=== PATIENT | female | born 1960 | race Caucasian/White ===

== ENCOUNTER 2023-08-13 06:57 | Inpatient (IN) | payer MEDICARE, MEDICAID, SELFPAY ==
[2023-08-13] VITALS (23 sets, daily range): BP systolic 108–165; BP diastolic 50–80; PULSE 79–137; RESP 19–30; TEMP 36.2–37.3; O2SAT 72–100; BMI 19.5; BMI 21.0
--- NOTE | ~2023-08-13 | CT_ITS ---
EXAMINATION: CT CHEST WITHOUT CONTRAST CLINICAL INFORMATION: Fever, increased white count. COMPARISON: None available. TECHNIQUE: Multidetector volumetric CT imaging of the chest was done. Axial MIP volume rendering provided. Sagittal and coronal reformatted images were obtained. This CT examination was performed using dose optimization techniques as appropriate, variously including the following: *Automated exposure control *Adjustment of mA and/or kV according to patient size (this includes techniques or standardized protocols for targeted exams where dose is matched to indication/reason for exam; i.e. extremities or head) *Use of iterative reconstruction technique DLP: 116 mGy-cm FINDINGS: FULL TIME STAFF INTERPRETER: Expanded lungs with bilateral pleural effusion and bilateral breast prosthesis. LUNGS: There is centrilobular emphysema most prominent in the upper lobes. There is scattered punctate calcifications in right lung. There is compressive atelectasis in both lung bases from underlying pleural effusion. MEDIASTINUM: Thyroid lobes are symmetric and normal. The central trachea and the bronchi widely patent. The heart size and the great vessels are normal caliber. No pericardial effusion seen. There is mitral valve and ascending aortic calcifications. CORONARY ARTERY CALCIFICATION: Mild coronary artery calcification present. PLEURA: There are bilateral moderate pleural effusions right greater than left with underlying atelectasis. AXILLA: No lymphadenopathy. There are bilateral breast prostheses with thick calcified capsule. UPPER ABDOMEN: Visualized liver, spleen, pancreas and bilateral adrenal glands unremarkable. OSSEOUS STRUCTURES: There are several osteoporotic deformities of thoracic vertebra with mild superior endplate edema of T2 vertebra likely acute compression. CT/CT chest wo IV con IMPRESSION: 1. Bilateral moderate pleural effusions right greater than left with underlying compressive atelectasis. 2. Centrilobular emphysema with scattered punctate calcifications in right lung. 3. No abnormal mediastinal or axillary lymphadenopathy. 4. Bilateral breast prostheses with thick calcified capsule. Fleischner guidelines were followed.
--- NOTE | ~2023-08-13 | XR_ITS ---
EXAMINATION: XR CHEST CLINICAL INFORMATION: Dyspnea COMPARISON: None available. TECHNIQUE: Frontal view of the chest was obtained. FINDINGS: Bilateral intramammary implants are present limiting the evaluation in the lower lung zones. There are no pertinent prior studies are available for comparison. Cardiomediastinal silhouette is not well assessed. Probable mild cardiomegaly. The lungs are hypoexpanded. Diffuse reticular interstitial markings are noted, indeterminate chronicity. No dense focal consolidation is seen. No pneumothorax. Multiple cardiac leads and wires overlie the chest. XR/XR chest 1V IMPRESSION: Somewhat limited evaluation. Diffuse reticular and interstitial prominence could be acute or chronic. In the acute setting findings may represent interstitial edema or interstitial pneumonitis. In the chronic settings, findings may reflect changes related to interstitial lung disease.
--- NOTE | 2023-08-13 07:00 | CA_ITS ---
Transthoracic Echocardiogram Patient (Last, First, Middle): Frances Wells, Gender: Female Date of : 1960 Age: 62 Procedure Date: 08/13/2023 Procedure Type: Transthoracic Echocardiogram Location: ICU Height: 152.4 cm Weight: 45.36 kg BSA: 1.39 m2 Heart Rate: bpm BP: 143 / 59 mmHg Cottage Attendant: Referring MD: Vimal Armendariz MD Symptoms: Congestive heart failure Study Quality: Fair but Adequate ECG Rhythm: Atrial Fibrillation Conclusions: - Normal left ventricular size, thickness, and systolic function. The visually estimated ejection fraction is between 60-65%. - Normal right ventricular cavity size. There is mildly decreased right ventricular systolic function. - The left atrium is severely dilated. - There is moderate aortic valve regurgitation. - There is moderate mitral valve regurgitation. - The right ventricular systolic pressure is 62 mmHg. Normal right atrial pressure. Severe pulmonary hypertension is present. Findings Left Ventricle Normal left ventricular size, thickness, and systolic function. The visually estimated ejection fraction is between 60-65%. There is no evidence of regional wall motion abnormalities. Diastolic function is indeterminate on the basis of available data. Right Ventricle Normal right ventricular cavity size. There is mildly decreased right ventricular systolic function. Atria The left atrium is severely dilated. Aortic Valve There is a normal trileaflet aortic valve. There is no aortic valve stenosis. There is moderate aortic valve regurgitation. Mitral Valve The mitral valve appears normal. There is moderate mitral valve regurgitation. There is no mitral valve stenosis. Pulmonic Valve The pulmonic valve is likely normal. Tricuspid Valve Normal tricuspid valve structure. There is mild tricuspid valve regurgitation. The right ventricular systolic pressure is 62 mmHg. Normal right atrial pressure. Severe pulmonary hypertension is present. Great Vessels All visible segments of the aorta are normal in size. The visualized portions of the pulmonary artery and branches are normal. Venous The inferior vena cava is normal in size and collapses greater than 50% with inspiration. Pericardium/Pleural There is no evidence of pericardial effusion. Prior Study Comparison No prior study available for comparison. Measurements 2D Linear Measurements IVSd: 0.84 0.6-0.9/0.6-1.0 cm LVIDd: 4.69 3.9-5.3/4.2-5.9 cm LVIDd Index: 3.37 2.4-3.2/2.2-3.1 cm/m2 LVIDs: 3.39 2.0-3.6 cm LVPWd: 0.84 0.7-1.1 cm Ao Root: 2.60 2.1-3.5 cm LA Diam: 4.80 2.7-3.8/3.0-4.0 cm LAIDs Index: 3.45 1.5-2.3 cm/m2 LV Mass: 161.78 67-162/88-224 g LV Mass Index: 116.39 43-95/49-115 g/m2 LVOT Diam: 1.90 3.0+(-)1.3 cm 2D Systolic Function EF 4C: 63.10 >55% EF 2C: 69.30 >55% EF BiP: 65.90 >55% Mitral Valve MV Pk E: 1.27 MV Decel Time: 211.00 E'Lateral: 8.92 E'Medial: 6.53 E/E' Med: 19.40 E/E' Lat: 14.20 PHT: 62.00 MVA PHT: 3.55 Decel Nolan: 6.02 Aortic Valve AoV Pk Luis: 1.67 AoV Mn Luis: 1.08 AoV VTI: 0.30 AoV Pk Grad: 11.00 Aov Mn Grad: 6.00 ELIZA Cont.VTI: 1.66 AI Pk Luis: 4.00 AI Nolan: 3.37 LVOT LVOT Pk Luis: 0.87 LVOT Mn Luis: 0.52 LVOT VTI: 0.18 LVOT Pk Grad: 3.00 LVOT Mn Grad: 1.00 LVOT Diam: 1.90 LVOT Area: 2.84 Diastolic Function MV Pk E: 1.27 E'Medial: 6.53 E/E' Med: 19.40 E' Laterial: 8.92 E/E' Lat: 14.20 Right Ventricle TAPSE (mm): 19.00 TVS' Luis: 9.00 Tricuspid Valve TR Pk Luis: 3.66 TR Pk Grad: 54.00 RA Press: 8.00 RVSP: 62.00 Great Vessels Aorta Ao Root-2D: 2.60 2.0-3.7 cm Ao Asc: 3.10 2.1-3.4 cm Pulmonary Valve PV Pk Luis: 0.99 Peak PV Grad: 4.00 Updated in Other Vendor System with Status of Final Estevan Aiken MD electronically signed on 08/14/2023 12:57:43 PM with status of Final
--- NOTE | 2023-08-13 07:08 | ECG_ITS ---
Test Reason : dyspnea Blood Pressure : / mmHG Vent. Rate : 095 BPM Atrial Rate : 000 BPM P-R Int : 000 ms QRS Dur : 094 ms QT Int : 352 ms P-R-T Axes : 000 047 213 degrees QTc Int : 442 ms Atrial fibrillation RSR' or QR pattern in V1 suggests right ventricular conduction delay ST & T wave abnormality, consider inferolateral ischemia Abnormal ECG No previous ECGs available Referred By: Aleksander Mckeon Electronically Signed By:MUNIR PRATHER MD
--- NOTE | 2023-08-13 07:11 | ED.SOB ---
HPI - SOB/Dyspnea General Chief Complaint: Upper Respiratory Symptoms Stated Complaint: RESPIRATORY DISTRESS Time Seen by Provider: 08/13/23 07:05 Source: EMS and RN notes reviewed Mode of arrival: ambulatory Limitations: altered mental status History of Present Illness HPI Narrative: 62-year-old female never been to this hospital in the past presents to the emergency department via EMS in respiratory distress. Patient is on CPAP. Per EMS patient is a full code he is at the her nursing facility due to respiratory failure. Per the EMS patient has history of COPD was given some breathing treatments and CPAP EN route. Breathing rate did slow down but continues to difficulty breathing on arrival here there are no previous records reviewed the only report we have from the residential is that she is a full code. Patient is unable to give us any history she is grabbing the mask is otherwise out of it. MD elicited complaint: shortness of breath Related Data Allergies Allergy/AdvReac Type Severity Reaction Status Date / Time codeine Allergy Intermediate Anaphylaxis Unverified 08/13/23 07:06 Review of Systems Review of Systems: Unable to obtain Yes Unobtainable due to mental condition [facility] Social History Social History Advance Directives: No Physical Exam Vital Signs: Vital Signs: Last Vital Signs Temp 99.1 F 08/13/23 07:02 Pulse 120 H 08/13/23 10:31 Resp 22 H 08/13/23 10:31 BP 129/50 L 08/13/23 10:31 Pulse Ox 90 L 08/13/23 10:31 O2 Del Method Nasal Cannula 08/13/23 10:31 O2 Flow Rate 2 08/13/23 10:31 FiO2 30 08/13/23 09:18 BMI result Body Mass Index 19.5 General: Thin ill-appearing moderate to severe signs of distress HEENT: Normocephalic atraumatic Neck: No signs of JVD, no masses no tenderness or lymphadenopathy Cardiovascular: Regular rate and rhythm Respiratory: Clear to auscultation bilaterally Abdomen: Soft nontender no masses Extremities: Normal pedal pulses no signs of edema Skin: Dry warm no rashes Back: No tenderness full ROM Skin: Other: Course Course Course Narrative: Patient are not dramatically after approximately 30 minutes patient continues to look better multiple re-evaluations of 1 hour initial ABG showed pCO2 of 100 again her repeat ABG on consult the ICU. Patient does have a history of CHF which was not disclose when patient arrived here I will give dose of Lasix patient's labs are still pending at this time. Patinet continued to improve repeat ABG is improved. Accepted by the hospitalist service. Medications Administered Discontinued Medications Generic Name Dose Route Start Last Admin Trade Name Juana PRN Reason Stop Dose Admin Albuterol Sulfate 10 mg 08/13/23 07:08 08/13/23 07:49 Albuterol Sulfate 2.5 Mg/0.5 Ml Vial.Neb INHALE 08/13/23 07:09 Not Given ONCE ONE Albuterol Sulfate 7.5 mg/ 10 mg 08/13/23 07:41 08/13/23 07:48 Albuterol Sulfate 2.5 mg INHALE 08/13/23 07:42 10 mg ONCE ONE Administration Furosemide 40 mg 08/13/23 08:15 08/13/23 09:07 Furosemide 40 Mg/4 Ml Vial IVPUSH 08/13/23 08:16 40 mg ONCE ONE Administration Protocol Vancomycin HCl 1,000 mg/ 270 mls @ 270 mls/hr 08/13/23 07:37 08/13/23 09:18 Sodium Chloride IV 08/13/23 08:36 270 mls/hr ONCE ONE Administration Cefepime HCl 1 gm/ Sodium 50 mls @ 100 mls/hr 08/13/23 07:37 08/13/23 08:23 Chloride IV 08/13/23 08:06 100 mls/hr ONCE ONE Administration Methylprednisolone Sodium Succinate 125 mg 08/13/23 07:08 08/13/23 07:38 Methylprednisolone Sod Succ 125 Mg/2 Ml Vial IVPUSH 08/13/23 07:09 125 mg ONCE ONE Administration Medical Decision Making Medical Decision Making [facility] Narrative: I will continue patient on BiPAP immediately on arrival again the region repeat ABG after 40 minutes patient is awake enough to grab at the mask Differential Diagnosis Differential Diagnoses: The differential diagnosis associated with the presentation includes COPD CHF respiratory failure concerns for dyspnea hypoxia altered mental status Admission/Observation Consideration of admission/observation: Escalation of care including admission/observation considered patient required ICU level care at a minimum Will need to be admitted. Consult Healthcare Provider Management of the patient was discussed with: Hospitalist and Fan Balancer I spoke Lab Data [facility] Lab Attestation statement: I reviewed the patient's lab results. 08/13/23 08:42 08/13/23 08:05 Labs: Lab Results 08/13/23 08/13/23 08/13/23 Range/Units 07:23 07:45 08:05 WBC (4.8-10.8) X10*3/uL RBC (4.20-5.50) X10*6/uL Hgb (12.0-16.0) g/dl Hct (37.0-47.0) % MCV (80.0-98.0) fL MCH (27.0-33.0) pg MCHC (31.0-35.0) g/dl RDW (11.0-16.0) % Plt Count (160-400) X10*3/uL MPV (9.4-12.3) fL Immature Gran % (Auto) Neut % (Auto) Lymph % (Auto) [place] % (Auto) Eos % (Auto) Baso % (Auto) Lymph # (Auto) [place] # (Auto) Eos # (Auto) Baso # (Auto) Abs Immat Gran (auto) Absolute Neuts (auto) Absolute Nucleated RBC (0.0-0.012) X10*3/uL Nucleated RBC % (auto) (0.0-0.2) /100WBC Neutrophils % (Manual) (45-73) % Band Neutrophils % (3-5) % Lymphocytes % (Manual) (20-40) % Atypical Lymphs % (Man) (0-6) % Monocytes % (Manual) (2-11) % Metamyelocytes % % Myelocytes % % Abs Neuts (Manual) (2.0-8.3) X10*3/uL Lymphocytes # (Manual) (1.2-4.9) X10*3/uL Atyp Lymphs # (Manual) x10*3/uL Monocytes # (Manual) (0.1-1.2) X10*3/uL Metamyelocytes # X10*3/uL Myelocytes # X10*/uL Platelet Estimate (NORMAL) Plt Morphology Comment RBC Morphology Polychromasia /OIF Macrocytosis /OIF Ovalocytes /OIF [place] Cells /OIF Acanthocytes (Spur) /OIF APTT (26.0-36.4) SEC O2 Saturation 100.0 % ABG pH at Pt Temp 7.27 L (7.35-7.45) ABG pCO2 at Pt Temp 107 H* (32-45) mmHg ABG pO2 at Pt Temp 274 H (83-108) mmHg ABG HCO3 49 H (22-26) mmol/L ABG Base Excess (Actual) 17.8 mmol/L Sodium 135 (135-145) mmol/L Potassium 3.7 (3.3-5.1) mmol/L Chloride 87 L (96-108) mmol/L Carbon Dioxide 39 H (22-29) mmol/L Anion Gap 13 (12-20) BUN 9 (9-16) mg/dL Creatinine 0.52 (0.5-1.4) mg/dL Estim Creat Clear Calc 78.2 Estimated GFR > 60 Random Glucose 166 H (60-115) mg/dL Lactic Acid 0.9 (0.5-2.0) mmol/L Calcium 9.1 (8.4-10.2) mg/dL Total Bilirubin 0.6 (0.0-1.0) mg/dL Direct Bilirubin 0.3 (0.0-0.5) mg/dL AST 17 (5-31) U/L ALT 15 (0-31) U/L Alkaline Phosphatase 111 (39-117) U/L Troponin I High Sens 13.5 (<3.5-17.0) ng/L B-Natriuretic Peptide (<100) pg/mL Total Protein 5.7 L (6.5-8.0) g/dL Albumin 3.3 L (3.5-5.0) g/dL Lipase 7 L (8-78) U/L Influenza Type A (PCR) NEGATIVE (Negative) Influenza Type B (PCR) NEGATIVE (Negative) RSV RNA Qual (PCR) NEGATIVE (Negative) SARS-CoV-2 RNA (RT-PCR) NEGATIVE (Negative) 08/13/23 08/13/23 Range/Units 08:42 10:56 WBC 16.8 H (4.8-10.8) X10*3/uL RBC 3.37 L (4.20-5.50) X10*6/uL Hgb 10.1 L (12.0-16.0) g/dl Hct 32.6 L (37.0-47.0) % MCV 96.7 (80.0-98.0) fL MCH 30.0 (27.0-33.0) pg MCHC 31.0 (31.0-35.0) g/dl RDW 13.6 (11.0-16.0) % Plt Count 365 (160-400) X10*3/uL MPV 9.3 L (9.4-12.3) fL Immature Gran % (Auto) Cancelled Neut % (Auto) Cancelled Lymph % (Auto) Cancelled [place] % (Auto) Cancelled Eos % (Auto) Cancelled Baso % (Auto) Cancelled Lymph # (Auto) Cancelled [place] # (Auto) Cancelled Eos # (Auto) Cancelled Baso # (Auto) Cancelled Abs Immat Gran (auto) Cancelled Absolute Neuts (auto) Cancelled Absolute Nucleated RBC 0.000 (0.0-0.012) X10*3/uL Nucleated RBC % (auto) 0.0 (0.0-0.2) /100WBC Neutrophils % (Manual) 77 H (45-73) % Band Neutrophils % 14 H (3-5) % Lymphocytes % (Manual) 4 L (20-40) % Atypical Lymphs % (Man) 1 (0-6) % Monocytes % (Manual) 2 (2-11) % Metamyelocytes % 1 % Myelocytes % 1 % Abs Neuts (Manual) 15.3 H (2.0-8.3) X10*3/uL Lymphocytes # (Manual) 0.7 L (1.2-4.9) X10*3/uL Atyp Lymphs # (Manual) 0.2 x10*3/uL Monocytes # (Manual) 0.3 (0.1-1.2) X10*3/uL Metamyelocytes # 0.2 X10*3/uL Myelocytes # 0.2 X10*/uL Platelet Estimate NORMAL (NORMAL) Plt Morphology Comment NORMAL RBC Morphology NOTED Polychromasia 3+ (>5) /OIF Macrocytosis 1+ (5-14) /OIF Ovalocytes 1+ (5-14) /OIF Taylor Cells 1+ (0-2) /OIF Acanthocytes (Spur) 1+ (0-2) /OIF APTT 26.9 (26.0-36.4) SEC O2 Saturation 87.0 % ABG pH at Pt Temp 7.50 H (7.35-7.45) ABG pCO2 at Pt Temp 67 H* (32-45) mmHg ABG pO2 at Pt Temp 57 L (83-108) mmHg ABG HCO3 52 H (22-26) mmol/L ABG Base Excess (Actual) 25.0 mmol/L Sodium (135-145) mmol/L Potassium (3.3-5.1) mmol/L Chloride (96-108) mmol/L Carbon Dioxide (22-29) mmol/L Anion Gap (12-20) BUN (9-16) mg/dL Creatinine (0.5-1.4) mg/dL Estim Creat Clear Calc Estimated GFR Random Glucose (60-115) mg/dL Lactic Acid (0.5-2.0) mmol/L Calcium (8.4-10.2) mg/dL Total Bilirubin (0.0-1.0) mg/dL Direct Bilirubin (0.0-0.5) mg/dL AST (5-31) U/L ALT (0-31) U/L Alkaline Phosphatase (39-117) U/L Troponin I High Sens (<3.5-17.0) ng/L B-Natriuretic Peptide 723 H (<100) pg/mL Total Protein (6.5-8.0) g/dL Albumin (3.5-5.0) g/dL Lipase (8-78) U/L Influenza Type A (PCR) (Negative) Influenza Type B (PCR) (Negative) RSV RNA Qual (PCR) (Negative) SARS-CoV-2 RNA (RT-PCR) (Negative) ABG Data ABG Results: Patient will 14 with pCO2 of 107 though this is fairly compensated she likely has some chronic elevation in her pCO2 I do not think it will ever be normal as her pH is 7.2 Attestation ABG: I personally reviewed and interpreted this ABG as follows: Independent Interpretation I performed an independent interpretation of an: EKG, Rhythm Strip and Plain X-Ray Interpretation: XR concerning for pneumonia vs bronchectesis I will give some cefepime and vancomycin. Radiology Impression Discussion of test interpretation with radiology: I have reviewed the radiologist's reading. External Record Review there are no previous records to review Critical Care Time Critical Care Time Critical Care Time: Yes Total Critical Care Time: 50 Attestation: concern for respiratory distress with acute on chronic hypercarbic respiratory failure patient did improve on BiPAP. Multiple conversations with ICU Dr. Armendariz and repeat ABG Discharge Plan Discharge Clinical Impression: Acute respiratory failure with hypoxia and hypercarbia, Acute exacerbation of chronic obstructive pulmonary disease, Acute exacerbation of CHF (congestive heart failure), Decubitus ulcer of back, stage 3 Patient Disposition: Admitted As Inpatient
[2023-08-13 07:27] LABS: ABG Base Excess 17.8 mmol/L; ABG HCO3 49 mmol/L (22-26); ABG pCO2 107 mmHg (32-45); ABG pH 7.27 (7.35-7.45); ABG pO2 274 mmHg (83-108)
[2023-08-13] MEDS: methylPREDNISolone Sod Succ 125 MG/2 ML VIAL IVPUSH (07:38)
[2023-08-13] MEDS: Albuterol Sulfate 7.5 MG, Albuterol Sulfate (0.083%) 2.5 MG 10 MG INHALE (07:48)
[2023-08-13] MEDS: cefEPime HCl 1 GM in 0.9 % Sodium Chloride 50 ML IV (08:23)
[2023-08-13 08:28] LABS: Lactic Acid 0.9 mmol/L (0.5-2.0)
[2023-08-13 08:29] LABS: Alanine Aminotransferase 15 U/L (0-31); Albumin Level 3.3 g/dL (3.5-5.0); Alkaline Phosphatase 111 U/L (39-117); Anion Gap 13 (12-20); Aspartate Amino Transferase 17 U/L (5-31); Bilirubin Direct 0.3 mg/dL (0.0-0.5); Bilirubin Total 0.6 mg/dL (0.0-1.0); Blood Urea Nitrogen 9 mg/dL (9-16); Calcium 9.1 mg/dL (8.4-10.2); Carbon Dioxide 39 mmol/L (22-29); Chloride 87 mmol/L (96-108); Creatinine Clr Calc Pharmacy 78.2; Estimated Glomerular Filt Rate > 60; Glucose Random 166 mg/dL (60-115); Lipase 7 U/L (8-78); Potassium 3.7 mmol/L (3.3-5.1); Sodium 135 mmol/L (135-145); Total Protein 5.7 g/dL (6.5-8.0)
[2023-08-13 08:36] LABS: Troponin-I High Sensitivity 13.5 ng/L (<3.5-17.0)
[2023-08-13 08:50] LABS: Hematocrit 32.6 % (37.0-47.0); Hemoglobin 10.1 g/dl (12.0-16.0); Mean Corpuscular Volume 96.7 fL (80.0-98.0); Mean Platelet Volume 9.3 fL (9.4-12.3); Platelet Count 365 X10*3/uL (160-400); Red Blood Count 3.37 X10*6/uL (4.20-5.50); Red Cell Distribution Width 13.6 % (11.0-16.0); White Blood Count 16.8 X10*3/uL (4.8-10.8)
[2023-08-13 08:52] LABS: Influenza A PCR NEGATIVE (Negative); Influenza B PCR NEGATIVE (Negative); Resp Syncy Virus RNA Qual PCR NEGATIVE (Negative); SARS COV2 PCR INHOUSE NEGATIVE (Negative)
[2023-08-13 08:57] LABS: Partial Thromboplastin Time 26.9 SEC (26.0-36.4)
[2023-08-13] MEDS: Furosemide 40 MG/4 ML VIAL IVPUSH (09:07)
[2023-08-13] MEDS: vancomycin HCL 1,000 MG in 0.9 % Sodium Chloride 250 ML 270 MG IV (09:18)
[2023-08-13 09:20] LABS: B Type Natriuretic Peptide 723 pg/mL (<100)
[2023-08-13 09:43] LABS: Atypical Lymph Absolute Manual 0.2 x10*3/uL; Atypical Lymphs Percent Manual 1 % (0-6); Lymphocytes Absolute Manual 0.7 X10*3/uL (1.2-4.9); Lymphocytes Percent Manual 4 % (20-40); Metamyelocytes Absolute 0.2 X10*3/uL; Metamyelocytes Percent 1 %; Monocytes Absolute Manual 0.3 X10*3/uL (0.1-1.2); Monocytes Percent Manual 2 % (2-11); Myelocytes Absolute 0.2 X10*/uL; Myelocytes Percent 1 %; Neutrophils Absolute Manual 15.3 X10*3/uL (2.0-8.3); Neutrophils Percent Manual 77 % (45-73)
[2023-08-13 09:46] LABS: Acanthocytes 1+ (0-2) /OIF; Burr Cells 1+ (0-2) /OIF; Macrocytosis 1+ (5-14) /OIF; Ovalocytes 1+ (5-14) /OIF; Platelet Estimate NORMAL (NORMAL); Platelet Morphology Comment NORMAL; Polychromasia 3+ (>5) /OIF; RBC Morphology NOTED
[2023-08-13 09:50] LABS: Band Neutrophils Percent 14 % (3-5)
--- NOTE | 2023-08-13 09:53 | PC.NURSE ---
alert, denies sob, eating a sandwich, pudding and her ensure, afib on monitor, spo2 88 on 6lpm nc
--- NOTE | 2023-08-13 10:29 | PC.NURSE ---
afib on monitor. alert spo2 went up to 99% on the 6lpm and reduced to 2 lpm w spo2 now at 90%, vp scientific affairs to bedside and will repeat abg and make decision on admitting unit
[2023-08-13 10:44] LABS: ABG Refer to POC result
--- NOTE | 2023-08-13 10:49 | PC.NURSE ---
pt spo2 goes down with minimal movement or when eating currently with nad, repeat abg being done now
[2023-08-13 11:03] LABS: ABG HCO3 52 mmol/L (22-26); ABG pCO2 67 mmHg (32-45); ABG pO2 57 mmHg (83-108)
--- NOTE | 2023-08-13 12:05 | PM.CCN ---
Critical Care Event Note Summary Date of Service: 08/13/23 Code activated: No Narrative: 62 y/o been evaluated in ER with dyspnea and hypoxia. Initially with iatrogenic hyperoxia induced hypercapnia, resolved with brief bipap support (now titrated off) and maintaining O2 saturation at 88-92%. Also, with significant exacerbation of underlying congestive heart failure with elevated BNP, requiring further diuresis with acetazolamide, as patient is a chronic CO2 retainer. At this time patient does not require intensive care level of service. Please notify for re-evaluation if patient's condition changes. Please maintain O2 saturation at 88-92% range, no higher than 92%. Critical Care Time (minutes): 0
--- NOTE | 2023-08-13 12:32 | P.HPHOSP_ITS ---
History of Present Illness Date of Service: 08/13/23 Attending physician on admission: Abraham Gupta Chief Complaint: sob 62-year-old female with history of COPD and osteoporosis who is a former smoker who recently quit smoking cigarettes about 2 months ago presented to the ED earlier today for evaluation of dyspnea ongoing for about 3-4 days. She states for about 1 week she has had subjective fevers and chills with sore throat. Has productive cough with yellow sputum production but states this is her baseline. About 3-4 days ago developed worsening shortness of breath, dyspnea with exertion and orthopnea. [facility] Medical History (Updated 08/13/23 @ 12:52 by CHEPE Cruz) COPD (chronic obstructive pulmonary disease) Osteoporosis Social History Advance Directives: No Meds Allergies Allergy/AdvReac Type Severity Reaction Status Date / Time codeine Allergy Intermediate Anaphylaxis Unverified 08/13/23 07:06 Active Medications: Current Medications Albuterol/Ipratropium (Albuterol/Iprat 2.5/0.5mg 3 Ml Ampul.Neb) 3 ml INHALE RQ6H WHILE AWAKE PENDING SALE TO [facility] Heparin Sodium (Porcine) (Heparin Sodium,Porcine 5,000 Unit/Ml Vial) 5,000 unit SUBCUT Q8H PENDING SALE TO [facility] Home Medications Medication Instructions Recorded Confirmed Last Taken Type acetaminophen 325 mg tablet 650 mg PO Q6H PRN temp > 08/13/23 08/13/23 Unknown History 100/general discomfort apixaban 5 mg tablet 5 mg PO BID 08/13/23 08/13/23 Unknown History aspirin 81 mg tablet,delayed 81 mg PO DAILY 08/13/23 08/13/23 Unknown History release atorvastatin 20 mg tablet 20 mg PO BEDTIME 08/13/23 08/13/23 Unknown History bisacodyl 10 mg rectal suppository 10 mg DC Q3D PRN Constipation 08/13/23 08/13/23 Unknown History (Dulcolax (bisacodyl)) cholecalciferol (vitamin D3) 25 25 mcg PO DAILY 08/13/23 08/13/23 Unknown History mcg (1,000 unit) tablet digoxin 250 mcg (0.25 mg) tablet 250 mcg PO DAILY 08/13/23 08/13/23 Unknown History diltiazem HCl 180 mg 180 mg PO DAILY 08/13/23 08/13/23 Unknown History tablet,extended release 24 hr (Cardizem LA) fluticasone 250 mcg-salmeterol 50 1 inh inhalation BID 08/13/23 08/13/23 Unknown History mcg/dose blistr powdr for inhalation (Advair Diskus) folic acid 1 mg tablet 1 mg PO DAILY 08/13/23 08/13/23 Unknown History furosemide 40 mg tablet 40 mg PO DAILY 08/13/23 08/13/23 Unknown History gabapentin 300 mg capsule 600 mg PO TID 08/13/23 08/13/23 Unknown History guaifenesin 100 mg/5 mL oral liquid 200 mg PO Q8H PRN Cough 08/13/23 08/13/23 Unknown History hydroxyzine HCl 10 mg tablet 30 mg PO TID PRN Anxiety 08/13/23 08/13/23 Unknown History ipratropium 0.5 mg-albuterol 3 mg 3 ml inhalation Q6H PRN SHORTNESS 08/13/23 08/13/23 Unknown History (2.5 mg base)/3 mL nebulization OF BREATH/WHEEZE soln lactulose 10 gram/15 mL oral 20 g PO Q12H PRN Constipation 08/13/23 08/13/23 Unknown History solution lorazepam 0.5 mg tablet 0.5 mg PO BID PRN Anxiety 08/13/23 08/13/23 Unknown History magnesium hydroxide 400 mg/5 mL 30 ml PO BEDTIME PRN Constipation 08/13/23 08/13/23 Unknown History oral suspension (Milk of Magnesia) melatonin 3 mg tablet 3 mg PO BEDTIME 08/13/23 08/13/23 Unknown History metoprolol succinate 50 mg 50 mg PO BID 08/13/23 08/13/23 Unknown History tablet,extended release 24 hr sodium phosphates 19 gram-7 118 ml DC DAILY PRN Constipation 08/13/23 08/13/23 Unknown History gram/118 mL enema (Fleet Enema) umeclidinium 62.5 mcg/actuation 1 inh inhalation DAILY 08/13/23 08/13/23 Unknown History blister powder for inhalation (Incruse Ellipta) Physical Exam 2 Vital Signs and Narrative: Vital Signs: Last Vital Signs Temp 97.6 F 08/13/23 11:57 Pulse 107 H 08/13/23 11:57 Resp 22 H 08/13/23 12:17 BP 143/59 H 08/13/23 11:57 Pulse Ox 93 08/13/23 11:57 O2 Del Method Nasal Cannula 08/13/23 11:57 O2 Flow Rate 5 08/13/23 11:57 FiO2 30 08/13/23 09:18 BMI result Body Mass Index 19.5 Results Labs 08/13/23 08:42 08/13/23 08:05 Labs: Laboratory Results - last 24 hr 08/13/23 08/13/23 08/13/23 07:23 07:45 08:05 MCV MCH MCHC RDW Plt Count MPV Immature Gran % (Auto) Neut % (Auto) Lymph % (Auto) [place] % (Auto) Eos % (Auto) Baso % (Auto) Lymph # (Auto) [place] # (Auto) Eos # (Auto) Baso # (Auto) Abs Immat Gran (auto) Absolute Neuts (auto) Absolute Nucleated RBC Nucleated RBC % (auto) Neutrophils % (Manual) Band Neutrophils % Lymphocytes % (Manual) Atypical Lymphs % (Man) Monocytes % (Manual) Metamyelocytes % Myelocytes % Abs Neuts (Manual) Lymphocytes # (Manual) Atyp Lymphs # (Manual) Monocytes # (Manual) Metamyelocytes # Myelocytes # Platelet Estimate Plt Morphology Comment RBC Morphology Polychromasia Macrocytosis Ovalocytes Taylor Cells Acanthocytes (Spur) APTT O2 Saturation 100.0 ABG pH at Pt Temp 7.27 L ABG pCO2 at Pt Temp 107 H* ABG pO2 at Pt Temp 274 H ABG HCO3 49 H ABG Base Excess (Actual) 17.8 Anion Gap 13 Estim Creat Clear Calc 78.2 Estimated GFR > 60 Random Glucose 166 H Lactic Acid 0.9 Calcium 9.1 Total Bilirubin 0.6 Direct Bilirubin 0.3 AST 17 ALT 15 Alkaline Phosphatase 111 B-Natriuretic Peptide Total Protein 5.7 L Albumin 3.3 L Lipase 7 L Influenza Type A (PCR) NEGATIVE Influenza Type B (PCR) NEGATIVE RSV RNA Qual (PCR) NEGATIVE SARS-CoV-2 RNA (RT-PCR) NEGATIVE 08/13/23 08/13/23 08:42 10:56 MCV 96.7 MCH 30.0 MCHC 31.0 RDW 13.6 Plt Count 365 MPV 9.3 L Immature Gran % (Auto) Cancelled Neut % (Auto) Cancelled Lymph % (Auto) Cancelled [place] % (Auto) Cancelled Eos % (Auto) Cancelled Baso % (Auto) Cancelled Lymph # (Auto) Cancelled [place] # (Auto) Cancelled Eos # (Auto) Cancelled Baso # (Auto) Cancelled Abs Immat Gran (auto) Cancelled Absolute Neuts (auto) Cancelled Absolute Nucleated RBC 0.000 Nucleated RBC % (auto) 0.0 Neutrophils % (Manual) 77 H Band Neutrophils % 14 H Lymphocytes % (Manual) 4 L Atypical Lymphs % (Man) 1 Monocytes % (Manual) 2 Metamyelocytes % 1 Myelocytes % 1 Abs Neuts (Manual) 15.3 H Lymphocytes # (Manual) 0.7 L Atyp Lymphs # (Manual) 0.2 Monocytes # (Manual) 0.3 Metamyelocytes # 0.2 Myelocytes # 0.2 Platelet Estimate NORMAL Plt Morphology Comment NORMAL RBC Morphology NOTED Polychromasia 3+ (>5) Macrocytosis 1+ (5-14) Ovalocytes 1+ (5-14) [place] Cells 1+ (0-2) Acanthocytes (Spur) 1+ (0-2) APTT 26.9 O2 Saturation 87.0 ABG pH at Pt Temp 7.50 H ABG pCO2 at Pt Temp 67 H* ABG pO2 at Pt Temp 57 L ABG HCO3 52 H ABG Base Excess (Actual) 25.0 Anion Gap Estim Creat Clear Calc Estimated GFR Random Glucose Lactic Acid Calcium Total Bilirubin Direct Bilirubin AST ALT Alkaline Phosphatase B-Natriuretic Peptide 723 H Total Protein Albumin Lipase Influenza Type A (PCR) Influenza Type B (PCR) RSV RNA Qual (PCR) SARS-CoV-2 RNA (RT-PCR) Imaging Radiologist's Impressions: Impressions Chest X-Ray 08/13/23 07:33 IMPRESSION: Somewhat limited evaluation. Diffuse reticular and interstitial prominence could be acute or chronic. In the acute setting findings may represent interstitial edema or interstitial pneumonitis. In the chronic settings, findings may reflect changes related to interstitial lung disease. Assessment and Plan Time Spent With Patient Time: Total time managing care of this patient today ____ minutes. Quality VTE VTE Risk Level:: Medical - moderate - high VTE Device Contraindication: Treatment Not Indicated VTE Drug Contraindication: N/A - Med Ordered
[2023-08-13] MEDS: acetaZOLAMIDE sodium 500 MG VIAL IVPUSH (12:47)
--- NOTE | 2023-08-13 13:04 | PHA.MEDREC ---
Pharmacy Consult ? Medication Reconciliation Pharmacy has completed the medication reconciliation. Used list from [facility]
--- NOTE | 2023-08-13 14:21 | P.HPCC_ITS ---
History of Present Illness Date of Service: 08/13/23 Chief Complaint: Dyspnea 62-year-old lady with underlying COPD with CO2 retention on supplemental oxygen at 2 L, AFib/Aflutter on Eliquis diastolic heart failure compression fracture of thoracic vertebra admitted on 08/13/2023 with dyspnea and acute on chronic respiratory failure initially requiring BiPAP support. Patient has been admitted to intensive care unit and started on diuresis with acetazolamide. Patient now titrated off BiPAP support. Review of Systems 2 Constitutional: Constitutional: Denies daytime sleepiness, Denies excessive sweating, Denies fatigue, Denies fever(s), Denies lethargy, Denies malaise, Denies night sweats, Denies snoring and Denies weight loss Eyes: Eyes: Denies blurry vision and Denies itchy eyes ENT: Denies nasal congestion, Denies post nasal drip, Denies sinus pain, Denies sinus pressure and Denies other ( Thrush) Cardiovascular: Cardiovascular: Denies chest pain, Denies pedal edema, Reports dyspnea, Reports dyspnea on exertion, Denies orthopnea and Denies paroxysmal nocturnal dyspnea Respiratory: Respiratory: Denies cough, Denies hemoptysis, Denies excessive phlegm production, Reports dyspnea, Reports dyspnea on exertion, Denies snoring and Denies wheezing Gastrointestinal: Gastrointestinal: Denies abdominal pain and Denies heartburn Musculoskeletal: Musculoskeletal: Denies myalgias, Denies arthralgias and Denies joint swelling Integumentary/Breasts: Skin/Breast: Denies rash Neurologic: Denies memory loss and Denies seizure-like activity Psychiatric: Psychiatric: Denies abnormal sleep pattern, Denies anxiety and Denies memory loss Endocrine: Endocrine: Denies excessive sweating, Denies fatigue and Denies heat intolerance Hematologic/Lymphatic: Hematologic/Lymphatic: Denies easy bruising Allergic/Immunologic: Allergic/Immunologic: Denies itchy eyes, Denies seasonal rhinorrhea and Denies wheezing PMFSH Past Medical History Medical History (Updated 08/13/23 @ 14:43 by Vimal Armendariz MD) Oxygen dependent History of chronic carbon dioxide retention Compression fracture of thoracic vertebra Breast implant status CHF (congestive heart failure) Pressure ulcer COPD (chronic obstructive pulmonary disease) Osteoporosis Social History Social History Household Members: Other Housing: Jail Patient Tobacco Use Status: Former Tobacco user Tobacco use type: Cigarette Use of substances other than those prescribed or required for medical reasons: No Have you been hit, kicked, punched, or otherwise hurt by someone within the past year? If so, by whom?: No Do you feel safe in your current relationship?: Yes Is there a partner from a previous relationship who is making you feel unsafe now?: No Are you made to feel afraid or neglected: No Spiritual Healthcare Practices: n/a [facility] Practices: n/a Cultural Healthcare Practices: n/a Advance Directives: No Advance Directives Information Provided: Yes (MOLST ON FILE) Do you have thoughts of harming others: None Do you have a plan to hurt others: No Plan Recently lost weight without trying: Yes How much weight loss: Unsure Eating poorly because of decreased appetite: Yes Nutrition screen score: 5 Nutrition Risks: On aspiration precautions Patient : No : No Meds Allergies Allergy/AdvReac Type Severity Reaction Status Date / Time codeine Allergy Intermediate Anaphylaxis Verified 08/13/23 14:29 morphine Allergy Anaphylaxis Verified 08/13/23 14:21 Active Medications: Current Medications Albuterol/Ipratropium (Albuterol/Iprat 2.5/0.5mg 3 Ml Ampul.Neb) 3 ml INHALE RQ6H WHILE AWAKE [facility] Digoxin (Digoxin 0.25 Mg Tablet) 0.25 mg PO DAILY [facility] Diltiazem HCl (Diltiazem Hcl Cd 180 Mg Cap.Er.24h) 180 mg PO DAILY [facility]; Protocol Heparin Sodium (Porcine) (Heparin Sodium,Porcine 5,000 Unit/Ml Vial) 5,000 unit SUBCUT Q8H [facility] Home Medications Medication Instructions Recorded Confirmed Last Taken Type acetaminophen 325 mg tablet 650 mg PO Q6H PRN temp > 08/13/23 08/13/23 Unknown History 100/general discomfort albuterol sulfate 90 mcg/actuation 1 inh inhalation QID PRN Wheezing 08/13/23 08/13/23 Unknown History aerosol inhaler (Ventolin HFA) apixaban 5 mg tablet 5 mg PO BID 08/13/23 08/13/23 Unknown History aspirin 81 mg tablet,delayed 81 mg PO DAILY 08/13/23 08/13/23 Unknown History release atorvastatin 20 mg tablet 20 mg PO BEDTIME 08/13/23 08/13/23 Unknown History bisacodyl 10 mg rectal suppository 10 mg IN Q3D PRN Constipation 08/13/23 08/13/23 Unknown History (Dulcolax (bisacodyl)) cholecalciferol (vitamin D3) 25 25 mcg PO DAILY 08/13/23 08/13/23 Unknown History mcg (1,000 unit) tablet collagenase clostridium histo. 250 1 appl topical DAILY 08/13/23 08/13/23 Unknown History unit/gram topical ointment (Santyl) digoxin 250 mcg (0.25 mg) tablet 250 mcg PO DAILY 08/13/23 08/13/23 Unknown History diltiazem HCl 180 mg 180 mg PO DAILY 08/13/23 08/13/23 Unknown History tablet,extended release 24 hr (Cardizem LA) fluticasone 250 mcg-salmeterol 50 1 inh inhalation BID 08/13/23 08/13/23 Unknown History mcg/dose blistr powdr for inhalation (Advair Diskus) folic acid 1 mg tablet 1 mg PO DAILY 08/13/23 08/13/23 Unknown History furosemide 40 mg tablet 40 mg PO DAILY 08/13/23 08/13/23 Unknown History gabapentin 300 mg capsule 600 mg PO TID 08/13/23 08/13/23 Unknown History guaifenesin 100 mg/5 mL oral liquid 200 mg PO Q8H PRN Cough 08/13/23 08/13/23 Unknown History hydroxyzine HCl 10 mg tablet 30 mg PO TID PRN Anxiety 08/13/23 08/13/23 Unknown History ipratropium 0.5 mg-albuterol 3 mg 3 ml inhalation Q6H PRN SHORTNESS 08/13/23 08/13/23 Unknown History (2.5 mg base)/3 mL nebulization OF BREATH/WHEEZE soln lactulose 10 gram/15 mL oral 20 g PO Q12H PRN Constipation 08/13/23 08/13/23 Unknown History solution lorazepam 0.5 mg tablet 0.5 mg PO BID PRN Anxiety 08/13/23 08/13/23 Unknown History magnesium hydroxide 400 mg/5 mL 30 ml PO BEDTIME PRN Constipation 08/13/23 08/13/23 Unknown History oral suspension (Milk of Magnesia) melatonin 3 mg tablet 3 mg PO BEDTIME 08/13/23 08/13/23 Unknown History metoprolol succinate 50 mg 50 mg PO BID 08/13/23 08/13/23 Unknown History tablet,extended release 24 hr multivitamin 1 tab PO DAILY 08/13/23 08/13/23 Unknown History nicotine 21 mg/24 hr daily 1 patch transdermal DAILY 08/13/23 08/13/23 Unknown History transdermal patch oxycodone 5 mg tablet 2.5 mg PO Q6H PRN Pain 08/13/23 08/13/23 Unknown History pantoprazole 40 mg tablet,delayed 40 mg PO DAILY 08/13/23 08/13/23 Unknown History release (Protonix) sennosides 8.6 mg-docusate sodium 2 tab-cap PO BEDTIME 08/13/23 08/13/23 Unknown History 50 mg tablet (Senna Plus) sertraline 25 mg tablet 25 mg PO DAILY 08/13/23 08/13/23 Unknown History sodium phosphates 19 gram-7 118 ml IN DAILY PRN Constipation 08/13/23 08/13/23 Unknown History gram/118 mL enema (Fleet Enema) thiamine HCl (vitamin B1) 100 mg 100 mg PO DAILY 08/13/23 08/13/23 Unknown History tablet umeclidinium 62.5 mcg/actuation 1 inh inhalation DAILY 08/13/23 08/13/23 Unknown History blister powder for inhalation (Incruse Ellipta) Physical Exam 2 Vital Signs: Vital Signs: Last Vital Signs Temp 98.8 F 08/13/23 14:00 Pulse 118 H 08/13/23 14:00 Resp 21 H 08/13/23 14:00 BP 140/65 H 08/13/23 14:00 Pulse Ox 90 L 08/13/23 14:00 O2 Del Method Nasal Cannula 08/13/23 14:00 O2 Flow Rate 2 08/13/23 14:00 FiO2 30 08/13/23 12:51 BMI result Body Mass Index 21.0 Const: General: no acute distress and alert Nutritional Appearance: not obese Orientation/consciousness: Other orientation findings ( oriented) HEENT: Head: Yes atraumatic Eyes: General: appearance normal, both eyes and all related structures S clerae: sclerae normal EOM: EOMs intact bilaterally Neck: Neck: Yes supple Lymphatic: no lymphadenopathy noted Resp: Effort & Inspection: normal respiratory effort and no use of accessory muscles Auscultation: wheezes (Mild expiratory) Cardio: Rate: regular rate Rhythm: regular rhythm Heart sounds: no gallops, no murmurs and no rubs Skin: General skin exam: other ( warm) Extrem: General: No clubbing, No cyanosis and No edema Results Labs 08/13/23 08:42 08/13/23 08:05 Labs: Laboratory Results - last 24 hr 08/13/23 08/13/23 08/13/23 07:23 07:45 08:05 MCV MCH MCHC RDW Plt Count MPV Immature Gran % (Auto) Neut % (Auto) Lymph % (Auto) [place] % (Auto) Eos % (Auto) Baso % (Auto) Lymph # (Auto) [place] # (Auto) Eos # (Auto) Baso # (Auto) Abs Immat Gran (auto) Absolute Neuts (auto) Absolute Nucleated RBC Nucleated RBC % (auto) Neutrophils % (Manual) Band Neutrophils % Lymphocytes % (Manual) Atypical Lymphs % (Man) Monocytes % (Manual) Metamyelocytes % Myelocytes % Abs Neuts (Manual) Lymphocytes # (Manual) Atyp Lymphs # (Manual) Monocytes # (Manual) Metamyelocytes # Myelocytes # Platelet Estimate Plt Morphology Comment RBC Morphology Polychromasia Macrocytosis Ovalocytes Lindsay Cells Acanthocytes (Spur) APTT O2 Saturation 100.0 ABG pH at Pt Temp 7.27 L ABG pCO2 at Pt Temp 107 H* ABG pO2 at Pt Temp 274 H ABG HCO3 49 H ABG Base Excess (Actual) 17.8 Anion Gap 13 Estim Creat Clear Calc 78.2 Estimated GFR > 60 Random Glucose 166 H Lactic Acid 0.9 Calcium 9.1 Total Bilirubin 0.6 Direct Bilirubin 0.3 AST 17 ALT 15 Alkaline Phosphatase 111 B-Natriuretic Peptide Total Protein 5.7 L Albumin 3.3 L Lipase 7 L Influenza Type A (PCR) NEGATIVE Influenza Type B (PCR) NEGATIVE RSV RNA Qual (PCR) NEGATIVE SARS-CoV-2 RNA (RT-PCR) NEGATIVE 08/13/23 08/13/23 08:42 10:56 MCV 96.7 MCH 30.0 MCHC 31.0 RDW 13.6 Plt Count 365 MPV 9.3 L Immature Gran % (Auto) Cancelled Neut % (Auto) Cancelled Lymph % (Auto) Cancelled [place] % (Auto) Cancelled Eos % (Auto) Cancelled Baso % (Auto) Cancelled Lymph # (Auto) Cancelled [place] # (Auto) Cancelled Eos # (Auto) Cancelled Baso # (Auto) Cancelled Abs Immat Gran (auto) Cancelled Absolute Neuts (auto) Cancelled Absolute Nucleated RBC 0.000 Nucleated RBC % (auto) 0.0 Neutrophils % (Manual) 77 H Band Neutrophils % 14 H Lymphocytes % (Manual) 4 L Atypical Lymphs % (Man) 1 Monocytes % (Manual) 2 Metamyelocytes % 1 Myelocytes % 1 Abs Neuts (Manual) 15.3 H Lymphocytes # (Manual) 0.7 L Atyp Lymphs # (Manual) 0.2 Monocytes # (Manual) 0.3 Metamyelocytes # 0.2 Myelocytes # 0.2 Platelet Estimate NORMAL Plt Morphology Comment NORMAL RBC Morphology NOTED Polychromasia 3+ (>5) Macrocytosis 1+ (5-14) Ovalocytes 1+ (5-14) Lindsay Cells 1+ (0-2) Acanthocytes (Spur) 1+ (0-2) APTT 26.9 O2 Saturation 87.0 ABG pH at Pt Temp 7.50 H ABG pCO2 at Pt Temp 67 H* ABG pO2 at Pt Temp 57 L ABG HCO3 52 H ABG Base Excess (Actual) 25.0 Anion Gap Estim Creat Clear Calc Estimated GFR Random Glucose Lactic Acid Calcium Total Bilirubin Direct Bilirubin AST ALT Alkaline Phosphatase B-Natriuretic Peptide 723 H Total Protein Albumin Lipase Influenza Type A (PCR) Influenza Type B (PCR) RSV RNA Qual (PCR) SARS-CoV-2 RNA (RT-PCR) Imaging Radiologist's Impressions: Impressions Chest X-Ray 08/13/23 07:33 IMPRESSION: Somewhat limited evaluation. Diffuse reticular and interstitial prominence could be acute or chronic. In the acute setting findings may represent interstitial edema or interstitial pneumonitis. In the chronic settings, findings may reflect changes related to interstitial lung disease. Assessment and Plan (1) Acute respiratory failure with hypoxia and hypercarbia: Status: Acute (2) Acute exacerbation of chronic obstructive pulmonary disease: Status: Acute (3) Acute exacerbation of CHF (congestive heart failure): Status: Acute (4) Decubitus ulcer of back, stage 3: Status: Acute (5) Chronic a-fib: Status: Acute Plan Assessment: 62-year-old lady with underlying COPD, AFib, heart failure admitted with acute on chronic hypoxic and hypercapnic respiratory briefly requiring BiPAP support Plan: Neuro: No acute issues. Cardiac: Acute on chronic diastolic congestive heart failure. 2D echo is pending. Improving with diuresis. Underlying AFib, continue rate control with digoxin and Cardizem. Hold metoprolol. Continue anticoagulation. Pulmonary: Acute on chronic hypoxic hypercapnic respiratory failure empirically requiring BiPAP support, now titrated off. Underlying advanced COPD. Continue nebulized bronchodilators. Renal: No acute issues. Endo: No acute issues. GI: No acute issues. ID: No acute issues Heme/Onc: No acute issues. Psych: No acute issues. Miscellaneous: No acute issues. Prophylaxis: Eliquis, ppi Diet: Regular Time Spent With Patient Time: Total time managing care of this patient today ____ minutes.
[2023-08-13] MEDS: Heparin Sodium,Porcine 5,000 UNIT/ML VIAL 5000 UNIT SUBCUT (14:35)
[2023-08-13] MEDS: dilTIAZem HCL CD 180 MG CAP.ER.24H PO (15:02)
[2023-08-13 15:03] LABS: ABG Refer to POC result
[2023-08-13] MEDS: Albuterol/Iprat 2.5/0.5MG 3 ML AMPUL.NEB INHALE ×2 (15:03→19:43)
[2023-08-13] MEDS: Digoxin 0.25 MG TABLET PO (15:03)
[2023-08-13 15:28] LABS: VBG Base Excess 18.7 mmol/L; VBG HCO3 45 mmol/L (22-26); VBG pCO2 58 mmHg; VBG pH 7.49 (7.32-7.43); VBG pO2 69 mmHg
[2023-08-13 15:55] LABS: Venous Blood Gas Refer to POC result
--- NOTE | 2023-08-13 16:01 | PC.NURSE ---
Patient admitted to ICU, room 253. This RN went assisted with transport from ER bed 22 to ICU. Patient received in ICU at 1320. Patient came to unit with bipap - RT at bedside. See RT documentation for settings. Patient tolerating Bipap. Lungs - left upper lobe, fine crackles heard. Upper resp congestion heard. Moist cough - not producing sputum at this time. Patient changed over to nasal cannula, 2 liters @ [address] Armendariz at bedside - goal O2sat 88-92%. RR 22-24. Patient mouth breathing, changed over to oxymask 1-2 liters. Patient alert, unsure of place & date. Able to give minimal medical history. Stage 4 coccyx wound noted - foam dressing taken down to assess wound. Dr Armendariz made aware of wound - viewed picture. Refer to picture taken in ER - ER MD report documentation. Patient repositioned. 16fr ramos inserted. Incont of large amt urine prior to insertion. Patient resting - denies pain at this time. Afebrile.
[2023-08-13] MEDS: oxyCODONE HCl Immed Release 5 MG TABLET 2.5 MG PO (19:41)
[2023-08-13] MEDS: acetaZOLAMIDE sodium 500 MG VIAL 250 MG IVPUSH (21:27)
[2023-08-14] VITALS (7 sets, daily range): BP systolic 122–146; BP diastolic 56–68; PULSE 71–97; RESP 16–20; TEMP 36.4–37.1; O2SAT 94–100; BMI 20.8
[2023-08-14] MEDS: Omeprazole 40 MG CAPSULE.DR PO (05:50)
[2023-08-14 07:16] LABS: VBG Base Excess 10.7 mmol/L; VBG HCO3 35 mmol/L (22-26); VBG pCO2 46 mmHg; VBG pH 7.48 (7.32-7.43); VBG pO2 93 mmHg
[2023-08-14 07:16] LABS: Venous Blood Gas Refer to POC result
[2023-08-14 07:33] LABS: Basophils Absolute Auto 0.1 X10*3/uL (0.0-0.2); Basophils Percent Auto 0.3 % (0-2); Hematocrit 36.6 % (37.0-47.0); Hemoglobin 11.6 g/dl (12.0-16.0); Imm Gran Abs Auto 0.76 X10*3/uL (0.00-0.03); Imm Gran Pct Auto 3.5 % (0.0-0.4); Lymphocytes Absolute Auto 0.4 X10*3/uL (1.2-4.9); Lymphocytes Percent Auto 1.7 % (20-40); MANUAL DIFF FLAG SCAN; Mean Corpuscular HGB Conc 31.7 g/dl (31.0-35.0); Mean Corpuscular Hemoglobin 30.2 pg (27.0-33.0); Mean Corpuscular Volume 95.3 fL (80.0-98.0); Monocytes Absolute Auto 0.9 X10*3/uL (0.1-1.2); Neutrophils Absolute Auto 19.7 x10*3/uL (2.0-8.3); Neutrophils Percent Auto 90.5 % (45-73); Platelet Count 376 X10*3/uL (160-400); Red Blood Count 3.84 X10*6/uL (4.20-5.50); Red Cell Distribution Width 13.4 % (11.0-16.0); SCAN SMEAR FLAG 1; White Blood Count 21.8 X10*3/uL (4.8-10.8)
[2023-08-14 07:57] LABS: Albumin Level 3.6 g/dL (3.5-5.0); Anion Gap 15 (12-20); Blood Urea Nitrogen 14 mg/dL (9-16); Calcium 10.2 mg/dL (8.4-10.2); Carbon Dioxide 26 mmol/L (22-29); Chloride 94 mmol/L (96-108); Estimated Glomerular Filt Rate > 60; Glucose Random 156 mg/dL (60-115); Magnesium 2.2 mg/dL (1.6-2.6); Phosphorus 3.4 mg/dL (2.7-4.5); Potassium 3.3 mmol/L (3.3-5.1); SLIDE REVIEW VERIFIED; Sodium 132 mmol/L (135-145)
[2023-08-14 08:18] LABS: Adenovirus PCR Not Detected (Not Detect.); Bordetella parapertussis PCR Not Detected (Not Detect.); Bordetella pertussis PCR Not Detected (Not Detect.); Chlamydia pneumoniae PCR Not Detected (Not Detect.); Coronavirus 229E PCR Not Detected (Not Detect.); Coronavirus HKU1 PCR Not Detected (Not Detect.); Coronavirus NL63 PCR Not Detected (Not Detect.); Coronavirus OC43 PCR Not Detected (Not Detect.); Human metapneumovirus PCR Not Detected (Not Detect.); Influenza A PCR Not Detected (Not Detect.); Influenza B PCR Not Detected (Not Detect.); Mycoplasma pneumoniae PCR Not Detected (Not Detect.); Parainfluenza 1 PCR Not Detected (Not Detect.); Parainfluenza 2 PCR Not Detected (Not Detect.); Parainfluenza 3 PCR Not Detected (Not Detect.); Parainfluenza 4 PCR Not Detected (Not Detect.); RSV PCR Not Detected (Not Detect.); Rhino/Enterovirus PCR Not Detected (Not Detect.); SARS-CoV-2 PCR Not Detected (Not Detect.)
[2023-08-14] MEDS: oxyCODONE HCl Immed Release 5 MG TABLET 2.5 MG PO ×3 (09:22→21:43)
[2023-08-14] MEDS: dilTIAZem HCL CD 180 MG CAP.ER.24H PO (09:25)
[2023-08-14] MEDS: Digoxin 0.25 MG TABLET PO (09:25)
[2023-08-14] MEDS: Apixaban 5 MG TABLET PO ×2 (09:25→21:42)
[2023-08-14] MEDS: acetaZOLAMIDE sodium 500 MG VIAL 250 MG IVPUSH ×2 (09:26→21:43)
--- NOTE | 2023-08-14 10:41 | MHC.CM.PN ---
Addendum entered by Penny Flanagan 08/14/23 10:53: This CM received a return call from pts daughter Javy, she confirmed that she is the HCP and [facility] has it on file. Javy states that Dr. Graciela Nunez is the PCP. Original Note: [facility] 08/14. is from [facility] for [facility] and is a confirmed bed hold with them. Prior to [facility], pt states she was a [facility], and prior to that she was at another SNF but couldn't remember which one. Pt states prior to that she was living at home with her sister who helps her. Pt reports using a cane. D/C plan is to return to [facility] when medically cleared, transport via BLS. Pt states her daughter Javy ([phone]) is her HCP, copy requested and offered to complete a new one if unable to obtain copy. Pt requested that this CM call her daughter Javy to inform her that she is here. This CM called pts daughter Javy at number given and left a voicemail.
--- NOTE | 2023-08-14 10:53 | HO.PM.IMPN ---
Subjective Subjective Date of Service: 08/14/23 Interval History: f/u on acute hypoxic resp failure d/t copd exacerbation with co2 retention was on bipap and briefly observed in the ICU. She seem better today, no confusion, breathing is non-labored Physical Exam Vital Signs: Vital Signs: Last Vital Signs Temp 98.4 F 08/14/23 07:54 Pulse 86 08/14/23 07:54 Resp 18 08/14/23 07:54 BP 143/63 H 08/14/23 07:54 Pulse Ox 96 08/14/23 07:54 O2 Del Method Oxymask 08/14/23 07:54 O2 Flow Rate 2 08/14/23 07:54 FiO2 30 08/13/23 12:51 BMI result Body Mass Index 20.8 Const: Other: General: AO X 3, no acute distress Resp: rhonchi, no accessory muscle use CVS: S1,S2,RRR GI: +BS, NT, no distention Skin: No rash Neuro: motor grossly intact Psych: appropriate affect Objective Data Active Medications Acetazolamide (Acetazolamide Sodium 500 Mg Vial) 250 mg IVPUSH BID [facility] Last Admin: 08/14/23 09:26 Dose: 250 mg Documented By: BIENVENIDO Albuterol/Ipratropium (Albuterol/Iprat 2.5/0.5mg 3 Ml Ampul.Neb) 3 ml INHALE RQ6H WHILE AWAKE [facility] Last Admin: 08/14/23 08:43 Dose: Not Given Documented By: GEOVANNA Non-Admin Reason: Patient Refused Apixaban (Apixaban 5 Mg Tablet) 5 mg PO BID [facility] Last Admin: 08/14/23 09:25 Dose: 5 mg Documented By: BIENVENIDO Digoxin (Digoxin 0.25 Mg Tablet) 0.25 mg PO DAILY [facility] Last Admin: 08/14/23 09:25 Dose: 0.25 mg Documented By: BIENVENIDO Diltiazem HCl (Diltiazem Hcl Cd 180 Mg Cap.Er.24h) 180 mg PO DAILY [facility]; Protocol Last Admin: 08/14/23 09:25 Dose: 180 mg Documented By: BIENVENIDO Omeprazole (Omeprazole 40 Mg Capsule.Dr) 40 mg PO DAILY@0630 [facility] Last Admin: 08/14/23 05:50 Dose: 40 mg Documented By: AMANDA Oxycodone HCl (Oxycodone Hcl Immed Release 5 Mg Tablet) 2.5 mg PO Q6H PRN PRN Reason: Pain, Moderate(Pain Scale 4-6) Last Admin: 08/14/23 09:22 Dose: 2.5 mg Documented By: BIENVENIDO Labs 08/14/23 07:07 08/14/23 07:07 Labs: Laboratory Results - last 24 hr 08/13/23 08/13/23 08/13/23 10:56 15:23 16:18 MCV MCH MCHC RDW Plt Count MPV Immature Gran % (Auto) Neut % (Auto) Lymph % (Auto) [place] % (Auto) Eos % (Auto) Baso % (Auto) Lymph # (Auto) [place] # (Auto) Eos # (Auto) Baso # (Auto) Abs Immat Gran (auto) Absolute Neuts (auto) Absolute Nucleated RBC Nucleated RBC % (auto) Smear Tech's Comments O2 Saturation 87.0 ABG pH at Pt Temp 7.50 H ABG pCO2 at Pt Temp 67 H* ABG pO2 at Pt Temp 57 L ABG HCO3 52 H ABG Base Excess (Actual) 25.0 VBG pH 7.49 H VBG pCO2 58 VBG pO2 69 VBG HCO3 45 H VBG O2 Saturation 94.0 VBG Base Excess 18.7 Anion Gap Estim Creat Clear Calc Estimated GFR Random Glucose Calcium Phosphorus Magnesium Albumin Respiratory Panel [place] See Note Adenovirus (Rapid PCR) Not Detected B.pert (TEM-PCR) Not Detected B.parapertussis DNA PCR Not Detected C. pneumoniae DNA (PCR) Not Detected Coronavirus OC43 (PCR) Not Detected Coronavirus HKU1 (PCR) Not Detected Coronavirus 229E (PCR) Not Detected Coronavirus NL63 (PCR) Not Detected Human Metapneumovir PCR Not Detected Influenza A (RT-PCR) Not Detected Influenza B (RT-PCR) Not Detected M. pneumoniae (PCR) Not Detected Parainfluenza 1 (PCR) Not Detected Parainfluenza 2 (PCR) Not Detected Parainfluenza 3 (PCR) Not Detected Parainfluenza 4 (PCR) Not Detected RSV (PCR) Not Detected Entero/Rhino (PCR) Not Detected SARS-CoV-2 RNA (RT-PCR) Not Detected 08/14/23 08/14/23 07:07 07:11 MCV 95.3 MCH 30.2 MCHC 31.7 RDW 13.4 Plt Count 376 MPV 10.0 Immature Gran % (Auto) 3.5 H Neut % (Auto) 90.5 H Lymph % (Auto) 1.[address] [place] % (Auto) 4.0 Eos % (Auto) 0.0 Baso % (Auto) 0.3 Lymph # (Auto) 0.[address] [place] # (Auto) 0.9 Eos # (Auto) 0.0 Baso # (Auto) 0.1 Abs Immat Gran (auto) 0.76 H Absolute Neuts (auto) 19.7 H Absolute Nucleated RBC 0.000 Nucleated RBC % (auto) 0.0 Smear Tech's Comments VERIFIED O2 Saturation ABG pH at Pt Temp ABG pCO2 at Pt Temp ABG pO2 at Pt Temp ABG HCO3 ABG Base Excess (Actual) VBG pH 7.48 H VBG pCO2 46 VBG pO2 93 VBG HCO3 35 H VBG O2 Saturation 99.0 VBG Base Excess 10.7 Anion Gap 15 Estim Creat Clear Calc 77.0 Estimated GFR > 60 Random Glucose 156 H Calcium 10.2 D Phosphorus 3.4 Magnesium 2.2 Albumin 3.6 Respiratory Panel [place] Adenovirus (Rapid PCR) B.pert (TEM-PCR) B.parapertussis DNA PCR C. pneumoniae DNA (PCR) Coronavirus OC43 (PCR) Coronavirus HKU1 (PCR) Coronavirus 229E (PCR) Coronavirus NL63 (PCR) Human Metapneumovir PCR Influenza A (RT-PCR) Influenza B (RT-PCR) M. pneumoniae (PCR) Parainfluenza 1 (PCR) Parainfluenza 2 (PCR) Parainfluenza 3 (PCR) Parainfluenza 4 (PCR) RSV (PCR) Entero/Rhino (PCR) SARS-CoV-2 RNA (RT-PCR) Microbiology Microbiology Results: Microbiology 08/13/23 08:05 Blood Culture - Preliminary Blood - Venous No growth after 24 hours. 08/13/23 07:45 Blood Culture - Preliminary Blood - Venous No growth after 24 hours. Assessment and Plan (1) Acute respiratory failure with hypoxia and hypercarbia: Status: Acute Assessment and Plan: 62-year-old lady with underlying COPD with CO2 retention on supplemental oxygen at 2 L, AFib/Aflutter on Eliquis diastolic heart failure compression fracture of thoracic vertebra admitted on 08/13/2023 with dyspnea and acute on chronic respiratory failure initially requiring BiPAP support. Patient has been admitted to intensive care unit and started on diuresis with acetazolamide. Now off BiPAP support and seemingly better copd exacerbation with co2 retention, off bipapa, continue bronchodilators, Prednissone 20 daily, Keep o sat no more than 92 Chronic afib--continue dig, diltiazam, hold metoprolol chronic diastolic heart failure, resume lasix full code dvt prophylaxis eliquis need for inaptL acute on chronic resp failure with hypox with acute exacerbation, needing bipap and being closely monitored of bipapa now, Time Spent With Patient Time: Total time managing care of this patient today ____ minutes. Quality Stroke Does the patient have a stroke diagnosis?: No VTE Prior VTE?: No VTE Risk Level:: Medical - moderate - high VTE Device Contraindication: Treatment Not Indicated VTE Drug Contraindication: N/A - Med Ordered
[2023-08-14] MEDS: Albuterol Sulfate 90 MCG 8 GM INHALER 1 PUFF INHALE (13:32)
[2023-08-14] MEDS: Acetaminophen 325 MG TABLET 650 MG PO (14:25)
[2023-08-14] MEDS: guaiFENesin 100 MG/5 ML LIQUID PO ×2 (14:25→21:58)
[2023-08-14] MEDS: Gabapentin 300 MG CAPSULE 600 MG PO ×2 (14:59→21:42)
[2023-08-14] MEDS: Albuterol/Iprat 2.5/0.5MG 3 ML AMPUL.NEB INHALE (15:01)
[2023-08-14] MEDS: Atorvastatin Calcium 20 MG TABLET PO (21:42)
[2023-08-14] MEDS: Melatonin 3 MG TABLET PO (21:43)
[2023-08-14] MEDS: Sennosides/Docusate Sodium TABLET 2 TAB PO (21:43)
[2023-08-15] VITALS (9 sets, daily range): BP systolic 102–135; BP diastolic 52–64; PULSE 65–91; RESP 16–20; TEMP 36.1–37; O2SAT 96–100; BMI 22.9
[2023-08-15] MEDS: Omeprazole 40 MG CAPSULE.DR PO (06:20)
[2023-08-15] MEDS: Fluticasone/Vilanterol 100/25 BLST.W.DEV 1 PUFF INHALE (07:31)
[2023-08-15] MEDS: Albuterol/Iprat 2.5/0.5MG 3 ML AMPUL.NEB INHALE ×2 (07:31→14:21)
[2023-08-15] MEDS: dilTIAZem HCL CD 180 MG CAP.ER.24H PO (09:54)
[2023-08-15] MEDS: Gabapentin 300 MG CAPSULE 600 MG PO ×3 (09:54→20:15)
[2023-08-15] MEDS: Aspirin Enteric Coated 81 MG TABLET.DR PO (09:54)
[2023-08-15] MEDS: Apixaban 5 MG TABLET PO ×2 (09:54→20:17)
[2023-08-15] MEDS: guaiFENesin 100 MG/5 ML LIQUID PO ×2 (09:54→20:14)
[2023-08-15] MEDS: Digoxin 0.25 MG TABLET PO (09:54)
[2023-08-15] MEDS: Sertraline HCL 25 MG TABLET PO (09:54)
[2023-08-15] MEDS: Furosemide 40 MG TABLET PO (09:54)
[2023-08-15] MEDS: acetaZOLAMIDE sodium 500 MG VIAL 250 MG IVPUSH ×2 (09:55→20:14)
[2023-08-15] MEDS: Acetaminophen 325 MG TABLET 650 MG PO ×2 (09:55→16:29)
--- NOTE | 2023-08-15 10:42 | P.PNIM_ITS ---
Subjective Subjective Date of Service: 08/15/23 Physical Exam 2 Vital Signs: Vital Signs: Last Vital Signs Temp 97.6 F 08/15/23 07:42 Pulse 72 08/15/23 07:42 Resp 20 08/15/23 07:42 BP 130/64 08/15/23 07:42 Pulse Ox 98 08/15/23 07:42 O2 Del Method Nasal Cannula 08/15/23 07:42 O2 Flow Rate 3 08/15/23 07:42 FiO2 30 08/13/23 12:51 BMI result Body Mass Index 22.9 Objective Data Active Medications Acetaminophen (Acetaminophen 325 Mg Tablet) 650 mg PO Q6H PRN PRN Reason: temp > 100/general discomfort Last Admin: 08/15/23 09:55 Dose: 650 mg Documented By: ERIC Acetazolamide (Acetazolamide Sodium 500 Mg Vial) 250 mg IVPUSH BID [facility] Last Admin: 08/15/23 09:55 Dose: 250 mg Documented By: ERIC Albuterol Sulfate (Albuterol Sulfate 90 Mcg 8 Gm Inhaler) 1 puff INHALE QID PRN PRN Reason: Wheezing Last Admin: 08/14/23 13:32 Dose: 1 puff Documented By: BIENVENIDO Albuterol/Ipratropium (Albuterol/Iprat 2.5/0.5mg 3 Ml Ampul.Neb) 3 ml INHALE RQ6H WHILE AWAKE [facility] Last Admin: 08/15/23 07:31 Dose: 3 ml Documented By: PATO Albuterol/Ipratropium (Albuterol/Iprat 2.5/0.5mg 3 Ml Ampul.Neb) 3 ml INHALE Q6H PRN PRN Reason: SHORTNESS OF BREATH/WHEEZE Apixaban (Apixaban 5 Mg Tablet) 5 mg PO BID [facility] Last Admin: 08/15/23 09:54 Dose: 5 mg Documented By: ERIC Aspirin (Aspirin Enteric Coated 81 Mg Tablet.) 81 mg PO DAILY [facility] Last Admin: 08/15/23 09:54 Dose: 81 mg Documented By: ERIC Atorvastatin Calcium (Atorvastatin Calcium 20 Mg Tablet) 20 mg PO BEDTIME [facility] Last Admin: 08/14/23 21:42 Dose: 20 mg Documented By: AMANDA Bisacodyl (Bisacodyl 10 Mg Supp.Rect) 10 mg [place] Q3D PRN PRN Reason: Constipation Digoxin (Digoxin 0.25 Mg Tablet) 0.25 mg PO DAILY [facility] Last Admin: 08/15/23 09:54 Dose: 0.25 mg Documented By: ERIC Diltiazem HCl (Diltiazem Hcl Cd 180 Mg Cap.Er.24h) 180 mg PO DAILY [facility]; Protocol Last Admin: 08/15/23 09:54 Dose: 180 mg Documented By: ERIC Fluticasone/Vilanterol (Fluticasone/Vilanterol 100/25 Blst.W.Dev) 1 puff INHALE RDAILY [facility] Last Admin: 08/15/23 07:31 Dose: 1 puff Documented By: PATO Furosemide (Furosemide 40 Mg Tablet) 40 mg PO DAILY [facility]; Protocol Last Admin: 08/15/23 09:54 Dose: 40 mg Documented By: ERIC Gabapentin (Gabapentin 300 Mg Capsule) 600 mg PO TID [facility] Last Admin: 08/15/23 09:54 Dose: 600 mg Documented By: ERIC Guaifenesin (Guaifenesin 100 Mg/5 Ml Liquid) 5 ml PO Q6H PRN PRN Reason: Cough Last Admin: 08/15/23 09:54 Dose: 5 ml Documented By: ERIC Hydroxyzine HCl (Hydroxyzine Hcl 10 Mg Tablet) 30 mg PO TID PRN PRN Reason: Anxiety Lactulose (Lactulose 20 Gm/30 Ml Solution) 20 gm PO Q12H PRN PRN Reason: Constipation Lorazepam (Lorazepam 0.5 Mg Tablet) 0.5 mg PO BID PRN PRN Reason: Anxiety Magnesium Hydroxide (Milk Of Magnesia 30 Ml Oral.Susp) 30 ml PO BEDTIME PRN PRN Reason: Constipation Melatonin (Melatonin 3 Mg Tablet) 3 mg PO BEDTIME [facility] Last Admin: 08/14/23 21:43 Dose: 3 mg Documented By: AMANDA Nicotine (Nicotine 21 Mg Patch.Td24) 21 mg TRANSDERMA DAILY [facility] Last Admin: 08/15/23 09:55 Dose: Not Given Documented By: ERIC Non-Admin Reason: Patient Refused Omeprazole (Omeprazole 40 Mg Capsule.Dr) 40 mg PO DAILY@0630 [facility] Last Admin: 08/15/23 06:20 Dose: 40 mg Documented By: AMANDA Oxycodone HCl (Oxycodone Hcl Immed Release 5 Mg Tablet) 2.5 mg PO Q6H PRN PRN Reason: Pain, Moderate(Pain Scale 4-6) Last Admin: 08/14/23 21:43 Dose: 2.5 mg Documented By: AMANDA Senna/Docusate Sodium (Sennosides/Docusate Sodium Tablet) 2 tab PO BEDTIME [facility] Last Admin: 08/14/23 21:43 Dose: 2 tab Documented By: AMANDA Sertraline HCl (Sertraline Hcl 25 Mg Tablet) 25 mg PO DAILY [facility] Last Admin: 08/15/23 09:54 Dose: 25 mg Documented By: JOLEEN-RIVLA Sodium Biphosphate/Sodium Phosphate (Sodium Phosphate,[place]-Dibasic 133 Ml Enema) 118 ml [place] DAILY PRN PRN Reason: Constipation Tiotropium [place] (Tiotropium [place] 2.5 Mcg Inhaler) 2 puff INHALE DAILY [facility] Last Admin: 08/15/23 07:31 Dose: 2 puff Documented By: TIMMYNE Labs 08/14/23 07:07 08/14/23 07:07 Microbiology Microbiology Results: Microbiology 08/13/23 08:05 Blood Culture - Preliminary Blood - Venous No growth after 48 hours. 08/13/23 07:45 Blood Culture - Preliminary Blood - Venous No growth after 48 hours. Assessment and Plan (1) Acute respiratory failure with hypoxia and hypercarbia: Status: Acute Assessment and Plan: 62-year-old lady with underlying COPD with CO2 retention on supplemental oxygen at 2 L, AFib/Aflutter on Eliquis diastolic heart failure compression fracture of thoracic vertebra admitted on 08/13/2023 with dyspnea and acute on chronic respiratory failure initially requiring BiPAP support. Patient has been admitted to intensive care unit and started on diuresis with acetazolamide. Now off BiPAP support and seemingly better copd exacerbation with co2 retention, off bipapa, doing much better, continue bronchodilators, Prednissone 20 daily, Keep o sat no more than 92 Chronic afib--continue dig, diltiazam, hold metoprolol chronic diastolic heart failure, resume lasix full code dvt prophylaxis eliquis need for inaptL acute on chronic resp failure with hypox with acute exacerbation, needing bipap and being closely monitored of bipapa now, Time Spent With Patient Time: Total time managing care of this patient today ____ minutes. Quality Stroke Does the patient have a stroke diagnosis?: No VTE Prior VTE?: No VTE Risk Level:: Medical - moderate - high VTE Device Contraindication: Treatment Not Indicated VTE Drug Contraindication: N/A - Med Ordered
[2023-08-15] MEDS: hydrOXYzine HCL 10 MG TABLET 30 MG PO (11:44)
[2023-08-15] MEDS: predniSONE 20 MG TABLET PO (11:44)
[2023-08-15] MEDS: oxyCODONE HCl Immed Release 5 MG TABLET 2.5 MG PO ×2 (11:44→16:28)
[2023-08-15] MEDS: polyethylene glycoL 3350 17 GM POWD.PACK PO (15:28)
[2023-08-15] MEDS: Albuterol Sulfate 90 MCG 8 GM INHALER 1 PUFF INHALE (16:19)
--- NOTE | 2023-08-15 17:39 | PC.NURSE ---
Per oxygen script from current company, patient wears 3L via [place] at all times at baseline.
[2023-08-15] MEDS: Atorvastatin Calcium 20 MG TABLET PO (20:15)
[2023-08-15] MEDS: Melatonin 3 MG TABLET PO (20:17)
[2023-08-15] MEDS: Sennosides/Docusate Sodium TABLET 2 TAB PO (20:17)
[2023-08-16] VITALS (7 sets, daily range): BP systolic 129–157; BP diastolic 56–76; PULSE 84–98; RESP 16–20; TEMP 36.5–37; O2SAT 96–100; BMI 22.9
[2023-08-16] MEDS: Omeprazole 40 MG CAPSULE.DR PO (05:10)
[2023-08-16] MEDS: Fluticasone/Vilanterol 100/25 BLST.W.DEV 1 PUFF INHALE (07:40)
[2023-08-16] MEDS: Albuterol/Iprat 2.5/0.5MG 3 ML AMPUL.NEB INHALE ×2 (07:40→15:28)
[2023-08-16] MEDS: Albuterol Sulfate 90 MCG 8 GM INHALER 1 PUFF INHALE (08:32)
[2023-08-16] MEDS: acetaZOLAMIDE sodium 500 MG VIAL 250 MG IVPUSH ×2 (08:33→22:09)
[2023-08-16] MEDS: Furosemide 40 MG TABLET PO (08:34)
[2023-08-16] MEDS: Sertraline HCL 25 MG TABLET PO (08:34)
[2023-08-16] MEDS: dilTIAZem HCL CD 180 MG CAP.ER.24H PO (08:34)
[2023-08-16] MEDS: Aspirin Enteric Coated 81 MG TABLET.DR PO (08:34)
[2023-08-16] MEDS: Gabapentin 300 MG CAPSULE 600 MG PO ×3 (08:34→22:00)
[2023-08-16] MEDS: predniSONE 20 MG TABLET PO (08:34)
[2023-08-16] MEDS: Digoxin 0.25 MG TABLET PO (08:34)
[2023-08-16] MEDS: Apixaban 5 MG TABLET PO ×2 (08:34→22:07)
[2023-08-16] MEDS: Lactulose 20 GM/30 ML SOLUTION PO (08:46)
--- NOTE | 2023-08-16 11:53 | HO.PM.IMPN ---
Subjective Subjective Date of Service: 08/16/23 Interval History: overall continues to make progress,loos frail Physical Exam Vital Signs: Vital Signs: Last Vital Signs Temp 98.1 F 08/16/23 11:23 Pulse 98 08/16/23 11:23 Resp 20 08/16/23 11:23 BP 129/71 08/16/23 11:23 Pulse Ox 99 08/16/23 11:23 O2 Del Method Nasal Cannula 08/16/23 11:23 O2 Flow Rate 3 08/16/23 11:23 FiO2 30 08/13/23 12:51 BMI result Body Mass Index 22.9 Const: Other: General: AO X 3, no acute distress Resp: CTA bilateral, no distress CVS: S1,S2,RRR GI: +BS, NT, no distention Skin: No rash Neuro: motor grossly intact Psych: appropriate affect Objective Data Active Medications Acetaminophen (Acetaminophen 325 Mg Tablet) 650 mg PO Q6H PRN PRN Reason: temp > 100/general discomfort Last Admin: 08/15/23 16:29 Dose: 650 mg Documented By: ERIC Acetazolamide (Acetazolamide Sodium 500 Mg Vial) 250 mg IVPUSH BID [facility] Last Admin: 08/16/23 08:33 Dose: 250 mg Documented By: MERVIN Albuterol Sulfate (Albuterol Sulfate 90 Mcg 8 Gm Inhaler) 1 puff INHALE QID PRN PRN Reason: Wheezing Last Admin: 08/16/23 08:32 Dose: 1 puff Documented By: MERVIN Albuterol/Ipratropium (Albuterol/Iprat 2.5/0.5mg 3 Ml Ampul.Neb) 3 ml INHALE RQ6H WHILE AWAKE [facility] Last Admin: 08/16/23 07:40 Dose: 3 ml Documented By: AGUILAR Albuterol/Ipratropium (Albuterol/Iprat 2.5/0.5mg 3 Ml Ampul.Neb) 3 ml INHALE Q6H PRN PRN Reason: SHORTNESS OF BREATH/WHEEZE Apixaban (Apixaban 5 Mg Tablet) 5 mg PO BID [facility] Last Admin: 08/16/23 08:34 Dose: 5 mg Documented By: MERVIN Aspirin (Aspirin Enteric Coated 81 Mg Tablet.) 81 mg PO DAILY [facility] Last Admin: 08/16/23 08:34 Dose: 81 mg Documented By: MERVIN Atorvastatin Calcium (Atorvastatin Calcium 20 Mg Tablet) 20 mg PO BEDTIME [facility] Last Admin: 08/15/23 20:15 Dose: 20 mg Documented By: JINA Bisacodyl (Bisacodyl 10 Mg Supp.Rect) 10 mg [place] Q3D PRN PRN Reason: Constipation Digoxin (Digoxin 0.25 Mg Tablet) 0.25 mg PO DAILY [facility] Last Admin: 08/16/23 08:34 Dose: 0.25 mg Documented By: MERVIN Diltiazem HCl (Diltiazem Hcl Cd 180 Mg Cap.Er.24h) 180 mg PO DAILY [facility]; Protocol Last Admin: 08/16/23 08:34 Dose: 180 mg Documented By: MERVIN Fluticasone/Vilanterol (Fluticasone/Vilanterol 100/25 Blst.W.Dev) 1 puff INHALE RDAILY [facility] Last Admin: 08/16/23 07:40 Dose: 1 puff Documented By: AGUILAR Furosemide (Furosemide 40 Mg Tablet) 40 mg PO DAILY [facility]; Protocol Last Admin: 08/16/23 08:34 Dose: 40 mg Documented By: MERVIN Gabapentin (Gabapentin 300 Mg Capsule) 600 mg PO TID [facility] Last Admin: 08/16/23 08:34 Dose: 600 mg Documented By: MERVIN Guaifenesin (Guaifenesin 100 Mg/5 Ml Liquid) 5 ml PO Q6H PRN PRN Reason: Cough Last Admin: 08/15/23 20:14 Dose: 5 ml Documented By: JINA Hydroxyzine HCl (Hydroxyzine Hcl 10 Mg Tablet) 30 mg PO TID PRN PRN Reason: Anxiety Last Admin: 08/15/23 11:44 Dose: 30 mg Documented By: JOLEEN-RIVLA Lactulose (Lactulose 20 Gm/30 Ml Solution) 20 gm PO Q12H PRN PRN Reason: Constipation Last Admin: 08/16/23 08:46 Dose: 20 gm Documented By: MERVIN Lorazepam (Lorazepam 0.5 Mg Tablet) 0.5 mg PO BID PRN PRN Reason: Anxiety Magnesium Hydroxide (Milk Of Magnesia 30 Ml Oral.Susp) 30 ml PO BEDTIME PRN PRN Reason: Constipation Melatonin (Melatonin 3 Mg Tablet) 3 mg PO BEDTIME [facility] Last Admin: 08/15/23 20:17 Dose: 3 mg Documented By: JINA Nicotine (Nicotine 21 Mg Patch.Td24) 21 mg TRANSDERMA DAILY [facility] Last Admin: 08/16/23 08:34 Dose: Not Given Documented By: MERVIN Non-Admin Reason: Patient Refused Omeprazole (Omeprazole 40 Mg Capsule.Dr) 40 mg PO DAILY@0630 [facility] Last Admin: 08/16/23 05:10 Dose: 40 mg Documented By: JINA Oxycodone HCl (Oxycodone Hcl Immed Release 5 Mg Tablet) 2.5 mg PO Q6H PRN PRN Reason: Pain, Moderate(Pain Scale 4-6) Last Admin: 08/15/23 16:28 Dose: 2.5 mg Documented By: ERIC Comments: Polyethylene Glycol (Polyethylene Glycol 3350 17 Gm Powd.Pack) 17 gm PO DAILY PRN PRN Reason: Constipation Last Admin: 08/15/23 15:28 Dose: 17 gm Documented By: ERIC Prednisone (Prednisone 20 Mg Tablet) 20 mg PO DAILY [facility] Last Admin: 08/16/23 08:34 Dose: 20 mg Documented By: MERVIN Senna/Docusate Sodium (Sennosides/Docusate Sodium Tablet) 2 tab PO BEDTIME [facility] Last Admin: 08/15/23 20:17 Dose: 2 tab Documented By: JINA Sertraline HCl (Sertraline Hcl 25 Mg Tablet) 25 mg PO DAILY [facility] Last Admin: 08/16/23 08:34 Dose: 25 mg Documented By: MERVIN Sodium Biphosphate/Sodium Phosphate (Sodium Phosphate,[place]-Dibasic 133 Ml Enema) 118 ml [place] DAILY PRN PRN Reason: Constipation Tiotropium [place] (Tiotropium [place] 2.5 Mcg Inhaler) 2 puff INHALE DAILY [facility] Last Admin: 08/16/23 07:40 Dose: 2 puff Documented By: AGUILAR Labs 08/14/23 07:07 08/14/23 07:07 Microbiology Microbiology Results: Microbiology 08/13/23 08:05 Blood Culture - Preliminary Blood - Venous No growth after 48 hours. 08/13/23 07:45 Blood Culture - Preliminary Blood - Venous No growth after 48 hours. Assessment and Plan (1) Acute respiratory failure with hypoxia and hypercarbia: Status: Acute Assessment and Plan: 62-year-old lady with underlying COPD with CO2 retention on supplemental oxygen at 2 L, AFib/Aflutter on Eliquis diastolic heart failure compression fracture of thoracic vertebra admitted on 08/13/2023 with dyspnea and acute on chronic respiratory failure initially requiring BiPAP support. Patient has been admitted to intensive care unit and started on diuresis with acetazolamide. Now off BiPAP support and seemingly better copd exacerbation with CO2 retention, off bipapa, doing much better, continue bronchodilators, Prednissone 20 daily, Keep o sat no more than 92 Chronic afib--continue dig, diltiazam, hold metoprolol chronic diastolic heart failure, resume lasix deconditioned, get pt eval full code dvt prophylaxis eliquis need for inaptL acute on chronic resp failure with hypox with acute exacerbation, needing bipap and being closely monitored of bipapa now, Time Spent With Patient Time: Total time managing care of this patient today ____ minutes. Quality Stroke Does the patient have a stroke diagnosis?: No VTE Prior VTE?: No VTE Risk Level:: Medical - moderate - high VTE Device Contraindication: Treatment Not Indicated VTE Drug Contraindication: N/A - Med Ordered
--- NOTE | 2023-08-16 12:22 | HO.WOUNDCONS ---
History of Present Illness Data of Consult Service Date: 08/16/23 [facility] Care Provider: Graciela Nunez MD [facility] Reason for consult: stage 3-4 pressure ulcer didiygeum [id number]: 62-year-old female with respiratory distress and hypoxia who came into the emergency department with fluid overload. She was diuresed and is now on steroids. Her breathing is more comfortable. She has been in a fpc for several months. She walks with a walker. Her appetite is good. We are asked to provide recommendations for the coccygeal ulcer that is full-thickness. The photograph taken on her emergency department evaluation shows that this advanced ulcer was present on admission. Review of Systems Review of Systems: Good appetite. No jitteriness from steroids. Breathing is more comfortable. Cough is nonproductive. COUNT INCLUDES THE [facility] Medical History (Updated 08/13/23 @ 14:43 by Vimal Armendariz MD) Oxygen dependent History of chronic carbon dioxide retention Compression fracture of thoracic vertebra Breast implant status CHF (congestive heart failure) Pressure ulcer COPD (chronic obstructive pulmonary disease) Osteoporosis Social History Household Members: Other Housing: Group Home Patient Tobacco Use Status: Former Tobacco user Tobacco use type: Cigarette Use of substances other than those prescribed or required for medical reasons: No Currently Displaying Signs/Symptoms of Drug Intoxication Withdrawal: No Have you been hit, kicked, punched, or otherwise hurt by someone within the past year? If so, by whom?: No Do you feel safe in your current relationship?: Yes Is there a partner from a previous relationship who is making you feel unsafe now?: No Are you made to feel afraid or neglected: No Spiritual Healthcare Practices: n/a Worship Healthcare Practices: n/a Cultural Healthcare Practices: n/a Advance Directives: No Advance Directives Information Provided: Yes (MOLST ON FILE) Do you have thoughts of harming others: None Do you have a plan to hurt others: No Plan Recently lost weight without trying: Yes How much weight loss: Unsure Eating poorly because of decreased appetite: Yes Nutrition screen score: 5 Nutrition Risks: On aspiration precautions Patient : No : No service: No Meds Allergies Allergy/AdvReac Type Severity Reaction Status Date / Time codeine Allergy Intermediate Anaphylaxis Verified 08/13/23 14:29 morphine Allergy Anaphylaxis Verified 08/13/23 14:21 Active Medications: Current Medications Acetaminophen (Acetaminophen 325 Mg Tablet) 650 mg PO Q6H PRN PRN Reason: temp > 100/general discomfort Last Admin: 08/15/23 16:29 Dose: 650 mg Acetazolamide (Acetazolamide Sodium 500 Mg Vial) 250 mg IVPUSH BID [facility] Last Admin: 08/16/23 08:33 Dose: 250 mg Albuterol Sulfate (Albuterol Sulfate 90 Mcg 8 Gm Inhaler) 1 puff INHALE QID PRN PRN Reason: Wheezing Last Admin: 08/16/23 08:32 Dose: 1 puff Albuterol/Ipratropium (Albuterol/Iprat 2.5/0.5mg 3 Ml Ampul.Neb) 3 ml INHALE RQ6H WHILE AWAKE [facility] Last Admin: 08/16/23 07:40 Dose: 3 ml Albuterol/Ipratropium (Albuterol/Iprat 2.5/0.5mg 3 Ml Ampul.Neb) 3 ml INHALE Q6H PRN PRN Reason: SHORTNESS OF BREATH/WHEEZE Apixaban (Apixaban 5 Mg Tablet) 5 mg PO BID [facility] Last Admin: 08/16/23 08:34 Dose: 5 mg Aspirin (Aspirin Enteric Coated 81 Mg Tablet.Dr) 81 mg PO DAILY [facility] Last Admin: 08/16/23 08:34 Dose: 81 mg Atorvastatin Calcium (Atorvastatin Calcium 20 Mg Tablet) 20 mg PO BEDTIME [facility] Last Admin: 08/15/23 20:15 Dose: 20 mg Bisacodyl (Bisacodyl 10 Mg Supp.Rect) 10 mg WA Q3D PRN PRN Reason: Constipation Digoxin (Digoxin 0.25 Mg Tablet) 0.25 mg PO DAILY [facility] Last Admin: 08/16/23 08:34 Dose: 0.25 mg Diltiazem HCl (Diltiazem Hcl Cd 180 Mg Cap.Er.24h) 180 mg PO DAILY [facility]; Protocol Last Admin: 08/16/23 08:34 Dose: 180 mg Fluticasone/Vilanterol (Fluticasone/Vilanterol 100/25 Blst.W.Dev) 1 puff INHALE RDAILY [facility] Last Admin: 08/16/23 07:40 Dose: 1 puff Furosemide (Furosemide 40 Mg Tablet) 40 mg PO DAILY [facility]; Protocol Last Admin: 08/16/23 08:34 Dose: 40 mg Gabapentin (Gabapentin 300 Mg Capsule) 600 mg PO TID [facility] Last Admin: 08/16/23 08:34 Dose: 600 mg Guaifenesin (Guaifenesin 100 Mg/5 Ml Liquid) 5 ml PO Q6H PRN PRN Reason: Cough Last Admin: 08/15/23 20:14 Dose: 5 ml Hydroxyzine HCl (Hydroxyzine Hcl 10 Mg Tablet) 30 mg PO TID PRN PRN Reason: Anxiety Last Admin: 08/15/23 11:44 Dose: 30 mg Lactulose (Lactulose 20 Gm/30 Ml Solution) 20 gm PO Q12H PRN PRN Reason: Constipation Last Admin: 08/16/23 08:46 Dose: 20 gm Lorazepam (Lorazepam 0.5 Mg Tablet) 0.5 mg PO BID PRN PRN Reason: Anxiety Magnesium Hydroxide (Milk Of Magnesia 30 Ml Oral.Susp) 30 ml PO BEDTIME PRN PRN Reason: Constipation Melatonin (Melatonin 3 Mg Tablet) 3 mg PO BEDTIME [facility] Last Admin: 08/15/23 20:17 Dose: 3 mg Nicotine (Nicotine 21 Mg Patch.Td24) 21 mg TRANSDERMA DAILY [facility] Last Admin: 08/16/23 08:34 Dose: Not Given Omeprazole (Omeprazole 40 Mg Capsule.Dr) 40 mg PO DAILY@0630 [facility] Last Admin: 08/16/23 05:10 Dose: 40 mg Oxycodone HCl (Oxycodone Hcl Immed Release 5 Mg Tablet) 2.5 mg PO Q6H PRN PRN Reason: Pain, Moderate(Pain Scale 4-6) Last Admin: 08/15/23 16:28 Dose: 2.5 mg Polyethylene Glycol (Polyethylene Glycol 3350 17 Gm Powd.Pack) 17 gm PO DAILY PRN PRN Reason: Constipation Last Admin: 08/15/23 15:28 Dose: 17 gm Prednisone (Prednisone 20 Mg Tablet) 20 mg PO DAILY [facility] Last Admin: 08/16/23 08:34 Dose: 20 mg Senna/Docusate Sodium (Sennosides/Docusate Sodium Tablet) 2 tab PO BEDTIME [facility] Last Admin: 08/15/23 20:17 Dose: 2 tab Sertraline HCl (Sertraline Hcl 25 Mg Tablet) 25 mg PO DAILY [facility] Last Admin: 08/16/23 08:34 Dose: 25 mg Sodium Biphosphate/Sodium Phosphate (Sodium Phosphate,[place]-Dibasic 133 Ml Enema) 118 ml WA DAILY PRN PRN Reason: Constipation Tiotropium [place] (Tiotropium [place] 2.5 Mcg Inhaler) 2 puff INHALE DAILY [facility] Last Admin: 08/16/23 07:40 Dose: 2 puff Home Medications Medication Instructions Recorded Confirmed Last Taken Type acetaminophen 325 mg tablet 650 mg PO Q6H PRN temp > 08/13/23 08/13/23 Unknown History 100/general discomfort albuterol sulfate 90 mcg/actuation 1 inh inhalation QID PRN Wheezing 08/13/23 08/13/23 Unknown History aerosol inhaler (Ventolin HFA) apixaban 5 mg tablet 5 mg PO BID 08/13/23 08/13/23 Unknown History aspirin 81 mg tablet,delayed 81 mg PO DAILY 08/13/23 08/13/23 Unknown History release atorvastatin 20 mg tablet 20 mg PO BEDTIME 08/13/23 08/13/23 Unknown History bisacodyl 10 mg rectal suppository 10 mg WA Q3D PRN Constipation 08/13/23 08/13/23 Unknown History (Dulcolax (bisacodyl)) cholecalciferol (vitamin D3) 25 25 mcg PO DAILY 08/13/23 08/13/23 Unknown History mcg (1,000 unit) tablet collagenase clostridium histo. 250 1 appl topical DAILY 08/13/23 08/13/23 Unknown History unit/gram topical ointment (Santyl) digoxin 250 mcg (0.25 mg) tablet 250 mcg PO DAILY 08/13/23 08/13/23 Unknown History diltiazem HCl 180 mg 180 mg PO DAILY 08/13/23 08/13/23 Unknown History tablet,extended release 24 hr (Cardizem LA) fluticasone 250 mcg-salmeterol 50 1 inh inhalation BID 08/13/23 08/13/23 Unknown History mcg/dose blistr powdr for inhalation (Advair Diskus) folic acid 1 mg tablet 1 mg PO DAILY 08/13/23 08/13/23 Unknown History furosemide 40 mg tablet 40 mg PO DAILY 08/13/23 08/13/23 Unknown History gabapentin 300 mg capsule 600 mg PO TID 08/13/23 08/13/23 Unknown History guaifenesin 100 mg/5 mL oral liquid 200 mg PO Q8H PRN Cough 08/13/23 08/13/23 Unknown History hydroxyzine HCl 10 mg tablet 30 mg PO TID PRN Anxiety 08/13/23 08/13/23 Unknown History ipratropium 0.5 mg-albuterol 3 mg 3 ml inhalation Q6H PRN SHORTNESS 08/13/23 08/13/23 Unknown History (2.5 mg base)/3 mL nebulization OF BREATH/WHEEZE soln lactulose 10 gram/15 mL oral 20 g PO Q12H PRN Constipation 08/13/23 08/13/23 Unknown History solution lorazepam 0.5 mg tablet 0.5 mg PO BID PRN Anxiety 08/13/23 08/13/23 Unknown History magnesium hydroxide 400 mg/5 mL 30 ml PO BEDTIME PRN Constipation 08/13/23 08/13/23 Unknown History oral suspension (Milk of Magnesia) melatonin 3 mg tablet 3 mg PO BEDTIME 08/13/23 08/13/23 Unknown History metoprolol succinate 50 mg 50 mg PO BID 08/13/23 08/13/23 Unknown History tablet,extended release 24 hr multivitamin 1 tab PO DAILY 08/13/23 08/13/23 Unknown History nicotine 21 mg/24 hr daily 1 patch transdermal DAILY 08/13/23 08/13/23 Unknown History transdermal patch oxycodone 5 mg tablet 2.5 mg PO Q6H PRN Pain 08/13/23 08/13/23 Unknown History pantoprazole 40 mg tablet,delayed 40 mg PO DAILY 08/13/23 08/13/23 Unknown History release (Protonix) sennosides 8.6 mg-docusate sodium 2 tab-cap PO BEDTIME 08/13/23 08/13/23 Unknown History 50 mg tablet (Senna Plus) sertraline 25 mg tablet 25 mg PO DAILY 08/13/23 08/13/23 Unknown History sodium phosphates 19 gram-7 118 ml WA DAILY PRN Constipation 08/13/23 08/13/23 Unknown History gram/118 mL enema (Fleet Enema) thiamine HCl (vitamin B1) 100 mg 100 mg PO DAILY 08/13/23 08/13/23 Unknown History tablet umeclidinium 62.5 mcg/actuation 1 inh inhalation DAILY 10/13/23 10/13/23 Unknown History blister powder for inhalation (Incruse Ellipta) Physical Exam Vital Signs and Narrative: Vital Signs: Last Vital Signs Temp 98.1 F 08/16/23 11:23 Pulse 98 08/16/23 11:23 Resp 20 08/16/23 11:23 BP 129/71 08/16/23 11:23 Pulse Ox 99 08/16/23 11:23 O2 Del Method Nasal Cannula 08/16/23 11:23 O2 Flow Rate 3 08/16/23 11:23 FiO2 30 08/13/23 12:51 BMI result Body Mass Index 22.9 Bed mobility is excellent. She can roll onto her left side with complete independence. Her head was not placed completely supine in the setting of shortness of breath but she can lower to 30 degrees with relative comfort. Examination of the coccyx shows improvement of the violaceous hue of the periwound compared to the previous photograph. The depth has not changed. It is exquisitely tender, non blanching suggesting that pressure is the primary component. It is feasible that with improvement of scheduled offloading that the violaceous periwound hue was improving during this hospitalization. Results Labs 08/14/23 07:07 08/14/23 07:07 Assessment and Plan (1) Decubitus ulcer of back, stage 3: Status: Acute Plan 62-year-old female with debility, good mobility and unclear ambulatory skills coming in from a nursing facility with acute shortness of breath, improving. Chronicity of stage 3-4 coccygeal ulcer is unclear but it is certainly not hospital-acquired given documentation upon ER arrival. There is no periosteal exposure. Atrophic muscular exposure of the parasacral region is exposed without visible tendon exposure. Arguably, it is improving by way of violaceous hue while at [facility], likely from frequent and appropriate offloading. Recommendations moving forward are to ensure adequate protein calorie nutrition and brisk prednisone taper to respiratory tolerance, is possible. There are no signs of infection. Collagen product would be ideal if it is available but there are numerous topical products that would also be appropriate. Not opposed to Allevyn foam border product as secondary dressing if patient is incontinent. Time Spent With Patient Time: Total time managing care of this patient today ____ minutes.
--- NOTE | 2023-08-16 12:22 | MHC.CLN ---
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
[2023-08-16] MEDS: oxyCODONE HCl Immed Release 5 MG TABLET 2.5 MG PO ×2 (13:09→22:25)
[2023-08-16] MEDS: hydrOXYzine HCL 10 MG TABLET 30 MG PO (13:11)
[2023-08-16] MEDS: guaiFENesin 100 MG/5 ML LIQUID PO (13:12)
--- NOTE | 2023-08-16 14:31 | MHC.CM.PN ---
EMR reviewed. Per MD rounds pt not medically cleared for dc at this time. Awaiting PT eval. Updates sent to Alfonso Hdez via i[employer]. CM will continue to follow.
[2023-08-16] MEDS: Acetaminophen 325 MG TABLET 650 MG PO (15:41)
--- NOTE | 2023-08-16 15:53 | HO.WOUND ---
Wound Consult: Initial 62yr old female admitted to [facility] on 08/13/23 12:24 - See progress notes and H&P for detailed history. Sacrum Etiology: Unstageable Pressure Injury POA Measurements: 3cm x 2.5cm x 0.6cm Wound Bed: Dry red stable scab over bony prominence Drainage / Odor: None Edges: ?Attached Denis wound: ?Intact light purple hyperpigmented tissue remains blanchable throughout Pain: Denies Pain Goals of Treatment: ?Off Load Pressure and protect from friction with foam to allow for moist wound healing. Recommendations: 1. Right Lateral Malleolus ?- Cleanse with NS, pat dry.? Apply skin barrier wipe allow to dry.? Cover with foam dressing, peel back and assess every shirt and change every 3 days, PRN is needed. 2. Turn and Reposition every 2 hours and as needed for patient comfort. 3. Off Load all bony prominences with use of pillows. 4. Monitor for incontinence and moisture control. 5. Provide adequate and supplemental nutrition. 6. Continue low air loss mattress. Reconsult wound care team for wound deterioration or wound changes. Aquacel??-?Cleanse with normal saline and pat dry. ?Apply Z-Gaurd to denis-wound, lightly pack coccyx with Aquacel Advantage cover with Mepilex sacral foam dressing. ?Cover stage 3 spine wound with Aquacel and cover with Foam dressing to protect from friction. ?Change Daily or as needed for soiling.
--- NOTE | 2023-08-16 15:56 | HO.WOUND ---
Wound Consult: Initial 62yr old female admitted to [facility] on 08/13/23 12:24 - See progress notes and H&P for detailed history. Sacrum Etiology: Unstageable Pressure Injury - Present On Admission Measurements: 3cm x 2.6cm x 0.6cm with undermining circumstantially max depth at 12 o'clock 1.2cm Wound Bed: Moist pink tissue with adherent thick yellow necrotic tissue unable to appreciate wound bed depth at this time Drainage / Odor: No odor noted- - small amount of yellow drainage Edges: ?Rolled Denis wound: ?Red hyperpigmented tissue remains blanchable throughout with evidence of MASD (Moisture Associated Skin Damage with Mirrored edges and Funagl dermatitis evidence of Satellite lesions advancing in periwound No induration no fluctuance and no s/s of infection at this time Pain: reports mild pain Goals of Treatment: ?Off Load Pressure and packing with Durafiber AG for moisture management, autoytic debridement with antimicrobial properties. Follow up in 3-5 days. Recommendations: 1. Sacrum - Cleanse with normal saline and pat dry. ?Apply Antifungal powder to denis-wound, lightly pack sacrum with Durafiber AG cover with sacral foam dressing. ?Change Daily. Follow provider orders for topical antifungal treatment. 2. Turn and Reposition every 2 hours and as needed for patient comfort. 3. Off Load all bony prominences with use of pillows. 4. Monitor for incontinence and moisture control. 5. Provide adequate and supplemental nutrition. 6. Continue low air loss mattress. Reconsult wound care team for wound deterioration or wound changes.
[2023-08-16] MEDS: Sennosides/Docusate Sodium TABLET 2 TAB PO (22:00)
[2023-08-16] MEDS: Melatonin 3 MG TABLET PO (22:08)
[2023-08-16] MEDS: Atorvastatin Calcium 20 MG TABLET PO (22:09)
[2023-08-16] MEDS: LORazepam 0.5 MG TABLET PO (22:26)
[2023-08-17] VITALS: BP 131/63; PULSE 78; RESP 18; TEMP 36.5; O2SAT 97
[2023-08-17 04:00] VITALS: BP 125/60; PULSE 82; RESP 18; TEMP 36.3; O2SAT 98
[2023-08-17 05:54] VITALS: BMI 22.3
[2023-08-17] MEDS: Omeprazole 40 MG CAPSULE.DR PO (06:54)
[2023-08-17 07:50] VITALS: BP 121/61; PULSE 80; RESP 18; TEMP 36.8; O2SAT 97
[2023-08-17] MEDS: Albuterol/Iprat 2.5/0.5MG 3 ML AMPUL.NEB INHALE (08:14)
[2023-08-17] MEDS: Fluticasone/Vilanterol 100/25 BLST.W.DEV 1 PUFF INHALE (08:14)
[2023-08-17 08:16] VITALS: PULSE 93; RESP 18; O2SAT 92
[2023-08-17] MEDS: Furosemide 40 MG TABLET PO (08:31)
[2023-08-17] MEDS: Digoxin 0.25 MG TABLET PO (08:31)
[2023-08-17] MEDS: hydrOXYzine HCL 10 MG TABLET 30 MG PO (08:31)
[2023-08-17] MEDS: oxyCODONE HCl Immed Release 5 MG TABLET 2.5 MG PO (08:31)
[2023-08-17] MEDS: predniSONE 20 MG TABLET PO (08:32)
[2023-08-17] MEDS: dilTIAZem HCL CD 180 MG CAP.ER.24H PO (08:32)
[2023-08-17] MEDS: Sertraline HCL 25 MG TABLET PO (08:32)
[2023-08-17] MEDS: guaiFENesin 100 MG/5 ML LIQUID PO (08:32)
[2023-08-17] MEDS: Apixaban 5 MG TABLET PO (08:32)
[2023-08-17] MEDS: Aspirin Enteric Coated 81 MG TABLET.DR PO (08:32)
[2023-08-17] MEDS: Gabapentin 300 MG CAPSULE 600 MG PO (08:32)
[2023-08-17] MEDS: acetaZOLAMIDE sodium 500 MG VIAL 250 MG IVPUSH (08:33)
--- NOTE | 2023-08-17 10:54 | P.DS_ITS ---
DS: Providers Provider Date of Service: 08/17/23 Date of admission: 08/13/23 12:24 Primary care physician: Graciela Nunez MD Consults: 08/16/23 11:46 Consult to Wound Care Routine Consulting Provider: Abraham Gupta Reason for consultation: Stage III to coccyx DS: Diagnosis Discharge Diagnosis (1) Decubitus ulcer of back, stage 3: Status: Acute DS: Summary Hospital Course Hospital Course: Chief Complaint: Dyspnea 62-year-old lady with underlying COPD with CO2 retention on supplemental oxygen at 2 L, AFib/Aflutter on Eliquis diastolic heart failure compression fracture of thoracic vertebra admitted on 08/13/2023 with dyspnea and acute on chronic respiratory failure initially requiring BiPAP support. Patient has been admitted to intensive care unit and started on diuresis with acetazolamide. Patient now titrated off BiPAP support. Hospital course:The patient initially presented with acute hypoxic respiratory failure due to a COPD exacerbation, necessitating the use of rescue BiPAP in the emergency department. As a result, she was admitted to the ICU for approximately four hours before being transferred to the medical floor. Her treatment plan included Acetazolamide, IV corticosteroids, and bronchodilators via nebulization, which led to a rapid improvement in her condition. Currently, the patient has returned to her typical home oxygen regimen of 3 liters via nasal cannula, with her oxygen saturation at a healthy 97%. She is breathing comfortably, her lung sounds are clear, and she is not experiencing any respiratory distress. Consequently, she is scheduled for discharge to a short-term rehabilitation facility. It's worth noting that a decubitus ulcer was observed upon her initial admission. Wound nurse saw her with the following recommendation: 1. Sacrum - Cleanse with normal saline and pat dry. ?Apply Antifungal powder to denis-wound, lightly pack sacrum with Durafiber AG cover with sacral foam dressing. ?Change Daily. Follow provider orders for topical antifungal treatment. 2. Turn and Reposition every 2 hours and as needed for patient comfort. 3. Off Load all bony prominences with use of pillows. 4. Monitor for incontinence and moisture control. 5. Provide adequate and supplemental nutrition. 6. Continue low air loss mattress. Protein supplement to promote wound healing Time Spent with Patient Time attestation: Total time managing care of this patient today ____ minutes. Discharge coordination time: Greater than 30 minutes Quality: Safe Use of Opioids Does Pt have an Active Cancer Diagnosis on the Problem List?: No Quality: Stroke Does the patient have a stroke diagnosis?: No Physical Exam 2 Vital Signs: Vital Signs: Last Vital Signs Temp 98.3 F 08/17/23 07:50 Pulse 93 08/17/23 08:16 Resp 18 08/17/23 08:16 BP 121/61 08/17/23 07:50 Pulse Ox 97 08/17/23 07:50 O2 Del Method Nasal Cannula 08/17/23 07:50 O2 Flow Rate 3 08/17/23 07:50 FiO2 30 08/13/23 12:51 BMI result Body Mass Index 22.3 Const: Other: General: AO X 3, no acute distress Resp: CTA bilateral, no distress CVS: S1,S2,RRR GI: +BS, NT, no distention Skin: No rash Neuro: motor grossly intact Psych: appropriate affect Skin: Other: DS: Data Data Completed and Pending Labs on day of discharge: Preliminary micro results at discharge 08/13/23 08:05 Blood Culture - Preliminary Blood - Venous No growth after 48 hours. 08/13/23 07:45 Blood Culture - Preliminary Blood - Venous No growth after 48 hours. Discharge Plan Discharge Anticipated Discharge Date/Time: 08/17/23 10:57 Patient Disposition: Xfer SNF Discharge Diagnosis: Acute hypoxic respiratory failure due to copd exaceration [facility] [Outside] - 1 Day (Short term rehab) Graciela Nunez MD [Primary Care Provider] - 1 Week Discharge Medications: New prednisone 20 mg Tablet 20 mg PO DAILY Qty: 3 0RF Continued acetaminophen 325 mg Tablet 650 mg PO Q6H PRN (Reason: temp > 100/general discomfort) fluticasone propion-salmeterol [Advair Diskus] 250-50 mcg/dose Blister With Device 1 inh INHALATION BID apixaban 5 mg Tablet 5 mg PO BID aspirin 81 mg Tablet,Delayed Release (Dr/Ec) 81 mg PO DAILY atorvastatin 20 mg Tablet 20 mg PO BEDTIME diltiazem HCl [Cardizem LA] 180 mg Tablet Extended Release 24 Hr 180 mg PO DAILY cholecalciferol (vitamin D3) 25 mcg (1,000 unit) Tablet 25 mcg PO DAILY guaifenesin 100 mg/5 mL Liquid 200 mg PO Q8H PRN (Reason: Cough) digoxin 250 mcg (0.25 mg) Tablet 250 mcg PO DAILY bisacodyl [Dulcolax (bisacodyl)] 10 mg Suppository 10 mg AL Q3D PRN (Reason: Constipation) Patient Comments: IF NO BOWEL MOVEMENT AND MOM INEFFECTIVE lactulose 10 gram/15 mL Solution 20 g PO Q12H PRN (Reason: Constipation) Fleet Enema 19-7 gram/118 mL Enema 118 ml AL DAILY PRN (Reason: Constipation) folic acid 1 mg Tablet 1 mg PO DAILY furosemide 40 mg Tablet 40 mg PO DAILY gabapentin 300 mg Capsule 600 mg PO TID hydroxyzine HCl 10 mg Tablet 30 mg PO TID PRN (Reason: Anxiety) Rx Instructions: ORDERED FOR 14 DAYS, END DATE 08/24/23 Incruse Ellipta 62.5 mcg/actuation Blister With Device 1 inh INHALATION DAILY ipratropium-albuterol [DuoNeb] 0.5 mg-3 mg(2.5 mg base)/3 mL Solution For Nebulization 3 ml INHALATION Q6H PRN (Reason: SHORTNESS OF BREATH/WHEEZE) lorazepam 0.5 mg Tablet 0.5 mg PO BID PRN (Reason: Anxiety) melatonin 3 mg Tablet 3 mg PO BEDTIME metoprolol succinate 50 mg Tablet Extended Release 24 Hr 50 mg PO BID magnesium hydroxide [Milk of Magnesia] 400 mg/5 mL Suspension 30 ml PO BEDTIME PRN (Reason: Constipation) multivitamin [Multivites] Tablet 1 tab PO DAILY sennosides-docusate sodium [Senna Plus] 8.6-50 mg Tablet 2 tab-cap PO BEDTIME thiamine HCl (vitamin B1) 100 mg Tablet 100 mg PO DAILY pantoprazole [Protonix] 40 mg Tablet,Delayed Release (Dr/Ec) 40 mg PO DAILY nicotine 21 mg/24 hr Patch 24 Hour 1 patch TRANSDERMAL DAILY sertraline 25 mg Tablet 25 mg PO DAILY Santyl 250 unit/gram Ointment 1 appl TOPICAL DAILY Rx Instructions: APPLY TO COCCYX albuterol sulfate [Ventolin HFA] 90 mcg/actuation Hfa Aerosol Inhaler 1 inh INHALATION QID PRN (Reason: Wheezing) oxycodone 5 mg Tablet 2.5 mg PO Q6H PRN (Reason: Pain) Discharge Orders: Discharge Order (Routine); Ordered 08/17/23 Ordered By: Abraham Gupta Diet: Advance to usual diet Activity on Discharge: As tolerated Stand Alone Forms: Patient Portal Discharge page Care Plan Goals: recovery from copd exacerbation Health Concerns: copd decub ulcers Plan of Treatment: take prednisone as recommended continue usual inhalers 1. Sacrum - Cleanse with normal saline and pat dry. ?Apply Antifungal powder to denis-wound, lightly pack sacrum with Durafiber AG cover with sacral foam dressing. ?Change Daily. Follow provider orders for topical antifungal treatment. 2. Turn and Reposition every 2 hours and as needed for patient comfort. 3. Off Load all bony prominences with use of pillows. 4. Monitor for incontinence and moisture control. 5. Provide adequate and supplemental nutrition. 6. Continue low air loss mattress. Add Ensure bid to meals to promote wound healing Assessment: as above
--- NOTE | 2023-08-17 10:54 | MHC.CM.PN ---
Per MD rounds patient is medically cleared for DC. Plan to return to [facility] via BLS at 2pm today. Patient, RN and MD aware. Left message for daughter/HCP per patient request. IMM delivered.
[2023-08-17 11:30] VITALS: BP 125/62; PULSE 87; RESP 18; TEMP 36.4; O2SAT 96
== END 2023-08-17 14:37 | disposition skilled nursing facility (03) | DRG 190 ==
LOC: HO.ED 10:46 → HO.EDOVER 12:36 → HO.ICU 12:45 → HO.IMC 21:39
PROVIDERS: Physician Assistant; Admitting Provider Internal Medicine Pulmonary Disease; Emergency Provider Student in an Organized Health Care Education/Training Program; PCP Internal Medicine; Visit Provider Internal Medicine
DX: J44.1 Chronic obstructive pulmonary disease with (acute) exacerbation (principal); J96.21 Acute and chronic respiratory failure with hypoxia; L89.153 Pressure ulcer of sacral region, stage 3; J96.22 Acute and chronic respiratory failure with hypercapnia; I50.32 Chronic diastolic (congestive) heart failure; I48.20 Chronic atrial fibrillation, unspecified; Z23 Encounter for immunization; Z20.822 Contact with and (suspected) exposure to COVID-19; Z99.81 Dependence on supplemental oxygen; Z87.891 Personal history of nicotine dependence; Z79.01 Long term (current) use of anticoagulants; Z79.51 Long term (current) use of inhaled steroids; Z79.82 Long term (current) use of aspirin; Z79.899 Other long term (current) drug therapy
CPT/HCPCS: 0241U; 36415; 71045; 71250; 80048; 80076; 82040; 82803; 83605; 83690; 83735; 83880; 84100; 84484; 85007; 85025; 85027; 85730; 87040; 87633; 90686; 93005; 93306; 94640; 97162; 99285; C1758; J0692; J1643; J1940; J2930; J3370

== ENCOUNTER → 2023-08-13 07:00 | Outpatient (BNV) | payer MEDICARE, MEDICAID, SELFPAY | PROVIDERS: Admitting Provider Internal Medicine Pulmonary Disease; Emergency Provider Student in an Organized Health Care Education/Training Program; Visit Provider Internal Medicine Cardiovascular Disease | DX: I34.0 Nonrheumatic mitral (valve) insufficiency (principal); I35.1 Nonrheumatic aortic (valve) insufficiency; I36.1 Nonrheumatic tricuspid (valve) insufficiency | CPT/HCPCS: 93306 ==

== ENCOUNTER → 2023-08-13 12:24 | Outpatient (BNV) | payer MEDICARE, MEDICAID, SELFPAY | PROVIDERS: Admitting Provider Internal Medicine Pulmonary Disease; Emergency Provider Student in an Organized Health Care Education/Training Program; Visit Provider Internal Medicine | DX: L89.103 Pressure ulcer of unspecified part of back, stage 3 (principal) | CPT/HCPCS: 99232; 99239 ==

== ENCOUNTER 2023-08-21 08:16 | Inpatient (IN) | payer MEDICARE, MEDICAID, SELFPAY ==
[2023-08-21] VITALS (19 sets, daily range): BP systolic 107–152; BP diastolic 52–72; PULSE 77–105; RESP 16–84; TEMP 36.1–37; O2SAT 92–110; BMI 18.6
--- NOTE | ~2023-08-21 | XR_ITS ---
EXAMINATION: XR CHEST CLINICAL INFORMATION: Covid COMPARISON: Chest radiograph from 08/21/2023 TECHNIQUE: Frontal view of the chest was obtained. FINDINGS: Bilateral low lung volumes. Stable elevation the right hemidiaphragm. Chronic emphysematous changes. Increased radiopacity in the right lung base which may reflect evolving infectious/inflammatory etiology possibly within the setting of aspiration. No pneumothorax. Trachea is midline. Cardiac mediastinal silhouette is stable. Aorta demonstrates atherosclerotic calcifications. Degenerative changes of the thoracolumbar spine. Bilateral breast implants. Soft tissues are unremarkable. XR/XR chest 1V IMPRESSION: 1. Bilateral low lung volumes. 2. Stable elevation the right hemidiaphragm. 3. Chronic emphysematous changes. 4. Increased radiopacity in the right lung base which may reflect evolving infectious/inflammatory etiology possibly within the setting of aspiration.
--- NOTE | ~2023-08-21 | XR_ITS ---
EXAMINATION: XR CHEST CLINICAL INFORMATION: Reassess Covid. COMPARISON: Chest 08/22/2023 TECHNIQUE: Frontal view of the chest was obtained. FINDINGS: The lungs are hypovolemic with patchy opacity seen in both lung bases. The upper lungs are clear. The heart size and pulmonary vascularity is normal. Mild blunting of bilateral CP angles are noted. No gross bony abnormality seen. There are bilateral calcified breast prosthesis. No gross bony abnormality seen.. XR/XR chest 1V IMPRESSION: Hypovolemic lungs with patchy opacity in both lung bases likely atelectasis or infiltrate. It is stable. Bilateral blunting of CP angle pleural thickening or effusion. Overall no major change from 08/22/2023.
--- NOTE | ~2023-08-21 | XR_ITS ---
EXAMINATION: XR CHEST CLINICAL INFORMATION: Shortness of breath COMPARISON: CT chest from 08/13/2023 and chest radiograph from 08/13/2023 TECHNIQUE: Frontal view of the chest was obtained. FINDINGS: Small bilateral pleural effusions with subjacent atelectasis. Chronic emphysematous changes. Interstitial prominence. No pneumothorax. Trachea is midline. Cardiac mediastinal silhouette is stable. Aorta demonstrates atherosclerotic calcifications. Osseous structures are intact. Bilateral breast prosthesis. Soft tissues are unremarkable. XR/XR chest 1V IMPRESSION: 1. Small bilateral pleural effusions with subjacent atelectasis. 2. Chronic emphysematous changes. 3. Interstitial prominence.
--- NOTE | ~2023-08-21 | US_ITS ---
EXAMINATION: US ABDOMEN LIMITED CLINICAL INFORMATION: Right upper quadrant pain question cholecystitis. COMPARISON: None available. TECHNIQUE: Real-time imaging of the right upper quadrant abdominal viscera. Technical limitation secondary to patient positioning. FINDINGS: GALLBLADDER: The gallbladder is physiologically distended without evidence of stones, sludge, polyps, wall thickening or pericholecystic fluid. Sonographic Vang sign is positive. COMMON BILE DUCT: Normal in caliber measuring 0.6 cm in diameter. US/US abdomen limited IMPRESSION: Despite positive Vang sign no sonographic evidence to suggest cholecystitis
--- NOTE | 2023-08-21 08:25 | ED.SOB ---
HPI - SOB/Dyspnea General Chief Complaint: General Medical Stated Complaint: DIFF BREATHING@SNF,INTUBATED BY EMS Time Seen by Provider: 08/21/23 08:24 Source: EMS and RN notes reviewed Mode of arrival: EMS Limitations: altered mental status History of Present Illness HPI Narrative: Patient is 62 years old from care home with history of COPD with CO2 retention on supplemental oxygen 2 L AFib/atrial flutter on Eliquis diastolic heart failure compression fracture of thoracic vertebra , sacral decubiti admitted on 08/13 for acute on chronic respiratory failure requiring BiPAP support and discharged back to care home on 08/17 comes here for increased shortness of breath started prior to arrival on EMS arrival patient was having gurgling sound was unresponsive had shallow breathing intubated by the EMS patient was trying to bite the tube moving all 4 extremities on arrival fully awake Related Data Home Medications Medication Instructions Recorded Confirmed acetaminophen 325 mg tablet 650 mg PO Q6H PRN temp > 08/13/23 08/21/23 100/general discomfort albuterol sulfate 90 mcg/actuation 1 inh inhalation QID PRN Wheezing 08/13/23 08/21/23 aerosol inhaler (Ventolin HFA) apixaban 5 mg tablet 5 mg PO BID 08/13/23 08/21/23 aspirin 81 mg tablet,delayed 81 mg PO DAILY 08/13/23 08/21/23 release atorvastatin 20 mg tablet 20 mg PO BEDTIME 08/13/23 08/21/23 bisacodyl 10 mg rectal suppository 10 mg NJ Q3D PRN Constipation 08/13/23 08/21/23 (Dulcolax (bisacodyl)) cholecalciferol (vitamin D3) 25 25 mcg PO DAILY 08/13/23 08/21/23 mcg (1,000 unit) tablet collagenase clostridium histo. 250 1 appl topical DAILY 08/13/23 08/21/23 unit/gram topical ointment (Santyl) digoxin 250 mcg (0.25 mg) tablet 250 mcg PO DAILY 08/13/23 08/21/23 diltiazem HCl 180 mg 180 mg PO DAILY 08/13/23 08/21/23 tablet,extended release 24 hr (Cardizem LA) fluticasone 250 mcg-salmeterol 50 1 inh inhalation BID 08/13/23 08/21/23 mcg/dose blistr powdr for inhalation (Advair Diskus) folic acid 1 mg tablet 1 mg PO DAILY 08/13/23 08/21/23 furosemide 40 mg tablet 40 mg PO DAILY 08/13/23 08/21/23 gabapentin 300 mg capsule 600 mg PO TID 08/13/23 08/21/23 guaifenesin 100 mg/5 mL oral liquid 200 mg PO Q8H PRN Cough 08/13/23 08/21/23 hydroxyzine HCl 10 mg tablet 30 mg PO TID PRN Anxiety 08/13/23 08/21/23 ipratropium 0.5 mg-albuterol 3 mg 3 ml inhalation Q6H PRN SHORTNESS 08/13/23 08/21/23 (2.5 mg base)/3 mL nebulization OF BREATH/WHEEZE soln lactulose 10 gram/15 mL oral 20 g PO Q12H PRN Constipation 08/13/23 08/21/23 solution lorazepam 0.5 mg tablet 0.5 mg PO BID PRN Anxiety 08/13/23 08/21/23 magnesium hydroxide 400 mg/5 mL 30 ml PO BEDTIME PRN Constipation 08/13/23 08/21/23 oral suspension (Milk of Magnesia) melatonin 3 mg tablet 3 mg PO BEDTIME 08/13/23 08/21/23 metoprolol succinate 50 mg 50 mg PO BID 08/13/23 08/21/23 tablet,extended release 24 hr multivitamin 1 tab PO DAILY 08/13/23 08/21/23 nicotine 21 mg/24 hr daily 1 patch transdermal DAILY 08/13/23 08/21/23 transdermal patch oxycodone 5 mg tablet 2.5 mg PO Q6H PRN Pain 08/13/23 08/21/23 pantoprazole 40 mg tablet,delayed 40 mg PO DAILY 08/13/23 08/21/23 release (Protonix) sennosides 8.6 mg-docusate sodium 2 tab-cap PO BEDTIME 08/13/23 08/21/23 50 mg tablet (Senna Plus) sertraline 25 mg tablet 25 mg PO DAILY 08/13/23 08/21/23 sodium phosphates 19 gram-7 118 ml NJ DAILY PRN Constipation 08/13/23 08/21/23 gram/118 mL enema (Fleet Enema) thiamine HCl (vitamin B1) 100 mg 100 mg PO DAILY 08/13/23 08/21/23 tablet umeclidinium 62.5 mcg/actuation 1 inh inhalation DAILY 08/13/23 08/21/23 blister powder for inhalation (Incruse Ellipta) Previous Rx's Medication Instructions Recorded prednisone 20 mg tablet 20 mg PO DAILY #3 tabs 08/17/23 Allergies Allergy/AdvReac Type Severity Reaction Status Date / Time codeine Allergy Intermediate Anaphylaxis Verified 08/13/23 14:29 morphine Allergy Anaphylaxis Verified 08/13/23 14:21 Review of Systems Review of Systems: Yes Unobtainable due to mental status [facility] Past Medical History Medical History (Updated 08/21/23 @ 15:10 by Mario Coon MD) Chronic a-fib Decubitus ulcer of back, stage 3 Oxygen dependent History of chronic carbon dioxide retention Compression fracture of thoracic vertebra Breast implant status CHF (congestive heart failure) Pressure ulcer COPD (chronic obstructive pulmonary disease) Osteoporosis Social History Social History Household Members: Other Housing: Correction Patient Tobacco Use Status: Former Tobacco user Tobacco use type: Cigarette Advance Directives: Yes Advance Directives on File: Yes Advance Directives Date on File: 08/18/23 service: No Physical Exam Vital Signs: Vital Signs: Last Vital Signs Temp 98.6 F 08/21/23 10:00 Pulse 94 08/21/23 11:51 Resp 20 08/21/23 12:14 BP 116/55 L 08/21/23 11:51 Pulse Ox 97 08/21/23 11:51 O2 Del Method BiPAP 08/21/23 11:51 O2 Flow Rate 50 08/21/23 11:51 BMI result Body Mass Index 18.6 Appearance: Alert. Intubated moving all 4 extremities. Eyes: PERRLA, ENT: Pharynx normal. Oral Mucosa moist Neck: Normal inspection. Neck supple. CVS: Normal heart rate and rhythm. Pulses normal. Respiratory:mod respiratory distress. Equal air entry bilateral, bilateral wheezing and crackles Abdomen: Soft and nontender. Bowel sounds are present, no mass palpable, no CVA tenderness Skin: Skin warm and dry. Normal skin color. Normal skin turgor. Extremities: No lower extremity edema. No calf tenderness Neuro: Awake moving all 4 extremities Medications Administered Discontinued Medications Generic Name Dose Route Start Last Admin Trade Name Freq PRN Reason Stop Dose Admin Albuterol/Ipratropium 3 ml 08/21/23 08:36 08/21/23 08:44 Albuterol/Iprat 2.5/0.5mg 3 Ml Ampul.Neb INHALE 08/21/23 08:37 3 ml ONCE ONE Administration Furosemide 40 mg 08/21/23 09:54 08/21/23 10:11 Furosemide 40 Mg/4 Ml Vial IVPUSH 08/21/23 09:55 40 mg ONCE ONE Administration Protocol Piperacillin Sod/Tazobactam 50 mls @ 100 mls/hr 08/21/23 09:44 08/21/23 10:56 Sod 3.375 gm/ Sodium Chloride IV 08/21/23 10:13 Infused ONCE ONE Infusion Medical Decision Making Medical Decision Making [facility] Narrative: 8:35 am patient status post intubation for acute respiratory failure on arrival patient is awake alert try to weak expression to remove the tube tearful vitals are stable patient extubated without any difficulty BiPAP at bedside saturating 100% at room air 08:45 patient placed on BiPAP for tachypnea distress initially placed on 30% increased to 50% FiO2 saturating 95% lab workup showed CHF possible infiltrate with COVID-19 will admit to ICU 11:[address] Polanco lye treater will take the patient to ICU for acute on chronic respiratory failure COVID CHF Patient with elevated lactic acid level with COVID-19 likely from hypoxemia with COVID-19 fluid restriction for CHF Differential Diagnosis Differential Diagnoses: The differential diagnosis associated with the presentation includes CHF/pneumonia/COVID/COPD/sepsis Admission/Observation Consideration of admission/observation: Escalation of care including admission/observation considered Consult Healthcare Provider Management of the patient was discussed with: Research Technician Instructor Painting Lab Data [facility] Lab Attestation statement: I reviewed the patient's lab results. 08/21/23 09:43 08/21/23 10:53 Labs: Lab Results 08/21/23 08/21/23 08/21/23 Range/Units 08:25 09:42 09:43 WBC 22.7 H (4.8-10.8) X10*3/uL RBC 3.64 L (4.20-5.50) X10*6/uL Hgb 10.9 L (12.0-16.0) g/dl Hct 35.4 L (37.0-47.0) % MCV 97.3 (80.0-98.0) fL MCH 29.9 (27.0-33.0) pg MCHC 30.8 L (31.0-35.0) g/dl RDW 13.9 (11.0-16.0) % Plt Count 365 (160-400) X10*3/uL MPV 9.4 (9.4-12.3) fL Immature Gran % (Auto) 4.8 H (0.0-0.4) % Neut % (Auto) 90.6 H (45-73) % Lymph % (Auto) 3.1 L (20-40) % Dane % (Auto) 1.1 L (2-11) % Eos % (Auto) 0.0 (0-4) % Baso % (Auto) 0.4 (0-2) % Lymph # (Auto) 0.7 L (1.2-4.9) X10*3/uL Dane # (Auto) 0.2 (0.1-1.2) X10*3/uL Eos # (Auto) 0.0 (0.0-0.4) X10*3/uL Baso # (Auto) 0.1 (0.0-0.2) X10*3/uL Abs Immat Gran (auto) 1.09 H (0.00-0.03) X10*3/uL Absolute Neuts (auto) 20.5 H (2.0-8.3) x10*3/uL Absolute Nucleated RBC 0.020 H (0.0-0.012) X10*3/uL Nucleated RBC % (auto) 0.1 (0.0-0.2) /100WBC Smear Tech's Comments VERIFIED PT (11.1-13.3) SEC INR (0.9-1.1) VBG pH (7.32-7.43) VBG pCO2 mmHg VBG pO2 mmHg VBG HCO3 (22-26) mmol/L VBG O2 Saturation % VBG Base Excess mmol/L Sodium (135-145) mmol/L Potassium (3.3-5.1) mmol/L Chloride (96-108) mmol/L Carbon Dioxide (22-29) mmol/L Anion Gap (12-20) BUN (9-16) mg/dL Creatinine (0.5-1.4) mg/dL Estim Creat Clear Calc Estimated GFR POC Glucose 197 H (60-115) mg/dL Random Glucose (60-115) mg/dL Lactic Acid 3.8 H* (0.5-2.0) mmol/L Lactic Acid F/U @ 2Hr (0.5-2.0) mmol/L Calcium (8.4-10.2) mg/dL Total Bilirubin (0.0-1.0) mg/dL AST (5-31) U/L ALT (0-31) U/L Alkaline Phosphatase (39-117) U/L Troponin I High Sens 11.9 (<3.5-17.0) ng/L B-Natriuretic Peptide (<100) pg/mL Total Protein (6.5-8.0) g/dL Albumin (3.5-5.0) g/dL COVID-19 ([facility]) Positive A (Negative) COVID-19 Clin Com See Note 08/21/23 08/21/23 08/21/23 Range/Units 10:53 11:54 11:57 WBC (4.8-10.8) X10*3/uL RBC (4.20-5.50) X10*6/uL Hgb (12.0-16.0) g/dl Hct (37.0-47.0) % MCV (80.0-98.0) fL MCH (27.0-33.0) pg MCHC (31.0-35.0) g/dl RDW (11.0-16.0) % Plt Count (160-400) X10*3/uL MPV (9.4-12.3) fL Immature Gran % (Auto) (0.0-0.4) % Neut % (Auto) (45-73) % Lymph % (Auto) (20-40) % Dane % (Auto) (2-11) % Eos % (Auto) (0-4) % Baso % (Auto) (0-2) % Lymph # (Auto) (1.2-4.9) X10*3/uL Dane # (Auto) (0.1-1.2) X10*3/uL Eos # (Auto) (0.0-0.4) X10*3/uL Baso # (Auto) (0.0-0.2) X10*3/uL Abs Immat Gran (auto) (0.00-0.03) X10*3/uL Absolute Neuts (auto) (2.0-8.3) x10*3/uL Absolute Nucleated RBC (0.0-0.012) X10*3/uL Nucleated RBC % (auto) (0.0-0.2) /100WBC Smear Tech's Comments PT 17.8 H (11.1-13.3) SEC INR 1.5 H (0.9-1.1) VBG pH 7.36 (7.32-7.43) VBG pCO2 73 mmHg VBG pO2 58 mmHg VBG HCO3 42 H (22-26) mmol/L VBG O2 Saturation 83.0 % VBG Base Excess 13.6 mmol/L Sodium 138 (135-145) mmol/L Potassium 4.1 D (3.3-5.1) mmol/L Chloride 97 (96-108) mmol/L Carbon Dioxide 29 (22-29) mmol/L Anion Gap 16 (12-20) BUN 12 (9-16) mg/dL Creatinine 0.51 (0.5-1.4) mg/dL Estim Creat Clear Calc 92.0 Estimated GFR > 60 POC Glucose (60-115) mg/dL Random Glucose 136 H (60-115) mg/dL Lactic Acid (0.5-2.0) mmol/L Lactic Acid F/U @ 2Hr 1.7 (0.5-2.0) mmol/L Calcium 8.6 D (8.4-10.2) mg/dL Total Bilirubin 0.4 (0.0-1.0) mg/dL AST 54 H (5-31) U/L ALT 32 H (0-31) U/L Alkaline Phosphatase 158 H (39-117) U/L Troponin I High Sens (<3.5-17.0) ng/L B-Natriuretic Peptide 422 H (<100) pg/mL Total Protein 5.9 L (6.5-8.0) g/dL Albumin 3.3 L (3.5-5.0) g/dL COVID-19 ([facility]) (Negative) COVID-19 Clin Com Independent Interpretation I performed an independent interpretation of an: EKG Interpretation: Atrial flutter with heart rate 93 beats per minute with variable block nonspecific ST T wave changes no acute ischemia Radiology Impression Discussion of test interpretation with radiology: I have reviewed the radiologist's reading. Critical Care Time Critical Care Time Critical Care Time: Yes Total Critical Care Time: 55 Attestation: The patient was critically ill with a high probability of imminent or life threatening deterioration. I spent greater than 60 minutes of discontinuous time evaluating the patient,delivering critical care at the bedside, discussing and evaluating pertinent data with consultants. Critical care time does not include time spent performing separately billable procedures or teaching. Total time spent performing critical care was 55 minutes. Discharge Plan Discharge Clinical Impression: COVID-19, Acute respiratory failure with hypoxia, Congestive heart failure (CHF) Patient Disposition: Admitted As Inpatient
--- NOTE | 2023-08-21 08:27 | ECG_ITS ---
Test Reason : RESPIRATORY DISTRESS Blood Pressure : / mmHG Vent. Rate : 093 BPM Atrial Rate : 337 BPM P-R Int : 000 ms QRS Dur : 092 ms QT Int : 300 ms P-R-T Axes : 000 061 218 degrees QTc Int : 373 ms Atrial flutter with variable A-V block ST & T wave abnormality, consider lateral ischemia inferior ischemia Abnormal ECG When compared with ECG of 13-AUG-2023 08:31, Atrial flutter has replaced Atrial fibrillation Referred By: Mario Coon Electronically Signed By:MUNIR PRATHER MD
--- OUTSIDE RECORDS SUMMARY | 2023-08-21 08:35 | XMS_ITS | Continuity of Care Document ---
Author Name Unknown Organization 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 [address] [place], [place] [address] Allergies, Adverse Reactions, Alerts Substance Reaction Severity Status codeine Rash Nausea Moderate Active sulfADIAZINE Rash Moderate Active Lyrica increased depression Active morphine respiratory depression Activ e Immunizations Given and Recorded Vaccine Date Status Refusal Reason influenza virus vaccine, inactivated 1 10/09/21 Gi ike influenza virus vaccine, inactivated 2 10/20/17 Re corded influenza virus vaccine, inactivated 08/03/16 Doug rded influenza virus vaccine, inactivated 3 09/19/15 Gi ike influenza virus vaccine, inactivated 09/15/13 Doug rded influenza virus vaccine, inactivated 09/08/12 Doug rded influenza virus vaccine, inactivated 4 10/29/11 Re corded SARS-CoV-2 (COVID-19) mRNA BNT-162b2 vac 08/26/21 Recorded SARS-CoV-2 (COVID-19) mRNA BNT-162b2 vac 01/28/21 Recorded SARS-CoV-2 (COVID-19) mRNA BNT-162b2 vac 01/07/21 Recorded tetanus/diphtheria/pertussis, acel(Tdap) 5 04/19/12 Recorded pneumococcal 23-valent vaccine 6 07/31/10 Recorded 1Result Comment: [id number] given w/out incident 2Location History: [place], [place] 3Admin Note: done @ dr jones office 4Location History: [facility] 5Location History: [facility] 6Location History: [facility] Medications aspirin 81 mg oral delayed release tablet 81 mg, 1, tablet, By Mouth, Daily, # 30 tablet, Refills 0, Tot. Refills 0, Maintenance, 11/06/21 10:22:00 EST, Do Not Route, Partial fill upon patient request if the prescription is for a schedule IIopioid drug. Start Date: 11/06/21 Status: Ordered atorvastatin 20 mg oral tablet 1 tablet = 20 mg, By Mouth, Daily, 0 Refills, Maintenance, 12/17/21 10:33:00 EST, Tablet, Partial fill upon patient request if the prescription is for a schedule II opioid drug. Start Date: 12/17/21 Status: Ordered azithromycin 500 mg oral tablet 1 tablet = 500 mg, By Mouth, Every Wednesday, Wednesday and Wednesday Start Date: 10/29/21 Status: Ordered B 100 Complex oral tablet 1 tablet, By Mouth, Daily, Maintenance, 12/20/21 17:59:00 EST, Tablet, Partial fill upon patient request if the prescription is for a schedule II opioid drug. Start Date: 12/20/21 Status: Ordered busPIRone 5 mg oral tablet 5 mg, 1, tablet, By Mouth, Daily in AM, # 30 tablet, Refills 2, Tot. Refills 2, Maintenance, 01/15/22 12:48:00 EDT, Route to Pharmacy Electronically, [facility] #[id number], Partial fill upon patient request if the prescription is for a schedule... Start Date: 01/15/22 Status: Ordered Colace sodium 100 mg oral capsule 100 mg, 1, capsule, By Mouth, 2 times a day, PRN, # 60 capsule, Refills 5, Tot. Refills 5, Maintenance, for constipation, 01/14/22 11:17:00 EDT, Route to Pharmacy Electronically, [facility]#[id number], Partial fill upon patient request if the pr... Start Date: 01/14/22 Status: Ordered diltiazem 180 mg/24 hours oral capsule, extended release 180 mg, 1, capsule, By Mouth, Daily, # 30 capsule, Refills 0, Tot. Refills 0, Maintenance, 11/06/2209:09:00 EST, Route to Pharmacy Electronically, [facility] #[id number], Partial fill upon patient request if the prescription is for a schedule II... Start Date: 11/06/21 Status: Ordered Flonase 50 mcg/inh nasal spray 1 sprays, Nares, Both, Daily in AM, # 16 Gm, 4 Refills, Maintenance, 12/03/21 12:34:00 EST, [place], [facility] #[id number], Partial fill upon patient request if the prescription is for a scheduleII opioid drug., 1 sprays Nares, Both Daily in AM,... Start Date: 12/03/21 Status: Ordered folic acid 1 mg oral tablet 1 mg, 1, tablet, By Mouth, Daily, # 30 tablet, Refills 5, Tot. Refills 5, Maintenance, 01/31/21 16:35:00 EDT, Route to Pharmacy Electronically, [facility] #[id number], 170, cm, 10/02/20 10:06:00EST, Height, 56.3, kg, 11/24/19 22:58:00 EST, Dry W... Start Date: 01/31/21 Status: Ordered furosemide 40 mg oral tablet 40 mg, 1, tablet, By Mouth, Daily, Refills 0, Maintenance, 12/17/21 10:36:00 EST, Partial fill uponpatient request if the prescription is for a schedule II opioid drug. Start Date: 12/17/21 Status: Ordered gabapentin 300 mg oral capsule 2, capsule, By Mouth, 3 times a day, # 180 capsule, Refills 1, Tot. Refills 1, Maintenance, 08/26/21 10:50:00 EDT, Route to Pharmacy Electronically, [facility] #[id number], 162.56, cm, 08/22/21 2:36:00 EDT, Height, 52.65, kg, 08/22/21 2:36:00 EDT... Start Date: 08/26/21 Status: Ordered lactulose 10 gm/15 ml oral syrup 15 mL = 10 Gm, By Mouth, Every 72 hours, PRN as needed for constipation, # 300 mL, 5 Refills, Maintenance, 01/05/22 10:50:00 EST, Syrup, [facility] #[id number], Partial fill upon patient requestif the prescription is for a schedule II opioid ivonne... Start Date: 01/05/22 Status: Ordered LORazepam 0.5 mg oral tablet 1 tablet = 0.5 mg, By Mouth, 2 times a day, PRN as needed for anxiety, Maintenance, 12/20/21 17:53:00 EST, Tablet, Partial fill upon patient request if the prescription is for a schedule II opioid drug. Start Date: 12/20/21 Status: Ordered Metoprolol Succinate ER 25 mg oral tablet, extended release 1 tablet = 25 mg, By Mouth, Daily Start Date: 12/17/21 Status: Ordered nicotine 21 mg/24 hr transdermal film, extended release 1 patch, Topically, Daily, for 6 week(s), # 42 patch, 0 Refills, Acute 02/06/22 16:15:00 EDT, 12/26/21 16:15:00 EST, Patch, [facility] #[id number], Partial fill upon patient request if the prescription is for a schedule II opioid drug., 1 patch T... Start Date: 12/26/21 Stop Date: 02/06/22 Status: Ordered nitroglycerin 0.3 mg sublingual tablet 1 tablet = 0.3 mg, Sublingual, Every 5 minutes, PRN as needed for chest pain, not to exceed 3 doses/15 min--if pain persists, seek medical attention, Maintenance, 12/20/21 17:55:00 EST, Tablet, Partial fill upon patient request if the prescription is... Start Date: 12/20/21 Status: Ordered omeprazole 20 mg oral enteric coated capsule 1 capsule = 20 mg, By Mouth, Daily, Maintenance, 12/20/21 18:00:00 EST, EC Capsule, Partial fill upon patient request if the prescription is for a schedule II opioid drug. Start Date: 12/20/21 Status: Ordered pantoprazole 40 mg oral delayed release tablet 1 tablet = 40 mg, By Mouth, Daily, # 14 tablet, 0 Refills, Maintenance, 12/22/21 14:06:00 EST, EC Tablet, 170, cm, 12/22/21 8:10:00 EST, Height, 44.1, kg, 12/20/21 16:05:00 EST, Dry Weight Start Date: 12/22/21 Stop Date: 01/05/22 Status: Ordered predniSONE 10 mg oral tablet 4 tablet = 40 mg, By Mouth, Daily, please take 4 tablets daily for 3 days and later go back to daily dose of 5 mg daily, # 12 tablet, 0 Refills, Maintenance, 12/22/21 14:25:00 EST, Tablet, [facility] #[id number], Partial fill upon patient requ... Start Date: 12/22/21 Stop Date: 12/25/21 Status: Ordered predniSONE 10 mg oral tablet See Instructions, 4 tabs x 3 days, 3 tabs x 3 days, 2 tabs x 3 days, 1 tab x 3 days, # 30 tablet, 0Refills, Acute 02/07/22 11:15:00 EDT, 01/05/22 11:08:00 EST, Tablet, [facility] #[id number], Partial fill upon patient request if the prescription... Start Date: 01/05/22 Stop Date: 02/07/22 Status: Ordered predniSONE 5 mg oral tablet 1 tablet = 5 mg, By Mouth, Daily, 0 Refills, Maintenance, 11/06/21 10:25:00 EST, Tablet, Partial fill upon patient request if the prescription is for a schedule II opioid drug. Start Date: 11/06/21 Status: Ordered Senna 8.6 mg oral tablet 17.2 mg, 2, tablet, By Mouth, Daily at bedtime, PRN, # 100 tablet, Refills 0, Tot. Refills 0, Maintenance, for constipation, 10/22/21 15:09:00 EST, Route to Pharmacy Electronically, [facility] #[id number] Tablet, Partial fill upon patient request... Start Date: 10/22/21 Status: Ordered Spiriva HandiHaler 18 mcg Inhalation Capsule = 18 mcg, Inhalation, Daily, 0 Refills, Maintenance, 03/11/15 17:50:09 EDT Start Date: 03/11/15 Status: Ordered Symbicort 160mcg/4.5mcg Inhaler 2, puffs, Inhalation, 2 times a day, Refills 0, Maintenance, 04/16/16 9:09:16 EDT, Aerosol Start Date: 04/16/16 Status: Ordered Tums 500 mg oral tablet, chewable 1,500 mg, 3, tablet, Chew, 3 times a day, PRN, Maintenance, heartburn, 12/20/21 17:55:00 EST, Partial fill upon patient request if the prescription is for a schedule II opioid drug. Start Date: 12/20/21 Status: Ordered Tylenol 8 HR Arthritis Pain 650 mg oral tablet, extended release 1 tablet = 650 mg, By Mouth, Every 8 hours, PRN Pain , Moderate, # 100 tablet, 1 Refills, Maintenance, 02/26/21 15:47:00 EDT, ER Tablet, [facility] #[id number], Partial fill upon patient requestif the prescription is for a schedule II opioid ivonne... Start Date: 02/26/21 Status: Ordered Ventolin HFA 108 mcg/inh inhalation aerosol with adapter 2 puffs, Inhalation, 4 times a day, PRN for wheezing, # 1 each, 0 Refills, Maintenance, 10/02/20 10:55:00 EST, Aerosol, [facility] #[id number], 170, cm, 10/02/20 10:06:00 EST, Height, 56.3, kg, 11/24/19 22:58:00 EST, Dry Weight Start Date: 10/02/20 Status: Ordered Vitamin D3 1000 intl units oral capsule 1 capsule = 25 mcg, By Mouth, Daily, # 30 capsule, 11 Refills, Maintenance, 12/02/21 10:55:00 EST, Capsule, [facility] #[id number], Partial fill upon patient request if the prescription is for aschedule II opioid drug., 173, cm, 11/06/21 7:58:00... Start Date: 12/02/21 Status: Ordered Problem List Condition Effective Dates Status Health Status Inform ant Anxiety(Confirmed) Active At risk for falls(Confirmed) Active AF (atrial fibrillation)(Confirmed) Active Bradycardia(Confirmed) Active Cervical radiculopathy(Confirmed) Active Chronic respiratory failure with hypoxia(Confirmed) Active Thoracic compression fracture(Confirmed) Active Compression fracture of spine(Confirmed) Active Peripheral neuropathy(Confirmed) Active End stage COPD(Confirmed) Active Hyperlipidemia(Confirmed) Active Pulmonary nodule(Confirmed) Active Osteoporosis(Confirmed) Active Breast pain(Confirmed) Active Raynaud's phenomenon(Confirmed) Active Rectal bleed(Confirmed) Active Leg swelling(Confirmed) Active Abnormal TSH(Confirmed) Active Underweight(Confirmed) Active Social History Social History Type Response Tobacco Other: now smoking 1 /2 pack per day. Sex
--- OUTSIDE RECORDS SUMMARY | 2023-08-21 08:35 | XMS_ITS | Continuity of Care Document ---
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 Role Phone Graciela Nunez MD Primary Care Physician [place] [facility] [place]22 [facility] [address] [place], [place] [address] Allergies, Adverse Reactions, Alerts Substance Reaction Severity Status codeine Rash Nausea Moderate Active sulfADIAZINE Rash Moderate Active morphine respiratory depression Activ e Lyrica increased depression Active Immunizations Given and Recorded Vaccine Date Status [...] 23-valent vaccine 6 07/31/10 Recorded 1Result Comment: [id number] given w/out incident 2Location History: [place], [place] 3Admin Note: done @ dr jones office 4Location History: [facility] 5Location History: [facility] 6Location History: [facility] Medications aspirin 81 mg [...] opioid drug. Start Date: 12/20/21 Status: Ordered Colace sodium 100 mg oral capsule 100 mg, 1, capsule, By Mouth, 2 times a day, PRN, # 60 capsule, Refills 1, Tot. Refills 1, Maintenance, for constipation, 10/22/21 15:09:00 EST, Route to Pharmacy Electronically, [facility][id number], Partial fill upon patient request if the pr... Start Date: 10/22/21 Status: Ordered diltiazem 180 mg/24 hours oral capsule, extended release 180 mg, 1, capsule, By Mouth, Daily, # 30 capsule, Refills 0, Tot. Refills 0, Maintenance, 11/06/2209:09:00 EST, Route to Pharmacy Electronically, [facility] #[id number], Partial fill upon patient request if the prescription is for a schedule II... Start Date: 11/06/21 Status: Ordered Flonase 50 mcg/inh nasal spray 1 sprays, Nares, Both, Daily in AM, # 16 Gm, 4 Refills, Maintenance, 12/03/21 12:34:00 EST, [place], [facility] #[id number], Partial fill upon patient request if the prescription is for a scheduleII opioid drug., 1 sprays Nares, Both Daily in AM,... Start Date: 12/03/21 Status: Ordered folic acid 1 mg oral tablet 1 mg, 1, tablet, By Mouth, Daily, # 30 tablet, Refills 5, Tot. Refills 5, Maintenance, 01/31/21 16:35:00 EDT, Route to Pharmacy Electronically, [facility] #[id number], 170, cm, 10/02/20 10:06:00EST, Height, 56.3, kg, [...] 08/26/21 10:50:00 EDT, Route to Pharmacy Electronically, [facility] #[id number], 162.56, cm, 08/22/21 2:36:00 EDT, Height, 52.65, kg, 08/22/21 2:36:00 EDT... Start Date: 08/26/21 Status: Ordered lactulose 10 gm/15 ml oral syrup 15 mL = 10 Gm, By Mouth, Daily, PRN as needed for constipation, for 10 days, # 150 mL, 0 Refills, Acute 01/04/22 10:44:00 EST, 12/25/21 10:44:00 EST, Syrup, [facility] #[id number], Partial fill upon patient request if the prescription is for a sc... Start Date: 12/25/21 Stop Date: 01/04/22 Status: Ordered LORazepam 0.5 mg oral tablet [...] Mouth, Daily Start Date: 12/17/21 Status: Ordered Milk of Magnesia 8% oral suspension 60 mL = 4.8 Gm, By Mouth, Daily, PRN for constipation, # 600 mL, 0 Refills, Acute 01/10/22 10:26:00EST, 12/17/21 10:18:00 EST, [place], [facility] #[id number], Partial fill upon patient request if the prescription is for a schedule II opioid... Start Date: 12/17/21 Stop Date: 01/10/22 Status: Ordered nicotine 21 mg/24 hr transdermal film, extended release 1 patch, Topically, Daily, for 6 week(s), # 42 patch, 0 Refills, Acute 02/06/22 16:15:00 EDT, 12/26/21 16:15:00 EST, Patch, [facility] #[id number], Partial fill upon patient request if the prescription is for a schedule II opioid drug., 1 patch T... Start Date: 12/26/21 Stop Date: 02/06/22 Status: Ordered nicotine 7 mg/24 hr transdermal film, extended release 1 patch, Topically, Daily, for 14 days, # 14 patch, 0 Refills, Acute 01/05/22 14:10:00 EST, 12/22/21 14:10:00 EST, Patch, [facility] #[id number], Partial fill upon patient request if the prescription is for a schedule II opioid drug., 1 patch Top... Start Date: 12/22/21 Stop Date: 01/05/22 Status: Ordered nitroglycerin 0.3 mg sublingual tablet [...] 0 Refills, Maintenance, 12/22/21 14:25:00 EST, Tablet, [facility] #[id number], Partial fill upon patient requ... Start Date: 12/22/21 Stop Date: 12/25/21 Status: Ordered predniSONE 5 mg oral tablet [...] 10/22/21 15:09:00 EST, Route to Pharmacy Electronically, [facility] #[id number] Tablet, Partial fill upon patient request... Start [...] Refills, Maintenance, 02/26/21 15:47:00 EDT, ER Tablet, [facility] #[id number], Partial fill upon patient requestif the prescription is for a schedule II opioid ivonne... Start Date: 02/26/21 Status: Ordered Ventolin HFA 108 mcg/inh inhalation aerosol with adapter 2 puffs, Inhalation, 4 times a day, PRN for wheezing, # 1 each, 0 Refills, Maintenance, 10/02/20 10:55:00 EST, Aerosol, [facility] #[id number], 170, cm, 10/02/20 10:06:00 EST, Height, 56.3, kg, 11/24/19 22:58:00 EST, Dry Weight Start Date: 10/02/20 Status: Ordered Vitamin D3 1000 intl units oral capsule 1 capsule = 25 mcg, By Mouth, Daily, # 30 capsule, 11 Refills, Maintenance, 12/02/21 10:55:00 EST, Capsule, [facility] #[id number], Partial fill upon patient request if the prescription is for aschedule II opioid drug., 173, cm, 11/06/21 7:58:00... Start Date: 12/02/21 Status: Ordered Xarelto 20 mg oral tablet TAKE 1 TABLET BY MOUTH EVERY DAY WITH FOOD Start Date: 12/17/21 Status: Ordered Problem List Condition Effective Dates [...]
--- OUTSIDE RECORDS SUMMARY | 2023-08-21 08:35 | XMS_ITS | Continuity of Care Document ---
Author Name Unknown Organization [facility] Address [address] [place] [address]- Care Team Providers Care Shagger Name Role Phone Mayra ORTIZ, Graciela Lares Primary Care Physician [phone] Encounter [facility] Date(s): 02/25/21 - 03/27/21 [facility] [address] [place], [place] [address] Allergies, Adverse Reactions, Alerts Substance Reaction Severity Status codeine Rash Nausea Moderate Active sulfADIAZINE Rash Moderate Active morphine respiratory depression Activ e Immunizations Given and Recorded Vaccine Date Status Refusal Reason influenza virus vaccine, inactivated 1 10/20/17 Re corded influenza virus vaccine, inactivated 2 09/19/15 Gi ike influenza virus vaccine, inactivated 3 10/29/11 Re corded tetanus/diphtheria/pertussis, acel(Tdap) 4 04/19/12 Recorded pneumococcal 23-valent vaccine 5 07/31/10 Recorded 1Location History: [place], [place] 2Admin Note: done @ dr jones office 3Location History: [facility] 4Location History: [facility] 5Location History: [facility] Medications alendronate 70 mg oral tablet 0 Refills, Maintenance, 07/13/19 10:24:47 EDT Start Date: 07/13/19 Status: Ordered aspirin 81 mg oral tablet 1 tablet = 81 mg, By Mouth, Daily, # 30 tablet, 0 Refills, Maintenance, 04/16/16 9:15:50, Tablet Start Date: 04/16/16 Status: Ordered azithromycin 250 mg oral tablet See Instructions, 1 tab every other day, 0 Refills, Maintenance, 07/29/20 10:50:00 EDT, Tablet Start Date: 07/29/20 Status: Ordered Bed Wedge Bed Wedge, See Instructions, # 1 each, Refills 0, Tot. Refills 0, Maintenance, IDC 10: J44.1, J43.9Length of need: life time Hgt: 5' 7 Wgt 125 Lbs, 12/25/19 14:30:00 EST, Compound Start Date: 12/25/19 Status: Ordered busPIRone 5 mg oral tablet See Instructions, take 1/2 to 1 tablet by mouth daily as needed for anxiety, # 30 tablet, Refills 2, Tot. Refills 2, Maintenance, 01/31/20 16:40:00 EDT, Instructions Replace Required Details, Route to Pharmacy Electronically, [facility] #[id number]... Start Date: 01/31/20 Status: Ordered folic acid 1 mg oral tablet 1 mg, 1, tablet, By Mouth, Daily, # 30 tablet, Refills 5, Tot. Refills 5, Maintenance, 01/31/21 16:35:00 EDT, Route to Pharmacy Electronically, [facility] #[id number], 170, cm, 10/02/20 10:06:00EST, Height, 56.3, kg, 11/24/19 22:58:00 EST, Dry W... Start Date: 01/31/21 Status: Ordered furosemide 20 mg oral tablet 1, tablet, By Mouth, Daily, PRN, # 90 tablet, Refills 0, Tot. Refills 0, Maintenance, NEEDED FORLEG SWELLING, 04/19/20 15:50:00 EDT, Route to Pharmacy Electronically, [facility] #[id number],170, cm, 12/13/19 13:51:00 EST, Height, 56.3, kg, 0... Start Date: 04/19/20 Status: Ordered gabapentin 300 mg oral capsule 600 mg, 2, capsule, By Mouth, 3 times a day, # 180 capsule, Refills 3, Tot. Refills 3, Maintenance,02/03/21 12:09:00 EDT, Route to Pharmacy Electronically, [facility] #[id number], 170, cm, 10/02/20 10:06:00 EST, Height, 56.3, kg, 11/24/19 22:58:... Start Date: 02/03/21 Status: Ordered gabapentin 300 mg oral capsule 2, capsule, By Mouth, 3 times a day, # 180 capsule, Refills 0, Tot. Refills 0, Maintenance, 03/25/21 9:48:00 EDT, Route to Pharmacy Electronically, [facility] #[id number], 170, cm, 10/02/20 10:06:00 EST, Height, 56.3, kg, 11/24/19 22:58:00 EST, D... Start Date: 03/25/21 Status: Ordered Home Blood Pressure Monitor See Instructions, # 1 Unknown, Maintenance, DX: Bradycardia, R00.1 low heart rate USE DAILY LIFETIME USE HEIGHT 170CM WEIGHT 56KG, 12/13/19 13:56:00 EST, Compound Start Date: 12/13/19 Status: Ordered Metoprolol Succinate ER 25 mg oral tablet, extended release 1 tablet = 25 mg, By Mouth, Daily, # 90 tablet, 1 Refills, Maintenance, 01/29/20 10:50:00 EDT, XL Tablet, [facility] #[id number], 170, cm, 12/13/19 13:51:00 EST, Height, 56.3, kg, 11/24/19 22:58:00 EST, Dry Weight Start Date: 01/29/20 Status: Ordered PULSE OXIMETER PULSE OXIMETER, See Instructions, # 1 Unknown, Refills 0, Tot. Refills 0, Maintenance, DX: HYPOXIA R09.2 USE DAILY LIFETIME USE, 12/13/19 13:58:00 EST, Compound Start Date: 12/13/19 Status: Ordered Robaxin-750 750 mg oral tablet 2 tablet = 1,500 mg, By Mouth, 3 times a day, PRN Pain , Moderate, # 90 tablet, 3 Refills, Maintenance, 03/13/21 13:26:00 EDT, Tablet, [facility] #[id number], 170, cm, 10/02/20 10:06:00 EST, Height, 56.3, kg, 11/24/19 22:58:00 EST, Dry Weight Start Date: 03/13/21 Status: Ordered Shower Chair See Instructions, # 1 Unknown, Maintenance, dx: PERIPHERAL NEUROPATHY G62.9 cervical radiculopathy M54.12 height 170cm weight 56kg use daily, 12/13/19 13:59:00 EST, Compound Start Date: 12/13/19 Status: Ordered Spiriva HandiHaler 18 mcg Inhalation Capsule 0 Refills, Maintenance, 03/11/15 17:50:09 Start Date: 03/11/15 Status: Ordered Symbicort 160mcg/4.5mcg Inhaler 2, puffs, Inhalation, 2 times a day, # 10.2 Gm, Refills 0, Maintenance, 04/16/16 9:09:16, Aerosol Start Date: 04/16/16 Status: Ordered tiZANidine 2 mg oral tablet 2 mg, 1, tablet, By Mouth, 3 times a day, PRN, # 42 tablet, Refills 0, Tot. Refills 0, Maintenance,as needed for muscle spasm, 02/18/21 16:23:00 EDT, Route to Pharmacy Electronically, [facility] #[id number], Partial fill upon patient request if... Start Date: 02/18/21 Stop Date: 03/04/21 Status: Ordered Tylenol 8 HR Arthritis Pain 650 mg oral tablet, extended release 1 tablet = 650 mg, By Mouth, Every 8 hours, PRN Pain , Moderate, # 100 tablet, 1 Refills, Maintenance, 02/26/21 15:47:00 EDT, ER Tablet, [facility] #[id number], Partial fill upon patient requestif the prescription is for a schedule II opioid ivonne... Start Date: 02/26/21 Status: Ordered Ventolin HFA 108 mcg/inh inhalation aerosol with adapter 2 puffs, Inhalation, 4 times a day, PRN for wheezing, # 18 Gm, 6 Refills, Maintenance, 06/17/20 16:11:00 EDT, Aerosol, [facility] #[id number], 170, cm, 12/13/19 13:51:00 EST, Height, 56.3, kg, 11/24/19 22:58:00 EST, Dry Weight Start Date: 06/17/20 Stop Date: 01/13/21 Status: Ordered Ventolin HFA 108 mcg/inh inhalation aerosol with adapter 2 puffs, Inhalation, 4 times a day, PRN for wheezing, # 1 each, 0 Refills, Maintenance, 10/02/20 10:55:00 EST, Aerosol, [id number], 170, cm, 10/02/20 10:06:00 EST, Height, 56.3, kg, 11/24/19 22:58:00 EST, Dry Weight Start Date: 10/02/20 Status: Ordered Vitamin B1 100 mg oral tablet 1, tablet, By Mouth, Daily, # 30 tablet, Refills 7, Tot. Refills 0, Acute, 01/06/21 14:35:00 EST, Route to Pharmacy Electronically, [facility] #[id number], 170, cm, 10/02/20 10:06:00 EST, Height, 56.3, kg, 11/24/19 22:58:00 EST, Dry Weight Start Date: 01/06/21 Status: Ordered Zofran 4 mg oral tablet 1 tablet = 4 mg, By Mouth, 3 times a day, PRN nausea, # 30 tablet, 0 Refills, Maintenance, :17:00 EDT, Tablet, [facility] #[id number], 170, cm, 12/13/19 13:51:00 EST, Height, 56.3, kg, 11/24/19 22:58:00 EST, Dry Weight Start Date: 06/12/20 Stop Date: 06/22/20 Status: Ordered Problem List Condition Effective Dates Status Health Status Inform ant Anxiety(Confirmed) Active At risk for falls(Confirmed) Active Bradycardia(Confirmed) Active Cervical radiculopathy(Confirmed) Active Thoracic compression fracture(Confirmed) Active Cardiac arrhythmia(Confirmed) Active Peripheral neuropathy(Confirmed) Active Hyperlipidemia(Confirmed) Active Hypoxia(Confirmed) Active Pulmonary nodule(Confirmed) Active Osteoporosis(Confirmed) Active Breast pain(Confirmed) Active Emphysema/COPD(Confirmed) Active Raynaud's phenomenon(Confirmed) Active Leg swelling(Confirmed) Active Abnormal TSH(Confirmed) Active Social History Social History Type Response Smoking Status Current every day maria elena penn; Tobacco use times per day: smokes about 1.5 packs per day; entered on: 04/16/16 Sex
--- OUTSIDE RECORDS SUMMARY | 2023-08-21 08:35 | XMS_ITS | Continuity of Care Document ---
Author Name Unknown Organization [facility] Address [address] [place] [address]- Care Team Providers Care Supervisor Fertilizer Name Role Phone Graciela Nunez MD Primary Care Physician [phone] [place] [facility] [place]/23 [facility] [address] [place], [place] [address] Allergies, Adverse Reactions, Alerts Substance Reaction Severity [...] 23-valent vaccine 6 07/31/10 Recorded 1Result Comment: [id number] given w/out incident 2Location History: [place], [place] 3Admin Note: done @ dr jones office 4Location History: [facility] 5Location History: [facility] 6Location History: [facility] Medications aspirin 81 mg oral delayed release tablet 81 mg, 1, tablet, By Mouth, Daily, # 30 tablet, Refills 0, Tot. Refills 0, Maintenance, 11/06/21 10:22:00 EST, Do Not Route, Partial fill upon patient request if the prescription is for a schedule IIopioid drug. Start Date: 11/06/21 Status: Ordered atorvastatin 20 mg oral tablet TAKE 1 TABLET BY MOUTH ONCE DAILY Start Date: 12/03/22 Status: Ordered azithromycin 500 mg oral tablet 1 tablet = 500 mg, By Mouth, Every Wednesday, Wednesday and Wednesday Start Date: 10/29/21 Status: Ordered baclofen 10 mg oral tablet See Instructions, TAKE 1 TABLET BY MOUTH TWICE A DAY NEEDED FOR PAIN FOR 14 DAYS, # 28 tablet, Refills 2, Maintenance, 03/26/23 16:45:00 EDT, Instructions Replace Required Details, Route to Pharmacy Electronically, [facility] [id number], 170, cm, ... Start Date: 03/26/23 Status: Ordered baclofen 10 mg oral tablet 10 mg, 1, tablet, By Mouth, 2 times a day, PRN, # 28 tablet, Refills 2, Tot. Refills 2, Maintenance, Pain , Moderate, 02/11/23 12:27:00 EDT, Route to Pharmacy Electronically, [facility] #[id number], Partial fill upon patient request if the prescription is... Start Date: 02/11/23 Stop Date: 03/25/23 Status: Ordered docusate sodium 100 mg oral capsule TAKE 1 CAPSULE BY MOUTH 2 TIMES A DAY NEEDED FOR CONSTIPATION. FILLED AT [facility] Start Date: 03/18/23 Status: Ordered folic acid 1 mg oral tablet 1 mg, 1, tablet, By Mouth, Daily, # 30 tablet, Refills 11, Tot. Refills 11, Maintenance, 12/03/22 9:01:00 EST, Route to Pharmacy Electronically, [facility]/pharmacy #[id number], 170, cm, 02/04/22 11:19:00 EDT, Height, 44.1, kg, 12/20/21 16:05:00 EST, Dry Weight Start Date: 12/03/22 Status: Ordered gabapentin 300 mg oral capsule 2, capsule, By Mouth, 3 times a day, # 180 capsule, Refills 5, Tot. Refills 5, Maintenance, 08/13/22 13:03:00 EDT, Route to Pharmacy Electronically, [facility]/pharmacy #[id number], 170, cm, 02/04/22 11:19:00 EDT, Height, 44.1, kg, 12/20/21 16:05:00 EST, Dry Weight Start Date: 08/13/22 Status: Ordered hydrOXYzine hydrochloride 10 mg oral tablet 3 tablet = 30 mg, By Mouth, 3 times a day, PRN NEEDED FOR ANXIETY, # 270 tablet, 3 Refills, Maintenance, 03/01/23 12:03:00 EDT, [facility]/pharmacy #[id number], 170, cm, 02/04/22 11:19:00 EDT, Height, 44.1, kg, 12/20/21 16:05:00 EST, Dry Weight Start Date: 03/01/23 Status: Ordered LORazepam 0.5 mg oral tablet 1 tablet = 0.5 mg, By Mouth, 2 times a day, PRN as needed for anxiety, for 14 days, fill when due, # 28 tablet, 1 Refills, Acute 05/07/23 12:41:00 EDT, 04/09/23 12:41:00 EDT, Tablet, [facility]/pharmacy #[id number], Partial fill upon patient request if the prescri... Start Date: 04/09/23 Stop Date: 05/07/23 Status: Ordered Metoprolol Succinate ER 25 mg oral tablet, extended release 1 tablet = 25 mg, By Mouth, Daily, TAKE 1 TABLET BY MOUTH ONCE DAILY Start Date: 12/03/22 Status: Ordered multivitamin Multiple Vitamins oral capsule 1 capsule, By Mouth, Daily, # 90 capsule, 3 Refills, Maintenance, 12/16/22 9:12:00 EST, Capsule, [facility]/pharmacy #[id number], Partial fill upon patient request if the prescription is for a schedule II opioid drug., 1 capsule By Mouth Daily, 170, cm, 02/04/22 1... Start Date: 12/16/22 Status: Ordered pantoprazole 40 mg oral delayed release tablet 1 tablet = 40 mg, By Mouth, Daily, # 30 tablet, 5 Refills, Maintenance, 12/03/22 8:54:00 EST, EC Tablet, 170, cm, 02/04/22 11:19:00 EDT, Height, 44.1, kg, 12/20/21 16:05:00 EST, Dry Weight Start Date: 12/03/22 Status: Ordered predniSONE 10 mg oral tablet See Instructions, 2 tabs by mouth daily for 3 days, 1 tab by mouth daily for 3 days, # 9 tablet, 0 Refills, Maintenance, 04/20/23 11:30:00 EDT, Tablet, [facility]/pharmacy #[id number], Partial fill upon patient request if the prescription is for a schedule II opio... Start Date: 04/20/23 Status: Ordered predniSONE 10 mg oral tablet See Instructions, 30 mg daily for 3 days and then 20 mg daily for 3 days and then continue 10 mg daily., # 39 each, 0 Refills, Maintenance, 03/22/23 13:16:00 EDT, Tablet, [facility], Partial fill upon patient request if the prescription... Start Date: 03/22/23 Status: Ordered sertraline 25 mg oral tablet TAKE 1 TABLET BY MOUTH EVERY DAY Start Date: 04/14/23 Status: Ordered Spiriva HandiHaler 18 mcg Inhalation Capsule = 18 mcg, Inhalation, Daily, 0 Refills, Maintenance, 03/11/15 17:50:09 EDT Start Date: 03/11/15 Status: Ordered Symbicort 160mcg/4.5mcg Inhaler 2, puffs, Inhalation, 2 times a day, Refills 0, Maintenance, 04/16/16 9:09:16 EDT, Aerosol Start Date: 04/16/16 Status: Ordered traMADol 50 mg oral tablet 1 tablet = 50 mg, By Mouth, 3 times a day with meals, TAKE 1 TABLET BY MOUTH 3 TIMES A DAY FOR 7 DAYS NEEDED FOR PAIN, # 21 tablet, 3 Refills, Maintenance, 02/02/23 13:02:00 EDT, [id number], 170, cm, 02/04/22 11:19:00 EDT, Height, 44.1, kg,... Start Date: 02/02/23 Status: Ordered urea 15 g oral powder for reconstitution = 15 Gm, By Mouth, 2 times a day, follow up with renal for additional directives, # 28 each, 0 Refills, Maintenance, 04/20/23 11:32:00 EDT, [facility]/pharmacy #[id number], Partial fill upon patient request if the prescription is for a schedule II opioid drug., 17... Start Date: 04/20/23 Status: Ordered Ventolin HFA 108 mcg/inh inhalation [...] Daily, # 30 capsule, 11 Refills, Maintenance, 12/03/22 9:00:00 EST, Capsule, [facility]/pharmacy #[id number], Partial fill upon patient request if the prescription is for a schedule II opioid drug., 170, cm, 02/04/22 11:19:00 EDT, Hei... Start Date: 12/03/22 Status: Ordered Wheelchair See Instructions, # 1 each, Maintenance, small size wt: 100 lbs ht: 5'7 lifetime need copd J44.9, 08/04/22 11:40:00 EDT, Supply Start Date: 08/04/22 Status: Ordered Problem List Condition Confirmation Course Effective Dates Status H ealth Status Informant Anxiety Confirmed Active At risk for falls Confirmed Active Bradycardia Confirmed Active Cervical radiculopathy Confirmed Active Chronic respiratory failure with hypoxia Confirmed Active Compression fracture of lumbar vertebra Confirmed Active Thoracic compression fracture Confirmed Active Compression fracture of spine Confirmed Active Constipation Confirmed Active Peripheral neuropathy Confirmed Active End stage COPD Confirmed Active T12 compression fracture Confirmed Active Hyperlipidemia Confirmed Active Pulmonary nodule Confirmed Active Osteoporosis Confirmed Active Breast pain Confirmed Active Paroxysmal atrial flutter Confirmed Active Raynaud's phenomenon Confirmed Active Rectal bleed Confirmed Active Leg swelling Confirmed Active Abnormal TSH Confirmed Active Underweight Confirmed Active Social History Social History Type Response Tobacco Other: now smoking 1 /2 pack per day. Sex Patient Care team information Care Team Personnel Name: Milena ORTIZ, Morgan Hancock Position: [facility] Renal MD Member Role: Lifetime Consulting Physician Address: Address: [address] [place] [address], [address] [place] [address] Name: Graciela Nunez MD Position: [facility] Physician - Primary Care Member Role: PCP Address: Address: [address] [place] [id number]- [place] Name: Maryam Camara RN Position: S RN Member Role: Primary Care Nurse Name: Rylie Francois RN Position: S RN Member Role: Primary Care Nurse Name: Luisa Storey RN Position: S RN Member Role: Primary Care Nurse Name: Paty Ventura RN Position: S RN Member Role: Primary Care Nurse Name: Ninfa Soto RN Position: S RN Member Role: Primary Care Nurse Name: Romeo Reid MD Position: [facility] Renal MD Member Role: Lifetime Consulting Physician Address: Address: [address] [place] [address] [facility], [place] [address]- Name: Olga Valladares RN Position: [facility] RN Member Role: Primary Care Nurse Name: Ruby Alexandre RN Position: [facility] RN Member Role: Primary Care Nurse Address: Address: [address] [place] [id number]- Name: Celso Lawson MD Position: [facility] Renal MD Member Role: Lifetime Consulting Physician Address: Address: [address] [place] [address] [facility] [place] [address]- Name: Chloe Fisher LPN Position: S RN Member Role: Primary Care Nurse Care Team Related Persons Name: INDIALAZARUS Address: [place] [address] Name: KAVON NICOLE Address: [address] [place] [address] Name: PT, STATES NONE
--- OUTSIDE RECORDS SUMMARY | 2023-08-21 08:35 | XMS_ITS | Continuity of Care Document ---
Author Name Unknown Organization [facility] Address [address] [place] [address]- Care Team Providers Care Legislative Aide Name Role Phone Graciela Nunez MD Primary Care Physician [phone] Encounter [facility] Date(s): 06/15/23 - 07/15/23 [facility] [address] [place], [place] [address] Allergies, Adverse Reactions, Alerts Substance [...] 23-valent vaccine 6 07/31/10 Recorded 1Result Comment: [id number] given w/out incident 2Location History: [place], [place] 3Admin Note: done @ dr jones office 4Location History: [facility] 5Location History: [facility] 6Location History: [facility] Medications albuterol-ipratropium 3 mg-0.5 mg/3 ml inhalation solution BAND Nebulizer, 4 times a day, PRN Wheezing/Shortness of Breath, 0 Refills, Maintenance, 05/19/23 14:12:00 EDT, Inhalation Solution, Partial fill upon patient request if the prescription is for a schedule II opioid drug. Start Date: 05/19/23 Status: Ordered aspirin 81 mg oral delayed release tablet [...] ONCE DAILY Start Date: 12/03/22 Status: Ordered baclofen 10 mg oral tablet 10 mg, 1, tablet, By Mouth, 2 times a day, PRN, # 28 tablet, Refills 2, Tot. Refills 2, Maintenance, Pain , Moderate, 05/25/23 15:31:00 EDT, Route to Pharmacy Electronically, [facility]pharmacy #[id number], Partial fill upon patient request if the prescription is... Start Date: 05/25/23 Stop Date: 07/06/23 Status: Ordered Compression Stockings See Instructions, # 2 Unknown, Refills 12, Tot. Refills 12, Maintenance, surgical, knee length 20-30 mm Hg 2 pairs every 3 months Dx: edema ICD 10 code R 60.0, 04/29/23 8:15:00 EDT, Supply Start Date: 04/29/23 Status: Ordered docusate sodium 100 mg oral capsule TAKE 1 CAPSULE BY MOUTH 2 TIMES A DAY NEEDED FOR CONSTIPATION. FILLED AT [facility] Start Date: 03/18/23 Status: Ordered folic acid 1 mg oral tablet 1 mg, 1, tablet, By Mouth, Daily, # 30 tablet, Refills 11, Tot. Refills 11, Maintenance, 12/03/22 9:01:00 EST, Route to Pharmacy Electronically, [facility]/pharmacy #[id number], 170, cm, 02/04/22 11:19:00 EDT, Height, 44.1, kg, 12/20/21 16:05:00 EST, Dry Weight Start Date: 12/03/22 Status: Ordered gabapentin 300 mg oral capsule 2, capsule, By Mouth, 3 times a day, # 180 capsule, Refills 5, Tot. Refills 5, Maintenance, 08/13/22 13:03:00 EDT, Route to Pharmacy Electronically, [facility]/pharmacy #[id number], 170, cm, 02/04/22 11:19:00 EDT, Height, 44.1, kg, 12/20/21 16:05:00 EST, Dry Weight Start Date: 08/13/22 Status: Ordered hydrOXYzine hydrochloride 10 mg oral tablet 3 tablet = 30 mg, By Mouth, 3 times a day, PRN NEEDED FOR ANXIETY, # 270 tablet, 3 Refills, Maintenance, 03/01/23 12:03:00 EDT, [facility]/pharmacy #[id number], 170, cm, 02/04/22 11:19:00 EDT, Height, 44.1, kg, 12/20/21 16:05:00 EST, Dry Weight Start Date: 03/01/23 Status: Ordered Metoprolol Succinate ER 25 mg oral tablet, extended release 1 tablet = 25 mg, By Mouth, Daily, # 30 tablet, 0 Refills, Maintenance, 05/27/23 12:28:00 EDT, ER Tablet, Partial fill upon patient request if the prescription is for a schedule II opioid drug. Start Date: 05/27/23 Status: Ordered multivitamin Multiple Vitamins oral capsule 1 capsule, By Mouth, Daily, # 90 capsule, 3 Refills, Maintenance, 12/16/22 9:12:00 EST, Capsule, [facility]/pharmacy #[id number], Partial fill upon patient request if the prescription is for a schedule II opioid drug., 1 capsule By Mouth Daily, 170, cm, 02/04/22 1... Start Date: 12/16/22 Status: Ordered Nicotine = 21 mg, Topically, Daily, 0 Refills, Maintenance, 05/19/23 14:12:00 EDT, Patch, Partial fill upon patient request if the prescription is for a schedule II opioid drug. Start Date: 05/19/23 Status: Ordered pantoprazole 40 mg oral delayed release tablet 1 tablet = 40 mg, By Mouth, Daily, # 30 tablet, 5 Refills, Maintenance, 05/27/23 11:19:00 EDT, EC Tablet, 170, cm, 04/19/23 7:05:00 EDT, Height, 45.2, kg, 05/11/23 2:35:00 EDT, Dry Weight Start Date: 05/27/23 Status: Ordered sertraline 25 mg oral tablet TAKE 1 TABLET BY MOUTH EVERY DAY Start Date: 04/14/23 Status: Ordered Shower Stool Shower Stool, See Instructions, # 1 each, Refills 0, Tot. 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 Start Date: 06/24/23 Stop Date: 07/24/23 Status: Ordered Symbicort 160mcg/4.5mcg Inhaler 2, puffs, Inhalation, 2 times a day, Refills 0, Maintenance, 04/16/16 9:09:16 EDT, Aerosol Start Date: 04/16/16 Status: Ordered TOILET SEAT TOILET SEAT, See Instructions, # 1 Unknown, Refills 0, Tot. Refills 0, Maintenance, DX: M19.90 OSTEOARTHRITIS USE ONCE DAILY WEIGHT 45.2KG HEIGHT 170CM, 05/27/23 12:14:00 EDT, Supply Start Date: 05/27/23 Status: Ordered traMADol 50 mg oral tablet 1 tablet = 50 mg, By Mouth, 3 times a day with meals, TAKE 1 TABLET BY MOUTH 3 TIMES A DAY FOR 7 DAYS NEEDED FOR PAIN, # 21 tablet, 0 Refills, Maintenance, 06/23/23 17:30:00 EDT, [facility] #[id number], 170, cm, 04/19/23 7:05:00 EDT, Height, 45.2, kg,... Start Date: 06/23/23 Status: Ordered Ventolin HFA 108 mcg/inh inhalation aerosol with adapter 2 puffs, Inhalation, 4 times a day, PRN for wheezing, # 1 each, 0 Refills, Maintenance, 06/24/23 19:49:00 EDT, Aerosol, [facility] #[id number], 170, cm, 04/19/23 7:05:00 EDT, Height, 45.2, kg, 05/11/23 2:35:00 EDT, Dry Weight Start Date: 06/24/23 Status: Ordered Vitamin D3 1000 intl units oral capsule 1 capsule = 25 mcg, By Mouth, Daily, # 30 capsule, 11 Refills, Maintenance, 12/03/22 9:00:00 EST, Capsule, [facility] #[id number], Partial fill upon patient request if the prescription is for a schedule II opioid drug., 170, cm, 02/04/22 11:19:00 EDT, Hei... Start Date: 12/03/22 Status: Ordered Wheel chair cushion Wheel chair cushion, See Instructions, # 1 each, Refills 0, Tot. Refills 0, Maintenance, DX: M19.90unspecific osteoarthritis Ht: 170 cm Wt: 48.5 kg Life time, 06/14/23 10:17:00 EDT, Supply Start Date: 06/14/23 Status: Ordered Wheelchair See Instructions, # 1 [...] compression fracture Confirmed Active Hyperlipidemia Confirmed Active Hyponatremia Confirmed Active Pulmonary nodule Confirmed Active Lung nodule Confirmed Active Osteoporosis Confirmed Active Breast pain Confirmed Active Paroxysmal atrial flutter Confirmed Active Raynaud's phenomenon Confirmed Active Rectal bleed Confirmed Active Severe obesity (BMI 35.0-39.9) with comorbidity Confirmed Active Leg swelling Confirmed Active Abnormal TSH Confirmed Active Social History Social History Type Response Tobacco Other: now smoking 1 .5 pack per day. Sex Patient Care team information Care Team Personnel Name: Herminia Parker RN Position: S RN Member Role: Primary Care Nurse Name: Morgan Abbott MD Position: [facility] Renal MD Member Role: Lifetime Consulting Physician Address: Address: [address] [place] [address], [address] [place] [address]- Name: Graciela Nunez MD Position: [facility] Physician - Primary Care Member Role: PCP Address: Address: [address] [place] [address]- Name: Maryam Camara RN Position: S RN Member Role: Primary Care Nurse Name: Josemanuel Hawkins RN Position: [facility] RN Member Role: Primary Care Nurse Name: Mckay Esquivel MD Position: [facility] Renal MD Member Role: Lifetime Consulting Physician Address: Address: [address] [place] [address], [address] [place] [address]- Name: Rylie Francois RN Position: [facility] RN Member Role: Primary Care Nurse Name: Luisa Storey RN Position: [facility] RN Member Role: Primary Care Nurse Name: Elizabeth Ferris RN Position: [facility] RN Member Role: Primary Care Nurse Name: Anabela Beavers Position: [facility] RN Member Role: Primary Care Nurse Name: Tracey Chavez Position: [facility] RN Member Role: Primary Care Nurse Name: Sandy Alba RN Position: [facility] RN Member Role: Primary Care Nurse Name: Jose Sebastian RN Position: [facility] RN Member Role: Primary Care Nurse Name: Angelica Montemayor RN Position: [facility] RN Member Role: Primary Care Nurse Name: Paty Ventura RN Position: [facility] RN Member Role: Primary Care Nurse Name: Ninfa Soto RN Position: [facility] RN Member Role: Primary Care Nurse Name: Romeo Reid MD Position: [facility] Renal MD Member Role: Lifetime Consulting Physician Address: Address: [address] [place] [address] [address] [facility] [place] [address]- Name: Olga Valladares RN Position: [facility] RN Member Role: Primary Care Nurse Name: Karyn Quezada RN Position: [facility] RN Member Role: Primary Care Nurse Name: Ruby Alexandre RN Position: S RN Member Role: Primary Care Nurse Address: Address: [address] [place] [address]- Name: Celso Lawson MD Position: [facility] Renal MD Member Role: Lifetime Consulting Physician Address: Address: [address] [place] [address] [facility] [address] Name: Alyssa Camacho RN Position: S RN Member Role: Primary Care Nurse Name: Keely Pascal RN Position: S RN Member Role: Primary Care Nurse Name: Chloe Fisher LPN Position: S RN Member Role: Primary Care Nurse Care Team Related Persons Name: LAZARUS OSBORNE Address: [place] [address] Name: KAVON NICOLE Address: [address] [place] [address] Name: , [facility] NONE
--- OUTSIDE RECORDS SUMMARY | 2023-08-21 08:35 | XMS_ITS | Continuity of Care Document ---
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 Name Role Phone Mayra ORTIZ, Graciela Lares Primary Care Physician Encounter [facility] Date(s): 10/17/20 - 11/16/20 [facility] [address] [place], [place] [address] Allergies, Adverse Reactions, Alerts Substance Reaction [...] 23-valent vaccine 5 07/31/10 Recorded 1Location History: [place], [place] 2Admin Note: done @ dr jones office 3Location History: [facility] 4Location History: [facility] 5Location History: [facility] Medications alendronate 70 mg oral tablet [...] Replace Required Details, Route to Pharmacy Electronically, [facility] #[id number]... Start Date: 01/31/20 Status: Ordered folic acid 1 mg oral tablet 1 mg, 1, tablet, By Mouth, Daily, # 30 tablet, Refills 3, Tot. Refills 3, Maintenance, 01/18/20 10:43:00 EDT, Route to Pharmacy Electronically, [facility] #[id number], 170, cm, 12/13/19 13:51:00EST, Height, 56.3, kg, 11/24/19 22:58:00 EST, Dry W... Start Date: 01/18/20 Status: Ordered furosemide 20 mg oral tablet 1, tablet, By Mouth, Daily, PRN, # 90 tablet, Refills 0, Tot. Refills 0, Maintenance, NEEDED FORLEG SWELLING, 04/19/20 15:50:00 EDT, Route to Pharmacy Electronically, [facility] #[id number],170, cm, 12/13/19 13:51:00 EST, Height, 56.3, kg, 0... Start Date: 04/19/20 Status: Ordered gabapentin 300 mg oral capsule 600 mg, 2, capsule, By Mouth, 3 times a day, # 180 capsule, Refills 3, Tot. Refills 3, Maintenance,10/01/20 15:48:00 EST, Route to Pharmacy Electronically, [facility] #[id number], 170, cm, 12/13/19 13:51:00 EST, Height, 56.3, kg, 11/24/19 22:58:... Start Date: 10/01/20 Status: Ordered gabapentin 300 mg oral capsule See Instructions, TAKE 2 CAPSULES BY MOUTH three times per day, # 180 capsule, Refills 1, Instructions Replace Required Details, Route to Pharmacy Electronically, [facility] #[id number], 170, cm, 12/13/19 13:51:00 EST, Height, 56.3, kg, 11/24/19... Start Date: 01/19/20 Status: Ordered Home Blood Pressure Monitor See Instructions, # 1 Unknown, Maintenance, DX: Bradycardia, R00.1 low heart rate USE DAILY LIFETIME USE HEIGHT 170CM WEIGHT 56KG, 12/13/19 13:56:00 EST, Compound Start Date: 12/13/19 Status: Ordered Metoprolol Succinate ER 25 mg oral tablet, extended release 1 tablet = 25 mg, By Mouth, Daily, # 90 tablet, 1 Refills, Maintenance, 01/29/20 10:50:00 EDT, XL Tablet, [facility] #[id number], 170, cm, 12/13/19 13:51:00 EST, Height, 56.3, [...] Moderate, # 90 tablet, 3 Refills, Maintenance, 08/23/20 12:07:00 EDT, Tablet, [facility] #[id number], 170, cm, 12/13/19 13:51:00 EST, Height, 56.3, kg, 11/24/19 22:58:00 EST, Dry Weight Start Date: 08/23/20 Status: Ordered Shower Chair See Instructions, # [...] 9:09:16, Aerosol Start Date: 04/16/16 Status: Ordered Ventolin HFA 108 mcg/inh inhalation aerosol with adapter 2 puffs, Inhalation, 4 times a day, PRN for wheezing, # 18 Gm, 6 Refills, Maintenance, 06/17/20 16:11:00 EDT, Aerosol, [facility] #[id number], 170, cm, 12/13/19 13:51:00 EST, Height, 56.3, kg, 11/24/19 22:58:00 EST, Dry Weight Start Date: 06/17/20 Stop Date: 01/13/21 Status: Ordered Ventolin HFA 108 mcg/inh inhalation aerosol with adapter 2 puffs, Inhalation, 4 times a day, PRN for wheezing, # 1 each, 0 Refills, Maintenance, 10/02/20 10:55:00 EST, Aerosol, [facility]/pharmacy #[id number], 170, cm, 10/02/20 10:06:00 EST, Height, 56.3, kg, 11/24/19 22:58:00 EST, Dry Weight Start Date: 10/02/20 Status: Ordered Vitamin B1 100 mg oral tablet 1, tablet, By Mouth, Daily, # 30 tablet, Refills 11, Tot. Refills 0, Acute, 12/18/19 14:10:00 EST, Route to Pharmacy Electronically, [facility] #[id number], 170, cm, 12/13/19 13:51:00 EST, Height, 56.3, kg, 11/24/19 22:58:00 EST, Dry Weight Start Date: 12/18/19 Status: Ordered Zofran 4 mg oral tablet 1 tablet = 4 mg, By Mouth, 3 times a day, PRN nausea, # 30 tablet, 0 Refills, Maintenance, :17:00 EDT, Tablet, [facility] #[id number], 170, cm, 12/13/19 13:51:00 EST, Height, 56.3, [...] Active Raynaud's phenomenon(Confirmed) Active Leg swelling(Confirmed) Active Social History Social History Type Response Smoking Status Current every day maria elena penn; Tobacco use times per day: smokes about 1.5 packs per day; entered on: 04/16/16 Sex
--- OUTSIDE RECORDS SUMMARY | 2023-08-21 08:35 | XMS_ITS | Continuity of Care Document ---
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 Name Role Phone Graciela Nunez MD Primary Care Physician [phone] Encounter [facility] Date(s): 04/19/20 - 04/26/20 [facility] [address] [place] [address]- [facility] Encounter Diagnosis Emphysema/COPD(Discharge Diagnosis) - 04/19/20 Superficial thrombophlebitis(Discharge Diagnosis) - 04/19/20 Leg swelling(Discharge Diagnosis) - 04/19/20 Cardiac arrhythmia(Discharge Diagnosis) - 04/19/20 Attending Physician: Graciela Nunez MD Allergies, Adverse Reactions, Alerts Substance Reaction Severity [...] 23-valent vaccine 5 07/31/10 Recorded 1Location History: [place], [place] 2Admin Note: done @ dr jones office 3Location History: [facility] 4Location History: [facility] 5Location History: [facility] Medications alendronate 70 mg oral tablet 0 Refills, Maintenance, 07/13/19 10:24:47 EDT Start Date: 07/13/19 Status: Ordered aspirin 81 mg oral tablet 1 tablet = 81 mg, By Mouth, Daily, # 30 tablet, 0 Refills, Maintenance, 04/16/16 9:15:50, Tablet Start Date: 04/16/16 Status: Ordered Bed Wedge Bed Wedge, See [...] Replace Required Details, Route to Pharmacy Electronically, [id number]... Start Date: 01/31/20 Status: Ordered erythromycin 250 mg oral tablet 1 tablet = 250 mg, By Mouth, Every 48 hours, # 30 tablet, 0 Refills, Maintenance, 01/29/20 10:51:00EDT, Tablet Start Date: 01/29/20 Status: Ordered folic acid 1 mg oral tablet 1 mg, 1, tablet, By Mouth, Daily, # 30 tablet, Refills 3, Tot. Refills 3, Maintenance, 01/18/20 10:43:00 EDT, Route to Pharmacy Electronically, [facility] #[id number], 170, cm, 12/13/19 13:51:00EST, Height, 56.3, kg, 11/24/19 22:58:00 EST, Dry W... Start Date: 01/18/20 Status: Ordered furosemide 20 mg oral tablet 1, tablet, By Mouth, Daily, PRN, # 90 tablet, Refills 0, Tot. Refills 0, Maintenance, NEEDED FORLEG SWELLING, 04/19/20 15:50:00 EDT, Route to Pharmacy Electronically, [facility] #[id number],170, cm, 12/13/19 13:51:00 EST, Height, 56.3, kg, 0... Start Date: 04/19/20 Status: Ordered gabapentin 300 mg oral capsule See Instructions, TAKE 2 CAPSULES BY MOUTH EVERY MORNING, 1 CAPSULE MID DAY AND 2 CAPSULES EVERY NIGHT AT BEDTIME, # 150 capsule, Refills 1, Maintenance, Instructions Replace Required Details, Route to Pharmacy Electronically, [facility] #03... Start Date: 01/19/20 Status: Ordered Home Blood [...] Refills, Maintenance, 01/29/20 10:50:00 EDT, XL Tablet, [facility] #[id number], 170, cm, 12/13/19 13:51:00 EST, Height, 56.3, kg, 11/24/19 22:58:00 EST, Dry Weight Start Date: 01/29/20 Status: Ordered PULSE OXIMETER PULSE OXIMETER, See Instructions, # 1 Unknown, Refills 0, Tot. Refills 0, Maintenance, DX: HYPOXIA R09.2 USE DAILY LIFETIME USE, 12/13/19 13:58:00 EST, Compound Start Date: 12/13/19 Status: Ordered Shower Chair See Instructions, # [...] wheezing, # 18 Gm, 6 Refills, Maintenance, 12/25/15 12:57:18, Aerosol, 2 puffs Inhalation 4 times a day,x30 days,PRN:for wheezing Start Date: 12/25/15 Stop Date: 07/22/16 Status: Ordered Vitamin B1 100 mg oral tablet 1, tablet, By Mouth, Daily, # 30 tablet, Refills 11, Tot. Refills 0, Acute, 12/18/19 14:10:00 EST, Route to Pharmacy Electronically, [facility] #[id number], 170, cm, 12/13/19 13:51:00 EST, Height, 56.3, kg, 11/24/19 22:58:00 EST, Dry Weight Start Date: 12/18/19 Status: Ordered Problem List Condition Effective Dates Status Health Status Inform ant At risk for falls(Confirmed) Active Bradycardia(Confirmed) Active Cervical radiculopathy(Confirmed) Active Cardiac arrhythmia(Confirmed) Active Peripheral neuropathy(Confirmed) Active Hyperlipidemia(Confirmed) Active Hypoxia(Confirmed) Active Pulmonary nodule(Confirmed) Active Osteoporosis(Confirmed) Active Emphysema/COPD(Confirmed) Active Raynaud's phenomenon(Confirmed) Active Diagnosis Diagnosis Type Effective Dates Health Status Clinical Service Informant Emphysema/COPD Discharge Diagnosis 04/19/20 Leg swelling Discharge Diagnosis 04/19/20 Superficial thrombophlebitis Discharge Diagnosis 04/19/20 Cardiac arrhythmia Discharge Diagnosis 04/19/20 Social History Social History Type Response Smoking Status Current every day maria elena penn; Tobacco use times per day: smokes about 1.5 packs per day; entered on: 04/16/16 Sex
--- OUTSIDE RECORDS SUMMARY | 2023-08-21 08:35 | XMS_ITS | Continuity of Care Document ---
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 Name Role Phone Graciela Nunez MD Primary Care Physician [place] [facility] [place]): [place] 08/[place]/23 [facility] [address] [place] [address] [id number] Discharge Disposition: A-Transfer SNF Attending Physician: Aleksander Smith DO Admitting Physician: Abilio Casillas MD Referring Physician: Not on Staff, Referring MD Allergies, Adverse Reactions, Alerts Substance Reaction [...] 23-valent vaccine 6 07/31/10 Recorded 1Result Comment: [id number] given w/out incident 2Location History: [place], [place] 3Admin Note: done @ dr jones office 4Location History: [facility] 5Location History: [facility] 6Location History: [facility] Medications acetaminophen 325 mg oral tablet 650 mg, 2, tablet, By Mouth, Every 4 hours, PRN, Maintenance, as needed for fever/pain, 07/21/23 13:59:00 EDT, Partial fill upon patient request if the prescription is for a schedule II opioid drug. Start Date: 07/21/23 Status: Ordered albuterol-ipratropium 3 mg-0.5 mg/3 ml inhalation solution 3 mL, Neb, 4 times a day, PRN Wheezing/Shortness of Breath, 0 Refills, Maintenance, 05/19/23 14:12:00 EDT, Inhalation Solution, Partial fill upon patient request if the prescription is for a scheduleII opioid drug. Start Date: 05/19/23 Status: Ordered apixaban 5 mg oral tablet = 5 mg, By Mouth, 2 times a day, 0 Refills, Maintenance, 07/20/23 13:54:00 EDT, Tablet, Partial fill upon patient request if the prescription is for a schedule II opioid drug. Start Date: 07/20/23 Status: Ordered aspirin 81 mg oral delayed release tablet 81 mg, 1, tablet, By Mouth, Daily, # 30 tablet, Refills 0, Tot. Refills 0, Maintenance, 11/06/21 10:22:00 EST, Do Not Route, Partial fill upon patient request if the prescription is for a schedule IIopioid drug. Start Date: 11/06/21 Status: Ordered atorvastatin 20 mg oral tablet 1 tablet = 20 mg, By Mouth, Daily Start Date: 12/03/22 Status: Ordered Compression Stockings See Instructions, # 2 Unknown, Refills 12, Tot. Refills 12, Maintenance, surgical, knee length 20-30 mm Hg 2 pairs every 3 months Dx: edema ICD 10 code R 60.0, 04/29/23 8:15:00 EDT, Supply Start Date: 04/29/23 Status: Ordered digoxin 0.25 mg oral tablet 250 mcg, 1, tablet, By Mouth, Daily, Refills 0, Maintenance, 07/20/23 13:55:00 EDT, Partial fill upon patient request if the prescription is for a schedule II opioid drug. Start Date: 07/20/23 Status: Ordered diltiazem 180 mg/24 hours oral capsule, extended release 180 mg, CD Capsule, By Mouth, 08/10/23 9:00:00 EDT Start Date: 08/10/23 Stop Date: 08/10/23 Status: Completed diltiazem 180 mg/24 hours oral capsule, extended release 180 mg, By Mouth, Daily, Refills 0, Maintenance, 07/20/23 13:55:00 EDT, Partial fill upon patient request if the prescription is for a schedule II opioid drug. Start Date: 07/20/23 Status: Ordered docusate sodium 100 mg oral capsule 1 capsule = 100 mg, By Mouth, 2 times a day, PRN as needed for constipation Start Date: 03/18/23 Status: Ordered docusate-senna 50 mg-187 mg oral tablet 2 tablet, By Mouth, Daily at bedtime, # 30 tablet, 0 Refills, Acute 08/22/23 23:00:00 EDT, :30:00 EDT, Tablet, Partial fill upon patient request if the prescription is for a schedule II opioid drug. Start Date: 07/23/23 Stop Date: 08/22/23 Status: Ordered Dulcolax 10 mg rectal suppository 1 supp = 10 mg, Rectally, Daily, PRN as needed for constipation, Maintenance, 07/21/23 14:00:00 EDT, Suppository, Partial fill upon patient request if the prescription is for a schedule II opioid drug. Start Date: 07/21/23 Status: Ordered folic acid 1 mg oral tablet 1 mg, 1, tablet, By Mouth, Daily, # 30 tablet, Refills 11, Tot. Refills 11, Maintenance, 12/03/22 9:01:00 EST, Route to Pharmacy Electronically, [facility]/pharmacy #[id number], 170, cm, 02/04/22 11:19:00 EDT, Height, 44.1, kg, 12/20/21 16:05:00 EST, Dry Weight Start Date: 12/03/22 Status: Ordered gabapentin 300 mg oral capsule 2, capsule, By Mouth, 3 times a day, # 180 capsule, Refills 5, Tot. Refills 5, Maintenance, 08/13/22 13:03:00 EDT, Route to Pharmacy Electronically, [facility]/pharmacy #[id number], 170, cm, 02/04/22 11:19:00 EDT, Height, 44.1, kg, 12/20/21 16:05:00 EST, Dry Weight Start Date: 08/13/22 Status: Ordered gabapentin 300 mg oral capsule 600 mg, Capsule, By Mouth, 08/10/23 9:00:00 EDT Start Date: 08/10/23 Stop Date: 08/10/23 Status: Completed hydrOXYzine hydrochloride 10 mg oral tablet 3 tablet = 30 mg, By Mouth, 3 times a day, PRN NEEDED FOR ANXIETY, # 270 tablet, 3 Refills, Maintenance, 03/01/23 12:03:00 EDT, [facility]/pharmacy #[id number], 170, cm, 02/04/22 11:19:00 EDT, Height, 44.1, kg, 12/20/21 16:05:00 EST, Dry Weight Start Date: 03/01/23 Status: Ordered lactulose 10 gm/15 ml oral syrup 15 mL = 10 Gm, By Mouth, 2 times a day, PRN as needed for constipation, # 480 mL, 0 Refills, Acute 08/22/23 23:00:00 EDT, 07/23/23 8:30:00 EDT, Syrup, Partial fill upon patient request if the prescription is for a schedule II opioid drug. Start Date: 07/23/23 Stop Date: 08/22/23 Status: Ordered Lasix 40 mg oral tablet 40 mg, 1, tablet, By Mouth, Daily, Refills 0, Maintenance, 07/20/23 13:55:00 EDT, Partial fill uponpatient request if the prescription is for a schedule II opioid drug. Start Date: 07/20/23 Status: Ordered LORazepam 0.5 mg oral tablet 0.5 tablet = 0.25 mg, By Mouth, 2 times a day, PRN as needed for anxiety, 0 Refills, Maintenance, 08/05/23 2:23:00 EDT, Tablet, Partial fill upon patient request if the prescription is for a scheduleII opioid drug. Start Date: 08/05/23 Status: Ordered melatonin 3 mg oral tablet 1 tablet = 3 mg, By Mouth, Daily at bedtime, # 30 tablet, 0 Refills, Maintenance, 08/05/23 2:22:00 EDT, Partial fill upon patient request if the prescription is for a schedule II opioid drug. Start Date: 08/05/23 Status: Ordered metoprolol 50 mg oral tablet, extended release 50 mg, XL Tablet, By Mouth, 08/10/23 9:00:00 EDT Start Date: 08/10/23 Stop Date: 08/10/23 Status: Completed Metoprolol Succinate ER 25 mg oral tablet, extended release 2 tablet = 50 mg, By Mouth, 2 times a day, 0 Refills, Maintenance, 05/27/23 12:28:00 EDT, ER Tablet, Partial fill upon patient request if the prescription is for a schedule II opioid drug. Start Date: 05/27/23 Status: Ordered Milk of Magnesia 8% oral suspension 30 mL = 2.4 Gm, By Mouth, Daily at bedtime, PRN for constipation, Maintenance, 07/21/23 14:00:00 EDT, Suspension, Partial fill upon patient request if the prescription is for a schedule II opioid drug. Start Date: 07/21/23 Status: Ordered multivitamin Multiple Vitamins oral capsule 1 capsule, By Mouth, Daily, # 90 capsule, 3 Refills, Maintenance, 12/16/22 9:12:00 EST, Capsule, [facility]/pharmacy #[id number], Partial fill upon patient request if the prescription is for a schedule II opioid drug., 1 capsule By Mouth Daily, 170, cm, 02/04/22 1... Start Date: 12/16/22 Status: Ordered Nicotine = 21 mg, Topically, Daily, 0 Refills, Maintenance, 05/19/23 14:12:00 EDT, Patch, Partial fill upon patient request if the prescription is for a schedule II opioid drug. Start Date: 05/19/23 Status: Ordered oxyCODONE 5 mg oral tablet 2.5 mg, 0.5, tablet, By Mouth, Every 6 hours, PRN, for 7 days, # 14 tablet, Refills 0, Tot. Refills0, Acute 08/17/23 11:24:00 EDT, as needed for pain, 08/10/23 11:24:00 EDT, Print Requisition, Partial fill upon patient request if the prescription is... Start Date: 08/10/23 Stop Date: 08/17/23 Status: Ordered pantoprazole 40 mg oral delayed release tablet 1 tablet = 40 mg, By Mouth, Daily, # 30 tablet, 5 Refills, Maintenance, 05/27/23 11:19:00 EDT, EC Tablet, 170, cm, 04/19/23 7:05:00 EDT, Height, 45.2, kg, 05/11/23 2:35:00 EDT, Dry Weight Start Date: 05/27/23 Status: Ordered Santyl Topical Oint 1 applicator, Topically, Daily, 0 Refills, Maintenance, Ointment Start Date: 08/10/23 Status: Ordered sertraline 25 mg oral tablet 1 tablet = 25 mg, By Mouth, Daily Start Date: 04/14/23 Status: Ordered Shower Stool Shower Stool, See Instructions, # 1 each, Refills 0, Tot. Refills 0, Maintenance, DX: M19.90 unspecific osteoarthritis Ht: 170 cm Wt: 48.5 kg Lifetime, 06/14/23 10:11:00 EDT, Supply Start Date: 06/14/23 Status: Ordered Spiriva HandiHaler 18 mcg inhalation capsule 1 capsule = 18 mcg, Inhalation, Daily, # 30 capsule, 0 Refills, Maintenance, 06/24/23 19:50:00 EDT,[facility]/pharmacy #[id number], Partial fill upon patient request if the prescription is for a schedule II opioid drug., 170, cm, 04/19/23 7:05:00 EDT, Height, 45.... Start Date: 06/24/23 Stop Date: 07/24/23 Status: Ordered Symbicort 160mcg/4.5mcg Inhaler 2, puffs, Inhalation, 2 times a day, Refills 0, Maintenance, 04/16/16 9:09:16 EDT, Aerosol Start Date: 04/16/16 Status: Ordered thiamine 100 mg oral tablet 100 mg, By Mouth, Daily, Refills 0, Maintenance, 08/10/23 11:23:00 EDT, Partial fill upon patient request if the prescription is for a schedule II opioid drug. Start Date: 08/10/23 Status: Ordered TOILET SEAT TOILET SEAT, See Instructions, # 1 Unknown, Refills 0, Tot. Refills 0, Maintenance, DX: M19.90 OSTEOARTHRITIS USE ONCE DAILY WEIGHT 45.2KG HEIGHT 170CM, 05/27/23 12:14:00 EDT, Supply Start Date: 05/27/23 Status: Ordered Ventolin HFA 108 mcg/inh inhalation [...] Active At risk for falls Confirmed Active Atrial fibrillation Confirmed Active Bradycardia Confirmed Active Cervical radiculopathy Confirmed Active Chronic respiratory failure with hypoxia Confirmed Active Compression fracture of lumbar vertebra Confirmed Active Thoracic compression fracture Confirmed Active Compression fracture of spine Confirmed Active Constipation Confirmed Active Peripheral neuropathy Confirmed Active End stage COPD Confirmed Active T12 compression fracture Confirmed Active Heart failure with mid-range ejection fraction Confirmed Active Hyperlipidemia Confirmed Active Hyponatremia Confirmed Active Pulmonary nodule Confirmed Active Lung nodule Confirmed Active Osteoporosis Confirmed Active Breast pain Confirmed Active Paroxysmal atrial flutter Confirmed Active Raynaud's phenomenon Confirmed Active Rectal bleed Confirmed Active Leg swelling Confirmed Active Abnormal TSH Confirmed Active Underweight Confirmed Active Results Orders for Microbiology Reports Name Date Blood Culture 08/04/23 Blood Culture #2 08/04/23 Microbiology Reports TEST:Blood Culture, Second Order STATUS:Auth (Verified) BODY SITE: SOURCE:Blood COLLECTED DATE/TIME:08/04/23 10:40 AM Blood Culture, Second Order SPECIMEN DESCRIPTION : BLOOD LFA SPECIAL REQUESTS : NONE CULTURE : NO GROWTH 5 DAYS. REPORT STATUS : FINAL 08/09/2023 TEST:Blood Culture STATUS:Auth (Verified) BODY SITE: SOURCE:Blood COLLECTED DATE/TIME:08/04/23 10:25 AM Blood Culture SPECIMEN DESCRIPTION : BLOOD RFA SPECIAL REQUESTS : NONE CULTURE : NO GROWTH 5 DAYS. REPORT STATUS : FINAL 08/09/2023 Radiology Reports * Exam Date Time Procedure Performing Provider Status 08/04/23 10:52 AM Chest Portable Kemal , Brenda; Auth ( Verified) Notes: (Chest Portable) Reason For Exam: Shortness of Breath RESULT: Chest Portable Chest Portable performed upright at 10:33 AM Reason: Shortness of Breath; Clinical Question(s): CHF COMPARISON: Multiple prior chest x-rays, the most recent of which is dated 07/11/2023. FINDINGS: LINES AND TUBES: None. LUNGS AND PLEURA: Slight improvement in pulmonary vascular congestion. Unchanged retrocardiac left basilar density. Slight blunting of both costophrenic angles, suggesting trace effusions. No pneumothorax. HEART, MEDIASTINUM AND DEEPALI: Heart is normal in size. Aorta is calcified. BONES AND SOFT TISSUES: No acute abnormality. Rim calcified bilateral breast implants. IMPRESSION: Slight improvement in pulmonary vascular congestion with trace bilateral effusions. WSN: [id number] Ordering Physician: Ro Curry Dictated By: Manjula Jolly MD Dictated Date/Time: 08/04/23 12:15 p Reviewed By: Manjula Jolly MD Signed By: Manjula Jolly MD Signed Date/Time: 08/04/23 12:15 pm Transcribed By: VALENTIN Transcribed Date/Time: 08/04/23 12:10 pm Vital Signs Most recent to oldest [Reference Range]: 1 2 3 Height 170 cm (08/10/23 8:07 AM) 170 cm (08/10/23 1:41 AM) 170 cm (08/09/23 7:54 PM) Weight 46.1 kg (08/10/23 4:41 AM) 44.9 kg (08/09/23 5:53 AM) 45.2 kg (08/08/23 5:43 AM) Oxygen Saturation [94-100 %] 97 % (08/10/23 8:07 AM) 100 % (08/10/23 1:41 AM) 96 % (08/09/23 7:54 PM) Pulse Rate [55-90 bpm] 70 bpm (08/10/23 8:43 AM) 65 bpm (08/10/23 8:42 AM) 70 bpm (08/10/23 8:07 AM) Body Mass Index [18.5-24.99 kg/m2] 15.16 kg/m2 *L* (08/05/23 2:15 PM) 16.02 kg/m2 *L* (08/04/23 4:22 PM) Blood Pressure [90-138/55-84 mm Hg] 116/68mm Hg (08/10/23 8:43 AM) 113/68mm Hg (08/10/23 8:42 AM) 116/68mm Hg (08/10/23 8:07 AM) Respiratory Rate [16-30 br/min] 18 br/min (08/10/23 9:52 AM) 18 br/min (08/10/23 8:43 AM) 19 br/min (08/10/23 8:07 AM) Temperature [96.8-100.4 DegF] 97.6 DegF (08/10/23 8:07 AM) 97.4 DegF (08/10/23 1:41 AM) 97.6 DegF (08/09/23 7:54 PM) Liters per Minute 5 L/min (08/10/23 8:07 AM) 5 L/min (08/10/23 1:41 AM) 6 L/min (08/09/23 3:35 PM) Mode of Delivery (Oxygen) Nasal cannula (08/10/23 8:07 AM) Nasal cannula (08/10/23 1:41 AM) Room air (08/09/23 7:54 PM) Blood pressure sites Arm, left (08/10/23 8:07 AM) Arm, left (08/10/23 1:41 AM) Arm, left (08/09/23 7:54 PM) Temperature Route Temporal (08/10/23 8:07 AM) Temporal (08/10/23 1:41 AM) Temporal (08/09/23 7:54 PM) Dry Weight 46.3 kg (08/04/23 4:22 PM) Weight Obtained Via Bed scale (08/10/23 4:41 AM) Bed scale (08/09/23 5:53 AM) Bed scale (08/08/23 5:43 AM) Social History Social History Type Response Tobacco Other: now smoking 1 .5 pack per day. Sex History and physical note * Ivelisse Hilton DO S: PERFORM, MODIFY, MODIFY, MODIFY, MODIFY, MODIFY, MODIFY Event Display: History and Physical Hospital Authored Date: Patient: ??KATERINE NICOLE ? Age:??62 Years?Sex:??Female?:??1960?? Chief Complaint/Reason for Consultation SOB History of Present Illness This is a 62-year-old female with past medical history including end-stage COPD on 6 L via nasal cannula at baseline with chronic hypoxemic respiratory failure, hyperlipidemia, paroxysmal atrial flutter, peripheral neuropathy, multiple compression fractures, and hyponatremia, who currently present[facility] the hospital [place] [facility] after she was noted to have acute shortness of breath/respiratory distress.?? In route to the hospital, the patient was noted to be 90% on nonrebreather at 15 L.?? She was given Solu-Medrol 125 mg IV and a breathing treatment by EMS.?? The patient was placed on BiPAP after arrival to the ED here, and then transition to CPAP.?? She did have a cardiac bedside ultrasound that showed bilateral focal B-lines and evidence of bilateral pleural effusions as well.?? Her x-ray today did show evidence of pulmonary vascular congestion with bilateral tracepleural effusions, though improved from prior study from July 11, 2023.?? The patient was given 40 mg of Lasix IV in the ED.?? Her initial heart rate was elevated up to the 130s.?? The ED did speak to [facility] cardiology and she was resumed on her usual home medications of diltiazem 180 mg once daily as well as metoprolol 50 mg daily, and digoxin 0.25 mg.?? The patient is now admitted for further management.?? Of note, the patient was recently hospitalized here from July 21 to July 23, 2023 at which time she had presented with a bloody bowel movement and rapid atrial fibri llation.?? She did not have any recurrent bleeding, so GI deferred doing a colonoscopy during that hospitalization. Review of Systems A complete review of systems was obtained and noted to be negative except as stated above in the HPI. Objective Measurements?? Height: 170 cm (08/04/23) Weight: 46.3 kg (08/04/23) Dry Weight: 46.3 kg (08/04/23) Body Mass Index:??16.02 kg/m2??Low (08/04/23) ? Vital Signs?? Temperature: 98 DegF (08/04/23 16:22:00) Temperature Route: Axillary (08/04/23 16:22:00) Pulse Rate:??101 bpm??High (08/04/23 16:22:00) Heart Rate Monitored:??118 bpm??High (08/04/23 14:57:00) Respiratory Rate: 23 br/min (08/04/23 16:22:00) Systolic Blood Pressure: 121 mm Hg (08/04/23 16:22:00) Diastolic Blood Pressure: 61 mm Hg (08/04/23 16:22:00) Blood pressure sites: Arm, left (08/04/23 16:22:00) Mean Arterial Pressure: 81 mm Hg (08/04/23 16:22:00) Pulse Pressure: 60 mm Hg (08/04/23 16:22:00) Oxygen Saturation: 97 % (08/04/23 16:22:00) Mode of Delivery (Oxygen): CPAP (08/04/23 16:22:00) FiO2: 35 % (08/04/23 14:57:00) Early Warning Score: 6 (08/04/23 16:26:57) ? Physical Exam General: Alert, in no acute cardiopulmonary distress. Mental Status: Oriented to person, place and time. Normal affect. Head: Normocephalic. Eyes: Pupils are equal, round and reactive to light. Extraocular muscles intact. Ear, Nose and Throat: Oropharynx clear, mucous membranes moist. Ears and nose without masses, lesions or deformities. Trachea midline. Neck: Supple, Full range of motion. Respiratory: Bibasilar crackles noted. No wheezing, rales or rhonchi. Cardiovascular: Heart sounds normal. Regular rate and rhythm, no murmurs, rubs or gallops. Gastrointestinal: Abdomen soft, non-tender, non-distended. Normal bowel sounds. No pulsatile mass. No hepatosplenomegaly. Neurologic: Cranial nerves II-XII grossly intact. No focal neurological deficits. Moves all extremities spontaneously. Sensation intact bilaterally. Skin: No rashes or lesions. No petechiae or purpura. No edema. Musculoskeletal: No cyanosis or clubbing. No gross deformities. Normal range of motion. Assessment/Plan This is??a 62-year-old female with past medical history as noted above,??who currently presents to the hospital after she developed??shortness of breath.?? She is felt??to??to have both??COPD exacerbation and??acute on chronic??systolic heart failure contributing to her symptoms.?? She is now admitted for further management. ?? Shortness of breath Acute on chronic respiratory failure with hypoxemia ??(J96.21) Acute on chronic systolic heart failure ??(I50.23) This patient will be admitted to an inpatient intermediate care bed.?? She presents with??acute shortness of breath,??most likely due to??acute on chronic systolic heart failure exacerbation.?? She does have an underlying history of COPD, and was treated with IV Solu-Medrol??as well for possible COPD exacerbation.?? Presently, she does not have significant wheezing noted on exam.?? She was given a dose of 40 mg IV Lasix in the ED and has been noted to have good urine output with this.?? For now, we will resume this patient back on her usual home dose Lasix 40 mg, but can consider additional IV dosing if needed depending on her clinical status.?? We will follow daily weights and strict I's and O's on this patient.?? We will continue her on??DuoNeb treatments as needed, but we will hold offon??additional steroids presently. ?? Leukocytosis ??(D72.829) Patient noted to have a leukocytosis??without any??clear underlying source of??infection.?? Her chest x-ray did not show??any evidence of pneumonia. ??She denies any specific??localizing signs or symptoms??of infection.?? We will??obtain a UA as well. ??Blood cultures were obtained in the ED and will be followed for any growth. ?? Atrial fibrillation Patient initially noted to have a rapid heart rate,??which she was resumed on her home medications including diltiazem, metoprolol,??and digoxin.?? Heart rate has improved to the 90s and we will continue to monitor.?? She is also on apixaban which we will resume at her home dose. ?? Hyperlipidemia. Continue patient on statin treatment as she normally takes. ?? History of compression fractures. Patient maintained on gabapentin which we will continue at her home dose. ?? CODE STATUS.?? Confirmed with the patient that she is a full code. ?? DVT prophylaxis.?? Patient was already on apixaban from the standpoint of her A- fib, and we will continue this presently. ?? Patient seen on August 04, 2023. Total time spent with patient and in coordination of care: including reviewing the chart/medical records, speaking with the patient, formulating and discussing the treatment plan, and documenting thefindings and encounter: ??70 + min ?? Histories Allergies Allergies ?(Active and Proposed Allergies Only) Lyrica? (Severity: Unknown severity, Onset: Unknown) ?Reactions: increased depression morphine? (Severity: Unknown severity, Onset: Unknown) ?Reactions: respiratory depression codeine? (Severity: Moderate, Onset: Unknown) ?Reactions: Nausea, Rash sulfADIAZINE? (Severity: Moderate, Onset: Unknown) ?Reactions: Rash ? Past Medical History/Problem List Active Problems??(26) Abnormal TSH Anxiety At risk for falls Bradycardia Breast pain Cervical radiculopathy Chronic respiratory failure with hypoxia Compression fracture of lumbar vertebra Compression fracture of spine Constipation End stage COPD Hyperlipidemia Hyponatremia Leg swelling Lung nodule Osteoporosis Paroxysmal atrial flutter Peripheral neuropathy Pulmonary nodule Raynaud's phenomenon Rectal bleed T12 compression fracture Thoracic compression fracture Underweight ? Past Surgical History Hysterectomy Osteopetrosis Breast implant ? Social History Patient reports living??with her sister., but??since recent hospitalization she has been at a [place] [facility] facility. Alcohol Details:??Use: Never. Substance Abuse Details:??Use: Never. Tobacco Details:??Other: now smoking 1/2 pack per day??currently, but has smoked as much is 1-1 1/2 packs aday in the past. ??She started as a teenager. ? Family Medical History Mother in her 70s with lung cancer.?? Father in his 80s with a brain tumor. Medications Home Medications??(based on med list from patient's facility Albuterol (Ventolin HFA 108 mcg/inh inhalation aerosol with adapter)?2?puff(s)?Inhalation?4 times a day?as needed?for wheezing Albuterol/Ipratropium (albuterol-ipratropium 3 mg-0.5 mg/3 ml inhalation solution)?3?Milliliter?Neb?4 times a day?as needed?Wheezing/Shortness of Breath apixaban (apixaban 5 mg oral tablet)?5?Milligram?By Mouth?2 times a day Aspirin (aspirin 81 mg oral delayed release tablet)?81?Milligram?1?tablet?By Mouth?Daily Atorvastatin (atorvastatin 20 mg oral tablet)?1?tab(s)?20?Milligram?By Mouth?Daily Budesonide-Formoterol (Symbicort 160mcg/4.5mcg Inhaler)?2?puff(s)?Inhalation?2 times a day Cholecalciferol (Vitamin D3 1000 intl units oral capsule)?1?capsule?25?Microgram?By Mouth?Daily Digoxin (digoxin 0.25 mg oral tablet)?250?Microgram?1?tablet?By Mouth?Daily Diltiazem (diltiazem 180 mg/24 hours oral capsule, extended release)?180?Milligram?By Mouth?Daily Docusate (docusate sodium 100 mg oral capsule)?1?capsule?100?Milligram?By Mouth?2times a day?as needed?as needed for constipation Docusate-Senna (docusate-senna 50 mg-187 mg oral tablet)?2?tab(s)?By Mouth?Daily at bedtime Folic Acid (folic acid 1 mg oral tablet)?1?Milligram?1?tablet?By Mouth?Daily Furosemide (Lasix 40 mg oral tablet)?40?Milligram?1?tablet?By Mouth?Daily Gabapentin (gabapentin 300 mg oral capsule)?2?capsule?By Mouth?3 times a day HydrOXYzine (hydrOXYzine hydrochloride 10 mg oral tablet)?3?tab(s)?30?Milligram?By Mouth?3 times a day?as needed? NEEDED FOR ANXIETY Lactulose (lactulose 10 gm/15 ml oral syrup)?15?Milliliter?10?gram?By Mouth?2 times a day?as needed?as needed for constipation Lorazepam (LORazepam 0.5 mg oral tablet)?0.5?tab(s)?0.25?Milligram?By Mouth?2 times a day?as needed?as needed for anxiety Melatonin (melatonin 3 mg oral tablet)?1?tab(s)?3?Milligram?By Mouth?Daily at bedtime Metoprolol (Metoprolol Succinate ER 25 mg oral tablet, extended release)?2?tab(s)?50?Milligram?By Mouth?2 times a day Multivitamin (multivitamin Multiple Vitamins oral capsule)?1?capsule?By Mouth?Daily Nicotine?21?Milligram?Topically?Daily Pantoprazole (pantoprazole 40 mg oral delayed release tablet)?1?tab(s)?40?Milligram?By Mouth?Daily Sertraline (sertraline 25 mg oral tablet)?1?tab(s)?25?Milligram?By Mouth?Daily Tiotropium (Spiriva HandiHaler 18 mcg inhalation capsule)?1?capsule?18?Microgram?Inhalation?Daily?for 30?Days ? Results Recent Labs BLOOD COUNT & DIFF WBC 17.7 k/mm3 (High)?? 08/04/2023 10:25 RBC 4.08 m/mm3 (Low)?? 08/04/2023 10:25 Hgb 12.3 Gm/dL ()?? 08/04/2023 10:25 Hct 39.6 % ()?? 08/04/2023 10:25 MCV 97.1 femtoliters ()?? 08/04/2023 10:25 MCH 30.1 pg ()?? 08/04/2023 10:25 MCHC 31.1 g/dL (Low)?? 08/04/2023 10:25 Platelet Count 263 k/mm3 ()?? 08/04/2023 10:25 RDW-SD 47.8 femtoliters (High)?? 08/04/2023 10:25 MPV 10.4 femtoliters ()?? 08/04/2023 10:25 Nucleated RBC (Automated) 0.0 #/100 WBC'S ()?? 08/04/2023 10:25 Abs. NRBC 0.0 k/mm3 ()?? 08/04/2023 10:25 Abs. Neut 13.3 k/mm3 (High)?? 08/04/2023 10:25 Abs. Lymph 2.1 k/mm3 ()?? 08/04/2023 10:25 Abs. [place] 1.1 k/mm3 (High)?? 08/04/2023 10:25 Abs. Eo 0.1 k/mm3 ()?? 08/04/2023 10:25 Abs. Baso 0.2 k/mm3 (High)?? 08/04/2023 10:25 Neut % 75.3 % ()?? 08/04/2023 10:25 Lymph % 12.1 % (Low)?? 08/04/2023 10:25 [place] % 6.3 % ()?? 08/04/2023 10:25 Eos % 0.4 % ()?? 08/04/2023 10:25 Baso % 1.0 % ()?? 08/04/2023 10:25 Hemoglobin (POC) POC Cartridge 12.6 Gm/dL ()?? 08/04/2023 10:35 Hematocrit (POC) POC Cartridge 37 % ()?? 08/04/2023 10:35 Imm Gran 4.9 % ()?? 08/04/2023 10:25 Abs. Imm Gran 0.9 k/mm3 ()?? 08/04/2023 10:25 ?? BLOOD GAS pH Venous (POC) POC Cartridge 7.42 ()?? 08/04/2023 10:35 pCO2 Venous (POC) POC Cartridge 65.9 mm Hg (High)?? 08/04/2023 10:35 pO2 Venous (POC) POC Cartridge 45 mm Hg (High)?? 08/04/2023 10:35 Est Bicarbonate (POC) POC Cartridge 42.8 mmol/L (High)?? 08/04/2023 10:35 % O2 Sat Venous (POC) POC Cartridge 80 ()?? 08/04/2023 10:35 Base Excess (POC) POC Cartridge 18 ()?? 08/04/2023 10:35 Specimen Type - Blood Gas VENOUS ()?? 08/04/2023 11:08 pH, Venous 7.33 ()?? 08/04/2023 11:08 pCO2, Venous 73 mm Hg (High)?? 08/04/2023 11:08 pO2, Venous 160 mm Hg (High)?? 08/04/2023 11:08 Bicarbonate, Estimated(Venous) 38 mmol/L (High)?? 08/04/2023 11:08 ?? CARDIAC Nt-Probnp 5487 pg/mL (High)?? 08/04/2023 10:25 High Sensitivity Troponin (HSTnT) 31 ng/L (High)?? 08/04/2023 10:25 ?? CHEM GENERAL Sodium 136 mmol/L ()?? 08/04/2023 10:25 Potassium 4.2 mmol/L ()?? 08/04/2023 10:25 Chloride 88 mmol/L (Low)?? 08/04/2023 10:25 Bicarbonate Level 39 mmol/L (High)?? 08/04/2023 10:25 Anion Gap 9 ()?? 08/04/2023 10:25 Sodium (POC) POC Cartridge 131 mmol/L (Low)?? 08/04/2023 10:35 Potassium (POC) POC Cartridge 3.8 mmol/L ()?? 08/04/2023 10:35 Glucose Level 187 mg/dL (High)?? 08/04/2023 10:25 Glucose (POC) POC Cartridge 189 (High)?? 08/04/2023 10:35 BUN 17 mg/dL ()?? 08/04/2023 10:25 Creatinine-Blood 0.3 mg/dL (Low)?? 08/04/2023 10:25 Estimated GFR Creatinine 115 ML/MIN/1.73 M2 ()?? 08/04/2023 10:25 Calcium 8.8 mg/dL ()?? 08/04/2023 10:25 Ionized Calcium (POC) POC Cartridge 1.10 mmol/L (Low)?? 08/04/2023 10:35 Protein, Total 5.7 Gm/dL (Low)?? 08/04/2023 10:25 Albumin 3.8 Gm/dL ()?? 08/04/2023 10:25 AG Ratio 2.0 ()?? 08/04/2023 10:25 Alkaline Phosphatase 152 units/L (High)?? 08/04/2023 10:25 AST (SGOT) 18 units/L ()?? 08/04/2023 10:25 ALT (SGPT) 19 units/L ()?? 08/04/2023 10:25 Bilirubin, Total 0.4 mg/dL ()?? 08/04/2023 10:25 Lactate 2.1 mmol/L ()?? 08/04/2023 10:25 ?? HEME OTHER Hold Blue Top SPECIMEN DISCARDED AFTER 4 HOURS. ()?? 08/04/2023 10:25 ?? TOXICOLOGY/TDM Digoxin Level 1.8 ng/mL ()?? 08/04/2023 10:25 ?? URINE OTHER Est Creatinine Clearance 138.47 mL/min ()?? 08/04/2023 16:26 ?? VIROLOGY COVID-19 by RT-PCR NEGATIVE ()?? 08/04/2023 10:49 ? Imaging(s) ?Other Image ?EKG showing atrial fibrillation with RVR and heart rate of 111. Minimal voltage criteria for LVH noted. ST depression noted in V4 to V6 and T wave inversion in aVF and lead II. ?(08/04/2023 10:52 EDT Chest Portable) IMPRESSION: ?? Slight improvement in pulmonary vascular congestion with trace bilateral effusions. [1] [1]??Chest Portable; Manjula Jolly MD 08/04/2023 10:52 EDT EKG study * Event Display: ECG 12-Lead Authored Date: Please click on pdf link to open report * Event Display: ECG 12-Lead Authored Date: Ventricular Rate: 111 BPM QRS Duration: 102 ms Q-T Interval: 316 ms QTC Calculation(Bazett): 429 ms R [place]: 38 degrees T [place]: 218 degrees Atrial fibrillation with rapid ventricular response Minimal voltage criteria for LVH, may be normal variant ( Franklyn product ) Marked ST abnormality, possible inferior subendocardial injury Abnormal ECG When compared with ECG of 21-JUL-2023 11:34, No significant change was found Confirmed by LIMA MOLINA MD ([id number]) on 08/04/2023 3:42:20 PM [place]: LIMA MOLINA MD Cardiology * Event Display: Cardiac Rhythm Strips Authored Date: * Event Display: Cardiac Rhythm Strips Authored Date: * Event Display: Cardiac Rhythm Strips Authored Date: Hospital Progress note * Donna Fleming RN: VERIFY, PERFORM, SIGN Event Display: Progress Note Hospital Authored Date: Patient: KATERINE NICOLE Age: 62 years Sex: Female : 1960 Associated Diagnoses: None Author: Donna Fleming RN Discharge Information Functional Assessment Personal hygiene: assist. Feeding ability: self. Standing ability: with assist. Mobility assistance: ambulate, assist of 1. Chair transfer: with assist. Wheelchair: self. Elimination: last bowel movement 08/10/2023 12:52:00, urinary elimination purewik. * Zuleyka Cagle RN: PERFORM, SIGN, VERIFY Event Display: Progress Note Hospital Authored Date: Patient: KATERINE NICOLE Age: 62 years Sex: Female : 1960 Associated Diagnoses: None Author: Zuleyka Cagle RN Findings Evaluation pt a&o,vss, afebrile, pt anxious and rings frequently often forgetting what she rang for, PRN medication given per anxiety and sleep to mild effect, pt is unable to verbalize source of her anxiety but states she has struggled with it for years pt reassured that being in the hospital and dealing with health problems can increase anxiety, call [facility] in reach needs met at this time . Discharge Information Case Management Discharge Plan : Case Management Discharge Plan Data 08/05/2023 10:19 EDT Discharge Nursing Homes/Rehab Facilities [facility] * Aleksander Smith DO: PERFORM Event Display: Progress Note Hospital Authored Date: Patient: ??KATERINE NICOLE ? Age:??62 Years?Sex:??Female?:??1960?? Subjective Seen in [facility] with complaint of dyspnea Hemodynamically stable without acute??overnight events Continues on steroids for COPD exacerbation p.o. Lasix Pending placement ?? Review of Systems Constitutional,??eyes, skin, head/neck,??ENMT, respiratory, cardiac, gastrointestinal, genitourinary, endocrine, musculoskeletal,??neurologic, psychiatric, immunologic??systems reviewed and negative??except as described above. Objective Measurements?? Height: 170 cm (08/09/23) Weight: 44.9 kg (08/09/23) Dry Weight: 46.3 kg (08/04/23) Body Mass Index:??15.16 kg/m2??Low (08/05/23) ? Vital Signs?? Temperature: 98 DegF (08/09/23 15:35:00) Temperature Route: Temporal (08/09/23 15:35:00) Pulse Rate:??100 bpm??High (08/09/23 16:05:00) Respiratory Rate: 18 br/min (08/09/23 18:12:00) Systolic Blood Pressure: 126 mm Hg (08/09/23 15:35:00) Diastolic Blood Pressure: 80 mm Hg (08/09/23 15:35:00) Blood pressure sites: Arm, left (08/09/23 15:35:00) Mean Arterial Pressure: 95 mm Hg (08/09/23 15:35:00) Pulse Pressure: 46 mm Hg (08/09/23 15:35:00) Oxygen Saturation: 98 % (08/09/23 15:35:00) Liters per Minute: 6 L/min (08/09/23 15:35:00) Mode of Delivery (Oxygen): Nasal cannula (08/09/23 15:35:00) Early Warning Score: 1 (08/09/23 18:14:29) ? Intake/Output? 08/04 14:53 08/09 07:00 08/08 07:00 08/07 07:00 08/06 07:00 ?? 08/09 18:15 08/09 18:15 08/09 06:59 08/08 06:59 08/07 06:59 Intake ? 4480 ?420 ?600 ? 1170 ? 1040 Output ? 6650 ? 1700 ? 2100 ?700 ? 1000 Net Total ?-2170 ?-1280 ?-1500 ?470 ? 40 ? Urine Count ? 10 ?0 ?1 ?4 ?5 ? Mobility & Ambulation Level Mobility & Ambulation Level Activity Assistance: Moderate assistance, Two person assistance (08/08/23) Activity Status ADL: Complete bedrest, Repositioned in bed every two hours (08/08/23) Ambulatory devices needed: Cane, Walker (08/09/23) Repositioning: Assist (08/07/23) ? Physical Exam Gen:??Frail, A&O x3 Resp:Decreased bibasilar breath sounds CV:??Regular rhythm,??regular rate;??S1/S2 present;??No murmurs, rubs, or gallops??appreciated.?No JVD.??No extremity edema GI: Soft, nontender, no??organomegaly palpated,??nondistended, + bowel sounds Skin: No lesions seen Psych: appropriate affect _ Inpatient Medications Medications (33) Active SCHEDULED: (19) Albuterol 0.083% Inhalation Solution (Albuterol 0.083% inhalation francheska) ??2.5 mg 3 mL, BAND Nebulizer, 4 times a day Apixaban 5 mg Tablet (Apixaban Tablet) ??5 mg, By Mouth, 2 times a day Aspirin 81 mg EC Tablet (aspirin 81 mg oral delayed release tablet) ??81 mg, By Mouth, Daily Atorvastatin 20 mg Tablet (Lipitor 20 mg oral tablet) ??20 mg, By Mouth, Daily at bedtime Breo Ellipta 200 mcg / 25 mcg Inhaler (Breo Ellipta 200 mcg-25 mcg Inhaler) ??1 puffs, Inhalation, Daily Collagenase Topical Oint (30 Gm) (Santyl Topical Oint) ??1 application, Topically, Daily Digoxin 0.25 mg Tablet (digoxin 0.25 mg oral tablet) ??0.25 mg, By Mouth, Daily Diltiazem 180 mg/24 hour CD Capsule (diltiazem 180 mg/24 hours oral capsule, extended release) ??180 mg, By Mouth, Daily Folic Acid 1 mg Tablet (folic acid 1 mg oral tablet) ??1 mg, By Mouth, Daily Furosemide 40 mg Tablet (Lasix 40 mg oral tablet) ??40 mg, By Mouth, Daily Gabapentin 300 mg Capsule (gabapentin 300 mg oral capsule) ??600 mg, By Mouth, 3 times a day Metoprolol 50 mg XL Tablet (metoprolol 50 mg oral tablet, extended release) ??50 mg, By Mouth, Daily NaCl 0.9% Flush 3ml (NaCL 0.9% Flush) ??3 mL, IV Push, Every 8 hours Pantoprazole 40 mg EC Tablet (pantoprazole 40 mg oral delayed release tablet) ??40 mg, By Mouth, Daily PredniSONE 20 mg Tablet (predniSONE 20 mg oral tablet) ??40 mg, By Mouth, Daily Sertraline 25 mg Tablet (sertraline 25 mg oral tablet) ??25 mg, By Mouth, Daily Spiriva Respimat 2.5 mcg Inhaler (Spiriva Respimat Inhaler) ??2 puffs, Inhalation, Daily Thiamine 100 mg Tablet (thiamine 100 mg oral tablet) ??100 mg, By Mouth, Daily Vitamin D 1000 IU Tablet (Cholecalciferol Tablet) ??1,000 International_Units, By Mouth, Daily CONTINUOUS: (0) PRN: (14) Acetaminophen 325 mg Tablet (Acetaminophen Tablet) ??650 mg, By Mouth, Every 4 hours Albuterol 0.083% Inhalation Solution (Albuterol 0.083% inhalation francheska) ??2.5 mg 3 mL, BAND Nebulizer, Every 4 hours Albuterol 90mcg/Inhalation Inhaler HFA (albuterol CFC free 90 mcg/inh inhalation aerosol) ??180 mcg2 puffs, Inhalation, Every 4 hours Dextromethorphan-Guaifenesin 20 mg-200 mg/10 mL Liqu UD (Robitussin DM Liquid) ??10 mL, By Mouth, Every 4 hours Docusate Sodium 100 mg Capsule (Docusate Sodium Capsule) ??100 mg 1 capsule, By Mouth, 2 times a day HYDROmorphone 0.5 mg/0.5 mL Inj Syringe (Dilaudid Inj) ??0.5 mg 0.5 mL, IV Push Slowly, Every 4 hours HydrOXYzine HCL 10mg Tablet (hydrOXYzine hydrochloride 10 mg oral tablet) ??10 mg, By Mouth, 3 times a day Lactulose 20 Gm/30mL Syrup (lactulose 10 gm/15 ml oral syrup) ??10 Gm 15 mL, By Mouth, 2 times a day Lorazepam 2 mg Inj Syringe (LORazepam Inj) ??0.25 mg, IV Push Slowly, Every 12 hours Melatonin 3 mg Tablet (Melatonin Tablet) ??3 mg, By Mouth, Daily at bedtime NaCl 0.9% Flush 3ml (NaCL 0.9% Flush) ??3 mL, IV Push, Every 8 hours Polyethylene Glycol 17 Gm Powder (MiraLax Powder) ??17 Gm 1 pack/packet, By Mouth, Daily Senna Tablet ??8.6 mg 1 tablet, By Mouth, 2 times a day Simethicone 80 mg Chewable Tablet (Simethicone Tablet) ??80 mg, Chew, 3 times a day ? 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 contributing to her symptoms. ?? Acute on chronic respiratory failure with hypoxemia ??(J96.21) COPD Exacerbation Chronic HFrEF (I50.23) Continue steroids and??DuoNeb treatments as needed HFCCA following Daily weights and strict I's and O's Home dose Lasix 40 mg PO ?? Leukocytosis ??(D72.829) Patient noted to have a leukocytosis??without any??clear underlying source of??infection.?? We will??obtain a UA as well. ?? Blood cultures were obtained in the ED and will be followed for any growth. ?? Atrial fibrillation Continue metoprolol, digoxin, and apixaban ?? Hyperlipidemia. Continue statin ?? History of compression fractures. Gabapentin ?? FULL CODE ELIQUIS ?? MEDICAL DECISION MAKING:?? High:??Acute on Chronic??illness w/??Severe??exacerbation, progression, complexity of treatment, illness or injury that poses a threat to life or bodily function; 3??of (note / test / order / independent historian), interpretation / discussion. ?Total patient care time:??60?? minutes. Consult note * Zoey Grace RN: PERFORM, SIGN, VERIFY Event Display: Consultation Note Authored Date: [id number] Patient: KATERINE NICOLE Age: 62 years Sex: Female : 1960 Associated Diagnoses: None Author: Zoey Grace RN History of Presenting Problem Date of Service 08/05/2023 Reason for referral Pressure ulcer: Description Location: sacrum Etiology: unstageable pressure injury (present on admission) Description: 80% firmly stringy yellow slough; 1% pink, viable tissue; 10% maroon, nonblanchable discoloration from 2-6 o'clock Measurements: 3cm x 2cm x 0.5cm with undermining from 11-3 o'clock with max depth of 0.5cm Drainage: moderate serosanguineous Odor: none Edges: regular; defined; attached; epibole from 11-3 o'clock Periwound: nonblanchable erythema; no induration or fluctuance Pain: c/o pain with pressure/palpation Goal of treatment: enzymatic debridement; protect from moisture/friction; offload pressure . sacrum 07/19/23 sacrum 08/05/23 Received wound RN consult to assess coccyx wound and provide appropriate topical wound care recommendations. Patient recently [facility] [place] [facility] [place] with respiratory distress. She has a PMH significant for chronic hypoxia, COPD, CHF, hyponatremia and HLD Upon entry into patient's room, she is found lying in bed, alert and oriented x 3. Role of wound RNis explained and she is amenable to continuing with consult and photodocumentation. With assistanceof student nurses, patient is able to roll onto her right side so that her sacral wound could be visualized and is described as above. Patient has Primafit in place but incontinent of stool as well. Spoke with patient and direct care RN regarding recommendations. [place] text message sent to Dr Smith. Of note, during last admission, patient had stage 3 pressure injury which has deteriorated to an unstageable pressure injury since then Recommendations: 1. sacrum- Cleanse with NS. Pat dry. Apply nickel thick layer of Santyl ointment to wound bed. Apply thin layer of zinc oxide to the periwound. Cover with Mepilex foam dressing. Change daily and as needed for soilage/saturation. If requiring to be changed more than daily, please reconsult wound RN for alternative topical wound care options 2. Continue use of low air loss mattress 3. Continue to turn and reposition every 2 hours and as needed 4. Continue to provide incontinence care and moisture management as needed 5. Continue to offload all bony prominences 6. Continue to float heels off of all surfaces 7. Continue to provide optimal nutritional support 8. Gaymar cushion to seat when/if OOB to chair Please reconsult wound RN for deterioration in wound/skin status. Plan Recommendations Nutrition Plan Consult Ward Service Supervisor Maximize nutritional support Mobility Raul Score : Raul Score 08/05/2023 11:25 EDT Raul Score 13 07/23/2023 8:39 EDT Raul Score 14 Eliminate heel pressure Turn & reposition every 2-4 hours Gaymar soft chair cushion Moisture Management Incontinence care Friction/Sheer Interventions Minimize sheer forces by lifting Utilize draw sheet or transfer board Patient Teaching Discussed plan of care with patient Discussed plan of care with RN Time spent 46-60 minutes * Event Display: Consultation Note Authored Date: [id number] CONSULTATION DATE: 08/04/2023 I was asked to see this lady today in the emergency room as she comes back in with CHF. HISTORY OF PRESENT ILLNESS: A 62-year-old lady with history of end-stage COPD on oxygen 6 L, chronic hypoxic respiratory failure, dyslipidemia, PAF, peripheral neuropathy, history of compression fractures, hyponatremia, comes in with acute respiratory failure, was being admitted by the ER for this.She looks like she was in heart failure. EKG showed atrial fibrillation with rapid ventricular response. Her x-ray showed some slight improvement in pulmonary vasculature. She had bilateral effusions. So we were consulted for CHF. This all began over the last few days, she has had. PAST MEDICAL HISTORY: As described above. SOCIAL HISTORY: No smoking, alcohol use, or drugs at the moment. She was significant smoker in the past. FAMILY HISTORY: CAD. HOME MEDICATIONS: Include albuterol, vitamin, Symbicort, atorvastatin 10 mg a day, pantoprazole, Spiriva, tramadol. ALLERGIES: Include LYRICA, MORPHINE, CODEINE, SULFA. REVIEW OF SYSTEMS: Unable to obtain all 12 systems ____ because patient is quite short of breath, who was on a mask. PHYSICAL EXAMINATION: VITAL SIGNS: Blood pressure 132/72, heart rate of 123, AFib, 95% ____ placed on BiPAP. GENERAL: Moderate respiratory distress. HEENT: Normocephalic, atraumatic. PERRLA, EOMI. Positive for JVD. Moist membranes of mouth. No scleral icterus. HEART: AFib with irregularly irregular, tachycardic. LUNGS: Bilateral crackles and wheezes. ABDOMEN: Benign. Positive bowel sounds, no rebound, nontender, nondistended, no hepatosplenomegaly. EXTREMITIES: Pulses intact in all extremities. SKIN: Warm, dry and intact. LABORATORY DATA: White count of 17,000. Chemistry profile is otherwise all normal. BNP level is 5487. Positive troponin of 31. EKG has been reviewed. Telemetry has been reviewed. ASSESSMENT AND PLAN: 1. ____ for CHF. Continue diuresing her. I's and O's, daily weights, low-salt diet. 2. Continue BiPAP for respiratory distress. 3. Steroids, oxygen and inhalers for her COPD. 4. Atrial fibrillation with RVR. First I am going to get her breathing under control, then we can consider where to go from there and then use diltiazem to bring her rates down. Echocardiogram from March shows EF of 40% to 45%. Respiratory failure is the driving force for her AFib and potentially with heart failure. We will follow along. Dictated by: Parminder Case M.D. Signing Clinician: Parminder Case M.D. Dictated: 08/04/2023 02:32:49 Transcribed: 10:17:24 AM Transcribed by: STAS/RISA/KUSH DocID: [id number] PRELIMINARY REPORT UNLESS MANUALLY/ELECTRONICALLY SIGNED cc: Graciela Nunez M.D. [facility] [address] [place], [address] Note * Aleksander Smith DO: PERFORM Event Display: Discharge/Transfer Note Hospital Authored Date: Patient: ??BONNIE, KATERINE ? Age:??62 Years?Sex:??Female?:??1960?? Patient Information Discharge Location: Primary Care Physician: Graciela Nunez MD Admit Date/Time: 08/04/23 14:53 Discharge Disposition Discharge Disposition: [facility] Facility[facility]Rehab Discharge Diagnosis Acute on chronic respiratory failure with hypoxemia (J96.21) Acute on chronic systolic heart failure (I50.23) Leukocytosis (D72.829) COPD exacerbation (J44.1) Anxiety At risk for falls Atrial fibrillation Bradycardia Cervical radiculopathy Chronic respiratory failure with hypoxia End stage COPD Hyperlipidemia Underweight ?? _ Discharge Medications Acetaminophen (acetaminophen 325 mg oral tablet)?650?Milligram?2?tablet?By Mouth?Every 4 hours?as needed?as needed for fever/pain Albuterol (Ventolin HFA 108 mcg/inh inhalation aerosol with adapter)?2?puff(s)?Inhalation?4 times a day?as needed?for wheezing Albuterol/Ipratropium (albuterol-ipratropium 3 mg-0.5 mg/3 ml inhalation solution)?3?Milliliter?Neb?4 times a day?as needed?Wheezing/Shortness of Breath apixaban (apixaban 5 mg oral tablet)?5?Milligram?By Mouth?2 times a day Aspirin (aspirin 81 mg oral delayed release tablet)?81?Milligram?1?tablet?By Mouth?Daily Atorvastatin (atorvastatin 20 mg oral tablet)?1?tab(s)?20?Milligram?By Mouth?Daily Bisacodyl (Dulcolax 10 mg rectal suppository)?1?suppository(ies)?10?Milligram?Rectall y?Daily?as needed?as needed for constipation Budesonide-Formoterol (Symbicort 160mcg/4.5mcg Inhaler)?2?puff(s)?Inhalation?2 times a day Cholecalciferol (Vitamin D3 1000 intl units oral capsule)?1?capsule?25?Microgram?By Mouth?Daily Collagenase Topical (Santyl Topical Oint)?1?applicator?Topically?Daily Digoxin (digoxin 0.25 mg oral tablet)?250?Microgram?1?tablet?By Mouth?Daily Diltiazem (diltiazem 180 mg/24 hours oral capsule, extended release)?180?Milligram?By Mouth?Daily Docusate (docusate sodium 100 mg oral capsule)?1?capsule?100?Milligram?By Mouth?2times a day?as needed?as needed for constipation Docusate-Senna (docusate-senna 50 mg-187 mg oral tablet)?2?tab(s)?By Mouth?Daily at bedtime Durable Medical Equipment (Wheelchair)?See Instructions?small sizewt: 100 lbs ??ht: 5'7 ??lifetime needcopd J44.9 Durable Medical Equipment (Compression Stockings)?See Instructions?surgical, knee length 20-30 mm Hg2 pairs every 3 monthsDx: edema ICD 10 code R 60.0 Durable Medical Equipment (TOILET SEAT)?See Instructions?DX: M19.90 OSTEOARTHRITISUSE ONCE DAILYWEIGHT 45.2KGHEIGHT 170CM Durable Medical Equipment (Shower Stool)?See Instructions?DX: M19.90 unspecific osteoarthritisHt: 170 cmWt: 48.5 kgLifetime Durable Medical Equipment (Wheel chair cushion)?See Instructions?DX: M19.90 unspecific osteoarthritis Ht: 170 cmWt: 48.5 kgLife time Folic Acid (folic acid 1 mg oral tablet)?1?Milligram?1?tablet?By Mouth?Daily Furosemide (Lasix 40 mg oral tablet)?40?Milligram?1?tablet?By Mouth?Daily Gabapentin (gabapentin 300 mg oral capsule)?2?capsule?By Mouth?3 times a day HydrOXYzine (hydrOXYzine hydrochloride 10 mg oral tablet)?3?tab(s)?30?Milligram?By Mouth?3 times a day?as needed? NEEDED FOR ANXIETY Lactulose (lactulose 10 gm/15 ml oral syrup)?15?Milliliter?10?gram?By Mouth?2 times a day?as needed?as needed for constipation Lorazepam (LORazepam 0.5 mg oral tablet)?0.5?tab(s)?0.25?Milligram?By Mouth?2 times a day?as needed?as needed for anxiety Melatonin (melatonin 3 mg oral tablet)?1?tab(s)?3?Milligram?By Mouth?Daily at bedtime Metoprolol (Metoprolol Succinate ER 25 mg oral tablet, extended release)?2?tab(s)?50?Milligram?By Mouth?2 times a day Milk of Magnesia (Milk of Magnesia 8% oral suspension)?30?Milliliter?2.4?gram?By Mouth?Daily at bedtime?as needed?for constipation Multivitamin (multivitamin Multiple Vitamins oral capsule)?1?capsule?By Mouth?Daily Nicotine?21?Milligram?Topically?Daily Oxycodone (oxyCODONE 5 mg oral tablet)?2.5?Milligram?0.5?tablet?By Mouth?Every 6 hours?as needed?for 7?Days?as needed for pain Pantoprazole (pantoprazole 40 mg oral delayed release tablet)?1?tab(s)?40?Milligram?By Mouth?Daily Sertraline (sertraline 25 mg oral tablet)?1?tab(s)?25?Milligram?By Mouth?Daily Thiamine (thiamine 100 mg oral tablet)?100?Milligram?By Mouth?Daily Tiotropium (Spiriva HandiHaler 18 mcg inhalation capsule)?1?capsule?18?Microgram?Inhalation?Daily?for 30?Days ? Vaccinations and Immunoprophylaxis influenza virus vaccine, inactivated: 0.7 mL (10/09/21 15:03:00) influenza virus vaccine, inactivated: 0 Unknown (10/20/17 12:00:00) influenza virus vaccine, inactivated: 0.5 Unknown (08/03/16 08:00:00) influenza virus vaccine, inactivated: 0.5 mL (09/19/15 08:46:00) influenza virus vaccine, inactivated: 0.5 Unknown (09/15/13 07:00:00) influenza virus vaccine, inactivated: 0.5 Unknown (09/08/12 07:00:00) influenza virus vaccine, inactivated: 0 Unknown (10/29/11 00:00:00) pneumococcal 23-valent vaccine: 0 Unknown (07/31/10 00:00:00) SARS-CoV-2 (COVID-19) mRNA BNT-162b2 vac: 0.3 Unknown (08/26/21 08:00:00) SARS-CoV-2 (COVID-19) mRNA BNT-162b2 vac: 0.3 Unknown (01/28/21 08:00:00) SARS-CoV-2 (COVID-19) mRNA BNT-162b2 vac: 0.3 Unknown (01/07/21 07:00:00) tetanus/diphtheria/pertussis, acel(Tdap): 0 Unknown (04/19/12 00:00:00) ?? Future Appointments Wednesday 9:40 AM EST ?? 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 She is felt to to have a COPD exacerbation without a heart failure exacerbation contributing to her symptoms. ?? Acute on chronic respiratory failure with hypoxemia (J96.21) ??COPD Exacerbation ??Chronic HFrEF (I50.23) ??Completed steroids DuoNeb treatments as needed ??[facility] following ??Daily weights and strict I's and O's ??Home dose Lasix 40 mg PO ?? Leukocytosis (D72.829) ??Patient noted to have a leukocytosis without any clear underlying source of infection. ??We will obtain a UA as well. ??Blood cultures were obtained in the ED and will be followed for any growth. ?? Atrial fibrillation ??Continue metoprolol, digoxin, and apixaban ?? Hyperlipidemia. ??Continue statin ?? History of compression fractures. ??Gabapentin ?? FULL CODE ??ELIQUIS ?? MEDICAL DECISION MAKING: High: Acute on Chronic illness w/ Severe exacerbation, progression, complexity of treatment, illness or injury that poses a threat to life or bodily function; 3 of (note / test / order / independent historian), interpretation / discussion. ?? Total patient care time: 60 minutes. ?? Objective Measurements?? Height: 170 cm (08/10/23) Weight: 46.1 kg (08/10/23) Dry Weight: 46.3 kg (08/04/23) Body Mass Index:??15.16 kg/m2??Low (08/05/23) ? Vital Signs?? Temperature: 97.6 DegF (08/10/23 08:07:00) Temperature Route: Temporal (08/10/23 08:07:00) Pulse Rate: 70 bpm (08/10/23 08:43:00) Respiratory Rate: 18 br/min (08/10/23 09:52:00) Systolic Blood Pressure: 116 mm Hg (08/10/23 08:43:00) Diastolic Blood Pressure: 68 mm Hg (08/10/23 08:43:00) Blood pressure sites: Arm, left (08/10/23 08:07:00) Mean Arterial Pressure: 84 mm Hg (08/10/23 08:07:00) Pulse Pressure: 48 mm Hg (08/10/23 08:07:00) Oxygen Saturation: 97 % (08/10/23 08:07:00) Liters per Minute: 5 L/min (08/10/23 08:07:00) Mode of Delivery (Oxygen): Nasal cannula (08/10/23 08:07:00) Early Warning Score: 3 (08/10/23 09:52:35) ? . Physical Exam ?Gen:??Frail, A&O x3 ?Resp:Decreased bibasilar breath sounds ?CV:??Regular rhythm,??regular rate;??S1/S2 present;??No murmurs, rubs, or gallops??appreciated.?No JVD.??No extremity edema ?GI: Soft, nontender, no??organomegaly palpated,??nondistended, + bowel sounds ?Skin: No lesions seen ?Psych: appropriate affect _ Consultants [facility] Patient Education Titles Preventing Common Respiratory Infections?? Follow-Up Appointments Added Follow Up ?Time Frame ?Comments [facility] Mayra ORTIZ, Graciela Fuentes NP, Gio Luque?4 to 5 weeks?The office will call youwith time/date of your appt. Results Discharge Labs BLOOD COUNT & DIFF WBC 12.9 k/mm3 (High)?? 08/09/2023 05:36 RBC 3.13 m/mm3 (Low)?? 08/09/2023 05:36 Hgb 9.7 Gm/dL (Low)?? 08/09/2023 05:36 Hct 29.7 % (Low)?? 08/09/2023 05:36 MCV 94.9 femtoliters ()?? 08/09/2023 05:36 MCH 31.0 pg ()?? 08/09/2023 05:36 MCHC 32.7 g/dL (Low)?? 08/09/2023 05:36 Platelet Count 274 k/mm3 ()?? 08/09/2023 05:36 RDW-SD 45.1 femtoliters ()?? 08/09/2023 05:36 MPV 9.8 femtoliters ()?? 08/09/2023 05:36 Nucleated RBC (Automated) 0.0 #/100 WBC'S ()?? 08/09/2023 05:36 Abs. NRBC 0.0 k/mm3 ()?? 08/09/2023 05:36 Abs. Neut 15.1 k/mm3 (High)?? 08/05/2023 06:14 Abs. Lymph 0.4 k/mm3 (Low)?? 08/05/2023 06:14 Abs. [place] 0.7 k/mm3 ()?? 08/05/2023 06:14 Abs. Eo 0.0 k/mm3 ()?? 08/05/2023 06:14 Abs. Baso 0.1 k/mm3 ()?? 08/05/2023 06:14 Neut % 91.7 % (High)?? 08/05/2023 06:14 Lymph % 2.4 % (Low)?? 08/05/2023 06:14 [place] % 4.0 % (Low)?? 08/05/2023 06:14 Eos % 0.0 % ()?? 08/05/2023 06:14 Baso % 0.3 % ()?? 08/05/2023 06:14 Hemoglobin (POC) POC Cartridge 12.6 Gm/dL ()?? 08/04/2023 10:35 Hematocrit (POC) POC Cartridge 37 % ()?? 08/04/2023 10:35 Imm Gran 1.6 % ()?? 08/05/2023 06:14 Abs. Imm Gran 0.3 k/mm3 ()?? 08/05/2023 06:14 ?? BLOOD GAS pH Venous (POC) POC Cartridge 7.42 ()?? 08/04/2023 10:35 pCO2 Venous (POC) POC Cartridge 65.9 mm Hg (High)?? 08/04/2023 10:35 pO2 Venous (POC) POC Cartridge 45 mm Hg (High)?? 08/04/2023 10:35 Est Bicarbonate (POC) POC Cartridge 42.8 mmol/L (High)?? 08/04/2023 10:35 % O2 Sat Venous (POC) POC Cartridge 80 ()?? 08/04/2023 10:35 Base Excess (POC) POC Cartridge 18 ()?? 08/04/2023 10:35 Specimen Type - Blood Gas VENOUS ()?? 08/04/2023 11:08 pH, Venous 7.33 ()?? 08/04/2023 11:08 pCO2, Venous 73 mm Hg (High)?? 08/04/2023 11:08 pO2, Venous 160 mm Hg (High)?? 08/04/2023 11:08 Bicarbonate, Estimated(Venous) 38 mmol/L (High)?? 08/04/2023 11:08 ? CARDIAC Nt-Probnp 5487 pg/mL (High)?? 08/04/2023 10:25 High Sensitivity Troponin (HSTnT) 30 ng/L (High)?? 08/04/2023 16:30 ?? CHEM GENERAL Sodium 134 mmol/L ()?? 08/09/2023 05:38 Potassium 3.6 mmol/L ()?? 08/09/2023 05:38 Chloride 85 mmol/L (Low)?? 08/09/2023 05:38 Bicarbonate Level 41 mmol/L (Critical)?? 08/09/2023 05:38 Anion Gap 8 ()?? 08/09/2023 05:38 Sodium (POC) POC Cartridge 131 mmol/L (Low)?? 08/04/2023 10:35 Potassium (POC) POC Cartridge 3.8 mmol/L ()?? 08/04/2023 10:35 Glucose Level 129 mg/dL (High)?? 08/09/2023 05:38 Glucose (POC) POC Cartridge 189 (High)?? 08/04/2023 10:35 Glucose, POC 258 mg/dL (High)?? 08/08/2023 21:03 BUN 17 mg/dL ()?? 08/09/2023 05:38 Creatinine-Blood 0.3 mg/dL (Low)?? 08/09/2023 05:38 Estimated GFR Creatinine 115 ML/MIN/1.73 M2 ()?? 08/09/2023 05:38 Calcium 8.8 mg/dL ()?? 08/09/2023 05:38 Ionized Calcium (POC) POC Cartridge 1.10 mmol/L (Low)?? 08/04/2023 10:35 Magnesium 1.6 mg/dL ()?? 08/09/2023 05:38 Protein, Total 5.7 Gm/dL (Low)?? 08/04/2023 10:25 Albumin 3.8 Gm/dL ()?? 08/04/2023 10:25 AG Ratio 2.0 ()?? 08/04/2023 10:25 Alkaline Phosphatase 152 units/L (High)?? 08/04/2023 10:25 AST (SGOT) 18 units/L ()?? 08/04/2023 10:25 ALT (SGPT) 19 units/L ()?? 08/04/2023 10:25 Bilirubin, Total 0.4 mg/dL ()?? 08/04/2023 10:25 Lactate 2.5 mmol/L (High)?? 08/04/2023 16:30 ?? HEME OTHER Hold Blue Top SPECIMEN DISCARDED AFTER 4 HOURS. ()?? 08/04/2023 10:25 ? TOXICOLOGY/TDM Digoxin Level 1.8 ng/mL ()?? 08/04/2023 10:25 ? UA/URINALYSIS Appear/Color, Urine LIGHT YELLOW ()?? 08/06/2023 14:40 Specific [place], Urine 1.011 ()?? 08/06/2023 14:40 pH, Urine 7.0 ()?? 08/06/2023 14:40 Albumin, Urine NEGATIVE ()?? 08/06/2023 14:40 Glucose, Urine TRACE (Abnormal)?? 08/06/2023 14:40 Ketones, Urine NEGATIVE ()?? 08/06/2023 14:40 Bilirubin, Urine NEGATIVE ()?? 08/06/2023 14:40 Hemoglobin, Urine NEGATIVE ()?? 08/06/2023 14:40 Nitrite, Urine NEGATIVE ()?? 08/06/2023 14:40 Leukocyte, Urine 1+ (Abnormal)?? 08/06/2023 14:40 Urobilinogen NORMAL mg/dL ()?? 08/06/2023 14:40 WBC's, Urine 2 /HPF ()?? 08/06/2023 14:40 RBC's, Urine NONE SEEN /HPF ()?? 08/06/2023 14:40 Squamous Epith <1 /HPF ()?? 08/06/2023 14:40 Hyaline Cast 1 LPF ()?? 08/06/2023 14:40 Mucus SLIGHT /LPF ()?? 08/06/2023 14:40 Hold Urine Culture Testing available 48 hours from time of collection. ()?? 08/06/2023 14:40 ? URINE OTHER Est Creatinine Clearance 138.47 mL/min ()?? 08/09/2023 06:41 ? VIROLOGY COVID-19 by RT-PCR NEGATIVE ()?? 08/04/2023 10:49 ? 39??minutes spent on discharge * Ramonita Blake RN: VERIFY, PERFORM, SIGN Event Display: Case Management Discharge Plan Authored Date: Patient: KATERINE NICOLE Age: 62 years Sex: Female : 1960 Associated Diagnoses: None Author: Ramonita Blake RN Discharge Plan Case Management Discharge Plan : Case Management Discharge Plan Data 08/10/2023 10:48 EDT Discharge Level of Care at Discharge group home facility Discharge Nursing Homes/Rehab Facilities [facility] Discharge Transportation Arranged [facility] [address] [facility] [address] [phone] Discharge Arranged Transport Date/Time 08/10/2023 12:30 Mode of Transportation Arranged Ambulance Agency [facility] #1 Intake Service Categories #1 Nebulizer, Occupational Therapy, Oxygen Therapy, Physical Therapy, Usp Service Comments #1 You are being discharged to rehab. Name of Person Notified of Transfer Katerine Nicole * Alesia LUIS, Angelica Briceno: PERFORM Event Display: Patient Education/Instruction Authored Date: Inpatient Adult Discharge Instructions [address] [address] Name: KATERINE NICOLE : 1960 Visit: 08/04/2023 14:53:00 Current Date: 08/10/2023 12:04 Account: [id number] Inpatient Adult Discharge Instructions We would like to thank you for allowing us to assist you with your healthcare needs. The following includes patient education materials and information regarding your injury/illness. Our entire staffstrives to provide an excellent experience for our patients and their families. PLEASE ENSURE YOU FOLLOW-UP PER THE INSTRUCTIONS BELOW! ?? YOUR OPINION IS IMPORTANT TO US! Please complete the survey you may receive by mail or email. Your feedback will be used to make improvements to the healthcare experiences of our patients and their families. Surveys are administered by [employer] ?? If further treatment with your primary care physician or another doctor is recommended, it is important for you to keep the appointment. Call your primary care physician or return to the Emergency Department immediately if your condition worsens, fails to improve, or new symptoms develop. If you need to find a doctor, you can call [facility] Link for a referral at [phone] or toll free at [phone] ([phone]) or log in to [email or web address].. ?? [facility], in keeping with [facility] guidance, no longer requires face masks for staff, patientsor visitors in most situations. Similiar to time spent indoors at other locations, there is the chance that you were exposed to repiratory viruses during your time with us (such as flu or COVID-19). If you develop symptoms concerning for a viral respiratory infection, please seek testing (and treatment if indicated) from your medical provider or home test kit. ?? You can view and manage your care through the patient portal or by using a health care noemi of your choosing. [employer] is a website that allows you to securely view your medical information including your hospital discharge summary, office visit summaries, medications and follow-up visits. You can also request appointments, renew medications, and request access to your medical information using a health care noemi of your choosing, or just ask a question. You can enroll at [email or web address] or register during your next office visit. You have been discharged from [facility], Patient Care Unit: M7. If you have any questions regarding these instructions after you leave, please call us and we will be happy to assist you. [facility] Your Care Team Attending Physician Aleksander Smith DO Consulting Providers Parminder Case DO; Fátima ORTIZ, Lynda Moreno Discharging Providers Aleksander Smith DO Reason for Admission SOB Your Diagnosis Acute on chronic respiratory failure with hypoxemia Acute on chronic systolic heart failure Leukocytosis COPD exacerbation Tests Performed Below is a partial list of the tests performed during your hospitalization. You may have had other tests and procedures not included in this list. Please discuss all test results with your provider. BASE EXCESS POC CARTRIDGE Basic Metabolic Panel Blood Gas Venous BNP BUN CALCIUM IONIZED POC CART Calcium Level CBC CBC w/ Differential Comprehensive Metabolic Panel COVID-19 (Novel Coronavirus), Rapid PCR Creatinine Digoxin Level Electrolytes Glucose Level GLUCOSE POC GLUCOSE POC CARTRIDGE HEMATOCRIT POC CARTRIDGE HEMOGLOBIN POC CARTRIDGE Hold Blue Top Tube Lactate Level Magnesium Level POTASSIUM POC CARTRIDGE SODIUM POC CARTRIDGE Troponin T, High Sensitivity Urinalysis w/hold for Urine Culture VBG POC CARTRIDGE XR Chest Portable Primary Care Provider Graciela Nunez MD Advance Directive Health Care Proxy on File Yes - Health Care Proxy Discharge Vitals Temperature: 97.6 DegF Height: 170 cm Pulse Rate: 70 bpm Weight: 46.1 kg Respiratory Rate: 18 br/min Body Mass Index:??15.16 kg/m2??Low Systolic Blood Pressure: 116 mm Hg Body surface area: 1.44 Diastolic Blood Pressure: 68 mm Hg ?? Oxygen Saturation: 97 % ?? Studies Pending All tests and labs ordered during this hospital stay have been completed unless listed below. Please discuss all pending results with your provider listed above in these instructions. ?? COVID-19 (Novel Coronavirus), Rapid PCR UA W/Reflex Culture & Renal What to do next Instructions From Your Doctor Discharge Orders Scheduled Follow-Up Appointments Wednesday 9:40 AM EST ?? With: Graciela Nunez MD Where: [facility] [address] [place] [address]- Status: Pending You Need to Schedule the Following Appointments Follow Up with??[facility] Where: [address] [place] [address]- Follow Up with??Graciela Nunez MD Where: ?? Follow Up with??Alfredo FLOWERS, Gio Luque When:??Within 4 to 5 weeks Why: The office will call you with time/date of your appt. Where: [address] [facility] [place] [address]- Discharge Medications KATERINE NICOLE :1960 Visit Date:08/04/2023 Medications: Please continue your medications until treatment is completed or stopped by your provider. Medications not listed below should be discontinued. Discuss any questions related to medications with your provider. What How Much When Why Instructions Next Dose New Collagenase Topical (Santyl Topical Oint) 1 applicator Topically Daily New Oxycodone (oxyCODONE 5 mg oral tablet) 0.5 tab(s) Oral Every 6 hours as needed for as needed for pain Duration: 7 Days Printed Prescription New Thiamine (thiamine 100 mg oral tablet) 100 Milligram Oral Daily Unchanged Acetaminophen (acetaminophen 325 mg oral tablet) 2 tab(s) Oral Every 4 hours as needed for as needed for fever/pain Unchanged Albuterol (Ventolin HFA 108 mcg/ inh inhalation aerosol with adapter) 2 puff(s) Inhalation 4 times a day as needed for for wheezing Emphysema/COPD Unchanged Albuterol/ Ipratropium (albuterol-ipratropium 3 mg-0.5 mg/ 3 ml inhalation solution) 3 Milliliter Nebulized inhalation 4 times a day as needed for Wheezing/Shortness of Breath Unchanged apixaban (apixaban 5 mg oral tablet) 5 Milligram Oral Twice a day Unchanged Aspirin (aspirin 81 mg oral delayed release tablet) 1 tab(s) Oral Daily Unchanged Atorvastatin (atorvastatin 20 mg oral tablet) 1 tab(s) Oral Daily Unchanged Bisacodyl (Dulcolax 10 mg rectal suppository) 1 suppository(ies) Per rectum Daily as needed for as needed for constipation Unchanged Budesonide-Formoterol (Symbicort 160mcg/ 4.5mcg Inhaler) 2 puff(s) Inhalation Twice a day Unchanged Cholecalciferol (Vitamin D3 1000 intl units oral capsule) 1 capsule Oral Daily Unchanged Digoxin (digoxin 0.25 mg oral tablet) 1 tab(s) Oral Daily Unchanged Diltiazem (diltiazem 180 mg/ 24 hours oral capsule, extended release) 180 Milligram Oral Daily Unchanged Docusate (docusate sodium 100 mg oral capsule) 1 capsule Oral Twice a day as needed for as needed for constipation Unchanged Docusate-Senna (docusate-senna 50 mg-187 mg oral tablet) 2 tab(s) Oral Daily at Bedtime Unchanged Folic Acid (folic acid 1 mg oral tablet) 1 tab(s) Oral Daily Unchanged Furosemide (Lasix 40 mg oral tablet) 1 tab(s) Oral Daily Unchanged Gabapentin (gabapentin 300 mg oral capsule) 2 capsule Oral 3 times a day Unchanged HydrOXYzine (hydrOXYzine hydrochloride 10 mg oral tablet) 3 tab(s) Oral 3 times a day as needed for NEEDED FOR ANXIETY Unchanged Lactulose (lactulose 10 gm/ 15 ml oral syrup) 15 Milliliter Oral Twice a day as needed for as needed for constipation Unchanged Lorazepam (LORazepam 0.5 mg oral tablet) 0.5 tab(s) Oral Twice a day as needed for as needed for anxiety Unchanged Melatonin (melatonin 3 mg oral tablet) 1 tab(s) Oral Daily at Bedtime Unchanged Metoprolol (Metoprolol Succinate ER 25 mg oral tablet, extended release) 2 tab(s) Oral Twice a day Unchanged Milk of Magnesia (Milk of Magnesia 8% oral suspension) 30 Milliliter Oral Daily at Bedtime as needed for for constipation Unchanged Multivitamin (multivitamin Multiple Vitamins oral capsule) 1 capsule Oral Daily Unchanged Nicotine 21 Milligram Topically Daily Unchanged Pantoprazole (pantoprazole 40 mg oral delayed release tablet) 1 tab(s) Oral Daily Unchanged Sertraline (sertraline 25 mg oral tablet) 1 tab(s) Oral Daily Unchanged Tiotropium (Spiriva HandiHaler 18 mcg inhalation capsule) 1 capsule Inhalation Daily Duration: 30 Days ?? What How Much When Comments Stop Taking Baclofen (baclofen 10 mg oral tablet) 1 tab(s) Oral Twice a day as needed for Pain , Moderate Duration: 14 Days Stop Taking Tramadol (traMADol 50 mg oral tablet) 1 tab(s) Oral 3 times a day with meals TAKE 1 TABLET BY MOUTH 3 TIMES A DAY FOR 7 DAYS NEEDED FOR PAIN ?? Test Results Below is a partial list of the most recent Laboratory test results done prior to this discharge. You may have had other tests and procedures not included in this list. Please discuss all test resultswith your provider. Est Creatinine Clearance - 138.47 mL/min (08/09/2023) BASE EXCESS POC CARTRIDGE (08/04/2023) ???Base Excess (POC) POC Cartridge - 18 Basic Metabolic Panel (08/05/2023) ???Sodium - 137 mmol/L???Potassium - 5.0 mmol/L???Chloride - 87 mmol/L???Bicarbonate Level - 43 mmol/L???Anion Gap - 7???Glucose Level - 109 mg/dL???BUN - 15 mg/dL???Creatinine-Blood - 0.3 mg/dL???Estimated GFR Creatinine - 119 ML/MIN/1.73 M2???Calcium - 9.0 mg/dL Blood Gas Venous (08/04/2023) ???Specimen Type - Blood Gas - VENOUS???pH, Venous - 7.33???pCO2, Venous - 73 mm Hg???pO2, Venous -160 mm Hg???Bicarbonate, Estimated(Venous) - 38 mmol/L BNP (08/04/2023) ???Nt-Probnp - 5487 pg/mL BUN (08/09/2023) ???BUN - 17 mg/dL CALCIUM IONIZED POC CART (08/04/2023) ???Ionized Calcium (POC) POC Cartridge - 1.10 mmol/L Calcium Level (08/09/2023) ???Calcium - 8.8 mg/dL CBC (08/09/2023) ???WBC - 12.9 k/mm3???RBC - 3.13 m/mm3???Hgb - 9.7 Gm/dL???Hct - 29.7 %???MCV - 94.9 femtoliters???MCH - 31.0 pg???MCHC - 32.7 g/dL???Platelet Count - 274 k/mm3???RDW-SD - 45.1 femtoliters???MPV - 9.8 femtoliters???Nucleated RBC (Automated) - 0.0 #/100 WBC'S???Abs. NRBC - 0.0 k/mm3 CBC w/ Differential (08/05/2023) ???WBC - 16.4 k/mm3???RBC - 3.54 m/mm3???Hgb - 10.9 Gm/dL???Hct - 34.3 %???MCV - 96.9 femtoliters???MCH - 30.8 pg???MCHC - 31.8 g/dL???Platelet Count - 266 k/mm3???RDW-SD - 47.5 femtoliters???MPV - 10.1 femtoliters???Nucleated RBC (Automated) - 0.0 #/100 WBC'S???Abs. NRBC - 0.0 k/mm3???Abs. Neut - 15.1 k/mm3???Abs. Lymph - 0.4 k/mm3???Abs. [place] - 0.7 k/mm3???Abs. Eo - 0.0 k/mm3???Abs. Baso - 0.1 k/mm3???Neut % - 91.7 %???Lymph % - 2.4 %???[place] % - 4.0 %???Eos % - 0.0 %???Baso % - 0.3 %???Imm Gran - 1.6 %???Abs. Imm Gran - 0.3 k/mm3 Comprehensive Metabolic Panel (08/04/2023) ???Sodium - 136 mmol/L???Potassium - 4.2 mmol/L???Chloride - 88 mmol/L???Bicarbonate Level - 39 mmol/L???Anion Gap - 9???Glucose Level - 187 mg/dL???BUN - 17 mg/dL???Creatinine-Blood - 0.3 mg/dL???Estimated GFR Creatinine - 115 ML/MIN/1.73 M2???Calcium - 8.8 mg/dL???Protein, Total - 5.7 Gm/dL???[place] min - 3.8 Gm/dL???AG Ratio - 2.0???Alkaline Phosphatase - 152 units/L???AST (SGOT) - 18 units/L???ALT (SGPT) - 19 units/L???Bilirubin, Total - 0.4 mg/dL COVID-19 (Novel Coronavirus), Rapid PCR (08/04/2023) ???COVID-19 by RT-PCR - NEGATIVE Creatinine (08/09/2023) ???Creatinine-Blood - 0.3 mg/dL???Estimated GFR Creatinine - 115 ML/MIN/1.73 M2 Digoxin Level (08/04/2023) ???Digoxin Level - 1.8 ng/mL Electrolytes (08/09/2023) ???Sodium - 134 mmol/L???Potassium - 3.6 mmol/L???Chloride - 85 mmol/L???Bicarbonate Level - 41 mmol/L???Anion Gap - 8 Glucose Level (08/09/2023) ???Glucose Level - 129 mg/dL GLUCOSE POC (08/08/2023) ???Glucose, POC - 258 mg/dL GLUCOSE POC CARTRIDGE (08/04/2023) ???Glucose (POC) POC Cartridge - 189 HEMATOCRIT POC CARTRIDGE (08/04/2023) ???Hematocrit (POC) POC Cartridge - 37 % HEMOGLOBIN POC CARTRIDGE (08/04/2023) ???Hemoglobin (POC) POC Cartridge - 12.6 Gm/dL Hold Blue Top Tube (08/04/2023) ???Hold Blue Top - SPECIMEN DISCARDED AFTER 4 HOURS. Lactate Level (08/04/2023) ???Lactate - 2.5 mmol/L Magnesium Level (08/09/2023) ???Magnesium - 1.6 mg/dL POTASSIUM POC CARTRIDGE (08/04/2023) ???Potassium (POC) POC Cartridge - 3.8 mmol/L SODIUM POC CARTRIDGE (08/04/2023) ???Sodium (POC) POC Cartridge - 131 mmol/L Troponin T, High Sensitivity (08/04/2023) ???High Sensitivity Troponin (HSTnT) - 30 ng/L Urinalysis w/hold for Urine Culture (08/06/2023) ???Appear/Color, Urine - LIGHT YELLOW???Specific [place], Urine - 1.011???pH, Urine - 7.0???Albumin, Urine - NEGATIVE???Glucose, Urine - TRACE???Ketones, Urine - NEGATIVE???Bilirubin, Urine - NEGATIVE???Hemoglobin, Urine - NEGATIVE???Nitrite, Urine - NEGATIVE???Leukocyte, Urine - 1+???Urobilinogen - NORMAL? ?WBC's, Urine - 2 /HPF? ?RBC's, Urine - NONE SEEN? ?Squamous Epith - <1 /HPF? ?Hyaline Cast - 1 LPF???Mucus - SLIGHT???Hold Urine Culture - Testing available 48 hours from time of collection. VBG POC CARTRIDGE (08/04/2023) ???pH Venous (POC) POC Cartridge - 7.42???pCO2 Venous (POC) POC Cartridge - 65.9 mm Hg???pO2 Venous(POC) POC Cartridge - 45 mm Hg???Est Bicarbonate (POC) POC Cartridge - 42.8 mmol/L???% O2 Sat Venous (POC) POC Cartridge - 80???Specimen Type - Blood Gas - VENOUS Allergies (NKA means No Known Allergies) codeine??(Rash, Nausea) sulfADIAZINE??(Rash) Lyrica??(increased depression) morphine??(respiratory depression) Problems Active Problems??(26) Abnormal TSH?? Anxiety?? At risk for falls?? Atrial fibrillation?? Bradycardia?? Breast pain?? Cervical radiculopathy?? Chronic respiratory failure with hypoxia?? Compression fracture of lumbar vertebra?? Compression fracture of spine?? Constipation?? End stage COPD?? Heart failure with mid-range ejection fraction?? Hyperlipidemia?? Hyponatremia?? Leg swelling?? Lung nodule?? Osteoporosis?? Paroxysmal atrial flutter?? Peripheral neuropathy?? Pulmonary nodule?? Raynaud's phenomenon?? Rectal bleed?? T12 compression fracture?? Thoracic compression fracture?? Underweight?? Education Materials Below is the list of Educational Leaflet Providered with your Discharge Instructions. Discharge Instructions for Atrial Fibrillation?? Pulmonary Hypertension?? Discharge Instructions:??COPD?? Heart Failure Discharge Instructions for Heart Failure?? Preventing Common Respiratory Infections?? Valuables and Belongings I fully understand and agree that [facility] accepts no responsibility for all my personal property including clothing, toilet articles, radios, jewelry, dentures, hearing aids, rings, money, or any other property that is in my possession or is brought to me after admission. I understand certain valuables may be placed in a hospital safe for a short period of time. I understand that the hospital is not liable for loss or damage due to accident, fire, or other natural occurrence while said property is in the safe. I accept full responsibility for any personal property that I keep with me, and will not hold the hospital responsible in case of loss or disappearance. I acknowledge that i have been encouraged to send valuables and belongings home. ?? Review of Valuable and Belonging List: With patient, With family Date for Pt to Sign Valuables/Belongings: 08/04/23 16:48:00 ?? Other Discharge Information ? Case Management Discharge Plan?? Discharge Plan?? Discharge Agency Information?? Discharge Level of Care at Discharge: group home facility Agency [facility] Custom #1: Intake Discharge Transportation Arranged: [facility] [address] [facility] [address] [phone] Service Categories #1: Nebulizer, Occupational Therapy, Oxygen Therapy, Physical Therapy, Usp Mode of Transportation Arranged: Ambulance Service Comments #1: You are being discharged to rehab. Discharge Arranged Transport Date/Time: 08/10/23 12:30:00 Name of Person Notified of Transfer: Katerine Nicole Discharge Nursing Homes/Rehab Facilities: [facility] ? Pulmonary Rehab Status?? Pulmonary Rehab Discharge Status?? CPAP/BiPAP Mask Type: Full CPAP/BiPAP Mask Size: Small Respiratory Rate: 18 br/min ? Common Emergency Awareness Tips IS IT A STROKE? Act FAST and Check for these signs: FACE Does the face look uneven? ARM Does one arm drift down? SPEECH Does their speech sound strange? TIME Call at any sign of stroke ?? Heart Attack Signs Chest discomfort: Most heart attacks involve discomfort in the center of the chest and lasts more than a few minutes, or goes away and comes back. It can feel like uncomfortable pressure, squeezing, fullness or pain. Discomfort in upper body: Symptoms can include pain or discomfort in one or both arms, back, neck, jaw or stomach. Shortness of breath: With or without discomfort. Other signs: Breaking out in a cold sweat, nausea, or lightheaded. Remember, MINUTES DO MATTER. If you experience any of these heart attack warning signs, call to get immediate medical attention! ?? Smoking can increase your chances of developing chronic health problems and can cause harmful effects to other family members in your house. If you smoke, you are strongly encouraged to quit. Please call [facility] at [phone] or [phone] ([phone]) or log in to [email or web address] for referrals to smoking cessation programs. ?? 906 Suicide & Crisis Lifeline is available 24/05 if you or someone you know needs to find a reason to keep living. By calling 500 you'll be connected to a skilled, trained counselor at a crisis center in your area. INPATIENT DISCHARGE INSTRUCTIONS SIGNATURE PAGE KATERINE NICOLE Location:[facility] Registration Date and Time:08/04/2023 14:53 EDT Primary Care Physician: Graciela Nunez MD, Attending Physician: Aleksander Smith DO, I KATERINE NICOLE, have received the above patient education materials/instructions and have verbalized understanding. If ambulance or transport services are being used I further acknowledge being given a choice of service. ?? If you need to contact me, please call me at this number: . Patient/Sample Sawyer Name: Patient/Sample Sawyer Signature: Relationship to Patient: Witness Name/Signature: Date: * Angelica Dumas RN: PERFORM Event Display: Patient Education Leaflets Authored Date: Discharge Instructions for Atrial Fibrillation ?? 12314 Discharge Instructions for Atrial Fibrillation You have been diagnosed with an abnormal heart rhythm called atrial fibrillation (AFib).??This means your heart???s 2 upper chambers quiver rather than squeeze the blood out in a normal pattern. Thisleads to an irregular and sometimes rapid heartbeat. Some people will have symptoms such as a flip-flopping heartbeat, chest pain, lightheadedness, or shortness of breath. Other people may have no symptoms at all. AFib is serious because it affects the heart???s ability to fill with blood as it should. Blood clots may form. This increases the risk for stroke. Untreated, it can also lead to heart failure. AFib can be controlled. With??treatment, most??people lead normal lives. Treatment options Treatment for AFib depends on your age, symptoms, how long you have had it, and other factors. You will have??a complete evaluation to find out if you have any abnormalities that caused your heart togo into AFib. This might be blocked heart arteries, heart valve problems, or a thyroid problem. Your doctor will assess your case and discuss choices with you. Treatment choices may include: ??? Treating an underlying??disorder that puts you at risk for atrial fibrillation. For example, correcting an abnormal thyroid or electrolyte problem, or treating a blocked heart artery. ??? Restoring a normal heart rhythm with an electrical shock (cardioversion) or with an antiarrhythmic medicine (chemical cardioversion). ??? Using medicine to control your heart rate and rhythm. ??? Taking blood-thinning medicines (anticoagulants). These lower the??risk for blood clot and stroke. Blood-thinners range from aspirin and clopidogrel to others such as rivaroxaban and warfarin. ??? Having a procedure such as left atrial appendage closure. In this procedure, a small pouch in the top of your atrium is blocked off. This pouch is where blood clots often form. The procedure can prevent blood clotsand reduce stroke risk without the need for a blood thinner. ??? Doing catheter ablation or a surgical maze procedure. These??procedures use different methods to create scar tissue in certain areas of heart. This stops the abnormal electrical signals that cause AFib.??This may be an option when??medicines don't work. It may be used instead of taking a medicine shelter. Your provider may advise other treatment choices. Managing risk factors for stroke and preventing heart failure are important parts of any??treatmentplan for AFib. ?? Home care ??? Take your medicines exactly as directed. Don???t skip doses. ??? Work with your healthcare provider to find the right medicines and doses for you. ??? Learn to take your own pulse. Keepa record of your results. Ask your provider which pulse rates mean that you need medical attention.Slowing your pulse is often the goal of treatment. Ask your provider if it???s OK for you to use anautomatic machine to check your pulse at home. Sometimes these machines don???t count the pulse correctly with AFib. ??? Limit how much coffee, tea, cola, and other drinks with caffeine you have. Askyour provider if you should cut out all caffeine. ??? Don't take qpbm-gge-vsavjfm medicines that have caffeine in them. Also don't take medicines with pseudoephedrine. ??? Let your provider know whatmedicines you take. These include prescription and prdo-gct-lhlmqhe medicines, as well as any supplements. They interfere with some medicines given for AFib. ??? Ask your provider if ??you can drink alcohol. Some people need to cut out??alcohol??to better treat AFib. If you are taking blood-thinnermedicines, alcohol may interfere with them by increasing their effect. ??? Never take stimulants such as amphetamines or cocaine. These drugs can speed up??your heart rate and trigger AFib. ??? Manage your weight. If you are above your ideal body weight, losing excess pounds can reduce your incidence of AFib. ?? Follow-up care Follow up with your healthcare provider as advised. ?? When to call your healthcare provider Call your healthcare provider right away if you have any of the following: ??? Weakness ??? Dizziness ??? Fainting ??? Tiredness (fatigue) ??? Shortness of breath ??? Chest pain with increased activity ??? A change in the usual regularity of your heartbeat, or an unusually fast heartbeat ?? Last Reviewed Date: 2021 ?? [employer]. All rights reserved. This information is not intended as a substitute for professional medical care. Always follow your healthcare professional's instructions. ?? * Alesia LUIS, Angelica Briceno: PERFORM Event Display: Patient Education Leaflets Authored Date: Pulmonary Hypertension ?? [id number] Pulmonary Hypertension Pulmonary hypertension is high pressure in the blood vessels that carry blood into the lungs. This strains the lungs and heart. It can lead to serious problems. High blood pressure Systemic hypertension means the pressure is too high in blood vessels all throughout the body. A person with pulmonary hypertension may also have high blood pressure throughout the body. ?? What causes pulmonary hypertension? The cause is sometimes not known. But it's most often caused by another health problem. In many cases, controlling this problem can help prevent or control pulmonary hypertension. Some of the most common causes of pulmonary hypertension are below. In children: ??? Severe lung problems in a ??? Lung conditions, such as cystic fibrosis or interstitial lung disease ??? Congenital heart defects ??? Other conditions, such as scleroderma, lupus, or sickle cell disease ??? Genetic disease In adults: ??? Lung conditions, such as chronic obstructive pulmonary disease??(COPD), advanced bronchitis, cystic fibrosis, or pulmonary fibrosis ??? Liver disease ??? Blood clots in the lungs ??? Left-sided heart failure ??? Sleep apnea ??? Other conditions, such as scleroderma, lupus, or sickle cell disease ??? Some medicines ??? Genetic disease ?? What are the symptoms of pulmonary hypertension? Symptoms may come on suddenly. Or, they may come on slowly over time. Symptoms can include: ??? Shortness of breath ??? Blue lips or fingernails (signs of low oxygen) ??? Tiring quickly, especially when active ??? Fast heartbeat ??? Pain in the upper right side of the abdomen ??? Swelling in the legs or ankles ??? Chest pain or pressure ??? Fainting or dizzy spells ?? How is pulmonary hypertension diagnosed? Your healthcare provider will give you an exam. They will listen to your heart and lungs. They willmeasure your blood pressure. You may have tests such as: ??? Blood tests. These measure certain body functions. They also check for problems such as infection. ??? Chest X-ray. This takes a picture of the inside of the chest. It can show some heart and lung problems. ??? Electrocardiogram (ECG). This test records the heart???s electrical activity. ??? Echocardiogram (echo). This test uses sound waves to create a moving picture of the heart. ??? Pulmonary function tests. These tests measure breathing and lung capacity. ??? Perfusion lung scan. This scan may be used to find changes in the arteries that lead to the lungs. It can show blood flow inside the lungs. And it can show blood clots. ??? CT scan of the chest. This test takes detailed pictures of the lungs. ??? 6-minute walk test. Thistest measures your exercise tolerance. It checks if your oxygen levels drop when you exert yourself. ??? Right heart catheterization (cath). This procedure measures pressures in the heart and lungs. It???s the only test that measures the pressure inside the pulmonary arteries. A thin tube (catheter) is put into a blood vessel in the groin or neck. It's guided into the right side of the heart and to the pulmonary artery. This is the main artery that sends blood to your lungs. Blood pressure tests are then done. ?? How is pulmonary hypertension treated??? Treatment depends on your age, health, and how bad your symptoms are. Any underlying health problems you have will be treated. Treatment may also include: ??? Oxygen ??? Medicine to lower the pressure in the lung blood vessels ??? Medicine to help the body lose excess water ??? Medicine to prevent blood clots ??? Medicine that helps the heart beat stronger, pump more blood, and control abnormal heart rhythms ?? What are the long-term concerns? Pulmonary hypertension has no cure. But some treatments may relieve symptoms and slow the progression of the disease. In rare and severe cases, a lung transplant may be needed. Your healthcare provider can tell you more about this if needed. ?? When to call your healthcare provider Call??your healthcare provider??right away if you have any of these: ??? Blueness of lips, fingernails, or earlobes ??? Shortness of breath ??? Dizziness or lightheadedness ??? Headache ??? Fever of 100.4?? F ( 38.0??C ) or higher or as advised by your healthcare provider ??? New or unusual swelling of the legs or feet ??? Symptoms that get worse ??? New symptoms ?? Call 911 Call 911 if you have any of these: ??? Chest pain ??? Trouble breathing or worsening shortness of breath ??? Fainting ??? Coughing up blood ??? Fast or irregular heart rate ?? Last Reviewed Date: 2021 ?? [id number] [employer]. All rights reserved. This information is not intended as a substitute for professional medical care. Always follow your healthcare professional's instructions. ?? * Alesia LUIS, Angelica Briceno: PERFORM Event Display: Patient Education Leaflets Authored Date: [id number] Discharge Instructions:??COPD ?? 61578 Discharge Instructions:??COPD You have been diagnosed with chronic obstructive pulmonary disease (COPD). This group of diseases that limit the flow of air in and out of your lungs. This makes it harder to breathe. With COPD, you are also more likely to get lung infections. COPD includes chronic bronchitis and emphysema. COPD is??most often caused by heavy, long-term cigarette smoking. Home care Quit??smoking ??? If you smoke, get help to quit. It's the best thing you can do for your COPD and your overall health. ??? Join a program to stop smoking. There are even telephone, text message, and online programs to help you quit. ??? Ask your??healthcare provider??about medicines or other methods to help youquit. ??? Ask family members to quit smoking as well. ??? Don't allow people to smoke in your home,in your car,??or when they are around you. ??? Don't use e-cigarettes and vaping products because their long-term risks aren't known. Protect yourself from infection ??? Wash your hands often. Do your best to??keep your hands away from your face. Most germs are spread from your hands to your mouth. ??? Get a flu shot every year. Also ask your??healthcare providerabout pneumonia vaccines and the most recent COVID vaccine. ??? Stay away from crowds. It's especially important to do this in the winter when more people have colds and flu. ??? Get enough sleep, exercise regularly, and eat a balanced diet to stay healthy. : o Get about 8 hours of sleep every night. o Try to exercise for at least 30 minutes on most days. Ask your healthcare provider what type ofexercise is safe for you. o Have healthy foods, including fruits and vegetables, 100% whole grains,lean meats and fish, and low-fat dairy products. Try to stay away from foods high in fats and sugar. Eating a healthy, balanced diet is important to staying as healthy as possible. So is trying to stay at your ideal weight. Being overweight or underweight can affect your health. Take your medicines and use oxygen therapy Take your medicines exactly as directed. Don't skip doses. Talk with your healthcare provider during each appointment about how well you can: ??? Correctly use your inhaler. This is to make sure you are getting the correct medicine dose. ???[place] with other conditions you have and their treatments and if they affect your COPD Use oxygen correctly if you use it. That means the amount you use and the length of time you use it. ??? Discuss long-term oxygen therapy with your provider. ??? Don???t allow smoking in your home, inyour car, or around you. This is very important if you use oxygen. Try to stay away from things that may affect your breathing. Stay away from indoor and outdoor pollution. Indoor pollution includes burning wood, smoke from home cooking, and heating fuels. Outdoor pollution includes smoke, dusts, vapors, fumes, gases, and other chemicals. It also includes cold weather, high humidity, and allergens. Drink at least 8 glasses of fluid every day to keep mucus thin unless your provider has told you otherwise. Ask about other things that can help. Ask your provider to show you how to breathe through pursed lips to help decrease shortness of breath. Manage your stress Stress can make COPD worse. Use this stress management method: ??? Find a quiet place and sit or lie in a comfortable position. ??? Close your eyes and do breathing exercises for several minutes. Ask your provider about the best way to breathe. Talk to your healthcare provider about your ability to cope in your normal environment. ?? Pulmonary rehabilitation ??? Pulmonary rehab can help you feel better. Programs that are based in the community or at home work as well as those based in a hospital as long as they are held as often and are at the same intensity. Standard pulmonary rehab programs based at home help with breathing problems in people with COPD. Traditional supervised pulmonary rehab is still the best choice for people with COPD. These programs include exercise, breathing methods, information about COPD, counseling, and help for smokers. ??? Ask??your provider or your local hospital about programs in your area. Also talk with your healthcare provider about a self-management program to help control your symptoms. ?? When to call your healthcare provider Call your??provider right away if you have: ??? More mucus ??? Yellow, green, bloody, or smelly mucus ??? Fever of 100.4??F (38??C) or higher, or as directed by your healthcare provider ??? Chills ??? Swollen ankles ??? Increased cough ?? Call 911 Call 911 if you have: ??? Shortness of breath, wheezing, or trouble breathing that gets worse or doesn't get better with treatment ??? Tightness in your chest that does not go away with your normal medicines, or as directed by your healthcare provider ??? A new irregular heartbeat or feeling that your heart is racing ??? Trouble talking ??? Feeling lightheaded or dizzy ??? Feeling of doom ??? Skin turning blue, moreira, or purple ?? Last Reviewed Date: 2022 ?? [id number] [employer]. All rights reserved. This information is not intended as a substitute for professional medical care. Always follow your healthcare professional's instructions. ?? Patient Care team information Care Team Personnel Name: Herminia Parker RN Position: S RN Member Role: Primary Care Nurse Name: Belgica Mckeon RN Position: [facility] RN Member Role: Primary Care Nurse Name: Morgan Abbott MD Position: [facility] Renal MD Member Role: Lifetime Consulting Physician Address: Address: [address] [place] [address], [address] [place] [address]- Name: Bernice Molina RN Position: [facility] RN Member Role: Primary Care Nurse Name: Graciela Nunez MD Position: [facility] Physician - Primary Care Member Role: PCP Address: Address: [address] [place] [id number]- Name: Maryam Camara RN Position: [facility] RN Member Role: Primary Care Nurse Name: Josemanuel Hawkins RN Position: [facility] RN Member Role: Primary Care Nurse Name: Milana Garland RN Position: [facility] RN Member Role: Primary Care Nurse Name: Mckay Esquivel MD Position: [facility] Renal MD Member Role: Lifetime Consulting Physician Address: Address: [address] [place] [address], [address] [place] [address]- Name: Rylie Francois RN Position: [facility] RN Member Role: Primary Care Nurse Name: Doris Wells RN Position: [facility] RN Member Role: Primary Care Nurse Name: Elizabeth Ferris RN Position: [facility] RN Member Role: Primary Care Nurse Name: Alyssa Johnson RN Position: [facility] RN Member Role: Primary Care Nurse Name: Anabela Beavers Position: [facility] RN Member Role: Primary Care Nurse Name: Tracey Chavez Position: S RN Member Role: Primary Care Nurse Name: Sandy Alba RN Position: [facility] RN Member Role: Primary Care Nurse Name: Jose Sebastian RN Position: [facility] RN Member Role: Primary Care Nurse Name: Angelica Montemayor RN Position: [facility] RN Member Role: Primary Care Nurse Name: Paty Ventura RN Position: [facility] RN Member Role: Primary Care Nurse Name: Ninfa Soto RN Position: [facility] RN Member Role: Primary Care Nurse Name: Romeo Reid MD Position: [facility] Renal MD Member Role: Lifetime Consulting Physician Address: Address: [address] [facility] [address] [facility] [place] [address]- [place] Name: Olga Valladares RN Position: [facility] RN Member Role: Primary Care Nurse Name: Karyn Quezada RN Position: S RN Member Role: Primary Care Nurse Name: Ruby Alexandre RN Position: [facility] RN Member Role: Primary Care Nurse Address: Address: [address] [place] [address]- [place] Name: Celso Lawson MD Position: [facility] Renal MD Member Role: Lifetime Consulting Physician Address: Address: [address] [facility] [place] [address]- [place] Name: Alyssa Camacho RN Position: [facility] RN Member Role: Primary Care Nurse Name: Keely Pascal RN Position: [facility] RN Member Role: Primary Care Nurse Name: Chloe Fisher LPN Position: [facility] RN Member Role: Primary Care Nurse Name: Donna Fleming RN Position: [facility] RN Member Role: Primary Care Nurse Name: Naomi RAINEY Attending Position: [facility] ED Medicine MD Name: Veronica Chi Position: [facility] ED TA [facility] Member Role: Extrusion Supervisor Name: Barby Donahue Position: [facility] ED OA Charge Member Role: ED Mobile Application Tester Name: Renee Sosa RN Position: [facility] ED RN W/OE and Tasks Member Role: Patient Care Provider Name: Gris Molina Position: [facility] Associate Professional Member Role: ED Physician Mobile Application Tester Address: Address: [address] [place] [address] [place] [address]- Care Team Related Persons Name: LAZARUS OSBORNE Address: [place] [address] Name: KAVON NICOLE Address: [address] [place] [address] Name: CINDY NICOLE Name: PT, STATES NONE
--- OUTSIDE RECORDS SUMMARY | 2023-08-21 08:35 | XMS_ITS | Continuity of Care Document ---
Author Name Unknown Organization [facility] Address [address] [place] [address]- Care Team Providers Care Machine Bander And Cellophaner Helper Name Role Phone Gracilea Nunez MD Primary Care Physician Encounter [facility] Date(s): 05/06/23 - 06/05/23 [facility] [address] [place], [place] [address] Allergies, Adverse Reactions, Alerts Substance Reaction [...] 23-valent vaccine 6 07/31/10 Recorded 1Result Comment: [id number] given w/out incident 2Location History: [place], [place] 3Admin Note: done @ dr jones office 4Location History: [facility] 5Location History: [facility] 6Location History: [facility] Medications albuterol-ipratropium 3 mg-0.5 mg/3 ml [...] 05/25/23 15:31:00 EDT, Route to Pharmacy Electronically, [facility]/pharmacy #[id number], Partial fill upon patient request if the [...] A DAY NEEDED FOR CONSTIPATION. FILLED AT [facility] Start Date: 03/18/23 Status: Ordered folic acid 1 mg oral tablet 1 mg, 1, tablet, By Mouth, Daily, # 30 tablet, Refills 11, Tot. Refills 11, Maintenance, 12/03/22 9:01:00 EST, Route to Pharmacy Electronically, [facility]/pharmacy #[id number], 170, cm, 02/04/22 11:19:00 EDT, Height, 44.1, kg, 12/20/21 16:05:00 EST, Dry Weight Start Date: 12/03/22 Status: Ordered gabapentin 300 mg oral capsule 2, capsule, By Mouth, 3 times a day, # 180 capsule, Refills 5, Tot. Refills 5, Maintenance, 08/13/22 13:03:00 EDT, Route to Pharmacy Electronically, [facility]/pharmacy #[id number], 170, cm, 02/04/22 11:19:00 EDT, Height, 44.1, kg, 12/20/21 16:05:00 EST, Dry Weight Start Date: 08/13/22 Status: Ordered hydrOXYzine hydrochloride 10 mg oral tablet 3 tablet = 30 mg, By Mouth, 3 times a day, PRN NEEDED FOR ANXIETY, # 270 tablet, 3 Refills, Maintenance, 03/01/23 12:03:00 EDT, [facility]/pharmacy #[id number], 170, cm, 02/04/22 11:19:00 EDT, Height, [...] 3 Refills, Maintenance, 12/16/22 9:12:00 EST, Capsule, [facility]/pharmacy #[id number], Partial fill upon patient request if [...] Care team information Care Team Personnel Name: Morgan Abbott MD [facility] Renal MD Member Role: Lifetime Consulting Physician Address: Address: [address] [place] [address], [address] Name: Graciela Nunez MD [facility] Physician - Primary Care Member Role: PCP Address: Address: [address] [place] [address] Name: Maryam Camara RN Position[facility] RN Member Role: Primary Care Nurse Name: Josemanuel Hawkins RN Position: S RN Member Role: Primary Care Nurse Name: Rylie Francois RN Position: S RN Member Role: Primary Care Nurse Name: Luisa Storey RN Position: S RN Member Role: Primary Care Nurse Name: Anabela Beavers Position: S RN Member Role: Primary Care Nurse Name: Tracey Chavez Position: S RN Member Role: Primary Care Nurse Name: Angelica Montemayor RN Position: S RN Member Role: Primary Care Nurse Name: Paty Ventura RN Position: S RN Member Role: Primary Care Nurse Name: Ninfa Soto RN Position: S RN Member Role: Primary Care Nurse Name: Romeo Reid MD [facility] Renal MD Member Role: Lifetime Consulting Physician Address: Address: [address] [place] [address] [address] [facility] [address] Name: Olga Valladares RN Position: S RN Member Role: Primary Care Nurse Name: Ruby Alexandre RN Position: S RN Member Role: Primary Care Nurse Address: Address: [address] [place] [address]- Name: Celso Lawson MD [facility] Renal MD Member Role: Lifetime Consulting Physician Address: Address: [address] [place] [address] [facility] [place] [address]- Name: Alyssa Camacho RN Position: S RN Member Role: Primary Care Nurse Name: Keely Pascal RN Position: S RN Member Role: Primary Care Nurse Name: Chloe Fisher LPN Position: S RN Member Role: Primary Care Nurse Care Team Related Persons Name: LAZARUS OSBORNE Address: [place] [address] Name: KAVON NICOLE Address: [address] [place] [address] Name: PT, [facility] NONE
--- OUTSIDE RECORDS SUMMARY | 2023-08-21 08:35 | XMS_ITS | Continuity of Care Document ---
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 Name Role Phone Graciela Nunez MD Primary Care Physician [phone] [place] [facility] [place] 12/05/21 - 01/05/[address] [address] Attending Physician: Graciela Nunez MD Admitting Physician: Graciela Nunez MD Referring Physician: Graciela Nunez MD Allergies, Adverse Reactions, [...] 23-valent vaccine 6 07/31/10 Recorded 1Result Comment: [id number] given w/out incident 2Location History: [place], [place] 3Admin Note: done @ dr jones office 4Location History: [facility] 5Location History: [facility] 6Location History: [facility] Medications aspirin 81 mg oral delayed [...] 10/22/21 15:09:00 EST, Route to Pharmacy Electronically, [facility]#[id number], Partial fill upon patient request if the pr... Start Date: 10/22/21 Status: Ordered diltiazem 180 mg/24 hours oral capsule, extended release 180 mg, 1, capsule, By Mouth, Daily, # 30 capsule, Refills 0, Tot. Refills 0, Maintenance, 11/06/2209:09:00 EST, Route to Pharmacy Electronically, [facility] #[id number], Partial fill upon patient request if the prescription is for a schedule II... Start Date: 11/06/21 Status: Ordered Flonase 50 mcg/inh nasal spray 1 sprays, Nares, Both, Daily in AM, # 16 Gm, 4 Refills, Maintenance, 12/03/21 12:34:00 EST, [place], [facility] #[id number], Partial fill upon patient request if the prescription is for a scheduleII opioid drug., 1 sprays Nares, Both Daily in AM,... Start Date: 12/03/21 Status: Ordered folic acid 1 mg oral tablet 1 mg, 1, tablet, By Mouth, Daily, # 30 tablet, Refills 5, Tot. Refills 5, Maintenance, 01/31/21 16:35:00 EDT, Route to Pharmacy Electronically, [facility] #[id number], 170, cm, 10/02/20 10:06:00EST, Height, 56.3, kg, [...] 08/26/21 10:50:00 EDT, Route to Pharmacy Electronically, [facility] #[id number], 162.56, cm, 08/22/21 2:36:00 EDT, Height, 52.65, kg, 08/22/21 2:36:00 EDT... Start Date: 08/26/21 Status: Ordered lactulose 10 gm/15 ml oral syrup 15 mL = 10 Gm, By Mouth, Every 72 hours, PRN as needed for constipation, # 300 mL, 5 Refills, Maintenance, 01/05/22 10:50:00 EST, Syrup, [facility] #[id number], Partial fill upon patient requestif the prescription [...] Acute 01/10/22 10:26:00EST, 12/17/21 10:18:00 EST, Suspension, [facility] #[id number], Partial fill upon patient request if the prescription is for a schedule II opioid... Start Date: 12/17/21 Stop Date: 01/10/22 Status: Ordered nicotine 21 mg/24 hr transdermal film, extended release 1 patch, Topically, Daily, for 6 week(s), # 42 patch, 0 Refills, Acute 02/06/22 16:15:00 EDT, 12/26/21 16:15:00 EST, Patch, [facility] #[id number], Partial fill upon patient request if the [...] prescription is... Start Date: 12/20/21 Status: Ordered nystatin 296878 u/ml oral suspension 5 mL = 500,000 units, By Mouth, 4 times a day, for 7 days, swish and swallow, # 140 mL, 0 Refills, Acute 01/12/22 11:10:00 EDT, 01/05/22 11:10:00 EST, Suspension, [facility] #[id number], Partialfill upon patient request if the prescription is fo... Start Date: 01/05/22 Stop Date: 01/12/22 Status: Ordered omeprazole 20 mg oral enteric [...] 0 Refills, Maintenance, 12/22/21 14:25:00 EST, Tablet, [facility] #[id number], Partial fill upon patient requ... Start Date: 12/22/21 Stop Date: 12/25/21 Status: Ordered predniSONE 10 mg oral tablet See Instructions, 4 tabs x 3 days, 3 tabs x 3 days, 2 tabs x 3 days, 1 tab x 3 days, # 30 tablet, 0Refills, Acute 02/07/22 11:15:00 EDT, 01/05/22 11:08:00 EST, Tablet, [facility] #[id number], Partial fill upon patient request if the [...] 10/22/21 15:09:00 EST, Route to Pharmacy Electronically, [facility] #[id number] Tablet, Partial fill upon patient request... Start Date: 10/22/21 Status: Ordered sertraline 25 mg oral tablet 1 tablet = 25 mg, By Mouth, Daily, # 30 tablet, 5 Refills, Maintenance, 01/05/22 11:02:00 EST, Tablet, [facility] #[id number], Partial fill upon patient request if the prescription is for a schedule II opioid drug., 170, cm, 01/05/22 10:40:00 EST... Start Date: 01/05/22 Status: Ordered Spiriva HandiHaler 18 mcg Inhalation [...] Refills, Maintenance, 02/26/21 15:47:00 EDT, ER Tablet, [facility] #[id number], Partial fill upon patient requestif the prescription is for a schedule II opioid ivonne... Start Date: 02/26/21 Status: Ordered Ventolin HFA 108 mcg/inh inhalation aerosol with adapter 2 puffs, Inhalation, 4 times a day, PRN for wheezing, # 1 each, 0 Refills, Maintenance, 10/02/20 10:55:00 EST, Aerosol, [facility]/pharmacy #[id number], 170, cm, 10/02/20 10:06:00 EST, Height, 56.3, kg, 11/24/19 22:58:00 EST, Dry Weight Start Date: 10/02/20 Status: Ordered Vitamin D3 1000 intl units oral capsule 1 capsule = 25 mcg, By Mouth, Daily, # 30 capsule, 11 Refills, Maintenance, 12/02/21 10:55:00 EST, Capsule, [facility] #[id number], Partial fill upon patient request if the [...]
[2023-08-21 08:36] LABS: Glucose, Whole Blood 197 mg/dL (60-115)
--- OUTSIDE RECORDS SUMMARY | 2023-08-21 08:36 | XMS_ITS | Continuity of Care Document ---
Author Name Unknown Organization [facility] Address [address] [place] [address]- Care Team Providers Care Brand Manager Name Role Phone Graciela Nunez MD Primary Care Physician Encounter [facility] Date(s): 07/01/23 - 07/31/23 [facility] [address] [place], [place] [address] Allergies, Adverse Reactions, Alerts Substance Reaction [...] 23-valent vaccine 6 07/31/10 Recorded 1Result Comment: [id number] given w/out incident 2Location History: [place], [place] 3Admin Note: done @ dr jones office 4Location History: [facility] 5Location History: [facility] 6Location History: [facility] Medications acetaminophen 325 mg oral tablet [...] Mouth, Daily Start Date: 12/03/22 Status: Ordered baclofen 10 mg oral tablet 10 mg, 1, tablet, By Mouth, 2 times a day, PRN, # 28 tablet, Refills 2, Tot. Refills 2, Maintenance, Pain , Moderate, 05/25/23 15:31:00 EDT, Route to Pharmacy Electronically, [facility]/pharmacy #[id number], Partial fill upon patient request if the [...] 12/03/22 9:01:00 EST, Route to Pharmacy Electronically, [facility]/pharmacy #[id number], 170, cm, 02/04/22 11:19:00 EDT, Height, 44.1, kg, 12/20/21 16:05:00 EST, Dry Weight Start Date: 12/03/22 Status: Ordered gabapentin 300 mg oral capsule 2, capsule, By Mouth, 3 times a day, # 180 capsule, Refills 5, Tot. Refills 5, Maintenance, 08/13/22 13:03:00 EDT, Route to Pharmacy Electronically, [facility]/pharmacy #[id number], 170, cm, 02/04/22 11:19:00 EDT, Height, 44.1, kg, 12/20/21 16:05:00 EST, Dry Weight Start Date: 08/13/22 Status: Ordered hydrOXYzine hydrochloride 10 mg oral tablet 3 tablet = 30 mg, By Mouth, 3 times a day, PRN NEEDED FOR ANXIETY, # 270 tablet, 3 Refills, Maintenance, 03/01/23 12:03:00 EDT, [facility]/pharmacy #[id number], 170, cm, 02/04/22 11:19:00 EDT, Height, [...] opioid drug. Start Date: 07/20/23 Status: Ordered Metoprolol Succinate ER 25 mg [...] 3 Refills, Maintenance, 12/16/22 9:12:00 EST, Capsule, [facility]/pharmacy #[id number], Partial fill upon patient request if [...] 30 capsule, 0 Refills, Maintenance, 06/24/23 19:50:00 EDT,[facility]/pharmacy #[id number], Partial fill upon patient request if [...] tablet, 0 Refills, Maintenance, 06/23/23 17:30:00 EDT, [facility]/pharmacy #[id number], 170, cm, 04/19/23 7:05:00 EDT, Height, 45.2, kg,... Start Date: 06/23/23 Status: Ordered Ventolin HFA 108 mcg/inh inhalation aerosol with adapter 2 puffs, Inhalation, 4 times a day, PRN for wheezing, # 1 each, 0 Refills, Maintenance, 06/24/23 19:49:00 EDT, Aerosol, [facility]/pharmacy #[id number], 170, cm, 04/19/23 7:05:00 EDT, Height, 45.2, kg, 05/11/23 2:35:00 EDT, Dry Weight Start Date: 06/24/23 Status: Ordered Vitamin D3 1000 intl units oral capsule 1 capsule = 25 mcg, By Mouth, Daily, # 30 capsule, 11 Refills, Maintenance, 12/03/22 9:00:00 EST, Capsule, [facility]/pharmacy #[id number], Partial fill upon patient request if [...] Team Personnel Name: Herminia Parker RN Position: [facility] RN Member Role: Primary Care Nurse Name: Belgica Mckeon RN Position: [facility] RN Member Role: Primary Care Nurse Name: Morgan Abbott MD Position: [facility] Renal MD Member Role: Lifetime Consulting Physician Address: Address: [address] [place] [address] Name: Bernice Molina RN Position: [facility] RN Member Role: Primary Care Nurse Name: Graciela Nunez MD Position: [facility] Physician - Primary Care Member Role: PCP Address: Address: [address] [place] [address]- Name: Maryam Camara RN Position: [facility] RN Member Role: Primary Care Nurse Name: Josemanuel Hawkins RN Position: [facility] RN Member Role: Primary Care Nurse Name: Milana Garland RN Position: [facility] RN Member Role: Primary Care Nurse Name: Mckay Esquivel MD Position: [facility] Renal MD Member Role: Lifetime Consulting Physician Address: Address: [address] [place] [address], [address] Name: Rylie Francois RN Position: [facility] RN Member Role: Primary Care Nurse Name: Luisa Storey RN Position: [facility] RN Member Role: Primary Care Nurse Name: Elizabeth Ferris RN Position: [facility] RN Member Role: Primary Care Nurse Name: Alyssa Johnson RN Position: S RN Member Role: Primary Care Nurse Name: Anabela Beavers Position: S RN Member Role: Primary Care Nurse Name: Tracey Chavez Position: S RN Member Role: Primary Care Nurse Name: Sandy Alba RN Position: S RN Member Role: Primary Care Nurse Name: Jose Sebastian RN Position: S RN Member Role: Primary Care Nurse Name: Angelica Montemayor RN Position: S RN Member Role: Primary Care Nurse Name: Paty Ventura RN Position: [facility] RN Member Role: Primary Care Nurse Name: Ninfa Soto RN Position: [facility] RN Member Role: Primary Care Nurse Name: Romeo Reid MD Position: [facility] Renal MD Member Role: Lifetime Consulting Physician Address: Address: [address] [place] [address] [facility], [address] Name: Olga Valladares RN Position: [facility] RN Member Role: Primary Care Nurse Name: Karyn Quezada RN Position: [facility] RN Member Role: Primary Care Nurse Name: Ruby Alexandre RN Position: [facility] RN Member Role: Primary Care Nurse Address: Address: [address] [place] [address]- Name: Celso Lawson MD Position: [facility] Renal MD Member Role: Lifetime Consulting Physician Address: Address: [address] [place] [address] [facility] [address] Name: Alyssa Camacho RN Position: S RN Member Role: Primary Care Nurse Name: Keely Pascal RN Position: S RN Member Role: Primary Care Nurse Name: Chloe Fisher LPN Position: S RN Member Role: Primary Care Nurse Care Team Related Persons Name: LAZARUS OSBORNE Address: [place] [address] Name: KAVON NICOLE Address: [address] [place] [address] Name: PT, STATES NONE
--- OUTSIDE RECORDS SUMMARY | 2023-08-21 08:36 | XMS_ITS | Continuity of Care Document ---
Author Name Unknown Organization [facility] Address [address] [place] [address]- Care Team Providers Care Surgical Coordinator Name Role Phone Graciela Nunez MD Primary Care Physician [phone] Encounter [facility] Date(s): 03/19/22 - 04/18/22 [facility] [address] [place], [place] [address] Allergies, Adverse Reactions, Alerts Substance Reaction [...] 23-valent vaccine 6 07/31/10 Recorded 1Result Comment: [id number] given w/out incident 2Location History: [place], [place] 3Admin Note: done @ dr jones office 4Location History: [facility] 5Location History: [facility] 6Location History: [facility] Medications aspirin 81 mg [...] oral tablet 1 tablet, By Mouth, Daily, # 90 tablet, 3 Refills, Maintenance, 04/09/22 9:54:00 EDT, Tablet, [facility] #[id number], Partial fill upon patient request if the prescription is for a schedule II opioid drug., 1 tablet By Mouth Daily, 170, cm, 02/04... Start Date: 04/09/22 Status: Ordered busPIRone 5 mg oral tablet 5 mg, 1, tablet, By Mouth, 3 times a day, # 90 tablet, Refills 4, Tot. Refills 4, Maintenance, 04/09/22 9:54:00 EDT, Route to Pharmacy Electronically, [facility] #[id number], change in dosage, 170, cm, 02/04/22 11:19:00 EDT, Height, 44.1, kg, ... Start Date: 04/09/22 Status: Ordered calcium (as carbonate)-vitamin D 500 mg-400 intl units oral tablet 1 tablet, By Mouth, 2 times a day, calcium 500/vitamin d 400 iu twice daily, # 60 tablet, 6 Refills, Maintenance, 02/11/22 10:15:00 EDT, Tablet, [facility] #[id number], Partial fill upon patientrequest if the prescription is for a schedule II op... Start Date: 02/11/22 Status: Ordered Colace sodium 100 mg oral capsule 100 mg, 1, capsule, By Mouth, 2 times a day, PRN, # 60 capsule, Refills 5, Tot. Refills 5, Maintenance, for constipation, 02/04/22 11:08:00 EDT, Route to Pharmacy Electronically, [facility]#[id number], prefers gel formulation, 170, cm, 02/04/22... Start Date: 02/04/22 Status: Ordered diltiazem 180 mg/24 hours oral capsule, extended release 180 mg, 1, capsule, By Mouth, Daily, # 30 capsule, Refills 0, Tot. Refills 0, Maintenance, 11/06/2209:09:00 EST, Route to Pharmacy Electronically, [facility] #[id number], Partial fill upon patient request if the prescription is for a schedule II... Start Date: 11/06/21 Status: Ordered Flonase 50 mcg/inh nasal spray 1 sprays, Nares, Both, Daily in AM, # 16 Gm, 4 Refills, Maintenance, 12/03/21 12:34:00 EST, [place], [facility] #[id number], Partial fill upon patient request if the prescription is for a scheduleII opioid drug., 1 sprays Nares, Both Daily in AM,... Start Date: 12/03/21 Status: Ordered folic acid 1 mg oral tablet 1 mg, 1, tablet, By Mouth, Daily, # 30 tablet, Refills 11, Tot. Refills 11, Maintenance, 02/25/22 16:15:00 EDT, Route to Pharmacy Electronically, [facility] #[id number], 170, cm, 02/04/22 11:19:00 EDT, Height, 44.1, kg, 12/20/21 16:05:00 EST, Dry... Start Date: 02/25/22 Status: Ordered furosemide 40 mg oral tablet 40 mg, 1, tablet, By Mouth, Daily, Refills 0, Maintenance, 12/17/21 10:36:00 EST, Partial fill uponpatient request if the prescription is for a schedule II opioid drug. Start Date: 12/17/21 Status: Ordered gabapentin 300 mg oral capsule 2, capsule, By Mouth, 3 times a day, # 180 capsule, Refills 3, Tot. Refills 3, Maintenance, 02/09/22 15:13:00 EDT, Route to Pharmacy Electronically, [facility] #[id number], 170, cm, 02/04/22 11:19:00 EDT, Height, 44.1, kg, 12/20/21 16:05:00 EST,... Start Date: 02/09/22 Status: Ordered Hair, Skin & Nails 5 mg oral capsule 1 capsule = 5 mg, By Mouth, Daily, # 90 capsule, 3 Refills, Maintenance, 02/19/22 12:29:00 EDT, [facility] #[id number], Partial fill upon patient request if the prescription is for a schedule IIopioid drug., 1 capsule By Mouth Daily, 170, cm, 04... Start Date: 02/19/22 Status: Ordered lactulose 10 gm/15 ml oral syrup 15 mL = 10 Gm, By Mouth, Every 72 hours, PRN as needed for constipation, # 300 mL, 5 Refills, Maintenance, 03/19/22 14:45:00 EDT, Syrup, [facility] #[id number], Partial fill upon patient requestif the prescription is for a schedule II opioid ivonne... Start Date: 03/19/22 Status: Ordered LORazepam 0.5 mg oral tablet 1 tablet = 0.5 mg, By Mouth, 3 times a day, # 60 tablet, 3 Refills, Maintenance, 02/04/22 11:05:00 EDT, Tablet, [facility] #[id number], Partial fill upon patient request if the prescription is for a schedule II opioid drug., 170, cm, 02/04/22 10:... Start Date: 02/04/22 Status: Ordered Metoprolol Succinate ER 25 mg oral tablet, extended release 1 tablet = 25 mg, By Mouth, Daily Start Date: 12/17/21 Status: Ordered nitroglycerin 0.3 mg sublingual tablet [...] Daily, # 30 tablet, 5 Refills, Maintenance, 03/20/22 15:37:00 EDT, EC Tablet, 170, cm, 02/04/22 11:19:00 EDT, Height, 44.1, kg, 12/20/21 16:05:00 EST, Dry Weight Start Date: 03/20/22 Status: Ordered predniSONE 5 mg oral tablet [...] 10/22/21 15:09:00 EST, Route to Pharmacy Electronically, [facility] #[id number] Tablet, Partial fill upon patient request... Start Date: 10/22/21 Status: Ordered Spiriva HandiHaler 18 mcg Inhalation Capsule = 18 mcg, Inhalation, Daily, 0 Refills, Maintenance, 03/11/15 17:50:09 EDT Start Date: 03/11/15 Status: Ordered Symbicort 160mcg/4.5mcg Inhaler 2, puffs, Inhalation, 2 times a day, Refills 0, Maintenance, 04/16/16 9:09:16 EDT, Aerosol Start Date: 04/16/16 Status: Ordered Trelegy Ellipta 200 mcg-62.5 mcg-25 mcg/inh inhalation powder 1 puffs, Inhalation, Daily, at the same time every day, 0 Refills, Maintenance, 04/08/22 10:51:00 EDT, Powder, Partial fill upon patient request if the prescription is for a schedule II opioid drug. Start Date: 04/08/22 Status: Ordered Tylenol 8 HR Arthritis Pain 650 mg oral tablet, extended release 1 tablet = 650 mg, By Mouth, Every 8 hours, PRN Pain , Moderate, # 100 tablet, 1 Refills, Maintenance, 02/26/21 15:47:00 EDT, ER Tablet, [facility] #[id number], Partial fill upon patient requestif the prescription is for a schedule II opioid ivonne... Start Date: 02/26/21 Status: Ordered Ventolin HFA 108 mcg/inh inhalation aerosol with adapter 2 puffs, Inhalation, 4 times a day, PRN for wheezing, # 1 each, 0 Refills, Maintenance, 10/02/20 10:55:00 EST, Aerosol, [facility]/pharmacy #[id number], 170, cm, 10/02/20 10:06:00 EST, Height, 56.3, kg, 11/24/19 22:58:00 EST, Dry Weight Start Date: 10/02/20 Status: Ordered Vitamin D3 1000 intl units oral capsule 1 capsule = 25 mcg, By Mouth, Daily, # 30 capsule, 11 Refills, Maintenance, 12/02/21 10:55:00 EST, Capsule, [facility] #[id number], Partial fill upon patient request if the [...]
--- OUTSIDE RECORDS SUMMARY | 2023-08-21 08:36 | XMS_ITS | Continuity of Care Document ---
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 Name Role Phone Graciela Nunez MD Primary Care Physician Encounter [facility] Date(s): 06/29/23 - 07/29/23 [facility] [address] [place], [place] [address] Allergies, Adverse Reactions, Alerts Substance [...] 23-valent vaccine 6 07/31/10 Recorded 1Result Comment: [id number] given w/out incident 2Location History: [place], [place] 3Admin Note: done @ dr jones office 4Location History: [facility] 5Location History: [facility] 6Location History: [facility] Medications acetaminophen 325 mg oral tablet [...] 05/25/23 15:31:00 EDT, Route to Pharmacy Electronically, [facility]/pharmacy #[id number], Partial fill upon patient request if the [...] 12/03/22 9:01:00 EST, Route to Pharmacy Electronically, [facility]/pharmacy #[id number], 170, cm, 02/04/22 11:19:00 EDT, Height, 44.1, kg, 12/20/21 16:05:00 EST, Dry Weight Start Date: 12/03/22 Status: Ordered gabapentin 300 mg oral capsule 2, capsule, By Mouth, 3 times a day, # 180 capsule, Refills 5, Tot. Refills 5, Maintenance, 08/13/22 13:03:00 EDT, Route to Pharmacy Electronically, [facility]/pharmacy #[id number], 170, cm, 02/04/22 11:19:00 EDT, Height, 44.1, kg, 12/20/21 16:05:00 EST, Dry Weight Start Date: 08/13/22 Status: Ordered hydrOXYzine hydrochloride 10 mg oral tablet 3 tablet = 30 mg, By Mouth, 3 times a day, PRN NEEDED FOR ANXIETY, # 270 tablet, 3 Refills, Maintenance, 03/01/23 12:03:00 EDT, [facility]/pharmacy #[id number], 170, cm, 02/04/22 11:19:00 EDT, Height, [...] 3 Refills, Maintenance, 12/16/22 9:12:00 EST, Capsule, [facility]/pharmacy #[id number], Partial fill upon patient request if [...] 30 capsule, 0 Refills, Maintenance, 06/24/23 19:50:00 EDT,[facility]/pharmacy #[id number], Partial fill upon patient request if [...] Care Nurse Name: Belgica Mckeon RN Position: [facility] RN Member Role: Primary Care Nurse Name: Morgan Abbott MD Position: [facility] Renal MD Member Role: Lifetime Consulting Physician Address: Address: [address] [place] [address] Name: Bernice Molina RN Position: [facility] RN Member Role: Primary Care Nurse Name: Graciela Nunez MD Position: [facility] Physician - Primary Care Member Role: PCP Address: Address: [address] [place] [address]- Name: Maryam Camara RN Position: [facility] RN Member Role: Primary Care Nurse Name: Josemanuel Hawkins RN Position: [facility] RN Member Role: Primary Care Nurse Name: Milana Garland RN Position: [facility] RN Member Role: Primary Care Nurse Name: Mckay Esquivel MD Position: [facility] Renal MD Member Role: Lifetime Consulting Physician Address: Address: [address] [place] [address], [place] [address]- Name: Rylie Francois RN Position: S RN Member Role: Primary Care Nurse Name: Luisa Storey RN Position: S RN Member Role: Primary Care Nurse Name: Elizabeth Ferris RN Position: [facility] RN Member Role: Primary Care Nurse Name: Alyssa Johnson RN Position: S RN Member Role: Primary Care Nurse Name: Anabela Beavers Position: S RN Member Role: Primary Care Nurse Name: Tracey Chavez Position: S RN Member Role: Primary Care Nurse Name: Sandy Alba RN Position: S RN Member Role: Primary Care Nurse Name: Jose Sebastian RN Position: [facility] RN Member Role: Primary Care Nurse Name: Angelica Montemayor RN Position: S RN Member Role: Primary Care Nurse Name: Paty Ventura RN Position: [facility] RN Member Role: Primary Care Nurse Name: Ninfa Soto RN Position: [facility] RN Member Role: Primary Care Nurse Name: Romeo Reid MD Position: [facility] Renal MD Member Role: Lifetime Consulting Physician Address: Address: [address] [place] [address] [facility] [place], [address] Name: Olga Valladares RN Position: [facility] RN Member Role: Primary Care Nurse Name: Karyn Quezada RN Position: [facility] RN Member Role: Primary Care Nurse Name: Ruby Alexandre RN Position: [facility] RN Member Role: Primary Care Nurse Address: Address: [address] [place] [address]- Name: Celso Lawson MD Position: [facility] Renal MD Member Role: Lifetime Consulting Physician Address: Address: [address] [place] [address] [facility] [address] Name: Alyssa Camacho RN Position: S RN Member Role: Primary Care Nurse Name: Keely Pascal RN Position: S RN Member Role: Primary Care Nurse Name: Chloe Fisher LPN Position: S RN Member Role: Primary Care Nurse Care Team Related Persons Name: LAZARUS OSBORNE Address: [place] [address] Name: KAVON NICOLE Address: home [address] [place] [address] Name: PT, STATES NONE
--- OUTSIDE RECORDS SUMMARY | 2023-08-21 08:36 | XMS_ITS | Continuity of Care Document ---
Author Name Unknown Organization [facility] Address [address] [place] [address]- Care Team Providers Care Cherry Grower Name Role Phone Graciela Nunez MD Primary Care Physician Encounter [facility] Date(s): 01/09/22 - 02/08/22 [facility] [address] [place], [place] [address] Allergies, Adverse Reactions, Alerts Substance Reaction [...] 23-valent vaccine 6 07/31/10 Recorded 1Result Comment: [id number] given w/out incident 2Location History: [place], [place] 3Admin Note: done @ dr jones office 4Location History: [facility] 5Location History: [facility] 6Location History: [facility] Medications aspirin 81 mg [...] tablet 5 mg, 1, tablet, By Mouth, 2 times a day, # 60 tablet, Refills 4, Tot. Refills 4, Maintenance, 02/04/22 11:02:00 EDT, Route to Pharmacy Electronically, [facility] #[id number], change in dosage, 170, cm, 02/04/22 10:40:00 EDT, Height, 44.1, kg, 02... Start Date: 02/04/22 Status: Ordered Colace sodium 100 mg oral capsule 100 mg, 1, capsule, By Mouth, 2 times a day, PRN, # 60 capsule, Refills 5, Tot. Refills 5, Maintenance, for constipation, 02/04/22 11:08:00 EDT, Route to Pharmacy Electronically, [facility]#[id number], prefers gel formulation, 170, cm, 02/04/22... Start Date: 02/04/22 Status: Ordered diltiazem 180 mg/24 hours oral capsule, extended release 180 mg, 1, capsule, By Mouth, Daily, # 30 capsule, Refills 0, Tot. Refills 0, Maintenance, 11/06/2209:09:00 EST, Route to Pharmacy Electronically, [facility] #[id number], Partial fill upon patient request if the prescription is for a schedule II... Start Date: 11/06/21 Status: Ordered doxycycline monohydrate 100 mg oral tablet 1 tablet = 100 mg, By Mouth, 2 times a day, for 7 days, # 14 tablet, 0 Refills, Acute 02/11/22 11:15:00 EDT, 02/04/22 11:15:00 EDT, Tablet, [facility] #[id number], Partial fill upon patient request if the prescription is for a schedule II opioid... Start Date: 02/04/22 Stop Date: 02/11/22 Status: Ordered Flonase 50 mcg/inh nasal spray 1 sprays, Nares, Both, Daily in AM, # 16 Gm, 4 Refills, Maintenance, 12/03/21 12:34:00 EST, [place], [facility] #[id number], Partial fill upon patient request if the prescription is for a scheduleII opioid drug., 1 sprays Nares, Both Daily in AM,... Start Date: 12/03/21 Status: Ordered folic acid 1 mg oral tablet 1 mg, 1, tablet, By Mouth, Daily, # 30 tablet, Refills 5, Tot. Refills 5, Maintenance, 01/31/21 16:35:00 EDT, Route to Pharmacy Electronically, [facility] #[id number], 170, cm, 10/02/20 10:06:00EST, Height, 56.3, kg, [...] 08/26/21 10:50:00 EDT, Route to Pharmacy Electronically, [facility] #[id number], 162.56, cm, 08/22/21 2:36:00 EDT, Height, 52.65, kg, 08/22/21 2:36:00 EDT... Start Date: 08/26/21 Status: Ordered lactulose 10 gm/15 ml oral syrup 15 mL = 10 Gm, By Mouth, Every 72 hours, PRN as needed for constipation, # 300 mL, 5 Refills, Maintenance, 01/05/22 10:50:00 EST, Syrup, [facility] #[id number], Partial fill upon patient requestif the prescription is for a schedule II opioid ivonne... Start Date: 01/05/22 Status: Ordered LORazepam 0.5 mg oral tablet 1 tablet = 0.5 mg, By Mouth, 3 times a day, # 60 tablet, 3 Refills, Maintenance, 02/04/22 11:05:00 EDT, Tablet, [facility] #[id number], Partial fill upon patient request if the [...] Daily, # 30 tablet, 0 Refills, Maintenance, 02/06/22 15:17:00 EDT, EC Tablet, 170, cm, 02/04/22 11:19:00 EDT, Height, 44.1, kg, 12/20/21 16:05:00 EST, Dry Weight Start Date: 02/06/22 Stop Date: 02/20/22 Status: Ordered predniSONE 10 mg oral tablet See Instructions, 4 tabs x 3 days, 3 tabs x 3 days, 2 tabs x 3 days, 1 tab x 3 days, # 30 tablet, 0Refills, Acute 03/07/22 11:16:00 EDT, 02/04/22 11:16:00 EDT, Tablet, [facility] #[id number], Partial fill upon patient request if the prescription... Start Date: 02/04/22 Stop Date: 03/07/22 Status: Ordered predniSONE 5 mg oral tablet [...] 10/22/21 15:09:00 EST, Route to Pharmacy Electronically, [facility] #[id number] Tablet, Partial fill upon patient request... Start [...] Refills, Maintenance, 02/26/21 15:47:00 EDT, ER Tablet, [facility] #[id number], Partial fill upon patient requestif the prescription is for a schedule II opioid ivonne... Start Date: 02/26/21 Status: Ordered Ventolin HFA 108 mcg/inh inhalation aerosol with adapter 2 puffs, Inhalation, 4 times a day, PRN for wheezing, # 1 each, 0 Refills, Maintenance, 10/02/20 10:55:00 EST, Aerosol, [facility]/pharmacy #[id number], 170, cm, 10/02/20 10:06:00 EST, Height, 56.3, kg, 11/24/19 22:58:00 EST, Dry Weight Start Date: 10/02/20 Status: Ordered Vitamin D3 1000 intl units oral capsule 1 capsule = 25 mcg, By Mouth, Daily, # 30 capsule, 11 Refills, Maintenance, 12/02/21 10:55:00 EST, Capsule, [facility] #[id number], Partial fill upon patient request if the [...]
--- OUTSIDE RECORDS SUMMARY | 2023-08-21 08:36 | XMS_ITS | Continuity of Care Document ---
Author Name Unknown Organization [facility] Address [address] [place] [address]- Care Team Providers Care Multimedia Authoring Specialist Name Role Phone Graciela Nunez MD Primary Care Physician Encounter [facility] Date(s): 08/27/21 - 09/26/[address] [facility] [place] [facility] [address] [place], [place] [address] Allergies, Adverse Reactions, Alerts Substance Reaction Severity Status codeine Rash Nausea Moderate Active sulfADIAZINE Rash Moderate Active morphine respiratory depression Activ e Immunizations Given and Recorded Vaccine Date Status Refusal Reason SARS-CoV-2 (COVID-19) mRNA BNT-162b2 vac 01/28/21 Recorded SARS-CoV-2 (COVID-19) mRNA BNT-162b2 vac 01/07/21 Recorded influenza virus vaccine, inactivated 1 10/20/17 Re corded influenza virus vaccine, inactivated 2 09/19/15 Gi ike influenza virus vaccine, inactivated 3 10/29/11 Re corded tetanus/diphtheria/pertussis, acel(Tdap) 4 04/19/12 Recorded pneumococcal 23-valent vaccine 5 07/31/10 Recorded 1Location History: [place], [place] 2Admin Note: done @ dr jones office 3Location History: [facility] 4Location History: [facility] 5Location History: [facility] Medications alendronate 70 mg oral tablet 0 Refills, Maintenance, 07/13/19 10:24:47 EDT Start Date: 07/13/19 Status: Ordered Bed Wedge Bed Wedge, See Instructions, # 1 each, Refills 0, Tot. Refills 0, Maintenance, IDC 10: J44.1, J43.9Length of need: life time Hgt: 5' 7 Wgt 125 Lbs, 02/24/20 14:30:00 EST, Compound Start Date: 12/25/19 Status: Ordered CeleBREX 100 mg oral capsule 2 capsule = 200 mg, By Mouth, 2 times a day, PRN pain, do not take at the same time as naproxen, # 56 capsule, 0 Refills, Maintenance, 09/01/21 15:19:00 EDT, Capsule, [facility] #[id number], Partial fill upon patient request if the prescription i... Start Date: 09/01/21 Stop Date: 09/15/21 Status: Ordered duloxetine 30 mg oral enteric coated capsule 1 capsule = 30 mg, By Mouth, Daily, do not crush or chew, # 30 capsule, 3 Refills, Maintenance, 09/11/21 12:04:00 EST, CR Capsule, [facility] #[id number], Partial fill upon patient request if the prescription is for a schedule II opioid drug., 17... Start Date: 09/11/21 Status: Ordered Elbow Protector Pads Elbow Protector Pads, See Instructions, # 2 each, Refills 0, Tot. Refills 0, Maintenance, please dispense 2 elbow protector pads (1 left and 1 right) use daily for osteoporosis ICD-10: M81.0 HT: 170 CM WT: 51.5 KG lifetime use, 09/22/21 14:13:... Start Date: 09/22/21 Status: Ordered folic acid 1 mg oral tablet 1 mg, 1, tablet, By Mouth, Daily, # 30 tablet, Refills 5, Tot. Refills 5, Maintenance, 01/31/21 16:35:00 EDT, Route to Pharmacy Electronically, [facility] #[id number], 170, cm, 10/02/20 10:06:00EST, Height, 56.3, kg, 11/24/19 22:58:00 EST, Dry W... Start Date: 01/31/21 Status: Ordered furosemide 20 mg oral tablet 1, tablet, By Mouth, Daily, PRN, # 90 tablet, Refills 0, Tot. Refills 0, Maintenance, NEEDED FORLEG SWELLING, 04/19/20 15:50:00 EDT, Route to Pharmacy Electronically, [facility] #[id number],170, cm, 12/13/19 13:51:00 EST, Height, 56.3, kg, 0... Start Date: 04/19/20 Status: Ordered gabapentin 300 mg oral capsule 2, capsule, By Mouth, 3 times a day, # 180 capsule, Refills 1, Tot. Refills 1, Maintenance, 08/26/21 10:50:00 EDT, Route to Pharmacy Electronically, [facility] #[id number], 162.56, cm, 08/22/21 2:36:00 EDT, Height, 52.65, kg, 08/22/21 2:36:00 EDT... Start Date: 08/26/21 Status: Ordered Home Blood Pressure Monitor See Instructions, # 1 Unknown, Maintenance, DX: Bradycardia, R00.1 low heart rate USE DAILY LIFETIME USE HEIGHT 170CM WEIGHT 56KG, 12/13/19 13:56:00 EST, Compound Start Date: 12/13/19 Status: Ordered Lift Chair See Instructions, # 1 each, Maintenance, FOR LIFE Dx: compression fracture height: 162.56 cm weight: 52.65 kg, 08/29/21 9:37:00 EDT, Supply Start Date: 08/29/21 Status: Ordered LORazepam 0.5 mg oral tablet 1 tablet = 0.5 mg, By Mouth, 2 times a day, PRN as needed for anxiety, # 28 tablet, 0 Refills, Maintenance, 09/10/21 16:04:00 EST, [facility] #[id number], 170, cm, 08/30/21 17:40:00 EDT, Height,51.5, kg, 08/30/21 17:40:00 EDT, Dry Weight Start Date: 09/10/21 Status: Ordered Metoprolol Succinate ER 25 mg oral tablet, extended release 1 tablet = 25 mg, By Mouth, Daily, # 90 tablet, 1 Refills, Maintenance, 01/29/20 10:50:00 EDT, XL Tablet, [facility] #[id number], 170, cm, 12/13/19 13:51:00 EST, Height, 56.3, kg, 11/24/19 22:58:00 EST, Dry Weight Start Date: 01/29/20 Status: Ordered predniSONE 10 mg oral tablet See Instructions, 4 tabs x 3 days, 3 tabs x 3 days, 2 tabs x 3 days, 1 tab x 3 days, # 30 tablet, 0Refills, Acute 10/11/21 12:03:00 EST, 09/11/21 12:03:00 EST, Tablet, [facility] #[id number], Partial fill upon patient request if the prescription... Start Date: 09/11/21 Stop Date: 10/11/21 Status: Ordered PULSE OXIMETER PULSE OXIMETER, See Instructions, # 1 Unknown, Refills 0, Tot. Refills 0, Maintenance, DX: HYPOXIA R09.2 USE DAILY LIFETIME USE, 12/13/19 13:58:00 EST, Compound Start Date: 12/13/19 Status: Ordered Robaxin-750 750 mg oral tablet 2 tablet = 1,500 mg, By Mouth, 3 times a day, PRN Pain , Moderate, # 90 tablet, 3 Refills, Maintenance, 03/13/21 13:26:00 EDT, Tablet, [facility] #75672, 170, cm, 10/02/20 10:06:00 EST, Height, 56.3, [...] 9:09:16, Aerosol Start Date: 04/16/16 Status: Ordered Tylenol 8 HR Arthritis Pain 650 mg oral tablet, extended release 1 tablet = 650 mg, By Mouth, Every 8 hours, PRN Pain , Moderate, # 100 tablet, 1 Refills, Maintenance, 02/26/21 15:47:00 EDT, ER Tablet, [facility] #[id number], Partial fill upon patient requestif the prescription [...] 01/06/21 14:35:00 EST, Route to Pharmacy Electronically, [facility] #[id number], 170, cm, 10/02/20 10:06:00 EST, Height, 56.3, kg, 11/24/19 22:58:00 EST, Dry Weight Start Date: 01/06/21 Status: Ordered Zofran 4 mg oral tablet 1 tablet = 4 mg, By Mouth, 3 times a day, PRN nausea, # 30 tablet, 0 Refills, Maintenance, :17:00 EDT, Tablet, [facility] #[id number], 170, cm, 12/13/19 13:51:00 EST, Height, 56.3, kg, 11/24/19 22:58:00 EST, Dry Weight Start Date: 06/12/20 Stop Date: 06/22/20 Status: Ordered Problem List Condition Effective Dates Status Health Status Inform ant COPD exacerbation(Confirmed) Active Anxiety(Confirmed) Active At risk for falls(Confirmed) Active Bradycardia(Confirmed) Active Cervical radiculopathy(Confirmed) Active Thoracic compression fracture(Confirmed) Active Compression fracture of spine(Confirmed) Active Cardiac arrhythmia(Confirmed) Active Peripheral neuropathy(Confirmed) Active [...]
--- OUTSIDE RECORDS SUMMARY | 2023-08-21 08:36 | XMS_ITS | Continuity of Care Document ---
Author Name Unknown Organization [facility] Address [address] [place] [address]- Care Team Providers Care Telesales Manager Name Role Phone Graciela Nunez MD Primary Care Physician [phone] Encounter [facility] Date(s): 02/04/22 - 02/11/22 [facility] [address] [place], [place] [address] Encounter Diagnosis AF (atrial fibrillation)(Discharge Diagnosis) - 02/04/22 End stage COPD(Discharge Diagnosis) - 02/04/22 Anxiety(Discharge Diagnosis) - 02/04/22 Attending Physician: Graciela Nunez MD Allergies, Adverse [...] 23-valent vaccine 6 07/31/10 Recorded 1Result Comment: [id number] given w/out incident 2Location History: [place], [place] 3Admin Note: done @ dr jones office 4Location History: [facility] 5Location History: [facility] 6Location History: [facility] Medications aspirin 81 mg [...] 02/04/22 11:02:00 EDT, Route to Pharmacy Electronically, [facility] #[id number], change in dosage, 170, cm, 02/04/22 10:40:00 EDT, Height, 44.1, kg, 02... Start Date: 02/04/22 Status: Ordered calcium (as carbonate)-vitamin D 500 mg-400 intl units oral tablet 1 tablet, By Mouth, 2 times a day, calcium 500/vitamin d 400 iu twice daily, # 60 tablet, 6 Refills, Maintenance, 02/11/22 10:15:00 EDT, Tablet, [facility] #[id number], Partial fill upon patientrequest if the prescription is for a schedule II op... Start Date: 02/11/22 Status: Ordered Colace sodium 100 mg oral capsule 100 mg, 1, capsule, By Mouth, 2 times a day, PRN, # 60 capsule, Refills 5, Tot. Refills 5, Maintenance, for constipation, 02/04/22 11:08:00 EDT, Route to Pharmacy Electronically, [facility]#[id number], prefers gel formulation, 170, cm, 02/04/22... Start Date: 02/04/22 Status: Ordered diltiazem 180 mg/24 hours oral capsule, extended release 180 mg, 1, capsule, By Mouth, Daily, # 30 capsule, Refills 0, Tot. Refills 0, Maintenance, 11/06/2209:09:00 EST, Route to Pharmacy Electronically, [facility] #[id number], Partial fill upon patient request if the prescription is for a schedule II... Start Date: 11/06/21 Status: Ordered Flonase 50 mcg/inh nasal spray 1 sprays, Nares, Both, Daily in AM, # 16 Gm, 4 Refills, Maintenance, 12/03/21 12:34:00 EST, [place], [facility] #48394, Partial fill upon patient request if the prescription is for a scheduleII opioid drug., 1 sprays Nares, Both Daily in AM,... Start Date: 12/03/21 Status: Ordered folic acid 1 mg oral tablet 1 mg, 1, tablet, By Mouth, Daily, # 30 tablet, Refills 5, Tot. Refills 5, Maintenance, 01/31/21 16:35:00 EDT, Route to Pharmacy Electronically, [facility] #[id number], 170, cm, 10/02/20 10:06:00EST, Height, 56.3, kg, [...] 02/09/22 15:13:00 EDT, Route to Pharmacy Electronically, [facility] #[id number], 170, cm, 02/04/22 11:19:00 EDT, Height, 44.1, kg, 12/20/21 16:05:00 EST,... Start Date: 02/09/22 Status: Ordered lactulose 10 gm/15 ml oral syrup 15 mL = 10 Gm, By Mouth, Every 72 hours, PRN as needed for constipation, # 300 mL, 5 Refills, Maintenance, 01/05/22 10:50:00 EST, Syrup, [facility] #[id number], Partial fill upon patient requestif the prescription is for a schedule II opioid ivonne... Start Date: 01/05/22 Status: Ordered LORazepam 0.5 mg oral tablet 1 tablet = 0.5 mg, By Mouth, 3 times a day, # 60 tablet, 3 Refills, Maintenance, 02/04/22 11:05:00 EDT, Tablet, [facility] #[id number], Partial fill upon patient request if the [...] 03/07/22 11:16:00 EDT, 02/04/22 11:16:00 EDT, Tablet, [facility] #[id number], Partial fill upon patient request if the [...] 10/22/21 15:09:00 EST, Route to Pharmacy Electronically, [facility] #[id number] Tablet, Partial fill upon patient request... Start Date: 10/22/21 Status: Ordered Spiriva HandiHaler 18 mcg Inhalation Capsule = 18 mcg, Inhalation, Daily, 0 Refills, Maintenance, 03/11/15 17:50:09 EDT Start Date: 03/11/15 Status: Ordered Symbicort 160mcg/4.5mcg Inhaler 2, puffs, Inhalation, 2 times a day, Refills 0, Maintenance, 04/16/16 9:09:16 EDT, Aerosol Start Date: 04/16/16 Status: Ordered Tylenol 8 HR Arthritis Pain 650 mg oral tablet, extended release 1 tablet = 650 mg, By Mouth, Every 8 hours, PRN Pain , Moderate, # 100 tablet, 1 Refills, Maintenance, 02/26/21 15:47:00 EDT, ER Tablet, [facility] #[id number], Partial fill upon patient requestif the prescription is for a schedule II opioid ivonne... Start Date: 02/26/21 Status: Ordered Ventolin HFA 108 mcg/inh inhalation aerosol with adapter 2 puffs, Inhalation, 4 times a day, PRN for wheezing, # 1 each, 0 Refills, Maintenance, 10/02/20 10:55:00 EST, Aerosol, [facility]/pharmacy #[id number], 170, cm, 10/02/20 10:06:00 EST, Height, 56.3, kg, 11/24/19 22:58:00 EST, Dry Weight Start Date: 10/02/20 Status: Ordered Vitamin D3 1000 intl units oral capsule 1 capsule = 25 mcg, By Mouth, Daily, # 30 capsule, 11 Refills, Maintenance, 12/02/21 10:55:00 EST, Capsule, [facility] #[id number], Partial fill upon patient request if the [...] swelling(Confirmed) Active Abnormal TSH(Confirmed) Active Underweight(Confirmed) Active Diagnosis Diagnosis Type Effective Dates Health Status Cl inical Service Informant AF (atrial fibrillation) Discharge Diagnosis 02/04/22 End stage COPD Discharge Diagnosis 02/04/22 Anxiety Discharge Diagnosis 02/04/22 Vital Signs Most recent to oldest [Reference Range]: 1 2 Height 170 cm (02/04/22 11:19 AM) 170 cm (02/04/22 10:40 AM) Weight 45.5 kg (02/04/22 10:40 AM) Oxygen Saturation [94-100 %] 100 % (02/04/22 10:40 AM) Pulse Rate [55-90 bpm] 100 bpm *H* (02/04/22 10:40 AM) Body Mass Index [18.5-24.99] 15.74 *L* (02/04/22 10:40 AM) Blood Pressure [90-138/55-84 mm Hg] 134/ 64mm Hg (02/04/22 11:19 AM) 160/88mm Hg *H* (02/04/22 10:40 AM) Respiratory Rate [16-30 br/min] 18 br/mi n (02/04/22 10:40 AM) Temperature [96.8-100.4 DegF] 99.6 DegF (02/04/22 10:40 AM) Liters per Minute 5 L/min (02/04/22 10:40 AM) Mode of Delivery (Oxygen) Nasal cannula (02/04/22 10:40 AM) Blood pressure sites Arm, right (02/04/22 10:40 AM) Temperature Route Temporal (02/04/22 10:40 AM) Weight Obtained Via Standing scale (02/04/22 10:40 AM) Social History Social History Type Response Tobacco Other: now smoking 1 /2 pack per day. Sex
--- OUTSIDE RECORDS SUMMARY | 2023-08-21 08:36 | XMS_ITS | Continuity of Care Document ---
Author Name Unknown Organization [facility] Address [address] [place] [address]- Care Team Providers Care Warehouse Specialist Name Role Phone Graciela Nunez MD Primary Care Physician [phone] [facility] Date(s): 10/29/21 - 11/06/[address] [address]- Discharge Disposition: A-D/C Home Attending Physician: Bobby Deluna DO Admitting Physician: Cassie Bojorquez MD Referring Physician: Celso Delong MD Allergies, Adverse Reactions, Alerts Substance Reaction [...] 23-valent vaccine 6 07/31/10 Recorded 1Result Comment: [id number] given w/out incident 2Location History: [place], [place] 3Admin Note: done @ dr jones office 4Location History: [facility] 5Location History: [facility] 6Location History: [facility] Medications aspirin 81 mg oral delayed release tablet 81 mg, 1, tablet, By Mouth, Daily, # 30 tablet, Refills 0, Tot. Refills 0, Maintenance, 11/06/21 10:22:00 EST, Do Not Route, Partial fill upon patient request if the prescription is for a schedule IIopioid drug. Start Date: 11/06/21 Status: Ordered azithromycin 500 mg oral tablet TAKE 1 TABLET BY MOUTH EVERY WEDNESDAY, WEDNESDAY, WEDNESDAY OF EACH WEEK Start Date: 10/29/21 Status: Ordered cholecalciferol 1000 intl units oral capsule 1 capsule = 25 mcg, By Mouth, Daily, Maintenance, 11/03/21 11:21:00 EST, Capsule, P Start Date: 11/03/21 Status: Ordered Colace sodium 100 mg oral capsule 100 mg, 1, capsule, By Mouth, 2 times a day, PRN, # 60 capsule, Refills 1, Tot. Refills 1, Maintenance, for constipation, 10/22/21 15:09:00 EST, Route to Pharmacy Electronically, [facility][id number], Partial fill upon patient request if the pr... Start Date: 10/22/21 Status: Ordered diltiazem 180 mg/24 hours oral capsule, extended release 180 mg, CD Capsule, By Mouth, 11/06/21 9:00:00 EST Start Date: 11/06/21 Stop Date: 11/06/21 Status: Completed diltiazem 180 mg/24 hours oral capsule, extended release 180 mg, 1, capsule, By Mouth, Daily, # 30 capsule, Refills 0, Tot. Refills 0, Maintenance, 11/06/2209:09:00 EST, Route to Pharmacy Electronically, [facility] #[id number], Partial fill upon patient request if the prescription is for a schedule II... Start Date: 11/06/21 Status: Ordered duloxetine 30 mg oral enteric coated capsule 1 capsule = 30 mg, By Mouth, Daily, do not crush or chew, # 30 capsule, 3 Refills, Maintenance, 09/11/21 12:04:00 EST, CR Capsule, [facility] #[id number], Partial fill upon patient request if the prescription is for a schedule II opioid drug., 17... Start Date: 09/11/21 Status: Ordered folic acid 1 mg oral tablet 1 mg, 1, tablet, By Mouth, Daily, # 30 tablet, Refills 5, Tot. Refills 5, Maintenance, 01/31/21 16:35:00 EDT, Route to Pharmacy Electronically, [facility] #[id number], 170, cm, 10/02/20 10:06:00EST, Height, 56.3, kg, 11/24/19 22:58:00 EST, Dry W... Start Date: 01/31/21 Status: Ordered gabapentin 300 mg oral capsule 2, capsule, By Mouth, 3 times a day, # 180 capsule, Refills 1, Tot. Refills 1, Maintenance, 08/26/21 10:50:00 EDT, Route to Pharmacy Electronically, [facility] #[id number], 162.56, cm, 08/22/21 2:36:00 EDT, Height, 52.65, kg, 08/22/21 2:36:00 EDT... Start Date: 08/26/21 Status: Ordered gabapentin 300 mg oral capsule 300 mg, Capsule, By Mouth, 11/06/21 9:00:00 EST Start Date: 11/06/21 Stop Date: 11/06/21 Status: Completed LORazepam 0.5 mg oral tablet 1 tablet = 0.5 mg, By Mouth, 2 times a day, PRN as needed for anxiety, # 28 tablet, 0 Refills, Maintenance, 09/10/21 16:04:00 EST, [facility] #[id number], 170, cm, 08/30/21 17:40:00 EDT, Height,51.5, kg, 08/30/21 17:40:00 EDT, Dry Weight Start Date: 09/10/21 Status: Ordered MiraLax oral powder for reconstitution = 17 Gm, By Mouth, Daily, PRN Constipation, dissolve in water before taking, # 527 Gm, 0 Refills, Maintenance, 10/22/21 15:11:00 EST, REC Powder, [facility] #[id number], Partial fill upon patient request if the prescription is for a schedule II o... Start Date: 10/22/21 Status: Ordered predniSONE 5 mg oral tablet 1 tablet = 5 mg, By Mouth, Daily, 0 Refills, Maintenance, 11/06/21 10:25:00 EST, Tablet, Partial fill upon patient request if the prescription is for a schedule II opioid drug. Start Date: 11/06/21 Status: Ordered pregabalin 25 mg oral capsule 1 capsule = 25 mg, By Mouth, Daily, Maintenance, 11/03/21 11:20:00 EST, Capsule Start Date: 11/03/21 Status: Ordered Robaxin-750 750 mg oral tablet 2 tablet = 1,500 mg, By Mouth, 3 times a day, PRN Pain , Moderate, # 90 tablet, 3 Refills, Maintenance, 03/13/21 13:26:00 EDT, Tablet, [facility] #[id number], 170, cm, 10/02/20 10:06:00 EST, Height, 56.3, kg, 11/24/19 22:58:00 EST, Dry Weight Start Date: 03/13/21 Status: Ordered Senna 8.6 mg oral tablet 17.2 mg, 2, tablet, By Mouth, Daily at bedtime, PRN, # 100 tablet, Refills 0, Tot. Refills 0, Maintenance, for constipation, 10/22/21 15:09:00 EST, Route to Pharmacy Electronically, [email or web address] #[id number] Tablet, Partial fill upon patient request... Start [...] Refills, Maintenance, 02/26/21 15:47:00 EDT, ER Tablet, [facility] #[id number], Partial fill upon patient requestif the prescription [...] Dry Weight Start Date: 10/02/20 Status: Ordered Problem List Condition Effective Dates Status Health Status Inform ant Anxiety(Confirmed) Active At risk for falls(Confirmed) Active Bradycardia(Confirmed) Active Cervical radiculopathy(Confirmed) Active Chronic respiratory failure with hypoxia(Confirmed) Active Thoracic compression fracture(Confirmed) Active Compression fracture of spine(Confirmed) Active Peripheral neuropathy(Confirmed) Active End stage COPD(Confirmed) Active Hyperlipidemia(Confirmed) Active Pulmonary nodule(Confirmed) Active Osteoporosis(Confirmed) Active Breast pain(Confirmed) Active Raynaud's phenomenon(Confirmed) Active Leg swelling(Confirmed) Active Abnormal TSH(Confirmed) Active Underweight(Confirmed) Active Results Orders for Microbiology Reports Name Date Blood Culture 11/02/21 Blood Culture #2 11/02/21 Microbiology Reports TEST:Blood Culture, Second Order STATUS:Unauthenticated BODY SITE: SOURCE:Blood COLLECTED DATE/TIME:11/02/21 11:45 AM Blood Culture, Second Order SPECIMEN DESCRIPTION : BLOOD R HAND SPECIAL REQUESTS : NONE CULTURE : NO GROWTH 4 DAYS REPORT STATUS : PRELIMINARY REPORT TEST:Blood Culture STATUS:Unauthenticated BODY SITE: SOURCE:Blood COLLECTED DATE/TIME:11/02/21 11:40 AM Blood Culture SPECIMEN DESCRIPTION : BLOOD LEFT HAND SPECIAL REQUESTS : NONE CULTURE : NO GROWTH 4 DAYS REPORT STATUS : PRELIMINARY REPORT Radiology Reports * Exam Date Time Procedure Performing Provider Status 11/02/21 11:32 AM Abdomen AP Cailin [facility] (Verified) Notes: (Abdomen AP) Reason For Exam: abd pain and severe constipation;Distention RESULT: XR Abdomen AP XR Abdomen AP 1 view INDICATION/CLINICAL QUESTION: Reason: Distention; abd pain and severe constipation; Clinical Question(s): Perforation COMPARISON: 10/30/2021 FINDINGS: The stool burden has substantially decreased since the prior study. Distention of the colon has slightly decreased since the prior examination, however, remains distended. Air-filled, nondilated small bowel loops are now seen. There is no definite obstruction. No free air is present. Pulmonary edema and pleural effusions at the lung bases are noted. IMPRESSION: Decreasing stool burden. Persistently distended air-filled colonic loops. WSN: [id number] Ordering Physician: Marci Vences Dictated By: Maryam Ashley MD Dictated Date/Time: 11/02/21 2:05 pm Reviewed By: Maryam Ashley MD Signed By: Maryam Ashley MD Signed Date/Time: 11/02/21 2:05 pm Transcribed By: VALENTIN Transcribed Date/Time: 11/02/21 2:04 pm * Exam Date Time Procedure Performing Provider Status 11/02/21 1:51 PM Chest Portable Jose R Khan; Fred (Ve rified) Notes: (Chest Portable) Reason For Exam: Shortness of Breath RESULT: Chest Portable Examination: Portable chest performed on 11/02/2021. History: Shortness of breath. Findings: A frontal view of the chest is compared to a prior study dated 08/30/2021. Bilateral breast implants are noted. The cardiac silhouette is within normal limits for size. There has been interval development of pulmonary edema and trace pleural effusions. The osseous structures are grossly unremarkable. IMPRESSION: Pulmonary edema and pleural effusions. WSN: [id number] Ordering Physician: Marci Vences Dictated By: Maryam Ashley MD Dictated Date/Time: 11/02/21 2:03 pm Reviewed By: Maryam Ashley MD Signed By: Maryam Ashley MD Signed Date/Time: 11/02/21 2:03 pm Transcribed By: VALENTIN Transcribed Date/Time: 11/02/21 2:02 pm * Exam Date Time Procedure Performing Provider Status 10/30/21 11:07 AM Abdomen Comp Inc Dec ub and/or Erect Moe Whitney; Fred (Verified) Notes: (Abdomen Comp Inc Decub and/or Erect) Reason For Exam: Constipation RESULT: Abdomen Comp Inc Decub and/or Erect Abdomen Comp Inc Decub and/or Erect 1 view INDICATION/CLINICAL QUESTION: Constipation COMPARISON: 10/28/2021, 10/27/2021 FINDINGS: Large colonic stool retention with increased distention of the cecum, ascending, and proximal redundant transverse colon, with cecum measuring up to 12 cm in diameter and colon up to 8 cm. No evidence of small bowel dilatation. No evidence of pneumoperitoneum . Contrast-opacified urinary bladder from recent contrast-enhanced CT, with apparent sagging inferiorly of the lateral aspects of the bladder through the pelvic floor bilaterally, as seen on prior CT; however, no obturator hernias were visualized on the recent CT. Lumbar spine degenerative changes. Partially visualized bilateral breast implants. Bilateral lower lungs are suboptimally evaluated, better visualized on recent CT. 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 I have personally reviewed the images and I agree with this report. WSN: [id number] Ordering Physician: Perico Mccauley Dictated By: Hair Calvillo DO Dictated Date/Time: 10/30/21 5:14 pm Reviewed By: Jose Kat MD Signed By: Jose Kat MD Signed Date/Time: 10/30/21 5:19 pm Transcribed By: VALENTIN Transcribed Date/Time: 10/30/21 3:04 pm Vital Signs Most recent to oldest [Reference Range]: 1 2 3 Height 173 cm (11/06/21 7:58 AM) 173 cm (11/06/21 4:19 AM) 173 cm (11/05/21 11:53 PM) Weight 46.2 kg (10/29/21 3:33 PM) 49.5 kg (10/29/21 1:38 PM) 49.5 kg (10/29/21 10:53 AM) Oxygen Saturation [94-100 %] 96 % (11/06/21 7:58 AM) 96 % (11/06/21 4:19 AM) 96 % (11/05/21 11:53 PM) Pulse Rate [55-90 bpm] 112 bpm *H* (11/06/21 9:06 AM) 101 bpm *H* (11/06/21 7:58 AM) 104 bpm *H* (11/06/21 4:19 AM) Body Mass Index [18.5-24.99] 15.44 *L* (10/29/21 3:33 PM) 16.54 *L* (10/29/21 1:38 PM) 16.54 *L* (10/29/21 10:53 AM) Blood Pressure [90-138/55-84 mm Hg] 132/82mm Hg (11/06/21 9:06 AM) 132/68mm Hg (11/06/21 7:58 AM) 117/78mm Hg (11/06/21 4:19 AM) Respiratory Rate [16-30 br/min] 20 br/min (11/06/21 10:09 AM) 22 br/min (11/06/21 9:09 AM) 16 br/min (11/06/21 7:58 AM) Temperature [96.8-100.4 DegF] 98.3 DegF (11/06/21 7:58 AM) 98.1 DegF (11/06/21 4:19 AM) 98.1 DegF (11/05/21 11:53 PM) Liters per Minute 5 L/min (11/06/21 7:58 AM) 5 L/min (11/06/21 4:19 AM) 5 L/min (11/05/21 11:53 PM) Mode of Delivery (Oxygen) Nasal cannula (11/06/21 7:58 AM) Nasal cannula (11/06/21 4:19 AM) Nasal cannula (11/05/21 11:53 PM) Blood pressure sites Arm, right (11/06/21 7:58 AM) Arm, right (11/06/21 4:19 AM) Arm, right (11/05/21 11:53 PM) Temperature Route Oral (11/06/21 7:58 AM) Oral (11/06/21 4:19 AM) Oral (11/05/21 11:53 PM) Dry Weight 46.20 kg (10/29/21 3:33 PM) 49.5 kg (10/29/21 1:38 PM) 49.5 kg (10/29/21 10:53 AM) Weight Obtained Via Patient/family stated (10/28/21 6:41 PM) Dry Weight Obtained Via Patient/family stated (10/28/21 6:41 PM) Social History Social History Type Response Smoking Status Current every day maria elena penn; Tobacco use times per day: smokes about 1.5 packs per day; entered on: 04/16/16 Sex
--- OUTSIDE RECORDS SUMMARY | 2023-08-21 08:36 | XMS_ITS | Continuity of Care Document ---
Author Name Unknown Organization [facility] Address [address] [place] [address]- Care Team Providers Care Line Haul Driver Name Role Phone Graciela Nunez MD Primary Care Physician [place] [facility] [place]21 [facility] [address] [place], [place] [address] Allergies, Adverse Reactions, Alerts [...] 23-valent vaccine 6 07/31/10 Recorded 1Result Comment: [id number] given w/out incident 2Location History: [place], [place] 3Admin Note: done @ dr jones office 4Location History: [facility] 5Location History: [facility] 6Location History: [facility] Medications aspirin 81 mg oral [...] EACH WEEK Start Date: 10/29/21 Status: Ordered BEDSIDE COMMODE BEDSIDE COMMODE, See Instructions, # 1 each, Refills 0, Tot. Refills 0, Maintenance, use daily as needed for dx: osteoporosis ICD-10: M81.0 HT: 173 cm WT: 46.2 kg lifetime use, 11/10/21 14:48:00 EST,Supply Start Date: 11/10/21 Status: Ordered cholecalciferol 1000 intl units oral capsule 1 capsule = 25 mcg, By Mouth, Daily, Maintenance, 11/03/21 11:21:00 EST, Capsule, P Start Date: 11/03/21 Status: Ordered Colace sodium 100 mg oral capsule 100 mg, 1, capsule, By Mouth, 2 times a day, PRN, # 60 capsule, Refills 1, Tot. Refills 1, Maintenance, for constipation, 10/22/21 15:09:00 EST, Route to Pharmacy Electronically, [facility][id number], Partial fill upon patient request if the pr... Start Date: 10/22/21 Status: Ordered diltiazem 180 mg/24 hours oral capsule, extended release 180 mg, 1, capsule, By Mouth, Daily, # 30 capsule, Refills 0, Tot. Refills 0, Maintenance, 11/06/2209:09:00 EST, Route to Pharmacy Electronically, [facility] #[id number], Partial fill upon patient request if the prescription is for a schedule II... Start Date: 11/06/21 Status: Ordered ENSURE SUPPLEMENTS ENSURE SUPPLEMENTS, See Instructions, # 120 Unknown, Refills 11, Tot. Refills 11, Maintenance, USE FOUR TIMES DAILY LIFETIME USE DX:MALNUTRITION E46 WEIGHT 46KG HEIGHT 173CM, 11/18/21 16:36:00 EST, Supply Start Date: 11/18/21 Status: Ordered folic acid 1 mg oral tablet 1 mg, 1, tablet, By Mouth, Daily, # 30 tablet, Refills 5, Tot. Refills 5, Maintenance, 01/31/21 16:35:00 EDT, Route to Pharmacy Electronically, [facility] #[id number], 170, cm, 10/02/20 10:06:00EST, Height, 56.3, kg, 11/24/19 22:58:00 EST, Dry W... Start Date: 01/31/21 Status: Ordered FOUR-PRONG CANE FOUR-PRONG CANE, See Instructions, # 1 each, Refills 0, Tot. Refills 0, Maintenance, use daily as needed for dx: osteoporosis ICD-10: M81.0 HT: 173 cm WT: 46.2 kg lifetime use, 11/10/21 14:48:00 EST,Supply Start Date: 11/10/21 Status: Ordered gabapentin 300 mg oral capsule 2, capsule, By Mouth, 3 times a day, # 180 capsule, Refills 1, Tot. Refills 1, Maintenance, 08/26/21 10:50:00 EDT, Route to Pharmacy Electronically, [facility] #[id number], 162.56, cm, 08/22/21 2:36:00 EDT, Height, 52.65, kg, 08/22/21 2:36:00 EDT... Start Date: 08/26/21 Status: Ordered LORazepam 0.5 mg oral tablet 1 tablet = 0.5 mg, By Mouth, 2 times a day, PRN as needed for anxiety, # 28 tablet, 0 Refills, Maintenance, 11/19/21 13:26:00 EST, [facility] #[id number], 173, cm, 11/06/21 7:58:00 EST, Height, 46.2, kg, 10/29/21 15:33:00 EST, Dry Weight Start Date: 11/19/21 Status: Ordered MiraLax oral powder for reconstitution = 17 Gm, By Mouth, Daily, PRN Constipation, dissolve in water before taking, # 527 Gm, 0 Refills, Maintenance, 10/22/21 15:11:00 EST, REC Powder, [facility] #[id number], Partial fill upon patient request if the [...] EST, Capsule Start Date: 11/03/21 Status: Ordered Raised toilet seat Raised toilet seat, See Instructions, # 1 each, Refills 0, Tot. Refills 0, Maintenance, use daily dx: osteoporosis M81.0 HT; 173 cm wt: 46.2 kg lifetime need, 11/10/21 14:51:00 EST, Supply Start Date: 11/10/21 Status: Ordered Robaxin-750 750 mg oral tablet 2 tablet = 1,500 mg, By Mouth, 3 times a day, PRN Pain , Moderate, # 90 tablet, 3 Refills, Maintenance, 03/13/21 13:26:00 EDT, Tablet, [facility] #[id number], 170, cm, 10/02/20 10:06:00 EST, Height, 56.3, kg, 11/24/19 22:58:00 EST, Dry Weight Start Date: 03/13/21 Status: Ordered Senna 8.6 mg oral tablet 17.2 mg, 2, tablet, By Mouth, Daily at bedtime, PRN, # 100 tablet, Refills 0, Tot. Refills 0, Maintenance, for constipation, 10/22/21 15:09:00 EST, Route to Pharmacy Electronically, [facility] #[id number] Tablet, Partial fill upon patient request... Start Date: 10/22/21 Status: Ordered SHOWER CHAIR WITHOUT BACK SUPPORT SHOWER CHAIR WITHOUT BACK SUPPORT, See Instructions, # 1 each, Refills 0, Tot. Refills 0, Maintenance, use daily as needed for dx: osteoporosis ICD-10: M81.0 HT: 173 cm WT: 46.2 kg lifetime use, 11/10/21 14:48:00 EST, Supply Start Date: 11/10/21 Status: Ordered Spiriva HandiHaler 18 mcg Inhalation [...] Refills, Maintenance, 02/26/21 15:47:00 EDT, ER Tablet, [facility] #[id number], Partial fill upon patient requestif the prescription is for a schedule II opioid ivonne... Start Date: 02/26/21 Status: Ordered Ventolin HFA 108 mcg/inh inhalation aerosol with adapter 2 puffs, Inhalation, 4 times a day, PRN for wheezing, # 1 each, 0 Refills, Maintenance, 10/02/20 10:55:00 EST, Aerosol, [facility] #[id number], 170, cm, 10/02/20 10:06:00 EST, Height, 56.3, kg, 11/24/19 22:58:00 EST, Dry Weight Start Date: 10/02/20 Status: Ordered WEEKLY MEDICATION PILL BOX WEEKLY MEDICATION PILL BOX, See Instructions, # 1 each, Refills 0, Tot. Refills 0, Maintenance, usedaily as needed for dx: osteoporosis ICD-10: M81.0 HT: 173 cm WT: 46.2 kg lifetime use, 11/07/21 9:18:00 EST, Supply Start Date: 11/07/21 Status: Ordered Problem List Condition Effective Dates [...]
--- OUTSIDE RECORDS SUMMARY | 2023-08-21 08:36 | XMS_ITS | Continuity of Care Document ---
Author Name Unknown Organization 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 [address] [place], [place] [address] Allergies, Adverse Reactions, Alerts Substance Reaction Severity [...] 23-valent vaccine 6 07/31/10 Recorded 1Result Comment: [id number] given w/out incident 2Location History: [place], [place] 3Admin Note: done @ dr jones office 4Location History: [facility] 5Location History: [facility] 6Location History: [facility] Medications aspirin 81 mg oral delayed [...] Replace Required Details, Route to Pharmacy Electronically, [id number], 170, cm, ... Start Date: 03/26/23 Status: Ordered baclofen 10 mg oral tablet 10 mg, 1, tablet, By Mouth, 2 times a day, PRN, # 28 tablet, Refills 2, Tot. Refills 2, Maintenance, Pain , Moderate, 02/11/23 12:27:00 EDT, Route to Pharmacy Electronically, [facility]/pharmacy #[id number], Partial fill upon patient request if the prescription is... Start Date: 02/11/23 Stop Date: 03/25/23 Status: Ordered docusate sodium 100 mg oral capsule TAKE 1 CAPSULE BY MOUTH 2 TIMES A DAY NEEDED FOR CONSTIPATION. FILLED AT [facility] Start Date: 03/18/23 Status: Ordered folic acid 1 mg oral tablet 1 mg, 1, tablet, By Mouth, Daily, # 30 tablet, Refills 11, Tot. Refills 11, Maintenance, 12/03/22 9:01:00 EST, Route to Pharmacy Electronically, [facility]/pharmacy #[id number], 170, cm, 02/04/22 11:19:00 EDT, Height, 44.1, kg, 12/20/21 16:05:00 EST, Dry Weight Start Date: 12/03/22 Status: Ordered gabapentin 300 mg oral capsule 2, capsule, By Mouth, 3 times a day, # 180 capsule, Refills 5, Tot. Refills 5, Maintenance, 08/13/22 13:03:00 EDT, Route to Pharmacy Electronically, [facility]/pharmacy #[id number], 170, cm, 02/04/22 11:19:00 EDT, Height, 44.1, kg, 12/20/21 16:05:00 EST, Dry Weight Start Date: 08/13/22 Status: Ordered hydrOXYzine hydrochloride 10 mg oral tablet 3 tablet = 30 mg, By Mouth, 3 times a day, PRN NEEDED FOR ANXIETY, # 270 tablet, 3 Refills, Maintenance, 03/01/23 12:03:00 EDT, [facility]/pharmacy #[id number], 170, cm, 02/04/22 11:19:00 EDT, Height, 44.1, kg, 12/20/21 16:05:00 EST, Dry Weight Start Date: 03/01/23 Status: Ordered LORazepam 0.5 mg oral tablet 1 tablet = 0.5 mg, By Mouth, 2 times a day, PRN as needed for anxiety, for 14 days, fill when due, # 28 tablet, 1 Refills, Acute 05/07/23 12:41:00 EDT, 04/09/23 12:41:00 EDT, Tablet, [facility]/pharmacy #[id number], Partial fill upon patient request [...] 3 Refills, Maintenance, 12/16/22 9:12:00 EST, Capsule, [facility]/pharmacy #[id number], Partial fill upon patient request [...] 0 Refills, Maintenance, 04/20/23 11:30:00 EDT, Tablet, [facility]/pharmacy #[id number], Partial fill upon patient request if the prescription is for a schedule II opio... Start Date: 04/20/23 Status: Ordered predniSONE 10 mg oral tablet See Instructions, 30 mg daily for 3 days and then 20 mg daily for 3 days and then continue 10 mg daily., # 39 each, 0 Refills, Maintenance, 03/22/23 13:16:00 EDT, Tablet, [facility], Partial fill upon patient [...] each, 0 Refills, Maintenance, 04/20/23 11:32:00 EDT, [id number], Partial fill upon patient request [...] Milena ORTIZ, Morgan Hancock Position: [facility] Renal MD Member Role: Lifetime Consulting Physician Address: Address: [address] [place] [address], [address] [place] [address]- Name: Graciela Nunez MD Position: [facility] Physician - Primary Care Member Role: PCP Address: Address: [address] [place] [id number]- [place] Name: Maryam Camara RN Position: S [...] Name: Romeo Reid MD Position: [facility] Renal MD Member Role: Lifetime Consulting Physician Address: Address: [address] [place] [address] [facility], [place] [address]- Name: Olga Valladares RN Position: [facility] RN Member Role: Primary Care Nurse Name: Ruby Alexandre RN Position: [facility] RN Member Role: Primary Care Nurse Address: Address: [address] [place] [id number]- Name: Celso Lawson MD Position: [facility] Renal MD Member Role: Lifetime Consulting Physician Address: Address: [address] [place] [address] [facility] [place] [address]- Name: Chloe Fisher LPN Position: [facility] RN Member Role: Primary Care Nurse Care Team Related Persons Name: INDIALAZARUS Address: [place] [address] Name: KAVON NICOLE Address: [address] [place] [address] Name: PT, STATES NONE
--- OUTSIDE RECORDS SUMMARY | 2023-08-21 08:36 | XMS_ITS | Continuity of Care Document ---
Author Name Unknown Organization [facility] Address [address] [place] [address]- Care Team Providers Care Route Inspector Name Role Phone Graciela Nunez MD Primary Care Physician [place] [facility] Date(s): 08/27/21 - 09/26/21 [facility] [address] [place], [place] [address] Allergies, Adverse Reactions, Alerts Substance Reaction [...] 23-valent vaccine 5 07/31/10 Recorded 1Location History: [place], [place] 2Admin Note: done @ dr jones office 3Location History: [facility] 4Location History: [facility] 5Location History: [facility] Medications alendronate 70 mg [...] 0 Refills, Maintenance, 09/01/21 15:19:00 EDT, Capsule, [facility] #[id number], Partial fill upon patient request if the prescription i... Start Date: 09/01/21 Stop Date: 09/15/21 Status: Ordered duloxetine 30 mg oral enteric coated capsule 1 capsule = 30 mg, By Mouth, Daily, do not crush or chew, # 30 capsule, 3 Refills, Maintenance, 09/11/21 12:04:00 EST, CR Capsule, [facility] #[id number], Partial fill upon patient request if the [...] 01/31/21 16:35:00 EDT, Route to Pharmacy Electronically, [facility] #[id number], 170, cm, 10/02/20 10:06:00EST, Height, 56.3, kg, 11/24/19 22:58:00 EST, Dry W... Start Date: 01/31/21 Status: Ordered furosemide 20 mg oral tablet 1, tablet, By Mouth, Daily, PRN, # 90 tablet, Refills 0, Tot. Refills 0, Maintenance, NEEDED FORLEG SWELLING, 04/19/20 15:50:00 EDT, Route to Pharmacy Electronically, [facility] #[id number],170, cm, 12/13/19 13:51:00 EST, Height, 56.3, kg, 0... Start Date: 04/19/20 Status: Ordered gabapentin 300 mg oral capsule 2, capsule, By Mouth, 3 times a day, # 180 capsule, Refills 1, Tot. Refills 1, Maintenance, 08/26/21 10:50:00 EDT, Route to Pharmacy Electronically, [facility] #[id number], 162.56, cm, 08/22/21 2:36:00 EDT, Height, 52.65, [...] tablet, 0 Refills, Maintenance, 09/10/21 16:04:00 EST, [facility] #[id number], 170, cm, 08/30/21 17:40:00 EDT, Height,51.5, kg, 08/30/21 17:40:00 EDT, Dry Weight Start Date: 09/10/21 Status: Ordered Metoprolol Succinate ER 25 mg oral tablet, extended release 1 tablet = 25 mg, By Mouth, Daily, # 90 tablet, 1 Refills, Maintenance, 01/29/20 10:50:00 EDT, XL Tablet, [facility] #[id number], 170, cm, 12/13/19 13:51:00 EST, Height, 56.3, kg, 11/24/19 22:58:00 EST, Dry Weight Start Date: 01/29/20 Status: Ordered predniSONE 10 mg oral tablet See Instructions, 4 tabs x 3 days, 3 tabs x 3 days, 2 tabs x 3 days, 1 tab x 3 days, # 30 tablet, 0Refills, Acute 10/11/21 12:03:00 EST, 09/11/21 12:03:00 EST, Tablet, [facility] #[id number], Partial fill upon patient request if the [...] 3 Refills, Maintenance, 03/13/21 13:26:00 EDT, Tablet, [facility] #[id number], 170, cm, 10/02/20 10:06:00 EST, Height, 56.3, [...] Refills, Maintenance, 02/26/21 15:47:00 EDT, ER Tablet, [facility] #[id number], Partial fill upon patient requestif the prescription [...] 01/06/21 14:35:00 EST, Route to Pharmacy Electronically, [facility] #[id number], 170, cm, 10/02/20 10:06:00 EST, Height, 56.3, kg, 11/24/19 22:58:00 EST, Dry Weight Start Date: 01/06/21 Status: Ordered Zofran 4 mg oral tablet 1 tablet = 4 mg, By Mouth, 3 times a day, PRN nausea, # 30 tablet, 0 Refills, Maintenance, :17:00 EDT, Tablet, [facility] #[id number], 170, cm, 12/13/19 13:51:00 EST, Height, 56.3, [...]
--- OUTSIDE RECORDS SUMMARY | 2023-08-21 08:36 | XMS_ITS | Continuity of Care Document ---
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 Role Phone Graciela Nunez MD Primary Care Physician Encounter [facility] [place] Date(s): 12/28/22 - 01/27/23 [facility] [address] [place], [place] [address] Allergies, Adverse Reactions, Alerts Substance [...] 23-valent vaccine 6 07/31/10 Recorded 1Result Comment: [id number] given w/out incident 2Location History: [place], [place] 3Admin Note: done @ dr jones office 4Location History: [facility] 5Location History: [facility] 6Location History: [facility] Medications aspirin 81 mg [...] tablet 10 mg, 1, tablet, By Mouth, Daily, PRN, # 14 tablet, Refills 2, Tot. Refills 2, Maintenance, Pain ,Moderate, 12/28/22 16:00:00 EST, Route to Pharmacy Electronically, [facility]/pharmacy #[id number], Partial fillupon patient request if the prescription is for a s... Start Date: 12/28/22 Stop Date: 02/08/23 Status: Ordered busPIRone 10 mg oral tablet 1, tablet, By Mouth, 3 times a day, # 270 tablet, Refills 1, Maintenance, 11/12/22 17:44:00 EST, Route to Pharmacy Electronically, [id number], 170, cm, 02/04/22 11:19:00 EDT, Height, 44.1, kg, 12/20/21 16:05:00 EST, Dry Weight Start Date: 11/12/22 Status: Ordered calcium-vitamin D 600 mg-400 intl units oral tablet 1 tablet, By Mouth, 2 times a day, # 60 tablet, 6 Refills, Maintenance, 05/15/22 16:21:00 EDT, Tablet, [facility] #[id number], Partial fill upon patient request if the prescription is for a schedule II opioid drug., 1 tablet By Mouth 2 times a da... Start Date: 05/15/22 Status: Ordered Colace sodium 100 mg oral capsule 100 mg, 1, capsule, By Mouth, 2 times a day, PRN, # 180 capsule, Refills 1, Tot. Refills 1, Maintenance, for constipation, 06/23/22 10:20:00 EDT, Route to Pharmacy Electronically, [facility]/pharmacy #[id number],prefers gel formulation, 170, cm, 02/04/22 11:19:00... Start Date: 06/23/22 Status: Ordered Flonase 50 mcg/inh nasal spray 1 sprays, Nares, Both, Daily in AM, # 16 Gm, 4 Refills, Maintenance, 12/03/21 12:34:00 EST, [place], [facility] #[id number], Partial fill upon patient request if the prescription is for a scheduleII opioid drug., 1 sprays Nares, Both Daily in AM,... Start Date: 12/03/21 Status: Ordered folic acid 1 mg oral tablet 1 mg, 1, tablet, By Mouth, Daily, # 30 tablet, Refills 11, Tot. Refills 11, Maintenance, 12/03/22 9:01:00 EST, [id number], cm, 02/04/22 11:19:00 EDT, Height, 44.1, kg, 12/20/21 16:05:00 EST, Dry Weight Start Date: 12/03/22 Status: Ordered gabapentin 300 mg oral capsule 2, capsule, By Mouth, 3 times a day, # 180 capsule, Refills 5, Tot. Refills 5, Maintenance, 08/13/22 13:03:00 EDT, [id number], 170, cm, 02/04/22 11:19:00 EDT, Height, 44.1, kg, 12/20/21 16:05:00 EST, Dry Weight Start Date: 08/13/22 Status: Ordered Hair, Skin & Nails 5 mg oral capsule 1 capsule = 5 mg, By Mouth, Daily, # 90 capsule, 3 Refills, Maintenance, 02/19/22 12:29:00 EDT, [facility] #[id number], Partial fill upon patient request if the prescription is for a schedule IIopioid drug., 1 capsule By Mouth Daily, 170, cm, 04... Start Date: 02/19/22 Status: Ordered hydrOXYzine hydrochloride 10 mg oral tablet 1 tablet = 10 mg, By Mouth, 3 times a day, PRN NEEDED FOR ANXIETY, # 90 tablet, 3 Refills, Maintenance, 12/27/22 11:47:00 EST, [facility]/pharmacy #[id number], 170, cm, 02/04/22 11:19:00 EDT, Height, 44.1, kg,12/20/21 16:05:00 EST, Dry Weight Start Date: 12/27/22 Status: Ordered lactulose 10 gm/15 ml oral syrup 15 mL = 10 Gm, By Mouth, Every 72 hours, PRN as needed for constipation, # 300 mL, 5 Refills, Maintenance, 03/19/22 14:45:00 EDT, Syrup, [facility] #[id number], Partial fill upon patient requestif the prescription is for a schedule II opioid ivonne... Start Date: 03/19/22 Status: Ordered LORazepam 0.5 mg oral tablet 1 tablet = 0.5 mg, By Mouth, 3 times a day, # 60 tablet, 1 Refills, Maintenance, 01/06/23 15:58:00 EST, Tablet, [facility]/pharmacy #[id number], Partial fill upon patient request if the prescription is for a schedule II opioid drug., 170, cm, 02/04/22 11:19:00 EDT... Start Date: 01/06/23 Status: Ordered Metoprolol Succinate ER 25 mg oral tablet, extended release TAKE 1 TABLET BY MOUTH ONCE DAILY Start Date: 12/03/22 Status: Ordered multivitamin Multiple Vitamins oral capsule 1 capsule, By Mouth, Daily, # 90 capsule, 3 Refills, Maintenance, 12/16/22 9:12:00 EST, Capsule, [facility]/pharmacy #[id number], Partial fill upon patient request if the prescription is for a schedule II opioid drug., 1 capsule By Mouth Daily, 170, cm, 02/04/22 1... Start Date: 12/16/22 Status: Ordered nitroglycerin 0.3 mg sublingual tablet 1 tablet = 0.3 mg, Sublingual, Every 5 minutes, PRN as needed for chest pain, not to exceed 3 doses/15 min--if pain persists, seek medical attention, Maintenance, 12/20/21 17:55:00 EST, Tablet, Partial fill upon patient request if the prescription is... Start Date: 12/20/21 Status: Ordered pantoprazole 40 mg oral delayed release tablet 1 tablet = 40 mg, By Mouth, Daily, # 30 tablet, 5 Refills, Maintenance, 12/03/22 8:54:00 EST, [facility] Table[facility], 170, cm, 02/04/22 11:19:00 EDT, Height, 44.1, kg, 12/20/21 16:05:00 EST, Dry Weight Start Date: 12/03/22 Status: Ordered predniSONE 5 mg oral tablet 1 tablet = 5 mg, By Mouth, Daily, 0 Refills, Maintenance, 11/06/21 10:25:00 EST, Tablet, Partial fill upon patient request if the prescription is for a schedule II opioid drug. Start Date: 11/06/21 Status: Ordered Senna 8.6 mg oral tablet 17.2 mg, 2, tablet, By Mouth, Daily at bedtime, PRN, # 100 tablet, Refills 2, Tot. Refills 2, Maintenance, for constipation, 12/03/22 8:52:00 EST, Route to Pharmacy Electronically, [facility]/pharmacy #[id number], Partial fill upon patient request if the pr... Start Date: 12/03/22 Status: Ordered Spiriva HandiHaler 18 mcg Inhalation [...] FOR PAIN, # 21 tablet, 3 Refills, 12/03/22 8:53:00 EST, [facility]/pharmacy #[id number], 170, cm, 02/04/22 11:19:00 EDT, Height, 44.1, kg, 12/20/21 16:0... Start Date: 12/03/22 Status: Ordered Tylenol 8 HR Arthritis Pain 650 mg oral tablet, extended release 1 tablet = 650 mg, By Mouth, Every 8 hours, PRN Pain , Moderate, # 100 tablet, 1 Refills, Maintenance, 02/26/21 15:47:00 EDT, ER Tablet, [facility] #[id number], Partial fill upon patient requestif the prescription [...] Active At risk for falls Confirmed Active AF (atrial fibrillation) Confirmed Active Bradycardia Confirmed Active Cervical radiculopathy [...] Osteoporosis Confirmed Active Breast pain Confirmed Active Raynaud's phenomenon Confirmed Active Rectal bleed Confirmed Active Leg swelling Confirmed Active Abnormal TSH Confirmed Active Underweight Confirmed Active Social History Social History Type Response Tobacco Other: now smoking 1 /2 pack per day. Sex Patient Care team information Care Team Personnel Name: Angie Farmer RN Position: [facility] RN Member Role: Primary Care Nurse Name: Milena ORTIZMorgan Position: [facility] Renal MD Member Role: Lifetime Consulting Physician Address: Address: [address] [facility], [address] [place] [address]- [place] Name: Graciela Nunez MD Position: [facility] Primary Care Physician Member Role: PCP Address: Address: [address] [place] [id number]- [place] Name: Luisa Storey RN Position: [facility] RN Member Role: Primary Care Nurse Care Team Related Persons Name: LAZARUS OSBORNE Address: [place] [address] Name: KAVON NICOLE Address: [address] [place] [address] Name: PT, [facility] NONE
--- OUTSIDE RECORDS SUMMARY | 2023-08-21 08:36 | XMS_ITS | Continuity of Care Document ---
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 Role Phone Graciela Nunez MD Primary Care Physician Encounter [facility] [place] Date(s): 10/02/20 - 11/01/20 [facility] [address] [facility] [place] [address]- Attending Physician: Admtr, Dennys Admitting Physician: Admtr, Dennys Referring Physician: Admtr, Ar8 Allergies, Adverse Reactions, Alerts Substance Reaction Severity [...] 23-valent vaccine 5 07/31/10 Recorded 1Location History: [place], [place] 2Admin Note: done @ dr jones office 3Location History: [facility] 4Location History: [facility] 5Location History: [facility] Medications alendronate 70 mg oral [...] Replace Required Details, Route to Pharmacy Electronically, [facility] #[id number]... Start Date: 01/31/20 Status: Ordered doxycycline monohydrate 100 mg oral tablet 1 tablet = 100 mg, By Mouth, 2 times a day, for 7 days, # 14 tablet, 0 Refills, Acute 11/05/20 15:53:00 EST, 10/29/20 15:53:00 EST, Tablet, [facility]/pharmacy #[id number], 170, cm, 10/02/20 10:06:00 EST, Height,56.3, kg, 11/24/19 22:58:00 EST, Dry Weight Start Date: 10/29/20 Stop Date: 11/05/20 Status: Ordered folic acid 1 mg oral tablet 1 mg, 1, tablet, By Mouth, Daily, # 30 tablet, Refills 3, Tot. Refills 3, Maintenance, 01/18/20 10:43:00 EDT, Route to Pharmacy Electronically, [facility] #[id number], 170, cm, 12/13/19 13:51:00EST, Height, 56.3, kg, 11/24/19 22:58:00 EST, Dry W... Start Date: 01/18/20 Status: Ordered furosemide 20 mg oral tablet 1, tablet, By Mouth, Daily, PRN, # 90 tablet, Refills 0, Tot. Refills 0, Maintenance, NEEDED FORLEG SWELLING, 04/19/20 15:50:00 EDT, Route to Pharmacy Electronically, [facility] #[id number],170, cm, 12/13/19 13:51:00 EST, Height, 56.3, kg, 0... Start Date: 04/19/20 Status: Ordered gabapentin 300 mg oral capsule 600 mg, 2, capsule, By Mouth, 3 times a day, # 180 capsule, Refills 3, Tot. Refills 3, Maintenance,10/01/20 15:48:00 EST, Route to Pharmacy Electronically, [facility] #[id number], 170, cm, 12/13/19 13:51:00 EST, Height, 56.3, kg, 11/24/19 22:58:... Start Date: 10/01/20 Status: Ordered gabapentin 300 mg oral capsule See Instructions, TAKE 2 CAPSULES BY MOUTH three times per day, # 180 capsule, Refills 1, Instructions Replace Required Details, Route to Pharmacy Electronically, [facility] #[id number], 170, cm, 12/13/19 13:51:00 EST, Height, 56.3, kg, 11/24/19... Start Date: 01/19/20 Status: Ordered Home Blood Pressure Monitor See Instructions, # 1 Unknown, Maintenance, DX: Bradycardia, R00.1 low heart rate USE DAILY LIFETIME USE HEIGHT 170CM WEIGHT 56KG, 12/13/19 13:56:00 EST, Compound Start Date: 12/13/19 Status: Ordered LORazepam 0.5 mg oral tablet 1 tablet = 0.5 mg, By Mouth, 2 times a day, PRN as needed for anxiety, # 10 tablet, 0 Refills, Acute 11/09/20 10:53:00 EST, 10/15/20 10:53:00 EST, Tablet, [facility]/pharmacy #[id number], Partial fill upon patient request if the prescription is for a schedule II o... Start Date: 10/15/20 Stop Date: 11/09/20 Status: Ordered Metoprolol Succinate ER 25 mg oral tablet, extended release 1 tablet = 25 mg, By Mouth, Daily, # 90 tablet, 1 Refills, Maintenance, 01/29/20 10:50:00 EDT, XL Tablet, [facility] #[id number], 170, cm, 12/13/19 13:51:00 EST, Height, 56.3, [...] 3 Refills, Maintenance, 08/23/20 12:07:00 EDT, Tablet, [facility] #[id number], 170, cm, 12/13/19 13:51:00 EST, Height, 56.3, [...] 6 Refills, Maintenance, 06/17/20 16:11:00 EDT, Aerosol, [facility] #[id number], 170, cm, 12/13/19 13:51:00 EST, Height, 56.3, [...] 12/18/19 14:10:00 EST, Route to Pharmacy Electronically, [facility] #[id number], 170, cm, 12/13/19 13:51:00 EST, Height, 56.3, kg, 11/24/19 22:58:00 EST, Dry Weight Start Date: 12/18/19 Status: Ordered Zofran 4 mg oral tablet 1 tablet = 4 mg, By Mouth, 3 times a day, PRN nausea, # 30 tablet, 0 Refills, Maintenance, :17:00 EDT, Tablet, [facility] #[id number], 170, cm, 12/13/19 13:51:00 EST, Height, 56.3, [...]
--- OUTSIDE RECORDS SUMMARY | 2023-08-21 08:36 | XMS_ITS | Continuity of Care Document ---
Author Name Unknown Organization [facility] Address [address] [place] [address]- Care Team Providers Care Sheet Manager Name Role Phone Mayra ORTIZ, Graciela Lares Primary Care Physician Encounter [facility] [place] Date(s): 05/13/23 - 06/13/23 [facility] [address] [place], [place] [address] Attending Physician: Noah Morales MD Allergies, Adverse Reactions, Alerts Substance Reaction [...] 23-valent vaccine 6 07/31/10 Recorded 1Result Comment: [id number] given w/out incident 2Location History: [place], [place] 3Admin Note: done @ dr jones office 4Location History: [facility] 5Location History: [facility] 6Location History: [facility] Medications albuterol-ipratropium 3 mg-0.5 mg/3 ml [...] 05/25/23 15:31:00 EDT, Route to Pharmacy Electronically, [facility]/pharmacy #[id number], Partial fill upon patient request if the [...] A DAY NEEDED FOR CONSTIPATION. FILLED AT [facility] Start Date: 03/18/23 Status: Ordered folic acid 1 mg oral tablet 1 mg, 1, tablet, By Mouth, Daily, # 30 tablet, Refills 11, Tot. Refills 11, Maintenance, 12/03/22 9:01:00 EST, Route to Pharmacy Electronically, [facility]/pharmacy #[id number], 170, cm, 02/04/22 11:19:00 EDT, Height, 44.1, kg, 12/20/21 16:05:00 EST, Dry Weight Start Date: 12/03/22 Status: Ordered gabapentin 300 mg oral capsule 2, capsule, By Mouth, 3 times a day, # 180 capsule, Refills 5, Tot. Refills 5, Maintenance, 08/13/22 13:03:00 EDT, Route to Pharmacy Electronically, [facility]/pharmacy #[id number], 170, cm, 02/04/22 11:19:00 EDT, Height, 44.1, kg, 12/20/21 16:05:00 EST, Dry Weight Start Date: 08/13/22 Status: Ordered hydrOXYzine hydrochloride 10 mg oral tablet 3 tablet = 30 mg, By Mouth, 3 times a day, PRN NEEDED FOR ANXIETY, # 270 tablet, 3 Refills, Maintenance, 03/01/23 12:03:00 EDT, [facility]/pharmacy #[id number], 170, cm, 02/04/22 11:19:00 EDT, [...] 3 Refills, Maintenance, 12/16/22 9:12:00 EST, Capsule, [facility]/pharmacy #[id number], Partial fill upon patient request [...] Team Personnel Name: Morgan Abbott MD Position: [facility] Renal MD Member Role: Lifetime Consulting Physician Address: Address: [address] [place] [address], [address] [place] [address] Name: Graciela Nunez MD Position: [facility] Physician - Primary Care Member Role: PCP Address: Address: [address] [place] [address] Name: Maryam Camara RN Position: [facility] RN Member Role: Primary Care Nurse Name: Josemanuel Hawkins RN Position: [facility] RN Member Role: Primary Care [...] Care Nurse Name: Romeo Reid MD Position: [facility] Renal MD Member Role: Lifetime Consulting Physician Address: Address: [address] [place] [address] [address] [facility] [place] [address]- Name: Olga Valladares RN Position: S RN Member Role: Primary Care Nurse Name: Ruby Alexandre RN Position: S RN Member Role: Primary Care Nurse Address: Address: [address] [place] [address] Name: Celso Lawson MD Position: [facility] Renal MD Member Role: Lifetime Consulting Physician Address: Address: [address] [place] [address] [facility] [address] Name: Alyssa Camacho RN Position: S RN Member Role: Primary Care Nurse Name: Keely Pascal RN Position: S RN Member Role: Primary Care Nurse Name: Chloe Fisher LPN Position: S RN Member Role: Primary Care Nurse Care Team Related Persons Name: LAZARUS OSBORNE Address: [place] [address] Name: KAVON NICOLE Address: home [address] [place] [address] Name: PT, [facility] NONE
--- OUTSIDE RECORDS SUMMARY | 2023-08-21 08:36 | XMS_ITS | Continuity of Care Document ---
Author Name Unknown Organization [facility] Address [address] [place] [address]- Care Team Providers Care Cub Reporter Name Role Phone Mayra ORTIZ, Graciela Lares Primary Care Physician Encounter [facility] [place] Date(s): 05/10/23 - 06/13/23 [facility] [address] [place], [place] [address] Attending Physician: Andrew ORTIZ, Noah Allergies, Adverse Reactions, Alerts Substance Reaction Severity [...] 23-valent vaccine 6 07/31/10 Recorded 1Result Comment: [id number] given w/out incident 2Location History: [place], [place] 3Admin Note: done @ dr jones office 4Location History: [facility] 5Location History: [facility] 6Location History: [facility] Medications albuterol-ipratropium 3 mg-0.5 mg/3 ml [...] 05/25/23 15:31:00 EDT, Route to Pharmacy Electronically, [facility]/pharmacy #[id number], Partial fill upon patient request if the [...] A DAY NEEDED FOR CONSTIPATION. FILLED AT [facility] Start Date: 03/18/23 Status: Ordered folic acid 1 mg oral tablet 1 mg, 1, tablet, By Mouth, Daily, # 30 tablet, Refills 11, Tot. Refills 11, Maintenance, 12/03/22 9:01:00 EST, Route to Pharmacy Electronically, [facility]/pharmacy #[id number], 170, cm, 02/04/22 11:19:00 EDT, Height, 44.1, kg, 12/20/21 16:05:00 EST, Dry Weight Start Date: 12/03/22 Status: Ordered gabapentin 300 mg oral capsule 2, capsule, By Mouth, 3 times a day, # 180 capsule, Refills 5, Tot. Refills 5, Maintenance, 08/13/22 13:03:00 EDT, Route to Pharmacy Electronically, [facility]/pharmacy #[id number], 170, cm, 02/04/22 11:19:00 EDT, Height, 44.1, kg, 12/20/21 16:05:00 EST, Dry Weight Start Date: 08/13/22 Status: Ordered hydrOXYzine hydrochloride 10 mg oral tablet 3 tablet = 30 mg, By Mouth, 3 times a day, PRN NEEDED FOR ANXIETY, # 270 tablet, 3 Refills, Maintenance, 03/01/23 12:03:00 EDT, [facility]/pharmacy #[id number], 170, cm, 02/04/22 11:19:00 [...] 3 Refills, Maintenance, 12/16/22 9:12:00 EST, Capsule, [facility]/pharmacy #[id number], Partial fill upon patient [...] Team Personnel Name: Morgan Abbott MD Position: [facility] Renal MD Member Role: Lifetime Consulting Physician Address: Address: [address] [place] [address], [address] [place] [address] Name: Graciela Nunez MD Position: [facility] Physician - Primary Care Member Role: PCP Address: Address: [address] [place] [address] Name: Maryam Camara RN Position: [facility] RN Member Role: Primary Care Nurse Name: Josemanuel Hawkins RN Position: [facility] RN Member Role: Primary Care Nurse Name: [...] Care Nurse Name: Romeo Reid MD Position: [facility] Renal MD Member Role: Lifetime Consulting Physician Address: Address: [address] [place] [address] [address] [facility] [place] [address]- Name: Olga Valladares RN Position: S RN Member Role: Primary Care Nurse Name: Ruby Alexandre RN Position: S RN Member Role: Primary Care Nurse Address: Address: [address] [place] [address] Name: Celso Lawson MD Position: [facility] Renal MD Member Role: Lifetime Consulting Physician Address: Address: [address] [place] [address] [facility] [address] Name: Alyssa Camacho RN Position: S RN Member Role: Primary Care Nurse Name: Keely Pascal RN Position: S RN Member Role: Primary Care Nurse Name: Chloe Fisher LPN Position: S RN Member Role: Primary Care Nurse Care Team Related Persons Name: LAZARUS OSBORNE Address: [place] [address] Name: KAVON NICOLE Address: [address] [place] [address] Name: PT, [facility] NONE
--- OUTSIDE RECORDS SUMMARY | 2023-08-21 08:36 | XMS_ITS | Continuity of Care Document ---
Author Name Unknown Organization [facility] Address [address] [place] [address]- Care Team Providers Care Batch Trucker Name Role Phone Graciela Nunez MD Primary Care Physician Encounter [facility] Date(s): 05/12/22 - 06/11/22 [facility] [address], [place] [address] Allergies, Adverse Reactions, Alerts Substance [...] 23-valent vaccine 6 07/31/10 Recorded 1Result Comment: [id number] given w/out incident 2Location History: [place], [place] 3Admin Note: done @ dr jones office 4Location History: [facility] 5Location History: [facility] 6Location [...] 3 Refills, Maintenance, 04/09/22 9:54:00 EDT, Tablet, [facility] #[id number], Partial fill upon patient request if the prescription is for a schedule II opioid drug., 1 tablet By Mouth Daily, 170, cm, 02/04... Start Date: 04/09/22 Status: Ordered busPIRone 10 mg oral tablet 10 mg, 1, tablet, By Mouth, 3 times a day, # 90 tablet, Refills 1, Tot. Refills 1, Maintenance, 04/28/22 16:25:00 EDT, Route to Pharmacy Electronically, [facility] #[id number], new dosage, 170, cm, 02/04/22 11:19:00 EDT, Height, 44.1, kg, ... Start Date: 04/28/22 Status: Ordered calcium (as carbonate)-vitamin D 500 mg-400 intl units oral tablet 1 tablet, By Mouth, 2 times a day, calcium 500/vitamin d 400 iu twice daily, # 60 tablet, 6 Refills, Maintenance, 02/11/22 10:15:00 EDT, Tablet, [facility] #[id number], Partial fill upon patientrequest if the prescription is for a schedule II op... Start Date: 02/11/22 Status: Ordered calcium-vitamin D 600 mg-400 intl units oral tablet 1 tablet, By Mouth, 2 times a day, # 60 tablet, 6 Refills, Maintenance, 05/15/22 16:21:00 EDT, Tablet, [facility] #[id number], Partial fill upon patient request if the prescription is for a schedule II opioid drug., 1 tablet By Mouth 2 times a da... Start Date: 05/15/22 Status: Ordered Colace sodium 100 mg oral capsule 100 mg, 1, capsule, By Mouth, 2 times a day, PRN, # 60 capsule, Refills 5, Tot. Refills 5, Maintenance, for constipation, 02/04/22 11:08:00 EDT, Route to Pharmacy Electronically, [facility]#[id number], prefers gel formulation, 170, cm, 02/04/22... Start Date: 02/04/22 Status: Ordered diltiazem 180 mg/24 hours oral capsule, extended release 180 mg, 1, capsule, By Mouth, Daily, # 30 capsule, Refills 0, Tot. Refills 0, Maintenance, 11/06/2209:09:00 EST, Route to Pharmacy Electronically, [facility] #[id number], Partial fill upon patient request if the prescription is for a schedule II... Start Date: 11/06/21 Status: Ordered Flonase 50 mcg/inh nasal spray 1 sprays, Nares, Both, Daily in AM, # 16 Gm, 4 Refills, Maintenance, 12/03/21 12:34:00 EST, [place], [facility] #[id number], Partial fill upon patient request if the prescription is for a scheduleII opioid drug., 1 sprays Nares, Both Daily in AM,... Start Date: 12/03/21 Status: Ordered folic acid 1 mg oral tablet 1 mg, 1, tablet, By Mouth, Daily, # 30 tablet, Refills 11, Tot. Refills 11, Maintenance, 02/25/22 16:15:00 EDT, Route to Pharmacy Electronically, [facility] #[id number], 170, cm, 02/04/22 11:19:00 EDT, Height, 44.1, [...] 02/09/22 15:13:00 EDT, Route to Pharmacy Electronically, [facility] #[id number], 170, cm, 02/04/22 11:19:00 EDT, Height, 44.1, kg, 12/20/21 16:05:00 EST,... Start Date: 02/09/22 Status: Ordered Hair, Skin & Nails 5 mg oral capsule 1 capsule = 5 mg, By Mouth, Daily, # 90 capsule, 3 Refills, Maintenance, 02/19/22 12:29:00 EDT, [facility] #[id number], Partial fill upon patient request if the prescription is for a schedule IIopioid drug., 1 capsule By Mouth Daily, 170, cm, 04... Start Date: 02/19/22 Status: Ordered hydrOXYzine hydrochloride 10 mg oral tablet 1-2 TABLETS, By Mouth, 2 times a day, PRN NEEDED FOR ANXIETY, # 60 tablet, 3 Refills, [facility] [id number], 170, cm, 02/04/22 11:19:00 EDT, Height, 44.1, kg, 12/20/21 16:05:00 EST, Dry Weight Start Date: 05/27/22 Status: Ordered lactulose 10 gm/15 ml oral syrup 15 mL = 10 Gm, By Mouth, Every 72 hours, PRN as needed for constipation, # 300 mL, 5 Refills, Maintenance, 03/19/22 14:45:00 EDT, Syrup, [facility] #[id number], Partial fill upon patient requestif the prescription is for a schedule II opioid ivonne... Start Date: 03/19/22 Status: Ordered LORazepam 0.5 mg oral tablet 1 tablet = 0.5 mg, By Mouth, 3 times a day, # 60 tablet, 3 Refills, Maintenance, 04/28/22 16:24:00 EDT, Tablet, [facility] #[id number], Partial fill upon patient request if the prescription is for a schedule II opioid drug., 170, cm, 02/04/22 11:... Start Date: 04/28/22 Status: Ordered Metoprolol Succinate ER 25 mg [...] 10/22/21 15:09:00 EST, Route to Pharmacy Electronically, [facility] #[id number] Tablet, Partial fill upon patient request... Start [...] Refills, Maintenance, 02/26/21 15:47:00 EDT, ER Tablet, [facility] #[id number], Partial fill upon patient requestif the prescription is for a schedule II opioid ivonne... Start Date: 02/26/21 Status: Ordered Ventolin HFA 108 mcg/inh inhalation aerosol with adapter 2 puffs, Inhalation, 4 times a day, PRN for wheezing, # 1 each, 0 Refills, Maintenance, 10/02/20 10:55:00 EST, Aerosol, [facility]/pharmacy #[id number], 170, cm, 10/02/20 10:06:00 EST, Height, 56.3, kg, 11/24/19 22:58:00 EST, Dry Weight Start Date: 10/02/20 Status: Ordered Vitamin D3 1000 intl units oral capsule 1 capsule = 25 mcg, By Mouth, Daily, # 30 capsule, 11 Refills, Maintenance, 12/02/21 10:55:00 EST, Capsule, [facility] #[id number], Partial fill upon patient request if the [...]
--- OUTSIDE RECORDS SUMMARY | 2023-08-21 08:36 | XMS_ITS | Continuity of Care Document ---
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 Name Role Phone Graciela Nunez MD Primary Care Physician [phone] [place]counter [facility] Date(s): 04/02/23 - 05/02/23 [facility] [address] [place], [place] [address] Allergies, Adverse Reactions, Alerts Substance Reaction [...] 23-valent vaccine 6 07/31/10 Recorded 1Result Comment: [id number] given w/out incident 2Location History: [place], [place] 3Admin Note: done @ dr jones office 4Location History: [facility] 5Location History: [facility] 6Location History: [facility] Medications aspirin 81 mg oral [...] Replace Required Details, Route to Pharmacy Electronically, [facility] [id number], 170, cm, ... Start Date: 03/26/23 Status: Ordered baclofen 10 mg oral tablet 10 mg, 1, tablet, By Mouth, 2 times a day, PRN, # 28 tablet, Refills 2, Tot. Refills 2, Maintenance, Pain , Moderate, 02/11/23 12:27:00 EDT, Route to Pharmacy Electronically, [facility]/pharmacy #[id number], Partial fill upon patient request if the prescription is... Start Date: 02/11/23 Stop Date: 03/25/23 Status: Ordered Compression Stockings See Instructions, # 2 Unknown, Refills 12, Tot. Refills 12, Maintenance, surgical, knee length 20-30 mm Hg 2 pairs every 3 months Dx: edema ICD 10 code R 60.0, 04/29/23 8:15:00 EDT, Supply Start Date: 04/29/23 Status: Ordered docusate sodium 100 mg oral capsule TAKE 1 CAPSULE BY MOUTH 2 TIMES A DAY NEEDED FOR CONSTIPATION. FILLED AT [facility] Start Date: 03/18/23 Status: Ordered folic acid 1 mg oral tablet 1 mg, 1, tablet, By Mouth, Daily, # 30 tablet, Refills 11, Tot. Refills 11, Maintenance, 12/03/22 9:01:00 EST, Route to Pharmacy Electronically, [facility][id number], 170, cm, 02/04/22 11:19:00 EDT, Height, 44.1, kg, 12/20/21 16:05:00 EST, Dry Weight Start Date: 12/03/22 Status: Ordered gabapentin 300 mg oral capsule 2, capsule, By Mouth, 3 times a day, # 180 capsule, Refills 5, Tot. Refills 5, Maintenance, 08/13/22 13:03:00 EDT, Route to Pharmacy Electronically, [facility]/pharmacy #[id number], 170, cm, 02/04/22 11:19:00 EDT, Height, 44.1, kg, 12/20/21 16:05:00 EST, Dry Weight Start Date: 08/13/22 Status: Ordered hydrOXYzine hydrochloride 10 mg oral tablet 3 tablet = 30 mg, By Mouth, 3 times a day, PRN NEEDED FOR ANXIETY, # 270 tablet, 3 Refills, Maintenance, 03/01/23 12:03:00 EDT, [facility]/pharmacy #[id number], 170, cm, 02/04/22 11:19:00 EDT, Height, 44.1, kg, 12/20/21 16:05:00 EST, Dry Weight Start Date: 03/01/23 Status: Ordered LORazepam 0.5 mg oral tablet 1 tablet = 0.5 mg, By Mouth, 2 times a day, PRN as needed for anxiety, for 14 days, fill when due, # 28 tablet, 1 Refills, Acute 05/07/23 12:41:00 EDT, 04/09/23 12:41:00 EDT, Tablet, [facility]/pharmacy #[id number], Partial fill upon patient request [...] 3 Refills, Maintenance, 12/16/22 9:12:00 EST, Capsule, [facility]/pharmacy #[id number], Partial fill upon patient request [...] 0 Refills, Maintenance, 04/20/23 11:30:00 EDT, Tablet, [facility]/pharmacy #[id number], Partial fill upon patient request if the prescription is for a schedule II opio... Start Date: 04/20/23 Status: Ordered predniSONE 10 mg oral tablet See Instructions, 30 mg daily for 3 days and then 20 mg daily for 3 days and then continue 10 mg daily., # 39 each, 0 Refills, Maintenance, 03/22/23 13:16:00 EDT, Tablet, [facility], Partial fill upon patient request if [...] Personnel Name: Milena ORTIZ, Morgan Hancock Position: [facility] Renal MD Member Role: Lifetime Consulting Physician Address: Address: [address] [place] [address], [address] [place] [address]- Name: Graciela Nunez MD Position: S Physician - Primary Care Member Role: PCP Address: Address: [address] [place] [address]- [place] Name: Maryam Camara RN Position: S RN Member Role: Primary Care Nurse Name: Priscila LUIS, Rylie Position: S RN Member Role: Primary Care Nurse Name: Luisa Storey RN Position: S RN Member Role: Primary Care Nurse Name: Paty Ventura RN Position: S RN Member Role: Primary Care Nurse Name: Ninfa Soto RN Position: S RN Member Role: Primary Care Nurse Name: Romeo Reid MD Position: [facility] Renal MD Member Role: Lifetime Consulting Physician Address: Address: [address] [place] [address] [address] [facility] [place] [address]- [place] Name: Olga Valladares RN Position: S RN Member Role: Primary Care Nurse Name: Ruby Alexandre RN Position: S RN Member Role: Primary Care Nurse Address: Address: [address] [place] [address]- Name: Celso Lawson MD Position: [facility] Renal MD Member Role: Lifetime Consulting Physician Address: Address: [address] [place] [address] [facility] [place] [address]- Name: Chloe Fisher LPN Position: S RN Member Role: Primary Care Nurse Care Team Related Persons Name: INDIA LAZARUS Address: [place] [address] Name: KAVON NICOLE Address: home [address] [place] [address] Name: PT, STATES NONE
--- OUTSIDE RECORDS SUMMARY | 2023-08-21 08:36 | XMS_ITS | Continuity of Care Document ---
Author Name Unknown Organization [facility] Address [address] [place] [address]- Care Team Providers Care Operations Controller Name Role Phone Graciela Nunez MD Primary Care Physician Encounter [facility] Date(s): 10/21/20 - 12/12/[address] [address] Attending Physician: Ernie Fox MD Admitting Physician: Ernie Fox MD Referring Physician: Ernie Fox MD Allergies, Adverse Reactions, Alerts Substance Reaction [...] 23-valent vaccine 5 07/31/10 Recorded 1Location History: [place], [place] 2Admin Note: done @ dr jones office 3Location History: [facility] 4Location History: [facility] 5Location History: [facility] Medications alendronate 70 [...] Replace Required Details, Route to Pharmacy Electronically, [facility] #[id number]... Start Date: 01/31/20 Status: Ordered folic acid 1 mg oral tablet 1 mg, 1, tablet, By Mouth, Daily, # 30 tablet, Refills 3, Tot. Refills 3, Maintenance, 01/18/20 10:43:00 EDT, Route to Pharmacy Electronically, [facility] #[id number], 170, cm, 12/13/19 13:51:00EST, Height, 56.3, kg, 11/24/19 22:58:00 EST, Dry W... Start Date: 01/18/20 Status: Ordered furosemide 20 mg oral tablet 1, tablet, By Mouth, Daily, PRN, # 90 tablet, Refills 0, Tot. Refills 0, Maintenance, NEEDED FORLEG SWELLING, 04/19/20 15:50:00 EDT, Route to Pharmacy Electronically, [facility] #[id number],170, cm, 12/13/19 13:51:00 EST, Height, 56.3, kg, 0... Start Date: 04/19/20 Status: Ordered gabapentin 300 mg oral capsule 600 mg, 2, capsule, By Mouth, 3 times a day, # 180 capsule, Refills 3, Tot. Refills 3, Maintenance,10/01/20 15:48:00 EST, Route to Pharmacy Electronically, [facility] #[id number], 170, cm, 12/13/19 13:51:00 EST, Height, 56.3, kg, 11/24/19 22:58:... Start Date: 10/01/20 Status: Ordered gabapentin 300 mg oral capsule See Instructions, TAKE 2 CAPSULES BY MOUTH three times per day, # 180 capsule, Refills 1, Instructions Replace Required Details, Route to Pharmacy Electronically, [facility] #[id number], 170, cm, 12/13/19 13:51:00 EST, Height, 56.3, [...] Refills, Maintenance, 01/29/20 10:50:00 EDT, XL Tablet, [facility] #[id number], 170, cm, 12/13/19 13:51:00 EST, Height, 56.3, [...] Moderate, # 90 tablet, 3 Refills, Maintenance, 11/21/20 10:53:00 EST, Tablet, [facility] #[id number], 170, cm, 10/02/20 10:06:00 EST, Height, 56.3, kg, 11/24/19 22:58:00 EST, Dry Weight Start Date: 11/21/20 Status: Ordered Shower Chair See Instructions, # [...] 6 Refills, Maintenance, 06/17/20 16:11:00 EDT, Aerosol, [facility] #[id number], 170, cm, 12/13/19 13:51:00 EST, Height, 56.3, kg, 11/24/19 22:58:00 EST, Dry Weight Start Date: 06/17/20 Stop Date: 01/13/21 Status: Ordered Ventolin HFA 108 mcg/inh inhalation aerosol with adapter 2 puffs, Inhalation, 4 times a day, PRN for wheezing, # 1 each, 0 Refills, Maintenance, 10/02/20 10:55:00 EST, Aerosol, [facility]/pharmacy #[id number], 170, cm, 10/02/20 10:06:00 EST, Height, 56.3, kg, 11/24/19 22:58:00 EST, Dry Weight Start Date: 10/02/20 Status: Ordered Vitamin B1 100 mg oral tablet 1, tablet, By Mouth, Daily, # 30 tablet, Refills 11, Tot. Refills 0, Acute, 12/18/19 14:10:00 EST, Route to Pharmacy Electronically, [facility] #[id number], 170, cm, 12/13/19 13:51:00 EST, Height, 56.3, kg, 11/24/19 22:58:00 EST, Dry Weight Start Date: 12/18/19 Status: Ordered Zofran 4 mg oral tablet 1 tablet = 4 mg, By Mouth, 3 times a day, PRN nausea, # 30 tablet, 0 Refills, Maintenance, 209:17:00 EDT, Tablet, [facility] #[id number], 170, cm, 12/13/19 13:51:00 EST, Height, 56.3, [...]
--- OUTSIDE RECORDS SUMMARY | 2023-08-21 08:36 | XMS_ITS | Continuity of Care Document ---
Author Name Unknown Organization [facility] Address [address] [place] [address]- Care Team Providers Care Real Estate Management Specialist Name Role Phone Mayra ORTIZ, Graciela Lares Primary Care Physician Encounter [facility] Date(s): 11/21/20 - 12/21/20 [facility] [address] [place], [place] [address] Allergies, Adverse Reactions, Alerts [...] 23-valent vaccine 5 07/31/10 Recorded 1Location History: [place], [place] 2Admin Note: done @ dr jones office 3Location History: [facility] 4Location History: [facility] 5Location History: [facility] Medications alendronate 70 mg oral tablet [...] Replace Required Details, Route to Pharmacy Electronically, [facility] #[id number]... Start Date: 01/31/20 Status: Ordered folic acid 1 mg oral tablet 1 mg, 1, tablet, By Mouth, Daily, # 30 tablet, Refills 3, Tot. Refills 3, Maintenance, 01/18/20 10:43:00 EDT, Route to Pharmacy Electronically, [facility] #[id number], 170, cm, 12/13/19 13:51:00EST, Height, 56.3, kg, 11/24/19 22:58:00 EST, Dry W... Start Date: 01/18/20 Status: Ordered furosemide 20 mg oral tablet 1, tablet, By Mouth, Daily, PRN, # 90 tablet, Refills 0, Tot. Refills 0, Maintenance, NEEDED FORLEG SWELLING, 04/19/20 15:50:00 EDT, Route to Pharmacy Electronically, [facility] #[id number],170, cm, 12/13/19 13:51:00 EST, Height, 56.3, kg, 0... Start Date: 04/19/20 Status: Ordered gabapentin 300 mg oral capsule 600 mg, 2, capsule, By Mouth, 3 times a day, # 180 capsule, Refills 3, Tot. Refills 3, Maintenance,10/01/20 15:48:00 EST, Route to Pharmacy Electronically, [facility] #[id number], 170, cm, 12/13/19 13:51:00 EST, Height, 56.3, kg, 11/24/19 22:58:... Start Date: 10/01/20 Status: Ordered gabapentin 300 mg oral capsule See Instructions, TAKE 2 CAPSULES BY MOUTH three times per day, # 180 capsule, Refills 1, Instructions Replace Required Details, Route to Pharmacy Electronically, [facility] #[id number], 170, cm, 12/13/19 13:51:00 EST, Height, 56.3, [...] anxiety, # 10 tablet, 0 Refills, Acute 12/17/21 8:00:00 EST, 12/16/20 12:14:00 EST, Tablet, [facility] #[id number], Partial fill upon patient request if the prescription is for a sched... Start Date: 12/16/20 Stop Date: 12/17/21 Status: Ordered Metoprolol Succinate ER 25 mg oral tablet, extended release 1 tablet = 25 mg, By Mouth, Daily, # 90 tablet, 1 Refills, Maintenance, 01/29/20 10:50:00 EDT, XL Tablet, [facility] #[id number], 170, cm, 12/13/19 13:51:00 EST, Height, 56.3, [...] 3 Refills, Maintenance, 11/21/20 10:53:00 EST, Tablet, [facility] #[id number], 170, cm, 10/02/20 10:06:00 EST, Height, 56.3, [...] 6 Refills, Maintenance, 06/17/20 16:11:00 EDT, Aerosol, [facility] #[id number], 170, cm, 12/13/19 13:51:00 EST, Height, 56.3, kg, 11/24/19 22:58:00 EST, Dry Weight Start Date: 06/17/20 Stop Date: 01/13/21 Status: Ordered Ventolin HFA 108 mcg/inh inhalation aerosol with adapter 2 puffs, Inhalation, 4 times a day, PRN for wheezing, # 1 each, 0 Refills, Maintenance, 10/02/20 10:55:00 EST, Aerosol, [facility]/pharmacy #[id number], 170, cm, 10/02/20 10:06:00 EST, Height, 56.3, kg, 11/24/19 22:58:00 EST, Dry Weight Start Date: 10/02/20 Status: Ordered Vitamin B1 100 mg oral tablet 1, tablet, By Mouth, Daily, # 30 tablet, Refills 11, Tot. Refills 0, Acute, 12/18/19 14:10:00 EST, Route to Pharmacy Electronically, [facility] #[id number], 170, cm, 12/13/19 13:51:00 EST, Height, 56.3, kg, 11/24/19 22:58:00 EST, Dry Weight Start Date: 12/18/19 Status: Ordered Zofran 4 mg oral tablet 1 tablet = 4 mg, By Mouth, 3 times a day, PRN nausea, # 30 tablet, 0 Refills, Maintenance, 209:17:00 EDT, Tablet, [facility] #[id number], 170, cm, 12/13/19 13:51:00 EST, Height, 56.3, [...]
--- OUTSIDE RECORDS SUMMARY | 2023-08-21 08:37 | XMS_ITS | Continuity of Care Document ---
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 Name Role Phone Graciela Nunez MD Primary Care Physician Encounter [facility] [place] Date(s): 04/20/23 - 05/20/23 [facility] [address] [place], [place] [address] Allergies, Adverse Reactions, Alerts Substance [...] 23-valent vaccine 6 07/31/10 Recorded 1Result Comment: [id number] given w/out incident 2Location History: [place], [place] 3Admin Note: done @ dr jones office 4Location History: [facility] 5Location History: [facility] 6Location History: [facility] Medications albuterol-ipratropium 3 mg-0.5 mg/3 [...] 02/11/23 12:27:00 EDT, Route to Pharmacy Electronically, [facility]/pharmacy #[id number], Partial fill upon patient request if the [...] A DAY NEEDED FOR CONSTIPATION. FILLED AT [facility] Start Date: 03/18/23 Status: Ordered folic acid 1 mg oral tablet 1 mg, 1, tablet, By Mouth, Daily, # 30 tablet, Refills 11, Tot. Refills 11, Maintenance, 12/03/22 9:01:00 EST, Route to Pharmacy Electronically, [facility]/pharmacy #[id number], 170, cm, 02/04/22 11:19:00 EDT, Height, 44.1, kg, 12/20/21 16:05:00 EST, Dry Weight Start Date: 12/03/22 Status: Ordered gabapentin 300 mg oral capsule 2, capsule, By Mouth, 3 times a day, # 180 capsule, Refills 5, Tot. Refills 5, Maintenance, 08/13/22 13:03:00 EDT, Route to Pharmacy Electronically, [facility]/pharmacy #[id number], 170, cm, 02/04/22 11:19:00 EDT, Height, 44.1, kg, 12/20/21 16:05:00 EST, Dry Weight Start Date: 08/13/22 Status: Ordered hydrOXYzine hydrochloride 10 mg oral tablet 3 tablet = 30 mg, By Mouth, 3 times a day, PRN NEEDED FOR ANXIETY, # 270 tablet, 3 Refills, Maintenance, 03/01/23 12:03:00 EDT, [facility]/pharmacy #[id number], 170, cm, 02/04/22 11:19:00 EDT, Height, 44.1, kg, 12/20/21 16:05:00 EST, Dry Weight Start Date: 03/01/23 Status: Ordered metoprolol 25 mg oral tablet 75 mg, By Mouth, 3 times a day, Refills 0, Maintenance, 05/19/23 14:09:00 EDT, Partial fill upon patient request if the prescription is for a schedule II opioid drug. Start Date: 05/19/23 Status: Ordered multivitamin Multiple Vitamins oral capsule 1 capsule, By Mouth, Daily, # 90 capsule, 3 Refills, Maintenance, 12/16/22 9:12:00 EST, Capsule, [facility]/pharmacy #[id number], Partial fill upon patient [...] Dry Weight Start Date: 12/03/22 Status: Ordered sertraline 25 mg oral tablet TAKE 1 TABLET BY MOUTH EVERY DAY Start Date: 04/14/23 Status: Ordered Spiriva HandiHaler 18 mcg Inhalation Capsule = 18 mcg, Inhalation, Daily, 0 Refills, Maintenance, 03/11/15 17:50:09 EDT Start Date: 03/11/15 Status: Ordered Symbicort 160mcg/4.5mcg Inhaler 2, puffs, Inhalation, 2 times a day, Refills 0, Maintenance, 04/16/16 9:09:16 EDT, Aerosol Start Date: 04/16/16 Status: Ordered Ventolin [...] Team Personnel Name: Morgan Abbott MD Position: [facility] Renal MD Member Role: Lifetime Consulting Physician Address: Address: [address] [place] [address], [address] [place] [address]- Name: Graciela Nunez MD Position: [facility] Physician - Primary Care Member Role: PCP Address: Address: [address] [place] [address]- Name: Maryam Camara RN Position: S RN [...] Care Nurse Name: Ninfa Soto RN Position: [facility] RN Member Role: Primary Care Nurse Name: Romeo Reid MD Position: [facility] Renal MD Member Role: Lifetime Consulting Physician Address: Address: [address] [place] [address] [address] [facility] [place] [place] [address]- [place] Name: Olga Valladares RN Position: S RN Member Role: Primary Care Nurse Name: Ruby Alexandre RN Position: S RN Member Role: Primary Care Nurse Address: Address: [address] [place] [address]- [place] Name: Celso Lawson MD Position: [facility] Renal MD Member Role: Lifetime Consulting Physician Address: Address: [address] [place] [address] [facility] [place] [address]- Name: Gwyn LUIS, Keely Position: [facility] RN Member Role: Primary Care Nurse Name: Chloe Fisher LPN Position: [facility] RN Member Role: Primary Care Nurse Care Team Related Persons Name: LAZARUS OSBORNE Address: [place] [address] Name: KAVON NICOLE Address: home [address] [place] [id number] Name: PT, [facility] NONE
--- OUTSIDE RECORDS SUMMARY | 2023-08-21 08:37 | XMS_ITS | Continuity of Care Document ---
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 Role Phone Graciela Nunez MD Primary Care Physician [phone] Encounter [facility] Date(s): 07/02/23 - 07/20/[address] [address]- Encounter Diagnosis Respiratory failure(Final) - 07/02/23 COPD type A(Final) - 07/02/23 Pulmonary edema(Final) - 07/02/23 Discharge Disposition: A-Transfer SNF Attending Physician: Robert Meehan MD Admitting Physician: Abelino Acevedo MD Referring Physician: Not on Staff, Referring [...] 23-valent vaccine 6 07/31/10 Recorded 1Result Comment: [id number] given w/out incident 2Location History: [place], [place] 3Admin Note: done @ dr jones office 4Location History: [facility] 5Location History: [facility] 6Location History: [facility] Medications albuterol-ipratropium 3 mg-0.5 mg/3 ml [...] IIopioid drug. Start Date: 11/06/21 Status: Ordered Ativan 1 mg oral tablet = 1 mg, By Mouth, 2 times a day, PRN Anxiety, for 5 days, # 10 tablet, 0 Refills, Acute 07/25/23 13:53:00 EDT, 07/20/23 13:53:00 EDT, Tablet, Partial fill upon patient request if the prescription is for a schedule II opioid drug. Start Date: 07/20/23 Stop Date: 07/25/23 Status: Ordered atorvastatin 20 mg oral tablet TAKE 1 TABLET BY MOUTH ONCE DAILY Start Date: 12/03/22 Status: Ordered baclofen 10 mg oral tablet 10 mg, 1, tablet, By Mouth, 2 times a day, PRN, # 28 tablet, Refills 2, Tot. Refills 2, Maintenance, Pain , Moderate, 05/25/23 15:31:00 EDT, Route to Pharmacy Electronically, [facility]/pharmacy #[id number], Partial fill upon patient request [...] Status: Ordered digoxin 0.25 mg oral tablet 0.25 mg, By Mouth, Daily, Refills 0, Maintenance, 07/20/23 13:55:00 EDT, Partial fill upon patient request if the prescription is for a schedule II opioid drug. Start Date: 07/20/23 Status: Ordered diltiazem 180 mg/24 hours oral capsule, extended release 180 mg, CD Capsule, By Mouth, 07/20/23 9:00:00 EDT Start Date: 07/20/23 Stop Date: 07/20/23 Status: Completed diltiazem 180 mg/24 hours oral [...] 12/03/22 9:01:00 EST, Route to Pharmacy Electronically, [facility]/pharmacy #[id number], 170, cm, 02/04/22 11:19:00 EDT, Height, 44.1, kg, 12/20/21 16:05:00 EST, Dry Weight Start Date: 12/03/22 Status: Ordered gabapentin 300 mg oral capsule 2, capsule, By Mouth, 3 times a day, # 180 capsule, Refills 5, Tot. Refills 5, Maintenance, 08/13/22 13:03:00 EDT, Route to Pharmacy Electronically, [facility]/pharmacy #[id number], 170, cm, 02/04/22 11:19:00 EDT, Height, 44.1, kg, 12/20/21 16:05:00 EST, Dry Weight Start Date: 08/13/22 Status: Ordered hydrOXYzine hydrochloride 10 mg oral tablet 3 tablet = 30 mg, By Mouth, 3 times a day, PRN NEEDED FOR ANXIETY, # 270 tablet, 3 Refills, Maintenance, 03/01/23 12:03:00 EDT, [facility]/pharmacy #[id number], 170, cm, 02/04/22 11:19:00 EDT, Height, 44.1, kg, 12/20/21 16:05:00 EST, Dry Weight Start Date: 03/01/23 Status: Ordered Lasix 40 mg oral tablet 40 mg, By Mouth, Daily, Refills 0, Maintenance, 07/20/23 13:55:00 EDT, Partial fill upon patient request if the prescription is for a schedule II opioid drug. Start Date: 07/20/23 Status: Ordered Metoprolol Succinate ER 25 mg oral tablet, extended release 2 tablet = 50 mg, By Mouth, Daily, # 30 tablet, 0 Refills, Maintenance, 05/27/23 12:28:00 EDT, ER Tablet, Partial fill upon patient request if the prescription is for a schedule II opioid drug. Start Date: 05/27/23 Status: Ordered multivitamin Multiple Vitamins oral capsule 1 capsule, By Mouth, Daily, # 90 capsule, 3 Refills, Maintenance, 12/16/22 9:12:00 EST, Capsule, [facility]/pharmacy #[id number], Partial fill upon patient request [...] Dry Weight Start Date: 05/27/23 Status: Ordered predniSONE 20 mg oral tablet 2 tablet = 40 mg, By Mouth, Daily, for 3 days, followed by by 30 mg prednisone daily for 3 days followed by 20 mg for 3 days followed by 10 mg for 5 days then stop, # 16 tablet, 0 Refills, Acute 07/23/23 13:53:00 EDT, 07/20/23 13:53:00 EDT, Tablet, Pa... Start Date: 07/20/23 Stop Date: 07/23/23 Status: Ordered sertraline 25 mg oral tablet [...] 30 capsule, 0 Refills, Maintenance, 06/24/23 19:50:00 EDT,[facility]/pharmacy #[id number], Partial fill upon patient request if the [...] tablet, 0 Refills, Maintenance, 06/23/23 17:30:00 EDT, [facility]/pharmacy #[id number], 170, cm, 04/19/23 7:05:00 EDT, Height, 45.2, kg,... Start Date: 06/23/23 Status: Ordered Ventolin HFA 108 mcg/inh inhalation aerosol with adapter 2 puffs, Inhalation, 4 times a day, PRN for wheezing, # 1 each, 0 Refills, Maintenance, 06/24/23 19:49:00 EDT, Aerosol, [facility]/pharmacy #[id number], 170, cm, 04/19/23 7:05:00 EDT, Height, 45.2, kg, 05/11/23 2:35:00 EDT, Dry Weight Start Date: 06/24/23 Status: Ordered Vitamin D3 1000 intl units oral capsule 1 capsule = 25 mcg, By Mouth, Daily, # 30 capsule, 11 Refills, Maintenance, 12/03/22 9:00:00 EST, Capsule, [facility]/pharmacy #[id number], Partial fill upon patient request [...] swelling Confirmed Active Abnormal TSH Confirmed Active Results Orders for Microbiology Reports Name Date Blood Culture 07/03/23 Microbiology Reports TEST:Blood Culture STATUS:Auth (Verified) BODY SITE: SOURCE:Blood COLLECTED DATE/TIME:07/03/23 4:04 AM Blood Culture SPECIMEN DESCRIPTION : BLOOD L HAND SPECIAL REQUESTS : NONE CULTURE : NO GROWTH 5 DAYS. REPORT STATUS : FINAL 07/08/2023 Radiology Reports * Exam Date Time Procedure Performing Provider Status 07/11/23 1:08 PM Chest Portable Ottoniel Farley; Aut h (Verified) Notes: (Chest Portable) Reason For Exam: COPD RESULT: Chest Portable Chest Portable INDICATION: Reason: COPD; Clinical Question(s): Pneumonia COMPARISON: 07/06/2023 FINDINGS: LINES AND TUBES: None. LUNGS AND PLEURA: Lung bases are partially obscured due to dense bilateral breast implant capsular calcifications. Interval increase in pulmonary vascular congestion and signs of developing interstitial pulmonary edema. Mild blunting of the left lateral costophrenic sulcus. HEART, MEDIASTINUM AND DEEPALI: Borderline enlargement of the cardiomediastinal silhouette. Aortic arch atherosclerotic calcification is present. BONES AND SOFT TISSUES: No acute abnormality IMPRESSION: Interval increase in pulmonary vascular congestion and signs of developing interstitialpulmonary edema Mild pleural thickening or fluid at the lateral left lung base WSN: [id number] Ordering Physician: Michelle Dhillon Dictated By: Tony Barnett Jr, MD Dictated Date/Time: 07/11/23 2:11 pm Reviewed By: Tony Barnett Jr, MD Signed By: Tony Barnett Jr, MD Signed Date/Time: 07/11/23 2:11 pm Transcribed By: VALENTIN Transcribed Date/Time: 07/11/23 2:09 pm * Exam Date Time Procedure Performing Provider Status 07/06/23 2:38 PM Chest Portable Ottoniel Farley; Auth (Verified) Notes: (Chest Portable) Reason For Exam: COPD RESULT: Chest Portable Chest Portable AP semiupright at 2:23 PM REASON: COPD; Clinical Question(s): Follow-Up Abnormal Exam / Follow-Up Abnormal Exam COMPARISON: 07/02/2023 FINDINGS: LINES AND TUBES: None. LUNGS AND PLEURA: Clear lungs. Normal pulmonary vascularity. Lung bases partially obscured by bilateral calcified breast implants. No pleural effusion. No pneumothorax. HEART, MEDIASTINUM AND DEEPALI: Heart is normal in size. Aorta is mildly calcified. BONES AND SOFT TISSUES: No acute abnormality. IMPRESSION: No evidence of acute abnormality. WSN: [id number] Ordering Physician: Arpan Wyatt Dictated By: Dominik Sutherland MD Dictated Date/Time: 07/06/23 3:32 pm Reviewed By: Dominik Sutherland MD Signed By: Dominik Sutherland MD Signed Date/Time: 07/06/23 3:32 pm Transcribed By: VALENTIN Transcribed Date/Time: 07/06/23 3:32 pm * Exam Date Time Procedure Performing Provider Status 07/02/23 12:35 PM Chest Portable Amisha Pace; Fred ( Verified) Notes: (Chest Portable) Reason For Exam: Shortness of Breath RESULT: Chest Portable Chest Portable Reason: Shortness of Breath; Clinical Question(s): CHF COMPARISON: 05/14/2023 FINDINGS: LINES AND TUBES: None. LUNGS AND PLEURA: Chronic findings of COPD. 9 mm nodule seen in the right lower lobe on prior CT dated 05/14/2023, notseen by radiographs. No pleural effusion. No pneumothorax. HEART, MEDIASTINUM AND DEEPALI: Heart is normal in size. Aorta is calcified. BONES AND SOFT TISSUES: No acute abnormality. Calcified breast implants. IMPRESSION: COPD. No acute radiographic process. WSN: [id number] Ordering Physician: Katerina Stephens Dictated By: Akhil Olsen MD Dictated Date/Time: 07/02/23 12:53 p Reviewed By: Akhil Olsen MD Signed By: Akhil Olsen MD Signed Date/Time: 07/02/23 12:53 pm Transcribed By: VALENTIN Transcribed Date/Time: 07/02/23 12:50 pm Vital Signs Most recent to oldest [Reference Range]: 1 2 3 Height 169 cm (07/09/23 6:06 PM) 169 cm (07/09/23 4:11 PM) 169 cm (07/05/23 8:25 AM) Weight 51.8 kg (07/14/23 8:38 PM) 46.8 kg (07/02/23 9:37 PM) Oxygen Saturation [94-100 %] 99 % (07/20/23 2:00 PM) 99 % (07/20/23 1:00 PM) 100 % (07/20/23 12:00 PM) Pulse Rate [55-90 bpm] 90 bpm (07/20/23 2:00 PM) 102 bpm *H* (07/20/23 10:00 AM) 71 bpm (07/20/23 8:38 AM) Body Mass Index [18.5-24.99 kg/m2] 16.39 kg/m2 *L* (07/02/23 9:37 PM) Blood Pressure [90-138/55-84 mm Hg] 145/93mm Hg *H* (07/20/23 2:00 PM) 131/81mm Hg (07/20/23 1:00 PM) 144/82mm Hg *H* (07/20/23 12:00 PM) Respiratory Rate [16-30 br/min] 25 br/min (07/20/23 2:00 PM) 27 br/min (07/20/23 1:00 PM) 23 br/min (07/20/23 12:00 PM) Temperature [96.8-100.4 DegF] 98.6 DegF (07/20/23 2:00 PM) 98.2 DegF (07/20/23 10:00 AM) 97.0 DegF (07/20/23 6:00 AM) Liters per Minute 3 L/min (07/20/23 2:00 PM) 3 L/min (07/20/23 10:00 AM) 3 L/min (07/20/23 6:00 AM) Mode of Delivery (Oxygen) Other: carias (07/20/23 2:00 PM) Other: carias (07/20/23 10:00 AM) Other: carias (07/20/23 6:00 AM) Blood pressure sites Leg, right (07/20/23 2:00 PM) Leg, right (07/20/23 10:00 AM) Leg, right (07/20/23 6:00 AM) Temperature Route Oral (07/20/23 2:00 PM) Oral (07/20/23 10:00 AM) Axillary (07/20/23 6:00 AM) Dry Weight 51.8 kg (07/14/23 8:38 PM) 46.8 kg (07/02/23 9:37 PM) Weight Obtained Via Bed scale (07/14/23 8:38 PM) Dry Weight Obtained Via Bed scale (07/14/23 8:38 PM) Social History Social History Type Response Tobacco Other: now smoking 1 .5 pack per day. Sex Note * Elizabeth Ferris RN: PERFORM Event Display: Discharge/Transfer Note Hospital Authored Date: [id number] Nursing Discharge Note Entered On: 07/20/2023 14:53 EDT Performed On: 07/20/2023 14:52 EDT by Elizabeth Ferris RN Nursing Discharge Note 2 Discharge Time : 07/20/2023 14:52 EDT Discharge Level of Care at Discharge : correction facility Discharge Nursing Homes/Rehab Facilities : [facility] Patient Left Unit Via : Ambulance Patient Accompanied Off Unit with : Ambulance/Chair Van Personnel Handover Given to Transport Personnel : Yes DC Instructions Provided & Signed by Pt : Yes Patient Understands D/C Instructions : Yes Patient Instructions Discharge Signed : Yes Did Pt have Specialty Bed or Wound Vac : No Elizabeth Ferris RN - 07/20/2023 14:52 EDT * Robert Meehan MD: PERFORM, MODIFY Event Display: Discharge/Transfer Note Hospital Authored Date: [id number] Patient: ??KATERINE NICOLE ? Age:??62 Years?Sex:??Female?:??1960?? Patient Information Discharge Location: [facility] Primary Care Physician: Graciela Nunez MD Admit Date/Time: 07/02/23 14:57 Discharge Disposition Discharge Disposition: Retirement Facility/Rehab Discharge Diagnosis Acute on chronic respiratory failure with hypoxia and hypercapnia (J96.21) Leukocytosis (D72.829) Hyponatremia (E87.1) COPD type A (J43.9) Pulmonary edema (J81.1) Respiratory failure (J96.90) ?? _ Discharge Medications Albuterol (Ventolin HFA 108 mcg/inh inhalation aerosol with adapter)?2?puff(s)?Inhalation?4 times a day?as needed?for wheezing Albuterol/Ipratropium (albuterol-ipratropium 3 mg-0.5 mg/3 ml inhalation solution)?BAND Nebulizer?4 times a day?as needed?Wheezing/Shortness of Breath apixaban (apixaban 5 mg oral tablet)?5?Milligram?By Mouth?2 times a day Aspirin (aspirin 81 mg oral delayed release tablet)?81?Milligram?1?tablet?By Mouth?Daily Atorvastatin (atorvastatin 20 mg oral tablet)?TAKE 1 TABLET BY MOUTH ONCE DAILY Baclofen (baclofen 10 mg oral tablet)?10?Milligram?1?tablet?By Mouth?2 times a day?as needed?for 14?Days?Pain , Moderate Budesonide-Formoterol (Symbicort 160mcg/4.5mcg Inhaler)?2?puff(s)?Inhalation?2 times a day Cholecalciferol (Vitamin D3 1000 intl units oral capsule)?1?capsule?25?Microgram?By Mouth?Daily Digoxin (digoxin 0.25 mg oral tablet)?0.25?Milligram?By Mouth?Daily Diltiazem (diltiazem 180 mg/24 hours oral capsule, extended release)?180?Milligram?By Mouth?Daily Docusate (docusate sodium 100 mg oral capsule)?TAKE 1 CAPSULE BY MOUTH 2 TIMES A DAY NEEDED FOR CONSTIPATION. FILLED AT [facility] Durable Medical Equipment (Wheelchair)?See Instructions?small sizewt: 100 [...] tablet)?1?Milligram?1?tablet?By Mouth?Daily Furosemide (Lasix 40 mg oral tablet)?40?Milligram?By Mouth?Daily Gabapentin (gabapentin 300 mg oral capsule)?2?capsule?By Mouth?3 times a day HydrOXYzine (hydrOXYzine hydrochloride 10 mg oral tablet)?3?tab(s)?30?Milligram?By Mouth?3 times a day?as needed? NEEDED FOR ANXIETY Lorazepam (Ativan 1 mg oral tablet)?1?Milligram?By Mouth?2 times a day?as needed?Anxiety?for 5?Days Metoprolol (Metoprolol Succinate ER 25 mg oral tablet, extended release)?2?tab(s)?50?Milligram?By Mouth?Daily Multivitamin (multivitamin Multiple Vitamins oral capsule)?1?capsule?By Mouth?Daily Nicotine?21?Milligram?Topically?Daily Pantoprazole (pantoprazole 40 mg oral delayed release tablet)?1?tab(s)?40?Milligram?By Mouth?Daily PredniSONE (predniSONE 20 mg oral tablet)?2?tab(s)?40?Milligram?By Mouth?Daily?for 3?Days?followed by by 30 mg prednisone daily for 3 days followed by 20 mg for 3 days followed by 10 mg for 5 days then stop Sertraline (sertraline 25 mg oral tablet)?TAKE 1 TABLET BY MOUTH EVERY DAY Tiotropium (Spiriva HandiHaler 18 mcg inhalation capsule)?1?capsule?18?Microgram?Inhalation?Daily?for 30?Days Tramadol (traMADol 50 mg oral tablet)?1?tab(s)?50?Milligram?By Mouth?3 times a day with meals?TAKE 1 TABLET BY MOUTH 3 TIMES A DAY FOR 7 DAYS NEEDED FOR PAIN ? Medications Started apixaban diltiazem lasix prednisone digoxin Allergies Allergies ?(Active and Proposed Allergies Only) Lyrica? (Severity: Unknown severity, Onset: Unknown) ?Reactions: increased depression morphine? (Severity: Unknown severity, Onset: Unknown) ?Reactions: respiratory depression codeine? (Severity: Moderate, Onset: Unknown) ?Reactions: Nausea, Rash sulfADIAZINE? (Severity: Moderate, Onset: Unknown) ?Reactions: Rash ? 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 On arrival to the ED, she had respiratory distress with retractions and tachypnea.?? She was not responding or following commands.?? She was placed on BiPAP and given a DuoNeb treatment.?? A bedside cardiac ultrasound showed diffuse B-lines with dilated IVC, so there was concern for flash pulmonary edema.?? The patient was initiated on a nitroglycerin drip transiently in the ED.?? She was noted tohave sinus tachycardia with a heart rate in the 120s to 130s.?? She was also treated with 125 mg ofIV Solu-Medrol, and given ceftriaxone and Zithromax.?? Initial ABG on this patient showed a pH of 7.19 with a PCO2 of 104, PO2 of 201, and bicarb of 39.?? Subsequent ABG after a couple of hours on BiPAP showed pH of 7.31, PCO2 of 84, PO2 of 136, and bicarb of 41.?? Her lab work was notable for an elevated white count of 20.5.?? Other labs were notable also for a low sodium of 117, low chloride of69, and bicarb of 38.?? BUN and creatinine were normal at 12 and 0.5.?? BNP was 21,925 and high-sensitivity troponin was 97.?? Portable chest x-ray done showed COPD with no other acute abnormality. she was then admitted to the [facility]??for admission of??acute??on chronic hypoxic hypercapnic respiratory failure requiring BiPAP.?? Hospitalization course was complicated with atrial fibrillation with a ventricular response which was difficult to control.?? She was initially started on Cardizem drip in addition to her home beta-juventino dosage.?? She was then??downgraded to the acute medical floor given her initial clinical improvement however??she was admitted back to the [facility] for bradycardia due to synergistic effect of metoprolol and Cardizem.?? Cardiology was consulted??and several medication adjustment??were tried while inpatient.?? Due to the??oscillatory??nature of HR. Cardizem drip was stopped??and she received a digoxin load.?? Eventually she required digoxin??125 mcg daily?? combined with??diltiazem??180 mg extended release capsule.?? Oxygen was slowly??titrated down back to??5 L (baseline). ??Heart rate remains pretty stable after??adjustment.?? She was monitored throughout the entire hospitalization telemetry.?? She is currently??she has been hemodynamically stable??for the past couple days. ??Discharge. ??Therefore, the patient be discharged in stable condition??to shelter facility with close follow-up appointment. Objective Assessment and Plan ? Measurements?? Height: 169 cm (07/09/23) Weight: 51.8 kg (07/14/23) Dry Weight: 51.8 kg (07/14/23) Body Mass Index:??16.39 kg/m2??Low (07/02/23) ? Vital Signs?? Temperature: 98.2 DegF (07/20/23 10:00:00) Temperature Route: Oral (07/20/23 10:00:00) Pulse Rate:??102 bpm??High (07/20/23 10:00:00) Heart Rate Monitored:??114 bpm??High (07/20/23 13:00:00) Respiratory Rate: 27 br/min (07/20/23 13:00:00) Systolic Blood Pressure: 131 mm Hg (07/20/23 13:00:00) Diastolic Blood Pressure: 81 mm Hg (07/20/23 13:00:00) Blood pressure sites: Leg, right (07/20/23 10:00:00) Pulse Pressure: 50 mm Hg (07/20/23 13:00:00) Oxygen Saturation: 99 % (07/20/23 13:00:00) Liters per Minute: 3 L/min (07/20/23 10:00:00) Mode of Delivery (Oxygen): Other: carias (07/20/23 10:00:00) Early Warning Score: 6 (07/20/23 13:33:09) SOFA Calculated: -1 (07/20/23 10:08:12) ? . Physical Exam ?Head EENT: Extraocular muscle movement intact.??Moist mucous membranes.?Respiratory: Expiratory wheeze with poor air entry. ?Cardiovascular: S1S2 irregular. No murmurs, air entry??bilateral??present but decreased, with??mild wheezing ?Gastrointestinal: Abdomen soft, non-tender, non-distended. ?Extremities: No lower extremity pitting??edema. No cyanosis or clubbing. ?Neurologic: AAOx3, Speech normal. No focal neurological deficits. _ Consultants cardiology Pending Results Add On Lab Order ordered on 07/02/2023 Add On Lab Order ordered on 07/05/2023 Add On Lab Order ordered on 07/11/2023 Basic Metabolic Panel ordered on 07/06/2023 Blood Gas Arterial ordered on 07/06/2023 Blood Gas Arterial ordered on 07/11/2023 Blood Gas Arterial ordered on 07/11/2023 Patient Instructions admitted with acute on chronic hypoxic respiratory failure, improved back to baseline HR was hard to control but you should be on Digoxin, diltiazem and metoprolol please follow up with your pcp in the next 1-2 weeks. Home Health Face to Face ^HomeHealth[facility]F Results Discharge Labs BLOOD COUNT & DIFF WBC 23.0 k/mm3 (High)?? 07/20/2023 00:52 RBC 3.46 m/mm3 (Low)?? 07/20/2023 00:52 Hgb 10.7 Gm/dL (Low)?? 07/20/2023 00:52 Hct 34.3 % (Low)?? 07/20/2023 00:52 MCV 99.1 femtoliters ()?? 07/20/2023 00:52 MCH 30.9 pg ()?? 07/20/2023 00:52 MCHC 31.2 g/dL (Low)?? 07/20/2023 00:52 Platelet Count 296 k/mm3 ()?? 07/20/2023 00:52 RDW-SD 45.7 femtoliters ()?? 07/20/2023 00:52 MPV 9.5 femtoliters ()?? 07/20/2023 00:52 Nucleated RBC (Automated) 0.1 #/100 WBC'S ()?? 07/20/2023 00:52 Abs. NRBC 0.0 k/mm3 ()?? 07/20/2023 00:52 Abs. Neut 16.9 k/mm3 (High)?? 07/07/2023 08:07 Abs. Lymph 0.8 k/mm3 ()?? 07/07/2023 08:07 Abs. [place] 1.4 k/mm3 (High)?? 07/07/2023 08:07 Abs. Eo 0.0 k/mm3 ()?? 07/07/2023 08:07 Abs. Baso 0.0 k/mm3 ()?? 07/07/2023 08:07 Neut % 87.6 % (High)?? 07/07/2023 08:07 Lymph % 4.1 % (Low)?? 07/07/2023 08:07 [place] % 7.4 % ()?? 07/07/2023 08:07 Eos % 0.1 % ()?? 07/07/2023 08:07 Baso % 0.1 % ()?? 07/07/2023 08:07 WBC Morphology FEW ()?? 07/03/2023 02:24 Hemoglobin (POC) POC Cartridge 11.6 Gm/dL (Low)?? 07/11/2023 19:42 Hematocrit (POC) POC Cartridge 34 % (Low)?? 07/11/2023 19:42 Imm Gran 0.7 % ()?? 07/07/2023 08:07 Abs. Imm Gran 0.1 k/mm3 ()?? 07/07/2023 08:07 ? BLOOD GAS pH (POC) POC Cartridge 7.34 (Low)?? 07/11/2023 19:42 pCO2 (POC) POC Cartridge 62.6 mm Hg (High)?? 07/11/2023 19:42 pO2 (POC) POC Cartridge 258 mm Hg (High)?? 07/11/2023 19:42 Estimated Bicarbonate (POC) POC Cart 33.7 mmol/L (High)?? 07/11/2023 19:42 % O2 Sat Arterial (POC) POC Cartridge 100 % ()?? 07/11/2023 19:42 FIO2 (POC) POC Cartridge 40 % ()?? 07/11/2023 14:28 Lactate, (POC) POC Cartridge 4.6 mmol/L (High)?? 07/11/2023 19:47 pH Venous (POC) POC Cartridge 7.15 (Low)?? 07/02/2023 12:21 pCO2 Venous (POC) POC Cartridge 127.5 mm Hg (High)?? 07/02/2023 12:21 pO2 Venous (POC) POC Cartridge 26 mm Hg (Low)?? 07/02/2023 12:21 Est Bicarbonate (POC) POC Cartridge 44.4 mmol/L (High)?? 07/02/2023 12:21 % O2 Sat Venous (POC) POC Cartridge 28 ()?? 07/02/2023 12:21 Base Excess (POC) POC Cartridge 8 ()?? 07/11/2023 19:42 pH 7.34 (Low)?? 07/06/2023 12:52 pCO2 79 mm Hg (Critical)?? 07/06/2023 12:52 pO2 170 mm Hg (High)?? 07/06/2023 12:52 Bicarbonate, Estimated 41 mmol/L (High)?? 07/06/2023 12:52 Specimen Type - Blood Gas ARTERIAL ()?? 07/11/2023 19:42 Percent O2 (FIO2) 44 ()?? 07/06/2023 12:52 ? CARDIAC Nt-Probnp 07428 pg/mL (High)?? 07/11/2023 21:58 High Sensitivity Troponin (HSTnT) 49 ng/L (High)?? 07/11/2023 20:05 ?? CHEM GENERAL Sodium 139 mmol/L ()?? 07/20/2023 00:52 Potassium 4.3 mmol/L ()?? 07/20/2023 00:52 Chloride 86 mmol/L (Low)?? 07/20/2023 00:52 Bicarbonate Level 49 mmol/L (Critical)?? 07/20/2023 00:52 Anion Gap 4 ()?? 07/20/2023 00:52 Sodium (POC) POC Cartridge 117 mmol/L (Critical)?? 07/11/2023 19:42 Potassium (POC) POC Cartridge 7.2 mmol/L (Critical)?? 07/11/2023 19:42 Glucose Level 235 mg/dL (High)?? 07/20/2023 00:52 Glucose (POC) POC Cartridge 206 (High)?? 07/11/2023 19:42 Glucose, POC 182 mg/dL (High)?? 07/06/2023 16:26 BUN 28 mg/dL (High)?? 07/20/2023 00:52 Creatinine-Blood 0.4 mg/dL (Low)?? 07/20/2023 00:52 Estimated GFR Creatinine 111 ML/MIN/1.73 M2 ()?? 07/20/2023 00:52 Osmolality 269 mOs/kg (Low)?? 07/11/2023 00:09 Calcium 9.2 mg/dL ()?? 07/20/2023 00:52 Calcium, Ionized pH Corrected 1.21 mmol/L ()?? 07/12/2023 05:32 Ionized Calcium (POC) POC Cartridge 1.14 mmol/L ()?? 07/11/2023 19:42 Phosphorus 4.7 mg/dL (High)?? 07/12/2023 00:57 Magnesium 1.9 mg/dL ()?? 07/20/2023 00:52 Protein, Total 4.6 Gm/dL (Low)?? 07/20/2023 00:52 Albumin 3.2 Gm/dL (Low)?? 07/20/2023 00:52 AG Ratio 2.3 ()?? 07/20/2023 00:52 Alkaline Phosphatase 151 units/L (High)?? 07/20/2023 00:52 AST (SGOT) 14 units/L ()?? 07/20/2023 00:52 ALT (SGPT) 146 units/L (High)?? 07/20/2023 00:52 Bilirubin, Total 0.2 mg/dL ()?? 07/20/2023 00:52 Lactate 2.5 mmol/L (High)?? 07/12/2023 00:57 Uric Acid 4.0 mg/dL ()?? 07/02/2023 12:46 C-Reactive Protein 0.8 mg/dL (High)?? 07/08/2023 06:55 ? COAG INR 1.2 (High)?? 07/12/2023 05:28 Protime (PT) 12.4 seconds (High)?? 07/12/2023 05:28 ?? ENDOCRINE/TUMOR MARKER TSH 1.42 uIU/mL ()?? 07/11/2023 21:58 ? MISC. CHEMISTRY Procalcitonin 0.06 ng/mL ()?? 07/11/2023 12:30 Hold Gel Top SPECIMEN DISCARDED AFTER 1 WEEK ()?? 07/12/2023 00:57 ?? UA/URINALYSIS Appear/Color, Urine LIGHT YELLOW ()?? 07/05/2023 16:45 Clarity CLEAR ()?? 07/05/2023 16:45 Specific [place], Urine 1.020 ()?? 07/05/2023 16:45 pH, Urine 7.0 ()?? 07/05/2023 16:45 Albumin, Urine TRACE ()?? 07/05/2023 16:45 Glucose, Urine 1+ (Abnormal)?? 07/05/2023 16:45 Ketones, Urine NEGATIVE ()?? 07/05/2023 16:45 Bilirubin, Urine NEGATIVE ()?? 07/05/2023 16:45 Hemoglobin, Urine NEGATIVE ()?? 07/05/2023 16:45 Nitrite, Urine NEGATIVE ()?? 07/05/2023 16:45 Leukocyte, Urine NEGATIVE ()?? 07/05/2023 16:45 Urobilinogen NORMAL mg/dL ()?? 07/05/2023 16:45 WBC's, Urine 1 /HPF ()?? 07/05/2023 16:45 RBC's, Urine 1 /HPF ()?? 07/05/2023 16:45 Bacteria SLIGHT HPF (Abnormal)?? 07/05/2023 16:45 Squamous Epith <1 /HPF ()?? 07/05/2023 16:45 Culture Indication CULTURE NOT INDICATED ()?? 07/05/2023 16:45 ? URINE OTHER Creatinine, Urine Random 69.2 mg/dL ()?? 07/11/2023 06:40 Sodium, Urine Random 45 mmol/L ()?? 07/12/2023 11:45 Potassium, Urine Random 31.2 mmol/L ()?? 07/11/2023 06:40 Chloride, Urine Random 74 mmol/L ()?? 07/12/2023 11:45 Urea Nitrogen, Urine Random 350.3 mg/dL ()?? 07/12/2023 11:45 Osmolality, Urine Random 337 mOsm/kg ()?? 07/12/2023 11:45 Uric Acid, Urine Random 25.9 mg/dL ()?? 07/12/2023 11:45 Malb/Creat Ratio 56.3 mg/Gm (High)?? 07/05/2023 16:45 Urine Creat For Micro Alb 25.6 mg/dL ()?? 07/05/2023 16:45 Micro-Albumin 14.0 mg/L ()?? 07/05/2023 16:45 Est Creatinine Clearance 116.19 mL/min ()?? 07/20/2023 01:58 ? VIROLOGY COVID-19 by RT-PCR NEGATIVE ()?? 07/02/2023 12:53 ? 45 minutes spent on discharge * Lauren Harp RN: PERFORM, SIGN, VERIFY Event Display: Case Management Discharge Plan Authored Date: Patient: KATERINE NICOLE Age: 62 years Sex: Female : 1960 Associated Diagnoses: None Author: Lauren Harp RN Discharge Plan Case Management Discharge Plan : Case Management Discharge Plan Data 07/20/2023 12:38 EDT Discharge Level of Care at Discharge correction facility Discharge Nursing Homes/Rehab Facilities [facility] Discharge Transportation Arranged [facility] [address] [place] [address] Discharge Arranged Transport Date/Time 07/20/2023 14:00 Mode of Transportation Arranged Ambulance Agency [facility] Intake Service Categories #1 Oxygen Therapy, Physical Therapy, Retirement Service Comments #1 You are being discharged to rehab at [facility]. Name of Person Notified of Transfer Pt. and family * Fly Shaikh RN: PERFORM Event Display: Procedures Invasive Line Authored Date: [id number] Vascular Access Insertion Entered On: 07/13/2023 13:07 EDT Performed On: 07/13/2023 13:03 EDT by Fly Shaikh RN Vascular Access Insertion Date of Vascular Access Insertion : 07/13/2023 EDT Procedure Location Vascular Access : SW5 Person recording insertion : Metallic Yarn Slitting Machine Operator Metallic Yarn Slitting Machine Operator of Vascular Access : Fly Shaikh RN Occupation of Vascular Access Metallic Yarn Slitting Machine Operator : Registered nurse Was utilization management um nurse a member of PICC/IV Team : Yes Fly Shaikh RN - 07/13/2023 13:03 EDT Fly Shaikh RN - 07/13/2023 13:03 EDT Procedural Comments Risk Factors and Labs Reviewed : Yes Fly Shaikh RN - 07/13/2023 13:10 EDT Anticoagulation Therapy : Yes Antiplatelet Therapy : No Was vascular access order placed : Yes Vascular Access Type : Other: Midline Time Out Performed : Yes Time Out Data : Patient identified, Site verified, Procedure verified, Consent signed, RN attendance Reason for Vascular Access Insertion : Medication requires use of vascular access Suspected Vascular Access Infection : No, the access was not exchanged over a guide wire Vascular Access Procedure Check : Consent obtained Hand Hygiene prior to insertion : Yes Maximal sterile barriers used : Mask, Sterile gown, Large sterile full body drape, Sterile gloves, Ultrasound sterile cover, Cap Sterile Field Maintained : Yes Skin Preparation : Chlorhexidine (CHG) Skin Prep dry at first skin puncture : Yes Antimicrobial coated catheter used : No Successful central line placement : Yes Vascular Access Catheter Type : Other: Midline Vascular Access Insertion Site : Other: Left upper basilic vein Vascular Access Insertion Side : Left Vascular Access Catheter Size : 3Fr Vascular Access Catheter Length : 15cm Vessel Identified By : Ultrasound Vascular Access Insertion Circumstance : Non-emergent Vascular Access Catheter Securement : Statlock Vascular Access Dressing : Occlusive Follow-up CXR : Not applicable CXR Comment : CXR not needed for midline placement Fly Shaikh RN - 07/13/2023 13:03 EDT DCP GENERIC CODE Suture needles : 0 [place] : 3 Scalpels : 1 Clamps : 0 Guide Wires : 1 Fly Shaikh RN 07/13/2023 13:03 EDT Complications during Insertion : None Tolerated CLIP procedure well : Yes Insertion Attempts : 1 Fly Shaikh RN - 07/13/2023 13:03 EDT Vascular Access Device QA : CT Provena Midline 3Fr Left arm @15cm Recommended PICC to MD Monahan, but wanted Midline. Fly Shaikh RN - 07/13/2023 13:10 EDT Vascular Access Device Lot Number : [id number] Vascular Access Device Code : [id number] Vascular Access Device Expiration Date : 07/01/2024 EDT Vascular Access Insertion Comments : Mid bicep circumference measured 10cm above AC: 20cm Midline okay to use Fly Shaikh RN - 07/13/2023 13:03 EDT * Event Display: Provider Clarification Note Please click on pdf link to open report * [facility] Sandy LUIS: PERFORM Event Display: Patient Education/Instruction Authored Date: [id number] Inpatient Adult Discharge Instructions [address] [address] Name: KATERINE NICOLE : 1960 Visit: 07/02/2023 14:57:00 Current Date: 07/05/2023 10:18 Account: [id number] Inpatient Adult Discharge Instructions We would like [...] and their families. Surveys are administered by [employer] ?? If further treatment with your primary care physician or another doctor is recommended, it is important for you to keep the appointment. Call your primary care physician or return to the Emergency Department immediately if your condition worsens, fails to improve, or new symptoms develop. If you need to find a doctor, you can call [facility] [employer] for a referral at [phone] or toll free at [phone]) or log in to [email or web address].. ?? [facility], in keeping with [facility] guidance, no longer requires face masks for [...] a health care noemi of your choosing. [email or web address] is a website that allows you to securely view your medical information including your hospital discharge summary, office visit summaries, medications and follow-up visits. You can also request appointments, renew medications, and request access to your medical information using a health care noemi of your choosing, or just ask a question. You can enroll at [email or web address] or register during your next office visit. You have been discharged from [facility], Patient Care Unit: SW5. If you have any questions regarding these instructions after you leave, please call us and we will be happy to assist you. [facility] Your Care Team Attending Physician Arpan Wyatt MD Consulting Providers Ramy Corona MD Discharging Providers Arpan Wyatt MD Reason for Admission see level one trauma sheet Your Diagnosis Respiratory failure COPD type A Pulmonary edema Acute on chronic respiratory failure with hypoxia and hypercapnia Leukocytosis Hyponatremia Tests Performed Below is a partial list of the tests performed during your hospitalization. You may have had other tests and procedures not included in this list. Please discuss all test results with your provider. ABG BASE EXCESS POC CARTRIDGE Basic Metabolic Panel BUN CALCIUM IONIZED POC CART CBC CBC w/ Differential COVID-19 (Novel Coronavirus), Rapid PCR Creatinine Electrolytes Glucose Level GLUCOSE POC CARTRIDGE HEMATOCRIT POC CARTRIDGE HEMOGLOBIN POC CARTRIDGE High??Sensitivity??Troponin T INR MAGNESIUM POTASSIUM POC CARTRIDGE ProBNP SODIUM POC CARTRIDGE Troponin T, High Sensitivity URIC ACID VBG POC CARTRIDGE XR Chest Portable Primary Care Provider Graciela Nunez MD Advance Directive Health Care Proxy on File Yes - Health Care Proxy Discharge Vitals Temperature: 98.2 DegF Height: 169 cm Pulse Rate:??100 bpm??High Weight: 46.8 kg Respiratory Rate: 19 br/min Body Mass Index:??16.39 kg/m2??Low Systolic Blood Pressure: 134 mm Hg Body surface area: 1.48 Diastolic Blood Pressure: 78 mm Hg ?? Oxygen Saturation:??93 %??Low ?? Studies Pending All tests and labs ordered during this hospital stay have been completed unless listed below. Please discuss all pending results with your provider listed above in these instructions. ?? Add On Lab Order (Lab Add On Order) Blood Culture Blood Gas Arterial (ABG) Osmolality Urine (Urine Osmolality) Sodium Urine (Urine Sodium) UA W/Reflex Culture & Renal What to do next Instructions From Your Doctor Discharge Orders Discharge Medications KATERINE NICOLE :1960 Visit Date:07/02/2023 Medications: Please continue your medications until treatment is completed or stopped by your provider. Medications not listed below should be discontinued. Discuss any questions related to medications with your provider. What How Much When Why Instructions Next Dose New Amoxicillin-Clavulanate (Augmentin 875 mg-125 mg oral tablet) 1 tab(s) Oral Every 12 hours Duration: 5 Days Pickup at [facility]/pharmacy #[id number] Today @9pm New PredniSONE (predniSONE 20 mg oral tablet) 2 tab(s) Oral Daily Duration: 5 Days Pickup at [facility]/pharmacy #[id number] Tomorrow (07/06) @9am Unchanged Albuterol (Ventolin HFA 108 mcg/ inh inhalation aerosol with adapter) 2 puff(s) Inhalation 4 times a day as needed for for wheezing Emphysema/COPD Resume previous schedule Unchanged Albuterol/ Ipratropium (albuterol-ipratropium 3 mg-0.5 mg/ 3 ml inhalation solution) BAND Nebulizer 4 times a day as needed for Wheezing/Shortness of Breath Resume previous schedule Unchanged Aspirin (aspirin 81 mg oral delayed release tablet) 1 tab(s) Oral Daily Resume previous schedule Unchanged Atorvastatin (atorvastatin 20 mg oral tablet) TAKE 1 TABLET BY MOUTH ONCE DAILY ?? Resume previous schedule Unchanged Baclofen (baclofen 10 mg oral tablet) 1 tab(s) Oral Twice a day as needed for Pain , Moderate Duration: 14 Days Resume previous schedule Unchanged Budesonide-Formoterol (Symbicort 160mcg/ 4.5mcg Inhaler) 2 puff(s) Inhalation Twice a day Resume previous schedule Unchanged Cholecalciferol (Vitamin D3 1000 intl units oral capsule) 1 capsule Oral Daily Resume previous schedule Unchanged Docusate (docusate sodium 100 mg oral capsule) TAKE 1 CAPSULE BY MOUTH 2 TIMES A DAY NEEDED FOR CONSTIPATION. FILLED AT [facility] ?? Resume previous schedule Unchanged Durable Medical Equipment (Compression Stockings) See instructions Edema leg surgical, knee length 20-30 mm Hg 2 pairs every 3 months Dx: edema ICD 10 code R 60.0 ?? 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 Resume previous schedule Unchanged Durable Medical Equipment (TOILET SEAT) See instructions DX: M19.90 OSTEOARTHRITIS USE ONCE DAILY WEIGHT 45.2KG HEIGHT 170CM ?? 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 Resume previous schedule Unchanged Durable Medical Equipment (Wheelchair) See instructions small size wt: 100 lbs ??ht: 5'7 ??lifetime need copd J44.9 ?? Resume previous schedule Unchanged Folic Acid (folic acid 1 mg oral tablet) 1 tab(s) Oral Daily Resume previous schedule Unchanged Gabapentin (gabapentin 300 mg oral capsule) 2 capsule Oral 3 times a day Resume previous schedule Unchanged HydrOXYzine (hydrOXYzine hydrochloride 10 mg oral tablet) 3 tab(s) Oral 3 times a day as needed for NEEDED FOR ANXIETY Resume previous schedule Unchanged Lorazepam (LORazepam 0.5 mg oral tablet) 1 tab(s) Oral Twice a day as needed for as needed for anxiety Duration: 7 Days FOLLOW UP WITH YOUR PSYCHIATRY MED PROVIDER FOR ANXIETY MANAGEMENT ?? Resume previous schedule Unchanged Metoprolol (Metoprolol Succinate ER 25 mg oral tablet, extended release) 1 tab(s) Oral Daily Resume previous schedule Unchanged Multivitamin (multivitamin Multiple Vitamins oral capsule) 1 capsule Oral Daily Resume previous schedule Unchanged Nicotine 21 Milligram Topically Daily Resume previous schedule Unchanged Pantoprazole (pantoprazole 40 mg oral delayed release tablet) 1 tab(s) Oral Daily Resume previous schedule Unchanged Sertraline (sertraline 25 mg oral tablet) TAKE 1 TABLET BY MOUTH EVERY DAY ?? Resume previous schedule Unchanged Tiotropium (Spiriva HandiHaler 18 mcg inhalation capsule) 1 capsule Inhalation Daily Duration: 30 Days Resume previous schedule Unchanged Tramadol (traMADol 50 mg oral tablet) 1 tab(s) Oral 3 times a day with meals TAKE 1 TABLET BY MOUTH 3 TIMES A DAY FOR 7 DAYS NEEDED FOR PAIN ?? Resume previous schedule Pharmacy Information [id number]: [address], [place] [id number] [phone] Test Results Below is a partial list of the most recent Laboratory test results done prior to this discharge. You may have had other tests and procedures not included in this list. Please discuss all test resultswith your provider. Est Creatinine Clearance - 139.97 mL/min (07/04/2023) ABG (07/03/2023) ???pH - 7.45???pCO2 - 59 mm Hg???pO2 - 65 mm Hg???Bicarbonate, Estimated - 41 mmol/L???Specimen Type - Blood Gas - ARTERIAL???Percent O2 (FIO2) - 30 BASE EXCESS POC CARTRIDGE (07/02/2023) ???Base Excess (POC) POC Cartridge - 16 Basic Metabolic Panel (07/04/2023) ???Sodium - 127 mmol/L???Potassium - 3.8 mmol/L???Chloride - 82 mmol/L???Bicarbonate Level - 37 mmol/L???Anion Gap - 8???Glucose Level - 192 mg/dL???BUN - 26 mg/dL???Creatinine-Blood - 0.3 mg/dL???Estimated GFR Creatinine - 118 ML/MIN/1.73 M2???Calcium - 9.7 mg/dL BUN (07/02/2023) ???BUN - 12 mg/dL CALCIUM IONIZED POC CART (07/02/2023) ???Ionized Calcium (POC) POC Cartridge - 1.20 mmol/L CBC (07/04/2023) ???WBC - 26.1 k/mm3???RBC - 3.75 m/mm3???Hgb - 11.7 Gm/dL???Hct - 33.6 %???MCV - 89.6 femtoliters???MCH - 31.2 pg???MCHC - 34.8 g/dL???Platelet Count - 294 k/mm3???RDW-SD - 37.3 femtoliters???MPV - 9.5 femtoliters???Nucleated RBC (Automated) - 0.0 #/100 WBC'S???Abs. NRBC - 0.0 k/mm3 CBC w/ Differential (07/03/2023) ???WBC - 26.0 k/mm3???RBC - 3.75 m/mm3???Hgb - 11.7 Gm/dL???Hct - 32.8 %???MCV - 87.5 femtoliters???MCH - 31.2 pg???MCHC - 35.7 g/dL???Platelet Count - 331 k/mm3???RDW-SD - 36.5 femtoliters???MPV - 9.0 femtoliters???Nucleated RBC (Automated) - 0.0 #/100 WBC'S???Abs. NRBC - 0.0 k/mm3???Abs. Neut - 24.0 k/mm3???Abs. Lymph - 0.3 k/mm3???Abs. [place] - 1.5 k/mm3???Abs. Eo - 0.0 k/mm3???Abs. Baso - 0.0 k/mm3???Neut % - 92.2 %???Lymph % - 1.2 %???[place] % - 5.7 %???Eos % - 0.1 %???Baso % - 0.1 %???WBC Morphology - FEW???Imm Gran - 0.7 %???Abs. Imm Gran - 0.2 k/mm3 COVID-19 (Novel Coronavirus), Rapid PCR (07/02/2023) ???COVID-19 by RT-PCR - NEGATIVE Creatinine (07/02/2023) ???Creatinine-Blood - 0.5 mg/dL???Estimated GFR Creatinine - 103 ML/MIN/1.73 M2 Electrolytes (07/02/2023) ???Sodium - 117 mmol/L???Potassium - 4.7 mmol/L???Chloride - 69 mmol/L???Bicarbonate Level - 38 mmol/L???Anion Gap - 10 Glucose Level (07/02/2023) ???Glucose Level - 97 mg/dL GLUCOSE POC CARTRIDGE (07/02/2023) ???Glucose (POC) POC Cartridge - 110 HEMATOCRIT POC CARTRIDGE (07/02/2023) ???Hematocrit (POC) POC Cartridge - 42 % HEMOGLOBIN POC CARTRIDGE (07/02/2023) ???Hemoglobin (POC) POC Cartridge - 14.3 Gm/dL High??Sensitivity??Troponin T (07/02/2023) ???High Sensitivity Troponin (HSTnT) - 97 ng/L INR (07/02/2023) ???INR - 1.1???Protime (PT) - 11.4 seconds MAGNESIUM (07/04/2023) ???Magnesium - 1.7 mg/dL POTASSIUM POC CARTRIDGE (07/02/2023) ???Potassium (POC) POC Cartridge - 4.2 mmol/L ProBNP (07/02/2023) ???Nt-Probnp - 89948 pg/mL SODIUM POC CARTRIDGE (07/02/2023) ???Sodium (POC) POC Cartridge - 113 mmol/L Troponin T, High Sensitivity (07/03/2023) ???High Sensitivity Troponin (HSTnT) - 48 ng/L URIC ACID (07/02/2023) ???Uric Acid - 4.0 mg/dL VBG POC CARTRIDGE (07/02/2023) ???pH Venous (POC) POC Cartridge - 7.15???pCO2 Venous (POC) POC Cartridge - 127.5 mm Hg???pO2 Venous (POC) POC Cartridge - 26 mm Hg???Est Bicarbonate (POC) POC Cartridge - 44.4 mmol/L???% O2 Sat Venous (POC) POC Cartridge - 28???Specimen Type - Blood Gas - VENOUS Allergies (NKA means No Known Allergies) codeine??(Rash, Nausea) sulfADIAZINE??(Rash) Lyrica??(increased depression) morphine??(respiratory depression) Problems Active Problems??(24) Abnormal TSH?? Anxiety?? At risk for falls?? Bradycardia?? Breast pain?? Cervical radiculopathy?? Chronic respiratory failure with hypoxia?? Compression fracture of lumbar vertebra?? Compression fracture of spine?? Constipation?? End stage COPD?? Hyperlipidemia?? Hyponatremia?? Leg swelling?? Lung nodule?? Osteoporosis?? Paroxysmal atrial flutter?? Peripheral neuropathy?? Pulmonary nodule?? Raynaud's phenomenon?? Rectal bleed?? Severe obesity (BMI 35.0-39.9) with comorbidity?? T12 compression fracture?? Thoracic compression fracture?? Education Materials Below is the list of Educational Leaflet Providered with your Discharge Instructions. Valuables and Belongings I fully understand and agree that [facility] accepts no responsibility for all my [...] Review of Valuable and Belonging List: With patient Date for Pt to Sign Valuables/Belongings: 07/02/23 23:22:00 ?? Other Discharge Information ? Pulmonary Rehab Status?? Pulmonary Rehab Discharge Status?? CPAP/BiPAP Mask Type: Full CPAP/BiPAP Mask Size: Small Respiratory Rate: 19 br/min ? Common Emergency Awareness Tips IS [...] are strongly encouraged to quit. Please call [facility] [employer] [facility] at [phone] or [phone] ([phone] or log in to [email or web address] for referrals to smoking cessation programs. ?? 677 Suicide & Crisis Lifeline is available 24/05 if you or someone you know needs to find a reason to keep living. By calling 927 you'll be connected to a skilled, trained counselor at a crisis center in your area. INPATIENT DISCHARGE INSTRUCTIONS SIGNATURE PAGE BONNIEFIDELZEB Location:[facility] Registration Date and Time:07/02/2023 14:57 EDT Primary Care Physician: Mayra ORTIZ, Graciela Lares, Attending Physician: Yoselin ORTIZ, KATERINE Lawson, have received the above patient education materials/instructions and have verbalized understanding. If ambulance or transport services are being used I further acknowledge being given a choice of service. ?? If you need to contact me, please call me at this number: . Patient/Payroll Auditor Name: Patient/Payroll Auditor Signature: Relationship to Patient: Witness Name/Signature: Date: Consult note * Zoey Grace RN: VERIFY, PERFORM, SIGN Event Display: Consultation Note Authored Date: Patient: KATERINE NICOLE Age: 62 years Sex: Female : 1960 Associated Diagnoses: None Author: Zoey Grace RN History of Presenting Problem History of Presenting Problem Date of Service 07/20/2023 Reason for referral Pressure ulcer: Description Location: sacrum Etiology: stage 3 pressure injury Description: full thickness skin loss; dixon and yellow slough marbled with pink and red, viable tissue Measurements: not assessed Drainage: none Odor: n/a Edges: regular; defined; attached Periwound: nonblanchable erythema Pain: not assessed Goal of treatment: autolytic debridement; protect from moisture and friction . sacrum Received wound RN consult to assess perineal wound and provide appropriate topical wound care recommendations. Patient admitted to [facility] due to respiratory distress and AMS. She has a PMH significantfor COPD, chronic hypoxemia, HLD< paroxysmal afib, peripheral neuropathy and hyponatremia Uploaded image assessed and chart review performed. Description of wound above is made in collaboration utilizing both. [employer] message sent to Dr Meehan Of note, patient has a f/c in place but is incontinent of stool Recommendations: 1. coccyx- Cleanse with ph balanced skin cleanser and pat dry. Apply thin layer Triad to wound bed daily. Reapply after periods of incontinence. 2. Continue use of low air loss [...] wound/skin status. Plan Recommendations Nutrition Plan Consult Ship Keeper Maximize nutritional support Mobility Raul Score : Raul Score 07/20/2023 10:20 EDT Raul Score 17 07/19/2023 11:43 EDT Raul Score 17 Eliminate heel pressure Turn & reposition every 2-4 hours Low air loss bed in pressure relief settings Justine soft chair cushion Moisture Management Incontinence care Friction/Sheer Interventions Minimize sheer forces by lifting Utilize draw sheet or transfer board Patient Teaching * René ORTIZ, Nafisa Saez: PERFORM Event Display: Consultation Note Authored Date: [id number] Patient: ??KATERINE NICOLE ? Age:??62 Years?Sex:??Female?:??1960?? History of Present Illness/Interval History ??62-year-old lady with chronic respiratory failure and COPD on 6 L home oxygen, current smoker, CHF, A-fib, multiple admissions for respiratory failure and COPD who is admitted to hospital with acute on chronic respiratory failure, hypercarbia and altered mental status ?? While in the hospital she has had issues of A-fib with RVR and following treatment with AV camilo blockers including beta-juventino and calcium channel juventino has had heart block and bradycardia.?? Currently in A-fib with RVR heart rate in 140s.?? She denies palpitation.?? According to nursing staff her mental status improved.?? Currently in the process of starting IV Cardizem infusion.?? Beta-juventino discontinued.?? She is also receiving IV Lasix 40 mg twice daily. ?? Echocardiogram from March shows mild LV dysfunction with EF of 40 to 45%, RV has normal size and function, mild to moderate aortic regurgitation ?? Chest x-ray shows some consolidation and congestion ?? Labs are significant for leukocytosis of 24,000, hemoglobin 9.8, sodium 132, potassium 4, creatinine 0.5, ALT around 2000, AST of 477, NT proBNP of 14,000 EKG from July 05 was in sinus tachycardia with deep T wave inversions in anterolateral leads.??Of note patient denies having chest pain. Review of Systems All systems reviewed and negative except as in HPI Physical Exam Vitals & Measurements T:??97.9?F?? HR:??142??(Peripheral)?? RR:??20?? BP:??151/71?? SpO2:??100%?? HT:??169??cm?? WT:??46.8??kg?? BMI:??16.39?? Weight lb/oz: 103 lb 3 oz HEENT:?pale conjunctivae.?No jaundice.? Mouth: Dry mucous membranes.? Neck: carotid pulses symmetrical.? Cardiac:??Irregularly irregular??and tachycardic,??JVD, no significant murmur Chest: Reduced breathing sound bilaterally Abdomen: soft, nontender, bowel sounds present.? Peripheral exam:??No significant peripheral edema Assessment/Plan 1.??Acute on chronic respiratory failure with hypoxia and hypercapnia 2.??Leukocytosis 3.??Hyponatremia COPD type A (Provisional) Pulmonary edema (Provisional) Respiratory failure (Provisional) ??62-year-old lady with chronic respiratory failure and end-stage??COPD on 6 L home oxygen, currentsmoker, CHF, A-fib, multiple admissions for respiratory failure and COPD who is admitted to hospital with acute on chronic respiratory failure, hypercarbia and altered mental status ?? Acute on chronic respiratory failure COPD exacerbation CHF with??LVEF of 40 to 45% A-fib with RVR and bradycardia??following AV camilo juventino therapy ?? Currently patient is in A-fib with RVR. Agree with diltiazem infusion considering prior issues with bradycardia and also poor respiratory condition??due to??airway disease .?? she has mild cardiomyopathy, I suspect most of her respiratory failure is due to her lung condition. She needs pulmonary consultation ?? Thank you for allowing us to participate in her care Allergies codeine??(Rash, Nausea) sulfADIAZINE??(Rash) Lyrica??(increased depression) morphine??(respiratory depression) Home Medications Albuterol: 2 puffs, Inhalation, 4 times a day, PRN (for wheezing) Albuterol/Ipratropium: BAND Nebulizer, 4 times a day, PRN (Wheezing/Shortness of Breath) Aspirin: 81 mg = 1 tablet, By Mouth, Daily Atorvastatin: TAKE 1 TABLET BY MOUTH ONCE DAILY Baclofen: 10 mg = 1 tablet, By Mouth, 2 times a day, PRN (Pain , Moderate) Budesonide-Formoterol: 2 puffs, Inhalation, 2 times a day Cholecalciferol: 25 mcg = 1 capsule, By Mouth, Daily Docusate: TAKE 1 CAPSULE BY MOUTH 2 TIMES A DAY NEEDED FOR CONSTIPATION. 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 Ht: 170 cmWt: 48.5 kgLife time Folic Acid: 1 mg = 1 tablet, By Mouth, Daily Gabapentin: 2 capsule, By Mouth, 3 times a day HydrOXYzine: 30 mg = 3 tablet, By Mouth, 3 times a day, PRN ( NEEDED FOR ANXIETY) Metoprolol: 25 mg = 1 tablet, By Mouth, Daily Multivitamin: 1 capsule, By Mouth, Daily Nicotine: 21 mg, Topically, Daily Pantoprazole: 40 mg = 1 tablet, By Mouth, Daily Sertraline: TAKE 1 TABLET BY MOUTH EVERY DAY Tiotropium: 18 mcg = 1 capsule, Inhalation, Daily Tramadol: 50 mg = 1 tablet, By Mouth, 3 times a day with meals, TAKE 1 TABLET BY MOUTH 3 TIMES A DAY FOR 7 DAYS NEEDED FOR PAIN Hospital Medications Medications (32) Active SCHEDULED: (22) Albuterol 0.083% Inhalation Solution (Albuterol 0.083% inhalation sophia) ??2.5 mg 3 mL, BAND Nebulizer, 4 times a day Aspirin 81 mg EC Tablet (Aspirin Tablet) ??81 mg, By Mouth, Daily Atorvastatin 20 mg Tablet (atorvastatin 20 mg oral tablet) ??20 mg, By Mouth, Daily at bedtime Breo Ellipta 200 mcg / 25 mcg Inhaler (Breo Ellipta 200 mcg-25 mcg Inhaler) ??1 puffs, Inhalation, Daily Diltiazem 120 mg/24 hour CD Capsule (Cardizem CD 120 mg/24 hours oral capsule, extended release) ??120 mg, By Mouth, Daily Enoxaparin 40 mg Inj (Enoxaparin Inj) ??40 mg 0.4 mL, Subcutaneous Injection, Daily Folic Acid 1 mg Tablet (folic acid 1 mg oral tablet) ??1 mg, By Mouth, Daily Furosemide Inj (Lasix ??Inj) ??40 mg 4 mL, IV Push Slowly, 2 times a day Gabapentin 300 mg Capsule (gabapentin 300 mg oral capsule) ??600 mg, By Mouth, 3 times a day Lidocaine 5% Topical Patch (Lidocaine 5% Patch) ??1 each, Topically, Daily MethylPREDNISolone Sodium Succinate 40 mg Inj (SoluMedrol Inj) ??60 mg, IV Push Slowly, Daily in AM Multivitamin Tablet ??1 tablet, By Mouth, Daily NaCl 0.9% Flush 3ml (NaCL 0.9% Flush) ??3 mL, IV Push, Every 8 hours Nicotine 21 mg / 24 hour Patch (Nicotine Topical) ??21 mg, Topically, Daily Nicotine 21 mg / 24 hour Patch (Nicotine Topical) ??21 mg, Topically, Daily Pantoprazole 40 mg EC Tablet (pantoprazole 40 mg oral delayed release tablet) ??40 mg, By Mouth, Daily Remove Patch (Remove ??Patch) ??1 each, Topically, Daily Remove Patch (Remove ??Patch) ??1 each, Topically, Daily Remove Patch (Remove Lidocaine Patch) ??1 each, Topically, Daily at bedtime Sertraline 25 mg Tablet (sertraline 25 mg oral tablet) ??25 mg, By Mouth, Daily Spiriva Respimat 2.5 mcg Inhaler (Spiriva Respimat Inhaler) ??2 puffs, Inhalation, Daily Vitamin D 1000 IU Tablet (Cholecalciferol Tablet) ??1,000 International_Units, By Mouth, Daily CONTINUOUS: (1) Diltiazem 125 mg/D5W (125 mL) 125 mg (Cardizem 125 mg/125 mL D5W 125 mg) ??125 mg 125 mL, IV Infusion PRN: (9) Albuterol/Ipratropium Inhalation Sophia 3mL (Duoneb Inhalation Solution) ??1 vials, BAND Nebulizer, Every 4 hours Baclofen 10 mg Tablet (baclofen 10 mg oral tablet) ??10 mg, By Mouth, 2 times a day Dextromethorphan-Guaifenesin 20 mg-200 mg/10 mL Liqu UD (Robitussin DM Liquid) ??10 mL, By Mouth, Every 4 hours Docusate Sodium 100 mg Capsule (docusate sodium 100 mg oral capsule) ??100 mg 1 capsule, By Mouth, 2 times a day Lorazepam 2 mg Inj Syringe (LORazepam Inj) ??0.5 mg, IV Push Slowly, Every 6 hours Melatonin 3 mg Tablet (Melatonin Tablet) ??3 mg, By Mouth, Daily at bedtime NaCl 0.9% Flush 3ml (NaCL 0.9% Flush) ??3 mL, IV Push, Every 8 hours Polyethylene Glycol 17 Gm Powder (MiraLax Powder) ??17 Gm 1 pack/packet, By Mouth, Daily Simethicone 80 mg Chewable Tablet (Simethicone Tablet) ??80 mg, Chew, 3 times a day Lab Results Cardiology Labs WBC:??24.6 k/mm3??High (07/13/23) RBC:??3.19 m/mm3??Low (07/13/23) Hgb:??9.8 Gm/dL??Low (07/13/23) Hct:??29.7 %??Low (07/13/23) MCV: 93.1 femtoliters (07/13/23) MCH: 30.7 pg (07/13/23) MCHC: 33 g/dL (07/13/23) Platelet Count: 223 k/mm3 (07/13/23) RDW-SD: 42.6 femtoliters (07/13/23) Nucleated RBC (Automated): 0 #/100 WBC'S (07/13/23) Abs. Neut:??16.9 k/mm3??High (07/07/23) Abs. Lymph: 0.8 k/mm3 (07/07/23) Abs. [place]:??1.4 k/mm3??High (07/07/23) Abs. Eo: 0 k/mm3 (07/07/23) Abs. Baso: 0 k/mm3 (07/07/23) Neut %:??87.6 %??High (07/07/23) [place] %: 7.4 % (07/07/23) Eos %: 0.1 % (07/07/23) Baso %: 0.1 % (07/07/23) Imm Gran: 0.7 % (07/07/23) Abs. Imm Gran: 0.1 k/mm3 (07/07/23) INR:??1.2??High (07/12/23) Protime (PT):??12.4 seconds??High (07/12/23) Sodium:??132 mmol/L??Low (07/13/23) Potassium: 4 mmol/L (07/13/23) Chloride:??84 mmol/L??Low (07/13/23) Bicarbonate Level:??36 mmol/L??High (07/13/23) Glucose Level:??223 mg/dL??High (07/13/23) BUN:??32 mg/dL??High (07/13/23) Creatinine-Blood: 0.5 mg/dL (07/13/23) Calcium: 8.6 mg/dL (07/13/23) Protein, Total:??4.2 Gm/dL??Low (07/13/23) Albumin:??2.7 Gm/dL??Low (07/13/23) Alkaline Phosphatase:??153 units/L??High (07/13/23) AST (SGOT):??477 units/L??High (07/13/23) ALT (SGPT):??1958 units/L??High (07/13/23) Bilirubin, Total: 0.2 mg/dL (07/13/23) Nt-Probnp:??29320 pg/mL??High (07/11/23) TSH: 1.42 uIU/mL (07/11/23) Free T4: 1.25 ng/dL (05/19/23) Diagnostic Impression CT CT Angio Abdomen and Pelvis ?? 15:43:12 IMPRESSION: 1. Limited evaluation for active gastrointestinal hemorrhage within the gastric body and within sigmoid colonic diverticula due to pre-existing hyperdense material throughout these regions on noncontrast images. Within these constraints, no active gastrointestinal hemorrhage identified. 2. Severe sigmoid colonic diverticulosis. 3. Large volume retained fecal material throughout right colon. 4. Moderate aortic atherosclerosis, including suprarenal ulcerated plaque. 5. Unchanged vertebral body compression fractures. ? WSN: [id number] ? Ordering Physician: Graciela Nunez ?? Signed By: Cj Salazar MD ECG ECG 12-Lead ?? 19:48:42 Ventricular Rate: 32 BPM Atrial Rate: 326 BPM QRS Duration: 96 ms Q-T Interval: 454 ms QTC Calculation(Bazett): 331 ms R [place]: -15 degrees T [place]: 226 degrees Poor data quality, interpretation may be adversely affected Junctional bradycardia Inferior infarct , age undetermined ST and Marked T wave abnormality, consider anterior ischemia Abnormal ECG When compared with ECG of 11-JUL-2023 10:55, Poor data quality in current ECG precludes serial comparison Junctional rhythm has replaced Sinus rhythm Vent. rate has decreased BY 40 BPM Inferior infarct is now Present T wave inversion no longer evident in Lateral leads QT has shortened Confirmed by ASHER AC MD ([id number]) on 07/13/2023 8:42:19 AM ?? [place]: ASHER AC MD ?? Signed By: Asher Ac MD ?? ECG 12-Lead ?? 19:48:42 Please click on pdf link to open report ?? Signed By: Asher Ac MD Echo Echocardiogram - Complete ?? 10:28:19 Summary The left ventricular size is normal. Left ventricular wall thickness is normal. The LV systolic function is mildly reduced . The left ventricular ejection fraction is 40-45 %. There is diffuse hypokinesis without regional wall motion abnormalities. Unable to assess diastolic function due to E/A fusion . The right ventricle is normal in size. Right ventricular systolic function appears preserved. The left atrium is moderately dilated. The aortic valve is poorly visualized. There is no evidence of aortic stenosis. There is mild to moderate aortic regurgitation. There is mild mitral annular calcification. The mitral valve chordal apparatus is mildly thickened. The mitral valve appears mildly thickened. There is trace to mild mitral regurgitation. There is no significant mitral stenosis. An accurate pulmonary artery pressure could not be obtained. ?? Comparison Comparison is made to the study of November 03, 2021. Left ventricular systolic function is unchanged since previous study. Worsened aortic regurgitation since previous study. ?? Signature ?? Signed By: Shubham Rzizo MD Problem List/Past Medical History Ongoing Abnormal TSH Anxiety At risk for falls Bradycardia Breast pain Cervical radiculopathy Chronic respiratory failure with hypoxia Compression fracture of lumbar vertebra Compression fracture of spine Constipation End stage COPD Hyperlipidemia Hyponatremia Leg swelling Lung nodule Osteoporosis Paroxysmal atrial flutter Peripheral neuropathy Pulmonary nodule Raynaud's phenomenon Rectal bleed Severe obesity (BMI 35.0-39.9) with comorbidity T12 compression fracture Thoracic compression fracture Procedure/Surgical History Hysterectomy Osteopetrosis Breast implant Social History Alcohol Use: Never. Exercise Regular exercise: No. Nutrition/Health Caffeine intake amount: 2 CUPS DAILY. Substance Abuse Use: Never. Tobacco Other: now smoking 1.5 pack per day. Family History Mother: Cancer of lung Father: Brain tumor ? 09-MAR-2015 22:20:40<$> Other: Hypertension Sister: Cancer of colon * Ludwig DO, Elizabeth A: MODIFY, SIGN, VERIFY, MODIFY, SIGN, PERFORM, MODIFY Event Display: Consult Authored Date: [id number] Patient: KATERINE NICOLE Age: 62 years Sex: Female : 1960 Associated Diagnoses: None Author: Elizabeth Munroe DO A 62-year-old female with a history of end-stage COPD on 6 L home O2, heart failure with mildly reduced EF, atrial flutter, multiple admissions for COPD and current tobacco use who presents with respiratory distress and altered mental status in the setting of hypercarbia. Patient was receiving management for COPD. She was also found to be significantly hyponatremic. Elevated NT proBNP 21,925. Her hospital course had been complicated by A-fib with RVR for which she received diltiazem 360 mg as well as home metoprolol XL 200 mg. Unfortunately during the day on 07/11 the patient had worsening respiratory status, worsening hypercarbia. Her respiratory status was quite tenuous despite IVAPS and epinephrine was given for airflow.She became hypotensive at some point and was treated with a total of 1.5 L of IV fluids throughout the day on 07/11. She then was found to have hyperkalemia, bradycardia into the 30s as well as SAKINA. Her hyperkalemia was treated appropriately. Repeat labs demonstrated lactic acidosis, elevated LFTs, persistent hyponatremia. Her chest x-ray was concerning for development of pulmonary edema. She received IV Lasix 40 mg. She also received glucagon for beta juventino toxicity concerns. Her bradycardia did improve to the 50s and her BP responded as well. Her LFTs continue to uptrend. She made 500 cc of urine with 40 mg of IV furosemide. Her lactate did improve and she remained hemodynamically stable. Her exam was consistent with CHF with elevated JVD and crackles. Etiology of bradycardia and shock is likely due to high doses of diltiazem and metoprolol as well as IVF in the setting of HF. Transaminitis likely secondary to congestive hepatopathy and/or ischemiain the setting of hemodynamic insult and heart failure. Recommendations: ??? Diuresis with IV Lasix ??? Avoid AV camilo blocking agents, especially beta-blockers in the setting of acute decompensated heart failure, concern for brash syndrome???allow washout of medications ??? Trend liver enzymes, lactate, renal function ??? Goals of care as patient is still full code, has had multiple admissions for COPD exacerbations, continues to smoke and is extremely cachectic and malnourished ??? No current indication for CCU admission Patient discussed with attending Dr. Andrade. * Poly ORTIZ, LutherKvng: MODIFY Event Display: Consultation Note Authored Date: [id number] CONSULTATION DATE: 07/11/2023 RENAL CONSULTATION HISTORY OF PRESENT ILLNESS: This is a 62-year-old patient with a prior history of hyponatremia and underlying COPD, who developed acute hyponatremia with simultaneous respiratory failure requiring noninvasive ventilation. The patient has been complaining of a productive cough with white phlegm and became acutely short of breath and a chest x-ray was ordered and showed evidence for interstitial pulmonary edema with pulmonary vascular congestion. The patient known to have a left ventricular ejection fraction in the range of 40-45% and at the time of the consultation, she is on BiPAP. PAST MEDICAL HISTORY: Remarkable for chronic hyponatremia, end-stage COPD, congestive heart failure, dyslipidemia, paroxysmal atrial flutter, peripheral neuropathy, multiple compression fractures, history of GI bleed, Raynaud's phenomenon, pulmonary nodule, osteoporosis, cervical radiculopathy, anxiety, hysterectomy, osteoporosis. PAST SURGICAL HISTORY: Notable for breast implant and hysterectomy. CURRENT MEDICATIONS: Include albuterol, aspirin, atorvastatin, azithromycin, ceftriaxone, diltiazem, enoxaparin, gabapentin, metoprolol, pantoprazole. ALLERGIES: She is allergic to CODEINE, SULFADIAZINE, LYRICA, MORPHINE. SOCIAL HISTORY: She is a smoker. FAMILY HISTORY: Negative for kidney disease. REVIEW OF SYSTEMS: A 10-point review of system negative except pertinent in history of present illness. PHYSICAL EXAMINATION: VITAL SIGNS: Blood pressure is 178/61, heart rate 76, respiratory rate 20, temperature 97.9. CONSTITUTIONAL: Looks her stated age. HEAD: Atraumatic, normocephalic. NECK: Supple. LUNGS: Decreased breath sounds. CARDIOVASCULAR: S1, S2. No rub. ABDOMEN: Soft, nontender. EXTREMITIES: With trace peripheral edema. LABORATORY DATA: Showed a urine sodium less than 20, urine osmolality 510. Sodium 123, potassium 6.3, chloride 80, CO2 of 32, BUN 21, creatinine 0.5, glucose 198. Serum osmolality 269. IMPRESSION: 1. Hyponatremia. 2. Hyperkalemia. 3. Heart failure with reduced ejection fraction. 4. End-stage COPD. This is a patient with hypotonic hyponatremia with evidence for hypervolemia. She has underlying heart failure with reduced ejection fraction with a left ventricular ejection fraction in the range of40-45% and her chest x-ray was consistent with pulmonary edema. Her urine sodium is less than 20 with an elevated urine osmolality, which is not consistent with SIADH. I suspect she is prerenal in the setting of heart failure decompensation, which has led to compromised distal flow and elevated serum potassium as well. I would discontinue IV fluid and start her on IV furosemide and treat her elevated serum potassium with sodium zirconium as needed. We will have her on a fluid restriction. I will continue to follow closely her kidney function and electrolytes. Thank you for allowing me to participate in the care of the patient. Dictated by: Zuhair Pang M.D. Signing Clinician: Zuhair Pang M.D. Dictated: 07/11/2023 03:24:46 Transcribed: 11:19:21 AM Transcribed by: RIN DocID: [id number] PRELIMINARY REPORT UNLESS MANUALLY/ELECTRONICALLY SIGNED History and physical note * Ivelisse Hilton DO: MODIFY, MODIFY, MODIFY, MODIFY, PERFORM, MODIFY, MODIFY Event Display: History and Physical Hospital Authored Date: Patient: ??KATERINE NICOLE ? Age:??62 Years?Sex:??Female?:??1960?? Chief Complaint/Reason for Consultation see level one trauma sheet History of Present Illness This is a 62-year-old female with past medical history including end-stage COPD on 6 L via nasal cannula with chronic hypoxemic respiratory failure, hyperlipidemia, paroxysmal atrial flutter, peripheral neuropathy, multiple compression fractures, and hyponatremia, who currently presents to the hospital from her home after she was noted to have respiratory distress and altered mental status.?? Pernotes from EMS, the patient had difficulty breathing in the morning and was given 2 Provence of albuterol by her family.?? She became less responsive and more short of breath, so they called EMS.?? On arrival to the ED, she had respiratory distress with retractions and tachypnea.?? She was not respo nding or following commands.?? She was placed on BiPAP and given a DuoNeb treatment.?? A bedside cardiac ultrasound showed diffuse B-lines with dilated IVC, so there was concern for flash pulmonary edema.?? The patient was initiated on a nitroglycerin drip transiently in the ED.?? She was noted to have sinus tachycardia with a heart rate in the 120s to 130s.?? She was also treated with 125 mg of IV Solu-Medrol, and given ceftriaxone and Zithromax.?? Initial ABG on this patient showed a pH of 7.19 with a PCO2 of 104, PO2 of 201, and bicarb of 39.?? Subsequent ABG after a couple of hours on BiPAP showed pH of 7.31, PCO2 of 84, PO2 of 136, and bicarb of 41.?? Her lab work was notable for an elevated white count of 20.5.?? Other labs were notable also for a low sodium of 117, low chloride of 69, and bicarb of 38.?? BUN and creatinine were normal at 12 and 0.5.?? BNP was 21,925 and high-sensitivity troponin was 97.?? Portable chest x- ray done showed COPD with no other acute abnormality.?? At the time of my visit with the patient, she was able to answer questions.?? She does not recall all the events at home in the morning, but does remember feeling short of breath.?? She denies any chest pain.?? She is now admitted for further management. Review of Systems A complete review of systems was obtained and noted to be negative except as stated above in the HPI. Objective Measurements?? Height: 169 cm (07/02/23) Weight: 46.8 kg (07/02/23) Dry Weight: 46.8 kg (07/02/23) Body Mass Index:??16.39 kg/m2??Low (07/02/23) ? Vital Signs?? Temperature: 98.1 DegF (07/02/23 21:37:00) Temperature Route: Axillary (07/02/23 21:37:00) Pulse Rate:??98 bpm??High (07/03/23 00:00:00) Heart Rate Monitored:??104 bpm??High (07/03/23 00:00:00) Respiratory Rate: 18 br/min (07/03/23 00:00:00) Systolic Blood Pressure: 92 mm Hg (07/03/23 00:00:00) Diastolic Blood Pressure:??52 mm Hg??Low (07/03/23 00:00:00) Blood pressure sites: Arm, right (07/03/23 00:00:00) Mean Arterial Pressure: 78 mm Hg (07/02/23 21:37:00) Pulse Pressure: 40 mm Hg (07/03/23 00:00:00) Oxygen Saturation: 95 % (07/03/23 00:00:00) Mode of Delivery (Oxygen): BiPAP (07/03/23 00:00:00) FiO2: 30 % (07/03/23 00:00:00) Early Warning Score: 8 (07/03/23 00:38:14) ? Physical Exam General: Alert, in no acute cardiopulmonary distress. Mental Status: Oriented to person, place and time. Normal affect. Head: Normocephalic. Eyes: Pupils are equal, round and reactive to light. Extraocular muscles intact. Ear, Nose and Throat: Oropharynx clear, mucous membranes moist. Ears and nose without masses, lesions or deformities. Trachea midline. Neck: Supple, Full range of motion. Respiratory: Clear to auscultation and percussion. No wheezing, rales or rhonchi. Cardiovascular: Heart [...] deformities. Normal range of motion. Assessment/Plan This is a 62-year-old female with past medical history as noted above,??who currently presents to the hospital after she??noted increased shortness of breath this morning.?? She was found here to have??acute on chronic??hypoxemic and hypercapnic respiratory failure, and is being admitted for further management. ?? Respiratory failure ??(J96.90) Acute on chronic respiratory failure with hypoxia and hypercapnia ??(J96.21) ? Pulmonary edema ??(J81.1) COPD type A ??(J43.9) This patient will be admitted to an inpatient intermediate care bed.?? She presents with acute shortness of breath and was noted??to have??hypoxic and hypercarbic respiratory failure.?? She was placed on??BiPAP in the ED with??gradual improvement of her??symptoms. ??Her ABG??also demonstrated improv ement.?? In the ED, bedside cardiac ultrasound was done that showed some concern for??pulmonary edema. ??Patient's??chest x-ray??shows some??slightly increased vascular markings,??but no overt edema.?? Her??symptoms are most likely due to??COPD exacerbation.?? For now we will continue her on BiPAP??and hope to wean off??in the next 12 to 24 hours.?? We will continue her on scheduled albuterol treatments, and??as needed DuoNeb treatments. ??She will also be continued on her??Spiriva and??we willgive her??Breo in place of her home Symbicort. ??She did receive IV steroids in the ED,??and we will maintain her on oral prednisone.?? We will also continue her on Zithromax for now. ?? Leukocytosis ??(D72.829) Patient noted to have an elevated white count of 20.5, but she denies any localizing signs or symptoms of infection.?? Will obtain blood cultures for now.?? We will also check a urine analysis.?? Continue to monitor her white blood cell count daily. ?? 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 We will place her on fluid restriction.?? Kiara give her sodium chloride 1000??mg once now,??and??place her on urea??30 mg twice daily. ??We will also check urine studies.?? In addition, renal consult with??RTANE will be requested.?? We will f christiano strict I's and O's??on this patient.?? We will aim to correct??sodium by no more than 6 to 8 mEq in the next 24 hours. ?? Anxiety. We will continue patient on home sertraline. ?? Paroxysmal atrial flutter. Patient currently??sinus rhythm.?? We will continue her on??her home metoprolol.?? Patient's last hospital discharge??from May indicates that her dose is 75 mg??3 times a day??which she confirmed,??but external med history shows a dose of??25 mg metoprolol ER once a day.?? We will maintain her on 75 mg 3 times a day??of metoprolol for now. ?? History of compression fractures. Patient is normally on gabapentin,??but due to her??increased sedation earlier today, we will hold this for now.?? If she remains stable overnight, this can be resumed??tomorrow. ?? CODE STATUS. ??Discussed with this patient. ??She wishes to be a full code. ?? VTE prophylaxis.?? We will use subcu Lovenox and encourage early mobilization. ?? Patient seen on July 02, 2023. Total time spent with patient and in coordination of care: including reviewing the chart/medical records, speaking with the patient, formulating and discussing the treatment plan, and documenting thefindings and encounter: ??70 + min Histories Allergies Allergies ?(Active and Proposed Allergies Only) Lyrica? (Severity: Unknown severity, Onset: Unknown) ?Reactions: increased depression morphine? (Severity: Unknown severity, Onset: Unknown) ?Reactions: respiratory depression codeine? (Severity: Moderate, Onset: Unknown) ?Reactions: Nausea, Rash sulfADIAZINE? (Severity: Moderate, Onset: Unknown) ?Reactions: Rash ? Past Medical History/Problem List Active Problems??(24) Abnormal TSH Anxiety At risk for falls [...] Hysterectomy Osteopetrosis Breast implant ? Social History Patient's sister lives with her Alcohol Details:??Use: Never. Substance Abuse Details:??Use: Never. Tobacco Details:??Other: now smoking 1/2 pack per day??currently, but has smoked as much is 1-1 and half packs a day in the past. ??She started as a teenager. ? Family Medical History Mother in her 70s with lung cancer.?? Father in his 80s with a brain tumor. Medications Home Medications??(Confirmed with the patient) Albuterol (Ventolin HFA 108 mcg/inh inhalation aerosol with adapter)?2?puff(s)?Inhalation?4 times a day?as needed?for wheezing Albuterol/Ipratropium (albuterol-ipratropium 3 mg-0.5 mg/3 ml inhalation solution)?BAND Nebulizer?4 times a day?as needed?Wheezing/Shortness of Breath Aspirin (aspirin 81 mg oral delayed release tablet)?81?Milligram?1?tablet?By Mouth?Daily Atorvastatin (atorvastatin 20 mg oral tablet)?TAKE 1 TABLET BY MOUTH ONCE DAILY Baclofen (baclofen 10 mg oral tablet)?10?Milligram?1?tablet?By Mouth?2 times a day?as needed?for 14?Days?Pain , Moderate Budesonide-Formoterol (Symbicort 160mcg/4.5mcg Inhaler)?2?puff(s)?Inhalation?2 times a day Cholecalciferol (Vitamin D3 1000 intl units oral capsule)?1?capsule?25?Microgram?By Mouth?Daily Docusate (docusate sodium 100 mg oral capsule)?TAKE 1 CAPSULE BY MOUTH 2 TIMES A DAY NEEDED FOR CONSTIPATION. FILLED AT [facility] Folic Acid (folic acid 1 mg oral tablet)?1?Milligram?1?tablet?By Mouth?Daily Gabapentin (gabapentin 300 mg oral capsule)?2?capsule?By Mouth?3 times a day HydrOXYzine (hydrOXYzine hydrochloride 10 mg oral tablet)?3?tab(s)?30?Milligram?By Mouth?3 times a day?as needed? NEEDED FOR ANXIETY Metoprolol (Metoprolol Succinate ER 25 mg oral tablet, extended release)?1?tab(s)?25?Milligram?By Mouth?Daily??patient confirms metoprolol 75 mg 3??times a day, but external med history shows??metoprolol ER 25 mg Multivitamin (multivitamin Multiple Vitamins oral capsule)?1?capsule?By Mouth?Daily Nicotine?21?Milligram?Topically?Daily Pantoprazole (pantoprazole 40 mg oral delayed release tablet)?1?tab(s)?40?Milligram?By Mouth?Daily Sertraline (sertraline 25 mg oral tablet)?TAKE 1 TABLET BY MOUTH EVERY DAY Tiotropium (Spiriva HandiHaler 18 mcg inhalation capsule)?1?capsule?18?Microgram?Inhalation?Daily?for 30?Days Tramadol (traMADol 50 mg oral tablet)?1?tab(s)?50?Milligram?By Mouth?3 times a day with meals?TAKE 1 TABLET BY MOUTH 3 TIMES A DAY FOR 7 DAYS NEEDED FOR PAIN ? Results Recent Labs BLOOD COUNT & DIFF WBC 20.5 k/mm3 (High)?? 07/02/2023 12:46 RBC 4.11 m/mm3 (Low)?? 07/02/2023 12:46 Hgb 12.5 Gm/dL ()?? 07/02/2023 12:46 Hct 36.9 % ()?? 07/02/2023 12:46 MCV 89.8 femtoliters ()?? 07/02/2023 12:46 MCH 30.4 pg ()?? 07/02/2023 12:46 MCHC 33.9 g/dL ()?? 07/02/2023 12:46 Platelet Count 381 k/mm3 ()?? 07/02/2023 12:46 RDW-SD 36.8 femtoliters ()?? 07/02/2023 12:46 MPV 9.2 femtoliters (Low)?? 07/02/2023 12:46 Nucleated RBC (Automated) 0.0 #/100 WBC'S ()?? 07/02/2023 12:46 Abs. NRBC 0.0 k/mm3 ()?? 07/02/2023 12:46 Abs. Neut 17.3 k/mm3 (High)?? 07/02/2023 12:46 Abs. Lymph 1.0 k/mm3 ()?? 07/02/2023 12:46 Abs. [place] 2.1 k/mm3 (High)?? 07/02/2023 12:46 Abs. Eo 0.0 k/mm3 ()?? 07/02/2023 12:46 Abs. Baso 0.0 k/mm3 ()?? 07/02/2023 12:46 Neut % 84.3 % (High)?? 07/02/2023 12:46 Lymph % 4.8 % (Low)?? 07/02/2023 12:46 [place] % 10.0 % ()?? 07/02/2023 12:46 Eos % 0.1 % ()?? 07/02/2023 12:46 Baso % 0.1 % ()?? 07/02/2023 12:46 Hemoglobin (POC) POC Cartridge 14.3 Gm/dL ()?? 07/02/2023 12:21 Hematocrit (POC) POC Cartridge 42 % ()?? 07/02/2023 12:21 Imm Gran 0.7 % ()?? 07/02/2023 12:46 Abs. Imm Gran 0.2 k/mm3 ()?? 07/02/2023 12:46 ?? BLOOD GAS pH Venous (POC) POC Cartridge 7.15 (Low)?? 07/02/2023 12:21 pCO2 Venous (POC) POC Cartridge 127.5 mm Hg (High)?? 07/02/2023 12:21 pO2 Venous (POC) POC Cartridge 26 mm Hg (Low)?? 07/02/2023 12:21 Est Bicarbonate (POC) POC Cartridge 44.4 mmol/L (High)?? 07/02/2023 12:21 % O2 Sat Venous (POC) POC Cartridge 28 ()?? 07/02/2023 12:21 Base Excess (POC) POC Cartridge 16 ()?? 07/02/2023 12:21 pH 7.31 (Low)?? 07/02/2023 14:02 pCO2 84 mm Hg (Critical)?? 07/02/2023 14:02 pO2 136 mm Hg (High)?? 07/02/2023 14:02 Bicarbonate, Estimated 41 mmol/L (High)?? 07/02/2023 14:02 Specimen Type - Blood Gas ARTERIAL ()?? 07/02/2023 14:02 Percent O2 (FIO2) 40 ()?? 07/02/2023 14:02 ?? CARDIAC Nt-Probnp 75998 pg/mL (High)?? 07/02/2023 12:46 High Sensitivity Troponin (HSTnT) 97 ng/L (Critical)?? 07/02/2023 12:46 ?? CHEM GENERAL Sodium 117 mmol/L (Critical)?? 07/02/2023 12:46 Potassium 4.7 mmol/L ()?? 07/02/2023 12:46 Chloride 69 mmol/L (Low)?? 07/02/2023 12:46 Bicarbonate Level 38 mmol/L (High)?? 07/02/2023 12:46 Anion Gap 10 ()?? 07/02/2023 12:46 Sodium (POC) POC Cartridge 113 mmol/L (Critical)?? 07/02/2023 12:21 Potassium (POC) POC Cartridge 4.2 mmol/L ()?? 07/02/2023 12:21 Glucose Level 97 mg/dL ()?? 07/02/2023 12:46 Glucose (POC) POC Cartridge 110 (High)?? 07/02/2023 12:21 BUN 12 mg/dL ()?? 07/02/2023 12:46 Creatinine-Blood 0.5 mg/dL ()?? 07/02/2023 12:46 Estimated GFR Creatinine 103 ML/MIN/1.73 M2 ()?? 07/02/2023 12:46 Ionized Calcium (POC) POC Cartridge 1.20 mmol/L ()?? 07/02/2023 12:21 Uric Acid 4.0 mg/dL ()?? 07/02/2023 12:46 ?? COAG INR 1.1 ()?? 07/02/2023 12:46 Protime (PT) 11.4 seconds ()?? 07/02/2023 12:46 ?? URINE OTHER Est Creatinine Clearance 83.98 mL/min ()?? 07/02/2023 21:41 ?? VIROLOGY COVID-19 by RT-PCR NEGATIVE ()?? 07/02/2023 12:53 ? Imaging(s) ?Other Image ?EKG showing sinus tachycardia with PACs. Minimal voltage criteria for LVH noted. Some ST segment elevation noted in V2 to V4 which could be from early repolarization. Nonspecific ST and Twave abnormalities noted. When compared to prior EKGs, similar changes noted, but more pronounced on current EKG. ?(07/02/2023 12:35 EDT Chest Portable) IMPRESSION: ?? COPD. No acute radiographic process. [1] [1]??Chest Portable; Akhil Olsen MD 07/02/2023 12:35 EDT EKG study * Event Display: EKG Authored Date: * Event Display: EKG Authored Date: * Event Display: ECG 12-Lead Authored Date: Please click on pdf link to open report * Event Display: ECG 12-Lead Authored Date: Ventricular Rate: 32 BPM Atrial Rate: 326 BPM QRS Duration: 96 ms Q-T Interval: 454 ms QTC Calculation(Bazett): 331 ms R Clayton: -15 degrees T Clayton: 226 degrees Poor data quality, interpretation may be adversely affected Junctional bradycardia Inferior infarct , age undetermined ST and Marked T wave abnormality, consider anterior ischemia Abnormal ECG When compared with ECG of 11-JUL-2023 10:55, Poor data quality in current ECG precludes serial comparison Junctional rhythm has replaced Sinus rhythm Vent. rate has decreased BY 40 BPM Inferior infarct is now Present T wave inversion no longer evident in Lateral leads QT has shortened Confirmed by ASHER AC MD ([id number]) on 07/13/2023 8:42:19 AM [place]: ASHER AC MD * Event Display: ECG 12-Lead Authored Date: Please click on pdf link to open report * Event Display: ECG 12-Lead Authored Date: Ventricular Rate: 72 BPM Atrial Rate: 72 BPM P-R Interval: 152 ms QRS Duration: 92 ms Q-T Interval: 356 ms QTC Calculation(Bazett): 389 ms P Clayton: 35 degrees R Clayton: 39 degrees T Clayton: -82 degrees Normal sinus rhythm Minimal voltage criteria for LVH, may be normal variant ( Franklyn product ) ST and T wave abnormality, consider anterolateral ischemia Abnormal ECG When compared with ECG of 11-JUL-2023 03:07, Vent. rate has increased BY 24 BPM Inverted T waves have replaced nonspecific T wave abnormality in Lateral leads Confirmed by LIMA MOLINA MD ([id number]) on 07/11/2023 11:27:42 AM [place]: LIMA MOLINA MD * Event Display: ECG 12-Lead Authored Date: Please click on pdf link to open report * Event Display: ECG 12-Lead Authored Date: Ventricular Rate: 48 BPM Atrial Rate: 48 BPM P-R Interval: 156 ms QRS Duration: 84 ms Q-T Interval: 438 ms QTC Calculation(Bazett): 391 ms P Clayton: 67 degrees R Clayton: 45 degrees T Clayton: 194 degrees Sinus bradycardia T wave abnormality, consider anterior ischemia Abnormal ECG When compared with ECG of 08-JUL-2023 09:37, Sinus rhythm has replaced Atrial fibrillation Vent. rate has decreased BY [address] less depressed in Anterior leads Nonspecific T wave abnormality has replaced inverted T waves in Inferior leads T wave inversion no longer evident in Lateral leads Confirmed by LIMA MOLINA MD ([id number]) on 07/11/2023 7:46:53 AM [place]: LIMA MOLINA MD Cardiology * Event Display: Cardiac Rhythm Strips Authored Date: Hospital Progress note * Elizabeth Ferris RN: PERFORM, SIGN, VERIFY Event Display: Progress Note Hospital Authored Date: Patient: KATERINE NICOLE Age: 62 years Sex: Female : 1960 Associated Diagnoses: None Author: Elizabeth Ferris RN Findings Problem Related to Alteration in Cardiac Function (new) : Alteration in Cardiac Function/new 07/20/2023 10:00 EDT Alteration in Cardiac Status Related to Dysrhythmia, Heart failure, Other: . afib RVR Goals & Outcomes, Cardiac Status Pt will resume/maintain adequate cardiac output, Pt will resume/maintain adequate hemodynamic status, Pt will resume/maintain adequate respiratory function, Pt will resume/maintain intact neuro function, Pt will maintain adequate GI/ function appropriate for pt, Pt will maintain adequate nutrition status, Heart rate control/rhythm is maintained Cardiac Interventions Implemented Assess/monitor cardiac status, Assess/monitor neuro status, Assess/monitor respiratory status, Evaluate pt for proarrhythmic effects of medications, Management of Atrial Fibrillation, Monitor electrolytes and replace as ordered Goals/Interventions, Cardiac Yes Cardiac, Problem Start 07/04/2023 14:44 Reviewed Plan with, Cardiac Status Patient Patient Progression, Cardiac Status Patient progressing according to plan . Alteration in Respiratory Function (new) : Alteration in Respiratory Function/new 07/20/2023 10:00 EDT Alteration in Resp Status Related to COPD, Other: Smoking cessation, use of 02 and bipap. Pulmonary Rehab Goals & Outcomes, Respiratory Pt will maintain/resume baseline physical assessment, Pt will maintain/resume normal fluid/electrolyte balance, Pt will not develop complications r/t immobility Interventions, Respiratory Assess/monitor tolerance to IV infusions; verify rate/dose, Assess for and report S&S of respiratory distress, Position for comfort & optimal oxygenation Goals/Interventions, Respiratory Yes Respiratory, Problem Start 07/02/2023 22:57 Reviewed Plan with, Respiratory Patient Patient Progression, Respiratory Patient progressing according to plan . Evaluation Pt. AO x 4; expresses pain during shift. VSS. A. Fib on caridac monitor. Pt. maintained HR <120's. Seen by PT and up OOB to chair during shift. Pt. is on 4L carias. Staeg 2 on her coccyx; triad applied. Barnes catheter in place draining clear/yellow urine. Barnes care done during shift. pt. able tomake needs known, call [facility] within reach. Bed alarm on and in lowest locked position for pt. safety. See [facility] for further assessment. Pt. being sent to [facility] by ambulance at 1451. Report was given from this RN to RN at facility. Pt. sent with all valuables and belongings. Midline IV was removed. All questions were answered. . Discharge Information Case Management Discharge Plan : Case Management Discharge Plan Data 07/20/2023 12:38 EDT Discharge Level of Care at Discharge correction facility Discharge Nursing Homes/Rehab Facilities [facility] Discharge Transportation Arranged [facility] [address] [place] [address] Discharge Arranged Transport Date/Time 07/20/2023 14:00 Mode of Transportation Arranged Ambulance Agency [facility]1 Intake Service Categories #1 Oxygen Therapy, Physical Therapy, Retirement Service Comments #1 You are being discharged to rehab at [facility]. Name of Person Notified of Transfer Pt. and family Pulmonary Rehab Discharge : Pulmonary Rehab Discharge Status 07/19/2023 0:06 EDT CPAP/BiPAP Mask Type Full CPAP/BiPAP Mask Size Small 07/18/2023 21:33 EDT CPAP/BiPAP Mask Type Full CPAP/BiPAP Mask Size Small 07/18/2023 4:42 EDT CPAP/BiPAP Mask Type Full CPAP/BiPAP Mask Size Small 07/18/2023 0:00 EDT CPAP/BiPAP Mask Type Full CPAP/BiPAP Mask Size Small 07/17/2023 21:40 EDT CPAP/BiPAP Mask Type Full CPAP/BiPAP Mask Size Small 07/17/2023 3:27 EDT CPAP/BiPAP Mask Type Full CPAP/BiPAP Mask Size Small 07/16/2023 23:40 EDT CPAP/BiPAP Mask Type Full CPAP/BiPAP Mask Size Small 07/16/2023 21:49 EDT CPAP/BiPAP Mask Type Full CPAP/BiPAP Mask Size Small 07/16/2023 14:15 EDT CPAP/BiPAP Mask Type Full CPAP/BiPAP Mask Size Small 07/16/2023 3:17 EDT CPAP/BiPAP Mask Type Full CPAP/BiPAP Mask Size Small 07/16/2023 0:08 EDT CPAP/BiPAP Mask Type Full CPAP/BiPAP Mask Size Small 07/15/2023 22:13 EDT CPAP/BiPAP Mask Type Full CPAP/BiPAP Mask Size Small 07/15/2023 15:55 EDT CPAP/BiPAP Mask Type Full CPAP/BiPAP Mask Size Small 07/15/2023 14:16 EDT CPAP/BiPAP Mask Type Full CPAP/BiPAP Mask Size Small 07/15/2023 3:30 EDT CPAP/BiPAP Mask Type Full CPAP/BiPAP Mask Size Small 07/15/2023 0:24 EDT CPAP/BiPAP Mask Type Full CPAP/BiPAP Mask Size Small * Kelly Radford: PERFORM, SIGN, VERIFY Event Display: Progress Note Hospital Authored Date: [id number] Patient: KATERINE NICOLE Age: 62 years Sex: Female : 1960 Associated Diagnoses: None Author: Kelly Radford Findings Problem Related to Alteration in Cardiac Function (new) : Alteration in Cardiac Function/new 07/19/2023 11:00 EDT Alteration in Cardiac Status Related to Dysrhythmia, Heart failure, Other: . afib RVR Goals & Outcomes, Cardiac Status Pt will resume/maintain adequate cardiac output, Pt will resume/maintain adequate hemodynamic status, Pt will resume/maintain adequate respiratory function, Pt will resume/maintain intact neuro function, Pt will maintain adequate GI/ function appropriate for pt, Pt will maintain adequate nutrition status, Heart rate control/rhythm is maintained Cardiac Interventions Implemented Assess/monitor cardiac status, Assess/monitor neuro status, Assess/monitor respiratory status, Assess for tolerance of IV infusions; verify rate & dose, Call/Report variances in ECG to provider, Document & Monitor O2 Sats; Administer O2 as ordered, Ensure adequate caloric intake, If no bowel movement in 3 days activate bowel regime, Evaluate pt for proarrhythmic effects of medications, Management of Atrial Fibrillation, Monitor electrolytes and replace as ordered, Monitor VS with each burst of rhythm/rate disturbance, Monitor VS with rhythm/rate disturbance Goals/Interventions, Cardiac Yes Cardiac, Problem Start 07/04/2023 14:44 Reviewed Plan with, Cardiac Status Patient Patient Progression, Cardiac Status Patient progressing according to plan . Alteration in Respiratory Function (new) : Alteration in Respiratory Function/new 07/19/2023 11:00 EDT Alteration in Resp Status Related to COPD, Other: Smoking cessation, use of 02 and bipap. Pulmonary Rehab Goals & Outcomes, Respiratory Pt will maintain/resume baseline physical assessment, Pt will maintain/resume normal fluid/electrolyte balance, Pt will not develop complications r/t immobility Interventions, Respiratory Assess/monitor tolerance to IV infusions; verify rate/dose, Assess for and report S&S of respiratory distress, Position for comfort & optimal oxygenation, Initiate pulmonary rehab nurse consult Goals/Interventions, Respiratory Yes Respiratory, Problem Start 07/02/2023 22:57 Reviewed Plan with, Respiratory Patient Patient Progression, Respiratory Patient progressing according to plan . Evaluation Patient resting comfortably in bed at start of shift. VSS on tele monitor. Afib noted, sustaining in 120's. 2100 meds given per MAR with little to no positive effect on HR. paged. MD asked for rectal temp, rectal temp 98.4. No new orders following. By @2200, Patient HR sustaining 90's-low 100's.SPO2> 95% through the night on 4L via nasal cannula. patient turned and repositioned d/t coccyx wound. Patient refused removal of lidocaine patch, documented per MAR. Patient also refused IVAPS overnight, paged. Able to make needs known, call hudson within reach, see [facility]ophysical for asssessmentdetaisls. . * Josy LUIS, Elizabeth: MODIFY, SIGN, PERFORM, SIGN, VERIFY Event Display: Progress Note Hospital Authored Date: Patient: KATERINE NICOLE Age: 62 years Sex: Female : 1960 Associated Diagnoses: None Author: Josy LUIS, Elizabeth Findings Problem Related to Alteration in Cardiac Function (new) : Alteration in Cardiac Function/new 07/19/2023 11:00 EDT Alteration in Cardiac Status Related to Dysrhythmia, Heart failure, Other: . afib RVR Goals & Outcomes, Cardiac Status Pt will resume/maintain adequate cardiac output, Pt will resume/maintain adequate hemodynamic status, Pt will resume/maintain adequate respiratory function, Pt will resume/maintain intact neuro function, Pt will maintain adequate GI/ function appropriate for pt, Pt will maintain adequate nutrition status, Heart rate control/rhythm is maintained Cardiac Interventions Implemented Assess/monitor cardiac status, Assess/monitor neuro status, Assess/monitor respiratory status, Assess for tolerance of IV infusions; verify rate & dose, Call/Report variances in ECG to provider, Document & Monitor O2 Sats; Administer O2 as ordered, Ensure adequate caloric intake, If no bowel movement in 3 days activate bowel regime, Evaluate pt for proarrhythmic effects of medications, Management of Atrial Fibrillation, Monitor electrolytes and replace as ordered, Monitor VS with each burst of rhythm/rate disturbance, Monitor VS with rhythm/rate disturbance Goals/Interventions, Cardiac Yes Cardiac, Problem Start 07/04/2023 14:44 Reviewed Plan with, Cardiac Status Patient Patient Progression, Cardiac Status Patient progressing according to plan . Alteration in Respiratory Function (new) : Alteration in Respiratory Function/new 07/19/2023 11:00 EDT Alteration in Resp Status Related to COPD, Other: Smoking cessation, use of 02 and bipap. Pulmonary Rehab Goals & Outcomes, Respiratory Pt will maintain/resume baseline physical assessment, Pt will maintain/resume normal fluid/electrolyte balance, Pt will not develop complications r/t immobility Interventions, Respiratory Assess/monitor tolerance to IV infusions; verify rate/dose, Assess for and report S&S of respiratory distress, Position for comfort & optimal oxygenation, Initiate pulmonary rehab nurse consult Goals/Interventions, Respiratory Yes Respiratory, Problem Start 07/02/2023 22:57 Reviewed Plan with, Respiratory Patient Patient Progression, Respiratory Patient progressing according to plan . Evaluation Pt. AO x 4; expresses discomfort during shift. VSS. Atrial fibrilation on school lunch monitor. Pt. maintained HR <120 during shift. Pt. has a stage 2 pressure injury on her coccyx. Photo obtained withpermission from pt. and uploaded to chart; triad applied as well as frequent repositoning and a waffle pillow. Pt. has a wound in parineal area near catheter; red/opened area on R labia. Wound consult placed; cleaned with wipes. No acute events occured during shift. Pt. on 5L carias. Barnes catheterin place; draining clear/yellow urine. Bowel movement was had during shift. Pt. downgraded to [facility] by . Call [facility] within reach, pt. able ot make needs known. Bed in lowest locked position forpt. safety. [facility]. . Discharge Information Pulmonary Rehab Discharge : Pulmonary Rehab Discharge Status 07/19/2023 0:06 EDT CPAP/BiPAP Mask Type Full CPAP/BiPAP Mask Size Small 07/18/2023 21:33 EDT CPAP/BiPAP Mask Type Full CPAP/BiPAP Mask Size Small 07/18/2023 4:42 EDT CPAP/BiPAP Mask Type Full CPAP/BiPAP Mask Size Small 07/18/2023 0:00 EDT CPAP/BiPAP Mask Type Full CPAP/BiPAP Mask Size Small 07/17/2023 21:40 EDT CPAP/BiPAP Mask Type Full CPAP/BiPAP Mask Size Small 07/17/2023 3:27 EDT CPAP/BiPAP Mask Type Full CPAP/BiPAP Mask Size Small 07/16/2023 23:40 EDT CPAP/BiPAP Mask Type Full CPAP/BiPAP Mask Size Small 07/16/2023 21:49 EDT CPAP/BiPAP Mask Type Full CPAP/BiPAP Mask Size Small 07/16/2023 14:15 EDT CPAP/BiPAP Mask Type Full CPAP/BiPAP Mask Size Small 07/16/2023 3:17 EDT CPAP/BiPAP Mask Type Full CPAP/BiPAP Mask Size Small 07/16/2023 0:08 EDT CPAP/BiPAP Mask Type Full CPAP/BiPAP Mask Size Small 07/15/2023 22:13 EDT CPAP/BiPAP Mask Type Full CPAP/BiPAP Mask Size Small 07/15/2023 15:55 EDT CPAP/BiPAP Mask Type Full CPAP/BiPAP Mask Size Small 07/15/2023 14:16 EDT CPAP/BiPAP Mask Type Full CPAP/BiPAP Mask Size Small 07/15/2023 3:30 EDT CPAP/BiPAP Mask Type Full CPAP/BiPAP Mask Size Small 07/15/2023 0:24 EDT CPAP/BiPAP Mask Type Full CPAP/BiPAP Mask Size Small 07/14/2023 21:29 EDT CPAP/BiPAP Mask Type Full CPAP/BiPAP Mask Size Small 07/14/2023 10:04 EDT CPAP/BiPAP Mask Type Full CPAP/BiPAP Mask Size Small 07/14/2023 3:58 EDT CPAP/BiPAP Mask Type Full CPAP/BiPAP Mask Size Small 07/14/2023 0:33 EDT CPAP/BiPAP Mask Type Full CPAP/BiPAP Mask Size Small Patient Care team information Care Team Personnel Name: Herminia Parker RN Position: S RN Member Role: Primary Care Nurse Name: Morgan Abbott MD Position: [facility] Renal MD Member Role: Lifetime Consulting Physician Address: Address: [address] [place] [address] Name: Bernice Molina RN Position: [facility] RN Member Role: Primary Care Nurse Name: Graciela Nunez MD Position: [facility] Physician - Primary Care Member Role: PCP Address: Address: [address] [place] [address]- Name: Maryam Camara RN Position: [facility] RN Member Role: Primary Care Nurse Name: Josemanuel Hawkins RN Position: S RN Member Role: Primary Care Nurse Name: Mckay Esquivel MD Position: [facility] Renal MD Member Role: Lifetime Consulting Physician Address: Address: [address] [place] [address], [address] Name: Rylie Francois RN Position: S RN Member Role: Primary Care Nurse Name: Luisa Storey RN Position: S RN Member Role: Primary Care Nurse Name: Elizabeth Ferris RN Position: S RN Member Role: Primary Care Nurse Name: Anabela Beavers Position: S RN Member Role: Primary Care Nurse Name: Tracey Chavez Position: S RN Member Role: Primary Care Nurse Name: Sandy Alba RN Position: S RN Member Role: Primary Care Nurse Name: Jose Sebastian RN Position: [facility] RN Member Role: Primary Care Nurse Name: Angelica Montemayor RN Position: [facility] RN Member Role: Primary Care Nurse Name: Paty Ventura RN Position: [facility] RN Member Role: Primary Care Nurse Name: Ninfa Soto RN Position: S RN Member Role: Primary Care Nurse Name: Romeo Reid MD Position: [facility] Renal MD Member Role: Lifetime Consulting Physician Address: Address: [address] [place] [address] [address] [facility] [place] [address]- Name: Olga Valladares RN Position: [facility] RN Member Role: Primary Care Nurse Name: Karyn Quezada RN Position: [facility] RN Member Role: Primary Care Nurse Name: Ruby Alexandre RN Position: [facility] RN Member Role: Primary Care Nurse Address: Address: [address] [place] [address]- Name: Celso Lawson MD Position: [facility] Renal MD Member Role: Lifetime Consulting Physician Address: Address: [address] [place] [address] [facility] [place] [address]- Name: Alyssa Camacho RN Position: [facility] RN Member Role: Primary Care Nurse Name: Keely Pascal RN Position: [facility] RN Member Role: Primary Care Nurse Name: Chloe Fisher LPN Position: [facility] RN Member Role: Primary Care Nurse Name: Naomi RAINEY Attending Position: [facility] ED Medicine MD Name: Luiza Lugo RN Position: [facility] ED RN W/OE and Tasks Member Role: Patient Care Provider Name: Silke Alberto Position: [facility] ED TA [facility] Member Role: Rubber Process Hand Name: Elissa Zhang Position: [facility] ED OA Charge Member Role: ED Associate Name: Ladi Call Position: [facility] ED TA [facility] Member Role: Rubber Process Hand Care Team Related Persons Name: INDIA LAZARUS Address: [place] [address] Name: KAVON NICOLE Address: home [address] [place] [id number] Name: PT, STATES NONE
--- OUTSIDE RECORDS SUMMARY | 2023-08-21 08:37 | XMS_ITS | Continuity of Care Document ---
Author Name Unknown Organization [facility] Address [address] [place] [address]- Care Team Providers Care Buckle Gluer Name Role Phone Graciela Nunez MD Primary Care Physician [phone] Encounter [facility] Date(s): 09/01/21 - 10/01/21 [facility] [address] [place], [place] [address] Allergies, Adverse Reactions, Alerts Substance Reaction Severity Status codeine Rash Nausea Moderate Active sulfADIAZINE Rash Moderate Active morphine respiratory depression Activ e Immunizations Given and Recorded Vaccine Date Status Refusal Reason SARS-CoV-2 (COVID-19) mRNA BNT-162b2 vac 08/26/21 Recorded SARS-CoV-2 (COVID-19) mRNA BNT-162b2 vac 01/28/21 Recorded SARS-CoV-2 (COVID-19) mRNA BNT-162b2 vac 01/07/21 Recorded influenza virus vaccine, inactivated 1 10/20/17 Re corded influenza virus vaccine, inactivated 08/03/16 Doug rded influenza virus vaccine, inactivated 2 09/19/15 Gi ike influenza virus vaccine, inactivated 09/15/13 Doug rded influenza virus vaccine, inactivated 09/08/12 Doug rded influenza virus vaccine, inactivated 3 10/29/11 Re corded tetanus/diphtheria/pertussis, acel(Tdap) 4 04/19/12 Recorded pneumococcal 23-valent vaccine 5 07/31/10 Recorded 1Location History: [place], [place] 2Admin Note: done @ dr jones office 3Location History: [facility] 4Location History: [facility] 5Location History: [facility] Medications alendronate 70 mg oral [...] 0 Refills, Maintenance, 09/01/21 15:19:00 EDT, Capsule, [facility] #[id number], Partial fill upon patient request if the prescription i... Start Date: 09/01/21 Stop Date: 09/15/21 Status: Ordered Elbow Protector Pads Elbow Protector [...] 01/31/21 16:35:00 EDT, Route to Pharmacy Electronically, [email or web address] #[id number], 170, cm, 10/02/20 10:06:00EST, Height, 56.3, kg, 11/24/19 22:58:00 EST, Dry W... Start Date: 01/31/21 Status: Ordered furosemide 20 mg oral tablet 1, tablet, By Mouth, Daily, PRN, # 90 tablet, Refills 0, Tot. Refills 0, Maintenance, NEEDED FORLEG SWELLING, 04/19/20 15:50:00 EDT, Route to Pharmacy Electronically, [email or web address] #[id number],170, cm, 12/13/19 13:51:00 EST, Height, 56.3, kg, 0... Start Date: 04/19/20 Status: Ordered gabapentin 300 mg oral capsule 2, capsule, By Mouth, 3 times a day, # 180 capsule, Refills 1, Tot. Refills 1, Maintenance, 08/26/21 10:50:00 EDT, Route to Pharmacy Electronically, [email or web address] #[id number], 162.56, cm, 08/22/21 2:36:00 EDT, Height, 52.65, [...] tablet, 0 Refills, Maintenance, 09/10/21 16:04:00 EST, [email or web address] #[id number], 170, cm, 08/30/21 17:40:00 EDT, Height,51.5, kg, 08/30/21 17:40:00 EDT, Dry Weight Start Date: 09/10/21 Status: Ordered Lyrica 25 mg oral capsule 1 capsule = 25 mg, By Mouth, Daily, # 30 capsule, 2 Refills, Maintenance, 09/30/21 10:32:00 EST, Capsule, [email or web address] #[id number], Partial fill upon patient request if the prescription is for a schedule II opioid drug., 170, cm, 08/30/21 17:40:00... Start Date: 09/30/21 Status: Ordered Metoprolol Succinate ER 25 mg oral tablet, extended release 1 tablet = 25 mg, By Mouth, Daily, # 90 tablet, 1 Refills, Maintenance, 01/29/20 10:50:00 EDT, XL Tablet, [email or web address] #[id number], 170, cm, 12/13/19 13:51:00 EST, Height, 56.3, kg, 11/24/19 22:58:00 EST, Dry Weight Start Date: 01/29/20 Status: Ordered predniSONE 10 mg oral tablet See Instructions, 4 tabs x 3 days, 3 tabs x 3 days, 2 tabs x 3 days, 1 tab x 3 days, # 30 tablet, 0Refills, Acute 10/11/21 12:03:00 EST, 09/11/21 12:03:00 EST, Tablet, [facility] #[id number], Partial fill upon patient request if the [...] 3 Refills, Maintenance, 03/13/21 13:26:00 EDT, Tablet, [email or web address] #[id number], 170, cm, 10/02/20 10:06:00 EST, Height, 56.3, [...] Refills, Maintenance, 02/26/21 15:47:00 EDT, ER Tablet, [email or web address] #[id number], Partial fill upon patient requestif the prescription is for a schedule II opioid ivonne... Start Date: 02/26/21 Status: Ordered Ventolin HFA 108 mcg/inh inhalation aerosol with adapter 2 puffs, Inhalation, 4 times a day, PRN for wheezing, # 1 each, 0 Refills, Maintenance, 10/02/20 10:55:00 EST, Aerosol, [facility]/pharmacy #[id number], 170, cm, 10/02/20 10:06:00 EST, Height, 56.3, kg, 11/24/19 22:58:00 EST, Dry Weight Start Date: 10/02/20 Status: Ordered Vitamin B1 100 mg oral tablet 1, tablet, By Mouth, Daily, # 30 tablet, Refills 7, Tot. Refills 0, Acute, 01/06/21 14:35:00 EST, Route to Pharmacy Electronically, [email or web address] #[id number], 170, cm, 10/02/20 10:06:00 EST, Height, 56.3, kg, 11/24/19 22:58:00 EST, Dry Weight Start Date: 01/06/21 Status: Ordered Zofran 4 mg oral tablet 1 tablet = 4 mg, By Mouth, 3 times a day, PRN nausea, # 30 tablet, 0 Refills, Maintenance, :17:00 EDT, Tablet, [facility][id number], 170, cm, 12/13/19 13:51:00 EST, Height, 56.3, [...]
--- OUTSIDE RECORDS SUMMARY | 2023-08-21 08:37 | XMS_ITS | Continuity of Care Document ---
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 Name Role Phone Graciela Nunez MD Primary Care Physician [phone] Encounter [facility] Date(s): 07/21/23 - 07/23/[address] [id number] Encounter Diagnosis Atrial fibrillation with RVR(Final) - 07/21/23 BRBPR (bright red blood per rectum)(Final) - 07/21/23 Discharge Disposition: A-Transfer SNF Attending Physician: Addie Doll MD Admitting Physician: Ivelisse Hilton DO Referring Physician: Not on Staff, Referring MD [...] 23-valent vaccine 6 07/31/10 Recorded 1Result Comment: [phone] given w/out incident 2Location History: [place], [place] 3Admin Note: done @ dr jones office 4Location History: [facility] 5Location History: [facility] 6Location History: [facility] Medications acetaminophen 325 mg oral tablet [...] 05/25/23 15:31:00 EDT, Route to Pharmacy Electronically, [facility]/pharmacy #[id number], Partial fill upon patient request if the [...] release 180 mg, CD Capsule, By Mouth, 07/23/23 9:00:00 EDT Start Date: 07/23/23 Stop Date: 07/23/23 Status: Completed diltiazem 180 mg/24 hours oral [...] 12/03/22 9:01:00 EST, Route to Pharmacy Electronically, [facility]/pharmacy #[id number], 170, cm, 02/04/22 11:19:00 EDT, Height, 44.1, kg, 12/20/21 16:05:00 EST, Dry Weight Start Date: 12/03/22 Status: Ordered gabapentin 300 mg oral capsule 2, capsule, By Mouth, 3 times a day, # 180 capsule, Refills 5, Tot. Refills 5, Maintenance, 08/13/22 13:03:00 EDT, Route to Pharmacy Electronically, [facility]/pharmacy #[id number], 170, cm, 02/04/22 11:19:00 EDT, Height, 44.1, kg, 12/20/21 16:05:00 EST, Dry Weight Start Date: 08/13/22 Status: Ordered gabapentin 300 mg oral capsule 600 mg, Capsule, By Mouth, 07/23/23 9:00:00 EDT Start Date: 07/23/23 Stop Date: 07/23/23 Status: Completed hydrOXYzine hydrochloride 10 mg oral tablet 3 tablet = 30 mg, By Mouth, 3 times a day, PRN NEEDED FOR ANXIETY, # 270 tablet, 3 Refills, Maintenance, 03/01/23 12:03:00 EDT, [facility]/pharmacy #[id number], 170, cm, 02/04/22 [...] opioid drug. Start Date: 05/27/23 Status: Ordered Metoprolol Succinate ER 25 mg oral tablet, extended release 50 mg, XL Tablet, By Mouth, 07/23/23 9:00:00 EDT Start Date: 07/23/23 Stop Date: 07/23/23 Status: Completed Milk of Magnesia 8% oral suspension 30 [...] 3 Refills, Maintenance, 12/16/22 9:12:00 EST, Capsule, [facility]/pharmacy #[id number], Partial fill upon patient request if the [...] 30 capsule, 0 Refills, Maintenance, 06/24/23 19:50:00 EDT,[facility]/pharmacy #[id number], Partial fill upon [...] TSH Confirmed Active Underweight Confirmed Active Results Radiology Reports * Exam Date Time Procedure Performing Provider Status 07/21/23 12:[address] Angio Abdomen and Pelvis Colon , T atiana; Auth (Verified) Notes: (CT Angio Abdomen and Pelvis) Reason For Exam: GI bleed;Other: RESULT: CT Angio Abdomen and Pelvis CT Angio Abdomen and Pelvis INDICATION: Had large BM this AM with lots of bright red blood . On Eliquis; Clinical Question(s):Intestinal Bleeding COMPARISON: 12/12/2021 TECHNIQUE: Unenhanced axial images were obtained from diaphragm through the pelvis before, during (arterial) and after (portal venous) the intravenous administration of iodinated contrast. 100 cc of Omnipaque 300 was administered intravenously. Sagittal and coronal maximum intensity projection (MIP) images were reconstructed and rendered in both arterial and venous phases. Weight-based protocol using automatic tube modulation was used to optimize exposure parameters. RADIATION DOSE PARAMETERS: CTDIvol Body: 13.06 mGy, DLP Body: 1254 mGy*cm. VASCULAR FINDINGS: There is a moderate amount of hyperdense material within the colon on the pre-IV contrast portion of the examination. Given that, no evidence of active hemorrhage. Abdominal aorta: No aortic aneurysm or dissection. Moderate atherosclerotic vascular calcifications. Celiac axis: Patent with mild calcification at origin. Superior mesenteric artery: Patent with moderate calcification at origin. Right renal artery: Patent with mild calcification at origin. Left renal artery: Patent with mild calcification origin. Inferior mesenteric artery: Patent. Right common iliac artery: Patent with mild atherosclerotic calcifications. Right internal iliac artery: Patent with mild atherosclerotic calcifications. Right external iliac artery: Patent with mild atherosclerotic calcifications. Right common femoral artery: Patent with mild atherosclerotic calcifications. Visualized right superficial and deep femoral arteries: Patent. Left common iliac artery: Patent with mild atherosclerotic calcifications. Left internal iliac artery: Patent with mild atherosclerotic calcification. Left external iliac artery: Patent with mild atherosclerotic calcification. Left common femoral artery: Patent with mild atherosclerotic calcification. Visualized left superficial and deep femoral arteries: Patent. IVC and hepatic veins: Patent. Conventional preaortic left renal vein. Portal vein: Patent. Splenic vein: Patent. Superior mesenteric vein: Patent. Inferior mesenteric vein: Patent. Iliac and femoral veins: Patent. NONVASCULAR FINDINGS: It Infrastructure Architect View Findings, Lines and Tubes: None. Visualized Chest: Partially visualized small to moderate bilateral pleural effusions. The heart is normal in size. No pericardial effusion. Coronary vascular calcifications present. Diaphragm: Normal. Liver: Normal. Gallbladder: Contracted without evidence of gallbladder pathology. Bile ducts: No biliary ductal dilation. Spleen: Normal. Pancreas: Normal. Adrenal glands: Normal. Kidneys and ureters: Nonobstructing right lower pole stone measuring 3 mm and left lower pole measuring 4 mm. No hydronephrosis or suspicious masses. Bladder: Decompressed by Barnes catheter. Mild circumferential wall thickening may be due to under distention versus cystitis. Reproductive organs: Status post hysterectomy. Stomach, small bowel, and large bowel: Normal caliber stomach and bowel. No evidence of obstructionor surrounding inflammatory changes. Small volume ascites slightly limits evaluation of the bowel. Appendix: No evidence of acute appendicitis. Peritoneum and retroperitoneum: Small volume ascites. No pneumoperitoneum. No omental or mesentericlesions. Lymph nodes: No enlarged lymph nodes. Abdominal and pelvic wall: Diffuse subcutaneous edema. Partially imaged peripherally calcified leftbreast implant. Bones: No acute abnormality. Diffuse osteopenia. Moderate subacute/chronic compression fracture at L1 and L4, which are new since 12/12/2021. Mild compression fracture at T11 and T12 is unchanged from05/14/2023. Unchanged moderate compression fractures of L2 and L5. IMPRESSION: 1. Given the pre-existing hyperdense material within the colon, no evidence of active GI bleed. 2. Small to moderate bilateral pleural effusions. 3. Mild bladder wall thickening may be due to under distention versus cystitis. Correlation with urinalysis is recommended. 4. Small volume ascites. 5. Nonobstructing bilateral nephrolithiasis. 6. Moderate compression fracture L1 and L4 are new since 12/12/2021. I have personally reviewed the images and I agree with this report. WSN: [id number] Ordering Physician: Genesis Wells Dictated By: Crista Allred DO Dictated Date/Time: 07/21/23 5:07 pm Reviewed By: Mj Garcia MD Signed By: Mj Garcia MD Signed Date/Time: 07/21/23 5:12 pm Transcribed By: VALENTIN Transcribed Date/Time: 07/21/23 2:48 pm Vital Signs Most recent to oldest [Reference Range]: 1 2 3 Height 170 cm (07/23/23 10:10 AM) 170 cm (07/23/23 6:59 AM) 170 cm (07/23/23 4:24 AM) Weight 50 kg (07/21/23 8:35 PM) Oxygen Saturation [94-100 %] 93 % *L* (07/23/23 10:10 AM) 100 % (07/23/23 6:59 AM) 100 % (07/23/23 4:24 AM) Pulse Rate [55-90 bpm] 106 bpm *H* (07/23/23 10:10 AM) 88 bpm (07/23/23 8:00 AM) 88 bpm (07/23/23 7:59 AM) Body Mass Index [18.5-24.99 kg/m2] 17.3 kg/m2 *L* (07/21/23 8:35 PM) Blood Pressure [90-138/55-84 mm Hg] 17/56mm Hg *L* (07/23/23 10:10 AM) 116/47mm Hg (07/23/23 8:00 AM) 116/47mm Hg (07/23/23 7:59 AM) Respiratory Rate [16-30 br/min] 18 br/min (07/23/23 10:10 AM) 17 br/min (07/23/23 8:41 AM) 18 br/min (07/23/23 7:59 AM) Temperature [96.8-100.4 DegF] 98.2 DegF (07/23/23 10:10 AM) 97.7 DegF (07/23/23 6:59 AM) 97.6 DegF (07/23/23 4:24 AM) Liters per Minute 2 L/min (07/23/23 10:10 AM) 3 L/min (07/22/23 3:26 PM) 3 L/min (07/22/23 11:48 AM) Mode of Delivery (Oxygen) Nasal cannula (07/23/23 10:10 AM) Room air (07/23/23 6:59 AM) Room air (07/23/23 4:24 AM) Blood pressure sites Arm, right (07/23/23 10:10 AM) Arm, right (07/23/23 6:59 AM) Arm, right (07/23/23 4:24 AM) Temperature Route Oral (07/23/23 10:10 AM) Oral (07/23/23 6:59 AM) Oral (07/23/23 4:24 AM) Dry Weight 50 kg (07/21/23 8:35 PM) Social History Social History Type Response Tobacco Other: now smoking 1 .5 pack per day. Sex Admission evaluation note * Keaton ORTIZ, Vlad Lares: MODIFY, PERFORM Event Display: Admission Note Authored Date: [id number] Patient: ??KATERINE NICOLE ? Age:??62 Years?Sex:??Female?:??1960?? Chief Complaint/Reason for Consultation from [facility] - had large BM this AM with lots of bright red blood . on eliquis - facility held AM dose. pt denies any acute complaints. History of Present Illness 62-year-old female patient with multiple medical comorbidities including hyperlipidemia, paroxysmalatrial fibrillation/flutter on Eliquis, chronic obstructive pulmonary disease, chronic hypoxic respiratory failure on 6 L of oxygen at home, heart failure with midrange ejection fraction (EF40-45%), c hronic hyponatremia who presented to the emergency department for evaluation of bloody bowel movement with pain admitted for question of?? GI bleed and atrial fibrillation with rapid ventricular response. ?? Patient was recently admitted to the hospital from July 02 to July 20??with acute on chronic??hypoxic??and hypercarbic respiratory failure??secondary to??COPD exacerbation??requiring??BiPAP??placement. ??Patient was treated??with??antibiotic and steroid (on steroid taper). ??Her hospital co urse was complicated??difficult to control atrial fibrillation??requiring diltiazem drip??and medication adjustment. She was discharged to Rehab yesterday and reportedly had and episode of bloody bowel movement today. ??She denies??fever, chills, nausea, vomiting,??chest pain, shortness of breath,?? palpitation, abdominal pain,??or urinary symptoms. ?? In the emergency department she has been afebrile, hemodynamic stable, heart rate ranging between 100-110s (ED notes indicate heart rate going up to 130s), on 3-4 L of O2 with oxygen saturation above95%.?? Lab work significant for leukocytosis with white blood cell count of 21.5 stable anemia withhemoglobin of 11.5. CT abdomen and pelvis angiogram was unremarkable. ?? Later tonight patient had one bowel movement with no blood. Repeat CBC showed stable hemoglobin. Review of Systems Constitutional:?No weight loss, fever, chills, weakness or fatigue. Cardiovascular:??No chest pain,pressure or discomfort. No palpitations or pedal edema. Respiratory:??No shortness of breath, cough or sputum production. Gastrointestinal:?No anorexia, nausea, vomiting or diarrhea. No abdominal pain or blood in stool. Genitourinary: No burning micturition. No urinary frequency or incontinence. Neurologic: No headache, dizziness, syncope, unilateral weakness, ataxia, numbness or tingling in the extremities. No change in bowel or bladder control (she has a Barnes catheter in place) Musculoskeletal: No muscle pain, back pain, joint pain or stiffness. Hematologic: No bleeding or bruising. Lymphatics: No enlarged lymph nodes. Psychiatric: No depression or anxiety. Endocrine: No reports of sweating. No cold or heat intolerance. No polyuria or polydipsia. All other systems were reviewed and are negative.?? Objective Vital Signs?? Temperature: 98 DegF (07/21/23 22:07:00) Temperature Route: Oral (07/21/23 22:07:00) Pulse Rate: 89 bpm (07/21/23 22:07:00) Respiratory Rate: 18 br/min (07/21/23 22:07:00) Systolic Blood Pressure: 124 mm Hg (07/21/23 22:07:00) Diastolic Blood Pressure: 69 mm Hg (07/21/23 22:07:00) Blood pressure sites: Arm, right (07/21/23 22:07:00) Mean Arterial Pressure: 87 mm Hg (07/21/23 22:07:00) Pulse Pressure: 55 mm Hg (07/21/23 22:07:00) Oxygen Saturation: 97 % (07/21/23 22:07:00) Liters per Minute: 3.5 L/min (07/21/23 22:07:00) Mode of Delivery (Oxygen): Nasal cannula (07/21/23 22:07:00) Early Warning Score: 3 (07/21/23 22:07:47) ? Physical Exam Constitutional: Alert, in no acute distress. Head: Normocephalic. Eyes: Pupils are equal, round and reactive to light. Extraocular muscles intact. No pallor or scleral icterus Ear, Nose and Throat: mucous membranes moist. Ears and nose - no obvious deformities. Neck: No JVD or bruits. Respiratory:??Clear to auscultation. No wheezing or rhonchi.??No use of accessory muscles.?? Cardiovascular:??S1 S2 regular. No murmurs, rubs or gallops. Gastrointestinal:??Abdomen soft, non-tender, non-distended. Genitourinary:??No costovertebral angle tenderness. Extremities: No lower extremity pitting edema. No cyanosis or clubbing. Neurologic:??AAOx3, Cranial nerves II-XII grossly intact. Speech normal, no facial droop. No focal neurological deficits. Moves all extremities spontaneously. Skin:??No rash.?? Musculoskeletal:??No gross deformities on inspection. Muscle strength within normal limits Heme/Lymphatics:??Palpation of neck reveals no swelling or tenderness of neck nodes.?? Psychiatric: Normal mood and affect. Assessment/Plan 62-year-old female patient with multiple medical comorbidities including hyperlipidemia, paroxysmalatrial fibrillation/flutter on eliquis, chronic obstructive pulmonary disease, chronic hypoxic respiratory failure on 6 L of oxygen at home, heart failure with midrange ejection fraction (EF40-45%), c hronic hyponatremia who presented to the emergency department for evaluation of bloody bowel movement with pain admitted for question of?? GI bleed and atrial fibrillation with rapid ventricular response. ? Active Problem list:?? 1. ??BRBPR (bright red blood per rectum) ??(K62.5) She was discharged to Rehab yesterday and reportedly had and episode of bloody bowel movement today.? She has been afebrile, hemodynamic stable, Lab work significant for stable anemia with hemoglobin of 11.5. CT abdomen and pelvis angiogram was unremarkable. Later tonight patient had one bowel movement with no blood. Repeat CBC showed stable hemoglobin. Consistent with lower GI bleed. - hold Eliquis for now. - monitor for bloody bowel movement. - Repeat CBC in AM. - GI consult in AM. ? 2. ??Chronic respiratory failure with hypoxia ??(J96.11) 3. ??End stage COPD ??(J44.9) Patient was recently admitted to the hospital from July 02 to July 20??with acute on chronic??hypoxic??and hypercarbic respiratory failure??secondary to??COPD exacerbation??requiring??BiPAP??placement. ??Patient was treated??with??antibiotic and steroid (on steroid taper). ?? - continue taper prednisone 30 mg for 2 days, 30 mg for 3 days, 20 mg for 3 days, 10 mg for 5 days. - albuterol inhaler as needed. - We do not have Spiriva - will give Breo Ellipta while in hospital. ? 4. ??Atrial fibrillation ??(I48.91) 5. ??Heart failure with mid-range ejection fraction ??(I50.22) Her hospital course was complicated??difficult to control atrial fibrillation??requiring diltiazem drip??and medication adjustment. She was discharged to rehab on diltiazem 180 mg daily, Metoprolol 50 mg daily. and digoxin. heart rate ranging between 100-110s in ED??(ED notes indicate heart rate going up to 130s). HR now in 60s-80s. - continue digoxin, metoprolol and diltiazem. - hold anticoagulation. ?? 6. ??Hyperlipidemia ??(E78.5): continue statin. ?? Prophylaxis: VTE: hold chemical prophylaxis given concern for GI bleed. GI: PO pantoprazole ?? Goal of care: Code Status: full code ? Histories Allergies Allergies ?(Active and Proposed Allergies [...] Hysterectomy Osteopetrosis Breast implant ? Social History Alcohol Details:??Use: Never. Exercise Details:??Regular exercise: No. Nutrition/Health Details:??Caffeine intake amount: 2 CUPS DAILY. Substance Abuse Details:??Use: Never. Tobacco Details:??Other: now smoking 1.5 pack per day. Details:??Current every day smoker, Tobacco use times per day: smokes about 1.5 packs per day. ? Family History Mother: Cancer of lung Father: Brain tumor ? 09-MAR-2015 22:20:40<$> Other: Hypertension Sister: Cancer of colon ? Medications Home Medications Acetaminophen (acetaminophen 325 mg oral tablet)?650?Milligram?2?tablet?By [...] Atorvastatin (atorvastatin 20 mg oral tablet)?1?tab(s)?20?Milligram?By Mouth?Daily Baclofen (baclofen 10 mg oral tablet)?10?Milligram?1?tablet?By Mouth?2 times a day?as needed?for 14?Days?Pain , Moderate Bisacodyl (Dulcolax 10 mg rectal suppository)?1?suppository(ies)?10?Milligram?Rectall y?Daily?as needed?as needed for constipation Budesonide-Formoterol (Symbicort 160mcg/4.5mcg Inhaler)?2?puff(s)?Inhalation?2 times a day Cholecalciferol (Vitamin D3 1000 intl units oral capsule)?1?capsule?25?Microgram?By Mouth?Daily Digoxin (digoxin 0.25 mg oral tablet)?250?Microgram?1?tablet?By Mouth?Daily Diltiazem (diltiazem 180 mg/24 hours oral capsule, extended release)?180?Milligram?By Mouth?Daily Docusate (docusate sodium 100 mg oral capsule)?1?capsule?100?Milligram?By Mouth?2times a day?as needed?as needed for constipation Durable Medical Equipment (Wheelchair)?See Instructions?small sizewt: 100 [...] then stop Sertraline (sertraline 25 mg oral tablet)?1?tab(s)?25?Milligram?By Mouth?Daily Tiotropium (Spiriva HandiHaler 18 mcg inhalation capsule)?1?capsule?18?Microgram?Inhalation?Daily?for 30?Days Tramadol (traMADol 50 mg oral tablet)?1?tab(s)?50?Milligram?By Mouth?3 times a day with meals?TAKE 1 TABLET BY MOUTH 3 TIMES A DAY FOR 7 DAYS NEEDED FOR PAIN ? Results Recent Labs BLOOD COUNT & DIFF WBC 21.5 k/mm3 (High)?? 07/21/2023 11:09 RBC 3.72 m/mm3 (Low)?? 07/21/2023 11:09 Hgb 11.5 Gm/dL (Low)?? 07/21/2023 11:09 Hct 36.7 % ()?? 07/21/2023 11:09 MCV 98.7 femtoliters ()?? 07/21/2023 11:09 MCH 30.9 pg ()?? 07/21/2023 11:09 MCHC 31.3 g/dL (Low)?? 07/21/2023 11:09 Platelet Count 300 k/mm3 ()?? 07/21/2023 11:09 RDW-SD 47.4 femtoliters (High)?? 07/21/2023 11:09 MPV 9.8 femtoliters ()?? 07/21/2023 11:09 Nucleated RBC (Automated) 0.0 #/100 WBC'S ()?? 07/21/2023 11:09 Abs. NRBC 0.0 k/mm3 ()?? 07/21/2023 11:09 Abs. Neut 19.8 k/mm3 (High)?? 07/21/2023 11:09 Abs. Lymph 0.4 k/mm3 (Low)?? 07/21/2023 11:09 Abs. [place] 0.8 k/mm3 ()?? 07/21/2023 11:09 Abs. Eo 0.0 k/mm3 ()?? 07/21/2023 11:09 Abs. Baso 0.1 k/mm3 ()?? 07/21/2023 11:09 Neut % 92.2 % (High)?? 07/21/2023 11:09 Lymph % 1.8 % (Low)?? 07/21/2023 11:09 [place] % 3.8 % (Low)?? 07/21/2023 11:09 Eos % 0.1 % ()?? 07/21/2023 11:09 Baso % 0.2 % ()?? 07/21/2023 11:09 Imm Gran 1.9 % ()?? 07/21/2023 11:09 Abs. Imm Gran 0.4 k/mm3 ()?? 07/21/2023 11:09 ?? CHEM GENERAL Sodium 136 mmol/L ()?? 07/21/2023 11:09 Potassium 4.5 mmol/L ()?? 07/21/2023 11:09 Chloride 85 mmol/L (Low)?? 07/21/2023 11:09 Bicarbonate Level 50 mmol/L (Critical)?? 07/21/2023 11:09 Anion Gap 1 (Low)?? 07/21/2023 11:09 Glucose Level 169 mg/dL (High)?? 07/21/2023 11:09 BUN 23 mg/dL ()?? 07/21/2023 11:09 Creatinine-Blood 0.3 mg/dL (Low)?? 07/21/2023 11:09 Estimated GFR Creatinine 117 ML/MIN/1.73 M2 ()?? 07/21/2023 11:09 Calcium 9.6 mg/dL ()?? 07/21/2023 11:09 Magnesium 1.9 mg/dL ()?? 07/20/2023 00:52 Protein, Total 4.8 Gm/dL (Low)?? 07/21/2023 11:09 Albumin 3.5 Gm/dL ()?? 07/21/2023 11:09 AG Ratio 2.7 ()?? 07/21/2023 11:09 Alkaline Phosphatase 123 units/L (High)?? 07/21/2023 11:09 AST (SGOT) 18 units/L ()?? 07/21/2023 11:09 ALT (SGPT) 104 units/L (High)?? 07/21/2023 11:09 Bilirubin, Total 0.4 mg/dL ()?? 07/21/2023 11:09 ?? COAG INR 1.0 ()?? 07/21/2023 11:09 Protime (PT) 10.9 seconds ()?? 07/21/2023 11:09 APTT 22.1 seconds (Low)?? 07/21/2023 11:09 ?? URINE OTHER Est Creatinine Clearance 149.54 mL/min ()?? 07/21/2023 20:41 ?? VIROLOGY COVID-19 by RT-PCR NEGATIVE ()?? 07/21/2023 11:15 ? (07/21/2023 12:[address] Angio Abdomen and Pelvis) IMPRESSION: ?? 1. ??Given the pre-existing hyperdense material within the colon, no evidence of active GI bleed. 2. ??Small to moderate bilateral pleural effusions. 3. ??Mild bladder wall thickening may be due to under distention versus cystitis. Correlation with urinalysis is recommended. 4. ??Small volume ascites. 5. ??Nonobstructing bilateral nephrolithiasis. 6. ??Moderate compression fracture L1 and L4 are new since 12/12/2021. [1] [1]??CT Angio Abdomen and Pelvis; Mj Garcia MD 07/21/2023 12:25 EDT EKG study * Event Display: ECG 12-Lead Authored Date: Please click on pdf link to open report * Event Display: ECG 12-Lead Authored Date: Ventricular Rate: 114 BPM QRS Duration: 78 ms Q-T Interval: 296 ms QTC Calculation(Bazett): 407 ms R [place]: 45 degrees T [place]: 218 degrees Atrial fibrillation with rapid ventricular response Left ventricular hypertrophy with repolarization abnormality ( Franklyn product ) Cannot rule out Septal infarct , age undetermined Abnormal ECG When compared with ECG of 11-JUL-2023 19:48, Significant changes have occurred Confirmed by LIMA MOLINA MD ([id number]) on 07/21/2023 4:46:59 PM Dubois: LIMA MOLINA MD Cardiology * Event Display: Cardiac Rhythm Strips Authored Date: * Event Display: Cardiac Rhythm Strips Authored Date: Hospital Progress note * Alex LUIS, Alyssa: PERFORM, SIGN, VERIFY Event Display: Progress Note Hospital Authored Date: Patient: KATERINE NICOLE Age: 62 years Sex: Female : 1960 Associated Diagnoses: None Author: Alyssa Johnson RN Findings Nursing Data Vital Signs : VITAL SIGNS SECTION 07/23/2023 6:59 EDT Early Warning Score 3.00 07/23/2023 6:59 EDT Temperature 97.7 DegF Temperature Route Oral Pulse Rate 88 bpm Respiratory Rate 20 br/min Systolic Blood Pressure 116 mm Hg Diastolic Blood Pressure 47 mm Hg L Blood pressure sites Arm, right Mean Arterial Pressure 70 mm Hg Pulse Pressure 69 mm Hg Oxygen Saturation 100 % Mode of Delivery (Oxygen) Room air . Narrative/Incidental Pt is alert & oriented x4. Speech is clear. BLOOM. Reports mild HERNANDEZ and chronic low back pain; didnot want to take Tylenol this AM. Denies dizziness, n/t, vision changes. (+) generalized weakness, patient is bedfast and has good bed mobility. LS diminished. Denies chest pain, cough, palps. O2 on 2L via NC. (+) sob at rest and made worse with minimal activity i.e. changing positions in bed. Abd snt (+) Bs x4. LBM 07/22. (+) flatus. Tolerating regular diet, although reports mild nausea. Swallowing intact, takes pills whole with thin liquid. BLE with ecchymosis. Has a stage II on right buttock, which needs Triad applied (not available at this time). Plan: d/c today, report given to S34 d/c unit to Delia LUIS. Delia informed that Triad pending to be applied to right buttock. . * Sharmila ORTIZ, Addie: PERFORM Event Display: Progress Note Hospital Authored Date: Patient: ??KATERINE NICOLE ? Age:??62 Years?Sex:??Female?:??1960?? Subjective seen and examined at bedside ??No further episode of rectal bleeding today ??Hb stable no worsening SOB? Review of Systems All other systems reviewed, negative except mentioned.?? Allergies Allergies ?(Active and Proposed Allergies Only) Lyrica? (Severity: Unknown severity, Onset: Unknown) ?Reactions: increased depression morphine? (Severity: Unknown severity, Onset: Unknown) ?Reactions: respiratory depression codeine? (Severity: Moderate, Onset: Unknown) ?Reactions: Nausea, Rash sulfADIAZINE? (Severity: Moderate, Onset: Unknown) ?Reactions: Rash ? Objective Measurements?? Height: 170 cm (07/22/23) Weight: 50 kg (07/21/23) Dry Weight: 50 kg (07/21/23) Body Mass Index:??17.3 kg/m2??Low (07/21/23) ? Physical Exam GENERAL: In no apparent distress, chronically ill looking HEENT: Head normocephalic, PERRL,Moist mucous membrane. Neck supple CARDIOVASCULAR: Normal rate and rhythm, no murmurs, no rubs, no gallops RESPIRATORY: Lungs clear to auscultation, no wheezes , no crackles ABDOMEN/GI: Nondistended, soft, nontender, normal bowel sounds EXTREMITIES: No pitting edema CHILDREN'S COUNSELOR: Alert and oriented x 3.Non focal neuro exam. ? Results Recent Labs BLOOD COUNT & DIFF WBC 17.6 k/mm3 (High)?? 07/22/2023 01:23 RBC 3.65 m/mm3 (Low)?? 07/22/2023 01:23 Hgb 11.1 Gm/dL (Low)?? 07/22/2023 01:23 Hct 36.1 % ()?? 07/22/2023 01:23 MCV 98.9 femtoliters ()?? 07/22/2023 01:23 MCH 30.4 pg ()?? 07/22/2023 01:23 MCHC 30.7 g/dL (Low)?? 07/22/2023 01:23 Platelet Count 282 k/mm3 ()?? 07/22/2023 01:23 RDW-SD 47.8 femtoliters (High)?? 07/22/2023 01:23 MPV 9.9 femtoliters ()?? 07/22/2023 01:23 Nucleated RBC (Automated) 0.0 #/100 WBC'S ()?? 07/22/2023 01:23 Abs. NRBC 0.0 k/mm3 ()?? 07/22/2023 01:23 Abs. Neut 19.8 k/mm3 (High)?? 07/21/2023 11:09 Abs. Lymph 0.4 k/mm3 (Low)?? 07/21/2023 11:09 Abs. [place] 0.8 k/mm3 ()?? 07/21/2023 11:09 Abs. Eo 0.0 k/mm3 ()?? 07/21/2023 11:09 Abs. Baso 0.1 k/mm3 ()?? 07/21/2023 11:09 Neut % 92.2 % (High)?? 07/21/2023 11:09 Lymph % 1.8 % (Low)?? 07/21/2023 11:09 [place] % 3.8 % (Low)?? 07/21/2023 11:09 Eos % 0.1 % ()?? 07/21/2023 11:09 Baso % 0.2 % ()?? 07/21/2023 11:09 Imm Gran 1.9 % ()?? 07/21/2023 11:09 Abs. Imm Gran 0.4 k/mm3 ()?? 07/21/2023 11:09 ?? CHEM GENERAL Sodium 136 mmol/L ()?? 07/22/2023 01:23 Potassium 4.7 mmol/L ()?? 07/22/2023 01:23 Chloride 87 mmol/L (Low)?? 07/22/2023 01:23 Bicarbonate Level 44 mmol/L (Critical)?? 07/22/2023 01:23 Anion Gap 5 ()?? 07/22/2023 01:23 Glucose Level 126 mg/dL (High)?? 07/22/2023 01:23 BUN 21 mg/dL ()?? 07/22/2023 01:23 Creatinine-Blood 0.4 mg/dL (Low)?? 07/22/2023 01:23 Estimated GFR Creatinine 109 ML/MIN/1.73 M2 ()?? 07/22/2023 01:23 Calcium 8.8 mg/dL ()?? 07/22/2023 01:23 Protein, Total 4.8 Gm/dL (Low)?? 07/21/2023 11:09 Albumin 3.5 Gm/dL ()?? 07/21/2023 11:09 AG Ratio 2.7 ()?? 07/21/2023 11:09 Alkaline Phosphatase 123 units/L (High)?? 07/21/2023 11:09 AST (SGOT) 18 units/L ()?? 07/21/2023 11:09 ALT (SGPT) 104 units/L (High)?? 07/21/2023 11:09 Bilirubin, Total 0.4 mg/dL ()?? 07/21/2023 11:09 ?? COAG INR 1.0 ()?? 07/21/2023 11:09 Protime (PT) 10.9 seconds ()?? 07/21/2023 11:09 APTT 22.1 seconds (Low)?? 07/21/2023 11:09 ?? URINE OTHER Est Creatinine Clearance 112.15 mL/min ()?? 07/22/2023 03:11 ?? VIROLOGY COVID-19 by RT-PCR NEGATIVE ()?? 07/21/2023 11:15 ? Assessment/Plan ??62-year-old female patient with multiple medical comorbidities including hyperlipidemia, paroxysmal atrial fibrillation/flutter on eliquis, chronic obstructive pulmonary disease, chronic hypoxic respiratory failure on 6 L of oxygen at home, heart failure with midrange ejection fraction (EF40-45%), chronic hyponatremia who presented to the emergency department for evaluation of bloody bowel movement with pain admitted for question of?? GI bleed and atrial fibrillation with rapid ventricular response. ? Active Problem list:?? 1. ??BRBPR (bright red blood per rectum) ??(K62.5) She was discharged to Rehab yesterday and reportedly had and episode of bloody bowel movement today.? She has been afebrile, hemodynamic stable, Lab work significant for stable anemia CT abdomen and pelvis angiogram was unremarkable. ??No ongoing rectal bleed Eliquis on hold ??Waiting on GI evaluation ??Trend HB ? 2. ??Chronic respiratory failure with hypoxia ??(J96.11) 3. ??End stage COPD ??(J44.9) Patient was recently admitted to the hospital from July 02 to July 20??with acute on chronic??hypoxic??and hypercarbic respiratory failure??secondary to??COPD exacerbation??requiring??BiPAP??placement. ??Patient was treated??with??antibiotic and steroid (on steroid taper). ?? - continue taper prednisone 30 mg for 2 days, 30 mg for 3 days, 20 mg for 3 days, 10 mg for 5 days. - albuterol inhaler as needed. - We do not have Spiriva - will give Breo Ellipta while in hospital. ? 4. ??Atrial fibrillation ??(I48.91) 5. ??Heart failure with mid-range ejection fraction ??(I50.22) Her hospital course was complicated??difficult to control atrial fibrillation??requiring diltiazem drip??and medication adjustment. She was discharged to rehab on diltiazem 180 mg daily, Metoprolol 50 mg daily. and digoxin. heart rate ranging between 100-110s in ED??(ED notes indicate heart rate going up to 130s). HR now in 60s-80s. - continue digoxin, metoprolol and diltiazem. - hold anticoagulation as mentioned ?? 6. ??Hyperlipidemia ??(E78.5): continue statin. ?? Prophylaxis: VTE: hold chemical prophylaxis given concern for GI bleed. GI: PO pantoprazole ?? Goal of care: Code Status: full code OMN; need GI consult, anticipate DC back to SNF within next 24-48 hr if Hb stable * Maricel Todd RN: PERFORM, SIGN, VERIFY Event Display: Progress Note Hospital Authored Date: Patient: KATERINE NICOLE Age: 62 years Sex: Female : 1960 Associated Diagnoses: None Author: Maricel Todd RN Admitted from ED, pt a/ox4, following commands appropriately, remains afebrile, VS wnl. Respirations even and unlabored on room air, LS CTA,+cms and pps to all extremities, has 2+ pitting edema BLE. ABD soft, nontender +BS to all quads, denies NVD, tolerating po intake without difficulty. has a urinary catheter from home, draining clear urine. Educated patient on plan of care and call hudson use, fall risk precautions in place, call hudson within reach. See CIS for full assessment and flow sheets. Discharge Information Case Management Discharge Plan : Case Management Discharge Plan Data 07/20/2023 14:52 EDT Discharge Level of Care at Discharge [facility] Discharge Nursing Homes/Rehab Facilities [facility] 07/20/2023 12:38 EDT Discharge Level of Care at Discharge [facility] Discharge Nursing Homes/Rehab Facilities [facility] Discharge Transportation Arranged [facility] [address] [place] [address] Discharge Arranged Transport Date/Time 07/20/2023 14:00 Mode of Transportation Arranged Ambulance Agency Human Resources Associate #1 Intake Service Categories #1 Oxygen Therapy, Physical Therapy, [facility] Service Comments #1 You are being discharged to rehab at [facility]. Name of Person Notified of Transfer Pt. [...] Mask Type Full CPAP/BiPAP Mask Size Small Consult note * Tyrone Hughes DO: PERFORM, MODIFY, MODIFY, MODIFY, MODIFY, MODIFY Event Display: Consultation Note Authored Date: Patient: ??SAYRALALAKaity FIDELZEB ? Age:??62 Years?Sex:??Female?:??1960?? Referrring Provider Vlad Pugh MD Chief Complaint from [facility] - had large BM this AM with lots of bright red blood . on eliquis - facility held AM dose. pt denies any acute complaints. Reason for Consultation BRBPR History of Present Illness Katerine Nicole is a 61-year-old female with a pertinent past medical history 04/17/2021 hyperlipidemia, paroxysmal atrial fibrillation on Eliquis, chronic obstructive pulmonary disease, chronic hypoxic respiratory failure on 6 L, heart failure with an EF of 40 to 45% who presents to [facility] in the setting of bloody bowel movements with pain. ?? Patient was recently admitted to the hospital from July 02 doses July 20 with acute on chronic hypoxic and hypercarbic respiratory failure secondary to COPD exacerbation.?? Patient was treated with antibiotics and a steroid taper.?? Her hospital stay has been complicated by A-fib with RVR.?? She was discharged in stable condition to halfway facility where she was sent back due sallie episode of bloody bowel movement. ?? Upon presenting to [facility] patient was found to be hemodynamically stable and afebrile.?? On presentation patient was found to have a WBC 21.5 with a neutrophil predominance.?? Patient's hemoglobin was noted to be 11.5 with a hematocrit of 36.7.?? This appears to be at the patient's baseline.?? Patient has had 2 subsequent CBCs since then her hemoglobin and hematocrit has remained stable. Overnight patient??had a DANA??performed which showed no bright red blood per rectum.?? Nurse also comments that she had 1 bowel movement with no bright red blood noted. ??No further bleeding since being admitted. ??Patient notes that she had a colonoscopy??a few years prior??at [facility]. ?Records ar e not available.?? Patient is currently on apixaban, but no NSAIDs or ibuprofen.?? Review of Systems A complete review of systems has been performed??and determined to be negative unless otherwise noted above in the patient's??HPI. Physical Exam Vitals & Measurements T:??98.2?F?? TMIN:??97.6?F?? TMAX:??98.4?F?? HR:??92??(Peripheral)?? RR:??19?? BP:??138/51?? SpO2:??100%?? WT:??50??kg?? Constitutional: Alert, in no distress. Mental Status: Oriented to person, place and time. Head: Normocephalic. Eyes: Extraocular muscles intact. Ear, Nose and Throat: Oropharynx clear, mucous membranes moist. Ears and nose without masses, lesions or deformities. Trachea midline. Neck: Supple, Full range of motion. Respiratory: Clear to auscultation. On NC at 3L. Cardiovascular: S1 S2 regular. Gastrointestinal: Abdomen soft, non-tender, non-distended. Neurologic: No focal neurological deficits. Skin: Ecchymosis. Musculoskeletal: No gross deformities. No lower extremity edema. Assessment/Plan 61-year-old female with a pertinent past medical history 04/17/2021 hyperlipidemia, paroxysmal atrial fibrillation on Eliquis, chronic obstructive pulmonary disease, chronic hypoxic respiratory failure on 6 L, heart failure with an EF of 40 to 45% who presents to [facility] in the setting of bloody bowel movements with pain. ?? Diagnoses: 1. ??Hematochezia ?? Patient represents to [facility]??after being discharged to a rehab facility with a concern of hematochezia with bright red blood and clots per rectum. ??Patient's hemoglobin and hematocrit remains at his baseline. ??No further bright red blood or melena noted per rectum. ??Patient does have a slight normocytic anemia which appears to be at his baseline. ??Prior colonoscopy without records. ??Differential at this time could include hemorrhoidal bleed versus a diverticular bleed although less likelygiven that the patient had no change in her H&H. ??Could also consider possible rectal ulcer. ?? At this time patient is not interested??in having endoscopic evaluation with a?colonoscopy.?? This has been previously brought up to her attention??and she was not interested then either.?? Patient??to follow-up with PCP. ??We will be available to schedule colonoscopy??if need be in the outpatient setting. ?? Recommendations: ?Maintain 2 large-bore IV lines. ?Restrict antithrombotic therapy to the extent acceptable from the point of thrombotic risk. ?Watch for evidence of active bleeding (drop in Hgb, hypotension, hematochezia, hematemesis). ?RBC transfusion if needed to keep Hgb > 7 gm/dL. ?No endoscopic evaluation at this time ?Primary team to obtain records from prior colonoscopy. Attending Attestation Thank you for referring this patient to the Division of Gastroenterology, [facility] [place] [place]. ??I appreciate the opportunity to participate in the care of your patient, and would be happy to assist you in future. ?? (The above document was created using [employer] voice recognition software. As such, chalk machine operator errors may occur. Please contact the provider for additional questions and if clarification is needed.) ? Tyrone Hughes, DO PGY-5 Gastroenterology Fellow [facility] Division of Gastroenterology [email or web address] ?? Attestation: Patient??was seen and discussed with the attending, Dr. Ruben Ashby. Problem List/Past Medical History Ongoing Abnormal TSH Anxiety At risk for falls Atrial fibrillation Bradycardia Breast pain Cervical radiculopathy Chronic respiratory failure with hypoxia Compression fracture of lumbar vertebra Compression fracture of spine Constipation End stage COPD Heart failure with mid-range ejection fraction Hyperlipidemia Hyponatremia Leg swelling Lung nodule Osteoporosis Paroxysmal atrial flutter Peripheral neuropathy Pulmonary nodule Raynaud's phenomenon Rectal bleed T12 compression fracture Thoracic compression fracture Underweight Procedure/Surgical History ???Breast implant???Hysterectomy???Osteopetrosis Medications Inpatient Acetaminophen Tablet, 650 mg, By Mouth, Every 4 hours, PRN Albuterol 0.083% inhalation francheska, 2.5 mg= 3 mL, BAND Nebulizer, Every 4 hours, PRN aspirin 81 mg oral delayed release tablet, 81 mg, By Mouth, Daily atorvastatin 20 mg oral tablet, 20 mg, By Mouth, Daily Atrovent 0.02% inhalation francheska, 0.5 mg= 2.5 mL, BAND Nebulizer, 3 times a day Breo Ellipta 100 mcg-25 mcg Inhaler, 1 puffs, Inhalation, Daily digoxin 0.25 mg oral tablet, 250 mcg, By Mouth, Daily diltiazem 180 mg/24 hours oral capsule, extended release, 180 mg, By Mouth, Daily Docusate Sodium Capsule, 100 mg= 1 capsule, By Mouth, 2 times a day, PRN gabapentin 300 mg oral capsule, 600 mg, By Mouth, 3 times a day Influenza, Quadrivalent Vaccine (Fluzone Quad), 0.5 mL, Intramuscular, Once Lasix 40 mg oral tablet, 40 mg, By Mouth, Daily Melatonin Tablet, 3 mg, By Mouth, Daily at bedtime, PRN Metoprolol Succinate ER 25 mg oral tablet, extended release, 50 mg, By Mouth, Daily MiraLax Powder, 17 Gm= 1 pack/packet, By Mouth, Daily, PRN NaCL 0.9% Flush, 3 mL, IV Push, Every 8 hours NaCL 0.9% Flush, 3 mL, IV Push, Every 8 hours, PRN pantoprazole 40 mg oral delayed release tablet, 40 mg, By Mouth, Daily predniSONE 20 mg oral tablet, 40 mg, By Mouth, Daily Robitussin DM Liquid, 10 mL, By Mouth, Every 4 hours, PRN Senna Tablet, 8.6 mg= 1 tablet, By Mouth, 2 times a day, PRN sertraline 25 mg oral tablet, 25 mg, By Mouth, Daily Simethicone Tablet, 80 mg, Chew, 3 times a day, PRN Home acetaminophen 325 mg oral tablet, 650 mg= 2 tablet, By Mouth, Every 4 hours, PRN albuterol-ipratropium 3 mg-0.5 mg/3 ml inhalation solution, 3 mL, Neb, 4 times a day, PRN apixaban 5 mg oral tablet, 5 mg, By Mouth, 2 times a day aspirin 81 mg oral delayed release tablet, 81 mg= 1 tablet, By Mouth, Daily Ativan 1 mg oral tablet, 1 mg, By Mouth, 2 times a day, PRN atorvastatin 20 mg oral tablet, 20 mg= 1 tablet, By Mouth, Daily baclofen 10 mg oral tablet, 10 mg= 1 tablet, By Mouth, 2 times a day, PRN, 2 refills Compression Stockings, See Instructions, 12 refills digoxin 0.25 mg oral tablet, 250 mcg= 1 tablet, By Mouth, Daily diltiazem 180 mg/24 hours oral capsule, extended release, 180 mg, By Mouth, Daily docusate sodium 100 mg oral capsule, 100 mg= 1 capsule, By Mouth, 2 times a day, PRN Dulcolax 10 mg rectal suppository, 10 mg= 1 supp, Rectally, Daily, PRN folic acid 1 mg oral tablet, 1 mg= 1 tablet, By Mouth, Daily, 11 refills gabapentin 300 mg oral capsule, 2 capsule, By Mouth, 3 times a day, 5 refills hydrOXYzine hydrochloride 10 mg oral tablet, 30 mg= 3 tablet, By Mouth, 3 times a day, PRN, 3 refills Lasix 40 mg oral tablet, 40 mg= 1 tablet, By Mouth, Daily Metoprolol Succinate ER 25 mg oral tablet, extended release, 50 mg= 2 tablet, By Mouth, 2 times a day Milk of Magnesia 8% oral suspension, 2.4 Gm= 30 mL, By Mouth, Daily at bedtime, PRN multivitamin Multiple Vitamins oral capsule, 1 capsule, By Mouth, Daily, 3 refills Nicotine, 21 mg, Topically, Daily pantoprazole 40 mg oral delayed release tablet, 40 mg= 1 tablet, By Mouth, Daily, 5 refills predniSONE 20 mg oral tablet, 40 mg= 2 tablet, By Mouth, Daily sertraline 25 mg oral tablet, 25 mg= 1 tablet, By Mouth, Daily Shower Stool, See Instructions Spiriva HandiHaler 18 mcg inhalation capsule, 18 mcg= 1 capsule, Inhalation, Daily Symbicort 160mcg/4.5mcg Inhaler, 2 puffs, Inhalation, 2 times a day TOILET SEAT, See Instructions traMADol 50 mg oral tablet, 50 mg= 1 tablet, By Mouth, 3 times a day with meals Ventolin HFA 108 mcg/inh inhalation aerosol with adapter, 2 puffs, Inhalation, 4 times a day, PRN Vitamin D3 1000 intl units oral capsule, 25 mcg= 1 capsule, By Mouth, Daily, 11 refills Wheel chair cushion, See Instructions Wheelchair, See Instructions Allergies codeine??(Rash, Nausea) sulfADIAZINE??(Rash) Lyrica??(increased depression) morphine??(respiratory depression) Social History Alcohol Use: Never. Exercise Regular exercise: No. Nutrition/Health Caffeine intake amount: 2 CUPS DAILY. Substance Abuse Use: Never. Tobacco Other: now smoking 1.5 pack per day. Family History Brain tumor 09-MAR-2015 22:20:40<$>: Father. Cancer of colon: Sister. Cancer of lung: Mother. Hypertension: Other. Lab Results Test Name Test Result Date/Time WBC 17.6 k/mm3 07/22/2023 01:23 EDT RBC 3.65 m/mm3 07/22/2023 01:23 EDT Hgb 11.1 Gm/dL 07/22/2023 01:23 EDT Hct 36.1 % 07/22/2023 01:23 EDT MCV 98.9 femtoliters 07/22/2023 01:23 EDT MCH 30.4 pg 07/22/2023 01:23 EDT MCHC 30.7 g/dL 07/22/2023 01:23 EDT Platelet Count 282 k/mm3 07/22/2023 01:23 EDT Sodium 136 mmol/L 07/22/2023 01:23 EDT Potassium 4.7 mmol/L 07/22/2023 01:23 EDT Chloride 87 mmol/L 07/22/2023 01:23 EDT Bicarbonate Level 44 mmol/L 07/22/2023 01:23 EDT Anion Gap 5 07/22/2023 01:23 EDT Glucose Level 126 mg/dL 07/22/2023 01:23 EDT BUN 21 mg/dL 07/22/2023 01:23 EDT Creatinine-Blood 0.4 mg/dL 07/22/2023 01:23 EDT Estimated GFR Creatinine 109 ML/MIN/1.73 M2 07/22/2023 01:23 EDT Calcium 8.8 mg/dL 07/22/2023 01:23 EDT * Isma ORTIZ, Ruben Ramos: PERFORM Event Display: Consultation Note Authored Date: I have reviewed the patient's medical history, findings on examination, diagnosis and treatment plan as documented in the fellow note. Case and its management discussed with fellow. ?? Patient seen and evaluated independently on the day of the consultation, discussed the pros and cons/alternatives and implications of colonoscopy, discussed the broad differential diagnosis of hematochezia. patient is not interested in pursuing colonoscopy, certainly not as an inpatient and even asan outpatient given her numerous comorbidities, she is not sure about how much to involve her daughter who is about to move to [place] from [place] (I tried to call her on the phone but could not reach her) ?? In the absence of recurrent, clinically relevant GI Bleeding, would suggest continuing this discussion with PCP as an outpatient along with overall goals of care, patient can certainly be referred toGastroenterology for further evaluation at that time ?? Will sign off for now, please call back with any questions Note * Delia Monique RN: PERFORM Event Display: Discharge/Transfer Note Hospital Authored Date: [id number] Nursing Discharge Note Entered On: 07/23/2023 11:02 EDT Performed On: 07/23/2023 11:02 EDT by Delia Monique RN Nursing Discharge Note 2 Discharge Time : 07/23/2023 11:15 EDT Discharge Comments : no changes from reporting RN's assessment Delia Monique RN - 07/23/2023 11:12 EDT Discharge Level of Care at Discharge : [facility] facility Discharge Nursing Homes/Rehab Facilities : [facility] Patient Left Unit Via : Ambulance Patient Accompanied Off Unit with : Ambulance/Ch[facility] Van Personnel Handover Given to Transport Personnel : Yes DC Instructions Provided & Signed by Pt : Yes Patient Understands D/C Instructions : Yes Verbalized Understanding of D/C Plan By : Patient Patient Instructions Discharge Signed : Yes Did Pt have Specialty Bed or Wound Vac : No Delia Monique RN - 07/23/2023 11:02 EDT * Sharmila ORTIZ, Addie: PERFORM, MODIFY Event Display: Discharge/Transfer Note Hospital Authored Date: [id number] Patient: ??KATERINE NICOLE ? Age:??62 Years?Sex:??Female?:??1960?? Patient Information Discharge Location: [facility] Primary Care Physician: Graciela Nunez MD Admit Date/Time: 07/21/23 10:22 Discharge Disposition Discharge Disposition: [facility] Facility/Rehab Discharge Diagnosis BRBPR (bright red blood per rectum) (K62.5) Chronic respiratory failure with hypoxia (J96.11) End stage COPD (J44.9) Atrial fibrillation (I48.91) Heart failure with mid-range ejection fraction (I50.22) Hyperlipidemia (E78.5) Atrial fibrillation with RVR (I48.91) Emphysema/COPD (J43.9) ?? _ Discharge Medications Acetaminophen (acetaminophen 325 [...] Atorvastatin (atorvastatin 20 mg oral tablet)?1?tab(s)?20?Milligram?By Mouth?Daily Baclofen (baclofen 10 mg oral tablet)?10?Milligram?1?tablet?By Mouth?2 times a day?as needed?for 14?Days?Pain , Moderate Bisacodyl (Dulcolax 10 mg rectal suppository)?1?suppository(ies)?10?Milligram?Rectall y?Daily?as [...] a day?as needed?as needed for constipation Lorazepam (Ativan 1 mg oral tablet)?1?Milligram?By Mouth?2 [...] then stop Sertraline (sertraline 25 mg oral tablet)?1?tab(s)?25?Milligram?By Mouth?Daily Tiotropium (Spiriva HandiHaler 18 mcg inhalation capsule)?1?capsule?18?Microgram?Inhalation?Daily?for 30?Days Tramadol (traMADol 50 mg oral tablet)?1?tab(s)?50?Milligram?By Mouth?3 times a day with meals?TAKE 1 TABLET BY MOUTH 3 TIMES A DAY FOR 7 DAYS NEEDED FOR PAIN ? Quality Measures Tobacco Use Treatment:? Durable Medical Equipment On Admit VNA/Hospice/Home Care: [facility] [address] [facility] [id number] (05/11/23) On Admit Medical Equip Companies: [employer] [place] [phone] (05/11/23) Discharge recommendations: Rehab (07/10/23) Name of Agency #1: [facility] (05/19/23) Agency Human Resources Associate #1: Intake (07/20/23) Service Categories #1: Oxygen Therapy, Physical Therapy, [facility] (07/20/23) Service Comments #1: You are being discharged to rehab at [facility]. (07/20/23) CPAP/BiPAP Mask Type: Full (07/19/23) CPAP/BiPAP Mask Size: Small (07/19/23) Ambulatory devices needed: None (07/22/23) ? Medications Started none Allergies Allergies ?(Active and Proposed Allergies Only) Lyrica? (Severity: Unknown severity, Onset: Unknown) ?Reactions: increased depression morphine? (Severity: Unknown severity, Onset: Unknown) ?Reactions: respiratory depression codeine? (Severity: Moderate, Onset: Unknown) ?Reactions: Nausea, Rash sulfADIAZINE? (Severity: Moderate, Onset: Unknown) ?Reactions: Rash ? PCP Follow-Up/Heads-Up pl recehck Hb in 2-3 days . Pt need GOC discussion given multiple comorbidities. Objective Assessment and Plan ??62-year-old female patient with multiple medical comorbidities including hyperlipidemia, paroxysmal atrial fibrillation/flutter on eliquis, chronic obstructive pulmonary disease, chronic hypoxic respiratory failure on 6 L of oxygen at home, heart failure with midrange ejection fraction (EF40-45%), chronic hyponatremia who presented to the emergency department for evaluation of bloody bowel movement with pain admitted for question of?? GI bleed and atrial fibrillation with rapid ventricular response.??No ??Further episode of bleed, hemoglobin remained stable, patient remained hemodynamicallystable, no further episode of A-fib with RVR. ??Patient was evaluated by gastroenterology,??given??stable hemoglobin, absence of recurrent bleed??and multiple comorbidities??GI does not think patientneed colonoscopy at this time and patient was also??inclined not to do colonoscopy. Patient remained stable overnight, no further episode of bleeding, hemoglobin stable.?? She will bedischarged back to her halfway facility today.?We will resume her anticoagulation,??repeat??hemoglobin at halfway facility in 2 to 3 days patient has been advised to avoid constipat ion.?? Discharge plan was discussed??with patient at length at bedside. ? Active Problem list:?? 1. ??BRBPR (bright red blood per rectum) ??(K62.5) She was discharged to Rehab yesterday and reportedly had and episode of bloody bowel movement today.? She has been afebrile, hemodynamic stable, Lab work significant for stable anemia CT abdomen and pelvis angiogram was unremarkable. ??No ongoing rectal bleed ??Pt was evaluated by GI ??Given stable hemoglobin , no recurrent bleed and severe co morbidities?? , GI?? peck snot think ptneed colonoscopy at this?? time, pt alos not willing to have colonoscopy ??Hb stable ??No recurrent bleed ??Resume Eliquis ??Repeat Hb at [facility] in 2-3 days ? 2. ??Chronic respiratory failure with hypoxia ??(J96.11) 3. ??End stage COPD ??(J44.9) Patient was recently admitted to the hospital from July 02 to July 20??with acute on chronic??hypoxic??and hypercarbic respiratory failure??secondary to??COPD exacerbation??requiring??BiPAP??placement. ??Patient was treated??with??antibiotic and steroid (on steroid taper). ?? - continue taper prednisone 30 mg for 2 days, 30 mg for 3 days, 20 mg for 3 days, 10 mg for 5 days. - albuterol inhaler as needed. ??Resume home inhalers ? 4. ??Atrial fibrillation ??(I48.91) 5. ??Heart failure with mid-range ejection fraction ??(I50.22) Her hospital course was complicated??difficult to control atrial fibrillation??requiring diltiazem drip??and medication adjustment. She was discharged to rehab on diltiazem 180 mg daily, Metoprolol 50 mg daily. and digoxin. heart rate ranging between 100-110s in ED??(ED notes indicate heart rate going up to 130s). HR now in 60s-80s. - continue digoxin, metoprolol and diltiazem. ??Resume anticoagulation ?? 6. ??Hyperlipidemia ??(E78.5): continue statin. ? GI: PO pantoprazole ?? Goal of care: Code Status: full code ? . Physical Exam GENERAL: In no apparent distress, chronically ill looking HEENT: Head normocephalic, PERRL,Moist mucous membrane. Neck supple CARDIOVASCULAR: Normal rate and rhythm, no murmurs, no rubs, no gallops RESPIRATORY: Lungs clear to auscultation, no wheezes , no crackles ABDOMEN/GI: Nondistended, soft, nontender, normal bowel sounds EXTREMITIES: No pitting edema CHILDREN'S COUNSELOR: Alert and oriented x 3.Non focal neuro exam. Pending Results Hold Lavender Tube (BB) ordered on 07/21/2023 Patient Education Titles Lower Gastrointestinal (GI) Bleeding (Stable)?? Follow-Up Appointments Added Follow Up ?Time Frame ?Comments Mayra ORTIZ, Graciela Lares?1 to 2 weeks Post Discharge Care Discharge ?07/23/23 8:34:00 EDT Discharge Prescriptions ?None, ??07/23/23 8:34:00 EDT Home Health Face to Face ^HomeHealthFTF Results Discharge Labs BLOOD COUNT & DIFF WBC 15.6 k/mm3 (High)?? 07/23/2023 01:35 RBC 3.48 m/mm3 (Low)?? 07/23/2023 01:35 Hgb 10.8 Gm/dL (Low)?? 07/23/2023 01:35 Hct 33.8 % (Low)?? 07/23/2023 01:35 MCV 97.1 femtoliters ()?? 07/23/2023 01:35 MCH 31.0 pg ()?? 07/23/2023 01:35 MCHC 32.0 g/dL (Low)?? 07/23/2023 01:35 Platelet Count 251 k/mm3 ()?? 07/23/2023 01:35 RDW-SD 46.8 femtoliters ()?? 07/23/2023 01:35 MPV 9.7 femtoliters ()?? 07/23/2023 01:35 Nucleated RBC (Automated) 0.0 #/100 WBC'S ()?? 07/23/2023 01:35 Abs. NRBC 0.0 k/mm3 ()?? 07/23/2023 01:35 Abs. Neut 19.8 k/mm3 (High)?? 07/21/2023 11:09 Abs. Lymph 0.4 k/mm3 (Low)?? 07/21/2023 11:09 Abs. [place] 0.8 k/mm3 ()?? 07/21/2023 11:09 Abs. Eo 0.0 k/mm3 ()?? 07/21/2023 11:09 Abs. Baso 0.1 k/mm3 ()?? 07/21/2023 11:09 Neut % 92.2 % (High)?? 07/21/2023 11:09 Lymph % 1.8 % (Low)?? 07/21/2023 11:09 [place] % 3.8 % (Low)?? 07/21/2023 11:09 Eos % 0.1 % ()?? 07/21/2023 11:09 Baso % 0.2 % ()?? 07/21/2023 11:09 Imm Gran 1.9 % ()?? 07/21/2023 11:09 Abs. Imm Gran 0.4 k/mm3 ()?? 07/21/2023 11:09 ?? CHEM GENERAL Sodium 135 mmol/L ()?? 07/23/2023 01:35 Potassium 4.1 mmol/L ()?? 07/23/2023 01:35 Chloride 87 mmol/L (Low)?? 07/23/2023 01:35 Bicarbonate Level 46 mmol/L (Critical)?? 07/23/2023 01:35 Anion Gap 2 (Low)?? 07/23/2023 01:35 Glucose Level 138 mg/dL (High)?? 07/23/2023 01:35 BUN 20 mg/dL ()?? 07/23/2023 01:35 Creatinine-Blood 0.4 mg/dL (Low)?? 07/23/2023 01:35 Estimated GFR Creatinine 109 ML/MIN/1.73 M2 ()?? 07/23/2023 01:35 Calcium 8.5 mg/dL (Low)?? 07/23/2023 01:35 Protein, Total 4.8 Gm/dL (Low)?? 07/21/2023 11:09 Albumin 3.5 Gm/dL ()?? 07/21/2023 11:09 AG Ratio 2.7 ()?? 07/21/2023 11:09 Alkaline Phosphatase 123 units/L (High)?? 07/21/2023 11:09 AST (SGOT) 18 units/L ()?? 07/21/2023 11:09 ALT (SGPT) 104 units/L (High)?? 07/21/2023 11:09 Bilirubin, Total 0.4 mg/dL ()?? 07/21/2023 11:09 ? COAG INR 1.0 ()?? 07/21/2023 11:09 Protime (PT) 10.9 seconds ()?? 07/21/2023 11:09 APTT 22.1 seconds (Low)?? 07/21/2023 11:09 ? URINE OTHER Est Creatinine Clearance 112.15 mL/min ()?? 07/22/2023 03:11 ? VIROLOGY COVID-19 by RT-PCR NEGATIVE ()?? 07/21/2023 11:15 ? 40 minutes spent on discharge * Maria Elena Rasmussen: PERFORM, SIGN, VERIFY Event Display: Case Management Discharge Plan Authored Date: [id number] Patient: KATERINE NICOLE Age: 62 years Sex: Female : 1960 Associated Diagnoses: None Author: Maria Elena Rasmussen Discharge Plan Case Management Discharge Plan : Case Management Discharge Plan Data 07/23/2023 9:14 EDT Discharge Level of Care at Discharge [facility] facility Discharge Nursing Homes/Rehab Facilities [facility] Discharge Transportation Arranged [facility] [address] [facility] [phone] Discharge Arranged Transport Date/Time 07/23/2023 11:00 Mode of Transportation Arranged Ambulance Name of Agency #1 [facility] Service Categories #1 Occupational Therapy, Physical Therapy, [facility] Service Comments #1 You are returning to [facility] rehab today via Ambulance * Kayden LUIS, Delia Florez: PERFORM Event Display: Patient Education/Instruction Authored Date: Inpatient Adult Discharge Instructions [address] [id number] Name: KATERINE NICOLE : 1960 Visit: 07/21/2023 10:22:00 Current Date: 07/23/2023 11:02 Account: [id number] Inpatient Adult Discharge Instructions We would like [...] and their families. Surveys are administered by [employer]. ?? If further treatment with your primary care physician or another doctor is recommended, it is important for you to keep the appointment. Call your primary care physician or return to the Emergency Department immediately if your condition worsens, fails to improve, or new symptoms develop. If you need to find a doctor, you can call [facility] Link for a referral at [phone] or toll free at [phone] ([phone]) or log in to [email or web address].. ?? [facility], in keeping with [facility] guidance, no longer requires face masks for [...] a health care noemi of your choosing. [email or web address] is a website that allows you to securely view your medical information including your hospital discharge summary, office visit summaries, medications and follow-up visits. You can also request appointments, renew medications, and request access to your medical information using a health care noemi of your choosing, or just ask a question. You can enroll at [email or web address] or register during your next office visit. You have been discharged from [facility], Patient Care Unit: S3. If you have any questions regarding these instructions after you leave, please call us and we will be happy to assist you. [facility] Your Care Team Attending Physician Addie Doll MD Discharging Providers Addie Doll MD Reason for Admission from [facility] - had large BM this AM with lots of bright red blood . on eliquis - facility held AM dose. pt denies any acute complaints. Your Diagnosis BRBPR (bright red blood per rectum) Atrial fibrillation with RVR Emphysema/COPD Chronic respiratory failure with hypoxia Hyperlipidemia End stage COPD Heart failure with mid-range ejection fraction Atrial fibrillation Tests Performed Below is a partial list of the tests performed during your hospitalization. You may have had other tests and procedures not included in this list. Please discuss all test results with your provider. Basic Metabolic Panel CBC CBC w/ Differential Comprehensive Metabolic Panel COVID-19 (Novel Coronavirus), Rapid PCR INR PTT CT Angio Abdomen and Pelvis Primary Care Provider Graciela Nunez MD Advance Directive Health Care Proxy on File Yes - Health Care Proxy Discharge Vitals Temperature: 98.2 DegF Height: 170 cm Pulse Rate:??106 bpm??High Weight: 50 kg Respiratory Rate: 18 br/min Body Mass Index:??17.3 kg/m2??Low Systolic Blood Pressure:??17 mm Hg??Low Body surface area: 1.54 Diastolic Blood Pressure: 56 mm Hg ?? Oxygen Saturation:??93 %??Low ?? Studies Pending All tests and labs ordered during this hospital stay have been completed unless listed below. Please discuss all pending results with your provider listed above in these instructions. ?? Hold Lavender Tube (BB) What to do next Instructions From Your Doctor Discharge Orders You Need to Schedule the Following Appointments Follow Up with??Graciela Nunez MD When:??Within 1 to 2 weeks Where: ?? Discharge Medications PAMFIDEL BricenoZEB :1960 Visit Date:07/21/2023 Medications: Please continue your medications until treatment is completed or stopped by your provider. Medications not listed below should be discontinued. Discuss any questions related to medications with your provider. What How Much When Why Instructions Next Dose New Docusate-Senna (docusate-senna 50 mg-187 mg oral tablet) 2 tab(s) Oral Daily at Bedtime 07/23 tonight New Lactulose (lactulose 10 gm/ 15 ml oral syrup) 15 Milliliter Oral Twice a day as needed for as needed for constipation as needed Unchanged Acetaminophen (acetaminophen 325 mg oral tablet) 2 tab(s) Oral Every 4 hours as needed for as needed for fever/pain as needed Unchanged Albuterol (Ventolin HFA 108 mcg/ inh inhalation aerosol with adapter) 2 puff(s) Inhalation 4 times a day as needed for for wheezing Emphysema/COPD as needed Unchanged Albuterol/ Ipratropium (albuterol-ipratropium 3 mg-0.5 mg/ 3 ml inhalation solution) 3 Milliliter Nebulized inhalation 4 times a day as needed for Wheezing/Shortness of Breath as needed Unchanged apixaban (apixaban 5 mg oral tablet) 5 Milligram Oral Twice a day 07/23 tonight Unchanged Aspirin (aspirin 81 mg oral delayed release tablet) 1 tab(s) Oral Daily 07/24 tomorrow morning Unchanged Atorvastatin (atorvastatin 20 mg oral tablet) 1 tab(s) Oral Daily 07/24 tomorrow morning Unchanged Baclofen (baclofen 10 mg oral tablet) 1 tab(s) Oral Twice a day as needed for Pain , Moderate Duration: 14 Days as needed Unchanged Bisacodyl (Dulcolax 10 mg rectal suppository) 1 suppository(ies) Per rectum Daily as needed for as needed for constipation as needed Unchanged Budesonide-Formoterol (Symbicort 160mcg/ 4.5mcg Inhaler) 2 puff(s) Inhalation Twice a day 07/23 tonight Unchanged Cholecalciferol (Vitamin D3 1000 intl units oral capsule) 1 capsule Oral Daily 07/24 tomorrow morning Unchanged Digoxin (digoxin 0.25 mg oral tablet) 1 tab(s) Oral Daily 07/23 at 4pm Unchanged Diltiazem (diltiazem 180 mg/ 24 hours oral capsule, extended release) 180 Milligram Oral Daily 07/24 tomorrow morning Unchanged Docusate (docusate sodium 100 mg oral capsule) 1 capsule Oral Twice a day as needed for as needed for constipation as needed Unchanged Folic Acid (folic acid 1 mg oral tablet) 1 tab(s) Oral Daily 07/24 tomorrow morning Unchanged Furosemide (Lasix 40 mg oral tablet) 1 tab(s) Oral Daily 07/24 tomorrow morning Unchanged Gabapentin (gabapentin 300 mg oral capsule) 2 capsule Oral 3 times a day 07/23 at 3pm Unchanged HydrOXYzine (hydrOXYzine hydrochloride 10 mg oral tablet) 3 tab(s) Oral 3 times a day as needed for NEEDED FOR ANXIETY as needed Unchanged Lorazepam (Ativan 1 mg oral tablet) 1 Milligram Oral Twice a day as needed for Anxiety Duration: 5 Days as needed Unchanged Metoprolol (Metoprolol Succinate ER 25 mg oral tablet, extended release) 2 tab(s) Oral Twice a day 07/23 tonight Unchanged Milk of Magnesia (Milk of Magnesia 8% oral suspension) 30 Milliliter Oral Daily at Bedtime as needed for for constipation as needed Unchanged Multivitamin (multivitamin Multiple Vitamins oral capsule) 1 capsule Oral Daily 07/24 tomorrow morning Unchanged Nicotine 21 Milligram Topically Daily 07/24 tomorrow morning Unchanged Pantoprazole (pantoprazole 40 mg oral delayed release tablet) 1 tab(s) Oral Daily 07/24 tomorrow morning Unchanged PredniSONE (predniSONE 20 mg oral tablet) 2 tab(s) Oral Daily Duration: 3 Days followed by by 30 mg prednisone daily for 3 days followed by 20 mg for 3 days followed by 10 mg for5 days then stop ?? 07/24 tomorrow morning Unchanged Sertraline (sertraline 25 mg oral tablet) 1 tab(s) Oral Daily 07/24 tomorrow morning Unchanged Tiotropium (Spiriva HandiHaler 18 mcg inhalation capsule) 1 capsule Inhalation Daily Duration: 30 Days 07/24 tomorrow morning Unchanged Tramadol (traMADol 50 mg oral tablet) 1 tab(s) Oral 3 times a day with meals TAKE 1 TABLET BY MOUTH 3 TIMES A DAY FOR 7 DAYS NEEDED FOR PAIN ?? as needed Test Results Below is a partial list of the most recent Laboratory test results done prior to this discharge. You may have had other tests and procedures not included in this list. Please discuss all test resultswith your provider. Est Creatinine Clearance - 112.15 mL/min (07/22/2023) Basic Metabolic Panel (07/23/2023) ???Sodium - 135 mmol/L???Potassium - 4.1 mmol/L???Chloride - 87 mmol/L???Bicarbonate Level - 46 mmol/L???Anion Gap - 2???Glucose Level - 138 mg/dL???BUN - 20 mg/dL???Creatinine-Blood - 0.4 mg/dL???Estimated GFR Creatinine - 109 ML/MIN/1.73 M2???Calcium - 8.5 mg/dL CBC (07/23/2023) ???WBC - 15.6 k/mm3???RBC - 3.48 m/mm3???Hgb - 10.8 Gm/dL???Hct - 33.8 %???MCV - 97.1 femtoliters???MCH - 31.0 pg???MCHC - 32.0 g/dL???Platelet Count - 251 k/mm3???RDW-SD - 46.8 femtoliters???MPV - 9.7 femtoliters???Nucleated RBC (Automated) - 0.0 #/100 WBC'S???Abs. NRBC - 0.0 k/mm3 CBC w/ Differential (07/21/2023) ???WBC - 21.5 k/mm3???RBC - 3.72 m/mm3???Hgb - 11.5 Gm/dL???Hct - 36.7 %???MCV - 98.7 femtoliters???MCH - 30.9 pg???MCHC - 31.3 g/dL???Platelet Count - 300 k/mm3???RDW-SD - 47.4 femtoliters???MPV - 9.8 femtoliters???Nucleated RBC (Automated) - 0.0 #/100 WBC'S???Abs. NRBC - 0.0 k/mm3???Abs. Neut - 19.8 k/mm3???Abs. Lymph - 0.4 k/mm3???Abs. [place] - 0.8 k/mm3???Abs. Eo - 0.0 k/mm3???Abs. Baso - 0.1 k/mm3???Neut % - 92.2 %???Lymph % - 1.8 %???[place] % - 3.8 %???Eos % - 0.1 %???Baso % - 0.2 %???Imm Gran - 1.9 %???Abs. Imm Gran - 0.4 k/mm3 Comprehensive Metabolic Panel (07/21/2023) ???Sodium - 136 mmol/L???Potassium - 4.5 mmol/L???Chloride - 85 mmol/L???Bicarbonate Level - 50 mmol/L???Anion Gap - 1???Glucose Level - 169 mg/dL???BUN - 23 mg/dL???Creatinine-Blood - 0.3 mg/dL???Estimated GFR Creatinine - 117 ML/MIN/1.73 M2???Calcium - 9.6 mg/dL???Protein, Total - 4.8 Gm/dL???[place] min - 3.5 Gm/dL???AG Ratio - 2.7???Alkaline Phosphatase - 123 units/L???AST (SGOT) - 18 units/L???ALT (SGPT) - 104 units/L???Bilirubin, Total - 0.4 mg/dL COVID-19 (Novel Coronavirus), Rapid PCR (07/21/2023) ???COVID-19 by RT-PCR - NEGATIVE INR (07/21/2023) ???INR - 1.0???Protime (PT) - 10.9 seconds PTT (07/21/2023) ???APTT - 22.1 seconds Immunizations This Visit Not Given Vaccine Commentsinfluenza virus vaccine, inactivated Patient Refuses Allergies (NKA means No Known Allergies) codeine??(Rash, [...] Educational Leaflet Providered with your Discharge Instructions. Lower Gastrointestinal (GI) Bleeding (Stable)?? Valuables and Belongings I fully understand and agree that [facility] accepts no responsibility for all my personal [...] patient Date for Pt to Sign Valuables/Belongings: 07/23/23 10:10:00 ?? Other Discharge Information ? Case Management Discharge Plan?? Discharge Plan?? Discharge Agency Information?? Discharge Level of Care at Discharge: [facility] facility Name of Agency #1: [facility] Facility Discharge Transportation Arranged: [facility] [address] [facility] [phone] Service Categories #1: Occupational Therapy, Physical Therapy, [facility] Mode of Transportation Arranged: Ambulance Service Comments #1: You are returning to [facility] skilled rehab today via Ambulance Discharge Arranged Transport Date/Time: 07/23/23 11:00:00 ?? Discharge Nursing Homes/Rehab Facilities: [facility] ? Pulmonary Rehab Status?? Pulmonary Rehab Discharge Status?? Respiratory Rate: 18 br/min ? Common Emergency [...] are strongly encouraged to quit. Please call [facility] [employer] Link at [phone] or [phone] [employer] ([phone]) or log in to [email or web address] for referrals to smoking cessation programs. ?? 248 Suicide & Crisis Lifeline is available 24/05 if you or someone you know needs to find a reason to keep living. By calling 743 you'll be connected to a skilled, trained counselor at a crisis center in your area. INPATIENT DISCHARGE INSTRUCTIONS SIGNATURE PAGE KATERINE NICOLE Location:[facility] Registration Date and Time:07/21/2023 10:22 EDT Primary Care Physician: Graciela Nunez MD, Attending Physician: Addie Doll MD, I KATERINE NICOLE, have received the above patient education materials/instructions and have verbalized understanding. If ambulance or transport services are being used I further acknowledge being given a choice of service. ?? If you need to contact me, please call me at this number: . Patient/Maintenance Man Name: Patient/Maintenance Man Signature: Relationship to Patient: Witness Name/Signature: Date: * Addie Doll MD: PERFORM Event Display: Patient Education Leaflets Authored Date: [id number] Lower Gastrointestinal (GI) Bleeding (Stable) ?? [id number] Lower Gastrointestinal (GI) Bleeding (Stable) You have signs of blood in your stool. This is called rectal bleeding. The bleeding may have begun in another part of your gastrointestinal (GI) tract. If the blood is bright red, it's likely coming from the lower part of the GI tract. If the blood is black or dark, it might be coming from higher up in the GI tract. Very small amounts of GI bleeding may not be visible and can only be discovered during a test on your stool. Possible causes of lower GI bleeding include: ??? Swollen inflamed veins in the rectum (hemorrhoids) ??? Tear in the lining of the anus (anal fissures) ??? Bleeding from a blood vessel in a small pouch in the large intestine (diverticular bleeding) ??? Inflammatory bowel disease (Crohn's disease or ulcerative colitis) ??? Polyps (growths) in the intestine ??? Swelling and irritation of the colon (infectious colitis or other types of colitis)??? Colon cancer Note:??Iron supplements and medicines for diarrhea or upset stomach can cause black stools. Foods, such as licorice and red beets, can also discolor the stool and be mistaken for bleeding. These are not bleeding and are not a cause for alarm. Home care You have not lost a large amount of blood and your condition appears stable at this time.??You may resume normal activity as long as you feel well. Don't take NSAIDs, such as aspirin, ibuprofen, or naproxen. They can irritate the stomach and causefurther bleeding. If you are taking these medicines for other medical reasons, talk to your healthcare provider before you stop them.? Follow-up care Follow up with your healthcare provider, or as advised. Further tests may be needed to find??the cause of your bleeding. ?? When to get medical advice Call your healthcare provider??right away??if any of the following occur: ??? Rectal bleeding?Increasing belly (abdominal) pain ??? Weakness, dizziness ??? Current symptoms get worse, or you have new symptoms ?? Call 911 Call 911 if any of the following occur: ??? Loss of consciousness ??? Vomiting blood ??? Large amount of rectal bleeding? Last Reviewed Date: 2022 ?? [id number] [employer]. All rights reserved. This information is not intended as a substitute for professional medical care. Always follow your healthcare professional's instructions. ?? Patient Care team information Care Team Personnel Name: Herminia Parker RN Position: S RN Member Role: Primary Care Nurse Name: Belgica Mckeon RN Position: S RN Member Role: Primary Care Nurse Name: Morgan Abbott MD Position: [facility] Renal MD Member Role: [employer] Consulting Physician Address: Address: [address] [place] [address], [place] [address]- Name: Bernice Molina RN Position: S RN Member Role: Primary Care Nurse Name: Graciela Nunez MD Position: [facility] Physician - Primary Care Member Role: PCP Address: Address: [address] [place] [address]- Name: Maryam Camara RN Position: S RN Member Role: Primary Care Nurse Name: Josemanuel Hawkins RN Position: S RN Member Role: Primary Care Nurse Name: Milana Garland RN Position: S RN Member Role: Primary Care Nurse Name: Mckay Esquivel MD Position: [facility] Renal MD Member Role: Lif[employer] Consulting Physician Address: Address: [address] [place] [address], [address] [place] [address]- Name: Rylie Francois RN Position: S RN Member Role: Primary Care Nurse Name: Luisa Storey RN Position: S RN Member Role: Primary Care Nurse Name: Elizabeth Ferris RN Position: [facility] RN Member Role: Primary Care Nurse Name: Alyssa Johnson RN Position: [facility] RN Member Role: Primary Care Nurse Name: Anabela Beavers Position: [facility] RN Member Role: Primary Care Nurse Name: Tracey Chavez Position: [facility] RN Member Role: Primary Care Nurse Name: Sandy Alba RN Position: [facility] RN Member Role: Primary Care Nurse Name: Jose Sebastian RN Position: [facility] RN Member Role: Primary Care Nurse Name: Angelica Montemayor RN Position: [facility] RN Member Role: Primary Care Nurse Name: Paty Ventura RN Position: [facility] RN Member Role: Primary Care Nurse Name: Ninfa Soto RN Position: [facility] RN Member Role: Primary Care Nurse Name: Romeo Reid MD Position: [facility] Renal MD Member Role: Lifetime Consulting Physician Address: Address: [address] [place] [address] [facility] [address] Name: Olga Valladares RN Position: [facility] RN Member Role: Primary Care Nurse Name: Karyn Quezada RN Position: [facility] RN Member Role: Primary Care Nurse Name: Ruby Alexandre RN Position: [facility] RN Member Role: Primary Care Nurse Address: Address: [address] [place] [address]- Name: Celso Lawson MD Position: [facility] Renal MD Member Role: Lifetime Consulting Physician Address: Address: [address] [place] [address] [facility] [address] Name: Alyssa Camacho RN Position: [facility] RN Member Role: Primary Care Nurse Name: Keely Pascal RN Position: [facility] RN Member Role: Primary Care Nurse Name: Chloe Fisher LPN Position: [facility] RN Member Role: Primary Care Nurse Name: Naomi RAINEY Attending Position: [facility] ED Medicine MD Name: Vivian Mi DO Position: [facility] Resident Member Role: ED Resident Address: Address: [address] [place] [address] [place] [address]- Name: Martha Staton RN Position: [facility] ED RN W/OE and Tasks Member Role: Patient Care Provider Name: Rafi Colvin Position: [facility] ED TA [facility] Member Role: Sales Representative Education Courses Care Team Related Persons Name: LAZARUS OSBORNE Address: [place] [address] Name: KAVON NICOLE Address: home [address] [place] [id number] Name: PT, [facility]
--- OUTSIDE RECORDS SUMMARY | 2023-08-21 08:37 | XMS_ITS | Continuity of Care Document ---
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 Name Role Phone Graciela Nunez MD Primary Care Physician [phone] [place] [facility] [place]/22 [facility] [address] [place], [place] [address] Allergies, Adverse Reactions, Alerts Substance [...] 23-valent vaccine 6 07/31/10 Recorded 1Result Comment: [id number] given w/out incident 2Location History: [place], [place] 3Admin Note: done @ dr jones office 4Location History: [facility] 5Location History: [facility] 6Location History: [facility] Medications aspirin 81 [...] 01/15/22 12:48:00 EDT, Route to Pharmacy Electronically, [facility] #[id number], Partial fill upon patient request if the prescription is for a schedule... Start Date: 01/15/22 Status: Ordered Colace sodium 100 mg oral capsule 100 mg, 1, capsule, By Mouth, 2 times a day, PRN, # 60 capsule, Refills 5, Tot. Refills 5, Maintenance, for constipation, 01/14/22 11:17:00 EDT, Route to Pharmacy Electronically, [facility]#[id number], Partial fill upon patient request if the pr... Start Date: 01/14/22 Status: Ordered diltiazem 180 mg/24 hours oral capsule, extended release 180 mg, 1, capsule, By Mouth, Daily, # 30 capsule, Refills 0, Tot. Refills 0, Maintenance, 11/06/2209:09:00 EST, Route to Pharmacy Electronically, [facility] #[id number], Partial fill upon patient request if the prescription is for a schedule II... Start Date: 11/06/21 Status: Ordered Flonase 50 mcg/inh nasal spray 1 sprays, Nares, Both, Daily in AM, # 16 Gm, 4 Refills, Maintenance, 12/03/21 12:34:00 EST, [place], [facility] #[id number], Partial fill upon patient request if the prescription is for a scheduleII opioid drug., 1 sprays Nares, Both Daily in AM,... Start Date: 12/03/21 Status: Ordered folic acid 1 mg oral tablet 1 mg, 1, tablet, By Mouth, Daily, # 30 tablet, Refills 5, Tot. Refills 5, Maintenance, 01/31/21 16:35:00 EDT, Route to Pharmacy Electronically, [facility] #[id number], 170, cm, 10/02/20 10:06:00EST, Height, 56.3, kg, [...] 08/26/21 10:50:00 EDT, Route to Pharmacy Electronically, [facility] #[id number], 162.56, cm, 08/22/21 2:36:00 EDT, Height, 52.65, kg, 08/22/21 2:36:00 EDT... Start Date: 08/26/21 Status: Ordered lactulose 10 gm/15 ml oral syrup 15 mL = 10 Gm, By Mouth, Every 72 hours, PRN as needed for constipation, # 300 mL, 5 Refills, Maintenance, 01/05/22 10:50:00 EST, Syrup, [facility] #[id number], Partial fill upon patient requestif the prescription [...] 02/06/22 16:15:00 EDT, 12/26/21 16:15:00 EST, Patch, [email or web address] #[id number], Partial fill upon patient request if the [...] 0 Refills, Maintenance, 12/22/21 14:25:00 EST, Tablet, [email or web address] #[id number], Partial fill upon patient requ... Start Date: 12/22/21 Stop Date: 12/25/21 Status: Ordered predniSONE 10 mg oral tablet See Instructions, 4 tabs x 3 days, 3 tabs x 3 days, 2 tabs x 3 days, 1 tab x 3 days, # 30 tablet, 0Refills, Acute 02/07/22 11:15:00 EDT, 01/05/22 11:08:00 EST, Tablet, [facility] #[id number], Partial fill upon patient request if the [...] 10/22/21 15:09:00 EST, Route to Pharmacy Electronically, [facility] #[id number] Tablet, Partial fill upon patient request... Start [...] Refills, Maintenance, 02/26/21 15:47:00 EDT, ER Tablet, [email or web address] #[id number], Partial fill upon patient requestif the prescription is for a schedule II opioid ivonne... Start Date: 02/26/21 Status: Ordered Ventolin HFA 108 mcg/inh inhalation aerosol with adapter 2 puffs, Inhalation, 4 times a day, PRN for wheezing, # 1 each, 0 Refills, Maintenance, 10/02/20 10:55:00 EST, Aerosol, [facility]/pharmacy #[id number], 170, cm, 10/02/20 10:06:00 EST, Height, 56.3, kg, 11/24/19 22:58:00 EST, Dry Weight Start Date: 10/02/20 Status: Ordered Vitamin D3 1000 intl units oral capsule 1 capsule = 25 mcg, By Mouth, Daily, # 30 capsule, 11 Refills, Maintenance, 12/02/21 10:55:00 EST, Capsule, [facility] #[id number], Partial fill upon patient request if the [...]
--- OUTSIDE RECORDS SUMMARY | 2023-08-21 08:37 | XMS_ITS | Continuity of Care Document ---
Author Name Unknown Organization [facility] Address [address] [place] [address]- Care Team Providers Care [facility] Name Role Phone Graciela Nunez MD Primary Care Physician Encounter [facility] [place] Date(s): 12/09/21 - 01/08/22 [facility] [address] [place] [address]- [place] Allergies, Adverse Reactions, Alerts Substance Reaction Severity [...] 23-valent vaccine 6 07/31/10 Recorded 1Result Comment: [id number] given w/out incident 2Location History: [place], [place] 3Admin Note: done @ dr jones office 4Location History: [facility] 5Location History: [facility] 6Location History: [facility] Medications aspirin 81 mg oral delayed [...] 10/22/21 15:09:00 EST, Route to Pharmacy Electronically, [facility]#[id number], Partial fill upon patient request if the pr... Start Date: 10/22/21 Status: Ordered diltiazem 180 mg/24 hours oral capsule, extended release 180 mg, 1, capsule, By Mouth, Daily, # 30 capsule, Refills 0, Tot. Refills 0, Maintenance, 11/06/2209:09:00 EST, Route to Pharmacy Electronically, [facility] #[id number], Partial fill upon patient request if the prescription is for a schedule II... Start Date: 11/06/21 Status: Ordered Flonase 50 mcg/inh nasal spray 1 sprays, Nares, Both, Daily in AM, # 16 Gm, 4 Refills, Maintenance, 12/03/21 12:34:00 EST, [place], [facility] #[id number], Partial fill upon patient request if the prescription is for a scheduleII opioid drug., 1 sprays Nares, Both Daily in AM,... Start Date: 12/03/21 Status: Ordered folic acid 1 mg oral tablet 1 mg, 1, tablet, By Mouth, Daily, # 30 tablet, Refills 5, Tot. Refills 5, Maintenance, 01/31/21 16:35:00 EDT, Route to Pharmacy Electronically, [facility] #[id number], 170, cm, 10/02/20 10:06:00EST, Height, 56.3, kg, [...] 08/26/21 10:50:00 EDT, Route to Pharmacy Electronically, [facility] #[id number], 162.56, cm, 08/22/21 2:36:00 EDT, Height, 52.65, kg, 08/22/21 2:36:00 EDT... Start Date: 08/26/21 Status: Ordered lactulose 10 gm/15 ml oral syrup 15 mL = 10 Gm, By Mouth, Every 72 hours, PRN as needed for constipation, # 300 mL, 5 Refills, Maintenance, 01/05/22 10:50:00 EST, Syrup, [facility] #[id number], Partial fill upon patient requestif the prescription [...] Acute 01/10/22 10:26:00EST, 12/17/21 10:18:00 EST, Suspension, [facility] #[id number], Partial fill upon patient request if the prescription is for a schedule II opioid... Start Date: 12/17/21 Stop Date: 01/10/22 Status: Ordered nicotine 21 mg/24 hr transdermal film, extended release 1 patch, Topically, Daily, for 6 week(s), # 42 patch, 0 Refills, Acute 02/06/22 16:15:00 EDT, 12/26/21 16:15:00 EST, Patch, [facility] #[id number], Partial fill upon patient request if the [...] is... Start Date: 12/20/21 Status: Ordered nystatin 550334 u/ml oral suspension 5 mL = 500,000 units, By Mouth, 4 times a day, for 7 days, swish and swallow, # 140 mL, 0 Refills, Acute 01/12/22 11:10:00 EDT, 01/05/22 11:10:00 EST, Suspension, [facility] #[id number], Partialfill upon patient request if the prescription [...] 0 Refills, Maintenance, 12/22/21 14:25:00 EST, Tablet, [facility] #[id number], Partial fill upon patient requ... Start Date: 12/22/21 Stop Date: 12/25/21 Status: Ordered predniSONE 10 mg oral tablet See Instructions, 4 tabs x 3 days, 3 tabs x 3 days, 2 tabs x 3 days, 1 tab x 3 days, # 30 tablet, 0Refills, Acute 02/07/22 11:15:00 EDT, 01/05/22 11:08:00 EST, Tablet, [facility] #[id number], Partial fill upon patient request if the [...] 10/22/21 15:09:00 EST, Route to Pharmacy Electronically, [facility] #[id number] Tablet, Partial fill upon patient request... Start Date: 10/22/21 Status: Ordered sertraline 25 mg oral tablet 1 tablet = 25 mg, By Mouth, Daily, # 30 tablet, 5 Refills, Maintenance, 01/05/22 11:02:00 EST, Tablet, [facility] #[id number], Partial fill upon patient request if the [...] Refills, Maintenance, 02/26/21 15:47:00 EDT, ER Tablet, [facility] #[id number], Partial fill upon patient requestif the prescription [...] 11 Refills, Maintenance, 12/02/21 10:55:00 EST, Capsule, [facility] #[id number], Partial fill upon patient request if the [...]
--- OUTSIDE RECORDS SUMMARY | 2023-08-21 08:37 | XMS_ITS | Continuity of Care Document ---
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 Name Role Phone Graciela Nunez MD Primary Care Physician [place] [facility] [place]23 [facility] [address] [place], [place] [address] Encounter Diagnosis Chronic respiratory failure with hypoxia(Discharge Diagnosis) - 05/27/23 End stage COPD(Discharge Diagnosis) - 05/27/23 Paroxysmal atrial flutter(Discharge Diagnosis) - 05/27/23 Hyperlipidemia(Discharge Diagnosis) - 05/27/23 Anxiety(Discharge Diagnosis) - 05/27/23 Hyponatremia(Discharge Diagnosis) - 05/27/23 Lung nodule(Discharge Diagnosis) - 05/27/23 Attending Physician: Graciela Nunez MD Allergies, Adverse [...] 23-valent vaccine 6 07/31/10 Recorded 1Result Comment: [id number] given w/out incident 2Location History: [place], [place] 3Admin Note: done @ dr jones office 4Location History: [facility] 5Location History: [facility] 6Location History: [facility] Medications albuterol-ipratropium 3 mg-0.5 mg/3 ml [...] 05/25/23 15:31:00 EDT, Route to Pharmacy Electronically, [facility]/pharmacy #[id number], Partial fill upon patient request if the [...] A DAY NEEDED FOR CONSTIPATION. FILLED AT [facility] Start Date: 03/18/23 Status: Ordered folic acid 1 mg oral tablet 1 mg, 1, tablet, By Mouth, Daily, # 30 tablet, Refills 11, Tot. Refills 11, Maintenance, 12/03/22 9:01:00 EST, Route to Pharmacy Electronically, [facility]/pharmacy #[id number], 170, cm, 02/04/22 11:19:00 EDT, Height, 44.1, kg, 12/20/21 16:05:00 EST, Dry Weight Start Date: 12/03/22 Status: Ordered gabapentin 300 mg oral capsule 2, capsule, By Mouth, 3 times a day, # 180 capsule, Refills 5, Tot. Refills 5, Maintenance, 08/13/22 13:03:00 EDT, Route to Pharmacy Electronically, [facility]/pharmacy #[id number], 170, cm, 02/04/22 11:19:00 EDT, Height, 44.1, kg, 12/20/21 16:05:00 EST, Dry Weight Start Date: 08/13/22 Status: Ordered hydrOXYzine hydrochloride 10 mg oral tablet 3 tablet = 30 mg, By Mouth, 3 times a day, PRN NEEDED FOR ANXIETY, # 270 tablet, 3 Refills, Maintenance, 03/01/23 12:03:00 EDT, [facility]/pharmacy #[id number], 170, cm, 02/04/22 11:19:00 EDT, Height, [...] 3 Refills, Maintenance, 12/16/22 9:12:00 EST, Capsule, [facility]/pharmacy #[id number], Partial fill upon patient request if the prescription is for a schedule II opioid drug., 1 capsule By Mouth Daily, 170, cm, 04/06/22 1... Start Date: 12/16/22 Status: Ordered Nicotine [...] 0 Refills, Maintenance, 10/02/20 10:55:00 EST, Aerosol, [facility]/pharmacy #[id number], 170, cm, 10/02/20 10:06:00 EST, Height, 56.3, kg, 11/24/19 22:58:00 EST, Dry Weight Start Date: 10/02/20 Status: Ordered Vitamin D3 1000 intl units oral capsule 1 capsule = 25 mcg, By Mouth, Daily, # 30 capsule, 11 Refills, Maintenance, 12/03/22 9:00:00 EST, Capsule, [facility] #[id number], Partial fill upon patient request if the [...] Abnormal TSH Confirmed Active Underweight Confirmed Active Diagnosis Diagnosis Type Effective Dates Health Status Clinical Service Informant Chronic respiratory failure with hypoxia Discharge Diagnosis 05/27/23 End stage COPD Discharge Diagnosis 05/27/23 Paroxysmal atrial flutter Discharge Diagnosis 05/27/23 Hyperlipidemia Discharge Diagnosis 05/27/23 Anxiety Discharge Diagnosis 05/27/23 Hyponatremia Discharge Diagnosis 05/27/23 Lung nodule Discharge Diagnosis 05/27/23 Social History Social History Type Response Tobacco Other: now smoking 1 /2 pack per day. Sex Patient Care team information Care Team Personnel Name: Milena ORTIZ, Morgan Hancock Position: [facility] Renal MD Member Role: Lifetime Consulting Physician Address: Address: [address] [place] [address], [address] [address]- Name: Graciela Nunez MD Position: [facility] Physician - Primary Care Member Role: PCP Address: Address: [address] [place] [address] Name: Maryam Camara RN Position: [facility] RN Member Role: Primary Care Nurse Name: Josemanuel Hawkins RN Position: [facility] RN Member Role: Primary Care Nurse Name: [...] Care Nurse Name: Romeo Reid MD Position: [facility] Renal MD Member Role: Lifetime Consulting Physician Address: Address: [address] [place] [address] [facility] [address] Name: Olga Valladares RN Position: [facility] RN Member Role: Primary Care Nurse Name: Ruby [place] RN Position: S RN Member Role: Primary Care Nurse Address: Address: [address] [place] [address] Name: Celso Lawson MD Position: [facility] Renal MD Member Role: Lifetime Consulting Physician Address: Address: [address] [place] [address] [facility] [address] Name: Alyssa Camacho RN Position: S RN Member Role: Primary Care Nurse Name: Keely Pascal RN Position: S RN Member Role: Primary Care Nurse Name: Chloe Fisher LPN Position: S RN Member Role: Primary Care Nurse Care Team Related Persons Name: LAZARUS OSBORNE Address: [place] [address] Name: KAVON NICOLE Address: home [address] [place] [address] Name: PT, STATES NONE
--- OUTSIDE RECORDS SUMMARY | 2023-08-21 08:37 | XMS_ITS | Continuity of Care Document ---
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 4Location History: [facility] 5Location History: [facility] Medications alendronate 70 mg oral tablet 0 Refills, Maintenance, 07/13/19 10:24:47 EDT Start Date: 07/13/19 Status: Ordered aspirin 81 mg oral tablet 1 tablet = 81 mg, By Mouth, Daily, # 30 tablet, 0 Refills, Maintenance, 04/16/16 9:15:50, Tablet Start Date: 04/16/16 Status: Ordered Azithromycin 5 Day Dose Pack 250 mg oral tablet 1 pack/packet, By Mouth, Once, # 6 tablet, 0 Refills, Soft Stop, 12/06/19 15:31:00 EST, Tablet, [facility] #[id number], 170, cm, 12/06/19 15:03:00 EST, Height, 56.3, kg, 11/24/19 22:58:00 EST, Dry Weight Start Date: 12/06/19 Status: Ordered folic acid 1 mg oral tablet 1 mg, 1, tablet, By Mouth, Daily, # 30 tablet, Refills 3, Tot. Refills 3, Maintenance, 03/06/19 13:13:46 EDT, Route to Pharmacy Electronically, [id number], [id number] Start Date: 03/06/19 Status: Ordered gabapentin 300 mg oral capsule See Instructions, 2 capsules qam, 1 capsule midday, 2 capsules at night, # 150 capsule, Refills 5, Tot. Refills 5, Maintenance, 03/06/19 13:06:04 EDT, Instructions Replace Required Details, Route to Pharmacy Electronically, [id number]... Start Date: 03/06/19 Status: Ordered Home Blood Pressure Monitor See Instructions, # 1 Unknown, Maintenance, DX: Bradycardia, R00.1 low heart rate USE DAILY LIFETIME USE HEIGHT 170CM WEIGHT 56KG, 12/13/19 13:56:00 EST, Compound Start Date: 12/13/19 Status: Ordered Metoprolol Succinate ER 25 mg oral tablet, extended release 1 tablet = 25 mg, By Mouth, Daily, # 90 tablet, 0 Refills, Maintenance, 10/29/19 12:31:00 EST, XL Tablet, [facility] #[id number], 170, cm, 07/13/19 9:58:00 EDT, Height, 59.1, kg, 07/07/19 20:49:00 EDT, Dry Weight Start Date: 10/29/19 Status: Ordered Mucinex 600 mg oral tablet, extended release 1 tablet = 600 mg, By Mouth, 2 times a day, for 10 days, # 20 tablet, 0 Refills, Acute 12/16/19 15:33:00 EST, 12/06/19 15:33:00 EST, ER Tablet, [facility] #[id number], 170, cm, 12/06/19 15:03:00EST, Height, 56.3, kg, 11/24/19 22:58:00 EST, Dry W... Start Date: 12/06/19 Stop Date: 12/16/19 Status: Ordered Nicoderm C-Q Clear 14 mg/24 hr transdermal film, extended release 1 patch, Topically, Daily, # 30 patch, 0 Refills, Acute 12/27/19 13:41:00 EST, 11/26/19 13:41:00 EST, Patch, [facility] #[id number], 170, cm, 11/26/19 5:22:00 EST, Height, 56.3, kg, 11/24/19 22:58:00 EST, Dry Weight Start Date: 11/26/19 Stop Date: 12/27/19 Status: Ordered predniSONE 10 mg oral tablet See Instructions, 4 tabs x 3 days, 3 tabs x 3 days, 2 tabs x 3 days, 1 tab x 3 days, # 30 tablet, 0Refills, Acute 01/06/20 15:30:00 EST, 12/06/19 15:30:00 EST, Tablet, [facility] #[id number], 170, cm, 12/06/19 15:03:00 EST, Height, 56.3, kg, ... Start Date: 12/06/19 Stop Date: 01/06/20 Status: Ordered PULSE OXIMETER PULSE OXIMETER, See [...] 30 tablet, Refills 0, Tot. Refills 0, Acute, 10/24/19 13:04:00 EST, Route to Pharmacy Electronically, [facility] #[id number], 170, cm, 07/13/19 9:58:00 EDT, Height,59.1, kg, 07/07/19 20:49:00 EDT, Dry Weight Start Date: 10/24/19 Status: Ordered Problem List Condition Effective Dates Status Health Status Inform ant At risk for falls(Confirmed) Active Bradycardia(Confirmed) Active Cervical radiculopathy(Confirmed) Active Cardiac arrhythmia(Confirmed) Active Peripheral neuropathy(Confirmed) Active Hyperlipidemia(Confirmed) Active Hypoxia(Confirmed) Active Pulmonary nodule(Confirmed) Active Osteoporosis(Confirmed) Active Emphysema/COPD(Confirmed) Active Raynaud's phenomenon(Confirmed) Active Vital Signs Most recent to oldest [Reference Range]: 1 2 Height 170 cm (12/06/19 3:03 PM) 170 cm (12/06/19 2:48 PM) Weight 56 kg (12/06/19 2:48 PM) Oxygen Saturation [94-100 %] 89 % *L* (12/06/19 3:03 PM) 89 % *L* (12/06/19 2:48 PM) Pulse Rate [55-90 bpm] 54 bpm *L* (12/06/19 2:48 PM) Body Mass Index [18.5-24.99] 19.38 (12/06/19 2:48 PM) Blood Pressure [90-138/55-84 mm Hg] 132/ 76mm Hg (12/06/19 2:48 PM) Respiratory Rate [16-30 br/min] 16 br/mi n (12/06/19 2:48 PM) Temperature [96.8-100.4 DegF] 98.1 DegF (12/06/19 2:48 PM) Mode of Delivery (Oxygen) Room air (12/06/19 3:03 PM) Room air (12/06/19 2:48 PM) Blood pressure sites Arm, left (12/06/19 2:48 PM) Temperature Route Oral (12/06/19 2:48 PM) Weight Obtained Via Standing scale (12/06/19 2:48 PM) Social History Social History Type Response Smoking Status Current every day maria elena penn; Tobacco use times per day: smokes about 1.5 packs per day; entered on: 04/16/16 Sex
--- OUTSIDE RECORDS SUMMARY | 2023-08-21 08:37 | XMS_ITS | Continuity of Care Document ---
Author Name Unknown Organization [facility] Address [address] [place] [address]- Care Team Providers Care [employer] Consultant Name Role Phone Graciela Nunez MD Primary Care Physician Encounter [facility] Date(s): 01/05/22 - 01/12/22 [facility] [address] [place], [place] [address] Encounter Diagnosis End stage COPD(Discharge Diagnosis) - 01/05/22 Chronic respiratory failure with hypoxia(Discharge Diagnosis) - 01/05/22 AF (atrial fibrillation)(Discharge Diagnosis) - 01/05/22 Anxiety(Discharge Diagnosis) - 01/05/22 Attending Physician: Graciela Nunez MD Allergies, Adverse [...] 23-valent vaccine 6 07/31/10 Recorded 1Result Comment: [id number] given w/out incident 2Location History: [place], [place] 3Admin Note: done @ dr jones office 4Location History: [facility] 5Location History: [facility] 6Location History: [facility] Medications aspirin 81 mg oral delayed [...] 10/22/21 15:09:00 EST, Route to Pharmacy Electronically, [facility]#[id number], Partial fill upon patient request if the pr... Start Date: 10/22/21 Status: Ordered diltiazem 180 mg/24 hours oral capsule, extended release 180 mg, 1, capsule, By Mouth, Daily, # 30 capsule, Refills 0, Tot. Refills 0, Maintenance, 11/06/2209:09:00 EST, Route to Pharmacy Electronically, [facility] #[id number], Partial fill upon patient request if the prescription is for a schedule II... Start Date: 11/06/21 Status: Ordered Flonase 50 mcg/inh nasal spray 1 sprays, Nares, Both, Daily in AM, # 16 Gm, 4 Refills, Maintenance, 12/03/21 12:34:00 EST, [place], [facility] #[id number], Partial fill upon patient request if the prescription is for a scheduleII opioid drug., 1 sprays Nares, Both Daily in AM,... Start Date: 12/03/21 Status: Ordered folic acid 1 mg oral tablet 1 mg, 1, tablet, By Mouth, Daily, # 30 tablet, Refills 5, Tot. Refills 5, Maintenance, 01/31/21 16:35:00 EDT, Route to Pharmacy Electronically, [facility] #[id number], 170, cm, 10/02/20 10:06:00EST, Height, 56.3, kg, [...] 08/26/21 10:50:00 EDT, Route to Pharmacy Electronically, [facility] #[id number], 162.56, cm, 08/22/21 2:36:00 EDT, Height, 52.65, kg, 08/22/21 2:36:00 EDT... Start Date: 08/26/21 Status: Ordered lactulose 10 gm/15 ml oral syrup 15 mL = 10 Gm, By Mouth, Every 72 hours, PRN as needed for constipation, # 300 mL, 5 Refills, Maintenance, 01/05/22 10:50:00 EST, Syrup, [facility] #[id number], Partial fill upon patient requestif the prescription [...] 02/06/22 16:15:00 EDT, 12/26/21 16:15:00 EST, Patch, [facility] #[id number], Partial fill upon patient request if the [...] 0 Refills, Maintenance, 12/22/21 14:25:00 EST, Tablet, [facility] #[id number], Partial fill upon patient requ... Start Date: 12/22/21 Stop Date: 12/25/21 Status: Ordered predniSONE 10 mg oral tablet See Instructions, 4 tabs x 3 days, 3 tabs x 3 days, 2 tabs x 3 days, 1 tab x 3 days, # 30 tablet, 0Refills, Acute 02/07/22 11:15:00 EDT, 01/05/22 11:08:00 EST, Tablet, [facility] #[id number], Partial fill upon patient request if the [...] 10/22/21 15:09:00 EST, Route to Pharmacy Electronically, [facility] #[id number] Tablet, Partial fill upon patient request... Start [...] Refills, Maintenance, 02/26/21 15:47:00 EDT, ER Tablet, [facility] #[id number], Partial fill upon patient requestif the prescription is for a schedule II opioid ivonne... Start Date: 02/26/21 Status: Ordered Ventolin HFA 108 mcg/inh inhalation aerosol with adapter 2 puffs, Inhalation, 4 times a day, PRN for wheezing, # 1 each, 0 Refills, Maintenance, 10/02/20 10:55:00 EST, Aerosol, [facility]/pharmacy #[id number], 170, cm, 10/02/20 10:06:00 EST, Height, 56.3, kg, 11/24/19 22:58:00 EST, Dry Weight Start Date: 10/02/20 Status: Ordered Vitamin D3 1000 intl units oral capsule 1 capsule = 25 mcg, By Mouth, Daily, # 30 capsule, 11 Refills, Maintenance, 12/02/21 10:55:00 EST, Capsule, [facility] #[id number], Partial fill upon patient request if the [...] Effective Dates Health Status Clinical Service Informant AF (atrial fibrillation) Discharge Diagnosis 01/05/22 Chronic respiratory failure with hypoxia Discharge Diagnosis 01/05/22 End stage COPD Discharge Diagnosis 01/05/22 Anxiety Discharge Diagnosis 01/05/22 Vital Signs Most recent to oldest [Reference Range]: 1 Height 170 cm (01/05/22 10:40 AM) Oxygen Saturation [94-100 %] 99 % (01/05/22 10:40 AM) Pulse Rate [55-90 bpm] 112 bpm *H* (01/05/22 10:40 AM) Blood Pressure [90-138/55-84 mm Hg] 126/ 54mm Hg (01/05/22 10:40 AM) Liters per Minute 5 L/min (01/05/22 10:40 AM) Blood pressure sites Arm, right (01/05/22 10:40 AM) Social History Social History Type Response Tobacco Other: now smoking 1 /2 pack per day. Sex
--- OUTSIDE RECORDS SUMMARY | 2023-08-21 08:37 | XMS_ITS | Continuity of Care Document ---
Author Name Unknown Organization [facility] Address [address] [place] [address]- Care Team Providers Care Shell Sieve Operator Name Role Phone Graciela Nunez MD Primary Care Physician [phone] Encounter [facility] Date(s): 09/15/21 - 10/15/21 [facility] [address] [place], [place] [address] Allergies, Adverse Reactions, Alerts Substance [...] 23-valent vaccine 6 07/31/10 Recorded 1Result Comment: [id number] given w/out incident 2Location History: [place], [place] 3Admin Note: done @ dr jones office 4Location History: [facility] 5Location History: [facility] 6Location History: [facility] Medications alendronate 70 mg oral tablet [...] 0 Refills, Maintenance, 09/01/21 15:19:00 EDT, Capsule, [facility] #[id number], Partial fill upon patient request if the [...] 01/31/21 16:35:00 EDT, Route to Pharmacy Electronically, [facility] #[id number], 170, cm, 10/02/20 10:06:00EST, Height, 56.3, kg, 11/24/19 22:58:00 EST, Dry W... Start Date: 01/31/21 Status: Ordered furosemide 20 mg oral tablet 1, tablet, By Mouth, Daily, PRN, # 90 tablet, Refills 0, Tot. Refills 0, Maintenance, NEEDED FORLEG SWELLING, 04/19/20 15:50:00 EDT, Route to Pharmacy Electronically, [facility] #[id number],170, cm, 12/13/19 13:51:00 EST, Height, 56.3, kg, 0... Start Date: 04/19/20 Status: Ordered gabapentin 300 mg oral capsule 2, capsule, By Mouth, 3 times a day, # 180 capsule, Refills 1, Tot. Refills 1, Maintenance, 08/26/21 10:50:00 EDT, Route to Pharmacy Electronically, [facility] #[id number], 162.56, cm, 08/22/21 2:36:00 EDT, Height, 52.65, [...] tablet, 0 Refills, Maintenance, 09/10/21 16:04:00 EST, [facility] #[id number], 170, cm, 08/30/21 17:40:00 EDT, Height,51.5, kg, 08/30/21 17:40:00 EDT, Dry Weight Start Date: 09/10/21 Status: Ordered Metoprolol Succinate ER 25 mg oral tablet, extended release 1 tablet = 25 mg, By Mouth, Daily, # 90 tablet, 1 Refills, Maintenance, 01/29/20 10:50:00 EDT, XL Tablet, [facility] #[id number], 170, cm, 12/13/19 13:51:00 EST, Height, 56.3, [...] 3 Refills, Maintenance, 03/13/21 13:26:00 EDT, Tablet, [facility] #[id number], 170, cm, 10/02/20 10:06:00 EST, Height, 56.3, [...] Refills, Maintenance, 02/26/21 15:47:00 EDT, ER Tablet, [facility] #[id number], Partial fill upon patient requestif the prescription is for a schedule II opioid ivonne... Start Date: 02/26/21 Status: Ordered Ventolin HFA 108 mcg/inh inhalation aerosol with adapter 2 puffs, Inhalation, 4 times a day, PRN for wheezing, # 1 each, 0 Refills, Maintenance, 10/02/20 10:55:00 EST, Aerosol, [facility]/pharmacy #[id number], 170, cm, 10/02/20 10:06:00 EST, Height, 56.3, kg, 11/24/19 22:58:00 EST, Dry Weight Start Date: 10/02/20 Status: Ordered Vitamin B1 100 mg oral tablet 1, tablet, By Mouth, Daily, # 30 tablet, Refills 7, Tot. Refills 0, Acute, 01/06/21 14:35:00 EST, Route to Pharmacy Electronically, [facility] #[id number], 170, cm, 10/02/20 10:06:00 EST, Height, 56.3, kg, 11/24/19 22:58:00 EST, Dry Weight Start Date: 01/06/21 Status: Ordered Zofran 4 mg oral tablet 1 tablet = 4 mg, By Mouth, 3 times a day, PRN nausea, # 30 tablet, 0 Refills, Maintenance, :17:00 EDT, Tablet, [facility] #[id number], 170, cm, 12/13/19 13:51:00 EST, Height, 56.3, [...]
--- OUTSIDE RECORDS SUMMARY | 2023-08-21 08:37 | XMS_ITS | Continuity of Care Document ---
Author Name Unknown Organization [facility] Address [address] [place] [address]- Care Team Providers Care Crossband Layer Name Role Phone Mayra ORTIZ, Graciela Lares Primary Care Physician Encounter [facility] Date(s): 12/13/20 - 01/12/21 [facility] [address] [place], [place] [address] Allergies, Adverse Reactions, Alerts [...] 23-valent vaccine 5 07/31/10 Recorded 1Location History: [place], [place] 2Admin Note: done @ dr jones office 3Location History: [facility] 4Location History: [facility] [...] Replace Required Details, Route to Pharmacy Electronically, [facility][id number]... Start Date: 01/31/20 Status: Ordered folic acid 1 mg oral tablet 1 mg, 1, tablet, By Mouth, Daily, # 30 tablet, Refills 3, Tot. Refills 3, Maintenance, 01/18/20 10:43:00 EDT, Route to Pharmacy Electronically, [facility] #[id number], 170, cm, 12/13/19 13:51:00EST, Height, 56.3, kg, 11/24/19 22:58:00 EST, Dry W... Start Date: 01/18/20 Status: Ordered furosemide 20 mg oral tablet 1, tablet, By Mouth, Daily, PRN, # 90 tablet, Refills 0, Tot. Refills 0, Maintenance, NEEDED FORLEG SWELLING, 04/19/20 15:50:00 EDT, Route to Pharmacy Electronically, [facility] #[id number],170, cm, 12/13/19 13:51:00 EST, Height, 56.3, kg, 0... Start Date: 04/19/20 Status: Ordered gabapentin 300 mg oral capsule 600 mg, 2, capsule, By Mouth, 3 times a day, # 180 capsule, Refills 3, Tot. Refills 3, Maintenance,10/01/20 15:48:00 EST, Route to Pharmacy Electronically, [facility] #[id number], 170, cm, 12/13/19 13:51:00 EST, Height, 56.3, kg, 11/24/19 22:58:... Start Date: 10/01/20 Status: Ordered gabapentin 300 mg oral capsule See Instructions, TAKE 2 CAPSULES BY MOUTH three times per day, # 180 capsule, Refills 1, Instructions Replace Required Details, Route to Pharmacy Electronically, [facility] #[id number], 170, cm, 12/13/19 13:51:00 EST, Height, 56.3, [...] as needed for anxiety, for 14 days, # 28 tablet, 2 Refills, Acute 02/04/21 15:36:00 EDT, 12/24/20 15:36:00 EST, Tablet, [facility] #[id number], Partial fill upon patient request if the prescription... Start Date: 12/24/20 Stop Date: 02/04/21 Status: Ordered Metoprolol Succinate ER 25 mg oral tablet, extended release 1 tablet = 25 mg, By Mouth, Daily, # 90 tablet, 1 Refills, Maintenance, 01/29/20 10:50:00 EDT, XL Tablet, [facility] #[id number], 170, cm, 12/13/19 13:51:00 EST, Height, 56.3, [...] 3 Refills, Maintenance, 11/21/20 10:53:00 EST, Tablet, [facility] #[id number], 170, cm, 10/02/20 10:06:00 EST, Height, 56.3, [...] 6 Refills, Maintenance, 06/17/20 16:11:00 EDT, Aerosol, [facility] #[id number], 170, cm, 12/13/19 13:51:00 EST, Height, 56.3, kg, 11/24/19 22:58:00 EST, Dry Weight Start Date: 06/17/20 Stop Date: 01/13/21 Status: Ordered Ventolin HFA 108 mcg/inh inhalation aerosol with adapter 2 puffs, Inhalation, 4 times a day, PRN for wheezing, # 1 each, 0 Refills, Maintenance, 10/02/20 10:55:00 EST, Aerosol, [facility]/pharmacy #4471, 170, cm, 10/02/20 10:06:00 EST, Height, 56.3, kg, 11/24/19 22:58:00 EST, Dry Weight Start Date: 10/02/20 Status: Ordered Vitamin B1 100 mg oral tablet 1, tablet, By Mouth, Daily, # 30 tablet, Refills 7, Tot. Refills 0, Acute, 01/06/21 14:35:00 EST, Route to Pharmacy Electronically, [facility] #[id number], 170, cm, 10/02/20 10:06:00 EST, Height, 56.3, kg, 11/24/19 22:58:00 EST, Dry Weight Start Date: 01/06/21 Status: Ordered Zofran 4 mg oral tablet 1 tablet = 4 mg, By Mouth, 3 times a day, PRN nausea, # 30 tablet, 0 Refills, Maintenance, :17:00 EDT, Tablet, [facility][id number], 170, cm, 12/13/19 13:51:00 EST, Height, 56.3, [...]
--- OUTSIDE RECORDS SUMMARY | 2023-08-21 08:37 | XMS_ITS | Continuity of Care Document ---
Author Name Unknown Organization [facility] Address [address] [place] [address]- Care Team Providers Care Correction Officer Name Role Phone Graciela Nunez MD Primary Care Physician [phone] Encounter [facility] Date(s): 04/22/23 - 04/29/23 [facility] [address] [place] [address]- Encounter Diagnosis End stage COPD(Discharge Diagnosis) - 04/22/23 Chronic respiratory failure with hypoxia(Discharge Diagnosis) - 04/22/23 Hyponatremia(Discharge Diagnosis) - 04/22/23 Attending Physician: Brennen Napier MD Allergies, Adverse Reactions, Alerts Substance Reaction [...] 23-valent vaccine 6 07/31/10 Recorded 1Result Comment: [id number] given w/out incident 2Location History: [place], [place] 3Admin Note: done @ dr jones office 4Location History: [facility] 5Location History: [facility] 6Location History: [facility] Medications aspirin 81 mg oral delayed [...] Replace Required Details, Route to Pharmacy Electronically, [id number], 170, cm, ... Start Date: 03/26/23 Status: Ordered baclofen 10 mg oral tablet 10 mg, 1, tablet, By Mouth, 2 times a day, PRN, # 28 tablet, Refills 2, Tot. Refills 2, Maintenance, Pain , Moderate, 02/11/23 12:27:00 EDT, Route to Pharmacy Electronically, [facility]/pharmacy #[id number], Partial fill upon patient request if the [...] A DAY NEEDED FOR CONSTIPATION. FILLED AT [facility] Start Date: 03/18/23 Status: Ordered folic acid 1 mg oral tablet 1 mg, 1, tablet, By Mouth, Daily, # 30 tablet, Refills 11, Tot. Refills 11, Maintenance, 12/03/22 9:01:00 EST, Route to Pharmacy Electronically, [facility]/pharmacy #[id number], 170, cm, 02/04/22 11:19:00 EDT, Height, 44.1, kg, 12/20/21 16:05:00 EST, Dry Weight Start Date: 12/03/22 Status: Ordered gabapentin 300 mg oral capsule 2, capsule, By Mouth, 3 times a day, # 180 capsule, Refills 5, Tot. Refills 5, Maintenance, 08/13/22 13:03:00 EDT, Route to Pharmacy Electronically, [facility]/pharmacy #[id number], 170, cm, 02/04/22 11:19:00 EDT, Height, 44.1, kg, 12/20/21 16:05:00 EST, Dry Weight Start Date: 08/13/22 Status: Ordered hydrOXYzine hydrochloride 10 mg oral tablet 3 tablet = 30 mg, By Mouth, 3 times a day, PRN NEEDED FOR ANXIETY, # 270 tablet, 3 Refills, Maintenance, 03/01/23 12:03:00 EDT, [facility]/pharmacy #[id number], 170, cm, 02/04/22 11:19:00 EDT, Height, 44.1, kg, 12/20/21 16:05:00 EST, Dry Weight Start Date: 03/01/23 Status: Ordered LORazepam 0.5 mg oral tablet 1 tablet = 0.5 mg, By Mouth, 2 times a day, PRN as needed for anxiety, for 14 days, fill when due, # 28 tablet, 1 Refills, Acute 05/07/23 12:41:00 EDT, 04/09/23 12:41:00 EDT, Tablet, [facility]/pharmacy #[id number], Partial fill upon patient request [...] 3 Refills, Maintenance, 12/16/22 9:12:00 EST, Capsule, [facility]/pharmacy #[id number], Partial fill upon patient request [...] 0 Refills, Maintenance, 04/20/23 11:30:00 EDT, Tablet, [facility]/pharmacy #[id number], Partial fill upon patient request if the prescription is for a schedule II opio... Start Date: 04/20/23 Status: Ordered predniSONE 10 mg oral tablet See Instructions, 30 mg daily for 3 days and then 20 mg daily for 3 days and then continue 10 mg daily., # 39 each, 0 Refills, Maintenance, 03/22/23 13:16:00 EDT, Tablet, [facility], Partial fill upon patient request if [...] Refills, Maintenance, 10/02/20 10:55:00 EST, Aerosol, [facility]/pharmacy #[id number], 170, cm, 10/02/20 10:06:00 EST, Height, 56.3, kg, 11/24/19 22:58:00 EST, Dry Weight Start Date: 10/02/20 Status: Ordered Vitamin D3 1000 intl units oral capsule 1 capsule = 25 mcg, By Mouth, Daily, # 30 capsule, 11 Refills, Maintenance, 12/03/22 9:00:00 EST, Capsule, [facility]/pharmacy #[id number], Partial fill upon patient request [...] Effective Dates Health Status Clinical Service Informant End stage COPD Discharge Diagnosis 04/22/23 Chronic respiratory failure with hypoxia Discharge Diagnosis 04/22/23 Hyponatremia Discharge Diagnosis 04/22/23 Social History Social History Type Response Tobacco Other: now smoking 1 /2 pack per day. Sex Patient Care team information Care Team Personnel Name: Morgan Abbott MD Position: [facility] Renal MD Member Role: Lifetime Consulting Physician Address: Address: [address] [place] [address], [address] [place] [address]- Name: Graciela Nunez MD Position: [facility] Physician - Primary Care Member Role: PCP Address: Address: [address] [place] [address]- Name: Maryam Camara RN Position: [facility] RN Member Role: Primary Care Nurse Name: Rylie Francois RN Position: [facility] RN Member Role: Primary Care Nurse Name: Luisa Storey RN Position: S RN Member Role: Primary Care Nurse Name: Paty Ventura RN Position: S RN Member Role: Primary Care Nurse Name: Ninfa Soto RN Position: [facility] RN Member Role: Primary Care Nurse Name: Romeo Reid MD Position: [facility] Renal MD Member Role: Lifetime Consulting Physician Address: Address: [address] [place] [address] [address] [facility], [place] [address]- Name: Olga Valladares RN Position: S RN Member Role: Primary Care Nurse Name: Ruby Alexandre RN Position: [facility] RN Member Role: Primary Care Nurse Address: Address: [address] [place] [address]- [place] Name: Celso Lawson MD Position: [facility] Renal MD Member Role: Lifetime Consulting Physician Address: Address: [address] [place] [address] [facility] [place] [address]- Name: Chloe Fisher LPN Position: S RN Member Role: Primary Care Nurse Care Team Related Persons Name: LAZARUS OSBORNE Address: [place] [address] Name: KAVON NICOLE Address: home [address] [place] [address] Name: , [facility]
--- OUTSIDE RECORDS SUMMARY | 2023-08-21 08:37 | XMS_ITS | Continuity of Care Document ---
Author Name Unknown Organization [facility] Address [address] [place] [address]- Care Team Providers Care Pool Manager Name Role Phone Graciela Nunez MD Primary Care Physician [phone] Encounter [facility] Date(s): 11/26/21 - 12/26/21 [facility] [address] [place], [place] [address] Allergies, Adverse Reactions, Alerts Substance Reaction Severity [...] 23-valent vaccine 6 07/31/10 Recorded 1Result Comment: [id number] given w/out incident 2Location History: [place], [place] 3Admin Note: done @ dr jones office 4Location History: [facility] 5Location History: [facility] 6Location [...] 10/22/21 15:09:00 EST, Route to Pharmacy Electronically, [facility][id number], Partial fill upon patient request if the pr... Start Date: 10/22/21 Status: Ordered diltiazem 180 mg/24 hours oral capsule, extended release 180 mg, 1, capsule, By Mouth, Daily, # 30 capsule, Refills 0, Tot. Refills 0, Maintenance, 11/06/2209:09:00 EST, Route to Pharmacy Electronically, [facility] #[id number], Partial fill upon patient request if the prescription is for a schedule II... Start Date: 11/06/21 Status: Ordered Flonase 50 mcg/inh nasal spray 1 sprays, Nares, Both, Daily in AM, # 16 Gm, 4 Refills, Maintenance, 12/03/21 12:34:00 EST, [place], [facility] #[id number], Partial fill upon patient request if the prescription is for a scheduleII opioid drug., 1 sprays Nares, Both Daily in AM,... Start Date: 12/03/21 Status: Ordered folic acid 1 mg oral tablet 1 mg, 1, tablet, By Mouth, Daily, # 30 tablet, Refills 5, Tot. Refills 5, Maintenance, 01/31/21 16:35:00 EDT, Route to Pharmacy Electronically, [facility] #[id number], 170, cm, 10/02/20 10:06:00EST, Height, 56.3, kg, [...] 08/26/21 10:50:00 EDT, Route to Pharmacy Electronically, [facility] #[id number], 162.56, cm, 08/22/21 2:36:00 EDT, Height, 52.65, kg, 08/22/21 2:36:00 EDT... Start Date: 08/26/21 Status: Ordered lactulose 10 gm/15 ml oral syrup 15 mL = 10 Gm, By Mouth, Daily, PRN as needed for constipation, for 10 days, # 150 mL, 0 Refills, Acute 01/04/22 10:44:00 EST, 12/25/21 10:44:00 EST, Syrup, [facility] #[id number], Partial fill upon patient request if the [...] Acute 01/10/22 10:26:00EST, 12/17/21 10:18:00 EST, Suspension, [facility] #[id number], Partial fill upon patient request if the prescription is for a schedule II opioid... Start Date: 12/17/21 Stop Date: 01/10/22 Status: Ordered nicotine 21 mg/24 hr transdermal film, extended release 1 patch, Topically, Daily, for 6 week(s), # 42 patch, 0 Refills, Acute 02/06/22 16:15:00 EDT, 12/26/21 16:15:00 EST, Patch, [facility] #[id number], Partial fill upon patient request if the prescription is for a schedule II opioid drug., 1 patch T... Start Date: 12/26/21 Stop Date: 02/06/22 Status: Ordered nicotine 7 mg/24 hr transdermal film, extended release 1 patch, Topically, Daily, for 14 days, # 14 patch, 0 Refills, Acute 01/05/22 14:10:00 EST, 12/22/21 14:10:00 EST, Patch, [facility] #[id number], Partial fill upon patient request if the [...] 0 Refills, Maintenance, 12/22/21 14:25:00 EST, Tablet, [facility] #[id number], Partial fill upon patient requ... Start Date: [...] 10/22/21 15:09:00 EST, Route to Pharmacy Electronically, [facility] #[id number] Tablet, Partial fill upon patient request... Start [...] Refills, Maintenance, 02/26/21 15:47:00 EDT, ER Tablet, [facility] #[id number], Partial fill upon patient requestif the prescription is for a schedule II opioid ivonne... Start Date: 02/26/21 Status: Ordered Ventolin HFA 108 mcg/inh inhalation aerosol with adapter 2 puffs, Inhalation, 4 times a day, PRN for wheezing, # 1 each, 0 Refills, Maintenance, 10/02/20 10:55:00 EST, Aerosol, [facility]/pharmacy #[id number], 170, cm, 10/02/20 10:06:00 EST, Height, 56.3, kg, 11/24/19 22:58:00 EST, Dry Weight Start Date: 10/02/20 Status: Ordered Vitamin D3 1000 intl units oral capsule 1 capsule = 25 mcg, By Mouth, Daily, # 30 capsule, 11 Refills, Maintenance, 12/02/21 10:55:00 EST, Capsule, [facility] #[id number], Partial fill upon patient request if the [...]
--- OUTSIDE RECORDS SUMMARY | 2023-08-21 08:37 | XMS_ITS | Continuity of Care Document ---
Author Name Unknown Organization [facility] Address [address] [place] [address]- Care Team Providers Care Teletypesetter Name Role Phone Graciela Nunez MD Primary Care Physician [phone] Encounter [facility] Date(s): 03/01/23 - 03/08/23 [facility] [address] [place], [place] [address] Encounter Diagnosis Compression fracture of lumbar vertebra(Discharge Diagnosis) - 03/01/23 Chronic respiratory failure with hypoxia(Discharge Diagnosis) - 03/01/23 End stage COPD(Discharge Diagnosis) - 03/01/23 Anxiety(Discharge Diagnosis) - 03/01/23 AF (atrial fibrillation)(Discharge Diagnosis) - 03/01/23 Attending Physician: Graciela Nunez MD Allergies, Adverse [...] 23-valent vaccine 6 07/31/10 Recorded 1Result Comment: [id number] given w/out incident 2Location History: [place], [place] 3Admin Note: done @ dr jones office 4Location History: [facility] 5Location History: [facility] 6Location History: [facility] Medications aspirin 81 mg oral delayed [...] 02/11/23 12:27:00 EDT, Route to Pharmacy Electronically, [facility]/pharmacy #[id number], Partial fill upon patient request if the prescription is... Start Date: 02/11/23 Stop Date: 03/25/23 Status: Ordered busPIRone 10 mg oral tablet See Instructions, BEING TAPERED OFF, DECREASE BY 10MG EVERY DAY UNTIL DISCONTINUATION, # 60 tablet,Refills 1, Maintenance, 11/12/22 17:44:00 EST, Instructions Replace Required Details, Route to Pharmacy Electronically, [id number], 170, cm, 02/04... Start Date: 11/12/22 Status: Ordered calcium-vitamin D 600 mg-400 intl units oral tablet 1 tablet, By Mouth, 2 times a day, # 60 tablet, 6 Refills, Maintenance, 05/15/22 16:21:00 EDT, Tablet, [facility] #[id number], Partial fill upon patient request if the prescription is for a schedule II opioid drug., 1 tablet By Mouth 2 times a da... Start Date: 05/15/22 Status: Ordered clonazePAM 1 mg oral tablet See Instructions, take 1/2 tab by daily, # 10 tablet, 0 Refills, Maintenance, 03/01/23 12:06:00 EDT, Tablet, [facility]/pharmacy #[id number], Partial fill upon patient request if the prescription is for a schedule II opioid drug., 170, cm, 02/04/22 11:19:00 EDT, H... Start Date: 03/01/23 Status: Ordered Colace sodium 100 mg oral capsule 100 mg, 1, capsule, By Mouth, 2 times a day, PRN, # 180 capsule, Refills 1, Tot. Refills 1, Maintenance, for constipation, 06/23/22 10:20:00 EDT, Route to Pharmacy Electronically, [facility]/pharmacy #[id number],prefers gel formulation, 170, cm, 02/04/22 11:19:00... Start Date: 06/23/22 Status: Ordered Flonase 50 mcg/inh nasal spray 1 sprays, Nares, Both, Daily in AM, # 16 Gm, 4 Refills, Maintenance, 12/03/21 12:34:00 EST, [place], [facility] #[id number], Partial fill upon patient request if the prescription is for a scheduleII opioid drug., 1 sprays Nares, Both Daily in AM,... Start Date: 12/03/21 Status: Ordered folic acid 1 mg oral tablet 1 mg, 1, tablet, By Mouth, Daily, # 30 tablet, Refills 11, Tot. Refills 11, Maintenance, 12/03/22 9:01:00 EST, Route to Pharmacy Electronically, [facility]/pharmacy #[id number], 170, cm, 02/04/22 11:19:00 EDT, Height, 44.1, kg, 12/20/21 16:05:00 EST, Dry Weight Start Date: 12/03/22 Status: Ordered gabapentin 300 mg oral capsule 2, capsule, By Mouth, 3 times a day, # 180 capsule, Refills 5, Tot. Refills 5, Maintenance, 08/13/22 13:03:00 EDT, Route to Pharmacy Electronically, [facility]/pharmacy #[id number], 170, cm, 02/04/22 11:19:00 EDT, Height, 44.1, kg, 12/20/21 16:05:00 EST, Dry Weight Start Date: 08/13/22 Status: Ordered gabapentin 300 mg oral capsule See Instructions, TAKE 2 CAPSULES BY MOUTH 3 TIMES A DAY, # 180 capsule, Refills 1, Tot. Refills 1,Maintenance, 02/15/23 15:31:00 EDT, Instructions Replace Required Details, Route to Pharmacy Electronically, [id number], 170, cm, 02/04/22 11:19:0... Start Date: 02/15/23 Status: Ordered Hair, Skin & Nails 5 mg oral capsule 1 capsule = 5 mg, By Mouth, Daily, # 90 capsule, 3 Refills, Maintenance, 02/19/22 12:29:00 EDT, [facility] #[id number], Partial fill upon patient request if the prescription is for a schedule IIopioid drug., 1 capsule By Mouth Daily, 170, cm, 04... Start Date: 02/19/22 Status: Ordered hydrOXYzine hydrochloride 10 mg oral tablet 3 tablet = 30 mg, By Mouth, 3 times a day, PRN NEEDED FOR ANXIETY, # 270 tablet, 3 Refills, Maintenance, 03/01/23 12:03:00 EDT, [facility]/pharm[facility] #[id number], 170, cm, 02/04/22 11:19:00 EDT, Height, 44.1, kg, 12/20/21 16:05:00 EST, Dry Weight Start Date: 03/01/23 Status: Ordered lactulose 10 gm/15 ml oral syrup 15 mL = 10 Gm, By Mouth, Every 72 hours, PRN as needed for constipation, # 300 mL, 5 Refills, Maintenance, 03/19/22 14:45:00 EDT, Syrup, [facility] #[id number], Partial fill upon patient requestif the prescription is for a schedule II opioid ivonne... Start Date: 03/19/22 Status: Ordered Metoprolol Succinate ER 25 mg oral tablet, extended release TAKE 1 TABLET BY MOUTH ONCE DAILY Start Date: 12/03/22 Status: Ordered multivitamin Multiple Vitamins oral capsule 1 capsule, By Mouth, Daily, # 90 capsule, 3 Refills, Maintenance, 12/16/22 9:12:00 EST, Capsule, [facility]/pharmacy #[id number], Partial fill upon patient request [...] 12/03/22 8:52:00 EST, Route to Pharmacy Electronically, [facility]/pharmacy #[id number], Partial fill upon patient request if [...] tablet, 3 Refills, Maintenance, 02/02/23 13:02:00 EDT, [facility]/pharmacy #[id number], 170, cm, 02/04/22 11:19:00 EDT, Height, 44.1, kg,... Start Date: 02/02/23 Status: Ordered Tylenol 8 HR Arthritis Pain 650 mg oral tablet, extended release 1 tablet = 650 mg, By Mouth, Every 8 hours, PRN Pain , Moderate, # 100 tablet, 1 Refills, Maintenance, 02/26/21 15:47:00 EDT, ER Tablet, [facility] #[id number], Partial fill upon patient requestif the prescription [...] 11 Refills, Maintenance, 12/03/22 9:00:00 EST, Capsule, [facility]/pharmacy #[id number], Partial fill upon patient request [...] Effective Dates Health Status Clinical Service Informant Compression fracture of lumbar vertebra Discharge Diagnosis 03/01/23 Chronic respiratory failure with hypoxia Discharge Diagnosis 03/01/23 End stage COPD Discharge Diagnosis 03/01/23 Anxiety Discharge Diagnosis 03/01/23 AF (atrial fibrillation) Discharge Diagnosis 03/01/23 Social History Social History Type Response Tobacco Other: now smoking 1 /2 pack per day. Sex Patient Care team information Care Team Personnel Name: Milena ORTIZ, Morgan Hancock Position: [facility] Renal MD Member Role: Lifetime Consulting Physician Address: Address: [address] [place] [address], [facility] [address] [place] [address]- Name: Graciela Nunez MD Position: [facility] Primary Care Physician Member Role: PCP Address: Address: [address] [place] [address]- Name: Luisa Storey RN Position: [facility] RN Member Role: Primary Care Nurse Care Team Related Persons Name: LAZARUS OSBORNE Address: [place] [address] Name: KAVON NICOLE Address: home [address] [place] [address] Name: PT, STATES NONE
--- OUTSIDE RECORDS SUMMARY | 2023-08-21 08:37 | XMS_ITS | Continuity of Care Document ---
Author Name Unknown Organization [facility] Address [address] [place] [address]- Care Team Providers Care Department Director Name Role Phone Graciela Nunez MD Primary Care Physician [place] [facility] Date(s): 04/29/23 - 05/29/23 [facility] [address] [place], [place] [address] Allergies, Adverse Reactions, Alerts Substance [...] 23-valent vaccine 6 07/31/10 Recorded 1Result Comment: [id number] given w/out incident 2Location History: [place], [place] 3Admin Note: done @ dr jones office 4Location History: [facility] 5Location History: [facility] 6Location History: [facility] Medications albuterol-ipratropium 3 mg-0.5 [...] 05/25/23 15:31:00 EDT, Route to Pharmacy Electronically, [facility]/pharmacy #[id number], Partial fill upon patient request if the [...] A DAY NEEDED FOR CONSTIPATION. FILLED AT [facility] Start Date: 03/18/23 Status: Ordered folic acid 1 mg oral tablet 1 mg, 1, tablet, By Mouth, Daily, # 30 tablet, Refills 11, Tot. Refills 11, Maintenance, 12/03/22 9:01:00 EST, Route to Pharmacy Electronically, [facility]/pharmacy #[id number], 170, cm, 02/04/22 11:19:00 EDT, Height, 44.1, kg, 12/20/21 16:05:00 EST, Dry Weight Start Date: 12/03/22 Status: Ordered gabapentin 300 mg oral capsule 2, capsule, By Mouth, 3 times a day, # 180 capsule, Refills 5, Tot. Refills 5, Maintenance, 08/13/22 13:03:00 EDT, Route to Pharmacy Electronically, [facility]/pharmacy #[id number], 170, cm, 02/04/22 11:19:00 EDT, Height, 44.1, kg, 12/20/21 16:05:00 EST, Dry Weight Start Date: 08/13/22 Status: Ordered hydrOXYzine hydrochloride 10 mg oral tablet 3 tablet = 30 mg, By Mouth, 3 times a day, PRN NEEDED FOR ANXIETY, # 270 tablet, 3 Refills, Maintenance, 03/01/23 12:03:00 EDT, [facility] #[id number], 170, cm, 02/04/22 11:19:00 EDT, Height, 44.1, kg, 12/20/21 16:05:00 EST, Dry Weight Start Date: 03/01/23 Status: Ordered LORazepam 0.5 mg oral tablet 1 tablet = 0.5 mg, By Mouth, 2 times a day, PRN as needed for anxiety, for 7 days, FOLLOW UP WITH YOUR PSYCHIATRY MED PROVIDER FOR ANXIETY MANAGEMENT, # 14 tablet, 0 Refills, Acute 06/01/23 15:30:00 EDT, 05/25/23 15:30:00 EDT, Tablet, [facility]/pharmacy #[id number]... Start Date: 05/25/23 Stop Date: 06/01/23 Status: Ordered Metoprolol Succinate ER 25 mg [...] 3 Refills, Maintenance, 12/16/22 9:12:00 EST, Capsule, [facility]/pharmacy #[id number], Partial fill upon patient [...] 0 Refills, Maintenance, 10/02/20 10:55:00 EST, Aerosol, [facility]/pharmacy #[id number], 170, cm, 10/02/20 10:06:00 EST, Height, 56.3, kg, 11/24/19 22:58:00 EST, Dry Weight Start Date: 10/02/20 Status: Ordered Vitamin D3 1000 intl units oral capsule 1 capsule = 25 mcg, By Mouth, Daily, # 30 capsule, 11 Refills, Maintenance, 12/03/22 9:00:00 EST, Capsule, [id number], Partial fill upon patient request if the [...] Milena ORTIZ, Morgan Hancock Position: [facility] Renal MD Member Role: Lifetime Consulting Physician Address: Address: [address] [place] [address] Name: Graciela Nunez MD Position: [facility] Physician - Primary Care Member Role: PCP Address: Address: [address] [place] [address] Name: Maryam Camara RN Position: [facility] RN Member Role: Primary Care Nurse Name: Josemanuel Hawkins RN Position: [facility] RN Member Role: Primary Care Nurse Name: Rylie Francois RN Position: [facility] RN Member Role: Primary Care Nurse Name: Luisa Storey RN Position: S RN Member Role: Primary Care Nurse Name: Anabela Beavers Position: S RN Member Role: Primary Care Nurse Name: Tracey Chavez Position: [facility] RN Member Role: Primary Care Nurse Name: Angelica Montemayor RN Position: S RN Member Role: Primary Care Nurse Name: Paty Ventura RN Position: S RN Member Role: Primary Care Nurse Name: Ninfa Soto RN Position: S RN Member Role: Primary Care Nurse Name: Romeo Reid MD Position: [facility] Renal MD Member Role: Lifetime Consulting Physician Address: Address: [address] [place] [address] [address] [facility], [place] [address]- Name: Olga Valladares RN Position: S RN Member Role: Primary Care Nurse Name: Ruby Alexandre RN Position: S RN Member Role: Primary Care Nurse Address: Address: [address] [place] [address]- Name: Celso Lawson MD Position: [facility] Renal MD Member Role: Lifetime Consulting Physician Address: Address: [address] [place] [address] [facility] [place] [address]- Name: Alyssa Camacho RN Position: S RN Member Role: Primary Care Nurse Name: Keely Pascal RN Position: S RN Member Role: Primary Care Nurse Name: Chloe Fisher LPN Position: S RN Member Role: Primary Care Nurse Care Team Related Persons Name: LAZARUS OSBORNE Address: [place] [address] Name: KAVON NICOLE Address: home [address] [place] [id number] Name: PT, STATES NONE
--- OUTSIDE RECORDS SUMMARY | 2023-08-21 08:37 | XMS_ITS | Continuity of Care Document ---
Author Name Unknown Organization [facility] Address [address] [place] [address]- Care Team Providers Care Lead Blender Name Role Phone Graciela Nunez MD Primary Care Physician [phone] Encounter [facility] Date(s): 11/18/21 - 12/18/21 [facility] [address] [place], [place] [address] Allergies, Adverse Reactions, Alerts Substance Reaction [...] 23-valent vaccine 6 07/31/10 Recorded 1Result Comment: [id number] given w/out incident 2Location History: [place], [place] 3Admin Note: done @ dr jones office 4Location History: [facility] 5Location History: [facility] 6Location History: [facility] Medications aspirin 81 mg oral delayed release tablet 81 mg, 1, tablet, By Mouth, Daily, # 30 tablet, Refills 0, Maintenance, 12/17/21 10:34:00 EST, Partial fill upon patient request if the prescription is for a schedule II opioid drug. Start Date: 12/17/21 Status: Ordered aspirin 81 mg oral delayed release tablet 81 mg, 1, tablet, By Mouth, Daily, # 30 tablet, Refills 0, Tot. Refills 0, Maintenance, 11/06/21 10:22:00 EST, Do Not Route, Partial fill upon patient request if the prescription is for a schedule IIopioid drug. Start Date: 11/06/21 Status: Ordered atorvastatin 20 mg oral tablet 1 tablet = 20 mg, By Mouth, Daily, # 30 tablet, 0 Refills, Maintenance, 12/17/21 10:33:00 EST, Tablet, [...] 10/22/21 15:09:00 EST, Route to Pharmacy Electronically, [facility][id number], Partial fill upon patient request if the pr... Start Date: 10/22/21 Status: Ordered diltiazem 180 mg/24 hours oral capsule, extended release 180 mg, 1, capsule, By Mouth, Daily, # 30 capsule, Refills 0, Tot. Refills 0, Maintenance, 11/06/2209:09:00 EST, Route to Pharmacy Electronically, [facility] #[id number], Partial fill upon patient request if the prescription is for a schedule II... Start Date: 11/06/21 Status: Ordered Flonase 50 mcg/inh nasal spray 1 sprays, Nares, Both, Daily in AM, # 16 Gm, 4 Refills, Maintenance, 12/03/21 12:34:00 EST, [place], [facility] #[id number], Partial fill upon patient request if the prescription is for a scheduleII opioid drug., 1 sprays Nares, Both Daily in AM,... Start Date: 12/03/21 Status: Ordered folic acid 1 mg oral tablet 1 mg, 1, tablet, By Mouth, Daily, # 30 tablet, Refills 5, Tot. Refills 5, Maintenance, 01/31/21 16:35:00 EDT, Route to Pharmacy Electronically, [facility] #[id number], 170, cm, 10/02/20 10:06:00EST, Height, 56.3, kg, 11/24/19 22:58:00 EST, Dry W... Start Date: 01/31/21 Status: Ordered furosemide 40 mg oral tablet 40 mg, 1, tablet, By Mouth, Daily, # 30 tablet, Refills 0, Maintenance, 12/17/21 10:36:00 EST, Partial fill upon patient request if the prescription is for a schedule II opioid drug. Start Date: 12/17/21 Status: Ordered gabapentin 300 mg oral capsule 2, capsule, By Mouth, 3 times a day, # 180 capsule, Refills 1, Tot. Refills 1, Maintenance, 08/26/21 10:50:00 EDT, Route to Pharmacy Electronically, [facility] #[id number], 162.56, cm, 08/22/21 2:36:00 EDT, Height, 52.65, kg, 08/22/21 2:36:00 EDT... Start Date: 08/26/21 Status: Ordered LORazepam 0.5 mg oral tablet 1 tablet = 0.5 mg, By Mouth, 3 times a day, PRN as needed for anxiety, # 60 tablet, 1 Refills, Maintenance, 12/17/21 10:15:00 EST, [facility] #[id number], new dosage, 173, cm, 11/06/21 7:58:00 EST, Height, 46.2, kg, 10/29/21 15:33:00 EST, Dry Weight Start Date: 12/17/21 Status: Ordered Metoprolol Succinate ER 25 mg oral tablet, extended release TAKE 1 TABLET BY MOUTH EVERY DAY Start Date: 12/17/21 Status: Ordered Metoprolol Succinate ER 25 mg oral tablet, extended release TAKE 1 TABLET BY MOUTH EVERY DAY Start Date: 12/17/21 Status: Ordered Milk of Magnesia 8% oral suspension 60 mL = 4.8 Gm, By Mouth, Daily, PRN for constipation, # 600 mL, 0 Refills, Acute 01/10/22 10:26:00EST, 12/17/21 10:18:00 EST, Susp[place], [facility] #[id number], Partial fill upon patient request if the prescription is for a schedule II opioid... Start Date: 12/17/21 Stop Date: 01/10/22 Status: Ordered multivitamin Multiple Vitamins oral tablet 1 tablet, By Mouth, Daily, # 30 tablet, 11 Refills, Maintenance, 11/26/21 13:34:00 EST, Tablet, [facility] #[id number], Partial fill upon patient request if the prescription is for a schedule IIopioid drug., 1 tablet By Mouth Daily, 173, cm, ... Start Date: 11/26/21 Status: Ordered predniSONE 5 mg oral tablet 1 tablet = 5 mg, By Mouth, Daily, 0 Refills, Maintenance, 11/06/21 10:25:00 EST, Tablet, Partial fill upon patient request if the prescription is for a schedule II opioid drug. Start Date: 11/06/21 Status: Ordered Robaxin-750 750 mg oral tablet 2 tablet = 1,500 mg, By Mouth, 3 times a day, PRN Pain , Moderate, # 90 tablet, 3 Refills, Maintenance, 03/13/21 13:26:00 EDT, Tablet, [facility] #[id number], 170, cm, 10/02/20 10:06:00 EST, Height, 56.3, kg, 11/24/19 22:58:00 EST, Dry Weight Start Date: 03/13/21 Status: Ordered Senna 8.6 mg oral tablet 17.2 mg, 2, tablet, By Mouth, Daily at bedtime, PRN, # 100 tablet, Refills 0, Tot. Refills 0, Maintenance, for constipation, 10/22/21 15:09:00 EST, Route to Pharmacy Electronically, [facility] #[id number] Tablet, Partial fill upon patient request... Start [...] Refills, Maintenance, 02/26/21 15:47:00 EDT, ER Tablet, [facility] #[id number], Partial fill upon patient requestif the prescription is for a schedule II opioid ivonne... Start Date: 02/26/21 Status: Ordered Ventolin HFA 108 mcg/inh inhalation aerosol with adapter 2 puffs, Inhalation, 4 times a day, PRN for wheezing, # 1 each, 0 Refills, Maintenance, 10/02/20 10:55:00 EST, Aerosol, [facility]/pharmacy #[id number], 170, cm, 10/02/20 10:06:00 EST, Height, 56.3, kg, 11/24/19 22:58:00 EST, Dry Weight Start Date: 10/02/20 Status: Ordered Vitamin D3 1000 intl units oral capsule 1 capsule = 25 mcg, By Mouth, Daily, # 30 capsule, 11 Refills, Maintenance, 12/02/21 10:55:00 EST, Capsule, [facility] #[id number], Partial fill upon patient request if the [...]
--- OUTSIDE RECORDS SUMMARY | 2023-08-21 08:37 | XMS_ITS | Continuity of Care Document ---
Author Name Unknown Organization [facility] Address [address] [place] [address]- Care Team Providers Care Round Cutter Operator Name Role Phone Graciela Nunez MD Primary Care Physician Encounter [facility] Date(s): 06/19/20 - 07/19/20 [facility] [address] [place] [address]- [facility] Allergies, Adverse Reactions, Alerts Substance Reaction Severity [...] 23-valent vaccine 5 07/31/10 Recorded 1Location History: [place], [place] 2Admin Note: done @ dr jones office 3Location History: [facility] 4Location History: [facility] 5Location History: [facility] Medications alendronate 70 mg oral tablet 0 Refills, Maintenance, 07/13/19 10:24:47 EDT Start Date: 07/13/19 Status: Ordered aspirin 81 mg oral tablet 1 tablet = 81 mg, By Mouth, Daily, # 30 tablet, 0 Refills, Maintenance, 04/16/16 9:15:50, Tablet Start Date: 04/16/16 Status: Ordered baclofen 10 mg oral tablet 10 mg, 1, tablet, By Mouth, Daily, PRN, # 14 tablet, Refills 0, Tot. Refills 0, Maintenance, as needed for muscle spasm, 07/18/20 12:59:00 EDT, Route to Pharmacy Electronically, [facility] #[id number], 170, cm, 12/13/19 13:51:00 EST, Height, 56.3... Start Date: 07/18/20 Stop Date: 08/01/20 Status: Ordered Bed Wedge Bed Wedge, See [...] Replace Required Details, Route to Pharmacy Electronically, [facility] #[id number]... Start Date: 01/31/20 Status: Ordered erythromycin [...] 01/18/20 10:43:00 EDT, Route to Pharmacy Electronically, [facility] #[id number], 170, cm, 12/13/19 13:51:00EST, Height, 56.3, kg, 11/24/19 22:58:00 EST, Dry W... Start Date: 01/18/20 Status: Ordered furosemide 20 mg oral tablet 1, tablet, By Mouth, Daily, PRN, # 90 tablet, Refills 0, Tot. Refills 0, Maintenance, NEEDED FORLEG SWELLING, 04/19/20 15:50:00 EDT, Route to Pharmacy Electronically, [facility] #[id number],170, cm, 12/13/19 13:51:00 EST, Height, 56.3, kg, 0... Start Date: 04/19/20 Status: Ordered gabapentin 300 mg oral capsule See Instructions, TAKE 2 CAPSULES BY MOUTH EVERY MORNING, 1 CAPSULE MID DAY AND 2 CAPSULES EVERY NIGHT AT BEDTIME, # 150 capsule, Refills 1, Maintenance, Instructions Replace Required Details, Route to Pharmacy Electronically, [facility] #[id number]... Start Date: 01/19/20 Status: Ordered Home [...] Refills, Maintenance, 01/29/20 10:50:00 EDT, XL Tablet, [facility] #[id number], 170, cm, 12/13/19 13:51:00 EST, Height, 56.3, [...] 6 Refills, Maintenance, 06/17/20 16:11:00 EDT, Aerosol, [facility] #[id number], 170, cm, 12/13/19 13:51:00 EST, Height, 56.3, kg, 11/24/19 22:58:00 EST, Dry Weight Start Date: 06/17/20 Stop Date: 01/13/21 Status: Ordered Ventolin HFA 108 mcg/inh inhalation aerosol with adapter 2 puffs, Inhalation, 4 times a day, PRN for wheezing, # 18 Gm, 6 Refills, Maintenance, 06/17/20 16:11:00 EDT, Aerosol, [facility] #[id number], 170, cm, 12/13/19 13:51:00 EST, Height, 56.3, kg, 11/24/19 22:58:00 EST, Dry Weight Start Date: 06/17/20 Stop Date: 01/13/21 Status: Ordered Vitamin B1 100 mg oral tablet 1, tablet, By Mouth, Daily, # 30 tablet, Refills 11, Tot. Refills 0, Acute, 12/18/19 14:10:00 EST, Route to Pharmacy Electronically, [facility] #[id number], 170, cm, 12/13/19 13:51:00 EST, Height, 56.3, kg, 11/24/19 22:58:00 EST, Dry Weight Start Date: 12/18/19 Status: Ordered Zofran 4 mg oral tablet 1 tablet = 4 mg, By Mouth, 3 times a day, PRN nausea, # 30 tablet, 0 Refills, Maintenance, :17:00 EDT, Tablet, [facility] #[id number], 170, cm, 12/13/19 13:51:00 EST, Height, 56.3, kg, 11/24/19 22:58:00 EST, Dry Weight Start Date: 06/12/20 Stop Date: 06/22/20 Status: Ordered Problem List Condition Effective Dates Status Health Status Inform ant At risk for falls(Confirmed) Active Bradycardia(Confirmed) Active Cervical radiculopathy(Confirmed) Active Cardiac arrhythmia(Confirmed) Active Peripheral neuropathy(Confirmed) Active Hyperlipidemia(Confirmed) Active Hypoxia(Confirmed) Active Pulmonary nodule(Confirmed) Active Osteoporosis(Confirmed) Active Emphysema/COPD(Confirmed) Active Raynaud's phenomenon(Confirmed) Active Social History Social History Type Response Smoking Status Current every day maria elena penn; Tobacco use times per day: smokes about 1.5 packs per day; entered on: 04/16/16 Sex
--- OUTSIDE RECORDS SUMMARY | 2023-08-21 08:37 | XMS_ITS | Continuity of Care Document ---
Author Name Unknown Organization [facility] Address [address] [place] [address]- Care Team Providers Care Window Trimmer Name Role Phone Mayra ORTIZ, Graciela Lares Primary Care Physician Encounter [facility] Date(s): 11/24/19 - 11/26/[address] [address] [facility] Discharge Disposition: A-D/C Home Attending Physician: Bobby Deluna DO Admitting Physician: Johanna Brewer DO Referring Physician: Will Ortiz DO Allergies, Adverse Reactions, Alerts Substance Reaction Severity [...] 23-valent vaccine 5 07/31/10 Recorded 1Location History: [place], [place] 2Admin Note: done @ dr jones office 3Location History: [facility] 4Location History: [facility] 5Location History: [facility] Medications alendronate 70 mg oral tablet 0 Refills, Maintenance, 07/13/19 10:24:47 EDT Start Date: 07/13/19 Status: Ordered aspirin 81 mg oral tablet 1 tablet = 81 mg, By Mouth, Daily, # 30 tablet, 0 Refills, Maintenance, 04/16/16 9:15:50, Tablet Start Date: 04/16/16 Status: Ordered doxycycline hyclate 100 mg oral capsule 1 capsule = 100 mg, By Mouth, 2 times a day, for 5 days, # 10 capsule, 0 Refills, Acute 12/01/19 13:41:00 EST, 11/26/19 13:41:00 EST, Capsule, [facility] #[id number], 170, cm, 11/26/19 5:22:00 EST, Height, 56.3, kg, 11/24/19 22:58:00 EST, Dry Weight Start Date: 11/26/19 Stop Date: 12/01/19 Status: Ordered folic acid 1 mg oral tablet 1 mg, 1, tablet, By Mouth, Daily, # 30 tablet, Refills 3, Tot. Refills 3, Maintenance, 03/06/19 13:13:46 EDT, Route to Pharmacy Electronically, [id number], [facility] [id number] Start Date: 03/06/19 Status: Ordered gabapentin 300 mg oral capsule See Instructions, 2 capsules qam, 1 capsule midday, 2 capsules at night, # 150 capsule, Refills 5, Tot. Refills 5, Maintenance, 03/06/19 13:06:04 EDT, Instructions Replace Required Details, Route to Pharmacy Electronically, [id number]... Start Date: 03/06/19 Status: Ordered Metoprolol Succinate ER 25 mg oral tablet, extended release 1 tablet = 25 mg, By Mouth, Daily, # 90 tablet, 0 Refills, Maintenance, 10/29/19 12:31:00 EST, XL Tablet, [facility] #[id number], 170, cm, 07/13/19 9:58:00 EDT, Height, 59.1, kg, 07/07/19 20:49:00 EDT, Dry Weight Start Date: 10/29/19 Status: Ordered Nicoderm C-Q Clear 14 mg/24 hr transdermal film, extended release 1 patch, Topically, Daily, # 30 patch, 0 Refills, Acute 12/27/19 13:41:00 EST, 11/26/19 13:41:00 EST, Patch, [facility] #[id number], 170, cm, 11/26/19 5:22:00 EST, Height, 56.3, kg, 11/24/19 22:58:00 EST, Dry Weight Start Date: 11/26/19 Stop Date: 12/27/19 Status: Ordered predniSONE 20 mg oral tablet 2 tablet = 40 mg, By Mouth, Daily, for 5 days, # 10 tablet, 0 Refills, Acute 12/01/19 13:41:00 EST,11/26/19 13:41:00 EST, Tablet, [facility] #[id number], 170, cm, 11/26/19 5:22:00 EST, Height, 56.3, kg, 11/24/19 22:58:00 EST, Dry Weight Start Date: 11/26/19 Stop Date: 12/01/19 Status: Ordered Spiriva HandiHaler 18 mcg Inhalation [...] 10/24/19 13:04:00 EST, Route to Pharmacy Electronically, [facility] #[id number], 170, cm, 07/13/19 9:58:00 EDT, Height,59.1, kg, 07/07/19 20:49:00 EDT, Dry Weight Start Date: 10/24/19 Status: Ordered Problem List Condition Effective Dates Status Health Status Inform ant Cervical radiculopathy(Confirmed) Active Cardiac arrhythmia(Confirmed) Active Peripheral neuropathy(Confirmed) Active Hyperlipidemia(Confirmed) Active Pulmonary nodule(Confirmed) Active Osteoporosis(Confirmed) Active Emphysema/COPD(Confirmed) Active Raynaud's phenomenon(Confirmed) Active Results Orders for Microbiology Reports Name Date Blood Culture #2 11/24/19 Microbiology Reports TEST:Blood Culture, Second Order STATUS:Unauthenticated BODY SITE: SOURCE:Blood COLLECTED DATE/TIME:11/24/19 6:30 PM Blood Culture, Second Order SPECIMEN DESCRIPTION : BLOOD SPECIAL REQUESTS : NONE CULTURE : NO GROWTH AFTER 48 HOURS REPORT STATUS : PRELIMINARY REPORT Radiology Reports * Exam Date Time Procedure Performing Provider Status 11/24/19 8:29 PM Chest 2 Views Frontal and Lat Hiwot Vincent; Auth (Verified) Notes: (Chest 2 Views Frontal and Lat) Reason For Exam: Shortness of Breath RESULT: Chest 2 Views Frontal and Lat Chest 2 Views Frontal and Lat INDICATION/CLINICAL QUESTION: Reason: Shortness of Breath; Clinical Question(s): CHF; Hx of PresentIllness: Patient reports noticing lower leg swelling last night. Patient has also has increased SOB, worse than normal. Patient has COPD, Emphsema; Other Objective Findings: Patient in obvious resp distress / CHF COMPARISON: X-ray from 07/07/2019 04/16/2016 FINDINGS: LINES AND TUBES: None. LUNGS AND PLEURA: Clear lungs. Normal pulmonary vascularity. No pleural effusion. No pneumothorax. Mild hyperinflation consistent with COPD. HEART, MEDIASTINUM AND DEEPALI: Heart is normal in size. Normal mediastinal and hilar contour. BONES AND SOFT TISSUES: No acute abnormality. Unchanged mild compression deformities of mid thoracic vertebral bodies. Bilateral partially calcified breast implants again seen. IMPRESSION: No pneumonia or CHF. Mild COPD. No significant interval change. WSN: [id number] Dictated By: Dominik Huynh MD Dictated Date/Time: 11/24/19 8:54 pm Reviewed By: Dominik Huynh MD Signed By: Dominik Huynh MD Signed Date/Time: 11/24/19 8:54 pm Transcribed By: VALENTIN Transcribed Date/Time: 11/24/19 8:53 pm Vital Signs Most recent to oldest [Reference Range]: 1 2 3 Height 170 cm (11/26/19 5:22 AM) 170 cm (11/25/19 1:55 PM) 170 cm (11/25/19 6:02 AM) Weight 56.3 kg (11/24/19 10:50 PM) 57 kg (11/24/19 7:31 PM) 57 kg (11/24/19 5:50 PM) Oxygen Saturation [94-100 %] 91 % *L* (11/26/19 5:22 AM) 93 % *L* (11/25/19 8:00 PM) 92 % *L* (11/25/19 1:55 PM) Pulse Rate [55-90 bpm] 94 bpm *H* (11/26/19 8:23 AM) 95 bpm *H* (11/26/19 5:22 AM) 109 bpm *H* (11/25/19 8:00 PM) Body Mass Index [18.5-24.99] 19.48 (11/24/19 10:50 PM) 19.72 (11/24/19 7:31 PM) Blood Pressure [90-138/55-84 mm Hg] 128/72mm Hg (11/26/19 8:23 AM) 130/75mm Hg (11/26/19 5:22 AM) 131/75mm Hg (11/25/19 8:00 PM) Respiratory Rate [16-30 br/min] 19 br/min (11/26/19 12:45 PM) 19 br/min (11/26/19 11:45 AM) 17 br/min (11/26/19 10:15 AM) Temperature [96.8-100.4 DegF] 97.5 DegF (11/26/19 5:22 AM) 98 DegF (11/25/19 8:00 PM) 97.5 DegF (11/25/19 1:55 PM) Liters per Minute 2 L/min (11/26/19 5:22 AM) 2 L/min (11/25/19 8:00 PM) 1.5 L/min (11/25/19 1:55 PM) Mode of Delivery (Oxygen) Nasal cannula (11/26/19 5:22 AM) Nasal cannula (11/25/19 8:00 PM) Nasal cannula (11/25/19 1:55 PM) Blood pressure sites Arm, right (11/26/19 5:22 AM) Arm, left (11/25/19 6:02 AM) Arm, left (11/24/19 10:50 PM) Temperature Route Temporal (11/26/19 5:22 AM) Temporal (11/25/19 1:55 PM) Temporal (11/25/19 6:02 AM) Dry Weight 56.3 kg (11/24/19 10:50 PM) 57 kg (11/24/19 7:31 PM) 57 kg (11/24/19 5:50 PM) Weight Obtained Via Bed scale (11/24/19 10:50 PM) Dry Weight Obtained Via Bed scale (11/24/19 10:50 PM) Sensory deficits None (11/24/19 10:50 PM) Mobility assistance Independent (11/24/19 10:50 PM) Social History Social History Type Response Smoking Status Current every day maria elena penn; Tobacco use times per day: smokes about 1.5 packs per day; entered on: 04/16/16 Sex
--- OUTSIDE RECORDS SUMMARY | 2023-08-21 08:38 | XMS_ITS | Continuity of Care Document ---
Author Name Unknown Organization [facility] Address [address] [place] [address]- Care Team Providers Care Manager Credit Risk Name Role Phone Graciela Nunez MD Primary Care Physician Encounter [facility] Date(s): 05/24/23 - 06/23/23 [facility] [address] [place], [place] [address] Allergies, Adverse Reactions, Alerts Substance Reaction [...] 23-valent vaccine 6 07/31/10 Recorded 1Result Comment: [id number] given w/out incident 2Location History: [place], [place] 3Admin Note: done @ dr jones office 4Location History: [facility] 5Location History: [facility] 6Location History: [facility] Medications albuterol-ipratropium 3 mg-0.5 mg/3 [...] 05/25/23 15:31:00 EDT, Route to Pharmacy Electronically, [facility]/pharmacy #[id number], Partial fill upon patient request if the [...] A DAY NEEDED FOR CONSTIPATION. FILLED AT [facility] Start Date: 03/18/23 Status: Ordered folic acid 1 mg oral tablet 1 mg, 1, tablet, By Mouth, Daily, # 30 tablet, Refills 11, Tot. Refills 11, Maintenance, 12/03/22 9:01:00 EST, Route to Pharmacy Electronically, [facility]/pharmacy #[id number], 170, cm, 02/04/22 11:19:00 EDT, Height, 44.1, kg, 12/20/21 16:05:00 EST, Dry Weight Start Date: 12/03/22 Status: Ordered gabapentin 300 mg oral capsule 2, capsule, By Mouth, 3 times a day, # 180 capsule, Refills 5, Tot. Refills 5, Maintenance, 08/13/22 13:03:00 EDT, Route to Pharmacy Electronically, [facility]/pharmacy #[id number], 170, cm, 02/04/22 11:19:00 EDT, Height, 44.1, kg, 12/20/21 16:05:00 EST, Dry Weight Start Date: 08/13/22 Status: Ordered hydrOXYzine hydrochloride 10 mg oral tablet 3 tablet = 30 mg, By Mouth, 3 times a day, PRN NEEDED FOR ANXIETY, # 270 tablet, 3 Refills, Maintenance, 03/01/23 12:03:00 EDT, [facility]/pharmacy #[id number], 170, cm, 02/04/22 [...] 3 Refills, Maintenance, 12/16/22 9:12:00 EST, Capsule, [facility]/pharmacy #[id number], Partial fill upon [...] 06/14/23 Status: Ordered Spiriva HandiHaler 18 mcg Inhalation [...] 11 Refills, Maintenance, 12/03/22 9:00:00 EST, Capsule, [facility]/pharmacy #[id number], Partial fill upon [...] Team Personnel Name: Morgan Abbott MD Position: [facility] Renal MD Member Role: Lifetime Consulting Physician Address: Address: [address] [place] [address], [address] [place] [address] Name: Graciela Nunez MD Position: [facility] Physician - Primary Care Member Role: PCP Address: Address: [address] [place] [id number]- [place] Name: Maryam Camara RN Position: S [...] Care Nurse Name: Paty Ventura RN Position: [facility] RN Member Role: Primary Care Nurse Name: Ninfa Soto RN Position: [facility] RN Member Role: Primary Care Nurse Name: Romeo Reid MD Position: [facility] Renal MD Member Role: Lifetime Consulting Physician Address: Address: [address] [place] [address] [facility] [place] [address]- [place] Name: Olga Valladares RN Position: [facility] RN Member Role: Primary Care Nurse Name: Ruby Alexandre RN Position: [facility] RN Member Role: Primary Care Nurse Address: Address: [address] [place] [id number]- Name: Celso Lawson MD Position: [facility] Renal MD Member Role: Lifetime Consulting Physician Address: Address: [address] [place] [address] [facility] [place] [address]- Name: Alyssa Camacho RN Position: S RN Member Role: Primary Care Nurse Name: Keely Pascal RN Position: S RN Member Role: Primary Care Nurse Name: Chloe Fisher LPN Position: S RN Member Role: Primary Care Nurse Care Team Related Persons Name: LAZARUS OSBORNE Address: [place] [address] Name: KAVON NICOLE Address: [address] [place] [address] Name: PT, STATES NONE
--- OUTSIDE RECORDS SUMMARY | 2023-08-21 08:38 | XMS_ITS | Continuity of Care Document ---
Author Name Unknown Organization [facility] Address [address] [place] [address]- Care Team Providers Care Lock Master Name Role Phone Graciela Nunez MD Primary Care Physician Encounter [facility] Date(s): 07/01/23 - 07/31/23 [facility] [address] [place], [place] [address] Allergies, [...] influenza virus vaccine, inactivated 3 09/19/15 Gi iek influenza virus vaccine, inactivated 09/15/13 Doug rded influenza virus vaccine, inactivated 09/08/12 Doug rded influenza virus vaccine, inactivated 4 10/29/11 Re corded SARS-CoV-2 (COVID-19) mRNA BNT-162b2 vac 08/26/21 Recorded SARS-CoV-2 (COVID-19) mRNA BNT-162b2 vac 01/28/21 Recorded SARS-CoV-2 (COVID-19) mRNA BNT-162b2 vac 01/07/21 Recorded tetanus/diphtheria/pertussis, acel(Tdap) 5 04/19/12 Recorded pneumococcal 23-valent vaccine 6 07/31/10 Recorded 1Result Comment: [id number] given w/out incident 2Location History: [place], [place] 3Admin Note: done @ dr jones office 4Location History: [facility] 5Location History: [facility] 6Location History: [facility] Medications acetaminophen 325 mg oral tablet [...] 05/25/23 15:31:00 EDT, Route to Pharmacy Electronically, [facility]/pharmacy #[id number], Partial fill upon patient request if the [...] 9:01:00 EST, Route to Pharmacy Electronically, [facility]/pharmacy #[id number], 170, cm, 02/04/22 11:19:00 EDT, Height, 44.1, kg, 12/20/21 16:05:00 EST, Dry Weight Start Date: 12/03/22 Status: Ordered gabapentin 300 mg oral capsule 2, capsule, By Mouth, 3 times a day, # 180 capsule, Refills 5, Tot. Refills 5, Maintenance, 08/13/22 13:03:00 EDT, Route to Pharmacy Electronically, [facility]/pharmacy #[id number], 170, cm, 02/04/22 11:19:00 EDT, Height, 44.1, kg, 12/20/21 16:05:00 EST, Dry Weight Start Date: 08/13/22 Status: Ordered hydrOXYzine hydrochloride 10 mg oral tablet 3 tablet = 30 mg, By Mouth, 3 times a day, PRN NEEDED FOR ANXIETY, # 270 tablet, 3 Refills, Maintenance, 03/01/23 12:03:00 EDT, [facility]/pharmacy #[id number], 170, cm, 02/04/22 11:19:00 EDT, [...] Refills, Maintenance, 12/16/22 9:12:00 EST, Capsule, [facility]/pharmacy #[id number], Partial fill upon patient request [...] capsule, 0 Refills, Maintenance, 06/24/23 19:50:00 EDT,[facility]/pharmacy #[id number], Partial fill upon patient request [...] Care Nurse Name: Belgica Mckeon RN Position: [facility] RN Member Role: Primary Care Nurse Name: Morgan Abbott MD Position: [facility] Renal MD Member Role: Lifetime Consulting Physician Address: Address: [address] [place] [address] Name: Bernice Molina RN Position: [facility] RN Member Role: Primary Care Nurse Name: Graciela Nunez MD Position: [facility] Physician - Primary Care Member Role: PCP Address: Address: [address] [place] [address]- Name: Maryam Camara RN Position: [facility] RN Member Role: Primary Care Nurse Name: Josemanuel Hawkins RN Position: [facility] RN Member Role: Primary Care Nurse Name: Milana Garland RN Position: [facility] RN Member Role: Primary Care Nurse Name: Mckay Esquivel MD Position: [facility] Renal MD Member Role: Lifetime Consulting Physician Address: Address: [address] [place] [address], [place] [address]- Name: Rylie Francois RN Position: S RN Member Role: Primary Care Nurse Name: Luisa Storey RN Position: S RN Member Role: Primary Care Nurse Name: Elizabeth Ferris RN Position: [facility] RN Member Role: Primary Care Nurse Name: Alyssa Johnson RN Position: S RN Member Role: Primary Care Nurse Name: Anabela Beavers Position: S RN Member Role: Primary Care Nurse Name: Tracey Chavez Position: S RN Member Role: Primary Care Nurse Name: Sandy Alba RN Position: S RN Member Role: Primary Care Nurse Name: Jose Sebastian RN Position: [facility] RN Member Role: Primary Care Nurse Name: Angelica Montemayor RN Position: S RN Member Role: Primary Care Nurse Name: Paty Ventura RN Position: [facility] RN Member Role: Primary Care Nurse Name: Ninfa Soto RN Position: [facility] RN Member Role: Primary Care Nurse Name: Romeo Reid MD Position: [facility] Renal MD Member Role: Lifetime Consulting Physician Address: Address: [address] [place] [address] [facility] [place], [address] Name: Olga Valladares RN Position: [facility] RN Member Role: Primary Care Nurse Name: Karyn Quezada RN Position: [facility] RN Member Role: Primary Care Nurse Name: Ruby Alexandre RN Position: [facility] RN Member Role: Primary Care Nurse Address: Address: [address] [place] [address]- Name: Celso Lawson MD Position: [facility] Renal MD Member Role: Lifetime Consulting Physician Address: Address: [address] [place] [address] [facility] [address] Name: Alyssa Camacho RN Position: S RN Member Role: Primary Care Nurse Name: Keely Pascal RN Position: S RN Member Role: Primary Care Nurse Name: Chloe Fisher LPN Position: S RN Member Role: Primary Care Nurse Care Team Related Persons Name: LAZARUS OSBORNE Address: [place] [address] Name: KAVON NICOLE Address: [address] [place] [address] Name: PT, STATES NONE
--- OUTSIDE RECORDS SUMMARY | 2023-08-21 08:38 | XMS_ITS | Continuity of Care Document ---
Author Name Unknown Organization [facility] Address [address] [place] [address]- Care Team Providers Care Pct Name Role Phone Mayra ORTIZ, Graciela Lares Primary Care Physician [phone] Encounter [facility] Date(s): 03/28/21 - 04/27/21 [facility] [address] [place], [place] [address] Allergies, Adverse Reactions, Alerts Substance Reaction [...] 23-valent vaccine 5 07/31/10 Recorded 1Location History: [place], [place] 2Admin Note: done @ dr jones office 3Location History: [facility] 4Location History: [facility] 5Location History: [facility] Medications alendronate 70 mg [...] Replace Required Details, Route to Pharmacy Electronically, [facility] #[id number]... Start Date: 01/31/20 Status: Ordered folic acid 1 mg oral tablet 1 mg, 1, tablet, By Mouth, Daily, # 30 tablet, Refills 5, Tot. Refills 5, Maintenance, 01/31/21 16:35:00 EDT, Route to Pharmacy Electronically, [facility] #[id number], 170, cm, 10/02/20 10:06:00EST, Height, 56.3, kg, 11/24/19 22:58:00 EST, Dry W... Start Date: 01/31/21 Status: Ordered furosemide 20 mg oral tablet 1, tablet, By Mouth, Daily, PRN, # 90 tablet, Refills 0, Tot. Refills 0, Maintenance, NEEDED FORLEG SWELLING, 04/19/20 15:50:00 EDT, Route to Pharmacy Electronically, [facility] #[id number],170, cm, 12/13/19 13:51:00 EST, Height, 56.3, kg, 0... Start Date: 04/19/20 Status: Ordered gabapentin 300 mg oral capsule 2, capsule, By Mouth, 3 times a day, # 180 capsule, Refills 1, Tot. Refills 0, Maintenance, 04/22/21 12:52:00 EDT, Route to Pharmacy Electronically, [facility] #[id number], 170, cm, 10/02/20 10:06:00 EST, Height, 56.3, kg, 11/24/19 22:58:00 EST,... Start Date: 04/22/21 Status: Ordered Home Blood Pressure Monitor See Instructions, # 1 Unknown, Maintenance, DX: Bradycardia, R00.1 low heart rate USE DAILY LIFETIME USE HEIGHT 170CM WEIGHT 56KG, 12/13/19 13:56:00 EST, Compound Start Date: 12/13/19 Status: Ordered LORazepam 0.5 mg oral tablet 1 tablet = 0.5 mg, By Mouth, 2 times a day, PRN as needed for anxiety, for 14 days, # 28 tablet, 0 Refills, Acute 04/29/21 11:50:00 EDT, 04/15/21 11:50:00 EDT, Tablet, [facility] #[id number], Partial fill upon patient request if the prescription... Start Date: 04/15/21 Stop Date: 04/29/21 Status: Ordered Metoprolol Succinate ER 25 mg oral tablet, extended release 1 tablet = 25 mg, By Mouth, Daily, # 90 tablet, 1 Refills, Maintenance, 01/29/20 10:50:00 EDT, XL Tablet, [facility] #[id number], 170, cm, 12/13/19 13:51:00 EST, Height, 56.3, [...] 3 Refills, Maintenance, 03/13/21 13:26:00 EDT, Tablet, [facility] #[id number], 170, cm, 10/02/20 10:06:00 EST, Height, 56.3, [...] 02/18/21 16:23:00 EDT, Route to Pharmacy Electronically, [facility] #[id number], Partial fill upon patient request if... Start Date: 02/18/21 Stop Date: 03/04/21 Status: Ordered Tylenol 8 HR Arthritis Pain 650 mg oral tablet, extended release 1 tablet = 650 mg, By Mouth, Every 8 hours, PRN Pain , Moderate, # 100 tablet, 1 Refills, Maintenance, 02/26/21 15:47:00 EDT, ER Tablet, [facility] #[id number], Partial fill upon patient requestif the prescription is for a schedule II opioid ivonne... Start Date: 02/26/21 Status: Ordered Ventolin HFA 108 mcg/inh inhalation aerosol with adapter 2 puffs, Inhalation, 4 times a day, PRN for wheezing, # 18 Gm, 6 Refills, Maintenance, 06/17/20 16:11:00 EDT, Aerosol, [id number], 170, cm, 12/13/19 13:51:00 EST, Height, 56.3, [...] 01/06/21 14:35:00 EST, Route to Pharmacy Electronically, [facility] #[id number], 170, cm, 10/02/20 10:06:00 EST, Height, 56.3, kg, 11/24/19 22:58:00 EST, Dry Weight Start Date: 01/06/21 Status: Ordered Zofran 4 mg oral tablet 1 tablet = 4 mg, By Mouth, 3 times a day, PRN nausea, # 30 tablet, 0 Refills, Maintenance, :17:00 EDT, Tablet, [facility] #[id number], 170, cm, 12/13/19 13:51:00 EST, Height, 56.3, [...]
--- OUTSIDE RECORDS SUMMARY | 2023-08-21 08:38 | XMS_ITS | Continuity of Care Document ---
Author Name Unknown Organization [facility] Address [address] [place] [address]- Care Team Providers Care Curtains And Draperies Salesperson Name Role Phone Graciela Nunez MD Primary Care Physician [phone] Encounter [facility] Date(s): 05/03/23 - 06/02/23 [facility] [address] [place], [place] [address] Allergies, Adverse Reactions, Alerts Substance [...] 23-valent vaccine 6 07/31/10 Recorded 1Result Comment: [id number] given w/out incident 2Location History: [place], [place] 3Admin Note: done @ dr jones office 4Location History: [facility] 5Location History: [facility] 6Location History: [facility] Medications albuterol-ipratropium 3 [...] 05/25/23 15:31:00 EDT, Route to Pharmacy Electronically, [facility]/pharmacy #[id number], Partial fill upon patient request if the [...] A DAY NEEDED FOR CONSTIPATION. FILLED AT [facility] Start Date: 03/18/23 Status: Ordered folic acid 1 mg oral tablet 1 mg, 1, tablet, By Mouth, Daily, # 30 tablet, Refills 11, Tot. Refills 11, Maintenance, 12/03/22 9:01:00 EST, Route to Pharmacy Electronically, [facility]/pharmacy #[id number], 170, cm, 02/04/22 11:19:00 EDT, Height, 44.1, kg, 12/20/21 16:05:00 EST, Dry Weight Start Date: 12/03/22 Status: Ordered gabapentin 300 mg oral capsule 2, capsule, By Mouth, 3 times a day, # 180 capsule, Refills 5, Tot. Refills 5, Maintenance, 08/13/22 13:03:00 EDT, Route to Pharmacy Electronically, [facility]/pharmacy #[id number], 170, cm, 02/04/22 11:19:00 EDT, Height, 44.1, kg, 12/20/21 16:05:00 EST, Dry Weight Start Date: 08/13/22 Status: Ordered hydrOXYzine hydrochloride 10 mg oral tablet 3 tablet = 30 mg, By Mouth, 3 times a day, PRN NEEDED FOR ANXIETY, # 270 tablet, 3 Refills, Maintenance, 03/01/23 12:03:00 EDT, [facility]/pharmacy #[id number], 170, cm, 02/04/22 11:19:00 EDT, [...] 3 Refills, Maintenance, 12/16/22 9:12:00 EST, Capsule, [facility]/pharmacy #[id number], Partial fill upon patient request [...] Team Personnel Name: Morgan Abbott MD Position: [facility] Renal MD Member Role: Lifetime Consulting Physician Address: Address: [address] [place] [address], [address] Name: Graciela Nunez MD Position: [facility] Physician - Primary Care Member Role: PCP Address: Address: [address] [place] [address] Name: Maryam Camara RN Position: [facility] RN Member Role: Primary Care [...] Care Nurse Name: Romeo Reid MD Position: [facility] Renal MD Member Role: Lifetime Consulting Physician Address: Address: [address] [place] [address] [address] [facility] [address] Name: Olga Valladares RN Position: S RN Member Role: Primary Care Nurse Name: Ruby Alexandre RN Position: S RN Member Role: Primary Care Nurse Address: Address: [address] [place] [address]- Name: Celso Lawson MD Position: [facility] Renal MD Member Role: Lifetime Consulting Physician Address: Address: [address] [place] [address] [facility] [place] [address]- Name: Alyssa Camacho RN Position: S RN Member Role: Primary Care Nurse Name: Keely Pascal RN Position: S RN Member Role: Primary Care Nurse Name: Chloe Fisher LPN Position: S RN Member Role: Primary Care Nurse Care Team Related Persons Name: LAZARUS OSBORNE Address: [place] [address] Name: KAVON NICOLE Address: [address] [place] [address] Name: PT, [facility] NONE
--- OUTSIDE RECORDS SUMMARY | 2023-08-21 08:38 | XMS_ITS | Continuity of Care Document ---
Author Name Unknown Organization [facility] Address [address] [place] [address]- Care Team Providers Care Clothing Manager Name Role Phone Mayra ORTIZ, Graciela Lares Primary Care Physician Encounter [facility] Date(s): 11/13/20 - 12/13/20 [facility] [address] [place], [place] [address] Allergies, Adverse Reactions, Alerts Substance [...] 23-valent vaccine 5 07/31/10 Recorded 1Location History: [place], [place] 2Admin Note: done @ dr jones office 3Location History: [facility] 4Location History: [facility] 5Location History: [facility] Medications alendronate 70 mg oral tablet [...] Replace Required Details, Route to Pharmacy Electronically, [facility] #[id number]... Start Date: 01/31/20 Status: Ordered folic acid 1 mg oral tablet 1 mg, 1, tablet, By Mouth, Daily, # 30 tablet, Refills 3, Tot. Refills 3, Maintenance, 01/18/20 10:43:00 EDT, Route to Pharmacy Electronically, [facility] #[id number], 170, cm, 12/13/19 13:51:00EST, Height, 56.3, kg, 11/24/19 22:58:00 EST, Dry W... Start Date: 01/18/20 Status: Ordered furosemide 20 mg oral tablet 1, tablet, By Mouth, Daily, PRN, # 90 tablet, Refills 0, Tot. Refills 0, Maintenance, NEEDED FORLEG SWELLING, 04/19/20 15:50:00 EDT, Route to Pharmacy Electronically, [facility] #[id number],170, cm, 12/13/19 13:51:00 EST, Height, 56.3, kg, 0... Start Date: 04/19/20 Status: Ordered gabapentin 300 mg oral capsule 600 mg, 2, capsule, By Mouth, 3 times a day, # 180 capsule, Refills 3, Tot. Refills 3, Maintenance,10/01/20 15:48:00 EST, Route to Pharmacy Electronically, [facility] #[id number], 170, cm, 12/13/19 13:51:00 EST, Height, 56.3, kg, 11/24/19 22:58:... Start Date: 10/01/20 Status: Ordered gabapentin 300 mg oral capsule See Instructions, TAKE 2 CAPSULES BY MOUTH three times per day, # 180 capsule, Refills 1, Instructions Replace Required Details, Route to Pharmacy Electronically, [facility] #[id number], 170, cm, 12/13/19 13:51:00 EST, Height, 56.3, [...] Refills, Maintenance, 01/29/20 10:50:00 EDT, XL Tablet, [facility] #[id number], 170, cm, 12/13/19 13:51:00 EST, Height, 56.3, [...] 3 Refills, Maintenance, 11/21/20 10:53:00 EST, Tablet, [facility] #[id number], 170, cm, 10/02/20 10:06:00 EST, Height, 56.3, [...] 6 Refills, Maintenance, 06/17/20 16:11:00 EDT, Aerosol, [facility] #[id number], 170, cm, 12/13/19 13:51:00 EST, Height, 56.3, kg, 11/24/19 22:58:00 EST, Dry Weight Start Date: 06/17/20 Stop Date: 01/13/21 Status: Ordered Ventolin HFA 108 mcg/inh inhalation aerosol with adapter 2 puffs, Inhalation, 4 times a day, PRN for wheezing, # 1 each, 0 Refills, Maintenance, 10/02/20 10:55:00 EST, Aerosol, [facility]/pharmacy #[id number], 170, cm, 10/02/20 10:06:00 EST, Height, 56.3, kg, 11/24/19 22:58:00 EST, Dry Weight Start Date: 10/02/20 Status: Ordered Vitamin B1 100 mg oral tablet 1, tablet, By Mouth, Daily, # 30 tablet, Refills 11, Tot. Refills 0, Acute, 12/18/19 14:10:00 EST, Route to Pharmacy Electronically, [facility] #[id number], 170, cm, 12/13/19 13:51:00 EST, Height, 56.3, kg, 11/24/19 22:58:00 EST, Dry Weight Start Date: 12/18/19 Status: Ordered Zofran 4 mg oral tablet 1 tablet = 4 mg, By Mouth, 3 times a day, PRN nausea, # 30 tablet, 0 Refills, Maintenance, :17:00 EDT, Tablet, [facility] #[id number], 170, cm, 12/13/19 13:51:00 EST, Height, 56.3, [...]
--- OUTSIDE RECORDS SUMMARY | 2023-08-21 08:38 | XMS_ITS | Continuity of Care Document ---
Author Name Unknown Organization [facility] Address [address] [place] [address]- Care Team Providers Care New Product Trainer Name Role Phone Graciela Nunez MD Primary Care Physician Encounter [facility] Date(s): 04/23/22 - 05/23/22 [facility] [address] [place], [place] [address] Allergies, Adverse [...] 23-valent vaccine 6 07/31/10 Recorded 1Result Comment: [id number] given w/out incident 2Location History: [place], [place] 3Admin Note: done @ dr jones office 4Location History: [facility] 5Location History: [facility] 6Location History: [facility] Medications aspirin 81 mg oral delayed [...] 3 Refills, Maintenance, 04/09/22 9:54:00 EDT, Tablet, [email or web address] #[id number], Partial fill upon patient request if the prescription is for a schedule II opioid drug., 1 tablet By Mouth Daily, 170, cm, 02/04... Start Date: 04/09/22 Status: Ordered busPIRone 10 mg oral tablet 10 mg, 1, tablet, By Mouth, 3 times a day, # 90 tablet, Refills 1, Tot. Refills 1, Maintenance, 04/28/22 16:25:00 EDT, Route to Pharmacy Electronically, [email or web address] #[id number], new dosage, 170, cm, 02/04/22 11:19:00 EDT, Height, 44.1, kg, ... Start Date: 04/28/22 Status: Ordered calcium (as carbonate)-vitamin D 500 mg-400 intl units oral tablet 1 tablet, By Mouth, 2 times a day, calcium 500/vitamin d 400 iu twice daily, # 60 tablet, 6 Refills, Maintenance, 02/11/22 10:15:00 EDT, Tablet, [email or web address] #[id number], Partial fill upon patientrequest if the prescription is for a schedule II op... Start Date: 02/11/22 Status: Ordered calcium-vitamin D 600 mg-400 intl units oral tablet 1 tablet, By Mouth, 2 times a day, # 60 tablet, 6 Refills, Maintenance, 05/15/22 16:21:00 EDT, Tablet, [email or web address] #[id number], Partial fill upon patient request if the prescription is for a schedule II opioid drug., 1 tablet By Mouth 2 times a da... Start Date: 05/15/22 Status: Ordered Colace sodium 100 mg oral capsule 100 mg, 1, capsule, By Mouth, 2 times a day, PRN, # 60 capsule, Refills 5, Tot. Refills 5, Maintenance, for constipation, 02/04/22 11:08:00 EDT, Route to Pharmacy Electronically, [email or web address]#[id number], prefers gel formulation, 170, cm, 02/04/22... Start Date: 02/04/22 Status: Ordered diltiazem 180 mg/24 hours oral capsule, extended release 180 mg, 1, capsule, By Mouth, Daily, # 30 capsule, Refills 0, Tot. Refills 0, Maintenance, 11/06/2209:09:00 EST, Route to Pharmacy Electronically, [facility] #[id number], Partial fill upon patient request if the prescription is for a schedule II... Start Date: 11/06/21 Status: Ordered Flonase 50 mcg/inh nasal spray 1 sprays, Nares, Both, Daily in AM, # 16 Gm, 4 Refills, Maintenance, 12/03/21 12:34:00 EST, [place], [facility] #[id number], Partial fill upon patient request if the prescription is for a scheduleII opioid drug., 1 sprays Nares, Both Daily in AM,... Start Date: 12/03/21 Status: Ordered folic acid 1 mg oral tablet 1 mg, 1, tablet, By Mouth, Daily, # 30 tablet, Refills 11, Tot. Refills 11, Maintenance, 02/25/22 16:15:00 EDT, Route to Pharmacy Electronically, [email or web address] #[id number], 170, cm, 02/04/22 11:19:00 EDT, Height, 44.1, [...] 02/09/22 15:13:00 EDT, Route to Pharmacy Electronically, [email or web address] #[id number], 170, cm, 02/04/22 11:19:00 EDT, Height, 44.1, kg, 12/20/21 16:05:00 EST,... Start Date: 02/09/22 Status: Ordered Hair, Skin & Nails 5 mg oral capsule 1 capsule = 5 mg, By Mouth, Daily, # 90 capsule, 3 Refills, Maintenance, 02/19/22 12:29:00 EDT, [facility] #[id number], Partial fill upon patient request if the prescription is for a schedule IIopioid drug., 1 capsule By Mouth Daily, 170, cm, 04... Start Date: 02/19/22 Status: Ordered hydrOXYzine hydrochloride 10 mg oral tablet 1-2 tablet, By Mouth, 2 times a day, PRN as needed for anxiety, # 60 tablet, 3 Refills, Maintenance, 05/18/22 14:56:00 EDT, [facility]/pharmacy #[id number], Partial fill upon patient request if the prescription is for a schedule II opioid drug., 170, cm, 02/04/22... Start Date: 05/18/22 Status: Ordered lactulose 10 gm/15 ml oral syrup 15 mL = 10 Gm, By Mouth, Every 72 hours, PRN as needed for constipation, # 300 mL, 5 Refills, Maintenance, 03/19/22 14:45:00 EDT, Syrup, [email or web address] #[id number], Partial fill upon patient requestif the prescription is for a schedule II opioid ivonne... Start Date: 03/19/22 Status: Ordered LORazepam 0.5 mg oral tablet 1 tablet = 0.5 mg, By Mouth, 3 times a day, # 60 tablet, 3 Refills, Maintenance, 04/28/22 16:24:00 EDT, Tablet, [email or web address] #[id number], Partial fill upon patient request if the [...] 10/22/21 15:09:00 EST, Route to Pharmacy Electronically, [email or web address] #[id number] Tablet, Partial fill upon patient request... Start [...] Refills, Maintenance, 02/26/21 15:47:00 EDT, ER Tablet, [email or web address] #[id number], Partial fill upon patient requestif the prescription is for a schedule II opioid ivonne... Start Date: 02/26/21 Status: Ordered Ventolin HFA 108 mcg/inh inhalation aerosol with adapter 2 puffs, Inhalation, 4 times a day, PRN for wheezing, # 1 each, 0 Refills, Maintenance, 10/02/20 10:55:00 EST, Aerosol, [facility]/pharmacy #[id number], 170, cm, 10/02/20 10:06:00 EST, Height, 56.3, kg, 11/24/19 22:58:00 EST, Dry Weight Start Date: 10/02/20 Status: Ordered Vitamin D3 1000 intl units oral capsule 1 capsule = 25 mcg, By Mouth, Daily, # 30 capsule, 11 Refills, Maintenance, 12/02/21 10:55:00 EST, Capsule, [email or web address] #[id number], Partial fill upon patient request if the [...]
--- OUTSIDE RECORDS SUMMARY | 2023-08-21 08:38 | XMS_ITS | Continuity of Care Document ---
Author Name Unknown Organization [facility] Address [address] [place] [address]- Care Team Providers Care Acid Regenerator Name Role Phone Graciela Nunez MD Primary Care Physician [place] [facility] [place] 12/02/21 - 01/01/22 [facility] [address] [place], [place] [address] Allergies, Adverse Reactions, Alerts Substance [...] 23-valent vaccine 6 07/31/10 Recorded 1Result Comment: [id number] given w/out incident 2Location History: [place], [place] 3Admin Note: done @ dr jones office 4Location History: [facility] 5Location History: [facility] 6Location History: [facility] Medications aspirin 81 [...] 10/22/21 15:09:00 EST, Route to Pharmacy Electronically, [facility]#[id number], Partial fill upon patient request if the pr... Start Date: 10/22/21 Status: Ordered diltiazem 180 mg/24 hours oral capsule, extended release 180 mg, 1, capsule, By Mouth, Daily, # 30 capsule, Refills 0, Tot. Refills 0, Maintenance, 11/06/2209:09:00 EST, Route to Pharmacy Electronically, [facility] #[id number], Partial fill upon patient request if the prescription is for a schedule II... Start Date: 11/06/21 Status: Ordered Flonase 50 mcg/inh nasal spray 1 sprays, Nares, Both, Daily in AM, # 16 Gm, 4 Refills, Maintenance, 12/03/21 12:34:00 EST, [place], [facility] #[id number], Partial fill upon patient request if the prescription is for a scheduleII opioid drug., 1 sprays Nares, Both Daily in AM,... Start Date: 12/03/21 Status: Ordered folic acid 1 mg oral tablet 1 mg, 1, tablet, By Mouth, Daily, # 30 tablet, Refills 5, Tot. Refills 5, Maintenance, 01/31/21 16:35:00 EDT, Route to Pharmacy Electronically, [facility] #[id number], 170, cm, 10/02/20 10:06:00EST, Height, 56.3, kg, [...] 08/26/21 10:50:00 EDT, Route to Pharmacy Electronically, [facility] #[id number], 162.56, cm, 08/22/21 2:36:00 EDT, Height, 52.65, kg, 08/22/21 2:36:00 EDT... Start Date: 08/26/21 Status: Ordered lactulose 10 gm/15 ml oral syrup 15 mL = 10 Gm, By Mouth, Daily, PRN as needed for constipation, for 10 days, # 150 mL, 0 Refills, Acute 01/04/22 10:44:00 EST, 12/25/21 10:44:00 EST, Syrup, [facility] #[id number], Partial fill upon patient request if the [...] Acute 01/10/22 10:26:00EST, 12/17/21 10:18:00 EST, Suspension, [facility] #[id number], Partial fill upon patient request if the prescription is for a schedule II opioid... Start Date: 12/17/21 Stop Date: 01/10/22 Status: Ordered nicotine 21 mg/24 hr transdermal film, extended release 1 patch, Topically, Daily, for 6 week(s), # 42 patch, 0 Refills, Acute 02/06/22 16:15:00 EDT, 12/26/21 16:15:00 EST, Patch, [facility] #[id number], Partial fill upon patient request if the prescription is for a schedule II opioid drug., 1 patch T... Start Date: 12/26/21 Stop Date: 02/06/22 Status: Ordered nicotine 7 mg/24 hr transdermal film, extended release 1 patch, Topically, Daily, for 14 days, # 14 patch, 0 Refills, Acute 01/05/22 14:10:00 EST, 12/22/21 14:10:00 EST, Patch, [facility] #[id number], Partial fill upon patient request if the [...] 0 Refills, Maintenance, 12/22/21 14:25:00 EST, Tablet, [facility] #[id number], Partial fill upon patient requ... Start Date: [...] 10/22/21 15:09:00 EST, Route to Pharmacy Electronically, [facility] #[id number] Tablet, Partial fill upon patient request... Start [...] Refills, Maintenance, 02/26/21 15:47:00 EDT, ER Tablet, [facility] #[id number], Partial fill upon patient requestif the prescription is for a schedule II opioid ivonne... Start Date: 02/26/21 Status: Ordered Ventolin HFA 108 mcg/inh inhalation aerosol with adapter 2 puffs, Inhalation, 4 times a day, PRN for wheezing, # 1 each, 0 Refills, Maintenance, 10/02/20 10:55:00 EST, Aerosol, [facility]/pharmacy #[id number], 170, cm, 10/02/20 10:06:00 EST, Height, 56.3, kg, 11/24/19 22:58:00 EST, Dry Weight Start Date: 10/02/20 Status: Ordered Vitamin D3 1000 intl units oral capsule 1 capsule = 25 mcg, By Mouth, Daily, # 30 capsule, 11 Refills, Maintenance, 12/02/21 10:55:00 EST, Capsule, [facility] #[id number], Partial fill upon patient request if the [...]
--- OUTSIDE RECORDS SUMMARY | 2023-08-21 08:38 | XMS_ITS | Continuity of Care Document ---
Author Name Unknown Organization [facility] Address [address] [place] [address]- Care Team Providers Care Hearing Healthcare Practitioner Name Role Phone Graciela Nunez MD Primary Care Physician [place] [facility] [place]s): 06/16/21 - 07/16/21 [facility] [address] [place], [place] [address] Allergies, Adverse Reactions, Alerts [...] 23-valent vaccine 5 07/31/10 Recorded 1Location History: [place], [place] 2Admin Note: done @ dr jones office 3Location History: [facility] 4Location History: [facility] [...] Replace Required Details, Route to Pharmacy Electronically, [facility] #[id number]... Start Date: 01/31/20 Status: Ordered folic acid 1 mg oral tablet 1 mg, 1, tablet, By Mouth, Daily, # 30 tablet, Refills 5, Tot. Refills 5, Maintenance, 01/31/21 16:35:00 EDT, Route to Pharmacy Electronically, [facility] #[id number], 170, cm, 10/02/20 10:06:00EST, Height, 56.3, kg, 11/24/19 22:58:00 EST, Dry W... Start Date: 01/31/21 Status: Ordered furosemide 20 mg oral tablet 1, tablet, By Mouth, Daily, PRN, # 90 tablet, Refills 0, Tot. Refills 0, Maintenance, NEEDED FORLEG SWELLING, 04/19/20 15:50:00 EDT, Route to Pharmacy Electronically, [facility] #[id number],170, cm, 12/13/19 13:51:00 EST, Height, 56.3, kg, 0... Start Date: 04/19/20 Status: Ordered gabapentin 300 mg oral capsule 2, capsule, By Mouth, 3 times a day, # 180 capsule, Refills 1, Tot. Refills 0, Maintenance, 04/22/21 12:52:00 EDT, Route to Pharmacy Electronically, [facility] #[id number], 170, cm, 10/02/20 10:06:00 EST, Height, 56.3, kg, 11/24/19 22:58:00 EST,... Start Date: 04/22/21 Status: Ordered Home Blood Pressure Monitor See Instructions, # 1 Unknown, Maintenance, DX: Bradycardia, R00.1 low heart rate USE DAILY LIFETIME USE HEIGHT 170CM WEIGHT 56KG, 12/13/19 13:56:00 EST, Compound Start Date: 12/13/19 Status: Ordered LORazepam 0.5 mg oral tablet See Instructions, TAKE 1 TABLET BY MOUTH TWICE DAILY FOR 7 DAYS NEEDED FOR ANXIETY PLEASE GET LABS, # 14 tablet, 1 Refills, Maintenance, 07/01/21 22:21:00 EDT, [facility] #[id number], 170, cm, 10/02/20 10:06:00 EST, Height, 56.3, kg, 11/24/19... Start Date: 07/01/21 Status: Ordered LORazepam 0.5 mg oral tablet 1 tablet = 0.5 mg, By Mouth, 2 times a day, # 28 tablet, 2 Refills, Maintenance, 07/16/21 16:58:00 EDT, [facility] #[id number], 170, cm, 10/02/20 10:06:00 EST, Height, 56.3, kg, 11/24/19 22:58:00 EST, Dry Weight Start Date: 07/16/21 Status: Ordered Metoprolol Succinate ER 25 mg oral tablet, extended release 1 tablet = 25 mg, By Mouth, Daily, # 90 tablet, 1 Refills, Maintenance, 01/29/20 10:50:00 EDT, XL Tablet, [facility] #[id number], 170, cm, 12/13/19 13:51:00 EST, Height, 56.3, [...] 3 Refills, Maintenance, 03/13/21 13:26:00 EDT, Tablet, [facility] #[id number], 170, cm, 10/02/20 10:06:00 EST, Height, 56.3, [...] 02/18/21 16:23:00 EDT, Route to Pharmacy Electronically, [facility] #[id number], Partial fill upon patient request if... Start Date: 02/18/21 Stop Date: 03/04/21 Status: Ordered Tylenol 8 HR Arthritis Pain 650 mg oral tablet, extended release 1 tablet = 650 mg, By Mouth, Every 8 hours, PRN Pain , Moderate, # 100 tablet, 1 Refills, Maintenance, 02/26/21 15:47:00 EDT, ER Tablet, [facility] #[id number], Partial fill upon patient requestif the prescription is for a schedule II opioid ivonne... Start Date: 02/26/21 Status: Ordered Ventolin HFA 108 mcg/inh inhalation aerosol with adapter 2 puffs, Inhalation, 4 times a day, PRN for wheezing, # 18 Gm, 6 Refills, Maintenance, 06/17/20 16:11:00 EDT, Aerosol, [facility] #[id number], 170, cm, 12/13/19 13:51:00 EST, Height, 56.3, [...] 01/06/21 14:35:00 EST, Route to Pharmacy Electronically, [facility] #[id number], 170, cm, 10/02/20 10:06:00 EST, Height, 56.3, kg, 11/24/19 22:58:00 EST, Dry Weight Start Date: 01/06/21 Status: Ordered Zofran 4 mg oral tablet 1 tablet = 4 mg, By Mouth, 3 times a day, PRN nausea, # 30 tablet, 0 Refills, Maintenance, :17:00 EDT, Tablet, [facility] #[id number], 170, cm, 12/13/19 13:51:00 EST, Height, 56.3, [...]
--- OUTSIDE RECORDS SUMMARY | 2023-08-21 08:38 | XMS_ITS | Continuity of Care Document ---
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 Name Role Phone Graciela Nunez MD Primary Care Physician [place] [facility] [place](s): 04/24/20 - 06/09/20 [facility] [address] [place] [address]- [facility] Attending Physician: Doni Naidu MD Admitting Physician: Doni Naidu MD Referring Physician: Graciela Nunez MD Allergies, [...] 23-valent vaccine 5 07/31/10 Recorded 1Location History: [place], [place] 2Admin Note: done @ dr jones office 3Location History: [facility] 4Location History: [facility] 5Location History: [facility] Medications alendronate 70 mg oral tablet 0 Refills, Maintenance, 07/13/19 10:24:47 EDT Start Date: 07/13/19 Status: Ordered aspirin 81 mg oral tablet 1 tablet = 81 mg, By Mouth, Daily, # 30 tablet, 0 Refills, Maintenance, 04/16/16 9:15:50, Tablet Start Date: 6/16/16 Status: Ordered Bed Wedge Bed Wedge, See [...] Replace Required Details, Route to Pharmacy Electronically, [facility] #[id number]... Start Date: 01/31/20 Status: Ordered erythromycin [...] 01/18/20 10:43:00 EDT, Route to Pharmacy Electronically, [facility] #[id number], 170, cm, 12/13/19 13:51:00EST, Height, 56.3, kg, 11/24/19 22:58:00 EST, Dry W... Start Date: 01/18/20 Status: Ordered furosemide 20 mg oral tablet 1, tablet, By Mouth, Daily, PRN, # 90 tablet, Refills 0, Tot. Refills 0, Maintenance, NEEDED FORLEG SWELLING, 04/19/20 15:50:00 EDT, Route to Pharmacy Electronically, [facility] #[id number],170, cm, 12/13/19 13:51:00 EST, Height, 56.3, kg, 0... Start Date: 04/19/20 Status: Ordered gabapentin 300 mg oral capsule See Instructions, TAKE 2 CAPSULES BY MOUTH EVERY MORNING, 1 CAPSULE MID DAY AND 2 CAPSULES EVERY NIGHT AT BEDTIME, # 150 capsule, Refills 1, Maintenance, Instructions Replace Required Details, Route to Pharmacy Electronically, [facility] #[id number]... Start Date: 01/19/20 Status: Ordered Home [...] Refills, Maintenance, 01/29/20 10:50:00 EDT, XL Tablet, [facility] #[id number], 170, cm, 12/13/19 13:51:00 EST, Height, 56.3, [...] 12/18/19 14:10:00 EST, Route to Pharmacy Electronically, [facility] #[id number], 170, cm, 12/13/19 13:51:00 EST, Height, 56.3, [...]
--- OUTSIDE RECORDS SUMMARY | 2023-08-21 08:38 | XMS_ITS | Continuity of Care Document ---
Author Name Unknown Organization [facility] Address [address] [place] [address]- Care Team Providers Care Soil Technician Name Role Phone Graciela Nunez MD Primary Care Physician [place] [facility] [place] - 12/10/21 [facility] [address] [place], [place] [address] Allergies, Adverse Reactions, Alerts Substance [...] 23-valent vaccine 6 07/31/10 Recorded 1Result Comment: [id number] given w/out incident 2Location History: [place], [place] 3Admin Note: done @ dr jones office 4Location History: [facility] 5Location History: [facility] 6Location History: [facility] Medications aspirin 81 mg oral [...] 10/22/21 15:09:00 EST, Route to Pharmacy Electronically, [facility][id number], Partial fill upon patient request if the pr... Start Date: 10/22/21 Status: Ordered diltiazem 180 mg/24 hours oral capsule, extended release 180 mg, 1, capsule, By Mouth, Daily, # 30 capsule, Refills 0, Tot. Refills 0, Maintenance, 11/06/2209:09:00 EST, Route to Pharmacy Electronically, [facility] #[id number], Partial fill upon patient request if the prescription is for a schedule II... Start Date: 11/06/21 Status: Ordered ENSURE SUPPLEMENTS ENSURE SUPPLEMENTS, See Instructions, # 120 Unknown, Refills 11, Tot. Refills 11, Maintenance, USE FOUR TIMES DAILY LIFETIME USE DX:MALNUTRITION E46 WEIGHT 46KG HEIGHT 173CM, 11/18/21 16:36:00 EST, Supply Start Date: 11/18/21 Status: Ordered Flonase 50 mcg/inh nasal spray 1 sprays, Nares, Both, Daily in AM, # 16 Gm, 4 Refills, Maintenance, 12/03/21 12:34:00 EST, [place], [facility] #[id number], Partial fill upon patient request if the prescription is for a scheduleII opioid drug., 1 sprays Nares, Both Daily in AM,... Start Date: 12/03/21 Status: Ordered folic acid 1 mg oral tablet 1 mg, 1, tablet, By Mouth, Daily, # 30 tablet, Refills 5, Tot. Refills 5, Maintenance, 01/31/21 16:35:00 EDT, Route to Pharmacy Electronically, [facility] #[id number], 170, cm, 10/02/20 10:06:00EST, Height, 56.3, kg, [...] 08/26/21 10:50:00 EDT, Route to Pharmacy Electronically, [facility] #[id number], 162.56, cm, 08/22/21 2:36:00 EDT, Height, 52.65, kg, 08/22/21 2:36:00 EDT... Start Date: 08/26/21 Status: Ordered LORazepam 0.5 mg oral tablet 1 tablet = 0.5 mg, By Mouth, 2 times a day, PRN as needed for anxiety, # 28 tablet, 1 Refills, Maintenance, 12/02/21 10:54:00 EST, [facility] #[id number], 173, cm, 11/06/21 7:58:00 EST, Height, 46.2, kg, 10/29/21 15:33:00 EST, Dry Weight Start Date: 12/02/21 Status: Ordered MiraLax oral powder for reconstitution = 17 Gm, By Mouth, Daily, PRN Constipation, dissolve in water before taking, # 527 Gm, 0 Refills, Maintenance, 10/22/21 15:11:00 EST, REC Powder, [facility] #[id number], Partial fill upon patient request if the prescription is for a schedule II o... Start Date: 10/22/21 Status: Ordered multivitamin Multiple Vitamins oral tablet 1 tablet, By Mouth, Daily, # 30 tablet, 11 Refills, Maintenance, 11/26/21 13:34:00 EST, Tablet, [facility] #[id number], Partial fill upon patient request if the prescription is for a schedule IIopioid drug., 1 tablet By Mouth Daily, 173, cm, .. Start Date: 11/26/21 Status: Ordered pantoprazole 40 mg oral delayed release tablet 1 tablet = 40 mg, By Mouth, 2 times a day, # 60 tablet, 0 Refills, Maintenance, 12/04/21 14:04:00 EST, [facility] Tablet, 173, cm, 11/06/21 7:58:00 EST, Height, 46.2, kg, 10/29/21 15:33:00 EST, Dry Weight Start Date: 12/04/21 Status: Ordered predniSONE 5 mg oral tablet [...] 3 Refills, Maintenance, 03/13/21 13:26:00 EDT, Tablet, [facility] #[id number], 170, cm, 10/02/20 10:06:00 EST, Height, 56.3, kg, 11/24/19 22:58:00 EST, Dry Weight Start Date: 03/13/21 Status: Ordered Senna 8.6 mg oral tablet 17.2 mg, 2, tablet, By Mouth, Daily at bedtime, PRN, # 100 tablet, Refills 0, Tot. Refills 0, Maintenance, for constipation, 10/22/21 15:09:00 EST, Route to Pharmacy Electronically, [facility] #[id number] Tablet, Partial fill upon patient request... Start [...] Refills, Maintenance, 02/26/21 15:47:00 EDT, ER Tablet, [facility] #[id number], Partial fill upon patient requestif the prescription is for a schedule II opioid ivonne... Start Date: 02/26/21 Status: Ordered Ventolin HFA 108 mcg/inh inhalation aerosol with adapter 2 puffs, Inhalation, 4 times a day, PRN for wheezing, # 1 each, 0 Refills, Maintenance, 10/02/20 10:55:00 EST, Aerosol, [facility]/pharmacy #4471, 170, cm, 10/02/20 10:06:00 EST, Height, 56.3, kg, 11/24/19 22:58:00 EST, Dry Weight Start Date: 10/02/20 Status: Ordered Vitamin D3 1000 intl units oral capsule 1 capsule = 25 mcg, By Mouth, Daily, # 30 capsule, 11 Refills, Maintenance, 12/02/21 10:55:00 EST, Capsule, [facility] #[id number], Partial fill upon patient request if the prescription is for aschedule II opioid drug., 173, cm, 11/06/21 7:58:00... Start Date: 12/02/21 Status: Ordered WEEKLY MEDICATION PILL BOX WEEKLY [...]
--- OUTSIDE RECORDS SUMMARY | 2023-08-21 08:38 | XMS_ITS | Continuity of Care Document ---
Author Name Unknown Organization [facility] Address [address] [place] [address]- Care Team Providers Care Vp Lab Name Role Phone Graciela Nunez MD Primary Care Physician [phone] Encounter [facility] [place] Date(s): 11/06/21 - 12/06/21 [facility] [address] [place], [place] [address] Allergies, Adverse Reactions, Alerts [...] 23-valent vaccine 6 07/31/10 Recorded 1Result Comment: [id number] given w/out incident 2Location History: [place], [place] 3Admin Note: done @ dr jones office 4Location History: [facility] 5Location History: [facility] 6Location History: [facility] Medications aspirin 81 mg oral [...] 10/22/21 15:09:00 EST, Route to Pharmacy Electronically, [facility][id number], Partial fill upon patient request if the pr... Start Date: 10/22/21 Status: Ordered diltiazem 180 mg/24 hours oral capsule, extended release 180 mg, 1, capsule, By Mouth, Daily, # 30 capsule, Refills 0, Tot. Refills 0, Maintenance, 11/06/2209:09:00 EST, Route to Pharmacy Electronically, [facility] #[id number], Partial fill upon patient request if the [...] Gm, 4 Refills, Maintenance, 12/03/21 12:34:00 EST, [place], [facility] #[id number], Partial fill upon patient request if the prescription is for a scheduleII opioid drug., 1 sprays Nares, Both Daily in AM,... Start Date: 12/03/21 Status: Ordered folic acid 1 mg oral tablet 1 mg, 1, tablet, By Mouth, Daily, # 30 tablet, Refills 5, Tot. Refills 5, Maintenance, 01/31/21 16:35:00 EDT, Route to Pharmacy Electronically, [facility] #[id number], 170, cm, 10/02/20 10:06:00EST, Height, 56.3, kg, [...] 08/26/21 10:50:00 EDT, Route to Pharmacy Electronically, [facility] #[id number], 162.56, cm, 08/22/21 2:36:00 EDT, Height, 52.65, kg, 08/22/21 2:36:00 EDT... Start Date: 08/26/21 Status: Ordered LORazepam 0.5 mg oral tablet 1 tablet = 0.5 mg, By Mouth, 2 times a day, PRN as needed for anxiety, # 28 tablet, 1 Refills, Maintenance, 12/02/21 10:54:00 EST, [facility] #[id number], 173, cm, 11/06/21 7:58:00 EST, Height, 46.2, kg, 10/29/21 15:33:00 EST, Dry Weight Start Date: 12/02/21 Status: Ordered MiraLax oral powder for reconstitution = 17 Gm, By Mouth, Daily, PRN Constipation, dissolve in water before taking, # 527 Gm, 0 Refills, Maintenance, 10/22/21 15:11:00 EST, REC Powder, [facility] #[id number], Partial fill upon patient request if the prescription is for a schedule II o... Start Date: 10/22/21 Status: Ordered multivitamin Multiple Vitamins oral tablet 1 tablet, By Mouth, Daily, # 30 tablet, 11 Refills, Maintenance, 11/26/21 13:34:00 EST, Tablet, [facility] #45710, Partial fill upon patient request if the [...] 3 Refills, Maintenance, 03/13/21 13:26:00 EDT, Tablet, [facility] #21957, 170, cm, 10/02/20 10:06:00 EST, Height, 56.3, kg, 11/24/19 22:58:00 EST, Dry Weight Start Date: 03/13/21 Status: Ordered Senna 8.6 mg oral tablet 17.2 mg, 2, tablet, By Mouth, Daily at bedtime, PRN, # 100 tablet, Refills 0, Tot. Refills 0, Maintenance, for constipation, 10/22/21 15:09:00 EST, Route to Pharmacy Electronically, [facility] #[id number] Tablet, Partial fill upon patient request... Start [...] 9:09:16, Aerosol Start Date: 04/16/16 Status: Ordered traMADol 50 mg oral tablet 1 tablet = 50 mg, By Mouth, 3 times a day, PRN as needed for pain, for 7 days, # 21 tablet, 0 Refills, Acute 12/10/21 8:43:00 EST, 12/03/21 8:43:00 EST, Tablet, [facility] #[id number], Partial fill upon patient request if the prescription is for... Start Date: 12/03/21 Stop Date: 12/10/21 Status: Ordered Tylenol 8 HR Arthritis Pain 650 mg oral tablet, extended release 1 tablet = 650 mg, By Mouth, Every 8 hours, PRN Pain , Moderate, # 100 tablet, 1 Refills, Maintenance, 02/26/21 15:47:00 EDT, ER Tablet, [facility] #[id number], Partial fill upon patient requestif the prescription [...] 11 Refills, Maintenance, 12/02/21 10:55:00 EST, Capsule, [facility] #[id number], Partial fill upon patient request if the [...]
--- OUTSIDE RECORDS SUMMARY | 2023-08-21 08:38 | XMS_ITS | Continuity of Care Document ---
Author Name Unknown Organization [facility] Address [address] [place] [address]- Care Team Providers Care Millwright Helper Name Role Phone Graciela Nunez MD Primary Care Physician [place] [facility] [place]23 [facility] [address] [place], [place] [address] Allergies, Adverse Reactions, Alerts Substance [...] 23-valent vaccine 6 07/31/10 Recorded 1Result Comment: [id number] given w/out incident 2Location History: [place], [place] 3Admin Note: done @ dr jones office 4Location History: [facility] 5Location History: [facility] 6Location History: [facility] Medications aspirin 81 mg [...] Replace Required Details, Route to Pharmacy Electronically, [id number], 170, cm, ... Start Date: 03/26/23 Status: Ordered baclofen 10 mg oral tablet 10 mg, 1, tablet, By Mouth, 2 times a day, PRN, # 28 tablet, Refills 2, Tot. Refills 2, Maintenance, Pain , Moderate, 02/11/23 12:27:00 EDT, Route to Pharmacy Electronically, [facility]/pharmacy #[id number], Partial fill upon patient request if the [...] 9:01:00 EST, Route to Pharmacy Electronically, [facility]/pharmacy #[id number], 170, cm, 02/04/22 11:19:00 EDT, Height, 44.1, kg, 12/20/21 16:05:00 EST, Dry Weight Start Date: 12/03/22 Status: Ordered gabapentin 300 mg oral capsule 2, capsule, By Mouth, 3 times a day, # 180 capsule, Refills 5, Tot. Refills 5, Maintenance, 08/13/22 13:03:00 EDT, Route to Pharmacy Electronically, [facility]/pharmacy #[id number], 170, cm, 02/04/22 11:19:00 EDT, Height, 44.1, kg, 12/20/21 16:05:00 EST, Dry Weight Start Date: 08/13/22 Status: Ordered hydrOXYzine hydrochloride 10 mg oral tablet 3 tablet = 30 mg, By Mouth, 3 times a day, PRN NEEDED FOR ANXIETY, # 270 tablet, 3 Refills, Maintenance, 03/01/23 12:03:00 EDT, [facility]/pharmacy #[id number], 170, cm, 02/04/22 11:19:00 EDT, Height, 44.1, kg, 12/20/21 16:05:00 EST, Dry Weight Start Date: 03/01/23 Status: Ordered LORazepam 0.5 mg oral tablet 1 tablet = 0.5 mg, By Mouth, 2 times a day, PRN as needed for anxiety, for 14 days, fill when due, # 28 tablet, 1 Refills, Acute 05/07/23 12:41:00 EDT, 04/09/23 12:41:00 EDT, Tablet, [facility]/pharmacy #[id number], Partial fill upon patient request [...] Refills, Maintenance, 12/16/22 9:12:00 EST, Capsule, [facility]/pharmacy #[id number], Partial fill upon patient request [...] 0 Refills, Maintenance, 04/20/23 11:30:00 EDT, Tablet, [facility]/pharmacy #[id number], Partial fill upon patient request if the prescription is for a schedule II opio... Start Date: 04/20/23 Status: Ordered predniSONE 10 mg oral tablet See Instructions, 30 mg daily for 3 days and then 20 mg daily for 3 days and then continue 10 mg daily., # 39 each, 0 Refills, Maintenance, 03/22/23 13:16:00 EDT, Tablet, [facility], Partial fill upon patient request [...] Personnel Name: Milena ORTIZ, Morgan Hancock Position: [facility] Renal MD Member Role: Lifetime Consulting Physician Address: Address: [address] [place] [address], [address] [place] [address]- Name: Graciela Nunez MD Position: [facility] Physician - Primary Care Member Role: PCP Address: Address: [address] [place] [address]- [place] Name: Maryam Camara RN Position: S [...] Care Nurse Name: Romeo Reid MD Position: [facility] Renal MD Member Role: Lifetime Consulting Physician Address: Address: [address] [place] [address] [facility], [place] [address]- Name: Olga Valladares RN Position: [facility] RN Member Role: Primary Care Nurse Name: Ruby Alexandre RN Position: [facility] RN Member Role: Primary Care Nurse Address: Address: [address] [place] [address]- Name: Celso Lawson MD Position: [facility] Renal MD Member Role: Lifetime Consulting Physician Address: Address: [address] [place] [address] [facility] [place] [address]- Name: Chloe Fisher LPN Position: [facility] RN Member Role: Primary Care Nurse Care Team Related Persons Name: INDIALAZARUS Address: [place] [address] Name: KAVON NICOLE Address: [address] [place] [address] Name: PT, STATES NONE
--- OUTSIDE RECORDS SUMMARY | 2023-08-21 08:38 | XMS_ITS | Continuity of Care Document ---
Author Name Unknown Organization [facility] Address [address] [place] [address]- Care Team Providers Care Sap Bw Bi Developer Name Role Phone Mayra ORTIZ, Graciela Lares Primary Care Physician Encounter [facility] Date(s): 11/22/20 - 12/22/20 [facility] [address] [place], [place] [address] Allergies, Adverse Reactions, Alerts Substance Reaction Severity [...] 23-valent vaccine 5 07/31/10 Recorded 1Location History: [place], [place] 2Admin Note: done @ dr jones office 3Location History: [facility] 4Location History: [facility] 5Location History: [facility] Medications alendronate 70 mg oral tablet [...] Replace Required Details, Route to Pharmacy Electronically, [facility] #[id number]... Start Date: 01/31/20 Status: Ordered folic acid 1 mg oral tablet 1 mg, 1, tablet, By Mouth, Daily, # 30 tablet, Refills 3, Tot. Refills 3, Maintenance, 01/18/20 10:43:00 EDT, Route to Pharmacy Electronically, [facility] #[id number], 170, cm, 12/13/19 13:51:00EST, Height, 56.3, kg, 11/24/19 22:58:00 EST, Dry W... Start Date: 01/18/20 Status: Ordered furosemide 20 mg oral tablet 1, tablet, By Mouth, Daily, PRN, # 90 tablet, Refills 0, Tot. Refills 0, Maintenance, NEEDED FORLEG SWELLING, 04/19/20 15:50:00 EDT, Route to Pharmacy Electronically, [facility] #[id number],170, cm, 12/13/19 13:51:00 EST, Height, 56.3, kg, 0... Start Date: 04/19/20 Status: Ordered gabapentin 300 mg oral capsule 600 mg, 2, capsule, By Mouth, 3 times a day, # 180 capsule, Refills 3, Tot. Refills 3, Maintenance,10/01/20 15:48:00 EST, Route to Pharmacy Electronically, [facility] #[id number], 170, cm, 12/13/19 13:51:00 EST, Height, 56.3, kg, 11/24/19 22:58:... Start Date: 10/01/20 Status: Ordered gabapentin 300 mg oral capsule See Instructions, TAKE 2 CAPSULES BY MOUTH three times per day, # 180 capsule, Refills 1, Instructions Replace Required Details, Route to Pharmacy Electronically, [facility] #[id number], 170, cm, 12/13/19 13:51:00 EST, Height, 56.3, [...] 12/17/21 8:00:00 EST, 12/16/20 12:14:00 EST, Tablet, [facility] #[id number], Partial fill upon patient request if the prescription is for a sched... Start Date: 12/16/20 Stop Date: 12/17/21 Status: Ordered Metoprolol Succinate ER 25 mg oral tablet, extended release 1 tablet = 25 mg, By Mouth, Daily, # 90 tablet, 1 Refills, Maintenance, 01/29/20 10:50:00 EDT, XL Tablet, [facility] #[id number], 170, cm, 12/13/19 13:51:00 EST, Height, 56.3, [...] 3 Refills, Maintenance, 11/21/20 10:53:00 EST, Tablet, [facility] #[id number], 170, cm, 10/02/20 10:06:00 EST, Height, 56.3, [...] 6 Refills, Maintenance, 06/17/20 16:11:00 EDT, Aerosol, [facility] #[id number], 170, cm, 12/13/19 13:51:00 EST, Height, 56.3, kg, 11/24/19 22:58:00 EST, Dry Weight Start Date: 06/17/20 Stop Date: 01/13/21 Status: Ordered Ventolin HFA 108 mcg/inh inhalation aerosol with adapter 2 puffs, Inhalation, 4 times a day, PRN for wheezing, # 1 each, 0 Refills, Maintenance, 10/02/20 10:55:00 EST, Aerosol, [facility]acy #[id number], 170, cm, 10/02/20 10:06:00 EST, Height, 56.3, kg, 11/24/19 22:58:00 EST, Dry Weight Start Date: 10/02/20 Status: Ordered Vitamin B1 100 mg oral tablet 1, tablet, By Mouth, Daily, # 30 tablet, Refills 11, Tot. Refills 0, Acute, 12/18/19 14:10:00 EST, Route to Pharmacy Electronically, [facility] #[id number], 170, cm, 12/13/19 13:51:00 EST, Height, 56.3, kg, 11/24/19 22:58:00 EST, Dry Weight Start Date: 12/18/19 Status: Ordered Zofran 4 mg oral tablet 1 tablet = 4 mg, By Mouth, 3 times a day, PRN nausea, # 30 tablet, 0 Refills, Maintenance, 209:17:00 EDT, Tablet, [facility] #[id number], 170, cm, 12/13/19 13:51:00 EST, Height, 56.3, [...]
--- OUTSIDE RECORDS SUMMARY | 2023-08-21 08:38 | XMS_ITS | Continuity of Care Document ---
Author Name Unknown Organization [facility] Address [address] [place] [address]- Care Team Providers Care Cornice Maker Name Role Phone Graciela Nunez MD Primary Care Physician Encounter [facility] Date(s): 02/10/22 - 03/12/22 [facility] [address] [place], [place] [address] Allergies, Adverse [...] 23-valent vaccine 6 07/31/10 Recorded 1Result Comment: [id number] given w/out incident 2Location History: [place], [place] 3Admin Note: done @ dr jones office 4Location History: [facility] 5Location History: [facility] [...] 02/04/22 11:02:00 EDT, Route to Pharmacy Electronically, [facility] #[id number], change in dosage, 170, cm, 02/04/22 10:40:00 EDT, Height, 44.1, kg, 02... Start Date: 02/04/22 Status: Ordered calcium (as carbonate)-vitamin D 500 mg-400 intl units oral tablet 1 tablet, By Mouth, 2 times a day, calcium 500/vitamin d 400 iu twice daily, # 60 tablet, 6 Refills, Maintenance, 02/11/22 10:15:00 EDT, Tablet, [facility] #[id number], Partial fill upon patientrequest if the prescription is for a schedule II op... Start Date: 02/11/22 Status: Ordered Colace sodium 100 mg oral capsule 100 mg, 1, capsule, By Mouth, 2 times a day, PRN, # 60 capsule, Refills 5, Tot. Refills 5, Maintenance, for constipation, 02/04/22 11:08:00 EDT, Route to Pharmacy Electronically, [facility][id number], prefers gel formulation, 170, cm, 02/04/22... Start Date: 02/04/22 Status: Ordered diltiazem 180 mg/24 hours oral capsule, extended release 180 mg, 1, capsule, By Mouth, Daily, # 30 capsule, Refills 0, Tot. Refills 0, Maintenance, 11/06/2209:09:00 EST, Route to Pharmacy Electronically, [facility] #[id number], Partial fill upon patient request if the prescription is for a schedule II... Start Date: 11/06/21 Status: Ordered Flonase 50 mcg/inh nasal spray 1 sprays, Nares, Both, Daily in AM, # 16 Gm, 4 Refills, Maintenance, 12/03/21 12:34:00 EST, [place], [facility] #[id number], Partial fill upon patient request if the prescription is for a scheduleII opioid drug., 1 sprays Nares, Both Daily in AM,... Start Date: 12/03/21 Status: Ordered folic acid 1 mg oral tablet 1 mg, 1, tablet, By Mouth, Daily, # 30 tablet, Refills 11, Tot. Refills 11, Maintenance, 02/25/22 16:15:00 EDT, Route to Pharmacy Electronically, [facility] #[id number], 170, cm, 02/04/22 11:19:00 EDT, Height, 44.1, [...] 02/09/22 15:13:00 EDT, Route to Pharmacy Electronically, [facility] #[id number], 170, cm, 02/04/22 11:19:00 EDT, Height, 44.1, kg, 12/20/21 16:05:00 EST,... Start Date: 02/09/22 Status: Ordered Hair, Skin & Nails 5 mg oral capsule 1 capsule = 5 mg, By Mouth, Daily, # 90 capsule, 3 Refills, Maintenance, 02/19/22 12:29:00 EDT, [facility] #[id number], Partial fill upon patient request if the prescription is for a schedule IIopioid drug., 1 capsule By Mouth Daily, 170, cm, 04... Start Date: 02/19/22 Status: Ordered lactulose 10 gm/15 ml oral syrup 15 mL = 10 Gm, By Mouth, Every 72 hours, PRN as needed for constipation, # 300 mL, 5 Refills, Maintenance, 01/05/22 10:50:00 EST, Syrup, [facility] #[id number], Partial fill upon patient requestif the prescription is for a schedule II opioid ivonne... Start Date: 01/05/22 Status: Ordered LORazepam 0.5 mg oral tablet 1 tablet = 0.5 mg, By Mouth, 3 times a day, # 60 tablet, 3 Refills, Maintenance, 02/04/22 11:05:00 EDT, Tablet, [facility] #[id number], Partial fill upon patient request if the [...] 02/06/22 Stop Date: 02/20/22 Status: Ordered predniSONE 5 mg oral tablet [...] 10/22/21 15:09:00 EST, Route to Pharmacy Electronically, [facility] #[id number] Tablet, Partial fill upon patient request... Start [...] Refills, Maintenance, 02/26/21 15:47:00 EDT, ER Tablet, [facility] #[id number], Partial fill upon patient requestif the prescription is for a schedule II opioid ivonne... Start Date: 02/26/21 Status: Ordered Ventolin HFA 108 mcg/inh inhalation aerosol with adapter 2 puffs, Inhalation, 4 times a day, PRN for wheezing, # 1 each, 0 Refills, Maintenance, 10/02/20 10:55:00 EST, Aerosol, [facility]/pharmacy #4471, 170, cm, 10/02/20 10:06:00 EST, Height, 56.3, kg, 11/24/19 22:58:00 EST, Dry Weight Start Date: 10/02/20 Status: Ordered Vitamin D3 1000 intl units oral capsule 1 capsule = 25 mcg, By Mouth, Daily, # 30 capsule, 11 Refills, Maintenance, 12/02/21 10:55:00 EST, Capsule, [facility] #[id number], Partial fill upon patient request if the [...]
--- OUTSIDE RECORDS SUMMARY | 2023-08-21 08:38 | XMS_ITS | Continuity of Care Document ---
Author Name Unknown Organization [facility] Address [address] [place] [address]- Care Team Providers Care Tariff Publishing Agent Name Role Phone Graciela Nunez MD Primary Care Physician [place] [facility] - 07/[place]/23 [facility] [address] [place], [place] [address] Allergies, Adverse Reactions, Alerts Substance Reaction Severity [...] 23-valent vaccine 6 07/31/10 Recorded 1Result Comment: [id number] given w/out incident 2Location History: [place], [place] 3Admin Note: done @ dr jones office 4Location History: [facility] 5Location History: [facility] 6Location History: [facility] Medications acetaminophen 325 mg oral tablet [...] 05/25/23 15:31:00 EDT, Route to Pharmacy Electronically, [facility]/pharmacy #[id number], Partial fill upon patient request if the [...] 12/03/22 9:01:00 EST, Route to Pharmacy Electronically, [facility]/pharmacy #[id number], 170, cm, 02/04/22 11:19:00 EDT, Height, 44.1, kg, 12/20/21 16:05:00 EST, Dry Weight Start Date: 12/03/22 Status: Ordered gabapentin 300 mg oral capsule 2, capsule, By Mouth, 3 times a day, # 180 capsule, Refills 5, Tot. Refills 5, Maintenance, 08/13/22 13:03:00 EDT, Route to Pharmacy Electronically, [facility]/pharmacy #[id number], 170, cm, 02/04/22 11:19:00 EDT, Height, 44.1, kg, 12/20/21 16:05:00 EST, Dry Weight Start Date: 08/13/22 Status: Ordered hydrOXYzine hydrochloride 10 mg oral tablet 3 tablet = 30 mg, By Mouth, 3 times a day, PRN NEEDED FOR ANXIETY, # 270 tablet, 3 Refills, Maintenance, 03/01/23 12:03:00 EDT, [facility]/pharmacy #[id number], 170, cm, 02/04/22 11:19:00 EDT, [...] 3 Refills, Maintenance, 12/16/22 9:12:00 EST, Capsule, [facility]/pharmacy #[id number], Partial fill upon patient request [...] 30 capsule, 0 Refills, Maintenance, 06/24/23 19:50:00 EDT,[facility]/pharmacy #[id number], Partial fill upon patient request [...] tablet, 0 Refills, Maintenance, 06/23/23 17:30:00 EDT, [facility]/pharmacy #[id number], 170, cm, 04/19/23 7:05:00 EDT, Height, 45.2, kg,... Start Date: 06/23/23 Status: Ordered Ventolin HFA 108 mcg/inh inhalation aerosol with adapter 2 puffs, Inhalation, 4 times a day, PRN for wheezing, # 1 each, 0 Refills, Maintenance, 06/24/23 19:49:00 EDT, Aerosol, [facility]/pharmacy #[id number], 170, cm, 04/19/23 7:05:00 EDT, Height, 45.2, kg, 05/11/23 2:35:00 EDT, Dry Weight Start Date: 06/24/23 Status: Ordered Vitamin D3 1000 intl units oral capsule 1 capsule = 25 mcg, By Mouth, Daily, # 30 capsule, 11 Refills, Maintenance, 12/03/22 9:00:00 EST, Capsule, [facility]/pharmacy #[id number], Partial fill upon patient request [...] Team Personnel Name: Herminia Parker RN Position: [facility] RN Member Role: Primary Care Nurse Name: Belgica Mckeon RN Position: [facility] RN Member Role: Primary Care Nurse Name: Morgan Abbott MD Position: [facility] Renal MD Member Role: Lifetime Consulting Physician Address: Address: [address] [place] [address] Name: Bernice Molina RN Position: [facility] RN Member Role: Primary Care Nurse Name: Graciela Nunez MD Position: [facility] Physician - Primary Care Member Role: PCP Address: Address: [address] [place] [address]- Name: Maryam Camara RN Position: [facility] RN Member Role: Primary Care Nurse Name: Josemanuel Hawkins RN Position: [facility] RN Member Role: Primary Care Nurse Name: Milana Garland RN Position: [facility] RN Member Role: Primary Care Nurse Name: Mckay Esquivel MD Position: [facility] Renal MD Member Role: Lifetime Consulting Physician Address: Address: [address] [place] [address], [address] Name: Rylie Francois RN Position: [facility] RN Member Role: Primary Care Nurse Name: Luisa Storey RN Position: [facility] RN Member Role: Primary Care Nurse Name: Elizabeth Ferris RN Position: [facility] RN Member Role: Primary Care Nurse [...] Care Nurse Name: Paty Ventura RN Position: [facility] RN Member Role: Primary Care Nurse Name: Ninfa Soto RN Position: [facility] RN Member Role: Primary Care Nurse Name: Romeo Reid MD Position: [facility] Renal MD Member Role: Lifetime Consulting Physician Address: Address: [address] [place] [address] [facility], [address] Name: Olga Valladares RN Position: [facility] RN Member Role: Primary Care Nurse Name: Karyn Quezada RN Position: [facility] RN Member Role: Primary Care Nurse Name: Ruby Alexandre RN Position: [facility] RN Member Role: Primary Care Nurse Address: Address: [address] [place] [address]- Name: Celso Lawson MD Position: [facility] Renal MD Member Role: Lifetime Consulting Physician Address: Address: [address] [place] [address] [facility] [address] Name: Alyssa Camacho RN Position: S RN Member Role: Primary Care Nurse Name: Keely Pascal RN Position: S RN Member Role: Primary Care Nurse Name: Chloe Fisher LPN Position: S RN Member Role: Primary Care Nurse Care Team Related Persons Name: LAZARUS OSBORNE Address: [place] [address] Name: KAVON NICOLE Address: [address] [place] [address] Name: PT, STATES NONE
--- OUTSIDE RECORDS SUMMARY | 2023-08-21 08:38 | XMS_ITS | Continuity of Care Document ---
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 Name Role Phone Graciela Nunez MD Primary Care Physician Encounter [facility] Date(s): 08/30/21 - 08/31/[address] [address]- Discharge Disposition: A-D/C Home Attending Physician: Celso Santana MD Admitting Physician: Celso Santana MD Referring Physician: Not on Staff, Referring [...] 23-valent vaccine 5 07/31/10 Recorded 1Location History: [place], [place] 2Admin Note: done @ dr jones office 3Location History: [facility] 4Location History: [facility] [...] at the same time as naproxen, # 28 capsule, 0 Refills, Maintenance, 08/25/21 13:56:00 EDT, Capsule, [facility] #[id number], Partial fill upon patient request if the prescription i... Start Date: 08/25/21 Stop Date: 09/01/21 Status: Ordered folic acid 1 mg oral tablet 1 mg, 1, tablet, By Mouth, Daily, # 30 tablet, Refills 5, Tot. Refills 5, Maintenance, 01/31/21 16:35:00 EDT, Route to Pharmacy Electronically, [facility] #[id number], 170, cm, 10/02/20 10:06:00EST, Height, 56.3, kg, 11/24/19 22:58:00 EST, Dry W... Start Date: 01/31/21 Status: Ordered furosemide 20 mg oral tablet 1, tablet, By Mouth, Daily, PRN, # 90 tablet, Refills 0, Tot. Refills 0, Maintenance, NEEDED FORLEG SWELLING, 04/19/20 15:50:00 EDT, Route to Pharmacy Electronically, [facility] #[id number],170, cm, 12/13/19 13:51:00 EST, Height, 56.3, kg, 0... Start Date: 04/19/20 Status: Ordered gabapentin 300 mg oral capsule 2, capsule, By Mouth, 3 times a day, # 180 capsule, Refills 1, Tot. Refills 1, Maintenance, 08/26/21 10:50:00 EDT, Route to Pharmacy Electronically, [facility] #[id number], 162.56, cm, 08/22/21 2:36:00 EDT, Height, 52.65, [...] day, # 28 tablet, 2 Refills, Maintenance, 08/15/21 17:40:00 EDT, [facility] #[id number], 170, cm, 10/02/20 10:06:00 EST, Height, 56.3, kg, 11/24/19 22:58:00 EST, Dry Weight Start Date: 08/15/21 Status: Ordered Metoprolol Succinate ER 25 mg oral tablet, extended release 1 tablet = 25 mg, By Mouth, Daily, # 90 tablet, 1 Refills, Maintenance, 01/29/20 10:50:00 EDT, XL Tablet, [facility] #[id number], 170, cm, 12/13/19 13:51:00 EST, Height, 56.3, [...] 3 Refills, Maintenance, 03/13/21 13:26:00 EDT, Tablet, [facility] #[id number], 170, cm, 10/02/20 10:06:00 EST, Height, 56.3, [...] Refills, Maintenance, 02/26/21 15:47:00 EDT, ER Tablet, [facility] #[id number], Partial fill upon patient requestif the prescription is for a schedule II opioid ivonne... Start Date: 02/26/21 Status: Ordered Ventolin HFA 108 mcg/inh inhalation aerosol with adapter 2 puffs, Inhalation, 4 times a day, PRN for wheezing, # 1 each, 0 Refills, Maintenance, 10/02/20 10:55:00 EST, Aerosol, [facility]/pharmacy #[id number], 170, cm, 10/02/20 10:06:00 EST, Height, 56.3, kg, 11/24/19 22:58:00 EST, Dry Weight Start Date: 10/02/20 Status: Ordered Vitamin B1 100 mg oral tablet 1, tablet, By Mouth, Daily, # 30 tablet, Refills 7, Tot. Refills 0, Acute, 01/06/21 14:35:00 EST, Route to Pharmacy Electronically, [facility] #[id number], 170, cm, 10/02/20 10:06:00 EST, Height, 56.3, kg, 11/24/19 22:58:00 EST, Dry Weight Start Date: 01/06/21 Status: Ordered Zofran 4 mg oral tablet 1 tablet = 4 mg, By Mouth, 3 times a day, PRN nausea, # 30 tablet, 0 Refills, Maintenance, 209:17:00 EDT, Tablet, [facility] #[id number], 170, cm, 12/13/19 13:51:00 EST, Height, 56.3, [...] Active Leg swelling(Confirmed) Active Abnormal TSH(Confirmed) Active Results Radiology Reports * Exam Date Time Procedure Performing Provider Status 08/30/21 5:38 PM Chest Portable [facility] Story (Verified) Notes: (Chest Portable) Reason For Exam: Cough RESULT: Chest Portable Chest Portable Hx of Present Illness: pt has had increased swelling in ble, increased sob dyspnea. feels like I'mfull of fluid ; Reason: Cough; Clinical Question(s): Pneumonia; Special Instructions: This is a protocol film and radiologist should call any findings to the Charge Nurse or appropriate provider COMPARISON: 08/21/2021 FINDINGS: LINES AND TUBES: None. LUNGS AND PLEURA: Clear lungs. Normal pulmonary vascularity. No pleural effusion. No pneumothorax. HEART, MEDIASTINUM AND DEEPALI: Heart is normal in size. Normal upper mediastinal and hilar contour. BONES AND SOFT TISSUES: Peripherally calcified breast implants. IMPRESSION: No acute abnormality. WSN: [id number] Ordering Physician: Bobby Sual Dictated By: Jose Kat MD Dictated Date/Time: 08/30/21 5:44 pm Reviewed By: Jose Kat MD Signed By: Jose Kat MD Signed Date/Time: 08/30/21 5:44 pm Transcribed By: VALENTIN Transcribed Date/Time: 08/30/21 5:44 pm Vital Signs Most recent to oldest [Reference Range]: 1 2 3 Height 170 cm (08/30/21 5:40 PM) 170 cm (08/30/21:26 PM) 170 cm (08/30/21 5:15 PM) Weight 51.5 kg (08/30/21 5:40 PM) 51.5 kg (08/30/21:26 PM) 51.5 kg (08/30/21:15 PM) Oxygen Saturation [94-100 %] 99 % (08/30/21: PM) 99 % (08/30/21:15 PM) Pulse Rate [55-90 bpm] 104 bpm *H* (08/30/21: PM) 117 bpm *H* (08/30/21: PM) Body Mass Index [18.5-24.99] 17.82 *L* (08/30/21:40 PM) 17.82 *L* (08/30/21:15 PM) Blood Pressure [90-138/55-84 mm Hg] 132/69mm Hg (08/30/21: PM) 130/73mm Hg (08/30/21:15 PM) Respiratory Rate [16-30 br/min] 16 br/min (08/30/21: PM) 18 br/min (08/30/21:15 PM) Temperature [96.8-100.4 DegF] 98.0 DegF (08/30/21:40 PM) Liters per Minute 4 L/min (08/30/21: PM) 5 L/min (08/30/21:15 PM) 6 L/min (08/30/21 5:04 PM) Mode of Delivery (Oxygen) Nasal cannula (08/30/21: PM) Nasal cannula (08/30/21:15 PM) Nasal cannula (08/30/21 5:04 PM) Blood pressure sites Arm, right (08/30/21:22 PM) Arm, right (08/30/21:15 PM) Temperature Route Oral (08/30/21 5:40 PM) Oral (08/30/21 5:15 PM) Dry Weight 51.5 kg (10/30/21 5:40 PM) 51.5 kg (08/30/21 5:26 PM) 51.5 kg (08/30/21 5:15 PM) Weight Obtained Via Patient lift hanging scale (08/30/21 5:15 PM) Dry Weight Obtained Via Patient/family stated (08/30/21 5:15 PM) Social History Social History Type Response Smoking Status Current every day maria elena penn; Tobacco use times per day: smokes about 1.5 packs per day; entered on: 04/16/16 Sex
--- OUTSIDE RECORDS SUMMARY | 2023-08-21 08:38 | XMS_ITS | Continuity of Care Document ---
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 Name Role Phone Graciela Nunez MD Primary Care Physician [phone] [place] [facility] 07/[place]/21 [facility] [address] [place], [place] [address] Allergies, Adverse Reactions, Alerts [...] 23-valent vaccine 5 07/31/10 Recorded 1Location History: [place], [place] 2Admin Note: done @ dr jones office 3Location History: [facility] 4Location History: [facility] 5Location History: [facility] Medications alendronate 70 mg [...] Replace Required Details, Route to Pharmacy Electronically, [facility] #[id number]... Start Date: 01/31/20 Status: Ordered folic acid 1 mg oral tablet 1 mg, 1, tablet, By Mouth, Daily, # 30 tablet, Refills 5, Tot. Refills 5, Maintenance, 01/31/21 16:35:00 EDT, Route to Pharmacy Electronically, [facility] #[id number], 170, cm, 10/02/20 10:06:00EST, Height, 56.3, kg, 11/24/19 22:58:00 EST, Dry W... Start Date: 01/31/21 Status: Ordered furosemide 20 mg oral tablet 1, tablet, By Mouth, Daily, PRN, # 90 tablet, Refills 0, Tot. Refills 0, Maintenance, NEEDED FORLEG SWELLING, 04/19/20 15:50:00 EDT, Route to Pharmacy Electronically, [facility] #[id number],170, cm, 12/13/19 13:51:00 EST, Height, 56.3, kg, 0... Start Date: 04/19/20 Status: Ordered gabapentin 300 mg oral capsule 2, capsule, By Mouth, 3 times a day, # 180 capsule, Refills 1, Tot. Refills 1, Maintenance, 07/28/21 9:58:00 EDT, Route to Pharmacy Electronically, [facility] #[id number], 170, cm, 10/02/20 10:06:00 EST, Height, 56.3, kg, 11/24/19 22:58:00 EST, D... Start Date: 07/28/21 Status: Ordered Home Blood Pressure Monitor See [...] tablet, 1 Refills, Maintenance, 07/01/21 22:21:00 EDT, [facility] #[id number], 170, cm, 10/02/20 10:06:00 EST, Height, 56.3, kg, 11/24/19... Start Date: 07/01/21 Status: Ordered LORazepam 0.5 mg oral tablet 1 tablet = 0.5 mg, By Mouth, 2 times a day, # 28 tablet, 2 Refills, Maintenance, 07/16/21 16:58:00 EDT, [facility] #[id number], 170, cm, 10/02/20 10:06:00 EST, Height, 56.3, kg, 11/24/19 22:58:00 EST, Dry Weight Start Date: 07/16/21 Status: Ordered Metoprolol Succinate ER 25 mg oral tablet, extended release 1 tablet = 25 mg, By Mouth, Daily, # 90 tablet, 1 Refills, Maintenance, 01/29/20 10:50:00 EDT, XL Tablet, [facility] #[id number], 170, cm, 12/13/19 13:51:00 EST, Height, 56.3, [...] 3 Refills, Maintenance, 03/13/21 13:26:00 EDT, Tablet, [facility] #[id number], 170, cm, 10/02/20 10:06:00 EST, Height, 56.3, [...] 02/18/21 16:23:00 EDT, Route to Pharmacy Electronically, [facility] #[id number], Partial fill upon patient request if... Start Date: 02/18/21 Stop Date: 03/04/21 Status: Ordered Tylenol 8 HR Arthritis Pain 650 mg oral tablet, extended release 1 tablet = 650 mg, By Mouth, Every 8 hours, PRN Pain , Moderate, # 100 tablet, 1 Refills, Maintenance, 02/26/21 15:47:00 EDT, ER Tablet, [facility] #53629, Partial fill upon patient requestif the prescription is for a schedule II opioid ivonne... Start Date: 02/26/21 Status: Ordered Ventolin HFA 108 mcg/inh inhalation aerosol with adapter 2 puffs, Inhalation, 4 times a day, PRN for wheezing, # 18 Gm, 6 Refills, Maintenance, 06/17/20 16:11:00 EDT, Aerosol, [facility] #[id number], 170, cm, 12/13/19 13:51:00 EST, Height, 56.3, [...] 01/06/21 14:35:00 EST, Route to Pharmacy Electronically, [facility] #[id number], 170, cm, 10/02/20 10:06:00 EST, Height, 56.3, kg, 11/24/19 22:58:00 EST, Dry Weight Start Date: 01/06/21 Status: Ordered Zofran 4 mg oral tablet 1 tablet = 4 mg, By Mouth, 3 times a day, PRN nausea, # 30 tablet, 0 Refills, Maintenance, :17:00 EDT, Tablet, [facility] #00574, 170, cm, 12/13/19 13:51:00 EST, Height, 56.3, [...]
--- OUTSIDE RECORDS SUMMARY | 2023-08-21 08:38 | XMS_ITS | Continuity of Care Document ---
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 Role Phone Graciela Nunez MD Primary Care Physician [phone] Encounter [facility] Date(s): 06/25/20 - 07/25/20 [facility] [address] [place] [address]- [facility] Allergies, Adverse Reactions, Alerts Substance Reaction Severity [...] 23-valent vaccine 5 07/31/10 Recorded 1Location History: [place], [place] 2Admin Note: done @ dr jones office 3Location History: [facility] 4Location History: [facility] 5Location History: [facility] Medications alendronate 70 mg oral [...] 07/18/20 12:59:00 EDT, Route to Pharmacy Electronically, [facility] #[id number], 170, cm, 12/13/19 13:51:00 EST, Height, 56.3... [...] Replace Required Details, Route to Pharmacy Electronically, [facility] #[id number]... Start Date: 01/31/20 Status: Ordered erythromycin [...] 01/18/20 10:43:00 EDT, Route to Pharmacy Electronically, [facility] #[id number], 170, cm, 12/13/19 13:51:00EST, Height, 56.3, kg, 11/24/19 22:58:00 EST, Dry W... Start Date: 01/18/20 Status: Ordered furosemide 20 mg oral tablet 1, tablet, By Mouth, Daily, PRN, # 90 tablet, Refills 0, Tot. Refills 0, Maintenance, NEEDED FORLEG SWELLING, 04/19/20 15:50:00 EDT, Route to Pharmacy Electronically, [facility] #[id number],170, cm, 12/13/19 13:51:00 EST, Height, 56.3, kg, 0... Start Date: 04/19/20 Status: Ordered gabapentin 300 mg oral capsule See Instructions, TAKE 2 CAPSULES BY MOUTH EVERY MORNING, 1 CAPSULE MID DAY AND 2 CAPSULES EVERY NIGHT AT BEDTIME, # 150 capsule, Refills 1, Maintenance, Instructions Replace Required Details, Route to Pharmacy Electronically, [facility] #[id number]... Start Date: 01/19/20 Status: Ordered [...] Refills, Maintenance, 01/29/20 10:50:00 EDT, XL Tablet, [facility] #[id number], 170, cm, 12/13/19 13:51:00 EST, Height, 56.3, [...] 6 Refills, Maintenance, 06/17/20 16:11:00 EDT, Aerosol, [facility] #[id number], 170, cm, 12/13/19 13:51:00 EST, Height, 56.3, kg, 11/24/19 22:58:00 EST, Dry Weight Start Date: 06/17/20 Stop Date: 01/13/21 Status: Ordered Ventolin HFA 108 mcg/inh inhalation aerosol with adapter 2 puffs, Inhalation, 4 times a day, PRN for wheezing, # 18 Gm, 6 Refills, Maintenance, 06/17/20 16:11:00 EDT, Aerosol, [facility] #[id number], 170, cm, 12/13/19 13:51:00 EST, Height, 56.3, kg, 11/24/19 22:58:00 EST, Dry Weight Start Date: 06/17/20 Stop Date: 01/13/21 Status: Ordered Vitamin B1 100 mg oral tablet 1, tablet, By Mouth, Daily, # 30 tablet, Refills 11, Tot. Refills 0, Acute, 12/18/19 14:10:00 EST, Route to Pharmacy Electronically, [facility] #[id number], 170, cm, 12/13/19 13:51:00 EST, Height, 56.3, kg, 11/24/19 22:58:00 EST, Dry Weight Start Date: 12/18/19 Status: Ordered Zofran 4 mg oral tablet 1 tablet = 4 mg, By Mouth, 3 times a day, PRN nausea, # 30 tablet, 0 Refills, Maintenance, :17:00 EDT, Tablet, [facility] #[id number], 170, cm, 12/13/19 13:51:00 EST, Height, 56.3, [...]
--- OUTSIDE RECORDS SUMMARY | 2023-08-21 08:38 | XMS_ITS | Continuity of Care Document ---
Author Name Unknown Organization 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 [address], [place] [address] Allergies, Adverse Reactions, Alerts Substance [...] 23-valent vaccine 6 07/31/10 Recorded 1Result Comment: [id number] given w/out incident 2Location History: [place], [place] 3Admin Note: done @ dr jones office 4Location History: [facility] 5Location History: [facility] 6Location History: [facility] Medications aspirin 81 mg [...] 3 Refills, Maintenance, 04/09/22 9:54:00 EDT, Tablet, [facility] #[id number], Partial fill upon patient request if the prescription is for a schedule II opioid drug., 1 tablet By Mouth Daily, 170, cm, 02/04... Start Date: 04/09/22 Status: Ordered busPIRone 10 mg oral tablet 10 mg, 1, tablet, By Mouth, 3 times a day, # 90 tablet, Refills 3, Tot. Refills 3, Maintenance, 07/30/22 13:44:00 EDT, Route to Pharmacy Electronically, [facility]/pharmacy #[id number], new dosage, 170, cm, 02/04/22 11:19:00 EDT, Height, 44.1, kg, 12/20/21 16:05:0... Start Date: 07/30/22 Status: Ordered calcium (as carbonate)-vitamin D 500 mg-400 intl units oral tablet 1 tablet, By Mouth, 2 times a day, calcium 500/vitamin d 400 iu twice daily, # 60 tablet, 6 Refills, Maintenance, 02/11/22 10:15:00 EDT, Tablet, [facility] #[id number], Partial fill upon patientrequest if the prescription is for a schedule II op... Start Date: 02/11/22 Status: Ordered calcium-vitamin D 600 mg-400 intl units oral tablet 1 tablet, By Mouth, 2 times a day, # 60 tablet, 6 Refills, Maintenance, 05/15/22 16:21:00 EDT, Tablet, [facility] #[id number], Partial fill upon patient request if the prescription is for a schedule II opioid drug., 1 tablet By Mouth 2 times a da... Start Date: 05/15/22 Status: Ordered Colace sodium 100 mg oral capsule 100 mg, 1, capsule, By Mouth, 2 times a day, PRN, # 180 capsule, Refills 1, Tot. Refills 1, Maintenance, for constipation, 06/23/22 10:20:00 EDT, Route to Pharmacy Electronically, [facility]/pharmacy #[id number],prefers gel formulation, 170, cm, 02/04/22 11:19:00... Start Date: 06/23/22 Status: Ordered diltiazem 180 mg/24 hours oral capsule, extended release 180 mg, 1, capsule, By Mouth, Daily, # 30 capsule, Refills 0, Tot. Refills 0, Maintenance, 11/06/2209:09:00 EST, Route to Pharmacy Electronically, [facility] #[id number], Partial fill upon patient request if the prescription is for a schedule II... Start Date: 11/06/21 Status: Ordered Flonase 50 mcg/inh nasal spray 1 sprays, Nares, Both, Daily in AM, # 16 Gm, 4 Refills, Maintenance, 12/03/21 12:34:00 EST, [place], [facility] #[id number], Partial fill upon patient request if the prescription is for a scheduleII opioid drug., 1 sprays Nares, Both Daily in AM,... Start Date: 12/03/21 Status: Ordered folic acid 1 mg oral tablet 1 mg, 1, tablet, By Mouth, Daily, # 30 tablet, Refills 11, Tot. Refills 11, Maintenance, 02/25/22 16:15:00 EDT, Route to Pharmacy Electronically, [facility] #[id number], 170, cm, 02/04/22 11:19:00 EDT, Height, 44.1, [...] 08/13/22 13:03:00 EDT, Route to Pharmacy Electronically, [facility]/pharmacy #[id number], 170, cm, 02/04/22 11:19:00 EDT, Height, 44.1, kg, 12/20/21 16:05:00 EST, Dry Weight Start Date: 08/13/22 Status: Ordered Hair, Skin & Nails 5 mg oral capsule 1 capsule = 5 mg, By Mouth, Daily, # 90 capsule, 3 Refills, Maintenance, 02/19/22 12:29:00 EDT, [facility] #[id number], Partial fill upon patient request if the prescription is for a schedule IIopioid drug., 1 capsule By Mouth Daily, 170, cm, 04... Start Date: 02/19/22 Status: Ordered hydrOXYzine hydrochloride 10 mg oral tablet 1-2 TABLETS, By Mouth, 2 times a day, PRN NEEDED FOR ANXIETY, # 60 tablet, 5 Refills, Maintenance, 09/22/22 16:15:00 EST, [facility]/pharmacy #[id number], 170, cm, 02/04/22 11:19:00 EDT, Height, 44.1, kg, 12/20/21 16:05:00 EST, Dry Weight Start Date: 09/22/22 Status: Ordered lactulose 10 gm/15 ml oral syrup 15 mL = 10 Gm, By Mouth, Every 72 hours, PRN as needed for constipation, # 300 mL, 5 Refills, Maintenance, 03/19/22 14:45:00 EDT, Syrup, [facility] #[id number], Partial fill upon patient requestif the prescription is for a schedule II opioid ivonne... Start Date: 03/19/22 Status: Ordered LORazepam 0.5 mg oral tablet 1 tablet = 0.5 mg, By Mouth, 3 times a day, # 60 tablet, 3 Refills, Maintenance, 07/08/22 17:11:00 EDT, Tablet, [facility]/pharmacy #[id number], Partial fill upon patient request if the prescription is for a schedule II opioid drug., 170, cm, 02/04/22 11:19:00 EDT... Start Date: 07/08/22 Status: Ordered LORazepam 0.5 mg oral tablet 1 tablet = 0.5 mg, By Mouth, 3 times a day, # 60 tablet, 3 Refills, Maintenance, 09/18/22 16:44:00 EST, Tablet, [facility]/pharmacy #[id number], Partial fill upon patient request if the prescription is for a schedule II opioid drug., 170, cm, 02/04/22 11:19:00 EDT... Start Date: 09/18/22 Status: Ordered Metoprolol Succinate ER 25 mg [...] Daily, # 30 tablet, 5 Refills, Maintenance, 06/24/22 11:21:00 EDT, EC Tablet, 170, cm, 02/04/22 11:19:00 EDT, Height, 44.1, kg, 12/20/21 16:05:00 EST, Dry Weight Start Date: 06/24/22 Status: Ordered predniSONE 5 mg oral tablet [...] 10/22/21 15:09:00 EST, Route to Pharmacy Electronically, [facility] #[id number] Tablet, Partial fill upon patient request... Start [...] pain, for 7 days, # 21 tablet, 3 Refills, Acute 10/28/22 15:13:00 EST, 09/30/22 15:13:00 EST, Tablet, [facility]/pharmacy #[id number], Partial fill upon patient request if the prescription is for a sched... Start Date: 09/30/22 Stop Date: 10/28/22 Status: Ordered Trelegy Ellipta 200 mcg-62.5 mcg-25 [...] Refills, Maintenance, 02/26/21 15:47:00 EDT, ER Tablet, [facility] #[id number], Partial fill upon patient requestif the prescription [...] 11 Refills, Maintenance, 12/02/21 10:55:00 EST, Capsule, [facility] #[id number], Partial fill upon patient request if the prescription is for aschedule II opioid drug., 173, cm, 11/06/21 7:58:00... Start Date: 12/02/21 Status: Ordered Wheelchair See Instructions, # 1 [...] Chronic respiratory failure with hypoxia Confirmed Active Thoracic compression fracture Confirmed Active Compression fracture of spine Confirmed Active Peripheral neuropathy Confirmed Active End stage COPD Confirmed Active Hyperlipidemia Confirmed Active Pulmonary nodule Confirmed Active Osteoporosis Confirmed Active Breast pain Confirmed Active Raynaud's phenomenon Confirmed Active Rectal bleed Confirmed Active Leg swelling Confirmed Active Abnormal TSH Confirmed Active Underweight Confirmed Active Social History Social History Type Response Tobacco Other: now smoking 1 /2 pack per day. Sex Patient Care team information Care Team Personnel Name: Angie Farmer RN Position: [facility] RN Member Role: Primary Care Nurse Name: Milena ORTIZ, Morgan Hancock Position: [facility] Renal MD Member Role: Lifetime Consulting Physician Address: Address: [address] [place] [address], [address] [place] [address] Name: Graciela Nunez MD Position: [facility] Primary Care Physician Member Role: PCP Address: Address: [address] [place] [id number] [place] Name: Luisa Storey RN Position: S RN Member Role: Primary Care Nurse Care Team Related Persons Name: LAZARUS OSBORNE Address: [place] [address] Name: KAVON NICOLE Address: [address] [place] [address] Name: , [facility]
--- OUTSIDE RECORDS SUMMARY | 2023-08-21 08:38 | XMS_ITS | Continuity of Care Document ---
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 Name Role Phone Graciela Nunez MD Primary Care Physician Encounter [facility] [place] Date(s): 12/06/19 - 12/06/[address] [address]- [facility] Attending Physician: Graciela Nunez MD [...] 23-valent vaccine 5 07/31/10 Recorded 1Location History: [place], [place] 2Admin Note: done @ dr jones office 3Location History: [facility] 4Location History: [facility] 5Location History: [facility] Medications alendronate 70 [...] Refills, Soft Stop, 12/06/19 15:31:00 EST, Tablet, [facility] #[id number], 170, cm, 12/06/19 15:03:00 EST, Height, 56.3, kg, 11/24/19 22:58:00 EST, Dry Weight Start Date: 12/06/19 Status: Ordered folic acid 1 mg oral tablet 1 mg, 1, tablet, By Mouth, Daily, # 30 tablet, Refills 3, Tot. Refills 3, Maintenance, 03/06/19 13:13:46 EDT, Route to Pharmacy Electronically, [id number], [id number] Start Date: 03/06/19 Status: Ordered gabapentin 300 mg oral capsule See Instructions, 2 capsules qam, 1 capsule midday, 2 capsules at night, # 150 capsule, Refills 5, Tot. Refills 5, Maintenance, 03/06/19 13:06:04 EDT, Instructions Replace Required Details, Route to Pharmacy Electronically, [id number]... Start Date: 03/06/19 Status: Ordered Home Blood Pressure Monitor See Instructions, # 1 Unknown, Maintenance, DX: i 49.9 CARDIAC ARRYTHMIA USE DAILY LIFETIME USE HEIGHT 170CM WEIGHT 56KG, 12/06/19 15:58:00 EST, Compound Start Date: 12/06/19 Status: Ordered Metoprolol Succinate ER 25 mg oral tablet, extended release 1 tablet = 25 mg, By Mouth, Daily, # 90 tablet, 0 Refills, Maintenance, 10/29/19 12:31:00 EST, XL Tablet, [facility] #[id number], 170, cm, 07/13/19 9:58:00 EDT, Height, 59.1, kg, 07/07/19 20:49:00 EDT, Dry Weight Start Date: 10/29/19 Status: Ordered Mucinex 600 mg oral tablet, extended release 1 tablet = 600 mg, By Mouth, 2 times a day, for 10 days, # 20 tablet, 0 Refills, Acute 12/16/19 15:33:00 EST, 12/06/19 15:33:00 EST, ER Tablet, [facility] #[id number], 170, cm, 12/06/19 15:03:00EST, Height, 56.3, kg, 11/24/19 22:58:00 EST, Dry W... Start Date: 12/06/19 Stop Date: 12/16/19 Status: Ordered Nicoderm C-Q Clear 14 mg/24 hr transdermal film, extended release 1 patch, Topically, Daily, # 30 patch, 0 Refills, Acute 12/27/19 13:41:00 EST, 11/26/19 13:41:00 EST, Patch, [facility] #[id number], 170, cm, 11/26/19 5:22:00 EST, Height, 56.3, kg, 11/24/19 22:58:00 EST, Dry Weight Start Date: 11/26/19 Stop Date: 12/27/19 Status: Ordered predniSONE 10 mg oral tablet See Instructions, 4 tabs x 3 days, 3 tabs x 3 days, 2 tabs x 3 days, 1 tab x 3 days, # 30 tablet, 0Refills, Acute 01/06/20 15:30:00 EST, 12/06/19 15:30:00 EST, Tablet, [facility] #[id number], 170, cm, 12/06/19 15:03:00 EST, Height, 56.3, kg, ... Start Date: 12/06/19 Stop Date: 01/06/20 Status: Ordered Shower Chair See Instructions, # 1 Unknown, Maintenance, dx: asthma J45.909 cervical radiculopathy M54.12 [id number] weight 56kg use daily, 12/06/19 15:37:00 EST, Compound Start Date: 12/06/19 Status: Ordered Spiriva HandiHaler 18 mcg Inhalation [...] 10/24/19 13:04:00 EST, Route to Pharmacy Electronically, [facility] #[id number], 170, cm, 07/13/19 9:58:00 EDT, Height,59.1, kg, [...]
--- OUTSIDE RECORDS SUMMARY | 2023-08-21 08:38 | XMS_ITS | Continuity of Care Document ---
Author Name Unknown Organization [facility] ter Address [address] [place] [address]- Care Team Providers Care Reporting Specialist Name Role Phone Graciela Nunez MD Primary Care Physician [phone] Encounter [facility] Date(s): 10/15/20 - 11/28/[address] [address] Attending Physician: Ijeoma FLOWERS, Aspen Hdez Admitting Physician: Ijeoma FLOWERS, Aspen Hdez Referring Physician: Ijeoma FLOWERS, Aspen Hdez Allergies, Adverse Reactions, Alerts Substance Reaction Severity [...] 23-valent vaccine 5 07/31/10 Recorded 1Location History: [place], [place] 2Admin Note: done @ dr jones office 3Location History: [facility] 4Location History: [facility] 5Location History: [facility] Medications alendronate 70 mg oral [...] Replace Required Details, Route to Pharmacy Electronically, [facility] #[id number]... Start Date: 01/31/20 Status: Ordered folic acid 1 mg oral tablet 1 mg, 1, tablet, By Mouth, Daily, # 30 tablet, Refills 3, Tot. Refills 3, Maintenance, 01/18/20 10:43:00 EDT, Route to Pharmacy Electronically, [facility] #[id number], 170, cm, 12/13/19 13:51:00EST, Height, 56.3, kg, 11/24/19 22:58:00 EST, Dry W... Start Date: 01/18/20 Status: Ordered furosemide 20 mg oral tablet 1, tablet, By Mouth, Daily, PRN, # 90 tablet, Refills 0, Tot. Refills 0, Maintenance, NEEDED FORLEG SWELLING, 04/19/20 15:50:00 EDT, Route to Pharmacy Electronically, [facility] #[id number],170, cm, 12/13/19 13:51:00 EST, Height, 56.3, kg, 0... Start Date: 04/19/20 Status: Ordered gabapentin 300 mg oral capsule 600 mg, 2, capsule, By Mouth, 3 times a day, # 180 capsule, Refills 3, Tot. Refills 3, Maintenance,10/01/20 15:48:00 EST, Route to Pharmacy Electronically, [facility] #[id number], 170, cm, 12/13/19 13:51:00 EST, Height, 56.3, kg, 11/24/19 22:58:... Start Date: 10/01/20 Status: Ordered gabapentin 300 mg oral capsule See Instructions, TAKE 2 CAPSULES BY MOUTH three times per day, # 180 capsule, Refills 1, Instructions Replace Required Details, Route to Pharmacy Electronically, [facility] #[id number], 170, cm, 12/13/19 13:51:00 EST, Height, 56.3, [...] Refills, Maintenance, 01/29/20 10:50:00 EDT, XL Tablet, [facility] #[id number], 170, cm, 12/13/19 13:51:00 EST, Height, 56.3, [...] 3 Refills, Maintenance, 11/21/20 10:53:00 EST, Tablet, [facility] #[id number], 170, cm, 10/02/20 10:06:00 EST, Height, 56.3, [...] 6 Refills, Maintenance, 06/17/20 16:11:00 EDT, Aerosol, [facility] #[id number], 170, cm, 12/13/19 13:51:00 EST, Height, 56.3, kg, 11/24/19 22:58:00 EST, Dry Weight Start Date: 06/17/20 Stop Date: 01/13/21 Status: Ordered Ventolin HFA 108 mcg/inh inhalation aerosol with adapter 2 puffs, Inhalation, 4 times a day, PRN for wheezing, # 1 each, 0 Refills, Maintenance, 10/02/20 10:55:00 EST, Aerosol, [facility]/pharmacy #4471, 170, cm, 10/02/20 10:06:00 EST, Height, 56.3, kg, 11/24/19 22:58:00 EST, Dry Weight Start Date: 10/02/20 Status: Ordered Vitamin B1 100 mg oral tablet 1, tablet, By Mouth, Daily, # 30 tablet, Refills 11, Tot. Refills 0, Acute, 12/18/19 14:10:00 EST, Route to Pharmacy Electronically, [facility] #[id number], 170, cm, 12/13/19 13:51:00 EST, Height, 56.3, kg, 11/24/19 22:58:00 EST, Dry Weight Start Date: 12/18/19 Status: Ordered Zofran 4 mg oral tablet 1 tablet = 4 mg, By Mouth, 3 times a day, PRN nausea, # 30 tablet, 0 Refills, Maintenance, 209:17:00 EDT, Tablet, [facility] #[id number], 170, cm, 12/13/19 13:51:00 EST, Height, 56.3, [...]
--- OUTSIDE RECORDS SUMMARY | 2023-08-21 08:38 | XMS_ITS | Continuity of Care Document ---
Author Name Unknown Organization [facility] Address [address] [place] [address]- Care Team Providers Care Transport Tank Technician Name Role Phone Graciela Nunez MD Primary Care Physician [phone] Encounter [facility] Date(s): 04/28/23 - 05/28/23 [facility] [address] [place], [place] [address] Allergies, Adverse Reactions, Alerts Substance Reaction Severity Status codeine Rash Nausea Moderate Active sulfADIAZINE Rash Moderate Active morphine respiratory depression Activ e Lyrica increased depression Active Immunizations Given and Recorded Vaccine Date Status Refusal Reason influenza virus vaccine, inactivated 1 10/09/21 Gi ike influenza virus vaccine, inactivated 2 10/20/17 Re corded influenza virus vaccine, inactivated 08/03/16 Duog rded influenza virus vaccine, inactivated 3 09/19/15 [...] 23-valent vaccine 6 07/31/10 Recorded 1Result Comment: [id number] given w/out incident 2Location History: [place], [place] 3Admin Note: done @ dr jones office 4Location History: [facility] 5Location History: [facility] 6Location History: [facility] Medications albuterol-ipratropium 3 mg-0.5 mg/3 [...] 15:31:00 EDT, Route to Pharmacy Electronically, [facility]/pharmacy #[id number], Partial fill upon patient request if the [...] A DAY NEEDED FOR CONSTIPATION. FILLED AT [facility] Start Date: 03/18/23 Status: Ordered folic acid 1 mg oral tablet 1 mg, 1, tablet, By Mouth, Daily, # 30 tablet, Refills 11, Tot. Refills 11, Maintenance, 12/03/22 9:01:00 EST, Route to Pharmacy Electronically, [facility]/pharmacy #[id number], 170, cm, 02/04/22 11:19:00 EDT, Height, 44.1, kg, 12/20/21 16:05:00 EST, Dry Weight Start Date: 12/03/22 Status: Ordered gabapentin 300 mg oral capsule 2, capsule, By Mouth, 3 times a day, # 180 capsule, Refills 5, Tot. Refills 5, Maintenance, 08/13/22 13:03:00 EDT, Route to Pharmacy Electronically, [facility]/pharm[facility] #[id number], 170, cm, 02/04/22 11:19:00 EDT, [...] 06/01/23 15:30:00 EDT, 05/25/23 15:30:00 EDT, Tablet, [facility]/pharmacy #44... Start Date: 05/25/23 Stop Date: [...] Refills, Maintenance, 12/16/22 9:12:00 EST, Capsule, [facility]/pharmacy #[id number], Partial fill upon patient request [...] Refills, Maintenance, 10/02/20 10:55:00 EST, Aerosol, [facility]/pharmacy #[id number], 170, cm, 10/02/20 10:06:00 EST, Height, 56.3, kg, 11/24/19 22:58:00 EST, Dry Weight Start Date: 10/02/20 Status: Ordered Vitamin D3 1000 intl units oral capsule 1 capsule = 25 mcg, By Mouth, Daily, # 30 capsule, 11 Refills, Maintenance, 12/03/22 9:00:00 EST, Capsule, [facility] #7811, Partial fill upon patient request if the [...] Personnel Name: Milena ORTIZ, Morgan Hancock Position: [facility] Renal MD Member Role: Lifetime Consulting Physician Address: Address: [address] [place] [address] Name: Graciela Nunez MD Position: [facility] Physician - Primary Care Member Role: PCP Address: Address: [address] [place] [address] Name: Maryam Camara RN Position: [facility] RN Member Role: Primary Care Nurse Name: Josemanuel Hawkins RN Position: [facility] RN Member Role: Primary Care Nurse Name: Rylie Francois RN Position: [facility] RN Member Role: Primary Care Nurse [...] Care Nurse Name: Romeo Reid MD Position: [facility] Renal MD Member Role: Lifetime Consulting Physician Address: Address: [address] [place] [address] [address] [facility], [place] [address]- Name: Olga Valladares RN Position: S RN Member Role: Primary Care Nurse Name: Ruby Alexandre RN Position: S RN Member Role: Primary Care Nurse Address: Address: [address] [place] [address]- Name: Celso Lawson MD Position: [facility] Renal MD Member Role: Lifetime Consulting Physician Address: Address: [address] [place] [address] [facility] [address] Name: Alyssa Camacho RN Position: S RN Member Role: Primary Care Nurse Name: Keely Pascal RN Position: S RN Member Role: Primary Care Nurse Name: Chloe Fisher LPN Position: S RN Member Role: Primary Care Nurse Care Team Related Persons Name: LAZARUS OSBORNE Address: [place] [address] Name: KAVON NICOLE Address: home [address] [place] [address] Name: PT, STATES NONE
--- OUTSIDE RECORDS SUMMARY | 2023-08-21 08:39 | XMS_ITS | Continuity of Care Document ---
Author Name Unknown Organization [facility] Address [address] [place] [address]- Care Team Providers Care Shift Stacker Name Role Phone Graciela Nunez MD Primary Care Physician [phone] Encounter [facility] [place] [facility] Date(s): 02/10/22 - 03/12/22 [facility] [address] [place], [place] [address] Allergies, Adverse Reactions, Alerts [...] 23-valent vaccine 6 07/31/10 Recorded 1Result Comment: [id number] given w/out incident 2Location History: [place], [place] 3Admin Note: done @ dr jones office 4Location History: [facility] 5Location History: [facility] [...] 02/04/22 11:02:00 EDT, Route to Pharmacy Electronically, [facility] #[id number], change in dosage, 170, cm, 02/04/22 10:40:00 EDT, Height, 44.1, kg, 02... Start Date: 02/04/22 Status: Ordered calcium (as carbonate)-vitamin D 500 mg-400 intl units oral tablet 1 tablet, By Mouth, 2 times a day, calcium 500/vitamin d 400 iu twice daily, # 60 tablet, 6 Refills, Maintenance, 02/11/22 10:15:00 EDT, Tablet, [facility] #[id number], Partial fill upon patientrequest if the prescription is for a schedule II op... Start Date: 02/11/22 Status: Ordered Colace sodium 100 mg oral capsule 100 mg, 1, capsule, By Mouth, 2 times a day, PRN, # 60 capsule, Refills 5, Tot. Refills 5, Maintenance, for constipation, 02/04/22 11:08:00 EDT, Route to Pharmacy Electronically, [facility][id number], prefers gel formulation, 170, cm, 02/04/22... Start Date: 02/04/22 Status: Ordered diltiazem 180 mg/24 hours oral capsule, extended release 180 mg, 1, capsule, By Mouth, Daily, # 30 capsule, Refills 0, Tot. Refills 0, Maintenance, 11/06/2209:09:00 EST, Route to Pharmacy Electronically, [facility] #[id number], Partial fill upon patient request if the prescription is for a schedule II... Start Date: 11/06/21 Status: Ordered Flonase 50 mcg/inh nasal spray 1 sprays, Nares, Both, Daily in AM, # 16 Gm, 4 Refills, Maintenance, 12/03/21 12:34:00 EST, [place], [facility] #[id number], Partial fill upon patient request if the prescription is for a scheduleII opioid drug., 1 sprays Nares, Both Daily in AM,... Start Date: 12/03/21 Status: Ordered folic acid 1 mg oral tablet 1 mg, 1, tablet, By Mouth, Daily, # 30 tablet, Refills 11, Tot. Refills 11, Maintenance, 02/25/22 16:15:00 EDT, Route to Pharmacy Electronically, [facility] #[id number], 170, cm, 02/04/22 11:19:00 EDT, Height, 44.1, [...] 02/09/22 15:13:00 EDT, Route to Pharmacy Electronically, [facility] #[id number], 170, cm, 02/04/22 11:19:00 EDT, Height, 44.1, kg, 12/20/21 16:05:00 EST,... Start Date: 02/09/22 Status: Ordered Hair, Skin & Nails 5 mg oral capsule 1 capsule = 5 mg, By Mouth, Daily, # 90 capsule, 3 Refills, Maintenance, 02/19/22 12:29:00 EDT, [facility] #[id number], Partial fill upon patient request if the prescription is for a schedule IIopioid drug., 1 capsule By Mouth Daily, 170, cm, 04... Start Date: 02/19/22 Status: Ordered lactulose 10 gm/15 ml oral syrup 15 mL = 10 Gm, By Mouth, Every 72 hours, PRN as needed for constipation, # 300 mL, 5 Refills, Maintenance, 01/05/22 10:50:00 EST, Syrup, [facility] #13329, Partial fill upon patient requestif the prescription is for a schedule II opioid ivonne... Start Date: 01/05/22 Status: Ordered LORazepam 0.5 mg oral tablet 1 tablet = 0.5 mg, By Mouth, 3 times a day, # 60 tablet, 3 Refills, Maintenance, 02/04/22 11:05:00 EDT, Tablet, [facility] #[id number], Partial fill upon patient request if the [...] 10/22/21 15:09:00 EST, Route to Pharmacy Electronically, [facility] #[id number] Tablet, Partial fill upon patient request... Start [...] Refills, Maintenance, 02/26/21 15:47:00 EDT, ER Tablet, [facility] #[id number], Partial fill upon patient requestif the prescription is for a schedule II opioid ivonne... Start Date: 02/26/21 Status: Ordered Ventolin HFA 108 mcg/inh inhalation aerosol with adapter 2 puffs, Inhalation, 4 times a day, PRN for wheezing, # 1 each, 0 Refills, Maintenance, 10/02/20 10:55:00 EST, Aerosol, [facility]/pharmacy #4471, 170, cm, 10/02/20 10:06:00 EST, Height, 56.3, kg, 11/24/19 22:58:00 EST, Dry Weight Start Date: 10/02/20 Status: Ordered Vitamin D3 1000 intl units oral capsule 1 capsule = 25 mcg, By Mouth, Daily, # 30 capsule, 11 Refills, Maintenance, 12/02/21 10:55:00 EST, Capsule, [facility] #[id number], Partial fill upon patient request if the [...]
--- OUTSIDE RECORDS SUMMARY | 2023-08-21 08:39 | XMS_ITS | Continuity of Care Document ---
Author Name Unknown Organization [facility] Address [address] [place] [address]- Care Team Providers Care Jig Operator Name Role Phone Graciela Nunez MD Primary Care Physician Encounter [facility] Date(s): 05/28/23 - 06/27/23 [facility] [address] [place], [place] [address] Allergies, Adverse Reactions, Alerts Substance Reaction [...] 23-valent vaccine 6 07/31/10 Recorded 1Result Comment: [id number] given w/out incident 2Location History: [place], [place] 3Admin Note: done @ dr jones office 4Location History: [facility] 5Location History: [facility] 6Location History: [facility] Medications albuterol-ipratropium 3 mg-0.5 [...] 05/25/23 15:31:00 EDT, Route to Pharmacy Electronically, [facility]/pharmacy #[id number], Partial fill upon patient request if the [...] A DAY NEEDED FOR CONSTIPATION. FILLED AT [facility] Start Date: 03/18/23 Status: Ordered folic acid 1 mg oral tablet 1 mg, 1, tablet, By Mouth, Daily, # 30 tablet, Refills 11, Tot. Refills 11, Maintenance, 12/03/22 9:01:00 EST, Route to Pharmacy Electronically, [facility]/pharmacy #[id number], 170, cm, 02/04/22 11:19:00 EDT, Height, 44.1, kg, 12/20/21 16:05:00 EST, Dry Weight Start Date: 12/03/22 Status: Ordered gabapentin 300 mg oral capsule 2, capsule, By Mouth, 3 times a day, # 180 capsule, Refills 5, Tot. Refills 5, Maintenance, 08/13/22 13:03:00 EDT, Route to Pharmacy Electronically, [facility]/pharmacy #[id number], 170, cm, 02/04/22 11:19:00 EDT, Height, 44.1, kg, 12/20/21 16:05:00 EST, Dry Weight Start Date: 08/13/22 Status: Ordered hydrOXYzine hydrochloride 10 mg oral tablet 3 tablet = 30 mg, By Mouth, 3 times a day, PRN NEEDED FOR ANXIETY, # 270 tablet, 3 Refills, Maintenance, 03/01/23 12:03:00 EDT, [facility]/pharmacy #[id number], 170, cm, 02/04/22 [...] 3 Refills, Maintenance, 12/16/22 9:12:00 EST, Capsule, [facility]/pharmacy #[id number], Partial fill upon [...] 30 capsule, 0 Refills, Maintenance, 06/24/23 19:50:00 EDT,[facility]/pharmacy #[id number], Partial fill upon [...] Team Personnel Name: Morgan Abbott MD Position: [facility] Renal MD Member Role: Lifetime Consulting Physician Address: Address: [address] [place] [address], [facility] [address] [place] [address]- Name: Graciela Nunez MD Position: [facility] Physician - Primary Care Member Role: PCP Address: Address: [address] [place] [address]- Name: Maryam Camara RN Position: S RN [...] Care Nurse Name: Angelica Montemayor RN Position: [facility] RN Member Role: Primary Care Nurse Name: Paty Ventura RN Position: S RN Member Role: Primary Care Nurse Name: Ninfa Soto RN Position: [facility] RN Member Role: Primary Care Nurse Name: Romeo Reid MD Position: [facility] Renal MD Member Role: Lifetime Consulting Physician Address: Address: [address] [place] [address] [facility] [place] [address]- Name: Olga Valladares RN Position: [facility] RN Member Role: Primary Care Nurse Name: Ruby Alexandre RN Position: [facility] RN Member Role: Primary Care Nurse Address: Address: [address] [place] [address]- Name: Celso Lawson MD Position: [facility] Renal MD Member Role: Lifetime Consulting Physician Address: Address: [address] [place] [address] [facility] [place] [address]- Name: Alyssa Camacho RN Position: S RN Member Role: Primary Care Nurse Name: Keely Pascal RN Position: S RN Member Role: Primary Care Nurse Name: Chloe Fisher LPN Position: S RN Member Role: Primary Care Nurse Care Team Related Persons Name: LAZARUS OSBORNE Address: [place] [address] Name: KAVON NICOLE Address: home [address] [place] [id number] Name: , [facility]
--- OUTSIDE RECORDS SUMMARY | 2023-08-21 08:39 | XMS_ITS | Continuity of Care Document ---
Author Name Unknown Organization [facility] Address [address] [place] [address]- Care Team Providers Care Justice Professor Name Role Phone Graciela Nunez MD Primary Care Physician [phone] Encounter [facility] Date(s): 06/23/23 - 07/23/23 [facility] [address] [place], [place] [address] Allergies, Adverse Reactions, Alerts Substance Reaction Severity [...] 23-valent vaccine 6 07/31/10 Recorded 1Result Comment: [id number] given w/out incident 2Location History: [place], [place] 3Admin Note: done @ dr jones office 4Location History: [facility] 5Location History: [facility] 6Location History: [facility] Medications acetaminophen 325 mg oral [...] 05/25/23 15:31:00 EDT, Route to Pharmacy Electronically, [id number], Partial fill upon patient request if the [...] 12/03/22 9:01:00 EST, [id number] 170, cm, 02/04/22 11:19:00 EDT, Height, 44.1, kg, 12/20/21 16:05:00 EST, Dry Weight Start Date: 12/03/22 Status: Ordered gabapentin 300 mg oral capsule 2, capsule, By Mouth, 3 times a day, # 180 capsule, Refills 5, Tot. Refills 5, Maintenance, 08/13/22 13:03:00 EDT, Route to Pharmacy Electronically, [facility]/pharmacy #[id number], 170, cm, 02/04/22 11:19:00 EDT, Height, 44.1, kg, 12/20/21 16:05:00 EST, Dry Weight Start Date: 08/13/22 Status: Ordered hydrOXYzine hydrochloride 10 mg oral tablet 3 tablet = 30 mg, By Mouth, 3 times a day, PRN NEEDED FOR ANXIETY, # 270 tablet, 3 Refills, Maintenance, 03/01/23 12:03:00 EDT, [facility]/pharmacy #[id number], 170, cm, 02/04/22 [...] 3 Refills, Maintenance, 12/16/22 9:12:00 EST, Capsule, [id number], Partial fill upon [...] 30 capsule, 0 Refills, Maintenance, 06/24/23 19:50:00 EDT,[id number], Partial fill upon patient request if [...] tablet, 0 Refills, Maintenance, 06/23/23 17:30:00 EDT, [facility]/pharmacy #[id number], 170, cm, 04/19/23 7:05:00 EDT, [...] Care Nurse Name: Belgica Mckeon RN Position: [facility] RN Member Role: Primary Care Nurse Name: Morgan Abbott MD Position: [facility] Renal Member Role: Lifetime Consulting Physician Address: Address: [address] [place] [address]- Name: Bernice Molina RN Position: S RN Member Role: Primary Care Nurse Name: Graciela Nunez MD Position: [facility] Physician - Primary Care Member Role: PCP Address: Address: [address] [place] [address]- Name: Maryam Camara RN Position: S RN Member Role: Primary Care Nurse Name: Josemanuel Hawkins RN Position: S RN Member Role: Primary Care Nurse Name: Milana Garland RN Position: [facility] RN Member Role: Primary Care Nurse Name: Mckay Esquivel MD Position: [facility] Renal MD Member Role: Lifetime Consulting Physician Address: Address: [address] [place] [address]- Name: Rylie Francois RN Position: S RN Member Role: Primary Care Nurse Name: Luisa Storey RN Position: S RN Member Role: Primary Care Nurse Name: Elizabeth Ferris RN Position: [facility] RN Member Role: Primary Care Nurse Name: Alyssa Johnson RN Position: [facility] RN Member Role: Primary Care Nurse Name: Anabela Beavers Position: [facility] RN Member Role: Primary Care Nurse Name: Tracey Chavez Position: [facility] RN Member Role: Primary Care Nurse Name: Sandy Alba RN Position: [facility] RN Member Role: Primary Care Nurse Name: Jose Sebastian RN Position: [facility] RN Member Role: Primary Care Nurse Name: Angelica Montemayor RN Position: [facility] RN Member Role: Primary Care Nurse Name: Paty Ventura RN Position: [facility] RN Member Role: Primary Care Nurse Name: Ninfa Soto RN Position: [facility] RN Member Role: Primary Care Nurse Name: Romeo Reid MD Position: [facility] Renal MD Member Role: Lifetime Consulting Physician Address: Address: [address] [place] [address] [facility] [place] [address]- Name: Ogla Valladares RN Position: [facility] RN Member Role: Primary Care Nurse Name: Karyn Quezada RN Position: [facility] RN Member Role: Primary Care Nurse Name: Ruby Alexandre RN Position: [facility] RN Member Role: Primary Care Nurse Address: Address: [address] [place] [address]- Name: Celso Lawson MD Position: [facility] Renal MD Member Role: Lifetime Consulting Physician Address: Address: [address] [place] [address] [facility] [place] [address]- Name: Alyssa Camacho RN Position: [facility] RN Member Role: Primary Care Nurse Name: Keely Pascal RN Position: S RN Member Role: Primary Care Nurse Name: Chloe Fisher LPN Position: [facility] RN Member Role: Primary Care Nurse Care Team Related Persons Name: LAZARUS OSBORNE Address: [place] [address] Name: KAVON NICOLE Address: home [address] [place] [address] Name: , [facility]
--- OUTSIDE RECORDS SUMMARY | 2023-08-21 08:39 | XMS_ITS | Continuity of Care Document ---
Author Name Unknown Organization [facility] Address [address] [place] [address]- Care Team Providers Care Office Messenger Helper Name Role Phone Graciela Nunez MD Primary Care Physician [phone] Encounter [facility] Date(s): 05/26/23 - 06/25/23 [facility] [address] [place], [place] [address] Allergies, Adverse [...] 23-valent vaccine 6 07/31/10 Recorded 1Result Comment: [id number] given w/out incident 2Location History: [place], [place] 3Admin Note: done @ dr jones office 4Location History: [facility] 5Location History: [facility] 6Location History: [facility] Medications albuterol-ipratropium 3 mg-0.5 mg/3 ml [...] 05/25/23 15:31:00 EDT, Route to Pharmacy Electronically, [facility]/pharmacy #[id number], Partial fill upon patient request if the [...] A DAY NEEDED FOR CONSTIPATION. FILLED AT [employer] [employer] Start Date: 03/18/23 Status: Ordered folic acid 1 mg oral tablet 1 mg, 1, tablet, By Mouth, Daily, # 30 tablet, Refills 11, Tot. Refills 11, Maintenance, 12/03/22 9:01:00 EST, Route to Pharmacy Electronically, [facility]/pharmacy #[id number], 170, cm, 02/04/22 11:19:00 EDT, Height, 44.1, kg, 12/20/21 16:05:00 EST, Dry Weight Start Date: 12/03/22 Status: Ordered gabapentin 300 mg oral capsule 2, capsule, By Mouth, 3 times a day, # 180 capsule, Refills 5, Tot. Refills 5, Maintenance, 08/13/22 13:03:00 EDT, Route to Pharmacy Electronically, [facility]/pharmacy #[id number], 170, cm, 02/04/22 11:19:00 EDT, Height, 44.1, kg, 12/20/21 16:05:00 EST, Dry Weight Start Date: 08/13/22 Status: Ordered hydrOXYzine hydrochloride 10 mg oral tablet 3 tablet = 30 mg, By Mouth, 3 times a day, PRN NEEDED FOR ANXIETY, # 270 tablet, 3 Refills, Maintenance, 03/01/23 12:03:00 EDT, [facility]/pharmacy #[id number], 170, cm, 02/04/22 11:19:00 [...] Refills, Maintenance, 12/16/22 9:12:00 EST, Capsule, [facility]/pharmacy #[id number], Partial fill upon patient [...] 30 capsule, 0 Refills, Maintenance, 06/24/23 19:50:00 EDT,[facility]/pharmacy #[id number], Partial fill upon patient [...] Team Personnel Name: Morgan Abbott MD Position: [facility] Renal MD Member Role: Lifetime Consulting Physician Address: Address: [address] [place] [address], [facility] [address] [place] [address]- Name: Graciela Nunez MD Position: [facility] Physician - Primary Care Member Role: PCP Address: Address: [address] [place] [address]- Name: Maryam Camara RN Position: S RN [...] Care Nurse Name: Angelica Montemayor RN Position: [facility] RN Member Role: Primary Care Nurse Name: Paty Ventura RN Position: S RN Member Role: Primary Care Nurse Name: Ninfa Soto RN Position: [facility] RN Member Role: Primary Care Nurse Name: Romeo Reid MD Position: [facility] Renal MD Member Role: Lifetime Consulting Physician Address: Address: [address] [place] [address] [facility] [place] [address]- Name: Olga Valladares RN Position: [facility] RN Member Role: Primary Care Nurse Name: Ruby Alexandre RN Position: [facility] RN Member Role: Primary Care Nurse Address: Address: [address] [place] [address]- Name: Celso Lawson MD Position: [facility] Renal MD Member Role: Lifetime Consulting Physician Address: Address: [address] [place] [address] [facility] [place] [address]- Name: Alyssa Camacho RN Position: S RN Member Role: Primary Care Nurse Name: Keely Pascal RN Position: S RN Member Role: Primary Care Nurse Name: Chloe Fisher LPN Position: S RN Member Role: Primary Care Nurse Care Team Related Persons Name: LAZARUS OSBORNE Address: [place] [address] Name: KAVON NICOLE Address: home [address] [place] [address] Name: , [facility]
--- OUTSIDE RECORDS SUMMARY | 2023-08-21 08:39 | XMS_ITS | Continuity of Care Document ---
Author Name Unknown Organization [facility] Address [address] [place] [address]- Care Team Providers Care Advertising Editor Name Role Phone Graciela Nunez MD Primary Care Physician [place] [facility] Date(s): 06/21/23 - 07/21/23 [facility] [address] [place], [place] [address] Allergies, Adverse [...] 23-valent vaccine 6 07/31/10 Recorded 1Result Comment: [id number] given w/out incident 2Location History: [place], [place] 3Admin Note: done @ dr jones office 4Location History: [facility] 5Location History: [facility] 6Location History: [facility] Medications acetaminophen 325 mg oral [...] 15:31:00 EDT, Route [id number], Partial fill upon patient request [...] for constipation Start Date: 03/18/23 Status: Ordered Dulcolax 10 mg rectal suppository [...] 12/03/22 9:01:00 EST, Route to Pharmacy Electronically, [facility]/pharmacy #[id number], 170, cm, 02/04/22 11:19:00 EDT, Height, 44.1, kg, 12/20/21 16:05:00 EST, Dry Weight Start Date: 12/03/22 Status: Ordered gabapentin 300 mg oral capsule 2, capsule, By Mouth, 3 times a day, # 180 capsule, Refills 5, Tot. Refills 5, Maintenance, 08/13/22 13:03:00 EDT, Route to Pharmacy Electronically, [facility]/pharmacy #[id number], 170, cm, 02/04/22 11:19:00 EDT, Height, 44.1, kg, 12/20/21 16:05:00 EST, Dry Weight Start Date: 08/13/22 Status: Ordered hydrOXYzine hydrochloride 10 mg oral tablet 3 tablet = 30 mg, By Mouth, 3 times a day, PRN NEEDED FOR ANXIETY, # 270 tablet, 3 Refills, Maintenance, 03/01/23 12:03:00 EDT, [facility]/pharmacy #[id number], 170, cm, 02/04/22 11:19:00 [...] 3 Refills, Maintenance, 12/16/22 9:12:00 EST, Capsule, [facility]/pharmacy #[id number], Partial fill upon patient [...] 30 capsule, 0 Refills, Maintenance, 06/24/23 19:50:00 EDT,[facility]/pharmacy #[id number], Partial fill upon patient request if the [...] tablet, 0 Refills, Maintenance, 06/23/23 17:30:00 EDT, [facility]/pharmacy #[id number], 170, cm, 04/19/23 7:05:00 EDT, [...] Team Personnel Name: Herminia Parker RN Position: [facility] RN Member Role: Primary Care Nurse Name: Morgan Abbott MD Position: [facility] Renal MD Member Role: Lifetime Consulting Physician Address: Address: [address] [place] [address]- Name: Bernice Molina RN Position: [facility] RN Member Role: Primary Care Nurse Name: Graciela Nunez MD Position: [facility] Physician - Primary Care Member Role: PCP Address: Address: [address] [place] [address]- Name: Maryam Camara RN Position: [facility] RN Member Role: Primary Care Nurse Name: Josemanuel Hawkins RN Position: S RN Member Role: Primary Care Nurse Name: Milana Garland RN Position: S RN Member Role: Primary Care Nurse Name: Mckay Esquivel MD Position: [facility] Renal MD Member Role: Lifetime Consulting Physician Address: Address: [address] [place] [address], [place] [address]- Name: Rylie Francois RN Position: S RN [...] Care Nurse Name: Romeo Reid MD Position: [facility] Renal MD Member Role: Lifetime Consulting Physician Address: Address: [address] [place] [address] [facility] [address] Name: Olga Valladares RN Position: [facility] RN Member Role: Primary Care Nurse Name: Karyn Quezada RN Position: S RN Member Role: Primary Care Nurse Name: Ruby Alexandre RN Position: S RN Member Role: Primary Care Nurse Address: Address: [address] [place] [address]- Name: Celso Lawson MD Position: [facility] Renal MD Member Role: Lifetime Consulting Physician Address: Address: [address] [place] [address] [facility] [address] Name: Alyssa Camacho RN Position: S RN Member Role: Primary Care Nurse Name: Keely Pascal RN Position: S RN Member Role: Primary Care Nurse Name: Chloe Fisher LPN Position: S RN Member Role: Primary Care Nurse Care Team Related Persons Name: LAZARUS OSBORNE Address: [place] [address] Name: KAVON NICOLE Address: home [address] [place] [address] Name: , STATES NONE
--- OUTSIDE RECORDS SUMMARY | 2023-08-21 08:39 | XMS_ITS | Continuity of Care Document ---
Author Name Unknown Organization [facility] Address [address] [place] [address]- Care Team Providers Care Mover Name Role Phone Graciela Nunez MD Primary Care Physician Encounter [facility] Date(s): 12/17/21 - 12/24/21 [facility] [address] [place], [place] [address] Encounter Diagnosis AF (atrial fibrillation)(Discharge Diagnosis) - 12/17/21 Chronic respiratory failure with hypoxia(Discharge Diagnosis) - 12/17/21 End stage COPD(Discharge Diagnosis) - 12/17/21 Thoracic compression fracture(Discharge Diagnosis) - 12/17/21 Rectal bleed(Discharge Diagnosis) - 12/17/21 Anxiety(Discharge Diagnosis) - 12/17/21 Attending Physician: Graciela Nunez MD Allergies, Adverse [...] 01/28/21 Recorded SARS-CoV-2 (COVID-19) mRNA BNT-162b2 vac 3/9/21 Recorded tetanus/diphtheria/pertussis, acel(Tdap) 5 04/19/12 Recorded pneumococcal 23-valent vaccine 6 07/31/10 Recorded 1Result Comment: [id number] given w/out incident 2Location History: [place], [place] 3Admin Note: done @ dr jones office 4Location History: [facility] 5Location History: [facility] 6Location History: [facility] Medications aspirin 81 mg oral [...] 10/22/21 15:09:00 EST, Route to Pharmacy Electronically, [facility][id number], Partial fill upon patient request if the pr... Start Date: 10/22/21 Status: Ordered diltiazem 180 mg/24 hours oral capsule, extended release 180 mg, 1, capsule, By Mouth, Daily, # 30 capsule, Refills 0, Tot. Refills 0, Maintenance, 11/06/2209:09:00 EST, Route to Pharmacy Electronically, [facility] #[id number], Partial fill upon patient request if the prescription is for a schedule II... Start Date: 11/06/21 Status: Ordered Flonase 50 mcg/inh nasal spray 1 sprays, Nares, Both, Daily in AM, # 16 Gm, 4 Refills, Maintenance, 12/03/21 12:34:00 EST, [place], [facility] #[id number], Partial fill upon patient request if the prescription is for a scheduleII opioid drug., 1 sprays Nares, Both Daily in AM,... Start Date: 12/03/21 Status: Ordered folic acid 1 mg oral tablet 1 mg, 1, tablet, By Mouth, Daily, # 30 tablet, Refills 5, Tot. Refills 5, Maintenance, 01/31/21 16:35:00 EDT, Route to Pharmacy Electronically, [facility] #[id number], 170, cm, 10/02/20 10:06:00EST, Height, 56.3, kg, [...] 08/26/21 10:50:00 EDT, Route to Pharmacy Electronically, [facility] #[id number], 162.56, cm, 08/22/21 2:36:00 EDT, Height, 52.65, [...] Acute 01/10/22 10:26:00EST, 12/17/21 10:18:00 EST, Suspension, [facility] #[id number], Partial fill upon patient request if the prescription is for a schedule II opioid... Start Date: 12/17/21 Stop Date: 01/10/22 Status: Ordered nicotine 7 mg/24 hr transdermal film, extended release 1 patch, Topically, Daily, for 14 days, # 14 patch, 0 Refills, Acute 01/05/22 14:10:00 EST, 12/22/21 14:10:00 EST, Patch, [facility] #[id number], Partial fill upon patient request if the [...] 0 Refills, Maintenance, 12/22/21 14:25:00 EST, Tablet, [facility] #[id number], Partial fill upon patient requ... Start Date: [...] 10/22/21 15:09:00 EST, Route to Pharmacy Electronically, [facility] #[id number] Tablet, Partial fill upon patient request... Start [...] Refills, Maintenance, 02/26/21 15:47:00 EDT, ER Tablet, [facility] #[id number], Partial fill upon patient requestif the prescription [...] 11 Refills, Maintenance, 12/02/21 10:55:00 EST, Capsule, [facility] #[id number], Partial fill upon patient request if the [...] Service Informant AF (atrial fibrillation) Discharge Diagnosis 12/17/21 Chronic respiratory failure with hypoxia Discharge Diagnosis 12/17/21 End stage COPD Discharge Diagnosis 12/17/21 Thoracic compression fracture Discharge Diagnosis 12/17/21 Rectal bleed Discharge Diagnosis 12/17/21 Anxiety Discharge Diagnosis 12/17/21 Social History Social History Type Response Tobacco Other: now smoking 1 /2 pack per day. Sex
--- OUTSIDE RECORDS SUMMARY | 2023-08-21 08:39 | XMS_ITS | Continuity of Care Document ---
Author Name Unknown Organization [facility] Address [address] [place] [address]- Care Team Providers Care Surface Miner Name Role Phone Graciela Nunez MD Primary Care Physician [phone] [place] [facility] [place]22 [facility] [address] [place], [place] [address] Allergies, Adverse Reactions, Alerts [...] 23-valent vaccine 6 07/31/10 Recorded 1Result Comment: [id number] given w/out incident 2Location History: [place], [place] 3Admin Note: done @ dr jones office 4Location History: [facility] 5Location History: [facility] physicians [...] 3 Refills, Maintenance, 04/09/22 9:54:00 EDT, Tablet, [facility] #[id number], Partial fill upon patient request if the prescription is for a schedule II opioid drug., 1 tablet By Mouth Daily, 170, cm, 02/04... Start Date: 04/09/22 Status: Ordered baclofen 10 mg oral tablet 10 mg, 1, tablet, By Mouth, Daily, PRN, # 14 tablet, Refills 2, Tot. Refills 2, Maintenance, Pain ,Moderate, 10/20/22 15:10:00 EST, Route to Pharmacy Electronically, [facility]/pharmacy #[id number], Partial fillupon patient request if the prescription is for a s... Start Date: 10/20/22 Stop Date: 12/01/22 Status: Ordered busPIRone 10 mg oral tablet 1, tablet, By Mouth, 3 times a day, # 270 tablet, Refills 1, Maintenance, 11/12/22 17:44:00 EST, Route to Pharmacy Electronically, [id number], 170, cm, 02/04/22 11:19:00 EDT, Height, 44.1, kg, 12/20/21 16:05:00 EST, Dry Weight Start Date: 11/12/22 Status: Ordered calcium (as carbonate)-vitamin D 500 mg-400 intl units oral tablet 1 tablet, By Mouth, 2 times a day, calcium 500/vitamin d 400 iu twice daily, # 60 tablet, 6 Refills, Maintenance, 02/11/22 10:15:00 EDT, Tablet, [facility] #[id number], Partial fill upon patientrequest if the prescription is for a schedule II op... Start Date: 02/11/22 Status: Ordered calcium-vitamin D 600 mg-400 intl units oral tablet 1 tablet, By Mouth, 2 times a day, # 60 tablet, 6 Refills, Maintenance, 05/15/22 16:21:00 EDT, Tablet, [facility] #[id number], Partial fill upon patient request if the prescription is for a schedule II opioid drug., 1 tablet By Mouth 2 times a da... Start Date: 05/15/22 Status: Ordered Colace sodium 100 mg oral capsule 100 mg, 1, capsule, By Mouth, 2 times a day, PRN, # 180 capsule, Refills 1, Tot. Refills 1, Maintenance, for constipation, 06/23/22 10:20:00 EDT, Route to Pharmacy Electronically, [facility]/pharmacy #[id number],prefers gel formulation, 170, cm, 02/04/22 11:19:00... Start Date: 06/23/22 Status: Ordered diltiazem 180 mg/24 hours oral capsule, extended release 180 mg, 1, capsule, By Mouth, Daily, # 30 capsule, Refills 0, Tot. Refills 0, Maintenance, 11/06/2209:09:00 EST, Route to Pharmacy Electronically, [facility] #[id number], Partial fill upon patient request if the prescription is for a schedule II... Start Date: 11/06/21 Status: Ordered Flonase 50 mcg/inh nasal spray 1 sprays, Nares, Both, Daily in AM, # 16 Gm, 4 Refills, Maintenance, 12/03/21 12:34:00 EST, [place], [facility] #[id number], Partial fill upon patient request if the prescription is for a scheduleII opioid drug., 1 sprays Nares, Both Daily in AM,... Start Date: 12/03/21 Status: Ordered folic acid 1 mg oral tablet 1 mg, 1, tablet, By Mouth, Daily, # 30 tablet, Refills 11, Tot. Refills 11, Maintenance, 02/25/22 16:15:00 EDT, Route to Pharmacy Electronically, [facility] #[id number], 170, cm, 02/04/22 11:19:00 EDT, Height, 44.1, [...] 08/13/22 13:03:00 EDT, Route to Pharmacy Electronically, [facility]/pharmacy #[id number], 170, cm, 02/04/22 11:19:00 EDT, Height, 44.1, kg, 12/20/21 16:05:00 EST, Dry Weight Start Date: 08/13/22 Status: Ordered Hair, Skin & Nails 5 mg oral capsule 1 capsule = 5 mg, By Mouth, Daily, # 90 capsule, 3 Refills, Maintenance, 02/19/22 12:29:00 EDT, [facility] #[id number], Partial fill upon patient request if the prescription is for a schedule IIopioid drug., 1 capsule By Mouth Daily, 170, cm, 04... Start Date: 02/19/22 Status: Ordered hydrOXYzine hydrochloride 10 mg oral tablet 1 TO 2 TABLETS, By Mouth, 2 times a day, PRN NEEDED FOR ANXIETY, # 360 tablet, 0 Refills, Maintenance, 11/13/22 16:22:00 EST, [facility] [id number], 170, cm, 02/04/22 11:19:00 EDT, Height, 44.1, kg, 12/20/21 16:05:00 EST, Dry Weight Start Date: 11/13/22 Status: Ordered lactulose 10 gm/15 ml oral syrup 15 mL = 10 Gm, By Mouth, Every 72 hours, PRN as needed for constipation, # 300 mL, 5 Refills, Maintenance, 03/19/22 14:45:00 EDT, Syrup, [id number], Partial fill upon patient requestif the prescription is for a schedule II opioid ivonne... Start Date: 03/19/22 Status: Ordered LORazepam 0.5 mg oral tablet 1 tablet = 0.5 mg, By Mouth, 3 times a day, # 60 tablet, 3 Refills, Maintenance, 07/08/22 17:11:00 EDT, Tablet, [facility]/pharmacy #[id number], Partial fill upon patient request if the prescription is for a schedule II opioid drug., 170, cm, 02/04/22 11:19:00 EDT... Start Date: 07/08/22 Status: Ordered LORazepam 0.5 mg oral tablet 1 tablet = 0.5 mg, By Mouth, 3 times a day, # 60 tablet, 1 Refills, Maintenance, 11/27/22 14:50:00 EST, Tablet, [facility]/pharmacy #[id number], Partial fill upon patient request if the prescription is for a schedule II opioid drug., 170, cm, 02/04/22 11:19:00 EDT... Start Date: 11/27/22 Status: Ordered Metoprolol Succinate ER 25 mg [...] 10/22/21 15:09:00 EST, Route to Pharmacy Electronically, [facility] #[id number] Tablet, Partial fill upon patient request... Start [...] Refills, Maintenance, 02/26/21 15:47:00 EDT, ER Tablet, [facility] #[id number], Partial fill upon patient requestif the prescription [...] 11 Refills, Maintenance, 12/02/21 10:55:00 EST, Capsule, [facility] #[id number], Partial fill upon patient request if the [...] Team Personnel Name: Angie Farmer RN Position: [facility] RN Member Role: Primary Care Nurse Name: Mogran Abbott MD Position: [facility] Renal MD Member Role: Lifetime Consulting Physician Address: Address: [address] [place] [address], [address] [address]- Name: Graciela Nunez MD Position: [facility] Primary Care Physician Member Role: PCP Address: Address: [address] [place] [id number]- Name: Luisa Storey RN Position: S RN Member Role: Primary Care Nurse Care Team Related Persons Name: LAZARUS OSBORNE Address: [place] [address] Name: KAVON NICOLE Address: home [address] [place] [id number] Name: PT, [facility]
--- OUTSIDE RECORDS SUMMARY | 2023-08-21 08:39 | XMS_ITS | Continuity of Care Document ---
Author Name Unknown Organization [facility] Address [address] [place] [address]- Care Team Providers Care Work From Home Name Role Phone Graciela Nunez MD Primary Care Physician [place] [facility] [place](s): 06/17/22 - 07/17/22 [facility] [address] [place], [place] [address] Allergies, Adverse Reactions, Alerts Substance Reaction [...] 23-valent vaccine 6 07/31/10 Recorded 1Result Comment: [id number] given w/out incident 2Location History: [place], [place] 3Admin Note: done @ dr jones office 4Location History: [facility] 5Location History: [facility] [...] 3 Refills, Maintenance, 04/09/22 9:54:00 EDT, Tablet, [facility] #[id number], Partial fill upon patient request if the prescription is for a schedule II opioid drug., 1 tablet By Mouth Daily, 170, cm, 02/04... Start Date: 04/09/22 Status: Ordered busPIRone 10 mg oral tablet 10 mg, 1, tablet, By Mouth, 3 times a day, # 90 tablet, Refills 1, Tot. Refills 1, Maintenance, 06/24/22 11:21:00 EDT, Route to Pharmacy Electronically, [facility]/pharmacy #[id number], new dosage, 170, cm, 02/04/22 11:19:00 EDT, Height, 44.1, kg, 12/20/21 16:05:0... Start Date: 06/24/22 Status: Ordered calcium (as carbonate)-vitamin D 500 mg-400 intl units oral tablet 1 tablet, By Mouth, 2 times a day, calcium 500/vitamin d 400 iu twice daily, # 60 tablet, 6 Refills, Maintenance, 02/11/22 10:15:00 EDT, Tablet, [facility] #[id number], Partial fill upon patientrequest if the prescription is for a schedule II op... Start Date: 02/11/22 Status: Ordered calcium-vitamin D 600 mg-400 intl units oral tablet 1 tablet, By Mouth, 2 times a day, # 60 tablet, 6 Refills, Maintenance, 05/15/22 16:21:00 EDT, Tablet, [facility] #[id number], Partial fill upon patient request if the prescription is for a schedule II opioid drug., 1 tablet By Mouth 2 times a da... Start Date: 05/15/22 Status: Ordered Colace sodium 100 mg oral capsule 100 mg, 1, capsule, By Mouth, 2 times a day, PRN, # 180 capsule, Refills 1, Tot. Refills 1, Maintenance, for constipation, 06/23/22 10:20:00 EDT, Route to Pharmacy Electronically, [facility]/pharmacy #[id number],prefers gel formulation, 170, cm, 02/04/22 11:19:00... Start Date: 06/23/22 Status: Ordered diltiazem 180 mg/24 hours oral capsule, extended release 180 mg, 1, capsule, By Mouth, Daily, # 30 capsule, Refills 0, Tot. Refills 0, Maintenance, 11/06/2209:09:00 EST, Route to Pharmacy Electronically, [facility] #[id number], Partial fill upon patient request if the prescription is for a schedule II... Start Date: 11/06/21 Status: Ordered Flonase 50 mcg/inh nasal spray 1 sprays, Nares, Both, Daily in AM, # 16 Gm, 4 Refills, Maintenance, 12/03/21 12:34:00 EST, [place], [facility] #[id number], Partial fill upon patient request if the prescription is for a scheduleII opioid drug., 1 sprays Nares, Both Daily in AM,... Start Date: 12/03/21 Status: Ordered folic acid 1 mg oral tablet 1 mg, 1, tablet, By Mouth, Daily, # 30 tablet, Refills 11, Tot. Refills 11, Maintenance, 02/25/22 16:15:00 EDT, Route to Pharmacy Electronically, [facility] #[id number], 170, cm, 02/04/22 11:19:00 EDT, Height, 44.1, [...] 02/09/22 15:13:00 EDT, Route to Pharmacy Electronically, [facility] #[id number], 170, cm, 02/04/22 11:19:00 EDT, Height, 44.1, kg, 12/20/21 16:05:00 EST,... Start Date: 02/09/22 Status: Ordered Hair, Skin & Nails 5 mg oral capsule 1 capsule = 5 mg, By Mouth, Daily, # 90 capsule, 3 Refills, Maintenance, 02/19/22 12:29:00 EDT, [facility] #[id number], Partial fill upon patient request if the prescription is for a schedule IIopioid drug., 1 capsule By Mouth Daily, 170, cm, 04... Start Date: 02/19/22 Status: Ordered hydrOXYzine hydrochloride 10 mg oral tablet 1-2 TABLETS, By Mouth, 2 times a day, PRN NEEDED FOR ANXIETY, # 60 tablet, 3 Refills, [facility] [id number], 170, cm, 02/04/22 11:19:00 EDT, Height, 44.1, kg, 12/20/21 16:05:00 EST, Dry Weight Start Date: 05/27/22 Status: Ordered lactulose 10 gm/15 ml oral syrup 15 mL = 10 Gm, By Mouth, Every 72 hours, PRN as needed for constipation, # 300 mL, 5 Refills, Maintenance, 03/19/22 14:45:00 EDT, Syrup, [facility] #[id number], Partial fill upon patient requestif the prescription is for a schedule II opioid ivonne... Start Date: 03/19/22 Status: Ordered LORazepam 0.5 mg oral tablet 1 tablet = 0.5 mg, By Mouth, 3 times a day, # 60 tablet, 3 Refills, Maintenance, 07/08/22 17:11:00 EDT, Tablet, [facility]/pharmacy #[id number], Partial fill upon patient request if the prescription is for a schedule II opioid drug., 170, cm, 02/04/22 11:19:00 EDT... Start Date: 07/08/22 Status: Ordered Metoprolol Succinate ER 25 mg [...] 10/22/21 15:09:00 EST, Route to Pharmacy Electronically, [email or web address] #[id number] Tablet, Partial fill upon patient request... Start [...] Refills, Maintenance, 02/26/21 15:47:00 EDT, ER Tablet, [facility] #[id number], Partial fill upon patient requestif the prescription is for a schedule II opioid ivonne... Start Date: 02/26/21 Status: Ordered Ventolin HFA 108 mcg/inh inhalation aerosol with adapter 2 puffs, Inhalation, 4 times a day, PRN for wheezing, # 1 each, 0 Refills, Maintenance, 10/02/20 10:55:00 EST, Aerosol, [facility]/pharmacy #[id number], 170, cm, 10/02/20 10:06:00 EST, Height, 56.3, kg, 11/24/19 22:58:00 EST, Dry Weight Start Date: 10/02/20 Status: Ordered Vitamin D3 1000 intl units oral capsule 1 capsule = 25 mcg, By Mouth, Daily, # 30 capsule, 11 Refills, Maintenance, 12/02/21 10:55:00 EST, Capsule, [facility] #[id number], Partial fill upon patient request if the [...] smoking 1 /2 pack per day. Sex Care Team Personnel Name: Graciela Nunez MD Address: [address] [place] [address]
--- OUTSIDE RECORDS SUMMARY | 2023-08-21 08:39 | XMS_ITS | Continuity of Care Document ---
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 Name Role Phone Graciela Nunez MD Primary Care Physician Encounter [facility] [place] Date(s): 07/29/20 - 08/05/20 [facility] [address] [place] [address]- [facility] Encounter Diagnosis Emphysema/COPD(Discharge Diagnosis) - 07/29/20 Anxiety(Discharge Diagnosis) - 07/29/20 Osteoporosis(Discharge Diagnosis) - 07/29/20 Breast pain(Discharge Diagnosis) - 07/29/20 Attending Physician: Graciela Nunez MD Allergies, Adverse [...] 23-valent vaccine 5 07/31/10 Recorded 1Location History: [place], [place] 2Admin Note: done @ dr jones office 3Location History: [facility] 4Location History: [facility] 5Location History: [facility] Medications alendronate 70 mg [...] EDT, Tablet Start Date: 07/29/20 Status: Ordered baclofen 10 mg oral tablet 10 mg, 1, tablet, By Mouth, Daily, PRN, # 14 tablet, Refills 0, Tot. Refills 0, Maintenance, as needed for muscle spasm, 07/18/20 12:59:00 EDT, Route to Pharmacy Electronically, [facility] #[id number], 170, cm, 12/13/19 13:51:00 EST, Height, 56.3... [...] Replace Required Details, Route to Pharmacy Electronically, [facility] #[id number]... Start Date: 01/31/20 Status: Ordered folic acid 1 mg oral tablet 1 mg, 1, tablet, By Mouth, Daily, # 30 tablet, Refills 3, Tot. Refills 3, Maintenance, 01/18/20 10:43:00 EDT, Route to Pharmacy Electronically, [facility] #[id number], 170, cm, 12/13/19 13:51:00EST, Height, 56.3, kg, 11/24/19 22:58:00 EST, Dry W... Start Date: 01/18/20 Status: Ordered furosemide 20 mg oral tablet 1, tablet, By Mouth, Daily, PRN, # 90 tablet, Refills 0, Tot. Refills 0, Maintenance, NEEDED FORLEG SWELLING, 04/19/20 15:50:00 EDT, Route to Pharmacy Electronically, [facility] #[id number],170, cm, 12/13/19 13:51:00 EST, Height, 56.3, kg, 0... Start Date: 04/19/20 Status: Ordered gabapentin 300 mg oral capsule See Instructions, TAKE 2 CAPSULES BY MOUTH EVERY MORNING, 1 CAPSULE MID DAY AND 2 CAPSULES EVERY NIGHT AT BEDTIME, # 150 capsule, Refills 1, Maintenance, Instructions Replace Required Details, Route to Pharmacy Electronically, [facility] #[id number]... Start Date: 01/19/20 Status: Ordered Home Blood Pressure Monitor See Instructions, # 1 Unknown, Maintenance, DX: Bradycardia, R00.1 low heart rate USE DAILY LIFETIME USE HEIGHT 170CM WEIGHT 56KG, 12/13/19 13:56:00 EST, Compound Start Date: 12/13/19 Status: Ordered LORazepam 1 mg oral tablet 1 tablet = 1 mg, By Mouth, Every other day, PRN as needed for anxiety, # 24 tablet, 0 Refills, Maintenance, 07/29/20 10:57:00 EDT, Tablet, [facility] #[id number], 170, cm, 12/13/19 13:51:00 EST,Height, 56.3, kg, 11/24/19 22:58:00 EST, Dry Weight Start Date: 07/29/20 Status: Ordered Metoprolol Succinate ER 25 mg oral tablet, extended release 1 tablet = 25 mg, By Mouth, Daily, # 90 tablet, 1 Refills, Maintenance, 01/29/20 10:50:00 EDT, XL Tablet, [facility] #[id number], 170, cm, 12/13/19 13:51:00 EST, Height, 56.3, [...] 6 Refills, Maintenance, 06/17/20 16:11:00 EDT, Aerosol, [facility] #[id number], 170, cm, 12/13/19 13:51:00 EST, Height, 56.3, kg, 11/24/19 22:58:00 EST, Dry Weight Start Date: 06/17/20 Stop Date: 01/13/21 Status: Ordered Ventolin HFA 108 mcg/inh inhalation aerosol with adapter 2 puffs, Inhalation, 4 times a day, PRN for wheezing, # 18 Gm, 6 Refills, Maintenance, 06/17/20 16:11:00 EDT, Aerosol, [facility] #[id number], 170, cm, 12/13/19 13:51:00 EST, Height, 56.3, kg, 11/24/19 22:58:00 EST, Dry Weight Start Date: 06/17/20 Stop Date: 01/13/21 Status: Ordered Vitamin B1 100 mg oral tablet 1, tablet, By Mouth, Daily, # 30 tablet, Refills 11, Tot. Refills 0, Acute, 12/18/19 14:10:00 EST, Route to Pharmacy Electronically, [facility] #[id number], 170, cm, 12/13/19 13:51:00 EST, Height, 56.3, kg, 11/24/19 22:58:00 EST, Dry Weight Start Date: 12/18/19 Status: Ordered Zofran 4 mg oral tablet 1 tablet = 4 mg, By Mouth, 3 times a day, PRN nausea, # 30 tablet, 0 Refills, Maintenance, :17:00 EDT, Tablet, [facility] #[id number], 170, cm, 12/13/19 13:51:00 EST, Height, 56.3, [...] pain(Confirmed) Active Emphysema/COPD(Confirmed) Active Raynaud's phenomenon(Confirmed) Active Diagnosis Diagnosis Type Effective Dates Health Status Cl inical Service Informant Emphysema/COPD Discharge Diagnosis 07/29/20 Anxiety Discharge Diagnosis 07/29/20 Osteoporosis Discharge Diagnosis 07/29/20 Breast pain Discharge Diagnosis 07/29/20 Social History Social History Type Response Smoking Status Current every day maria elena penn; Tobacco use times per day: smokes about 1.5 packs per day; entered on: 04/16/16 Sex
--- OUTSIDE RECORDS SUMMARY | 2023-08-21 08:39 | XMS_ITS | Continuity of Care Document ---
Author Name Unknown Organization [facility] Address [address] [place] [address]- Care Team Providers Care [employer] [place] [place] [place] Name Role Phone Graciela Nunez MD Primary Care Physician [phone] Encounter [facility] Date(s): 09/29/22 - 10/29/22 [facility] [address] [place], [place] [address] Allergies, Adverse Reactions, Alerts Substance [...] 23-valent vaccine 6 07/31/10 Recorded 1Result Comment: [id number] given w/out incident 2Location History: [place], [place] 3Admin Note: done @ dr jones office 4Location History: [facility] 5Location History: [facility] 6Location History: [facility] Medications aspirin 81 mg [...] 3 Refills, Maintenance, 04/09/22 9:54:00 EDT, Tablet, [facility] #[id number], Partial fill upon patient request if the prescription is for a schedule II opioid drug., 1 tablet By Mouth Daily, 170, cm, 06... Start Date: 04/09/22 Status: Ordered baclofen 10 mg oral tablet 10 mg, 1, tablet, By Mouth, Daily, PRN, # 14 tablet, Refills 2, Tot. Refills 2, Maintenance, Pain ,Moderate, 10/20/22 15:10:00 EST, Route to Pharmacy Electronically, [facility]/pharmacy #[id number], Partial fillupon patient request if the prescription is for a s... Start Date: 10/20/22 Stop Date: 12/01/22 Status: Ordered busPIRone 10 mg oral tablet 10 mg, 1, tablet, By Mouth, 3 times a day, # 90 tablet, Refills 3, Tot. Refills 3, Maintenance, 07/30/22 13:44:00 EDT, Route to Pharmacy Electronically, [facility]/pharmacy #[id number], new dosage, 170, cm, 02/04/22 11:19:00 EDT, Height, 44.1, kg, 12/20/21 16:05:0... Start Date: 07/30/22 Status: Ordered calcium (as carbonate)-vitamin D 500 mg-400 intl units oral tablet 1 tablet, By Mouth, 2 times a day, calcium 500/vitamin d 400 iu twice daily, # 60 tablet, 6 Refills, Maintenance, 02/11/22 10:15:00 EDT, Tablet, [facility] #[id number], Partial fill upon patientrequest if the prescription is for a schedule II op... Start Date: 02/11/22 Status: Ordered calcium-vitamin D 600 mg-400 intl units oral tablet 1 tablet, By Mouth, 2 times a day, # 60 tablet, 6 Refills, Maintenance, 05/15/22 16:21:00 EDT, Tablet, [facility] #[id number], Partial fill upon patient request if the prescription is for a schedule II opioid drug., 1 tablet By Mouth 2 times a da... Start Date: 05/15/22 Status: Ordered Colace sodium 100 mg oral capsule 100 mg, 1, capsule, By Mouth, 2 times a day, PRN, # 180 capsule, Refills 1, Tot. Refills 1, Maintenance, for constipation, 06/23/22 10:20:00 EDT, Route to Pharmacy Electronically, [facility]/pharmacy #[id number],prefers gel formulation, 170, cm, 02/04/22 11:19:00... Start Date: 06/23/22 Status: Ordered diltiazem 180 mg/24 hours oral capsule, extended release 180 mg, 1, capsule, By Mouth, Daily, # 30 capsule, Refills 0, Tot. Refills 0, Maintenance, 11/06/2209:09:00 EST, Route to Pharmacy Electronically, [facility] #[id number], Partial fill upon patient request if the prescription is for a schedule II... Start Date: 11/06/21 Status: Ordered Flonase 50 mcg/inh nasal spray 1 sprays, Nares, Both, Daily in AM, # 16 Gm, 4 Refills, Maintenance, 12/03/21 12:34:00 EST, [place], [facility] #[id number], Partial fill upon patient request if the prescription is for a scheduleII opioid drug., 1 sprays Nares, Both Daily in AM,... Start Date: 12/03/21 Status: Ordered folic acid 1 mg oral tablet 1 mg, 1, tablet, By Mouth, Daily, # 30 tablet, Refills 11, Tot. Refills 11, Maintenance, 02/25/22 16:15:00 EDT, Route to Pharmacy Electronically, [facility] #[id number], 170, cm, 02/04/22 11:19:00 EDT, Height, 44.1, [...] 08/13/22 13:03:00 EDT, Route to Pharmacy Electronically, [facility]/pharmacy #[id number], 170, cm, 02/04/22 11:19:00 EDT, Height, 44.1, kg, 12/20/21 16:05:00 EST, Dry Weight Start Date: 08/13/22 Status: Ordered Hair, Skin & Nails 5 mg oral capsule 1 capsule = 5 mg, By Mouth, Daily, # 90 capsule, 3 Refills, Maintenance, 02/19/22 12:29:00 EDT, [facility] #[id number], Partial fill upon patient request if the prescription is for a schedule IIopioid drug., 1 capsule By Mouth Daily, 170, cm, 04... Start Date: 02/19/22 Status: Ordered hydrOXYzine hydrochloride 10 mg oral tablet 1-2 TABLETS, By Mouth, 2 times a day, PRN NEEDED FOR ANXIETY, # 60 tablet, 5 Refills, Maintenance, 09/22/22 16:15:00 EST, [facility]/pharmacy #[id number], 170, cm, 02/04/22 11:19:00 EDT, Height, 44.1, kg, 12/20/21 16:05:00 EST, Dry Weight Start Date: 09/22/22 Status: Ordered lactulose 10 gm/15 ml oral syrup 15 mL = 10 Gm, By Mouth, Every 72 hours, PRN as needed for constipation, # 300 mL, 5 Refills, Maintenance, 03/19/22 14:45:00 EDT, Syrup, [facility] #[id number], Partial fill upon patient requestif the prescription is for a schedule II opioid ivonne... Start Date: 03/19/22 Status: Ordered LORazepam 0.5 mg oral tablet 1 tablet = 0.5 mg, By Mouth, 3 times a day, # 60 tablet, 3 Refills, Maintenance, 07/08/22 17:11:00 EDT, Tablet, [facility]/pharmacy #[id number], Partial fill upon patient request if the prescription is for a schedule II opioid drug., 170, cm, 02/04/22 11:19:00 EDT... Start Date: 07/08/22 Status: Ordered LORazepam 0.5 mg oral tablet 1 tablet = 0.5 mg, By Mouth, 3 times a day, # 60 tablet, 3 Refills, Maintenance, 09/18/22 16:44:00 EST, Tablet, [facility]/pharmacy #[id number], Partial fill upon patient request [...] 10/22/21 15:09:00 EST, Route to Pharmacy Electronically, [facility] #[id number] Tablet, Partial fill upon patient request... Start [...] Refills, Maintenance, 02/26/21 15:47:00 EDT, ER Tablet, [facility] #[id number], Partial fill upon patient requestif the prescription [...] 11 Refills, Maintenance, 12/02/21 10:55:00 EST, Capsule, [facility] #[id number], Partial fill upon patient request if the [...] Care team information Care Team Personnel Name: Darian LUIS, Angie Position: [facility] RN Member Role: Primary Care Nurse Name: Milena ORTIZ, Morgan Hancock Position: [facility] Renal MD Member Role: Lifetime Consulting Physician Address: Address: [address] [place] [address], [address] Name: Graciela Nunez MD Position: [facility] Primary Care Physician Member Role: PCP Address: Address: [address] [address]- [place] Name: Luisa Storey RN Position: S RN Member Role: Primary Care Nurse Care Team Related Persons Name: LAZARUS OSBORNE Address: [place] [address] Name: KAVON NICOLE Address: home [address] [place] [address] Name: , [facility]
--- OUTSIDE RECORDS SUMMARY | 2023-08-21 08:39 | XMS_ITS | Continuity of Care Document ---
Author Name Unknown Organization [facility] Address [address] [place] [address]- Care Team Providers Care Biological Aide Name Role Phone Mayra ORTIZ, Graciela Lares Primary Care Physician Encounter [facility] Date(s): 07/18/20 - 08/17/20 [facility] [address] [place] [address]- [facility] Allergies, Adverse Reactions, Alerts Substance Reaction Severity [...] 23-valent vaccine 5 07/31/10 Recorded 1Location History: [place], [place] 2Admin Note: done @ dr jones office 3Location History: [facility] 4Location History: [facility] 5Location History: [facility] Medications alendronate 70 [...] Replace Required Details, Route to Pharmacy Electronically, [facility] #[id number]... Start Date: 01/31/20 Status: Ordered folic acid 1 mg oral tablet 1 mg, 1, tablet, By Mouth, Daily, # 30 tablet, Refills 3, Tot. Refills 3, Maintenance, 01/18/20 10:43:00 EDT, Route to Pharmacy Electronically, [facility] #[id number], 170, cm, 12/13/19 13:51:00EST, Height, 56.3, kg, 11/24/19 22:58:00 EST, Dry W... Start Date: 01/18/20 Status: Ordered furosemide 20 mg oral tablet 1, tablet, By Mouth, Daily, PRN, # 90 tablet, Refills 0, Tot. Refills 0, Maintenance, NEEDED FORLEG SWELLING, 04/19/20 15:50:00 EDT, Route to Pharmacy Electronically, [facility] #[id number],170, cm, 12/13/19 13:51:00 EST, Height, 56.3, kg, 0... Start Date: 04/19/20 Status: Ordered gabapentin 300 mg oral capsule See Instructions, TAKE 2 CAPSULES BY MOUTH EVERY MORNING, 1 CAPSULE MID DAY AND 2 CAPSULES EVERY NIGHT AT BEDTIME, # 150 capsule, Refills 1, Maintenance, Instructions Replace Required Details, Route to Pharmacy Electronically, [facility] #[id number]... Start Date: 01/19/20 Status: Ordered Home [...] 0 Refills, Maintenance, 07/29/20 10:57:00 EDT, Tablet, [facility] #[id number], 170, cm, 12/13/19 13:51:00 EST,Height, 56.3, kg, 11/24/19 22:58:00 EST, Dry Weight Start Date: 07/29/20 Status: Ordered Metoprolol Succinate ER 25 mg oral tablet, extended release 1 tablet = 25 mg, By Mouth, Daily, # 90 tablet, 1 Refills, Maintenance, 01/29/20 10:50:00 EDT, XL Tablet, [facility] #[id number], 170, cm, 12/13/19 13:51:00 EST, Height, 56.3, [...] times a day, PRN Pain , Moderate, for 5 days, # 30 tablet, 0 Refills, Acute 08/21/20 17:14:00 EDT, 08/16/20 17:14:00 EDT, Tablet, [facility] #[id number], 170, cm, 12/13/19 13:51:00 EST, Height, 56.3, kg, 11/24/19... Start Date: 08/16/20 Stop Date: 08/21/20 Status: Ordered Shower Chair See Instructions, # [...] 6 Refills, Maintenance, 06/17/20 16:11:00 EDT, [place], [facility] #[id number], 170, cm, 12/13/19 13:51:00 EST, Height, 56.3, kg, 11/24/19 22:58:00 EST, Dry Weight Start Date: 06/17/20 Stop Date: 01/13/21 Status: Ordered Vitamin B1 100 mg oral tablet 1, tablet, By Mouth, Daily, # 30 tablet, Refills 11, Tot. Refills 0, Acute, 12/18/19 14:10:00 EST, Route to Pharmacy Electronically, [facility] #[id number], 170, cm, 12/13/19 13:51:00 EST, Height, 56.3, kg, 11/24/19 22:58:00 EST, Dry Weight Start Date: 12/18/19 Status: Ordered Zofran 4 mg oral tablet 1 tablet = 4 mg, By Mouth, 3 times a day, PRN nausea, # 30 tablet, 0 Refills, Maintenance, :17:00 EDT, Tablet, [facility] #[id number], 170, cm, 12/13/19 13:51:00 EST, Height, 56.3, [...] pain(Confirmed) Active Emphysema/COPD(Confirmed) Active Raynaud's phenomenon(Confirmed) Active Social History Social History Type Response Smoking Status Current every day maria elena penn; Tobacco use times per day: smokes about 1.5 packs per day; entered on: 04/16/16 Sex
--- OUTSIDE RECORDS SUMMARY | 2023-08-21 08:39 | XMS_ITS | Continuity of Care Document ---
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 Name Role Phone Graciela Nunez MD Primary Care Physician Encounter [facility] Date(s): 04/08/23 - 05/08/23 [facility] [address] [place], [place] [address] Allergies, Adverse Reactions, Alerts Substance [...] 23-valent vaccine 6 07/31/10 Recorded 1Result Comment: [id number] given w/out incident 2Location History: [place], [place] 3Admin Note: done @ dr jones office 4Location History: [facility] 5Location History: [facility] 6Location History: [facility] Medications aspirin 81 mg [...] Replace Required Details, Route to Pharmacy Electronically, [id number], 170, cm, ... Start Date: 03/26/23 Status: Ordered baclofen 10 mg oral tablet 10 mg, 1, tablet, By Mouth, 2 times a day, PRN, # 28 tablet, Refills 2, Tot. Refills 2, Maintenance, Pain , Moderate, 02/11/23 12:27:00 EDT, Route to Pharmacy Electronically, [facility]/pharmacy #[id number], Partial fill upon patient request if the [...] A DAY NEEDED FOR CONSTIPATION. FILLED AT [facility] Start Date: 03/18/23 Status: Ordered folic acid 1 mg oral tablet 1 mg, 1, tablet, By Mouth, Daily, # 30 tablet, Refills 11, Tot. Refills 11, Maintenance, 12/03/22 9:01:00 EST, Route to Pharmacy Electronically, [facility] #[id number], 170, cm, 02/04/22 11:19:00 EDT, Height, 44.1, kg, 12/20/21 16:05:00 EST, Dry Weight Start Date: 12/03/22 Status: Ordered gabapentin 300 mg oral capsule 2, capsule, By Mouth, 3 times a day, # 180 capsule, Refills 5, Tot. Refills 5, Maintenance, 08/13/22 13:03:00 EDT, Route to Pharmacy Electronically, [facility]/pharmacy #[id number], 170, cm, 02/04/22 11:19:00 EDT, Height, 44.1, kg, 12/20/21 16:05:00 EST, Dry Weight Start Date: 08/13/22 Status: Ordered hydrOXYzine hydrochloride 10 mg oral tablet 3 tablet = 30 mg, By Mouth, 3 times a day, PRN NEEDED FOR ANXIETY, # 270 tablet, 3 Refills, Maintenance, 03/01/23 12:03:00 EDT, [facility]/pharmacy #[id number], 170, cm, 02/04/22 11:19:00 EDT, Height, 44.1, kg, 12/20/21 16:05:00 EST, Dry Weight Start Date: 03/01/23 Status: Ordered LORazepam 0.5 mg oral tablet 1 tablet = 0.5 mg, By Mouth, 2 times a day, PRN as needed for anxiety, for 14 days, fill when due, # 28 tablet, 1 Refills, Acute 06/04/23 9:05:00 EDT, 05/07/23 9:05:00 EDT, Tablet, [facility]/pharmacy #[id number], Partial fill upon patient request if the prescript... Start Date: 05/07/23 Stop Date: 06/04/23 Status: Ordered Metoprolol Succinate ER 25 mg oral tablet, extended release 1 tablet = 25 mg, By Mouth, Daily, TAKE 1 TABLET BY MOUTH ONCE DAILY Start Date: 12/03/22 Status: Ordered multivitamin Multiple Vitamins oral capsule 1 capsule, By Mouth, Daily, # 90 capsule, 3 Refills, Maintenance, 12/16/22 9:12:00 EST, Capsule, [facility]/pharmacy #[id number], Partial fill upon patient request if [...] 0 Refills, Maintenance, 04/20/23 11:30:00 EDT, Tablet, [facility]/pharmacy #[id number], Partial fill upon patient request if the prescription is for a schedule II opio... Start Date: 04/20/23 Status: Ordered predniSONE 10 mg oral tablet See Instructions, 30 mg daily for 3 days and then 20 mg daily for 3 days and then continue 10 mg daily., # 39 each, 0 Refills, Maintenance, 03/22/23 13:16:00 EDT, Tablet, [facility], Partial fill upon patient request [...] directives, # 28 each, 0 Refills, Maintenance, 05/07/23 16:14:00 EDT, [facility] #[id number], Partial fill upon patient request if the prescription is for a schedule II opioid drug., 17... Start Date: 05/07/23 Status: Ordered Ventolin HFA 108 mcg/inh inhalation [...] Personnel Name: Milena ORTIZ, Morgan Hancock Position: [facility] Renal MD Member Role: Lifetime Consulting Physician Address: Address: [address] [place] [address], [address] [place] [address]- Name: Graciela Nunez MD Position: S Physician - Primary Care Member Role: PCP Address: Address: [address] [place] [id number]- [place] Name: Maryam Camara RN Position: S [...] Care Nurse Name: Romeo Reid MD Position: [facility] Renal MD Member Role: Lifetime Consulting Physician Address: Address: [address] [place] [address] [address] [facility] [place] [address]- [place] Name: Olga Valladares RN Position: S RN Member Role: Primary Care Nurse Name: Ruby Alexandre RN Position: S RN Member Role: Primary Care Nurse Address: Address: [address] [place] [address]- Name: Celso Lawson MD Position: [facility] Renal MD Member Role: Lifetime Consulting Physician Address: Address: [address] [place] [address] [facility] [place] [address]- Name: Chloe Fisher LPN Position: S RN Member Role: Primary Care Nurse Care Team Related Persons Name: LAZARUS OSBORNE Address: [place] [address] Name: KAVON NICOLE Address: home [address] [place] [address] Name: PT, STATES NONE
--- OUTSIDE RECORDS SUMMARY | 2023-08-21 08:39 | XMS_ITS | Continuity of Care Document ---
Author Name Unknown Organization [facility] Address [address] [place] [address]- Care Team Providers Care Cafeteria Director Name Role Phone Graciela Nunez MD Primary Care Physician [phone] Encounter [facility] Date(s): 02/02/23 - 03/04/23 [facility] [address] [place], [place] [address] Allergies, Adverse Reactions, Alerts Substance [...] 23-valent vaccine 6 07/31/10 Recorded 1Result Comment: [id number] given w/out incident 2Location History: [place], [place] 3Admin Note: done @ dr jones office 4Location History: [facility] 5Location History: [facility] 6Location History: [facility] Medications aspirin 81 mg oral [...] 02/11/23 12:27:00 EDT, Route to Pharmacy Electronically, [facility] #[id number], Partial fill upon patient request if the prescription is... Start Date: 02/11/23 Stop Date: 03/25/23 Status: Ordered busPIRone 10 mg oral tablet See Instructions, BEING TAPERED OFF, DECREASE BY 10MG EVERY DAY UNTIL DISCONTINUATION, # 60 tablet,Refills 1, Maintenance, 11/12/22 17:44:00 EST, Instructions Replace Required Details, Route to Pharmacy Electronically, [facility] [id number], 170, cm, 02/04... Start Date: 11/12/22 Status: Ordered calcium-vitamin D 600 mg-400 intl units oral tablet 1 tablet, By Mouth, 2 times a day, # 60 tablet, 6 Refills, Maintenance, 05/15/22 16:21:00 EDT, Tablet, [facility] #[id number], Partial fill upon patient request if the prescription is for a schedule II opioid drug., 1 tablet By Mouth 2 times a da... Start Date: 05/15/22 Status: Ordered clonazePAM 1 mg oral tablet See Instructions, take 1/2 tab by daily, # 10 tablet, 0 Refills, Maintenance, 03/01/23 12:06:00 EDT, Tablet, [facility] #4501, Partial fill upon patient request if the prescription is for a schedule II opioid drug., 170, cm, 02/04/22 11:19:00 EDT, H... Start Date: 03/01/23 Status: Ordered Colace sodium 100 mg oral capsule 100 mg, 1, capsule, By Mouth, 2 times a day, PRN, # 180 capsule, Refills 1, Tot. Refills 1, Maintenance, for constipation, 06/23/22 10:20:00 EDT, Route to Pharmacy Electronically, [facility]acy #[id number],prefers gel formulation, 170, cm, 02/04/22 11:19:00... Start Date: 06/23/22 Status: Ordered Flonase 50 mcg/inh nasal spray 1 sprays, Nares, Both, Daily in AM, # 16 Gm, 4 Refills, Maintenance, 12/03/21 12:34:00 EST, [place], [facility] #[id number], Partial fill upon patient request if the prescription is for a scheduleII opioid drug., 1 sprays Nares, Both Daily in AM,... Start Date: 12/03/21 Status: Ordered folic acid 1 mg oral tablet 1 mg, 1, tablet, By Mouth, Daily, # 30 tablet, Refills 11, Tot. Refills 11, Maintenance, 12/03/22 9:01:00 EST, Route to Pharmacy Electronically, [id number], 170, cm, 02/04/22 11:19:00 EDT, Height, [...] Replace Required Details, Route to Pharmacy Electronically, [facility] 0[facility]13, 170, cm, 02/04/22 11:19:0... Start Date: 02/15/23 Status: Ordered Hair, Skin & Nails 5 mg oral capsule 1 capsule = 5 mg, By Mouth, Daily, # 90 capsule, 3 Refills, Maintenance, 02/19/22 12:29:00 EDT, [facility] #[id number], Partial fill upon patient request if the prescription is for a schedule IIopioid drug., 1 capsule By Mouth Daily, 170, cm, 04... Start Date: 02/19/22 Status: Ordered hydrOXYzine hydrochloride 10 mg oral tablet 3 tablet = 30 mg, By Mouth, 3 times a day, PRN NEEDED FOR ANXIETY, # 270 tablet, 3 Refills, Maintenance, 03/01/23 12:03:00 EDT, [facility] #[id number], 170, cm, 02/04/22 11:19:00 EDT, Height, 44.1, kg, 12/20/21 16:05:00 EST, Dry Weight Start Date: 03/01/23 Status: Ordered lactulose 10 gm/15 ml oral syrup 15 mL = 10 Gm, By Mouth, Every 72 hours, PRN as needed for constipation, # 300 mL, 5 Refills, Maintenance, 03/19/22 14:45:00 EDT, Syrup, [facility] #[id number], Partial fill upon patient requestif the prescription is for a schedule II opioid ivonne... Start Date: 03/19/22 Status: Ordered LORazepam 0.5 mg oral tablet 1 tablet = 0.5 mg, By Mouth, 2 times a day, PRN anxiety, # 60 tablet, 1 Refills, Maintenance, 02/15/23 8:48:00 EDT, [facility] #[id number], CHANGE IN FREQUENCY TO BID, 170, cm, 02/04/22 11:19:00 EDT, Height, 44.1, kg, 12/20/21 16:05:00 EST, Dry Weight Start Date: 02/15/23 Status: Ordered Metoprolol Succinate ER 25 mg [...] 12/03/22 8:52:00 EST, Route to Pharmacy Electronically, [facility] #[id number], Partial fill upon patient request [...] Refills, Maintenance, 02/26/21 15:47:00 EDT, ER Tablet, [facility] #[id number], Partial fill upon patient requestif the prescription [...] Personnel Name: Milena ORTIZ, Morgan Hancock Position: [facility] Renal MD Member Role: Lifetime Consulting Physician Address: Address: [address] [place] [address], [address] [address] Name: Graciela Nunez MD Position: [facility] Primary Care Physician Member Role: PCP Address: Address: [address] [place] [address]- Name: Luisa Storey RN Position: [facility] RN Member Role: Primary Care Nurse Care Team Related Persons Name: LAZARUS OSBORNE Address: [place] [address] Name: KAVON NICOLE Address: home [address] [place] [address] Name: PT, STATES NONE
--- OUTSIDE RECORDS SUMMARY | 2023-08-21 08:39 | XMS_ITS | Continuity of Care Document ---
Author Name Unknown Organization [facility] Address [address] [place] [address]- Care Team Providers Care Drawer In Name Role Phone Mayra ORTIZ, Graciela Lares Primary Care Physician En[place] [facility] Date(s): 05/10/20 - 06/09/20 [facility] [address] [place] [address]- [facility] Attending Physician: Dennys Fabian Admitting Physician: Dennys Fabian Referring Physician: Dennys Fabian Allergies, Adverse Reactions, Alerts Substance Reaction Severity [...] 23-valent vaccine 5 07/31/10 Recorded 1Location History: [place], [place] 2Admin Note: done @ dr jones office 3Location History: [facility] 4Location History: [facility] 5Location History: [facility] Medications alendronate 70 mg [...] Replace Required Details, Route to Pharmacy Electronically, [facility] #[id number]... Start Date: 01/31/20 Status: Ordered erythromycin [...] 01/18/20 10:43:00 EDT, Route to Pharmacy Electronically, [facility] #[id number], 170, cm, 12/13/19 13:51:00EST, Height, 56.3, kg, 11/24/19 22:58:00 EST, Dry W... Start Date: 01/18/20 Status: Ordered furosemide 20 mg oral tablet 1, tablet, By Mouth, Daily, PRN, # 90 tablet, Refills 0, Tot. Refills 0, Maintenance, NEEDED FORLEG SWELLING, 04/19/20 15:50:00 EDT, Route to Pharmacy Electronically, [facility] #[id number],170, cm, 12/13/19 13:51:00 EST, Height, 56.3, kg, 0... Start Date: 04/19/20 Status: Ordered gabapentin 300 mg oral capsule See Instructions, TAKE 2 CAPSULES BY MOUTH EVERY MORNING, 1 CAPSULE MID DAY AND 2 CAPSULES EVERY NIGHT AT BEDTIME, # 150 capsule, Refills 1, Maintenance, Instructions Replace Required Details, Route to Pharmacy Electronically, [facility] #03... Start Date: 01/19/20 Status: Ordered [...] Refills, Maintenance, 01/29/20 10:50:00 EDT, XL Tablet, [facility] #[id number], 170, cm, 12/13/19 13:51:00 EST, Height, 56.3, [...] 12/18/19 14:10:00 EST, Route to Pharmacy Electronically, [facility] #[id number], 170, cm, 12/13/19 13:51:00 EST, Height, 56.3, [...]
--- OUTSIDE RECORDS SUMMARY | 2023-08-21 08:39 | XMS_ITS | Continuity of Care Document ---
Author Name Unknown Organization [facility] Address [address] [place] [address]- Care Team Providers Care Business Management Associate Name Role Phone Graciela Nunez MD Primary Care Physician Encounter [facility] Date(s): 12/29/21 - 01/28/22 [facility] [address] [place], [place] [id number]- Attending Physician: Dennys Fabian Admitting Physician: Dennys Fabian Referring Physician: Admtr, Asad8 Allergies, Adverse Reactions, Alerts Substance Reaction Severity [...] 23-valent vaccine 6 07/31/10 Recorded 1Result Comment: [id number] given w/out incident 2Location History: [place], [place] 3Admin Note: done @ dr jones office 4Location History: [facility] 5Location History: [facility] [...] 01/15/22 12:48:00 EDT, Route to Pharmacy Electronically, [facility] #[id number], Partial fill upon patient request if the prescription is for a schedule... Start Date: 01/15/22 Status: Ordered Colace sodium 100 mg oral capsule 100 mg, 1, capsule, By Mouth, 2 times a day, PRN, # 60 capsule, Refills 5, Tot. Refills 5, Maintenance, for constipation, 01/14/22 11:17:00 EDT, Route to Pharmacy Electronically, [facility]#[id number], Partial fill upon patient request if the pr... Start Date: 01/14/22 Status: Ordered diltiazem 180 mg/24 hours oral capsule, extended release 180 mg, 1, capsule, By Mouth, Daily, # 30 capsule, Refills 0, Tot. Refills 0, Maintenance, 11/06/2209:09:00 EST, Route to Pharmacy Electronically, [facility] #[id number], Partial fill upon patient request if the prescription is for a schedule II... Start Date: 11/06/21 Status: Ordered Flonase 50 mcg/inh nasal spray 1 sprays, Nares, Both, Daily in AM, # 16 Gm, 4 Refills, Maintenance, 12/03/21 12:34:00 EST, [place], [facility] #[id number], Partial fill upon patient request if the prescription is for a scheduleII opioid drug., 1 sprays Nares, Both Daily in AM,... Start Date: 12/03/21 Status: Ordered folic acid 1 mg oral tablet 1 mg, 1, tablet, By Mouth, Daily, # 30 tablet, Refills 5, Tot. Refills 5, Maintenance, 01/31/21 16:35:00 EDT, Route to Pharmacy Electronically, [facility] #[id number], 170, cm, 10/02/20 10:06:00EST, Height, 56.3, kg, [...] 08/26/21 10:50:00 EDT, Route to Pharmacy Electronically, [facility] #[id number], 162.56, cm, 08/22/21 2:36:00 EDT, Height, 52.65, kg, 08/22/21 2:36:00 EDT... Start Date: 08/26/21 Status: Ordered lactulose 10 gm/15 ml oral syrup 15 mL = 10 Gm, By Mouth, Every 72 hours, PRN as needed for constipation, # 300 mL, 5 Refills, Maintenance, 01/05/22 10:50:00 EST, Syrup, [facility] #[id number], Partial fill upon patient requestif the prescription [...] 02/06/22 16:15:00 EDT, 12/26/21 16:15:00 EST, [place], [facility] #[id number], Partial fill upon patient request if the [...] 0 Refills, Maintenance, 12/22/21 14:25:00 EST, Tablet, [facility] #[id number], Partial fill upon patient requ... Start Date: 12/22/21 Stop Date: 12/25/21 Status: Ordered predniSONE 10 mg oral tablet See Instructions, 4 tabs x 3 days, 3 tabs x 3 days, 2 tabs x 3 days, 1 tab x 3 days, # 30 tablet, 0Refills, Acute 02/07/22 11:15:00 EDT, 01/05/22 11:08:00 EST, Tablet, [facility] #[id number], Partial fill upon patient request if the [...] 10/22/21 15:09:00 EST, Route to Pharmacy Electronically, [facility] #[id number] Tablet, Partial fill upon patient request... Start [...] Refills, Maintenance, 02/26/21 15:47:00 EDT, ER Tablet, [facility] #[id number], Partial fill upon patient requestif the prescription is for a schedule II opioid ivonne... Start Date: 02/26/21 Status: Ordered Ventolin HFA 108 mcg/inh inhalation aerosol with adapter 2 puffs, Inhalation, 4 times a day, PRN for wheezing, # 1 each, 0 Refills, Maintenance, 10/02/20 10:55:00 EST, Aerosol, [facility]/pharmacy #4471, 170, cm, 10/02/20 10:06:00 EST, Height, 56.3, kg, 11/24/19 22:58:00 EST, Dry Weight Start Date: 10/02/20 Status: Ordered Vitamin D3 1000 intl units oral capsule 1 capsule = 25 mcg, By Mouth, Daily, # 30 capsule, 11 Refills, Maintenance, 12/02/21 10:55:00 EST, Capsule, [facility] #[id number], Partial fill upon patient request if the [...]
--- OUTSIDE RECORDS SUMMARY | 2023-08-21 08:39 | XMS_ITS | Continuity of Care Document ---
Author Name Unknown Organization [facility] Address [address] [place] [address]- Care Team Providers Care Granite Block Paver Name Role Phone Graciela Nunez MD Primary Care Physician Encounter [facility] Date(s): 04/08/22 - 04/15/22 [facility] [address] [place], [place] [address] Encounter Diagnosis AF (atrial fibrillation)(Discharge Diagnosis) - 04/08/22 Chronic respiratory failure with hypoxia(Discharge Diagnosis) - 04/08/22 Anxiety(Discharge Diagnosis) - 04/08/22 End stage COPD(Discharge Diagnosis) - 04/08/22 Attending Physician: Graciela Nunez MD Allergies, Adverse [...] 23-valent vaccine 6 07/31/10 Recorded 1Result Comment: [id number] given w/out incident 2Location History: [place], [place] 3Admin Note: done @ dr jones office 4Location History: [facility] 5Location History: [facility] [...] 3 Refills, Maintenance, 04/09/22 9:54:00 EDT, Tablet, [facility] #[id number], Partial fill upon patient request if the prescription is for a schedule II opioid drug., 1 tablet By Mouth Daily, 170, cm, 02/04... Start Date: 04/09/22 Status: Ordered busPIRone 5 mg oral tablet 5 mg, 1, tablet, By Mouth, 3 times a day, # 90 tablet, Refills 4, Tot. Refills 4, Maintenance, 04/09/22 9:54:00 EDT, Route to Pharmacy Electronically, [facility] #[id number], change in dosage, 170, cm, 02/04/22 11:19:00 EDT, Height, 44.1, kg, ... Start Date: 04/09/22 Status: Ordered calcium (as carbonate)-vitamin D 500 mg-400 intl units oral tablet 1 tablet, By Mouth, 2 times a day, calcium 500/vitamin d 400 iu twice daily, # 60 tablet, 6 Refills, Maintenance, 02/11/22 10:15:00 EDT, Tablet, [facility] #[id number], Partial fill upon patientrequest if the prescription is for a schedule II op... Start Date: 02/11/22 Status: Ordered Colace sodium 100 mg oral capsule 100 mg, 1, capsule, By Mouth, 2 times a day, PRN, # 60 capsule, Refills 5, Tot. Refills 5, Maintenance, for constipation, 02/04/22 11:08:00 EDT, Route to Pharmacy Electronically, [facility]#[id number], prefers gel formulation, 170, cm, 02/04/22... Start Date: 02/04/22 Status: Ordered diltiazem 180 mg/24 hours oral capsule, extended release 180 mg, 1, capsule, By Mouth, Daily, # 30 capsule, Refills 0, Tot. Refills 0, Maintenance, 11/06/2209:09:00 EST, Route to Pharmacy Electronically, [facility] #[id number], Partial fill upon patient request if the prescription is for a schedule II... Start Date: 11/06/21 Status: Ordered Flonase 50 mcg/inh nasal spray 1 sprays, Nares, Both, Daily in AM, # 16 Gm, 4 Refills, Maintenance, 12/03/21 12:34:00 EST, [place], [facility] #[id number], Partial fill upon patient request if the prescription is for a scheduleII opioid drug., 1 sprays Nares, Both Daily in AM,... Start Date: 12/03/21 Status: Ordered folic acid 1 mg oral tablet 1 mg, 1, tablet, By Mouth, Daily, # 30 tablet, Refills 11, Tot. Refills 11, Maintenance, 02/25/22 16:15:00 EDT, Route to Pharmacy Electronically, [facility] #[id number], 170, cm, 02/04/22 11:19:00 EDT, Height, 44.1, [...] 02/09/22 15:13:00 EDT, Route to Pharmacy Electronically, [facility] #[id number], 170, cm, 02/04/22 11:19:00 EDT, Height, 44.1, kg, 12/20/21 16:05:00 EST,... Start Date: 02/09/22 Status: Ordered Hair, Skin & Nails 5 mg oral capsule 1 capsule = 5 mg, By Mouth, Daily, # 90 capsule, 3 Refills, Maintenance, 02/19/22 12:29:00 EDT, [facility] #[id number], Partial fill upon patient request if the prescription is for a schedule IIopioid drug., 1 capsule By Mouth Daily, 170, cm, 04... Start Date: 02/19/22 Status: Ordered lactulose 10 gm/15 ml oral syrup 15 mL = 10 Gm, By Mouth, Every 72 hours, PRN as needed for constipation, # 300 mL, 5 Refills, Maintenance, 03/19/22 14:45:00 EDT, Syrup, [facility] #[id number], Partial fill upon patient requestif the prescription is for a schedule II opioid ivonne... Start Date: 03/19/22 Status: Ordered LORazepam 0.5 mg oral tablet 1 tablet = 0.5 mg, By Mouth, 3 times a day, # 60 tablet, 3 Refills, Maintenance, 02/04/22 11:05:00 EDT, Tablet, [facility] #[id number], Partial fill upon patient request if the [...] 10/22/21 15:09:00 EST, Route to Pharmacy Electronically, [facility] #[id number] Tablet, Partial fill upon patient request... Start [...] Refills, Maintenance, 02/26/21 15:47:00 EDT, ER Tablet, [facility] #[id number], Partial fill upon patient requestif the prescription is for a schedule II opioid ivonne... Start Date: 02/26/21 Status: Ordered Ventolin HFA 108 mcg/inh inhalation aerosol with adapter 2 puffs, Inhalation, 4 times a day, PRN for wheezing, # 1 each, 0 Refills, Maintenance, 10/02/20 10:55:00 EST, Aerosol, [facility]/pharmacy #[id number], 170, cm, 10/02/20 10:06:00 EST, Height, 56.3, kg, 11/24/19 22:58:00 EST, Dry Weight Start Date: 10/02/20 Status: Ordered Vitamin D3 1000 intl units oral capsule 1 capsule = 25 mcg, By Mouth, Daily, # 30 capsule, 11 Refills, Maintenance, 12/02/21 10:55:00 EST, Capsule, [facility] #[id number], Partial fill upon patient request if the [...] Service Informant AF (atrial fibrillation) Discharge Diagnosis 04/08/22 Chronic respiratory failure with hypoxia Discharge Diagnosis 04/08/22 Anxiety Discharge Diagnosis 04/08/22 End stage COPD Discharge Diagnosis 04/08/22 Social History Social History Type Response Tobacco Other: now smoking 1 /2 pack per day. Sex
--- OUTSIDE RECORDS SUMMARY | 2023-08-21 08:39 | XMS_ITS | Continuity of Care Document ---
Author Name Unknown Organization [facility] Address [address] [place] [address]- Care Team Providers Care Program Director Name Role Phone Graciela Nunez MD Primary Care Physician Encounter [facility] Date(s): 03/23/23 - 05/12/23 [facility] [address] [place], [place] [address] Attending Physician: Graciela Nunez MD Allergies, Adverse [...] 23-valent vaccine 6 07/31/10 Recorded 1Result Comment: [id number] given w/out incident 2Location History: [place], [place] 3Admin Note: done @ dr jones office 4Location History: [facility] 5Location History: [facility] 6Location History: [facility] Medications aspirin 81 mg [...] Replace Required Details, Route to Pharmacy Electronically, [facility] [id number], 170, cm, ... Start Date: 03/26/23 Status: Ordered baclofen 10 mg oral tablet 10 mg, 1, tablet, By Mouth, 2 times a day, PRN, # 28 tablet, Refills 2, Tot. Refills 2, Maintenance, Pain , Moderate, 02/11/23 12:27:00 EDT, Route to Pharmacy Electronically, [facility]/pharmacy #[id number], Partial fill upon patient request if the [...] A DAY NEEDED FOR CONSTIPATION. FILLED AT [facility] Start Date: 03/18/23 Status: Ordered folic acid 1 mg oral tablet 1 mg, 1, tablet, By Mouth, Daily, # 30 tablet, Refills 11, Tot. Refills 11, Maintenance, 12/03/22 9:01:00 EST, Route to Pharmacy Electronically, [facility]/pharmacy #[id number], 170, cm, 02/04/22 11:19:00 EDT, Height, 44.1, kg, 12/20/21 16:05:00 EST, Dry Weight Start Date: 12/03/22 Status: Ordered gabapentin 300 mg oral capsule 2, capsule, By Mouth, 3 times a day, # 180 capsule, Refills 5, Tot. Refills 5, Maintenance, 08/13/22 13:03:00 EDT, Route to Pharmacy Electronically, [facility]/pharmacy #[id number], 170, cm, 02/04/22 11:19:00 EDT, Height, 44.1, kg, 12/20/21 16:05:00 EST, Dry Weight Start Date: 08/13/22 Status: Ordered hydrOXYzine hydrochloride 10 mg oral tablet 3 tablet = 30 mg, By Mouth, 3 times a day, PRN NEEDED FOR ANXIETY, # 270 tablet, 3 Refills, Maintenance, 03/01/23 12:03:00 EDT, [facility]/pharmacy #[id number], 170, cm, 02/04/22 11:19:00 EDT, Height, 44.1, kg, 12/20/21 16:05:00 EST, Dry Weight Start Date: 03/01/23 Status: Ordered LORazepam 0.5 mg oral tablet 1 tablet = 0.5 mg, By Mouth, 2 times a day, PRN as needed for anxiety, for 14 days, fill when due, # 28 tablet, 1 Refills, Acute 06/04/23 9:05:00 EDT, 05/07/23 9:05:00 EDT, Tablet, [facility]/pharmacy #[id number], Partial fill upon patient [...] 3 Refills, Maintenance, 12/16/22 9:12:00 EST, Capsule, [facility]/pharmacy #[id number], Partial fill upon patient [...] 0 Refills, Maintenance, 04/20/23 11:30:00 EDT, Tablet, [facility]/pharmacy #[id number], Partial fill upon patient request if the prescription is for a schedule II opio... Start Date: 04/20/23 Status: Ordered predniSONE 10 mg oral tablet See Instructions, 30 mg daily for 3 days and then 20 mg daily for 3 days and then continue 10 mg daily., # 39 each, 0 Refills, Maintenance, 03/22/23 13:16:00 EDT, Tablet, [facility], Partial fill upon [...] each, 0 Refills, Maintenance, 05/07/23 16:14:00 EDT, [facility]/pharmacy #[id number], Partial fill upon patient request if the prescription is for a schedule II opioid drug., 17... Start Date: 05/07/23 Status: Ordered Ventolin HFA 108 mcg/inh inhalation aerosol with adapter 2 puffs, Inhalation, 4 times a day, PRN for wheezing, # 1 each, 0 Refills, Maintenance, 10/02/20 10:55:00 EST, Aerosol, [facility]/pharmacy #[id number], 170, cm, 10/02/20 10:06:00 EST, Height, 56.3, kg, 11/24/19 22:58:00 EST, Dry Weight Start Date: 10/02/20 Status: Ordered Vitamin D3 1000 intl units oral capsule 1 capsule = 25 mcg, By Mouth, Daily, # 30 capsule, 11 Refills, Maintenance, 12/03/22 9:00:00 EST, Capsule, [facility]/pharmacy #[id number], Partial fill upon patient [...] Team Personnel Name: Morgan Abbott MD Position: [facility] Renal MD Member Role: Lifetime Consulting Physician Address: Address: [address] [place] [address], [address] [place] [address]- [place] Name: Graciela Nunez MD Position: [facility] Physician - Primary Care Member Role: PCP Address: Address: [address] [place] [address]- [place] Name: Maryam Camara RN Position: S [...] Care Nurse Name: Romeo Reid MD Position: [facility] Renal MD Member Role: Lifetime Consulting Physician Address: Address: [address] [place] [address] [address] [facility], [place] [address]- [place] Name: Olga Valladares RN Position: S RN Member Role: Primary Care Nurse Name: Ruby Alexandre RN Position: S RN Member Role: Primary Care Nurse Address: Address: [address] [place] [address]- [place] Name: Celso Lawson MD Position: [facility] Renal MD Member Role: Lifetime Consulting Physician Address: Address: [address] [place] [address] [facility] [place] [address]- [place] Name: Keely Pascal RN Position: S RN Member Role: Primary Care Nurse Name: Chloe Fisher LPN Position: S RN Member Role: Primary Care Nurse Care Team Related Persons Name: LAZARUS OSBORNE Address: [place] [address] Name: KAVON NICOLE Address: [address] [place] [address] Name: , [facility] NONE
--- OUTSIDE RECORDS SUMMARY | 2023-08-21 08:39 | XMS_ITS | Continuity of Care Document ---
Author Name Unknown Organization [facility] Address [address] [place] [address]- Care Team Providers Care Platinumsmith Name Role Phone Graciela Nunez MD Primary Care Physician [phone] Encounter [facility] Date(s): 09/01/21 - 10/01/21 [facility] [address] [place], [place] [address] Allergies, Adverse Reactions, Alerts [...] 23-valent vaccine 5 07/31/10 Recorded 1Location History: [place], [place] 2Admin Note: done @ dr jones office 3Location History: [facility] 4Location History: [facility] [...] 0 Refills, Maintenance, 09/01/21 15:19:00 EDT, Capsule, [facility] #[id number], Partial fill upon patient request if the [...] 01/31/21 16:35:00 EDT, Route to Pharmacy Electronically, [facility] #[id number], 170, cm, 10/02/20 10:06:00EST, Height, 56.3, kg, 11/24/19 22:58:00 EST, Dry W... Start Date: 01/31/21 Status: Ordered furosemide 20 mg oral tablet 1, tablet, By Mouth, Daily, PRN, # 90 tablet, Refills 0, Tot. Refills 0, Maintenance, NEEDED FORLEG SWELLING, 04/19/20 15:50:00 EDT, Route to Pharmacy Electronically, [facility] #[id number],170, cm, 12/13/19 13:51:00 EST, Height, 56.3, kg, 0... Start Date: 04/19/20 Status: Ordered gabapentin 300 mg oral capsule 2, capsule, By Mouth, 3 times a day, # 180 capsule, Refills 1, Tot. Refills 1, Maintenance, 08/26/21 10:50:00 EDT, Route to Pharmacy Electronically, [facility] #[id number], 162.56, cm, 08/22/21 2:36:00 EDT, Height, 52.65, [...] tablet, 0 Refills, Maintenance, 09/10/21 16:04:00 EST, [facility] #[id number], 170, cm, 08/30/21 17:40:00 EDT, Height,51.5, kg, 08/30/21 17:40:00 EDT, Dry Weight Start Date: 09/10/21 Status: Ordered Lyrica 25 mg oral capsule 1 capsule = 25 mg, By Mouth, Daily, # 30 capsule, 2 Refills, Maintenance, 09/30/21 10:32:00 EST, Capsule, [facility] #[id number], Partial fill upon patient request if the prescription is for a schedule II opioid drug., 170, cm, 08/30/21 17:40:00... Start Date: 09/30/21 Status: Ordered Metoprolol Succinate ER 25 mg oral tablet, extended release 1 tablet = 25 mg, By Mouth, Daily, # 90 tablet, 1 Refills, Maintenance, 01/29/20 10:50:00 EDT, XL Tablet, [facility] #[id number], 170, cm, 12/13/19 13:51:00 EST, Height, 56.3, kg, 11/24/19 22:58:00 EST, Dry Weight Start Date: 01/29/20 Status: Ordered predniSONE 10 mg oral tablet See Instructions, 4 tabs x 3 days, 3 tabs x 3 days, 2 tabs x 3 days, 1 tab x 3 days, # 30 tablet, 0Refills, Acute 10/11/21 12:03:00 EST, 09/11/21 12:03:00 EST, Tablet, [facility] #[id number], Partial fill upon patient request if the [...] 3 Refills, Maintenance, 03/13/21 13:26:00 EDT, Tablet, [facility] #[id number], 170, cm, 10/02/20 10:06:00 EST, Height, 56.3, [...] Refills, Maintenance, 02/26/21 15:47:00 EDT, ER Tablet, [facility] #[id number], Partial fill upon patient requestif the prescription is for a schedule II opioid ivonne... Start Date: 02/26/21 Status: Ordered Ventolin HFA 108 mcg/inh inhalation aerosol with adapter 2 puffs, Inhalation, 4 times a day, PRN for wheezing, # 1 each, 0 Refills, Maintenance, 10/02/20 10:55:00 EST, Aerosol, [facility]/pharmacy #[id number], 170, cm, 10/02/20 10:06:00 EST, Height, 56.3, kg, 11/24/19 22:58:00 EST, Dry Weight Start Date: 10/02/20 Status: Ordered Vitamin B1 100 mg oral tablet 1, tablet, By Mouth, Daily, # 30 tablet, Refills 7, Tot. Refills 0, Acute, 01/06/21 14:35:00 EST, Route to Pharmacy Electronically, [facility] #[id number], 170, cm, 10/02/20 10:06:00 EST, Height, 56.3, kg, 11/24/19 22:58:00 EST, Dry Weight Start Date: 01/06/21 Status: Ordered Zofran 4 mg oral tablet 1 tablet = 4 mg, By Mouth, 3 times a day, PRN nausea, # 30 tablet, 0 Refills, Maintenance, :17:00 EDT, Tablet, [facility] #[id number], 170, cm, 12/13/19 13:51:00 EST, Height, 56.3, [...]
--- OUTSIDE RECORDS SUMMARY | 2023-08-21 08:39 | XMS_ITS | Continuity of Care Document ---
Author Name Unknown Organization [facility] Address [address] [place] [address]- Care Team Providers Care Otc Clerk Name Role Phone Mayra ORTIZ, Graciela Lares Primary Care Physician Encounter [facility] Date(s): 08/09/20 - 09/08/20 [facility] [address] [place], [place] [address] Allergies, Adverse Reactions, Alerts Substance Reaction [...] 23-valent vaccine 5 07/31/10 Recorded 1Location History: [place], [place] 2Admin Note: done @ dr jones office 3Location History: [facility] 4Location History: [facility] 5Location History: [facility] Medications alendronate 70 mg oral tablet [...] Replace Required Details, Route to Pharmacy Electronically, [facility] #[id number]... Start Date: 01/31/20 Status: Ordered folic acid 1 mg oral tablet 1 mg, 1, tablet, By Mouth, Daily, # 30 tablet, Refills 3, Tot. Refills 3, Maintenance, 01/18/20 10:43:00 EDT, Route to Pharmacy Electronically, [facility] #[id number], 170, cm, 12/13/19 13:51:00EST, Height, 56.3, kg, 11/24/19 22:58:00 EST, Dry W... Start Date: 01/18/20 Status: Ordered furosemide 20 mg oral tablet 1, tablet, By Mouth, Daily, PRN, # 90 tablet, Refills 0, Tot. Refills 0, Maintenance, NEEDED FORLEG SWELLING, 04/19/20 15:50:00 EDT, Route to Pharmacy Electronically, [facility] #[id number],170, cm, 12/13/19 13:51:00 EST, Height, 56.3, kg, 0... Start Date: 04/19/20 Status: Ordered gabapentin 300 mg oral capsule See Instructions, TAKE 2 CAPSULES BY MOUTH three times per day, # 180 capsule, Refills 1, Instructions Replace Required Details, Route to Pharmacy Electronically, [facility] #[id number], 170, cm, 12/13/19 13:51:00 EST, Height, 56.3, [...] 0 Refills, Maintenance, 07/29/20 10:57:00 EDT, Tablet, [facility] #[id number], 170, cm, 12/13/19 13:51:00 EST,Height, 56.3, kg, 11/24/19 22:58:00 EST, Dry Weight Start Date: 07/29/20 Status: Ordered Metoprolol Succinate ER 25 mg oral tablet, extended release 1 tablet = 25 mg, By Mouth, Daily, # 90 tablet, 1 Refills, Maintenance, 01/29/20 10:50:00 EDT, XL Tablet, [facility] #[id number], 170, cm, 12/13/19 13:51:00 EST, Height, 56.3, [...] 3 Refills, Maintenance, 08/23/20 12:07:00 EDT, Tablet, [facility] #[id number], 170, cm, 12/13/19 13:51:00 EST, Height, 56.3, [...] 6 Refills, Maintenance, 06/17/20 16:11:00 EDT, Aerosol, [facility] #[id number], 170, cm, 12/13/19 13:51:00 EST, Height, 56.3, kg, 11/24/19 22:58:00 EST, Dry Weight Start Date: 06/17/20 Stop Date: 01/13/21 Status: Ordered Vitamin B1 100 mg oral tablet 1, tablet, By Mouth, Daily, # 30 tablet, Refills 11, Tot. Refills 0, Acute, 12/18/19 14:10:00 EST, Route to Pharmacy Electronically, [facility] #[id number], 170, cm, 12/13/19 13:51:00 EST, Height, 56.3, kg, 11/24/19 22:58:00 EST, Dry Weight Start Date: 12/18/19 Status: Ordered Zofran 4 mg oral tablet 1 tablet = 4 mg, By Mouth, 3 times a day, PRN nausea, # 30 tablet, 0 Refills, Maintenance, :17:00 EDT, Tablet, [facility] #[id number], 170, cm, 12/13/19 13:51:00 EST, Height, 56.3, [...]
--- OUTSIDE RECORDS SUMMARY | 2023-08-21 08:39 | XMS_ITS | Continuity of Care Document ---
Author Name Unknown Organization [facility] Address [address] [place] [address]- Care Team Providers Care Eye Physician Name Role Phone Graciela Nunez MD Primary Care Physician [phone] Encounter [facility] Date(s): 07/16/21 - 08/15/21 [facility] [address] [place], [place] [address] Allergies, Adverse Reactions, Alerts Substance [...] 23-valent vaccine 5 07/31/10 Recorded 1Location History: [place], [place] 2Admin Note: done @ dr jones office 3Location History: [facility] 4Location History: [facility] 5Location History: [facility] Medications alendronate 70 [...] Replace Required Details, Route to Pharmacy Electronically, [facility] #[id number]... Start Date: 01/31/20 Status: Ordered folic acid 1 mg oral tablet 1 mg, 1, tablet, By Mouth, Daily, # 30 tablet, Refills 5, Tot. Refills 5, Maintenance, 01/31/21 16:35:00 EDT, Route to Pharmacy Electronically, [facility] #[id number], 170, cm, 10/02/20 10:06:00EST, Height, 56.3, kg, 11/24/19 22:58:00 EST, Dry W... Start Date: 01/31/21 Status: Ordered furosemide 20 mg oral tablet 1, tablet, By Mouth, Daily, PRN, # 90 tablet, Refills 0, Tot. Refills 0, Maintenance, NEEDED FORLEG SWELLING, 04/19/20 15:50:00 EDT, Route to Pharmacy Electronically, [facility] #[id number],170, cm, 12/13/19 13:51:00 EST, Height, 56.3, kg, 0... Start Date: 04/19/20 Status: Ordered gabapentin 300 mg oral capsule 2, capsule, By Mouth, 3 times a day, # 180 capsule, Refills 1, Tot. Refills 1, Maintenance, 07/28/21 9:58:00 EDT, Route to Pharmacy Electronically, [facility] #[id number], 170, cm, 10/02/20 10:06:00 EST, Height, 56.3, [...] tablet, 1 Refills, Maintenance, 07/01/21 22:21:00 EDT, [facility] #[id number], 170, cm, 10/02/20 10:06:00 EST, Height, 56.3, kg, 11/24/19... Start Date: 07/01/21 Status: Ordered LORazepam 0.5 mg oral tablet 1 tablet = 0.5 mg, By Mouth, 2 times a day, # 28 tablet, 2 Refills, Maintenance, 08/15/21 17:40:00 EDT, [facility] #[id number], 170, cm, 10/02/20 10:06:00 EST, Height, 56.3, kg, 11/24/19 22:58:00 EST, Dry Weight Start Date: 08/15/21 Status: Ordered Metoprolol Succinate ER 25 mg oral tablet, extended release 1 tablet = 25 mg, By Mouth, Daily, # 90 tablet, 1 Refills, Maintenance, 01/29/20 10:50:00 EDT, XL Tablet, [facility] #[id number], 170, cm, 12/13/19 13:51:00 EST, Height, 56.3, [...] 3 Refills, Maintenance, 03/13/21 13:26:00 EDT, Tablet, [facility] #[id number], 170, cm, 10/02/20 10:06:00 EST, Height, 56.3, [...] 02/18/21 16:23:00 EDT, Route to Pharmacy Electronically, [facility] #[id number], Partial fill upon patient request if... Start Date: 02/18/21 Stop Date: 03/04/21 Status: Ordered Tylenol 8 HR Arthritis Pain 650 mg oral tablet, extended release 1 tablet = 650 mg, By Mouth, Every 8 hours, PRN Pain , Moderate, # 100 tablet, 1 Refills, Maintenance, 02/26/21 15:47:00 EDT, ER Tablet, [facility] #[id number], Partial fill upon patient requestif the prescription is for a schedule II opioid ivonne... Start Date: 02/26/21 Status: Ordered Ventolin HFA 108 mcg/inh inhalation aerosol with adapter 2 puffs, Inhalation, 4 times a day, PRN for wheezing, # 18 Gm, 6 Refills, Maintenance, 06/17/20 16:11:00 EDT, Aerosol, [facility] #[id number], 170, cm, 12/13/19 13:51:00 EST, Height, 56.3, kg, 11/24/19 22:58:00 EST, Dry Weight Start Date: 06/17/20 Stop Date: 01/13/21 Status: Ordered Ventolin HFA 108 mcg/inh inhalation aerosol with adapter 2 puffs, Inhalation, 4 times a day, PRN for wheezing, # 1 each, 0 Refills, Maintenance, 10/02/20 10:55:00 EST, Aerosol, [facility]/pharmacy #[id number], 170, cm, 10/02/20 10:06:00 EST, Height, 56.3, kg, 11/24/19 22:58:00 EST, Dry Weight Start Date: 10/02/20 Status: Ordered Vitamin B1 100 mg oral tablet 1, tablet, By Mouth, Daily, # 30 tablet, Refills 7, Tot. Refills 0, Acute, 01/06/21 14:35:00 EST, Route to Pharmacy Electronically, [facility] #[id number], 170, cm, 10/02/20 10:06:00 EST, Height, 56.3, kg, 11/24/19 22:58:00 EST, Dry Weight Start Date: 01/06/21 Status: Ordered Zofran 4 mg oral tablet 1 tablet = 4 mg, By Mouth, 3 times a day, PRN nausea, # 30 tablet, 0 Refills, Maintenance, :17:00 EDT, Tablet, [facility] #[id number], 170, cm, 12/13/19 13:51:00 EST, Height, 56.3, [...]
--- OUTSIDE RECORDS SUMMARY | 2023-08-21 08:40 | XMS_ITS | Continuity of Care Document ---
Author Name Unknown Organization [facility] Address [address] [place] [address]- Care Team Providers Care Kardex Clerk Name Role Phone Graciela Nunez MD Primary Care Physician Encounter [facility] Date(s): 05/01/20 - 07/14/20 [facility] [address] [place] [address]- [facility] Attending Physician: Graciela Nunez MD Allergies, Adverse [...] 23-valent vaccine 5 07/31/10 Recorded 1Location History: [place], [place] 2Admin Note: done @ dr jones office 3Location History: [facility] 4Location History: [facility] 5Location History: [facility] Medications alendronate 70 mg [...] Replace Required Details, Route to Pharmacy Electronically, [facility] #[id number]... Start Date: 01/31/20 Status: Ordered [...] 01/18/20 10:43:00 EDT, Route to Pharmacy Electronically, [facility] #[id number], 170, cm, 12/13/19 13:51:00EST, Height, 56.3, kg, 11/24/19 22:58:00 EST, Dry W... Start Date: 01/18/20 Status: Ordered furosemide 20 mg oral tablet 1, tablet, By Mouth, Daily, PRN, # 90 tablet, Refills 0, Tot. Refills 0, Maintenance, NEEDED FORLEG SWELLING, 04/19/20 15:50:00 EDT, Route to Pharmacy Electronically, [facility] #[id number],170, cm, 12/13/19 13:51:00 EST, Height, 56.3, kg, 0... Start Date: 04/19/20 Status: Ordered gabapentin 300 mg oral capsule See Instructions, TAKE 2 CAPSULES BY MOUTH EVERY MORNING, 1 CAPSULE MID DAY AND 2 CAPSULES EVERY NIGHT AT BEDTIME, # 150 capsule, Refills 1, Maintenance, Instructions Replace Required Details, Route to Pharmacy Electronically, [facility] #[id number]... Start Date: 01/19/20 Status: Ordered Home [...] Refills, Maintenance, 01/29/20 10:50:00 EDT, XL Tablet, [facility] #[id number], 170, cm, 12/13/19 13:51:00 EST, Height, 56.3, [...] 6 Refills, Maintenance, 06/17/20 16:11:00 EDT, Aerosol, [facility] #[id number], 170, cm, 12/13/19 13:51:00 EST, Height, 56.3, kg, 11/24/19 22:58:00 EST, Dry Weight Start Date: 06/17/20 Stop Date: 01/13/21 Status: Ordered Ventolin HFA 108 mcg/inh inhalation aerosol with adapter 2 puffs, Inhalation, 4 times a day, PRN for wheezing, # 18 Gm, 6 Refills, Maintenance, 06/17/20 16:11:00 EDT, Aerosol, [facility] #[id number], 170, cm, 12/13/19 13:51:00 EST, Height, 56.3, kg, 11/24/19 22:58:00 EST, Dry Weight Start Date: 06/17/20 Stop Date: 01/13/21 Status: Ordered Vitamin B1 100 mg oral tablet 1, tablet, By Mouth, Daily, # 30 tablet, Refills 11, Tot. Refills 0, Acute, 12/18/19 14:10:00 EST, Route to Pharmacy Electronically, [facility] #[id number], 170, cm, 12/13/19 13:51:00 EST, Height, 56.3, kg, 11/24/19 22:58:00 EST, Dry Weight Start Date: 12/18/19 Status: Ordered Zofran 4 mg oral tablet 1 tablet = 4 mg, By Mouth, 3 times a day, PRN nausea, # 30 tablet, 0 Refills, Maintenance, :17:00 EDT, Tablet, [facility] #[id number], 170, cm, 12/13/19 13:51:00 EST, Height, 56.3, [...] Type Response Smoking Status Current every day sm oker; Tobacco use times per day: smokes about 1.5 packs per day; entered on: 04/16/16 Sex
--- OUTSIDE RECORDS SUMMARY | 2023-08-21 08:40 | XMS_ITS | Continuity of Care Document ---
Author Name Unknown Organization [facility] Address [address] [place] [address]- Care Team Providers Care Chief Radiation Therapist Name Role Phone Mayra ORTIZ, Graciela Lares Primary Care Physician Encounter [facility] Date(s): 03/12/21 - 04/11/21 [facility] [address] [place], [place] [address] Allergies, Adverse Reactions, Alerts Substance [...] 23-valent vaccine 5 07/31/10 Recorded 1Location History: [place], [place] 2Admin Note: done @ dr jones office 3Location History: [facility] 4Location History: [facility] 5Location History: [facility] Medications alendronate 70 mg oral [...] Replace Required Details, Route to Pharmacy Electronically, [facility] #[id number]... Start Date: 01/31/20 Status: Ordered folic acid 1 mg oral tablet 1 mg, 1, tablet, By Mouth, Daily, # 30 tablet, Refills 5, Tot. Refills 5, Maintenance, 01/31/21 16:35:00 EDT, Route to Pharmacy Electronically, [facility] #[id number], 170, cm, 10/02/20 10:06:00EST, Height, 56.3, kg, 11/24/19 22:58:00 EST, Dry W... Start Date: 01/31/21 Status: Ordered furosemide 20 mg oral tablet 1, tablet, By Mouth, Daily, PRN, # 90 tablet, Refills 0, Tot. Refills 0, Maintenance, NEEDED FORLEG SWELLING, 04/19/20 15:50:00 EDT, Route to Pharmacy Electronically, [facility] #[id number],170, cm, 12/13/19 13:51:00 EST, Height, 56.3, kg, 0... Start Date: 04/19/20 Status: Ordered gabapentin 300 mg oral capsule 600 mg, 2, capsule, By Mouth, 3 times a day, # 180 capsule, Refills 3, Tot. Refills 3, Maintenance,02/03/21 12:09:00 EDT, Route to Pharmacy Electronically, [facility] #[id number], 170, cm, 10/02/20 10:06:00 EST, Height, 56.3, kg, 11/24/19 22:58:... Start Date: 02/03/21 Status: Ordered gabapentin 300 mg oral capsule 2, capsule, By Mouth, 3 times a day, # 180 capsule, Refills 0, Tot. Refills 0, Maintenance, 03/25/21 9:48:00 EDT, Route to Pharmacy Electronically, [facility] #[id number], 170, cm, 10/02/20 10:06:00 EST, Height, 56.3, [...] Refills, Maintenance, 01/29/20 10:50:00 EDT, XL Tablet, [facility] #[id number], 170, cm, 12/13/19 13:51:00 EST, Height, 56.3, [...] 3 Refills, Maintenance, 03/13/21 13:26:00 EDT, Tablet, [facility] #[id number], 170, cm, 10/02/20 10:06:00 EST, Height, 56.3, [...] 02/18/21 16:23:00 EDT, Route to Pharmacy Electronically, [facility] #[id number], Partial fill upon patient request if... Start Date: 02/18/21 Stop Date: 03/04/21 Status: Ordered Tylenol 8 HR Arthritis Pain 650 mg oral tablet, extended release 1 tablet = 650 mg, By Mouth, Every 8 hours, PRN Pain , Moderate, # 100 tablet, 1 Refills, Maintenance, 02/26/21 15:47:00 EDT, ER Tablet, [facility] #[id number], Partial fill upon patient requestif the prescription is for a schedule II opioid ivonne... Start Date: 02/26/21 Status: Ordered Ventolin HFA 108 mcg/inh inhalation aerosol with adapter 2 puffs, Inhalation, 4 times a day, PRN for wheezing, # 18 Gm, 6 Refills, Maintenance, 06/17/20 16:11:00 EDT, Aerosol, [facility] #[id number], 170, cm, 12/13/19 13:51:00 EST, Height, 56.3, [...] 01/06/21 14:35:00 EST, Route to Pharmacy Electronically, [facility] #[id number], 170, cm, 10/02/20 10:06:00 EST, Height, 56.3, kg, 11/24/19 22:58:00 EST, Dry Weight Start Date: 01/06/21 Status: Ordered Zofran 4 mg oral tablet 1 tablet = 4 mg, By Mouth, 3 times a day, PRN nausea, # 30 tablet, 0 Refills, Maintenance, :17:00 EDT, Tablet, [facility] #[id number], 170, cm, 12/13/19 13:51:00 EST, Height, 56.3, [...]
--- OUTSIDE RECORDS SUMMARY | 2023-08-21 08:40 | XMS_ITS | Continuity of Care Document ---
Author Name Unknown Organization [facility] Address [address] [place] [address]- Care Team Providers Care Office Clerk Routine Name Role Phone Graciela Nunez MD Primary Care Physician [place] [facility] Date(s): 12/02/21 - 01/01/22 [facility] [address] [place], [place] [address] Allergies, Adverse Reactions, Alerts [...] 23-valent vaccine 6 07/31/10 Recorded 1Result Comment: [id number] given w/out incident 2Location History: [place], [place] 3Admin Note: done @ dr jones office 4Location History: [facility] 5Location History: [facility] 6Location History: [facility] Medications aspirin 81 mg oral delayed [...] 10/22/21 15:09:00 EST, Route to Pharmacy Electronically, [facility][id number], Partial fill upon patient request if the pr... Start Date: 10/22/21 Status: Ordered diltiazem 180 mg/24 hours oral capsule, extended release 180 mg, 1, capsule, By Mouth, Daily, # 30 capsule, Refills 0, Tot. Refills 0, Maintenance, 11/06/2209:09:00 EST, Route to Pharmacy Electronically, [facility] #[id number], Partial fill upon patient request if the prescription is for a schedule II... Start Date: 11/06/21 Status: Ordered Flonase 50 mcg/inh nasal spray 1 sprays, Nares, Both, Daily in AM, # 16 Gm, 4 Refills, Maintenance, 12/03/21 12:34:00 EST, [place], [facility] #[id number], Partial fill upon patient request if the prescription is for a scheduleII opioid drug., 1 sprays Nares, Both Daily in AM,... Start Date: 12/03/21 Status: Ordered folic acid 1 mg oral tablet 1 mg, 1, tablet, By Mouth, Daily, # 30 tablet, Refills 5, Tot. Refills 5, Maintenance, 01/31/21 16:35:00 EDT, Route to Pharmacy Electronically, [facility] #[id number], 170, cm, 10/02/20 10:06:00EST, Height, 56.3, kg, [...] 08/26/21 10:50:00 EDT, Route to Pharmacy Electronically, [facility] #[id number], 162.56, cm, 08/22/21 2:36:00 EDT, Height, 52.65, kg, 08/22/21 2:36:00 EDT... Start Date: 08/26/21 Status: Ordered lactulose 10 gm/15 ml oral syrup 15 mL = 10 Gm, By Mouth, Daily, PRN as needed for constipation, for 10 days, # 150 mL, 0 Refills, Acute 01/04/22 10:44:00 EST, 12/25/21 10:44:00 EST, Syrup, [facility] #[id number], Partial fill upon patient request if the [...] Acute 01/10/22 10:26:00EST, 12/17/21 10:18:00 EST, Suspension, [facility] #[id number], Partial fill upon patient request if the prescription is for a schedule II opioid... Start Date: 12/17/21 Stop Date: 01/10/22 Status: Ordered nicotine 21 mg/24 hr transdermal film, extended release 1 patch, Topically, Daily, for 6 week(s), # 42 patch, 0 Refills, Acute 02/06/22 16:15:00 EDT, 12/26/21 16:15:00 EST, Patch, [facility] #[id number], Partial fill upon patient request if the prescription is for a schedule II opioid drug., 1 patch T... Start Date: 12/26/21 Stop Date: 02/06/22 Status: Ordered nicotine 7 mg/24 hr transdermal film, extended release 1 patch, Topically, Daily, for 14 days, # 14 patch, 0 Refills, Acute 01/05/22 14:10:00 EST, 12/22/21 14:10:00 EST, Patch, [facility] #[id number], Partial fill upon patient request if the [...] 0 Refills, Maintenance, 12/22/21 14:25:00 EST, Tablet, [facility] #[id number], Partial fill upon patient requ... Start Date: [...] 10/22/21 15:09:00 EST, Route to Pharmacy Electronically, [facility] #[id number] Tablet, Partial fill upon patient request... Start [...] Refills, Maintenance, 02/26/21 15:47:00 EDT, ER Tablet, [facility] #09683, Partial fill upon patient requestif the prescription [...] 11 Refills, Maintenance, 12/02/21 10:55:00 EST, Capsule, [facility] #[id number], Partial fill upon patient request if the [...]
--- OUTSIDE RECORDS SUMMARY | 2023-08-21 08:40 | XMS_ITS | Continuity of Care Document ---
Author Name Unknown Organization [facility] Address [address] [place] [address]- Care Team Providers Care Shape Hand Name Role Phone Graciela Nunez MD Primary Care Physician Encounter [facility] Date(s): 11/19/21 - 12/19/21 [facility] [address] [place], [place] [address] Allergies, Adverse Reactions, Alerts Substance Reaction [...] 23-valent vaccine 6 07/31/10 Recorded 1Result Comment: [id number] given w/out incident 2Location History: [place], [place] 3Admin Note: done @ dr jones office 4Location History: [facility] 5Location History: [facility] 6Location History: [facility] Medications aspirin 81 mg [...] 10/22/21 15:09:00 EST, Route to Pharmacy Electronically, [facility]#[id number], Partial fill upon patient request if the pr... Start Date: 10/22/21 Status: Ordered diltiazem 180 mg/24 hours oral capsule, extended release 180 mg, 1, capsule, By Mouth, Daily, # 30 capsule, Refills 0, Tot. Refills 0, Maintenance, 11/06/2209:09:00 EST, Route to Pharmacy Electronically, [facility] #[id number], Partial fill upon patient request if the prescription is for a schedule II... Start Date: 11/06/21 Status: Ordered Flonase 50 mcg/inh nasal spray 1 sprays, Nares, Both, Daily in AM, # 16 Gm, 4 Refills, Maintenance, 12/03/21 12:34:00 EST, [place], [facility] #[id number], Partial fill upon patient request if the prescription is for a scheduleII opioid drug., 1 sprays Nares, Both Daily in AM,... Start Date: 12/03/21 Status: Ordered folic acid 1 mg oral tablet 1 mg, 1, tablet, By Mouth, Daily, # 30 tablet, Refills 5, Tot. Refills 5, Maintenance, 01/31/21 16:35:00 EDT, Route to Pharmacy Electronically, [facility] #[id number], 170, cm, 10/02/20 10:06:00EST, Height, 56.3, kg, [...] 08/26/21 10:50:00 EDT, Route to Pharmacy Electronically, [facility] #[id number], 162.56, cm, 08/22/21 2:36:00 EDT, Height, 52.65, kg, 08/22/21 2:36:00 EDT... Start Date: 08/26/21 Status: Ordered LORazepam 0.5 mg oral tablet 1 tablet = 0.5 mg, By Mouth, 3 times a day, PRN as needed for anxiety, # 60 tablet, 1 Refills, Maintenance, 12/17/21 10:15:00 EST, [facility] #[id number], new dosage, 173, cm, 11/06/21 7:58:00 EST, [...] Acute 01/10/22 10:26:00EST, 12/17/21 10:18:00 EST, Suspension, [facility] #[id number], Partial fill upon patient request if the prescription is for a schedule II opioid... Start Date: 12/17/21 Stop Date: 01/10/22 Status: Ordered multivitamin Multiple Vitamins oral tablet 1 tablet, By Mouth, Daily, # 30 tablet, 11 Refills, Maintenance, 11/26/21 13:34:00 EST, Tablet, [facility] #[id number], Partial fill upon patient request if the [...] 3 Refills, Maintenance, 03/13/21 13:26:00 EDT, Tablet, [facility] #[id number], 170, cm, 10/02/20 10:06:00 EST, Height, 56.3, kg, 11/24/19 22:58:00 EST, Dry Weight Start Date: 03/13/21 Status: Ordered Senna 8.6 mg oral tablet 17.2 mg, 2, tablet, By Mouth, Daily at bedtime, PRN, # 100 tablet, Refills 0, Tot. Refills 0, Maintenance, for constipation, 10/22/21 15:09:00 EST, Route to Pharmacy Electronically, [facility] #[id number] Tablet, Partial fill upon patient request... Start [...] Refills, Maintenance, 02/26/21 15:47:00 EDT, ER Tablet, [facility] #[id number], Partial fill upon patient requestif the prescription is for a schedule II opioid ivonne... Start Date: 02/26/21 Status: Ordered Ventolin HFA 108 mcg/inh inhalation aerosol with adapter 2 puffs, Inhalation, 4 times a day, PRN for wheezing, # 1 each, 0 Refills, Maintenance, 10/02/20 10:55:00 EST, Aerosol, [facility] #[id number], 170, cm, 10/02/20 10:06:00 EST, Height, 56.3, kg, 11/24/19 22:58:00 EST, Dry Weight Start Date: 10/02/20 Status: Ordered Vitamin D3 1000 intl units oral capsule 1 capsule = 25 mcg, By Mouth, Daily, # 30 capsule, 11 Refills, Maintenance, 12/02/21 10:55:00 EST, Capsule, [facility] #[id number], Partial fill upon patient request if the [...]
--- OUTSIDE RECORDS SUMMARY | 2023-08-21 08:40 | XMS_ITS | Continuity of Care Document ---
Author Name Unknown Organization [facility] Address [address] [place] [address]- Care Team Providers Care Wharf Tender Helper Name Role Phone Mayra ORTIZ, Graciela Lares Primary Care Physician Encounter [facility] Date(s): 06/11/20 - 07/11/20 [facility] [address] [place] [address]- [facility] Allergies, Adverse Reactions, Alerts Substance Reaction Severity [...] 23-valent vaccine 5 07/31/10 Recorded 1Location History: [place], [place] 2Admin Note: done @ dr jones office 3Location History: [facility] 4Location History: [facility] 5Location History: [facility] Medications alendronate 70 mg oral [...] Replace Required Details, Route to Pharmacy Electronically, [email or web address] #[id number]... Start Date: 01/31/20 Status: Ordered [...] 01/18/20 10:43:00 EDT, Route to Pharmacy Electronically, [facility] #[id number], 170, cm, 12/13/19 13:51:00EST, Height, 56.3, kg, 11/24/19 22:58:00 EST, Dry W... Start Date: 01/18/20 Status: Ordered furosemide 20 mg oral tablet 1, tablet, By Mouth, Daily, PRN, # 90 tablet, Refills 0, Tot. Refills 0, Maintenance, NEEDED FORLEG SWELLING, 04/19/20 15:50:00 EDT, Route to Pharmacy Electronically, [facility] #[id number],170, cm, 12/13/19 13:51:00 EST, Height, 56.3, kg, 0... Start Date: 04/19/20 Status: Ordered gabapentin 300 mg oral capsule See Instructions, TAKE 2 CAPSULES BY MOUTH EVERY MORNING, 1 CAPSULE MID DAY AND 2 CAPSULES EVERY NIGHT AT BEDTIME, # 150 capsule, Refills 1, Maintenance, Instructions Replace Required Details, Route to Pharmacy Electronically, [facility] #[id number]... Start Date: 01/19/20 Status: Ordered Home [...] Refills, Maintenance, 01/29/20 10:50:00 EDT, XL Tablet, [facility] #[id number], 170, cm, 12/13/19 13:51:00 EST, Height, 56.3, [...] 6 Refills, Maintenance, 06/17/20 16:11:00 EDT, Aerosol, [facility] #[id number], 170, cm, 12/13/19 13:51:00 EST, Height, 56.3, kg, 11/24/19 22:58:00 EST, Dry Weight Start Date: 06/17/20 Stop Date: 01/13/21 Status: Ordered Ventolin HFA 108 mcg/inh inhalation aerosol with adapter 2 puffs, Inhalation, 4 times a day, PRN for wheezing, # 18 Gm, 6 Refills, Maintenance, 06/17/20 16:11:00 EDT, Aerosol, [facility] #[id number], 170, cm, 12/13/19 13:51:00 EST, Height, 56.3, kg, 11/24/19 22:58:00 EST, Dry Weight Start Date: 06/17/20 Stop Date: 01/13/21 Status: Ordered Vitamin B1 100 mg oral tablet 1, tablet, By Mouth, Daily, # 30 tablet, Refills 11, Tot. Refills 0, Acute, 12/18/19 14:10:00 EST, Route to Pharmacy Electronically, [facility] #[id number], 170, cm, 12/13/19 13:51:00 EST, Height, 56.3, kg, 11/24/19 22:58:00 EST, Dry Weight Start Date: 12/18/19 Status: Ordered Zofran 4 mg oral tablet 1 tablet = 4 mg, By Mouth, 3 times a day, PRN nausea, # 30 tablet, 0 Refills, Maintenance, 209:17:00 EDT, Tablet, [facility] #[id number], 170, cm, 12/13/19 13:51:00 EST, Height, 56.3, [...]
--- OUTSIDE RECORDS SUMMARY | 2023-08-21 08:40 | XMS_ITS | Continuity of Care Document ---
Author Name Unknown Organization [facility] Address [address] [place] [address]- Care Team Providers Care Workforce Staffing Advisor Name Role Phone Graciela Nunez MD Primary Care Physician [phone] [place] [facility] [place] 12/25/21 - 01/24/22 [facility] [address] [place], [place] [address] Allergies, Adverse Reactions, Alerts [...] 23-valent vaccine 6 07/31/10 Recorded 1Result Comment: [id number] given w/out incident 2Location History: [place], [place] 3Admin Note: done @ dr jones office 4Location History: [facility] 5Location History: [facility] 6Location History: [facility] Medications aspirin 81 mg oral delayed [...] 01/15/22 12:48:00 EDT, Route to Pharmacy Electronically, [facility] #[id number], Partial fill upon patient request if the prescription is for a schedule... Start Date: 01/15/22 Status: Ordered Colace sodium 100 mg oral capsule 100 mg, 1, capsule, By Mouth, 2 times a day, PRN, # 60 capsule, Refills 5, Tot. Refills 5, Maintenance, for constipation, 01/14/22 11:17:00 EDT, Route to Pharmacy Electronically, [facility][id number], Partial fill upon patient request if the pr... Start Date: 01/14/22 Status: Ordered diltiazem 180 mg/24 hours oral capsule, extended release 180 mg, 1, capsule, By Mouth, Daily, # 30 capsule, Refills 0, Tot. Refills 0, Maintenance, 11/06/2209:09:00 EST, Route to Pharmacy Electronically, [facility] #[id number], Partial fill upon patient request if the prescription is for a schedule II... Start Date: 11/06/21 Status: Ordered Flonase 50 mcg/inh nasal spray 1 sprays, Nares, Both, Daily in AM, # 16 Gm, 4 Refills, Maintenance, 12/03/21 12:34:00 EST, [place], [facility] #[id number], Partial fill upon patient request if the prescription is for a scheduleII opioid drug., 1 sprays Nares, Both Daily in AM,... Start Date: 12/03/21 Status: Ordered folic acid 1 mg oral tablet 1 mg, 1, tablet, By Mouth, Daily, # 30 tablet, Refills 5, Tot. Refills 5, Maintenance, 01/31/21 16:35:00 EDT, Route to Pharmacy Electronically, [facility] #[id number], 170, cm, 10/02/20 10:06:00EST, Height, 56.3, kg, [...] 08/26/21 10:50:00 EDT, Route to Pharmacy Electronically, [facility] #[id number], 162.56, cm, 08/22/21 2:36:00 EDT, Height, 52.65, kg, 08/22/21 2:36:00 EDT... Start Date: 08/26/21 Status: Ordered lactulose 10 gm/15 ml oral syrup 15 mL = 10 Gm, By Mouth, Every 72 hours, PRN as needed for constipation, # 300 mL, 5 Refills, Maintenance, 01/05/22 10:50:00 EST, Syrup, [facility] #[id number], Partial fill upon patient requestif the prescription [...] 02/06/22 16:15:00 EDT, 12/26/21 16:15:00 EST, [place], [facility] #[id number], Partial fill upon patient request if the [...] 0 Refills, Maintenance, 12/22/21 14:25:00 EST, Tablet, [facility] #[id number], Partial fill upon patient requ... Start Date: 12/22/21 Stop Date: 12/25/21 Status: Ordered predniSONE 10 mg oral tablet See Instructions, 4 tabs x 3 days, 3 tabs x 3 days, 2 tabs x 3 days, 1 tab x 3 days, # 30 tablet, 0Refills, Acute 02/07/22 11:15:00 EDT, 01/05/22 11:08:00 EST, Tablet, [facility] #[id number], Partial fill upon patient request if the [...] 10/22/21 15:09:00 EST, Route to Pharmacy Electronically, [facility] #[id number] Tablet, Partial fill upon patient request... Start [...] Refills, Maintenance, 02/26/21 15:47:00 EDT, ER Tablet, [facility] #[id number], Partial fill upon patient requestif the prescription is for a schedule II opioid ivonne... Start Date: 02/26/21 Status: Ordered Ventolin HFA 108 mcg/inh inhalation aerosol with adapter 2 puffs, Inhalation, 4 times a day, PRN for wheezing, # 1 each, 0 Refills, Maintenance, 10/02/20 10:55:00 EST, Aerosol, [facility]/pharmacy #[id number], 170, cm, 10/02/20 10:06:00 EST, Height, 56.3, kg, 11/24/19 22:58:00 EST, Dry Weight Start Date: 10/02/20 Status: Ordered Vitamin D3 1000 intl units oral capsule 1 capsule = 25 mcg, By Mouth, Daily, # 30 capsule, 11 Refills, Maintenance, 12/02/21 10:55:00 EST, Capsule, [facility] #[id number], Partial fill upon patient request if the [...]
--- OUTSIDE RECORDS SUMMARY | 2023-08-21 08:40 | XMS_ITS | Continuity of Care Document ---
Author Name Unknown Organization [facility] Address [address] [place] [address]- Care Team Providers Care Clinical Appeals Auditor Name Role Phone Graciela Nunez MD Primary Care Physician [phone] [place] [facility] [place] - 07/29/23 [facility] [address] [place], [place] [address] Allergies, Adverse Reactions, Alerts Substance Reaction [...] 23-valent vaccine 6 07/31/10 Recorded 1Result Comment: [id number] given w/out incident 2Location History: [place], [place] 3Admin Note: done @ dr jones office 4Location History: [facility] 5Location History: [facility] 6Location History: [facility] Medications acetaminophen 325 mg oral tablet [...] 05/25/23 15:31:00 EDT, Route to Pharmacy Electronically, [facility]/pharmacy #[id number], Partial fill upon patient request if the [...] 12/03/22 9:01:00 EST, Route to Pharmacy Electronically, [facility]/pharmacy #[id number], 170, cm, 02/04/22 11:19:00 EDT, Height, 44.1, kg, 12/20/21 16:05:00 EST, Dry Weight Start Date: 12/03/22 Status: Ordered gabapentin 300 mg oral capsule 2, capsule, By Mouth, 3 times a day, # 180 capsule, Refills 5, Tot. Refills 5, Maintenance, 08/13/22 13:03:00 EDT, Route to Pharmacy Electronically, [facility]/pharmacy #[id number], 170, cm, 02/04/22 11:19:00 EDT, Height, 44.1, kg, 12/20/21 16:05:00 EST, Dry Weight Start Date: 08/13/22 Status: Ordered hydrOXYzine hydrochloride 10 mg oral tablet 3 tablet = 30 mg, By Mouth, 3 times a day, PRN NEEDED FOR ANXIETY, # 270 tablet, 3 Refills, Maintenance, 03/01/23 12:03:00 EDT, [facility]/pharmacy #[id number], 170, cm, 02/04/22 11:19:00 [...] 3 Refills, Maintenance, 12/16/22 9:12:00 EST, Capsule, [facility]/pharmacy #[id number], Partial fill upon patient [...] 30 capsule, 0 Refills, Maintenance, 06/24/23 19:50:00 EDT,[facility]/pharmacy #[id number], Partial fill upon patient [...] tablet, 0 Refills, Maintenance, 06/23/23 17:30:00 EDT, [facility]/pharmacy #[id number], 170, cm, 04/19/23 7:05:00 EDT, Height, 45.2, kg,... Start Date: 06/23/23 Status: Ordered Ventolin HFA 108 mcg/inh inhalation aerosol with adapter 2 puffs, Inhalation, 4 times a day, PRN for wheezing, # 1 each, 0 Refills, Maintenance, 06/24/23 19:49:00 EDT, Aerosol, [facility]/pharmacy #[id number], 170, cm, 04/19/23 7:05:00 EDT, Height, 45.2, kg, 05/11/23 2:35:00 EDT, Dry Weight Start Date: 06/24/23 Status: Ordered Vitamin D3 1000 intl units oral capsule 1 capsule = 25 mcg, By Mouth, Daily, # 30 capsule, 11 Refills, Maintenance, 12/03/22 9:00:00 EST, Capsule, [facility]/pharmacy #[id number], Partial fill upon patient [...] Team Personnel Name: Herminia Parker RN Position: [facility] RN Member Role: Primary Care Nurse Name: Belgica Mckeon RN Position: [facility] RN Member Role: Primary Care Nurse Name: Morgan Abbott MD Position: [facility] Renal MD Member Role: Lifetime Consulting Physician Address: Address: [address] [place] [address] Name: Bernice Molina RN Position: [facility] RN Member Role: Primary Care Nurse Name: Graciela Nunez MD Position: [facility] Physician - Primary Care Member Role: PCP Address: Address: [address] [place] [address]- Name: Maryam Camara RN Position: [facility] RN Member Role: Primary Care Nurse Name: Josemanuel Hawkins RN Position: [facility] RN Member Role: Primary Care Nurse Name: Milana Garland RN Position: [facility] RN Member Role: Primary Care Nurse Name: Mckay Esquivel MD Position: [facility] Renal MD Member Role: Lifetime Consulting Physician Address: Address: [address] [place] [address], [address] Name: Rylie Francois RN Position: [facility] RN Member Role: Primary Care Nurse Name: Luisa Storey RN Position: [facility] RN Member Role: Primary Care Nurse Name: Elizabeth Ferris RN Position: [facility] RN Member Role: Primary Care Nurse [...] Care Nurse Name: Paty Ventura RN Position: [facility] RN Member Role: Primary Care Nurse Name: Ninfa Soto RN Position: [facility] RN Member Role: Primary Care Nurse Name: Romeo Reid MD Position: [facility] Renal MD Member Role: Lifetime Consulting Physician Address: Address: [address] [place] [address] [facility], [address] Name: Olga Valladares RN Position: [facility] RN Member Role: Primary Care Nurse Name: Karyn Quezada RN Position: [facility] RN Member Role: Primary Care Nurse Name: Ruby Alexandre RN Position: [facility] RN Member Role: Primary Care Nurse Address: Address: [address] [place] [address]- Name: Celso Lawson MD Position: [facility] Renal MD Member Role: Lifetime Consulting Physician Address: Address: [address] [place] [address] [facility] [address] Name: Alyssa Camacho RN Position: S RN Member Role: Primary Care Nurse Name: Keely Pascal RN Position: S RN Member Role: Primary Care Nurse Name: Chloe Fisher LPN Position: S RN Member Role: Primary Care Nurse Care Team Related Persons Name: LAZARUS OSBORNE Address: [place] [address] Name: KAVON NICOLE Address: [address] [place] [address] Name: PT, STATES NONE
--- OUTSIDE RECORDS SUMMARY | 2023-08-21 08:40 | XMS_ITS | Continuity of Care Document ---
Author Name Unknown Organization [facility] Address [address] [place] [address]- Care Team Providers Care Vessel Slag Worker Name Role Phone Graciela Nunez MD Primary Care Physician [phone] [facility] [place] Date(s): 11/19/21 - 12/19/21 [facility] [address] [place], [place] [address] Allergies, Adverse Reactions, Alerts Substance [...] 23-valent vaccine 6 07/31/10 Recorded 1Result Comment: [id number] given w/out incident 2Location History: [place], [place] 3Admin Note: done @ dr jones office 4Location History: [facility] 5Location History: [facility] 6Location History: [facility] Medications aspirin 81 mg [...] 10/22/21 15:09:00 EST, Route to Pharmacy Electronically, [facility]#[id number], Partial fill upon patient request if the pr... Start Date: 10/22/21 Status: Ordered diltiazem 180 mg/24 hours oral capsule, extended release 180 mg, 1, capsule, By Mouth, Daily, # 30 capsule, Refills 0, Tot. Refills 0, Maintenance, 11/06/2209:09:00 EST, Route to Pharmacy Electronically, [facility] #[id number], Partial fill upon patient request if the prescription is for a schedule II... Start Date: 11/06/21 Status: Ordered Flonase 50 mcg/inh nasal spray 1 sprays, Nares, Both, Daily in AM, # 16 Gm, 4 Refills, Maintenance, 12/03/21 12:34:00 EST, [place], [facility] #[id number], Partial fill upon patient request if the prescription is for a scheduleII opioid drug., 1 sprays Nares, Both Daily in AM,... Start Date: 12/03/21 Status: Ordered folic acid 1 mg oral tablet 1 mg, 1, tablet, By Mouth, Daily, # 30 tablet, Refills 5, Tot. Refills 5, Maintenance, 01/31/21 16:35:00 EDT, Route to Pharmacy Electronically, [facility] #[id number], 170, cm, 10/02/20 10:06:00EST, Height, 56.3, kg, [...] 08/26/21 10:50:00 EDT, Route to Pharmacy Electronically, [facility] #[id number], 162.56, cm, 08/22/21 2:36:00 EDT, Height, 52.65, kg, 08/22/21 2:36:00 EDT... Start Date: 08/26/21 Status: Ordered LORazepam 0.5 mg oral tablet 1 tablet = 0.5 mg, By Mouth, 3 times a day, PRN as needed for anxiety, # 60 tablet, 1 Refills, Maintenance, 12/17/21 10:15:00 EST, [facility] #[id number], new dosage, 173, cm, 11/06/21 7:58:00 EST, [...] Acute 01/10/22 10:26:00EST, 12/17/21 10:18:00 EST, Suspension, [facility] #[id number], Partial fill upon patient request if the prescription is for a schedule II opioid... Start Date: 12/17/21 Stop Date: 01/10/22 Status: Ordered multivitamin Multiple Vitamins oral tablet 1 tablet, By Mouth, Daily, # 30 tablet, 11 Refills, Maintenance, 11/26/21 13:34:00 EST, Tablet, [facility] #[id number], Partial fill upon patient request if the [...] 3 Refills, Maintenance, 03/13/21 13:26:00 EDT, Tablet, [facility] #[id number], 170, cm, 10/02/20 10:06:00 EST, Height, 56.3, kg, 11/24/19 22:58:00 EST, Dry Weight Start Date: 03/13/21 Status: Ordered Senna 8.6 mg oral tablet 17.2 mg, 2, tablet, By Mouth, Daily at bedtime, PRN, # 100 tablet, Refills 0, Tot. Refills 0, Maintenance, for constipation, 10/22/21 15:09:00 EST, Route to Pharmacy Electronically, [facility] #[id number] Tablet, Partial fill upon patient request... Start [...] Refills, Maintenance, 02/26/21 15:47:00 EDT, ER Tablet, [facility] #[id number], Partial fill upon patient requestif the prescription is for a schedule II opioid ivonne... Start Date: 02/26/21 Status: Ordered Ventolin HFA 108 mcg/inh inhalation aerosol with adapter 2 puffs, Inhalation, 4 times a day, PRN for wheezing, # 1 each, 0 Refills, Maintenance, 10/02/20 10:55:00 EST, Aerosol, [facility]/pharmacy #[id number], 170, cm, 10/02/20 10:06:00 EST, Height, 56.3, kg, 11/24/19 22:58:00 EST, Dry Weight Start Date: 10/02/20 Status: Ordered Vitamin D3 1000 intl units oral capsule 1 capsule = 25 mcg, By Mouth, Daily, # 30 capsule, 11 Refills, Maintenance, 12/02/21 10:55:00 EST, Capsule, [facility] #[id number], Partial fill upon patient request if the [...]
--- OUTSIDE RECORDS SUMMARY | 2023-08-21 08:40 | XMS_ITS | Continuity of Care Document ---
Author Name Unknown Organization [facility] Address [address] [place] [address]- Care Team Providers Care Webmethods Consultant Name Role Phone Graciela Nunez MD Primary Care Physician [phone] [place] [facility] [place] [facility] [place] 06/14/20 - 07/14/20 [facility] [address] [place] [address] Attending [facility]ician: Dennys Fabian Admitting Physician: Dennys Fabian Referring Physician: AdmtrDennys Allergies, Adverse Reactions, Alerts Substance Reaction Severity [...] 23-valent vaccine 5 07/31/10 Recorded 1Location History: [place], [place] 2Admin Note: done @ dr jones office 3Location History: [facility] 4Location History: [facility] 5Location History: [facility] Medications alendronate 70 mg [...] Replace Required Details, Route to Pharmacy Electronically, [facility] #[id number]... Start Date: 01/31/20 Status: Ordered erythromycin [...] 01/18/20 10:43:00 EDT, Route to Pharmacy Electronically, [facility] #[id number], 170, cm, 12/13/19 13:51:00EST, Height, 56.3, kg, 11/24/19 22:58:00 EST, Dry W... Start Date: 01/18/20 Status: Ordered furosemide 20 mg oral tablet 1, tablet, By Mouth, Daily, PRN, # 90 tablet, Refills 0, Tot. Refills 0, Maintenance, NEEDED FORLEG SWELLING, 04/19/20 15:50:00 EDT, Route to Pharmacy Electronically, [facility] #[id number],170, cm, 12/13/19 13:51:00 EST, Height, 56.3, kg, 0... Start Date: 04/19/20 Status: Ordered gabapentin 300 mg oral capsule See Instructions, TAKE 2 CAPSULES BY MOUTH EVERY MORNING, 1 CAPSULE MID DAY AND 2 CAPSULES EVERY NIGHT AT BEDTIME, # 150 capsule, Refills 1, Maintenance, Instructions Replace Required Details, Route to Pharmacy Electronically, [facility] #03... Start Date: 01/19/20 Status: Ordered Home [...] Refills, Maintenance, 01/29/20 10:50:00 EDT, XL Tablet, [facility] #[id number], 170, cm, 12/13/19 13:51:00 EST, Height, 56.3, [...] 6 Refills, Maintenance, 06/17/20 16:11:00 EDT, Aerosol, [facility] #[id number], 170, cm, 12/13/19 13:51:00 EST, Height, 56.3, kg, 11/24/19 22:58:00 EST, Dry Weight Start Date: 06/17/20 Stop Date: 01/13/21 Status: Ordered Ventolin HFA 108 mcg/inh inhalation aerosol with adapter 2 puffs, Inhalation, 4 times a day, PRN for wheezing, # 18 Gm, 6 Refills, Maintenance, 06/17/20 16:11:00 EDT, Aerosol, [facility] #[id number], 170, cm, 12/13/19 13:51:00 EST, Height, 56.3, kg, 11/24/19 22:58:00 EST, Dry Weight Start Date: 06/17/20 Stop Date: 01/13/21 Status: Ordered Vitamin B1 100 mg oral tablet 1, tablet, By Mouth, Daily, # 30 tablet, Refills 11, Tot. Refills 0, Acute, 12/18/19 14:10:00 EST, Route to Pharmacy Electronically, [facility] #[id number], 170, cm, 12/13/19 13:51:00 EST, Height, 56.3, kg, 11/24/19 22:58:00 EST, Dry Weight Start Date: 12/18/19 Status: Ordered Zofran 4 mg oral tablet 1 tablet = 4 mg, By Mouth, 3 times a day, PRN nausea, # 30 tablet, 0 Refills, Maintenance, :17:00 EDT, Tablet, [facility] #[id number], 170, cm, 12/13/19 13:51:00 EST, Height, 56.3, [...]
--- OUTSIDE RECORDS SUMMARY | 2023-08-21 08:40 | XMS_ITS | Continuity of Care Document ---
Author Name Unknown Organization [facility] Address [address] [place] [address]- Care Team Providers Care French Tutor Name Role Phone Graciela Nunez MD Primary Care Physician En[facility] [place] Date(s): 04/29/23 - 05/29/23 [facility] [address] [place], [place] [address] Allergies, Adverse Reactions, Alerts Substance [...] 23-valent vaccine 6 07/31/10 Recorded 1Result Comment: [id number] given w/out incident 2Location History: [place], [place] 3Admin Note: done @ dr jones office 4Location History: [facility] 5Location History: [facility] 6Location History: [facility] Medications albuterol-ipratropium 3 mg-0.5 [...] 05/25/23 15:31:00 EDT, Route to Pharmacy Electronically, [facility]/pharmacy #[id number], Partial fill upon patient request if the [...] A DAY NEEDED FOR CONSTIPATION. FILLED AT [facility] Start Date: 03/18/23 Status: Ordered folic acid 1 mg oral tablet 1 mg, 1, tablet, By Mouth, Daily, # 30 tablet, Refills 11, Tot. Refills 11, Maintenance, 12/03/22 9:01:00 EST, Route to Pharmacy Electronically, [facility]/pharmacy #[id number], 170, cm, 02/04/22 11:19:00 EDT, Height, 44.1, [...] 06/01/23 15:30:00 EDT, 05/25/23 15:30:00 EDT, Tablet, [facility]/pharmacy #44... Start Date: 05/25/23 Stop Date: 06/01/23 [...] 0 Refills, Maintenance, 10/02/20 10:55:00 EST, Aerosol, [facility]/pharmacy #[id number], 170, cm, 10/02/20 10:06:00 EST, Height, 56.3, kg, 11/24/19 22:58:00 EST, Dry Weight Start Date: 10/02/20 Status: Ordered Vitamin D3 1000 intl units oral capsule 1 capsule = 25 mcg, By Mouth, Daily, # 30 capsule, 11 Refills, Maintenance, 12/03/22 9:00:00 EST, Capsule, [facility] #[id number], Partial fill upon patient request if the [...] Personnel Name: Milena ORTIZ, Morgan Hancock Position: [facility] Renal MD Member Role: Lifetime Consulting Physician Address: Address: [address] [place] [address] Name: Graciela Nunez MD Position: [facility] Physician - Primary Care Member Role: PCP Address: Address: [address] [place] [address] Name: Maryam Camara RN Position: [facility] RN Member Role: Primary Care Nurse Name: Josemanuel Hawkins RN Position: [facility] RN Member Role: Primary Care Nurse Name: Rylie Francois RN Position: [facility] RN Member Role: Primary Care [...] Care Nurse Name: Romeo Reid MD Position: [facility] Renal MD Member Role: Lifetime Consulting Physician Address: Address: [address] [place] [address] [address] [facility], [place] [address]- Name: Olga Valladares RN Position: S RN Member Role: Primary Care Nurse Name: Ruby Alexandre RN Position: S RN Member Role: Primary Care Nurse Address: Address: [address] [place] [address]- Name: Celso Lawson MD Position: [facility] Renal MD Member Role: Lifetime Consulting Physician Address: Address: [address] [place] [address] [facility] [place] [address]- Name: Alyssa Camacho RN Position: S RN Member Role: Primary Care Nurse Name: Keely Pascal RN Position: S RN Member Role: Primary Care Nurse Name: Chloe Fisher LPN Position: S RN Member Role: Primary Care Nurse Care Team Related Persons Name: LAZARUS OSBORNE Address: [place] [address] Name: KAVON NICOLE Address: [address] [place] [id number] Name: PT, STATES NONE
--- OUTSIDE RECORDS SUMMARY | 2023-08-21 08:40 | XMS_ITS | Continuity of Care Document ---
Author Name Unknown Organization 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 [address] [place], [place] [address] Allergies, Adverse Reactions, Alerts Substance [...] 23-valent vaccine 6 07/31/10 Recorded 1Result Comment: [id number] given w/out incident 2Location History: [place], [place] 3Admin Note: done @ dr jones office 4Location History: [facility] 5Location History: [facility] 6Location History: [facility] Medications aspirin 81 [...] Replace Required Details, Route to Pharmacy Electronically, [facility] [id number], 170, cm, ... Start Date: 03/26/23 Status: Ordered baclofen 10 mg oral tablet 10 mg, 1, tablet, By Mouth, 2 times a day, PRN, # 28 tablet, Refills 2, Tot. Refills 2, Maintenance, Pain , Moderate, 02/11/23 12:27:00 EDT, Route to Pharmacy Electronically, [facility]/pharmacy #[id number], Partial fill upon patient request if the prescription is... Start Date: 02/11/23 Stop Date: 03/25/23 Status: Ordered docusate sodium 100 mg oral capsule TAKE 1 CAPSULE BY MOUTH 2 TIMES A DAY NEEDED FOR CONSTIPATION. FILLED AT [facility] Start Date: 03/18/23 Status: Ordered folic acid 1 mg oral tablet 1 mg, 1, tablet, By Mouth, Daily, # 30 tablet, Refills 11, Tot. Refills 11, Maintenance, 12/03/22 9:01:00 EST, Route to Pharmacy Electronically, [facility]/pharmacy #[id number], 170, cm, 02/04/22 11:19:00 EDT, Height, 44.1, kg, 12/20/21 16:05:00 EST, Dry Weight Start Date: 12/03/22 Status: Ordered gabapentin 300 mg oral capsule 2, capsule, By Mouth, 3 times a day, # 180 capsule, Refills 5, Tot. Refills 5, Maintenance, 08/13/22 13:03:00 EDT, Route to Pharmacy Electronically, [facility]/pharmacy #[id number], 170, cm, 02/04/22 11:19:00 EDT, Height, 44.1, kg, 12/20/21 16:05:00 EST, Dry Weight Start Date: 08/13/22 Status: Ordered hydrOXYzine hydrochloride 10 mg oral tablet 3 tablet = 30 mg, By Mouth, 3 times a day, PRN NEEDED FOR ANXIETY, # 270 tablet, 3 Refills, Maintenance, 03/01/23 12:03:00 EDT, [facility]/pharmacy #[id number], 170, cm, 02/04/22 11:19:00 EDT, Height, 44.1, kg, 12/20/21 16:05:00 EST, Dry Weight Start Date: 03/01/23 Status: Ordered LORazepam 0.5 mg oral tablet 1 tablet = 0.5 mg, By Mouth, 2 times a day, PRN as needed for anxiety, for 14 days, fill when due, # 28 tablet, 1 Refills, Acute 05/07/23 12:41:00 EDT, 04/09/23 12:41:00 EDT, Tablet, [facility]/pharmacy #[id number], Partial fill upon patient request [...] 3 Refills, Maintenance, 12/16/22 9:12:00 EST, Capsule, [facility]/pharmacy #[id number], Partial fill upon patient request [...] 0 Refills, Maintenance, 03/22/23 13:16:00 EDT, Tablet, [facility], Partial fill upon patient [...] tablet, 3 Refills, Maintenance, 02/02/23 13:02:00 EDT, [facility]/pharmacy #[id number], 170, cm, 02/04/22 11:19:00 EDT, Height, 44.1, kg,... Start Date: 02/02/23 Status: Ordered urea 15 g oral powder for reconstitution = 15 Gm, By Mouth, 2 times a day, # 3 each, 0 Refills, Maintenance, 03/22/23 13:18:00 EDT[facility], Partial fill upon patient request if the prescription is for a schedule II opioid drug., 170, cm, 03/22/23 2:29:00 EDT, Height, 42, kg... Start Date: 03/22/23 Status: Ordered Ventolin HFA 108 mcg/inh inhalation [...] Personnel Name: Milena ORTIZ, Morgan Hancock Position: [facility] Renal MD Member Role: Lifetime Consulting Physician Address: Address: [address] [place] [address], [address] [address]- Name: Graciela Nunez MD Position: [facility] Physician - Primary Care Member Role: PCP Address: Address: [address] [place] [address]- Name: Maryam Camara RN Position: [facility] RN Member Role: Primary Care Nurse Name: Luisa Storey RN Position: [facility] RN Member Role: Primary Care Nurse Name: Lorenzo LUIS, Paty Position: S RN Member Role: Primary Care Nurse Name: Ninfa Soto RN Position: S RN Member Role: Primary Care Nurse Name: Romeo Reid MD Position: [facility] Renal MD Member Role: Lifetime Consulting Physician Address: Address: [address] [place] [address] [facility] [place] [address]- Name: Olga Valladares RN Position: S RN Member Role: Primary Care Nurse Name: Ruby Alexandre RN Position: S RN Member Role: Primary Care Nurse Address: Address: [address] [place] [address]- Name: Celso Lawson MD Position: [facility] Renal MD Member Role: Lifetime Consulting Physician Address: Address: [address] [place] [address] [facility] [address] Name: Chloe Fisher LPN Position: S RN Member Role: Primary Care Nurse Care Team Related Persons Name: LAZARUS OSBORNE Address: [place] [address] Name: KAVON NICOLE Address: home [address] [place] [address] Name: PT, STATES NONE
--- OUTSIDE RECORDS SUMMARY | 2023-08-21 08:40 | XMS_ITS | Continuity of Care Document ---
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 Name Role Phone Graciela Nunez MD Primary Care Physician [phone] Encounter [facility] Date(s): 04/14/22 - 05/14/22 [facility] [address] [place], [place] [address] Allergies, Adverse Reactions, Alerts Substance Reaction [...] 23-valent vaccine 6 07/31/10 Recorded 1Result Comment: [id number] given w/out incident 2Location History: [place], [place] 3Admin Note: done @ dr jones [...] 3 Refills, Maintenance, 04/09/22 9:54:00 EDT, Tablet, [facility] #[id number], Partial fill upon patient request if the prescription is for a schedule II opioid drug., 1 tablet By Mouth Daily, 170, cm, 02/04... Start Date: 04/09/22 Status: Ordered busPIRone 10 mg oral tablet 10 mg, 1, tablet, By Mouth, 3 times a day, # 90 tablet, Refills 1, Tot. Refills 1, Maintenance, 04/28/22 16:25:00 EDT, Route to Pharmacy Electronically, [facility] #[id number], new dosage, 170, cm, 02/04/22 11:19:00 EDT, Height, 44.1, kg, ... Start Date: 04/28/22 Status: Ordered calcium (as carbonate)-vitamin D 500 mg-400 intl units oral tablet 1 tablet, By Mouth, 2 times a day, calcium 500/vitamin d 400 iu twice daily, # 60 tablet, 6 Refills, Maintenance, 02/11/22 10:15:00 EDT, Tablet, [facility] #[id number], Partial fill upon patientrequest if the prescription is for a schedule II op... Start Date: 02/11/22 Status: Ordered Colace sodium 100 mg oral capsule 100 mg, 1, capsule, By Mouth, 2 times a day, PRN, # 60 capsule, Refills 5, Tot. Refills 5, Maintenance, for constipation, 02/04/22 11:08:00 EDT, Route to Pharmacy Electronically, [facility]#[id number], prefers gel formulation, 170, cm, 02/04/22... Start Date: 02/04/22 Status: Ordered diltiazem 180 mg/24 hours oral capsule, extended release 180 mg, 1, capsule, By Mouth, Daily, # 30 capsule, Refills 0, Tot. Refills 0, Maintenance, 11/06/2209:09:00 EST, Route to Pharmacy Electronically, [facility] #[id number], Partial fill upon patient request if the prescription is for a schedule II... Start Date: 11/06/21 Status: Ordered Flonase 50 mcg/inh nasal spray 1 sprays, Nares, Both, Daily in AM, # 16 Gm, 4 Refills, Maintenance, 12/03/21 12:34:00 EST, [place], [facility][id number], Partial fill upon patient request if the prescription is for a scheduleII opioid drug., 1 sprays Nares, Both Daily in AM,... Start Date: 12/03/21 Status: Ordered folic acid 1 mg oral tablet 1 mg, 1, tablet, By Mouth, Daily, # 30 tablet, Refills 11, Tot. Refills 11, Maintenance, 02/25/22 16:15:00 EDT, Route to Pharmacy Electronically, [facility] #[id number], 170, cm, 02/04/22 11:19:00 EDT, Height, 44.1, [...] 02/09/22 15:13:00 EDT, Route to Pharmacy Electronically, [facility] #[id number], 170, cm, 02/04/22 11:19:00 EDT, Height, 44.1, kg, 12/20/21 16:05:00 EST,... Start Date: 02/09/22 Status: Ordered Hair, Skin & Nails 5 mg oral capsule 1 capsule = 5 mg, By Mouth, Daily, # 90 capsule, 3 Refills, Maintenance, 02/19/22 12:29:00 EDT, [facility] #[id number], Partial fill upon patient request if the prescription is for a schedule IIopioid drug., 1 capsule By Mouth Daily, 170, cm, 04... Start Date: 02/19/22 Status: Ordered hydrOXYzine hydrochloride 10 mg oral tablet 1-2 tablet, By Mouth, 2 times a day, PRN as needed for anxiety, # 20 tablet, 0 Refills, Acute 05/19/22 17:36:00 EDT, 05/12/22 17:36:00 EDT, [facility] #[id number], Partial fill upon patient request if the prescription is for a schedule II opioid... Start Date: 05/12/22 Stop Date: 05/19/22 Status: Ordered lactulose 10 gm/15 ml oral syrup 15 mL = 10 Gm, By Mouth, Every 72 hours, PRN as needed for constipation, # 300 mL, 5 Refills, Maintenance, 03/19/22 14:45:00 EDT, Syrup, [facility] #[id number], Partial fill upon patient requestif the prescription is for a schedule II opioid ivonne... Start Date: 03/19/22 Status: Ordered LORazepam 0.5 mg oral tablet 1 tablet = 0.5 mg, By Mouth, 3 times a day, # 60 tablet, 3 Refills, Maintenance, 04/28/22 16:24:00 EDT, Tablet, [facility] #[id number], Partial fill upon patient request if the [...] 10/22/21 15:09:00 EST, Route to Pharmacy Electronically, [facility] #[id number] Tablet, Partial fill upon patient request... Start [...] Refills, Maintenance, 02/26/21 15:47:00 EDT, ER Tablet, [facility] #[id number], Partial fill upon patient requestif the prescription is for a schedule II opioid ivonne... Start Date: 02/26/21 Status: Ordered Ventolin HFA 108 mcg/inh inhalation aerosol with adapter 2 puffs, Inhalation, 4 times a day, PRN for wheezing, # 1 each, 0 Refills, Maintenance, 10/02/20 10:55:00 EST, Aerosol, [facility]/pharmacy #[id number], 170, cm, 10/02/20 10:06:00 EST, Height, 56.3, kg, 11/24/19 22:58:00 EST, Dry Weight Start Date: 10/02/20 Status: Ordered Vitamin D3 1000 intl units oral capsule 1 capsule = 25 mcg, By Mouth, Daily, # 30 capsule, 11 Refills, Maintenance, 12/02/21 10:55:00 EST, Capsule, [facility] #[id number], Partial fill upon patient request if the [...]
--- OUTSIDE RECORDS SUMMARY | 2023-08-21 08:40 | XMS_ITS | Continuity of Care Document ---
Author Name Unknown Organization [facility] Address [address] [place] [address]- Care Team Providers Care Pc Technician Name Role Phone Graciela Nunez MD Primary Care Physician [place] [facility] Date(s): 02/18/22 - 03/20/22 [facility] [address] [place], [place] [address] Allergies, Adverse Reactions, Alerts [...] 23-valent vaccine 6 07/31/10 Recorded 1Result Comment: [id number] given w/out incident 2Location History: [place], [place] 3Admin Note: done @ dr jones office 4Location History: [facility] 5Location History: [facility] [...] 02/04/22 11:02:00 EDT, Route to Pharmacy Electronically, [facility] #[id number], change in dosage, 170, cm, 02/04/22 10:40:00 EDT, Height, 44.1, kg, 02... Start Date: 02/04/22 Status: Ordered calcium (as carbonate)-vitamin D 500 mg-400 intl units oral tablet 1 tablet, By Mouth, 2 times a day, calcium 500/vitamin d 400 iu twice daily, # 60 tablet, 6 Refills, Maintenance, 02/11/22 10:15:00 EDT, Tablet, [facility] #[id number], Partial fill upon patientrequest if the prescription is for a schedule II op... Start Date: 02/11/22 Status: Ordered Colace sodium 100 mg oral capsule 100 mg, 1, capsule, By Mouth, 2 times a day, PRN, # 60 capsule, Refills 5, Tot. Refills 5, Maintenance, for constipation, 02/04/22 11:08:00 EDT, Route to Pharmacy Electronically, [facility]#[id number], prefers gel formulation, 170, cm, 02/04/22... Start Date: 02/04/22 Status: Ordered diltiazem 180 mg/24 hours oral capsule, extended release 180 mg, 1, capsule, By Mouth, Daily, # 30 capsule, Refills 0, Tot. Refills 0, Maintenance, 11/06/2209:09:00 EST, Route to Pharmacy Electronically, [facility] #[id number], Partial fill upon patient request if the prescription is for a schedule II... Start Date: 11/06/21 Status: Ordered Flonase 50 mcg/inh nasal spray 1 sprays, Nares, Both, Daily in AM, # 16 Gm, 4 Refills, Maintenance, 12/03/21 12:34:00 EST, [place], [facility] #[id number], Partial fill upon patient request if the prescription is for a scheduleII opioid drug., 1 sprays Nares, Both Daily in AM,... Start Date: 12/03/21 Status: Ordered folic acid 1 mg oral tablet 1 mg, 1, tablet, By Mouth, Daily, # 30 tablet, Refills 11, Tot. Refills 11, Maintenance, 02/25/22 16:15:00 EDT, Route to Pharmacy Electronically, [facility] #[id number], 170, cm, 02/04/22 11:19:00 EDT, Height, 44.1, [...] 02/09/22 15:13:00 EDT, Route to Pharmacy Electronically, [facility] #[id number], 170, cm, 02/04/22 11:19:00 EDT, Height, 44.1, kg, 12/20/21 16:05:00 EST,... Start Date: 02/09/22 Status: Ordered Hair, Skin & Nails 5 mg oral capsule 1 capsule = 5 mg, By Mouth, Daily, # 90 capsule, 3 Refills, Maintenance, 02/19/22 12:29:00 EDT, [facility] #[id number], Partial fill upon patient request if the prescription is for a schedule IIopioid drug., 1 capsule By Mouth Daily, 170, cm, 04... Start Date: 02/19/22 Status: Ordered lactulose 10 gm/15 ml oral syrup 15 mL = 10 Gm, By Mouth, Every 72 hours, PRN as needed for constipation, # 300 mL, 5 Refills, Maintenance, 03/19/22 14:45:00 EDT, Syrup, [facility] #[id number], Partial fill upon patient requestif the prescription is for a schedule II opioid ivonne... Start Date: 03/19/22 Status: Ordered LORazepam 0.5 mg oral tablet 1 tablet = 0.5 mg, By Mouth, 3 times a day, # 60 tablet, 3 Refills, Maintenance, 02/04/22 11:05:00 EDT, Tablet, [facility] #[id number], Partial fill upon patient request if the [...] 10/22/21 15:09:00 EST, Route to Pharmacy Electronically, [facility] #[id number] Tablet, Partial fill upon patient request... Start [...] Refills, Maintenance, 02/26/21 15:47:00 EDT, ER Tablet, [facility] #[id number], Partial fill upon patient requestif the prescription is for a schedule II opioid ivonne... Start Date: 02/26/21 Status: Ordered Ventolin HFA 108 mcg/inh inhalation aerosol with adapter 2 puffs, Inhalation, 4 times a day, PRN for wheezing, # 1 each, 0 Refills, Maintenance, 10/02/20 10:55:00 EST, Aerosol, [facility]/pharmacy #[id number], 170, cm, 10/02/20 10:06:00 EST, Height, 56.3, kg, 11/24/19 22:58:00 EST, Dry Weight Start Date: 10/02/20 Status: Ordered Vitamin D3 1000 intl units oral capsule 1 capsule = 25 mcg, By Mouth, Daily, # 30 capsule, 11 Refills, Maintenance, 12/02/21 10:55:00 EST, Capsule, [facility] #[id number], Partial fill upon patient request if the [...]
--- OUTSIDE RECORDS SUMMARY | 2023-08-21 08:40 | XMS_ITS | Continuity of Care Document ---
Author Name Unknown Organization 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 [address] [place], [place] [address] Allergies, Adverse Reactions, Alerts Substance [...] 23-valent vaccine 6 07/31/10 Recorded 1Result Comment: [id number] given w/out incident 2Location History: [place], [place] 3Admin Note: done @ dr jones office 4Location History: [facility] 5Location History: [facility] 6Location [...] 10/22/21 15:09:00 EST, Route to Pharmacy Electronically, [facility][id number], Partial fill upon patient request if the pr... Start Date: 10/22/21 Status: Ordered diltiazem 180 mg/24 hours oral capsule, extended release 180 mg, 1, capsule, By Mouth, Daily, # 30 capsule, Refills 0, Tot. Refills 0, Maintenance, 11/06/2209:09:00 EST, Route to Pharmacy Electronically, [facility] #[id number], Partial fill upon patient request if the prescription is for a schedule II... Start Date: 11/06/21 Status: Ordered Flonase 50 mcg/inh nasal spray 1 sprays, Nares, Both, Daily in AM, # 16 Gm, 4 Refills, Maintenance, 12/03/21 12:34:00 EST, [place], [facility] #[id number], Partial fill upon patient request if the prescription is for a scheduleII opioid drug., 1 sprays Nares, Both Daily in AM,... Start Date: 12/03/21 Status: Ordered folic acid 1 mg oral tablet 1 mg, 1, tablet, By Mouth, Daily, # 30 tablet, Refills 5, Tot. Refills 5, Maintenance, 01/31/21 16:35:00 EDT, Route to Pharmacy Electronically, [facility] #[id number], 170, cm, 10/02/20 10:06:00EST, Height, 56.3, kg, [...] 08/26/21 10:50:00 EDT, Route to Pharmacy Electronically, [facility] #[id number], 162.56, cm, 08/22/21 2:36:00 EDT, Height, 52.65, kg, 08/22/21 2:36:00 EDT... Start Date: 08/26/21 Status: Ordered lactulose 10 gm/15 ml oral syrup 15 mL = 10 Gm, By Mouth, Daily, PRN as needed for constipation, for 10 days, # 150 mL, 0 Refills, Acute 01/04/22 10:44:00 EST, 12/25/21 10:44:00 EST, Syrup, [facility] #[id number], Partial fill upon patient request if the [...] Acute 01/10/22 10:26:00EST, 12/17/21 10:18:00 EST, Suspension, [facility] #[id number], Partial fill upon patient request if the prescription is for a schedule II opioid... Start Date: 12/17/21 Stop Date: 01/10/22 Status: Ordered nicotine 21 mg/24 hr transdermal film, extended release 1 patch, Topically, Daily, for 6 week(s), # 42 patch, 0 Refills, Acute 02/06/22 16:15:00 EDT, 12/26/21 16:15:00 EST, Patch, [facility] #[id number], Partial fill upon patient request if the prescription is for a schedule II opioid drug., 1 patch T... Start Date: 12/26/21 Stop Date: 02/06/22 Status: Ordered nicotine 7 mg/24 hr transdermal film, extended release 1 patch, Topically, Daily, for 14 days, # 14 patch, 0 Refills, Acute 01/05/22 14:10:00 EST, 12/22/21 14:10:00 EST, Patch, [facility] #[id number], Partial fill upon patient request if the [...] 0 Refills, Maintenance, 12/22/21 14:25:00 EST, Tablet, [facility] #[id number], Partial fill upon patient requ... Start Date: [...] 10/22/21 15:09:00 EST, Route to Pharmacy Electronically, [facility] #[id number] Tablet, Partial fill upon patient request... Start [...] Refills, Maintenance, 02/26/21 15:47:00 EDT, ER Tablet, [facility] #[id number], Partial fill upon patient requestif the prescription is for a schedule II opioid ivonne... Start Date: 02/26/21 Status: Ordered Ventolin HFA 108 mcg/inh inhalation aerosol with adapter 2 puffs, Inhalation, 4 times a day, PRN for wheezing, # 1 each, 0 Refills, Maintenance, 10/02/20 10:55:00 EST, Aerosol, [facility]/pharmacy #[id number], 170, cm, 10/02/20 10:06:00 EST, Height, 56.3, kg, 11/24/19 22:58:00 EST, Dry Weight Start Date: 10/02/20 Status: Ordered Vitamin D3 1000 intl units oral capsule 1 capsule = 25 mcg, By Mouth, Daily, # 30 capsule, 11 Refills, Maintenance, 12/02/21 10:55:00 EST, Capsule, [facility] #[id number], Partial fill upon patient request if the [...]
--- OUTSIDE RECORDS SUMMARY | 2023-08-21 08:40 | XMS_ITS | Continuity of Care Document ---
Author Name Unknown Organization [facility] Address [address] [place] [address]- Care Team Providers Care Brand Lead Name Role Phone Graciela Nunez MD Primary Care Physician Encounter [facility] [place] Date(s): 11/24/21 - 12/24/21 [facility] [address] [place], [place] [email or web address] Allergies, Adverse Reactions, Alerts Substance Reaction Severity [...] 23-valent vaccine 6 07/31/10 Recorded 1Result Comment: [id number] given w/out incident 2Location History: [place], [place] 3Admin Note: done @ dr jones office 4Location History: [facility] 5Location History: [facility] 6Location History: [facility] Medications aspirin 81 mg [...] 10/22/21 15:09:00 EST, Route to Pharmacy Electronically, [facility]#[id number], Partial fill upon patient request if the pr... Start Date: 10/22/21 Status: Ordered diltiazem 180 mg/24 hours oral capsule, extended release 180 mg, 1, capsule, By Mouth, Daily, # 30 capsule, Refills 0, Tot. Refills 0, Maintenance, 11/06/2209:09:00 EST, Route to Pharmacy Electronically, [facility] #[id number], Partial fill upon patient request if the prescription is for a schedule II... Start Date: 11/06/21 Status: Ordered Flonase 50 mcg/inh nasal spray 1 sprays, Nares, Both, Daily in AM, # 16 Gm, 4 Refills, Maintenance, 12/03/21 12:34:00 EST, [place], [facility] #[id number], Partial fill upon patient request if the prescription is for a scheduleII opioid drug., 1 sprays Nares, Both Daily in AM,... Start Date: 12/03/21 Status: Ordered folic acid 1 mg oral tablet 1 mg, 1, tablet, By Mouth, Daily, # 30 tablet, Refills 5, Tot. Refills 5, Maintenance, 01/31/21 16:35:00 EDT, Route to Pharmacy Electronically, [facility] #[id number], 170, cm, 10/02/20 10:06:00EST, Height, 56.3, kg, [...] 08/26/21 10:50:00 EDT, Route to Pharmacy Electronically, [facility] #[id number], 162.56, cm, 08/22/21 2:36:00 EDT, Height, 52.65, [...] Acute 01/10/22 10:26:00EST, 12/17/21 10:18:00 EST, Suspension, [facility] #[id number], Partial fill upon patient request if the prescription is for a schedule II opioid... Start Date: 12/17/21 Stop Date: 01/10/22 Status: Ordered nicotine 7 mg/24 hr transdermal film, extended release 1 patch, Topically, Daily, for 14 days, # 14 patch, 0 Refills, Acute 01/05/22 14:10:00 EST, 12/22/21 14:10:00 EST, Patch, [facility] #[id number], Partial fill upon patient request if the [...] 0 Refills, Maintenance, 12/22/21 14:25:00 EST, Tablet, [facility] #[id number], Partial fill upon patient requ... Start Date: [...] 10/22/21 15:09:00 EST, Route to Pharmacy Electronically, [facility] #[id number] Tablet, Partial fill upon patient request... Start [...] Refills, Maintenance, 02/26/21 15:47:00 EDT, ER Tablet, [facility] #[id number], Partial fill upon patient requestif the prescription is for a schedule II opioid ivonne... Start Date: 02/26/21 Status: Ordered Ventolin HFA 108 mcg/inh inhalation aerosol with adapter 2 puffs, Inhalation, 4 times a day, PRN for wheezing, # 1 each, 0 Refills, Maintenance, 10/02/20 10:55:00 EST, Aerosol, [facility]/pharmacy #[id number], 170, cm, 10/02/20 10:06:00 EST, Height, 56.3, kg, 11/24/19 22:58:00 EST, Dry Weight Start Date: 10/02/20 Status: Ordered Vitamin D3 1000 intl units oral capsule 1 capsule = 25 mcg, By Mouth, Daily, # 30 capsule, 11 Refills, Maintenance, 12/02/21 10:55:00 EST, Capsule, [facility] #[id number], Partial fill upon patient request if the [...]
--- OUTSIDE RECORDS SUMMARY | 2023-08-21 08:40 | XMS_ITS | Continuity of Care Document ---
Author Name Unknown Organization [facility] Address [address] [place] [address]- Care Team Providers Care Special Events Assistant Name Role Phone Graciela Nunez MD Primary Care Physician [phone] [facility] [place]/21 [facility] [address] [place], [place] [address] Allergies, Adverse Reactions, Alerts Substance [...] 23-valent vaccine 6 07/31/10 Recorded 1Result Comment: [id number] given w/out incident 2Location History: [place], [place] 3Admin Note: done @ dr jones office 4Location History: [facility] 5Location History: [facility] [...] 10/22/21 15:09:00 EST, Route to Pharmacy Electronically, [facility]#[id number], Partial fill upon patient request if the pr... Start Date: 10/22/21 Status: Ordered diltiazem 180 mg/24 hours oral capsule, extended release 180 mg, 1, capsule, By Mouth, Daily, # 30 capsule, Refills 0, Tot. Refills 0, Maintenance, 11/06/2209:09:00 EST, Route to Pharmacy Electronically, [facility] #[id number], Partial fill upon patient request if the prescription is for a schedule II... Start Date: 11/06/21 Status: Ordered Flonase 50 mcg/inh nasal spray 1 sprays, Nares, Both, Daily in AM, # 16 Gm, 4 Refills, Maintenance, 12/03/21 12:34:00 EST, [place], [facility] #[id number], Partial fill upon patient request if the prescription is for a scheduleII opioid drug., 1 sprays Nares, Both Daily in AM,... Start Date: 12/03/21 Status: Ordered folic acid 1 mg oral tablet 1 mg, 1, tablet, By Mouth, Daily, # 30 tablet, Refills 5, Tot. Refills 5, Maintenance, 01/31/21 16:35:00 EDT, Route to Pharmacy Electronically, [facility] #[id number], 170, cm, 10/02/20 10:06:00EST, Height, 56.3, kg, [...] 08/26/21 10:50:00 EDT, Route to Pharmacy Electronically, [facility] #[id number], 162.56, cm, 08/22/21 2:36:00 EDT, Height, 52.65, kg, 08/22/21 2:36:00 EDT... Start Date: 08/26/21 Status: Ordered lactulose 10 gm/15 ml oral syrup 15 mL = 10 Gm, By Mouth, Daily, PRN as needed for constipation, for 10 days, # 150 mL, 0 Refills, Acute 01/04/22 10:44:00 EST, 12/25/21 10:44:00 EST, Syrup, [facility] #[id number], Partial fill upon patient request if the [...] Acute 01/10/22 10:26:00EST, 12/17/21 10:18:00 EST, Suspension, [facility] #[id number], Partial fill upon patient request if the prescription is for a schedule II opioid... Start Date: 12/17/21 Stop Date: 01/10/22 Status: Ordered nicotine 21 mg/24 hr transdermal film, extended release 1 patch, Topically, Daily, for 6 week(s), # 42 patch, 0 Refills, Acute 02/06/22 16:15:00 EDT, 12/26/21 16:15:00 EST, Patch, [facility] #[id number], Partial fill upon patient request if the prescription is for a schedule II opioid drug., 1 patch T... Start Date: 12/26/21 Stop Date: 02/06/22 Status: Ordered nicotine 7 mg/24 hr transdermal film, extended release 1 patch, Topically, Daily, for 14 days, # 14 patch, 0 Refills, Acute 01/05/22 14:10:00 EST, 12/22/21 14:10:00 EST, Patch, [facility] #[id number], Partial fill upon patient request if the [...] 0 Refills, Maintenance, 12/22/21 14:25:00 EST, Tablet, [facility] #[id number], Partial fill upon patient requ... Start Date: [...] 10/22/21 15:09:00 EST, Route to Pharmacy Electronically, [facility] #[id number] Tablet, Partial fill upon patient request... Start [...] Refills, Maintenance, 02/26/21 15:47:00 EDT, ER Tablet, [facility] #[id number], Partial fill upon patient requestif the prescription is for a schedule II opioid ivonne... Start Date: 02/26/21 Status: Ordered Ventolin HFA 108 mcg/inh inhalation aerosol with adapter 2 puffs, Inhalation, 4 times a day, PRN for wheezing, # 1 each, 0 Refills, Maintenance, 10/02/20 10:55:00 EST, Aerosol, [facility]/pharmacy #[id number], 170, cm, 10/02/20 10:06:00 EST, Height, 56.3, kg, 11/24/19 22:58:00 EST, Dry Weight Start Date: 10/02/20 Status: Ordered Vitamin D3 1000 intl units oral capsule 1 capsule = 25 mcg, By Mouth, Daily, # 30 capsule, 11 Refills, Maintenance, 12/02/21 10:55:00 EST, Capsule, [facility] #[id number], Partial fill upon patient request if the [...]
--- OUTSIDE RECORDS SUMMARY | 2023-08-21 08:40 | XMS_ITS | Continuity of Care Document ---
Author Name Unknown Organization [facility] Address [address] [place] [address]- Care Team Providers Care Configuration Specialist Name Role Phone Graciela Nunez MD Primary Care Physician [place] [facility] [place] 06[place]/23 [facility] [address] [place], [place] [address] Allergies, Adverse Reactions, Alerts Substance Reaction [...] 23-valent vaccine 6 07/31/10 Recorded 1Result Comment: [id number] given w/out incident 2Location History: [place], [place] 3Admin Note: done @ dr jones office 4Location History: [facility] 5Location History: [facility] 6Location History: [facility] Medications albuterol-ipratropium 3 mg-0.5 [...] 05/25/23 15:31:00 EDT, Route to Pharmacy Electronically, [facility]/pharmacy #[id number], Partial fill upon patient request if the [...] A DAY NEEDED FOR CONSTIPATION. FILLED AT [facility] Start Date: 03/18/23 Status: Ordered folic acid 1 mg oral tablet 1 mg, 1, tablet, By Mouth, Daily, # 30 tablet, Refills 11, Tot. Refills 11, Maintenance, 12/03/22 9:01:00 EST, Route to Pharmacy Electronically, [facility]/pharmacy #[id number], 170, cm, 02/04/22 11:19:00 EDT, Height, 44.1, kg, 12/20/21 16:05:00 EST, Dry Weight Start Date: 12/03/22 Status: Ordered gabapentin 300 mg oral capsule 2, capsule, By Mouth, 3 times a day, # 180 capsule, Refills 5, Tot. Refills 5, Maintenance, 08/13/22 13:03:00 EDT, Route to Pharmacy Electronically, [facility]/pharmacy #[id number], 170, cm, 02/04/22 11:19:00 EDT, Height, 44.1, kg, 12/20/21 16:05:00 EST, Dry Weight Start Date: 08/13/22 Status: Ordered hydrOXYzine hydrochloride 10 mg oral tablet 3 tablet = 30 mg, By Mouth, 3 times a day, PRN NEEDED FOR ANXIETY, # 270 tablet, 3 Refills, Maintenance, 03/01/23 12:03:00 EDT, [facility]/pharmacy #[id number], 170, cm, 02/04/22 11:19:00 EDT, [...] 3 Refills, Maintenance, 12/16/22 9:12:00 EST, Capsule, [facility]/pharmacy #[id number], Partial fill upon patient request [...] Team Personnel Name: Morgan Abbott MD Position: [facility] Renal MD Member Role: Lifetime Consulting Physician Address: Address: [address] [place] [address], [address] Name: Graciela Nunez MD Position: [facility] Physician - Primary Care Member Role: PCP Address: Address: [address] [place] [address] Name: Maryam Camara RN Position: [facility] RN Member Role: Primary Care Nurse [...] Care Nurse Name: Romeo Reid MD Position: [facility] Renal MD Member Role: Lifetime Consulting Physician Address: Address: [address] [place] [address] [address] [facility] [address] Name: Olga Valladares RN Position: S RN Member Role: Primary Care Nurse Name: Ruby Alexandre RN Position: S RN Member Role: Primary Care Nurse Address: Address: [address] [place] [address]- Name: Celso Lawson MD Position: [facility] Renal MD Member Role: Lifetime Consulting Physician Address: Address: [address] [place] [address] [facility] [place] [address]- Name: Alyssa Camacho RN Position: S RN Member Role: Primary Care Nurse Name: Keely Pascal RN Position: S RN Member Role: Primary Care Nurse Name: Chloe Fisher LPN Position: S RN Member Role: Primary Care Nurse Care Team Related Persons Name: LAZARUS OSBORNE Address: [place] [address] Name: KAVON NICOLE Address: home [address] [place] [address] Name: PT, [facility] NONE
--- OUTSIDE RECORDS SUMMARY | 2023-08-21 08:40 | XMS_ITS | Continuity of Care Document ---
Author Name Unknown Organization [facility] Address [address] [place] [address]- Care Team Providers Care Casual Shoe Inspector Name Role Phone Graciela Nunez MD Primary Care Physician [place] [facility] [place] 07/02/23 [facility] [address] [place], [place] [address] Attending Physician: Graciela Nunez MD Allergies, Adverse [...] 23-valent vaccine 6 07/31/10 Recorded 1Result Comment: [id number] given w/out incident 2Location History: [place], [place] 3Admin Note: done @ dr jones office 4Location History: [facility] 5Location History: [facility] 6Location History: [facility] Medications albuterol-ipratropium 3 mg-0.5 [...] 05/25/23 15:31:00 EDT, Route to Pharmacy Electronically, [facility]/pharmacy #[id number], Partial fill upon patient request if the [...] A DAY NEED[facility]ST[facility] Start Date: 03/18/23 Status: Ordered folic acid 1 mg oral tablet 1 mg, 1, tablet, By Mouth, Daily, # 30 tablet, Refills 11, Tot. Refills 11, Maintenance, 12/03/22 9:01:00 EST, Route to Pharmacy Electronically, [facility]/pharmacy #[id number], 170, cm, 02/04/22 11:19:00 EDT, Height, 44.1, kg, 12/20/21 16:05:00 EST, Dry Weight Start Date: 12/03/22 Status: Ordered gabapentin 300 mg oral capsule 2, capsule, By Mouth, 3 times a day, # 180 capsule, Refills 5, Tot. Refills 5, Maintenance, 08/13/22 13:03:00 EDT, Route to Pharmacy Electronically, [facility]/pharmacy #[id number], 170, cm, 02/04/22 11:19:00 [...] MANAGEMENT, # 14 tablet, 0 Refills, Acute 07/09/23 19:20:00 EDT, 07/02/23 19:20:00 EDT, Tablet, [facility]/pharmacy #44... Start Date: 07/02/23 Stop Date: 07/09/23 Status: Ordered Metoprolol Succinate ER 25 mg [...] 3 Refills, Maintenance, 12/16/22 9:12:00 EST, Capsule, [facility]/pharmacy #[id number], Partial fill upon patient [...] 30 capsule, 0 Refills, Maintenance, 06/24/23 19:50:00 EDT,[facility]/pharmacy #[id number], Partial fill upon patient request if the [...] Team Personnel Name: Morgan Abbott MD Position: [facility] Renal MD Member Role: Lifetime Consulting Physician Address: Address: [address] [place] [address], [address] [place] [address]- Name: Graciela Nunez MD Position: [facility] Physician - Primary Care Member Role: PCP Address: Address: [address] [place] [address]- Name: Maryam Camara RN Position: [facility] RN Member Role: Primary Care Nurse Name: Josemanuel Hawkins RN Position: S RN Member Role: Primary Care Nurse Name: Mckay Esquivel MD Position: [facility] Renal MD Member Role: Lifetime Consulting Physician Address: Address: [address] [place] [address], [address] [place] [address]- Name: Rylie Francois RN Position: S RN [...] Care Nurse Name: Romeo Reid MD Position: [facility] Renal MD Member Role: Lifetime Consulting Physician Address: Address: [address] [place] [address] [address] [facility] [place] [place] [address]- Name: Olga Valladares RN Position: S RN Member Role: Primary Care Nurse Name: Ruby Alexandre RN Position: S RN Member Role: Primary Care Nurse Address: Address: [address] [place] [address]- Name: Celso Lawson MD Position: [facility] Renal MD Member Role: Lifetime Consulting Physician Address: Address: [address] [place] [address] [facility] [place] [address]- Name: Alysas Camacho RN Position: S RN Member Role: Primary Care Nurse Name: Keely Pascal RN Position: S RN Member Role: Primary Care Nurse Name: Chloe Fisher LPN Position: S RN Member Role: Primary Care Nurse Care Team Related Persons Name: LAZARUS OSBORNE Address: [place] [address] Name: KAVON NICOLE Address: home [address] [place] [address] Name: PT, STATES NONE
--- OUTSIDE RECORDS SUMMARY | 2023-08-21 08:40 | XMS_ITS | Continuity of Care Document ---
Author Name Unknown Organization [facility] Address [address] [place] [address]- Care Team Providers Care Strike Warfare/Missile Systems Officer Name Role Phone Graciela Nunez MD Primary Care Physician [phone] Encounter [facility] [place] Date(s): 12/03/22 - 01/02/23 [facility] [address] [place], [place] [address] Attending Physician: Dennys Fabian Admitting Physician: AdmtrDennys Referring Physician: Admtr, Ar8 Allergies, Adverse Reactions, [...] 23-valent vaccine 6 07/31/10 Recorded 1Result Comment: [id number] given w/out incident 2Location History: [place], [place] 3Admin Note: done @ dr jones office 4Location History: [facility] 5Location History: [facility] 6Location History: [facility] Medications aspirin 81 [...] 12/28/22 16:00:00 EST, Route to Pharmacy Electronically, [facility]/pharmacy #[id number], Partial fillupon patient request if the prescription is for a s... Start Date: 12/28/22 Stop Date: 02/08/23 Status: Ordered busPIRone 10 mg oral tablet 1, tablet, By Mouth, 3 times a day, # 270 tablet, Refills 1, Maintenance, 11/12/22 17:44:00 EST, Route to Pharmacy Electronically, [facility] [id number], 170, cm, 02/04/22 11:19:00 EDT, Height, 44.1, kg, 12/20/21 16:05:00 EST, Dry Weight Start Date: 11/12/22 Status: Ordered calcium-vitamin D 600 mg-400 intl units oral tablet 1 tablet, By Mouth, 2 times a day, # 60 tablet, 6 Refills, Maintenance, 05/15/22 16:21:00 EDT, Tablet, [id number], Partial fill upon patient request if the prescription is for a schedule II opioid drug., 1 tablet By Mouth 2 times a da... Start Date: 05/15/22 Status: Ordered Colace sodium 100 mg oral capsule 100 mg, 1, capsule, By Mouth, 2 times a day, PRN, # 180 capsule, Refills 1, Tot. Refills 1, Maintenance, for constipation, 06/23/22 10:20:00 EDT, Route to Pharmacy Electronically, [facility]/pharmacy #[id number],prefers gel formulation, 170, cm, 02/04/22 11:19:00... Start Date: 06/23/22 Status: Ordered Flonase 50 mcg/inh nasal spray 1 sprays, Nares, Both, Daily in AM, # 16 Gm, 4 Refills, Maintenance, 12/03/21 12:34:00 EST, [place], [facility] #[id number], Partial fill upon patient request if the prescription is for a scheduleII opioid drug., 1 sprays Nares, Both Daily in AM,... Start Date: 12/03/21 Status: Ordered folic acid 1 mg oral tablet 1 mg, 1, tablet, By Mouth, Daily, # 30 tablet, Refills 11, Tot. Refills 11, Maintenance, 12/03/22 9:01:00 EST, [id number] 170, cm, 02/04/22 11:19:00 EDT, Height, 44.1, kg, 12/20/21 16:05:00 EST, Dry Weight Start Date: 12/03/22 Status: Ordered gabapentin 300 mg oral capsule 2, capsule, By Mouth, 3 times a day, # 180 capsule, Refills 5, Tot. Refills 5, Maintenance, 08/13/22 13:03:00 EDT, [id number], 170, cm, 02/04/22 11:19:00 EDT, Height, 44.1, kg, 12/20/21 16:05:00 EST, Dry Weight Start Date: 08/13/22 Status: Ordered Hair, Skin & Nails 5 mg oral capsule 1 capsule = 5 mg, By Mouth, Daily, # 90 capsule, 3 Refills, Maintenance, 02/19/22 12:29:00 EDT, [facility] #[id number], Partial fill upon patient request if the prescription is for a schedule IIopioid drug., 1 capsule By Mouth Daily, 170, cm, 04... Start Date: 02/19/22 Status: Ordered hydrOXYzine hydrochloride 10 mg oral tablet 1 tablet = 10 mg, By Mouth, 3 times a day, PRN NEEDED FOR ANXIETY, # 90 tablet, 3 Refills, Maintenance, 12/27/22 11:47:00 EST, [facility]/pharmacy #[id number], 170, cm, 02/04/22 11:19:00 EDT, Height, 44.1, kg,12/20/21 16:05:00 EST, Dry Weight Start Date: 12/27/22 Status: Ordered lactulose 10 gm/15 ml oral syrup 15 mL = 10 Gm, By Mouth, Every 72 hours, PRN as needed for constipation, # 300 mL, 5 Refills, Maintenance, 03/19/22 14:45:00 EDT, Syrup, [facility] #[id number], Partial fill upon patient requestif the prescription is for a schedule II opioid ivonne... Start Date: 03/19/22 Status: Ordered LORazepam 0.5 mg oral tablet 1 tablet = 0.5 mg, By Mouth, 3 times a day, # 60 tablet, 1 Refills, Maintenance, 11/27/22 14:50:00 EST, Tablet, [facility]/pharmacy #[id number], Partial fill upon [...] 12/03/22 8:52:00 EST, Route to Pharmacy Electronically, [facility]/pharmacy #[id number], Partial fill upon patient request if [...] 21 tablet, 3 Refills, 12/03/22 8:53:00 EST, [facility]/pharmacy #[id number], 170, cm, 02/04/22 11:19:00 EDT, Height, 44.1, kg, 12/20/21 16:0... Start Date: 12/03/22 Status: Ordered Tylenol 8 HR Arthritis Pain 650 mg oral tablet, extended release 1 tablet = 650 mg, By Mouth, Every 8 hours, PRN Pain , Moderate, # 100 tablet, 1 Refills, Maintenance, 02/26/21 15:47:00 EDT, ER Tablet, [facility] #[id number], Partial fill upon patient requestif the prescription [...] 11 Refills, Maintenance, 12/03/22 9:00:00 EST, Capsule, [facility]/pharmacy #[id number], Partial fill upon [...] smoking 1 /2 pack per day. Sex Note * Event Display: CT Scan Chest, Non- BH Authored Date: * Event Display: CT Scan Chest, Non- BH Authored Date: * Event Display: CT Scan Chest, Non- BH Authored Date: * Event Display: Laboratory Result Scanned Authored Date: * Event Display: Non BH Cardiovascular Results Authored Date: * Event Display: Cardiovascular Result Scanned Authored Date: * Event Display: Non BH Cardiovascular Results Authored Date: * Event Display: Bone Density, Non-BH Authored Date: * Event Display: Bone Density, Non-BH Authored Date: * Event Display: Bone Density, Non-BH Authored Date: * Event Display: Non BH Lab Results Authored Date: Cardiology Consult note * Event Display: Consult Note Cardiology Authored Date: * Event Display: Consult Note Cardiology Authored Date: * Event Display: Consult Note Cardiology Authored Date: Patient Care team information Care Team Personnel Name: Angie Farmer RN Position: S RN Member Role: Primary Care Nurse Name: Milena ORTIZ, Morgan Hancock Position: [facility] Renal MD Member Role: Lifetime Consulting Physician Address: Address: [address] [place] [address], [facility] [address] [place] [address]- [place] Name: Graciela Nunez MD Position: [facility] Primary Care Physician Member Role: PCP Address: Address: [address] [place] [address]- [place] Name: Luisa Storey RN Position: S RN Member Role: Primary Care Nurse Care Team Related Persons Name: LAZARUS OSBORNE Address: [place] [address] Name: KAVON NICOLE Address: home [address] [place] [address] Name: PT, STATES NONE
--- OUTSIDE RECORDS SUMMARY | 2023-08-21 08:40 | XMS_ITS | Continuity of Care Document ---
Author Name Unknown Organization [facility] Address [address] [place] [address]- Care Team Providers Care Customer Service Receptionist Name Role Phone Graciela Nunez MD Primary Care Physician [phone] [place] [facility] [place](s): 04/27/22 - 05/27/22 [facility] [address] [place], [place] [address] Allergies, Adverse Reactions, Alerts Substance Reaction [...] 23-valent vaccine 6 07/31/10 Recorded 1Result Comment: [id number] given w/out incident 2Location History: [place], [place] 3Admin Note: done @ dr jones office 4Location History: [facility] 5Location History: [facility] [...] 3 Refills, Maintenance, 04/09/22 9:54:00 EDT, Tablet, [facility] #[id number], Partial fill upon patient request if the prescription is for a schedule II opioid drug., 1 tablet By Mouth Daily, 170, cm, 02/04... Start Date: 04/09/22 Status: Ordered busPIRone 10 mg oral tablet 10 mg, 1, tablet, By Mouth, 3 times a day, # 90 tablet, Refills 1, Tot. Refills 1, Maintenance, 04/28/22 16:25:00 EDT, Route to Pharmacy Electronically, [facility] #[id number], new dosage, 170, cm, 02/04/22 11:19:00 EDT, Height, 44.1, kg, ... Start Date: 04/28/22 Status: Ordered calcium (as carbonate)-vitamin D 500 mg-400 intl units oral tablet 1 tablet, By Mouth, 2 times a day, calcium 500/vitamin d 400 iu twice daily, # 60 tablet, 6 Refills, Maintenance, 02/11/22 10:15:00 EDT, Tablet, [facility] #[id number], Partial fill upon patientrequest if the prescription is for a schedule II op... Start Date: 02/11/22 Status: Ordered calcium-vitamin D 600 mg-400 intl units oral tablet 1 tablet, By Mouth, 2 times a day, # 60 tablet, 6 Refills, Maintenance, 05/15/22 16:21:00 EDT, Tablet, [facility] #[id number], Partial fill upon patient request if the prescription is for a schedule II opioid drug., 1 tablet By Mouth 2 times a da... Start Date: 05/15/22 Status: Ordered Colace sodium 100 mg oral capsule 100 mg, 1, capsule, By Mouth, 2 times a day, PRN, # 60 capsule, Refills 5, Tot. Refills 5, Maintenance, for constipation, 02/04/22 11:08:00 EDT, Route to Pharmacy Electronically, [facility]#[id number], prefers gel formulation, 170, cm, 02/04/22... Start Date: 02/04/22 Status: Ordered diltiazem 180 mg/24 hours oral capsule, extended release 180 mg, 1, capsule, By Mouth, Daily, # 30 capsule, Refills 0, Tot. Refills 0, Maintenance, 11/06/2209:09:00 EST, Route to Pharmacy Electronically, [facility] #[id number], Partial fill upon patient request if the prescription is for a schedule II... Start Date: 11/06/21 Status: Ordered Flonase 50 mcg/inh nasal spray 1 sprays, Nares, Both, Daily in AM, # 16 Gm, 4 Refills, Maintenance, 12/03/21 12:34:00 EST, [place], [facility] #[id number], Partial fill upon patient request if the prescription is for a scheduleII opioid drug., 1 sprays Nares, Both Daily in AM,... Start Date: 12/03/21 Status: Ordered folic acid 1 mg oral tablet 1 mg, 1, tablet, By Mouth, Daily, # 30 tablet, Refills 11, Tot. Refills 11, Maintenance, 02/25/22 16:15:00 EDT, Route to Pharmacy Electronically, [facility] #[id number], 170, cm, 02/04/22 11:19:00 EDT, Height, 44.1, [...] 02/09/22 15:13:00 EDT, Route to Pharmacy Electronically, [facility] #[id number], 170, cm, 02/04/22 11:19:00 EDT, Height, 44.1, kg, 12/20/21 16:05:00 EST,... Start Date: 02/09/22 Status: Ordered Hair, Skin & Nails 5 mg oral capsule 1 capsule = 5 mg, By Mouth, Daily, # 90 capsule, 3 Refills, Maintenance, 02/19/22 12:29:00 EDT, [facility] #[id number], Partial fill upon patient request if the prescription is for a schedule IIopioid drug., 1 capsule By Mouth Daily, 170, cm, 04... Start Date: 02/19/22 Status: Ordered hydrOXYzine hydrochloride 10 mg oral tablet 1-2 TABLETS, By Mouth, 2 times a day, PRN NEEDED FOR ANXIETY, # 60 tablet, 3 Refills, [facility] [id number], 170, cm, 02/04/22 11:19:00 EDT, Height, 44.1, kg, 12/20/21 16:05:00 EST, Dry Weight Start Date: 05/27/22 Status: Ordered lactulose 10 gm/15 ml oral syrup 15 mL = 10 Gm, By Mouth, Every 72 hours, PRN as needed for constipation, # 300 mL, 5 Refills, Maintenance, 03/19/22 14:45:00 EDT, Syrup, [facility] #[id number], Partial fill upon patient requestif the prescription is for a schedule II opioid ivonne... Start Date: 03/19/22 Status: Ordered LORazepam 0.5 mg oral tablet 1 tablet = 0.5 mg, By Mouth, 3 times a day, # 60 tablet, 3 Refills, Maintenance, 04/28/22 16:24:00 EDT, Tablet, [facility] #[id number], Partial fill upon patient request if the [...] 10/22/21 15:09:00 EST, Route to Pharmacy Electronically, [facility] #[id number] Tablet, Partial fill upon patient request... Start [...] Refills, Maintenance, 02/26/21 15:47:00 EDT, ER Tablet, [facility] #[id number], Partial fill upon patient requestif the prescription [...] 11 Refills, Maintenance, 12/02/21 10:55:00 EST, Capsule, [facility] #[id number], Partial fill upon patient request if the [...]
--- OUTSIDE RECORDS SUMMARY | 2023-08-21 08:40 | XMS_ITS | Continuity of Care Document ---
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 Name Role Phone Graciela Nunez MD Primary Care Physician Encounter [facility] Date(s): 08/21/21 - 09/20/21 [facility] [address] [place], [place] [address] Allergies, Adverse Reactions, Alerts Substance Reaction [...] 23-valent vaccine 5 07/31/10 Recorded 1Location History: [place], [place] 2Admin Note: done @ dr jones office 3Location History: [facility] 4Location History: [facility] 5Location History: [facility] Medications alendronate 70 mg [...] 0 Refills, Maintenance, 09/01/21 15:19:00 EDT, Capsule, [facility] #[id number], Partial fill upon patient request if the prescription i... Start Date: 09/01/21 Stop Date: 09/15/21 Status: Ordered duloxetine 30 mg oral enteric coated capsule 1 capsule = 30 mg, By Mouth, Daily, do not crush or chew, # 30 capsule, 3 Refills, Maintenance, 09/11/21 12:04:00 EST, CR Capsule, [facility] #[id number], Partial fill upon patient request if the prescription is for a schedule II opioid drug., 17... Start Date: 09/11/21 Status: Ordered folic acid 1 mg oral tablet 1 mg, 1, tablet, By Mouth, Daily, # 30 tablet, Refills 5, Tot. Refills 5, Maintenance, 01/31/21 16:35:00 EDT, Route to Pharmacy Electronically, [facility] #[id number], 170, cm, 10/02/20 10:06:00EST, Height, 56.3, kg, 11/24/19 22:58:00 EST, Dry W... Start Date: 01/31/21 Status: Ordered furosemide 20 mg oral tablet 1, tablet, By Mouth, Daily, PRN, # 90 tablet, Refills 0, Tot. Refills 0, Maintenance, NEEDED FORLEG SWELLING, 04/19/20 15:50:00 EDT, Route to Pharmacy Electronically, [facility] #[id number],170, cm, 12/13/19 13:51:00 EST, Height, 56.3, kg, 0... Start Date: 04/19/20 Status: Ordered gabapentin 300 mg oral capsule 2, capsule, By Mouth, 3 times a day, # 180 capsule, Refills 1, Tot. Refills 1, Maintenance, 08/26/21 10:50:00 EDT, Route to Pharmacy Electronically, [facility] #[id number], 162.56, cm, 08/22/21 2:36:00 EDT, Height, 52.65, [...] tablet, 0 Refills, Maintenance, 09/10/21 16:04:00 EST, [facility] #[id number], 170, cm, 08/30/21 17:40:00 EDT, Height,51.5, kg, 08/30/21 17:40:00 EDT, Dry Weight Start Date: 09/10/21 Status: Ordered Metoprolol Succinate ER 25 mg oral tablet, extended release 1 tablet = 25 mg, By Mouth, Daily, # 90 tablet, 1 Refills, Maintenance, 01/29/20 10:50:00 EDT, XL Tablet, [facility] #[id number], 170, cm, 12/13/19 13:51:00 EST, Height, 56.3, kg, 11/24/19 22:58:00 EST, Dry Weight Start Date: 01/29/20 Status: Ordered predniSONE 10 mg oral tablet See Instructions, 4 tabs x 3 days, 3 tabs x 3 days, 2 tabs x 3 days, 1 tab x 3 days, # 30 tablet, 0Refills, Acute 10/11/21 12:03:00 EST, 09/11/21 12:03:00 EST, Tablet, [facility] #[id number], Partial fill upon patient request if the [...] 3 Refills, Maintenance, 03/13/21 13:26:00 EDT, Tablet, [facility] #[id number], 170, cm, 10/02/20 10:06:00 EST, Height, 56.3, [...] Refills, Maintenance, 02/26/21 15:47:00 EDT, ER Tablet, [facility] #[id number], Partial fill upon patient requestif the prescription is for a schedule II opioid ivonne... Start Date: 02/26/21 Status: Ordered Ventolin HFA 108 mcg/inh inhalation aerosol with adapter 2 puffs, Inhalation, 4 times a day, PRN for wheezing, # 1 each, 0 Refills, Maintenance, 10/02/20 10:55:00 EST, Aerosol, [facility]/pharmacy #[id number], 170, cm, 10/02/20 10:06:00 EST, Height, 56.3, kg, 11/24/19 22:58:00 EST, Dry Weight Start Date: 10/02/20 Status: Ordered Vitamin B1 100 mg oral tablet 1, tablet, By Mouth, Daily, # 30 tablet, Refills 7, Tot. Refills 0, Acute, 01/06/21 14:35:00 EST, Route to Pharmacy Electronically, [facility] #[id number], 170, cm, 10/02/20 10:06:00 EST, Height, 56.3, kg, 11/24/19 22:58:00 EST, Dry Weight Start Date: 01/06/21 Status: Ordered Zofran 4 mg oral tablet 1 tablet = 4 mg, By Mouth, 3 times a day, PRN nausea, # 30 tablet, 0 Refills, Maintenance, 209:17:00 EDT, Tablet, [facility] #[id number], 170, cm, 12/13/19 13:51:00 EST, Height, 56.3, [...]
--- NOTE | 2023-08-21 08:41 | PC.RT ---
pt came in intubated by EMS. pt assessed and extubated per MD order.
--- OUTSIDE RECORDS SUMMARY | 2023-08-21 08:41 | XMS_ITS | Continuity of Care Document ---
Author Name Unknown Organization [facility] Address [address] [place] [address]- Care Team Providers Care Supervisor Rice Milling Name Role Phone Graciela Nunez MD Primary Care Physician En[facility] [id number] Date(s): 12/03/22 - 12/10/22 [facility] [address] [place], [place] [address] Encounter Diagnosis AF (atrial fibrillation)(Discharge Diagnosis) - 12/03/22 Chronic respiratory failure with hypoxia(Discharge Diagnosis) - 12/03/22 End stage COPD(Discharge Diagnosis) - 12/03/22 Osteoporosis(Discharge Diagnosis) - 12/03/22 Compression fracture of lumbar vertebra(Discharge Diagnosis) - 12/03/22 Constipation(Discharge Diagnosis) - 12/03/22 Anxiety(Discharge Diagnosis) - 12/03/22 Attending Physician: Graciela Nunez MD Allergies, Adverse [...] 09/08/12 Doug rded influenza virus vaccine, inactivated 10/29/11 Re corded SARS-CoV-2 (COVID-19) mRNA BNT-162b2 vac 08/26/21 Recorded SARS-CoV-2 (COVID-19) mRNA BNT-162b2 vac 01/28/21 Recorded SARS-CoV-2 (COVID-19) mRNA BNT-162b2 vac 01/07/21 Recorded tetanus/diphtheria/pertussis, acel(Tdap) 5 04/19/12 Recorded pneumococcal 23-valent vaccine 6 07/31/10 Recorded 1Result Comment: [id number] given w/out incident 2Location History: [place], [place] 3Admin Note: done @ dr jones office 4Location History: [facility] 5Location History: [facility] 6Location History: [facility] Medications aspirin 81 mg oral delayed [...] 3 Refills, Maintenance, 04/09/22 9:54:00 EDT, Tablet, [facility] #[id number], Partial fill upon patient request if the prescription is for a schedule II opioid drug., 1 tablet By Mouth Daily, 170, cm, 02/04... Start Date: 04/09/22 Status: Ordered baclofen 10 mg oral tablet 10 mg, 1, tablet, By Mouth, Daily, PRN, # 14 tablet, Refills 2, Tot. Refills 2, Maintenance, Pain ,Moderate, 10/20/22 15:10:00 EST, Route to Pharmacy Electronically, [facility]/pharmacy #[id number], Partial fillupon patient request if the prescription is for a s... Start Date: 10/20/22 Stop Date: 12/01/22 Status: Ordered busPIRone 10 mg oral tablet 1, tablet, By Mouth, 3 times a day, # 270 tablet, Refills 1, Maintenance, 11/12/22 17:44:00 EST, Route to Pharmacy Electronically, [facility] [id number], 170, cm, 02/04/22 11:19:00 EDT, Height, 44.1, kg, 12/20/21 16:05:00 EST, Dry Weight Start Date: 11/12/22 Status: Ordered calcium-vitamin D 600 mg-400 intl units oral tablet 1 tablet, By Mouth, 2 times a day, # 60 tablet, 6 Refills, Maintenance, 05/15/22 16:21:00 EDT, Tablet, [facility] #[id number], Partial fill upon patient request if the prescription is for a schedule II opioid drug., 1 tablet By Mouth 2 times a da... Start Date: 05/15/22 Status: Ordered Colace sodium 100 mg oral capsule 100 mg, 1, capsule, By Mouth, 2 times a day, PRN, # 180 capsule, Refills 1, Tot. Refills 1, Maintenance, for constipation, 06/23/22 10:20:00 EDT, Route to Pharmacy Electronically, [facility]/pharmacy #[id number],prefers gel formulation, 170, cm, 02/04/22 11:19:00... Start Date: 06/23/22 Status: Ordered Flonase 50 mcg/inh nasal spray 1 sprays, Nares, Both, Daily in AM, # 16 Gm, 4 Refills, Maintenance, 12/03/21 12:34:00 EST, [place], [facility] #[id number], Partial fill upon patient request if the prescription is for a scheduleII opioid drug., 1 sprays Nares, Both Daily in AM,... Start Date: 12/03/21 Status: Ordered folic acid 1 mg oral tablet 1 mg, 1, tablet, By Mouth, Daily, # 30 tablet, Refills 11, Tot. Refills 11, Maintenance, 12/03/22 9:01:00 EST, Route to Pharmacy Electronically, [facility]/pharmacy [...] capsule, 3 Refills, Maintenance, 02/19/22 12:29:00 EDT, [facility] #[id number], Partial fill upon patient request if the prescription is for a schedule IIopioid drug., 1 capsule By Mouth Daily, 170, cm, 04... Start Date: 02/19/22 Status: Ordered hydrOXYzine hydrochloride 10 mg oral tablet 2 tablet = 20 mg, By Mouth, 3 times a day, PRN NEEDED FOR ANXIETY, # 180 tablet, 1 Refills, Maintenance, 12/03/22 8:55:00 EST, [facility]/pharmacy #[id number], 170, cm, 02/04/22 11:19:00 EDT, Height, 44.1, kg,12/20/21 16:05:00 EST, Dry Weight Start Date: 12/03/22 Status: Ordered lactulose 10 gm/15 ml oral syrup 15 mL = 10 Gm, By Mouth, Every 72 hours, PRN as needed for constipation, # 300 mL, 5 Refills, Maintenance, 03/19/22 14:45:00 EDT, Syrup, [facility] #[id number], Partial fill upon patient requestif the prescription is for a schedule II opioid ivonne... Start Date: 03/19/22 Status: Ordered LORazepam 0.5 mg oral tablet 1 tablet = 0.5 mg, By Mouth, 3 times a day, # 60 tablet, 1 Refills, Maintenance, 11/27/22 14:50:00 EST, Tablet, [facility]/pharmacy #[id number], Partial fill upon patient request if the prescription is for a schedule II opioid drug., 170, cm, 02/04/22 11:19:00 EDT... Start Date: 11/27/22 Status: Ordered Metoprolol Succinate ER 25 mg oral tablet, extended release TAKE 1 TABLET BY MOUTH ONCE DAILY Start Date: 12/03/22 Status: Ordered nitroglycerin 0.3 mg sublingual tablet [...] 12/03/22 8:52:00 EST, Route to Pharmacy Electronically, [facility]/pharmacy #[id number], Partial fill upon patient request if [...] 21 tablet, 3 Refills, 12/03/22 8:53:00 EST, [facility]/pharmacy #[id number], 170, cm, 02/04/22 11:19:00 EDT, Height, 44.1, kg, 12/20/21 16:0... Start Date: 12/03/22 Status: Ordered Tylenol 8 HR Arthritis Pain 650 mg oral tablet, extended release 1 tablet = 650 mg, By Mouth, Every 8 hours, PRN Pain , Moderate, # 100 tablet, 1 Refills, Maintenance, 02/26/21 15:47:00 EDT, ER Tablet, [facility] #[id number], Partial fill upon patient requestif the prescription is for a schedule II opioid ivonne... Start Date: 02/26/21 Status: Ordered Ventolin HFA 108 mcg/inh inhalation aerosol with adapter 2 puffs, Inhalation, 4 times a day, PRN for wheezing, # 1 each, 0 Refills, Maintenance, 10/02/20 10:55:00 EST, Aerosol, [facility]/pharmacy #[id number], 170, cm, 10/02/20 10:06:00 EST, Height, 56.3, kg, 11/24/19 22:58:00 EST, Dry Weight Start Date: 10/02/20 Status: Ordered Vitamin D3 1000 intl units oral capsule 1 capsule = 25 mcg, By Mouth, Daily, # 30 capsule, 11 Refills, Maintenance, 12/03/22 9:00:00 EST, Capsule, [facility]/pharmacy #[id number], Partial [...] Service Informant AF (atrial fibrillation) Discharge Diagnosis 12/03/22 Chronic respiratory failure with hypoxia Discharge Diagnosis 12/03/22 End stage COPD Discharge Diagnosis 12/03/22 Osteoporosis Discharge Diagnosis 12/03/22 Compression fracture of lumbar vertebra Discharge Diagnosis 12/03/22 Constipation Discharge Diagnosis 12/03/22 Anxiety Discharge Diagnosis 12/03/22 Social History Social History Type Response Tobacco Other: now smoking 1 /2 pack per day. Sex Patient Care team information Care Team Personnel Name: Angie Farmer RN Position: [facility] RN Member Role: Primary Care Nurse Name: Milena ORTIZ, Morgan Hancock Position: [facility] Renal MD Member Role: Lifetime Consulting Physician Address: Address: [address] [place] [address], [facility] [address] [place] [address]- Name: Graciela Nunez MD Position: [facility] Primary Care Physician Member Role: PCP Address: Address: [address] [place] [address]- Name: Luisa Storey RN Position: [facility] RN Member Role: Primary Care Nurse Care Team Related Persons Name: LAZARUS OSBORNE Address: [place] [address] Name: KAVON NICOLE Address: home [address] [place] [address] Name: PT, STATES NONE
--- OUTSIDE RECORDS SUMMARY | 2023-08-21 08:41 | XMS_ITS | Continuity of Care Document ---
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 Name Role Phone Graciela Nunez MD Primary Care Physician Encounter [facility] [place] Date(s): 05/18/22 - 06/17/22 [facility] [address] [place], [place] [address] Allergies, Adverse Reactions, Alerts [...] 23-valent vaccine 6 07/31/10 Recorded 1Result Comment: [id number] given w/out incident 2Location History: [place], [place] 3Admin Note: done @ dr jones office 4Location History: [facility] 5Location History: [facility] [...] 3 Refills, Maintenance, 04/09/22 9:54:00 EDT, Tablet, [facility] #[id number], Partial fill upon patient request if the prescription is for a schedule II opioid drug., 1 tablet By Mouth Daily, 170, cm, 02/04... Start Date: 04/09/22 Status: Ordered busPIRone 10 mg oral tablet 10 mg, 1, tablet, By Mouth, 3 times a day, # 90 tablet, Refills 1, Tot. Refills 1, Maintenance, 04/28/22 16:25:00 EDT, Route to Pharmacy Electronically, [facility] #[id number], new dosage, 170, cm, 02/04/22 11:19:00 EDT, Height, 44.1, kg, ... Start Date: 04/28/22 Status: Ordered calcium (as carbonate)-vitamin D 500 mg-400 intl units oral tablet 1 tablet, By Mouth, 2 times a day, calcium 500/vitamin d 400 iu twice daily, # 60 tablet, 6 Refills, Maintenance, 02/11/22 10:15:00 EDT, Tablet, [facility] #[id number], Partial fill upon patientrequest if the prescription is for a schedule II op... Start Date: 02/11/22 Status: Ordered calcium-vitamin D 600 mg-400 intl units oral tablet 1 tablet, By Mouth, 2 times a day, # 60 tablet, 6 Refills, Maintenance, 05/15/22 16:21:00 EDT, Tablet, [facility] #[id number], Partial fill upon patient request if the prescription is for a schedule II opioid drug., 1 tablet By Mouth 2 times a da... Start Date: 05/15/22 Status: Ordered Colace sodium 100 mg oral capsule 100 mg, 1, capsule, By Mouth, 2 times a day, PRN, # 180 capsule, Refills 1, Tot. Refills 1, Maintenance, for constipation, 06/17/22 11:03:00 EDT, Route to Pharmacy Electronically, [facility]acy #[id number],prefers gel formulation, 170, cm, 02/04/22 11:19:00... Start Date: 06/17/22 Status: Ordered diltiazem 180 mg/24 hours oral capsule, extended release 180 mg, 1, capsule, By Mouth, Daily, # 30 capsule, Refills 0, Tot. Refills 0, Maintenance, 11/06/2209:09:00 EST, Route to Pharmacy Electronically, [facility] #[id number], Partial fill upon patient request if the prescription is for a schedule II... Start Date: 11/06/21 Status: Ordered Flonase 50 mcg/inh nasal spray 1 sprays, Nares, Both, Daily in AM, # 16 Gm, 4 Refills, Maintenance, 12/03/21 12:34:00 EST, [place], [facility] #[id number], Partial fill upon patient request if the prescription is for a scheduleII opioid drug., 1 sprays Nares, Both Daily in AM,... Start Date: 12/03/21 Status: Ordered folic acid 1 mg oral tablet 1 mg, 1, tablet, By Mouth, Daily, # 30 tablet, Refills 11, Tot. Refills 11, Maintenance, 02/25/22 16:15:00 EDT, Route to Pharmacy Electronically, [facility] #[id number], 170, cm, 02/04/22 11:19:00 EDT, Height, 44.1, [...] 02/09/22 15:13:00 EDT, Route to Pharmacy Electronically, [facility] #[id number], 170, cm, 02/04/22 11:19:00 EDT, Height, 44.1, kg, 12/20/21 16:05:00 EST,... Start Date: 02/09/22 Status: Ordered Hair, Skin & Nails 5 mg oral capsule 1 capsule = 5 mg, By Mouth, Daily, # 90 capsule, 3 Refills, Maintenance, 02/19/22 12:29:00 EDT, [facility] #[id number], Partial fill upon patient request if the prescription is for a schedule IIopioid drug., 1 capsule By Mouth Daily, 170, cm, 04... Start Date: 02/19/22 Status: Ordered hydrOXYzine hydrochloride 10 mg oral tablet 1-2 TABLETS, By Mouth, 2 times a day, PRN NEEDED FOR ANXIETY, # 60 tablet, 3 Refills, [facility] [id number], 170, cm, 02/04/22 11:19:00 EDT, Height, 44.1, kg, 12/20/21 16:05:00 EST, Dry Weight Start Date: 05/27/22 Status: Ordered lactulose 10 gm/15 ml oral syrup 15 mL = 10 Gm, By Mouth, Every 72 hours, PRN as needed for constipation, # 300 mL, 5 Refills, Maintenance, 03/19/22 14:45:00 EDT, Syrup, [facility] #[id number], Partial fill upon patient requestif the prescription is for a schedule II opioid ivonne... Start Date: 03/19/22 Status: Ordered LORazepam 0.5 mg oral tablet 1 tablet = 0.5 mg, By Mouth, 3 times a day, # 60 tablet, 3 Refills, Maintenance, 04/28/22 16:24:00 EDT, Tablet, [facility] #[id number], Partial fill upon patient request if the [...] 10/22/21 15:09:00 EST, Route to Pharmacy Electronically, [facility] #[id number] Tablet, Partial fill upon patient request... Start [...] Refills, Maintenance, 02/26/21 15:47:00 EDT, ER Tablet, [facility] #[id number], Partial fill upon patient requestif the prescription is for a schedule II opioid ivonne... Start Date: 02/26/21 Status: Ordered Ventolin HFA 108 mcg/inh inhalation aerosol with adapter 2 puffs, Inhalation, 4 times a day, PRN for wheezing, # 1 each, 0 Refills, Maintenance, 10/02/20 10:55:00 EST, Aerosol, [facility]acy #[id number], 170, cm, 10/02/20 10:06:00 EST, Height, 56.3, kg, 11/24/19 22:58:00 EST, Dry Weight Start Date: 10/02/20 Status: Ordered Vitamin D3 1000 intl units oral capsule 1 capsule = 25 mcg, By Mouth, Daily, # 30 capsule, 11 Refills, Maintenance, 12/02/21 10:55:00 EST, Capsule, [facility] #[id number], Partial fill upon patient request if the prescription is for aschedule II opioid drug., 173, cm, 11/06/21 7:58:00... Start Date: 2/1/22 Status: Ordered Problem List Condition Effective Dates [...]
--- OUTSIDE RECORDS SUMMARY | 2023-08-21 08:41 | XMS_ITS | Continuity of Care Document ---
Author Name Unknown Organization [facility] Address [address] [place] [address]- Care Team Providers Care Coding Analyst Name Role Phone Graciela Nunez MD Primary Care Physician [phone] Encounter [facility] Date(s): 12/24/20 - 01/23/21 [facility] [address] [place], [place] [address] Attending Physician: Dennys Fabian Admitting Physician: Dennys [...] 23-valent vaccine 5 07/31/10 Recorded 1Location History: [place], [place] 2Admin Note: done @ dr jones office 3Location History: [facility] 4Location History: [facility] 5Location History: [facility] Medications alendronate 70 [...] Replace Required Details, Route to Pharmacy Electronically, [facility] #[id number]... Start Date: 01/31/20 Status: Ordered folic acid 1 mg oral tablet 1 mg, 1, tablet, By Mouth, Daily, # 30 tablet, Refills 3, Tot. Refills 3, Maintenance, 01/18/20 10:43:00 EDT, Route to Pharmacy Electronically, [facility] #[id number], 170, cm, 12/13/19 13:51:00EST, Height, 56.3, kg, 11/24/19 22:58:00 EST, Dry W... Start Date: 01/18/20 Status: Ordered furosemide 20 mg oral tablet 1, tablet, By Mouth, Daily, PRN, # 90 tablet, Refills 0, Tot. Refills 0, Maintenance, NEEDED FORLEG SWELLING, 04/19/20 15:50:00 EDT, Route to Pharmacy Electronically, [facility] #[id number],170, cm, 12/13/19 13:51:00 EST, Height, 56.3, kg, 0... Start Date: 04/19/20 Status: Ordered gabapentin 300 mg oral capsule 600 mg, 2, capsule, By Mouth, 3 times a day, # 180 capsule, Refills 3, Tot. Refills 3, Maintenance,10/01/20 15:48:00 EST, Route to Pharmacy Electronically, [facility] #[id number], 170, cm, 12/13/19 13:51:00 EST, Height, 56.3, kg, 11/24/19 22:58:... Start Date: 10/01/20 Status: Ordered gabapentin 300 mg oral capsule See Instructions, TAKE 2 CAPSULES BY MOUTH three times per day, # 180 capsule, Refills 1, Instructions Replace Required Details, Route to Pharmacy Electronically, [facility] #[id number], 170, cm, 12/13/19 13:51:00 EST, Height, 56.3, [...] days, # 28 tablet, 0 Refills, Acute 02/03/21 12:04:00 EDT, 01/20/21 12:04:00 EDT, Tablet, [facility] #[id number], Partial fill upon patient request if the prescription... Start Date: 01/20/21 Stop Date: 02/03/21 Status: Ordered Metoprolol Succinate ER 25 mg oral tablet, extended release 1 tablet = 25 mg, By Mouth, Daily, # 90 tablet, 1 Refills, Maintenance, 01/29/20 10:50:00 EDT, XL Tablet, [facility] #[id number], 170, cm, 12/13/19 13:51:00 EST, Height, 56.3, [...] 3 Refills, Maintenance, 11/21/20 10:53:00 EST, Tablet, [facility] #[id number], 170, cm, 10/02/20 10:06:00 EST, Height, 56.3, [...] 6 Refills, Maintenance, 06/17/20 16:11:00 EDT, Aerosol, [facility] #[id number], 170, cm, 12/13/19 13:51:00 EST, Height, 56.3, [...] 01/06/21 14:35:00 EST, Route to Pharmacy Electronically, [facility] #[id number], 170, cm, 10/02/20 10:06:00 EST, Height, 56.3, kg, 11/24/19 22:58:00 EST, Dry Weight Start Date: 01/06/21 Status: Ordered Zofran 4 mg oral tablet 1 tablet = 4 mg, By Mouth, 3 times a day, PRN nausea, # 30 tablet, 0 Refills, Maintenance, 209:17:00 EDT, Tablet, [facility] #[id number], 170, cm, 12/13/19 13:51:00 EST, Height, 56.3, [...]
--- OUTSIDE RECORDS SUMMARY | 2023-08-21 08:41 | XMS_ITS | Continuity of Care Document ---
Author Name Unknown Organization [facility] Address [address] [place] [id number]- Care Team Providers Care General Office Associate Name Role Phone Graciela Nunez MD Primary Care Physician [phone] [place] [facility] [place] 01/05/20 - 02/14/[address] [address]- [facility] Attending Physician: Graciela Nunez MD Admitting Physician: [...] 23-valent vaccine 5 07/31/10 Recorded 1Location History: [place], [place] 2Admin Note: done @ dr jones office 3Location History: [facility] 4Location History: [facility] 5Location History: [facility] Medications alendronate 70 mg oral [...] Replace Required Details, Route to Pharmacy Electronically, [facility] #[id number]... Start Date: 01/31/20 Status: Ordered [...] 01/18/20 10:43:00 EDT, Route to Pharmacy Electronically, [facility] #[id number], 170, cm, 12/13/19 13:51:00EST, Height, 56.3, kg, 11/24/19 22:58:00 EST, Dry W... Start Date: 01/18/20 Status: Ordered gabapentin 300 mg oral capsule See Instructions, TAKE 2 CAPSULES BY MOUTH EVERY MORNING, 1 CAPSULE MID DAY AND 2 CAPSULES EVERY NIGHT AT BEDTIME, # 150 capsule, Refills 1, Maintenance, Instructions Replace Required Details, Route to Pharmacy Electronically, [facility] #03... Start Date: 01/19/20 Status: Ordered [...] Refills, Maintenance, 01/29/20 10:50:00 EDT, XL Tablet, [facility] #[id number], 170, cm, 12/13/19 13:51:00 EST, Height, 56.3, [...] 12/18/19 14:10:00 EST, Route to Pharmacy Electronically, [facility] #[id number], 170, cm, 12/13/19 13:51:00 EST, Height, 56.3, [...]
--- OUTSIDE RECORDS SUMMARY | 2023-08-21 08:41 | XMS_ITS | Continuity of Care Document ---
Author Name Unknown Organization [facility] Address [address] [place] [address]- Care Team Providers Care Cancer Genetic Counselor Name Role Phone Graciela Nunez MD Primary Care Physician [phone] Encounter [facility] Date(s): 01/19/22 - 02/18/22 [facility] [address] [place], [place] [address] Allergies, Adverse Reactions, Alerts Substance [...] 23-valent vaccine 6 07/31/10 Recorded 1Result Comment: [id number] given w/out incident 2Location History: [place], [place] 3Admin Note: done @ dr jones office 4Location History: [facility] 5Location History: [facility] [...] 02/04/22 11:02:00 EDT, Route to Pharmacy Electronically, [facility] #[id number], change in dosage, 170, cm, 02/04/22 10:40:00 EDT, Height, 44.1, kg, 02... Start Date: 02/04/22 Status: Ordered calcium (as carbonate)-vitamin D 500 mg-400 intl units oral tablet 1 tablet, By Mouth, 2 times a day, calcium 500/vitamin d 400 iu twice daily, # 60 tablet, 6 Refills, Maintenance, 02/11/22 10:15:00 EDT, Tablet, [facility] #[id number], Partial fill upon patientrequest if the prescription is for a schedule II op... Start Date: 02/11/22 Status: Ordered Colace sodium 100 mg oral capsule 100 mg, 1, capsule, By Mouth, 2 times a day, PRN, # 60 capsule, Refills 5, Tot. Refills 5, Maintenance, for constipation, 02/04/22 11:08:00 EDT, Route to Pharmacy Electronically, [facility]#[id number], prefers gel formulation, 170, cm, 02/04/22... Start Date: 02/04/22 Status: Ordered diltiazem 180 mg/24 hours oral capsule, extended release 180 mg, 1, capsule, By Mouth, Daily, # 30 capsule, Refills 0, Tot. Refills 0, Maintenance, 11/06/2209:09:00 EST, Route to Pharmacy Electronically, [facility] #[id number], Partial fill upon patient request if the prescription is for a schedule II... Start Date: 11/06/21 Status: Ordered Flonase 50 mcg/inh nasal spray 1 sprays, Nares, Both, Daily in AM, # 16 Gm, 4 Refills, Maintenance, 12/03/21 12:34:00 EST, [place], [facility] #[id number], Partial fill upon patient request if the prescription is for a scheduleII opioid drug., 1 sprays Nares, Both Daily in AM,... Start Date: 12/03/21 Status: Ordered folic acid 1 mg oral tablet 1 mg, 1, tablet, By Mouth, Daily, # 30 tablet, Refills 5, Tot. Refills 5, Maintenance, 01/31/21 16:35:00 EDT, Route to Pharmacy Electronically, [facility] #[id number], 170, cm, 10/02/20 10:06:00EST, Height, 56.3, kg, [...] 02/09/22 15:13:00 EDT, Route to Pharmacy Electronically, [facility] #[id number], 170, cm, 02/04/22 11:19:00 EDT, Height, 44.1, kg, 12/20/21 16:05:00 EST,... Start Date: 02/09/22 Status: Ordered lactulose 10 gm/15 ml oral syrup 15 mL = 10 Gm, By Mouth, Every 72 hours, PRN as needed for constipation, # 300 mL, 5 Refills, Maintenance, 01/05/22 10:50:00 EST, Syrup, [facility] #[id number], Partial fill upon patient requestif the prescription is for a schedule II opioid ivonne... Start Date: 01/05/22 Status: Ordered LORazepam 0.5 mg oral tablet 1 tablet = 0.5 mg, By Mouth, 3 times a day, # 60 tablet, 3 Refills, Maintenance, 02/04/22 11:05:00 EDT, Tablet, [facility] #[id number], Partial fill upon patient request if the [...] 03/07/22 11:16:00 EDT, 02/04/22 11:16:00 EDT, Tablet, [facility] #[id number], Partial fill upon patient request if the [...] 10/22/21 15:09:00 EST, Route to Pharmacy Electronically, [facility] #[id number] Tablet, Partial fill upon patient request... Start [...] Refills, Maintenance, 02/26/21 15:47:00 EDT, ER Tablet, [facility] #[id number], Partial fill upon patient requestif the prescription is for a schedule II opioid ivonne... Start Date: 02/26/21 Status: Ordered Ventolin HFA 108 mcg/inh inhalation aerosol with adapter 2 puffs, Inhalation, 4 times a day, PRN for wheezing, # 1 each, 0 Refills, Maintenance, 10/02/20 10:55:00 EST, Aerosol, [facility]/pharmacy #[id number], 170, cm, 10/02/20 10:06:00 EST, Height, 56.3, kg, 11/24/19 22:58:00 EST, Dry Weight Start Date: 10/02/20 Status: Ordered Vitamin D3 1000 intl units oral capsule 1 capsule = 25 mcg, By Mouth, Daily, # 30 capsule, 11 Refills, Maintenance, 12/02/21 10:55:00 EST, Capsule, [facility] #[id number], Partial fill upon patient request if the [...]
--- OUTSIDE RECORDS SUMMARY | 2023-08-21 08:41 | XMS_ITS | Continuity of Care Document ---
Author Name Unknown Organization [facility] Address [address] [place] [address]- Care Team Providers Care Custom Dressmaker Name Role Phone Graciela Nunez MD Primary Care Physician Encounter [facility] Date(s): 08/08/21 - 09/07/21 [facility] [address] [place], [place] [address] Allergies, Adverse Reactions, Alerts Substance [...] 23-valent vaccine 5 07/31/10 Recorded 1Location History: [place], [place] 2Admin Note: done @ dr jones office 3Location History: [facility] 4Location History: [facility] 5Location History: [facility] Medications alendronate 70 mg oral [...] 0 Refills, Maintenance, 09/01/21 15:19:00 EDT, Capsule, [facility] #[id number], Partial fill upon patient request if the prescription i... Start Date: 09/01/21 Stop Date: 09/15/21 Status: Ordered folic acid 1 mg oral tablet 1 mg, 1, tablet, By Mouth, Daily, # 30 tablet, Refills 5, Tot. Refills 5, Maintenance, 01/31/21 16:35:00 EDT, Route to Pharmacy Electronically, [facility] #[id number], 170, cm, 10/02/20 10:06:00EST, Height, 56.3, kg, 11/24/19 22:58:00 EST, Dry W... Start Date: 01/31/21 Status: Ordered furosemide 20 mg oral tablet 1, tablet, By Mouth, Daily, PRN, # 90 tablet, Refills 0, Tot. Refills 0, Maintenance, NEEDED FORLEG SWELLING, 04/19/20 15:50:00 EDT, Route to Pharmacy Electronically, [facility] #[id number],170, cm, 12/13/19 13:51:00 EST, Height, 56.3, kg, 0... Start Date: 04/19/20 Status: Ordered gabapentin 300 mg oral capsule 2, capsule, By Mouth, 3 times a day, # 180 capsule, Refills 1, Tot. Refills 1, Maintenance, 08/26/21 10:50:00 EDT, Route to Pharmacy Electronically, [facility] #[id number], 162.56, cm, 08/22/21 2:36:00 EDT, Height, 52.65, [...] tablet, 2 Refills, Maintenance, 08/15/21 17:40:00 EDT, [facility] #[id number], 170, cm, 10/02/20 10:06:00 EST, Height, 56.3, kg, 11/24/19 22:58:00 EST, Dry Weight Start Date: 08/15/21 Status: Ordered Metoprolol Succinate ER 25 mg oral tablet, extended release 1 tablet = 25 mg, By Mouth, Daily, # 90 tablet, 1 Refills, Maintenance, 01/29/20 10:50:00 EDT, XL Tablet, [facility] #[id number], 170, cm, 12/13/19 13:51:00 EST, Height, 56.3, [...] 3 Refills, Maintenance, 03/13/21 13:26:00 EDT, Tablet, [facility] #[id number], 170, cm, 10/02/20 10:06:00 EST, Height, 56.3, [...] Refills, Maintenance, 02/26/21 15:47:00 EDT, ER Tablet, [facility] #[id number], Partial fill upon patient requestif the prescription is for a schedule II opioid ivonne... Start Date: 02/26/21 Status: Ordered Ventolin HFA 108 mcg/inh inhalation aerosol with adapter 2 puffs, Inhalation, 4 times a day, PRN for wheezing, # 1 each, 0 Refills, Maintenance, 10/02/20 10:55:00 EST, Aerosol, [facility]/pharmacy #[id number], 170, cm, 10/02/20 10:06:00 EST, Height, 56.3, kg, 11/24/19 22:58:00 EST, Dry Weight Start Date: 10/02/20 Status: Ordered Vitamin B1 100 mg oral tablet 1, tablet, By Mouth, Daily, # 30 tablet, Refills 7, Tot. Refills 0, Acute, 01/06/21 14:35:00 EST, Route to Pharmacy Electronically, [facility] #[id number], 170, cm, 10/02/20 10:06:00 EST, Height, 56.3, kg, 11/24/19 22:58:00 EST, Dry Weight Start Date: 01/06/21 Status: Ordered Zofran 4 mg oral tablet 1 tablet = 4 mg, By Mouth, 3 times a day, PRN nausea, # 30 tablet, 0 Refills, Maintenance, 08/12/209:17:00 EDT, Tablet, [facility] #[id number], 170, cm, 12/13/19 13:51:00 EST, Height, 56.3, [...]
--- OUTSIDE RECORDS SUMMARY | 2023-08-21 08:41 | XMS_ITS | Continuity of Care Document ---
Author Name Unknown Organization [facility] Address [address] [place] [address]- Care Team Providers Care Long Lines Operator Name Role Phone Graciela Nunez MD Primary Care Physician Encounter [facility] Date(s): 09/08/21 - 10/08/21 [facility] [address] [place], [place] [address] Allergies, Adverse Reactions, Alerts Substance Reaction [...] 23-valent vaccine 5 07/31/10 Recorded 1Location History: [place], [place] 2Admin Note: done @ dr jones office 3Location History: [facility] 4Location History: [facility] 5Location History: [facility] Medications alendronate 70 mg oral tablet [...] 0 Refills, Maintenance, 09/01/21 15:19:00 EDT, Capsule, [email or web address] #[id number], Partial fill upon patient request if the [...] 01/31/21 16:35:00 EDT, Route to Pharmacy Electronically, [facility] #[id number], 170, cm, 10/02/20 10:06:00EST, Height, 56.3, kg, 11/24/19 22:58:00 EST, Dry W... Start Date: 01/31/21 Status: Ordered furosemide 20 mg oral tablet 1, tablet, By Mouth, Daily, PRN, # 90 tablet, Refills 0, Tot. Refills 0, Maintenance, NEEDED FORLEG SWELLING, 04/19/20 15:50:00 EDT, Route to Pharmacy Electronically, [facility] #[id number],170, cm, 12/13/19 13:51:00 EST, Height, 56.3, kg, 0... Start Date: 04/19/20 Status: Ordered gabapentin 300 mg oral capsule 2, capsule, By Mouth, 3 times a day, # 180 capsule, Refills 1, Tot. Refills 1, Maintenance, 08/26/21 10:50:00 EDT, Route to Pharmacy Electronically, [facility] #[id number], 162.56, cm, 08/22/21 2:36:00 EDT, Height, 52.65, [...] tablet, 0 Refills, Maintenance, 09/10/21 16:04:00 EST, [facility] #[id number], 170, cm, 08/30/21 17:40:00 EDT, Height,51.5, kg, 08/30/21 17:40:00 EDT, Dry Weight Start Date: 09/10/21 Status: Ordered Metoprolol Succinate ER 25 mg oral tablet, extended release 1 tablet = 25 mg, By Mouth, Daily, # 90 tablet, 1 Refills, Maintenance, 01/29/20 10:50:00 EDT, XL Tablet, [facility] #[id number], 170, cm, 12/13/19 13:51:00 EST, Height, 56.3, kg, 11/24/19 22:58:00 EST, Dry Weight Start Date: 01/29/20 Status: Ordered predniSONE 10 mg oral tablet See Instructions, 4 tabs x 3 days, 3 tabs x 3 days, 2 tabs x 3 days, 1 tab x 3 days, # 30 tablet, 0Refills, Acute 10/11/21 12:03:00 EST, 09/11/21 12:03:00 EST, Tablet, [facility] #[id number], Partial fill upon patient request if the [...] 3 Refills, Maintenance, 03/13/21 13:26:00 EDT, Tablet, [email or web address] #[email or web address], 170, cm, 10/02/20 10:06:00 EST, Height, 56.3, [...] Refills, Maintenance, 02/26/21 15:47:00 EDT, ER Tablet, [email or web address] #[id number], Partial fill upon patient requestif the prescription [...] 01/06/21 14:35:00 EST, Route to Pharmacy Electronically, [facility] #[id number], 170, cm, 10/02/20 10:06:00 EST, Height, 56.3, kg, 11/24/19 22:58:00 EST, Dry Weight Start Date: 01/06/21 Status: Ordered Zofran 4 mg oral tablet 1 tablet = 4 mg, By Mouth, 3 times a day, PRN nausea, # 30 tablet, 0 Refills, Maintenance, :17:00 EDT, Tablet, [facility] #[id number], 170, cm, 12/13/19 13:51:00 EST, Height, 56.3, [...]
--- OUTSIDE RECORDS SUMMARY | 2023-08-21 08:41 | XMS_ITS | Continuity of Care Document ---
Author Name Unknown Organization [facility] Address [address] [place] [address]- Care Team Providers Care Sales Technician Name Role Phone Graciela Nunez MD Primary Care Physician Encounter [facility] Date(s): 11/26/22 - 12/26/22 [facility] [address] [place], [place] [address] Allergies, Adverse Reactions, Alerts Substance [...] 23-valent vaccine 6 07/31/10 Recorded 1Result Comment: [id number] given w/out incident 2Location History: [place], [place] 3Admin Note: done @ dr jones office 4Location History: [facility] 5Location History: [facility] 6Location History: [facility] Medications aspirin 81 mg oral [...] 10/20/22 15:10:00 EST, Route to Pharmacy Electronically, [facility]/pharmacy #[id number], Partial fillupon patient request if the prescription is for a s... Start Date: 10/20/22 Stop Date: 12/01/22 Status: Ordered busPIRone 10 mg oral tablet 1, tablet, By Mouth, 3 times a day, # 270 tablet, Refills 1, Maintenance, 11/12/22 17:44:00 EST, Route to Pharmacy Electronically, [id number], 170, cm, 02/04/22 11:19:00 EDT, Height, 44.1, kg, 12/20/21 16:05:00 EST, Dry Weight Start Date: 11/12/22 Status: Ordered calcium-vitamin D 600 mg-400 intl units oral tablet 1 tablet, By Mouth, 2 times a day, # 60 tablet, 6 Refills, Maintenance, 05/15/22 16:21:00 EDT, Tablet, [facility] #[id number], Partial fill upon patient request if the prescription is for a schedule II opioid drug., 1 tablet By Mouth 2 times a da... Start Date: 05/15/22 Status: Ordered Colace sodium 100 mg oral capsule 100 mg, 1, capsule, By Mouth, 2 times a day, PRN, # 180 capsule, Refills 1, Tot. Refills 1, Maintenance, for constipation, 06/23/22 10:20:00 EDT, Route to Pharmacy Electronically, [facility]/pharmacy #[id number],prefers gel formulation, 170, cm, 02/04/22 11:19:00... Start Date: 06/23/22 Status: Ordered Flonase 50 mcg/inh nasal spray 1 sprays, Nares, Both, Daily in AM, # 16 Gm, 4 Refills, Maintenance, 12/03/21 12:34:00 EST, [place], [facility] #[id number], Partial fill upon patient request if the prescription is for a scheduleII opioid drug., 1 sprays Nares, Both Daily in AM,... Start Date: 12/03/21 Status: Ordered folic acid 1 mg oral tablet 1 mg, 1, tablet, By Mouth, Daily, # 30 tablet, Refills 11, Tot. Refills 11, Maintenance, 12/03/22 9:01:00 EST, [id number], cm, 02/04/22 11:19:00 EDT, Height, 44.1, kg, 12/20/21 16:05:00 EST, Dry Weight Start Date: 12/03/22 Status: Ordered gabapentin 300 mg oral capsule 2, capsule, By Mouth, 3 times a day, # 180 capsule, Refills 5, Tot. Refills 5, Maintenance, 08/13/22 13:03:00 EDT, [id number], 170, cm, 02/04/22 11:19:00 EDT, Height, 44.1, kg, 12/20/21 16:05:00 EST, Dry Weight Start Date: 08/13/22 Status: Ordered Hair, Skin & Nails 5 mg oral capsule 1 capsule = 5 mg, By Mouth, Daily, # 90 capsule, 3 Refills, Maintenance, 02/19/22 12:29:00 EDT, [facility] #[id number], Partial fill upon patient request if the prescription is for a schedule IIopioid drug., 1 capsule By Mouth Daily, 170, cm, 04... Start Date: 02/19/22 Status: Ordered hydrOXYzine hydrochloride 10 mg oral tablet 1 tablet = 10 mg, By Mouth, 3 times a day, PRN NEEDED FOR ANXIETY, # 90 tablet, 1 Refills, Maintenance, 12/03/22 8:55:00 EST, [facility]/pharmacy #[id number], 170, cm, 02/04/22 11:19:00 EDT, Height, 44.1, kg, 12/20/21 16:05:00 EST, Dry Weight Start Date: 12/03/22 Status: Ordered lactulose 10 gm/15 ml oral syrup 15 mL = 10 Gm, By Mouth, Every 72 hours, PRN as needed for constipation, # 300 mL, 5 Refills, Maintenance, 03/19/22 14:45:00 EDT, Syrup, [facility] #[id number], Partial fill upon patient requestif the prescription is for a schedule II opioid ivonne... Start Date: 03/19/22 Status: Ordered LORazepam 0.5 mg oral tablet 1 tablet = 0.5 mg, By Mouth, 3 times a day, # 60 tablet, 1 Refills, Maintenance, 11/27/22 14:50:00 EST, Tablet, [facility]/pharmacy #[id number], Partial fill upon patient request [...] 3 Refills, Maintenance, 12/16/22 9:12:00 EST, Capsule, [facility]/pharmacy #[id number], Partial fill upon patient request [...] 12/03/22 8:52:00 EST, Route to Pharmacy Electronically, [facility]/pharmacy #[id number], Partial fill upon patient request [...] 21 tablet, 3 Refills, 12/03/22 8:53:00 EST, [facility]/pharmacy #[id number], 170, cm, 02/04/22 11:19:00 EDT, Height, 44.1, kg, 12/20/21 16:0... Start Date: 12/03/22 Status: Ordered Tylenol 8 HR Arthritis Pain 650 mg oral tablet, extended release 1 tablet = 650 mg, By Mouth, Every 8 hours, PRN Pain , Moderate, # 100 tablet, 1 Refills, Maintenance, 02/26/21 15:47:00 EDT, ER Tablet, [facility] #[id number], Partial fill upon patient requestif the prescription [...] Nurse Name: Milena ORTIZ, Morgan Hancock Position: [facility] Renal MD Member Role: Lifetime Consulting Physician Address: Address: [address], [address] [place] [address]- [place] Name: Graciela Nunez MD Position: [facility] Primary Care Physician Member Role: PCP Address: Address: [address] [place] [id number]- [place] Name: Luisa Storey RN Position: [facility] RN Member Role: Primary Care Nurse Care Team Related Persons Name: LAZARUS OSBORNE Address: [place] [address] Name: KAVON NICOLE Address: [address] [place] [address] Name: PT, [facility] NONE
--- OUTSIDE RECORDS SUMMARY | 2023-08-21 08:41 | XMS_ITS | Continuity of Care Document ---
Author Name Unknown Organization [facility] Address [address] [place] [address]- Care Team Providers Care High Value Associate Name Role Phone Mayra ORTIZ, Graciela Lares Primary Care Physician Encounter [facility] Date(s): 05/15/22 - 05/22/22 [facility] [address] [place], [place] [address] Encounter Diagnosis Upper back pain(Discharge Diagnosis) - 05/15/22 Attending Physician: Leon Curtis MD Allergies, Adverse Reactions, Alerts Substance Reaction [...] 23-valent vaccine 6 07/31/10 Recorded 1Result Comment: [id number] given w/out incident 2Location History: [place], [place] 3Admin Note: done @ dr jones office 4Location History: [facility] 5Location History: [facility] 6Location History: [facility] Medications aspirin 81 mg oral [...] 3 Refills, Maintenance, 04/09/22 9:54:00 EDT, Tablet, [facility] #[id number], Partial fill upon patient request if the prescription is for a schedule II opioid drug., 1 tablet By Mouth Daily, 170, cm, 02/04... Start Date: 04/09/22 Status: Ordered busPIRone 10 mg oral tablet 10 mg, 1, tablet, By Mouth, 3 times a day, # 90 tablet, Refills 1, Tot. Refills 1, Maintenance, 04/28/22 16:25:00 EDT, Route to Pharmacy Electronically, [facility] #[id number], new dosage, 170, cm, 02/04/22 11:19:00 EDT, Height, 44.1, kg, ... Start Date: 04/28/22 Status: Ordered calcium (as carbonate)-vitamin D 500 mg-400 intl units oral tablet 1 tablet, By Mouth, 2 times a day, calcium 500/vitamin d 400 iu twice daily, # 60 tablet, 6 Refills, Maintenance, 02/11/22 10:15:00 EDT, Tablet, [facility] #[id number], Partial fill upon patientrequest if the prescription is for a schedule II op... Start Date: 02/11/22 Status: Ordered calcium-vitamin D 600 mg-400 intl units oral tablet 1 tablet, By Mouth, 2 times a day, # 60 tablet, 6 Refills, Maintenance, 05/15/22 16:21:00 EDT, Tablet, [facility] #[id number], Partial fill upon patient request if the prescription is for a schedule II opioid drug., 1 tablet By Mouth 2 times a da... Start Date: 05/15/22 Status: Ordered Colace sodium 100 mg oral capsule 100 mg, 1, capsule, By Mouth, 2 times a day, PRN, # 60 capsule, Refills 5, Tot. Refills 5, Maintenance, for constipation, 02/04/22 11:08:00 EDT, Route to Pharmacy Electronically, [facility]#[id number], prefers gel formulation, 170, cm, 02/04/22... Start Date: 02/04/22 Status: Ordered diltiazem 180 mg/24 hours oral capsule, extended release 180 mg, 1, capsule, By Mouth, Daily, # 30 capsule, Refills 0, Tot. Refills 0, Maintenance, 11/06/2209:09:00 EST, Route to Pharmacy Electronically, [facility] #[id number], Partial fill upon patient request if the prescription is for a schedule II... Start Date: 11/06/21 Status: Ordered Flonase 50 mcg/inh nasal spray 1 sprays, Nares, Both, Daily in AM, # 16 Gm, 4 Refills, Maintenance, 12/03/21 12:34:00 EST, [place], [facility] #[id number], Partial fill upon patient request if the prescription is for a scheduleII opioid drug., 1 sprays Nares, Both Daily in AM,... Start Date: 12/03/21 Status: Ordered folic acid 1 mg oral tablet 1 mg, 1, tablet, By Mouth, Daily, # 30 tablet, Refills 11, Tot. Refills 11, Maintenance, 02/25/22 16:15:00 EDT, Route to Pharmacy Electronically, [facility] #[id number], 170, cm, 02/04/22 11:19:00 EDT, Height, 44.1, [...] 02/09/22 15:13:00 EDT, Route to Pharmacy Electronically, [facility] #[id number], 170, cm, 02/04/22 11:19:00 EDT, Height, 44.1, kg, 12/20/21 16:05:00 EST,... Start Date: 02/09/22 Status: Ordered Hair, Skin & Nails 5 mg oral capsule 1 capsule = 5 mg, By Mouth, Daily, # 90 capsule, 3 Refills, Maintenance, 02/19/22 12:29:00 EDT, [facility] #[id number], Partial fill upon patient request if the prescription is for a schedule IIopioid drug., 1 capsule By Mouth Daily, 170, cm, 04... Start Date: 02/19/22 Status: Ordered hydrOXYzine hydrochloride 10 mg oral tablet 1-2 tablet, By Mouth, 2 times a day, PRN as needed for anxiety, # 60 tablet, 3 Refills, Maintenance, 05/18/22 14:56:00 EDT, [facility]acy #[id number], Partial fill upon patient request if the prescription is for a schedule II opioid drug., 170, cm, 02/04/22... Start Date: 05/18/22 Status: Ordered lactulose 10 gm/15 ml oral syrup 15 mL = 10 Gm, By Mouth, Every 72 hours, PRN as needed for constipation, # 300 mL, 5 Refills, Maintenance, 03/19/22 14:45:00 EDT, Syrup, [facility] #[id number], Partial fill upon patient requestif the prescription is for a schedule II opioid ivonne... Start Date: 03/19/22 Status: Ordered LORazepam 0.5 mg oral tablet 1 tablet = 0.5 mg, By Mouth, 3 times a day, # 60 tablet, 3 Refills, Maintenance, 04/28/22 16:24:00 EDT, Tablet, [id number], Partial fill upon patient request if the [...] 10/22/21 15:09:00 EST, Route to Pharmacy Electronically, [facility] #[id number] Tablet, Partial fill upon patient request... Start [...] Refills, Maintenance, 02/26/21 15:47:00 EDT, ER Tablet, [facility] #[id number], Partial fill upon patient requestif the prescription is for a schedule II opioid ivonne... Start Date: 02/26/21 Status: Ordered Ventolin HFA 108 mcg/inh inhalation aerosol with adapter 2 puffs, Inhalation, 4 times a day, PRN for wheezing, # 1 each, 0 Refills, Maintenance, 10/02/20 10:55:00 EST, Aerosol, [facility]/pharmacy #[id number], 170, cm, 10/02/20 10:06:00 EST, Height, 56.3, kg, 11/24/19 22:58:00 EST, Dry Weight Start Date: 10/02/20 Status: Ordered Vitamin D3 1000 intl units oral capsule 1 capsule = 25 mcg, By Mouth, Daily, # 30 capsule, 11 Refills, Maintenance, 12/02/21 10:55:00 EST, Capsule, [facility] #[id number], Partial fill upon patient request if the [...] Dates Health Status Cl inical Service Informant Upper back pain Discharge Diagnosis 05/15/22 Social History Social History Type Response Tobacco Other: now smoking 1 /2 pack per day. Sex
--- OUTSIDE RECORDS SUMMARY | 2023-08-21 08:41 | XMS_ITS | Continuity of Care Document ---
Author Name Unknown Organization [facility] ter Address [address] [place] [address]- Care Team Providers Care Milieu Coordinator Name Role Phone Graciela Nunez MD Primary Care Physician Encounter [facility] Date(s): 04/16/20 - 04/17/[address] [address]- [facility] Encounter Diagnosis Shortness of breath(Final) - 04/17/20 COPD exacerbation(Final) - 04/17/20 Discharge Disposition: A-D/C Home Attending Physician: Rafael Crenshaw MD Admitting Physician: Rafael Crenshaw MD Referring Physician: Not on Staff, Referring [...] vaccine 5 07/31/10 Recorded 1Location History: [place], [place] 2Admin Note: done @ dr jones office 3Location History: [facility] 4Location History: [facility] 5Location History: [facility] Medications alendronate 70 mg oral [...] Replace Required Details, Route to Pharmacy Electronically, [facility] #[id number]... Start Date: 01/31/20 Status: Ordered [...] 01/18/20 10:43:00 EDT, Route to Pharmacy Electronically, [facility] #[id number], 170, cm, 12/13/19 13:51:00EST, Height, 56.3, kg, 11/24/19 22:58:00 EST, Dry W... Start Date: 01/18/20 Status: Ordered gabapentin 300 mg oral capsule See Instructions, TAKE 2 CAPSULES BY MOUTH EVERY MORNING, 1 CAPSULE MID DAY AND 2 CAPSULES EVERY NIGHT AT BEDTIME, # 150 capsule, Refills 1, Maintenance, Instructions Replace Required Details, Route to Pharmacy Electronically, [facility] #[id number]... Start Date: 01/19/20 Status: Ordered [...] Refills, Maintenance, 01/29/20 10:50:00 EDT, XL Tablet, [facility] #[id number], 170, cm, 12/13/19 13:51:00 EST, Height, 56.3, [...] 12/18/19 14:10:00 EST, Route to Pharmacy Electronically, [facility] #[id number], 170, cm, 12/13/19 13:51:00 EST, Height, 56.3, [...] to oldest [Reference Range]: 1 2 3 Oxygen Saturation [94-100 %] 97 % (04/17/20 12:29 AM) 97 % (04/16/20 6:17 PM) 100 % (04/16/20 4:54 PM) Pulse Rate [55-90 bpm] 102 bpm *H* (04/17/20 12:29 AM) 104 bpm *H* (04/16/20 6:17 PM) 109 bpm *H* (04/16/20 4:54 PM) Blood Pressure [90-138/55-84 mm Hg] 117/63mm Hg (04/17/20 12:29 AM) 129/74mm Hg (04/16/20 4:54 PM) Respiratory Rate [16-30 br/min] 22 br/min (04/17/20 12:29 AM) 24 br/min (04/16/20 6:17 PM) 26 br/min (04/16/20 4:54 PM) Temperature [96.8-100.4 DegF] 98.0 DegF (04/16/20 4:54 PM) Liters per Minute 3 L/min (04/17/20 12:29 AM) 3 L/min (04/16/20 6:17 PM) 4 L/min (04/16/20 4:54 PM) Mode of Delivery (Oxygen) Nasal cannula (04/17/20 12:29 AM) Nasal cannula (04/16/20 6:17 PM) Room air (04/16/20 4:54 PM) Blood pressure sites Arm, right (04/17/20 12:29 AM) Arm, right (04/16/20 4:54 PM) Temperature Route Oral (04/16/20 4:54 PM) Social History Social History Type Response Smoking Status Current every day sm oker; Tobacco use times per day: smokes about 1.5 packs per day; entered on: 04/16/16 Sex
--- OUTSIDE RECORDS SUMMARY | 2023-08-21 08:41 | XMS_ITS | Continuity of Care Document ---
Author Name Unknown Organization [facility] Address [address] [place] [address]- Care Team Providers Care Business Technology Architect Name Role Phone Graciela Nunez MD Primary Care Physician [phone] Encounter [facility] Date(s): 05/31/23 - 06/30/23 [facility] [address] [place], [place] [address] Allergies, Adverse Reactions, [...] 23-valent vaccine 6 07/31/10 Recorded 1Result Comment: [id number] given w/out incident 2Location History: [place], [place] 3Admin Note: done @ dr jones office 4Location History: [facility] 5Location History: [facility] 6Location History: [facility] Medications albuterol-ipratropium 3 mg-0.5 [...] 15:31:00 EDT, Route to Pharmacy Electronically, [facility]/pharmacy #[id number], Partial fill upon patient request if the [...] A DAY NEEDED FOR CONSTIPATION. FILLED AT [facility] Start Date: 03/18/23 Status: Ordered folic acid 1 mg oral tablet 1 mg, 1, tablet, By Mouth, Daily, # 30 tablet, Refills 11, Tot. Refills 11, Maintenance, 12/03/22 9:01:00 EST, Route to Pharmacy Electronically, [facility]/pharmacy #[id number], 170, cm, 02/04/22 11:19:00 EDT, Height, 44.1, kg, 12/20/21 16:05:00 EST, Dry Weight Start Date: 12/03/22 Status: Ordered gabapentin 300 mg oral capsule 2, capsule, By Mouth, 3 times a day, # 180 capsule, Refills 5, Tot. Refills 5, Maintenance, 08/13/22 13:03:00 EDT, Route to Pharmacy Electronically, [facility]/pharmacy #[id number], 170, cm, 02/04/22 11:19:00 EDT, Height, 44.1, kg, 12/20/21 16:05:00 EST, Dry Weight Start Date: 08/13/22 Status: Ordered hydrOXYzine hydrochloride 10 mg oral tablet 3 tablet = 30 mg, By Mouth, 3 times a day, PRN NEEDED FOR ANXIETY, # 270 tablet, 3 Refills, Maintenance, 03/01/23 12:03:00 EDT, [facility]/pharmacy #[id number], 170, cm, 02/04/22 11:19:00 EDT, Height, [...] Refills, Maintenance, 12/16/22 9:12:00 EST, Capsule, [facility]/pharmacy #[id number], Partial fill upon patient request if [...] capsule, 0 Refills, Maintenance, 06/24/23 19:50:00 EDT,[facility]/pharmacy #[id number], Partial fill upon patient request if [...] Team Personnel Name: Morgan Abbott MD Position: [facility] Renal MD Member Role: Lifetime Consulting Physician Address: Address: [address] [place] [address]- Name: Graciela Nunez MD Position: [facility] Physician - Primary Care Member Role: PCP Address: Address: [address] [place] [address]- Name: Maryam Camara RN Position: S RN Member Role: Primary Care Nurse Name: Josemanuel Hawkins RN Position: S RN Member Role: Primary Care Nurse Name: Mckay Esquivel MD Position: [facility] Renal MD Member Role: Lifetime Consulting Physician Address: Address: [address] [place] [address]- Name: Rylie Francois RN Position: S RN Member Role: Primary Care Nurse Name: Luisa Storey RN Position: [facility] RN Member Role: Primary Care Nurse Name: Anabela Beavers Position: S RN Member Role: Primary Care Nurse Name: Tracey Chavez Position: S RN Member Role: Primary Care Nurse Name: Angelica Montemayor RN Position: [facility] RN Member Role: Primary Care Nurse Name: Paty Ventura RN Position: [facility] RN Member Role: Primary Care Nurse Name: Ninfa Soto RN Position: [facility] RN Member Role: Primary Care Nurse Name: Romeo Reid MD Position: [facility] Renal MD Member Role: Lifetime Consulting Physician Address: Address: [address] [place] [address] [facility] [place] [address]- Name: Olga Valladares RN Position: [facility] RN Member Role: Primary Care Nurse Name: Ruby Alexandre RN Position: S RN Member Role: Primary Care Nurse Address: Address: [address] [place] [address]- Name: Celso Lawson MD Position: [facility] Renal MD Member Role: Lifetime Consulting Physician Address: Address: [address] [place] [address] [facility] [place] [address]- Name: Alyssa Camacho RN Position: [facility] RN Member Role: Primary Care Nurse Name: Keely Pascal RN Position: [facility] RN Member Role: Primary Care Nurse Name: Chloe Fisher LPN Position: S RN Member Role: Primary Care Nurse Care Team Related Persons Name: LAZARUS OSBORNE Address: [place] [address] Name: KAVON NICOLE Address: home [address] [place] [address] Name: PT, [facility]
--- OUTSIDE RECORDS SUMMARY | 2023-08-21 08:41 | XMS_ITS | Continuity of Care Document ---
Author Name Unknown Organization [facility] Address [address] [place] [address]- Care Team Providers Care Manager Of Disaster Recovery Name Role Phone Graciela Nunez MD Primary Care Physician [phone] Encounter [facility] Date(s): 09/01/22 - 10/01/22 [facility] [address] [place], [place] [address] Allergies, Adverse Reactions, Alerts Substance Reaction Severity Status codeine Rash Nausea Moderate Active sulfADIAZINE Rash Moderate Active morphine respiratory depression Activ e Lyrica increased depression Active Immunizations Given and Recorded Vaccine Date Status Refusal Reason influenza virus vaccine, inactivated 1 10/09/21 Gi ike influenza virus vaccine, inactivated 2 10/20/17 Re corded influenza virus vaccine, inactivated 08/03/16 Dogu rded influenza virus vaccine, inactivated 3 09/19/15 [...] 23-valent vaccine 6 07/31/10 Recorded 1Result Comment: [id number] given w/out incident 2Location History: [place], [place] 3Admin Note: done @ dr jones office 4Location History: [facility] 5Location History: [facility] [...] 3 Refills, Maintenance, 04/09/22 9:54:00 EDT, Tablet, [facility] #[id number], Partial fill upon patient request if the prescription is for a schedule II opioid drug., 1 tablet By Mouth Daily, 170, cm, 02/04... Start Date: 04/09/22 Status: Ordered busPIRone 10 mg oral tablet 10 mg, 1, tablet, By Mouth, 3 times a day, # 90 tablet, Refills 3, Tot. Refills 3, Maintenance, 07/30/22 13:44:00 EDT, Route to Pharmacy Electronically, [facility]/pharmacy #[id number], new dosage, 170, cm, 02/04/22 11:19:00 EDT, Height, 44.1, kg, 12/20/21 16:05:0... Start Date: 07/30/22 Status: Ordered calcium (as carbonate)-vitamin D 500 mg-400 intl units oral tablet 1 tablet, By Mouth, 2 times a day, calcium 500/vitamin d 400 iu twice daily, # 60 tablet, 6 Refills, Maintenance, 02/11/22 10:15:00 EDT, Tablet, [facility] #[id number], Partial fill upon patientrequest if the prescription is for a schedule II op... Start Date: 02/11/22 Status: Ordered calcium-vitamin D 600 mg-400 intl units oral tablet 1 tablet, By Mouth, 2 times a day, # 60 tablet, 6 Refills, Maintenance, 05/15/22 16:21:00 EDT, Tablet, [facility] #[id number], Partial fill upon patient request if the prescription is for a schedule II opioid drug., 1 tablet By Mouth 2 times a da... Start Date: 05/15/22 Status: Ordered Colace sodium 100 mg oral capsule 100 mg, 1, capsule, By Mouth, 2 times a day, PRN, # 180 capsule, Refills 1, Tot. Refills 1, Maintenance, for constipation, 06/23/22 10:20:00 EDT, Route to Pharmacy Electronically, [facility]/pharmacy #[id number],prefers gel formulation, 170, cm, 02/04/22 11:19:00... Start Date: 06/23/22 Status: Ordered diltiazem 180 mg/24 hours oral capsule, extended release 180 mg, 1, capsule, By Mouth, Daily, # 30 capsule, Refills 0, Tot. Refills 0, Maintenance, 11/06/2209:09:00 EST, Route to Pharmacy Electronically, [facility] #[id number], Partial fill upon patient request if the prescription is for a schedule II... Start Date: 11/06/21 Status: Ordered Flonase 50 mcg/inh nasal spray 1 sprays, Nares, Both, Daily in AM, # 16 Gm, 4 Refills, Maintenance, 12/03/21 12:34:00 EST, [place], [facility] #[id number], Partial fill upon patient request if the prescription is for a scheduleII opioid drug., 1 sprays Nares, Both Daily in AM,... Start Date: 12/03/21 Status: Ordered folic acid 1 mg oral tablet 1 mg, 1, tablet, By Mouth, Daily, # 30 tablet, Refills 11, Tot. Refills 11, Maintenance, 02/25/22 16:15:00 EDT, Route to Pharmacy Electronically, [facility] #[id number], 170, cm, 02/04/22 11:19:00 EDT, Height, 44.1, [...] EDT, Route to Pharmacy Electronically, [facility]/pharmacy #[id number], 170, cm, 02/04/22 11:19:00 EDT, Height, 44.1, kg, 12/20/21 16:05:00 EST, Dry Weight Start Date: 08/13/22 Status: Ordered Hair, Skin & Nails 5 mg oral capsule 1 capsule = 5 mg, By Mouth, Daily, # 90 capsule, 3 Refills, Maintenance, 02/19/22 12:29:00 EDT, [facility] #[id number], Partial fill upon patient request if the prescription is for a schedule IIopioid drug., 1 capsule By Mouth Daily, 170, cm, 04... Start Date: 02/19/22 Status: Ordered hydrOXYzine hydrochloride 10 mg oral tablet 1-2 TABLETS, By Mouth, 2 times a day, PRN NEEDED FOR ANXIETY, # 60 tablet, 5 Refills, Maintenance, 09/22/22 16:15:00 EST, [facility]/pharmacy #[id number], 170, cm, 02/04/22 11:19:00 EDT, Height, 44.1, kg, 12/20/21 16:05:00 EST, Dry Weight Start Date: 09/22/22 Status: Ordered lactulose 10 gm/15 ml oral syrup 15 mL = 10 Gm, By Mouth, Every 72 hours, PRN as needed for constipation, # 300 mL, 5 Refills, Maintenance, 03/19/22 14:45:00 EDT, Syrup, [facility] #[id number], Partial fill upon patient requestif the prescription is for a schedule II opioid ivonne... Start Date: 03/19/22 Status: Ordered LORazepam 0.5 mg oral tablet 1 tablet = 0.5 mg, By Mouth, 3 times a day, # 60 tablet, 3 Refills, Maintenance, 07/08/22 17:11:00 EDT, Tablet, [facility]/pharmacy #[id number], Partial fill upon patient request if the prescription is for a schedule II opioid drug., 170, cm, 02/04/22 11:19:00 EDT... Start Date: 07/08/22 Status: Ordered LORazepam 0.5 mg oral tablet 1 tablet = 0.5 mg, By Mouth, 3 times a day, # 60 tablet, 3 Refills, Maintenance, 09/18/22 16:44:00 EST, Tablet, [facility]/pharmacy #[id number], Partial fill upon [...] 10/22/21 15:09:00 EST, Route to Pharmacy Electronically, [facility] #[id number] Tablet, Partial fill upon patient request... Start [...] 10/28/22 15:13:00 EST, 09/30/22 15:13:00 EST, Tablet, [facility]/pharmacy #[id number], Partial fill upon patient request if the [...] Refills, Maintenance, 02/26/21 15:47:00 EDT, ER Tablet, [facility] #[id number], Partial fill upon patient requestif the prescription [...] 11 Refills, Maintenance, 12/02/21 10:55:00 EST, Capsule, [facility] #[id number], Partial fill upon patient request if the [...] Team Personnel Name: Angie Farmer RN Position: [facility] RN Member Role: Primary Care Nurse Name: Milena ORTIZ, Morgan Hancock Position: [facility] Renal MD Member Role: Lifetime Consulting Physician Address: Address: [address] [place] [address], [address] [place] [address] Name: Graciela Nunez MD Position: [facility] Primary Care Physician Member Role: PCP Address: Address: [address] [place] [address]- Name: Luisa Storey RN Position: S RN Member Role: Primary Care Nurse Care Team Related Persons Name: LAZARUS OSBORNE Address: [place] [address] Name: KAVON NICOLE Address: home [address] [place] [address] Name: , [facility]
--- OUTSIDE RECORDS SUMMARY | 2023-08-21 08:41 | XMS_ITS | Continuity of Care Document ---
Author Name Unknown Organization [facility] Address [address] [place] [address]- Care Team Providers Care Speech Instructor Name Role Phone Mayra ORTIZ, Graciela Lares Primary Care Physician [phone] Encounter [facility] Date(s): 12/31/20 - 01/30/21 [facility] [address] [place], [place] [address] Allergies, Adverse Reactions, Alerts [...] 23-valent vaccine 5 07/31/10 Recorded 1Location History: [place], [place] 2Admin Note: done @ dr jones office 3Location History: [facility] 4Location History: [facility] 5Location History: [facility] Medications alendronate 70 mg oral tablet [...] Replace Required Details, Route to Pharmacy Electronically, [facility] #[id number]... Start Date: 01/31/20 Status: Ordered folic acid 1 mg oral tablet 1 mg, 1, tablet, By Mouth, Daily, # 30 tablet, Refills 3, Tot. Refills 3, Maintenance, 01/18/20 10:43:00 EDT, Route to Pharmacy Electronically, [facility] #[id number], 170, cm, 12/13/19 13:51:00EST, Height, 56.3, kg, 11/24/19 22:58:00 EST, Dry W... Start Date: 01/18/20 Status: Ordered furosemide 20 mg oral tablet 1, tablet, By Mouth, Daily, PRN, # 90 tablet, Refills 0, Tot. Refills 0, Maintenance, NEEDED FORLEG SWELLING, 04/19/20 15:50:00 EDT, Route to Pharmacy Electronically, [facility] #[id number],170, cm, 12/13/19 13:51:00 EST, Height, 56.3, kg, 0... Start Date: 04/19/20 Status: Ordered gabapentin 300 mg oral capsule 600 mg, 2, capsule, By Mouth, 3 times a day, # 180 capsule, Refills 3, Tot. Refills 3, Maintenance,10/01/20 15:48:00 EST, Route to Pharmacy Electronically, [facility] #[id number], 170, cm, 12/13/19 13:51:00 EST, Height, 56.3, kg, 11/24/19 22:58:... Start Date: 10/01/20 Status: Ordered gabapentin 300 mg oral capsule See Instructions, TAKE 2 CAPSULES BY MOUTH three times per day, # 180 capsule, Refills 1, Instructions Replace Required Details, Route to Pharmacy Electronically, [facility] #[id number], 170, cm, 12/13/19 13:51:00 EST, Height, 56.3, [...] 02/03/21 12:04:00 EDT, 01/20/21 12:04:00 EDT, Tablet, [facility] #[id number], Partial fill upon patient request if the prescription... Start Date: 01/20/21 Stop Date: 02/03/21 Status: Ordered Metoprolol Succinate ER 25 mg oral tablet, extended release 1 tablet = 25 mg, By Mouth, Daily, # 90 tablet, 1 Refills, Maintenance, 01/29/20 10:50:00 EDT, XL Tablet, [facility] #[id number], 170, cm, 12/13/19 13:51:00 EST, Height, 56.3, [...] 3 Refills, Maintenance, 11/21/20 10:53:00 EST, Tablet, [facility] #[id number], 170, cm, 10/02/20 10:06:00 EST, Height, 56.3, [...] 6 Refills, Maintenance, 06/17/20 16:11:00 EDT, Aerosol, [facility] #[id number], 170, cm, 12/13/19 13:51:00 EST, Height, 56.3, kg, 11/24/19 22:58:00 EST, Dry Weight Start Date: 06/17/20 Stop Date: 01/13/21 Status: Ordered Ventolin HFA 108 mcg/inh inhalation aerosol with adapter 2 puffs, Inhalation, 4 times a day, PRN for wheezing, # 1 each, 0 Refills, Maintenance, 10/02/20 10:55:00 EST, Aerosol, [facility]/pharmacy #[id number], 170, cm, 10/02/20 10:06:00 EST, Height, 56.3, kg, 11/24/19 22:58:00 EST, Dry Weight Start Date: 10/02/20 Status: Ordered Vitamin B1 100 mg oral tablet 1, tablet, By Mouth, Daily, # 30 tablet, Refills 7, Tot. Refills 0, Acute, 01/06/21 14:35:00 EST, Route to Pharmacy Electronically, [facility] #[id number], 170, cm, 10/02/20 10:06:00 EST, Height, 56.3, kg, 11/24/19 22:58:00 EST, Dry Weight Start Date: 01/06/21 Status: Ordered Zofran 4 mg oral tablet 1 tablet = 4 mg, By Mouth, 3 times a day, PRN nausea, # 30 tablet, 0 Refills, Maintenance, :17:00 EDT, Tablet, [facility] #[id number], 170, cm, 12/13/19 13:51:00 EST, Height, 56.3, [...] Smoking Status Current every day maria elena epnn; Tobacco use times per day: smokes about 1.5 packs per day; entered on: 04/16/16 Sex
--- OUTSIDE RECORDS SUMMARY | 2023-08-21 08:41 | XMS_ITS | Continuity of Care Document ---
Author Name Unknown Organization [facility] Address [address] [place] [address]- Care Team Providers Care [employer] Name Role Phone Graciela Nunez MD Primary Care Physician Encounter [facility] Date(s): 02/15/23 - 03/17/23 [facility] [address] [place], [place] [address] Allergies, Adverse Reactions, [...] 23-valent vaccine 6 07/31/10 Recorded 1Result Comment: [id number] given w/out incident 2Location History: [place], [place] 3Admin Note: done @ dr jones office 4Location History: [facility] 5Location History: [facility] 6Location History: [facility] Medications aspirin 81 mg oral [...] 02/11/23 12:27:00 EDT, Route to Pharmacy Electronically, [facility]/pharmacy #[id number], Partial fill upon patient request if the prescription is... Start Date: 02/11/23 Stop Date: 03/25/23 Status: Ordered busPIRone 10 mg oral tablet See Instructions, BEING TAPERED OFF, DECREASE BY 10MG EVERY DAY UNTIL DISCONTINUATION, # 60 tablet,Refills 1, Maintenance, 11/12/22 17:44:00 EST, Instructions Replace Required Details, Route to Pharmacy Electronically, [facility] [id number], 170, cm, 02/04... Start Date: 11/12/22 Status: Ordered calcium-vitamin D 600 mg-400 intl units oral tablet 1 tablet, By Mouth, 2 times a day, # 60 tablet, 6 Refills, Maintenance, 05/15/22 16:21:00 EDT, Tablet, [facility] #[id number], Partial fill upon patient request if the prescription is for a schedule II opioid drug., 1 tablet By Mouth 2 times a da... Start Date: 05/15/22 Status: Ordered clonazePAM 1 mg oral tablet See Instructions, take 1/2 tab by daily, # 10 tablet, 0 Refills, Maintenance, 03/01/23 12:06:00 EDT, Tablet, [facility]/pharmacy #[id number], Partial fill upon patient request if the prescription is for a schedule II opioid drug., 170, cm, 02/04/22 11:19:00 EDT, H... Start Date: 03/01/23 Status: Ordered Colace sodium 100 mg oral capsule 100 mg, 1, capsule, By Mouth, 2 times a day, PRN, # 180 capsule, Refills 1, Tot. Refills 1, Maintenance, for constipation, 06/23/22 10:20:00 EDT, Route to Pharmacy Electronically, [facility]/pharmacy #[id number],prefers gel formulation, 170, cm, 02/04/22 11:19:00... Start Date: 06/23/22 Status: Ordered Flonase 50 mcg/inh nasal spray 1 sprays, Nares, Both, Daily in AM, # 16 Gm, 4 Refills, Maintenance, 12/03/21 12:34:00 EST, [place], [facility] #[id number], Partial fill upon patient request if the prescription is for a scheduleII opioid drug., 1 sprays Nares, Both Daily in AM,... Start Date: 12/03/21 Status: Ordered folic acid 1 mg oral tablet 1 mg, 1, tablet, By Mouth, Daily, # 30 tablet, Refills 11, Tot. Refills 11, Maintenance, 12/03/22 9:01:00 EST, [id number], [facility], cm, 02/04/22 11:19:00 [...] Replace Required Details, Route to Pharmacy Electronically, [facility] [id number], 170, cm, 02/04/22 11:19:0... Start Date: 02/15/23 Status: Ordered Hair, Skin & Nails 5 mg oral capsule 1 capsule = 5 mg, By Mouth, Daily, # 90 capsule, 3 Refills, Maintenance, 02/19/22 12:29:00 EDT, [facility] #[id number], Partial fill upon patient request if the [...] 5 Refills, Maintenance, 03/19/22 14:45:00 EDT, Syrup, [facility] #[id number], Partial fill upon patient requestif the prescription [...] 12/03/22 8:52:00 EST, Route to Pharmacy Electronically, [facility]/pharmacy #[id number], Partial fill upon patient request [...] tablet, 3 Refills, Maintenance, 02/02/23 13:02:00 EDT, [facility]/pharmacy #[id number], 170, cm, 02/04/22 11:19:00 EDT, Height, 44.1, kg,... Start Date: 02/02/23 Status: Ordered Tylenol 8 HR Arthritis Pain 650 mg oral tablet, extended release 1 tablet = 650 mg, By Mouth, Every 8 hours, PRN Pain , Moderate, # 100 tablet, 1 Refills, Maintenance, 02/26/21 15:47:00 EDT, ER Tablet, [facility] #[id number], Partial fill upon patient requestif the prescription [...] Personnel Name: Milena ORTIZ, Morgan Hancock Position: [facility] Renal MD Member Role: Lifetime Consulting Physician Address: Address: [address] [place] [address] [address] [place] [address]- Name: Graciela Nunez MD Position: [facility] Primary Care Physician Member Role: PCP Address: Address: [address] [place] [address]- Name: Luisa Storey RN Position: [facility] RN Member Role: Primary Care Nurse Care Team Related Persons Name: INDIA LAZARUS Address: [place] [address] Name: KAVON NICOLE Address: home [address] [place] [address] Name: PT, [facility]
--- OUTSIDE RECORDS SUMMARY | 2023-08-21 08:41 | XMS_ITS | Continuity of Care Document ---
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 Name Role Phone Graciela Nunez MD Primary Care Physician [phone] Encounter [facility] Date(s): 04/06/22 - 05/06/22 [facility] [address] [place], [place] [address] Allergies, Adverse Reactions, Alerts Substance [...] 23-valent vaccine 6 07/31/10 Recorded 1Result Comment: [id number] given w/out incident 2Location History: [place], [place] 3Admin Note: done @ dr jones office 4Location History: [facility] 5Location History: [facility] [...] 3 Refills, Maintenance, 04/09/22 9:54:00 EDT, Tablet, [facility] #[id number], Partial fill upon patient request if the prescription is for a schedule II opioid drug., 1 tablet By Mouth Daily, 170, cm, 02/04... Start Date: 04/09/22 Status: Ordered busPIRone 10 mg oral tablet 10 mg, 1, tablet, By Mouth, 3 times a day, # 90 tablet, Refills 1, Tot. Refills 1, Maintenance, 04/28/22 16:25:00 EDT, Route to Pharmacy Electronically, [facility] #[id number], new dosage, 170, cm, 02/04/22 11:19:00 EDT, Height, 44.1, kg, ... Start Date: 04/28/22 Status: Ordered calcium (as carbonate)-vitamin D 500 mg-400 intl units oral tablet 1 tablet, By Mouth, 2 times a day, calcium 500/vitamin d 400 iu twice daily, # 60 tablet, 6 Refills, Maintenance, 02/11/22 10:15:00 EDT, Tablet, [facility] #[id number], Partial fill upon patientrequest if the prescription is for a schedule II op... Start Date: 02/11/22 Status: Ordered Colace sodium 100 mg oral capsule 100 mg, 1, capsule, By Mouth, 2 times a day, PRN, # 60 capsule, Refills 5, Tot. Refills 5, Maintenance, for constipation, 02/04/22 11:08:00 EDT, Route to Pharmacy Electronically, [facility]#[id number], prefers gel formulation, 170, cm, 02/04/22... Start Date: 02/04/22 Status: Ordered diltiazem 180 mg/24 hours oral capsule, extended release 180 mg, 1, capsule, By Mouth, Daily, # 30 capsule, Refills 0, Tot. Refills 0, Maintenance, 11/06/2209:09:00 EST, Route to Pharmacy Electronically, [facility] #[id number], Partial fill upon patient request if the prescription is for a schedule II... Start Date: 11/06/21 Status: Ordered Flonase 50 mcg/inh nasal spray 1 sprays, Nares, Both, Daily in AM, # 16 Gm, 4 Refills, Maintenance, 12/03/21 12:34:00 EST, [place], [facility] #[id number], Partial fill upon patient request if the prescription is for a scheduleII opioid drug., 1 sprays Nares, Both Daily in AM,... Start Date: 12/03/21 Status: Ordered folic acid 1 mg oral tablet 1 mg, 1, tablet, By Mouth, Daily, # 30 tablet, Refills 11, Tot. Refills 11, Maintenance, 02/25/22 16:15:00 EDT, Route to Pharmacy Electronically, [facility] #[id number], 170, cm, 02/04/22 11:19:00 EDT, Height, 44.1, [...] 02/09/22 15:13:00 EDT, Route to Pharmacy Electronically, [facility] #[id number], 170, cm, 02/04/22 11:19:00 EDT, Height, 44.1, kg, 12/20/21 16:05:00 EST,... Start Date: 02/09/22 Status: Ordered Hair, Skin & Nails 5 mg oral capsule 1 capsule = 5 mg, By Mouth, Daily, # 90 capsule, 3 Refills, Maintenance, 02/19/22 12:29:00 EDT, [facility] #[id number], Partial fill upon patient request if the prescription is for a schedule IIopioid drug., 1 capsule By Mouth Daily, 170, cm, 04... Start Date: 02/19/22 Status: Ordered lactulose 10 gm/15 ml oral syrup 15 mL = 10 Gm, By Mouth, Every 72 hours, PRN as needed for constipation, # 300 mL, 5 Refills, Maintenance, 03/19/22 14:45:00 EDT, Syrup, [facility] #[id number], Partial fill upon patient requestif the prescription is for a schedule II opioid ivonne... Start Date: 03/19/22 Status: Ordered LORazepam 0.5 mg oral tablet 1 tablet = 0.5 mg, By Mouth, 3 times a day, # 60 tablet, 3 Refills, Maintenance, 04/28/22 16:24:00 EDT, Tablet, [facility] #[id number], Partial fill upon patient request if the [...] 10/22/21 15:09:00 EST, Route to Pharmacy Electronically, [facility] #[id number] Tablet, Partial fill upon patient request... Start [...] Refills, Maintenance, 02/26/21 15:47:00 EDT, ER Tablet, [facility] #[id number], Partial fill upon patient requestif the prescription [...] 11 Refills, Maintenance, 12/02/21 10:55:00 EST, Capsule, [facility] #[id number], Partial fill upon patient request if the [...]
--- OUTSIDE RECORDS SUMMARY | 2023-08-21 08:41 | XMS_ITS | Continuity of Care Document ---
Author Name Unknown Organization [facility] Address [address] [place] [address]- Care Team Providers Care Manager International Name Role Phone Graciela Nunez MD Primary Care Physician Encounter [facility] Date(s): 11/06/21 - 12/06/21 [facility] [address] [place], [place] [address] Allergies, Adverse Reactions, Alerts Substance [...] 23-valent vaccine 6 07/31/10 Recorded 1Result Comment: [id number] given w/out incident 2Location History: [place], [place] 3Admin Note: done @ dr jones office 4Location History: [facility] 5Location History: [facility] 6Location History: [facility] Medications aspirin 81 mg oral [...] 10/22/21 15:09:00 EST, Route to Pharmacy Electronically, [facility]#[id number], Partial fill upon patient request if the pr... Start Date: 10/22/21 Status: Ordered diltiazem 180 mg/24 hours oral capsule, extended release 180 mg, 1, capsule, By Mouth, Daily, # 30 capsule, Refills 0, Tot. Refills 0, Maintenance, 11/06/2209:09:00 EST, Route to Pharmacy Electronically, [facility] #[id number], Partial fill upon patient request if the [...] Gm, 4 Refills, Maintenance, 12/03/21 12:34:00 EST, [place], [facility] #[id number], Partial fill upon patient request if the prescription is for a scheduleII opioid drug., 1 sprays Nares, Both Daily in AM,... Start Date: 12/03/21 Status: Ordered folic acid 1 mg oral tablet 1 mg, 1, tablet, By Mouth, Daily, # 30 tablet, Refills 5, Tot. Refills 5, Maintenance, 01/31/21 16:35:00 EDT, Route to Pharmacy Electronically, [facility] #[id number], 170, cm, 10/02/20 10:06:00EST, Height, 56.3, kg, [...] 08/26/21 10:50:00 EDT, Route to Pharmacy Electronically, [facility] #[id number], 162.56, cm, 08/22/21 2:36:00 EDT, Height, 52.65, kg, 08/22/21 2:36:00 EDT... Start Date: 08/26/21 Status: Ordered LORazepam 0.5 mg oral tablet 1 tablet = 0.5 mg, By Mouth, 2 times a day, PRN as needed for anxiety, # 28 tablet, 1 Refills, Maintenance, 12/02/21 10:54:00 EST, [facility] #[id number], 173, cm, 11/06/21 7:58:00 EST, Height, 46.2, kg, 10/29/21 15:33:00 EST, Dry Weight Start Date: 12/02/21 Status: Ordered MiraLax oral powder for reconstitution = 17 Gm, By Mouth, Daily, PRN Constipation, dissolve in water before taking, # 527 Gm, 0 Refills, Maintenance, 10/22/21 15:11:00 EST, REC Powder, [facility] #[id number], Partial fill upon patient request if the prescription is for a schedule II o... Start Date: 10/22/21 Status: Ordered multivitamin Multiple Vitamins oral tablet 1 tablet, By Mouth, Daily, # 30 tablet, 11 Refills, Maintenance, 11/26/21 13:34:00 EST, Tablet, [facility] #[id number], Partial fill upon patient request if the [...] 3 Refills, Maintenance, 03/13/21 13:26:00 EDT, Tablet, [facility] #[id number], 170, cm, 10/02/20 10:06:00 EST, Height, 56.3, kg, 11/24/19 22:58:00 EST, Dry Weight Start Date: 03/13/21 Status: Ordered Senna 8.6 mg oral tablet 17.2 mg, 2, tablet, By Mouth, Daily at bedtime, PRN, # 100 tablet, Refills 0, Tot. Refills 0, Maintenance, for constipation, 10/22/21 15:09:00 EST, Route to Pharmacy Electronically, [facility] #[id number] Tablet, Partial fill upon patient request... Start [...] 12/10/21 8:43:00 EST, 12/03/21 8:43:00 EST, Tablet, [facility] #[id number], Partial fill upon patient request if the prescription is for... Start Date: 12/03/21 Stop Date: 12/10/21 Status: Ordered Tylenol 8 HR Arthritis Pain 650 mg oral tablet, extended release 1 tablet = 650 mg, By Mouth, Every 8 hours, PRN Pain , Moderate, # 100 tablet, 1 Refills, Maintenance, 02/26/21 15:47:00 EDT, ER Tablet, [facility] #[id number], Partial fill upon patient requestif the prescription [...] 11 Refills, Maintenance, 12/02/21 10:55:00 EST, Capsule, [facility] #[id number], Partial fill upon patient request if the [...]
--- OUTSIDE RECORDS SUMMARY | 2023-08-21 08:41 | XMS_ITS | Continuity of Care Document ---
Author Name Unknown Organization [facility] Address [address] [place] [address]- Care Team Providers Care Product Development Ecologist Name Role Phone Graciela Nunez MD Primary Care Physician [place] [facility] Date(s): 09/08/22 - 10/08/22 [facility] [address] [place], [place] [address] Allergies, Adverse Reactions, Alerts Substance [...] 23-valent vaccine 6 07/31/10 Recorded 1Result Comment: [id number] given w/out incident 2Location History: [place], [place] 3Admin Note: done @ dr jones office 4Location History: [facility] 5Location History: [facility] 6Location History: [facility] Medications aspirin 81 mg oral [...] 3 Refills, Maintenance, 04/09/22 9:54:00 EDT, Tablet, [facility] #[id number], Partial fill upon patient request if the prescription is for a schedule II opioid drug., 1 tablet By Mouth Daily, 170, cm, 02/04... Start Date: 04/09/22 Status: Ordered busPIRone 10 mg oral tablet 10 mg, 1, tablet, By Mouth, 3 times a day, # 90 tablet, Refills 3, Tot. Refills 3, Maintenance, 07/30/22 13:44:00 EDT, Route to Pharmacy Electronically, [facility]/pharmacy #[id number], new dosage, 170, cm, 02/04/22 11:19:00 EDT, Height, 44.1, kg, 12/20/21 16:05:0... Start Date: 07/30/22 Status: Ordered calcium (as carbonate)-vitamin D 500 mg-400 intl units oral tablet 1 tablet, By Mouth, 2 times a day, calcium 500/vitamin d 400 iu twice daily, # 60 tablet, 6 Refills, Maintenance, 02/11/22 10:15:00 EDT, Tablet, [facility] #[id number], Partial fill upon patientrequest if the prescription is for a schedule II op... Start Date: 02/11/22 Status: Ordered calcium-vitamin D 600 mg-400 intl units oral tablet 1 tablet, By Mouth, 2 times a day, # 60 tablet, 6 Refills, Maintenance, 05/15/22 16:21:00 EDT, Tablet, [facility] #[id number], Partial fill upon patient request if the prescription is for a schedule II opioid drug., 1 tablet By Mouth 2 times a da... Start Date: 05/15/22 Status: Ordered Colace sodium 100 mg oral capsule 100 mg, 1, capsule, By Mouth, 2 times a day, PRN, # 180 capsule, Refills 1, Tot. Refills 1, Maintenance, for constipation, 06/23/22 10:20:00 EDT, Route to Pharmacy Electronically, [facility]/pharmacy #[id number],prefers gel formulation, 170, cm, 02/04/22 11:19:00... Start Date: 06/23/22 Status: Ordered diltiazem 180 mg/24 hours oral capsule, extended release 180 mg, 1, capsule, By Mouth, Daily, # 30 capsule, Refills 0, Tot. Refills 0, Maintenance, 11/06/2209:09:00 EST, Route to Pharmacy Electronically, [facility] #[id number], Partial fill upon patient request if the prescription is for a schedule II... Start Date: 11/06/21 Status: Ordered Flonase 50 mcg/inh nasal spray 1 sprays, Nares, Both, Daily in AM, # 16 Gm, 4 Refills, Maintenance, 12/03/21 12:34:00 EST, [place], [facility] #[id number], Partial fill upon patient request if the prescription is for a scheduleII opioid drug., 1 sprays Nares, Both Daily in AM,... Start Date: 12/03/21 Status: Ordered folic acid 1 mg oral tablet 1 mg, 1, tablet, By Mouth, Daily, # 30 tablet, Refills 11, Tot. Refills 11, Maintenance, 02/25/22 16:15:00 EDT, Route to Pharmacy Electronically, [facility] #[id number], 170, cm, 02/04/22 11:19:00 EDT, Height, 44.1, [...] 08/13/22 13:03:00 EDT, Route to Pharmacy Electronically, [facility]/pharmacy #[id number], 170, cm, 02/04/22 11:19:00 EDT, Height, 44.1, kg, 12/20/21 16:05:00 EST, Dry Weight Start Date: 08/13/22 Status: Ordered Hair, Skin & Nails 5 mg oral capsule 1 capsule = 5 mg, By Mouth, Daily, # 90 capsule, 3 Refills, Maintenance, 02/19/22 12:29:00 EDT, [facility] #[id number], Partial fill upon patient request if the prescription is for a schedule IIopioid drug., 1 capsule By Mouth Daily, 170, cm, 04... Start Date: 02/19/22 Status: Ordered hydrOXYzine hydrochloride 10 mg oral tablet 1-2 TABLETS, By Mouth, 2 times a day, PRN NEEDED FOR ANXIETY, # 60 tablet, 5 Refills, Maintenance, 09/22/22 16:15:00 EST, [facility]/pharmacy #[id number], 170, cm, 02/04/22 11:19:00 EDT, Height, 44.1, kg, 12/20/21 16:05:00 EST, Dry Weight Start Date: 09/22/22 Status: Ordered lactulose 10 gm/15 ml oral syrup 15 mL = 10 Gm, By Mouth, Every 72 hours, PRN as needed for constipation, # 300 mL, 5 Refills, Maintenance, 03/19/22 14:45:00 EDT, Syrup, [facility] #[id number], Partial fill upon patient requestif the prescription is for a schedule II opioid ivonne... Start Date: 03/19/22 Status: Ordered LORazepam 0.5 mg oral tablet 1 tablet = 0.5 mg, By Mouth, 3 times a day, # 60 tablet, 3 Refills, Maintenance, 07/08/22 17:11:00 EDT, Tablet, [facility]/pharmacy #[id number], Partial fill upon patient request if the prescription is for a schedule II opioid drug., 170, cm, 02/04/22 11:19:00 EDT... Start Date: 07/08/22 Status: Ordered LORazepam 0.5 mg oral tablet 1 tablet = 0.5 mg, By Mouth, 3 times a day, # 60 tablet, 3 Refills, Maintenance, 09/18/22 16:44:00 EST, Tablet, [facility]/pharmacy #[id number], Partial fill upon [...] 10/22/21 15:09:00 EST, Route to Pharmacy Electronically, [facility] #[id number] Tablet, Partial fill upon patient request... Start [...] 10/28/22 15:13:00 EST, 09/30/22 15:13:00 EST, Tablet, [facility]/pharmacy #[id number], Partial fill upon patient request if the [...] Refills, Maintenance, 02/26/21 15:47:00 EDT, ER Tablet, [facility] #[id number], Partial fill upon patient requestif the prescription [...] 11 Refills, Maintenance, 12/02/21 10:55:00 EST, Capsule, [facility] #[id number], Partial fill upon patient request if the [...] Team Personnel Name: Angie Farmer RN Position: [facility] RN Member Role: Primary Care Nurse Name: Milena ORTIZ, Morgan Hancock Position: [facility] Renal MD Member Role: Lifetime Consulting Physician Address: Address: [address] [place] [address], [address] [place] [address] Name: Graciela Nunez MD Position: [facility] Primary Care Physician Member Role: PCP Address: Address: [address] [place] [address]- Name: Luisa Storey RN Position: S RN Member Role: Primary Care Nurse Care Team Related Persons Name: LAZARUS OSBORNE Address: [place] [address] Name: KAVON NICOLE Address: [address] [place] [address] Name: , [facility]
--- OUTSIDE RECORDS SUMMARY | 2023-08-21 08:41 | XMS_ITS | Continuity of Care Document ---
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 Name Role Phone Graciela Nunez MD Primary Care Physician Encounter [facility] Date(s): 08/06/20 - 09/05/20 [facility] [address] [facility] [place] [address]- Attending Physician: Admtr, [id number] Admitting Physician: Admtr, ArElvira Referring Physician: Admtr, [id number] Allergies, Adverse Reactions, [...] 23-valent vaccine 5 07/31/10 Recorded 1Location History: [place], [place] 2Admin Note: done @ dr jones office 3Location History: [facility] 4Location History: [facility] 5Location History: [facility] Medications alendronate 70 mg oral tablet [...] Replace Required Details, Route to Pharmacy Electronically, [facility] #[id number]... Start Date: 01/31/20 Status: Ordered folic acid 1 mg oral tablet 1 mg, 1, tablet, By Mouth, Daily, # 30 tablet, Refills 3, Tot. Refills 3, Maintenance, 01/18/20 10:43:00 EDT, Route to Pharmacy Electronically, [facility] #[id number], 170, cm, 12/13/19 13:51:00EST, Height, 56.3, kg, 11/24/19 22:58:00 EST, Dry W... Start Date: 01/18/20 Status: Ordered furosemide 20 mg oral tablet 1, tablet, By Mouth, Daily, PRN, # 90 tablet, Refills 0, Tot. Refills 0, Maintenance, NEEDED FORLEG SWELLING, 04/19/20 15:50:00 EDT, Route to Pharmacy Electronically, [facility] #[id number],170, cm, 12/13/19 13:51:00 EST, Height, 56.3, kg, 0... Start Date: 04/19/20 Status: Ordered gabapentin 300 mg oral capsule See Instructions, TAKE 2 CAPSULES BY MOUTH three times per day, # 180 capsule, Refills 1, Instructions Replace Required Details, Route to Pharmacy Electronically, [facility] #[id number], 170, cm, 12/13/19 13:51:00 EST, Height, 56.3, [...] 0 Refills, Maintenance, 07/29/20 10:57:00 EDT, Tablet, [facility] #[id number], 170, cm, 12/13/19 13:51:00 EST,Height, 56.3, kg, 11/24/19 22:58:00 EST, Dry Weight Start Date: 07/29/20 Status: Ordered Metoprolol Succinate ER 25 mg oral tablet, extended release 1 tablet = 25 mg, By Mouth, Daily, # 90 tablet, 1 Refills, Maintenance, 01/29/20 10:50:00 EDT, XL Tablet, [facility] #[id number], 170, cm, 12/13/19 13:51:00 EST, Height, 56.3, [...] 3 Refills, Maintenance, 08/23/20 12:07:00 EDT, Tablet, [facility] #[id number], 170, cm, 12/13/19 13:51:00 EST, Height, 56.3, [...] 6 Refills, Maintenance, 06/17/20 16:11:00 EDT, Aerosol, [facility][id number], 170, cm, 12/13/19 13:51:00 EST, Height, 56.3, kg, 11/24/19 22:58:00 EST, Dry Weight Start Date: 06/17/20 Stop Date: 01/13/21 Status: Ordered Vitamin B1 100 mg oral tablet 1, tablet, By Mouth, Daily, # 30 tablet, Refills 11, Tot. Refills 0, Acute, 12/18/19 14:10:00 EST, Route to Pharmacy Electronically, [facility] #[id number], 170, cm, 12/13/19 13:51:00 EST, Height, 56.3, kg, 11/24/19 22:58:00 EST, Dry Weight Start Date: 12/18/19 Status: Ordered Zofran 4 mg oral tablet 1 tablet = 4 mg, By Mouth, 3 times a day, PRN nausea, # 30 tablet, 0 Refills, Maintenance, :17:00 EDT, Tablet, [facility] #[id number], 170, cm, 12/13/19 13:51:00 EST, Height, 56.3, [...]
--- OUTSIDE RECORDS SUMMARY | 2023-08-21 08:41 | XMS_ITS | Continuity of Care Document ---
Author Name Unknown Organization [facility] Address [address] [place] [address]- Care Team Providers Care Senior Electronics Design Engineer Name Role Phone Graciela Nunez MD Primary Care Physician Encounter [facility] Date(s): 04/09/23 - 05/09/23 [facility] [address] [place], [place] [address] Allergies, Adverse Reactions, Alerts Substance [...] 23-valent vaccine 6 07/31/10 Recorded 1Result Comment: [id number] given w/out incident 2Location History: [place], [place] 3Admin Note: done @ dr jones office 4Location History: [facility] 5Location History: [facility] 6Location History: [facility] Medications aspirin 81 mg [...] Replace Required Details, Route to Pharmacy Electronically, [id number], 170, cm, ... Start Date: 03/26/23 Status: Ordered baclofen 10 mg oral tablet 10 mg, 1, tablet, By Mouth, 2 times a day, PRN, # 28 tablet, Refills 2, Tot. Refills 2, Maintenance, Pain , Moderate, 02/11/23 12:27:00 EDT, Route to Pharmacy Electronically, [facility]/pharmacy #[id number], Partial fill upon patient request if the [...] A DAY NEEDED FOR CONSTIPATION. FILLED AT [facility] Start Date: 03/18/23 Status: Ordered folic acid 1 mg oral tablet 1 mg, 1, tablet, By Mouth, Daily, # 30 tablet, Refills 11, Tot. Refills 11, Maintenance, 12/03/22 9:01:00 EST, Route to Pharmacy Electronically, [facility] #[id number], 170, cm, 02/04/22 11:19:00 EDT, Height, 44.1, kg, 12/20/21 16:05:00 EST, Dry Weight Start Date: 12/03/22 Status: Ordered gabapentin 300 mg oral capsule 2, capsule, By Mouth, 3 times a day, # 180 capsule, Refills 5, Tot. Refills 5, Maintenance, 08/13/22 13:03:00 EDT, Route to Pharmacy Electronically, [facility]/pharmacy #[id number], 170, cm, 02/04/22 11:19:00 EDT, Height, 44.1, kg, 12/20/21 16:05:00 EST, Dry Weight Start Date: 08/13/22 Status: Ordered hydrOXYzine hydrochloride 10 mg oral tablet 3 tablet = 30 mg, By Mouth, 3 times a day, PRN NEEDED FOR ANXIETY, # 270 tablet, 3 Refills, Maintenance, 03/01/23 12:03:00 EDT, [facility]/pharmacy #[id number], 170, cm, 02/04/22 11:19:00 EDT, Height, 44.1, kg, 12/20/21 16:05:00 EST, Dry Weight Start Date: 03/01/23 Status: Ordered LORazepam 0.5 mg oral tablet 1 tablet = 0.5 mg, By Mouth, 2 times a day, PRN as needed for anxiety, for 14 days, fill when due, # 28 tablet, 1 Refills, Acute 06/04/23 9:05:00 EDT, 05/07/23 9:05:00 EDT, Tablet, [facility]/pharmacy #[id number], Partial fill upon patient [...] 3 Refills, Maintenance, 12/16/22 9:12:00 EST, Capsule, [facility]/pharmacy #[id number], Partial fill upon patient [...] 0 Refills, Maintenance, 04/20/23 11:30:00 EDT, Tablet, [facility]/pharmacy #[id number], Partial fill upon patient request if the prescription is for a schedule II opio... Start Date: 04/20/23 Status: Ordered predniSONE 10 mg oral tablet See Instructions, 30 mg daily for 3 days and then 20 mg daily for 3 days and then continue 10 mg daily., # 39 each, 0 Refills, Maintenance, 03/22/23 13:16:00 EDT, Tablet, [facility], Partial fill upon patient request if [...] Personnel Name: Milena ORTIZ, Morgan Hancock Position: [facility] Renal MD Member Role: Lifetime Consulting Physician Address: Address: [address] [place] [address], [address] [place] [address]- Name: Graciela Nunez MD Position: S Physician - Primary Care Member Role: PCP Address: Address: [address] [place] [id number]- [place] Name: Maryam Camara RN Position: S [...] Name: Romeo Reid MD Position: [facility] Renal MD Member Role: Lifetime Consulting Physician Address: Address: [address] [place] [address] [address] [facility] [place] [address]- [place] Name: Olga Valladares RN Position: S RN Member Role: Primary Care Nurse Name: Ruby Alexandre RN Position: S RN Member Role: Primary Care Nurse Address: Address: [address] [place] [address]- Name: Celso Lawson MD Position: [facility] Renal MD Member Role: Lifetime Consulting Physician Address: Address: [address] [place] [address] [facility] [place] [address]- Name: Chloe Fisher LPN Position: S RN Member Role: Primary Care Nurse Care Team Related Persons Name: INDIA LAZARUS Address: [place] [address] Name: KAVON NICOLE Address: [address] [place] [address] Name: PT, STATES NONE
--- OUTSIDE RECORDS SUMMARY | 2023-08-21 08:41 | XMS_ITS | Continuity of Care Document ---
Author Name Unknown Organization [facility] Address [address] [place] [address]- Care Team Providers Care Editorial Assistant Name Role Phone Mayra ORTIZ, Graciela Lares Primary Care Physician [phone] Encounter [facility] Date(s): 10/17/20 - 11/16/20 [facility] [address] [place], [place] [address] Allergies, Adverse Reactions, Alerts Substance [...] 23-valent vaccine 5 07/31/10 Recorded 1Location History: [place], [place] 2Admin Note: done @ dr jones office 3Location History: [facility] 4Location History: [facility] [...] Replace Required Details, Route to Pharmacy Electronically, [facility] #[id number]... Start Date: 01/31/20 Status: Ordered folic acid 1 mg oral tablet 1 mg, 1, tablet, By Mouth, Daily, # 30 tablet, Refills 3, Tot. Refills 3, Maintenance, 01/18/20 10:43:00 EDT, Route to Pharmacy Electronically, [facility] #[id number], 170, cm, 12/13/19 13:51:00EST, Height, 56.3, kg, 11/24/19 22:58:00 EST, Dry W... Start Date: 01/18/20 Status: Ordered furosemide 20 mg oral tablet 1, tablet, By Mouth, Daily, PRN, # 90 tablet, Refills 0, Tot. Refills 0, Maintenance, NEEDED FORLEG SWELLING, 04/19/20 15:50:00 EDT, Route to Pharmacy Electronically, [facility] #[id number],170, cm, 12/13/19 13:51:00 EST, Height, 56.3, kg, 0... Start Date: 04/19/20 Status: Ordered gabapentin 300 mg oral capsule 600 mg, 2, capsule, By Mouth, 3 times a day, # 180 capsule, Refills 3, Tot. Refills 3, Maintenance,10/01/20 15:48:00 EST, Route to Pharmacy Electronically, [facility] #[id number], 170, cm, 12/13/19 13:51:00 EST, Height, 56.3, kg, 11/24/19 22:58:... Start Date: 10/01/20 Status: Ordered gabapentin 300 mg oral capsule See Instructions, TAKE 2 CAPSULES BY MOUTH three times per day, # 180 capsule, Refills 1, Instructions Replace Required Details, Route to Pharmacy Electronically, [facility] #[id number], 170, cm, 12/13/19 13:51:00 EST, Height, 56.3, [...] Refills, Maintenance, 01/29/20 10:50:00 EDT, XL Tablet, [facility] #[id number], 170, cm, 12/13/19 13:51:00 EST, Height, 56.3, [...] 3 Refills, Maintenance, 08/23/20 12:07:00 EDT, Tablet, [facility] #[id number], 170, cm, 12/13/19 13:51:00 EST, Height, 56.3, [...] 6 Refills, Maintenance, 06/17/20 16:11:00 EDT, Aerosol, [facility] #[id number], 170, cm, 12/13/19 13:51:00 EST, Height, 56.3, kg, 11/24/19 22:58:00 EST, Dry Weight Start Date: 06/17/20 Stop Date: 01/13/21 Status: Ordered Ventolin HFA 108 mcg/inh inhalation aerosol with adapter 2 puffs, Inhalation, 4 times a day, PRN for wheezing, # 1 each, 0 Refills, Maintenance, 10/02/20 10:55:00 EST, Aerosol, [facility]/pharmacy #[id number], 170, cm, 10/02/20 10:06:00 EST, Height, 56.3, kg, 11/24/19 22:58:00 EST, Dry Weight Start Date: 10/02/20 Status: Ordered Vitamin B1 100 mg oral tablet 1, tablet, By Mouth, Daily, # 30 tablet, Refills 11, Tot. Refills 0, Acute, 12/18/19 14:10:00 EST, Route to Pharmacy Electronically, [facility] #[id number], 170, cm, 12/13/19 13:51:00 EST, Height, 56.3, kg, 11/24/19 22:58:00 EST, Dry Weight Start Date: 12/18/19 Status: Ordered Zofran 4 mg oral tablet 1 tablet = 4 mg, By Mouth, 3 times a day, PRN nausea, # 30 tablet, 0 Refills, Maintenance, :17:00 EDT, Tablet, [facility] #[id number], 170, cm, 12/13/19 13:51:00 EST, Height, 56.3, [...]
--- OUTSIDE RECORDS SUMMARY | 2023-08-21 08:41 | XMS_ITS | Continuity of Care Document ---
Author Name Unknown Organization [facility] Address [address] [place] [address]- Care Team Providers Care Math Coach Name Role Phone Graciela Nunez MD Primary Care Physician Encounter [facility] Date(s): 07/02/21 - 08/01/21 [facility] [address] [place], [place] [address] Allergies, Adverse Reactions, Alerts Substance Reaction Severity [...] 23-valent vaccine 5 07/31/10 Recorded 1Location History: [place], [place] 2Admin Note: done @ dr jones office 3Location History: [facility] 4Location History: [facility] 5Location History: [facility] Medications alendronate 70 mg [...] Replace Required Details, Route to Pharmacy Electronically, [facility] #[id number]... Start Date: 01/31/20 Status: Ordered folic acid 1 mg oral tablet 1 mg, 1, tablet, By Mouth, Daily, # 30 tablet, Refills 5, Tot. Refills 5, Maintenance, 01/31/21 16:35:00 EDT, Route to Pharmacy Electronically, [facility] #[id number], 170, cm, 10/02/20 10:06:00EST, Height, 56.3, kg, 11/24/19 22:58:00 EST, Dry W... Start Date: 01/31/21 Status: Ordered furosemide 20 mg oral tablet 1, tablet, By Mouth, Daily, PRN, # 90 tablet, Refills 0, Tot. Refills 0, Maintenance, NEEDED FORLEG SWELLING, 04/19/20 15:50:00 EDT, Route to Pharmacy Electronically, [facility] #[id number],170, cm, 12/13/19 13:51:00 EST, Height, 56.3, kg, 0... Start Date: 04/19/20 Status: Ordered gabapentin 300 mg oral capsule 2, capsule, By Mouth, 3 times a day, # 180 capsule, Refills 1, Tot. Refills 1, Maintenance, 07/28/21 9:58:00 EDT, Route to Pharmacy Electronically, [facility] #[id number], 170, cm, 10/02/20 10:06:00 EST, Height, 56.3, [...] tablet, 1 Refills, Maintenance, 07/01/21 22:21:00 EDT, [facility] #[id number], 170, cm, 10/02/20 10:06:00 EST, Height, 56.3, kg, 11/24/19... Start Date: 07/01/21 Status: Ordered LORazepam 0.5 mg oral tablet 1 tablet = 0.5 mg, By Mouth, 2 times a day, # 28 tablet, 2 Refills, Maintenance, 07/16/21 16:58:00 EDT, [facility] #[id number], 170, cm, 10/02/20 10:06:00 EST, Height, 56.3, kg, 11/24/19 22:58:00 EST, Dry Weight Start Date: 07/16/21 Status: Ordered Metoprolol Succinate ER 25 mg oral tablet, extended release 1 tablet = 25 mg, By Mouth, Daily, # 90 tablet, 1 Refills, Maintenance, 01/29/20 10:50:00 EDT, XL Tablet, [facility] #[id number], 170, cm, 12/13/19 13:51:00 EST, Height, 56.3, [...] 3 Refills, Maintenance, 03/13/21 13:26:00 EDT, Tablet, [facility] #61681, 170, cm, 10/02/20 10:06:00 EST, Height, 56.3, [...] 02/18/21 16:23:00 EDT, Route to Pharmacy Electronically, [facility] #[id number], Partial fill upon patient request if... Start Date: 02/18/21 Stop Date: 03/04/21 Status: Ordered Tylenol 8 HR Arthritis Pain 650 mg oral tablet, extended release 1 tablet = 650 mg, By Mouth, Every 8 hours, PRN Pain , Moderate, # 100 tablet, 1 Refills, Maintenance, 02/26/21 15:47:00 EDT, ER Tablet, [facility] #36596, Partial fill upon patient requestif the prescription is for a schedule II opioid ivonne... Start Date: 02/26/21 Status: Ordered Ventolin HFA 108 mcg/inh inhalation aerosol with adapter 2 puffs, Inhalation, 4 times a day, PRN for wheezing, # 18 Gm, 6 Refills, Maintenance, 06/17/20 16:11:00 EDT, Aerosol, [facility] #43490, 170, cm, 12/13/19 13:51:00 EST, Height, 56.3, [...] 01/06/21 14:35:00 EST, Route to Pharmacy Electronically, [facility] #[id number], 170, cm, 10/02/20 10:06:00 EST, Height, 56.3, kg, 11/24/19 22:58:00 EST, Dry Weight Start Date: 01/06/21 Status: Ordered Zofran 4 mg oral tablet 1 tablet = 4 mg, By Mouth, 3 times a day, PRN nausea, # 30 tablet, 0 Refills, Maintenance, :17:00 EDT, Tablet, [facility] #65185, 170, cm, 12/13/19 13:51:00 EST, Height, 56.3, [...]
--- OUTSIDE RECORDS SUMMARY | 2023-08-21 08:41 | XMS_ITS | Continuity of Care Document ---
Author Name Unknown Organization [facility] Address [address] [place] [address]- Care Team Providers Care Medical Record Consultant Name Role Phone Graciela Nunez MD Primary Care Physician [phone] Encounter [facility] Date(s): 08/04/20 - 09/05/20 [facility] [address] [place] [address]- Attending Physician: Meri Clements MD Referring Physician: Graciela Nunez MD Allergies, [...] 23-valent vaccine 5 07/31/10 Recorded 1Location History: [place], [place] 2Admin Note: done @ dr jones office 3Location History: [facility] 4Location History: [facility] 5Location History: [facility] Medications alendronate 70 mg oral [...] Replace Required Details, Route to Pharmacy Electronically, [facility] #036... Start Date: 01/31/20 Status: Ordered folic acid 1 mg oral tablet 1 mg, 1, tablet, By Mouth, Daily, # 30 tablet, Refills 3, Tot. Refills 3, Maintenance, 01/18/20 10:43:00 EDT, Route to Pharmacy Electronically, [facility] #[id number], 170, cm, 12/13/19 13:51:00EST, Height, 56.3, kg, 11/24/19 22:58:00 EST, Dry W... Start Date: 01/18/20 Status: Ordered furosemide 20 mg oral tablet 1, tablet, By Mouth, Daily, PRN, # 90 tablet, Refills 0, Tot. Refills 0, Maintenance, NEEDED FORLEG SWELLING, 04/19/20 15:50:00 EDT, Route to Pharmacy Electronically, [facility] #[id number],170, cm, 12/13/19 13:51:00 EST, Height, 56.3, kg, 0... Start Date: 04/19/20 Status: Ordered gabapentin 300 mg oral capsule See Instructions, TAKE 2 CAPSULES BY MOUTH three times per day, # 180 capsule, Refills 1, Instructions Replace Required Details, Route to Pharmacy Electronically, [facility] #[id number], 170, cm, 12/13/19 13:51:00 EST, Height, 56.3, [...] 0 Refills, Maintenance, 07/29/20 10:57:00 EDT, Tablet, [facility] #[id number], 170, cm, 12/13/19 13:51:00 EST,Height, 56.3, kg, 11/24/19 22:58:00 EST, Dry Weight Start Date: 07/29/20 Status: Ordered Metoprolol Succinate ER 25 mg oral tablet, extended release 1 tablet = 25 mg, By Mouth, Daily, # 90 tablet, 1 Refills, Maintenance, 01/29/20 10:50:00 EDT, XL Tablet, [facility] #[id number], 170, cm, 12/13/19 13:51:00 EST, Height, 56.3, [...] 3 Refills, Maintenance, 08/23/20 12:07:00 EDT, Tablet, [facility] #[id number], 170, cm, 12/13/19 13:51:00 EST, Height, 56.3, [...] 6 Refills, Maintenance, 06/17/20 16:11:00 EDT, Aerosol, [facility] #[id number], 170, cm, 12/13/19 13:51:00 EST, Height, 56.3, kg, 11/24/19 22:58:00 EST, Dry Weight Start Date: 06/17/20 Stop Date: 01/13/21 Status: Ordered Vitamin B1 100 mg oral tablet 1, tablet, By Mouth, Daily, # 30 tablet, Refills 11, Tot. Refills 0, Acute, 12/18/19 14:10:00 EST, Route to Pharmacy Electronically, [facility] #[id number], 170, cm, 12/13/19 13:51:00 EST, Height, 56.3, kg, 11/24/19 22:58:00 EST, Dry Weight Start Date: 12/18/19 Status: Ordered Zofran 4 mg oral tablet 1 tablet = 4 mg, By Mouth, 3 times a day, PRN nausea, # 30 tablet, 0 Refills, Maintenance, :17:00 EDT, Tablet, [facility] #[id number], 170, cm, 12/13/19 13:51:00 EST, Height, 56.3, [...]
--- OUTSIDE RECORDS SUMMARY | 2023-08-21 08:42 | XMS_ITS | Continuity of Care Document ---
Author Name Unknown Organization [facility] Address [address] [place] [address]- Care Team Providers Care Equipment Operator Warehouse Name Role Phone Graciela Nunez MD Primary Care Physician Encounter [facility] Date(s): 08/26/21 - 09/25/21 [facility] [address] [place], [place] [address] Allergies, Adverse Reactions, Alerts Substance [...] 23-valent vaccine 5 07/31/10 Recorded 1Location History: [place], [place] 2Admin Note: done @ dr jones office 3Location History: [facility] 4Location History: [facility] 5Location History: [facility] Medications alendronate 70 mg oral [...] 0 Refills, Maintenance, 09/01/21 15:19:00 EDT, Capsule, [facility] #[id number], Partial fill upon patient request if the prescription i... Start Date: 09/01/21 Stop Date: 09/15/21 Status: Ordered duloxetine 30 mg oral enteric coated capsule 1 capsule = 30 mg, By Mouth, Daily, do not crush or chew, # 30 capsule, 3 Refills, Maintenance, 09/11/21 12:04:00 EST, CR Capsule, [facility] #54413, Partial fill upon patient request if the [...] 01/31/21 16:35:00 EDT, Route to Pharmacy Electronically, [facility] #[id number], 170, cm, 10/02/20 10:06:00EST, Height, 56.3, kg, 11/24/19 22:58:00 EST, Dry W... Start Date: 01/31/21 Status: Ordered furosemide 20 mg oral tablet 1, tablet, By Mouth, Daily, PRN, # 90 tablet, Refills 0, Tot. Refills 0, Maintenance, NEEDED FORLEG SWELLING, 04/19/20 15:50:00 EDT, Route to Pharmacy Electronically, [facility] #70074,170, cm, 12/13/19 13:51:00 EST, Height, 56.3, kg, 0... Start Date: 04/19/20 Status: Ordered gabapentin 300 mg oral capsule 2, capsule, By Mouth, 3 times a day, # 180 capsule, Refills 1, Tot. Refills 1, Maintenance, 08/26/21 10:50:00 EDT, Route to Pharmacy Electronically, [facility] #[id number], 162.56, cm, 08/22/21 2:36:00 EDT, Height, 52.65, [...] tablet, 0 Refills, Maintenance, 09/10/21 16:04:00 EST, [facility] #[id number], 170, cm, 08/30/21 17:40:00 EDT, Height,51.5, kg, 08/30/21 17:40:00 EDT, Dry Weight Start Date: 09/10/21 Status: Ordered Metoprolol Succinate ER 25 mg oral tablet, extended release 1 tablet = 25 mg, By Mouth, Daily, # 90 tablet, 1 Refills, Maintenance, 01/29/20 10:50:00 EDT, XL Tablet, [facility] #31031, 170, cm, 12/13/19 13:51:00 EST, Height, 56.3, kg, 11/24/19 22:58:00 EST, Dry Weight Start Date: 01/29/20 Status: Ordered predniSONE 10 mg oral tablet See Instructions, 4 tabs x 3 days, 3 tabs x 3 days, 2 tabs x 3 days, 1 tab x 3 days, # 30 tablet, 0Refills, Acute 10/11/21 12:03:00 EST, 09/11/21 12:03:00 EST, Tablet, [facility] #[id number], Partial fill upon patient request if the [...] 3 Refills, Maintenance, 03/13/21 13:26:00 EDT, Tablet, [facility] #[id number], 170, cm, 10/02/20 10:06:00 EST, Height, 56.3, [...] Refills, Maintenance, 02/26/21 15:47:00 EDT, ER Tablet, [facility] #[id number], Partial fill upon patient requestif the prescription [...] 01/06/21 14:35:00 EST, Route to Pharmacy Electronically, [facility] #35771, 170, cm, 10/02/20 10:06:00 EST, Height, 56.3, kg, 11/24/19 22:58:00 EST, Dry Weight Start Date: 01/06/21 Status: Ordered Zofran 4 mg oral tablet 1 tablet = 4 mg, By Mouth, 3 times a day, PRN nausea, # 30 tablet, 0 Refills, Maintenance, :17:00 EDT, Tablet, [facility] #[id number], 170, cm, 12/13/19 13:51:00 EST, Height, 56.3, [...]
--- OUTSIDE RECORDS SUMMARY | 2023-08-21 08:42 | XMS_ITS | Continuity of Care Document ---
Author Name Unknown Organization [facility] Address [address] [place] [address]- Care Team Providers Care Cabin Agent Name Role Phone Graciela Nunez MD Primary Care Physician [place] [facility] [place]s): 08/25/21 - 09/24/21 [facility] [address] [place], [place] [address] Allergies, Adverse Reactions, Alerts Substance [...] office 3Location History: [facility] 4Location History: [facility] 5Location History: [facility] Medications alendronate 70 [...] 0 Refills, Maintenance, 09/01/21 15:19:00 EDT, Capsule, [facility] #[id number], Partial fill upon patient request if the prescription i... Start Date: 09/01/21 Stop Date: 09/15/21 Status: Ordered duloxetine 30 mg oral enteric coated capsule 1 capsule = 30 mg, By Mouth, Daily, do not crush or chew, # 30 capsule, 3 Refills, Maintenance, 09/11/21 12:04:00 EST, CR Capsule, [facility] #[id number], Partial fill upon patient request if the [...] 01/31/21 16:35:00 EDT, Route to Pharmacy Electronically, [facility] #[id number], 170, cm, 10/02/20 10:06:00EST, Height, 56.3, kg, 11/24/19 22:58:00 EST, Dry W... Start Date: 01/31/21 Status: Ordered furosemide 20 mg oral tablet 1, tablet, By Mouth, Daily, PRN, # 90 tablet, Refills 0, Tot. Refills 0, Maintenance, NEEDED FORLEG SWELLING, 04/19/20 15:50:00 EDT, Route to Pharmacy Electronically, [facility] #37338,170, cm, 12/13/19 13:51:00 EST, Height, 56.3, kg, 0... Start Date: 04/19/20 Status: Ordered gabapentin 300 mg oral capsule 2, capsule, By Mouth, 3 times a day, # 180 capsule, Refills 1, Tot. Refills 1, Maintenance, 08/26/21 10:50:00 EDT, Route to Pharmacy Electronically, [facility] #63301, 162.56, cm, 08/22/21 2:36:00 EDT, Height, 52.65, [...] tablet, 0 Refills, Maintenance, 09/10/21 16:04:00 EST, [facility] #[id number], 170, cm, 08/30/21 17:40:00 EDT, Height,51.5, kg, 08/30/21 17:40:00 EDT, Dry Weight Start Date: 09/10/21 Status: Ordered Metoprolol Succinate ER 25 mg oral tablet, extended release 1 tablet = 25 mg, By Mouth, Daily, # 90 tablet, 1 Refills, Maintenance, 01/29/20 10:50:00 EDT, XL Tablet, [facility] #[id number], 170, cm, 12/13/19 13:51:00 EST, Height, 56.3, kg, 11/24/19 22:58:00 EST, Dry Weight Start Date: 01/29/20 Status: Ordered predniSONE 10 mg oral tablet See Instructions, 4 tabs x 3 days, 3 tabs x 3 days, 2 tabs x 3 days, 1 tab x 3 days, # 30 tablet, 0Refills, Acute 10/11/21 12:03:00 EST, 09/11/21 12:03:00 EST, Tablet, [facility] #[id number], Partial fill upon patient request if the [...] 3 Refills, Maintenance, 03/13/21 13:26:00 EDT, Tablet, [facility] #[id number], 170, cm, 10/02/20 10:06:00 EST, Height, 56.3, [...] Refills, Maintenance, 02/26/21 15:47:00 EDT, ER Tablet, [facility] #[id number], Partial fill upon patient requestif the prescription [...] 01/06/21 14:35:00 EST, Route to Pharmacy Electronically, [facility] #[id number], 170, cm, 10/02/20 10:06:00 EST, Height, 56.3, kg, 11/24/19 22:58:00 EST, Dry Weight Start Date: 01/06/21 Status: Ordered Zofran 4 mg oral tablet 1 tablet = 4 mg, By Mouth, 3 times a day, PRN nausea, # 30 tablet, 0 Refills, Maintenance, :17:00 EDT, Tablet, [facility] #39879, 170, cm, 12/13/19 13:51:00 EST, Height, 56.3, [...]
--- OUTSIDE RECORDS SUMMARY | 2023-08-21 08:42 | XMS_ITS | Continuity of Care Document ---
Author Name Unknown Organization [facility] Address [address] [place] [address]- Care Team Providers Care Finishing Pan Operator Name Role Phone Graciela Nunez MD Primary Care Physician Encounter [facility] Date(s): 12/09/21 - 01/08/22 [facility] [address] [place], [place] [address] Allergies, Adverse Reactions, Alerts [...] 23-valent vaccine 6 07/31/10 Recorded 1Result Comment: [id number] given w/out incident 2Location History: [place], [place] 3Admin Note: done @ dr jones office 4Location History: [facility] 5Location History: [facility] [...] 10/22/21 15:09:00 EST, Route to Pharmacy Electronically, [facility]#63806, Partial fill upon patient request if the pr... Start Date: 10/22/21 Status: Ordered diltiazem 180 mg/24 hours oral capsule, extended release 180 mg, 1, capsule, By Mouth, Daily, # 30 capsule, Refills 0, Tot. Refills 0, Maintenance, 11/06/2209:09:00 EST, Route to Pharmacy Electronically, [facility] #[id number], Partial fill upon patient request if the prescription is for a schedule II... Start Date: 11/06/21 Status: Ordered Flonase 50 mcg/inh nasal spray 1 sprays, Nares, Both, Daily in AM, # 16 Gm, 4 Refills, Maintenance, 12/03/21 12:34:00 EST, [place], [facility] #[id number], Partial fill upon patient request if the prescription is for a scheduleII opioid drug., 1 sprays Nares, Both Daily in AM,... Start Date: 12/03/21 Status: Ordered folic acid 1 mg oral tablet 1 mg, 1, tablet, By Mouth, Daily, # 30 tablet, Refills 5, Tot. Refills 5, Maintenance, 01/31/21 16:35:00 EDT, Route to Pharmacy Electronically, [facility] #[id number], 170, cm, 10/02/20 10:06:00EST, Height, 56.3, kg, [...] 08/26/21 10:50:00 EDT, Route to Pharmacy Electronically, [facility] #[id number], 162.56, cm, 08/22/21 2:36:00 EDT, Height, 52.65, kg, 08/22/21 2:36:00 EDT... Start Date: 08/26/21 Status: Ordered lactulose 10 gm/15 ml oral syrup 15 mL = 10 Gm, By Mouth, Every 72 hours, PRN as needed for constipation, # 300 mL, 5 Refills, Maintenance, 01/05/22 10:50:00 EST, Syrup, [facility] #[id number], Partial fill upon patient requestif the prescription [...] Acute 01/10/22 10:26:00EST, 12/17/21 10:18:00 EST, Suspension, [facility] #[id number], Partial fill upon patient request if the prescription is for a schedule II opioid... Start Date: 12/17/21 Stop Date: 01/10/22 Status: Ordered nicotine 21 mg/24 hr transdermal film, extended release 1 patch, Topically, Daily, for 6 week(s), # 42 patch, 0 Refills, Acute 02/06/22 16:15:00 EDT, 12/26/21 16:15:00 EST, Patch, [facility] #[id number], Partial fill upon patient request if the [...] is... Start Date: 12/20/21 Status: Ordered nystatin 300414 u/ml oral suspension 5 mL = 500,000 units, By Mouth, 4 times a day, for 7 days, swish and swallow, # 140 mL, 0 Refills, Acute 01/12/22 11:10:00 EDT, 01/05/22 11:10:00 EST, Suspension, [facility] #[id number], Partialfill upon patient request if the prescription [...] 0 Refills, Maintenance, 12/22/21 14:25:00 EST, Tablet, [facility] #02265, Partial fill upon patient requ... Start Date: 12/22/21 Stop Date: 12/25/21 Status: Ordered predniSONE 10 mg oral tablet See Instructions, 4 tabs x 3 days, 3 tabs x 3 days, 2 tabs x 3 days, 1 tab x 3 days, # 30 tablet, 0Refills, Acute 02/07/22 11:15:00 EDT, 01/05/22 11:08:00 EST, Tablet, [facility] #[id number], Partial fill upon patient request if the [...] 10/22/21 15:09:00 EST, Route to Pharmacy Electronically, [facility] #[id number] Tablet, Partial fill upon patient request... Start Date: 10/22/21 Status: Ordered sertraline 25 mg oral tablet 1 tablet = 25 mg, By Mouth, Daily, # 30 tablet, 5 Refills, Maintenance, 01/05/22 11:02:00 EST, Tablet, [facility] #69776, Partial fill upon patient request if the [...] Refills, Maintenance, 02/26/21 15:47:00 EDT, ER Tablet, [facility] #58170, Partial fill upon patient requestif the prescription [...] 11 Refills, Maintenance, 12/02/21 10:55:00 EST, Capsule, [facility] #[id number], Partial fill upon patient request if the [...]
--- OUTSIDE RECORDS SUMMARY | 2023-08-21 08:42 | XMS_ITS | Continuity of Care Document ---
Author Name Unknown Organization [facility] Address [address] [place] [address]- Care Team Providers Care Adjunct Trainer Name Role Phone Graciela Nunez MD Primary Care Physician [phone] Encounter [facility] [place] Date(s): 03/08/23 - 04/07/23 [facility] [address] [place], [place] [address] Allergies, Adverse Reactions, Alerts [...] 23-valent vaccine 6 07/31/10 Recorded 1Result Comment: [id number] given w/out incident 2Location History: [place], [place] 3Admin Note: done @ dr jones office 4Location History: [facility] 5Location History: [facility] 6Location History: [facility] Medications aspirin 81 mg oral [...] Replace Required Details, Route to Pharmacy Electronically, [id number], 170, cm, ... Start Date: 03/26/23 Status: Ordered baclofen 10 mg oral tablet 10 mg, 1, tablet, By Mouth, 2 times a day, PRN, # 28 tablet, Refills 2, Tot. Refills 2, Maintenance, Pain , Moderate, 02/11/23 12:27:00 EDT, Route to Pharmacy Electronically, [facility]/pharmacy #[id number], Partial fill upon patient request if the prescription is... Start Date: 02/11/23 Stop Date: 03/25/23 Status: Ordered docusate sodium 100 mg oral capsule TAKE 1 CAPSULE BY MOUTH 2 TIMES A DAY NEEDED FOR CONSTIPATION. FILLED AT [facility] Start Date: 03/18/23 Status: Ordered folic acid 1 mg oral tablet 1 mg, 1, tablet, By Mouth, Daily, # 30 tablet, Refills 11, Tot. Refills 11, Maintenance, 12/03/22 9:01:00 EST, Route to Pharmacy Electronically, [facility]/pharmacy #[id number], 170, cm, 02/04/22 11:19:00 EDT, Height, 44.1, kg, 12/20/21 16:05:00 EST, Dry Weight Start Date: 12/03/22 Status: Ordered gabapentin 300 mg oral capsule 2, capsule, By Mouth, 3 times a day, # 180 capsule, Refills 5, Tot. Refills 5, Maintenance, 08/13/22 13:03:00 EDT, [id number] 170, cm, 02/04/22 11:19:00 EDT, Height, 44.1, kg, 12/20/21 16:05:00 EST, Dry Weight Start Date: 08/13/22 Status: Ordered hydrOXYzine hydrochloride 10 mg oral tablet 3 tablet = 30 mg, By Mouth, 3 times a day, PRN NEEDED FOR ANXIETY, # 270 tablet, 3 Refills, Maintenance, 03/01/23 12:03:00 EDT, [facility]/pharmacy #[id number], 170, cm, 02/04/22 11:19:00 EDT, [...] 3 Refills, Maintenance, 12/16/22 9:12:00 EST, [facility]ule[id number] Partial fill upon patient request if [...] 0 Refills, Maintenance, 03/22/23 13:16:00 EDT, Tablet, [facility], Partial fill upon patient request if the prescription... Start Date: 03/22/23 Status: Ordered Spiriva HandiHaler 18 mcg Inhalation [...] tablet, 3 Refills, Maintenance, 02/02/23 13:02:00 EDT, [facility]/pharmacy #[id number], 170, cm, 02/04/22 11:19:00 EDT, Height, 44.1, kg,... Start Date: 02/02/23 Status: Ordered urea 15 g oral powder for reconstitution = 15 Gm, By Mouth, 2 times a day, # 3 each, 0 Refills, Maintenance, 03/22/23 13:18:00 EDT, [facility] 3, Partial fill upon patient request [...] 11 Refills, Maintenance, 12/03/22 9:00:00 EST, Capsule, [facility]/pharmacy #[id number], Partial fill upon patient request [...] Team Personnel Name: Morgan Abbott MD Position: [facility] Renal MD Member Role: Lifetime Consulting Physician Address: Address: [address] [place] [address], [address] Name: Graciela Nunez MD Position: [facility] Physician - Primary Care Member Role: PCP Address: Address: [address] [place] [address] Name: Maryam Camara RN Position: [facility] RN Member Role: Primary Care Nurse Name: Luisa Storey RN Position: [facility] RN Member Role: Primary Care Nurse Name: Paty Ventura RN Position: [facility] RN Member Role: Primary Care Nurse Name: Ruby Alexandre RN Position: S RN Member Role: Primary Care Nurse Address: Address: [address] [place] [address] Name: Celso Lawson MD Position: [facility] Renal Member Role: Lifetime Consulting Physician Address: Address: [address] [place] [address] [facility] [address] Care Team Related Persons Name: LAZARUS OSBORNE Address: [place] [address] Name: KIBBE, KAVON Address: home [address] [place] [id number] Name: PT, [facility] NONE
--- OUTSIDE RECORDS SUMMARY | 2023-08-21 08:42 | XMS_ITS | Continuity of Care Document ---
Author Name Unknown Organization [facility] Address [address] [place] [address]- Care Team Providers Care Space Systems Operations Manager Name Role Phone Graciela Nunez MD Primary Care Physician Encounter [facility] [place] Date(s): 11/20/21 - 12/20/21 [facility] [address] [place], [place] [address] Allergies, Adverse Reactions, Alerts [...] 23-valent vaccine 6 07/31/10 Recorded 1Result Comment: [id number] given w/out incident 2Location History: [place], [place] 3Admin Note: done @ dr jones office 4Location History: [facility] 5Location History: [facility] 6Location History: [facility] Medications aspirin 81 mg [...] opioid drug. Start Date: 12/20/21 Status: Ordered cefuroxime 500 mg oral tablet 1 tablet = 500 mg, By Mouth, Every 12 hours Start Date: 12/20/21 Status: Ordered Colace sodium 100 mg oral capsule 100 mg, 1, capsule, By Mouth, 2 times a day, PRN, # 60 capsule, Refills 1, Tot. Refills 1, Maintenance, for constipation, 10/22/21 15:09:00 EST, Route to Pharmacy Electronically, [facility][id number], Partial fill upon patient request if the pr... Start Date: 10/22/21 Status: Ordered diltiazem 180 mg/24 hours oral capsule, extended release 180 mg, 1, capsule, By Mouth, Daily, # 30 capsule, Refills 0, Tot. Refills 0, Maintenance, 11/06/2209:09:00 EST, Route to Pharmacy Electronically, [facility] #[id number], Partial fill upon patient request if the prescription is for a schedule II... Start Date: 11/06/21 Status: Ordered Flonase 50 mcg/inh nasal spray 1 sprays, Nares, Both, Daily in AM, # 16 Gm, 4 Refills, Maintenance, 12/03/21 12:34:00 EST, [place], [facility] #[id number], Partial fill upon patient request if the prescription is for a scheduleII opioid drug., 1 sprays Nares, Both Daily in AM,... Start Date: 12/03/21 Status: Ordered folic acid 1 mg oral tablet 1 mg, 1, tablet, By Mouth, Daily, # 30 tablet, Refills 5, Tot. Refills 5, Maintenance, 01/31/21 16:35:00 EDT, Route to Pharmacy Electronically, [facility] #[id number], 170, cm, 10/02/20 10:06:00EST, Height, 56.3, kg, [...] 08/26/21 10:50:00 EDT, Route to Pharmacy Electronically, [facility] #[id number], 162.56, cm, 08/22/21 2:36:00 EDT, Height, 52.65, [...] Acute 01/10/22 10:26:00EST, 12/17/21 10:18:00 EST, [place], [facility] #[id number], Partial fill upon patient request if the prescription is for a schedule II opioid... Start Date: 12/17/21 Stop Date: 01/10/22 Status: Ordered multivitamin Multiple Vitamins oral tablet 1 tablet, By Mouth, Daily, # 30 tablet, 11 Refills, Maintenance, 11/26/21 13:34:00 EST, Tablet, [facility] #[id number], Partial fill upon patient request if the prescription is for a schedule IIopioid drug., 1 tablet By Mouth Daily, 173, cm, .. Start Date: 11/26/21 Status: Ordered nitroglycerin 0.3 mg sublingual tablet [...] mg, By Mouth, 2 times a day, Maintenance, 12/20/21 17:56:00 EST, CR Tablet Start Date: 12/20/21 Status: Ordered predniSONE 5 mg oral tablet [...] 3 Refills, Maintenance, 03/13/21 13:26:00 EDT, Tablet, [facility] #[id number], 170, cm, 10/02/20 10:06:00 EST, Height, 56.3, kg, 11/24/19 22:58:00 EST, Dry Weight Start Date: 03/13/21 Status: Ordered Senna 8.6 mg oral tablet 17.2 mg, 2, tablet, By Mouth, Daily at bedtime, PRN, # 100 tablet, Refills 0, Tot. Refills 0, Maintenance, for constipation, 10/22/21 15:09:00 EST, Route to Pharmacy Electronically, [facility] #[id number] Tablet, Partial fill upon patient request... Start [...] Refills, Maintenance, 02/26/21 15:47:00 EDT, ER Tablet, [facility] #[id number], Partial fill upon patient requestif the prescription is for a schedule II opioid ivonne... Start Date: 02/26/21 Status: Ordered Ventolin HFA 108 mcg/inh inhalation aerosol with adapter 2 puffs, Inhalation, 4 times a day, PRN for wheezing, # 1 each, 0 Refills, Maintenance, 10/02/20 10:55:00 EST, Aerosol, [facility]/pharmacy #[id number], 170, cm, 10/02/20 10:06:00 EST, Height, 56.3, kg, 11/24/19 22:58:00 EST, Dry Weight Start Date: 10/02/20 Status: Ordered Vitamin D3 1000 intl units oral capsule 1 capsule = 25 mcg, By Mouth, Daily, # 30 capsule, 11 Refills, Maintenance, 12/02/21 10:55:00 EST, Capsule, [facility] #[id number], Partial fill upon patient request if the [...]
--- OUTSIDE RECORDS SUMMARY | 2023-08-21 08:42 | XMS_ITS | Continuity of Care Document ---
Author Name Unknown Organization [facility] Address [address] [place] [address]- Care Team Providers Care Crystalizer Operator Name Role Phone Graciela Nunez MD Primary Care Physician [phone] Encounter [facility] [place] Date(s): 05/15/22 - 06/14/22 [facility] [address] [place], [place] [address] Attending Physician: Dennys Fabian Admitting Physician: [...] 23-valent vaccine 6 07/31/10 Recorded 1Result Comment: [id number] given w/out incident 2Location History: [place], [place] 3Admin Note: done @ dr jones office 4Location History: [facility] 5Location History: [facility] 6Location History: [facility] Medications aspirin 81 mg [...] 3 Refills, Maintenance, 04/09/22 9:54:00 EDT, Tablet, [facility] #[id number], Partial fill upon patient request if the prescription is for a schedule II opioid drug., 1 tablet By Mouth Daily, 170, cm, 02/04... Start Date: 04/09/22 Status: Ordered busPIRone 10 mg oral tablet 10 mg, 1, tablet, By Mouth, 3 times a day, # 90 tablet, Refills 1, Tot. Refills 1, Maintenance, 04/28/22 16:25:00 EDT, Route to Pharmacy Electronically, [facility] #[id number], new dosage, 170, cm, 02/04/22 11:19:00 EDT, Height, 44.1, kg, ... Start Date: 04/28/22 Status: Ordered calcium (as carbonate)-vitamin D 500 mg-400 intl units oral tablet 1 tablet, By Mouth, 2 times a day, calcium 500/vitamin d 400 iu twice daily, # 60 tablet, 6 Refills, Maintenance, 02/11/22 10:15:00 EDT, Tablet, [facility] #[id number], Partial fill upon patientrequest if the prescription is for a schedule II op... Start Date: 02/11/22 Status: Ordered calcium-vitamin D 600 mg-400 intl units oral tablet 1 tablet, By Mouth, 2 times a day, # 60 tablet, 6 Refills, Maintenance, 05/15/22 16:21:00 EDT, Tablet, [facility] #[id number], Partial fill upon patient request if the prescription is for a schedule II opioid drug., 1 tablet By Mouth 2 times a da... Start Date: 05/15/22 Status: Ordered Colace sodium 100 mg oral capsule 100 mg, 1, capsule, By Mouth, 2 times a day, PRN, # 60 capsule, Refills 5, Tot. Refills 5, Maintenance, for constipation, 02/04/22 11:08:00 EDT, Route to Pharmacy Electronically, [facility]#[id number], prefers gel formulation, 170, cm, 02/04/22... Start Date: 02/04/22 Status: Ordered diltiazem 180 mg/24 hours oral capsule, extended release 180 mg, 1, capsule, By Mouth, Daily, # 30 capsule, Refills 0, Tot. Refills 0, Maintenance, 11/06/2209:09:00 EST, Route to Pharmacy Electronically, [facility] #[id number], Partial fill upon patient request if the prescription is for a schedule II... Start Date: 11/06/21 Status: Ordered Flonase 50 mcg/inh nasal spray 1 sprays, Nares, Both, Daily in AM, # 16 Gm, 4 Refills, Maintenance, 12/03/21 12:34:00 EST, [place], [facility] #[id number], Partial fill upon patient request if the prescription is for a scheduleII opioid drug., 1 sprays Nares, Both Daily in AM,... Start Date: 12/03/21 Status: Ordered folic acid 1 mg oral tablet 1 mg, 1, tablet, By Mouth, Daily, # 30 tablet, Refills 11, Tot. Refills 11, Maintenance, 02/25/22 16:15:00 EDT, Route to Pharmacy Electronically, [facility] #[id number], 170, cm, 02/04/22 11:19:00 EDT, Height, 44.1, [...] 02/09/22 15:13:00 EDT, Route to Pharmacy Electronically, [facility] #[id number], 170, cm, 02/04/22 11:19:00 EDT, Height, 44.1, kg, 12/20/21 16:05:00 EST,... Start Date: 02/09/22 Status: Ordered Hair, Skin & Nails 5 mg oral capsule 1 capsule = 5 mg, By Mouth, Daily, # 90 capsule, 3 Refills, Maintenance, 02/19/22 12:29:00 EDT, [facility] #[id number], Partial fill upon patient request if the prescription is for a schedule IIopioid drug., 1 capsule By Mouth Daily, 170, cm, 04... Start Date: 02/19/22 Status: Ordered hydrOXYzine hydrochloride 10 mg oral tablet 1-2 TABLETS, By Mouth, 2 times a day, PRN NEEDED FOR ANXIETY, # 60 tablet, 3 Refills, [facility] [id number], 170, cm, 02/04/22 11:19:00 EDT, Height, 44.1, kg, 12/20/21 16:05:00 EST, Dry Weight Start Date: 05/27/22 Status: Ordered lactulose 10 gm/15 ml oral syrup 15 mL = 10 Gm, By Mouth, Every 72 hours, PRN as needed for constipation, # 300 mL, 5 Refills, Maintenance, 03/19/22 14:45:00 EDT, Syrup, [facility] #[id number], Partial fill upon patient requestif the prescription is for a schedule II opioid ivonne... Start Date: 03/19/22 Status: Ordered LORazepam 0.5 mg oral tablet 1 tablet = 0.5 mg, By Mouth, 3 times a day, # 60 tablet, 3 Refills, Maintenance, 04/28/22 16:24:00 EDT, Tablet, [facility] #[id number], Partial fill upon patient request if the [...] 10/22/21 15:09:00 EST, Route to Pharmacy Electronically, [facility] #[id number] Tablet, Partial fill upon patient request... Start [...] Refills, Maintenance, 02/26/21 15:47:00 EDT, ER Tablet, [facility] #[id number], Partial fill upon patient requestif the prescription is for a schedule II opioid ivonne... Start Date: 02/26/21 Status: Ordered Ventolin HFA 108 mcg/inh inhalation aerosol with adapter 2 puffs, Inhalation, 4 times a day, PRN for wheezing, # 1 each, 0 Refills, Maintenance, 10/02/20 10:55:00 EST, Aerosol, [facility]/pharmacy #[id number], 170, cm, 10/02/20 10:06:00 EST, Height, 56.3, kg, 11/24/19 22:58:00 EST, Dry Weight Start Date: 10/02/20 Status: Ordered Vitamin D3 1000 intl units oral capsule 1 capsule = 25 mcg, By Mouth, Daily, # 30 capsule, 11 Refills, Maintenance, 12/02/21 10:55:00 EST, Capsule, [facility] #[id number], Partial fill upon patient request if the [...]
--- OUTSIDE RECORDS SUMMARY | 2023-08-21 08:42 | XMS_ITS | Continuity of Care Document ---
Author Name Unknown Organization [facility] Address [address] [place] [address]- Care Team Providers Care Commercial Credit Officer Name Role Phone Graciela Nunez MD Primary Care Physician Encounter [facility] [place] Date(s): 09/17/22 - 10/17/22 [facility] [address] [place], [place] [address] Allergies, Adverse Reactions, Alerts Substance [...] 23-valent vaccine 6 07/31/10 Recorded 1Result Comment: [id number] given w/out incident 2Location History: [place], [place] 3Admin Note: done @ dr jones office 4Location History: [facility] 5Location History: [facility] 6Location History: [facility] Medications aspirin 81 mg oral delayed [...] 3 Refills, Maintenance, 04/09/22 9:54:00 EDT, Tablet, [facility] #[id number], Partial fill upon patient request if the prescription is for a schedule II opioid drug., 1 tablet By Mouth Daily, 170, cm, 02/04... Start Date: 04/09/22 Status: Ordered busPIRone 10 mg oral tablet 10 mg, 1, tablet, By Mouth, 3 times a day, # 90 tablet, Refills 3, Tot. Refills 3, Maintenance, 07/30/22 13:44:00 EDT, Route to Pharmacy Electronically, [facility]/pharmacy #[id number], new dosage, 170, cm, 02/04/22 11:19:00 EDT, Height, 44.1, kg, 12/20/21 16:05:0... Start Date: 07/30/22 Status: Ordered calcium (as carbonate)-vitamin D 500 mg-400 intl units oral tablet 1 tablet, By Mouth, 2 times a day, calcium 500/vitamin d 400 iu twice daily, # 60 tablet, 6 Refills, Maintenance, 02/11/22 10:15:00 EDT, Tablet, [facility] #[id number], Partial fill upon patientrequest if the prescription is for a schedule II op... Start Date: 02/11/22 Status: Ordered calcium-vitamin D 600 mg-400 intl units oral tablet 1 tablet, By Mouth, 2 times a day, # 60 tablet, 6 Refills, Maintenance, 05/15/22 16:21:00 EDT, Tablet, [facility] #[id number], Partial fill upon patient request if the [...] EDT, Route to Pharmacy Electronically, [facility]/pharmacy #[id number],prefers gel formulation, 170, cm, 02/04/22 11:19:00... Start Date: 06/23/22 Status: Ordered diltiazem 180 mg/24 hours oral capsule, extended release 180 mg, 1, capsule, By Mouth, Daily, # 30 capsule, Refills 0, Tot. Refills 0, Maintenance, 11/06/2209:09:00 EST, Route to Pharmacy Electronically, [facility] #[id number], Partial fill upon patient request if the prescription is for a schedule II... Start Date: 11/06/21 Status: Ordered Flonase 50 mcg/inh nasal spray 1 sprays, Nares, Both, Daily in AM, # 16 Gm, 4 Refills, Maintenance, 12/03/21 12:34:00 EST, [place], [facility] #[id number], Partial fill upon patient request if the prescription is for a scheduleII opioid drug., 1 sprays Nares, Both Daily in AM,... Start Date: 12/03/21 Status: Ordered folic acid 1 mg oral tablet 1 mg, 1, tablet, By Mouth, Daily, # 30 tablet, Refills 11, Tot. Refills 11, Maintenance, 02/25/22 16:15:00 EDT, Route to Pharmacy Electronically, [facility] #[id number], 170, cm, 02/04/22 11:19:00 EDT, Height, 44.1, [...] EDT, Route to Pharmacy Electronically, [facility]/pharmacy #[id number], 170, cm, 02/04/22 11:19:00 EDT, Height, 44.1, kg, 12/20/21 16:05:00 EST, Dry Weight Start Date: 08/13/22 Status: Ordered Hair, Skin & Nails 5 mg oral capsule 1 capsule = 5 mg, By Mouth, Daily, # 90 capsule, 3 Refills, Maintenance, 02/19/22 12:29:00 EDT, [facility] #[id number], Partial fill upon patient request if the prescription is for a schedule IIopioid drug., 1 capsule By Mouth Daily, 170, cm, 04... Start Date: 02/19/22 Status: Ordered hydrOXYzine hydrochloride 10 mg oral tablet 1-2 TABLETS, By Mouth, 2 times a day, PRN NEEDED FOR ANXIETY, # 60 tablet, 5 Refills, Maintenance, 09/22/22 16:15:00 EST, [facility]/pharmacy #[id number], 170, cm, 02/04/22 11:19:00 EDT, Height, 44.1, kg, 12/20/21 16:05:00 EST, Dry Weight Start Date: 09/22/22 Status: Ordered lactulose 10 gm/15 ml oral syrup 15 mL = 10 Gm, By Mouth, Every 72 hours, PRN as needed for constipation, # 300 mL, 5 Refills, Maintenance, 03/19/22 14:45:00 EDT, Syrup, [facility] #[id number], Partial fill upon patient requestif the prescription is for a schedule II opioid ivonne... Start Date: 03/19/22 Status: Ordered LORazepam 0.5 mg oral tablet 1 tablet = 0.5 mg, By Mouth, 3 times a day, # 60 tablet, 3 Refills, Maintenance, 07/08/22 17:11:00 EDT, Tablet, [facility]/pharmacy #[id number], Partial fill upon patient request if the prescription is for a schedule II opioid drug., 170, cm, 02/04/22 11:19:00 EDT... Start Date: 07/08/22 Status: Ordered LORazepam 0.5 mg oral tablet 1 tablet = 0.5 mg, By Mouth, 3 times a day, # 60 tablet, 3 Refills, Maintenance, 09/18/22 16:44:00 EST, Tablet, [facility]/pharmacy #[id number], Partial fill upon patient [...] 10/22/21 15:09:00 EST, Route to Pharmacy Electronically, [facility] #[id number] Tablet, Partial fill upon patient request... Start [...] EST, 09/30/22 15:13:00 EST, Tablet, [facility]/pharmacy #[id number], Partial fill upon patient request if the [...] Refills, Maintenance, 02/26/21 15:47:00 EDT, ER Tablet, [facility] #[id number], Partial fill upon patient requestif the prescription [...] 11 Refills, Maintenance, 12/02/21 10:55:00 EST, Capsule, [facility] #[id number], Partial fill upon patient request if the [...] Team Personnel Name: Angie Farmer RN Position: [facility] RN Member Role: Primary Care Nurse Name: Milena ORTIZ, Morgan Hancock Position: [facility] Renal MD Member Role: Lifetime Consulting Physician Address: Address: [address] [place] [address], [address] [place] [address] Name: Graciela Nunez MD Position: [facility] Primary Care Physician Member Role: PCP Address: Address: [address] [place] [phone] [place] Name: Luisa Storey RN Position: S RN Member Role: Primary Care Nurse Care Team Related Persons Name: LAZARUS OSBORNE Address: [place] [address] Name: KAVON NICOLE Address: home [address] [place] [address] Name: , [facility]
--- OUTSIDE RECORDS SUMMARY | 2023-08-21 08:42 | XMS_ITS | Continuity of Care Document ---
Author Name Unknown Organization [facility] Address [address] [place] [address]- Care Team Providers Care Proposal Manager Writer Name Role Phone Mayra ORTIZ, Graciela Lares Primary Care Physician Encounter [facility] Date(s): 06/17/20 - 07/17/20 [facility] [address] [place] [address]- [facility] Allergies, Adverse Reactions, Alerts Substance Reaction Severity [...] 23-valent vaccine 5 07/31/10 Recorded 1Location History: [place], [place] 2Admin Note: done @ dr jones office 3Location History: [facility] 4Location History: [facility] 5Location [...] Replace Required Details, Route to Pharmacy Electronically, [facility] #[id number]... Start Date: 01/31/20 Status: Ordered [...] 01/18/20 10:43:00 EDT, Route to Pharmacy Electronically, [facility] #[id number], 170, cm, 12/13/19 13:51:00EST, Height, 56.3, kg, 11/24/19 22:58:00 EST, Dry W... Start Date: 01/18/20 Status: Ordered furosemide 20 mg oral tablet 1, tablet, By Mouth, Daily, PRN, # 90 tablet, Refills 0, Tot. Refills 0, Maintenance, NEEDED FORLEG SWELLING, 04/19/20 15:50:00 EDT, Route to Pharmacy Electronically, [facility] #[id number],170, cm, 12/13/19 13:51:00 EST, Height, 56.3, kg, 0... Start Date: 04/19/20 Status: Ordered gabapentin 300 mg oral capsule See Instructions, TAKE 2 CAPSULES BY MOUTH EVERY MORNING, 1 CAPSULE MID DAY AND 2 CAPSULES EVERY NIGHT AT BEDTIME, # 150 capsule, Refills 1, Maintenance, Instructions Replace Required Details, Route to Pharmacy Electronically, [facility] #[id number]... Start Date: 01/19/20 Status: Ordered Home [...] Refills, Maintenance, 01/29/20 10:50:00 EDT, XL Tablet, [facility] #[id number], 170, cm, 12/13/19 13:51:00 EST, Height, 56.3, [...] 6 Refills, Maintenance, 06/17/20 16:11:00 EDT, Aerosol, [facility] #[id number], 170, cm, 12/13/19 13:51:00 EST, Height, 56.3, kg, 11/24/19 22:58:00 EST, Dry Weight Start Date: 06/17/20 Stop Date: 01/13/21 Status: Ordered Ventolin HFA 108 mcg/inh inhalation aerosol with adapter 2 puffs, Inhalation, 4 times a day, PRN for wheezing, # 18 Gm, 6 Refills, Maintenance, 06/17/20 16:11:00 EDT, Aerosol, [facility] #[id number], 170, cm, 12/13/19 13:51:00 EST, Height, 56.3, kg, 11/24/19 22:58:00 EST, Dry Weight Start Date: 06/17/20 Stop Date: 01/13/21 Status: Ordered Vitamin B1 100 mg oral tablet 1, tablet, By Mouth, Daily, # 30 tablet, Refills 11, Tot. Refills 0, Acute, 12/18/19 14:10:00 EST, Route to Pharmacy Electronically, [facility] #[id number], 170, cm, 12/13/19 13:51:00 EST, Height, 56.3, kg, 11/24/19 22:58:00 EST, Dry Weight Start Date: 12/18/19 Status: Ordered Zofran 4 mg oral tablet 1 tablet = 4 mg, By Mouth, 3 times a day, PRN nausea, # 30 tablet, 0 Refills, Maintenance, :17:00 EDT, Tablet, [facility] #[id number], 170, cm, 12/13/19 13:51:00 EST, Height, 56.3, [...]
--- OUTSIDE RECORDS SUMMARY | 2023-08-21 08:42 | XMS_ITS | Continuity of Care Document ---
Author Name Unknown Organization [facility] Address [address] [place] [address]- Care Team Providers Care Dredge Pipe Installer Name Role Phone Graciela Nunez MD Primary Care Physician Encounter [facility] Date(s): 02/09/23 - 03/11/23 [facility] [address] [place], [place] [address] Allergies, Adverse Reactions, Alerts Substance Reaction Severity [...] 23-valent vaccine 6 07/31/10 Recorded 1Result Comment: [id number] given w/out incident 2Location History: [place], [place] 3Admin Note: done @ dr jones office 4Location History: [facility] 5Location History: [facility] [...] 02/11/23 12:27:00 EDT, Route to Pharmacy Electronically, [facility]/pharmacy #[id number], Partial fill upon patient request if the prescription is... Start Date: 02/11/23 Stop Date: 03/25/23 Status: Ordered busPIRone 10 mg oral tablet See Instructions, BEING TAPERED OFF, DECREASE BY 10MG EVERY DAY UNTIL DISCONTINUATION, # 60 tablet,Refills 1, Maintenance, 11/12/22 17:44:00 EST, Instructions Replace Required Details, Route to Pharmacy Electronically, [id number], 170, cm, 02/04... Start Date: 11/12/22 Status: Ordered calcium-vitamin D 600 mg-400 intl units oral tablet 1 tablet, By Mouth, 2 times a day, # 60 tablet, 6 Refills, Maintenance, 05/15/22 16:21:00 EDT, Tablet, [facility] #[id number], Partial fill upon patient request if the prescription is for a schedule II opioid drug., 1 tablet By Mouth 2 times a da... Start Date: 05/15/22 Status: Ordered clonazePAM 1 mg oral tablet See Instructions, take 1/2 tab by daily, # 10 tablet, 0 Refills, Maintenance, 03/01/23 12:06:00 EDT, Tablet, [facility]/pharmacy #[id number], Partial fill upon patient request if the prescription is for a schedule II opioid drug., 170, cm, 02/04/22 11:19:00 EDT, H... Start Date: 03/01/23 Status: Ordered Colace sodium 100 mg oral capsule 100 mg, 1, capsule, By Mouth, 2 times a day, PRN, # 180 capsule, Refills 1, Tot. Refills 1, Maintenance, for constipation, 06/23/22 10:20:00 EDT, Route to Pharmacy Electronically, [facility]/pharmacy #[id number],prefers gel formulation, 170, cm, 02/04/22 11:19:00... Start Date: 06/23/22 Status: Ordered Flonase 50 mcg/inh nasal spray 1 sprays, Nares, Both, Daily in AM, # 16 Gm, 4 Refills, Maintenance, 12/03/21 12:34:00 EST, [place], [facility] #[id number], Partial fill upon patient request if the prescription is for a scheduleII opioid drug., 1 sprays Nares, Both Daily in AM,... Start Date: 12/03/21 Status: Ordered folic acid 1 mg oral tablet 1 mg, 1, tablet, By Mouth, Daily, # 30 tablet, Refills 11, Tot. Refills 11, Maintenance, 12/03/22 9:01:00 EST, [id number], 170, cm, 02/04/22 11:19:00 EDT, Height, 44.1, kg, 12/20/21 16:05:00 EST, Dry Weight Start Date: 12/03/22 Status: Ordered gabapentin 300 mg oral capsule 2, capsule, By Mouth, 3 times a day, # 180 capsule, Refills 5, Tot. Refills 5, Maintenance, 08/13/22 13:03:00 EDT, Route to Pharmacy Electronically, [facility]/pharmacy #[id number], 170, cm, 02/04/22 11:19:00 EDT, Height, 44.1, kg, 12/20/21 16:05:00 EST, Dry Weight Start Date: 08/13/22 Status: Ordered gabapentin 300 mg oral capsule See Instructions, TAKE 2 CAPSULES BY MOUTH 3 TIMES A DAY, # 180 capsule, Refills 1, Tot. Refills 1,Maintenance, 02/15/23 15:31:00 EDT, Instructions Replace Required Details, Route to Pharmacy Electronically, [id number], 170, cm, 02/04/22 11:19:0... Start Date: 02/15/23 Status: Ordered Hair, Skin & Nails 5 mg oral capsule 1 capsule = 5 mg, By Mouth, Daily, # 90 capsule, 3 Refills, Maintenance, 02/19/22 12:29:00 EDT, [facility] #[id number], Partial fill upon patient request if the prescription is for a schedule IIopioid drug., 1 capsule By Mouth Daily, 170, cm, 04... Start Date: 02/19/22 Status: Ordered hydrOXYzine hydrochloride 10 mg oral tablet 3 tablet = 30 mg, By Mouth, 3 times a day, PRN NEEDED FOR ANXIETY, # 270 tablet, 3 Refills, Maintenance, 03/01/23 12:03:00 EDT, [facility]/pharmacy #[id number], 170, cm, 02/04/22 11:19:00 EDT, Height, 44.1, kg, 12/20/21 16:05:00 EST, Dry Weight Start Date: 03/01/23 Status: Ordered lactulose 10 gm/15 ml oral syrup 15 mL = 10 Gm, By Mouth, Every 72 hours, PRN as needed for constipation, # 300 mL, 5 Refills, Maintenance, 03/19/22 14:45:00 EDT, Syrup, [facility] #[id number], Partial fill upon patient requestif the prescription is for a schedule II opioid ivonne... Start Date: 03/19/22 Status: Ordered Metoprolol Succinate ER 25 mg oral tablet, extended release TAKE 1 TABLET BY MOUTH ONCE DAILY Start Date: 12/03/22 Status: Ordered multivitamin Multiple Vitamins oral capsule 1 capsule, By Mouth, Daily, # 90 capsule, 3 Refills, Maintenance, 12/16/22 9:12:00 EST, Capsule, [facility]/pharmacy #[id number], Partial fill upon patient [...] 12/03/22 8:52:00 EST, Route to Pharmacy Electronically, [facility]/pharmacy #[id number], Partial fill upon patient [...] tablet, 3 Refills, Maintenance, 02/02/23 13:02:00 EDT, [facility]/pharmacy #[id number], 170, cm, 02/04/22 11:19:00 EDT, Height, 44.1, kg,... Start Date: 02/02/23 Status: Ordered Tylenol 8 HR Arthritis Pain 650 mg oral tablet, extended release 1 tablet = 650 mg, By Mouth, Every 8 hours, PRN Pain , Moderate, # 100 tablet, 1 Refills, Maintenance, 02/26/21 15:47:00 EDT, ER Tablet, [facility] #[id number], Partial fill upon patient requestif the prescription [...] Personnel Name: Milena ORTIZ, Morgan Hancock Position: [facility] Renal MD Member Role: Lifetime Consulting Physician Address: Address: [address] [place] [address] [address] [place] [address]- Name: Graciela Nunez MD Position: [facility] Primary Care Physician Member Role: PCP Address: Address: [address] [place] [address]- Name: Luisa Storey RN Position: [facility] RN Member Role: Primary Care Nurse Care Team Related Persons Name: INDIA LAZARUS Address: [place] [address] Name: KAVON NICOLE Address: home [address] [place] [address] Name: PT, [facility] NONE
--- OUTSIDE RECORDS SUMMARY | 2023-08-21 08:42 | XMS_ITS | Continuity of Care Document ---
Author Name Unknown Organization [facility] Address [address] [place] [address]- Care Team Providers Care Pelts Skinner Name Role Phone Graciela Nunez MD Primary Care Physician Encounter [facility] Date(s): 07/25/21 - 08/24/21 [facility] [address] [place], [place] [address] Allergies, Adverse Reactions, Alerts [...] 23-valent vaccine 5 07/31/10 Recorded 1Location History: [place], [place] 2Admin Note: done @ dr jones office 3Location History: [facility] 4Location History: [facility] [...] EST, Compound Start Date: 12/25/19 Status: Ordered cyclobenzaprine 10 mg oral tablet 10 mg, 1, tablet, By Mouth, 3 times a day, PRN, Do not drive or drink alcohol while taking this medication. Causes sedation, use with caution. Do not drive or drink alcohol while taking., # 15 tablet, Refills 0, Tot. Refills 0, Acute 08/27/21 2:00:00... Start Date: 08/22/21 Stop Date: 08/27/21 Status: Ordered doxycycline monohydrate 100 mg oral tablet 1 tablet = 100 mg, By Mouth, 2 times a day, for 7 days, Avoid UV light exposure while taking this medication., # 14 tablet, 0 Refills, Acute 08/29/21 2:03:00 EDT, 08/22/21 2:03:00 EDT, Tablet, [facility] #[id number], Partial fill upon patient req... Start Date: 08/22/21 Stop Date: 08/29/21 Status: Ordered folic acid 1 mg oral tablet 1 mg, 1, tablet, By Mouth, Daily, # 30 tablet, Refills 5, Tot. Refills 5, Maintenance, 01/31/21 16:35:00 EDT, Route to Pharmacy Electronically, [facility] #[id number], 170, cm, 10/02/20 10:06:00EST, Height, 56.3, kg, 11/24/19 22:58:00 EST, Dry W... Start Date: 01/31/21 Status: Ordered furosemide 20 mg oral tablet 1, tablet, By Mouth, Daily, PRN, # 90 tablet, Refills 0, Tot. Refills 0, Maintenance, NEEDED FORLEG SWELLING, 04/19/20 15:50:00 EDT, Route to Pharmacy Electronically, [facility] #[id number],170, cm, 12/13/19 13:51:00 EST, Height, 56.3, kg, 0... Start Date: 04/19/20 Status: Ordered gabapentin 300 mg oral capsule 2, capsule, By Mouth, 3 times a day, # 180 capsule, Refills 1, Tot. Refills 1, Maintenance, 07/28/21 9:58:00 EDT, Route to Pharmacy Electronically, [facility] #[id number], 170, cm, 10/02/20 10:06:00 EST, Height, 56.3, [...] tablet, 2 Refills, Maintenance, 08/15/21 17:40:00 EDT, [facility] #[id number], 170, cm, 10/02/20 10:06:00 EST, Height, 56.3, kg, 11/24/19 22:58:00 EST, Dry Weight Start Date: 08/15/21 Status: Ordered Metoprolol Succinate ER 25 mg oral tablet, extended release 1 tablet = 25 mg, By Mouth, Daily, # 90 tablet, 1 Refills, Maintenance, 01/29/20 10:50:00 EDT, XL Tablet, [facility] #[id number], 170, cm, 12/13/19 13:51:00 EST, Height, 56.3, kg, 11/24/19 22:58:00 EST, Dry Weight Start Date: 01/29/20 Status: Ordered naproxen 500 mg oral tablet 1 tablet = 500 mg, By Mouth, 2 times a day, PRN Pain , Moderate, Do not combine with other nonsteroidal anti-inflammatory medication such as ibuprofen. Take with food., # 20 tablet, 0 Refills, Acute 08/27/21 2:00:00 EDT, 08/22/21 2:04:00 EDT, Tablet,... Start Date: 08/22/21 Stop Date: 08/27/21 Status: Ordered predniSONE 20 mg oral tablet 3 tablet = 60 mg, By Mouth, Daily, for 4 days, To start the morning of 08/23/21, # 12 tablet, 0 Refills, Acute 08/26/21 2:03:00 EDT, 08/22/21 2:03:00 EDT, Tablet, [facility] #[id number], Partialfill upon patient request if the prescription is fo... Start Date: 08/22/21 Stop Date: 08/26/21 Status: Ordered PULSE OXIMETER PULSE OXIMETER, See Instructions, # 1 Unknown, Refills 0, Tot. Refills 0, Maintenance, DX: HYPOXIA R09.2 USE DAILY LIFETIME USE, 12/13/19 13:58:00 EST, Compound Start Date: 12/13/19 Status: Ordered Robaxin-750 750 mg oral tablet 2 tablet = 1,500 mg, By Mouth, 3 times a day, PRN Pain , Moderate, # 90 tablet, 3 Refills, Maintenance, 03/13/21 13:26:00 EDT, Tablet, [facility] #[id number], 170, cm, 10/02/20 10:06:00 EST, Height, 56.3, [...] Refills, Maintenance, 02/26/21 15:47:00 EDT, ER Tablet, [facility] #[id number], Partial fill upon patient requestif the prescription [...] 01/06/21 14:35:00 EST, Route to Pharmacy Electronically, [facility] #[id number], 170, cm, 10/02/20 10:06:00 EST, Height, 56.3, kg, 11/24/19 22:58:00 EST, Dry Weight Start Date: 01/06/21 Status: Ordered Zofran 4 mg oral tablet 1 tablet = 4 mg, By Mouth, 3 times a day, PRN nausea, # 30 tablet, 0 Refills, Maintenance, :17:00 EDT, Tablet, [facility] #[id number], 170, cm, 12/13/19 13:51:00 EST, Height, 56.3, [...]
--- OUTSIDE RECORDS SUMMARY | 2023-08-21 08:42 | XMS_ITS | Continuity of Care Document ---
Author Name Unknown Organization [facility] Address [address] [place] [address]- Care Team Providers Care Certified Midwife Name Role Phone Graciela Nunez MD Primary Care Physician [place] [facility] Date(s): 10/01/20 - 10/31/20 [facility] [address] [place], [place] [address] Allergies, Adverse [...] 23-valent vaccine 5 07/31/10 Recorded 1Location History: [place], [place] 2Admin Note: done @ dr jones office 3Location History: [facility] 4Location History: [facility] [...] Replace Required Details, Route to Pharmacy Electronically, [facility] #[id number]... Start Date: 01/31/20 Status: Ordered doxycycline monohydrate 100 mg oral tablet 1 tablet = 100 mg, By Mouth, 2 times a day, for 7 days, # 14 tablet, 0 Refills, Acute 11/05/20 15:53:00 EST, 10/29/20 15:53:00 EST, Tablet, [facility]/pharmacy #[id number], 170, cm, 10/02/20 10:06:00 EST, Height,56.3, kg, 11/24/19 22:58:00 EST, Dry Weight Start Date: 10/29/20 Stop Date: 11/05/20 Status: Ordered folic acid 1 mg oral tablet 1 mg, 1, tablet, By Mouth, Daily, # 30 tablet, Refills 3, Tot. Refills 3, Maintenance, 01/18/20 10:43:00 EDT, Route to Pharmacy Electronically, [facility] #[id number], 170, cm, 12/13/19 13:51:00EST, Height, 56.3, kg, 11/24/19 22:58:00 EST, Dry W... Start Date: 01/18/20 Status: Ordered furosemide 20 mg oral tablet 1, tablet, By Mouth, Daily, PRN, # 90 tablet, Refills 0, Tot. Refills 0, Maintenance, NEEDED FORLEG SWELLING, 04/19/20 15:50:00 EDT, Route to Pharmacy Electronically, [facility] #[id number],170, cm, 12/13/19 13:51:00 EST, Height, 56.3, kg, 0... Start Date: 04/19/20 Status: Ordered gabapentin 300 mg oral capsule 600 mg, 2, capsule, By Mouth, 3 times a day, # 180 capsule, Refills 3, Tot. Refills 3, Maintenance,10/01/20 15:48:00 EST, Route to Pharmacy Electronically, [facility] #[id number], 170, cm, 12/13/19 13:51:00 EST, Height, 56.3, kg, 11/24/19 22:58:... Start Date: 10/01/20 Status: Ordered gabapentin 300 mg oral capsule See Instructions, TAKE 2 CAPSULES BY MOUTH three times per day, # 180 capsule, Refills 1, Instructions Replace Required Details, Route to Pharmacy Electronically, [facility] #[id number], 170, cm, 12/13/19 13:51:00 EST, Height, 56.3, [...] 11/09/20 10:53:00 EST, 10/15/20 10:53:00 EST, Tablet, [facility]/pharmacy #[id number], Partial fill upon patient request if the prescription is for a schedule II o... Start Date: 10/15/20 Stop Date: 11/09/20 Status: Ordered Metoprolol Succinate ER 25 mg oral tablet, extended release 1 tablet = 25 mg, By Mouth, Daily, # 90 tablet, 1 Refills, Maintenance, 01/29/20 10:50:00 EDT, XL Tablet, [facility] #[id number], 170, cm, 12/13/19 13:51:00 EST, Height, 56.3, [...] 3 Refills, Maintenance, 08/23/20 12:07:00 EDT, Tablet, [facility] #[id number], 170, cm, 12/13/19 13:51:00 EST, Height, 56.3, [...] 6 Refills, Maintenance, 06/17/20 16:11:00 EDT, Aerosol, [facility] #[id number], 170, cm, 12/13/19 13:51:00 EST, Height, 56.3, kg, 11/24/19 22:58:00 EST, Dry Weight Start Date: 06/17/20 Stop Date: 01/13/21 Status: Ordered Ventolin HFA 108 mcg/inh inhalation aerosol with adapter 2 puffs, Inhalation, 4 times a day, PRN for wheezing, # 1 each, 0 Refills, Maintenance, 10/02/20 10:55:00 EST, Aerosol, [facility] #[id number], 170, cm, 10/02/20 10:06:00 EST, Height, 56.3, kg, 11/24/19 22:58:00 EST, Dry Weight Start Date: 10/02/20 Status: Ordered Vitamin B1 100 mg oral tablet 1, tablet, By Mouth, Daily, # 30 tablet, Refills 11, Tot. Refills 0, Acute, 12/18/19 14:10:00 EST, Route to Pharmacy Electronically, [facility] #[id number], 170, cm, 12/13/19 13:51:00 EST, Height, 56.3, kg, 11/24/19 22:58:00 EST, Dry Weight Start Date: 12/18/19 Status: Ordered Zofran 4 mg oral tablet 1 tablet = 4 mg, By Mouth, 3 times a day, PRN nausea, # 30 tablet, 0 Refills, Maintenance, 209:17:00 EDT, Tablet, [facility] #[id number], 170, cm, 12/13/19 13:51:00 EST, Height, 56.3, [...]
--- OUTSIDE RECORDS SUMMARY | 2023-08-21 08:42 | XMS_ITS | Continuity of Care Document ---
Author Name Unknown Organization [facility] Address [address] [place] [address]- Care Team Providers Care Preparation Center Coordinator Name Role Phone Graciela Nunez MD Primary Care Physician [place] [facility] [place]23 - 07/22/23 [facility] [address] [place], [place] [address] Allergies, Adverse Reactions, Alerts Substance [...] 23-valent vaccine 6 07/31/10 Recorded 1Result Comment: [id number] given w/out incident 2Location History: [place], [place] 3Admin Note: done @ dr jones office 4Location History: [facility] 5Location History: [facility] 6Location History: [facility] Medications acetaminophen 325 mg oral tablet [...] 9:01:00 EST, Route to Pharmacy Electronically, [facility]/pharmacy #[id number], 170, cm, 02/04/22 11:19:00 EDT, Height, 44.1, kg, 12/20/21 16:05:00 EST, Dry Weight Start Date: 12/03/22 Status: Ordered gabapentin 300 mg oral capsule 2, capsule, By Mouth, 3 times a day, # 180 capsule, Refills 5, Tot. Refills 5, Maintenance, 08/13/22 13:03:00 EDT, Route to Pharmacy Electronically, [facility]/pharmacy #[id number], 170, cm, 02/04/22 11:19:00 EDT, Height, 44.1, kg, 12/20/21 16:05:00 EST, Dry Weight Start Date: 08/13/22 Status: Ordered hydrOXYzine hydrochloride 10 mg oral tablet 3 tablet = 30 mg, By Mouth, 3 times a day, PRN NEEDED FOR ANXIETY, # 270 tablet, 3 Refills, Maintenance, 03/01/23 12:03:00 EDT, [facility]/pharmacy #[id number], 170, cm, 02/04/22 11:19:00 EDT, Height, [...] 3 Refills, Maintenance, 12/16/22 9:12:00 EST, Capsule, [facility]/pharmacy #[id number], Partial fill upon patient request if [...] 30 capsule, 0 Refills, Maintenance, 06/24/23 19:50:00 EDT,[facility]/pharmacy #[id number], Partial fill upon patient request if the [...] tablet, 0 Refills, Maintenance, 06/23/23 17:30:00 EDT, [facility]/pharmacy #[id number], 170, cm, 04/19/23 7:05:00 EDT, Height, [...] Care Nurse Name: Morgan Abbott MD Position: [facility] Renal MD Member Role: Lifetime Consulting Physician Address: Address: [address] [place] [address], [address] Name: Bernice Molina RN Position: S RN Member Role: Primary Care Nurse Name: Graciela Nunez MD Position: [facility] Physician - Primary Care Member Role: PCP Address: Address: [address] [place] [address]- Name: Maryam Camara RN Position: S RN Member Role: Primary Care Nurse Name: Josemanuel Hawkins RN Position: S RN Member Role: Primary Care Nurse Name: Milana Garland RN Position: S RN Member Role: Primary Care Nurse Name: Mckay Esquivel MD Position: [facility] Renal MD Member Role: Lifetime Consulting Physician Address: Address: [address] [place] [address], [place] [address]- Name: Rylie Francois RN Position: S RN [...] Care Nurse Name: Angelica Montemayor RN Position: [facility] RN Member Role: Primary Care Nurse Name: Paty Ventura RN Position: [facility] RN Member Role: Primary Care Nurse Name: Ninfa Soto RN Position: [facility] RN Member Role: Primary Care Nurse Name: Romeo Reid MD Position: [facility] Renal MD Member Role: Lifetime Consulting Physician Address: Address: [address] [place] [address] [facility] [address] Name: Olga Valladares RN Position: [facility] RN Member Role: Primary Care Nurse Name: Karyn Quezada RN Position: [facility] RN Member Role: Primary Care Nurse Name: Ruby Alexandre RN Position: [facility] RN Member Role: Primary Care Nurse Address: Address: [address] [place] [address]- Name: Celso Lawson MD Position: [facility] Renal MD Member Role: Lifetime Consulting Physician Address: Address: [address] [place] [address] [facility] [address] Name: Alyssa Camacho RN Position: [facility] RN Member Role: Primary Care Nurse Name: Keely Pascal RN Position: S RN Member Role: Primary Care Nurse Name: Chloe Fisher LPN Position: S RN Member Role: Primary Care Nurse Care Team Related Persons Name: LAZARUS OSBORNE Address: [place] [address] Name: KAVON NICOLE Address: home [address] [place] [address] Name: , [facility] NONE
--- OUTSIDE RECORDS SUMMARY | 2023-08-21 08:42 | XMS_ITS | Continuity of Care Document ---
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 Supplies Name Role Phone Graciela Nunez MD Primary Care Physician Encounter [facility] Date(s): 08/28/21 - 09/27/21 [facility] [address] [place], [place] [address] Allergies, Adverse Reactions, Alerts Substance Reaction [...] 23-valent vaccine 5 07/31/10 Recorded 1Location History: [place], [place] 2Admin Note: done @ dr jones office 3Location History: [facility] 4Location History: [facility] 5Location History: [facility] Medications alendronate 70 mg oral [...] 0 Refills, Maintenance, 09/01/21 15:19:00 EDT, Capsule, [facility] #[id number], Partial fill upon patient request if the prescription i... Start Date: 09/01/21 Stop Date: 09/15/21 Status: Ordered duloxetine 30 mg oral enteric coated capsule 1 capsule = 30 mg, By Mouth, Daily, do not crush or chew, # 30 capsule, 3 Refills, Maintenance, 09/11/21 12:04:00 EST, CR Capsule, [facility] #[id number], Partial fill upon patient request if the [...] 01/31/21 16:35:00 EDT, Route to Pharmacy Electronically, [facility] #[id number], 170, cm, 10/02/20 10:06:00EST, Height, 56.3, kg, 11/24/19 22:58:00 EST, Dry W... Start Date: 01/31/21 Status: Ordered furosemide 20 mg oral tablet 1, tablet, By Mouth, Daily, PRN, # 90 tablet, Refills 0, Tot. Refills 0, Maintenance, NEEDED FORLEG SWELLING, 04/19/20 15:50:00 EDT, Route to Pharmacy Electronically, [facility] #[id number],170, cm, 12/13/19 13:51:00 EST, Height, 56.3, kg, 0... Start Date: 04/19/20 Status: Ordered gabapentin 300 mg oral capsule 2, capsule, By Mouth, 3 times a day, # 180 capsule, Refills 1, Tot. Refills 1, Maintenance, 08/26/21 10:50:00 EDT, Route to Pharmacy Electronically, [facility] #[id number], 162.56, cm, 08/22/21 2:36:00 EDT, Height, 52.65, [...] tablet, 0 Refills, Maintenance, 09/10/21 16:04:00 EST, [facility] #[id number], 170, cm, 08/30/21 17:40:00 EDT, Height,51.5, kg, 08/30/21 17:40:00 EDT, Dry Weight Start Date: 09/10/21 Status: Ordered Metoprolol Succinate ER 25 mg oral tablet, extended release 1 tablet = 25 mg, By Mouth, Daily, # 90 tablet, 1 Refills, Maintenance, 01/29/20 10:50:00 EDT, XL Tablet, [facility] #[id number], 170, cm, 12/13/19 13:51:00 EST, Height, 56.3, kg, 11/24/19 22:58:00 EST, Dry Weight Start Date: 01/29/20 Status: Ordered predniSONE 10 mg oral tablet See Instructions, 4 tabs x 3 days, 3 tabs x 3 days, 2 tabs x 3 days, 1 tab x 3 days, # 30 tablet, 0Refills, Acute 10/11/21 12:03:00 EST, 09/11/21 12:03:00 EST, Tablet, [facility] #[id number], Partial fill upon patient request if the [...] 3 Refills, Maintenance, 03/13/21 13:26:00 EDT, Tablet, [facility] #[id number], 170, cm, 10/02/20 10:06:00 EST, Height, 56.3, [...] Refills, Maintenance, 02/26/21 15:47:00 EDT, ER Tablet, [facility] #[id number], Partial fill upon patient requestif the prescription [...] 01/06/21 14:35:00 EST, Route to Pharmacy Electronically, [facility] #[id number], 170, cm, 10/02/20 10:06:00 EST, Height, 56.3, kg, 11/24/19 22:58:00 EST, Dry Weight Start Date: 01/06/21 Status: Ordered Zofran 4 mg oral tablet 1 tablet = 4 mg, By Mouth, 3 times a day, PRN nausea, # 30 tablet, 0 Refills, Maintenance, :17:00 EDT, Tablet, [facility] #[id number], 170, cm, 12/13/19 13:51:00 EST, Height, 56.3, [...]
--- OUTSIDE RECORDS SUMMARY | 2023-08-21 08:42 | XMS_ITS | Continuity of Care Document ---
Author Name Unknown Organization [facility] ter Address [address] [place] [id number] Care Team Providers Care Mechanotherapist Name Role Phone Mayra ORTIZ, Graciela Lares Primary Care Physician [facility] [place](s): 04/14/23 - 04/19/23 [facility] [address] [place] [id number] Discharge Disposition: A-D/C Home Attending Physician: Davian Wright MD Admitting Physician: Abilio Casillas MD Referring Physician: [...] 23-valent vaccine 6 07/31/10 Recorded 1Result Comment: [id number] given w/out incident 2Location History: [place], [place] 3Admin Note: done @ dr jones office 4Location History: [facility] 5Location History: [facility] [...] Replace Required Details, Route to Pharmacy Electronically, [id number], 170, cm, ... Start Date: 03/26/23 Status: Ordered baclofen 10 mg oral tablet 10 mg, 1, tablet, By Mouth, 2 times a day, PRN, # 28 tablet, Refills 2, Tot. Refills 2, Maintenance, Pain , Moderate, 02/11/23 12:27:00 EDT, Route to Pharmacy Electronically, [facility]/pharmacy #[id number], Partial fill upon patient request if the prescription is... Start Date: 02/11/23 Stop Date: 03/25/23 Status: Ordered docusate sodium 100 mg oral capsule TAKE 1 CAPSULE BY MOUTH 2 TIMES A DAY NEEDED FOR CONSTIPATION. FILLED AT [facility] Start Date: 03/18/23 Status: Ordered folic acid 1 mg oral tablet 1 mg, 1, tablet, By Mouth, Daily, # 30 tablet, Refills 11, Tot. Refills 11, Maintenance, 12/03/22 9:01:00 EST, Route to Pharmacy Electronically, [facility]/pharmacy #[id number], 170, cm, 02/04/22 11:19:00 EDT, Height, 44.1, kg, 12/20/21 16:05:00 EST, Dry Weight Start Date: 12/03/22 Status: Ordered gabapentin 300 mg oral capsule 2, capsule, By Mouth, 3 times a day, # 180 capsule, Refills 5, Tot. Refills 5, Maintenance, 08/13/22 13:03:00 EDT, Route to Pharmacy Electronically, [facility]/pharmacy #[id number], 170, cm, 02/04/22 11:19:00 EDT, Height, 44.1, kg, 12/20/21 16:05:00 EST, Dry Weight Start Date: 08/13/22 Status: Ordered gabapentin 300 mg oral capsule 600 mg, Capsule, By Mouth, 04/19/23 9:00:00 EDT Start Date: 04/19/23 Stop Date: 04/19/23 Status: Completed hydrOXYzine hydrochloride 10 mg oral tablet 3 tablet = 30 mg, By Mouth, 3 times a day, PRN NEEDED FOR ANXIETY, # 270 tablet, 3 Refills, Maintenance, 03/01/23 12:03:00 EDT, [facility]/pharmacy #[id number], 170, cm, 02/04/22 11:19:00 EDT, Height, 44.1, kg, 12/20/21 16:05:00 EST, Dry Weight Start Date: 03/01/23 Status: Ordered LORazepam 0.5 mg oral tablet 1 tablet = 0.5 mg, By Mouth, 2 times a day, PRN as needed for anxiety, for 14 days, fill when due, # 28 tablet, 1 Refills, Acute 05/07/23 12:41:00 EDT, 04/09/23 12:41:00 EDT, Tablet, [facility]/pharmacy #[id number], Partial fill upon patient request if the prescri... Start Date: 04/09/23 Stop Date: 05/07/23 Status: Ordered Metoprolol Succinate ER 25 mg oral tablet, extended release 1 tablet = 25 mg, By Mouth, Daily, TAKE 1 TABLET BY MOUTH ONCE DAILY Start Date: 12/03/22 Status: Ordered Metoprolol Succinate ER 50 mg oral tablet, extended release 50 mg, XL Tablet, By Mouth, 04/19/23 9:00:00 EDT Start Date: 04/19/23 Stop Date: 04/19/23 Status: Completed multivitamin Multiple Vitamins oral capsule 1 capsule, By Mouth, Daily, # 90 capsule, 3 Refills, Maintenance, 12/16/22 9:12:00 EST, Capsule, [facility]/pharmacy #[id number], Partial fill upon patient request if the prescription is for a schedule II opioid drug., 1 capsule By Mouth Daily, 170, cm, 02/04/22 1... Start Date: 12/16/22 Status: Ordered oxyCODONE 5 mg oral tablet 2.5 mg, Tablet, By Mouth, Every 6 hours, PRN for Wheezing/Shortness of Breath, Routine, 04/16/23 15:05:00 EDT Start Date: 04/16/23 Stop Date: 04/19/23 Status: Discontinued pantoprazole 40 mg oral delayed release tablet [...] 0 Refills, Maintenance, 03/22/23 13:16:00 EDT, Tablet, [facility], Partial fill upon patient request [...] each, 0 Refills, Maintenance, 03/22/23 13:18:00 EDT, [facility] 3, Partial fill upon patient request if the prescription is for a schedule II opioid drug., 170, cm, 03/22/23 2:29:00 EDT, Height, 42, kg... Start Date: 03/22/23 Status: Ordered Ventolin HFA 108 mcg/inh inhalation aerosol with adapter 2 puffs, Inhalation, 4 times a day, PRN for wheezing, # 1 each, 0 Refills, Maintenance, 10/02/20 10:55:00 EST, Aerosol, [facility]/pharmacy #[id number], 170, cm, 10/02/20 10:06:00 EST, Height, 56.3, kg, 11/24/19 22:58:00 EST, Dry Weight Start Date: 10/02/20 Status: Ordered Vitamin D3 1000 intl units oral capsule 1 capsule = 25 mcg, By Mouth, Daily, # 30 capsule, 11 Refills, Maintenance, 12/03/22 9:00:00 EST, Capsule, [facility]/pharmacy #[id number], Partial fill upon patient request if [...] for Microbiology Reports Name Date Blood Culture 04/14/23 Blood Culture #2 04/14/23 Microbiology Reports TEST:Blood Culture STATUS:Auth (Verified) BODY SITE: SOURCE:Blood COLLECTED DATE/TIME:04/14/23 1:03 PM Blood Culture SPECIMEN DESCRIPTION : BLOOD NO SITE SPECIAL REQUESTS : NONE CULTURE : NO GROWTH 5 DAYS. REPORT STATUS : FINAL 04/19/2023 TEST:Blood Culture, Second Order STATUS:Auth (Verified) BODY SITE: SOURCE:Blood COLLECTED DATE/TIME:04/14/23 1:03 PM Blood Culture, Second Order SPECIMEN DESCRIPTION : BLOOD NO SITE SPECIAL REQUESTS : NONE CULTURE : NO GROWTH 5 DAYS. REPORT STATUS : FINAL 04/19/2023 Radiology Reports * Exam Date Time Procedure Performing Provider Status 04/14/23 1:45 PM Chest 2 Views Frontal and Lat Ashlie Diallo; Auth (Verified) Notes: (Chest 2 Views Frontal and Lat) Reason For Exam: Shortness of Breath RESULT: Chest 2 Views Frontal and Lat Chest 2 Views Frontal and Lat HX OF PRESENT ILLNESS: pt presents from home via ems c o sob, n v and fevers x 3 days. pt is on 6L NC at baseline for the copd. Pt denies cp. Pt a ox4; Reason: Shortness of Breath; Clinical Question(s): CHF COMPARISON: Multiple prior chest x-rays, the most recent of which is dated 03/18/2023. CT of the chest dated 10/29/2021. FINDINGS: LINES AND TUBES: None. LUNGS AND PLEURA: Clear lungs. Normal pulmonary vascularity. No pleural effusion. No pneumothorax. HEART, MEDIASTINUM AND DEEPALI: Heart is normal in size. Normal mediastinal and hilar contour. BONES AND SOFT TISSUES: No acute abnormality. Multiple thoracic compression fractures are unchanged. Rim calcification of bilateral breast implants. IMPRESSION: No acute abnormality. I have personally reviewed the images and I agree with this report. WSN: [id number] Ordering Physician: Genesis Wells Dictated By: Sivakumar Severino MD Dictated Date/Time: 04/14/23 2:12 pm Reviewed By: Manjula Jolly MD Signed By: Manjula Jolly MD Signed Date/Time: 04/14/23 2:17 pm Transcribed By: VALENTIN Transcribed Date/Time: 04/14/23 1:57 pm Vital Signs Most recent to oldest [Reference Range]: 1 2 3 Height 170 cm (04/19/23 7:05 AM) 170 cm (04/18/23 3:07 PM) 170 cm (04/18/23 11:44 AM) Weight 42.1 kg (04/15/23 4:26 PM) Oxygen Saturation [94-100 %] 100 % (04/19/23 7:05 AM) 100 % (04/19/23 4:00 AM) 100 % (04/19/23 12:00 AM) Pulse Rate [55-90 bpm] 99 bpm *H* (04/19/23 7:52 AM) 99 bpm *H* (04/19/23 7:05 AM) 92 bpm *H* (04/19/23 4:00 AM) Body Mass Index [18.5-24.99 kg/m2] 14.57 kg/m2 *L* (04/15/23 4:26 PM) Blood Pressure [90-138/55-84 mm Hg] 126/67mm Hg (04/19/23 7:52 AM) 126/67mm Hg (04/19/23 7:05 AM) 147/71mm Hg *H* (04/19/23 4:00 AM) Respiratory Rate [16-30 br/min] 18 br/min (04/19/23 8:30 AM) 18 br/min (04/19/23 7:51 AM) 20 br/min (04/19/23 7:05 AM) Temperature [96.8-100.4 DegF] 97.8 DegF (04/19/23 7:05 AM) 98.3 DegF (04/19/23 4:00 AM) 98.3 DegF (04/19/23 12:00 AM) Liters per Minute 5 L/min (04/19/23 7:05 AM) 3 L/min (04/19/23 4:00 AM) 3 L/min (04/19/23 12:00 AM) Mode of Delivery (Oxygen) Nasal cannula (04/19/23 7:05 AM) Nasal cannula (04/19/23 4:00 AM) Nasal cannula (04/19/23 12:00 AM) Blood pressure sites Arm, right (04/19/23 7:05 AM) Arm, right (04/19/23 4:00 AM) Arm, right (04/19/23 12:00 AM) Temperature Route Oral (04/19/23 7:05 AM) Oral (04/19/23 4:00 AM) Oral (04/19/23 12:00 AM) Dry Weight 42.1 kg (04/15/23 4:26 PM) Social History Social History Type Response Tobacco Other: now smoking 1 /2 pack per day. Sex Admission evaluation note * Joshua Gotti: PERFORM, MODIFY Event Display: Admission Note Authored Date: [id number] Patient: ??KATERINE NICOLE ? Age:??62 Years?Sex:??Female?:??1960?? Chief Complaint/Reason for Consultation Shortness of breath History of Present Illness 62-year-old female??with history of COPD??on 6 L??home O2,??CHF,??hypertension,??atrial fibrillation, GERD, chronic lower back pain,??anxiety??presents with??shortness of breath.?? Patient is a poor h istorian.?? Onset was about 4 days ago.?? She has been coughing up yellow sputum.?? She denies any fever.?? In the emergency department??BNP was elevated.?? No pulmonary edema??on chest x-ray.?? Tropindeterminant. ??Respiratory status did improved after receiving Solu-Medrol and DuoNeb.?? She was found to be hyponatremic at 117.?? She was admitted for COPD exacerbation and hyponatremia. ??Duringmy assessment denies fever, CP, SOB, abdominal pain, bowel or bladder complaints. Review of Systems CONSTITUTIONAL: ??Denies any fever, chills, changes to weight or fatigue. EYES: Denies any changes to vision, burning or diplopia. HEENT: Denies any HERNANDEZ, nasal d/c, nose bleeds, changes to voice, vertigo, photophobia, hearing changes or dental problems. CV: Denies any CP, orthopnea, PND, edema, palpitations. PULM: See HPI ABD: Denies any abdominal pain, N/V/D, heartburn, PRBPR, melena, or changes to bowel habits. : Denies any changes to frequency. ??Denies dysuria, urgency, straining, hematuria, incontinence.? MS: Denies any joint or muscle pain, falls or changes to gait. NEURO: Denies any weakness, numbness, changes to speech confusion or memory loss. SKIN: Denies any rashes or lesions. ?? PSYCH: Denies any depression or anxiety. SIGECAPS negative. Objective Vital Signs?? Temperature: 98.1 DegF (04/14/23 12:25:00) Temperature Route: Oral (04/14/23 12:25:00) Pulse Rate:??120 bpm??High (04/14/23 13:14:00) Respiratory Rate: 18 br/min (04/14/23 13:14:00) Systolic Blood Pressure:??145 mm Hg??High (04/14/23 13:14:00) Diastolic Blood Pressure: 81 mm Hg (04/14/23 13:14:00) Blood pressure sites: Arm, right (04/14/23 13:14:00) Mean Arterial Pressure: 98 mm Hg (04/14/23 12:25:00) Pulse Pressure: 64 mm Hg (04/14/23 13:14:00) Oxygen Saturation: 100 % (04/14/23 13:14:00) Liters per Minute: 6 L/min (04/14/23 13:14:00) Mode of Delivery (Oxygen): Nasal cannula (04/14/23 13:14:00) Early Warning Score: 7 (04/14/23 15:46:02) ? Physical Exam General:??62 year old??female??lies in bed comfortably in no acute distress HEENT: NCAT, moist oral mucosa, good dentition, oropharynx without erythema Card: RRR no murmur, non displaced PMI, no JVD, 2+ radial pulse B/L Resp: Scattered expiratory wheezing Abdomen: soft and non tender, bowel sounds WNL Extremities: no pitted edema B/L lower extremities Skin: Without rashes or lesions, good turgor Hem/Lymph: without bruising or lymphadenopathy Psych: appropriate affect Neuro: A&OX3, no focal motor deficits Assessment/Plan 62-year-old female??with history of COPD??on 6 L??home O2,??CHF,??hypertension,??atrial fibrillation, GERD, chronic lower back pain,??anxiety??presents with??shortness of breath.? Emphysema/COPD (J43.9):?? Likely COPD exacerbation.?She reports medication compliance but patient is a poor historian.?She did improve??with DuoNeb and Solu-Medrol. We will continue treatment ?? Plan Prednisone 50 mg daily DuoNebs 4 times a day ?? Hyponatremia (E87.1):?? Sodium 117. Recently seen by renal for this??during her last hospitalization when her sodium was 123. Thought to be hypovolemic versus SIADH??.?Sodium improved with urea??and fluid restriction. renal consulted.?Pending formal recommendations.?Started on urea. Fluid restriction.??Serial electrolytes ordered ?? Anxiety (F41.9):??Continue as needed lorazepam and hydroxyzine ?? Atrial fibrillation (I48.91):??Continue metoprolol ?? GERD (gastroesophageal reflux disease) (K21.9):??Continue PPI ?? Lower back pain (M54.50):??Continue??gabapentin ?? VTE Prophylaxis:??Heparin twice daily ?VTE Prophylaxis Assessment:??VTE Prophylaxis Ordered ?? Code Status:??full code,??discussed at bedside ?Order Code Status:??Code Status Ordered ?? Ongoing Medical Necessity:??COPD exacerbation, hyponatremia ?? Discharge Planning:??Likely DC home in about 2 to 3 days ? Total time spent on chart review,??medication reconciliation, direct patient care, documentation: 76 minutes Histories Allergies Allergies ?(Active and Proposed Allergies Only) Lyrica? (Severity: Unknown severity, Onset: Unknown) ?Reactions: increased depression morphine? (Severity: Unknown severity, Onset: Unknown) ?Reactions: respiratory depression codeine? (Severity: Moderate, Onset: Unknown) ?Reactions: Nausea, Rash sulfADIAZINE? (Severity: Moderate, Onset: Unknown) ?Reactions: Rash ? Past Medical History/Problem List Active Problems??(22) Abnormal TSH Anxiety At risk for falls Bradycardia Breast pain Cervical radiculopathy Chronic respiratory failure with hypoxia Compression fracture of lumbar vertebra Compression fracture of spine Constipation End stage COPD Hyperlipidemia Leg swelling Osteoporosis Paroxysmal atrial flutter Peripheral neuropathy Pulmonary nodule Raynaud's phenomenon Rectal bleed T12 compression fracture Thoracic compression fracture Underweight ? Past Surgical History Hysterectomy Osteopetrosis Breast implant ? Social History Alcohol Details:??Use: Never. Exercise Details:??Regular exercise: No. Nutrition/Health Details:??Caffeine intake amount: 2 CUPS DAILY. Substance Abuse Details:??Use: Never. Tobacco Details:??Other: now smoking 1/2 pack per day. Details:??Current every day smoker, Tobacco use times per day: smokes about 1.5 packs per day. ? Family History Mother: Cancer of lung Father: Brain tumor ? 09-MAR-2015 22:20:40<$> Other: Hypertension Sister: Cancer of colon ? Medications Home Medications Albuterol (Ventolin HFA 108 mcg/inh inhalation aerosol with adapter)?2?puff(s)?Inhalation?4 times a day?as needed?for wheezing Aspirin (aspirin 81 mg oral delayed release tablet)?81?Milligram?1?tablet?By Mouth?Daily Atorvastatin (atorvastatin 20 mg oral tablet)?TAKE 1 TABLET BY MOUTH ONCE DAILY Azithromycin (azithromycin 500 mg oral tablet)?1?tab(s)?500?Milligram?By Mouth?Every Wednesday, Wednesday and Wednesday Baclofen (baclofen 10 mg oral tablet)?10?Milligram?1?tablet?By Mouth?2 times a day?as needed?for 14?Days?Pain , Moderate Baclofen (baclofen 10 mg oral tablet)?See Instructions?TAKE 1 TABLET BY MOUTH TWICE A DAY NEEDED FOR PAIN FOR 14 DAYS Budesonide-Formoterol (Symbicort 160mcg/4.5mcg Inhaler)?2?puff(s)?Inhalation?2 times a day Cholecalciferol (Vitamin D3 1000 intl units oral capsule)?1?capsule?25?Microgram?By Mouth?Daily Docusate (docusate sodium 100 mg oral capsule)?TAKE 1 CAPSULE BY MOUTH 2 TIMES A DAY NEEDED FOR CONSTIPATION. FILLED AT [facility] 2,10E+07 Equipment (Wheelchair)?See Instructions?small sizewt: 100 lbs ??ht: 5'7 ??lifetime needcopd J44.9 Folic Acid (folic acid 1 mg oral tablet)?1?Milligram?1?tablet?By Mouth?Daily Gabapentin (gabapentin 300 mg oral capsule)?2?capsule?By Mouth?3 times a day HydrOXYzine (hydrOXYzine hydrochloride 10 mg oral tablet)?3?tab(s)?30?Milligram?By Mouth?3 times a day?as needed? NEEDED FOR ANXIETY Lorazepam (LORazepam 0.5 mg oral tablet)?1?tab(s)?0.5?Milligram?By Mouth?2 times a day?as needed?as needed for anxiety?for 14?Days?fill when due Metoprolol (Metoprolol Succinate ER 25 mg oral tablet, extended release)?1?tab(s)?25?Milligram?By Mouth?Daily?TAKE 1 TABLET BY MOUTH ONCE DAILY Multivitamin (multivitamin Multiple Vitamins oral capsule)?1?capsule?By Mouth?Daily Pantoprazole (pantoprazole 40 mg oral delayed release tablet)?1?tab(s)?40?Milligram?By Mouth?Daily PredniSONE (predniSONE 10 mg oral tablet)?See Instructions?30 mg daily for 3 days and then 20mg daily for 3 days and then continue 10 mg daily. Tiotropium (Spiriva HandiHaler 18 mcg ??Inhalation Capsule)?18?Microgram?Inhalation?Daily Tramadol (traMADol 50 mg oral tablet)?1?tab(s)?50?Milligram?By Mouth?3 times a day with meals?TAKE 1 TABLET BY MOUTH 3 TIMES A DAY FOR 7 DAYS NEEDED FOR PAIN urea powder (urea 15 g oral powder for reconstitution)?15?gram?By Mouth?2 times a day?for 3?doses/times ? Results Recent Labs BLOOD COUNT & DIFF WBC 19.8 k/mm3 (High)?? 04/14/2023 13:03 RBC 4.40 m/mm3 ()?? 04/14/2023 13:03 Hgb 13.8 Gm/dL ()?? 04/14/2023 13:03 Hct 38.6 % ()?? 04/14/2023 13:03 MCV 87.7 femtoliters ()?? 04/14/2023 13:03 MCH 31.4 pg ()?? 04/14/2023 13:03 MCHC 35.8 g/dL ()?? 04/14/2023 13:03 Platelet Count 252 k/mm3 ()?? 04/14/2023 13:03 RDW-SD 33.2 femtoliters ()?? 04/14/2023 13:03 MPV 10.1 femtoliters ()?? 04/14/2023 13:03 Nucleated RBC (Automated) 0.0 #/100 WBC'S ()?? 04/14/2023 13:03 Abs. NRBC 0.0 k/mm3 ()?? 04/14/2023 13:03 Abs. Neut 18.4 k/mm3 (High)?? 04/14/2023 13:03 Abs. Lymph 0.4 k/mm3 (Low)?? 04/14/2023 13:03 Abs. Gilliam 0.8 k/mm3 ()?? 04/14/2023 13:03 Abs. Eo 0.0 k/mm3 ()?? 04/14/2023 13:03 Abs. Baso 0.0 k/mm3 ()?? 04/14/2023 13:03 Neut % 88.0 % (High)?? 04/14/2023 13:03 Lymph % 2.0 % (Low)?? 04/14/2023 13:03 Gilliam % 4.0 % (Low)?? 04/14/2023 13:03 Eos % 0.0 % ()?? 04/14/2023 13:03 Baso % 0.0 % ()?? 04/14/2023 13:03 Metamyelocyte % 1.0 % ()?? 04/14/2023 13:03 Band % 5.0 % ()?? 04/14/2023 13:03 RBC Morphology FEW ()?? 04/14/2023 13:03 Platelet Estimate ADEQUATE ()?? 04/14/2023 13:03 ?? CARDIAC Nt-Probnp 8883 pg/mL (High)?? 04/14/2023 13:03 High Sensitivity Troponin (HSTnT) 24 ng/L (High)?? 04/14/2023 13:03 ?? CHEM GENERAL Sodium 117 mmol/L (Critical)?? 04/14/2023 13:03 Potassium 3.9 mmol/L ()?? 04/14/2023 13:03 Chloride 74 mmol/L (Low)?? 04/14/2023 13:03 Bicarbonate Level 28 mmol/L ()?? 04/14/2023 13:03 Anion Gap 15 ()?? 04/14/2023 13:03 Glucose Level 94 mg/dL ()?? 04/14/2023 13:03 BUN 11 mg/dL ()?? 04/14/2023 13:03 Creatinine-Blood 0.4 mg/dL (Low)?? 04/14/2023 13:03 Estimated GFR Creatinine 109 ML/MIN/1.73 M2 ()?? 04/14/2023 13:03 Calcium 10.1 mg/dL ()?? 04/14/2023 13:03 Magnesium 1.8 mg/dL ()?? 04/14/2023 13:03 Protein, Total 6.3 Gm/dL ()?? 04/14/2023 13:03 Albumin 4.5 Gm/dL ()?? 04/14/2023 13:03 AG Ratio 2.5 ()?? 04/14/2023 13:03 Alkaline Phosphatase 113 units/L (High)?? 04/14/2023 13:03 AST (SGOT) 27 units/L ()?? 04/14/2023 13:03 ALT (SGPT) 16 units/L ()?? 04/14/2023 13:03 Bilirubin, Total 0.9 mg/dL ()?? 04/14/2023 13:03 Lactate 1.5 mmol/L ()?? 04/14/2023 13:03 ?? COAG D-Dimer 0.85 mg/L FEU ()?? 04/14/2023 13:03 ?? ENDOCRINE/TUMOR MARKER TSH 1.05 uIU/mL ()?? 04/14/2023 13:03 ?? VIROLOGY COVID-19 by RT-PCR NEGATIVE ()?? 04/14/2023 12:52 ? EKG study * Event Display: ECG 12-Lead Authored Date: Please click on pdf link to open report * Event Display: ECG 12-Lead Authored Date: Ventricular Rate: 125 BPM Atrial Rate: 125 BPM P-R Interval: 150 ms QRS Duration: 82 ms Q-T Interval: 312 ms QTC Calculation(Bazett): 450 ms P [place]: 88 degrees R [place]: 74 degrees T [place]: 124 degrees Sinus tachycardia with occasional Premature ventricular complexes Biatrial enlargement Nonspecific ST and T wave abnormality Abnormal ECG When compared with ECG of 18-MAR-2023 14:58, Premature ventricular complexes are now Present Premature atrial complexes are no longer Present Left posterior fascicular block is no longer Present Minimal criteria for Inferior infarct are no longer Present Non-specific change in ST segment in Anterior leads Confirmed by LIMA MOLINA MD ([id number]) on 04/14/2023 4:00:45 PM [place]: LIMA MOLINA MD Cardiology * Event Display: Cardiac Rhythm Strips Authored Date: * Event Display: Cardiac Rhythm Strips Authored Date: Hospital Progress note * Romeo Reid MD: PERFORM, SIGN, VERIFY Event Display: Progress Note Hospital Authored Date: Patient: KATERINE NICOLE Age: 62 years Sex: Female : 1960 Associated Diagnoses: None Author: Romeo Reid MD [facility] Progress Note Interval History Na remains stable Physical Examination Vital Signs Vitals : VITALS 04/19/2023 7:05 EDT Height 170 cm Temperature 97.8 DegF Temperature Route Oral Pulse Rate 99 bpm H Respiratory Rate 20 br/min Systolic Blood Pressure 126 mm Hg Diastolic Blood Pressure 67 mm Hg Blood pressure sites Arm, right Mean Arterial Pressure 87 mm Hg Pulse Pressure 59 mm Hg Oxygen Saturation 100 % Liters per Minute 5 L/min Mode of Delivery (Oxygen) Nasal cannula . General Appearance cachectic. Respiratory Lungs: wheezes. Cardiac Rhythms: RRR. Abdomen/GI Abdomen: soft. Extremities No edema. Neurologic Alert & oriented x 3 . Results Review 7 Day Results Results Laboratory : LABORATORY 04/19/2023 1:23 EDT Hold Lavender Top SPECIMEN DISCARDED AFTER 24 HOURS. Sodium 131 mmol/L L Potassium 5.0 mmol/L Chloride 87 mmol/L L Bicarbonate Level 41 mmol/L C Anion Gap 3 L Impression and Plan Mrs. Katerine Nicole is a 62-year-old female with past medical history of chronic hypoxic hypercapnic respiratory failure from advanced COPD on 6 L at home, HFreF, and chronic hyponatremia who presentedon 04/14/23 with COPD exacerbation and course c/b hyponatremia. 1. 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 Hyponatremia improved with fluid restriction and osmolar loading (primarily urea 30g BID and 1-day of NaCl tabs) Recommendations: - c.w URea 15g daily for maintenance. -Ensure supplement 1.5 kcal 3 times per day -1.5 L fluid restriction (1 L from diet) - reinforced fluid restriction Thank you for the courtesy of this consult, RTANE will continue monitoring the patient along with you please do not hesitate to call us with any further questions Romeo Reid M.D. [facility] [address] [place] [address] , [address] Available by [employer] * Cesilia LUIS, Meghan: PERFORM, SIGN, VERIFY, MODIFY, SIGN Event Display: Progress Note Hospital Authored Date: [id number] Patient: KATERINE NICOLE Age: 62 years Sex: Female : 1960 Associated Diagnoses: None Author: Meghan Lomas RN Findings Problem Related to Alteration in Fluid Electrolyte : Alteration in Fluid Electrolyte Func/new 04/18/2023 21:00 EDT Alteration Fluid Electrolytes Related to Electrolyte Imbalance Goals & Outcomes, Fluid/Electrolyte Pt will maintain adequate GI/ function appropriate for pt, Pt will maintain skin turgor, Pt will resume/maintain adequate cardiac output Interventions, Fluid Electrolyte monitor cardiac status, monitor dietary intake, monitor GI/ status, monitor hydration status, monitor mucous membranes, monitor peripheral pulses, monitor skin turgor, temperature & capillary refill, Encourage & assist with increased activity as pt tolerates, Encourage oral intake of meals, snacks, supplements, Maintain strict intake & output, Teach P t/caregiver cause of imbalance & corrective therapy, Teach Pt/caregiver re: fluid restriction, Teach Pt/caregiver importance of accurate I & O monitoring BH Goals/Interventions,Fluid Electrolyte Yes Fluid Electrolyte, Problem Start 04/15/2023 17:20 Reviewed plan with, Fluid Electrolyte Patient Patient Progression, Fluid Electrolyte Pt progressing according to plan . Evaluation Patient AxOx4; denies any dizziness, lightheadedness, headache, or nausea. Patient endorses anxiety; pain in her tailbone at 9/10; severe headache at 10/10 with photosensitivity; numb LEs; non-productive cough; and MORIN. Pain and headache managed with scheduled Gabapentin 300 mg, PRN Tylenol 650 mg and PRN Oxycodone 2.5 mg admin at 194, effects pending. PRN Hydroxyzine 30 mg, PRN PO Lorazepam 0.5mg, and PRN Melatonin 3 mg admin for anxiety and sleep at 2145, with + effect. Skin intact; extremities warm and dry; no edema noted. Palpable radial and pedal pulses, bilaterally. Patient afebrile; moderately hypertensive at 158/74 mm Hg. Patient on humidified home oxygen via NC at 3LPM; oxygen sats: 100%. Patient on tele monitor: ST, 100s. Lung sounds: all dim. Nicotine patch present on L arm. Abdomen soft; round; non-tender; + BS. LBM today (04/18/23) x 2. Patient on Pure Wick: clear, yellow urine noted in the canister. Patient ambul to commode with 1 assist. Bicarbonate levels came back critical in AM at 41; covering K. Reccord notified at 0326. Na came back low in AM at 131. Fluid restrictions maintained. Bed alert on; call hudson and personal items in reach. For full assessment details, see CIS. Plan: discharge home tomorrow if respiratory status improves. Will continue monitoring the patient. . * Tamia ORTIZ, Leonides: MODIFY, PERFORM Event Display: Progress Note Hospital Authored Date: Patient: ??KATERINE NICOLE ? Age:??62 Years?Sex:??Female?:??1960?? Subjective Patient seen and examined Looks weak, complaining of shortness of breath Denies any chest pain nausea vomiting diarrhea abdominal pain Review of Systems All systems were reviewed and are negative unless mentioned above Allergies Allergies ?(Active and Proposed Allergies Only) Lyrica? (Severity: Unknown severity, Onset: Unknown) ?Reactions: increased depression morphine? (Severity: Unknown severity, Onset: Unknown) ?Reactions: respiratory depression codeine? (Severity: Moderate, Onset: Unknown) ?Reactions: Nausea, Rash sulfADIAZINE? (Severity: Moderate, Onset: Unknown) ?Reactions: Rash ? Objective Measurements?? Height: 170 cm (04/18/23) Weight: 42.1 kg (04/15/23) Dry Weight: 42.1 kg (04/15/23) Body Mass Index:??14.57 kg/m2??Low (04/15/23) ? Vital Signs?? Temperature: 98.2 DegF (04/18/23 11:44:00) Temperature Route: Oral (04/18/23 11:44:00) Pulse Rate:??123 bpm??High (04/18/23 12:45:00) Respiratory Rate: 18 br/min (04/18/23 11:44:00) Systolic Blood Pressure: 132 mm Hg (04/18/23 12:45:00) Diastolic Blood Pressure: 60 mm Hg (04/18/23 12:45:00) Blood pressure sites: Arm, right (04/18/23 11:44:00) Mean Arterial Pressure: 84 mm Hg (04/18/23 11:44:00) Pulse Pressure: 72 mm Hg (04/18/23 11:44:00) Oxygen Saturation: 100 % (04/18/23 11:44:00) Liters per Minute: 3 L/min (04/18/23 11:44:00) Mode of Delivery (Oxygen): Nasal cannula (04/18/23 11:44:00) Early Warning Score: 2 (04/18/23 13:31:59) ? Intake/Output? 04/14 14:55 04/18 07:00 04/17 07:00 04/16 07:00 04/15 07:00 ?? 04/18 15:02 04/18 15:02 04/18 06:59 04/17 06:59 04/16 06:59 Intake ?530 ?0 ?0 ?0 ?480 Output ? 1700 ?0 ? 1000 ?700 ?0 Net Total ?-1170 ?0 ?-1000 ? -700 ?480 ? Physical Exam General Appearance: The patient is?? in NAD. Cardiovascular: RRR S1 and S2 heard with no M/R/G. Respiratory:?Diminished diffuse??breath sounds, expiratory wheezing improved??GI: Soft. Nontender and nondistended. Normal bowel sounds present throughout abdomen.?? MS: ??No edema or erythema in the lower extremities. Neuro: ??No slurred speech. ??Patient seen moving their upper and lower extremities independently. Psych:?? Appropriate and pleasant. Lines: Peripheral IV in place. _ Home Medications Albuterol (Ventolin HFA 108 mcg/inh inhalation aerosol with adapter)?2?puff(s)?Inhalation?4 times a day?as needed?for wheezing Aspirin (aspirin 81 mg oral delayed release tablet)?81?Milligram?1?tablet?By Mouth?Daily Atorvastatin (atorvastatin 20 mg oral tablet)?TAKE 1 TABLET BY MOUTH ONCE DAILY Azithromycin (azithromycin 500 mg oral tablet)?1?tab(s)?500?Milligram?By Mouth?Every Wednesday, Wednesday and Wednesday Baclofen (baclofen 10 mg oral tablet)?10?Milligram?1?tablet?By Mouth?2 times a day?as needed?for 14?Days?Pain , Moderate Baclofen (baclofen 10 mg oral tablet)?See Instructions?TAKE 1 TABLET BY MOUTH TWICE A DAY NEEDED FOR PAIN FOR 14 DAYS Budesonide-Formoterol (Symbicort 160mcg/4.5mcg Inhaler)?2?puff(s)?Inhalation?2 times a day Cholecalciferol (Vitamin D3 1000 intl units oral capsule)?1?capsule?25?Microgram?By Mouth?Daily Docusate (docusate sodium 100 mg oral capsule)?TAKE 1 CAPSULE BY MOUTH 2 TIMES A DAY NEEDED FOR CONSTIPATION. FILLED AT [email or web address] Medical Equipment (Wheelchair)?See Instructions?small sizewt: 100 lbs ??ht: 5'7 ??lifetime needcopd J44.9 Folic Acid (folic acid 1 mg oral tablet)?1?Milligram?1?tablet?By Mouth?Daily Gabapentin (gabapentin 300 mg oral capsule)?2?capsule?By Mouth?3 times a day HydrOXYzine (hydrOXYzine hydrochloride 10 mg oral tablet)?3?tab(s)?30?Milligram?By Mouth?3 times a day?as needed? NEEDED FOR ANXIETY Lorazepam (LORazepam 0.5 mg oral tablet)?1?tab(s)?0.5?Milligram?By Mouth?2 times a day?as needed?as needed for anxiety?for 14?Days?fill when due Metoprolol (Metoprolol Succinate ER 25 mg oral tablet, extended release)?1?tab(s)?25?Milligram?By Mouth?Daily?TAKE 1 TABLET BY MOUTH ONCE DAILY Multivitamin (multivitamin Multiple Vitamins oral capsule)?1?capsule?By Mouth?Daily Pantoprazole (pantoprazole 40 mg oral delayed release tablet)?1?tab(s)?40?Milligram?By Mouth?Daily PredniSONE (predniSONE 10 mg oral tablet)?See Instructions?30 mg daily for 3 days and then 20mg daily for 3 days and then continue 10 mg daily. Sertraline (sertraline 25 mg oral tablet)?TAKE 1 TABLET BY MOUTH EVERY DAY Tiotropium (Spiriva HandiHaler 18 mcg ??Inhalation Capsule)?18?Microgram?Inhalation?Daily Tramadol (traMADol 50 mg oral tablet)?1?tab(s)?50?Milligram?By Mouth?3 times a day with meals?TAKE 1 TABLET BY MOUTH 3 TIMES A DAY FOR 7 DAYS NEEDED FOR PAIN urea powder (urea 15 g oral powder for reconstitution)?15?gram?By Mouth?2 times a day?for 3?doses/times ? Inpatient Medications Medications (21) Active SCHEDULED: (12) Albuterol/Ipratropium Inhalation Sophia 3mL (Duoneb Inhalation Solution) ??1 vials, BAND Nebulizer, 4 times a day Atorvastatin 20 mg Tablet (atorvastatin 20 mg oral tablet) ??20 mg, By Mouth, Daily Gabapentin 300 mg Capsule (gabapentin 300 mg oral capsule) ??600 mg, By Mouth, 3 times a day Heparin 5000 units/mL Inj (1 mL) (Heparin Inj) ??5,000 units 1 mL, Subcutaneous Injection, 2 times a day Metoprolol 50 mg XL Tablet (Metoprolol Succinate ER 50 mg oral tablet, extended release) ??50 mg, By Mouth, Daily Nicotine 21 mg / 24 hour Patch (Nicotine Topical) ??21 mg, Topically, Daily Pantoprazole 40 mg EC Tablet (pantoprazole 40 mg oral delayed release tablet) ??40 mg, By Mouth, Daily PredniSONE 50 mg Tablet (predniSONE 50 mg oral tablet) ??50 mg, By Mouth, Daily Remove Patch (Remove ??Patch) ??1 each, Topically, Daily Sertraline 25 mg Tablet (sertraline 25 mg oral tablet) ??25 mg, By Mouth, Daily Spiriva Respimat 2.5 mcg Inhaler (Spiriva Respimat Inhaler) ??2 puffs, Inhalation, Daily Urea 15 Gm Powder (Urea Powder) ??15 Gm, By Mouth, Daily CONTINUOUS: (0) PRN: (9) Acetaminophen 325 mg Tablet (Acetaminophen Tablet) ??650 mg, By Mouth, Every 4 hours Albuterol 90mcg/Inhalation Inhaler HFA (albuterol CFC free 90 mcg/inh inhalation aerosol) ??180 mcg2 puffs, Inhalation, Every 4 hours HydrOXYzine HCL 10mg Tablet (hydrOXYzine hydrochloride 10 mg oral tablet) ??30 mg, By Mouth, 3 times a day Lorazepam 0.5 mg Tablet (LORazepam 0.5 mg oral tablet) ??0.5 mg, By Mouth, 2 times a day Melatonin 3 mg Tablet (Melatonin Tablet) ??3 mg, By Mouth, Daily at bedtime Metoprolol 5 mg Inj (Metoprolol Inj) ??5 mg 5 mL, IV Push Slowly, 4 times a day NaCl 0.9% Flush 3ml (NaCL 0.9% Flush) ??3 mL, IV Push, Every 8 hours OxyCODONE 5 mg IR Tablet (oxyCODONE 5 mg oral tablet) ??2.5 mg, By Mouth, Every 6 hours Senna 8.6 mg / Docusate 50 mg tablet (Docusate/Senna Tablet) ??1 tablet, By Mouth, 2 times a day ? Results Recent Labs BLOOD COUNT & DIFF WBC 13.2 k/mm3 (High)?? 04/17/2023 01:15 RBC 3.33 m/mm3 (Low)?? 04/17/2023 01:15 Hgb 10.5 Gm/dL (Low)?? 04/17/2023 01:15 Hct 32.2 % (Low)?? 04/17/2023 01:15 MCV 96.7 femtoliters ()?? 04/17/2023 01:15 MCH 31.5 pg ()?? 04/17/2023 01:15 MCHC 32.6 g/dL (Low)?? 04/17/2023 01:15 Platelet Count 271 k/mm3 ()?? 04/17/2023 01:15 RDW-SD 40.7 femtoliters ()?? 04/17/2023 01:15 MPV 9.2 femtoliters (Low)?? 04/17/2023 01:15 Nucleated RBC (Automated) 0.0 #/100 WBC'S ()?? 04/17/2023 01:15 Abs. NRBC 0.0 k/mm3 ()?? 04/17/2023 01:15 ?? CHEM GENERAL Sodium 137 mmol/L ()?? 04/18/2023 00:57 Potassium 5.2 mmol/L ()?? 04/18/2023 00:57 Chloride 92 mmol/L (Low)?? 04/18/2023 00:57 Bicarbonate Level 39 mmol/L (High)?? 04/18/2023 00:57 Anion Gap 6 ()?? 04/18/2023 00:57 BUN 31 mg/dL (High)?? 04/18/2023 00:57 Creatinine-Blood 0.6 mg/dL ()?? 04/18/2023 00:57 Estimated GFR Creatinine 99 ML/MIN/1.73 M2 ()?? 04/18/2023 00:57 ?? URINE OTHER Creatinine, Urine Random 28.6 mg/dL ()?? 04/17/2023 02:00 Sodium, Urine Random <20 mmol/L ()?? 04/17/2023 02:00 Chloride, Urine Random <20 mmol/L ()?? 04/17/2023 02:00 Urea Nitrogen, Urine Random 1562.9 mg/dL ()?? 04/17/2023 02:00 Osmolality, Urine Random 681 mOsm/kg ()?? 04/17/2023 02:00 ? Urinalysis?? No qualifying data available. ?? Assessment/Plan ??KATERINE NICOLE is a 62 Years Female with COPD on 5-5.5 L home O2, CHF, hypertension, atrial fibrillation, GERD, chronic lower back pain, anxiety who presented with shortness of breath found to have COPD exacerbation and SIADH with improving sodium s/p urea and salt tabs. ?? COPD exacerbation (J44.1):?? Chronic respiratory failure (J96.10):?? Leukocytosis and elevated BUN secondary to steroids. Still feeling shortness of breath ?? Plan: ??? DuoNebs 4 times daily and as needed, tiotropium ??? Continue prednisone 50 mg for 5-day course (04/14???) ??? Oxycodone 2.5 mg every 6 hours as needed ??? Continue home 5 to 5-1/2 L to maintain oxygen saturation between 88 and 92% Patient is still having slight wheezing, watch 1 more day ? SIADH (syndrome of inappropriate ADH production) (E22.2):?? Sodium level normalized Plan: ??? Continue urea powder (04/14???) ??? Continue fluid restriction (1 L from diet) ??? Status post sodium tablets??which are now discontinued ??? Renal following, recommendations appreciated Trend electrolytes daily ?? Advanced care planning/counseling discussion (Z71.89):??Previous provider??had a goals of care discussion with the patient and she wanted to be full code Plan: ??? CODE STATUS remains full code ??? Palliative care consulted but unable to see on 04/16 recommended oxycodone 2.5 mg as needed and community palliative care ?? Metabolic alkalosis (E87.3):??Most likely secondary from chronic respiratory acidosis ? Tobacco dependence (F17.200):??Nicotine patch 21 mg daily. Cessation information on discharge.??Oxygen and tobacco use strongly discouraged on discharge. Anxiety (F41.9):??Lorazepam 0.5 mg twice daily as needed, hydroxyzine 30 mg 3 times daily as needed, Sertraline Atrial fibrillation (I48.91):??Rate controlled. CHADSVASC 1.??Increase metoprolol to 50mg (from 25mg) GERD (gastroesophageal reflux disease) (K21.9):??Pantoprazole Lower back pain (M54.50):??Gabapentin ?? Discharge Planning:?? Heparin TID FULL CODE ?discharge planning Plan for discharge??tomorrow??if her breathing improves ??continue prednisone, nebs ? Diagnoses Anxiety ??(F41.9) Atrial fibrillation ??(I48.91) GERD (gastroesophageal reflux disease) ??(K21.9) Lower back pain ??(M54.50) 1. ??COPD exacerbation ??(J44.1) 2. ??Chronic respiratory failure ??(J96.10) 3. ??Metabolic alkalosis ??(E87.3) 4. ??SIADH (syndrome of inappropriate ADH production) ??(E22.2) 5. ??Advanced care planning/counseling discussion ??(Z71.89) 6. ??Tobacco dependence ??(F17.200) ? Note * Erica Wetzel RN: PERFORM Event Display: Discharge/Transfer Note Hospital Authored Date: [id number] Nursing Discharge Note Entered On: 04/19/2023 10:02 EDT Performed On: 04/19/2023 10:01 EDT by Erica Wetzel RN Nursing Discharge Note 2 Discharge Time : 04/19/2023 10:00 EDT Discharge Level of Care at Discharge : Home/Assisted/Foster Care Patient Left Unit Via : Wheelchair Patient Accompanied Off Unit with : Responsible adult DC Instructions Provided & Signed by Pt : Yes Patient Understands D/C Instructions : Yes Patient Instructions Discharge Signed : Yes Did Pt have Specialty Bed or Wound Vac : No Damari LUIS, Erica Lares - 04/19/2023 10:01 EDT * Klye ORTIZ, Davian: PERFORM Event Display: Discharge/Transfer Note Hospital Authored Date: [id number] Patient: ??KATERINE NICOLE ? Age:??62 Years?Sex:??Female?:??1960?? Patient Information Discharge Location: [facility] Primary Care Physician: Graciela Nunez MD Admit Date/Time: 04/14/23 14:55 Discharge Disposition Discharge Disposition: ?? Discharge Diagnosis COPD exacerbation (J44.1) Chronic respiratory failure (J96.10) Metabolic alkalosis (E87.3) SIADH (syndrome of inappropriate ADH production) (E22.2) Advanced care planning/counseling discussion (Z71.89) Tobacco dependence (F17.200) Anxiety (F41.9) Atrial fibrillation (I48.91) GERD (gastroesophageal reflux disease) (K21.9) Lower back pain (M54.50) ?? _ Discharge Medications Albuterol (Ventolin HFA 108 mcg/inh inhalation aerosol with adapter)?2?puff(s)?Inhalation?4 times a day?as needed?for wheezing Aspirin (aspirin 81 mg oral delayed release tablet)?81?Milligram?1?tablet?By Mouth?Daily Atorvastatin (atorvastatin 20 mg oral tablet)?TAKE 1 TABLET BY MOUTH ONCE DAILY Azithromycin (azithromycin 500 mg oral tablet)?1?tab(s)?500?Milligram?By Mouth?Every Wednesday, Wednesday and Wednesday Baclofen (baclofen 10 mg oral tablet)?10?Milligram?1?tablet?By Mouth?2 times a day?as needed?for 14?Days?Pain , Moderate Baclofen (baclofen 10 mg oral tablet)?See Instructions?TAKE 1 TABLET BY MOUTH TWICE A DAY NEEDED FOR PAIN FOR 14 DAYS Budesonide-Formoterol (Symbicort 160mcg/4.5mcg Inhaler)?2?puff(s)?Inhalation?2 times a day Cholecalciferol (Vitamin D3 1000 intl units oral capsule)?1?capsule?25?Microgram?By Mouth?Daily Docusate (docusate sodium 100 mg oral capsule)?TAKE 1 CAPSULE BY MOUTH 2 TIMES A DAY NEEDED FOR CONSTIPATION. FILLED AT [employer] (Wheelchair)?See Instructions?small sizewt: 100 lbs ??ht: 5'7 ??lifetime needcopd J44.9 Folic Acid (folic acid 1 mg oral tablet)?1?Milligram?1?tablet?By Mouth?Daily Gabapentin (gabapentin 300 mg oral capsule)?2?capsule?By Mouth?3 times a day HydrOXYzine (hydrOXYzine hydrochloride 10 mg oral tablet)?3?tab(s)?30?Milligram?By Mouth?3 times a day?as needed? NEEDED FOR ANXIETY Lorazepam (LORazepam 0.5 mg oral tablet)?1?tab(s)?0.5?Milligram?By Mouth?2 times a day?as needed?as needed for anxiety?for 14?Days?fill when due Metoprolol (Metoprolol Succinate ER 25 mg oral tablet, extended release)?1?tab(s)?25?Milligram?By Mouth?Daily?TAKE 1 TABLET BY MOUTH ONCE DAILY Multivitamin (multivitamin Multiple Vitamins oral capsule)?1?capsule?By Mouth?Daily Pantoprazole (pantoprazole 40 mg oral delayed release tablet)?1?tab(s)?40?Milligram?By Mouth?Daily PredniSONE (predniSONE 10 mg oral tablet)?See Instructions?30 mg daily for 3 days and then 20mg daily for 3 days and then continue 10 mg daily. Sertraline (sertraline 25 mg oral tablet)?TAKE 1 TABLET BY MOUTH EVERY DAY Tiotropium (Spiriva HandiHaler 18 mcg ??Inhalation Capsule)?18?Microgram?Inhalation?Daily Tramadol (traMADol 50 mg oral tablet)?1?tab(s)?50?Milligram?By Mouth?3 times a day with meals?TAKE 1 TABLET BY MOUTH 3 TIMES A DAY FOR 7 DAYS NEEDED FOR PAIN urea powder (urea 15 g oral powder for reconstitution)?15?gram?By Mouth?2 times a day?for 3?doses/times ? Future Appointments Wednesday 11:40 AM EDT ?? With: Mayra ORTIZ, Graciela Lares Where: [facility] [address] [place] [address]- Status: Pending Objective Assessment and Plan COPD exacerbation (J44.1):??62 Years Female with COPD on 5-5.5 L home O2, CHF, hypertension, atrialfibrillation, GERD, chronic lower back pain, anxiety who presented with shortness of breath found to have COPD exacerbation and SIADH with improving sodium s/p urea and salt tabs. ? Note, mild??COPD exacerbation (J44.1): Chronic respiratory failure (J96.10):??On 5 L oxygen at home Chronically??short of breath and on chronic oxygen and prednisone ??? DuoNebs 4 times daily and as needed,??new home inhalers ??? Continue home 5 to 5-1/2 L to maintain oxygen saturation between 88 and 92% Patient is not interested in palliative care, not interested in VNA services, ? SIADH (syndrome of inappropriate ADH production) (E22.2):??Continue fluid restriction Sodium 131??no neurological deficit mostly??fluctuated between 130 and 138 ?? Advanced care planning/counseling discussion (Z71.89): Previous provider had a goals of care discussion with the patient and she wanted to be full code ? Metabolic alkalosis (E87.3): Most likely secondary from chronic respiratory acidosis ? Tobacco dependence (F17.200): Nicotine patch 21 mg daily. Cessation information on discharge. Oxygen and tobacco use strongly discouraged on discharge. Anxiety (F41.9): Lorazepam 0.5 mg twice daily as needed, hydroxyzine 30 mg 3 times daily as needed,Sertraline Atrial fibrillation (I48.91): Rate controlled. CHADSVASC 1. Increase metoprolol to 50mg (from 25mg) GERD (gastroesophageal reflux disease) (K21.9): Pantoprazole Lower back pain (M54.50): Gabapentin Disposition Home with HEAT TREATING [facility], patient lives with her sister refuses??VNA ?? Discharge Planning:? Vital Signs?? Temperature: 97.8 DegF (04/19/23 07:05:00) Temperature Route: Oral (04/19/23 07:05:00) Pulse Rate:??99 bpm??High (04/19/23 07:52:00) Respiratory Rate: 18 br/min (04/19/23 08:30:00) Systolic Blood Pressure: 126 mm Hg (04/19/23 07:52:00) Diastolic Blood Pressure: 67 mm Hg (04/19/23 07:52:00) Blood pressure sites: Arm, right (04/19/23 07:05:00) Mean Arterial Pressure: 87 mm Hg (04/19/23 07:05:00) Pulse Pressure: 59 mm Hg (04/19/23 07:05:00) Oxygen Saturation: 100 % (04/19/23 07:05:00) Liters per Minute: 5 L/min (04/19/23 07:05:00) Mode of Delivery (Oxygen): Nasal cannula (04/19/23 07:05:00) Early Warning Score: 3 (04/19/23 08:33:39) ? . Physical Exam General: [Alert, in no acute cardiopulmonary distress.] Mental Status: [Oriented to person, place and time. Normal affect.] Head: [Normocephalic.] Eyes: [Pupils are equal, round and reactive to light. Extraocular muscles intact.] Ear, Nose and Throat: [Oropharynx clear, mucous membranes moist. Ears and nose without masses, lesions or deformities. Tympanic membranes clear bilaterally. Trachea midline.] Neck: [Supple, Full range of motion.] Respiratory:??Decreased breath sounds, chronically short of breath currently on supplemental oxygenwhich is chronic Cardiovascular: [Heart sounds normal. No thrills. Regular rate and rhythm, no murmurs, rubs or gallops.] Gastrointestinal: [Abdomen soft, non-tender, non-distended. Normal bowel sounds. No pulsatile mass.No hepatosplenomegaly.] Genitourinary: [No costovertebral angle tenderness.] Neurologic: [Cranial nerves II-XII grossly intact. No focal neurological deficits. Musculoskeletal: [No cyanosis or clubbing. No gross deformities. Normal range of motion.] Lymphatics: [Palpation of neck reveals no swelling or tenderness of neck nodes. Palpation of groin reveals no swelling or tenderness of groin nodes.] Psychiatric: [Not anxious fully cooperative following commands.] Pending Results Add On Lab Order ordered on 04/15/2023 Blood Culture ordered on 04/14/2023 Blood Culture #2 ordered on 04/14/2023 Hold Gel Top Tube ordered on 04/16/2023 Urea Nitrogen Urine ordered on 04/17/2023 Follow-Up Appointments Added Follow Up ?Time Frame ?Comments MayraGraciela donald MD?1 week Post Discharge Care Discharge ?04/19/23 8:16:00 EDT Home Health Face to Face ^[facility] Results Discharge Labs BLOOD COUNT & DIFF WBC 13.2 k/mm3 (High)?? 04/17/2023 01:15 RBC 3.33 m/mm3 (Low)?? 04/17/2023 01:15 Hgb 10.5 Gm/dL (Low)?? 04/17/2023 01:15 Hct 32.2 % (Low)?? 04/17/2023 01:15 MCV 96.7 femtoliters ()?? 04/17/2023 01:15 MCH 31.5 pg ()?? 04/17/2023 01:15 MCHC 32.6 g/dL (Low)?? 04/17/2023 01:15 Platelet Count 271 k/mm3 ()?? 04/17/2023 01:15 RDW-SD 40.7 femtoliters ()?? 04/17/2023 01:15 MPV 9.2 femtoliters (Low)?? 04/17/2023 01:15 Nucleated RBC (Automated) 0.0 #/100 WBC'S ()?? 04/17/2023 01:15 Abs. NRBC 0.0 k/mm3 ()?? 04/17/2023 01:15 Abs. Neut 18.4 k/mm3 (High)?? 04/14/2023 13:03 Abs. Lymph 0.4 k/mm3 (Low)?? 04/14/2023 13:03 Abs. Gilliam 0.8 k/mm3 ()?? 04/14/2023 13:03 Abs. Eo 0.0 k/mm3 ()?? 04/14/2023 13:03 Abs. Baso 0.0 k/mm3 ()?? 04/14/2023 13:03 Neut % 88.0 % (High)?? 04/14/2023 13:03 Lymph % 2.0 % (Low)?? 04/14/2023 13:03 Gilliam % 4.0 % (Low)?? 04/14/2023 13:03 Eos % 0.0 % ()?? 04/14/2023 13:03 Baso % 0.0 % ()?? 04/14/2023 13:03 Metamyelocyte % 1.0 % ()?? 04/14/2023 13:03 Band % 5.0 % ()?? 04/14/2023 13:03 RBC Morphology FEW ()?? 04/14/2023 13:03 Platelet Estimate ADEQUATE ()?? 04/14/2023 13:03 ?? CARDIAC Nt-Probnp 8883 pg/mL (High)?? 04/14/2023 13:03 High Sensitivity Troponin (HSTnT) 24 ng/L (High)?? 04/14/2023 13:03 ?? CHEM GENERAL Sodium 131 mmol/L (Low)?? 04/19/2023 01:23 Potassium 5.0 mmol/L ()?? 04/19/2023 01:23 Chloride 87 mmol/L (Low)?? 04/19/2023 01:23 Bicarbonate Level 41 mmol/L (Critical)?? 04/19/2023 01:23 Anion Gap 3 (Low)?? 04/19/2023 01:23 Glucose Level 94 mg/dL ()?? 04/14/2023 13:03 BUN 31 mg/dL (High)?? 04/18/2023 00:57 Creatinine-Blood 0.6 mg/dL ()?? 04/18/2023 00:57 Estimated GFR Creatinine 99 ML/MIN/1.73 M2 ()?? 04/18/2023 00:57 Osmolality 244 mOs/kg (Low)?? 04/14/2023 16:03 Calcium 10.1 mg/dL ()?? 04/14/2023 13:03 Phosphorus HEMOLYZED mg/dL ()?? 04/15/2023 04:21 Magnesium HEMOLYZED mg/dL ()?? 04/15/2023 04:21 Protein, Total 6.3 Gm/dL ()?? 04/14/2023 13:03 Albumin 4.5 Gm/dL ()?? 04/14/2023 13:03 AG Ratio 2.5 ()?? 04/14/2023 13:03 Alkaline Phosphatase 113 units/L (High)?? 04/14/2023 13:03 AST (SGOT) 27 units/L ()?? 04/14/2023 13:03 ALT (SGPT) 16 units/L ()?? 04/14/2023 13:03 Bilirubin, Total 0.9 mg/dL ()?? 04/14/2023 13:03 Lactate 1.5 mmol/L ()?? 04/14/2023 13:03 ? COAG D-Dimer 0.85 mg/L FEU ()?? 04/14/2023 13:03 ? ENDOCRINE/TUMOR MARKER TSH 1.05 uIU/mL ()?? 04/14/2023 13:03 ? HEME OTHER Hold Lavender Top SPECIMEN DISCARDED AFTER 24 HOURS. ()?? 04/19/2023 01:23 ? MISC. CHEMISTRY Hold Green Top SPECIMEN DISCARDED AFTER 1 WEEK ()?? 04/15/2023 13:00 ? UA/URINALYSIS Appear/Color, Urine LIGHT YELLOW ()?? 04/18/2023 22:44 Specific [place], Urine 1.021 ()?? 04/18/2023 22:44 pH, Urine 7.0 ()?? 04/18/2023 22:44 Albumin, Urine NEGATIVE ()?? 04/18/2023 22:44 Glucose, Urine NEGATIVE ()?? 04/18/2023 22:44 Ketones, Urine NEGATIVE ()?? 04/18/2023 22:44 Bilirubin, Urine NEGATIVE ()?? 04/18/2023 22:44 Hemoglobin, Urine NEGATIVE ()?? 04/18/2023 22:44 Nitrite, Urine NEGATIVE ()?? 04/18/2023 22:44 Leukocyte, Urine 1+ (Abnormal)?? 04/18/2023 22:44 Urobilinogen NORMAL mg/dL ()?? 04/18/2023 22:44 WBC's, Urine 6 /HPF (High)?? 04/18/2023 22:44 RBC's, Urine NONE SEEN /HPF ()?? 04/18/2023 22:44 Squamous Epith <1 /HPF ()?? 04/18/2023 22:44 Hold Urine Culture Testing available 48 hours from time of collection. ()?? 04/18/2023 22:44 ? URINE OTHER Creatinine, Urine Random 28.6 mg/dL ()?? 04/17/2023 02:00 Sodium, Urine Random <20 mmol/L ()?? 04/17/2023 02:00 Chloride, Urine Random <20 mmol/L ()?? 04/17/2023 02:00 Urea Nitrogen, Urine Random 1562.9 mg/dL ()?? 04/17/2023 02:00 Osmolality, Urine Random 681 mOsm/kg ()?? 04/17/2023 02:00 Est Creatinine Clearance 62.96 mL/min ()?? 04/15/2023 16:28 ?? VIROLOGY COVID-19 by RT-PCR NEGATIVE ()?? 04/14/2023 12:52 ? Microbiology ?? COVID-19 (Novel Coronavirus), Rapid PCR?? Completed?? Source: Nasal Body Site: Nose Collected Dt/Tm: 04/14/2023 12:40 Last Updated Dt/Tm: 04/14/2023 13:44 ? 35??minutes spent on discharge * Damari LUIS, Erica Lares: PERFORM, MODIFY Event Display: Patient Education/Instruction Authored Date: [id number] Inpatient Adult Discharge Instructions [address] [address] Name: KATERINE NICOLE : 1960 Visit: 04/14/2023 14:55:00 Current Date: 04/19/2023 09:24 Account: [id number] Inpatient Adult Discharge Instructions We would like [...] and their families. Surveys are administered by [employer] ?? If further treatment with your primary care physician or another doctor is recommended, it is important for you to keep the appointment. Call your primary care physician or return to the Emergency Department immediately if your condition worsens, fails to improve, or new symptoms develop. If you need to find a doctor, you can call [facility] for a referral at [phone] or toll free at [phone] or log in to [email or web address].. ?? You can view and manage your care through the patient portal or by using a health care noemi of your choosing. [email or web address] is a website that allows you to securely view your medical information including your hospital discharge summary, office visit summaries, medications and follow-up visits. You can also request appointments, renew medications, and request access to your medical information using a health care noemi of your choosing, or just ask a question. You can enroll at [email or web address] or register during your next office visit. You have been discharged from [facility], Patient Care Unit: D3B. If you have any questions regarding these instructions after you leave, please call us and we will be happy to assist you. [facility] Your Care Team Attending Physician Davian Wright MD Consulting Providers Davian Wright MD; Joshua Gotti; Khadijah Benton MD Discharging Providers Davian Wright MD Reason for Admission Shortness of breath Your Diagnosis Atrial fibrillation GERD (gastroesophageal reflux disease) Lower back pain Anxiety COPD exacerbation Chronic respiratory failure Metabolic alkalosis SIADH (syndrome of inappropriate ADH production) Advanced care planning/counseling discussion Tobacco dependence Tests Performed Below is a partial list of the tests performed during your hospitalization. You may have had other tests and procedures not included in this list. Please discuss all test results with your provider. BUN CBC CBC w/ Differential Comprehensive Metabolic Panel COVID-19 (Novel Coronavirus), Rapid PCR Creatinine D Dimer Electrolytes High??Sensitivity??Troponin T HOLD GREEN TUBE HOLD LAVENDER TUBE Lactate Level Lytes MAGNESIUM OSMOLALITY, SERUM PHOSPHORUS ProBNP TSH with T4 Reflex (Adults Only) UREA NITROGEN, URINE MG/DL Urinalysis w/hold for Urine Culture Urine Chloride Urine Creatinine Urine Osmolality Urine Sodium Urine Urea Nitrogen?-- Results Pending -- XR Chest 2 Views Frontal and Lat You will be contacted within 72 hours with your results. Primary Care Provider Graciela Nunez MD Advance Directive Health Care Proxy on File Yes - Health Care Proxy Discharge Vitals Temperature: 97.8 DegF Height: 170 cm Pulse Rate:??99 bpm??High Weight: 42.1 kg Respiratory Rate: 18 br/min Body Mass Index:??14.57 kg/m2??Low Systolic Blood Pressure: 126 mm Hg Body surface area: 1.41 Diastolic Blood Pressure: 67 mm Hg ?? Oxygen Saturation: 100 % ?? Studies Pending All tests and labs ordered during this hospital stay have been completed unless listed below. Please discuss all pending results with your provider listed above in these instructions. ?? Add On Lab Order (Lab Add On Order) Blood Culture Blood Culture #2 Electrolytes Hold Gel Top Tube (HOLD GEL TUBE) Urea Nitrogen Urine (Urine Urea Nitrogen) What to do next Instructions From Your Doctor Discharge Orders Scheduled Follow-Up Appointments Wednesday 11:40 AM EDT ?? With: Graciela Nunez MD Where: [facility] [address] [place] [address]- Status: Pending You Need to Schedule the Following Appointments Follow Up with??Graciela Nunez MD When:??Within 1 week Discharge Medications KATERINE NICOLE :1960 Visit Date:04/14/2023 Medications: Please continue your medications until treatment is completed or stopped by your provider. Medications not listed below should be discontinued. Discuss any questions related to medications with your provider. What How Much When Why Instructions Next Dose Unchanged Albuterol (Ventolin HFA 108 mcg/ inh inhalation aerosol with adapter) 2 puff(s) Inhalation 4 times a day as needed for for wheezing Emphysema/COPD as needed Unchanged Aspirin (aspirin 81 mg oral delayed release tablet) 1 tab(s) Oral Daily resume as previous Unchanged Atorvastatin (atorvastatin 20 mg oral tablet) TAKE 1 TABLET BY MOUTH ONCE DAILY ?? tomorrow am 04/20/23 Unchanged Azithromycin (azithromycin 500 mg oral tablet) 1 tab(s) Oral Wednesday, Wednesday and Wednesday may resume as previous Unchanged Baclofen (baclofen 10 mg oral tablet) 1 tab(s) Oral Twice a day as needed for Pain , Moderate Duration: 14 Days as needed Unchanged Baclofen (baclofen 10 mg oral tablet) See instructions TAKE 1 TABLET BY MOUTH TWICE A DAY NEEDED FOR PAIN FOR 14 DAYS ?? Unchanged Budesonide-Formoterol (Symbicort 160mcg/ 4.5mcg Inhaler) 2 puff(s) Inhalation Twice a day 9pm tonight 04/19/23 Unchanged Cholecalciferol (Vitamin D3 1000 intl units oral capsule) 1 capsule Oral Daily reume as previous Unchanged Docusate (docusate sodium 100 mg oral capsule) TAKE 1 CAPSULE BY MOUTH 2 TIMES A DAY NEEDED FOR CONSTIPATION. [facility] ?? as needed Unchanged Durable Medical Equipment (Wheelchair) See instructions small size wt: 100 lbs ??ht: 5'7 ??lifetime need copd J44.9 ?? Unchanged Folic Acid (folic acid 1 mg oral tablet) 1 tab(s) Oral Daily resume as previous Unchanged Gabapentin (gabapentin 300 mg oral capsule) 2 capsule Oral 3 times a day 3pm today 04/19/23 Unchanged HydrOXYzine (hydrOXYzine hydrochloride 10 mg oral tablet) 3 tab(s) Oral 3 times a day as needed for NEEDED FOR ANXIETY as needed, had dose this am 04/19/23 Unchanged Lorazepam (LORazepam 0.5 mg oral tablet) 1 tab(s) Oral Twice a day as needed for as needed for anxiety Duration: 14 Days fill when due ?? as needed, last dose am 04/19/23 Unchanged Metoprolol (Metoprolol Succinate ER 25 mg oral tablet, extended release) 1 tab(s) Oral Daily TAKE 1 TABLET BY MOUTH ONCE DAILY ?? tomorrow am 04/20/23 Unchanged Multivitamin (multivitamin Multiple Vitamins oral capsule) 1 capsule Oral Daily tomorrow am 04/20/23 Unchanged Pantoprazole (pantoprazole 40 mg oral delayed release tablet) 1 tab(s) Oral Daily tomorrow am 04/20/23 Unchanged PredniSONE (predniSONE 10 mg oral tablet) See instructions 30 mg daily for 3 days and then 20 mg daily for 3 days and then continue 10 mg daily. ?? resume as previous Unchanged Sertraline (sertraline 25 mg oral tablet) TAKE 1 TABLET BY MOUTH EVERY DAY ?? tomorrow am 04/20/23 Unchanged Tiotropium (Spiriva HandiHaler 18 mcg Inhalation Capsule) 18 Microgram Inhalation Daily tomorrow am 04/20/23 Unchanged Tramadol (traMADol 50 mg oral tablet) 1 tab(s) Oral 3 times a day with meals TAKE 1 TABLET BY MOUTH 3 TIMES A DAY FOR 7 DAYS NEEDED FOR PAIN ?? as needed Unchanged urea powder (urea 15 g oral powder for reconstitution) 15 gram Oral Twice a day Duration: 3 doses/times resume as previous, had dose 04/19/23/AM Test Results Below is a partial list of the most recent Laboratory test results done prior to this discharge. You may have had other tests and procedures not included in this list. Please discuss all test resultswith your provider. Est Creatinine Clearance - 62.96 mL/min (04/15/2023) BUN (04/18/2023) ???BUN - 31 mg/dL CBC (04/17/2023) ???WBC - 13.2 k/mm3???RBC - 3.33 m/mm3???Hgb - 10.5 Gm/dL???Hct - 32.2 %???MCV - 96.7 femtoliters???MCH - 31.5 pg???MCHC - 32.6 g/dL???Platelet Count - 271 k/mm3???RDW-SD - 40.7 femtoliters???MPV - 9.2 femtoliters???Nucleated RBC (Automated) - 0.0 #/100 WBC'S???Abs. NRBC - 0.0 k/mm3 CBC w/ Differential (04/14/2023) ???WBC - 19.8 k/mm3???RBC - 4.40 m/mm3???Hgb - 13.8 Gm/dL???Hct - 38.6 %???MCV - 87.7 femtoliters???MCH - 31.4 pg???MCHC - 35.8 g/dL???Platelet Count - 252 k/mm3???RDW-SD - 33.2 femtoliters???MPV - 10.1 femtoliters???Nucleated RBC (Automated) - 0.0 #/100 WBC'S???Abs. NRBC - 0.0 k/mm3???Abs. Neut - 18.4 k/mm3???Abs. Lymph - 0.4 k/mm3???Abs. Gilliam - 0.8 k/mm3???Abs. Eo - 0.0 k/mm3???Abs. Baso - 0.0 k/mm3???Neut % - 88.0 %???Lymph % - 2.0 %???Gilliam % - 4.0 %???Eos % - 0.0 %???Baso % - 0.0 %???Metamyelocyte % - 1.0 %???Band % - 5.0 %???RBC Morphology - FEW???Platelet Estimate - ADEQUATE Comprehensive Metabolic Panel (04/14/2023) ???Sodium - 117 mmol/L???Potassium - 3.9 mmol/L???Chloride - 74 mmol/L???Bicarbonate Level - 28 mmol/L???Anion Gap - 15???Glucose Level - 94 mg/dL???BUN - 11 mg/dL???Creatinine-Blood - 0.4 mg/dL???Estimated GFR Creatinine - 109 ML/MIN/1.73 M2???Calcium - 10.1 mg/dL???Protein, Total - 6.3 Gm/dL???Alb umin - 4.5 Gm/dL???AG Ratio - 2.5???Alkaline Phosphatase - 113 units/L???AST (SGOT) - 27 units/L???ALT (SGPT) - 16 units/L???Bilirubin, Total - 0.9 mg/dL COVID-19 (Novel Coronavirus), Rapid PCR (04/14/2023) ???COVID-19 by RT-PCR - NEGATIVE Creatinine (04/18/2023) ???Creatinine-Blood - 0.6 mg/dL???Estimated GFR Creatinine - 99 ML/MIN/1.73 M2 D Dimer (04/14/2023) ???D-Dimer - 0.85 mg/L FEU Electrolytes (04/19/2023) ???Sodium - 131 mmol/L???Potassium - 5.0 mmol/L???Chloride - 87 mmol/L???Bicarbonate Level - 41 mmol/L???Anion Gap - 3 High??Sensitivity??Troponin T (04/14/2023) ???High Sensitivity Troponin (HSTnT) - 24 ng/L HOLD GREEN TUBE (04/15/2023) ???Hold Green Top - SPECIMEN DISCARDED AFTER 1 WEEK HOLD LAVENDER TUBE (04/19/2023) ???Hold Lavender Top - SPECIMEN DISCARDED AFTER 24 HOURS. Lactate Level (04/14/2023) ???Lactate - 1.5 mmol/L Lytes (04/16/2023) ???Sodium - 129 mmol/L???Potassium - 4.0 mmol/L???Chloride - 85 mmol/L???Bicarbonate Level - 34 mmol/L???Anion Gap - 10 MAGNESIUM (04/15/2023) ???Magnesium - HEMOLYZED OSMOLALITY, SERUM (04/14/2023) ???Osmolality - 244 mOs/kg PHOSPHORUS (04/15/2023) ???Phosphorus - HEMOLYZED ProBNP (04/14/2023) ???Nt-Probnp - 8883 pg/mL TSH with T4 Reflex (Adults Only) (04/14/2023) ???TSH - 1.05 uIU/mL UREA NITROGEN, URINE MG/DL (04/17/2023) ???Urea Nitrogen, Urine Random - 1562.9 mg/dL Urinalysis w/hold for Urine Culture (04/18/2023) ???Appear/Color, Urine - LIGHT YELLOW???Specific [place], Urine - 1.021???pH, Urine - 7.0???Albumin, Urine - NEGATIVE???Glucose, Urine - NEGATIVE???Ketones, Urine - NEGATIVE???Bilirubin, Urine - NEGATIVE???Hemoglobin, Urine - NEGATIVE???Nitrite, Urine - NEGATIVE???Leukocyte, Urine - 1+???Urobilinogen - NORMAL? ?WBC's, Urine - 6 /HPF? ?RBC's, Urine - NONE SEEN? ?Squamous Epith - <1 /HPF? ?Hold Urine Culture - Testing available 48 hours from time of collection. Urine Chloride (04/17/2023) ? ?Chloride, Urine Random - <20 mmol/L Urine Creatinine (04/17/2023) ???Creatinine, Urine Random - 28.6 mg/dL Urine Osmolality (04/17/2023) ???Osmolality, Urine Random - 681 mOsm/kg Urine Sodium (04/17/2023) ? ?Sodium, Urine Random - <20 mmol/L Allergies (NKA means No Known Allergies) codeine??(Rash, Nausea) sulfADIAZINE??(Rash) Lyrica??(increased depression) morphine??(respiratory depression) Problems Active Problems??(22) Abnormal TSH?? Anxiety?? At risk for falls?? Bradycardia?? Breast pain?? Cervical radiculopathy?? Chronic respiratory failure with hypoxia?? Compression fracture of lumbar vertebra?? Compression fracture of spine?? Constipation?? End stage COPD?? Hyperlipidemia?? Leg swelling?? Osteoporosis?? Paroxysmal atrial flutter?? Peripheral neuropathy?? Pulmonary nodule?? Raynaud's phenomenon?? Rectal bleed?? T12 compression fracture?? Thoracic compression fracture?? Underweight?? Education Materials Below is the list of Educational Leaflet Providered with your Discharge Instructions. Valuables and Belongings I fully understand and agree that [facility] accepts no responsibility for all my [...] to send valuables and belongings home. ?? No Valuables/Belongings: No valuables/belongings present Review of Valuable and Belonging List: With patient Date for Pt to Sign Valuables/Belongings: 04/15/23 16:54:00 ?? Other Discharge Information ? Pulmonary Rehab [...] are strongly encouraged to quit. Please call [facility] [employer] [facility] at [phone] or [phone] ([phone]) or log in to [email or web address] for referrals to smoking cessation programs. ?? 338 Suicide & Crisis Lifeline is available 24/05 if you or someone you know needs to find a reason to keep living. By calling 863 you'll be connected to a skilled, trained counselor at a crisis center in your area. INPATIENT DISCHARGE INSTRUCTIONS SIGNATURE PAGE KATERINE NICOLE Location:[facility] Registration Date and Time:04/14/2023 14:55 EDT Primary Care Physician: Graciela Nunez MD, Attending Physician: Davian Wright MD, I KATERINE NICOLE, have received the above patient education materials/instructions and have verbalized understanding. If ambulance or transport services are being used I further acknowledge being given a choice of service. ?? If you need to contact me, please call me at this number: . Patient/Laser Cutter Name: Patient/Laser Cutter Signature: Relationship to Patient: Witness Name/Signature: Date: * Damari LUIS, Erica Lares: PERFORM Event Display: Patient Education Leaflets Authored Date: [id number] Chronic Lung Disease:??Controlling Stress ?? 85250 Chronic Lung Disease:??Controlling Stress Stress and anxiety can make breathing harder. When it???s hard to breathe, it???s natural to get anxious and start to panic. This makes you even more short of breath. This sequence is known as the dyspnea cycle. It???s common among people with chronic lung disease. Talk with your healthcare provider about how you're feeling. It's important for them to understand what's going on and how it's affecting your life. Breathing training and coping methods can help you manage stress and anxiety. Understanding the cycle When you???re short of breath, your breathing muscles get tense. It???s hard to take a deep breath.You may worry that you???re not getting enough air. Then you start breathing faster. And you becomemore short of breath. You may even start to panic. This makes symptoms seem worse. Often, people with chronic lung disease try to prevent this cycle. They limit their activity, stay at home, and don't do anything that could cause shortness of breath. You don???t have to live this way.? Ways to relax When you find yourself getting stressed or anxious, make an effort to relax. Doing so will help break the dyspnea cycle. Sit in a quiet, comfortable place. Do pursed-lip and diaphragmatic breathing. You may also find these things helpful: ??? Activities that help you relax. These can include reading a good book, listening to music or relaxation tapes, practicing yoga or bryan chi, meditating, and praying. Find things that work for you. ??? Visualization. Picture yourself in a peaceful place, suchas the beach. Feel the warm sand. Hear the waves. Smell the ocean. Doing this may help you feel more relaxed. ??? Medicines that can help make breathing easier. Your healthcare provider may advise using a bronchodilator along other relaxation methods. ?Tips To prevent shortness of breath from limiting your life: ??? Right now.??Learn to stop an attack with pursed-lip breathing, diaphragmatic breathing, and relaxation methods. If you don???t know how to do these, ask your healthcare provider. ??? In day-to-day life.??Learn to maximize your energy and to breathe during activity. This can help you do more. ??? Over time.??Start exercising. This can help your body start to handle more activity. ?? Last Reviewed Date: 2021 ?? 3176-5506 [employer]. All rights reserved. This information is not intended as a substitute for professional medical care. Always follow your healthcare professional's instructions. ?? * Damari LUIS, Erica Lares: PERFORM Event Display: Patient Education Leaflets Authored Date: [id number] Asthma and COPD ?? 97204 Asthma and COPD Some people have more than one health problem at one time. If you have COPD (chronic obstructive pulmonary disease), you may also have asthma. These two health conditions are considered separate disorders. A person can have both. COPD and asthma have been linked to: ??? People who smoke ??? Heavy smokers who carry genes that cause an allergic inflammatory responseafter an irritant is breathed in When a person has both COPD and asthma, both diseases need to be treated. Cigarette smoking is the main cause of COPD. Two main conditions of COPD are emphysema and chronic bronchitis. The lungs and airways are damaged in both conditions. The damage is most often caused bybreathing in irritants over a long time. Because of this, air doesn???t flow normally through the airways in the lungs. The tubes that carry air in and out of your lungs (airways) can get blocked or collapse. This can cause symptoms that are much the same as asthma. These include shortness of breath, wheezing, chest tightness, and coughing. Asthma is also an ongoing health problem that affects the airways in your lungs. It most often starts in childhood. But it can affect people of all ages. With asthma, the airways become inflamed and narrowed. The muscles around the airways tighten. This makes it hard for air to pass through the airways. If you have asthma, your airways are extra sensitive to things you are allergic to (allergens) and irritants. These might be tobacco smoke, air pollutants, pollen, pets, and sometimes exercise. Theseare called asthma triggers. Even when the lining of your airways are swollen or inflamed, you may not feel symptoms. When you do feel symptoms, your airways may be extra inflamed. You may even have an asthma attack. This is when your airways close so tightly that air can???t get in and out. A moderate asthma flare-up can cause problems breathing. But a severe asthma flare-up or attack sends you to the hospital. Always referto your Asthma Action Plan. It's important to stay away from your triggers to improve these symptoms and help control your asthma. How does asthma raise your risk for COPD? Not everyone who has asthma will develop COPD. But you may be more likely to have COPD later in life if you have asthma. Asthma can harm the airways in your lungs. Over time, chronic mild inflammation can scar the airways. You can have lifelong (permanent) breathing problems. Because of this, the chances of COPD may increase. Smoking increases this risk even more. If you have asthma or COPD symptoms, ask to see a healthcare provider who specializes in allergies (real estate rental agent) or a lung specialist (copyist). ?? Symptoms Many COPD symptoms are the same as asthma symptoms. It can be hard to tell which condition is causing them. Here are some of the most common symptoms of both conditions: ??? Frequent coughing ??? A whistling noise, especially when breathing in or out (wheezing) ??? Chest tightness ??? Trouble breathing ??? Shortness of breath during activities ??? Feeling tired ??? Low energy during physical activities ?? Treatment Both asthma and COPD are ongoing health problems. But there is no cure for asthma or COPD. Treatment plans vary for each person diagnosed with COPD and asthma. Your healthcare providers and allergistwill work with you to make a treatment plan. Your treatment plan may include: ??? Taking medicine. Medicines help treat the symptoms of both COPD and asthma. They can also lower your chances for serious breathing problems. They can help keep you out of the hospital. Take your medicines every day asdirected. If you have asthma, refer to your Asthma Action Plan to control your condition. ??? Quitting smoking. If you smoke, quitting is one of the best things you can do for your health. Quitting can help make your symptoms better. This includes not using e-cigarettes or vaping products. Ask yourhealthcare team for help quitting. ??? Staying away from irritants and triggers. Irritants and triggers for both conditions can include outdoor air pollution, indoor pollution such as burning wood, smoke from home cooking, and heating fuels, chemical fumes, environmental dust, e- cigarettes, and smoke, including secondhand tobacco smoke. Other common asthma triggers include pollen, dust mites, cockroach droppings, pets, mold, strong smells, weather changes, especially cold weather, strong emotions, such as crying or laughing, and exercise. For asthma, knowing your triggers and staying away from them can prevent symptoms and flare-ups (asthma attacks). Always keep your Asthma Action Plan and rescue medicine with you. ??? Oxygen therapy if you have COPD. When the level of oxygen in the bloodis too low, your healthcare provider may prescribe oxygen. Or extra oxygen may be given when the lungs can???t get enough oxygen to the blood. ??? Joining pulmonary rehab. Pulmonary rehab is a program that gives you the skills you need to manage both COPD and asthma in your daily life. Rehab can bedone in the community, at home, or in the hospital. Any of these places work as long as how often you attend and how hard you work out are the same. The gold standard rehab is traditional pulmonary rehab supervised by healthcare specialists. Ask your provider if these types of programs are available for your pulmonary rehab. Also discuss with your healthcare provider which rehab program is bestfor you. ?? Self-care tips There are things you can do to help manage both your asthma and COPD: ??? Stop smoking. As soon as you quit, you stop further damage to your lungs. If you need help to stop smoking, talk with your healthcare provider. Don't use e- cigarettes or vaping products. ??? Stayaway from secondhand smoke and other irritants. Try to stay away from smoke, chemicals, fumes, pollen, and dust. Don???t let anyone smoke in your home or use e-cigarettes or vaping products. Stay indoors on smoggy days. ??? Prevent lung infections. Having COPD increases your risk for respiratory infections. Ask your healthcare provider about the flu, COVID-19, and pneumonia vaccines. Take steps to prevent colds and other lung infections. ??? Practice correct handwashing. Wash your hands often with soap and clean, running water. Scrub for 20 seconds. Use hand purchasing contracting clerk when you can???t wash your hands. Stay away from crowds during cold and flu season. ??? Drink water. This helps make mucus thinner and easier to cough up. Ask your provider how much water you should drink. For many people, 6to 8 glasses (8 ounces each) a day is a good goal unless directed otherwise. ??? Clear your airway.When your lungs make a lot of mucus or it's hard to cough up, airway clearing methods can help. These include coughing methods and postural drainage. Keeping your lungs clear of mucus helps prevent shortness of breath and other symptoms. Ask your healthcare provider about these methods. ??? Do breathing exercises. Learn how to do belly breathing and pursed-lip breathing. Do these exercises while you are working. They can help you breathe better. Taking slow, deep breaths at any time can give you more of the oxygen you need. ??? Eat well. When you???re tired, you may not be eating as well as you should. Poor nutrition can make symptoms worse. It can also raise your risk for infections. Try resting before eating. Eat smaller meals during the day. Ask your healthcare provider if you should take vitamins or supplements. ??? Stay at a healthy weight. Being underweight can limit your energy. Being overweight can make shortness of breath worse. People with COPD who have a low body mass indexmay have more problems. Work with your provider to find out the best weight for you. ??? Balance act ivity and rest. This can help you from getting overtired. Stop and rest before you feel worn out. If an activity takes a lot of energy, break it into parts. For instance, fold the laundry first. Thenhave a rest before putting it away. Focus on the activities that are most important. ??? Save your energy. The way you use your body during a task can help you have more energy. Do activities slowly.Rushing through activities uses more energy. It can also increase shortness of breath. Sit to dressand to do other daily tasks, such as brushing your teeth. Use a cart with wheels to move food, laundry, and other items around your house. Keep the things you use often at waist level, so you can getthem easily. ??? Don???t be afraid to be active. Being active may make you short of breath. Even so, it's good for your lungs. Exercise can strengthen the muscles that help you breathe. Ask your provider about safe exercises for you. ?? Last Reviewed Date: 2022 ?? 9689-6805 [employer]. All rights reserved. This information is not intended as a substitute for professional medical care. Always follow your healthcare professional's instructions. ?? * Damari LUIS, Erica Lares: PERFORM Event Display: Patient Education Leaflets Authored Date: [id number] Asthma and COPD ?? 54669 Asthma and COPD Some people have more than one health problem at one time. If you have COPD (chronic obstructive pulmonary disease), you may also have asthma. These two health conditions are considered separate disorders. A person can have both. COPD and asthma have been linked to: ??? People who smoke ??? Heavy smokers who carry genes that cause an allergic inflammatory responseafter an irritant is breathed in When a person has both COPD and asthma, both diseases need to be treated. Cigarette smoking is the main cause of COPD. Two main conditions of COPD are emphysema and chronic bronchitis. The lungs and airways are damaged in both conditions. The damage is most often caused bybreathing in irritants over a long time. Because of this, air doesn???t flow normally through the airways in the lungs. The tubes that carry air in and out of your lungs (airways) can get blocked or collapse. This can cause symptoms that are much the same as asthma. These include shortness of breath, wheezing, chest tightness, and coughing. Asthma is also an ongoing health problem that affects the airways in your lungs. It most often starts in childhood. But it can affect people of all ages. With asthma, the airways become inflamed and narrowed. The muscles around the airways tighten. This makes it hard for air to pass through the airways. If you have asthma, your airways are extra sensitive to things you are allergic to (allergens) and irritants. These might be tobacco smoke, air pollutants, pollen, pets, and sometimes exercise. Theseare called asthma triggers. Even when the lining of your airways are swollen or inflamed, you may not feel symptoms. When you do feel symptoms, your airways may be extra inflamed. You may even have an asthma attack. This is when your airways close so tightly that air can???t get in and out. A moderate asthma flare-up can cause problems breathing. But a severe asthma flare-up or attack sends you to the hospital. Always referto your Asthma Action Plan. It's important to stay away from your triggers to improve these symptoms and help control your asthma. How does asthma raise your risk for COPD? Not everyone who has asthma will develop COPD. But you may be more likely to have COPD later in life if you have asthma. Asthma can harm the airways in your lungs. Over time, chronic mild inflammation can scar the airways. You can have lifelong (permanent) breathing problems. Because of this, the chances of COPD may increase. Smoking increases this risk even more. If you have asthma or COPD symptoms, ask to see a healthcare provider who specializes in allergies (real estate rental agent) or a lung specialist (copyist). ?? Symptoms Many COPD symptoms are the same as asthma symptoms. It can be hard to tell which condition is causing them. Here are some of the most common symptoms of both conditions: ??? Frequent coughing ??? A whistling noise, especially when breathing in or out (wheezing) ??? Chest tightness ??? Trouble breathing ??? Shortness of breath during activities ??? Feeling tired ??? Low energy during physical activities ?? Treatment Both asthma and COPD are ongoing health problems. But there is no cure for asthma or COPD. Treatment plans vary for each person diagnosed with COPD and asthma. Your healthcare providers and allergistwill work with you to make a treatment plan. Your treatment plan may include: ??? Taking medicine. Medicines help treat the symptoms of both COPD and asthma. They can also lower your chances for serious breathing problems. They can help keep you out of the hospital. Take your medicines every day asdirected. If you have asthma, refer to your Asthma Action Plan to control your condition. ??? Quitting smoking. If you smoke, quitting is one of the best things you can do for your health. Quitting can help make your symptoms better. This includes not using e-cigarettes or vaping products. Ask yourhealthcare team for help quitting. ??? Staying away from irritants and triggers. Irritants and triggers for both conditions can include outdoor air pollution, indoor pollution such as burning wood, smoke from home cooking, and heating fuels, chemical fumes, environmental dust, e- cigarettes, and smoke, including secondhand tobacco smoke. Other common asthma triggers include pollen, dust mites, cockroach droppings, pets, mold, strong smells, weather changes, especially cold weather, strong emotions, such as crying or laughing, and exercise. For asthma, knowing your triggers and staying away from them can prevent symptoms and flare-ups (asthma attacks). Always keep your Asthma Action Plan and rescue medicine with you. ??? Oxygen therapy if you have COPD. When the level of oxygen in the bloodis too low, your healthcare provider may prescribe oxygen. Or extra oxygen may be given when the lungs can???t get enough oxygen to the blood. ??? Joining pulmonary rehab. Pulmonary rehab is a program that gives you the skills you need to manage both COPD and asthma in your daily life. Rehab can bedone in the community, at home, or in the hospital. Any of these places work as long as how often you attend and how hard you work out are the same. The gold standard rehab is traditional pulmonary rehab supervised by healthcare specialists. Ask your provider if these types of programs are available for your pulmonary rehab. Also discuss with your healthcare provider which rehab program is bestfor you. ?? Self-care tips There are things you can do to help manage both your asthma and COPD: ??? Stop smoking. As soon as you quit, you stop further damage to your lungs. If you need help to stop smoking, talk with your healthcare provider. Don't use e- cigarettes or vaping products. ??? Stayaway from secondhand smoke and other irritants. Try to stay away from smoke, chemicals, fumes, pollen, and dust. Don???t let anyone smoke in your home or use e-cigarettes or vaping products. Stay indoors on smoggy days. ??? Prevent lung infections. Having COPD increases your risk for respiratory infections. Ask your healthcare provider about the flu, COVID-19, and pneumonia vaccines. Take steps to prevent colds and other lung infections. ??? Practice correct handwashing. Wash your hands often with soap and clean, running water. Scrub for 20 seconds. Use hand purchasing contracting clerk when you can???t wash your hands. Stay away from crowds during cold and flu season. ??? Drink water. This helps make mucus thinner and easier to cough up. Ask your provider how much water you should drink. For many people, 6to 8 glasses (8 ounces each) a day is a good goal unless directed otherwise. ??? Clear your airway.When your lungs make a lot of mucus or it's hard to cough up, airway clearing methods can help. These include coughing methods and postural drainage. Keeping your lungs clear of mucus helps prevent shortness of breath and other symptoms. Ask your healthcare provider about these methods. ??? Do breathing exercises. Learn how to do belly breathing and pursed-lip breathing. Do these exercises while you are working. They can help you breathe better. Taking slow, deep breaths at any time can give you more of the oxygen you need. ??? Eat well. When you???re tired, you may not be eating as well as you should. Poor nutrition can make symptoms worse. It can also raise your risk for infections. Try resting before eating. Eat smaller meals during the day. Ask your healthcare provider if you should take vitamins or supplements. ??? Stay at a healthy weight. Being underweight can limit your energy. Being overweight can make shortness of breath worse. People with COPD who have a low body mass indexmay have more problems. Work with your provider to find out the best weight for you. ??? Balance act ivity and rest. This can help you from getting overtired. Stop and rest before you feel worn out. If an activity takes a lot of energy, break it into parts. For instance, fold the laundry first. Thenhave a rest before putting it away. Focus on the activities that are most important. ??? Save your energy. The way you use your body during a task can help you have more energy. Do activities slowly.Rushing through activities uses more energy. It can also increase shortness of breath. Sit to dressand to do other daily tasks, such as brushing your teeth. Use a cart with wheels to move food, laundry, and other items around your house. Keep the things you use often at waist level, so you can getthem easily. ??? Don???t be afraid to be active. Being active may make you short of breath. Even so, it's good for your lungs. Exercise can strengthen the muscles that help you breathe. Ask your provider about safe exercises for you. ?? Last Reviewed Date: 2022 ?? [id number] [employer]. All rights reserved. This information is not intended as a substitute for professional medical care. Always follow your healthcare professional's instructions. ?? Patient Care team information Care Team Personnel Name: Morgan Abbott MD Position: [facility] Renal MD Member Role: Lifetime Consulting Physician Address: Address: [address] [place] [address], [address] [place], [place] [address] Name: Graciela Nunez MD Position: [facility] Physician - Primary Care Member Role: PCP Address: Address: [address] [place] [address]- Name: Maryam Camara RN Position: [facility] RN Member Role: Primary Care Nurse Name: Rylie Francois RN Position: S RN Member Role: Primary Care Nurse Name: Luisa Storey RN Position: [facility] RN Member Role: Primary Care Nurse Name: Paty Ventura RN Position: [facility] RN Member Role: Primary Care Nurse Name: Ninfa Soto RN Position: [facility] RN Member Role: Primary Care Nurse Name: Romeo Reid MD Position: [facility] Renal MD Member Role: Lifetime Consulting Physician Address: Address: [address] [place] [address] [address] [facility] [place] [address]- Name: Olga Valladares RN Position: S RN Member Role: Primary Care Nurse Name: Ruby Alexandre RN Position: S RN Member Role: Primary Care Nurse Address: Address: [address] [place] [address]- Name: Celso Lawson MD Position: [facility] Renal MD Member Role: Lifetime Consulting Physician Address: Address: [address] [place] [address] [facility] [place] [address]- Name: Chloe Fisher LPN Position: [facility] RN Member Role: Primary Care Nurse Name: Naomi RAINEY Attending Position: [facility] ED Medicine MD Name: Alicia Tipton RN Position: [facility] ED RN W/OE and Tasks Member Role: Patient Care Provider Name: Katy Rios Position: [facility] ED TA [facility] Member Role: Snuff Container Inspector Care Team Related Persons Name: LAZARUS OSBORNE Address: [place] [address] Name: KAVON NICOLE Address: [address] [place] [address] Name: , [facility] NONE
--- OUTSIDE RECORDS SUMMARY | 2023-08-21 08:42 | XMS_ITS | Continuity of Care Document ---
Author Name Unknown Organization [facility] Address [address] [place] [address]- Care Team Providers Care Bundle Clerk Name Role Phone Graciela Nunez MD Primary Care Physician Encounter [facility] Date(s): 12/15/22 - 01/14/23 [facility] [address] [place], [place] [address] Allergies, Adverse Reactions, Alerts [...] 23-valent vaccine 6 07/31/10 Recorded 1Result Comment: [id number] given w/out incident 2Location History: [place], [place] 3Admin Note: done @ dr jones office 4Location History: [facility] 5Location History: [facility] 6Location [...] 12/28/22 16:00:00 EST, Route to Pharmacy Electronically, [facility]/pharmacy #[id number], Partial fillupon patient request if the prescription is for a s... Start Date: 12/28/22 Stop Date: 02/08/23 Status: Ordered busPIRone 10 mg oral tablet 1, tablet, By Mouth, 3 times a day, # 270 tablet, Refills 1, Maintenance, 11/12/22 17:44:00 EST, Route to Pharmacy Electronically, [id number], 170, cm, 02/04/22 11:19:00 EDT, Height, 44.1, kg, 12/20/21 16:05:00 EST, Dry Weight Start Date: 11/12/22 Status: Ordered calcium-vitamin D 600 mg-400 intl units oral tablet 1 tablet, By Mouth, 2 times a day, # 60 tablet, 6 Refills, Maintenance, 05/15/22 16:21:00 EDT, Tablet, [facility] #[id number], Partial fill upon patient request if the prescription is for a schedule II opioid drug., 1 tablet By Mouth 2 times a da... Start Date: 05/15/22 Status: Ordered Colace sodium 100 mg oral capsule 100 mg, 1, capsule, By Mouth, 2 times a day, PRN, # 180 capsule, Refills 1, Tot. Refills 1, Maintenance, for constipation, 06/23/22 10:20:00 EDT, Route to Pharmacy Electronically, [facility]/pharmacy #[id number],prefers gel formulation, 170, cm, 02/04/22 11:19:00... Start Date: 06/23/22 Status: Ordered Flonase 50 mcg/inh nasal spray 1 sprays, Nares, Both, Daily in AM, # 16 Gm, 4 Refills, Maintenance, 12/03/21 12:34:00 EST, [place], [facility] #[id number], Partial fill upon patient request if the prescription is for a scheduleII opioid drug., 1 sprays Nares, Both Daily in AM,... Start Date: 12/03/21 Status: Ordered folic acid 1 mg oral tablet 1 mg, 1, tablet, By Mouth, Daily, # 30 tablet, Refills 11, Tot. Refills 11, Maintenance, 12/03/22 9:01:00 EST, [id number], cm, 02/04/22 11:19:00 EDT, Height, 44.1, kg, 12/20/21 16:05:00 EST, Dry Weight Start Date: 12/03/22 Status: Ordered gabapentin 300 mg oral capsule 2, capsule, By Mouth, 3 times a day, # 180 capsule, Refills 5, Tot. Refills 5, Maintenance, 08/13/22 13:03:00 EDT, [id number] 170, cm, 02/04/22 11:19:00 EDT, Height, 44.1, kg, 12/20/21 16:05:00 EST, Dry Weight Start Date: 08/13/22 Status: Ordered Hair, Skin & Nails 5 mg oral capsule 1 capsule = 5 mg, By Mouth, Daily, # 90 capsule, 3 Refills, Maintenance, 02/19/22 12:29:00 EDT, [facility] #[id number], Partial fill upon patient request if the prescription is for a schedule IIopioid drug., 1 capsule By Mouth Daily, 170, cm, 04... Start Date: 02/19/22 Status: Ordered hydrOXYzine hydrochloride 10 mg oral tablet 1 tablet = 10 mg, By Mouth, 3 times a day, PRN NEEDED FOR ANXIETY, # 90 tablet, 3 Refills, Maintenance, 12/27/22 11:47:00 EST, [facility]/pharmacy #[id number], 170, cm, 02/04/22 11:19:00 EDT, Height, 44.1, kg,12/20/21 16:05:00 EST, Dry Weight Start Date: 12/27/22 Status: Ordered lactulose 10 gm/15 ml oral syrup 15 mL = 10 Gm, By Mouth, Every 72 hours, PRN as needed for constipation, # 300 mL, 5 Refills, Maintenance, 03/19/22 14:45:00 EDT, Syrup, [facility] #[id number], Partial fill upon patient requestif the prescription is for a schedule II opioid ivonne... Start Date: 03/19/22 Status: Ordered LORazepam 0.5 mg oral tablet 1 tablet = 0.5 mg, By Mouth, 3 times a day, # 60 tablet, 1 Refills, Maintenance, 01/06/23 15:58:00 EST, Tablet, [facility]/pharmacy #[id number], Partial fill upon patient [...] Refills, Maintenance, 12/16/22 9:12:00 EST, Capsule, [facility]/pharmacy #[id number], Partial fill upon patient [...] 12/03/22 8:52:00 EST, Route to Pharmacy Electronically, [facility]/pharmacy #[id number], Partial fill upon patient [...] 21 tablet, 3 Refills, 12/03/22 8:53:00 EST, [facility]/pharmacy #[id number], 170, cm, 02/04/22 11:19:00 EDT, Height, 44.1, kg, 12/20/21 16:0... Start Date: 12/03/22 Status: Ordered Tylenol 8 HR Arthritis Pain 650 mg oral tablet, extended release 1 tablet = 650 mg, By Mouth, Every 8 hours, PRN Pain , Moderate, # 100 tablet, 1 Refills, Maintenance, 02/26/21 15:47:00 EDT, ER Tablet, [facility] #[id number], Partial fill upon patient requestif the prescription [...] Nurse Name: Milena ORTIZ, Morgan Hancock Position: [facility] Renal MD Member Role: Lifetime Consulting Physician Address: Address: [address] [facility] [address], [address] [place] [address]- [place] Name: Graciela Nunez MD Position: [facility] Primary Care Physician Member Role: PCP Address: Address: [address] [place] [address]- [place] Name: Luisa Storey RN Position: [facility] RN Member Role: Primary Care Nurse Care Team Related Persons Name: LAZARUS OSBORNE Address: [place] [address] Name: KAVON NICOLE Address: [address] [place] [address] Name: [facility] NONE
--- OUTSIDE RECORDS SUMMARY | 2023-08-21 08:42 | XMS_ITS | Continuity of Care Document ---
Author Name Unknown Organization [facility] Address [address] [place] [address]- Care Team Providers Care Pull Tab Dealer Name Role Phone Graciela Nunez MD Primary Care Physician Encounter [facility] Date(s): 05/18/22 - 06/17/22 [facility] [address] [place], [place] [address] Allergies, Adverse Reactions, Alerts Substance [...] 23-valent vaccine 6 07/31/10 Recorded 1Result Comment: [id number] given w/out incident 2Location History: [place], [place] 3Admin Note: done @ dr jones office 4Location History: [facility] 5Location History: [facility] 6Location History: [facility] Medications aspirin 81 mg oral delayed [...] 3 Refills, Maintenance, 04/09/22 9:54:00 EDT, Tablet, [facility] #[id number], Partial fill upon patient request if the prescription is for a schedule II opioid drug., 1 tablet By Mouth Daily, 170, cm, 02/04... Start Date: 04/09/22 Status: Ordered busPIRone 10 mg oral tablet 10 mg, 1, tablet, By Mouth, 3 times a day, # 90 tablet, Refills 1, Tot. Refills 1, Maintenance, 04/28/22 16:25:00 EDT, Route to Pharmacy Electronically, [facility] #[id number], new dosage, 170, cm, 02/04/22 11:19:00 EDT, Height, 44.1, kg, ... Start Date: 04/28/22 Status: Ordered calcium (as carbonate)-vitamin D 500 mg-400 intl units oral tablet 1 tablet, By Mouth, 2 times a day, calcium 500/vitamin d 400 iu twice daily, # 60 tablet, 6 Refills, Maintenance, 02/11/22 10:15:00 EDT, Tablet, [facility] #[id number], Partial fill upon patientrequest if the prescription is for a schedule II op... Start Date: 02/11/22 Status: Ordered calcium-vitamin D 600 mg-400 intl units oral tablet 1 tablet, By Mouth, 2 times a day, # 60 tablet, 6 Refills, Maintenance, 05/15/22 16:21:00 EDT, Tablet, [facility] #[id number], Partial fill upon patient request if the prescription is for a schedule II opioid drug., 1 tablet By Mouth 2 times a da... Start Date: 05/15/22 Status: Ordered Colace sodium 100 mg oral capsule 100 mg, 1, capsule, By Mouth, 2 times a day, PRN, # 180 capsule, Refills 1, Tot. Refills 1, Maintenance, for constipation, 06/17/22 11:03:00 EDT, Route to Pharmacy Electronically, [facility]/pharmacy #[id number],prefers gel formulation, 170, cm, 02/04/22 11:19:00... Start Date: 06/17/22 Status: Ordered diltiazem 180 mg/24 hours oral capsule, extended release 180 mg, 1, capsule, By Mouth, Daily, # 30 capsule, Refills 0, Tot. Refills 0, Maintenance, 11/06/2209:09:00 EST, Route to Pharmacy Electronically, [facility] #[id number], Partial fill upon patient request if the prescription is for a schedule II... Start Date: 11/06/21 Status: Ordered Flonase 50 mcg/inh nasal spray 1 sprays, Nares, Both, Daily in AM, # 16 Gm, 4 Refills, Maintenance, 12/03/21 12:34:00 EST, [place], [facility] #[id number], Partial fill upon patient request if the prescription is for a scheduleII opioid drug., 1 sprays Nares, Both Daily in AM,... Start Date: 12/03/21 Status: Ordered folic acid 1 mg oral tablet 1 mg, 1, tablet, By Mouth, Daily, # 30 tablet, Refills 11, Tot. Refills 11, Maintenance, 02/25/22 16:15:00 EDT, Route to Pharmacy Electronically, [facility] #[id number], 170, cm, 02/04/22 11:19:00 EDT, Height, 44.1, [...] 02/09/22 15:13:00 EDT, Route to Pharmacy Electronically, [facility] #[id number], 170, cm, 02/04/22 11:19:00 EDT, Height, 44.1, kg, 12/20/21 16:05:00 EST,... Start Date: 02/09/22 Status: Ordered Hair, Skin & Nails 5 mg oral capsule 1 capsule = 5 mg, By Mouth, Daily, # 90 capsule, 3 Refills, Maintenance, 02/19/22 12:29:00 EDT, [facility] #[id number], Partial fill upon patient request if the prescription is for a schedule IIopioid drug., 1 capsule By Mouth Daily, 170, cm, 04... Start Date: 02/19/22 Status: Ordered hydrOXYzine hydrochloride 10 mg oral tablet 1-2 TABLETS, By Mouth, 2 times a day, PRN NEEDED FOR ANXIETY, # 60 tablet, 3 Refills, [id number], 170, cm, 02/04/22 11:19:00 EDT, Height, 44.1, kg, 12/20/21 16:05:00 EST, Dry Weight Start Date: 05/27/22 Status: Ordered lactulose 10 gm/15 ml oral syrup 15 mL = 10 Gm, By Mouth, Every 72 hours, PRN as needed for constipation, # 300 mL, 5 Refills, Maintenance, 03/19/22 14:45:00 EDT, Syrup, [facility] #[id number], Partial fill upon patient requestif the prescription is for a schedule II opioid ivonne... Start Date: 03/19/22 Status: Ordered LORazepam 0.5 mg oral tablet 1 tablet = 0.5 mg, By Mouth, 3 times a day, # 60 tablet, 3 Refills, Maintenance, 04/28/22 16:24:00 EDT, Tablet, [facility] #[id number], Partial fill upon patient request if the [...] 10/22/21 15:09:00 EST, Route to Pharmacy Electronically, [facility] #[id number] Tablet, Partial fill upon patient request... Start [...] Refills, Maintenance, 02/26/21 15:47:00 EDT, ER Tablet, [facility] #[id number], Partial fill upon patient requestif the prescription is for a schedule II opioid ivonne... Start Date: 02/26/21 Status: Ordered Ventolin HFA 108 mcg/inh inhalation aerosol with adapter 2 puffs, Inhalation, 4 times a day, PRN for wheezing, # 1 each, 0 Refills, Maintenance, 10/02/20 10:55:00 EST, Aerosol, [facility]/pharmacy #[id number], 170, cm, 10/02/20 10:06:00 EST, Height, 56.3, kg, 11/24/19 22:58:00 EST, Dry Weight Start Date: 10/02/20 Status: Ordered Vitamin D3 1000 intl units oral capsule 1 capsule = 25 mcg, By Mouth, Daily, # 30 capsule, 11 Refills, Maintenance, 12/02/21 10:55:00 EST, Capsule, [facility] #[id number], Partial fill upon patient request if the [...]
--- OUTSIDE RECORDS SUMMARY | 2023-08-21 08:42 | XMS_ITS | Continuity of Care Document ---
Author Name Unknown Organization [facility] Address [address] [place] [address]- Care Team Providers Care Waxer Tender Name Role Phone Graciela Nunez MD Primary Care Physician Encounter [facility] Date(s): 06/24/22 - 07/24/22 [facility] [address] [place], [place] [address] Allergies, Adverse Reactions, Alerts [...] 23-valent vaccine 6 07/31/10 Recorded 1Result Comment: [id number] given w/out incident 2Location History: [place], [place] 3Admin Note: done @ dr jones office 4Location History: [facility] 5Location History: [facility] [...] 3 Refills, Maintenance, 04/09/22 9:54:00 EDT, Tablet, [facility] #[id number], Partial fill upon patient request if the prescription is for a schedule II opioid drug., 1 tablet By Mouth Daily, 170, cm, 02/04... Start Date: 04/09/22 Status: Ordered busPIRone 10 mg oral tablet 10 mg, 1, tablet, By Mouth, 3 times a day, # 90 tablet, Refills 1, Tot. Refills 1, Maintenance, 06/24/22 11:21:00 EDT, Route to Pharmacy Electronically, [facility]/pharmacy #[id number], new dosage, 170, cm, 02/04/22 11:19:00 EDT, Height, 44.1, kg, 12/20/21 16:05:0... Start Date: 06/24/22 Status: Ordered calcium (as carbonate)-vitamin D 500 mg-400 intl units oral tablet 1 tablet, By Mouth, 2 times a day, calcium 500/vitamin d 400 iu twice daily, # 60 tablet, 6 Refills, Maintenance, 02/11/22 10:15:00 EDT, Tablet, [facility] #[id number], Partial fill upon patientrequest if the prescription is for a schedule II op... Start Date: 02/11/22 Status: Ordered calcium-vitamin D 600 mg-400 intl units oral tablet 1 tablet, By Mouth, 2 times a day, # 60 tablet, 6 Refills, Maintenance, 05/15/22 16:21:00 EDT, Tablet, [facility] #[id number], Partial fill upon patient request if the prescription is for a schedule II opioid drug., 1 tablet By Mouth 2 times a da... Start Date: 05/15/22 Status: Ordered Colace sodium 100 mg oral capsule 100 mg, 1, capsule, By Mouth, 2 times a day, PRN, # 180 capsule, Refills 1, Tot. Refills 1, Maintenance, for constipation, 06/23/22 10:20:00 EDT, Route to Pharmacy Electronically, [facility]/pharmacy #[id number],prefers gel formulation, 170, cm, 02/04/22 11:19:00... Start Date: 06/23/22 Status: Ordered diltiazem 180 mg/24 hours oral capsule, extended release 180 mg, 1, capsule, By Mouth, Daily, # 30 capsule, Refills 0, Tot. Refills 0, Maintenance, 11/06/2209:09:00 EST, Route to Pharmacy Electronically, [facility] #[id number], Partial fill upon patient request if the prescription is for a schedule II... Start Date: 11/06/21 Status: Ordered Flonase 50 mcg/inh nasal spray 1 sprays, Nares, Both, Daily in AM, # 16 Gm, 4 Refills, Maintenance, 12/03/21 12:34:00 EST, [place], [facility] #[id number], Partial fill upon patient request if the prescription is for a scheduleII opioid drug., 1 sprays Nares, Both Daily in AM,... Start Date: 12/03/21 Status: Ordered folic acid 1 mg oral tablet 1 mg, 1, tablet, By Mouth, Daily, # 30 tablet, Refills 11, Tot. Refills 11, Maintenance, 02/25/22 16:15:00 EDT, Route to Pharmacy Electronically, [facility] #[id number], 170, cm, 02/04/22 11:19:00 EDT, Height, 44.1, [...] 02/09/22 15:13:00 EDT, Route to Pharmacy Electronically, [facility] #[id number], 170, cm, 02/04/22 11:19:00 EDT, Height, 44.1, kg, 12/20/21 16:05:00 EST,... Start Date: 02/09/22 Status: Ordered Hair, Skin & Nails 5 mg oral capsule 1 capsule = 5 mg, By Mouth, Daily, # 90 capsule, 3 Refills, Maintenance, 02/19/22 12:29:00 EDT, [facility] #[id number], Partial fill upon patient request if the prescription is for a schedule IIopioid drug., 1 capsule By Mouth Daily, 170, cm, 04... Start Date: 02/19/22 Status: Ordered hydrOXYzine hydrochloride 10 mg oral tablet 1-2 TABLETS, By Mouth, 2 times a day, PRN NEEDED FOR ANXIETY, # 60 tablet, 3 Refills, [facility] [id number], 170, cm, 02/04/22 11:19:00 EDT, Height, 44.1, kg, 12/20/21 16:05:00 EST, Dry Weight Start Date: 05/27/22 Status: Ordered lactulose 10 gm/15 ml oral syrup 15 mL = 10 Gm, By Mouth, Every 72 hours, PRN as needed for constipation, # 300 mL, 5 Refills, Maintenance, 03/19/22 14:45:00 EDT, Syrup, [facility] #[id number], Partial fill upon patient requestif the prescription is for a schedule II opioid ivonne... Start Date: 03/19/22 Status: Ordered LORazepam 0.5 mg oral tablet 1 tablet = 0.5 mg, By Mouth, 3 times a day, # 60 tablet, 3 Refills, Maintenance, 07/08/22 17:11:00 EDT, Tablet, [facility]/pharmacy #[id number], Partial fill upon patient request if the [...] 10/22/21 15:09:00 EST, Route to Pharmacy Electronically, [facility] #[id number] Tablet, Partial fill upon patient request... Start [...] Refills, Maintenance, 02/26/21 15:47:00 EDT, ER Tablet, [facility] #[id number], Partial fill upon patient requestif the prescription [...] 11 Refills, Maintenance, 12/02/21 10:55:00 EST, Capsule, [facility] #[id number], Partial fill upon patient request if the [...] Team Personnel Name: Graciela Nunez MD Address: [address] [place] [address]
--- OUTSIDE RECORDS SUMMARY | 2023-08-21 08:43 | XMS_ITS | Continuity of Care Document ---
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 Name Role Phone Graciela Nunez MD Primary Care Physician [place] [facility] [place] 07/06/23 - 08/05/23 [facility] [address] [place], [place] [address] Allergies, Adverse Reactions, Alerts [...] 23-valent vaccine 6 07/31/10 Recorded 1Result Comment: [id number] given w/out incident 2Location History: [place], [place] 3Admin Note: done @ dr jones office 4Location History: [facility] 5Location History: [facility] 6Location History: [facility] Medications acetaminophen 325 mg [...] EST, Route to Pharmacy Electronically, [facility]/pharmacy #[id number], 170, cm, 02/04/22 11:19:00 EDT, Height, 44.1, kg, 12/20/21 16:05:00 EST, Dry Weight Start Date: 12/03/22 Status: Ordered gabapentin 300 mg oral capsule 2, capsule, By Mouth, 3 times a day, # 180 capsule, Refills 5, Tot. Refills 5, Maintenance, 08/13/22 13:03:00 EDT, Route to Pharmacy Electronically, [facility]/pharmacy #[id number], 170, cm, 02/04/22 11:19:00 EDT, Height, 44.1, kg, 12/20/21 16:05:00 EST, Dry Weight Start Date: 08/13/22 Status: Ordered hydrOXYzine hydrochloride 10 mg oral tablet 3 tablet = 30 mg, By Mouth, 3 times a day, PRN NEEDED FOR ANXIETY, # 270 tablet, 3 Refills, Maintenance, 03/01/23 12:03:00 EDT, [facility]/pharmacy #[id number], 170, cm, 02/04/22 11:19:00 [...] opioid drug. Start Date: 08/05/23 Status: Ordered Metoprolol Succinate ER 25 mg [...] Care Nurse Name: Belgica Mckeon RN Position: [facility] RN Member Role: Primary Care Nurse Name: Morgan Abbott MD Position: [facility] Renal MD Member Role: Lifetime Consulting Physician Address: Address: [address] [place] [address], [address] Name: Bernice Molina RN Position: S RN Member Role: Primary Care Nurse Name: Graciela Nunez MD Position: [facility] Physician - Primary Care Member Role: PCP Address: Address: [address] [place] [address]- Name: Maryam Camara RN Position: S RN Member Role: Primary Care Nurse Name: Josemanuel Hawkins RN Position: S RN Member Role: Primary Care Nurse Name: Milana Garland RN Position: S RN Member Role: Primary Care Nurse Name: Mckay Esquivel MD Position: [facility] Renal MD Member Role: Lifetime Consulting Physician Address: Address: [address] [place] [address], [address] [place] [address]- Name: Rylie Francois RN Position: [facility] RN Member Role: Primary Care Nurse Name: Doris Wells RN Position: [facility] RN Member Role: Primary Care Nurse Name: Luisa Storey RN Position: [facility] RN Member Role: Primary Care Nurse Name: Elizabeth Ferris RN Position: [facility] RN Member Role: Primary Care Nurse Name: Alyssa Johnson RN Position: [facility] RN Member Role: Primary Care Nurse Name: Anabela Beavers Position: [facility] RN Member Role: Primary Care Nurse Name: Tracey Chavez Position: [facility] RN Member Role: Primary Care Nurse Name: Sandy Alba RN Position: [facility] RN Member Role: Primary Care Nurse Name: Jose Sebastian RN Position: [facility] RN Member Role: Primary Care Nurse Name: Angelica Montemayor RN Position: [facility] RN Member Role: Primary Care Nurse Name: Paty Ventura RN Position: [facility] RN Member Role: Primary Care Nurse Name: Ninfa Soto RN Position: [facility] RN Member Role: Primary Care Nurse Name: Romeo Reid MD Position: [facility] Renal MD Member Role: Lifetime Consulting Physician Address: Address: [address] [place] [address] [address] [facility] [place] [address]- Name: Olga Valladares RN Position: [facility] RN Member Role: Primary Care Nurse Name: Karyn Quezada RN Position: [facility] RN Member Role: Primary Care Nurse Name: Ruby Alexandre RN Position: [facility] RN Member Role: Primary Care Nurse Address: Address: [address] [place] [address]- Name: Celso Lawson MD Position: [facility] Renal MD Member Role: Lifetime Consulting Physician Address: Address: [address] [place] [address] [facility] [place] [address]- Name: Alyssa Camacho RN Position: [facility] RN Member Role: Primary Care Nurse Name: Keely Pascal RN Position: [facility] RN Member Role: Primary Care Nurse Name: Chloe Fisher LPN Position: S RN Member Role: Primary Care Nurse Care Team Related Persons Name: LAZARUS OSBORNE Address: [place] [address] Name: KIBBE, KAVON Address: home [address] [place] [address] Name: PT, [facility] NONE
--- OUTSIDE RECORDS SUMMARY | 2023-08-21 08:43 | XMS_ITS | Continuity of Care Document ---
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 Name Role Phone Graciela Nunez MD Primary Care Physician [phone] Encounter [facility] Date(s): 11/11/21 - 12/11/21 [facility] [address] [place], [place] [address] Allergies, Adverse Reactions, Alerts Substance [...] 23-valent vaccine 6 07/31/10 Recorded 1Result Comment: [id number] given w/out incident 2Location History: [place], [place] 3Admin Note: done @ dr jones office 4Location History: [facility] 5Location History: [facility] 6Location [...] 10/22/21 15:09:00 EST, Route to Pharmacy Electronically, [facility]#[id number], Partial fill upon patient request if the pr... Start Date: 10/22/21 Status: Ordered diltiazem 180 mg/24 hours oral capsule, extended release 180 mg, 1, capsule, By Mouth, Daily, # 30 capsule, Refills 0, Tot. Refills 0, Maintenance, 11/06/2209:09:00 EST, Route to Pharmacy Electronically, [facility] #[id number], Partial fill upon patient request if the [...] Gm, 4 Refills, Maintenance, 12/03/21 12:34:00 EST, [place], [facility] #[id number], Partial fill upon patient request if the prescription is for a scheduleII opioid drug., 1 sprays Nares, Both Daily in AM,... Start Date: 12/03/21 Status: Ordered folic acid 1 mg oral tablet 1 mg, 1, tablet, By Mouth, Daily, # 30 tablet, Refills 5, Tot. Refills 5, Maintenance, 01/31/21 16:35:00 EDT, Route to Pharmacy Electronically, [facility] #[id number], 170, cm, 10/02/20 10:06:00EST, Height, 56.3, kg, [...] 08/26/21 10:50:00 EDT, Route to Pharmacy Electronically, [facility] #[id number], 162.56, cm, 08/22/21 2:36:00 EDT, Height, 52.65, kg, 08/22/21 2:36:00 EDT... Start Date: 08/26/21 Status: Ordered LORazepam 0.5 mg oral tablet 1 tablet = 0.5 mg, By Mouth, 2 times a day, PRN as needed for anxiety, # 28 tablet, 1 Refills, Maintenance, 12/02/21 10:54:00 EST, [facility] #[id number], 173, cm, 11/06/21 7:58:00 EST, Height, 46.2, kg, 10/29/21 15:33:00 EST, Dry Weight Start Date: 12/02/21 Status: Ordered MiraLax oral powder for reconstitution = 17 Gm, By Mouth, Daily, PRN Constipation, dissolve in water before taking, # 527 Gm, 0 Refills, Maintenance, 10/22/21 15:11:00 EST, REC Powder, [facility] #[id number], Partial fill upon patient request if the prescription is for a schedule II o... Start Date: 10/22/21 Status: Ordered multivitamin Multiple Vitamins oral tablet 1 tablet, By Mouth, Daily, # 30 tablet, 11 Refills, Maintenance, 11/26/21 13:34:00 EST, Tablet, [facility] #[id number], Partial fill upon patient request if the [...] 3 Refills, Maintenance, 03/13/21 13:26:00 EDT, Tablet, [facility] #[id number], 170, cm, 10/02/20 10:06:00 EST, Height, 56.3, kg, 11/24/19 22:58:00 EST, Dry Weight Start Date: 03/13/21 Status: Ordered Senna 8.6 mg oral tablet 17.2 mg, 2, tablet, By Mouth, Daily at bedtime, PRN, # 100 tablet, Refills 0, Tot. Refills 0, Maintenance, for constipation, 10/22/21 15:09:00 EST, Route to Pharmacy Electronically, [facility] #[id number] Tablet, Partial fill upon patient request... Start [...] Refills, Maintenance, 02/26/21 15:47:00 EDT, ER Tablet, [facility] #[id number], Partial fill upon patient requestif the prescription is for a schedule II opioid ivonne... Start Date: 02/26/21 Status: Ordered Ventolin HFA 108 mcg/inh inhalation aerosol with adapter 2 puffs, Inhalation, 4 times a day, PRN for wheezing, # 1 each, 0 Refills, Maintenance, 10/02/20 10:55:00 EST, Aerosol, [facility]/pharmacy #4471, 170, cm, 10/02/20 10:06:00 EST, Height, 56.3, kg, 11/24/19 22:58:00 EST, Dry Weight Start Date: 10/02/20 Status: Ordered Vitamin D3 1000 intl units oral capsule 1 capsule = 25 mcg, By Mouth, Daily, # 30 capsule, 11 Refills, Maintenance, 12/02/21 10:55:00 EST, Capsule, [facility] #[id number], Partial fill upon patient request if the [...]
--- OUTSIDE RECORDS SUMMARY | 2023-08-21 08:43 | XMS_ITS | Continuity of Care Document ---
Author Name Unknown Organization [facility] Address [address] [place] [address]- Care Team Providers Care Water Tester Name Role Phone Graciela Nunez MD Primary Care Physician Encounter [facility] [place] Date(s): 04/20/23 - 05/20/23 [facility] [address] [place], [place] [address] Allergies, Adverse Reactions, Alerts [...] 23-valent vaccine 6 07/31/10 Recorded 1Result Comment: [id number] given w/out incident 2Location History: [place], [place] 3Admin Note: done @ dr jones office 4Location History: [facility] 5Location History: [facility] 6Location History: [facility] Medications albuterol-ipratropium 3 mg-0.5 [...] 02/11/23 12:27:00 EDT, Route to Pharmacy Electronically, [facility]/pharmacy #[id number], Partial fill upon patient request if the [...] A DAY NEEDED FOR CONSTIPATION. FILLED AT [facility] Start Date: 03/18/23 Status: Ordered folic acid 1 mg oral tablet 1 mg, 1, tablet, By Mouth, Daily, # 30 tablet, Refills 11, Tot. Refills 11, Maintenance, 12/03/22 9:01:00 EST, Route to Pharmacy Electronically, [facility]/pharmacy #[id number], 170, cm, 02/04/22 11:19:00 EDT, Height, 44.1, kg, 12/20/21 16:05:00 EST, Dry Weight Start Date: 12/03/22 Status: Ordered gabapentin 300 mg oral capsule 2, capsule, By Mouth, 3 times a day, # 180 capsule, Refills 5, Tot. Refills 5, Maintenance, 08/13/22 13:03:00 EDT, Route to Pharmacy Electronically, [facility]/pharmacy #[id number], 170, cm, 02/04/22 11:19:00 EDT, Height, 44.1, kg, 12/20/21 16:05:00 EST, Dry Weight Start Date: 08/13/22 Status: Ordered hydrOXYzine hydrochloride 10 mg oral tablet 3 tablet = 30 mg, By Mouth, 3 times a day, PRN NEEDED FOR ANXIETY, # 270 tablet, 3 Refills, Maintenance, 03/01/23 12:03:00 EDT, [facility]/pharmacy #[id number], 170, cm, 02/04/22 11:19:00 EDT, [...] Refills, Maintenance, 12/16/22 9:12:00 EST, Capsule, [facility]/pharmacy #[id number], Partial fill upon patient request [...] Personnel Name: Morgan Abbott MD Position: [facility] Renal MD Member Role: Lifetime Consulting Physician Address: Address: [address] [place] [address], [address] [place] [address]- Name: Graciela Nunez MD Position: [facility] Physician - Primary Care Member Role: PCP Address: Address: [address] [place] [address]- Name: Maryam Camara RN Position: S RN [...] Name: Ninfa Soto RN Position: [facility] RN Member Role: Primary Care Nurse Name: Romeo Reid MD Position: [facility] Renal MD Member Role: Lifetime Consulting Physician Address: Address: [address] [place] [address] [address] [facility] [place] [address]- [place] Name: Olga Valladares RN Position: S RN Member Role: Primary Care Nurse Name: Ruby Alexandre RN Position: S RN Member Role: Primary Care Nurse Address: Address: [address] [place] [address]- [place] Name: Celso Lawson MD Position: [facility] Renal MD Member Role: Lifetime Consulting Physician Address: Address: [address] [place] [address] [facility] [place] [address]- Name: Gwyn LUIS, Keely Position: [facility] RN Member Role: Primary Care Nurse Name: Chloe Fisher LPN Position: [facility] RN Member Role: Primary Care Nurse Care Team Related Persons Name: LAZARUS OSBORNE Address: [place] [address] Name: KAVON NICOLE Address: home [address] [place] [address] Name: PT, [facility] NONE
--- OUTSIDE RECORDS SUMMARY | 2023-08-21 08:43 | XMS_ITS | Continuity of Care Document ---
Author Name Unknown Organization [facility] Address [address] [place] [address]- Care Team Providers Care Rn Imcu Name Role Phone Graciela Nunez MD Primary Care Physician Encounter [facility] [place] Date(s): 01/29/20 - 02/05/20 [facility] [address] [place] [address]- [facility] Encounter Diagnosis Emphysema/COPD(Discharge Diagnosis) - 01/29/20 Cardiac arrhythmia(Discharge Diagnosis) - 01/29/20 Attending Physician: Graciela Nunez MD Allergies, Adverse [...] 23-valent vaccine 5 07/31/10 Recorded 1Location History: [place], [place] 2Admin Note: done @ dr jones office 3Location History: [facility] 4Location History: [facility] 5Location History: [facility] Medications alendronate 70 mg oral tablet [...] Replace Required Details, Route to Pharmacy Electronically, [facility] #[id number]... Start Date: 01/31/20 Status: Ordered [...] 01/18/20 10:43:00 EDT, Route to Pharmacy Electronically, [facility] #[id number], 170, cm, 12/13/19 13:51:00EST, Height, 56.3, kg, 11/24/19 22:58:00 EST, Dry W... Start Date: 01/18/20 Status: Ordered gabapentin 300 mg oral capsule See Instructions, TAKE 2 CAPSULES BY MOUTH EVERY MORNING, 1 CAPSULE MID DAY AND 2 CAPSULES EVERY NIGHT AT BEDTIME, # 150 capsule, Refills 1, Maintenance, Instructions Replace Required Details, Route to Pharmacy Electronically, [facility] #03... Start Date: 01/19/20 Status: Ordered [...] Refills, Maintenance, 01/29/20 10:50:00 EDT, XL Tablet, [facility] #[id number], 170, cm, 12/13/19 13:51:00 EST, Height, 56.3, [...] 12/18/19 14:10:00 EST, Route to Pharmacy Electronically, [facility] #[id number], 170, cm, 12/13/19 13:51:00 EST, Height, 56.3, [...] Status Clinical Service Informant Emphysema/COPD Discharge Diagnosis 01/29/20 Cardiac arrhythmia Discharge Diagnosis 01/29/20 Social History Social History Type Response Smoking Status Current every day maria elena penn; Tobacco use times per day: smokes about 1.5 packs per day; entered on: 04/16/16 Sex
--- OUTSIDE RECORDS SUMMARY | 2023-08-21 08:43 | XMS_ITS | Continuity of Care Document ---
Author Name Unknown Organization [facility] Address [address] [address]- Care Team Providers Care Analytical Statistician Name Role Phone Graciela Nunez MD Primary Care Physician [place] [facility] [id number] Date(s): 12/13/19 - 12/20/19 [facility] [address] [place] [address]- [facility] Encounter Diagnosis Emphysema/COPD(Discharge Diagnosis) - 12/13/19 Cardiac arrhythmia(Discharge Diagnosis) - 12/13/19 Attending Physician: Graciela Nunez MD Allergies, Adverse [...] 23-valent vaccine 5 07/31/10 Recorded 1Location History: [place], [place] 2Admin Note: done @ dr jones office 3Location History: [facility] 4Location History: [facility] 5Location History: [facility] Medications alendronate 70 mg [...] Refills, Soft Stop, 12/06/19 15:31:00 EST, Tablet, [facility] #[id number], 170, cm, 12/06/19 15:03:00 EST, Height, 56.3, kg, 11/24/19 22:58:00 EST, Dry Weight Start Date: 12/06/19 Status: Ordered folic acid 1 mg oral tablet 1 mg, 1, tablet, By Mouth, Daily, # 30 tablet, Refills 3, Tot. Refills 3, Maintenance, 03/06/19 13:13:46 EDT, Route to Pharmacy Electronically, [id number], [id number] Start Date: 03/06/19 Status: Ordered gabapentin 300 mg oral capsule See Instructions, 2 capsules qam, 1 capsule midday, 2 capsules at night, # 150 capsule, Refills 5, Tot. Refills 5, Maintenance, 03/06/19 13:06:04 EDT, Instructions Replace Required Details, Route to Pharmacy Electronically, [id number]... Start Date: 03/06/19 Status: Ordered Home Blood [...] Refills, Maintenance, 10/29/19 12:31:00 EST, XL Tablet, [facility] #[id number], 170, cm, 07/13/19 9:58:00 EDT, Height, 59.1, kg, 07/07/19 20:49:00 EDT, Dry Weight Start Date: 10/29/19 Status: Ordered Nicoderm C-Q Clear 14 mg/24 hr transdermal film, extended release 1 patch, Topically, Daily, # 30 patch, 0 Refills, Acute 12/27/19 13:41:00 EST, 11/26/19 13:41:00 EST, Patch, [facility] #[id number], 170, cm, 11/26/19 5:22:00 EST, Height, 56.3, kg, 11/24/19 22:58:00 EST, Dry Weight Start Date: 11/26/19 Stop Date: 12/27/19 Status: Ordered predniSONE 10 mg oral tablet See Instructions, 4 tabs x 3 days, 3 tabs x 3 days, 2 tabs x 3 days, 1 tab x 3 days, # 30 tablet, 0Refills, Acute 01/06/20 15:30:00 EST, 12/06/19 15:30:00 EST, Tablet, [facility] #[id number], 170, cm, 12/06/19 15:03:00 EST, Height, 56.3, [...] 12/18/19 14:10:00 EST, Route to Pharmacy Electronically, [facility] #[id number], 170, cm, 12/13/19 13:51:00 EST, Height, 56.3, [...] Status Clinical Service Informant Emphysema/COPD Discharge Diagnosis 12/13/19 Cardiac arrhythmia Discharge Diagnosis 12/13/19 Vital Signs Most recent to oldest [Reference Range]: 1 Height 170 cm (12/13/19 1:51 PM) Weight 56.9 kg (12/13/19 1:51 PM) Oxygen Saturation [94-100 %] 90 % *L* (12/13/19 1:51 PM) Pulse Rate [55-90 bpm] 102 bpm *H* (12/13/19 1:51 PM) Body Mass Index [18.5-24.99] 19.69 (12/13/19 1:51 PM) Blood Pressure [90-138/55-84 mm Hg] 138/ 76mm Hg (12/13/19 1:51 PM) Temperature [96.8-100.4 DegF] 98.1 DegF (12/13/19 1:51 PM) Mode of Delivery (Oxygen) Room air (12/13/19 1:51 PM) Blood pressure sites Arm, left (12/13/19 1:51 PM) Temperature Route Oral (12/13/19 1:51 PM) Social History Social History Type Response Smoking Status Current every day sm oker; Tobacco use times per day: smokes about 1.5 packs per day; entered on: 04/16/16 Sex
--- OUTSIDE RECORDS SUMMARY | 2023-08-21 08:43 | XMS_ITS | Continuity of Care Document ---
Author Name Unknown Organization [facility] Address [address] [place] [address]- Care Team Providers Care Stove Mounter Name Role Phone Graciela Nunez MD Primary Care Physician [phone] Encounter [facility] [place] Date(s): 06/03/23 - 07/03/23 [facility] [address] [place], [place] [address] [[email or web address]] Allergies, Adverse Reactions, [...] 23-valent vaccine 6 07/31/10 Recorded 1Result Comment: [id number] given w/out incident 2Location History: [place], [place] 3Admin Note: done @ dr jones office 4Location History: [facility] 5Location History: [facility] 6Location History: [facility] Medications albuterol-ipratropium 3 mg-0.5 mg/3 ml [...] 05/25/23 15:31:00 EDT, Route to Pharmacy Electronically, [facility]/pharmacy #[id number], Partial fill upon patient request if the [...] A DAY NEEDED FOR CONSTIPATION. FILLED AT [facility] Start Date: 03/18/23 Status: Ordered folic acid 1 mg oral tablet 1 mg, 1, tablet, By Mouth, Daily, # 30 tablet, Refills 11, Tot. Refills 11, Maintenance, 12/03/22 9:01:00 EST, Route to Pharmacy Electronically, [facility]/pharmacy #[id number], 170, cm, 02/04/22 11:19:00 EDT, Height, 44.1, kg, 12/20/21 16:05:00 EST, Dry Weight Start Date: 12/03/22 Status: Ordered gabapentin 300 mg oral capsule 2, capsule, By Mouth, 3 times a day, # 180 capsule, Refills 5, Tot. Refills 5, Maintenance, 08/13/22 13:03:00 EDT, Route to Pharmacy Electronically, [facility]/pharmacy #[id number], 170, cm, 02/04/22 [...] 07/09/23 19:20:00 EDT, 07/02/23 19:20:00 EDT, Tablet, [facility]/pharmacy #44... Start Date: 07/02/23 Stop [...] 3 Refills, Maintenance, 12/16/22 9:12:00 EST, Capsule, [facility]/pharmacy #[id number], Partial fill upon [...] 30 capsule, 0 Refills, Maintenance, 06/24/23 19:50:00 EDT,[facility]/pharmacy #[id number], Partial fill upon patient request if the [...] Role: Lifetime Consulting Physician Address: Address: [address] [place] [address], [address] Name: Graciela Nunez MD Position: [facility] Physician - Primary Care Member Role: PCP Address: Address: [address] [place] [address]- Name: Maryam Camara RN Position: S RN Member Role: Primary Care Nurse Name: Josemanuel Hawkins RN Position: S RN Member Role: Primary Care Nurse Name: Mckay Esquivel MD Position: [facility] Renal MD Member Role: Lifetime Consulting Physician Address: Address: [address] [place] [address], [address] Name: Rylie Francois RN Position: S [...] Care Nurse Name: Romeo Reid MD Position: [facility] Renal MD Member Role: Lifetime Consulting Physician Address: Address: [address] [place] [address] [address] [facility] [place] [address]- Name: Olga Valladares RN Position: S RN Member Role: Primary Care Nurse Name: Ruby Alexandre RN Position: S RN Member Role: Primary Care Nurse Address: Address: [address] [place] [address]- Name: Celso Lawson MD Position: [facility] Renal MD Member Role: Lifetime Consulting Physician Address: Address: [address] [place] [address] [facility] [place] [address]- Name: Alyssa Camacho RN Position: S RN Member Role: Primary Care Nurse Name: Keely Pascal RN Position: S RN Member Role: Primary Care Nurse Name: Chloe Fisher LPN Position: S RN Member Role: Primary Care Nurse Care Team Related Persons Name: LAZARUS OSBORNE Address: [place] [address] Name: KAVON NICOLE Address: home [address] [place] [address] Name: PT, STATES NONE
--- OUTSIDE RECORDS SUMMARY | 2023-08-21 08:43 | XMS_ITS | Continuity of Care Document ---
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 Name Role Phone Graciela Nunez MD Primary Care Physician [phone] Encounter [facility] Date(s): 04/08/22 - 05/08/22 [facility] [address] [place], [place] [address] Attending Physician: Dennys Fabian Admitting Physician: AdmtrDennys Referring Physician: Admtr, ArElvira Allergies, Adverse Reactions, Alerts Substance Reaction Severity [...] 23-valent vaccine 6 07/31/10 Recorded 1Result Comment: [id number] given w/out incident 2Location History: [place], [place] 3Admin Note: done @ dr jones office 4Location History: [facility] 5Location History: [facility] 6Location History: [...] 3 Refills, Maintenance, 04/09/22 9:54:00 EDT, Tablet, [facility] #[id number], Partial fill upon patient request if the prescription is for a schedule II opioid drug., 1 tablet By Mouth Daily, 170, cm, 02/04... Start Date: 04/09/22 Status: Ordered busPIRone 10 mg oral tablet 10 mg, 1, tablet, By Mouth, 3 times a day, # 90 tablet, Refills 1, Tot. Refills 1, Maintenance, 04/28/22 16:25:00 EDT, Route to Pharmacy Electronically, [facility] #[id number], new dosage, 170, cm, 02/04/22 11:19:00 EDT, Height, 44.1, kg, ... Start Date: 04/28/22 Status: Ordered calcium (as carbonate)-vitamin D 500 mg-400 intl units oral tablet 1 tablet, By Mouth, 2 times a day, calcium 500/vitamin d 400 iu twice daily, # 60 tablet, 6 Refills, Maintenance, 02/11/22 10:15:00 EDT, Tablet, [facility] #[id number], Partial fill upon patientrequest if the prescription is for a schedule II op... Start Date: 02/11/22 Status: Ordered Colace sodium 100 mg oral capsule 100 mg, 1, capsule, By Mouth, 2 times a day, PRN, # 60 capsule, Refills 5, Tot. Refills 5, Maintenance, for constipation, 02/04/22 11:08:00 EDT, Route to Pharmacy Electronically, [facility]#[id number], prefers gel formulation, 170, cm, 02/04/22... Start Date: 02/04/22 Status: Ordered diltiazem 180 mg/24 hours oral capsule, extended release 180 mg, 1, capsule, By Mouth, Daily, # 30 capsule, Refills 0, Tot. Refills 0, Maintenance, 11/06/2209:09:00 EST, Route to Pharmacy Electronically, [facility] #[id number], Partial fill upon patient request if the prescription is for a schedule II... Start Date: 11/06/21 Status: Ordered Flonase 50 mcg/inh nasal spray 1 sprays, Nares, Both, Daily in AM, # 16 Gm, 4 Refills, Maintenance, 12/03/21 12:34:00 EST, [place], [facility] #[id number], Partial fill upon patient request if the prescription is for a scheduleII opioid drug., 1 sprays Nares, Both Daily in AM,... Start Date: 12/03/21 Status: Ordered folic acid 1 mg oral tablet 1 mg, 1, tablet, By Mouth, Daily, # 30 tablet, Refills 11, Tot. Refills 11, Maintenance, 02/25/22 16:15:00 EDT, Route to Pharmacy Electronically, [facility] #[id number], 170, cm, 02/04/22 11:19:00 EDT, Height, 44.1, [...] 02/09/22 15:13:00 EDT, Route to Pharmacy Electronically, [facility] #[id number], 170, cm, 02/04/22 11:19:00 EDT, Height, 44.1, kg, 12/20/21 16:05:00 EST,... Start Date: 02/09/22 Status: Ordered Hair, Skin & Nails 5 mg oral capsule 1 capsule = 5 mg, By Mouth, Daily, # 90 capsule, 3 Refills, Maintenance, 02/19/22 12:29:00 EDT, [facility] #[id number], Partial fill upon patient request if the prescription is for a schedule IIopioid drug., 1 capsule By Mouth Daily, 170, cm, 04... Start Date: 02/19/22 Status: Ordered lactulose 10 gm/15 ml oral syrup 15 mL = 10 Gm, By Mouth, Every 72 hours, PRN as needed for constipation, # 300 mL, 5 Refills, Maintenance, 03/19/22 14:45:00 EDT, Syrup, [facility] #[id number], Partial fill upon patient requestif the prescription is for a schedule II opioid ivonne... Start Date: 03/19/22 Status: Ordered LORazepam 0.5 mg oral tablet 1 tablet = 0.5 mg, By Mouth, 3 times a day, # 60 tablet, 3 Refills, Maintenance, 04/28/22 16:24:00 EDT, Tablet, [facility] #[id number], Partial fill upon patient request if the [...] 10/22/21 15:09:00 EST, Route to Pharmacy Electronically, [facility] #[id number] Tablet, Partial fill upon patient request... Start [...] Refills, Maintenance, 02/26/21 15:47:00 EDT, ER Tablet, [facility] #[id number], Partial fill upon patient requestif the prescription is for a schedule II opioid ivonne... Start Date: 02/26/21 Status: Ordered Ventolin HFA 108 mcg/inh inhalation aerosol with adapter 2 puffs, Inhalation, 4 times a day, PRN for wheezing, # 1 each, 0 Refills, Maintenance, 10/02/20 10:55:00 EST, Aerosol, [facility]/pharmacy #[id number], 170, cm, 10/02/20 10:06:00 EST, Height, 56.3, kg, 11/24/19 22:58:00 EST, Dry Weight Start Date: 10/02/20 Status: Ordered Vitamin D3 1000 intl units oral capsule 1 capsule = 25 mcg, By Mouth, Daily, # 30 capsule, 11 Refills, Maintenance, 12/02/21 10:55:00 EST, Capsule, [facility] #[id number], Partial fill upon patient request if the [...]
--- OUTSIDE RECORDS SUMMARY | 2023-08-21 08:43 | XMS_ITS | Continuity of Care Document ---
Author Name Unknown Organization [facility] Address [address] [place] [address]- Care Team Providers Care Project Geologist Name Role Phone Graciela Nunez MD Primary Care Physician [place] [facility] Date(s): 03/23/23 - 04/22/23 [facility] [address] [place], [place] [address] Allergies, Adverse Reactions, Alerts Substance Reaction Severity [...] 23-valent vaccine 6 07/31/10 Recorded 1Result Comment: [id number] given w/out incident 2Location History: [place], [place] 3Admin Note: done @ dr jones office 4Location History: [facility] 5Location History: [facility] 6Location History: [facility] Medications aspirin 81 [...] Replace Required Details, Route to Pharmacy Electronically, [facility] [id number], 170, cm, ... Start Date: 03/26/23 Status: Ordered baclofen 10 mg oral tablet 10 mg, 1, tablet, By Mouth, 2 times a day, PRN, # 28 tablet, Refills 2, Tot. Refills 2, Maintenance, Pain , Moderate, 02/11/23 12:27:00 EDT, Route to Pharmacy Electronically, [facility]/pharmacy #[id number], Partial fill upon patient request if the prescription is... Start Date: 02/11/23 Stop Date: 03/25/23 Status: Ordered docusate sodium 100 mg oral capsule TAKE 1 CAPSULE BY MOUTH 2 TIMES A DAY NEEDED FOR CONSTIPATION. FILLED AT [facility] Start Date: 03/18/23 Status: Ordered folic acid 1 mg oral tablet 1 mg, 1, tablet, By Mouth, Daily, # 30 tablet, Refills 11, Tot. Refills 11, Maintenance, 12/03/22 9:01:00 EST, Route to Pharmacy Electronically, [facility]/pharmacy #[id number], [...] 05/07/23 12:41:00 EDT, 04/09/23 12:41:00 EDT, Tablet, [facility]/pharmacy #[id number], Partial fill upon patient [...] 0 Refills, Maintenance, 04/20/23 11:30:00 EDT, Tablet, [facility]/pharmacy #[id number], Partial fill upon patient request if the prescription is for a schedule II opio... Start Date: 04/20/23 Status: Ordered predniSONE 10 mg oral tablet See Instructions, 30 mg daily for 3 days and then 20 mg daily for 3 days and then continue 10 mg daily., # 39 each, 0 Refills, Maintenance, 03/22/23 13:16:00 EDT, Tablet, [facility], Partial fill upon patient [...] each, 0 Refills, Maintenance, 04/20/23 11:32:00 EDT, [facility]/pharmacy #[id number], Partial fill upon patient [...] 11 Refills, Maintenance, 12/03/22 9:00:00 EST, Capsule, [facility]/pharmacy #[id number], Partial fill [...] Personnel Name: Milena ORTIZ, Morgan Hancock Position: [facility] Renal MD Member Role: Lifetime Consulting Physician Address: Address: [address] [place] [address], [address] [place] [address] Name: Graciela Nunez MD Position: [facility] Physician - Primary Care Member Role: PCP Address: Address: [address] [place] [address]- [place] Name: Maryam Camara RN Position: S [...] Role: Lifetime Consulting Physician Address: Address: [address] [place] [address] [facility], [place] [address]- Name: Olga Valladares RN Position: [facility] RN Member Role: Primary Care Nurse Name: Ruby Alexandre RN Position: [facility] RN Member Role: Primary Care Nurse Address: Address: [address] [place] [address]- Name: Celso Lawson MD Position: [facility] Renal MD Member Role: Lifetime Consulting Physician Address: Address: [address] [place] [address] [facility] [place] [address]- Name: Chloe Fisher LPN Position: S RN Member Role: Primary Care Nurse Care Team Related Persons Name: INDIALAZARUS Address: [place] [address] Name: KAVON NICOLE Address: [address] [place] [address] Name: PT, STATES NONE
--- OUTSIDE RECORDS SUMMARY | 2023-08-21 08:43 | XMS_ITS | Continuity of Care Document ---
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 Start Date: 03/26/23 Status: Ordered baclofen 10 mg oral tablet 10 mg, 1, tablet, By Mouth, 2 times a day, PRN, # 28 tablet, Refills 2, Tot. Refills 2, Maintenance, Pain , Moderate, 02/11/23 12:27:00 EDT, Route to Pharmacy Electronically, [facility]/pharmacy #[id number], Partial fill upon patient request if the prescription is... Start Date: 02/11/23 Stop Date: 03/25/23 Status: Ordered docusate sodium 100 mg oral capsule TAKE 1 CAPSULE BY MOUTH 2 TIMES A DAY NEEDED FOR CONSTIPATION. FILLED AT [facility] Start Date: 03/18/23 Status: Ordered folic acid 1 mg oral tablet 1 mg, 1, tablet, By Mouth, Daily, # 30 tablet, Refills 11, Tot. Refills 11, Maintenance, 12/03/22 9:01:00 EST, Route to Pharmacy Electronically, [facility]/pharmacy #[id number], 170, cm, 02/04/22 11:19:00 EDT, Height, 44.1, kg, 12/20/21 16:05:00 EST, Dry Weight Start Date: 12/03/22 Status: Ordered gabapentin 300 mg oral capsule 2, capsule, By Mouth, 3 times a day, # 180 capsule, Refills 5, Tot. Refills 5, Maintenance, 08/13/22 13:03:00 EDT, Route to Pharmacy Electronically, [facility]/pharmacy #[id number], 170, cm, 02/04/22 11:19:00 EDT, Height, 44.1, kg, 12/20/21 16:05:00 EST, Dry Weight Start Date: 08/13/22 Status: Ordered hydrOXYzine hydrochloride 10 mg oral tablet 3 tablet = 30 mg, By Mouth, 3 times a day, PRN NEEDED FOR ANXIETY, # 270 tablet, 3 Refills, Maintenance, 03/01/23 12:03:00 EDT, [facility]/pharmacy #[id number], 170, cm, 02/04/22 11:19:00 EDT, Height, 44.1, kg, 12/20/21 16:05:00 EST, Dry Weight Start Date: 03/01/23 Status: Ordered LORazepam 0.5 mg oral tablet 1 tablet = 0.5 mg, By Mouth, 2 times a day, PRN as needed for anxiety, for 14 days, FILL DATE 03/27/23, # 28 tablet, 0 Refills, Acute 04/07/23 10:35:00 EDT, 03/24/23 10:35:00 EDT, Tablet, [facility]/pharmacy#[id number], Partial fill upon patient request if the pre... Start Date: 03/24/23 Stop Date: 04/07/23 Status: Ordered Metoprolol Succinate ER 25 mg oral tablet, extended release 1 tablet = 25 mg, By Mouth, Daily, TAKE 1 TABLET BY MOUTH ONCE DAILY Start Date: 12/03/22 Status: Ordered multivitamin Multiple Vitamins oral capsule 1 capsule, By Mouth, Daily, # 90 capsule, 3 Refills, Maintenance, 12/16/22 9:12:00 EST, Capsule, [facility]/pharmacy #[id number], Partial fill upon patient request [...] 0 Refills, Maintenance, 03/22/23 13:16:00 EDT, Tablet, [facility], Partial fill upon patient [...] tablet, 3 Refills, Maintenance, 02/02/23 13:02:00 EDT, [facility]/pharmacy #[id number], 170, cm, 02/04/22 11:19:00 EDT, Height, 44.1, kg,... Start Date: 02/02/23 Status: Ordered urea 15 g oral powder for reconstitution = 15 Gm, By Mouth, 2 times a day, # 3 each, 0 Refills, Maintenance, 03/22/23 13:18:00 EDT, [facility], Partial fill upon patient request if [...] Personnel Name: Milena ORTIZ, Morgan Hancock Position: [facility] Renal MD Member Role: Lifetime Consulting Physician Address: Address: [address] [place] [address], [address] [address]- Name: Graciela Nunez MD Position: [facility] Physician - Primary Care Member Role: PCP Address: Address: [address] [place] [address]- Name: Maryam Camara RN Position: [facility] RN Member Role: Primary Care Nurse Name: Luisa Storey RN Position: [facility] RN Member Role: Primary Care Nurse Name: Paty Vetnura RN Position: [facility] RN Member Role: Primary Care Nurse Name: Ruby Alexandre RN Position: S RN Member Role: Primary Care Nurse Address: Address: [address] [place] [address] Name: Celso Lawson MD Position: [facility] Renal MD Member Role: Lifetime Consulting Physician Address: Address: [address] [place] [address] [facility] [place] [address]- Care Team Related Persons Name: LAZARUS OSBORNE Address: [place] [address] Name: KAVON NICOLE Address: home [address] [place] [id number] Name: PT, STATES NONE
--- OUTSIDE RECORDS SUMMARY | 2023-08-21 08:43 | XMS_ITS | Continuity of Care Document ---
Author Name Unknown Organization [facility] Address [address] [address]- Care Team Providers Care Senior Communications Specialist Name Role Phone Mayra ORTIZ, Graciela Lares Primary Care Physician Encounter [facility] [place] Date(s): 08/15/20 - 08/22/20 [facility] [address] [place] [address]- [facility] Encounter Diagnosis Emphysema/COPD(Discharge Diagnosis) - 08/15/20 Right-sided thoracic back pain(Discharge Diagnosis) - 08/15/20 Attending Physician: Joanna Mclain MD Allergies, Adverse Reactions, Alerts Substance Reaction [...] 23-valent vaccine 5 07/31/10 Recorded 1Location History: [place], [place] 2Admin Note: done @ dr jones office 3Location History: [facility] 4Location History: [facility] 5Location History: [facility] Medications alendronate 70 mg oral [...] Replace Required Details, Route to Pharmacy Electronically, [facility] #[id number]... Start Date: 01/31/20 Status: Ordered folic acid 1 mg oral tablet 1 mg, 1, tablet, By Mouth, Daily, # 30 tablet, Refills 3, Tot. Refills 3, Maintenance, 01/18/20 10:43:00 EDT, Route to Pharmacy Electronically, [facility] #[id number], 170, cm, 12/13/19 13:51:00EST, Height, 56.3, kg, 11/24/19 22:58:00 EST, Dry W... Start Date: 01/18/20 Status: Ordered furosemide 20 mg oral tablet 1, tablet, By Mouth, Daily, PRN, # 90 tablet, Refills 0, Tot. Refills 0, Maintenance, NEEDED FORLEG SWELLING, 04/19/20 15:50:00 EDT, Route to Pharmacy Electronically, [facility] #[id number],170, cm, 12/13/19 13:51:00 EST, Height, 56.3, kg, 0... Start Date: 04/19/20 Status: Ordered gabapentin 300 mg oral capsule See Instructions, TAKE 2 CAPSULES BY MOUTH EVERY MORNING, 1 CAPSULE MID DAY AND 2 CAPSULES EVERY NIGHT AT BEDTIME, # 150 capsule, Refills 1, Maintenance, Instructions Replace Required Details, Route to Pharmacy Electronically, [facility] #[id number]... Start Date: 01/19/20 Status: Ordered [...] 0 Refills, Maintenance, 07/29/20 10:57:00 EDT, Tablet, [facility] #[id number], 170, cm, 12/13/19 13:51:00 EST,Height, 56.3, kg, 11/24/19 22:58:00 EST, Dry Weight Start Date: 07/29/20 Status: Ordered Metoprolol Succinate ER 25 mg oral tablet, extended release 1 tablet = 25 mg, By Mouth, Daily, # 90 tablet, 1 Refills, Maintenance, 01/29/20 10:50:00 EDT, XL Tablet, [facility] #[id number], 170, cm, 12/13/19 13:51:00 EST, Height, 56.3, [...] days, # 30 tablet, 0 Refills, Acute 08/25/20 16:17:00 EDT, 08/20/20 16:17:00 EDT, [facility] #[id number], 170, cm, 12/13/19 13:51:00 EST, Height, 56.3, kg, 11/24/19... Start Date: 08/20/20 Stop Date: 08/25/20 Status: Ordered Shower Chair See Instructions, # [...] 6 Refills, Maintenance, 06/17/20 16:11:00 EDT, Aerosol, [facility] #[id number], 170, cm, 12/13/19 13:51:00 EST, Height, 56.3, kg, 11/24/19 22:58:00 EST, Dry Weight Start Date: 06/17/20 Stop Date: 01/13/21 Status: Ordered Vitamin B1 100 mg oral tablet 1, tablet, By Mouth, Daily, # 30 tablet, Refills 11, Tot. Refills 0, Acute, 12/18/19 14:10:00 EST, Route to Pharmacy Electronically, [facility] #[id number], 170, cm, 12/13/19 13:51:00 EST, Height, 56.3, kg, 11/24/19 22:58:00 EST, Dry Weight Start Date: 12/18/19 Status: Ordered Zofran 4 mg oral tablet 1 tablet = 4 mg, By Mouth, 3 times a day, PRN nausea, # 30 tablet, 0 Refills, Maintenance, :17:00 EDT, Tablet, [facility] #[id number], 170, cm, 12/13/19 13:51:00 EST, Height, 56.3, [...] Cl inical Service Informant Emphysema/COPD Discharge Diagnosis 08/15/20 Right-sided thoracic back pain Discharge Diagnosis 08/15/20 Social History Social History Type Response Smoking Status Current every day maria elena penn; Tobacco use times per day: smokes about 1.5 packs per day; entered on: 04/16/16 Sex
--- OUTSIDE RECORDS SUMMARY | 2023-08-21 08:43 | XMS_ITS | Continuity of Care Document ---
Author Name Unknown Organization [facility] Address [address] [place] [address]- Care Team Providers Care Window Caser Name Role Phone Mayra ORTIZ, Graciela Lares Primary Care Physician Encounter [facility] Date(s): 10/15/20 - 11/14/20 [facility] [address] [place], [place] [address] Allergies, Adverse Reactions, Alerts Substance Reaction [...] 23-valent vaccine 5 07/31/10 Recorded 1Location History: [place], [place] 2Admin Note: done @ dr jones office 3Location History: [facility] 4Location History: [facility] 5Location History: [facility] Medications alendronate 70 mg [...] Replace Required Details, Route to Pharmacy Electronically, [facility] #[id number]... Start Date: 01/31/20 Status: Ordered folic acid 1 mg oral tablet 1 mg, 1, tablet, By Mouth, Daily, # 30 tablet, Refills 3, Tot. Refills 3, Maintenance, 01/18/20 10:43:00 EDT, Route to Pharmacy Electronically, [facility] #[id number], 170, cm, 12/13/19 13:51:00EST, Height, 56.3, kg, 11/24/19 22:58:00 EST, Dry W... Start Date: 01/18/20 Status: Ordered furosemide 20 mg oral tablet 1, tablet, By Mouth, Daily, PRN, # 90 tablet, Refills 0, Tot. Refills 0, Maintenance, NEEDED FORLEG SWELLING, 04/19/20 15:50:00 EDT, Route to Pharmacy Electronically, [facility] #[id number],170, cm, 12/13/19 13:51:00 EST, Height, 56.3, kg, 0... Start Date: 04/19/20 Status: Ordered gabapentin 300 mg oral capsule 600 mg, 2, capsule, By Mouth, 3 times a day, # 180 capsule, Refills 3, Tot. Refills 3, Maintenance,10/01/20 15:48:00 EST, Route to Pharmacy Electronically, [facility] #[id number], 170, cm, 12/13/19 13:51:00 EST, Height, 56.3, kg, 11/24/19 22:58:... Start Date: 10/01/20 Status: Ordered gabapentin 300 mg oral capsule See Instructions, TAKE 2 CAPSULES BY MOUTH three times per day, # 180 capsule, Refills 1, Instructions Replace Required Details, Route to Pharmacy Electronically, [facility] #[id number], 170, cm, 12/13/19 13:51:00 EST, Height, 56.3, [...] Refills, Maintenance, 01/29/20 10:50:00 EDT, XL Tablet, [facility] #[id number], 170, cm, 12/13/19 13:51:00 EST, Height, 56.3, [...] 3 Refills, Maintenance, 08/23/20 12:07:00 EDT, Tablet, [facility] #[id number], 170, cm, 12/13/19 13:51:00 EST, Height, 56.3, [...] 6 Refills, Maintenance, 06/17/20 16:11:00 EDT, Aerosol, [facility] #[id number], 170, cm, 12/13/19 13:51:00 EST, Height, 56.3, kg, 11/24/19 22:58:00 EST, Dry Weight Start Date: 06/17/20 Stop Date: 01/13/21 Status: Ordered Ventolin HFA 108 mcg/inh inhalation aerosol with adapter 2 puffs, Inhalation, 4 times a day, PRN for wheezing, # 1 each, 0 Refills, Maintenance, 10/02/20 10:55:00 EST, Aerosol, [facility]/pharmacy #[id number], 170, cm, 10/02/20 10:06:00 EST, Height, 56.3, kg, 11/24/19 22:58:00 EST, Dry Weight Start Date: 10/02/20 Status: Ordered Vitamin B1 100 mg oral tablet 1, tablet, By Mouth, Daily, # 30 tablet, Refills 11, Tot. Refills 0, Acute, 12/18/19 14:10:00 EST, Route to Pharmacy Electronically, [email or web address] #[id number], 170, cm, 12/13/19 13:51:00 EST, Height, 56.3, kg, 11/24/19 22:58:00 EST, Dry Weight Start Date: 12/18/19 Status: Ordered Zofran 4 mg oral tablet 1 tablet = 4 mg, By Mouth, 3 times a day, PRN nausea, # 30 tablet, 0 Refills, Maintenance, :17:00 EDT, Tablet, [facility] #[id number], 170, cm, 12/13/19 13:51:00 EST, Height, 56.3, [...]
--- OUTSIDE RECORDS SUMMARY | 2023-08-21 08:43 | XMS_ITS | Continuity of Care Document ---
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 Name Role Phone Graciela Nunez MD Primary Care Physician Encounter [facility] Date(s): 08/21/21 - 08/22/[address] [address]- Discharge Disposition: A-D/C Home Attending Physician: Nela Cullen MD Admitting Physician: Nela Cullen MD Referring Physician: Not on Staff, Referring [...] 23-valent vaccine 5 07/31/10 Recorded 1Location History: [place], [place] 2Admin Note: done @ dr jones office 3Location History: [facility] 4Location History: [facility] 5Location History: [facility] Medications alendronate 70 mg [...] cyclobenzaprine 10 mg oral tablet 10 mg, Tablet, By Mouth, Once, JACKIE, 08/21/21 23:17:00 EDT, Stop date 08/21/21 23:17:00 EDT Start Date: 08/21/21 Stop Date: 08/21/21 Status: Completed cyclobenzaprine 10 mg oral tablet 10 mg, [...] 08/29/21 2:03:00 EDT, 08/22/21 2:03:00 EDT, Tablet, [facility] #[id number], Partial fill upon patient req... Start Date: 08/22/21 Stop Date: 08/29/21 Status: Ordered folic acid 1 mg oral tablet 1 mg, 1, tablet, By Mouth, Daily, # 30 tablet, Refills 5, Tot. Refills 5, Maintenance, 01/31/21 16:35:00 EDT, Route to Pharmacy Electronically, [facility] #[id number], 170, cm, 10/02/20 10:06:00EST, Height, 56.3, kg, 11/24/19 22:58:00 EST, Dry W... Start Date: 01/31/21 Status: Ordered furosemide 20 mg oral tablet 1, tablet, By Mouth, Daily, PRN, # 90 tablet, Refills 0, Tot. Refills 0, Maintenance, NEEDED FORLEG SWELLING, 04/19/20 15:50:00 EDT, Route to Pharmacy Electronically, [facility] #[id number],170, cm, 12/13/19 13:51:00 EST, Height, 56.3, kg, 0... Start Date: 04/19/20 Status: Ordered gabapentin 300 mg oral capsule 2, capsule, By Mouth, 3 times a day, # 180 capsule, Refills 1, Tot. Refills 1, Maintenance, 07/28/21 9:58:00 EDT, Route to Pharmacy Electronically, [facility] #[id number], 170, cm, 10/02/20 10:06:00 EST, Height, 56.3, [...] tablet, 2 Refills, Maintenance, 08/15/21 17:40:00 EDT, [facility] #[id number], 170, cm, 10/02/20 10:06:00 EST, Height, 56.3, kg, 11/24/19 22:58:00 EST, Dry Weight Start Date: 08/15/21 Status: Ordered Metoprolol Succinate ER 25 mg oral tablet, extended release 1 tablet = 25 mg, By Mouth, Daily, # 90 tablet, 1 Refills, Maintenance, 01/29/20 10:50:00 EDT, XL Tablet, [facility] #[id number], 170, cm, 12/13/19 13:51:00 EST, Height, 56.3, [...] 08/26/21 2:03:00 EDT, 08/22/21 2:03:00 EDT, Tablet, [facility] #[id number], Partialfill upon patient request if the prescription [...] 3 Refills, Maintenance, 03/13/21 13:26:00 EDT, Tablet, [facility] #[id number], 170, cm, 10/02/20 10:06:00 EST, Height, 56.3, [...] Refills, Maintenance, 02/26/21 15:47:00 EDT, ER Tablet, [facility] #[id number], Partial fill upon patient requestif the prescription is for a schedule II opioid ivonne... Start Date: 02/26/21 Status: Ordered Ventolin HFA 108 mcg/inh inhalation aerosol with adapter 2 puffs, Inhalation, 4 times a day, PRN for wheezing, # 1 each, 0 Refills, Maintenance, 10/02/20 10:55:00 EST, Aerosol, [facility]/pharmacy #[id number], 170, cm, 10/02/20 10:06:00 EST, Height, 56.3, kg, 11/24/19 22:58:00 EST, Dry Weight Start Date: 10/02/20 Status: Ordered Vitamin B1 100 mg oral tablet 1, tablet, By Mouth, Daily, # 30 tablet, Refills 7, Tot. Refills 0, Acute, 01/06/21 14:35:00 EST, Route to Pharmacy Electronically, [facility] #[id number], 170, cm, 10/02/20 10:06:00 EST, Height, 56.3, kg, 11/24/19 22:58:00 EST, Dry Weight Start Date: 01/06/21 Status: Ordered Zofran 4 mg oral tablet 1 tablet = 4 mg, By Mouth, 3 times a day, PRN nausea, # 30 tablet, 0 Refills, Maintenance, 209:17:00 EDT, Tablet, [facility] #[id number], 170, cm, 12/13/19 13:51:00 EST, Height, 56.3, [...] Exam Date Time Procedure Performing Provider Status 08/22/21 12:11 AM Lumbar Spine 2 or 3 Views Cailin Moralez i; Auth (Verified) Notes: (Lumbar Spine 2 or 3 Views) Reason For Exam: fall, pain;Other: RESULT: Lumbar Spine 2 or 3 Views Lumbar Spine 2 or 3 Views Hx of Present Illness: carry bucket of soapy water and threw bucket and inj low back 4 days ago; Reason: Other:; fall, pain; Clinical Question(s): Other: COMPARISON: 11/14/2020. FINDINGS: New compression deformities of vertebral bodies T12, L2 and L5 and possibly minimal changes to L4. Mild multifocal degenerative disc endplate spurring without significant disc space narrowing. Normal alignment. No spondylolysis or spondylolisthesis. Normal SI joints. Mild stool retention in the visualized abdomen. IMPRESSION: Multiple thoracic and lumbar vertebral body compression deformities new since the comparison examination. If there is a concern for an acute vertebral body fracture, recommend CT or MR. A Yellow message has been communicated via the [employer] [place] system on 08/22/2021 8:11 AM, Message ID [id number]. WSN: [id number] Ordering Physician: Nela Cullen Dictated By: Mj Garcia MD Dictated Date/Time: 08/22/21 8:11 am Reviewed By: Mj Garcia MD Signed By: Mj Garcia MD Signed Date/Time: 08/22/21 8:11 am Transcribed By: VALENTIN Transcribed Date/Time: 08/22/21 7:47 am * Exam Date Time Procedure Performing Provider Status 08/22/21 12:11 AM Chest 2 Views Fronta l and Lat Cailin Ambriz; Auth (Verified) Notes: (Chest 2 Views Frontal and Lat) Reason For Exam: cough;Other: RESULT: Chest 2 Views Frontal and Lat Chest 2 Views Frontal and Lat Hx of Present Illness: carry bucket of soapy water and threw bucket and inj low back 4 days ago; Reason: Other:; cough; Clinical Question(s): Other: COMPARISON: Multiple priors, most recent 08/27/2020. FINDINGS: LINES AND TUBES: None. LUNGS AND PLEURA: Clear lungs. Normal pulmonary vascularity. No pleural effusion. No pneumothorax. HEART, MEDIASTINUM AND DEEPALI: Heart is normal in size. Aorta is mildly calcified. BONES AND SOFT TISSUES: Bilateral partially calcified breast implants. Mild multilevel degenerative disc changes. Multilevel mild compression deformities of several thoracic vertebral bodies which may have progressed somewhat since August 16, 2020, most obviously vertebral body labeled as T7 on the prior examination. IMPRESSION: No acute cardiopulmonary abnormality. Multilevel degenerative disc changes with multilevel compression deformities of several thoracic vertebral bodies. Recommend clinical correlation. If there is a concern for an acute vertebral body fracture, recommend MR or CT. A Yellow message has been communicated via the [employer] [place] system on 08/22/2021 7:44 AM, Message ID [id number]. WSN: [id number] Ordering Physician: Nela Cullen Dictated By: Mj Garcia MD Dictated Date/Time: 08/22/21 7:44 am Reviewed By: Mj Garcia MD Signed By: Mj Garcia MD Signed Date/Time: 08/22/21 7:44 am Transcribed By: VALENTIN Transcribed Date/Time: 08/22/21 7:38 am Vital Signs Most recent to oldest [Reference Range]: 1 2 3 Height 162.56 cm (08/22/21 2:36 AM) 162.56 cm (08/22/21 1:12 AM) 162.56 cm (08/21/21 11:39 PM) Weight 52.65 kg (08/22/21 2:36 AM) 52.65 kg (08/22/21 1:12 AM) 52.65 kg (08/21/21 11:39 PM) Oxygen Saturation [94-100 %] 98 % (08/22/21 2:36 AM) 100 % (08/22/21 1:12 AM) 100 % (08/21/21 11:39 PM) Pulse Rate [55-90 bpm] 115 bpm *H* (08/22/21 2:36 AM) 102 bpm *H* (08/22/21 1:12 AM) 94 bpm *H* (08/21/21 11:39 PM) Body Mass Index [18.5-24.99] 19.92 (08/22/21 2:36 AM) 19.92 (08/22/21 1:12 AM) 19.92 (08/21/21 11:39 PM) Blood Pressure [90-138/55-84 mm Hg] 140/76mm Hg *H* (08/22/21 2:36 AM) 137/62mm Hg (08/22/21 1:12 AM) 131/75mm Hg (08/21/21 11:39 PM) Respiratory Rate [16-30 br/min] 22 br/min (08/22/21 2:36 AM) 17 br/min (08/22/21 1:12 AM) 18 br/min (08/22/21 12:51 AM) Temperature [96.8-100.4 DegF] 97.6 DegF (08/22/21 1:12 AM) 97.8 DegF (08/21/21 8:22 PM) Liters per Minute 4 L/min (08/22/21 2:36 AM) 4 L/min (08/22/21 1:12 AM) 4 L/min (08/21/21 11:39 PM) Mode of Delivery (Oxygen) Nasal cannula (08/22/21 2:36 AM) Nasal cannula (08/22/21 1:12 AM) Nasal cannula (08/21/21 11:39 PM) Blood pressure sites Arm, left (08/22/21 2:36 AM) Arm, left (08/22/21 1:12 AM) Arm, left (08/21/21 11:39 PM) Temperature Route Oral (08/22/21 1:12 AM) Temporal (08/21/21 8:22 PM) Dry Weight 52.65 kg (08/22/21 2:36 AM) 52.65 kg (08/22/21 1:12 AM) 52.65 kg (08/21/21 11:39 PM) Social History Social History Type Response Smoking Status Current every day maria elena penn; Tobacco use times per day: smokes about 1.5 packs per day; entered on: 04/16/16 Sex
--- OUTSIDE RECORDS SUMMARY | 2023-08-21 08:43 | XMS_ITS | Continuity of Care Document ---
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 Name Role Phone Graciela Nunez MD Primary Care Physician [phone] [place] [facility] [place] 12/28[place]22 - 01/27/23 [facility] [address] [place], [place] [address] Allergies, Adverse Reactions, Alerts Substance [...] 23-valent vaccine 6 07/31/10 Recorded 1Result Comment: [id number] given w/out incident 2Location History: [place], [place] 3Admin Note: done @ dr jones office 4Location History: [facility] 5Location History: [facility] 6Location History: [facility] Medications aspirin 81 mg oral [...] 12/28/22 16:00:00 EST, Route to Pharmacy Electronically, [facility]/pharmacy #[id number], Partial fillupon patient request if the prescription is for a s... Start Date: 12/28/22 Stop Date: 02/08/23 Status: Ordered busPIRone 10 mg oral tablet 1, tablet, By Mouth, 3 times a day, # 270 tablet, Refills 1, Maintenance, 11/12/22 17:44:00 EST, Route to Pharmacy Electronically, [id number], 170, cm, 02/04/22 11:19:00 EDT, Height, 44.1, kg, 12/20/21 16:05:00 EST, Dry Weight Start Date: 11/12/22 Status: Ordered calcium-vitamin D 600 mg-400 intl units oral tablet 1 tablet, By Mouth, 2 times a day, # 60 tablet, 6 Refills, Maintenance, 05/15/22 16:21:00 EDT, Tablet, [facility] #[id number], Partial fill upon patient request if the prescription is for a schedule II opioid drug., 1 tablet By Mouth 2 times a da... Start Date: 05/15/22 Status: Ordered Colace sodium 100 mg oral capsule 100 mg, 1, capsule, By Mouth, 2 times a day, PRN, # 180 capsule, Refills 1, Tot. Refills 1, Maintenance, for constipation, 06/23/22 10:20:00 EDT, Route to Pharmacy Electronically, [facility]/pharmacy #[id number],prefers gel formulation, 170, cm, 02/04/22 11:19:00... Start Date: 06/23/22 Status: Ordered Flonase 50 mcg/inh nasal spray 1 sprays, Nares, Both, Daily in AM, # 16 Gm, 4 Refills, Maintenance, 12/03/21 12:34:00 EST, [place], [facility] #[id number], Partial fill upon patient request if the prescription is for a scheduleII opioid drug., 1 sprays Nares, Both Daily in AM,... Start Date: 12/03/21 Status: Ordered folic acid 1 mg oral tablet 1 mg, 1, tablet, By Mouth, Daily, # 30 tablet, Refills 11, Tot. Refills 11, Maintenance, 12/03/22 9:01:00 EST, [id number], cm, 02/04/22 11:19:00 EDT, Height, 44.1, kg, 12/20/21 16:05:00 EST, Dry Weight Start Date: 12/03/22 Status: Ordered gabapentin 300 mg oral capsule 2, capsule, By Mouth, 3 times a day, # 180 capsule, Refills 5, Tot. Refills 5, Maintenance, 08/13/22 13:03:00 EDT, [id number], 170, cm, 02/04/22 11:19:00 EDT, Height, 44.1, kg, 12/20/21 16:05:00 EST, Dry Weight Start Date: 08/13/22 Status: Ordered Hair, Skin & Nails 5 mg oral capsule 1 capsule = 5 mg, By Mouth, Daily, # 90 capsule, 3 Refills, Maintenance, 02/19/22 12:29:00 EDT, [facility] #[id number], Partial fill upon patient request if the prescription is for a schedule IIopioid drug., 1 capsule By Mouth Daily, 170, cm, 04... Start Date: 02/19/22 Status: Ordered hydrOXYzine hydrochloride 10 mg oral tablet 1 tablet = 10 mg, By Mouth, 3 times a day, PRN NEEDED FOR ANXIETY, # 90 tablet, 3 Refills, Maintenance, 12/27/22 11:47:00 EST, [facility]/pharmacy #[id number], 170, cm, 02/04/22 11:19:00 EDT, Height, 44.1, kg,12/20/21 16:05:00 EST, Dry Weight Start Date: 12/27/22 Status: Ordered lactulose 10 gm/15 ml oral syrup 15 mL = 10 Gm, By Mouth, Every 72 hours, PRN as needed for constipation, # 300 mL, 5 Refills, Maintenance, 03/19/22 14:45:00 EDT, Syrup, [facility] #[id number], Partial fill upon patient requestif the prescription is for a schedule II opioid ivonne... Start Date: 03/19/22 Status: Ordered LORazepam 0.5 mg oral tablet 1 tablet = 0.5 mg, By Mouth, 3 times a day, # 60 tablet, 1 Refills, Maintenance, 01/06/23 15:58:00 EST, Tablet, [facility]/pharmacy #[id number], Partial fill upon patient request [...] 3 Refills, Maintenance, 12/16/22 9:12:00 EST, Capsule, [facility]/pharmacy #[id number], Partial fill upon patient request [...] 12/03/22 8:52:00 EST, Route to Pharmacy Electronically, [facility]/pharmacy #[id number], Partial fill upon patient request if [...] 21 tablet, 3 Refills, 12/03/22 8:53:00 EST, [facility]/pharmacy #[id number], 170, cm, 02/04/22 11:19:00 EDT, Height, 44.1, kg, 12/20/21 16:0... Start Date: 12/03/22 Status: Ordered Tylenol 8 HR Arthritis Pain 650 mg oral tablet, extended release 1 tablet = 650 mg, By Mouth, Every 8 hours, PRN Pain , Moderate, # 100 tablet, 1 Refills, Maintenance, 02/26/21 15:47:00 EDT, ER Tablet, [facility] #[id number], Partial fill upon patient requestif the prescription [...] Team Personnel Name: Angie Farmer RN Position: [facility] RN Member Role: Primary Care Nurse Name: Milena ORTIZMorgan Position: [facility] Renal MD Member Role: Lifetime Consulting Physician Address: Address: [address], [address] [place] [address]- [place] Name: Graciela Nunez MD Position: [facility] Primary Care Physician Member Role: PCP Address: Address: [address] [place] [address]- [place] Name: Luisa Storey RN Position: [facility] RN Member Role: Primary Care Nurse Care Team Related Persons Name: LAZARUS OSBORNE Address: [place] [address] Name: KAVON NICOLE Address: home [address] [place] [address] Name: PT, [facility] NONE
--- OUTSIDE RECORDS SUMMARY | 2023-08-21 08:43 | XMS_ITS | Continuity of Care Document ---
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 Name Role Phone Graciela Nunez MD Primary Care Physician [place] [facility] [place]23 [facility] [address] [place], [place] [address] Allergies, Adverse Reactions, Alerts Substance Reaction [...] 23-valent vaccine 6 07/31/10 Recorded 1Result Comment: [id number] given w/out incident 2Location History: [place], [place] 3Admin Note: done @ dr jones office 4Location History: [facility] 5Location History: [facility] 6Location History: [facility] Medications albuterol-ipratropium 3 mg-0.5 mg/3 ml [...] 05/25/23 15:31:00 EDT, Route to Pharmacy Electronically, [facility]/pharmacy #[id number], Partial fill upon patient request if the [...] A DAY NEEDED FOR CONSTIPATION. FILLED AT [facility] Start Date: 03/18/23 Status: Ordered folic acid 1 mg oral tablet 1 mg, 1, tablet, By Mouth, Daily, # 30 tablet, Refills 11, Tot. Refills 11, Maintenance, 12/03/22 9:01:00 EST, Route to Pharmacy Electronically, [facility]/pharmacy #[id number], 170, cm, 02/04/22 11:19:00 EDT, Height, 44.1, kg, 12/20/21 16:05:00 EST, Dry Weight Start Date: 12/03/22 Status: Ordered gabapentin 300 mg oral capsule 2, capsule, By Mouth, 3 times a day, # 180 capsule, Refills 5, Tot. Refills 5, Maintenance, 08/13/22 13:03:00 EDT, Route to Pharmacy Electronically, [facility]/pharmacy #[id number], 170, cm, 02/04/22 11:19:00 EDT, Height, 44.1, kg, 12/20/21 16:05:00 EST, Dry Weight Start Date: 08/13/22 Status: Ordered hydrOXYzine hydrochloride 10 mg oral tablet 3 tablet = 30 mg, By Mouth, 3 times a day, PRN NEEDED FOR ANXIETY, # 270 tablet, 3 Refills, Maintenance, 03/01/23 12:03:00 EDT, [facility]/pharmacy #[id number], 170, cm, 02/04/22 11:19:00 [...] 3 Refills, Maintenance, 12/16/22 9:12:00 EST, Capsule, [facility]/pharmacy #[id number], Partial fill upon patient [...] 30 capsule, 0 Refills, Maintenance, 06/24/23 19:50:00 EDT,[facility]/pharmacy #[id number], Partial fill upon patient [...] Care Nurse Name: Morgan Abbott MD Position: [facility] Renal MD Member Role: Lifetime Consulting Physician Address: Address: [address] [place] [address], [address] [place] [address]- Name: Graciela Nunez MD Position: [facility] Physician - Primary Care Member Role: PCP Address: Address: [address] [place] [address]- Name: Maryam Camara RN Position: S RN Member Role: Primary Care Nurse Name: Josemanuel Hawkins RN Position: [facility] RN Member Role: Primary Care Nurse Name: Mckay Esquivel MD Position: [facility] Renal MD Member Role: Lifetime Consulting Physician Address: Address: [address] [place] [address], [address] [place] [address]- Name: Rylie Francois RN Position: [facility] RN Member Role: Primary Care Nurse Name: Luisa Storey RN Position: [facility] RN Member Role: Primary Care Nurse Name: Elizabeth Ferris RN Position: [facility] RN Member Role: Primary Care Nurse Name: Anabela Beavers Position: [facility] RN Member Role: Primary Care Nurse Name: Tracey Chavez Position: [facility] RN Member Role: Primary Care Nurse Name: Sandy Alba RN Position: [facility] RN Member Role: Primary Care Nurse Name: Jose Sebastian RN Position: [facility] RN Member Role: Primary Care Nurse Name: Angelica Montemayor RN Position: [facility] RN Member Role: Primary Care Nurse Name: Paty Ventura RN Position: [facility] RN Member Role: Primary Care Nurse Name: Ninfa Soto RN Position: [facility] RN Member Role: Primary Care Nurse Name: Romeo Reid MD Position: [facility] Renal MD Member Role: Lifetime Consulting Physician Address: Address: [address] [place] [address] [address] [facility] [place] [address]- Name: Olga Valladares RN Position: [facility] RN Member Role: Primary Care Nurse Name: Karyn Quezada RN Position: [facility] RN Member Role: Primary Care Nurse Name: Ruby Alexandre RN Position: S RN Member Role: Primary Care Nurse Address: Address: [address] [place] [address]- Name: Celso Lawson MD Position: [facility] Renal MD Member Role: Lifetime Consulting Physician Address: Address: [address] [place] [address] [facility] [address] Name: Alyssa Camacho RN Position: S RN Member Role: Primary Care Nurse Name: Keely Pascal RN Position: S RN Member Role: Primary Care Nurse Name: Chloe Fisher LPN Position: S RN Member Role: Primary Care Nurse Care Team Related Persons Name: LAZRAUS OSBORNE Address: [place] [address] Name: KAVON NICOLE Address: [address] [place] [address] Name: , [facility] NONE
--- OUTSIDE RECORDS SUMMARY | 2023-08-21 08:43 | XMS_ITS | Continuity of Care Document ---
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 Role Phone Graciela Nunez MD Primary Care Physician En[place] [facility] [place](s): 11/10/21 - 12/10/21 [facility] [address] [place], [place] [address] Allergies, Adverse Reactions, Alerts Substance [...] 23-valent vaccine 6 07/31/10 Recorded 1Result Comment: [id number] given w/out incident 2Location History: [place], [place] 3Admin Note: done @ dr jones office 4Location History: [facility] 5Location History: [facility] [...] 10/22/21 15:09:00 EST, Route to Pharmacy Electronically, [facility][id number], Partial fill upon patient request if the pr... Start Date: 10/22/21 Status: Ordered diltiazem 180 mg/24 hours oral capsule, extended release 180 mg, 1, capsule, By Mouth, Daily, # 30 capsule, Refills 0, Tot. Refills 0, Maintenance, 11/06/2209:09:00 EST, Route to Pharmacy Electronically, [facility] #[id number], Partial fill upon patient request if the [...] Gm, 4 Refills, Maintenance, 12/03/21 12:34:00 EST, [place], [facility] #[id number], Partial fill upon patient request if the prescription is for a scheduleII opioid drug., 1 sprays Nares, Both Daily in AM,... Start Date: 12/03/21 Status: Ordered folic acid 1 mg oral tablet 1 mg, 1, tablet, By Mouth, Daily, # 30 tablet, Refills 5, Tot. Refills 5, Maintenance, 01/31/21 16:35:00 EDT, Route to Pharmacy Electronically, [facility] #[id number], 170, cm, 10/02/20 10:06:00EST, Height, 56.3, kg, [...] 08/26/21 10:50:00 EDT, Route to Pharmacy Electronically, [facility] #[id number], 162.56, cm, 08/22/21 2:36:00 EDT, Height, 52.65, kg, 08/22/21 2:36:00 EDT... Start Date: 08/26/21 Status: Ordered LORazepam 0.5 mg oral tablet 1 tablet = 0.5 mg, By Mouth, 2 times a day, PRN as needed for anxiety, # 28 tablet, 1 Refills, Maintenance, 12/02/21 10:54:00 EST, [facility] #[id number], 173, cm, 11/06/21 7:58:00 EST, Height, 46.2, kg, 10/29/21 15:33:00 EST, Dry Weight Start Date: 12/02/21 Status: Ordered MiraLax oral powder for reconstitution = 17 Gm, By Mouth, Daily, PRN Constipation, dissolve in water before taking, # 527 Gm, 0 Refills, Maintenance, 10/22/21 15:11:00 EST, REC Powder, [facility] #[id number], Partial fill upon patient request if the prescription is for a schedule II o... Start Date: 10/22/21 Status: Ordered multivitamin Multiple Vitamins oral tablet 1 tablet, By Mouth, Daily, # 30 tablet, 11 Refills, Maintenance, 11/26/21 13:34:00 EST, Tablet, [facility] #[id number], Partial fill upon patient request if the [...] 3 Refills, Maintenance, 03/13/21 13:26:00 EDT, Tablet, [facility] #[id number], 170, cm, 10/02/20 10:06:00 EST, Height, 56.3, kg, 11/24/19 22:58:00 EST, Dry Weight Start Date: 03/13/21 Status: Ordered Senna 8.6 mg oral tablet 17.2 mg, 2, tablet, By Mouth, Daily at bedtime, PRN, # 100 tablet, Refills 0, Tot. Refills 0, Maintenance, for constipation, 10/22/21 15:09:00 EST, Route to Pharmacy Electronically, [facility] #[id number] Tablet, Partial fill upon patient request... Start [...] Refills, Maintenance, 02/26/21 15:47:00 EDT, ER Tablet, [facility] #[id number], Partial fill upon patient requestif the prescription is for a schedule II opioid ivonne... Start Date: 02/26/21 Status: Ordered Ventolin HFA 108 mcg/inh inhalation aerosol with adapter 2 puffs, Inhalation, 4 times a day, PRN for wheezing, # 1 each, 0 Refills, Maintenance, 10/02/20 10:55:00 EST, Aerosol, [facility]/pharmacy #[id number], 170, cm, 10/02/20 10:06:00 EST, Height, 56.3, kg, 11/24/19 22:58:00 EST, Dry Weight Start Date: 10/02/20 Status: Ordered Vitamin D3 1000 intl units oral capsule 1 capsule = 25 mcg, By Mouth, Daily, # 30 capsule, 11 Refills, Maintenance, 12/02/21 10:55:00 EST, Capsule, [facility] #[id number], Partial fill upon patient request if the [...]
--- OUTSIDE RECORDS SUMMARY | 2023-08-21 08:43 | XMS_ITS | Continuity of Care Document ---
Author Name Unknown Organization 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 Name Role Phone Graciela Nunez MD Primary Care Physician [phone] Encounter [facility] [place] Date(s): 12/04/21 - 01/05/[address] [address] Attending Physician: Graciela Nunez MD Admitting Physician: [...] 23-valent vaccine 6 07/31/10 Recorded 1Result Comment: [id number] given w/out incident 2Location History: [place], [place] 3Admin Note: done @ dr jones office 4Location History: [facility] 5Location History: [facility] 6Location History: [facility] Medications aspirin 81 [...] 10/22/21 15:09:00 EST, Route to Pharmacy Electronically, [facility]#[id number], Partial fill upon patient request if the pr... Start Date: 10/22/21 Status: Ordered diltiazem 180 mg/24 hours oral capsule, extended release 180 mg, 1, capsule, By Mouth, Daily, # 30 capsule, Refills 0, Tot. Refills 0, Maintenance, 11/06/2209:09:00 EST, Route to Pharmacy Electronically, [facility] #[id number], Partial fill upon patient request if the prescription is for a schedule II... Start Date: 11/06/21 Status: Ordered Flonase 50 mcg/inh nasal spray 1 sprays, Nares, Both, Daily in AM, # 16 Gm, 4 Refills, Maintenance, 12/03/21 12:34:00 EST, [place], [facility] #[id number], Partial fill upon patient request if the prescription is for a scheduleII opioid drug., 1 sprays Nares, Both Daily in AM,... Start Date: 12/03/21 Status: Ordered folic acid 1 mg oral tablet 1 mg, 1, tablet, By Mouth, Daily, # 30 tablet, Refills 5, Tot. Refills 5, Maintenance, 01/31/21 16:35:00 EDT, Route to Pharmacy Electronically, [facility] #[id number], 170, cm, 10/02/20 10:06:00EST, Height, 56.3, kg, [...] 08/26/21 10:50:00 EDT, Route to Pharmacy Electronically, [facility] #[id number], 162.56, cm, 08/22/21 2:36:00 EDT, Height, 52.65, kg, 08/22/21 2:36:00 EDT... Start Date: 08/26/21 Status: Ordered lactulose 10 gm/15 ml oral syrup 15 mL = 10 Gm, By Mouth, Every 72 hours, PRN as needed for constipation, # 300 mL, 5 Refills, Maintenance, 01/05/22 10:50:00 EST, Syrup, [facility] #[id number], Partial fill upon patient requestif the prescription [...] Acute 01/10/22 10:26:00EST, 12/17/21 10:18:00 EST, [place], [facility] #[id number], Partial fill upon patient request if the prescription is for a schedule II opioid... Start Date: 12/17/21 Stop Date: 01/10/22 Status: Ordered nicotine 21 mg/24 hr transdermal film, extended release 1 patch, Topically, Daily, for 6 week(s), # 42 patch, 0 Refills, Acute 02/06/22 16:15:00 EDT, 12/26/21 16:15:00 EST, Patch, [facility] #[id number], Partial fill upon patient request if the [...] is... Start Date: 12/20/21 Status: Ordered nystatin 155277 u/ml oral suspension 5 mL = 500,000 units, By Mouth, 4 times a day, for 7 days, swish and swallow, # 140 mL, 0 Refills, Acute 01/12/22 11:10:00 EDT, 01/05/22 11:10:00 EST, Susp[place], [facility] #[id number], Partialfill upon patient request if the prescription [...] 0 Refills, Maintenance, 12/22/21 14:25:00 EST, Tablet, [facility] #[id number], Partial fill upon patient requ... Start Date: 12/22/21 Stop Date: 12/25/21 Status: Ordered predniSONE 10 mg oral tablet See Instructions, 4 tabs x 3 days, 3 tabs x 3 days, 2 tabs x 3 days, 1 tab x 3 days, # 30 tablet, 0Refills, Acute 02/07/22 11:15:00 EDT, 01/05/22 11:08:00 EST, Tablet, [facility] #[id number], Partial fill upon patient request if the [...] 10/22/21 15:09:00 EST, Route to Pharmacy Electronically, [facility] #[id number] Tablet, Partial fill upon patient request... Start Date: 10/22/21 Status: Ordered sertraline 25 mg oral tablet 1 tablet = 25 mg, By Mouth, Daily, # 30 tablet, 5 Refills, Maintenance, 01/05/22 11:02:00 EST, Tablet, [facility] #[id number], Partial fill upon patient request if the [...] Refills, Maintenance, 02/26/21 15:47:00 EDT, ER Tablet, [facility] #[id number], Partial fill upon patient requestif the prescription is for a schedule II opioid ivonne... Start Date: 02/26/21 Status: Ordered Ventolin HFA 108 mcg/inh inhalation aerosol with adapter 2 puffs, Inhalation, 4 times a day, PRN for wheezing, # 1 each, 0 Refills, Maintenance, 10/02/20 10:55:00 EST, Aerosol, [facility]/pharmacy #[id number], 170, cm, 10/02/20 10:06:00 EST, Height, 56.3, kg, 11/24/19 22:58:00 EST, Dry Weight Start Date: 10/02/20 Status: Ordered Vitamin D3 1000 intl units oral capsule 1 capsule = 25 mcg, By Mouth, Daily, # 30 capsule, 11 Refills, Maintenance, 12/02/21 10:55:00 EST, Capsule, [facility] #[id number], Partial fill upon patient request if the [...]
--- OUTSIDE RECORDS SUMMARY | 2023-08-21 08:43 | XMS_ITS | Continuity of Care Document ---
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 Name Role Phone Graciela Nunez MD Primary Care Physician [phone] [place]counter [facility] [place](s): 04/09/22 - 05/09/22 [facility] [address] [place], [place] [address] Allergies, Adverse Reactions, Alerts Substance [...] 23-valent vaccine 6 07/31/10 Recorded 1Result Comment: [id number] given w/out incident 2Location History: [place], [place] 3Admin Note: done @ dr jones office 4Location History: [facility] 5Location History: [facility] 6Location History: [facility] Medications aspirin 81 mg [...] 3 Refills, Maintenance, 04/09/22 9:54:00 EDT, Tablet, [facility] #[id number], Partial fill upon patient request if the prescription is for a schedule II opioid drug., 1 tablet By Mouth Daily, 170, cm, 02/04... Start Date: 04/09/22 Status: Ordered busPIRone 10 mg oral tablet 10 mg, 1, tablet, By Mouth, 3 times a day, # 90 tablet, Refills 1, Tot. Refills 1, Maintenance, 04/28/22 16:25:00 EDT, Route to Pharmacy Electronically, [facility] #[id number], new dosage, 170, cm, 02/04/22 11:19:00 EDT, Height, 44.1, kg, ... Start Date: 04/28/22 Status: Ordered calcium (as carbonate)-vitamin D 500 mg-400 intl units oral tablet 1 tablet, By Mouth, 2 times a day, calcium 500/vitamin d 400 iu twice daily, # 60 tablet, 6 Refills, Maintenance, 02/11/22 10:15:00 EDT, Tablet, [facility] #[id number], Partial fill upon patientrequest if the prescription is for a schedule II op... Start Date: 02/11/22 Status: Ordered Colace sodium 100 mg oral capsule 100 mg, 1, capsule, By Mouth, 2 times a day, PRN, # 60 capsule, Refills 5, Tot. Refills 5, Maintenance, for constipation, 02/04/22 11:08:00 EDT, Route to Pharmacy Electronically, [facility]#[id number], prefers gel formulation, 170, cm, 02/04/22... Start Date: 02/04/22 Status: Ordered diltiazem 180 mg/24 hours oral capsule, extended release 180 mg, 1, capsule, By Mouth, Daily, # 30 capsule, Refills 0, Tot. Refills 0, Maintenance, 11/06/2209:09:00 EST, Route to Pharmacy Electronically, [facility] #[id number], Partial fill upon patient request if the prescription is for a schedule II... Start Date: 11/06/21 Status: Ordered Flonase 50 mcg/inh nasal spray 1 sprays, Nares, Both, Daily in AM, # 16 Gm, 4 Refills, Maintenance, 12/03/21 12:34:00 EST, [place], [facility] #[id number], Partial fill upon patient request if the prescription is for a scheduleII opioid drug., 1 sprays Nares, Both Daily in AM,... Start Date: 12/03/21 Status: Ordered folic acid 1 mg oral tablet 1 mg, 1, tablet, By Mouth, Daily, # 30 tablet, Refills 11, Tot. Refills 11, Maintenance, 02/25/22 16:15:00 EDT, Route to Pharmacy Electronically, [facility] #[id number], 170, cm, 02/04/22 11:19:00 EDT, Height, 44.1, [...] 02/09/22 15:13:00 EDT, Route to Pharmacy Electronically, [facility] #[id number], 170, cm, 02/04/22 11:19:00 EDT, Height, 44.1, kg, 12/20/21 16:05:00 EST,... Start Date: 02/09/22 Status: Ordered Hair, Skin & Nails 5 mg oral capsule 1 capsule = 5 mg, By Mouth, Daily, # 90 capsule, 3 Refills, Maintenance, 02/19/22 12:29:00 EDT, [facility] #[id number], Partial fill upon patient request if the prescription is for a schedule IIopioid drug., 1 capsule By Mouth Daily, 170, cm, 04... Start Date: 02/19/22 Status: Ordered lactulose 10 gm/15 ml oral syrup 15 mL = 10 Gm, By Mouth, Every 72 hours, PRN as needed for constipation, # 300 mL, 5 Refills, Maintenance, 03/19/22 14:45:00 EDT, Syrup, [facility] #[id number], Partial fill upon patient requestif the prescription is for a schedule II opioid ivonne... Start Date: 03/19/22 Status: Ordered LORazepam 0.5 mg oral tablet 1 tablet = 0.5 mg, By Mouth, 3 times a day, # 60 tablet, 3 Refills, Maintenance, 04/28/22 16:24:00 EDT, Tablet, [facility] #[id number], Partial fill upon patient request if the [...] 10/22/21 15:09:00 EST, Route to Pharmacy Electronically, [facility] #[id number] Tablet, Partial fill upon patient request... Start [...] Refills, Maintenance, 02/26/21 15:47:00 EDT, ER Tablet, [facility] #[id number], Partial fill upon patient requestif the prescription is for a schedule II opioid ivonne... Start Date: 02/26/21 Status: Ordered Ventolin HFA 108 mcg/inh inhalation aerosol with adapter 2 puffs, Inhalation, 4 times a day, PRN for wheezing, # 1 each, 0 Refills, Maintenance, 10/02/20 10:55:00 EST, Aerosol, [facility]acy #[id number], 170, cm, 10/02/20 10:06:00 EST, Height, 56.3, kg, 11/24/19 22:58:00 EST, Dry Weight Start Date: 10/02/20 Status: Ordered Vitamin D3 1000 intl units oral capsule 1 capsule = 25 mcg, By Mouth, Daily, # 30 capsule, 11 Refills, Maintenance, 12/02/21 10:55:00 EST, Capsule, [facility] #[id number], Partial fill upon patient request if the [...]
--- OUTSIDE RECORDS SUMMARY | 2023-08-21 08:43 | XMS_ITS | Continuity of Care Document ---
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 Name Role Phone Graciela Nunez MD Primary Care Physician Encounter [facility] Date(s): 05/11/23 - 05/19/[address] [id number]- Encounter Diagnosis COPD exacerbation(Final) - 05/11/23 Hyponatremia(Final) - 05/11/23 Discharge Disposition: A-Transfer SNF Attending Physician: Elijah Avery MD Admitting Physician: Yoan Bocanegra MD Referring Physician: Not on Staff, Referring [...] 23-valent vaccine 6 07/31/10 Recorded 1Result Comment: [id number] given w/out incident 2Location History: [place], [place] 3Admin Note: done @ dr jones office 4Location History: [facility] 5Location History: [facility] 6Location History: [facility] Medications Acetaminophen Tablet 650 mg, Tablet, By Mouth, Every 4 hours, PRN for Pain , Mild, Temperature Greater than 100.5, Routine, 05/11/23 1:03:00 EDT Start Date: 05/11/23 Stop Date: 05/20/23 Status: Discontinued albuterol-ipratropium 3 mg-0.5 mg/3 ml inhalation solution [...] 02/11/23 12:27:00 EDT, Route to Pharmacy Electronically, [facility]/pharmacy #[id number], Partial fill upon patient request if the prescription is... Start Date: 02/11/23 Stop Date: 03/25/23 Status: Ordered baclofen 10 mg oral tablet 5 mg, Tablet, By Mouth, 05/19/23 15:00:00 EDT Start Date: 05/19/23 Stop Date: 05/19/23 Status: Completed Compression Stockings See Instructions, # 2 Unknown, Refills 12, Tot. Refills 12, Maintenance, surgical, knee length 20-30 mm Hg 2 pairs every 3 months Dx: edema ICD 10 code R 60.0, 04/29/23 8:15:00 EDT, Supply Start Date: 04/29/23 Status: Ordered docusate sodium 100 mg oral capsule TAKE 1 CAPSULE BY MOUTH 2 TIMES A DAY NEEDED FOR CONSTIPATION. [facility] Start Date: 03/18/23 Status: Ordered folic acid 1 mg oral tablet 1 mg, 1, tablet, By Mouth, Daily, # 30 tablet, Refills 11, Tot. Refills 11, Maintenance, 12/03/22 9:01:00 EST, Route to Pharmacy Electronically, [facility]/pharmacy #[id number], 170, cm, 02/04/22 11:19:00 EDT, Height, 44.1, kg, 12/20/21 16:05:00 EST, Dry Weight Start Date: 12/03/22 Status: Ordered gabapentin 300 mg oral capsule 2, capsule, By Mouth, 3 times a day, # 180 capsule, Refills 5, Tot. Refills 5, Maintenance, 08/13/22 13:03:00 EDT, Route to Pharmacy Electronically, [facility]/pharmacy #[id number], 170, cm, 02/04/22 11:19:00 EDT, Height, 44.1, kg, 12/20/21 16:05:00 EST, Dry Weight Start Date: 08/13/22 Status: Ordered gabapentin 300 mg oral capsule 600 mg, Capsule, By Mouth, 05/19/23 15:00:00 EDT Start Date: 05/19/23 Stop Date: 05/19/23 Status: Completed hydrOXYzine hydrochloride 10 mg oral tablet 3 tablet = 30 mg, By Mouth, 3 times a day, PRN NEEDED FOR ANXIETY, # 270 tablet, 3 Refills, Maintenance, 03/01/23 12:03:00 EDT, [facility]/pharmacy #[id number], 170, cm, 02/04/22 11:19:00 EDT, Height, 44.1, kg, 12/20/21 16:05:00 EST, Dry Weight Start Date: 03/01/23 Status: Ordered metoprolol 25 mg oral tablet 75 mg, By Mouth, 3 times a day, Refills 0, Maintenance, 05/19/23 14:09:00 EDT, Partial fill upon patient request if the prescription is for a schedule II opioid drug. Start Date: 05/19/23 Status: Ordered metoprolol 25 mg oral tablet 75 mg, Tablet, By Mouth, 05/19/23 15:00:00 EDT Start Date: 05/19/23 Stop Date: 05/19/23 Status: Completed multivitamin Multiple Vitamins oral capsule 1 capsule, By Mouth, Daily, # 90 capsule, 3 Refills, Maintenance, 12/16/22 9:12:00 EST, Capsule, [facility]/pharmacy #[id number], Partial fill upon patient request [...] Refills, Maintenance, 12/03/22 9:00:00 EST, Capsule, [facility]/pharmacy #[id number], Partial fill upon patient request if the [...] Results Orders for Microbiology Reports Name Date Sputum Culture w/ Gram Smear 05/15/23 Blood Culture 05/10/23 Blood Culture #2 05/10/23 Microbiology Reports TEST:Sputum Culture STATUS:Auth (Verified) BODY SITE: SOURCE:EXPECT COLLECTED DATE/TIME:05/15/23 11:10 AM Sputum Culture SPECIMEN DESCRIPTION : EXPECTORATED SPUTUM SPECIAL REQUESTS : NONE GRAM STAIN : 4+ POLYMORPHONUCLEAR LEUKOCYTES 1+ TISSUE CELLS 1+ GRAM POSITIVE COCCI CULTURE : 3+ NORMAL MIYA REPORT STATUS : FINAL 05/17/2023 TEST:Blood Culture, Second Order STATUS:Auth (Verified) BODY SITE: SOURCE:Blood COLLECTED DATE/TIME:05/10/23 11:36 PM Blood Culture, Second Order SPECIMEN DESCRIPTION : BLOOD NO SITE SPECIAL REQUESTS : NONE CULTURE : NO GROWTH 5 DAYS. REPORT STATUS : FINAL 05/16/2023 TEST:Blood Culture STATUS:Auth (Verified) BODY SITE: SOURCE:Blood COLLECTED DATE/TIME:05/10/23 10:36 PM Blood Culture SPECIMEN DESCRIPTION : BLOOD R AC SPECIAL REQUESTS : NONE CULTURE : NO GROWTH 5 DAYS. REPORT STATUS : FINAL 05/16/2023 Radiology Reports * Exam Date Time Procedure Performing Provider Status 05/14/23 5:[address] Angio Chest Colon , Mary; Modifi ed Notes: (CT Angio Chest) Reason For Exam: Pain RESULT: CT Angio Chest EXAMINATION: CT Angio Chest INDICATION: Reason: Pain; Clinical Question(s): Pulmonary Embolism; Order Comment: TECHNIQUE: Spiral CTA of the chest was performed after rapid IV contrast administration without cardiac gating, triggered by an JESSICA on the main pulmonary artery. Images are formatted in multiple planes using 2-D multiplanar and 3-D maximum intensity projection. 100 cc of Omnipaque 300 was administered intravenously. Weight-based protocol using automatic tube modulation was used to optimize exposure parameters. CTDIvol Body: 7.13 mGy, DLP Body: 344 mGy*cm. COMPARISONS: None. ANGIOGRAPHIC FINDINGS: No pulmonary embolism to the subsegmental level. Normal caliber pulmonary arteries. No acute aortic abnormality seen on this study performed without cardiac gating. The main pulmonary artery measures 3.7 cm. NON-ANGIOGRAPHIC FINDINGS: Medical Specialist View Findings, Lines and Tubes: None. Trachea and Airways: Patent without evidence of tracheal or endobronchial lesion. Lungs and Pleura: Mild centrilobular emphysematous changes. Septal thickening with groundglass opacities within the lung apices and bases. There is a patchy opacity in the right lower lobe and right middle lobe. Left lower lobe atelectasis. There is 9 x 8 mm nodular density within superior segment of the right lower lobe. Trace right pleural effusion. No effusion or pneumothorax. Mediastinum and shelley: No mass or hematoma. No mediastinal or hilar lymphadenopathy. No esophageal abnormality. Small hiatal hernia. Heart: Heart is normal in size. No pericardial effusion. Chest Wall Soft Tissues: Bilateral breast prostheses.. Diaphragm and upper abdomen: No significant abnormality. Bones: No acute abnormality. IMPRESSION: No evidence of pulmonary embolism. Pulmonary artery hypertension. 9 x 8 mm nodular density in the superior segment of the right lower lobe. Recommend chest CT in 3 months or PET/CT. Right lower lobe pneumonia. Recommend follow-up to resolution. Mild centrilobular emphysematous changes. An actionable message (Jackson) has been communicated via the [employer] system on 05/14/2023 9:01 PM, Message ID [id number]. WSN: [id number] Ordering Physician: Robert Recinos Dictated By: Sharon Otto MD Dictated Date/Time: 05/14/23 9:01 pm Reviewed By: Sharon Otto MD Signed By: Sharon Otto MD Signed Date/Time: 05/14/23 9:01 pm Transcribed By: VALENTIN Transcribed Date/Time: 05/14/23 8:44 pm * Exam Date Time Procedure Performing Provider Status 05/14/23 2:56 PM Chest Portable Olga Romero; Auth (V erified) Notes: (Chest Portable) Reason For Exam: Cough RESULT: Chest Portable Chest Portable Reason: Cough; Clinical Question(s): Aspiration COMPARISON: 05/10/2023 FINDINGS: LINES AND TUBES: None. LUNGS AND PLEURA: New right basilar opacity with blunting of the costophrenic angle. No definite left pleural effusion. No pneumothorax. HEART, MEDIASTINUM AND SHELLEY: Heart is normal in size. Normal mediastinal and hilar contour. BONES AND SOFT TISSUES: No acute abnormality. Calcified breast implants. IMPRESSION: New right basilar opacity with blunting of the right costophrenic angle likely reflecting pleural effusion with overlying atelectasis or pneumonia. An actionable message (Jackson) has been communicated via the [employer] system on 05/14/2023 3:03 PM, Message ID [id number]. WSN: [id number] Ordering Physician: Robert Recinos Dictated By: Keiko Rubio MD Dictated Date/Time: 05/14/23 3:03 pm Reviewed By: Keiko Rubio MD Signed By: Keiko Rubio MD Signed Date/Time: 05/14/23 3:03 pm Transcribed By: VALENTIN Transcribed Date/Time: 05/14/23 3:02 pm * Exam Date Time Procedure Performing Provider Status 05/11/23 5:32 PM US Doppler Ext Lower Venous Bilat Peggy Dawkins; Auth (Verified) Notes: (US Doppler Ext Lower Venous Bilat) Reason For Exam: Pain/Tenderness Extremities RESULT: US Doppler Ext Lower Venous Bilat US Doppler Ext Lower Venous Bilat Reason: Pain Tenderness Extremities; Clinical Question(s): Thrombosis COMPARISON: None IMAGING TECHNIQUE: Ultrasound of the veins from the groin through the calf was performed using grayscale, color, and spectral Doppler ultrasound assessing for complete compressibility and normal flowcharacteristics. FINDINGS: RIGHT LOWER EXTREMITY: Common femoral vein: Patent. No thrombosis. Femoral vein: Patent. No thrombosis. Popliteal vein: Patent. No thrombosis. Gastrocnemius veins: The visualized portions are patent without evidence of thrombosis. Peroneal veins: The visualized portions are patent without evidence of thrombosis. Posterior tibial veins: The visualized portions are patent without evidence of thrombosis. LEFT LOWER EXTREMITY: Common femoral vein: Patent. No thrombosis. Femoral vein: Patent. No thrombosis. Popliteal vein: Patent. No thrombosis. Gastrocnemius veins: The visualized portions are patent without evidence of thrombosis. Peroneal veins: The visualized portions are patent without evidence of thrombosis. Posterior tibial veins: The visualized portions are patent without evidence of thrombosis. OTHER FINDINGS: None. IMPRESSION: No evidence of deep venous thrombosis. WSN: [id number] Ordering Physician: Cesar Paredes Dictated By: Grzegorz Santiago MD Dictated Date/Time: 05/11/23 5:46 pm Reviewed By: Grzegorz Santiago MD Signed By: Grzegorz Santiago MD Signed Date/Time: 05/11/23 5:46 pm Transcribed By: VALENTIN Transcribed Date/Time: 05/11/23 5:46 pm * Exam Date Time Procedure Performing Provider Status 05/10/23 11:10 PM Chest Portable Sean Ontiveros; Auth (V erified) Notes: (Chest Portable) Reason For Exam: Shortness of Breath RESULT: Chest Portable Chest Portable Reason: Shortness of Breath; Clinical Question(s): CHF COMPARISON: Multiple priors most recently 04/14/2023 FINDINGS: LINES AND TUBES: None. LUNGS AND PLEURA: Clear lungs. Normal pulmonary vascularity. No pleural effusion. No pneumothorax. HEART, MEDIASTINUM AND SHELLEY: Heart is normal in size. Aorta is calcified. BONES AND SOFT TISSUES: Unchanged rim calcification of bilateral breast implants. No acute osseous abnormality. IMPRESSION: No acute abnormality. I have personally reviewed the images and I agree with this report. WSN: [id number] Ordering Physician: Yudelka Reis Dictated By: Cindy Recinos DO Dictated Date/Time: 05/10/23 11:28 p Reviewed By: Grzegorz Santiago MD Signed By: Grzegorz Santiago MD Signed Date/Time: 05/10/23 11:33 pm Transcribed By: VALENTIN Transcribed Date/Time: 05/10/23 11:13 pm Vital Signs Most recent to oldest [Reference Range]: 1 2 3 Weight 48.5 kg (05/17/23 6:38 AM) 47.4 kg (05/16/23 2:00 AM) 47.3 kg (05/15/23 2:22 AM) Oxygen Saturation [94-100 %] 100 % (05/19/23 2:05 PM) 100 % (05/19/23 11:00 AM) 97 % (05/19/23 8:00 AM) Pulse Rate [55-90 bpm] 87 bpm (05/19/23 3:15 PM) 87 bpm (05/19/23 2:05 PM) 88 bpm (05/19/23 11:00 AM) Blood Pressure [90-138/55-84 mm Hg] 141/62mm Hg *H* (05/19/23 3:15 PM) 141/62mm Hg *H* (05/19/23 2:05 PM) 120/77mm Hg (05/19/23 11:00 AM) Respiratory Rate [16-30 br/min] 20 br/min (05/19/23 4:15 PM) 20 br/min (05/19/23 3:15 PM) 20 br/min (05/19/23 3:15 PM) Temperature [96.8-100.4 DegF] 98.0 DegF (05/19/23 2:05 PM) 98 DegF (05/19/23 11:00 AM) 98.2 DegF (05/19/23 8:00 AM) Liters per Minute 4 L/min (05/19/23 11:00 AM) 4 L/min (05/19/23 8:00 AM) 4 L/min (05/19/23 3:38 AM) Mode of Delivery (Oxygen) Room air (05/19/23 2:05 PM) Nasal cannula (05/19/23 11:00 AM) Nasal cannula (05/19/23 8:00 AM) Blood pressure sites Arm, right (05/19/23 11:00 AM) Arm, right (05/19/23 3:38 AM) Arm, left (05/18/23 11:36 PM) Temperature Route Oral (05/19/23 2:05 PM) Oral (05/19/23 11:00 AM) Oral (05/19/23 8:00 AM) Dry Weight 45.2 kg (05/11/23 2:35 AM) Weight Obtained Via Bed scale (05/17/23 6:38 AM) Bed scale (05/16/23 2:00 AM) Bed scale (05/15/23 2:22 AM) Social History Social History Type Response Tobacco Other: now smoking 1 /2 pack per day. Sex Admission evaluation note * Cesar Paredes DO: PERFORM, MODIFY, MODIFY Event Display: Admission Note Authored Date: [id number] Patient: ??KATERNIE NICOLE ? Age:??62 Years?Sex:??Female?:??1960?? Chief Complaint/Reason for Consultation Shortness of breath History of Present Illness Per MPage: 62 yof w/ history of chronic hypoxic hypercapnic respiratory failure from advanced COPD on 6 L at baseline, HFr EF and chronic hyponatremia, p/w/ resp distress, hypoxic by EMS, requiring NIV, noted to have WBC of 15 w/o apparent PNA on CXR,?? severe hypoNa of 114 asymptomatic and initialtrop of 66, felt to be 2/2 demand, repeat pending.?? ED will reach out renal d/t hypo Na?Dx: copd exacerbation, hypoxic resp failure, hyponatremia, elevated trop. ?? Ms.??Katerine Nicole is a 62-year-old lady with medical history notable for chronic hypoxemic respiratory failure (on 5 L O2 at baseline) in setting of end- stage COPD, hyperlipidemia, paroxysmal atrial flutter, peripheral neuropathy, multiple compression fractures, and hyponatremia who presented tothe emergency department with shortness of breath.??Due to somnolence, Ms. Nicole was an imperfect historian on presentation. ??Collateral information obtained via chart review and from her daughter, Holly. ?? Ms. 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 ??Sodium anjelica of 116 during that admission, improved to 131 on discharge. ??Was treated with salt tabs and urea while inpatient with dischargerecommendations to continue urea and fluid restrict to 1.5 L daily. It is noted during a telehealth inpatient follow-up visit on 04/22 that the patient is always on 6 to 6.5 L supplemental oxygen via nasal cannula at home. ??During that encounter, she was not breathing too good. ??It was also noted during that telehealth visit that Ms. Nicole had not been restricting her fluids and had been drinking watermelon juice, water, milk, coffee, and cereal with milk. ??Her urea was undergoing prior authorization, however she had enough packets to get her through the first week following her discharge. ??Was unable to get to the lab for repeat sodium levels due to mobility issues. ??[facility] May. ??Noted that she had new onset lower extremity edema, tac hycardia, and worsening hyponatremia down to 128 despite urea twice daily and presumed fluid restriction. ??On 05/05 was recommended to present to the emergency department. ??It does not appear that she presented to the emergency department until 05/10 when she presented in respiratory distress.?? Throughout this time, there have been ongoing discussions regarding prior authorization for urea, however it appears that this was finally obtained on 05/07.?? The patient's daughter, Holly notes that atbaseline does have challenges with breathing, oxygen??requirements??typically include 6 L via nasalcannula on the low end.?? She also notes that her mother has??had increasing shortness of breath recently and been utilizing the bathroom multiple times a day.?? 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 ??When??evaluated for admission,??Ms. Nicole was on BiPAP, arousable to??verbal stimulation and??light touch, though would fall back asleep??almost instantaneously.?? ABG obtained??which??revealed pH 7.33/PCO2 66/PO2 117/bicarb 34 while on FiO2 50%. ??FiO2 was decreased down to 30%. ??When reevaluated later??overnight, patient was more alert??and interactive.?? Denied being in any pain, however??was not able to provide??substantially more history.?? Breathing also improved. ?? In the emergency department, tachycardic into the 110s and on BiPAP with FiO2 50%.??CBC with neutrophil predominant leukocytosis???WBC 15.5/neutrophil 13.8. ??Sodium 114, potassium hemolyzed, chloride 73, bicarbonate 31. ??Alk phos 112, AST 71/ALT 26. ??Lactate 1.6. ??NT proBNP elevated at 9101 (consistent with most recent presentation), high-sensitivity troponin 66 (prior 24), and COVID-19 negative. ??Plain film of chest was without acute abnormality. ??While in the emergency department, received IV methylprednisolone, azithromycin, and ceftriaxone as well as albuterol and ipratropium nebulizers. ?? Medication reconciliation??done based on??most recent??medication pickups. Review of Systems Challenging to completely assess given mental status and BiPAP in place.?? Otherwise as noted above. Objective Vital Signs?? Temperature: 98.6 DegF (05/11/23 06:00:00) Temperature Route: Axillary (05/11/23 06:00:00) Pulse Rate:??124 bpm??High (05/11/23 06:00:00) Heart Rate Monitored:??130 bpm??High (05/11/23 04:48:00) Respiratory Rate: 22 br/min (05/11/23 06:00:00) Systolic Blood Pressure:??148 mm Hg??High (05/11/23 06:00:00) Diastolic Blood Pressure:??91 mm Hg??High (05/11/23 06:00:00) Blood pressure sites: Arm, right (05/11/23 06:00:00) Mean Arterial Pressure: 99 mm Hg (05/11/23 02:35:00) Pulse Pressure: 57 mm Hg (05/11/23 06:00:00) Oxygen Saturation: 100 % (05/11/23 06:00:00) Mode of Delivery (Oxygen): BiPAP (05/11/23 06:00:00) FiO2: 45 % (05/11/23 04:48:00) Early Warning Score: 6 (05/11/23 06:05:25) ? Physical Exam General:??Somnolent, in no acute cardiopulmonary distress. Mental Status:??Awakens, somewhat sleepy, though normal??affect. Responding appropriately to questions. HEENT:??Normocephalic. Respiratory:??BiPAP in place, light wheezing bilaterally. Cardiovascular:??Regular rate and rhythm, no murmurs, rubs, or gallops.?? Gastrointestinal:??Abdomen soft, nontender, nondistended, bowel tones present. No hepatosplenomegaly appreciated. Neurologic:??Cranial nerves II-XII grossly intact. Moves all extremities spontaneously. Extremities:??Bilateral lower extremity edema with??redness, swelling appears worse on left than right. Musculoskeletal:??Diffuse muscle wasting, very thin and cachectic??appearing. Assessment/Plan Assessment:??Ms. Katerine Nicole is a 62-year-old lady with medical history notable for chronic hypoxemic respiratory failure (on 5 L O2 at baseline) in setting of end-stage COPD, hyperlipidemia, paroxysmal atrial flutter, peripheral neuropathy, multiple compression fractures, and hyponatremia who presented to the emergency department with shortness of breath. Evaluation in emergency department??concerning for??acute superimposed on??chronic??hypoxemic/hypercapnic respiratory failure in setting of??COPD exacerbation??as well as??substantial??hyponatremia with sodium down to 114.??This presentation is quite similar to??recent presentation in April 2023.??Now admitted for further evaluation and management. ?? Acute hypercapnic respiratory failure (J96.02):?? Acute hypoxemic respiratory failure (J96.01):?? Chronic respiratory failure (J96.10):?? COPD exacerbation (J44.1):?? Emphysema/COPD (J43.9):?? Well-known end-stage COPD on??6+ liters??home oxygen??at baseline??and recent COPD exacerbation. Presenting with??recurrence of COPD exacerbation??requiring BiPAP; hypoxemic/hypercapnic respiratory failure evident. Suspect that this is contributing to her??altered mental status,??seems to improving with??noninvasive positive pressure ventilation. Notably, does continue to smoke??cigarettes, will need further counseling on this. ?? Plan: ?DuoNebs scheduled??and??as needed ??? Intercare admission, continue BiPAP ?Prednisone 60 mg daily -- Will likely need taper ?Azithromycin 500 mg x2 days ??? Consider pulmonology consult ??? Procalcitonin to rule out pneumonia ?pvc monitor ?? Hyponatremia (E87.1): Lower extremity edema/volume overload: Much like was last presentation,??patient again returns with??profound hyponatremia,??114 on admission. During last presentation,??labs consistent with SIADH. ??Labs thus far are as well, will??complete work-up. RTANE notified in the emergency department, recommended obtaining??urine studies??and osmolality. Has slowly been improving with??fluid restriction. ??Patient does appear slightly volume overloadedon exam. ?? Plan: ?Close follow-up of sodium ?Fluid restriction ??? RTANE consulted ??? Intake/output ??? Urine studies ??? LE??Doppler US ?? Chronic and/or Stable Medical Conditions: Anxiety (F41.9):??Continue home sertraline. Would add back home lorazepam when more awake. Tobacco use (Z72.0): Nicotine patches ordered. Paroxysmal atrial flutter (I48.92):??Home??metoprolol. Telemetry. Hypertension (I10):??Vitals per unit standard. Home regimen. Hyperlipidemia (E78.5):??Home atorvastatin. ?? Quality Measures: VTE Prophylaxis:??Subcutaneous Heparin Code Status:??Full Code; discussed with daughter on admission Ongoing Medical Necessity:??Respiratory failure, hyponatremia Discharge Planning:??Pending further management Family/HCP: DaughterHolly updated via phone on admission. Patient seen and evaluated 05/11. ? Histories Allergies Allergies ?(Active and Proposed [...] Surgical History Hysterectomy Osteopetrosis Breast implant ? Family History Mother: Cancer of lung Father: Brain tumor ? 09-MAR-2015 22:20:40<$> Other: Hypertension Sister: Cancer of colon ? Social History Ongoing tobacco use ?? Medications Home Medications Albuterol (Ventolin HFA 108 [...] A DAY NEEDED FOR CONSTIPATION. FILLED AT [facility] Ntractive Medical Equipment (Wheelchair)?See Instructions?small sizewt: 100 lbs ??ht: 5'7 ??lifetime needcopd J44.9 Durable Medical Equipment (Compression Stockings)?See Instructions?surgical, knee length 20-30 mm Hg2 pairs every 3 monthsDx: edema ICD 10 code R 60.0 Folic Acid (folic acid 1 mg oral [...] days and then continue 10 mg daily. PredniSONE (predniSONE 10 mg oral tablet)?See Instructions?2 tabs by mouth daily for 3 days, 1 tab by mouth daily for 3 days Sertraline (sertraline 25 mg oral tablet)?TAKE 1 TABLET BY MOUTH EVERY DAY Tiotropium (Spiriva HandiHaler 18 mcg ??Inhalation Capsule)?18?Microgram?Inhalation?Daily Tramadol (traMADol 50 mg oral tablet)?1?tab(s)?50?Milligram?By Mouth?3 times a day with meals?TAKE 1 TABLET BY MOUTH 3 TIMES A DAY FOR 7 DAYS NEEDED FOR PAIN urea powder (urea 15 g oral powder for reconstitution)?15?gram?By Mouth?2 times a day?follow up with renal for additional directives ? EKG study * Event Display: ECG 12-Lead Authored Date: Please click on pdf link to open report * Event Display: ECG 12-Lead Authored Date: Ventricular Rate: 118 BPM Atrial Rate: 118 BPM P-R Interval: 146 ms QRS Duration: 78 ms Q-T Interval: 324 ms QTC Calculation(Bazett): 454 ms P [place]: 73 degrees R [place]: 52 degrees T [place]: 99 degrees Sinus tachycardia with Premature supraventricular complexes Possible Left atrial enlargement Borderline ECG When compared with ECG of 15-MAY-2023 18:05, Sinus rhythm has replaced Atrial fibrillation ST no longer depressed in Inferior leads ST no longer depressed in Anterolateral leads T wave inversion no longer evident in Inferior leads T wave inversion no longer evident in Lateral leads Confirmed by LIMA MOLINA MD ([id number]) on 05/19/2023 12:14:22 PM [place]: LIMA MOLINA MD * Event Display: ECG 12-Lead Authored Date: [id number] Please click on pdf link to open report * Event Display: ECG 12-Lead Authored Date: [id number] Ventricular Rate: 162 BPM Atrial Rate: 178 BPM QRS Duration: 82 ms Q-T Interval: 272 ms QTC Calculation(Bazett): 446 ms R [place]: 58 degrees T [place]: 224 degrees Atrial fibrillation with rapid ventricular response ST and T wave abnormality, consider inferolateral ischemia Abnormal ECG When compared with ECG of 13-MAY-2023 08:35, MANUAL COMPARISON REQUIRED, DATA IS UNCONFIRMED Confirmed by LIMA MOLINA MD ([id number]) on 05/16/2023 8:20:57 AM [place]: LIMA MOLINA MD * Event Display: ECG 12-Lead Authored Date: Please click on pdf link to open report * Event Display: ECG 12-Lead Authored Date: Ventricular Rate: 130 BPM Atrial Rate: 163 BPM P-R Interval: 152 ms QRS Duration: 76 ms Q-T Interval: 312 ms QTC Calculation(Bazett): 459 ms P [place]: 74 degrees R [place]: 45 degrees T [place]: 89 degrees Sinus tachycardia with Premature atrial complexes Nonspecific ST and T wave abnormality Abnormal ECG When compared with ECG of 14-APR-2023 13:05, Premature ventricular complexes are no longer Present Premature atrial complexes are now Present Confirmed by PHYLLIS KEMP ([id number]) on 05/17/2023 11:25:01 AM [place]: PHYLLIS KEMP * Event Display: EKG Authored Date: Cardiology * Event Display: Cardiac Rhythm Strips Authored Date: * Event Display: Cardiac Rhythm Strips Authored Date: Hospital Progress note * Narda Baltazar RN: PERFORM, SIGN, VERIFY Event Display: Progress Note Hospital Authored Date: [id number] Patient: KATERINE NICOLE Age: 62 years Sex: Female : 1960 Associated Diagnoses: None Author: Narda Baltazar RN Findings Problem Related to Alteration in Respiratory Function (new) : Alteration in Respiratory Function/new 05/19/2023 4:00 EDT Alteration in Resp Status Related to Other: COPD exacerbation Goals & Outcomes, Respiratory Pt will maintain/resume baseline physical assessment, Pt will maintain/resume normal fluid/electrolyte balance, Pt will not develop complications r/t immobility, Pt will demonstrate proper technique w/self care procedures Interventions, Respiratory Assess for and report S&S of respiratory distress, Position for comfort & optimal oxygenation, Initiate pulmonary rehab nurse consult, Monitor sputum color & consistency. Report changes to MD, Teach/encourage use of incentive spirometer, Teach the proper use of inhalers, Teach Pt/caregiver Smoking cessation education, Teach purse lip breathing as needed for breathing retraining, Teach tripod positioning to promote air exchange . Nursing Data Respiratory/Pulmonary Data. : Respiratory/Pulmonary Data. 05/18/2023 21:00 EDT Respiratory Symptoms Dyspnea at rest, Dyspnea with exertion Respiratory effort Unlabored Cough Productive, Able to clear secretion Left Upper Lobe Breath Sounds Diminished Right Upper Lobe Breath Sounds Diminished Right Middle Lobe Breath Sounds Diminished Left Lower Lobe Breath Sounds Diminished Right Lower Lobe Breath Sounds Diminished Respiratory distress Mild Respiratory Treatment(s) Cough and deep breathe, Updraft Nebulizer Therapy/MDI, Other: SupplementalO2 Respiratory Treatment(s) Cough and deep breathe, Updraft Nebulizer Therapy/MDI, Other: SupplementalO2 Respiratory WNL except . Vital Signs : VITAL SIGNS SECTION 05/19/2023 3:38 EDT Early Warning Score 5.00 05/19/2023 3:38 EDT Temperature 97.6 DegF Temperature Route Oral Pulse Rate 83 bpm Respiratory Rate 18 br/min Systolic Blood Pressure 124 mm Hg Diastolic Blood Pressure 71 mm Hg Blood pressure sites Arm, right Mean Arterial Pressure 89 mm Hg Pulse Pressure 53 mm Hg Oxygen Saturation 100 % Liters per Minute 4 L/min Mode of Delivery (Oxygen) Nasal cannula (Modified) . Evaluation Patient is A/Ox4. VSS. More sleepy today but cooperative with care. Lung sounds are diminished. Does endorse some SOB on exertion and at rest but O2 sat remains >97% at 4L/min via NC. Prod cough also noted. Abdomen is semi-firm, round, and tender. +BS in all quadrants. PRN Tylenol given with scheduled PM Meds with + effect. patient continues to refuse DuoNeb treatments. Purewick in place with c lear yellow urine. some edema noted on elbows bilaterally. NSR on tele. patient resting throughout the night. Call hudson within reach. Safety measures maintained. See CIS for full assessment. . Discharge Information Case Management Discharge Plan : Case Management Discharge Plan Data 05/12/2023 10:08 EDT Discharge Level of Care at Discharge Not Done: d/c'd discontinued. (Not Done) Pulmonary Rehab Discharge : Pulmonary Rehab Discharge Status 05/14/2023 4:27 EDT CPAP/BiPAP Mask Type Full CPAP/BiPAP Mask Size Small 05/14/2023 0:58 EDT CPAP/BiPAP Mask Type Full CPAP/BiPAP Mask Size Small * Hortensia Fox MD: MODIFY, PERFORM Event Display: Progress Note Hospital Authored Date: Patient: ??KATERINE NICOLE ? Age:??62 Years?Sex:??Female?:??1960?? Subjective ?? Seen in the morning and again later in the day Patient's daughter Javy was??at bedside later in the afternoon? States overall feeling better??breathing guardado Denies any fever chills Still has some cough ?? Denies chest pain, palpitation Telemetry reviewed???in sinus rhythm ?? Labs reviewed???had mild hyponatremia???with repeat sodium with improvement Was on 4 L supplemental oxygen in the afternoon today ?? Review of Systems Rest of the review of system negative Objective Measurements?? Weight: 48.5 kg (05/17/23) Dry Weight: 45.2 kg (05/11/23) ? Vital Signs?? Temperature: 98.1 DegF (05/18/23 15:40:00) Temperature Route: Oral (05/18/23 15:40:00) Pulse Rate:??92 bpm??High (05/18/23 15:40:00) Respiratory Rate: 18 br/min (05/18/23 15:40:00) Systolic Blood Pressure: 127 mm Hg (05/18/23 15:40:00) Diastolic Blood Pressure: 63 mm Hg (05/18/23 15:40:00) Blood pressure sites: Arm, left (05/18/23 15:40:00) Mean Arterial Pressure: 84 mm Hg (05/18/23 15:40:00) Pulse Pressure: 64 mm Hg (05/18/23 15:40:00) Oxygen Saturation: 98 % (05/18/23 15:40:00) Liters per Minute: 5 L/min (05/18/23 15:41:00) Mode of Delivery (Oxygen): Nasal cannula (05/18/23 15:41:00) Early Warning Score: 4 (05/18/23 15:41:40) ? Physical Exam ?? General???was sleepy in the morning but later in the day was awake alert??no acute distress noted Respiratory???no wheezing??or crackles, bilateral equal air entry Cardiovascular???normal heart sounds GI???abdomen soft, bowel sound present Neuro-?awake alert 20x3 Psych???mood stable _ 72 Hour Antibiotic History Stopped Antibiotics Stop Date/Time Last Administered First Administered Ampicillin-Sulbactam??3 Gm, 100 mL/hr, IVPB, Every 6 hours 05/18/2023 16:48 05/18/2023 14:36 05/14/2023 18:04 ? Results Abnormal Labs ?? BLOOD COUNT & DIFF ??Abs. NRBC ??0.0 k/mm3 () ??05/18/2023 03:08 ??Hct ??33.7 % (Low) ??05/18/2023 03:08 ??Hgb ??10.5 Gm/dL (Low) ??05/18/2023 03:08 ??MCHC ??31.2 g/dL (Low) ??05/18/2023 03:08 ??Nucleated RBC (Automated) ??0.0 #/100 WBC'S () ??05/18/2023 03:08 ??RBC ??3.41 m/mm3 (Low) ??05/18/2023 03:08 ??RDW-SD ??43.8 femtoliters () ??05/18/2023 03:08 ? CHEM GENERAL ??Bicarbonate Level ??36 mmol/L (High) ??05/18/2023 12:28 ??Calcium ??8.5 mg/dL (Low) ??05/18/2023 03:08 ??Chloride ??87 mmol/L (Low) ??05/18/2023 12:28 ??Creatinine-Blood ??0.4 mg/dL (Low) ??05/18/2023 03:08 ??Estimated GFR Creatinine ??109 ML/MIN/1.73 M2 () ??05/18/2023 03:08 ??Glucose Level ??103 mg/dL (High) ??05/18/2023 03:08 ??Glucose, POC ??180 mg/dL (High) ??05/18/2023 11:47 ? Note: Critical results are displayed in red. ? Assessment/Plan ?? 62-year-old lady with medical history notable for chronic hypoxemic respiratory failure (on 5-6 L O2 at baseline) in setting of end-stage COPD, hyperlipidemia, paroxysmal atrial flutter, peripheral neuropathy, multiple compression fractures, and hyponatremia who presented to the emergency department with shortness of breath. Treating pt for COPD exacerbation??as well as??substantial??hyponatremiawith sodium down to 114.??This presentation is quite similar to??recent presentation in April 2023. Seen by renal??for hyponatremia??and??treated with urea and now stable off urea??but fluctuates a little bit Overall stable from respiratory standpoint is on steroid and antibiotics ?? Acute??on chronic??hypoxemic/hypercapnic respiratory failure???resolved COPD exacerbation Pneumonia Well-known end-stage COPD on??6+ liters??home oxygen??at baseline??and recent COPD exacerbation. s/p Azithromycin CTA negative for PE, showed??pulmonary hypertension. Right lower lobe pneumonia. Recommend follow-up to resolution. MRSA swab negative, Legionella and strep pneumonia negative Sputum culture negative Plan Discontinue Unasyn and start Augmentin to complete the course Prednisone 60 mg???will need taper DuoNeb scheduled and as needed ?? Hyponatremia???improved H/o SIADH Seen by renal and now signed off Has been off??urea now??and on fluid restriction Sodium has been mostly stable Plan Monitor electrolytes Continue with fluid restriction however she is not very compliant with this If sodium??is less than 130???will need to start urea ?? Paroxysmal Atrial flutter with RVR???currently in sinus rhythm echo 03/2023 with EF 40-40%, diffuse hypokinesis, mild to moderate aortic regurg Patient says she has had??atrial fibrillation in the past as well but has not been on??anticoagulation and is not interested at this time Plan Continue with metoprolol Patient will follow up with her stull hewer as outpatient??to discuss further regarding anticoagulation. ??Denies any history of bleed ?? Abnormal thyroid function Possible hyperthyroidism Labs from??05/11 = TSH was 0.3 and free T4 elevated 1.97 Currently patient is in sinus rhythm but had presented with??a flutter with RVR??and had issues with tachycardia??earlier this admission Discussed??briefly with endocrinology??and at this time recommended to repeat thyroid function in the morning Plan Repeat thyroid function in a.m. ?? Anxiety (F41.9):??Continue home sertraline. home lorazepam Tobacco use (Z72.0): Nicotine patches ordered. Hypertension (I10):??Metoprolol Hyperlipidemia (E78.5):??Home atorvastatin. ?? Pulmonary nodule 9 x 8 mm nodular density in the superior segment of the right lower lobe. Recommend chest CT in 3 months or PET/CT. ?? VTE Prophylaxis:??Subcutaneous Heparin Code Status:??Full Code; discussed with daughter on admission ?? OMN/dispo???monitor sodium, repeat thyroid function. Endocrinology??consult. ??Anticipate can be discharged tomorrow to rehab???if stable??discussed with high risk case manager ?? Updated patient's daughter Javy at bedside today ? * Narda Baltazar RN: PERFORM, SIGN, VERIFY Event Display: Progress Note Hospital Authored Date: [id number] Patient: KATERINE NICOLE Age: 62 years Sex: Female : 1960 Associated Diagnoses: None Author: Narda Baltazar RN Findings Problem Related to Alteration in Respiratory Function (new) : Alteration in Respiratory Function/new 05/18/2023 3:00 EDT Alteration in Resp Status Related to Other: COPD exacerbation Goals & Outcomes, Respiratory Pt will maintain/resume baseline physical assessment, Pt will maintain/resume normal fluid/electrolyte balance, Pt will not develop complications r/t immobility, Pt will demonstrate proper technique w/self care procedures Interventions, Respiratory Assess/monitor tolerance to IV infusions; verify rate/dose, Assess for and report S&S of respiratory distress, Position for comfort & optimal oxygenation, Monitor sputum color & consistency. Report changes to MD, Teach/encourage use of incentive spirometer, Teach the proper use of inhalers, Teach purse lip breathing as needed for breathing retraining, Teach tripod positioning to promote air exchange . Nursing Data Respiratory/Pulmonary Data. 05/17/2023 21:00 EDT Respiratory Symptoms Dyspnea at rest, Dyspnea with exertion Respiratory effort Shallow Cough Non-productive, Occasional Left Upper Lobe Breath Sounds Diminished Right Upper Lobe Breath Sounds Diminished Right Middle Lobe Breath Sounds Diminished Left Lower Lobe Breath Sounds Diminished Right Lower Lobe Breath Sounds Diminished Respiratory distress Moderate Respiratory Treatment(s) Cough and deep breathe, Updraft Nebulizer Therapy/MDI, Other: SupplementalO2 Respiratory Treatment(s) Cough and deep breathe, Updraft Nebulizer Therapy/MDI, Other: SupplementalO2 Respiratory WNL except . Vital Signs : VITAL SIGNS SECTION 05/18/2023 3:25 EDT Temperature 98.0 DegF Temperature Route Oral Pulse Rate 84 bpm Respiratory Rate 18 br/min Systolic Blood Pressure 124 mm Hg Diastolic Blood Pressure 58 mm Hg Blood pressure sites Arm, left Mean Arterial Pressure 80 mm Hg Pulse Pressure 66 mm Hg Oxygen Saturation 98 % Liters per Minute 5 L/min Mode of Delivery (Oxygen) Nasal cannula . Evaluation Patient is A/Ox4. VSS. Lung sounds are diminished on 5L NC. Does endorse some SOB on exertion and at rest but O2 sat remains >97% at 5l/min via NC. Humidifier added d/t patient c/o nasal dryness. Abdomen is semi-firm, round, and tender. +BS in all quadrants. PRN Tylenol given with scheduled PM Meds with + effect. Purewick in place with clear yellow urine. some edema noted on elbows bilaterally. NSR to sinus tach low 100's on tele. patient resting throughout the night. Call hudson within reach.Safety measures maintained. See CIS for full assessment. . Discharge Information Case Management Discharge Plan : Case Management Discharge Plan Data 05/12/2023 10:08 EDT Discharge Level of Care at Discharge Not Done: d/c'd discontinued. (Not Done) Pulmonary Rehab Discharge : Pulmonary Rehab Discharge Status 05/14/2023 4:27 EDT CPAP/BiPAP Mask Type Full CPAP/BiPAP Mask Size Small 05/14/2023 0:58 EDT CPAP/BiPAP Mask Type Full CPAP/BiPAP Mask Size Small 05/13/2023 4:13 EDT CPAP/BiPAP Mask Type Full CPAP/BiPAP Mask Size Small 05/13/2023 1:17 EDT CPAP/BiPAP Mask Type Full CPAP/BiPAP Mask Size Small Consult note * Event Display: Consultation Note Authored Date: [id number] CONSULTATION DATE: 05/11/2023 RENAL CONSULTATION REASON FOR CONSULTATION: Consult requested by the medical team to evaluate and help in management of the patient with severe hyponatremia. HISTORY OF PRESENT ILLNESS: The patient is a 62-year-old female with chronic hypoxemic hypercarbic respiratory failure, history of advanced COPD, who presented to the hospital with shortness of breath. The patient was noted to have pneumonia based on chest x-ray, but the patient had severe hyponatremia with sodium level of 114. She was admitted with diagnosis of COPD exacerbation and hypoxemic respiratory failure, hyponatremia and elevated troponin. Renal consult has been requested to help withmanagement of her hyponatremia. Her sodium level has improved from 114 to 117 at the present time. I do not have any urine studies at this juncture. ALLERGIES: The patient has allergies to LYRICA, MORPHINE, CODEINE, and SULFADIAZINE. PAST MEDICAL HISTORY: Includes history of anxiety, bradycardia, cervical radiculopathy, history of COPD, chronic hypoxemic respiratory failure, compression fracture of lumbar vertebrae, compression fracture of the spine, end-stage COPD, hyperlipidemia, osteoporosis, paroxysmal atrial fibrillation, p eripheral neuropathy, pulmonary nodules, Raynaud phenomenon, T12 compression fracture, thoracic compression fracture. PAST SURGICAL HISTORY: Includes hysterectomy, breast implants. FAMILY HISTORY: Mother had lung cancer. Father had a brain tumor. MEDICATIONS: As an outpatient include albuterol, aspirin, atorvastatin, azithromycin, baclofen, MDIs, vitamin D, Colace, folic acid, gabapentin, hydroxyzine, lorazepam, metoprolol, multivitamin, Protonix; prednisone, tapering; sertraline, tramadol, urea powder 15 grams 2 times a day, which was recently started by the patient on the . She was hospitalized in [facility] between 04/14 to 04/19 and was seen by my associates in consultation. She was diagnosed to have hypoosmolar euvolemic hyponatremia. Serum osmolality was 263. Urine osmolality 295 and the urine sodium was 34. There was a question of excessive free water intake without good solute intake and SIADH due to pulmonary disease and her sodium level on discharge had improved and she was supposed to get 15 grams of urea twice a day and a fluid restriction. REVIEW OF SYSTEMS: As noted above. Other systems were reviewed and negative. PHYSICAL EXAMINATION: GENERAL: The patient is resting in the bed, awake, with shortness of breath. VITAL SIGNS: Blood pressure was 148/91, pulse 124, afebrile. HEENT: Shows pupils equal bilaterally and reactive to light. Mucosa dry. There is no scleral icterus or conjunctival congestion. NECK: No jugular venous distention is noted. Neck was supple. No thyromegaly is noted. CARDIOVASCULAR: S1, S2, without rub or murmur. RESPIRATORY: Air entry decreased in bases. No crepitation or rhonchi is noted. ABDOMEN: Soft, nontender. Bowel sounds normal. EXTREMITIES: Showed no edema. There is no peripheral cyanosis or clubbing. NEUROLOGIC: Essentially nonfocal. LABORATORY DATA: Labs done today, WBC 14.2, hemoglobin 13.1, hematocrit was 37.6. Sodium 117, potassium 4.5, chloride ____, CO2 of 30, BUN 8, creatinine 0.3, estimated GFR 123. Magnesium 2.0. Lactic acid level 1.6. Serum osmolality was 242. No urine studies available. IMPRESSION: 1. Elderly female with hyponatremia. The patient has hypoosmolar hyponatremia. Initially, the patient had lower extremity edema. At the present time, she is euvolemic or slightly hypovolemic. The likely reason for hyponatremia in this patient is due to SIADH, in the setting of lung disease and possible SSRI use, the patient is on sertraline. She could also been taking excessive amount of free water with decreased solute intake, which compounded her worsening hyponatremia. Thyroid level and TSH levels are acceptable. She is on prednisone at the present time. 2. Chronic hypoxemic respiratory failure. 3. COPD. RECOMMENDATIONS: At this juncture, the patient is not having any neurological symptoms. There is noneed for hypertonic saline. The patient needs urine test to be done and I will suggest checking urine sodium and urine osmolality. Given uric acid level of 1.6, I do not think she has hypovolemic at this juncture. I agree with the fluid restriction of about 1 liter per day. I would initiate the patient on urea 30 grams 2 times a day. I will also give her a dose of sodium chloride tablet 1 gram now. I recommend correcting not more than 6-8 mEq over the next 24 hours. I recommend checking serum sodium level every 4 hours. Thank you for allowing me to participate in the medical management of the patient. Warmest regards, Dictated by: Link Rosado M.D. Signing Clinician: Link Rosado M.D. Dictated: 05/11/2023 12:08:54 Transcribed: 07:57:04 AM Transcribed by: ALLISON/ANA ROSA/JAUN DocID: [id number] PRELIMINARY REPORT UNLESS MANUALLY/ELECTRONICALLY SIGNED Note * Echo Hernandez RN: PERFORM Event Display: Discharge/Transfer Note Hospital Authored Date: [id number] Nursing Discharge Note Entered On: 05/19/2023 17:28 EDT Performed On: 05/19/2023 16:30 EDT by Echo Hernandez RN Nursing Discharge Note 2 Discharge Time : 05/19/2023 16:30 EDT Discharge Level of Care at Discharge : longterm facility Discharge Nursing Homes/Rehab Facilities : [facility] Patient Left Unit Via : Ambulance Patient Accompanied Off Unit with : Ambulance/Chair Van Personnel Handover Given to Transport Personnel : Yes DC Instructions Provided & Signed by Pt : No Patient Understands D/C Instructions : Yes Patient Instructions Discharge Signed : No Did Pt have Specialty Bed or Wound Vac : No Echo Hernandez RN - 05/19/2023 17:27 EDT * Elijah Avery MD: PERFORM Event Display: Discharge/Transfer Note Hospital Authored Date: [id number] Patient: ??KATERINE NICOLE ? Age:??62 Years?Sex:??Female?:??1960?? Patient Information Discharge Location: Primary Care Physician: Graciela Nunez MD Admit Date/Time: 05/11/23 00:33 Discharge Disposition Discharge Disposition: Penitentiary Facility[facility]Rehab Discharge Diagnosis Acute hypercapnic respiratory failure (J96.02) Acute hypoxemic respiratory failure (J96.01) Anxiety (F41.9) COPD exacerbation (J44.1) Chronic respiratory failure (J96.10) Emphysema/COPD (J43.9) Hyperlipidemia (E78.5) Hypertension (I10) Hyponatremia (E87.1) Paroxysmal atrial flutter (I48.92) Tobacco use (Z72.0) ?? _ Discharge Medications Albuterol (Ventolin HFA [...] A DAY NEEDED FOR CONSTIPATION. FILLED AT [facility] Durable Medical Equipment (Wheelchair)?See Instructions?small sizewt: 100 lbs ??ht: 5'7 ??lifetime needcopd J44.9 Durable Medical Equipment (Compression Stockings)?See Instructions?surgical, knee length 20-30 mm Hg2 pairs every 3 monthsDx: edema ICD 10 code R 60.0 Folic Acid (folic acid 1 mg oral tablet)?1?Milligram?1?tablet?By Mouth?Daily Gabapentin (gabapentin 300 mg oral capsule)?2?capsule?By Mouth?3 times a day HydrOXYzine (hydrOXYzine hydrochloride 10 mg oral tablet)?3?tab(s)?30?Milligram?By Mouth?3 times a day?as needed? NEEDED FOR ANXIETY Metoprolol (metoprolol 25 mg oral tablet)?75?Milligram?By Mouth?3 times a day Multivitamin (multivitamin Multiple Vitamins oral capsule)?1?capsule?By Mouth?Daily Nicotine?21?Milligram?Topically?Daily Pantoprazole (pantoprazole 40 mg oral delayed release tablet)?1?tab(s)?40?Milligram?By Mouth?Daily Sertraline (sertraline 25 mg oral tablet)?TAKE 1 TABLET BY MOUTH EVERY DAY Tiotropium (Spiriva HandiHaler 18 mcg ??Inhalation Capsule)?18?Microgram?Inhalation?Daily ? PCP Follow-Up/Heads-Up ?? -Will need 3-month follow-up for incidental pulmonary nodule finding -Please ensure has good bit setter follow-up outpatient ?? Future Appointments Wednesday 11:40 AM EDT ?? With: Graciela Nunez MD Where: [facility] [address] [place] [address]- Status: Pending Hospital Course ?? 62-year-old lady with medical history notable for chronic hypoxemic respiratory failure (on 5-6 L O2 at baseline) in setting of end-stage COPD, hyperlipidemia, paroxysmal atrial flutter, peripheral neuropathy, multiple compression fractures, and hyponatremia who presented to the emergency department with shortness of breath. Treating pt for COPD exacerbation??as well as??substantial??hyponatremiawith sodium down to 114.??This presentation is quite similar to??recent presentation in April 2023. Seen by renal??for hyponatremia??and??treated with urea and now stable off urea??but fluctuates a little bit Overall stable from respiratory standpoint??completed steroids and antibiotics and back to her baseline oxygen??levels now ?? Discharged to rehab in stable condition ?? Acute??on chronic??hypoxemic/hypercapnic respiratory failure???resolved COPD exacerbation, resolved Pneumonia, completed treatment Well-known end-stage COPD on??6+ liters??home oxygen??at baseline??and recent COPD exacerbation. s/p Azithromycin??and Augmentin CTA negative for PE, showed??pulmonary hypertension. Right lower lobe pneumonia. Recommend follow-up to resolution. MRSA swab negative, Legionella and strep pneumonia negative Sputum culture negative Completed Unasyn to Augmentin course for 7 days as well as prednisone course ?? Hyponatremia???improved H/o SIADH Seen by renal and now signed off Has been off??urea now??and on fluid restriction Sodium has been mostly stable Needs to continue??1500 mL fluid restriction at rehab Sodium stable 136 at discharge ?? Paroxysmal Atrial flutter with RVR???currently in sinus rhythm echo 03/2023 with EF 40-40%, diffuse hypokinesis, mild to moderate aortic regurg Patient says she has had??atrial fibrillation in the past as well but has not been on??anticoagulation and is not interested at this time Continue with metoprolol Patient will follow up with her stull hewer as outpatient??to discuss further regarding anticoagulation. ??Denies any history of bleed ?? Abnormal thyroid function Possible hyperthyroidism Labs from??05/11 = TSH was 0.3 and free T4 elevated 1.97 Currently patient is in sinus rhythm but had presented with??a flutter with RVR??and had issues with tachycardia??earlier this admission Discussed??briefly with endocrinology??and at this time recommended to repeat thyroid function this repeat thyroid function was all within normal limits, initial abnormality was probably due to acute illness ?? Anxiety (F41.9):??Continue home sertraline Tobacco use (Z72.0): Nicotine patches Hypertension (I10):??Metoprolol Hyperlipidemia (E78.5):??Home atorvastatin. ?? Pulmonary nodule 9 x 8 mm nodular density in the superior segment of the right lower lobe. Recommend chest CT in 3 months or PET/CT. ? Objective Measurements?? Weight: 48.5 kg (05/17/23) Dry Weight: 45.2 kg (05/11/23) ? Vital Signs?? Temperature: 98 DegF (05/19/23 14:05:00) Temperature Route: Oral (05/19/23 14:05:00) Pulse Rate: 87 bpm (05/19/23 14:05:00) Respiratory Rate: 17 br/min (05/19/23 14:05:00) Systolic Blood Pressure:??141 mm Hg??High (05/19/23 14:05:00) Diastolic Blood Pressure: 62 mm Hg (05/19/23 14:05:00) Blood pressure sites: Arm, right (05/19/23 11:00:00) Mean Arterial Pressure: 88 mm Hg (05/19/23 14:05:00) Pulse Pressure: 79 mm Hg (05/19/23 14:05:00) Oxygen Saturation: 100 % (05/19/23 14:05:00) Liters per Minute: 4 L/min (05/19/23 11:00:00) Mode of Delivery (Oxygen): Room air (05/19/23 14:05:00) Early Warning Score: 3 (05/19/23 14:05:54) ? . Physical Exam ?? General???no acute distress Respiratory???no wheezing??or crackles, bilateral equal air entry Cardiovascular???normal heart sounds GI???abdomen soft, bowel sound present Neuro-?awake alert 20x3 Psych???mood stable ?? Pending Results Add On Lab Order ordered on 05/11/2023 Add On Lab Order ordered on 05/11/2023 Add On Lab Order ordered on 05/18/2023 Viral Culture, Upper Respiratory ordered on 05/15/2023 Patient Education Titles Preventing Common Respiratory Infections?? Understanding COPD Flare-Ups?? What is COPD??? Follow-Up Appointments Added Follow Up ?Time Frame ?Comments Graciela Nunez MD Patient Instructions ? -You were admitted due to??worsening of your COPD as well as low sodium -You completed steroids and antibiotics for COPD treatment and are back to your baseline oxygen requirements -Your sodium levels improved with??urea medication and restricting the amount of fluid you??intake -Please continue to restrict your fluid, 1500 mL overall??with 1000 mL being from dietary??intake -You are discharged to physical therapy rehab center -Please follow-up with your primary care doctor ?? Post Discharge Care Diet: Cardiac diet Activity: As tolerated Condition: Stable Prognosis: Fair Discharge ?05/19/23 14:17:00 EDT Discharge Prescriptions ?ePrescribed, ??05/19/23 14:17:00 EDT Home Health Face to Face ^HomeHealthFTF Results Discharge Labs BACTERIOLOGY MRSA PCR Result Negative, MRSA target DNA not detected. ()?? 05/15/2023 11:10 S Aureus ??PCR Result Negative, SA target DNA not detected. ()?? 05/15/2023 11:10 ?? BLOOD COUNT & DIFF WBC 10.2 k/mm3 ()?? 05/18/2023 03:08 RBC 3.41 m/mm3 (Low)?? 05/18/2023 03:08 Hgb 10.5 Gm/dL (Low)?? 05/18/2023 03:08 Hct 33.7 % (Low)?? 05/18/2023 03:08 MCV 98.8 femtoliters ()?? 05/18/2023 03:08 MCH 30.8 pg ()?? 05/18/2023 03:08 MCHC 31.2 g/dL (Low)?? 05/18/2023 03:08 Platelet Count 265 k/mm3 ()?? 05/18/2023 03:08 RDW-SD 43.8 femtoliters ()?? 05/18/2023 03:08 MPV 9.6 femtoliters ()?? 05/18/2023 03:08 Nucleated RBC (Automated) 0.0 #/100 WBC'S ()?? 05/18/2023 03:08 Abs. NRBC 0.0 k/mm3 ()?? 05/18/2023 03:08 Abs. Neut 12.9 k/mm3 (High)?? 05/15/2023 06:56 Abs. Lymph 0.5 k/mm3 (Low)?? 05/15/2023 06:56 Abs. [place] 1.2 k/mm3 (High)?? 05/15/2023 06:56 Abs. Eo 0.0 k/mm3 ()?? 05/15/2023 06:56 Abs. Baso 0.0 k/mm3 ()?? 05/15/2023 06:56 Neut % 87.5 % (High)?? 05/15/2023 06:56 Lymph % 3.2 % (Low)?? 05/15/2023 06:56 [place] % 8.2 % ()?? 05/15/2023 06:56 Eos % 0.3 % ()?? 05/15/2023 06:56 Baso % 0.1 % ()?? 05/15/2023 06:56 Imm Gran 0.7 % ()?? 05/15/2023 06:56 Abs. Imm Gran 0.1 k/mm3 ()?? 05/15/2023 06:56 ?? BLOOD GAS pH 7.33 (Low)?? 05/11/2023 01:33 pCO2 66 mm Hg (High)?? 05/11/2023 01:33 pO2 117 mm Hg (High)?? 05/11/2023 01:33 Bicarbonate, Estimated 34 mmol/L (High)?? 05/11/2023 01:33 Specimen Type - Blood Gas ARTERIAL ()?? 05/11/2023 01:33 ? CARDIAC Nt-Probnp 9101 pg/mL (High)?? 05/10/2023 22:36 High Sensitivity Troponin (HSTnT) 59 ng/L (Critical)?? 05/11/2023 00:44 ?? CHEM GENERAL Sodium 136 mmol/L ()?? 05/19/2023 02:12 Potassium 4.3 mmol/L ()?? 05/19/2023 02:12 Chloride 92 mmol/L (Low)?? 05/19/2023 02:12 Bicarbonate Level 39 mmol/L (High)?? 05/19/2023 02:12 Anion Gap 5 ()?? 05/19/2023 02:12 Glucose Level 103 mg/dL (High)?? 05/18/2023 03:08 Glucose, POC 121 mg/dL (High)?? 05/19/2023 11:16 BUN 8 mg/dL ()?? 05/18/2023 03:08 Creatinine-Blood 0.4 mg/dL (Low)?? 05/18/2023 03:08 Estimated GFR Creatinine 109 ML/MIN/1.73 M2 ()?? 05/18/2023 03:08 Osmolality 242 mOs/kg (Low)?? 05/11/2023 00:37 Calcium 8.5 mg/dL (Low)?? 05/18/2023 03:08 Magnesium 1.7 mg/dL ()?? 05/18/2023 03:08 Protein, Total 6.7 Gm/dL ()?? 05/10/2023 22:36 Albumin 4.9 Gm/dL (High)?? 05/10/2023 22:36 AG Ratio 2.7 ()?? 05/10/2023 22:36 Alkaline Phosphatase 112 units/L (High)?? 05/10/2023 22:36 Lipase 15 units/L ()?? 05/10/2023 22:36 AST (SGOT) 71 units/L (High)?? 05/10/2023 22:36 ALT (SGPT) 26 units/L ()?? 05/10/2023 22:36 Bilirubin, Total 0.8 mg/dL ()?? 05/10/2023 22:36 Lactate 1.6 mmol/L ()?? 05/10/2023 22:36 Uric Acid 1.6 mg/dL ()?? 05/11/2023 00:37 ? ENDOCRINE/TUMOR MARKER TSH 1.52 uIU/mL ()?? 05/19/2023 02:12 Free T4 1.25 ng/dL ()?? 05/19/2023 02:12 T3, Free 2.7 pg/mL ()?? 05/19/2023 02:12 ? HEME OTHER Hold Lavender Top SPECIMEN DISCARDED AFTER 24 HOURS. ()?? 05/12/2023 18:29 Hold Blue Top SPECIMEN DISCARDED AFTER 4 HOURS. ()?? 05/10/2023 22:36 ?? MISC. CHEMISTRY Hold Green Top SPECIMEN DISCARDED AFTER 1 WEEK ()?? 05/11/2023 00:44 Procalcitonin 0.05 ng/mL ()?? 05/11/2023 00:37 ?? SEROLOGY INF DISEASE Legionella pneumophila Antigen NEGATIVE ()?? 05/15/2023 10:20 Mycoplasma pneumoniae, IgM <770 ()?? 05/16/2023 06:07 S. Pneumococcus Urinary Ag NEGATIVE ()?? 05/15/2023 10:20 ? URINE OTHER Creatinine, Urine Random 15.8 mg/dL ()?? 05/12/2023 12:25 Sodium, Urine Random <20 mmol/L ()?? 05/12/2023 12:25 Osmolality, Urine Random 156 mOsm/kg ()?? 05/12/2023 12:25 ? VIROLOGY COVID-19 by RT-PCR NEGATIVE ()?? 05/10/2023 22:24 ? Microbiology ?? Blood Culture?? Completed?? Source: Blood Body Site: ?? Collected Dt/Tm: 05/10/2023 22:20 Last Updated Dt/Tm: 05/11/2023 02:23 ?SPECIMEN DESCRIPTION : BLOOD R ACSPECIAL REQUESTS : NONECULTURE : NO GROWTH 5 DAYS.REPORT STATUS : FINAL 05/16/2023 Blood Culture #2?? Completed?? Source: Blood Body Site: ?? Collected Dt/Tm: 05/10/2023 22:20 Last Updated Dt/Tm: 05/10/2023 22:20 ?SPECIMEN DESCRIPTION : BLOOD ??NO SITESPECIAL REQUESTS : NONECULTURE : NO GROWTH 5 DAYS.REPORT STATUS : FINAL 05/16/2023 COVID-19 (Novel Coronavirus), Rapid PCR?? Completed?? Source: Nasal Body Site: Nose Collected Dt/Tm: 05/10/2023 22:20 Last Updated Dt/Tm: 05/11/2023 00:13 Sputum Culture w/ Gram Smear?? Completed?? Source: Sputum Expectorated Body Site: ?? Collected Dt/Tm: 05/15/2023 11:10 Last Updated Dt/Tm: 05/15/2023 11:10 ?SPECIMEN DESCRIPTION : EXPECTORATED SPUTUMSPECIAL REQUESTS : NONEGRAM STAIN : 4+ POLYMORPHONUCLEAR LEUKOCYTES ?1+ TISSUE CELLS ?1+ GRAM POSITIVE COCCICULTURE : 3+ NORMAL FLORAREPORT STATUS : FINAL 05/17/2023 MRSA PCR Nasal Swab?? Completed?? Source: Swab Body Site: Nares Both Collected Dt/Tm: 05/15/2023 11:10 Last Updated Dt/Tm: 05/15/2023 14:35 ? Imaging(s) ?CT Angio Chest ?? 05/14/2023 17:52??[facility] ?No evidence of pulmonary embolism. ?? Pulmonary artery hypertension. ?? 9 x 8 mm nodular density in the superior segment of the right lower lobe. Recommend chest CT in 3 months or PET/CT. ?? Right lower lobe pneumonia. Recommend follow-up to resolution. ?? Mild centrilobular emphysematous changes. ?US Doppler Ext Lower Venous Bilat ?? 05/11/2023 17:32??by Grzegorz Santiago MD ?No evidence of deep venous thrombosis. ? 41_ minutes spent on discharge * Fly Connell RN: PERFORM, SIGN, VERIFY Event Display: Case Management Discharge Plan Authored Date: [id number] Patient: KATERINE NICOLE Age: 62 years Sex: Female : 1960 Associated Diagnoses: None Author: Fly Connell RN Discharge Plan Case Management Discharge Plan : Case Management Discharge Plan Data 05/19/2023 12:02 EDT Discharge Level of Care at Discharge longterm facility Discharge Nursing Homes/Rehab Facilities [facility] Discharge Transportation Arranged [facility] [address] [facility] Discharge Arranged Transport Date/Time 05/19/2023 14:00 Mode of Transportation Arranged Ambulance Name of Agency #1 [facility] Service Categories #1 Occupational Therapy, Physical Therapy, Penitentiary Service Comments #1 Ambulance arranged for 2pm 05/12/2023 10:08 EDT Discharge Level of Care at Discharge Not Done: d/c'd discontinued. (Not Done) * Echo Hernandez RN: PERFORM Event Display: Patient Education/Instruction Authored Date: [id number] Inpatient Adult Discharge Instructions [address] [address] Name: KATERINE NICOLE : 1960 Visit: 05/11/2023 00:33:00 Current Date: 05/19/2023 14:09 Account: [id number] Inpatient Adult Discharge Instructions We would like [...] and their families. Surveys are administered by [employer] ?? If further treatment with your primary care physician or another doctor is recommended, it is important for you to keep the appointment. Call your primary care physician or return to the Emergency Department immediately if your condition worsens, fails to improve, or new symptoms develop. If you need to find a doctor, you can call [facility] for a referral at [phone] or toll free at [phone] or log in to [email or web address].. ?? You can view and manage your care through the patient portal or by using a health care noemi of your choosing. [employer] is a website that allows you to securely view your medical information including your hospital discharge summary, office visit summaries, medications and follow-up visits. You can also request appointments, renew medications, and request access to your medical information using a health care noemi of your choosing, or just ask a question. You can enroll at [email or web address] or register during your next office visit. You have been discharged from [facility], Patient Care Unit: S3. If you have any questions regarding these instructions after you leave, please call us and we will be happy to assist you. [facility] Your Care Team Attending Physician Gena ORTIZ, Elijah Garcia Consulting Providers Poly ORTIZ, Zuhair; Ashlee ORTIZ, Link; Vivian Mi DO Reason for Admission Shortness of breath Your Diagnosis COPD exacerbation Hyponatremia Emphysema/COPD Acute hypoxemic respiratory failure Acute hypercapnic respiratory failure Chronic respiratory failure Hypertension Hyperlipidemia Paroxysmal atrial flutter Anxiety Tobacco use Tests Performed Below is a partial list of the tests performed during your hospitalization. You may have had other tests and procedures not included in this list. Please discuss all test results with your provider. ABG Basic Metabolic Panel BUN CBC CBC w/ Differential Comprehensive Metabolic Panel COVID-19 (Novel Coronavirus), Rapid PCR Creatinine Electrolytes Free T3 Free T4 Glucose Level GLUCOSE POC High Sensitivity Troponin T Hold Blue Top Tube Hold Green Top Tube HOLD LAVENDER TUBE Lactate Level Legionella Antigen Urine Lipase MAGNESIUM Mg Level MRSA PCR Nasal Swab Mycoplasma pneumoniae IgM Osmolality ProBNP PROCALCITONIN, SERUM Sodium Urine Strep Pneumoniae Urinary Ag TSH TSH WITH REFLEX TO FT4 Uric Acid Urine Creatinine Urine Osmolality CT Angio Chest Doppler Ext Lower Venous Bilat (US) Portable Chest XR Chest Portable Primary Care Provider Graciela Nunez MD Advance Directive Health Care Proxy on File Yes - Health Care Proxy Discharge Vitals Temperature: 98 DegF Weight: 48.5 kg Pulse Rate: 87 bpm ?? Respiratory Rate: 17 br/min ?? Systolic Blood Pressure:??141 mm Hg??High ?? Diastolic Blood Pressure: 62 mm Hg ?? Oxygen Saturation: 100 % ?? Studies Pending All tests and labs ordered during this hospital stay have been completed unless listed below. Please discuss all pending results with your provider listed above in these instructions. ?? Add On Lab Order Viral Culture, Upper Respiratory What to do next Instructions From Your Doctor Discharge Orders Scheduled Follow-Up Appointments Wednesday 11:40 AM EDT ?? With: Graciela Nunez MD Where: [facility] [address] [place] [address]- Status: Pending Discharge Medications KATERINE NICOLE :1960 Visit Date:05/11/2023 Medications: Please continue your medications until treatment is completed or stopped by your provider. Medications not listed below should be discontinued. Discuss any questions related to medications with your provider. What How Much When Why Instructions Next Dose Unchanged Albuterol (Ventolin HFA 108 mcg/ inh inhalation aerosol with adapter) 2 puff(s) Inhalation 4 times a day as needed for for wheezing Emphysema/COPD As Needed Unchanged Aspirin (aspirin 81 mg oral delayed release tablet) 1 tab(s) Oral Daily 8am 05/20/23 Unchanged Atorvastatin (atorvastatin 20 mg oral tablet) TAKE 1 TABLET BY MOUTH ONCE DAILY ?? 8am 05/20/23 Unchanged Azithromycin (azithromycin 500 mg oral tablet) 1 tab(s) Oral Wednesday, Wednesday and Wednesday 8am 05/21/23 Unchanged Baclofen (baclofen 10 mg oral tablet) 1 tab(s) Oral Twice a day as needed for Pain , Moderate Duration: 14 Days As Needed Unchanged Baclofen (baclofen 10 mg oral tablet) See instructions TAKE 1 TABLET BY MOUTH TWICE A DAY NEEDED FOR PAIN FOR 14 DAYS ?? As Needed Unchanged Budesonide-Formoterol (Symbicort 160mcg/ 4.5mcg Inhaler) 2 puff(s) Inhalation Twice a day 8pm 05/19/23 Unchanged Cholecalciferol (Vitamin D3 1000 intl units oral capsule) 1 capsule Oral Daily 8am 05/20/23 Unchanged Docusate (docusate sodium 100 mg oral capsule) TAKE 1 CAPSULE BY MOUTH 2 TIMES A DAY NEEDED FOR CONSTIPATION. FILLED AT [facility] ?? As Needed Unchanged Durable Medical Equipment (Compression Stockings) See instructions Edema leg surgical, knee length 20-30 mm Hg 2 pairs every 3 months Dx: edema ICD 10 code R 60.0 ?? N/A Unchanged Durable Medical Equipment (Wheelchair) See instructions small size wt: 100 lbs ??ht: 5'7 ??lifetime need copd J44.9 ?? N/A Unchanged Folic Acid (folic acid 1 mg oral tablet) 1 tab(s) Oral Daily 8am 05/20/23 Unchanged Gabapentin (gabapentin 300 mg oral capsule) 2 capsule Oral 3 times a day 8pm 05/19/23 Unchanged HydrOXYzine (hydrOXYzine hydrochloride 10 mg oral tablet) 3 tab(s) Oral 3 times a day as needed for NEEDED FOR ANXIETY As Needed Unchanged Lorazepam (LORazepam 0.5 mg oral tablet) 1 tab(s) Oral Twice a day as needed for as needed for anxiety Duration: 14 Days fill when due ?? As Needed Unchanged Metoprolol (Metoprolol Succinate ER 25 mg oral tablet, extended release) 1 tab(s) Oral Daily TAKE 1 TABLET BY MOUTH ONCE DAILY ?? 8am 05/20/23 Unchanged Multivitamin (multivitamin Multiple Vitamins oral capsule) 1 capsule Oral Daily 8am 05/20/23 Unchanged Pantoprazole (pantoprazole 40 mg oral delayed release tablet) 1 tab(s) Oral Daily 8am 05/20/23 Unchanged PredniSONE (predniSONE 10 mg oral tablet) See instructions 30 mg daily for 3 days and then 20 mg daily for 3 days and then continue 10 mg daily. ?? Resume Home Schedule Unchanged PredniSONE (predniSONE 10 mg oral tablet) See instructions 2 tabs by mouth daily for 3 days, 1 tab by mouth daily for 3 days ?? Resume Home Schedule Unchanged Sertraline (sertraline 25 mg oral tablet) TAKE 1 TABLET BY MOUTH EVERY DAY ?? 8am 05/20/23 Unchanged Tiotropium (Spiriva HandiHaler 18 mcg Inhalation Capsule) 18 Microgram Inhalation Daily 8am 05/20/23 Unchanged Tramadol (traMADol 50 mg oral tablet) 1 tab(s) Oral 3 times a day with meals TAKE 1 TABLET BY MOUTH 3 TIMES A DAY FOR 7 DAYS NEEDED FOR PAIN ?? As Needed Unchanged urea powder (urea 15 g oral powder for reconstitution) 15 gram Oral Twice a day follow up with renal for additional directives ?? 8pm 05/19/23 Test Results Below is a partial list of the most recent Laboratory test results done prior to this discharge. You may have had other tests and procedures not included in this list. Please discuss all test resultswith your provider. ABG (05/11/2023) ???pH - 7.33???pCO2 - 66 mm Hg???pO2 - 117 mm Hg???Bicarbonate, Estimated - 34 mmol/L???Specimen Type - Blood Gas - ARTERIAL Basic Metabolic Panel (05/18/2023) ???Sodium - 130 mmol/L???Potassium - 4.0 mmol/L???Chloride - 89 mmol/L???Bicarbonate Level - 38 mmol/L???Anion Gap - 3???Glucose Level - 103 mg/dL???BUN - 8 mg/dL???Creatinine-Blood - 0.4 mg/dL???Estimated GFR Creatinine - 109 ML/MIN/1.73 M2???Calcium - 8.5 mg/dL BUN (05/11/2023) ???BUN - 8 mg/dL CBC (05/18/2023) ???WBC - 10.2 k/mm3???RBC - 3.41 m/mm3???Hgb - 10.5 Gm/dL???Hct - 33.7 %???MCV - 98.8 femtoliters???MCH - 30.8 pg???MCHC - 31.2 g/dL???Platelet Count - 265 k/mm3???RDW-SD - 43.8 femtoliters???MPV - 9.6 femtoliters???Nucleated RBC (Automated) - 0.0 #/100 WBC'S???Abs. NRBC - 0.0 k/mm3 CBC w/ Differential (05/15/2023) ???WBC - 14.8 k/mm3???RBC - 3.30 m/mm3???Hgb - 10.8 Gm/dL???Hct - 32.7 %???MCV - 99.1 femtoliters???MCH - 32.7 pg???MCHC - 33.0 g/dL???Platelet Count - 218 k/mm3???RDW-SD - 43.9 femtoliters???MPV - 9.1 femtoliters???Nucleated RBC (Automated) - 0.0 #/100 WBC'S???Abs. NRBC - 0.0 k/mm3???Abs. Neut - 12.9 k/mm3???Abs. Lymph - 0.5 k/mm3???Abs. [place] - 1.2 k/mm3???Abs. Eo - 0.0 k/mm3???Abs. Baso - 0.0 k/mm3???Neut % - 87.5 %???Lymph % - 3.2 %???[place] % - 8.2 %???Eos % - 0.3 %???Baso % - 0.1 %???Imm Gran - 0.7 %???Abs. Imm Gran - 0.1 k/mm3 Comprehensive Metabolic Panel (05/10/2023) ???Sodium - 114 mmol/L???Potassium - HEMOLYZED???Chloride - 73 mmol/L???Bicarbonate Level - 31 mmol/L???Anion Gap - 10???Glucose Level - 71 mg/dL???BUN - 8 mg/dL???Creatinine-Blood - 0.2 mg/dL???Estimated GFR Creatinine - 125 ML/MIN/1.73 M2???Calcium - 9.5 mg/dL???Protein, Total - 6.7 Gm/dL???Albumi n - 4.9 Gm/dL???AG Ratio - 2.7???Alkaline Phosphatase - 112 units/L???AST (SGOT) - 71 units/L???ALT(SGPT) - 26 units/L???Bilirubin, Total - 0.8 mg/dL COVID-19 (Novel Coronavirus), Rapid PCR (05/10/2023) ???COVID-19 by RT-PCR - NEGATIVE Creatinine (05/11/2023) ???Creatinine-Blood - 0.3 mg/dL???Estimated GFR Creatinine - 123 ML/MIN/1.73 M2 Electrolytes (05/19/2023) ???Sodium - 136 mmol/L???Potassium - 4.3 mmol/L???Chloride - 92 mmol/L???Bicarbonate Level - 39 mmol/L???Anion Gap - 5 Free T3 (05/19/2023) ???T3, Free - 2.7 pg/mL Free T4 (05/19/2023) ???Free T4 - 1.25 ng/dL Glucose Level (05/11/2023) ???Glucose Level - 76 mg/dL GLUCOSE POC (05/19/2023) ???Glucose, POC - 121 mg/dL High Sensitivity Troponin T (05/11/2023) ???High Sensitivity Troponin (HSTnT) - 59 ng/L Hold Blue Top Tube (05/10/2023) ???Hold Blue Top - SPECIMEN DISCARDED AFTER 4 HOURS. Hold Green Top Tube (05/11/2023) ???Hold Green Top - SPECIMEN DISCARDED AFTER 1 WEEK HOLD LAVENDER TUBE (05/12/2023) ???Hold Lavender Top - SPECIMEN DISCARDED AFTER 24 HOURS. Lactate Level (05/10/2023) ???Lactate - 1.6 mmol/L Legionella Antigen Urine (05/15/2023) ???Legionella pneumophila Antigen - NEGATIVE Lipase (05/10/2023) ???Lipase - 15 units/L MAGNESIUM (05/18/2023) ???Magnesium - 1.7 mg/dL Mg Level (05/17/2023) ???Magnesium - 1.3 mg/dL MRSA PCR Nasal Swab (05/15/2023) ???MRSA PCR Result - Negative, MRSA target DNA not detected.???S Aureus PCR Result - Negative, SA target DNA not detected. Mycoplasma pneumoniae IgM (05/16/2023) ? ?Mycoplasma pneumoniae, IgM - <770 Osmolality (05/11/2023) ???Osmolality - 242 mOs/kg ProBNP (05/10/2023) ???Nt-Probnp - 9101 pg/mL PROCALCITONIN, SERUM (05/11/2023) ???Procalcitonin - 0.05 ng/mL Sodium Urine (05/12/2023) ? ?Sodium, Urine Random - <20 mmol/L Strep Pneumoniae Urinary Ag (05/15/2023) ???S. Pneumococcus Urinary Ag - NEGATIVE TSH (05/19/2023) ???TSH - 1.52 uIU/mL TSH WITH REFLEX TO FT4 (05/11/2023) ???TSH - 0.30 uIU/mL Uric Acid (05/11/2023) ???Uric Acid - 1.6 mg/dL Urine Creatinine (05/12/2023) ???Creatinine, Urine Random - 15.8 mg/dL Urine Osmolality (05/12/2023) ???Osmolality, Urine Random - 156 mOsm/kg Allergies (NKA means No Known Allergies) codeine??(Rash, [...] Belongings I fully understand and agree that [facility] accepts no responsibility for all my personal [...] patient Date for Pt to Sign Valuables/Belongings: 05/18/23 06:27:00 ?? Other Discharge Information ? Case Management Discharge Plan?? Discharge Plan?? Discharge Agency Information?? Discharge Level of Care at Discharge: longterm facility Name of Agency #1: [facility] Discharge Transportation Arranged: [facility] [address] [facility] ??[phone] Service Categories #1: Occupational Therapy, Physical Therapy, Penitentiary Mode of Transportation Arranged: Ambulance Service Comments #1: Ambulance arranged for 2pm Discharge Arranged Transport Date/Time: 05/19/23 14:00:00 ?? Discharge Nursing Homes/Rehab Facilities: [facility] ? Pulmonary Rehab Status?? Pulmonary Rehab Discharge Status?? CPAP/BiPAP Mask Type: Full CPAP/BiPAP Mask Size: Small Respiratory Rate: 17 br/min ? Common Emergency Awareness Tips IS [...] are strongly encouraged to quit. Please call [facility] [facility] at [phone] or [phone] or log in to [email or web address] for referrals to smoking cessation programs. ?? 544 Suicide & Crisis Lifeline is available 24/05 if you or someone you know needs to find a reason to keep living. By calling 819 you'll be connected to a skilled, trained counselor at a crisis center in your area. INPATIENT DISCHARGE INSTRUCTIONS SIGNATURE PAGE KATERINE NICOLE Location:[facility] Registration Date and Time:05/11/2023 00:33 EDT Primary Care Physician: Graciela Nunez MD, Attending Physician: Gena ORTIZ, Elijah Garcia, I KATERINE NICOLE, have received the above patient education materials/instructions and have verbalized understanding. If ambulance or transport services are being used I further acknowledge being given a choice of service. ?? If you need to contact me, please call me at this number: . Patient/Network Applications Specialist Name: Patient/Network Applications Specialist Signature: Relationship to Patient: Witness Name/Signature: Date: * Gena ORTIZ, Elijah H: PERFORM Event Display: Patient Education Leaflets Authored Date: [id number] Preventing Common Respiratory Infections ?? 75539 Preventing Common Respiratory Infections Respiratory infections such as colds and the flu (influenza) are common. These infections are oftencaused by viruses. They may share some symptoms. But not all respiratory infections are the same. Some make you more sick than others. You can take steps to prevent common respiratory infections. Andif you get sick, you can take care of yourself to keep the infection from getting worse. What is a cold? Symptoms may include runny or stuffy nose, coughing and sneezing, and sore throat. Cold symptoms tend to be milder than flu symptoms. ??? Symptoms tend to come on slowly. They last for a few days to about 1 week. ??? With a cold, you may still feel able to do most of the things you normally do. ??? Colds can spread from person to person. Keep germs from spreading by following the tips below. ?? What is the flu? Symptoms may include fever, chills, headache, extreme tiredness (fatigue), cough, sore throat, runny or stuffy nose, and muscle aches. Children may have upset stomach and vomiting, but adults often don???t. ??? Symptoms tend to come on quickly. Some, such as fatigue and cough, can last a few weeks. ??? With the flu, you may feel worn out and not able to do normal activities. ??? The flu can spread from person to person. Keep germs from spreading by following the tips below.??? It???s most likely not the flu if an adult has vomiting or diarrhea for 1 or 2 days. This so-called ???stomach flu?? is probably a gastrointestinal infection. ?? When the infection gets worse Without proper care, a respiratory infection can get worse. It can lead to serious complications and . If you aren???t getting better or if your symptoms are getting worse, call your healthcare provider. Complications can include: ??? Bronchitis (infection of the airways that leads to shortness of breath, wheezing, and coughing up thick yellow or green mucus) ??? Pneumonia (infection of the lungs in which fluid and mucus settle in the lungs, making breathing difficult) ??? Worsening of chronic conditions such as heart failure, chronic lung disease, asthma, or diabetes ??? Severe dehydration (loss of fluids) ??? Sinus problems ??? Ear infections ?? Get recommended vaccines Ask your healthcare provider what vaccines are right for you and when you should get them. Recommended vaccines may include: ??? Influenza vaccine. This is often called a flu shot. This vaccine protects you from influenza. Get a vaccine each fall, before flu season starts. Flu is most common in the [place] during the fall andwinter. You can get a flu shot at a clinic, healthcare provider???s office, pharmacy, [facility], or through your workplace. ??? Pneumococcal vaccine. There are 2 pneumococcal pneumonia vaccines that protect against bacterial pneumonia. Talk with your healthcare provider about these important vaccines. ??? COVID-19 vaccine. There are several different COVID-19 vaccines. They help protect you from COVID-19, especially from severe illness and . Talk with your healthcare provider to learn more about the COVID-19 vaccine. ?? Keep germs from spreading No one likes getting sick. Viruses that cause colds, flu, and other respiratory infections can spread from person to person. To protect yourself and others from germs: ??? Wear a mask in public places. ??? Cover your nose and mouth when you cough or sneeze. Use a tissue or your elbow. Don't use your hands. Throw the used tissue away. Always wash your hands after coughing, sneezing, or blowing your nose. ??? Wash your hands often with clean, running water and soap. Scrub them for at least 20 seconds. Use alcohol-based hand patient observation assistant when you don???t have access to soap and water. ??? Don???t touch your eyes, nose, and mouth. This may help you keep germs out of your body. ??? Stay away from other people with respiratory infections. Also limit close contact with others if you are sick. Avoidcrowds during flu season. ??? Don't smoke and don't let others smoke in your home or car. ?? How to wash your hands ??? Use clean, running water and plenty of soap. Work up a good lather. ??? Clean your whole hand, under your nails, between your fingers, and up your wrists. Wash for at least20 seconds. Don???t just wipe???rub well. If you need help timing, sing the Happy Birthday song twice. ??? Rinse. Let the water run down your fingertips, not up your wrists. ??? In a public restroom,use a paper towel to turn off the faucet and open the door. ??? If you can't use soap and water, use hand patient observation assistant with at least 60% alcohol. ?? Last Reviewed Date: 2021 ?? 7611-3659 [employer]. All rights reserved. This information is not intended as a substitute for professional medical care. Always follow your healthcare professional's instructions. ?? * Echo Hernandez RN: PERFORM Event Display: Patient Education Leaflets Authored Date: [id number] Understanding COPD Flare-Ups ?? Understanding COPD Flare-Ups - Video Watch this to help you understand what happens when you have a COPD flare-up, and what you can do if you have one. To view the video go to this web address: [email or web address] Or, scan this QR code with your smart phone ?? [facility] ?? * Echo Hernandez RN: PERFORM Event Display: Patient Education Leaflets Authored Date: [id number] What is COPD? ?? What is COPD? - Video Watch this to understand what COPD is, how COPD affects the lungs, and the importance of taking your medications and working with your healthcare team to develop a treatment plan. To view the video go to this web address: [email or web address] Or, scan this QR code with your smart phone ?? [facility] ?? Patient Care team information Care Team Personnel Name: Morgan Abbott MD Position: [facility] Renal MD Member Role: Lifetime Consulting Physician Address: Address: [address] [place] [address], [place] [address]- Name: Graciela Nunez MD Position: [facility] Physician - Primary Care Member Role: PCP Address: Address: [address] [place] [address] Name: Maryam Camara RN Position: [facility] RN Member Role: Primary Care Nurse Name: Josemanuel Hawkins RN Position: [facility] RN Member Role: Primary Care Nurse Name: Rylie Francois RN Position: [facility] RN Member Role: Primary Care Nurse Name: Luisa Storey RN Position: [facility] RN Member Role: Primary Care Nurse Name: Anabela Beavers Position: [facility] RN Member Role: Primary Care Nurse Name: Tracey Chavez Position: S RN Member Role: Primary Care Nurse Name: Angelica Montemayor RN Position: [facility] RN Member Role: Primary Care Nurse Name: Paty Ventura RN Position: [facility] RN Member Role: Primary Care Nurse Name: Ninfa Soto RN Position: [facility] RN Member Role: Primary Care Nurse Name: Romeo Reid MD Position: [facility] Renal MD Member Role: Lifetime Consulting Physician Address: Address: [address] [place] [address] [address] [facility] [place], [place] [address]- [place] Name: Olga Valladares RN Position: S RN Member Role: Primary Care Nurse Name: Ruby Alexandre RN Position: S RN Member Role: Primary Care Nurse Address: Address: [address] [place] [address]- [place] Name: Celso Lawson MD Position: [facility] Renal MD Member Role: Lifetime Consulting Physician Address: Address: [address] [place] [address] [facility] [place] [address]- [place] Name: Keely Pascal RN Position: [facility] RN Member Role: Primary Care Nurse Name: Chloe Fisher LPN Position: [facility] RN Member Role: Primary Care Nurse Name: Naomi RAINEY Attending Position: [facility] ED Medicine MD Name: Vivian Mi DO Position: [facility] Resident Member Role: Consulting Physician Address: Address: [address] [place] [address] [place] [address]- Name: Xuan Dye Position: [facility] ED OA Charge Member Role: ED Associate Name: Edward Schrader RN Position: [facility] ED RN W/OE and Tasks Member Role: Patient Care Provider Care Team Related Persons Name: JAVY OSBORNE Address: [place] [address] Name: KAVON NICOLE Address: home [address] [place] [address] Name: PT, STATES NONE
--- OUTSIDE RECORDS SUMMARY | 2023-08-21 08:43 | XMS_ITS | Continuity of Care Document ---
Author Name Unknown Organization [facility] Address [address] [place] [address]- Care Team Providers Care Fruit Cutter Name Role Phone Graciela Nunez MD Primary Care Physician [phone] Encounter [facility] Date(s): 08/28/21 - 09/27/21 [facility] [address] [place], [place] [address] Allergies, Adverse Reactions, Alerts Substance [...] 23-valent vaccine 5 07/31/10 Recorded 1Location History: [place], [place] 2Admin Note: done @ dr jones office 3Location History: [facility] 4Location History: [facility] 5Location History: [facility] Medications alendronate 70 mg [...] 0 Refills, Maintenance, 09/01/21 15:19:00 EDT, Capsule, [facility] #[id number], Partial fill upon patient request if the prescription i... Start Date: 09/01/21 Stop Date: 09/15/21 Status: Ordered duloxetine 30 mg oral enteric coated capsule 1 capsule = 30 mg, By Mouth, Daily, do not crush or chew, # 30 capsule, 3 Refills, Maintenance, 09/11/21 12:04:00 EST, CR Capsule, [facility] #68235, Partial fill upon patient request if the [...] 01/31/21 16:35:00 EDT, Route to Pharmacy Electronically, [facility] #[id number], 170, cm, 10/02/20 10:06:00EST, Height, 56.3, kg, 11/24/19 22:58:00 EST, Dry W... Start Date: 01/31/21 Status: Ordered furosemide 20 mg oral tablet 1, tablet, By Mouth, Daily, PRN, # 90 tablet, Refills 0, Tot. Refills 0, Maintenance, NEEDED FORLEG SWELLING, 04/19/20 15:50:00 EDT, Route to Pharmacy Electronically, [facility] #34088,170, cm, 12/13/19 13:51:00 EST, Height, 56.3, kg, 0... Start Date: 04/19/20 Status: Ordered gabapentin 300 mg oral capsule 2, capsule, By Mouth, 3 times a day, # 180 capsule, Refills 1, Tot. Refills 1, Maintenance, 08/26/21 10:50:00 EDT, Route to Pharmacy Electronically, [facility] #62118, 162.56, cm, 08/22/21 2:36:00 EDT, Height, 52.65, [...] tablet, 0 Refills, Maintenance, 09/10/21 16:04:00 EST, [facility] #43091, 170, cm, 08/30/21 17:40:00 EDT, Height,51.5, kg, 08/30/21 17:40:00 EDT, Dry Weight Start Date: 09/10/21 Status: Ordered Metoprolol Succinate ER 25 mg oral tablet, extended release 1 tablet = 25 mg, By Mouth, Daily, # 90 tablet, 1 Refills, Maintenance, 01/29/20 10:50:00 EDT, XL Tablet, [facility] #76601, 170, cm, 12/13/19 13:51:00 EST, Height, 56.3, kg, 11/24/19 22:58:00 EST, Dry Weight Start Date: 01/29/20 Status: Ordered predniSONE 10 mg oral tablet See Instructions, 4 tabs x 3 days, 3 tabs x 3 days, 2 tabs x 3 days, 1 tab x 3 days, # 30 tablet, 0Refills, Acute 10/11/21 12:03:00 EST, 09/11/21 12:03:00 EST, Tablet, [facility] #13063, Partial fill upon patient request if the [...] 3 Refills, Maintenance, 03/13/21 13:26:00 EDT, Tablet, [facility] #10031, 170, cm, 10/02/20 10:06:00 EST, Height, 56.3, [...] Refills, Maintenance, 02/26/21 15:47:00 EDT, ER Tablet, [facility] #08563, Partial fill upon patient requestif the prescription [...] 01/06/21 14:35:00 EST, Route to Pharmacy Electronically, [facility] #85832, 170, cm, 10/02/20 10:06:00 EST, Height, 56.3, kg, 11/24/19 22:58:00 EST, Dry Weight Start Date: 01/06/21 Status: Ordered Zofran 4 mg oral tablet 1 tablet = 4 mg, By Mouth, 3 times a day, PRN nausea, # 30 tablet, 0 Refills, Maintenance, :17:00 EDT, Tablet, [facility] #43940, 170, cm, 12/13/19 13:51:00 EST, Height, 56.3, [...]
--- OUTSIDE RECORDS SUMMARY | 2023-08-21 08:43 | XMS_ITS | Continuity of Care Document ---
Author Name Unknown Organization [facility] Address [address] [place] [address]- Care Team Providers Care Front Maker Name Role Phone Graciela Nunez MD Primary Care Physician [phone] Encounter [facility] Date(s): 08/08/19 - 12/06/19 [facility] [address] [place] [address]- [facility] Attending Physician: Graciela Nunez MD Allergies, Adverse [...] 23-valent vaccine 5 07/31/10 Recorded 1Location History: [place], [place] 2Admin Note: done @ dr jones office 3Location History: [facility] 4Location History: [facility] [...] Refills, Soft Stop, 12/06/19 15:31:00 EST, Tablet, [facility] #03945, 170, cm, 12/06/19 15:03:00 EST, Height, 56.3, kg, 11/24/19 22:58:00 EST, Dry Weight Start Date: 12/06/19 Status: Ordered folic acid 1 mg oral tablet 1 mg, 1, tablet, By Mouth, Daily, # 30 tablet, Refills 3, Tot. Refills 3, Maintenance, 03/06/19 13:13:46 EDT, Route to Pharmacy Electronically, [id number], [id number] Start Date: 03/06/19 Status: Ordered gabapentin 300 mg oral capsule See Instructions, 2 capsules qam, 1 capsule midday, 2 capsules at night, # 150 capsule, Refills 5, Tot. Refills 5, Maintenance, 03/06/19 13:06:04 EDT, Instructions Replace Required Details, Route to Pharmacy Electronically, [id number]... Start Date: 03/06/19 Status: Ordered Home Blood [...] Refills, Maintenance, 10/29/19 12:31:00 EST, XL Tablet, [facility] #[id number], 170, cm, 07/13/19 9:58:00 EDT, Height, 59.1, kg, 07/07/19 20:49:00 EDT, Dry Weight Start Date: 10/29/19 Status: Ordered Mucinex 600 mg oral tablet, extended release 1 tablet = 600 mg, By Mouth, 2 times a day, for 10 days, # 20 tablet, 0 Refills, Acute 12/16/19 15:33:00 EST, 12/06/19 15:33:00 EST, ER Tablet, [facility] #[id number], 170, cm, 12/06/19 15:03:00EST, Height, 56.3, kg, 11/24/19 22:58:00 EST, Dry W... Start Date: 12/06/19 Stop Date: 12/16/19 Status: Ordered Nicoderm C-Q Clear 14 mg/24 hr transdermal film, extended release 1 patch, Topically, Daily, # 30 patch, 0 Refills, Acute 12/27/19 13:41:00 EST, 11/26/19 13:41:00 EST, Patch, [facility] #41552, 170, cm, 11/26/19 5:22:00 EST, Height, 56.3, kg, 11/24/19 22:58:00 EST, Dry Weight Start Date: 11/26/19 Stop Date: 12/27/19 Status: Ordered predniSONE 10 mg oral tablet See Instructions, 4 tabs x 3 days, 3 tabs x 3 days, 2 tabs x 3 days, 1 tab x 3 days, # 30 tablet, 0Refills, Acute 01/06/20 15:30:00 EST, 12/06/19 15:30:00 EST, Tablet, [facility] #06776, 170, cm, 12/06/19 15:03:00 EST, Height, 56.3, kg, ... Start Date: 12/06/19 Stop Date: 01/06/20 Status: Ordered Shower Chair See Instructions, # 1 Unknown, Maintenance, dx: asthma J45.909 cervical radiculopathy M54.12 [id number] weight 56kg use daily, 12/06/19 15:37:00 EST, [...] 10/24/19 13:04:00 EST, Route to Pharmacy Electronically, [facility] #[id number], 170, cm, 07/13/19 9:58:00 EDT, Height,59.1, kg, [...]
[2023-08-21] MEDS: Albuterol/Iprat 2.5/0.5MG 3 ML AMPUL.NEB INHALE ×2 (08:44→20:28)
--- OUTSIDE RECORDS SUMMARY | 2023-08-21 08:44 | XMS_ITS | Continuity of Care Document ---
Author Name Unknown Organization [facility] Address [address] [place] [address]- Care Team Providers Care Radiology Technologist Name Role Phone Graciela Nunez MD Primary Care Physician Encounter [facility] Date(s): 09/29/21 - 10/29/21 [facility] [address] [place], [place] [email or web address] Allergies, Adverse Reactions, [...] 23-valent vaccine 6 07/31/10 Recorded 1Result Comment: [id number] given w/out incident 2Location History: [place], [place] 3Admin Note: done @ dr jones office 4Location History: [facility] 5Location History: [facility] 6Location History: [facility] Medications alendronate 70 mg oral tablet 0 Refills, Maintenance, 07/13/19 10:24:47 EDT Start Date: 07/13/19 Status: Ordered azithromycin 500 mg oral tablet TAKE 1 TABLET BY MOUTH EVERY WEDNESDAY, WEDNESDAY, WEDNESDAY OF EACH WEEK Start Date: 10/29/21 Status: Ordered Bed Wedge Bed Wedge, See [...] 0 Refills, Maintenance, 09/01/21 15:19:00 EDT, Capsule, [facility] #36907, Partial fill upon patient request if the prescription i... Start Date: 09/01/21 Stop Date: 09/15/21 Status: Ordered Colace sodium 100 mg oral capsule 100 mg, 1, capsule, By Mouth, 2 times a day, PRN, # 60 capsule, Refills 1, Tot. Refills 1, Maintenance, for constipation, 10/22/21 15:09:00 EST, Route to Pharmacy Electronically, [facility]#81184, Partial fill upon patient request if the pr... Start Date: 10/22/21 Status: Ordered Elbow Protector Pads Elbow Protector [...] 01/31/21 16:35:00 EDT, Route to Pharmacy Electronically, [facility] #88532, 170, cm, 10/02/20 10:06:00EST, Height, 56.3, kg, 11/24/19 22:58:00 EST, Dry W... Start Date: 01/31/21 Status: Ordered furosemide 20 mg oral tablet 1, tablet, By Mouth, Daily, PRN, # 90 tablet, Refills 0, Tot. Refills 0, Maintenance, NEEDED FORLEG SWELLING, 04/19/20 15:50:00 EDT, Route to Pharmacy Electronically, [facility] #84949,170, cm, 12/13/19 13:51:00 EST, Height, 56.3, kg, 0... Start Date: 04/19/20 Status: Ordered gabapentin 300 mg oral capsule 2, capsule, By Mouth, 3 times a day, # 180 capsule, Refills 1, Tot. Refills 1, Maintenance, 08/26/21 10:50:00 EDT, Route to Pharmacy Electronically, [facility] #59178, 162.56, cm, 08/22/21 2:36:00 EDT, Height, 52.65, [...] tablet, 0 Refills, Maintenance, 09/10/21 16:04:00 EST, [facility] #94187, 170, cm, 08/30/21 17:40:00 EDT, Height,51.5, kg, 08/30/21 17:40:00 EDT, Dry Weight Start Date: 09/10/21 Status: Ordered Metoprolol Succinate ER 25 mg oral tablet, extended release 1 tablet = 25 mg, By Mouth, Daily, # 90 tablet, 1 Refills, Maintenance, 01/29/20 10:50:00 EDT, XL Tablet, [facility] #59629, 170, cm, 12/13/19 13:51:00 EST, Height, 56.3, kg, 11/24/19 22:58:00 EST, Dry Weight Start Date: 01/29/20 Status: Ordered MiraLax oral powder for reconstitution = 17 Gm, By Mouth, Daily, PRN Constipation, dissolve in water before taking, # 527 Gm, 0 Refills, Maintenance, 10/22/21 15:11:00 EST, REC Powder, [facility] #95637, Partial fill upon patient request if the prescription is for a schedule II o... Start Date: 10/22/21 Status: Ordered oxyCODONE 5 mg oral tablet 2.5 mg, 0.5, tablet, By Mouth, Every 6 hours, PRN, Refills 0, Tot. Refills 0, Maintenance, as needed for pain, 10/29/21 2:41:00 EST, Partial fill upon patient request if the prescription is for a schedule II opioid drug. Start Date: 10/29/21 Status: Ordered predniSONE 5 mg oral tablet 5 tablet = 25 mg, By Mouth, Daily, # 60 tablet, 0 Refills, Maintenance, 10/29/21 2:41:00 EST, Tablet, Partial fill upon patient request if the prescription is for a schedule II opioid drug. Start Date: 10/29/21 Status: Ordered PULSE OXIMETER PULSE OXIMETER, See Instructions, # 1 Unknown, Refills 0, Tot. Refills 0, Maintenance, DX: HYPOXIA R09.2 USE DAILY LIFETIME USE, 12/13/19 13:58:00 EST, Compound Start Date: 12/13/19 Status: Ordered Robaxin-750 750 mg oral tablet 2 tablet = 1,500 mg, By Mouth, 3 times a day, PRN Pain , Moderate, # 90 tablet, 3 Refills, Maintenance, 03/13/21 13:26:00 EDT, Tablet, [facility] #10858, 170, cm, 10/02/20 10:06:00 EST, Height, 56.3, kg, 11/24/19 22:58:00 EST, Dry Weight Start Date: 03/13/21 Status: Ordered Senna 8.6 mg oral tablet 17.2 mg, 2, tablet, By Mouth, Daily at bedtime, PRN, # 100 tablet, Refills 0, Tot. Refills 0, Maintenance, for constipation, 10/22/21 15:09:00 EST, Route to Pharmacy Electronically, [facility] #95106 Tablet, Partial fill upon patient request... Start Date: 10/22/21 Status: Ordered Shower Chair See Instructions, # [...] 1 tablet = 50 mg, By Mouth, Every 8 hours, PRN as needed for pain, 0 Refills, Maintenance, :11:00 EST, Tablet, Partial fill upon patient request if the prescription is for a schedule II opioid drug. Start Date: 10/29/21 Status: Ordered Tylenol 8 HR Arthritis Pain 650 mg oral tablet, extended release 1 tablet = 650 mg, By Mouth, Every 8 hours, PRN Pain , Moderate, # 100 tablet, 1 Refills, Maintenance, 02/26/21 15:47:00 EDT, ER Tablet, [facility] #[id number], Partial fill upon patient requestif the prescription [...] 01/06/21 14:35:00 EST, Route to Pharmacy Electronically, [facility] #09388, 170, cm, 10/02/20 10:06:00 EST, Height, 56.3, kg, 11/24/19 22:58:00 EST, Dry Weight Start Date: 01/06/21 Status: Ordered Zofran 4 mg oral tablet 1 tablet = 4 mg, By Mouth, 3 times a day, PRN nausea, # 30 tablet, 0 Refills, Maintenance, :17:00 EDT, Tablet, [facility] #28721, 170, cm, 12/13/19 13:51:00 EST, Height, 56.3, [...]
--- OUTSIDE RECORDS SUMMARY | 2023-08-21 08:44 | XMS_ITS | Continuity of Care Document ---
Author Name Unknown Organization [facility] Address [address] [place] [address]- Care Team Providers Care Cigar Packing Examiner Name Role Phone Graciela Nunez MD Primary Care Physician Encounter [id number] Date(s): 09/11/21 - 09/18/21 [facility] [address] [place], [place] [address] Encounter Diagnosis COPD exacerbation(Discharge Diagnosis) - 09/11/21 Anxiety(Discharge Diagnosis) - 09/11/21 Leg swelling(Discharge Diagnosis) - 09/11/21 Compression fracture of spine(Discharge Diagnosis) - 09/11/21 Attending Physician: Graciela Nunez MD Allergies, Adverse [...] 23-valent vaccine 5 07/31/10 Recorded 1Location History: [place], [place] 2Admin Note: done @ dr jones office 3Location History: [facility] 4Location History: [facility] 5Location History: [facility] Medications alendronate 70 mg [...] 0 Refills, Maintenance, 09/01/21 15:19:00 EDT, Capsule, [facility] #85005, Partial fill upon patient request if the prescription i... Start Date: 09/01/21 Stop Date: 09/15/21 Status: Ordered duloxetine 30 mg oral enteric coated capsule 1 capsule = 30 mg, By Mouth, Daily, do not crush or chew, # 30 capsule, 3 Refills, Maintenance, 09/11/21 12:04:00 EST, CR Capsule, [facility] #12603, Partial fill upon patient request if the prescription is for a schedule II opioid drug., 17... Start Date: 09/11/21 Status: Ordered folic acid 1 mg oral tablet 1 mg, 1, tablet, By Mouth, Daily, # 30 tablet, Refills 5, Tot. Refills 5, Maintenance, 01/31/21 16:35:00 EDT, Route to Pharmacy Electronically, [facility] #40706, 170, cm, 10/02/20 10:06:00EST, Height, 56.3, kg, 11/24/19 22:58:00 EST, Dry W... Start Date: 01/31/21 Status: Ordered furosemide 20 mg oral tablet 1, tablet, By Mouth, Daily, PRN, # 90 tablet, Refills 0, Tot. Refills 0, Maintenance, NEEDED FORLEG SWELLING, 04/19/20 15:50:00 EDT, Route to Pharmacy Electronically, [facility] #07450,170, cm, 12/13/19 13:51:00 EST, Height, 56.3, kg, 0... Start Date: 04/19/20 Status: Ordered gabapentin 300 mg oral capsule 2, capsule, By Mouth, 3 times a day, # 180 capsule, Refills 1, Tot. Refills 1, Maintenance, 08/26/21 10:50:00 EDT, Route to Pharmacy Electronically, [facility] #[id number], 162.56, cm, 08/22/21 2:36:00 EDT, Height, 52.65, [...] tablet, 0 Refills, Maintenance, 09/10/21 16:04:00 EST, [facility] #32214, 170, cm, 08/30/21 17:40:00 EDT, Height,51.5, kg, 08/30/21 17:40:00 EDT, Dry Weight Start Date: 09/10/21 Status: Ordered Metoprolol Succinate ER 25 mg oral tablet, extended release 1 tablet = 25 mg, By Mouth, Daily, # 90 tablet, 1 Refills, Maintenance, 01/29/20 10:50:00 EDT, XL Tablet, [facility] #14736, 170, cm, 12/13/19 13:51:00 EST, Height, 56.3, kg, 11/24/19 22:58:00 EST, Dry Weight Start Date: 01/29/20 Status: Ordered predniSONE 10 mg oral tablet See Instructions, 4 tabs x 3 days, 3 tabs x 3 days, 2 tabs x 3 days, 1 tab x 3 days, # 30 tablet, 0Refills, Acute 10/11/21 12:03:00 EST, 09/11/21 12:03:00 EST, Tablet, [facility] #11086, Partial fill upon patient request if the [...] 3 Refills, Maintenance, 03/13/21 13:26:00 EDT, Tablet, [facility] #21164, 170, cm, 10/02/20 10:06:00 EST, Height, 56.3, [...] Refills, Maintenance, 02/26/21 15:47:00 EDT, ER Tablet, [facility] #34243, Partial fill upon patient requestif the prescription [...] 01/06/21 14:35:00 EST, Route to Pharmacy Electronically, [facility] #[id number], 170, cm, 10/02/20 10:06:00 EST, Height, 56.3, kg, 11/24/19 22:58:00 EST, Dry Weight Start Date: 01/06/21 Status: Ordered Zofran 4 mg oral tablet 1 tablet = 4 mg, By Mouth, 3 times a day, PRN nausea, # 30 tablet, 0 Refills, Maintenance, :17:00 EDT, Tablet, [facility] #53756, 170, cm, 12/13/19 13:51:00 EST, Height, 56.3, [...] Active Leg swelling(Confirmed) Active Abnormal TSH(Confirmed) Active Diagnosis Diagnosis Type Effective Dates Health Status Clinical Service Informant COPD exacerbation Discharge Diagnosis 09/11/21 Anxiety Discharge Diagnosis 09/11/21 Leg swelling Discharge Diagnosis 09/11/21 Compression fracture of spine Discharge Diagnosis 09/11/21 Social History Social History Type Response Smoking Status Current every day maria elena penn; Tobacco use times per day: smokes about 1.5 packs per day; entered on: 04/16/16 Sex
--- OUTSIDE RECORDS SUMMARY | 2023-08-21 08:44 | XMS_ITS | Continuity of Care Document ---
Author Name Unknown Organization [facility] Address [address] [place] [address]- Care Team Providers Care Health Social Work Professor Name Role Phone Graciela Nunez MD Primary Care Physician [phone] En[place] [facility] Date(s): 10/22/21 - 11/21/21 [facility] [address] [place], [place] [address] Allergies, Adverse Reactions, Alerts [...] 23-valent vaccine 6 07/31/10 Recorded 1Result Comment: [id number] given w/out incident 2Location History: [place], [place] 3Admin Note: done @ dr jones office 4Location History: [facility] 5Location History: [facility] [...] 10/22/21 15:09:00 EST, Route to Pharmacy Electronically, [facility][id number], Partial fill upon patient request if the pr... Start Date: 10/22/21 Status: Ordered diltiazem 180 mg/24 hours oral capsule, extended release 180 mg, 1, capsule, By Mouth, Daily, # 30 capsule, Refills 0, Tot. Refills 0, Maintenance, 11/06/2209:09:00 EST, Route to Pharmacy Electronically, [facility] #[id number], Partial fill upon patient request if the [...] 01/31/21 16:35:00 EDT, Route to Pharmacy Electronically, [facility] #[id number], 170, cm, 10/02/20 10:06:00EST, Height, 56.3, kg, [...] 08/26/21 10:50:00 EDT, Route to Pharmacy Electronically, [facility] #[id number], 162.56, cm, 08/22/21 2:36:00 EDT, Height, 52.65, kg, 08/22/21 2:36:00 EDT... Start Date: 08/26/21 Status: Ordered LORazepam 0.5 mg oral tablet 1 tablet = 0.5 mg, By Mouth, 2 times a day, PRN as needed for anxiety, # 28 tablet, 0 Refills, Maintenance, 11/19/21 13:26:00 EST, [facility] #[id number], 173, cm, 11/06/21 7:58:00 EST, Height, 46.2, kg, 10/29/21 15:33:00 EST, Dry Weight Start Date: 11/19/21 Status: Ordered MiraLax oral powder for reconstitution = 17 Gm, By Mouth, Daily, PRN Constipation, dissolve in water before taking, # 527 Gm, 0 Refills, Maintenance, 10/22/21 15:11:00 EST, REC Powder, [facility] #[id number], Partial fill upon patient request if the [...] 3 Refills, Maintenance, 03/13/21 13:26:00 EDT, Tablet, [facility] #[id number], 170, cm, 10/02/20 10:06:00 EST, Height, 56.3, kg, 11/24/19 22:58:00 EST, Dry Weight Start Date: 03/13/21 Status: Ordered Senna 8.6 mg oral tablet 17.2 mg, 2, tablet, By Mouth, Daily at bedtime, PRN, # 100 tablet, Refills 0, Tot. Refills 0, Maintenance, for constipation, 10/22/21 15:09:00 EST, Route to Pharmacy Electronically, [facility] #[id number] Tablet, Partial fill upon patient request... Start [...] Refills, Maintenance, 02/26/21 15:47:00 EDT, ER Tablet, [facility] #[id number], Partial fill upon patient requestif the prescription [...]
--- OUTSIDE RECORDS SUMMARY | 2023-08-21 08:44 | XMS_ITS | Continuity of Care Document ---
Author Name Unknown Organization [facility] Address [address] [place] [address]- Care Team Providers Care Care Professionals Name Role Phone Graciela Nunez MD Primary Care Physician [phone] Encounter [facility] Date(s): 01/22/22 - 02/21/22 [facility] [address] [place], [place] [address] Allergies, Adverse Reactions, Alerts [...] 23-valent vaccine 6 07/31/10 Recorded 1Result Comment: [id number] given w/out incident 2Location History: [place], [place] 3Admin Note: done @ dr jones office 4Location History: [facility] 5Location History: [facility] 6Location History: [facility] Medications aspirin 81 mg oral [...] 02/04/22 11:02:00 EDT, Route to Pharmacy Electronically, [facility] #[id number], change in dosage, 170, cm, 02/04/22 10:40:00 EDT, Height, 44.1, kg, 02... Start Date: 02/04/22 Status: Ordered calcium (as carbonate)-vitamin D 500 mg-400 intl units oral tablet 1 tablet, By Mouth, 2 times a day, calcium 500/vitamin d 400 iu twice daily, # 60 tablet, 6 Refills, Maintenance, 02/11/22 10:15:00 EDT, Tablet, [facility] #[id number], Partial fill upon patientrequest if the prescription is for a schedule II op... Start Date: 02/11/22 Status: Ordered Colace sodium 100 mg oral capsule 100 mg, 1, capsule, By Mouth, 2 times a day, PRN, # 60 capsule, Refills 5, Tot. Refills 5, Maintenance, for constipation, 02/04/22 11:08:00 EDT, Route to Pharmacy Electronically, [facility][id number], prefers gel formulation, 170, cm, 02/04/22... Start Date: 02/04/22 Status: Ordered diltiazem 180 mg/24 hours oral capsule, extended release 180 mg, 1, capsule, By Mouth, Daily, # 30 capsule, Refills 0, Tot. Refills 0, Maintenance, 11/06/2209:09:00 EST, Route to Pharmacy Electronically, [facility] #[id number], Partial fill upon patient request if the prescription is for a schedule II... Start Date: 11/06/21 Status: Ordered Flonase 50 mcg/inh nasal spray 1 sprays, Nares, Both, Daily in AM, # 16 Gm, 4 Refills, Maintenance, 12/03/21 12:34:00 EST, [place], [facility] #[id number], Partial fill upon patient request if the prescription is for a scheduleII opioid drug., 1 sprays Nares, Both Daily in AM,... Start Date: 12/03/21 Status: Ordered folic acid 1 mg oral tablet 1 mg, 1, tablet, By Mouth, Daily, # 30 tablet, Refills 5, Tot. Refills 5, Maintenance, 01/31/21 16:35:00 EDT, Route to Pharmacy Electronically, [facility] #[id number], 170, cm, 10/02/20 10:06:00EST, Height, 56.3, kg, [...] 02/09/22 15:13:00 EDT, Route to Pharmacy Electronically, [facility] #[id number], 170, cm, 02/04/22 11:19:00 EDT, Height, 44.1, kg, 12/20/21 16:05:00 EST,... Start Date: 02/09/22 Status: Ordered Hair, Skin & Nails 5 mg oral capsule 1 capsule = 5 mg, By Mouth, Daily, # 90 capsule, 3 Refills, Maintenance, 02/19/22 12:29:00 EDT, [facility] #[id number], Partial fill upon patient request if the prescription is for a schedule IIopioid drug., 1 capsule By Mouth Daily, 170, cm, 04... Start Date: 02/19/22 Status: Ordered lactulose 10 gm/15 ml oral syrup 15 mL = 10 Gm, By Mouth, Every 72 hours, PRN as needed for constipation, # 300 mL, 5 Refills, Maintenance, 01/05/22 10:50:00 EST, Syrup, [facility] #[id number], Partial fill upon patient requestif the prescription is for a schedule II opioid ivonne... Start Date: 01/05/22 Status: Ordered LORazepam 0.5 mg oral tablet 1 tablet = 0.5 mg, By Mouth, 3 times a day, # 60 tablet, 3 Refills, Maintenance, 02/04/22 11:05:00 EDT, Tablet, [facility] #[id number], Partial fill upon patient request if the [...] 03/07/22 11:16:00 EDT, 02/04/22 11:16:00 EDT, Tablet, [facility] #[id number], Partial fill upon patient request if the [...] 10/22/21 15:09:00 EST, Route to Pharmacy Electronically, [facility] #[id number] Tablet, Partial fill upon patient request... Start [...] Refills, Maintenance, 02/26/21 15:47:00 EDT, ER Tablet, [facility] #[id number], Partial fill upon patient requestif the prescription [...] 11 Refills, Maintenance, 12/02/21 10:55:00 EST, Capsule, [facility] #[id number], Partial fill upon patient request if the [...]
--- OUTSIDE RECORDS SUMMARY | 2023-08-21 08:44 | XMS_ITS | Continuity of Care Document ---
Author Name Unknown Organization [facility] [place] [facility] Address [address] [place] [address]- Care Team Providers Care Milker Machine Name Role Phone Graciela Nunez MD Primary Care Physician [phone] Encounter [facility] Date(s): 06/22/23 - 07/22/[address] [facility] [place] [place] [facility] [address] [place], [place] [address] Allergies, Adverse Reactions, Alerts Substance [...] 23-valent vaccine 6 07/31/10 Recorded 1Result Comment: [id number] given w/out incident 2Location History: [place], [place] 3Admin Note: done @ dr jones office 4Location History: [facility] 5Location History: [facility] 6Location History: [facility] Medications acetaminophen 325 mg [...] 0 Refills, Maintenance, 06/24/23 19:50:00 EDT,[facility]acy #[id number], Partial fill upon patient request if the [...] Care Nurse Name: Morgan Abbott MD Position: [facility] Renal MD Member Role: Lifetime Consulting Physician Address: Address: [address] [place] [address], [address] Name: Bernice Molina RN Position: S RN Member Role: Primary Care Nurse Name: Graciela Nunez MD Position: [facility] Physician - Primary Care Member Role: PCP Address: Address: [address] [place] [address]- Name: Maryam Camara RN Position: S RN Member Role: Primary Care Nurse Name: Josemanuel Hawkins RN Position: S RN Member Role: Primary Care Nurse Name: Milana Garland RN Position: S RN Member Role: Primary Care Nurse Name: Mckay Esquivel MD Position: [facility] Renal MD Member Role: Lifetime Consulting Physician Address: Address: [address] [place] [address], [place] [address]- Name: Rylie Francois RN Position: S RN [...] Role: Lifetime Consulting Physician Address: Address: [address] [place] [address] [facility] [address] Name: Olga Valladares RN Position: [facility] RN Member Role: Primary Care Nurse Name: Karyn Quezada RN Position: [facility] RN Member Role: Primary Care Nurse Name: Ruby Alexandre RN Position: [facility] RN Member Role: Primary Care Nurse Address: Address: [address] [place] [address]- Name: Celso Lawson MD Position: [facility] Renal MD Member Role: Lifetime Consulting Physician Address: Address: [address] [place] [address] [facility] [address] Name: Alyssa Camacho RN Position: [facility] RN Member Role: Primary Care Nurse Name: Keely Pascal RN Position: S RN Member Role: Primary Care Nurse Name: Chloe Fisher LPN Position: S RN Member Role: Primary Care Nurse Care Team Related Persons Name: LAZARUS OSBORNE Address: [place] [address] Name: KAVON NICOLE Address: home [address] [place] [address] Name: , [facility] NONE
--- OUTSIDE RECORDS SUMMARY | 2023-08-21 08:44 | XMS_ITS | Continuity of Care Document ---
Author Name Unknown Organization [facility] Address [address] [place] [address]- Care Team Providers Care Processor Solid Propellant Name Role Phone Graciela Nunez MD Primary Care Physician Encounter [facility] Date(s): 08/21/22 - 09/20/22 [facility] [address] [place], [place] [address] Allergies, Adverse Reactions, Alerts Substance [...] 23-valent vaccine 6 07/31/10 Recorded 1Result Comment: [id number] given w/out incident 2Location History: [place], [place] 3Admin Note: done @ dr jones office 4Location History: [facility] 5Location History: [facility] 6Location History: [facility] Medications aspirin 81 mg oral [...] 3 Refills, Maintenance, 04/09/22 9:54:00 EDT, Tablet, [facility] #[id number], Partial fill upon patient request if the prescription is for a schedule II opioid drug., 1 tablet By Mouth Daily, 170, cm, 02/04... Start Date: 04/09/22 Status: Ordered busPIRone 10 mg oral tablet 10 mg, 1, tablet, By Mouth, 3 times a day, # 90 tablet, Refills 3, Tot. Refills 3, Maintenance, 07/30/22 13:44:00 EDT, Route to Pharmacy Electronically, [facility]/pharmacy #[id number], new dosage, 170, cm, 02/04/22 11:19:00 EDT, Height, 44.1, kg, 12/20/21 16:05:0... Start Date: 07/30/22 Status: Ordered calcium (as carbonate)-vitamin D 500 mg-400 intl units oral tablet 1 tablet, By Mouth, 2 times a day, calcium 500/vitamin d 400 iu twice daily, # 60 tablet, 6 Refills, Maintenance, 02/11/22 10:15:00 EDT, Tablet, [facility] #[id number], Partial fill upon patientrequest if the prescription is for a schedule II op... Start Date: 02/11/22 Status: Ordered calcium-vitamin D 600 mg-400 intl units oral tablet 1 tablet, By Mouth, 2 times a day, # 60 tablet, 6 Refills, Maintenance, 05/15/22 16:21:00 EDT, Tablet, [facility] #[id number], Partial fill upon patient request if the [...] EDT, Route to Pharmacy Electronically, [facility]/pharmacy #[id number],prefers gel formulation, 170, cm, 02/04/22 11:19:00... Start Date: 06/23/22 Status: Ordered diltiazem 180 mg/24 hours oral capsule, extended release 180 mg, 1, capsule, By Mouth, Daily, # 30 capsule, Refills 0, Tot. Refills 0, Maintenance, 11/06/2209:09:00 EST, Route to Pharmacy Electronically, [facility] #[id number], Partial fill upon patient request if the prescription is for a schedule II... Start Date: 11/06/21 Status: Ordered Flonase 50 mcg/inh nasal spray 1 sprays, Nares, Both, Daily in AM, # 16 Gm, 4 Refills, Maintenance, 12/03/21 12:34:00 EST, [place], [facility] #[id number], Partial fill upon patient request if the prescription is for a scheduleII opioid drug., 1 sprays Nares, Both Daily in AM,... Start Date: 12/03/21 Status: Ordered folic acid 1 mg oral tablet 1 mg, 1, tablet, By Mouth, Daily, # 30 tablet, Refills 11, Tot. Refills 11, Maintenance, 02/25/22 16:15:00 EDT, Route to Pharmacy Electronically, [facility] #[id number], 170, cm, 02/04/22 11:19:00 EDT, Height, 44.1, [...] EDT, Route to Pharmacy Electronically, [facility]/pharmacy #[id number], 170, cm, 02/04/22 11:19:00 EDT, Height, 44.1, kg, 12/20/21 16:05:00 EST, Dry Weight Start Date: 08/13/22 Status: Ordered Hair, Skin & Nails 5 mg oral capsule 1 capsule = 5 mg, By Mouth, Daily, # 90 capsule, 3 Refills, Maintenance, 02/19/22 12:29:00 EDT, [facility] #[id number], Partial fill upon patient request if the prescription is for a schedule IIopioid drug., 1 capsule By Mouth Daily, 170, cm, 04... Start Date: 02/19/22 Status: Ordered hydrOXYzine hydrochloride 10 mg oral tablet 1-2 TABLETS, By Mouth, 2 times a day, PRN NEEDED FOR ANXIETY, # 60 tablet, 3 Refills, Maintenance, 07/30/22 13:45:00 EDT, [facility]/pharmacy #[id number], 170, cm, 02/04/22 11:19:00 EDT, Height, 44.1, kg, 12/20/21 16:05:00 EST, Dry Weight Start Date: 07/30/22 Status: Ordered lactulose 10 gm/15 ml oral syrup 15 mL = 10 Gm, By Mouth, Every 72 hours, PRN as needed for constipation, # 300 mL, 5 Refills, Maintenance, 03/19/22 14:45:00 EDT, Syrup, [facility] #[id number], Partial fill upon patient requestif the prescription is for a schedule II opioid ivonne... Start Date: 03/19/22 Status: Ordered LORazepam 0.5 mg oral tablet 1 tablet = 0.5 mg, By Mouth, 3 times a day, # 60 tablet, 3 Refills, Maintenance, 07/08/22 17:11:00 EDT, Tablet, [facility]/pharmacy #[id number], Partial fill upon patient request if the prescription is for a schedule II opioid drug., 170, cm, 02/04/22 11:19:00 EDT... Start Date: 07/08/22 Status: Ordered LORazepam 0.5 mg oral tablet 1 tablet = 0.5 mg, By Mouth, 3 times a day, # 60 tablet, 3 Refills, Maintenance, 09/18/22 16:44:00 EST, Tablet, [facility]/pharmacy #[id number], Partial fill upon patient request [...] 10/22/21 15:09:00 EST, Route to Pharmacy Electronically, [facility] #[id number] Tablet, Partial fill upon patient request... Start [...] days, # 21 tablet, 0 Refills, Acute 09/25/22 14:15:00 EST, 09/18/22 14:15:00 EST, Tablet, [facility]/pharmacy #[id number], Partial fill upon patient request if the prescription is for a sched... Start Date: 09/18/22 Stop Date: 09/25/22 Status: Ordered Trelegy Ellipta 200 mcg-62.5 mcg-25 [...] Refills, Maintenance, 02/26/21 15:47:00 EDT, ER Tablet, [facility] #[id number], Partial fill upon patient requestif the prescription [...] 11 Refills, Maintenance, 12/02/21 10:55:00 EST, Capsule, [facility] #[id number], Partial fill upon patient request if the [...] Team Personnel Name: Angie Farmer RN Position: [facility] RN Member Role: Primary Care Nurse Name: Milena ORTIZ, Morgan Hancock Position: [facility] Renal MD Member Role: Lifetime Consulting Physician Address: Address: [address] [place] [address], [address] [place] [address] Name: Graciela Nunez MD Position: [facility] Primary Care Physician Member Role: PCP Address: Address: [address] [place] [id number]- Name: Luisa Storey RN Position: [facility] RN Member Role: Primary Care Nurse Care Team Related Persons Name: LZAARUS OSBORNE Address: [place] [address] Name: KAVON NICOLE Address: [address] [place] [address] Name: , [facility]
--- OUTSIDE RECORDS SUMMARY | 2023-08-21 08:44 | XMS_ITS | Continuity of Care Document ---
Author Name Unknown Organization [facility] Address [address] [address]- Care Team Providers Care Gmat Tutor Name Role Phone Graciela Nunez MD Primary Care Physician Encounter [facility] [place] Date(s): 04/30/20 - 05/07/20 [facility] [address] [place] [address]- [facility] Encounter Diagnosis Emphysema/COPD(Discharge Diagnosis) - 04/30/20 Leg swelling(Discharge Diagnosis) - 04/30/20 Superficial thrombophlebitis(Discharge Diagnosis) - 04/30/20 Attending Physician: Graciela Nunez MD Allergies, Adverse [...] 23-valent vaccine 5 07/31/10 Recorded 1Location History: [place], [place] 2Admin Note: done @ dr jones office 3Location History: [facility] 4Location History: [facility] 5Location [...] Replace Required Details, Route to Pharmacy Electronically, [facility] #[id number]... Start Date: 01/31/20 Status: Ordered [...] 01/18/20 10:43:00 EDT, Route to Pharmacy Electronically, [facility] #[id number], 170, cm, 12/13/19 13:51:00EST, Height, 56.3, kg, 11/24/19 22:58:00 EST, Dry W... Start Date: 01/18/20 Status: Ordered furosemide 20 mg oral tablet 1, tablet, By Mouth, Daily, PRN, # 90 tablet, Refills 0, Tot. Refills 0, Maintenance, NEEDED FORLEG SWELLING, 04/19/20 15:50:00 EDT, Route to Pharmacy Electronically, [facility] #[id number],170, cm, 12/13/19 13:51:00 EST, Height, 56.3, kg, 0... Start Date: 04/19/20 Status: Ordered gabapentin 300 mg oral capsule See Instructions, TAKE 2 CAPSULES BY MOUTH EVERY MORNING, 1 CAPSULE MID DAY AND 2 CAPSULES EVERY NIGHT AT BEDTIME, # 150 capsule, Refills 1, Maintenance, Instructions Replace Required Details, Route to Pharmacy Electronically, [facility] #[id number]... Start Date: 01/19/20 Status: Ordered Home [...] Refills, Maintenance, 01/29/20 10:50:00 EDT, XL Tablet, [facility] #[id number], 170, cm, 12/13/19 13:51:00 EST, Height, 56.3, kg, 11/24/19 22:58:00 EST, Dry Weight Start Date: 01/29/20 Status: Ordered predniSONE 10 mg oral tablet See Instructions, 3 tabs x 3 days, 2 tabs x 3 days, 1 tab x 3 days, # 18 tablet, 0 Refills, Acute 05/11/20 15:18:00 EDT, 04/30/20 15:16:00 EDT, Tablet, [facility] #[id number], 170, cm, 12/13/19 13:51:00 EST, Height, 56.3, kg, 11/24/19 22:58:00 ES... Start Date: 04/30/20 Stop Date: 05/11/20 Status: Ordered PULSE OXIMETER PULSE OXIMETER, See [...] 12/18/19 14:10:00 EST, Route to Pharmacy Electronically, [facility] #[id number], 170, cm, 12/13/19 13:51:00 EST, Height, 56.3, [...] Status Clinical Service Informant Emphysema/COPD Discharge Diagnosis 04/30/20 Leg swelling Discharge Diagnosis 04/30/20 Superficial thrombophlebitis Discharge Diagnosis 04/30/20 Social History Social History Type Response Smoking Status Current every day sm oker; Tobacco use times per day: smokes about 1.5 packs per day; entered on: 04/16/16 Sex
--- OUTSIDE RECORDS SUMMARY | 2023-08-21 08:44 | XMS_ITS | Continuity of Care Document ---
Author Name Unknown Organization [facility] Address [address] [place] [address]- Care Team Providers Care Butt Maker Name Role Phone Graciela Nunez MD Primary Care Physician Encounter [facility] Date(s): 05/05/23 - 06/04/23 [facility] [address] [place], [place] [address] Allergies, Adverse Reactions, Alerts Substance Reaction Severity Status codeine Rash Nausea Moderate Active sulfADIAZINE Rash Moderate Active morphine respiratory depression Activ e Lyrica increased depression Active Immunizations Given and Recorded Vaccine Date Status Refusal Reason influenza virus vaccine, inactivated 1 10/09/21 Gi kie influenza virus vaccine, inactivated 2 10/20/17 Re [...] 23-valent vaccine 6 07/31/10 Recorded 1Result Comment: [id number] given w/out incident 2Location History: [place], [place] 3Admin Note: done @ dr jones office 4Location History: [facility] 5Location History: [facility] 6Location History: [facility] Medications albuterol-ipratropium 3 mg-0.5 mg/3 [...] 05/25/23 15:31:00 EDT, Route to Pharmacy Electronically, [facility]/pharmacy #[id number], Partial fill upon patient request if the [...] A DAY NEEDED FOR CONSTIPATION. FILLED AT [facility] Start Date: 03/18/23 Status: Ordered folic acid 1 mg oral tablet 1 mg, 1, tablet, By Mouth, Daily, # 30 tablet, Refills 11, Tot. Refills 11, Maintenance, 12/03/22 9:01:00 EST, Route to Pharmacy Electronically, [facility]/pharmacy #[id number], 170, cm, 02/04/22 11:19:00 EDT, Height, 44.1, kg, 12/20/21 16:05:00 EST, Dry Weight Start Date: 12/03/22 Status: Ordered gabapentin 300 mg oral capsule 2, capsule, By Mouth, 3 times a day, # 180 capsule, Refills 5, Tot. Refills 5, Maintenance, 08/13/22 13:03:00 EDT, Route to Pharmacy Electronically, [facility]/pharmacy #[id number], 170, cm, 02/04/22 11:19:00 EDT, Height, 44.1, kg, 12/20/21 16:05:00 EST, Dry Weight Start Date: 08/13/22 Status: Ordered hydrOXYzine hydrochloride 10 mg oral tablet 3 tablet = 30 mg, By Mouth, 3 times a day, PRN NEEDED FOR ANXIETY, # 270 tablet, 3 Refills, Maintenance, 03/01/23 12:03:00 EDT, [facility]/pharmacy #[id number], 170, cm, 02/04/22 11:19:00 [...] 3 Refills, Maintenance, 12/16/22 9:12:00 EST, Capsule, [facility]/pharmacy #[id number], Partial fill upon patient [...] Role: Lifetime Consulting Physician Address: Address: [address] [place] [address], [address] Name: Graciela Nunez MD Position: [facility] Physician - Primary Care Member Role: PCP Address: Address: [address] [place] [address] Name: Maryam Camara RN Position: [facility] [...] Member Role: Lifetime Consulting Physician Address: Address: [address] [place] [address] [address] [facility] [address] Name: Olga Valladares RN Position: S RN Member Role: Primary Care Nurse Name: Ruby Alexandre RN Position: S RN Member Role: Primary Care Nurse Address: Address: [address] [place] [address]- Name: Celso Lawson MD Position: [facility] Renal MD Member Role: Lifetime Consulting Physician Address: Address: [address] [place] [address] [facility] [place] [address]- Name: Alyssa Camacho RN Position: S RN Member Role: Primary Care Nurse Name: Keely Pascal RN Position: S RN Member Role: Primary Care Nurse Name: Chloe Fisher LPN Position: S RN Member Role: Primary Care Nurse Care Team Related Persons Name: LAZARUS OSBORNE Address: [place] [address] Name: KAVON NICOLE Address: home [address] [place] [address] Name: PT, [facility] NONE
--- OUTSIDE RECORDS SUMMARY | 2023-08-21 08:44 | XMS_ITS | Continuity of Care Document ---
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 Phone Graciela Nunez MD Primary Care Physician [place] [facility] [place] 04/27/23 - 05/27/23 [facility] [address] [place], [place] [address] Allergies, Adverse Reactions, Alerts Substance [...] 23-valent vaccine 6 07/31/10 Recorded 1Result Comment: [id number] given w/out incident 2Location History: [place], [place] 3Admin Note: done @ dr jones office 4Location History: [facility] 5Location History: [facility] [...] 05/25/23 15:31:00 EDT, Route to Pharmacy Electronically, [facility]/pharmacy #[id number], Partial fill upon patient request if the [...] A DAY NEEDED FOR CONSTIPATION. FILLED AT [facility] Start Date: 03/18/23 Status: Ordered folic acid 1 mg oral tablet 1 mg, 1, tablet, By Mouth, Daily, # 30 tablet, Refills 11, Tot. Refills 11, Maintenance, 12/03/22 9:01:00 EST, Route to Pharmacy Electronically, [facility]/pharmacy #[id number], 170, cm, 02/04/22 11:19:00 EDT, Height, 44.1, kg, 12/20/21 16:05:00 EST, Dry Weight Start Date: 12/03/22 Status: Ordered gabapentin 300 mg oral capsule 2, capsule, By Mouth, 3 times a day, # 180 capsule, Refills 5, Tot. Refills 5, Maintenance, 08/13/22 13:03:00 EDT, Route to Pharmacy Electronically, [facility]/pharmacy #[id number], 170, [...] 06/01/23 15:30:00 EDT, 05/25/23 15:30:00 EDT, Tablet, [facility]/pharmacy #[id number]... Start Date: 05/25/23 Stop Date: 06/01/23 [...] 0 Refills, Maintenance, 10/02/20 10:55:00 EST, Aerosol, [facility]/pharmacy #[id number], 170, cm, 10/02/20 10:06:00 EST, Height, 56.3, kg, 11/24/19 22:58:00 EST, Dry Weight Start Date: 10/02/20 Status: Ordered Vitamin D3 1000 intl units oral capsule 1 capsule = 25 mcg, By Mouth, Daily, # 30 capsule, 11 Refills, Maintenance, 12/03/22 9:00:00 EST, Capsule, [facility]/pharmacy #[id number], Partial fill upon patient request if the [...] Personnel Name: Milena ORTIZ, Morgan Hancock Position: [facility] Renal MD Member Role: Lifetime Consulting Physician Address: Address: [address] [place] [address] Name: Graciela Nunez MD Position: [facility] Physician - Primary Care Member Role: PCP Address: Address: [address] [place] [address] Name: Maryam Camara RN Position: [facility] RN Member Role: Primary Care Nurse Name: Josemanuel Hawkins RN Position: [facility] RN Member Role: Primary Care Nurse Name: Rylie Francois RN Position: [facility] RN Member Role: Primary Care [...] Care Nurse Name: Romeo Reid MD Position: [facility] Renal MD Member Role: Lifetime Consulting Physician Address: Address: [address] [place] [address] [address] [facility], [place] [address]- Name: Olga Valladares RN Position: S RN Member Role: Primary Care Nurse Name: Ruby Alexandre RN Position: S RN Member Role: Primary Care Nurse Address: Address: [address] [place] [address]- Name: Celso Lawson MD Position: [facility] Renal MD Member Role: Lifetime Consulting Physician Address: Address: [address] [place] [address] [facility] [address] Name: Alyssa Camacho RN Position: S RN Member Role: Primary Care Nurse Name: Keely Pascal RN Position: S RN Member Role: Primary Care Nurse Name: Chloe Fisher LPN Position: S RN Member Role: Primary Care Nurse Care Team Related Persons Name: LAZARUS OSBORNE Address: [place] [address] Name: KAVON NICOLE Address: home [address] [place] [id number] Name: PT, STATES NONE
--- OUTSIDE RECORDS SUMMARY | 2023-08-21 08:44 | XMS_ITS | Continuity of Care Document ---
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 Start Date: 01/31/20 Status: Ordered folic acid 1 mg oral tablet 1 mg, 1, tablet, By Mouth, Daily, # 30 tablet, Refills 3, Tot. Refills 3, Maintenance, 01/18/20 10:43:00 EDT, Route to Pharmacy Electronically, [facility] #[id number], 170, cm, 12/13/19 13:51:00EST, Height, 56.3, kg, 11/24/19 22:58:00 EST, Dry W... Start Date: 01/18/20 Status: Ordered furosemide 20 mg oral tablet 1, tablet, By Mouth, Daily, PRN, # 90 tablet, Refills 0, Tot. Refills 0, Maintenance, NEEDED FORLEG SWELLING, 04/19/20 15:50:00 EDT, Route to Pharmacy Electronically, [facility] #[id number],170, cm, 12/13/19 13:51:00 EST, Height, 56.3, kg, 0... Start Date: 04/19/20 Status: Ordered gabapentin 300 mg oral capsule 600 mg, 2, capsule, By Mouth, 3 times a day, # 180 capsule, Refills 3, Tot. Refills 3, Maintenance,10/01/20 15:48:00 EST, Route to Pharmacy Electronically, [facility] #[id number], 170, cm, 12/13/19 13:51:00 EST, Height, 56.3, kg, 11/24/19 22:58:... Start Date: 10/01/20 Status: Ordered gabapentin 300 mg oral capsule See Instructions, TAKE 2 CAPSULES BY MOUTH three times per day, # 180 capsule, Refills 1, Instructions Replace Required Details, Route to Pharmacy Electronically, [facility] #[id number], 170, cm, 12/13/19 13:51:00 EST, Height, 56.3, [...] Refills, Maintenance, 01/29/20 10:50:00 EDT, XL Tablet, [facility] #[id number], 170, cm, 12/13/19 13:51:00 EST, Height, 56.3, [...] 3 Refills, Maintenance, 11/21/20 10:53:00 EST, Tablet, [facility] #[id number], 170, cm, 10/02/20 10:06:00 EST, Height, 56.3, [...] 6 Refills, Maintenance, 06/17/20 16:11:00 EDT, Aerosol, [facility] #[id number], 170, cm, 12/13/19 13:51:00 EST, Height, 56.3, [...] 12/18/19 14:10:00 EST, Route to Pharmacy Electronically, [facility] #[id number], 170, cm, 12/13/19 13:51:00 EST, Height, 56.3, kg, 11/24/19 22:58:00 EST, Dry Weight Start Date: 12/18/19 Status: Ordered Zofran 4 mg oral tablet 1 tablet = 4 mg, By Mouth, 3 times a day, PRN nausea, # 30 tablet, 0 Refills, Maintenance, 209:17:00 EDT, Tablet, [facility] #[id number], 170, cm, 12/13/19 13:51:00 EST, Height, 56.3, [...]
--- OUTSIDE RECORDS SUMMARY | 2023-08-21 08:44 | XMS_ITS | Continuity of Care Document ---
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 [place] [facility] [address] [place] [address]- [facility] Attending Physician: Dennys Fabian Admitting Physician: Dennys [...] 23-valent vaccine 5 07/31/10 Recorded 1Location History: [place], [place] 2Admin Note: done @ dr jones office 3Location History: [facility] 4Location History: [facility] 5Location History: [facility] Medications alendronate 70 mg oral tablet 0 Refills, Maintenance, 07/13/19 10:24:47 EDT Start Date: 07/13/19 Status: Ordered aspirin 81 mg oral tablet 1 tablet = 81 mg, By Mouth, Daily, # 30 tablet, 0 Refills, Maintenance, 04/16/16 9:15:50, Tablet Start Date: 6/16/16 Status: Ordered Azithromycin 5 Day Dose Pack 250 mg oral tablet 1 pack/packet, By Mouth, Once, # 6 tablet, 0 Refills, Soft Stop, 12/06/19 15:31:00 EST, Tablet, [facility] #[id number], 170, cm, 12/06/19 15:03:00 EST, Height, 56.3, kg, 11/24/19 22:58:00 EST, Dry Weight Start Date: 12/06/19 Status: Ordered folic acid 1 mg oral tablet 1 mg, 1, tablet, By Mouth, Daily, # 30 tablet, Refills 3, Tot. Refills 3, Maintenance, 03/06/19 13:13:46 EDT, Route to Pharmacy Electronically, [id number], [facility] [address] Start Date: 03/06/19 Status: Ordered gabapentin 300 mg oral capsule See Instructions, 2 capsules qam, 1 capsule midday, 2 capsules at night, # 150 capsule, Refills 5, Tot. Refills 5, Maintenance, 03/06/19 13:06:04 EDT, Instructions Replace Required Details, Route to Pharmacy Electronically, [id number]... Start Date: 03/06/19 Status: Ordered Home Blood [...] Refills, Maintenance, 10/29/19 12:31:00 EST, XL Tablet, [facility] #[id number], 170, cm, 07/13/19 9:58:00 EDT, Height, 59.1, kg, 07/07/19 20:49:00 EDT, Dry Weight Start Date: 10/29/19 Status: Ordered Nicoderm C-Q Clear 14 mg/24 hr transdermal film, extended release 1 patch, Topically, Daily, # 30 patch, 0 Refills, Acute 12/27/19 13:41:00 EST, 11/26/19 13:41:00 EST, Patch, [facility] #[id number], 170, cm, 11/26/19 5:22:00 EST, Height, 56.3, kg, 11/24/19 22:58:00 EST, Dry Weight Start Date: 11/26/19 Stop Date: 12/27/19 Status: Ordered predniSONE 10 mg oral tablet See Instructions, 4 tabs x 3 days, 3 tabs x 3 days, 2 tabs x 3 days, 1 tab x 3 days, # 30 tablet, 0Refills, Acute 01/06/20 15:30:00 EST, 12/06/19 15:30:00 EST, Tablet, [facility] #[id number], 170, cm, 12/06/19 15:03:00 EST, Height, 56.3, [...] 12/18/19 14:10:00 EST, Route to Pharmacy Electronically, [facility] #[id number], 170, cm, 12/13/19 13:51:00 EST, Height, 56.3, [...]
--- OUTSIDE RECORDS SUMMARY | 2023-08-21 08:44 | XMS_ITS | Continuity of Care Document ---
Author Name Unknown Organization [facility] ter Address [address] [place] [id number] Care Team Providers Care Participant Administrator Name Role Phone Graciela Nunez MD Primary Care Physician Encounter [facility] Date(s): 03/18/23 - 03/22/23 [facility] [address] [place] [id number] Discharge Disposition: A-D/C Home Attending Physician: Blake ORTIZ, Cheryl Admitting Physician: Ivelisse Hilton DO Referring Physician: [...] 23-valent vaccine 6 07/31/10 Recorded 1Result Comment: [phone] given w/out incident 2Location History: [place], [place] 3Admin Note: done @ dr jones office 4Location History: [facility] 5Location History: [facility] 6Location History: [facility] Medications aspirin 81 mg oral delayed [...] 02/11/23 12:27:00 EDT, Route to Pharmacy Electronically, [facility]/pharmacy #[id number], Partial fill upon patient request if the prescription is... Start Date: 02/11/23 Stop Date: 03/25/23 Status: Ordered docusate sodium 100 mg oral capsule TAKE 1 CAPSULE BY MOUTH 2 TIMES A DAY NEEDED FOR CONSTIPATION. FILLED AT [facility] Start Date: 03/18/23 Status: Ordered folic acid 1 mg oral tablet 1 mg, 1, tablet, By Mouth, Daily, # 30 tablet, Refills 11, Tot. Refills 11, Maintenance, 12/03/22 9:01:00 EST, Route to Pharmacy Electronically, [facility]/pharmacy #[id number], 170, cm, 02/04/22 11:19:00 EDT, Height, 44.1, kg, 12/20/21 16:05:00 EST, Dry Weight Start Date: 12/03/22 Status: Ordered gabapentin 300 mg oral capsule 2, capsule, By Mouth, 3 times a day, # 180 capsule, Refills 5, Tot. Refills 5, Maintenance, 08/13/22 13:03:00 EDT, Route to Pharmacy Electronically, [facility]/pharmacy #[id number], 170, cm, 02/04/22 11:19:00 EDT, Height, 44.1, kg, 12/20/21 16:05:00 EST, Dry Weight Start Date: 08/13/22 Status: Ordered gabapentin 300 mg oral capsule 600 mg, Capsule, By Mouth, 03/22/23 9:00:00 EDT Start Date: 03/22/23 Stop Date: 03/22/23 Status: Completed gabapentin 300 mg oral capsule 600 mg, Capsule, By Mouth, 03/22/23 15:00:00 EDT Start Date: 03/22/23 Stop Date: 03/22/23 Status: Completed hydrOXYzine hydrochloride 10 mg oral tablet 3 tablet = 30 mg, By Mouth, 3 times a day, PRN NEEDED FOR ANXIETY, # 270 tablet, 3 Refills, Maintenance, 03/01/23 12:03:00 EDT, [facility]/pharmacy #[id number], 170, cm, 02/04/22 11:19:00 EDT, Height, 44.1, kg, 12/20/21 16:05:00 EST, Dry Weight Start Date: 03/01/23 Status: Ordered LORazepam 0.5 mg oral tablet 1 tablet = 0.5 mg, By Mouth, 2 times a day, PRN as needed for anxiety, for 5 days, # 10 tablet, 0 Refills, Acute 03/27/23 13:15:00 EDT, 03/22/23 13:15:00 EDT, Tablet, [facility], Partial fill upon patient request if the prescription is f... Start Date: 03/22/23 Stop Date: 03/27/23 Status: Ordered metoprolol 25 mg oral tablet, extended release 25 mg, XL Tablet, By Mouth, 03/22/23 9:00:00 EDT Start Date: 03/22/23 Stop Date: 03/22/23 Status: Completed Metoprolol Succinate ER 25 mg oral tablet, extended release 1 tablet = 25 mg, By Mouth, Daily, TAKE 1 TABLET BY MOUTH ONCE DAILY Start Date: 12/03/22 Status: Ordered multivitamin Multiple Vitamins oral capsule 1 capsule, By Mouth, Daily, # 90 capsule, 3 Refills, Maintenance, 12/16/22 9:12:00 EST, Capsule, [facility]/pharmacy #[id number], Partial fill upon [...] 03/22/23 13:16:00 EDT, Tablet, [facility], Partial fill upon patient [...] tablet, 3 Refills, Maintenance, 02/02/23 13:02:00 EDT, [facility]/pharmacy #[id number], 170, cm, 02/04/22 11:19:00 EDT, Height, 44.1, kg,... Start Date: 02/02/23 Status: Ordered urea 15 g oral powder for reconstitution = 15 Gm, By Mouth, 2 times a day, # 3 each, 0 Refills, Maintenance, 03/22/23 13:18:00 EDT, [facility], Partial fill upon patient request if [...] for Microbiology Reports Name Date Blood Culture 03/18/23 Blood Culture #2 03/18/23 Microbiology Reports TEST:Blood Culture STATUS:Unauthenticated BODY SITE: SOURCE:Blood COLLECTED DATE/TIME:03/18/23 4:48 PM Blood Culture SPECIMEN DESCRIPTION : BLOOD LAC SPECIAL REQUESTS : NONE CULTURE : NO GROWTH 4 DAYS REPORT STATUS : PRELIMINARY REPORT TEST:Blood Culture, Second Order STATUS:Unauthenticated BODY SITE: SOURCE:Blood COLLECTED DATE/TIME:03/18/23 4:48 PM Blood Culture, Second Order SPECIMEN DESCRIPTION : BLOOD R AC SPECIAL REQUESTS : NONE CULTURE : NO GROWTH 4 DAYS REPORT STATUS : PRELIMINARY REPORT Radiology Reports * Exam Date Time Procedure Performing Provider Status 03/18/23 2:51 PM Chest Portable Carlos Barker; Auth ( Verified) Notes: (Chest Portable) Reason For Exam: Shortness of Breath RESULT: Chest Portable Chest Portable Hx of Present Illness: Patient comes in with increasing SOB x 3 days. Hx of SOB.; Reason: Shortnessof Breath; Clinical Question(s): CHF COMPARISON: 12/21/2021 FINDINGS: No acute cardiopulmonary process IMPRESSION: No acute abnormality. WSN: [id number] Ordering Physician: Elizabeth Thornton Dictated By: Moe Hauser MD Dictated Date/Time: 03/18/23 3:00 pm Reviewed By: Moe Hauser MD Signed By: Moe Hauser MD Signed Date/Time: 03/18/23 3:00 pm Transcribed By: VALENTIN Transcribed Date/Time: 03/18/23 2:59 pm Vital Signs Most recent to oldest [Reference Range]: 1 2 3 Height 170 cm (03/22/23 2:29 AM) 170 cm (03/21/23 11:16 PM) 170 cm (03/21/23 7:43 PM) Weight 42 kg (03/19/23 1:42 AM) 42 kg (03/19/23 1:31 AM) Oxygen Saturation [94-100 %] 100 % (03/22/23 3:00 PM) 100 % (03/22/23 7:00 AM) 100 % (03/22/23 3:19 AM) Pulse Rate [55-90 bpm] 104 bpm *H* (03/22/23 3:00 PM) 87 bpm (03/22/23 8:41 AM) 87 bpm (03/22/23 7:00 AM) Body Mass Index [18.5-24.99 kg/m2] 14.53 kg/m2 *L* (03/19/23 1:42 AM) 14.53 kg/m2 *L* (03/19/23 1:31 AM) Blood Pressure [90-138/55-84 mm Hg] 151/77mm Hg *H* (03/22/23 3:00 PM) 135/65mm Hg (03/22/23 8:41 AM) 135/65mm Hg (03/22/23 7:00 AM) Respiratory Rate [16-30 br/min] 22 br/min (03/22/23 3:09 PM) 18 br/min (03/22/23 3:00 PM) 18 br/min (03/22/23 8:41 AM) Temperature [96.8-100.4 DegF] 97.6 DegF (03/22/23 3:00 PM) 97.8 DegF (03/22/23 7:00 AM) 98.2 DegF (03/22/23 3:19 AM) Liters per Minute 6 L/min (03/22/23 3:00 PM) 6 L/min (03/22/23 7:00 AM) 6 L/min (03/22/23 3:19 AM) Mode of Delivery (Oxygen) Nasal cannula (03/22/23 3:00 PM) Nasal CPAP (03/22/23 7:00 AM) Nasal cannula (03/22/23 3:19 AM) Blood pressure sites Arm, right (03/22/23 3:00 PM) Arm, right (03/22/23 7:00 AM) Arm, right (03/22/23 3:19 AM) Temperature Route Oral (03/22/23 3:00 PM) Oral (03/22/23 7:00 AM) Oral (03/22/23 3:19 AM) Dry Weight 42 kg (03/19/23 1:31 AM) Weight Obtained Via Bed scale (03/19/23 1:31 AM) Social History Social History Type Response Tobacco Other: now smoking 1 /2 pack per day. Sex Consult note * Celso Lawson MD: PERFORM, SIGN, VERIFY Event Display: Consult Authored Date: [id number] Patient: KATERINE NICOLE Age: 62 years Sex: Female : 1960 Associated Diagnoses: None Author: Celso Lawson MD Overnight Events & Current Issues RENAL CONSULT Chart reviewed Recurrent HypoNa and prior w/u c/w mixed picture of low solute intake and inapp ADH Start Urea, cont PO restriction and track SNa Full consult to follow Physical Examination Vital Signs Vitals : VITALS 03/19/2023 4:34 EDT Early Warning Score 3.00 03/19/2023 3:58 EDT Early Warning Score 6.00 03/19/2023 3:58 EDT Early Warning Score 6.00 03/19/2023 3:57 EDT Early Warning Score 6.00 03/19/2023 3:00 EDT Temperature 98.1 DegF Temperature Route Oral Pulse Rate 92 bpm H Respiratory Rate 20 br/min Systolic Blood Pressure 92 mm Hg Diastolic Blood Pressure 56 mm Hg Blood pressure sites Arm, right Pulse Pressure 36 mm Hg Oxygen Saturation 100 % Liters per Minute 6 L/min Mode of Delivery (Oxygen) Nasal cannula 03/19/2023 2:42 EDT Early Warning Score 6.00 03/19/2023 2:08 EDT Early Warning Score 6.00 03/19/2023 1:44 EDT Early Warning Score 6.00 03/19/2023 1:42 EDT Height 170 cm Weight 42 kg Body Mass Index 14.53 kg/m2 L Body surface area 1.[address] [place] 1.46 Weight lb/oz 92 lb 9 oz Temperature 97.7 DegF Temperature Route Oral Pulse Rate 126 bpm H Respiratory Rate 20 br/min Systolic Blood Pressure 112 mm Hg Diastolic Blood Pressure 65 mm Hg Blood pressure sites Arm, right Mean Arterial Pressure 81 mm Hg Pulse Pressure 47 mm Hg Oxygen Saturation 99 % Liters per Minute 6 L/min Mode of Delivery (Oxygen) Nasal cannula 03/19/2023 1:40 EDT Pain relief acceptable Yes 03/19/2023 1:31 EDT Height 170 cm Weight 42 kg Dry Weight 42 kg Body Mass Index 14.53 kg/m2 L Body surface area 1.[address] [place] 1.46 Weight lb/oz 92 lb 9 oz Temperature 97.7 DegF Temperature Route Oral Pulse Rate 126 bpm H Respiratory Rate 20 br/min Systolic Blood Pressure 112 mm Hg Diastolic Blood Pressure 65 mm Hg Blood pressure sites Arm, right Mean Arterial Pressure 81 mm Hg Pulse Pressure 47 mm Hg Oxygen Saturation 99 % Liters per Minute 6 L/min Mode of Delivery (Oxygen) Nasal cannula 03/19/2023 1:12 EDT Early Warning Score 4.00 03/19/2023 0:21 EDT Early Warning Score 4.00 03/19/2023 0:19 EDT Pulse Rate 119 bpm H Respiratory Rate 14 br/min L Systolic Blood Pressure 114 mm Hg Diastolic Blood Pressure 65 mm Hg Blood pressure sites Arm, right Pulse Pressure 49 mm Hg Oxygen Saturation 100 % Liters per Minute 6 L/min Mode of Delivery (Oxygen) Humidification 03/19/2023 0:03 EDT Early Warning Score 4.00 03/18/2023 22:49 EDT Early Warning Score 4.00 03/18/2023 22:43 EDT Respiratory Rate 18 br/min Pain Intensity 8 03/18/2023 19:42 EDT Early Warning Score 4.00 03/18/2023 19:42 EDT Pulse Rate 116 bpm H Respiratory Rate 20 br/min Systolic Blood Pressure 124 mm Hg Diastolic Blood Pressure 76 mm Hg Blood pressure sites Arm, right Oxygen Saturation 97 % Liters per Minute 6 L/min Mode of Delivery (Oxygen) Other: humidified via nasal cannula (Modified) 03/18/2023 16:55 EDT Pulse Rate 112 bpm H Respiratory Rate 22 br/min Systolic Blood Pressure 153 mm Hg H Diastolic Blood Pressure 89 mm Hg H Blood pressure sites Arm, left Oxygen Saturation 99 % Liters per Minute 6 L/min Mode of Delivery (Oxygen) Nasal cannula 03/18/2023 14:03 EDT Temperature 98.1 DegF Temperature Route Oral Pulse Rate 118 bpm H Respiratory Rate 28 br/min Systolic Blood Pressure 131 mm Hg Diastolic Blood Pressure 80 mm Hg Blood pressure sites Arm, right Mean Arterial Pressure 97 mm Hg Pulse Pressure 51 mm Hg Oxygen Saturation 99 % Liters per Minute 6 L/min Mode of Delivery (Oxygen) Nasal cannula 1 - 10 pain scale score 0 03/18/2023 13:39 EDT Oxygen Saturation 96 % Liters per Minute 6 L/min Mode of Delivery (Oxygen) Nasal cannula . Weight : Weight lb/oz 03/19/2023 1:42 EDT Weight lb/oz 92 lb 9 oz 03/19/2023 1:31 EDT Weight lb/oz 92 lb 9 oz . BMI : Body Mass Index 03/19/2023 1:42 EDT Body Mass Index 14.53 kg/m2 L 03/19/2023 1:31 EDT Body Mass Index 14.53 kg/m2 L . Admission evaluation note * Franklin ORTIZ, Herman: PERFORM Event Display: Admission Note Authored Date: [id number] Patient: ??KATERINE NICOLE ? Age:??62 Years?Sex:??Female?:??1960?? Chief Complaint/Reason for Consultation Shortness of breath History of Present Illness Patient is a 62 years old female with past medical history of COPD on home oxygen at 6 L, paroxysmal??a flutter,??chronic systolic congestive heart failure presented to ER with a chief complaint of shortness of breath. ? Patient reported that she tried shortness of breath about 4 days ago. ??The patient described the shortness of breath as sudden onset,??gradually worsening, happens both on exertion as well as at rest, associated with ??orthopnea, lower extreme swelling, productive cough but no fever, no chills. ?? Patient denied any chest pain, lower extremity pain, abdominal pain, urine urgency,??dizziness, nausea, vomiting ?? The patient reported that she had similar episode about 2 weeks ago??that resolved after she took 2 pills of Lasix.?? However, patient ported that this time she did not take any Lasix??therefore decided to come to the ED. Review of Systems All pertinent negative and positives are noted in HPI. ??All other systems were reviewed and are negative Objective ? Vital Signs?? Temperature: 98.1 DegF (03/18/23 14:03:00) Temperature Route: Oral (03/18/23 14:03:00) Pulse Rate:??116 bpm??High (03/18/23 19:42:00) Respiratory Rate: 18 br/min (03/18/23 22:43:00) Systolic Blood Pressure: 124 mm Hg (03/18/23 19:42:00) Diastolic Blood Pressure: 76 mm Hg (03/18/23 19:42:00) Blood pressure sites: Arm, right (03/18/23 19:42:00) Mean Arterial Pressure: 97 mm Hg (03/18/23 14:03:00) Pulse Pressure: 51 mm Hg (03/18/23 14:03:00) Oxygen Saturation: 97 % (03/18/23 19:42:00) Liters per Minute: 6 L/min (03/18/23 19:42:00) Mode of Delivery (Oxygen): Other: humidified via nasal cannula (03/18/23 19:42:00) Early Warning Score: 4 (03/18/23 22:49:03) ? Physical Exam Constitutional: Alert, in no acute distress. Head: Normocephalic. ?? Eyes: Pupils are equal, round and reactive to light. Extraocular muscles intact. No pallor or scleral icterus ?? Ear, Nose and Throat: mucous membranes moist. Ears and nose - no obvious deformities. Trachea midline. ?? Neck: Supple, Full range of motion.No JVD or bruits. Respiratory:??Decreased breath sounds bilaterally, diffuse bilateral expiratory wheezing, no rhonchi,??on nasal cannula oxygen Cardiovascular:??PMI not visible. S1 S2 regular. ??Tachycardia, unable to appreciate S3 Gastrointestinal:??Abdomen soft, non-tender, non-distended. Normal bowel sounds. No pulsatile mass.No hepatosplenomegaly. Genitourinary:??No costovertebral angle tenderness. Extremities:??2+ lower extremity pitting edema. No cyanosis or clubbing. Neurologic:??AAOx3, Cranial nerves II-XII grossly intact. Speech normal, no facial droop. No focal neurological deficits. Moves all extremities spontaneously. Sensation intact bilaterally.??Flexor plantar response Skin:??No rash.?? Musculoskeletal:??No gross deformities on inspection. Normal range of motion in hips, knees, ankles.?? .??Muscle strength within normal limits Heme/Lymphatics:??Palpation of neck reveals no swelling or tenderness of neck nodes.?? Psychiatric: Normal mood and affect. Assessment/Plan Diagnoses 1. ??COPD exacerbation ??(J44.1) 2. ??Acute on chronic systolic congestive heart failure ??(I50.23) 3. ??Hyponatremia ??(E87.1) 4. ??Chronic respiratory failure with hypoxia and hypercapnia ??(J96.11) 5. ??Paroxysmal atrial flutter ??(I48.92) 6. ??Peripheral neuropathy ??(G62.9) ?? Assessment:??Is a 62 years old female who is admitted with COPD exacerbation and CHF ?? COPD exacerbation (J44.1):??Patient presented with worsening shortness of breath along with productive cough,??on 6 L nasal cannula oxygen at home In ER, patient was given DuoNebs, 125 mg Solu-Medrol On Physical exam, diffuse bilateral expiratory wheezing,??currently on 6 L saturating above 94% X-ray was done that did not show any evidence of pneumonia Started patient on DuoNebs, Pulmicort,??IV Solu-Medrol 40 mg??daily for 5 days,??resume home medication??azithromycin We will continue??to monitor??respiratory?status ?? Acute on chronic systolic congestive heart failure (I50.23):??Shortness of breath??with lower extremity swelling, small episode about 2 weeks ago that resolved after taking 2 tablets of Lasix Physical exam: Bilateral wheezing, 2+ pitting edema ??proBNP 3717 Echocardiogram in 2021 showed EF of around 40% CXR Did not show any evidence of pulm edema Bedside??ultrasound showed reduced??RV contractility, focal B-lines in left lung Patient also have hyponatremia on labs Repeat echocardiogram We will only give 1 dose of Lasix 20 mg and monitor response Further dosing of Lasix based on volume status,??labs and echocardiogram findings If echocardiogram shows??worsening EF, will consult patient's lime mixer ([facility]) ?? Hyponatremia (E87.1):??Etiology: Likely multifactorial Sodium level??123, patient always have low sodium based on previous labs Patient reported decreased p.o. intake, also has lower extremities on exam On previous admissions, labs were consistent with SIADH and patient was also started on urea powderon 1 over admission Currently patient is asymptomatic Due to??suspicion of seizure, we had given 1 dose of IV Lasix 20 mg Ordered urine studies, serum osmolality, uric acid, Due to underlying CHF,??cannot give sodium tablets??or IV fluid Will monitor sodium every 4 hour Also consulted nephrology, will follow the recommendations ?? Chronic respiratory failure with hypoxia and hypercapnia (J96.11):??Patient is on 6 L oxygen at home Currently, patient saturating well 94% on 6 L baseline oxygen Also labs showed stable CO2 Continue to monitor??respiratory status ?? Paroxysmal atrial flutter (I48.92):??Patient had history of a flutter based on previous??records, however patient not on any anticoagulation Currently patient??is in sinus tachycardia with heart rate in 100-110s EKG was done that shows sinus tach with??premature atrial complexes,??left posterior fascicular block Resume home medication metoprolol 25 mg daily, IV metoprolol as needed Will Monitor on telemetry If patient remains tachycardic with heart rate above 110, will consult patient cardiology? Peripheral neuropathy (G62.9):??Resume home medication gabapentin 600 mg tid ? Chronic back pain: Resume home medication ? VTE Prophylaxis:??Lovenox ?VTE Prophylaxis Assessment:??VTE Prophylaxis Ordered ?? Code Status:??Full code ?Order Code Status:??Code Status Ordered ?? Ongoing Medical Necessity:??COPD exacerbation, CHF ?? Discharge Planning:??Pending clinical course ? Date of service: March 18, 2023 Histories Allergies Allergies ?(Active and Proposed Allergies [...] Budesonide-Formoterol (Symbicort 160mcg/4.5mcg Inhaler)?2?puff(s)?Inhalation?2 times a day Calcium And Vitamin D Combination (calcium-vitamin D 600 mg-400 intl units oral tablet)?1?tab(s)?By Mouth?2 times a day Cholecalciferol (Vitamin D3 1000 intl units oral capsule)?1?capsule?25?Microgram?By Mouth?Daily Docusate (docusate sodium 100 mg oral capsule)?TAKE 1 CAPSULE BY MOUTH 2 TIMES A DAY NEEDED FOR CONSTIPATION. FILLED AT [employer] (Wheelchair)?See Instructions?small sizewt: 100 lbs ??ht: 5'7 ??lifetime needcopd J44.9 Folic Acid (folic acid 1 mg oral tablet)?1?Milligram?1?tablet?By Mouth?Daily Gabapentin (gabapentin 300 mg oral capsule)?2?capsule?By Mouth?3 times a day HydrOXYzine (hydrOXYzine hydrochloride 10 mg oral tablet)?3?tab(s)?30?Milligram?By Mouth?3 times a day?as needed? NEEDED FOR ANXIETY Lorazepam (LORazepam 0.5 mg oral tablet)?1?tab(s)?0.5?Milligram?By Mouth?2 times a day?as needed?as needed for anxiety Metoprolol (Metoprolol Succinate ER 25 mg oral tablet, extended release)?TAKE 1 TABLET BY MOUTH ONCE DAILY Multivitamin (multivitamin Multiple Vitamins oral capsule)?1?capsule?By Mouth?Daily Pantoprazole (pantoprazole 40 mg oral delayed release tablet)?1?tab(s)?40?Milligram?By Mouth?Daily PredniSONE (predniSONE 5 mg oral tablet)?2?tab(s)?10?Milligram?By Mouth?Daily Tiotropium (Spiriva HandiHaler 18 mcg ??Inhalation Capsule)?18?Microgram?Inhalation?Daily Tramadol (traMADol 50 mg oral tablet)?1?tab(s)?50?Milligram?By Mouth?3 times a day with meals?TAKE 1 TABLET BY MOUTH 3 TIMES A DAY FOR 7 DAYS NEEDED FOR PAIN ? Results Recent Labs BLOOD COUNT & DIFF WBC 12.7 k/mm3 (High)?? 03/18/2023 15:46 RBC 3.82 m/mm3 (Low)?? 03/18/2023 15:46 Hgb 12.5 Gm/dL ()?? 03/18/2023 15:46 Hct 35.4 % (Low)?? 03/18/2023 15:46 MCV 92.7 femtoliters ()?? 03/18/2023 15:46 MCH 32.7 pg ()?? 03/18/2023 15:46 MCHC 35.3 g/dL ()?? 03/18/2023 15:46 Platelet Count 295 k/mm3 ()?? 03/18/2023 15:46 RDW-SD 37.2 femtoliters ()?? 03/18/2023 15:46 MPV 8.8 femtoliters (Low)?? 03/18/2023 15:46 Nucleated RBC (Automated) 0.0 #/100 WBC'S ()?? 03/18/2023 15:46 Abs. NRBC 0.0 k/mm3 ()?? 03/18/2023 15:46 Abs. Neut 12.4 k/mm3 (High)?? 03/18/2023 15:46 Abs. Lymph 0.1 k/mm3 (Low)?? 03/18/2023 15:46 Abs. Martin 0.1 k/mm3 (Low)?? 03/18/2023 15:46 Abs. Eo 0.0 k/mm3 ()?? 03/18/2023 15:46 Abs. Baso 0.0 k/mm3 ()?? 03/18/2023 15:46 Neut % 97.9 % (High)?? 03/18/2023 15:46 Lymph % 0.8 % (Low)?? 03/18/2023 15:46 Martin % 0.8 % (Low)?? 03/18/2023 15:46 Eos % 0.0 % ()?? 03/18/2023 15:46 Baso % 0.1 % ()?? 03/18/2023 15:46 Imm Gran 0.4 % ()?? 03/18/2023 15:46 Abs. Imm Gran 0.1 k/mm3 ()?? 03/18/2023 15:46 ?? CARDIAC Nt-Probnp 3717 pg/mL (High)?? 03/18/2023 15:46 High Sensitivity Troponin (HSTnT) 14 ng/L (High)?? 03/18/2023 18:49 ?? CHEM GENERAL Sodium 123 mmol/L (Low)?? 03/18/2023 15:46 Potassium 4.6 mmol/L ()?? 03/18/2023 15:46 Chloride 83 mmol/L (Low)?? 03/18/2023 15:46 Bicarbonate Level 30 mmol/L (High)?? 03/18/2023 15:46 Anion Gap 10 ()?? 03/18/2023 15:46 Glucose Level 128 mg/dL (High)?? 03/18/2023 15:46 BUN 5 mg/dL (Low)?? 03/18/2023 15:46 Creatinine-Blood 0.4 mg/dL (Low)?? 03/18/2023 15:46 Estimated GFR Creatinine 113 ML/MIN/1.73 M2 ()?? 03/18/2023 15:46 Calcium 10.1 mg/dL ()?? 03/18/2023 15:46 Protein, Total 6.4 Gm/dL ()?? 03/18/2023 15:46 Albumin 4.4 Gm/dL ()?? 03/18/2023 15:46 AG Ratio 2.2 ()?? 03/18/2023 15:46 Alkaline Phosphatase 141 units/L (High)?? 03/18/2023 15:46 AST (SGOT) 25 units/L ()?? 03/18/2023 15:46 ALT (SGPT) 15 units/L ()?? 03/18/2023 15:46 Bilirubin, Total 0.5 mg/dL ()?? 03/18/2023 15:46 ?? HEME OTHER Hold Blue Top SPECIMEN DISCARDED AFTER 4 HOURS. ()?? 03/18/2023 15:46 ?? UA/URINALYSIS Appear/Color, Urine LIGHT YELLOW ()?? 03/18/2023 19:49 Specific [place], Urine 1.008 ()?? 03/18/2023 19:49 pH, Urine 7.0 ()?? 03/18/2023 19:49 Albumin, Urine NEGATIVE ()?? 03/18/2023 19:49 Glucose, Urine NEGATIVE ()?? 03/18/2023 19:49 Ketones, Urine 1+ (Abnormal)?? 03/18/2023 19:49 Bilirubin, Urine NEGATIVE ()?? 03/18/2023 19:49 Hemoglobin, Urine NEGATIVE ()?? 03/18/2023 19:49 Nitrite, Urine NEGATIVE ()?? 03/18/2023 19:49 Leukocyte, Urine NEGATIVE ()?? 03/18/2023 19:49 Urobilinogen NORMAL mg/dL ()?? 03/18/2023 19:49 WBC's, Urine <1 /HPF ()?? 03/18/2023 19:49 RBC's, Urine NONE SEEN /HPF ()?? 03/18/2023 19:49 Squamous Epith <1 /HPF ()?? 03/18/2023 19:49 Hold Urine Culture Testing available 48 hours from time of collection. ()?? 03/18/2023 19:49 ?? VIROLOGY COVID-19 by RT-PCR NEGATIVE ()?? 03/18/2023 18:12 ? Coagulation Profile?? No qualifying data available. ?? US Heart * Event Display: Echocardiogram - Complete Authored Date: [id number] Transthoracic Echocardiography Report (TTE) Patient Demographics Patient Name KATERINE NICOLE Date of Study 03/19/2023 Corporate Gender Female Facility Race Ethnicity Date of 1960 Height: 66.93 inches Age 62 year(s) Weight: 92.59 pounds Accession Number [id number] BSA: 1.46 m2 Room Number W473 BMI: 14.53 kg/m2 Referring Physician Franklin Sutton MD Interpreting Physician Shubham Rizzo MD [address] Judge Raven Nash Shortness of breath. Clinical History Hyperlipidemia. COPD. Atrial flutter. Study Data Type of Study TTE procedure:Echo Complete-Doppler, Colorflow, M-Mode. Study Date03/19/2023 Start Time: 10:28 AM Study Location: [facility] Adult Echo Study Status: Echo lab Patient Status: Routine Technical Quality: Adequate Blood Pressure:92/56 mmHg EKG: Atrial fibrillation HR: 100 bpm 2D Measurements LV Diastolic Dimension: 5 cm LV Systolic Dimension: 3.9 cm LV Septum Diastolic: 1 cm LV PW Diastolic: 0.8 cm AO Root Dimension: 2.8 cm LA ESV (BP):70.22 ml LVOT Stroke Volume: 47.05 ml LA ESV Index: 48 ml/m2 Stroke Volume Index32.23 ml/m2 LVOT: 1.8 cm Cardiac Index:3.23 l/min/m2 Ascending Aorta:2.2 cm Doppler Measurements AV Peak Velocity: 182 cm/s MV Peak E-Wave: 187 cm/s AV Peak Gradient: 13.25 mmHg LVOT Peak Velocity: 117 cm/s LVOT VTI18.5 cm AV P1/2t: 216 msec PV Peak Velocity: 111 cm/s PV Peak Gradient: 4.93 mmHg E' Septal Velocity: 11.3 cm/s E' Lateral Velocity: 11.7 cm/s E/Med E':16.08248 E/Lat E':15.86217 Cardiac Anatomy Left Ventricle/Interventricular Septum The left ventricular size is normal. Left ventricular wall thickness is normal. The LV systolic function is mildly reduced . The left ventricular ejection fraction is 40-45 %. There is diffuse hypokinesis without regional wall motion abnormalities. Unable to assess diastolic function due to E/A fusion . Left Atrium/Interatrial Septum The left atrium is moderately dilated. Aortic Valve The aortic valve is poorly visualized. There is no evidence of aortic stenosis. There is mild to moderate aortic regurgitation. Mitral Valve There is mild mitral annular calcification. The mitral valve chordal apparatus is mildly thickened. The mitral valve appears mildly thickened. There is trace to mild mitral regurgitation. There is no significant mitral stenosis. Aorta The ascending aorta and aortic root are normal in size. Right Ventricle The right ventricle is normal in size. Right ventricular systolic function appears preserved. Right Atrium The right atrium is normal in size. Pulmonic Valve The pulmonic valve is poorly visualized. The pulmonic valve is functionally normal. Tricuspid Valve The tricuspid valve appears normal . There is trace tricuspid valve regurgitation. Pumonary Artery An accurate pulmonary artery pressure could not be obtained. Venous Structures The inferior vena cava appears normal. Pericardium/Extracardiac There is no pericardial effusion. Summary The left ventricular size is normal. [...] pulmonary artery pressure could not be obtained. Comparison Comparison is made to the study of November 03, 2021. Left ventricular systolic function is unchanged since previous study. Worsened aortic regurgitation since previous study. Signature * Event Display: Echocardiogram - Complete Authored Date: Cardiology * Event Display: Cardiac Rhythm Strips Authored Date: Hospital Progress note * Cj ORTIZ, Ramy Gonzales: MODIFY Cj ORTIZ, Ramy Gonzlaes: MODIFY, SIGN Ramy Corona MD: SIGN, SIGN, VERIFY Event Display: Progress Note Hospital Authored Date: Patient: KATERINE NICOLE Age: 62 years Sex: Female : 1960 Associated Diagnoses: None Author: An [facility] Progress Note Interval History Resting in bed, reports no acute complaints at this time. Review of Systems Review of Systems Respiratory: no shortness of breath. Cardiovascular: no peripheral edema, no chest pain. Gastrointestinal: no abdominal pain, no nausea, no vomiting. Physical Examination Vital Signs Vitals : VITALS 03/22/2023 7:00 EDT Temperature 97.8 DegF Temperature Route Oral Pulse Rate 87 bpm Respiratory Rate 18 br/min Systolic Blood Pressure 135 mm Hg Diastolic Blood Pressure 65 mm Hg Blood pressure sites Arm, right Pulse Pressure 70 mm Hg Oxygen Saturation 100 % Liters per Minute 6 L/min Mode of Delivery (Oxygen) Nasal CPAP . General Appearance NAD. HEENT Moist mucous membranes. Respiratory Lungs: CTA, On oxygen. Cardiac Rhythms: RRR. Abdomen/GI Abdomen: soft, non-tender. Extremities No edema. Neurologic Alert & oriented x 3 . Results Review 7 Day Results Results Laboratory 03/22/2023 7:24 EDT WBC 12.0 k/mm3 H RBC 3.44 m/mm3 L Hgb 11.4 Gm/dL L Hct 33.6 % L MCV 97.7 femtoliters MCH 33.1 pg MCHC 33.9 g/dL Platelet Count 297 k/mm3 RDW-SD 40.4 femtoliters MPV 9.2 femtoliters L Nucleated RBC (Automated) 0.0 #/100 WBC'S Abs. NRBC 0.0 k/mm3 Sodium 131 mmol/L L Potassium 4.2 mmol/L Chloride 87 mmol/L L Bicarbonate Level 39 mmol/L H Anion Gap 5 Glucose Level 87 mg/dL BUN 20 mg/dL Creatinine-Blood 0.4 mg/dL L Estimated GFR Creatinine 111 ML/MIN/1.73 M2 Calcium 9.4 mg/dL Impression and Plan Katerine Nicole is a 62 y/o F w/ PMH significant for COPD on home oxygen at 6 lpm, a flutter, CHF (LVEF 40-45% 03/19/23) who presented to [facility] on 03/18/23 for SOB. In the ED, CXR showed no acute abnormalities, and pt was admitted for COPD exacerbation. Nephrology was consulted for hyponatremia. 1. Hypoosmolar Hyponatremia Na 131 SOsm 263, UOsm 295, Christopher 34 (03/18) Hyponatremia likely hypovolemic hyponatremia as pt reports poor PO intake, and Christopher of 34 supports this. In addition, pt is currently on Lasix and was given x1 dose of Lasix which could have contributed to her hypovolemic state. SIADH is on the differential as well given her history of COPD (as SIADH is common lung diseases). 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 Plan: - Continue Urea 15 gm BID - Encourage increased solute intake (protein) - 1.5 L fluid restriction - Monitor electrolytes - Do not correct Na at a rate greater than 6-8 mEq/L in a 24 hour period Thank you for the courtesy of this consult, RTANE will continue monitoring the patient along with you please do not hesitate to call us with any further questions An Webb PA-C [facility] [address] , [address] Available by [facility] * Cj ORTIZ, Ramy P: PERFORM Event Display: Progress Note Hospital Authored Date: I have seen and evaluated this patient. I have discussed the case and its management with the PA and agree with the findings and plan as documented in the PA's note. * Cinda Cisse: VERIFY, PERFORM, SIGN Event Display: Progress Note Hospital Authored Date: [id number] Patient: KATERINE NICOLE Age: 62 years Sex: Female : 1960 Associated Diagnoses: None Author: Cinda Cisse Findings Problem Related to Alteration in Respiratory Function (new) : Alteration in Respiratory Function/new 03/22/2023 4:00 EDT Alteration in Resp Status Related to COPD Goals & Outcomes, Respiratory Pt will maintain/resume baseline physical assessment, Pt will maintain adequate nutritional intake, Pt will maintain/resume normal fluid/electrolyte balance, Pt willdemonstrate proper technique w/self care procedures Interventions, Respiratory Assess for and report S&S of respiratory distress, Position for comfort & optimal oxygenation BH Goals/Interventions, Respiratory Yes Respiratory, Problem Start 03/19/2023 4:56 Reviewed Plan with, Respiratory Patient Patient Progression, Respiratory Patient progressing according to plan . Nursing Data Vital Signs : VITAL SIGNS SECTION 03/22/2023 3:19 EDT Temperature 98.2 DegF Temperature Route Oral Pulse Rate 82 bpm Respiratory Rate 18 br/min Systolic Blood Pressure 130 mm Hg Diastolic Blood Pressure 65 mm Hg Blood pressure sites Arm, right Pulse Pressure 65 mm Hg Oxygen Saturation 100 % Liters per Minute 6 L/min Mode of Delivery (Oxygen) Nasal cannula 03/22/2023 2:29 EDT Temperature 98.4 DegF Temperature Route Oral Pulse Rate 84 bpm Respiratory Rate 18 br/min Systolic Blood Pressure 133 mm Hg Diastolic Blood Pressure 62 mm Hg Blood pressure sites Arm, right Mean Arterial Pressure 86 mm Hg Pulse Pressure 71 mm Hg Oxygen Saturation 100 % Liters per Minute 6 L/min Mode of Delivery (Oxygen) Nasal cannula 03/21/2023 23:16 EDT Temperature 97.8 DegF Temperature Route Oral Pulse Rate 92 bpm H Respiratory Rate 18 br/min Systolic Blood Pressure 128 mm Hg Diastolic Blood Pressure 59 mm Hg Blood pressure sites Arm, right Mean Arterial Pressure 82 mm Hg Pulse Pressure 69 mm Hg Oxygen Saturation 100 % Liters per Minute 6 L/min Mode of Delivery (Oxygen) Nasal cannula . Evaluation Patient A&O x4. VSS. Crackles in lung bases, on 6 L NC. Patient is on tele with NSR in the 's. No edema noted on assessment. Chronic lower back pain 06/10. PRN and scheduled meds administered with positive result. Purewick in place draining clear yellow urine, and commode at bedside. Patient is resting comfortably. Call hudson is within reach and bed is in lowest position. Will continue with pu rposeful rounding. Anticipated discharge 03/22. See CIS for further information.. * Celso Lawson MD: SIGN, PERFORM, VERIFY Event Display: Progress Note Hospital Authored Date: Patient: KATERINE NICOLE Age: 62 years Sex: Female : 1960 Associated Diagnoses: None Author: Celso Lawson MD Overnight Events & Current Issues Seen and examined, events noted Physical Examination Vital Signs Vitals : VITALS 03/21/2023 15:00 EDT Temperature 97.2 DegF Temperature Route Oral Pulse Rate 110 bpm H Respiratory Rate 18 br/min Systolic Blood Pressure 145 mm Hg H Diastolic Blood Pressure 77 mm Hg Blood pressure sites Arm, right Pulse Pressure 68 mm Hg Oxygen Saturation 100 % Liters per Minute 6 L/min Mode of Delivery (Oxygen) Nasal cannula . Weight : Weight lb/oz 03/19/2023 1:42 EDT Weight lb/oz 92 lb 9 oz 03/19/2023 1:31 EDT Weight lb/oz 92 lb 9 oz . BMI : Body Mass Index 03/19/2023 1:42 EDT Body Mass Index 14.53 kg/m2 L 03/19/2023 1:31 EDT Body Mass Index 14.53 kg/m2 L . Results Review General results Today's results 03/21/2023 6:50 EDT WBC 16.6 k/mm3 H RBC 3.49 m/mm3 L Hgb 11.5 Gm/dL L Hct 33.6 % L MCV 96.3 femtoliters MCH 33.0 pg MCHC 34.2 g/dL Platelet Count 284 k/mm3 RDW-SD 40.6 femtoliters MPV 9.0 femtoliters L Nucleated RBC (Automated) 0.0 #/100 WBC'S Abs. NRBC 0.0 k/mm3 Sodium 128 mmol/L L Potassium 5.0 mmol/L Chloride 86 mmol/L L Bicarbonate Level 32 mmol/L H Anion Gap 10 Glucose Level 80 mg/dL BUN 23 mg/dL Creatinine-Blood 0.4 mg/dL L Estimated GFR Creatinine 112 ML/MIN/1.73 M2 Calcium 9.4 mg/dL Phosphorus 2.3 mg/dL L Magnesium 1.7 mg/dL TSH 1.68 uIU/mL Most recent results Discrete results only : ALL SERVICE SECTIONS 03/20/2023 5:51 EDT Sodium 127 mmol/L L 03/19/2023 17:37 EDT Sodium 127 mmol/L L 03/19/2023 6:09 EDT Sodium 126 mmol/L L 03/19/2023 1:36 EDT Sodium 124 mmol/L L 03/18/2023 22:31 EDT Sodium 128 mmol/L L 03/18/2023 15:46 EDT Sodium 123 mmol/L L Impression and Plan COMPREHENSIVE PLAN Katerine Nicole is a 62 y/o F w/ PMH significant for COPD on home oxygen at 6 lpm, a flutter, CHF (LVEF 40-45% 03/19/23) who presented to [facility] on 03/18/23 for SOB. In the ED, CXR showed no acute abnormalities, and pt was admitted for COPD exacerbation. Nephrology was consulted for hyponatremia. 1. Hypoosmolar Hyponatremia Na 128 Chronic low SNa and suspect mixed picture of low solute intake and inapp ADH SIADH. REC: cont Urea and encourage incr solute intake ( protein); cont 1500 po fluid restirction, will recheck TSH ( 04/2022 was normal) Note * Hiwto Bishop RN: PERFORM Event Display: Discharge/Transfer Note Hospital Authored Date: [id number] Nursing Discharge Note Entered On: 03/22/2023 16:10 EDT Performed On: 03/22/2023 16:10 EDT by Hiwot Bishop RN Nursing Discharge Note 2 Discharge Time : 03/22/2023 16:00 EDT Discharge Level of Care at Discharge : Home/Penitentiary/Foster Care Patient Left Unit Via : Wheelchair Patient Accompanied Off Unit with : Responsible adult DC Instructions Provided & Signed by Pt : Yes Patient Understands D/C Instructions : Yes Verbalized Understanding of D/C Plan By : Patient Patient Instructions Discharge Signed : Yes Did Pt have Specialty Bed or Wound Vac : No Hiwot Bishop RN - 03/22/2023 16:10 EDT * Blake ORTIZ, Cheryl: PERFORM Event Display: Discharge/Transfer Note Hospital Authored Date: [id number] Patient: ??KATERINE NICOLE ? Age:??62 Years?Sex:??Female?:??1960?? Patient Information Discharge Location: 4 Primary Care Physician: Graciela Nunez MD Admit Date/Time: 03/18/23 17:31 Discharge Date:??03/22/2023 13:21 Discharge Disposition Discharge Disposition: Home with Home Health Discharge Diagnosis COPD exacerbation (J44.1) Acute on chronic systolic congestive heart failure (I50.23) Hyponatremia (E87.1) Chronic respiratory failure with hypoxia and hypercapnia (J96.11) Paroxysmal atrial flutter (I48.92) Peripheral neuropathy (G62.9) ?? _ Discharge Medications Albuterol (Ventolin HFA [...] A DAY NEEDED FOR CONSTIPATION. FILLED AT [employer] Equipment (Wheelchair)?See Instructions?small sizewt: 100 lbs ??ht: 5'7 ??lifetime needcopd J44.9 Folic Acid (folic acid 1 mg oral tablet)?1?Milligram?1?tablet?By Mouth?Daily Gabapentin (gabapentin 300 mg oral capsule)?2?capsule?By Mouth?3 times a day HydrOXYzine (hydrOXYzine hydrochloride 10 mg oral tablet)?3?tab(s)?30?Milligram?By Mouth?3 times a day?as needed? NEEDED FOR ANXIETY Lorazepam (LORazepam 0.5 mg oral tablet)?1?tab(s)?0.5?Milligram?By Mouth?2 times a day?as needed?as needed for anxiety?for 5?Days Metoprolol (Metoprolol Succinate ER 25 mg [...] for reconstitution)?15?gram?By Mouth?2 times a day?for 3?doses/times Medications Started Urea 15gm BID for a total of 3 doses Lorazepam 0.5 mg twice a day as needed for anxiety. Medications Discontinued Clonazepam??as patient states it is not helping her anxiety. Doses Changed Prednisone taper 30 mg daily for 3 days and then 20 mg daily for 3 days and then??10 mg daily untilyou see your primary care provider. Allergies Allergies ?(Active and Proposed Allergies Only) Lyrica? (Severity: Unknown severity, Onset: Unknown) ?Reactions: increased depression morphine? (Severity: Unknown severity, Onset: Unknown) ?Reactions: respiratory depression codeine? (Severity: Moderate, Onset: Unknown) ?Reactions: Nausea, Rash sulfADIAZINE? (Severity: Moderate, Onset: Unknown) ?Reactions: Rash ? PCP Follow-Up/Heads-Up Follow up clinically post hospitalization Needs follow up regarding the anxiety medications Future Appointments Wednesday 11:40 AM EDT ?? With: Graciela Nunez MD Where: [facility] [address] [place] [address]- Status: Pending Hospital Course 62 years old female with past medical history of COPD on home oxygen at 6 L, paroxysmal??a flutter,??chronic systolic congestive heart failure presented to ER with a chief complaint of shortness of breath.?? Management CHF and COPD exacerbation ?? COPD exacerbation Patient presented with worsening shortness of breath along with productive cough,??on 6 L nasal cannula oxygen at home In ER, patient was given DuoNebs, 125 mg Solu-Medrol On Physical exam??on admission, diffuse bilateral expiratory wheezing,??currently on 6 L saturatingabove 94% X-ray was done that did not show any evidence of pneumonia ?? Transitioned to p.o. steroid??40 mg daily, reduce 10 mg??every 3 days DuoNeb 4 times a day scheduled, every 4 hours as needed Continue home??azithromycin 500 mg 3 times a week Continue budesonide??every twice daily Incentive??spirometry Target oxygen??88 to??92% Closely monitor respiratory status ?? Acute on chronic systolic congestive heart failure- improved Shortness of breath??with lower extremity swelling, small episode about 2 weeks ago that resolved after taking 2 tablets of Lasix Physical exam: Bilateral wheezing, 2+ pitting edema proBNP 3717 Echocardiogram in 2021 showed EF of around 40% CXR Did not show any evidence of pulm edema Bedside??ultrasound showed reduced??RV contractility, focal B-lines in left lung ?? 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 Hypo osmolar Hyponatremia Etiology: Likely multifactorial Sodium level??anjelica at 123; today 131 Patient reported decreased p.o. intake, also has lower extremities on exam On previous admissions, labs were consistent with SIADH and patient was also started on urea powderon 1 over admission Currently patient is asymptomatic Due to underlying CHF,??cannot give sodium tablets??or IV fluid As per nephrology we will continue urea 15 g tonight and tomorrow additional doses tomorrow. Repeat TSH with normal meds. Continue fluid restriction. ?? Chronic respiratory failure with hypoxia and hypercapnia Patient is on 6 L oxygen at home Currently, patient saturating well 94% on 6 L baseline oxygen, not on any NIV Also labs showed stable CO2 Continue to monitor??respiratory status ?? Paroxysmal atrial flutter Patient had history of a flutter based on previous??records, however patient not on any anticoagulation Currently patient??is in sinus tachycardia with heart rate in 100-110s EKG was done that shows sinus tach with??premature atrial complexes,??left posterior fascicular block Resume home medication metoprolol 25 mg daily, IV metoprolol as needed Will Monitor on telemetry ?? Peripheral neuropathy Resume home medication gabapentin 600 mg tid ?? Chronic back pain: Resume home medication ?? Patient seen and examined bedside. States that she feels close to her baseline. Chart review also noted that patient has a wheelchair at home. Has significant home services set up already at home. Patient did not want clonazepam as he did not??alleviate her symptoms. States that the lorazepam which was utilized. ??Helped her.?? Encouraged her to discuss the same with her primary care provider. ??Provided a prescription for lorazepam. Educated her about the urea for her sodium and to take 3 doses??with 1 dose tonight and 2 doses tomorrow. ?? Gen: AAO*3; RS: Barrel chest, supplemental O2 via nasal cannula 6 L.; CVS: regular; Abd: Soft Non tender, non distended; Neuro AAO*3; muscle wasting noted ?? Patient has end-stage lung disease with 6 L nasal cannula at baseline for COPD.?? Advised strict smoking cessation. ??Was smoking prior to arrival to the hospital. Prognosis is guarded. ??High risk for rehospitalization. Objective Measurements?? Height: 170 cm (03/22/23) Weight: 42 kg (03/19/23) Dry Weight: 42 kg (03/19/23) Body Mass Index:??14.53 kg/m2??Low (03/19/23) ? Vital Signs?? Temperature: 97.8 DegF (03/22/23 07:00:00) Temperature Route: Oral (03/22/23 07:00:00) Pulse Rate: 87 bpm (03/22/23 08:41:00) Respiratory Rate: 18 br/min (03/22/23 08:41:00) Systolic Blood Pressure: 135 mm Hg (03/22/23 08:41:00) Diastolic Blood Pressure: 65 mm Hg (03/22/23 08:41:00) Blood pressure sites: Arm, right (03/22/23 07:00:00) Mean Arterial Pressure: 86 mm Hg (03/22/23 02:29:00) Pulse Pressure: 70 mm Hg (03/22/23 07:00:00) Oxygen Saturation: 100 % (03/22/23 07:00:00) Liters per Minute: 6 L/min (03/22/23 07:00:00) Mode of Delivery (Oxygen): Nasal CPAP (03/22/23 07:00:00) Early Warning Score: 3 (03/22/23 09:16:51) ? Consultants Celso Lawson Pending Results Blood Culture ordered on 03/18/2023 Blood Culture #2 ordered on 03/18/2023 Follow-Up Appointments Added Follow Up ?Time Frame ?Comments Graciela Nunez?06/02/2023 11:40 Post Discharge Care Diet: Cardiac diet Activity: Ambulate with assistance ??3 times a day ??unless otherwise specified Wound Care: - Code Status: ?? Full Resuscitation Condition: Fair Prognosis: Fair Discharge ?03/22/23 13:21:00 EDT Discharge Prescriptions ?ePrescribed, ??03/22/23 13:21:00 EDT Home Health Face to Face *Denotes mandatory balderrama ?? *I certify that this patient is under my care and that I or an allowed non- physician working with me had a face to face encounter with the patient on this date:??03/22/2023 13:24 ?? *The encounter with the patient was in whole, or in part, for the following medical condition, which is the primary diagnosis(es) for home health care:??COPD exacerbation (J44.1) Acute on chronic systolic congestive heart failure (I50.23) Hyponatremia (E87.1) Chronic respiratory failure with hypoxia and hypercapnia (J96.11) Paroxysmal atrial flutter (I48.92) Peripheral neuropathy (G62.9) ? *Select the indications for the discipline/s that are being arranged for this patient. Nursing (select all that apply): [_] None [x] Medication management (reconciliation, teaching)?? [x] Chronic disease management?? [_] Wound care and treatment?? [x] Home safety evaluation [_] Administer SQ/IM/IV medications?? [_] Cath care?? [_] Drain care?? [_] Trach or GT care?? Other _ Occupation Therapy (select all that apply): [_] None [_] ADL Management [_] Fall prevention training [_] Energy conservation [_] Cognitive training Other _ Physical Therapy (select all that apply): [_] None [x] Functional mobility training [x] Home exercise program to strengthen [x] Increase ROM?? [x] Falls prevention training [_] Home maintenance program for chronic disease Other _ Speech Therapy (select all that apply): [_] None [_] Swallow evaluation and training [_] Speech and language training [_] Cognitive training to process, organize, and/or recall information Other _ ? *Homebound due to (select all that apply): [x] Inability to leave home without assistance/supervision [x] Inability to ambulate without assistance [_] Pain [x] Decreased strength and endurance [_] Unsteady gait [_] Severe SOB and fatigue [_] Impaired transfers [_] Inability to negotiate stairs [_] Limited weight bearing [_] Mental status change? *Physician Signature:??Cheryl Lozano ?? *By signing this, I certify that I have personally evaluated the patient and agree with the findings and recommendations as documented above. ?? Resume services. ?? 45??minutes spent on discharge * Hiwot Bishop RN: PERFORM Event Display: Patient Education/Instruction Authored Date: [id number] Inpatient Adult Discharge Instructions [place] [id number] Name: KATERINE NICOLE : 1960 Visit: 03/18/2023 17:31:00 Current Date: 03/22/2023 13:43 Account: [id number] Inpatient Adult Discharge Instructions We would like [...] and their families. Surveys are administered by [employer] ?? If further treatment with your primary care physician or another doctor is recommended, it is important for you to keep the appointment. Call your primary care physician or return to the Emergency Department immediately if your condition worsens, fails to improve, or new symptoms develop. If you need to find a doctor, you can call [facility] [employer] for a referral at [phone] or toll free at [phone] ([phone]) or log in to [email or web address] ?? You can view and manage your care through the patient portal or by using a health care noemi of your choosing. August is a website that allows you to securely view your medical information including your hospital discharge summary, office visit summaries, medications and follow-up visits. You can also request appointments, renew medications, and request access to your medical information using a health care noemi of your choosing, or just ask a question. You can enroll at [email or web address] or register during your next office visit. You have been discharged from [facility], Patient Care Unit: W4. If you have any questions regarding these instructions after you leave, please call us and we will be happy to assist you. [facility] Your Care Team Attending Physician Cheryl Lozano MD Consulting Providers Ramy Corona MD Discharging Providers Cheryl Lozano MD Reason for Your Visit SOB Your Diagnosis COPD exacerbation Acute on chronic systolic congestive heart failure Hyponatremia Chronic respiratory failure with hypoxia and hypercapnia Paroxysmal atrial flutter Peripheral neuropathy Tests Performed Below is a partial list of the tests performed during your hospitalization. You may have had other tests and procedures not included in this list. Please discuss all test results with your provider. Basic Metabolic Panel CBC CBC w/ Differential Comprehensive Metabolic Panel COVID-19 (Novel Coronavirus), Rapid PCR Electrolytes HOLD BLUE TUBE Ionized Calcium Magnesium Level Osmolality Phosphorus Level PROBNP Troponin T, High Sensitivity TSH Uric Acid Urinalysis w/hold for Urine Culture Urine Osmolality Urine Sodium XR Chest Portable Primary Care Provider Graciela Nunez MD Advance Directive . Discharge Vitals Temperature: 97.8 DegF Height: 170 cm Pulse Rate: 87 bpm Weight: 42 kg Respiratory Rate: 18 br/min Body Mass Index:??14.53 kg/m2??Low Systolic Blood Pressure: 135 mm Hg Body surface area: 1.41 Diastolic Blood Pressure: 65 mm Hg ?? Oxygen Saturation: 100 % ?? Studies Pending All tests and labs ordered during this hospital stay have been completed unless listed below. Please discuss all pending results with your provider listed above in these instructions. ?? Blood Culture Blood Culture #2 Urinalysis w/hold for Urine Culture What to do next Instructions From Your Doctor Discharge Orders Diet:??Cardiac diet Activity:??Ambulate with assistance 3 times a day unless otherwise specified Wound Care:??- Code Status:?? Full Resuscitation Condition:??Fair Prognosis:??Fair Scheduled Follow-Up Appointments Wednesday 11:40 AM EDT ?? With: Graciela Nunez MD Where: [facility] [address] [place] [id number] Status: Pending You Need to Schedule the Following Appointments Follow Up with??Graciela Nunez When:??06/02/2023 11:40 AM EDT Where: [address] [place] [address]- Business (1) Discharge Medications KATERINE NICOLE :1960 Visit Date:03/18/2023 Medications: Please continue your medications until treatment is completed or stopped by your provider. Medications not listed below should be discontinued. Discuss any questions related to medications with your provider. What How Much When Why Instructions Next Dose New urea powder (urea 15 g oral powder for reconstitution) 15 gram Oral Twice a day Duration: 3 doses/times Pickup at [facility] 03/22 Changed Docusate (docusate sodium 100 mg oral capsule) TAKE 1 CAPSULE BY MOUTH 2 TIMES A DAY NEEDED FOR CONSTIPATION. FILLED AT [facility] ?? As needed Changed Gabapentin (gabapentin 300 mg oral capsule) 2 capsule Oral 3 times a day Tonight 03/22 Changed Lorazepam (LORazepam 0.5 mg oral tablet) 1 tab(s) Oral Twice a day as needed for as needed for anxiety Duration: 5 Days Pickup at [facility] 3 As needed Changed Metoprolol (Metoprolol Succinate ER 25 mg oral tablet, extended release) 1 tab(s) Oral Daily TAKE 1 TABLET BY MOUTH ONCE DAILY ?? Tomorrow 03/23 Changed PredniSONE (predniSONE 10 mg oral tablet) See instructions 30 mg daily for 3 days and then 20 mg daily for 3 days and then continue 10 mg daily. ?? Pickup at [facility] 3 Tomorrow 03/23 Unchanged Albuterol (Ventolin HFA 108 mcg/ inh inhalation aerosol with adapter) 2 puff(s) Inhalation 4 times a day as needed for for wheezing Emphysema/COPD As needed Unchanged Aspirin (aspirin 81 mg oral delayed release tablet) 1 tab(s) Oral Daily Tomorrow 03/23 Unchanged Atorvastatin (atorvastatin 20 mg oral tablet) TAKE 1 TABLET BY MOUTH ONCE DAILY ?? Tonight 03/22 Unchanged Azithromycin (azithromycin 500 mg oral tablet) 1 tab(s) Oral Wednesday, Wednesday and Wednesday Per instructions Unchanged Baclofen (baclofen 10 mg oral tablet) 1 tab(s) Oral Twice a day as needed for Pain , Moderate Duration: 14 Days As needed Unchanged Budesonide-Formoterol (Symbicort 160mcg/ 4.5mcg Inhaler) 2 puff(s) Inhalation Twice a day Ton03/22 Unchanged Cholecalciferol (Vitamin D3 1000 intl units oral capsule) 1 capsule Oral Daily Tomorrow 03/23 Unchanged Folic Acid (folic acid 1 mg oral tablet) 1 tab(s) Oral Daily Tomorrow 03/23 Unchanged HydrOXYzine (hydrOXYzine hydrochloride 10 mg oral tablet) 3 tab(s) Oral 3 times a day as needed for NEEDED FOR ANXIETY Ton03/22 Unchanged Multivitamin (multivitamin Multiple Vitamins oral capsule) 1 capsule Oral Daily Tomorrow 03/23 Unchanged Pantoprazole (pantoprazole 40 mg oral delayed release tablet) 1 tab(s) Oral Daily Tomorrow 03/23 Unchanged Tiotropium (Spiriva HandiHaler 18 mcg Inhalation Capsule) 18 Microgram Inhalation Daily Tomorrow 03/23 Unchanged Tramadol (traMADol 50 mg oral tablet) 1 tab(s) Oral 3 times a day with meals TAKE 1 TABLET BY MOUTH 3 TIMES A DAY FOR 7 DAYS NEEDED FOR PAIN ?? As ordered [facility]: [address] [place], [place] [id number] [phone] ?? What How Much When Comments Stop Taking Acetaminophen (Tylenol 8 HR Arthritis Pain 650 mg oral tablet, extended release) 1 tab(s) Oral Every 8 hours as needed for Pain , Moderate Stop Taking Biotin (Hair, Skin & Nails 5 mg oral capsule) 1 capsule Oral Daily Stop Taking BusPIRone (busPIRone 10 mg oral tablet) See instructions BEING TAPERED OFF, DECREASE BY 10MG EVERY DAY UNTIL DISCONTINUATION ?? Stop Taking Calcium And Vitamin D Combination (calcium-vitamin D 600 mg-400 intl units oral tablet) 1 tab(s) Oral Twice a day Stop Taking Clonazepam (clonazePAM 1 mg oral tablet) See instructions take 1/ 2 tab by daily ?? Stop Taking Fluticasone Nasal (Flonase 50 mcg/ inh nasal spray) 1 spray(s) Nares, Both Daily in the morning Stop Taking Lactulose (lactulose 10 gm/ 15 ml oral syrup) 15 Milliliter Oral Every 72 hours as needed for as needed for constipation Stop Taking Nitroglycerin (nitroglycerin 0.3 mg sublingual tablet) 1 tab(s) Sublingual Every 5 minutes as needed for as needed for chest pain not to exceed 3 doses/ 15 min--if pain persists, seek medical attention ?? Stop Taking Senna (Senna 8.6 mg oral tablet) 2 tab(s) Oral Daily at Bedtime as needed for for constipation Test Results Below is a partial list of the most recent Laboratory test results done prior to this discharge. You may have had other tests and procedures not included in this list. Please discuss all test resultswith your provider. Est Creatinine Clearance - 94.21 mL/min (03/21/2023) Basic Metabolic Panel (03/22/2023) ???Sodium - 131 mmol/L???Potassium - 4.2 mmol/L???Chloride - 87 mmol/L???Bicarbonate Level - 39 mmol/L???Anion Gap - 5???Glucose Level - 87 mg/dL???BUN - 20 mg/dL???Creatinine-Blood - 0.4 mg/dL???Estimated GFR Creatinine - 111 ML/MIN/1.73 M2???Calcium - 9.4 mg/dL CBC (03/22/2023) ???WBC - 12.0 k/mm3???RBC - 3.44 m/mm3???Hgb - 11.4 Gm/dL???Hct - 33.6 %???MCV - 97.7 femtoliters???MCH - 33.1 pg???MCHC - 33.9 g/dL???Platelet Count - 297 k/mm3???RDW-SD - 40.4 femtoliters???MPV - 9.2 femtoliters???Nucleated RBC (Automated) - 0.0 #/100 WBC'S???Abs. NRBC - 0.0 k/mm3 CBC w/ Differential (03/18/2023) ???WBC - 12.7 k/mm3???RBC - 3.82 m/mm3???Hgb - 12.5 Gm/dL???Hct - 35.4 %???MCV - 92.7 femtoliters???MCH - 32.7 pg???MCHC - 35.3 g/dL???Platelet Count - 295 k/mm3???RDW-SD - 37.2 femtoliters???MPV - 8.8 femtoliters???Nucleated RBC (Automated) - 0.0 #/100 WBC'S???Abs. NRBC - 0.0 k/mm3???Abs. Neut - 12.4 k/mm3???Abs. Lymph - 0.1 k/mm3???Abs. Martin - 0.1 k/mm3???Abs. Eo - 0.0 k/mm3???Abs. Baso - 0.0 k/mm3???Neut % - 97.9 %???Lymph % - 0.8 %???Martin % - 0.8 %???Eos % - 0.0 %???Baso % - 0.1 %???Imm Gran - 0.4 %???Abs. Imm Gran - 0.1 k/mm3 Comprehensive Metabolic Panel (03/18/2023) ???Sodium - 123 mmol/L???Potassium - 4.6 mmol/L???Chloride - 83 mmol/L???Bicarbonate Level - 30 mmol/L???Anion Gap - 10???Glucose Level - 128 mg/dL???BUN - 5 mg/dL???Creatinine-Blood - 0.4 mg/dL???Estimated GFR Creatinine - 113 ML/MIN/1.73 M2???Calcium - 10.1 mg/dL???Protein, Total - 6.4 Gm/dL???Alb umin - 4.4 Gm/dL???AG Ratio - 2.2???Alkaline Phosphatase - 141 units/L???AST (SGOT) - 25 units/L???ALT (SGPT) - 15 units/L???Bilirubin, Total - 0.5 mg/dL COVID-19 (Novel Coronavirus), Rapid PCR (03/18/2023) ???COVID-19 by RT-PCR - NEGATIVE Electrolytes (03/19/2023) ???Sodium - 127 mmol/L???Potassium - 4.9 mmol/L???Chloride - 86 mmol/L???Bicarbonate Level - 33 mmol/L???Anion Gap - 8 HOLD BLUE TUBE (03/18/2023) ???Hold Blue Top - SPECIMEN DISCARDED AFTER 4 HOURS. Ionized Calcium (03/20/2023) ???Calcium, Ionized pH Corrected - 1.24 mmol/L Magnesium Level (03/21/2023) ???Magnesium - 1.7 mg/dL Osmolality (03/18/2023) ???Osmolality - 263 mOs/kg Phosphorus Level (03/21/2023) ???Phosphorus - 2.3 mg/dL PROBNP (03/18/2023) ???Nt-Probnp - 3717 pg/mL Troponin T, High Sensitivity (03/18/2023) ???High Sensitivity Troponin (HSTnT) - 14 ng/L TSH (03/21/2023) ???TSH - 1.68 uIU/mL Uric Acid (03/18/2023) ???Uric Acid - 1.7 mg/dL Urinalysis w/hold for Urine Culture (03/18/2023) ???Appear/Color, Urine - LIGHT YELLOW???Specific [place], Urine - 1.008???pH, Urine - 7.0???Albumin, Urine - NEGATIVE???Glucose, Urine - NEGATIVE???Ketones, Urine - 1+???Bilirubin, Urine - NEGATIVE???Hemoglobin, Urine - NEGATIVE???Nitrite, Urine - NEGATIVE???Leukocyte, Urine - NEGATIVE???Urobilinoge n - NORMAL? ?WBC's, Urine - <1 /HPF? ?RBC's, Urine - NONE SEEN? ?Squamous Epith - <1 /HPF? ?Hold Urine Culture - Testing available 48 hours from time of collection. Urine Osmolality (03/18/2023) ???Osmolality, Urine Random - 295 mOsm/kg Urine Sodium (03/18/2023) ???Sodium, Urine Random - 34 mmol/L Allergies (NKA means No Known Allergies) [...] Belongings I fully understand and agree that [facility] accepts no responsibility for all my personal [...] to send valuables and belongings home. ?? Date for Pt to Sign Valuables/Belongings: 03/19/23 02:15:00 ?? Other Discharge Information ? Pulmonary Rehab [...] are strongly encouraged to quit. Please call [facility] at [phone] or [phone] ([phone]) or log in to [email or web address] for referrals to smoking cessation programs. ?? 558 Suicide & Crisis Lifeline is available 24/05 if you or someone you know needs to find a reason to keep living. By calling 645 you'll be connected to a skilled, trained counselor at a crisis center in your area. INPATIENT DISCHARGE INSTRUCTIONS SIGNATURE PAGE KATERINE NICOLE Location:[facility] Registration Date and Time:03/18/2023 17:31 EDT Primary Care Physician: Graciela Nunez MD, Attending Physician: Blake ORTIZ, Cheryl, I KATERINE NICOLE, have received the above patient education materials/instructions and have verbalized understanding. If ambulance or transport services are being used I further acknowledge being given a choice of service. ?? If you need to contact me, please call me at this number: . Patient/Supervisor Nuclear Medicine Name: Patient/Supervisor Nuclear Medicine Signature: Relationship to Patient: Witness Name/Signature: Date: * Blake ORTIZ, Aseesh: PERFORM, SIGN, VERIFY Event Display: Patient Education Handout Authored Date: [id number] Portable XR Chest Views * [facility]SPowerscribe , CIS S: TRANSCRIBE Moe Hauser MD P: VERIFY Event Display: Result: Authored Date: [id number] Chest Portable Hx of Present Illness: Patient comes in with increasing SOB x 3 days. Hx of SOB.; Reason: Shortnessof Breath; Clinical Question(s): CHF COMPARISON: 12/21/2021 FINDINGS: No acute cardiopulmonary process IMPRESSION: No acute abnormality. WSN: [id number] Ordering Physician: Elizabeth Thornton Dictated By: Moe Hauser MD Dictated Date/Time: 03/18/23 3:00 pm Reviewed By: Moe Hauser MD Signed By: Moe Hauser MD Signed Date/Time: 03/18/23 3:00 pm Transcribed By: VALENTIN Transcribed Date/Time: 03/18/23 2:59 pm Patient Care team information Care Team Personnel Name: Morgan Abbott MD Position: [facility] Renal MD Member Role: Lifetime Consulting Physician Address: Address: [address] [place] [address], [place] [address]- Name: Graciela Nunez MD Position: [facility] Primary Care Physician Member Role: PCP Address: Address: [address] [place] [address]- Name: Maryam Camara RN Position: [facility] RN Member Role: Primary Care Nurse Name: Luisa Storey RN Position: S RN Member Role: Primary Care Nurse Name: Paty Ventura RN Position: S RN Member Role: Primary Care Nurse Name: Ruby Alexandre RN Position: [facility] RN Member Role: Primary Care Nurse Address: Address: [address] [place] [address]- Name: Celso Lawson MD Position: [facility] Renal MD Member Role: Lifetime Consulting Physician Address: Address: [address] [place] [address] [facility] [address] Name: *Naomi BAUER Attending Position: [facility] ED Medicine Name: Rebekah Negrete RN Position: [facility] ED RN W/OE and Tasks Member Role: Patient Care Provider Name: Joyce Cai Position: [facility] ED TA [facility] Name: Jazmín Aviles Position: [facility] TA Member Role: Patient Care Provider Care Team Related Persons Name: LAZARUS OSBORNE Address: [place] [address] Name: KAVON NICOLE Address: home [address] [place] [address] Name: PT, STATES NONE
--- OUTSIDE RECORDS SUMMARY | 2023-08-21 08:44 | XMS_ITS | Continuity of Care Document ---
Author Name Unknown Organization [facility] Address [address] [place] [address]- Care Team Providers Care Civil Design Specialist Name Role Phone Graciela Nunez MD Primary Care Physician Encounter [facility] Date(s): 07/08/22 - 08/07/22 [facility] [address] [place], [place] [address] Allergies, Adverse Reactions, Alerts Substance [...] 23-valent vaccine 6 07/31/10 Recorded 1Result Comment: [id number] given w/out incident 2Location History: [place], [place] 3Admin Note: done @ dr jones office 4Location History: [facility] 5Location History: [facility] 6Location History: [...] 3 Refills, Maintenance, 04/09/22 9:54:00 EDT, Tablet, [facility] #[id number], Partial fill upon patient request if the prescription is for a schedule II opioid drug., 1 tablet By Mouth Daily, 170, cm, 02/04... Start Date: 04/09/22 Status: Ordered busPIRone 10 mg oral tablet 10 mg, 1, tablet, By Mouth, 3 times a day, # 90 tablet, Refills 3, Tot. Refills 3, Maintenance, 07/30/22 13:44:00 EDT, Route to Pharmacy Electronically, [facility]acy [facility][id number], new dosage, 170, cm, 02/04/22 11:19:00 EDT, Height, 44.1, kg, 12/20/21 16:05:0... Start Date: 07/30/22 Status: Ordered calcium (as carbonate)-vitamin D 500 mg-400 intl units oral tablet 1 tablet, By Mouth, 2 times a day, calcium 500/vitamin d 400 iu twice daily, # 60 tablet, 6 Refills, Maintenance, 02/11/22 10:15:00 EDT, Tablet, [facility] #[id number], Partial fill upon patientrequest if the prescription is for a schedule II op... Start Date: 02/11/22 Status: Ordered calcium-vitamin D 600 mg-400 intl units oral tablet 1 tablet, By Mouth, 2 times a day, # 60 tablet, 6 Refills, Maintenance, 05/15/22 16:21:00 EDT, Tablet, [facility][id number], Partial fill upon patient request if the prescription is for a schedule II opioid drug., 1 tablet By Mouth 2 times a da... Start Date: 05/15/22 Status: Ordered Colace sodium 100 mg oral capsule 100 mg, 1, capsule, By Mouth, 2 times a day, PRN, # 180 capsule, Refills 1, Tot. Refills 1, Maintenance, for constipation, 06/23/22 10:20:00 EDT, Route to Pharmacy Electronically, [facility]/pharmacy #[id number],prefers gel formulation, 170, cm, 02/04/22 11:19:00... Start Date: 06/23/22 Status: Ordered diltiazem 180 mg/24 hours oral capsule, extended release 180 mg, 1, capsule, By Mouth, Daily, # 30 capsule, Refills 0, Tot. Refills 0, Maintenance, 11/06/2209:09:00 EST, Route to Pharmacy Electronically, [facility] #[id number], Partial fill upon patient request if the prescription is for a schedule II... Start Date: 11/06/21 Status: Ordered Flonase 50 mcg/inh nasal spray 1 sprays, Nares, Both, Daily in AM, # 16 Gm, 4 Refills, Maintenance, 12/03/21 12:34:00 EST, [place], [facility] #[id number], Partial fill upon patient request if the prescription is for a scheduleII opioid drug., 1 sprays Nares, Both Daily in AM,... Start Date: 12/03/21 Status: Ordered folic acid 1 mg oral tablet 1 mg, 1, tablet, By Mouth, Daily, # 30 tablet, Refills 11, Tot. Refills 11, Maintenance, 02/25/22 16:15:00 EDT, Route to Pharmacy Electronically, [facility] #[id number], 170, cm, 02/04/22 11:19:00 EDT, Height, 44.1, [...] 02/09/22 15:13:00 EDT, Route to Pharmacy Electronically, [facility] #[id number], 170, cm, 02/04/22 11:19:00 EDT, Height, 44.1, kg, 12/20/21 16:05:00 EST,... Start Date: 02/09/22 Status: Ordered Hair, Skin & Nails 5 mg oral capsule 1 capsule = 5 mg, By Mouth, Daily, # 90 capsule, 3 Refills, Maintenance, 02/19/22 12:29:00 EDT, [facility] #[id number], Partial fill upon patient request if the prescription is for a schedule IIopioid drug., 1 capsule By Mouth Daily, 170, cm, 04... Start Date: 02/19/22 Status: Ordered hydrOXYzine hydrochloride 10 mg oral tablet 1-2 TABLETS, By Mouth, 2 times a day, PRN NEEDED FOR ANXIETY, # 60 tablet, 3 Refills, Maintenance, 07/30/22 13:45:00 EDT, [facility]/pharmacy #[id number], 170, cm, 02/04/22 11:19:00 EDT, Height, 44.1, kg, 12/20/21 16:05:00 EST, Dry Weight Start Date: 07/30/22 Status: Ordered lactulose 10 gm/15 ml oral syrup 15 mL = 10 Gm, By Mouth, Every 72 hours, PRN as needed for constipation, # 300 mL, 5 Refills, Maintenance, 03/19/22 14:45:00 EDT, Syrup, [facility] #[id number], Partial fill upon patient requestif the prescription is for a schedule II opioid ivonne... Start Date: 03/19/22 Status: Ordered LORazepam 0.5 mg oral tablet 1 tablet = 0.5 mg, By Mouth, 3 times a day, # 60 tablet, 3 Refills, Maintenance, 07/08/22 17:11:00 EDT, Tablet, [facility]/pharmacy #[id number], Partial fill upon patient request if the [...] 10/22/21 15:09:00 EST, Route to Pharmacy Electronically, [facility] #[id number] Tablet, Partial fill upon patient request... Start [...] Refills, Maintenance, 02/26/21 15:47:00 EDT, ER Tablet, [facility] #[id number], Partial fill upon patient requestif the prescription [...] 11 Refills, Maintenance, 12/02/21 10:55:00 EST, Capsule, [facility] #[id number], Partial fill upon patient request if the [...] per day. Sex Patient Care team information Personnel Name: Graciela Nunez MD Address: Address: [address] [place] [address]
--- OUTSIDE RECORDS SUMMARY | 2023-08-21 08:44 | XMS_ITS | Continuity of Care Document ---
Author Name Unknown Organization [facility] Address [address] [place] [address]- Care Team Providers Care Track Liner Operator Name Role Phone Graciela Nunez MD Primary Care Physician [phone] [facility] Date(s): 03/18/23 - 04/17/23 [facility] [address] [place], [place] [address] Allergies, Adverse Reactions, Alerts [...] 23-valent vaccine 6 07/31/10 Recorded 1Result Comment: [id number] given w/out incident 2Location History: [place], [place] 3Admin Note: done @ dr jones office 4Location History: [facility] 5Location History: [facility] 6Location History: [facility] Medications aspirin 81 mg oral [...] Replace Required Details, Route to Pharmacy Electronically, [id number], 170, cm, ... Start Date: 03/26/23 Status: Ordered baclofen 10 mg oral tablet 10 mg, 1, tablet, By Mouth, 2 times a day, PRN, # 28 tablet, Refills 2, Tot. Refills 2, Maintenance, Pain , Moderate, 02/11/23 12:27:00 EDT, Route to Pharmacy Electronically, [facility]/pharmacy #[id number], Partial fill upon patient request if the [...] 12/03/22 9:01:00 EST, Route to Pharmacy Electronically, [facility]/pharmacy #[id number], 170, cm, 02/04/22 11:19:00 EDT, Height, 44.1, kg, 12/20/21 16:05:00 EST, Dry Weight Start Date: 12/03/22 Status: Ordered gabapentin 300 mg oral capsule 2, capsule, By Mouth, 3 times a day, # 180 capsule, Refills 5, Tot. Refills 5, Maintenance, 08/13/22 13:03:00 EDT, Route to Pharmacy Electronically, [facility]/pharmacy #[id number], 170, cm, 02/04/22 11:19:00 EDT, Height, 44.1, kg, 12/20/21 16:05:00 EST, Dry Weight Start Date: 08/13/22 Status: Ordered hydrOXYzine hydrochloride 10 mg oral tablet 3 tablet = 30 mg, By Mouth, 3 times a day, PRN NEEDED FOR ANXIETY, # 270 tablet, 3 Refills, Maintenance, 03/01/23 12:03:00 EDT, [facility]/pharmacy #[id number], 170, cm, 02/04/22 11:19:00 EDT, Height, 44.1, kg, 12/20/21 16:05:00 EST, Dry Weight Start Date: 03/01/23 Status: Ordered LORazepam 0.5 mg oral tablet 1 tablet = 0.5 mg, By Mouth, 2 times a day, PRN as needed for anxiety, for 14 days, fill when due, # 28 tablet, 1 Refills, Acute 05/07/23 12:41:00 EDT, 04/09/23 12:41:00 EDT, Tablet, [facility]/pharmacy #[id number], Partial fill upon patient request [...] 3 Refills, Maintenance, 12/16/22 9:12:00 EST, Capsule, [facility]/pharm[facility] #[id number], Partial fill upon patient request [...] 0 Refills, Maintenance, 03/22/23 13:16:00 EDT, Tablet, [facility], Partial fill upon patient [...] tablet, 3 Refills, Maintenance, 02/02/23 13:02:00 EDT, [facility]/pharmacy #[id number], 170, cm, 02/04/22 11:19:00 EDT, Height, 44.1, kg,... Start Date: 02/02/23 Status: Ordered urea 15 g oral powder for reconstitution = 15 Gm, By Mouth, 2 times a day, # 3 each, 0 Refills, Maintenance, 03/22/23 13:18:00 EDT, [facility], Partial fill upon patient request if [...] Role: Lifetime Consulting Physician Address: Address: [address] [place] [address], [address] [address]- Name: Graciela Nunez MD Position: [facility] Physician - Primary Care Member Role: PCP Address: Address: [address] [place] [address]- Name: Maryam Camara RN Position: [facility] RN Member Role: Primary Care Nurse Name: Luisa Storey RN Position: [facility] RN Member Role: Primary Care Nurse Name: Lorenzo LUIS, Paty Position: S RN Member Role: Primary Care Nurse Name: Ninfa Soto RN Position: S RN Member Role: Primary Care Nurse Name: Romeo Reid MD Position: [facility] Renal MD Member Role: Lifetime Consulting Physician Address: Address: [address] [place] [address] [facility] [place] [address]- Name: Olga Valladares RN Position: S RN Member Role: Primary Care Nurse Name: Ruby Alexandre RN Position: S RN Member Role: Primary Care Nurse Address: Address: [address] [place] [address]- Name: Celso Lawson MD Position: [facility] Renal MD Member Role: Lifetime Consulting Physician Address: Address: [address] [place] [address] [facility] [address] Name: Chloe Fisher LPN Position: S RN Member Role: Primary Care Nurse Care Team Related Persons Name: LAZARUS OSBORNE Address: [place] [address] Name: KAVON NICOLE Address: [address] [place] [address] Name: PT, STATES NONE
--- OUTSIDE RECORDS SUMMARY | 2023-08-21 08:44 | XMS_ITS | Continuity of Care Document ---
Author Name Unknown Organization [facility] Address [address] [place] [address]- Care Team Providers Care Revenue Accounting Manager Name Role Phone Graciela Nunez MD Primary Care Physician Encounter [facility] Date(s): 09/10/21 - 10/10/21 [facility] [address] [place], [place] [address] Allergies, Adverse Reactions, Alerts [...] 23-valent vaccine 6 07/31/10 Recorded 1Result Comment: [id number] given w/out incident 2Location History: [place], [place] 3Admin Note: done @ dr jones office 4Location History: [facility] 5Location History: [facility] [...] 0 Refills, Maintenance, 09/01/21 15:19:00 EDT, Capsule, [facility] #[id number], Partial fill upon patient request if the [...] 01/31/21 16:35:00 EDT, Route to Pharmacy Electronically, [facility] #[id number], 170, cm, 10/02/20 10:06:00EST, Height, 56.3, kg, 11/24/19 22:58:00 EST, Dry W... Start Date: 01/31/21 Status: Ordered furosemide 20 mg oral tablet 1, tablet, By Mouth, Daily, PRN, # 90 tablet, Refills 0, Tot. Refills 0, Maintenance, NEEDED FORLEG SWELLING, 04/19/20 15:50:00 EDT, Route to Pharmacy Electronically, [facility] #[id number],170, cm, 12/13/19 13:51:00 EST, Height, 56.3, kg, 0... Start Date: 04/19/20 Status: Ordered gabapentin 300 mg oral capsule 2, capsule, By Mouth, 3 times a day, # 180 capsule, Refills 1, Tot. Refills 1, Maintenance, 08/26/21 10:50:00 EDT, Route to Pharmacy Electronically, [facility] #[id number], 162.56, cm, 08/22/21 2:36:00 EDT, Height, 52.65, [...] tablet, 0 Refills, Maintenance, 09/10/21 16:04:00 EST, [facility] #[id number], 170, cm, 08/30/21 17:40:00 EDT, Height,51.5, kg, 08/30/21 17:40:00 EDT, Dry Weight Start Date: 09/10/21 Status: Ordered Metoprolol Succinate ER 25 mg oral tablet, extended release 1 tablet = 25 mg, By Mouth, Daily, # 90 tablet, 1 Refills, Maintenance, 01/29/20 10:50:00 EDT, XL Tablet, [facility] #[id number], 170, cm, 12/13/19 13:51:00 EST, Height, 56.3, kg, 11/24/19 22:58:00 EST, Dry Weight Start Date: 01/29/20 Status: Ordered predniSONE 10 mg oral tablet See Instructions, 4 tabs x 3 days, 3 tabs x 3 days, 2 tabs x 3 days, 1 tab x 3 days, # 30 tablet, 0Refills, Acute 10/11/21 12:03:00 EST, 09/11/21 12:03:00 EST, Tablet, [facility] #[id number], Partial fill upon patient request if the [...] 3 Refills, Maintenance, 03/13/21 13:26:00 EDT, Tablet, [facility] #[id number], 170, cm, 10/02/20 10:06:00 EST, Height, 56.3, [...] Refills, Maintenance, 02/26/21 15:47:00 EDT, ER Tablet, [facility] #[id number], Partial fill upon patient requestif the prescription is for a schedule II opioid ivonne... Start Date: 02/26/21 Status: Ordered Ventolin HFA 108 mcg/inh inhalation aerosol with adapter 2 puffs, Inhalation, 4 times a day, PRN for wheezing, # 1 each, 0 Refills, Maintenance, 10/02/20 10:55:00 EST, Aerosol, [facility]/pharmacy #[id number], 170, cm, 10/02/20 10:06:00 EST, Height, 56.3, kg, 11/24/19 22:58:00 EST, Dry Weight Start Date: 10/02/20 Status: Ordered Vitamin B1 100 mg oral tablet 1, tablet, By Mouth, Daily, # 30 tablet, Refills 7, Tot. Refills 0, Acute, 01/06/21 14:35:00 EST, Route to Pharmacy Electronically, [facility] #[id number], 170, cm, 10/02/20 10:06:00 EST, Height, 56.3, kg, 11/24/19 22:58:00 EST, Dry Weight Start Date: 01/06/21 Status: Ordered Zofran 4 mg oral tablet 1 tablet = 4 mg, By Mouth, 3 times a day, PRN nausea, # 30 tablet, 0 Refills, Maintenance, 209:17:00 EDT, Tablet, [facility] #[id number], 170, cm, 12/13/19 13:51:00 EST, Height, 56.3, [...]
--- OUTSIDE RECORDS SUMMARY | 2023-08-21 08:44 | XMS_ITS | Continuity of Care Document ---
Author Name Unknown Organization [facility] Address [address] [place] [address]- Care Team Providers Care Band Maker Name Role Phone Graciela Nunez MD Primary Care Physician Encounter [facility] Date(s): 03/02/23 - 04/01/23 [facility] [address] [place], [place] [address] Allergies, Adverse Reactions, Alerts [...] 23-valent vaccine 6 07/31/10 Recorded 1Result Comment: [id number] given w/out incident 2Location History: [place], [place] 3Admin Note: done @ dr jones office 4Location History: [facility] 5Location History: [facility] 6Location History: [facility] Medications aspirin 81 mg [...] Replace Required Details, Route to Pharmacy Electronically, [facility] [id number], 170, cm, ... Start Date: 03/26/23 Status: Ordered baclofen 10 mg oral tablet 10 mg, 1, tablet, By Mouth, 2 times a day, PRN, # 28 tablet, Refills 2, Tot. Refills 2, Maintenance, Pain , Moderate, 02/11/23 12:27:00 EDT, Route to Pharmacy Electronically, [facility]/pharmacy #[id number], Partial fill upon patient request if the prescription is... Start Date: 02/11/23 Stop Date: 03/25/23 Status: Ordered docusate sodium 100 mg oral capsule TAKE 1 CAPSULE BY MOUTH 2 TIMES A DAY NEEDED FOR CONSTIPATION. FILLED AT [facility] Start Date: 03/18/23 Status: Ordered folic acid 1 mg oral tablet 1 mg, 1, tablet, By Mouth, Daily, # 30 tablet, Refills 11, Tot. Refills 11, Maintenance, 12/03/22 9:01:00 EST, [facility] 04/07/23 10:35:00 EDT, 03/24/23 10:35:00 EDT, Tablet, [facility]/pharmacy#[id number], Partial fill upon patient request if [...] 3 Refills, Maintenance, 12/16/22 9:12:00 EST, Capsule, [facility]/pharmacy #[id number], Partial fill upon [...] 0 Refills, Maintenance, 03/22/23 13:16:00 EDT, Tablet, [facility], Partial fill upon patient [...] tablet, 3 Refills, Maintenance, 02/02/23 13:02:00 EDT, [facility]/pharmacy #[id number], 170, cm, 02/04/22 11:19:00 EDT, Height, 44.1, kg,... Start Date: 02/02/23 Status: Ordered urea 15 g oral powder for reconstitution = 15 Gm, By Mouth, 2 times a day, # 3 each, 0 Refills, Maintenance, 03/22/23 13:18:00 EDT, [facility], Partial fill upon patient request if [...] Personnel Name: Milena ORTIZ, Morgan Hancock Position: [facility] Renal MD Member Role: Lifetime Consulting Physician Address: Address: [address] [place] [address], [address] [address]- Name: Graciela Nunez MD Position: [facility] Physician - Primary Care Member Role: PCP Address: Address: [address] [place] [address]- Name: Maryam Camara RN Position: [facility] RN Member Role: Primary Care Nurse Name: Luisa Storey RN Position: [facility] RN Member Role: Primary Care Nurse Name: Paty Ventura RN Position: [facility] RN Member Role: Primary Care Nurse Name: Ruby Alexandre RN Position: S RN Member Role: Primary Care Nurse Address: Address: [address] [place] [address] Name: Celso Lawson MD Position: [facility] Renal MD Member Role: Lifetime Consulting Physician Address: Address: [address] [place] [address] [facility] [place] [address]- Care Team Related Persons Name: LAZARUS OSBORNE Address: [place] [address] Name: KAVON NICOLE Address: home [address] [place] [id number] Name: PT, STATES NONE
--- OUTSIDE RECORDS SUMMARY | 2023-08-21 08:44 | XMS_ITS | Continuity of Care Document ---
Author Name Unknown Organization [facility] Address [address] [place] [address]- Care Team Providers Care Private Branch Exchange Repairer Name Role Phone Graciela Nunez MD Primary Care Physician [phone] [facility] Date(s): 10/09/21 - 10/16/21 [facility] [address] [place], [place] [address] Attending Physician: Graciela Nunez MD Referring Physician: Graciela [...] 23-valent vaccine 6 07/31/10 Recorded 1Result Comment: [id number] given w/out incident 2Location History: [place], [place] 3Admin Note: done @ dr jones office 4Location History: [facility] 5Location History: [facility] 6Location History: [facility] Medications alendronate 70 mg oral tablet [...] 0 Refills, Maintenance, 09/01/21 15:19:00 EDT, Capsule, [facility] #[id number], Partial fill upon patient request if the [...] 01/31/21 16:35:00 EDT, Route to Pharmacy Electronically, [facility] #[id number], 170, cm, 10/02/20 10:06:00EST, Height, 56.3, kg, 11/24/19 22:58:00 EST, Dry W... Start Date: 01/31/21 Status: Ordered furosemide 20 mg oral tablet 1, tablet, By Mouth, Daily, PRN, # 90 tablet, Refills 0, Tot. Refills 0, Maintenance, NEEDED FORLEG SWELLING, 04/19/20 15:50:00 EDT, Route to Pharmacy Electronically, [facility] #[id number],170, cm, 12/13/19 13:51:00 EST, Height, 56.3, kg, 0... Start Date: 04/19/20 Status: Ordered gabapentin 300 mg oral capsule 2, capsule, By Mouth, 3 times a day, # 180 capsule, Refills 1, Tot. Refills 1, Maintenance, 08/26/21 10:50:00 EDT, Route to Pharmacy Electronically, [facility] #[id number], 162.56, cm, 08/22/21 2:36:00 EDT, Height, 52.65, [...] tablet, 0 Refills, Maintenance, 09/10/21 16:04:00 EST, [facility] #[id number], 170, cm, 08/30/21 17:40:00 EDT, Height,51.5, kg, 08/30/21 17:40:00 EDT, Dry Weight Start Date: 09/10/21 Status: Ordered Metoprolol Succinate ER 25 mg oral tablet, extended release 1 tablet = 25 mg, By Mouth, Daily, # 90 tablet, 1 Refills, Maintenance, 01/29/20 10:50:00 EDT, XL Tablet, [facility] #[id number], 170, cm, 12/13/19 13:51:00 EST, Height, 56.3, [...] 3 Refills, Maintenance, 03/13/21 13:26:00 EDT, Tablet, [facility] #[id number], 170, cm, 10/02/20 10:06:00 EST, Height, 56.3, [...] Refills, Maintenance, 02/26/21 15:47:00 EDT, ER Tablet, [facility] #[id number], Partial fill upon patient requestif the prescription [...] 01/06/21 14:35:00 EST, Route to Pharmacy Electronically, [facility] #[id number], 170, cm, 10/02/20 10:06:00 EST, Height, 56.3, kg, 11/24/19 22:58:00 EST, Dry Weight Start Date: 01/06/21 Status: Ordered Zofran 4 mg oral tablet 1 tablet = 4 mg, By Mouth, 3 times a day, PRN nausea, # 30 tablet, 0 Refills, Maintenance, :17:00 EDT, Tablet, [facility] #[id number], 170, cm, 12/13/19 13:51:00 EST, Height, 56.3, [...]
--- OUTSIDE RECORDS SUMMARY | 2023-08-21 08:44 | XMS_ITS | Continuity of Care Document ---
Author Name Unknown Organization [facility] Address [address] [place] [address]- Care Team Providers Care Avionics Test Technician Name Role Phone Mayra ORTIZ, Graciela Lares Primary Care Physician Encounter [facility] Date(s): 04/15/21 - 05/15/21 [facility] [address] [place], [place] [address] Allergies, Adverse Reactions, Alerts [...] 23-valent vaccine 5 07/31/10 Recorded 1Location History: [place], [place] 2Admin Note: done @ dr jones office 3Location History: [facility] 4Location History: [facility] 5Location History: [facility] Medications alendronate 70 mg oral [...] Replace Required Details, Route to Pharmacy Electronically, [facility] #036... Start Date: 01/31/20 Status: Ordered folic acid 1 mg oral tablet 1 mg, 1, tablet, By Mouth, Daily, # 30 tablet, Refills 5, Tot. Refills 5, Maintenance, 01/31/21 16:35:00 EDT, Route to Pharmacy Electronically, [facility] #[id number], 170, cm, 10/02/20 10:06:00EST, Height, 56.3, kg, 11/24/19 22:58:00 EST, Dry W... Start Date: 01/31/21 Status: Ordered furosemide 20 mg oral tablet 1, tablet, By Mouth, Daily, PRN, # 90 tablet, Refills 0, Tot. Refills 0, Maintenance, NEEDED FORLEG SWELLING, 04/19/20 15:50:00 EDT, Route to Pharmacy Electronically, [facility] #[id number],170, cm, 12/13/19 13:51:00 EST, Height, 56.3, kg, 0... Start Date: 04/19/20 Status: Ordered gabapentin 300 mg oral capsule 2, capsule, By Mouth, 3 times a day, # 180 capsule, Refills 1, Tot. Refills 0, Maintenance, 04/22/21 12:52:00 EDT, Route to Pharmacy Electronically, [facility] #[id number], 170, cm, 10/02/20 10:06:00 EST, Height, 56.3, [...] days, # 28 tablet, 2 Refills, Acute 06/12/21 19:06:00 EDT, 05/01/21 19:06:00 EDT, Tablet, [facility] #[id number], Partial fill upon patient request if the prescription... Start Date: 05/01/21 Stop Date: 06/12/21 Status: Ordered Metoprolol Succinate ER 25 mg oral tablet, extended release 1 tablet = 25 mg, By Mouth, Daily, # 90 tablet, 1 Refills, Maintenance, 01/29/20 10:50:00 EDT, XL Tablet, [facility] #32512, 170, cm, 12/13/19 13:51:00 EST, Height, 56.3, [...] 3 Refills, Maintenance, 03/13/21 13:26:00 EDT, Tablet, [facility] #07655, 170, cm, 10/02/20 10:06:00 EST, Height, 56.3, [...] 02/18/21 16:23:00 EDT, Route to Pharmacy Electronically, [facility] #[id number], Partial fill upon patient request if... Start Date: 02/18/21 Stop Date: 03/04/21 Status: Ordered Tylenol 8 HR Arthritis Pain 650 mg oral tablet, extended release 1 tablet = 650 mg, By Mouth, Every 8 hours, PRN Pain , Moderate, # 100 tablet, 1 Refills, Maintenance, 02/26/21 15:47:00 EDT, ER Tablet, [facility] #[id number], Partial fill upon patient requestif the prescription is for a schedule II opioid ivonne... Start Date: 02/26/21 Status: Ordered Ventolin HFA 108 mcg/inh inhalation aerosol with adapter 2 puffs, Inhalation, 4 times a day, PRN for wheezing, # 18 Gm, 6 Refills, Maintenance, 06/17/20 16:11:00 EDT, Aerosol, [facility] #17296, 170, cm, 12/13/19 13:51:00 EST, Height, 56.3, [...] 01/06/21 14:35:00 EST, Route to Pharmacy Electronically, [facility] #[id number], 170, cm, 10/02/20 10:06:00 EST, Height, 56.3, kg, 11/24/19 22:58:00 EST, Dry Weight Start Date: 01/06/21 Status: Ordered Zofran 4 mg oral tablet 1 tablet = 4 mg, By Mouth, 3 times a day, PRN nausea, # 30 tablet, 0 Refills, Maintenance, :17:00 EDT, Tablet, [facility] #[id number], 170, cm, 12/13/19 13:51:00 EST, Height, 56.3, [...]
--- OUTSIDE RECORDS SUMMARY | 2023-08-21 08:44 | XMS_ITS | Continuity of Care Document ---
Author Name Unknown Organization [facility] Address [address] [place] [address]- Care Team Providers Care Sensor Operator Name Role Phone Graciela Nunez MD Primary Care Physician Encounter [facility] Date(s): 05/03/23 - 06/02/23 [facility] [address] [place], [place] [address] Allergies, Adverse Reactions, Alerts [...] 23-valent vaccine 6 07/31/10 Recorded 1Result Comment: [id number] given w/out incident 2Location History: [place], [place] 3Admin Note: done @ dr jones office 4Location History: [facility] 5Location History: [facility] 6Location History: [facility] Medications albuterol-ipratropium 3 [...] EDT, Route to Pharmacy Electronically, [facility]/pharmacy #[id number], Partial fill upon patient request if the [...] A DAY NEEDED FOR CONSTIPATION. FILLED AT [facility] Start Date: 03/18/23 Status: Ordered folic acid 1 mg oral tablet 1 mg, 1, tablet, By Mouth, Daily, # 30 tablet, Refills 11, Tot. Refills 11, Maintenance, 12/03/22 9:01:00 EST, Route to Pharmacy Electronically, [facility]/pharmacy #[id number], 170, cm, 02/04/22 11:19:00 EDT, Height, 44.1, kg, 12/20/21 16:05:00 EST, Dry Weight Start Date: 12/03/22 Status: Ordered gabapentin 300 mg oral capsule 2, capsule, By Mouth, 3 times a day, # 180 capsule, Refills 5, Tot. Refills 5, Maintenance, 08/13/22 13:03:00 EDT, Route to Pharmacy Electronically, [facility]/pharmacy #[id number], 170, cm, 02/04/22 11:19:00 EDT, Height, 44.1, kg, 12/20/21 16:05:00 EST, Dry Weight Start Date: 08/13/22 Status: Ordered hydrOXYzine hydrochloride 10 mg oral tablet 3 tablet = 30 mg, By Mouth, 3 times a day, PRN NEEDED FOR ANXIETY, # 270 tablet, 3 Refills, Maintenance, 03/01/23 12:03:00 EDT, [facility]/pharmacy #[id number], 170, cm, 02/04/22 11:19:00 EDT, Height, [...] Maintenance, 12/16/22 9:12:00 EST, Capsule, [facility]/pharmacy #[id number], Partial fill upon patient request if [...] Team Personnel Name: Morgan Abbott MD Position: [facility] Renal MD Member Role: Lifetime Consulting Physician Address: Address: [address] [place] [address], [address] Name: Graciela Nunez MD Position: [facility] Physician - Primary Care Member Role: PCP Address: Address: [address] [place] [address] Name: Maryam Camara RN [facility] Member Role: Lifetime Consulting Physician Address: Address: [address] [place] [address] [address] [facility] [address] Name: Olga Valladares RN Position: S RN Member Role: Primary Care Nurse Name: Ruby Alexandre RN Position: S RN Member Role: Primary Care Nurse Address: Address: [address] [place] [address]- Name: Celso Lawson MD Position: [facility] Renal MD Member Role: Lifetime Consulting Physician Address: Address: [address] [place] [address] [facility] [place] [address]- Name: Alyssa Camacho RN Position: S RN Member Role: Primary Care Nurse Name: Keeyl Pascal RN Position: S RN Member Role: Primary Care Nurse Name: Chloe Fisher LPN Position: S RN Member Role: Primary Care Nurse Care Team Related Persons Name: LAZARUS OSBORNE Address: [place] [address] Name: KAVON NICOLE Address: [address] [place] [address] Name: PT, [facility] NONE
--- OUTSIDE RECORDS SUMMARY | 2023-08-21 08:44 | XMS_ITS | Continuity of Care Document ---
Author Name Unknown Organization [facility] ter Address [address] [place] [address]- Care Team Providers Care Pharmacy Informatics Manager Name Role Phone Graciela Nunez MD Primary Care Physician Encounter [facility] Date(s): 12/20/21 - 12/22/[address] [address]- Encounter Diagnosis Shortness of breath(Final) - 12/20/21 Discharge Disposition: A-Transfer VNA/Home Health Attending Physician: Annel ORTIZ, Robert Admitting Physician: Addie Doll MD Referring Physician: Not on Staff, Referring [...] 23-valent vaccine 6 07/31/10 Recorded 1Result Comment: [id number] given w/out incident 2Location History: [place], [place] 3Admin Note: done @ dr jones office 4Location History: [facility] 5Location History: [facility] 6Location History: [facility] Medications aspirin 81 mg [...] 10/22/21 15:09:00 EST, Route to Pharmacy Electronically, [facility][id number], Partial fill upon patient request if the pr... Start Date: 10/22/21 Status: Ordered diltiazem 180 mg/24 hours oral capsule, extended release 180 mg, 1, capsule, By Mouth, Daily, # 30 capsule, Refills 0, Tot. Refills 0, Maintenance, 11/06/2209:09:00 EST, Route to Pharmacy Electronically, [facility] #[id number], Partial fill upon patient request if the prescription is for a schedule II... Start Date: 11/06/21 Status: Ordered diltiazem 180 mg/24 hours oral capsule, extended release 180 mg, CD Capsule, By Mouth, 12/22/21 9:00:00 EST Start Date: 12/22/21 Stop Date: 12/22/21 Status: Completed Flonase 50 mcg/inh nasal spray 1 sprays, Nares, Both, Daily in AM, # 16 Gm, 4 Refills, Maintenance, 12/03/21 12:34:00 EST, [place], [facility] #[id number], Partial fill upon patient request if the prescription is for a scheduleII opioid drug., 1 sprays Nares, Both Daily in AM,... Start Date: 12/03/21 Status: Ordered folic acid 1 mg oral tablet 1 mg, 1, tablet, By Mouth, Daily, # 30 tablet, Refills 5, Tot. Refills 5, Maintenance, 01/31/21 16:35:00 EDT, Route to Pharmacy Electronically, [facility] #[id number], 170, cm, 10/02/20 10:06:00EST, Height, 56.3, kg, [...] 08/26/21 10:50:00 EDT, Route to Pharmacy Electronically, [facility] #[id number], 162.56, cm, 08/22/21 2:36:00 EDT, Height, 52.65, kg, 08/22/21 2:36:00 EDT... Start Date: 08/26/21 Status: Ordered LORazepam 0.5 mg oral tablet 1 tablet = 0.5 mg, By Mouth, 2 times a day, PRN as needed for anxiety, Maintenance, 12/20/21 17:53:00 EST, Tablet, Partial fill upon patient request if the prescription is for a schedule II opioid drug. Start Date: 12/20/21 Status: Ordered metoprolol 25 mg oral tablet, extended release 25 mg, XL Tablet, By Mouth, Hold for: systolic bpp<110 and hr <55, 12/22/21 9:00:00 EST Start Date: 12/22/21 Stop Date: 12/22/21 Status: Completed Metoprolol Succinate ER 25 mg oral tablet, extended release 1 tablet = 25 mg, By Mouth, Daily Start Date: 12/17/21 Status: Ordered Milk of Magnesia 8% oral suspension 60 mL = 4.8 Gm, By Mouth, Daily, PRN for constipation, # 600 mL, 0 Refills, Acute 01/10/22 10:26:00EST, 12/17/21 10:18:00 EST, Suspension, [facility] #[id number], Partial fill upon patient request if the prescription is for a schedule II opioid... Start Date: 12/17/21 Stop Date: 01/10/22 Status: Ordered nicotine 7 mg/24 hr transdermal film, extended release 1 patch, Topically, Daily, for 14 days, # 14 patch, 0 Refills, Acute 01/05/22 14:10:00 EST, 12/22/21 14:10:00 EST, Patch, [facility] #[id number], Partial fill upon patient request if the [...] 0 Refills, Maintenance, 12/22/21 14:25:00 EST, Tablet, [facility] #[id number], Partial fill upon patient requ... Start Date: [...] 10/22/21 15:09:00 EST, Route to Pharmacy Electronically, [facility] #[id number] Tablet, Partial fill upon patient request... Start [...] Refills, Maintenance, 02/26/21 15:47:00 EDT, ER Tablet, [facility] #[id number], Partial fill upon patient requestif the prescription [...] 11 Refills, Maintenance, 12/02/21 10:55:00 EST, Capsule, [facility] #[id number], Partial fill upon patient request if the [...] Active Abnormal TSH(Confirmed) Active Underweight(Confirmed) Active Results Radiology Reports * Exam Date Time Procedure Performing Provider Status 12/21/21 7:24 AM Chest Portable John Martinez; Auth (Janneth ified) Notes: (Chest Portable) Reason For Exam: Dyspnea;Other: RESULT: Chest Portable Chest Portable Reason: Other:; Dyspnea; Clinical Question(s): Other:; Pneumonia, atelectasis, fluid overload. COMPARISON: Multiple priors, the most recent 12/20/2021 FINDINGS: LINES AND TUBES: None. LUNGS AND PLEURA: Lungs are well aerated and clear with normal vascularity. No pleural effusion. No pneumothorax. HEART, MEDIASTINUM AND DEEPALI: Heart is normal in size. Normal upper mediastinal and hilar contour. BONES AND SOFT TISSUES: No acute osseous abnormality. Bilateral breast implants with densely calcified capsules. IMPRESSION: No acute abnormality. 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 HX COPD Home O 2 up to 5L min; Reason: Shortness of Breath; Clinical Question(s): CHF COMPARISON: 11/02/2021 FINDINGS: LINES AND TUBES: None. LUNGS AND PLEURA: Clear lungs. Normal pulmonary vascularity. No pleural effusion. No pneumothorax. HEART, MEDIASTINUM AND DEEPALI: Heart is normal in size. Normal upper mediastinal and hilar contour. BONES AND SOFT TISSUES: No acute abnormality. Calcified bilateral breast implants again seen. IMPRESSION: No acute cardiopulmonary abnormality. WSN: [id number] Ordering Physician: Raul Castillo Dictated By: Lorraine Bonilla MD, I Dictated Date/Time: 12/20/21 11:05 a Reviewed By: Lorraine Bonilla MD, I Signed By: Lorraine Bonilla MD, I Signed Date/Time: 12/20/21 11:05 am Transcribed By: VALENTIN Transcribed Date/Time: 12/20/21 11:03 am Vital Signs Most recent to oldest [Reference Range]: 1 2 3 4 Height 170 cm (12/22/21 2:00 PM) 170 cm (12/22/21 8:00 AM) 170 cm (12/22/21 3:38 AM) Weight 44.1 kg (12/20/21 4:05 PM) 39.5 kg (12/20/21 9:52 AM) Oxygen Saturation [94-100 %] 97 % (12/22/21 2:00 PM) 100 % (12/22/21 11:00 AM) 100 % (12/22/21 8:00 AM) Pulse Rate [55-90 bpm] 72 bpm (12/22/21 2:00 PM) 95 bpm *H* (12/22/21 11:00 AM) 76 bpm (12/22/21 9:17 AM) 76 bpm (12/22/21 9:17 AM) Body Mass Index [18.5-24.99] 15.26 *L* (12/20/21 4:05 PM) Blood Pressure [90-138/55-84 mm Hg] 128/66mm Hg (12/22/21 2:00 PM) 143/67mm Hg *H* (12/22/21 11:00 AM) 124/60mm Hg (12/22/21 9:17 AM) 124/60mm Hg (12/22/21 9:17 AM) Respiratory Rate [16-30 br/min] 18 br/min (12/22/21 2:00 PM) 18 br/min (12/22/21 11:00 AM) 18 br/min (12/22/21 8:00 AM) Temperature [96.8-100.4 DegF] 98.4 DegF (12/22/21 2:00 PM) 98.0 DegF (12/22/21 11:00 AM) 98.5 DegF (12/22/21 8:00 AM) Liters per Minute 5 L/min (12/22/21 2:00 PM) 5 L/min (12/22/21 11:00 AM) 5 L/min (12/22/21 8:00 AM) Mode of Delivery (Oxygen) Nasal cannula (12/22/21 2:00 PM) Nasal cannula (12/22/21 11:00 AM) Nasal cannula (12/22/21 8:00 AM) Blood pressure sites Arm, right (12/22/21 2:00 PM) Arm, right (12/22/21 11:00 AM) Arm, right (12/22/21 8:00 AM) Temperature Route Oral (12/22/21 2:00 PM) Oral (12/22/21 11:00 AM) Oral (12/22/21 8:00 AM) Dry Weight 44.1 kg (12/20/21 4:05 PM) 39.5 kg (12/20/21 9:52 AM) Social History Social History Type Response Tobacco Other: now smoking 1 /2 pack per day. Sex
--- OUTSIDE RECORDS SUMMARY | 2023-08-21 08:45 | XMS_ITS | Continuity of Care Document ---
Author Name Unknown Organization [facility] Address [address], [place] [address]- Care Team Providers Care Monitoring Analyst Name Role Phone Graciela Nunez MD Primary Care Physician [phone] Encounter [facility] Date(s): 12/24/20 - 12/31/20 [facility] [address] [place], [place] [address] Encounter Diagnosis Emphysema/COPD(Discharge Diagnosis) - 12/24/20 Osteoporosis(Discharge Diagnosis) - 12/24/20 Abnormal TSH(Discharge Diagnosis) - 12/24/20 Attending Physician: Graciela Nunez MD Allergies, Adverse [...] 23-valent vaccine 5 07/31/10 Recorded 1Location History: [place], [place] 2Admin Note: done @ dr jones office 3Location History: [facility] 4Location History: [facility] [...] Replace Required Details, Route to Pharmacy Electronically, [facility] #036... Start Date: 01/31/20 Status: Ordered folic acid 1 mg oral tablet 1 mg, 1, tablet, By Mouth, Daily, # 30 tablet, Refills 3, Tot. Refills 3, Maintenance, 01/18/20 10:43:00 EDT, Route to Pharmacy Electronically, [facility] #[id number], 170, cm, 12/13/19 13:51:00EST, Height, 56.3, kg, 11/24/19 22:58:00 EST, Dry W... Start Date: 01/18/20 Status: Ordered furosemide 20 mg oral tablet 1, tablet, By Mouth, Daily, PRN, # 90 tablet, Refills 0, Tot. Refills 0, Maintenance, NEEDED FORLEG SWELLING, 04/19/20 15:50:00 EDT, Route to Pharmacy Electronically, [facility] #[id number],170, cm, 12/13/19 13:51:00 EST, Height, 56.3, kg, 0... Start Date: 04/19/20 Status: Ordered gabapentin 300 mg oral capsule 600 mg, 2, capsule, By Mouth, 3 times a day, # 180 capsule, Refills 3, Tot. Refills 3, Maintenance,10/01/20 15:48:00 EST, Route to Pharmacy Electronically, [facility] #[id number], 170, cm, 12/13/19 13:51:00 EST, Height, 56.3, kg, 11/24/19 22:58:... Start Date: 10/01/20 Status: Ordered gabapentin 300 mg oral capsule See Instructions, TAKE 2 CAPSULES BY MOUTH three times per day, # 180 capsule, Refills 1, Instructions Replace Required Details, Route to Pharmacy Electronically, [facility] #[id number], 170, cm, 12/13/19 13:51:00 EST, Height, 56.3, [...] 02/04/21 15:36:00 EDT, 12/24/20 15:36:00 EST, Tablet, [facility] #[id number], Partial fill upon patient request if the prescription... Start Date: 12/24/20 Stop Date: 02/04/21 Status: Ordered Metoprolol Succinate ER 25 mg oral tablet, extended release 1 tablet = 25 mg, By Mouth, Daily, # 90 tablet, 1 Refills, Maintenance, 01/29/20 10:50:00 EDT, XL Tablet, [facility] #[id number], 170, cm, 12/13/19 13:51:00 EST, Height, 56.3, [...] 3 Refills, Maintenance, 11/21/20 10:53:00 EST, Tablet, [facility] #[id number], 170, cm, 10/02/20 10:06:00 EST, Height, 56.3, [...] 6 Refills, Maintenance, 06/17/20 16:11:00 EDT, Aerosol, [facility] #58630, 170, cm, 12/13/19 13:51:00 EST, Height, 56.3, kg, 11/24/19 22:58:00 EST, Dry Weight Start Date: 06/17/20 Stop Date: 01/13/21 Status: Ordered Ventolin HFA 108 mcg/inh inhalation aerosol with adapter 2 puffs, Inhalation, 4 times a day, PRN for wheezing, # 1 each, 0 Refills, Maintenance, 10/02/20 10:55:00 EST, Aerosol, [facility] #[id number], 170, cm, 10/02/20 10:06:00 EST, Height, 56.3, kg, 11/24/19 22:58:00 EST, Dry Weight Start Date: 10/02/20 Status: Ordered Vitamin B1 100 mg oral tablet 1, tablet, By Mouth, Daily, # 30 tablet, Refills 11, Tot. Refills 0, Acute, 12/18/19 14:10:00 EST, Route to Pharmacy Electronically, [facility] #[id number], 170, cm, 12/13/19 13:51:00 EST, Height, 56.3, kg, 11/24/19 22:58:00 EST, Dry Weight Start Date: 12/18/19 Status: Ordered Zofran 4 mg oral tablet 1 tablet = 4 mg, By Mouth, 3 times a day, PRN nausea, # 30 tablet, 0 Refills, Maintenance, 209:17:00 EDT, Tablet, [facility] #[id number], 170, cm, 12/13/19 13:51:00 EST, Height, 56.3, [...] Cl inical Service Informant Emphysema/COPD Discharge Diagnosis 12/24/20 Osteoporosis Discharge Diagnosis 12/24/20 Abnormal TSH Discharge Diagnosis 12/24/20 Social History Social History Type Response Smoking Status Current every day sm oker; Tobacco use times per day: smokes about 1.5 packs per day; entered on: 04/16/16 Sex
--- OUTSIDE RECORDS SUMMARY | 2023-08-21 08:45 | XMS_ITS | Continuity of Care Document ---
Author Name Unknown Organization [facility] Address [address], [place] [address]- Care Team Providers Care Hadoop Consultant Name Role Phone Graciela Nunez MD Primary Care Physician Encounter [facility] Date(s): 08/23/20 - 08/30/20 [facility] [address] [place] [address]- [facility] Encounter Diagnosis Emphysema/COPD(Discharge Diagnosis) - 08/23/20 Leg swelling(Discharge Diagnosis) - 08/23/20 Cardiac arrhythmia(Discharge Diagnosis) - 08/23/20 Thoracic compression fracture(Discharge Diagnosis) - 08/23/20 Attending Physician: Graciela Nunez MD Allergies, Adverse [...] 23-valent vaccine 5 07/31/10 Recorded 1Location History: [place], [place] 2Admin Note: done @ dr jones office 3Location History: [facility] 4Location History: [facility] 5Location History: [facility] Medications alendronate 70 mg oral [...] Replace Required Details, Route to Pharmacy Electronically, [facility] #036... Start Date: 01/31/20 Status: Ordered folic acid 1 mg oral tablet 1 mg, 1, tablet, By Mouth, Daily, # 30 tablet, Refills 3, Tot. Refills 3, Maintenance, 01/18/20 10:43:00 EDT, Route to Pharmacy Electronically, [facility] #[id number], 170, cm, 12/13/19 13:51:00EST, Height, 56.3, kg, 11/24/19 22:58:00 EST, Dry W... Start Date: 01/18/20 Status: Ordered furosemide 20 mg oral tablet 1, tablet, By Mouth, Daily, PRN, # 90 tablet, Refills 0, Tot. Refills 0, Maintenance, NEEDED FORLEG SWELLING, 04/19/20 15:50:00 EDT, Route to Pharmacy Electronically, [facility] #[id number],170, cm, 12/13/19 13:51:00 EST, Height, 56.3, kg, 0... Start Date: 04/19/20 Status: Ordered gabapentin 300 mg oral capsule See Instructions, TAKE 2 CAPSULES BY MOUTH three times per day, # 180 capsule, Refills 1, Instructions Replace Required Details, Route to Pharmacy Electronically, [facility] #[id number], 170, cm, 12/13/19 13:51:00 EST, Height, 56.3, [...] 0 Refills, Maintenance, 07/29/20 10:57:00 EDT, Tablet, [facility] #[id number], 170, cm, 12/13/19 13:51:00 EST,Height, 56.3, kg, 11/24/19 22:58:00 EST, Dry Weight Start Date: 07/29/20 Status: Ordered Metoprolol Succinate ER 25 mg oral tablet, extended release 1 tablet = 25 mg, By Mouth, Daily, # 90 tablet, 1 Refills, Maintenance, 01/29/20 10:50:00 EDT, XL Tablet, [facility] #[id number], 170, cm, 12/13/19 13:51:00 EST, Height, 56.3, [...] 3 Refills, Maintenance, 08/23/20 12:07:00 EDT, Tablet, [facility] #99381, 170, cm, 12/13/19 13:51:00 EST, Height, 56.3, [...] 6 Refills, Maintenance, 06/17/20 16:11:00 EDT, Aerosol, [facility] #93562, 170, cm, 12/13/19 13:51:00 EST, Height, 56.3, kg, 11/24/19 22:58:00 EST, Dry Weight Start Date: 06/17/20 Stop Date: 01/13/21 Status: Ordered Vitamin B1 100 mg oral tablet 1, tablet, By Mouth, Daily, # 30 tablet, Refills 11, Tot. Refills 0, Acute, 12/18/19 14:10:00 EST, Route to Pharmacy Electronically, [facility] #[id number], 170, cm, 12/13/19 13:51:00 EST, Height, 56.3, kg, 11/24/19 22:58:00 EST, Dry Weight Start Date: 12/18/19 Status: Ordered Zofran 4 mg oral tablet 1 tablet = 4 mg, By Mouth, 3 times a day, PRN nausea, # 30 tablet, 0 Refills, Maintenance, :17:00 EDT, Tablet, [facility] #[id number], 170, cm, 12/13/19 13:51:00 EST, Height, 56.3, [...] Active Raynaud's phenomenon(Confirmed) Active Leg swelling(Confirmed) Active Diagnosis Diagnosis Type Effective Dates Health Status Clinical Service Informant Emphysema/COPD Discharge Diagnosis 08/23/20 Leg swelling Discharge Diagnosis 08/23/20 Cardiac arrhythmia Discharge Diagnosis 08/23/20 Thoracic compression fracture Discharge Diagnosis 08/23/20 Social History Social History Type Response Smoking Status Current every day maria elena penn; Tobacco use times per day: smokes about 1.5 packs per day; entered on: 04/16/16 Sex
--- OUTSIDE RECORDS SUMMARY | 2023-08-21 08:45 | XMS_ITS | Continuity of Care Document ---
Author Name Unknown Organization [facility] Address [address] [place] [address]- Care Team Providers Care Bliss Press Operator Name Role Phone Graciela Nunez MD Primary Care Physician [phone] [facility] [facility] [place] 10/09/21 - 11/08/21 [facility] [address] [place], [place] [address] Attending Physician: Dennys Fabian Admitting Physician: Dennys [...] 23-valent vaccine 6 07/31/10 Recorded 1Result Comment: [id number] given w/out incident 2Location History: [place], [place] 3Admin Note: done @ dr jones office 4Location History: [facility] 5Location History: [facility] 6Location History: [facility] Medications aspirin 81 mg oral delayed [...] cm WT: 46.2 kg lifetime use, 11/07/21 9:15:00 EST, Supply Start Date: 11/07/21 Status: Ordered cholecalciferol 1000 intl units oral capsule 1 capsule = 25 mcg, By Mouth, Daily, Maintenance, 11/03/21 11:21:00 EST, Capsule, P Start Date: 11/03/21 Status: Ordered Colace sodium 100 mg oral capsule 100 mg, 1, capsule, By Mouth, 2 times a day, PRN, # 60 capsule, Refills 1, Tot. Refills 1, Maintenance, for constipation, 10/22/21 15:09:00 EST, Route to Pharmacy Electronically, [facility]#[id number], Partial fill upon patient request if the pr... Start Date: 10/22/21 Status: Ordered diltiazem 180 mg/24 hours oral capsule, extended release 180 mg, 1, capsule, By Mouth, Daily, # 30 capsule, Refills 0, Tot. Refills 0, Maintenance, 11/06/2209:09:00 EST, Route to Pharmacy Electronically, [facility] #[id number], Partial fill upon patient request if the prescription is for a schedule II... Start Date: 11/06/21 Status: Ordered duloxetine 30 mg oral enteric coated capsule 1 capsule = 30 mg, By Mouth, Daily, do not crush or chew, # 30 capsule, 3 Refills, Maintenance, 09/11/21 12:04:00 EST, CR Capsule, [facility] #[id number], Partial fill upon patient request if the prescription is for a schedule II opioid drug., 17... Start Date: 09/11/21 Status: Ordered folic acid 1 mg oral tablet 1 mg, 1, tablet, By Mouth, Daily, # 30 tablet, Refills 5, Tot. Refills 5, Maintenance, 01/31/21 16:35:00 EDT, Route to Pharmacy Electronically, [facility] #[id number], 170, cm, 10/02/20 10:06:00EST, Height, 56.3, kg, 11/24/19 22:58:00 EST, Dry W... Start Date: 01/31/21 Status: Ordered FOUR-PRONG CANE FOUR-PRONG CANE, See Instructions, # 1 each, Refills 0, Tot. Refills 0, Maintenance, use daily as needed for dx: osteoporosis ICD-10: M81.0 HT: 173 cm WT: 46.2 kg lifetime use, 11/07/21 9:17:00 EST, Supply Start Date: 11/07/21 Status: Ordered gabapentin 300 mg oral capsule 2, capsule, By Mouth, 3 times a day, # 180 capsule, Refills 1, Tot. Refills 1, Maintenance, 08/26/21 10:50:00 EDT, Route to Pharmacy Electronically, [facility] #[id number], 162.56, cm, 08/22/21 2:36:00 EDT, Height, 52.65, kg, 08/22/21 2:36:00 EDT... Start Date: 08/26/21 Status: Ordered LORazepam 0.5 mg oral tablet 1 tablet = 0.5 mg, By Mouth, 2 times a day, PRN as needed for anxiety, # 28 tablet, 0 Refills, Maintenance, 09/10/21 16:04:00 EST, [facility] #[id number], 170, cm, 08/30/21 17:40:00 EDT, Height,51.5, kg, 08/30/21 17:40:00 EDT, Dry Weight Start Date: 09/10/21 Status: Ordered MiraLax oral powder for reconstitution = 17 Gm, By Mouth, Daily, PRN Constipation, dissolve in water before taking, # 527 Gm, 0 Refills, Maintenance, 10/22/21 15:11:00 EST, REC Powder, [facility] #[id number], Partial fill upon patient request if the [...] 3 Refills, Maintenance, 03/13/21 13:26:00 EDT, Tablet, [facility] #60010, 170, cm, 10/02/20 10:06:00 EST, Height, 56.3, kg, 11/24/19 22:58:00 EST, Dry Weight Start Date: 03/13/21 Status: Ordered Senna 8.6 mg oral tablet 17.2 mg, 2, tablet, By Mouth, Daily at bedtime, PRN, # 100 tablet, Refills 0, Tot. Refills 0, Maintenance, for constipation, 10/22/21 15:09:00 EST, Route to Pharmacy Electronically, [facility] #[id number] Tablet, Partial fill upon patient request... Start Date: 10/22/21 Status: Ordered SHOWER CHAIR WITHOUT BACK SUPPORT SHOWER CHAIR WITHOUT BACK SUPPORT, See Instructions, # 1 each, Refills 0, Tot. Refills 0, Maintenance, use daily as needed for dx: osteoporosis ICD-10: M81.0 HT: 173 cm WT: 46.2 kg lifetime use, 11/07/21 9:17:00 EST, Supply Start Date: 11/07/21 Status: Ordered Spiriva HandiHaler 18 mcg Inhalation [...] Refills, Maintenance, 02/26/21 15:47:00 EDT, ER Tablet, [facility] #[id number], Partial fill upon patient requestif the prescription [...]
--- OUTSIDE RECORDS SUMMARY | 2023-08-21 08:45 | XMS_ITS | Continuity of Care Document ---
Author Name Unknown Organization [facility] Address [address] [place] [address]- Care Team Providers Care Chemical Project Engineer Name Role Phone Graciela Nunez MD Primary Care Physician [place] [facility] [place]22 [facility] [address], [place] [address] Allergies, Adverse Reactions, Alerts Substance [...] 23-valent vaccine 6 07/31/10 Recorded 1Result Comment: [id number] given w/out incident 2Location History: [place], [place] 3Admin Note: done @ dr jones office 4Location History: [facility] 5Location History: [facility] [...] 3 Refills, Maintenance, 04/09/22 9:54:00 EDT, Tablet, [facility] #[id number], Partial fill upon patient request if the prescription is for a schedule II opioid drug., 1 tablet By Mouth Daily, 170, cm, 06... Start Date: 04/09/22 Status: Ordered baclofen 10 mg oral tablet 10 mg, 1, tablet, By Mouth, Daily, PRN, # 14 tablet, Refills 2, Tot. Refills 2, Maintenance, Pain ,Moderate, 10/20/22 15:10:00 EST, Route to Pharmacy Electronically, [facility]/pharmacy #[id number], Partial fillupon patient request if the prescription is for a s... Start Date: 10/20/22 Stop Date: 12/01/22 Status: Ordered busPIRone 10 mg oral tablet 10 mg, 1, tablet, By Mouth, 3 times a day, # 90 tablet, Refills 3, Tot. Refills 3, Maintenance, 07/30/22 13:44:00 EDT, Route to Pharmacy Electronically, [facility]/pharmacy #[id number], new dosage, 170, cm, 02/04/22 11:19:00 EDT, Height, 44.1, kg, 12/20/21 16:05:0... Start Date: 07/30/22 Status: Ordered calcium (as carbonate)-vitamin D 500 mg-400 intl units oral tablet 1 tablet, By Mouth, 2 times a day, calcium 500/vitamin d 400 iu twice daily, # 60 tablet, 6 Refills, Maintenance, 02/11/22 10:15:00 EDT, Tablet, [facility] #[id number], Partial fill upon patientrequest if the prescription is for a schedule II op... Start Date: 02/11/22 Status: Ordered calcium-vitamin D 600 mg-400 intl units oral tablet 1 tablet, By Mouth, 2 times a day, # 60 tablet, 6 Refills, Maintenance, 05/15/22 16:21:00 EDT, Tablet, [facility] #[id number], Partial fill upon patient request if the prescription is for a schedule II opioid drug., 1 tablet By Mouth 2 times a da... Start Date: 05/15/22 Status: Ordered Colace sodium 100 mg oral capsule 100 mg, 1, capsule, By Mouth, 2 times a day, PRN, # 180 capsule, Refills 1, Tot. Refills 1, Maintenance, for constipation, 06/23/22 10:20:00 EDT, Route to Pharmacy Electronically, [facility]/pharmacy #[id number],prefers gel formulation, 170, cm, 02/04/22 11:19:00... Start Date: 06/23/22 Status: Ordered diltiazem 180 mg/24 hours oral capsule, extended release 180 mg, 1, capsule, By Mouth, Daily, # 30 capsule, Refills 0, Tot. Refills 0, Maintenance, 11/06/2209:09:00 EST, Route to Pharmacy Electronically, [facility] #[id number], Partial fill upon patient request if the prescription is for a schedule II... Start Date: 11/06/21 Status: Ordered Flonase 50 mcg/inh nasal spray 1 sprays, Nares, Both, Daily in AM, # 16 Gm, 4 Refills, Maintenance, 12/03/21 12:34:00 EST, [place], [facility] #[id number], Partial fill upon patient request if the prescription is for a scheduleII opioid drug., 1 sprays Nares, Both Daily in AM,... Start Date: 12/03/21 Status: Ordered folic acid 1 mg oral tablet 1 mg, 1, tablet, By Mouth, Daily, # 30 tablet, Refills 11, Tot. Refills 11, Maintenance, 02/25/22 16:15:00 EDT, Route to Pharmacy Electronically, [facility] #[id number], 170, cm, 02/04/22 11:19:00 EDT, Height, 44.1, [...] 08/13/22 13:03:00 EDT, Route to Pharmacy Electronically, [facility]/pharmacy #[id number], 170, cm, 02/04/22 11:19:00 EDT, Height, 44.1, kg, 12/20/21 16:05:00 EST, Dry Weight Start Date: 08/13/22 Status: Ordered Hair, Skin & Nails 5 mg oral capsule 1 capsule = 5 mg, By Mouth, Daily, # 90 capsule, 3 Refills, Maintenance, 02/19/22 12:29:00 EDT, [facility] #[id number], Partial fill upon patient request if the prescription is for a schedule IIopioid drug., 1 capsule By Mouth Daily, 170, cm, 04... Start Date: 02/19/22 Status: Ordered hydrOXYzine hydrochloride 10 mg oral tablet 1-2 TABLETS, By Mouth, 2 times a day, PRN NEEDED FOR ANXIETY, # 60 tablet, 5 Refills, Maintenance, 09/22/22 16:15:00 EST, [facility]/pharm[facility] #[id number], 170, cm, 02/04/22 11:19:00 EDT, Height, 44.1, kg, 12/20/21 16:05:00 EST, Dry Weight Start Date: 09/22/22 Status: Ordered lactulose 10 gm/15 ml oral syrup 15 mL = 10 Gm, By Mouth, Every 72 hours, PRN as needed for constipation, # 300 mL, 5 Refills, Maintenance, 03/19/22 14:45:00 EDT, Syrup, [facility] #[id number], Partial fill upon patient requestif the prescription is for a schedule II opioid ivonne... Start Date: 03/19/22 Status: Ordered LORazepam 0.5 mg oral tablet 1 tablet = 0.5 mg, By Mouth, 3 times a day, # 60 tablet, 3 Refills, Maintenance, 07/08/22 17:11:00 EDT, Tablet, [facility] #[id number], Partial fill upon patient request if the prescription is for a schedule II opioid drug., 170, cm, 02/04/22 11:19:00 EDT... Start Date: 07/08/22 Status: Ordered LORazepam 0.5 mg oral tablet 1 tablet = 0.5 mg, By Mouth, 3 times a day, # 60 tablet, 3 Refills, Maintenance, 09/18/22 16:44:00 EST, Tablet, [facility] #[id number], Partial fill upon patient request if [...] 10/22/21 15:09:00 EST, Route to Pharmacy Electronically, [facility] #[id number] Tablet, Partial fill upon patient request... Start [...] Refills, Maintenance, 02/26/21 15:47:00 EDT, ER Tablet, [facility] #[id number], Partial fill upon patient requestif the prescription [...] 11 Refills, Maintenance, 12/02/21 10:55:00 EST, Capsule, [facility] #[id number], Partial fill upon patient request if the [...] Team Personnel Name: Darian LUIS, Angie Position: [facility] RN Member Role: Primary Care Nurse Name: Milena ORTIZ, Morgan Hancock Position: [facility] Renal MD Member Role: Lifetime Consulting Physician Address: Address: [address] [place] [address], [address] Name: Graciela Nunez MD Position: [facility] Primary Care Physician Member Role: PCP Address: Address: [address] [address]- [place] Name: Luisa Storey RN Position: S RN Member Role: Primary Care Nurse Care Team Related Persons Name: LAZARUS OSBORNE Address: [place] [address] Name: KAVON NICOLE Address: [address] [place] [address] Name: , [facility]
--- OUTSIDE RECORDS SUMMARY | 2023-08-21 08:45 | XMS_ITS | Continuity of Care Document ---
Author Name Unknown Organization [facility] Address [address] [place] [id number]- Care Team Providers Care Interlocking And Signal Mechanic Name Role Phone Graciela Nunez MD Primary Care Physician Encounter [facility] Date(s): 10/02/20 - 11/10/[address] [address] Attending Physician: Ijeoma FLOWERS, Aspen [...] 23-valent vaccine 5 07/31/10 Recorded 1Location History: [place], [place] 2Admin Note: done @ dr jones office 3Location History: [facility] 4Location History: [facility] physicians [...] Replace Required Details, Route to Pharmacy Electronically, [facility] #[id number]... Start Date: 01/31/20 Status: Ordered folic acid 1 mg oral tablet 1 mg, 1, tablet, By Mouth, Daily, # 30 tablet, Refills 3, Tot. Refills 3, Maintenance, 01/18/20 10:43:00 EDT, Route to Pharmacy Electronically, [facility] #[id number], 170, cm, 12/13/19 13:51:00EST, Height, 56.3, kg, 11/24/19 22:58:00 EST, Dry W... Start Date: 01/18/20 Status: Ordered furosemide 20 mg oral tablet 1, tablet, By Mouth, Daily, PRN, # 90 tablet, Refills 0, Tot. Refills 0, Maintenance, NEEDED FORLEG SWELLING, 04/19/20 15:50:00 EDT, Route to Pharmacy Electronically, [facility] #[id number],170, cm, 12/13/19 13:51:00 EST, Height, 56.3, kg, 0... Start Date: 04/19/20 Status: Ordered gabapentin 300 mg oral capsule 600 mg, 2, capsule, By Mouth, 3 times a day, # 180 capsule, Refills 3, Tot. Refills 3, Maintenance,10/01/20 15:48:00 EST, Route to Pharmacy Electronically, [facility] #[id number], 170, cm, 12/13/19 13:51:00 EST, Height, 56.3, kg, 11/24/19 22:58:... Start Date: 10/01/20 Status: Ordered gabapentin 300 mg oral capsule See Instructions, TAKE 2 CAPSULES BY MOUTH three times per day, # 180 capsule, Refills 1, Instructions Replace Required Details, Route to Pharmacy Electronically, [facility] #[id number], 170, cm, 12/13/19 13:51:00 EST, Height, 56.3, [...] Refills, Maintenance, 01/29/20 10:50:00 EDT, XL Tablet, [facility] #[id number], 170, cm, 12/13/19 13:51:00 EST, Height, 56.3, [...] 3 Refills, Maintenance, 08/23/20 12:07:00 EDT, Tablet, [facility] #[id number], 170, cm, 12/13/19 13:51:00 EST, Height, 56.3, [...] 6 Refills, Maintenance, 06/17/20 16:11:00 EDT, Aerosol, [facility] #[id number], 170, cm, 12/13/19 13:51:00 EST, Height, 56.3, kg, 11/24/19 22:58:00 EST, Dry Weight Start Date: 06/17/20 Stop Date: 01/13/21 Status: Ordered Ventolin HFA 108 mcg/inh inhalation aerosol with adapter 2 puffs, Inhalation, 4 times a day, PRN for wheezing, # 1 each, 0 Refills, Maintenance, 10/02/20 10:55:00 EST, Aerosol, [facility]/pharmacy #[id number], 170, cm, 10/02/20 10:06:00 EST, Height, 56.3, kg, 11/24/19 22:58:00 EST, Dry Weight Start Date: 10/02/20 Status: Ordered Vitamin B1 100 mg oral tablet 1, tablet, By Mouth, Daily, # 30 tablet, Refills 11, Tot. Refills 0, Acute, 12/18/19 14:10:00 EST, Route to Pharmacy Electronically, [facility] #[id number], 170, cm, 12/13/19 13:51:00 EST, Height, 56.3, kg, 11/24/19 22:58:00 EST, Dry Weight Start Date: 12/18/19 Status: Ordered Zofran 4 mg oral tablet 1 tablet = 4 mg, By Mouth, 3 times a day, PRN nausea, # 30 tablet, 0 Refills, Maintenance, 209:17:00 EDT, Tablet, [facility] #[id number], 170, cm, 12/13/19 13:51:00 EST, Height, 56.3, [...]
--- OUTSIDE RECORDS SUMMARY | 2023-08-21 08:45 | XMS_ITS | Continuity of Care Document ---
Author Name Unknown Organization [facility] Address [address] [facility] [place] [address]- Care Team Providers Care Test Lead Application Testing Name Role Phone Graciela Nunez MD Primary Care Physician Encounter [facility] Date(s): 11/10/21 - 12/10/21 [facility] [address] [place] [address] [place], [place] [address] Allergies, Adverse Reactions, Alerts [...] 23-valent vaccine 6 07/31/10 Recorded 1Result Comment: [id number] given w/out incident 2Location History: [place], [place] 3Admin Note: done @ dr jones office 4Location History: [facility] 5Location History: [facility] [...] 10/22/21 15:09:00 EST, Route to Pharmacy Electronically, [facility]#[id number], Partial fill upon patient request if the pr... Start Date: 10/22/21 Status: Ordered diltiazem 180 mg/24 hours oral capsule, extended release 180 mg, 1, capsule, By Mouth, Daily, # 30 capsule, Refills 0, Tot. Refills 0, Maintenance, 11/06/2209:09:00 EST, Route to Pharmacy Electronically, [facility] #[id number], Partial fill upon patient request if the [...] Gm, 4 Refills, Maintenance, 12/03/21 12:34:00 EST, [place], [facility] #[id number], Partial fill upon patient request if the prescription is for a scheduleII opioid drug., 1 sprays Nares, Both Daily in AM,... Start Date: 12/03/21 Status: Ordered folic acid 1 mg oral tablet 1 mg, 1, tablet, By Mouth, Daily, # 30 tablet, Refills 5, Tot. Refills 5, Maintenance, 01/31/21 16:35:00 EDT, Route to Pharmacy Electronically, [facility] #[id number], 170, cm, 10/02/20 10:06:00EST, Height, 56.3, kg, [...] 08/26/21 10:50:00 EDT, Route to Pharmacy Electronically, [facility] #[id number], 162.56, cm, 08/22/21 2:36:00 EDT, Height, 52.65, kg, 08/22/21 2:36:00 EDT... Start Date: 08/26/21 Status: Ordered LORazepam 0.5 mg oral tablet 1 tablet = 0.5 mg, By Mouth, 2 times a day, PRN as needed for anxiety, # 28 tablet, 1 Refills, Maintenance, 12/02/21 10:54:00 EST, [facility] #[id number], 173, cm, 11/06/21 7:58:00 EST, Height, 46.2, kg, 10/29/21 15:33:00 EST, Dry Weight Start Date: 12/02/21 Status: Ordered MiraLax oral powder for reconstitution = 17 Gm, By Mouth, Daily, PRN Constipation, dissolve in water before taking, # 527 Gm, 0 Refills, Maintenance, 10/22/21 15:11:00 EST, REC Powder, [facility] #[id number], Partial fill upon patient request if the prescription is for a schedule II o... Start Date: 10/22/21 Status: Ordered multivitamin Multiple Vitamins oral tablet 1 tablet, By Mouth, Daily, # 30 tablet, 11 Refills, Maintenance, 11/26/21 13:34:00 EST, Tablet, [facility] #[id number], Partial fill upon patient request if the [...] 3 Refills, Maintenance, 03/13/21 13:26:00 EDT, Tablet, [facility] #[id number], 170, cm, 10/02/20 10:06:00 EST, Height, 56.3, kg, 11/24/19 22:58:00 EST, Dry Weight Start Date: 03/13/21 Status: Ordered Senna 8.6 mg oral tablet 17.2 mg, 2, tablet, By Mouth, Daily at bedtime, PRN, # 100 tablet, Refills 0, Tot. Refills 0, Maintenance, for constipation, 10/22/21 15:09:00 EST, Route to Pharmacy Electronically, [facility] #[id number] Tablet, Partial fill upon patient request... Start [...] Refills, Maintenance, 02/26/21 15:47:00 EDT, ER Tablet, [facility] #[id number], Partial fill upon patient requestif the prescription [...] 11 Refills, Maintenance, 12/02/21 10:55:00 EST, Capsule, [facility] #[id number], Partial fill upon patient request if the [...] Response Smoking Status Current every day sm fili; Tobacco use times per day: smokes about 1.5 packs per day; entered on: 04/16/16 Sex
[2023-08-21 09:49] LABS: Basophils Absolute Auto 0.1 X10*3/uL (0.0-0.2); Basophils Percent Auto 0.4 % (0-2); Hematocrit 35.4 % (37.0-47.0); Hemoglobin 10.9 g/dl (12.0-16.0); Imm Gran Abs Auto 1.09 X10*3/uL (0.00-0.03); Imm Gran Pct Auto 4.8 % (0.0-0.4); Lymphocytes Absolute Auto 0.7 X10*3/uL (1.2-4.9); Lymphocytes Percent Auto 3.1 % (20-40); MANUAL DIFF FLAG SCAN; Mean Corpuscular HGB Conc 30.8 g/dl (31.0-35.0); Mean Corpuscular Hemoglobin 29.9 pg (27.0-33.0); Mean Corpuscular Volume 97.3 fL (80.0-98.0); Mean Platelet Volume 9.4 fL (9.4-12.3); Monocytes Absolute Auto 0.2 X10*3/uL (0.1-1.2); Monocytes Percent Auto 1.1 % (2-11); NRBC Pct Auto 0.1 /100WBC (0.0-0.2); Neutrophils Absolute Auto 20.5 x10*3/uL (2.0-8.3); Neutrophils Percent Auto 90.6 % (45-73); Platelet Count 365 X10*3/uL (160-400); Red Blood Count 3.64 X10*6/uL (4.20-5.50); Red Cell Distribution Width 13.9 % (11.0-16.0); SCAN SMEAR FLAG 1; White Blood Count 22.7 X10*3/uL (4.8-10.8)
[2023-08-21 09:58] LABS: COVID-19 Test Positive (Negative); IDNOW Serial# 6674DD1D
[2023-08-21] MEDS: Furosemide 40 MG/4 ML VIAL IVPUSH (10:11)
[2023-08-21] MEDS: Piperacillin Sodium/Tazobactam 3.375 GM in 0.9 % Sodium Chloride 50 ML IV (10:13)
[2023-08-21 10:16] LABS: Troponin-I High Sensitivity 11.9 ng/L (<3.5-17.0)
[2023-08-21 10:22] LABS: Lactic Acid 3.8 mmol/L (0.5-2.0)
[2023-08-21 10:23] LABS: SLIDE REVIEW VERIFIED
--- NOTE | 2023-08-21 10:57 | PC.NURSE ---
pt brought in by ambulance from [facility]. she was found unresponsive by staff. per ems staff made several unsuccessful attempts to arouse pt. or to get an O2. sat. pt aroused after being sternal rubbed by medic, sat of low - mid 80s. pt was intubated in route to er.. pt arrived to ed intubated, was stabilized and extubated by Dr. Renae. pt put on bi-pap satting 88-90%. pt difficult stick, 20g iv inserted L back forearm. labs drawn. meds given as ordered. 16g Barnes catheter inserted. pt tolerated well. will continue to observe.
[2023-08-21 11:21] LABS: INTERNATIONAL NORM RATIO 1.5 (0.9-1.1); Prothrombin Time 17.8 SEC (11.1-13.3)
[2023-08-21 11:23] LABS: Alanine Aminotransferase 32 U/L (0-31); Albumin Level 3.3 g/dL (3.5-5.0); Alkaline Phosphatase 158 U/L (39-117); Anion Gap 16 (12-20); Aspartate Amino Transferase 54 U/L (5-31); Bilirubin Total 0.4 mg/dL (0.0-1.0); Blood Urea Nitrogen 12 mg/dL (9-16); Calcium 8.6 mg/dL (8.4-10.2); Carbon Dioxide 29 mmol/L (22-29); Chloride 97 mmol/L (96-108); Estimated Glomerular Filt Rate > 60; Glucose Random 136 mg/dL (60-115); Potassium 4.1 mmol/L (3.3-5.1); Sodium 138 mmol/L (135-145); Total Protein 5.9 g/dL (6.5-8.0)
[2023-08-21 11:26] LABS: B Type Natriuretic Peptide 422 pg/mL (<100)
[2023-08-21 11:46] LABS: Reflex Lactate? Lactic Acid Added
--- NOTE | 2023-08-21 11:54 | PHA.MEDREC ---
Pharmacy Consult ? Medication Reconciliation Pharmacy has completed the medication reconciliation. Patient recently discharged on 08/17; med rec completed by [facility] from facility med list. Used combination of previous med rec and discharge paperwork
[2023-08-21 12:03] LABS: VBG Base Excess 13.6 mmol/L; VBG HCO3 42 mmol/L (22-26); VBG pCO2 73 mmHg; VBG pH 7.36 (7.32-7.43); VBG pO2 58 mmHg
[2023-08-21 12:08] LABS: Venous Blood Gas Refer to POC result
[2023-08-21 12:15] LABS: ~Lactic Acid-LAB USE ONLY 1.7 mmol/L (0.5-2.0)
--- NOTE | 2023-08-21 13:36 | P.HPCC_ITS ---
History of Present Illness Date of Service: 08/21/23 Attending physician on admission: Imani Polanco Chief Complaint: Dyspnea Patient is a 62 Y F, COPD c/b chronic mixed respiratory failure, on 2L NC, CHF, atrial fibrillation, on apixaban, resides at nursing facility, recent admission/discharge for COPD exacerbation, re-presenting w/ dyspnea, intubated by EMS, found to be alert, extubated by ED Review of Systems 2 Review of Systems: Yes all other systems are reviewed and are negative Constitutional: Constitutional: Reports as per HPI Eyes: Eyes: Reports as per HPI Cardiovascular: Cardiovascular: Reports as per HPI Respiratory: Respiratory: Reports as per HPI Gastrointestinal: Gastrointestinal: Reports as per HPI Genitourinary: Genitourinary: Reports as per HPI Musculoskeletal: Musculoskeletal: Reports as per HPI Integumentary/Breasts: Skin/Breast: Reports as per HPI Neurologic: Reports as per HPI Psychiatric: Psychiatric: Reports as per HPI Endocrine: Endocrine: Reports as per HPI Hematologic/Lymphatic: Hematologic/Lymphatic: Reports as per HPI Allergic/Immunologic: Allergic/Immunologic: Reports as per HPI PMFSH Past Medical History Medical History (Updated 08/21/23 @ 16:35 by Imani Polanco MD) Chronic a-fib Decubitus ulcer of back, stage 3 Oxygen dependent History of chronic carbon dioxide retention Compression fracture of thoracic vertebra Breast implant status CHF (congestive heart failure) Pressure ulcer COPD (chronic obstructive pulmonary disease) Osteoporosis Social History Social History Household Members: Other Housing: [facility] Patient Tobacco Use Status: Former Tobacco user Tobacco use type: Cigarette Smoked in Last 30 Days: No Use of substances other than those prescribed or required for medical reasons: No Have you been hit, kicked, punched, or otherwise hurt by someone within the past year? If so, by whom?: No Do you feel safe in your current relationship?: No Current Relationship Is there a partner from a previous relationship who is making you feel unsafe now?: No Are you made to feel afraid or neglected: No Advance Directives: Yes Advance Directives on File: Yes Advance Directives Date on File: 08/18/23 Do you have thoughts of harming others: None Do you have a plan to hurt others: No Plan Recently lost weight without trying: No Patient : No : No service: No Meds Allergies Allergy/AdvReac Type Severity Reaction Status Date / Time codeine Allergy Intermediate Anaphylaxis Verified 08/13/23 14:29 morphine Allergy Anaphylaxis Verified 08/13/23 14:21 Home Medications Medication Instructions Recorded Confirmed Last Taken Type acetaminophen 325 mg tablet 650 mg PO Q6H PRN temp > 08/13/23 08/21/23 Unknown History 100/general discomfort albuterol sulfate 90 mcg/actuation 1 inh inhalation QID PRN Wheezing 08/13/23 08/21/23 Unknown History aerosol inhaler (Ventolin HFA) apixaban 5 mg tablet 5 mg PO BID 08/13/23 08/21/23 Unknown History aspirin 81 mg tablet,delayed 81 mg PO DAILY 08/13/23 08/21/23 Unknown History release atorvastatin 20 mg tablet 20 mg PO BEDTIME 08/13/23 08/21/23 Unknown History bisacodyl 10 mg rectal suppository 10 mg TX Q3D PRN Constipation 08/13/23 08/21/23 Unknown History (Dulcolax (bisacodyl)) cholecalciferol (vitamin D3) 25 25 mcg PO DAILY 08/13/23 08/21/23 Unknown History mcg (1,000 unit) tablet collagenase clostridium histo. 250 1 appl topical DAILY 08/13/23 08/21/23 Unknown History unit/gram topical ointment (Santyl) digoxin 250 mcg (0.25 mg) tablet 250 mcg PO DAILY 08/13/23 08/21/23 Unknown History diltiazem HCl 180 mg 180 mg PO DAILY 08/13/23 08/21/23 Unknown History tablet,extended release 24 hr (Cardizem LA) fluticasone 250 mcg-salmeterol 50 1 inh inhalation BID 08/13/23 08/21/23 Unknown History mcg/dose blistr powdr for inhalation (Advair Diskus) folic acid 1 mg tablet 1 mg PO DAILY 08/13/23 08/21/23 Unknown History furosemide 40 mg tablet 40 mg PO DAILY 08/13/23 08/21/23 Unknown History gabapentin 300 mg capsule 600 mg PO TID 08/13/23 08/21/23 Unknown History guaifenesin 100 mg/5 mL oral liquid 200 mg PO Q8H PRN Cough 08/13/23 08/21/23 Unknown History hydroxyzine HCl 10 mg tablet 30 mg PO TID PRN Anxiety 08/13/23 08/21/23 Unknown History ipratropium 0.5 mg-albuterol 3 mg 3 ml inhalation Q6H PRN SHORTNESS 08/13/23 08/21/23 Unknown History (2.5 mg base)/3 mL nebulization OF BREATH/WHEEZE soln lactulose 10 gram/15 mL oral 20 g PO Q12H PRN Constipation 08/13/23 08/21/23 Unknown History solution lorazepam 0.5 mg tablet 0.5 mg PO BID PRN Anxiety 08/13/23 08/21/23 Unknown History magnesium hydroxide 400 mg/5 mL 30 ml PO BEDTIME PRN Constipation 08/13/23 08/21/23 Unknown History oral suspension (Milk of Magnesia) melatonin 3 mg tablet 3 mg PO BEDTIME 08/13/23 08/21/23 Unknown History metoprolol succinate 50 mg 50 mg PO BID 08/13/23 08/21/23 Unknown History tablet,extended release 24 hr multivitamin 1 tab PO DAILY 08/13/23 08/21/23 Unknown History nicotine 21 mg/24 hr daily 1 patch transdermal DAILY 08/13/23 08/21/23 Unknown History transdermal patch oxycodone 5 mg tablet 2.5 mg PO Q6H PRN Pain 08/13/23 08/21/23 Unknown History pantoprazole 40 mg tablet,delayed 40 mg PO DAILY 08/13/23 08/21/23 Unknown History release (Protonix) sennosides 8.6 mg-docusate sodium 2 tab-cap PO BEDTIME 08/13/23 08/21/23 Unknown History 50 mg tablet (Senna Plus) sertraline 25 mg tablet 25 mg PO DAILY 08/13/23 08/21/23 Unknown History sodium phosphates 19 gram-7 118 ml TX DAILY PRN Constipation 08/13/23 08/21/23 Unknown History gram/118 mL enema (Fleet Enema) thiamine HCl (vitamin B1) 100 mg 100 mg PO DAILY 08/13/23 08/21/23 Unknown History tablet umeclidinium 62.5 mcg/actuation 1 inh inhalation DAILY 08/13/23 08/21/23 Unknown History blister powder for inhalation (Incruse Ellipta) Physical Exam 2 Vital Signs: Vital Signs: Last Vital Signs Temp 98.6 F 08/21/23 10:00 Pulse 94 08/21/23 11:51 Resp 20 08/21/23 12:14 BP 116/55 L 08/21/23 11:51 Pulse Ox 97 08/21/23 11:51 O2 Del Method BiPAP 08/21/23 11:51 O2 Flow Rate 50 08/21/23 11:51 BMI result Body Mass Index 18.6 Const: General: cooperative, comfortable, no acute distress, well developed, alert and awake Orientation/consciousness: patient oriented x3 HEENT: Head: Yes normal to inspection Eyes: General: appearance normal, both eyes and all related structures Neck: Neck: Yes normal visual inspection, Yes no meningeal signs and Yes supple Chest: Chest palpation & inspection: normal inspection of the chest Resp: Other: no rales, rhonchi, wheezing Effort & Inspection: normal respiratory effort Cardio: Rhythm: abnormal rhythm GI: Inspection: Yes normal to inspection, No Abdominal wall edema and No distended Palpation (GI): Soft to palpation, not firm, nontender, no guarding and not rigid : General: Yes no CVA tenderness External Female Exam: normal external appearance Back/Spine/Pelvis: Back: no CVA tenderness Skin: General skin exam: no rashes or lesions noted Neuro: General: patient oriented x3, moves all extremities, no meningeal signs and no focal motor deficits Extrem: General: Yes normal to inspection and Yes no clubbing, cyanosis or edema Psych: Appearance: grossly normal Results Labs 08/21/23 09:43 08/21/23 15:42 Labs: Laboratory Results - last 24 hr 08/21/23 08/21/23 08/21/23 08:25 09:43 10:53 MCV 97.3 MCH 29.9 MCHC 30.8 L RDW 13.9 Plt Count 365 MPV 9.4 Immature Gran % (Auto) 4.8 H Neut % (Auto) 90.6 H Lymph % (Auto) 3.1 L [place] % (Auto) 1.1 L Eos % (Auto) 0.0 Baso % (Auto) 0.4 Lymph # (Auto) 0.7 L [place] # (Auto) 0.2 Eos # (Auto) 0.0 Baso # (Auto) 0.1 Abs Immat Gran (auto) 1.09 H Absolute Neuts (auto) 20.5 H Absolute Nucleated RBC 0.020 H Nucleated RBC % (auto) 0.1 Smear Tech's Comments VERIFIED PT 17.8 H INR 1.5 H VBG pH VBG pCO2 VBG pO2 VBG HCO3 VBG O2 Saturation VBG Base Excess Anion Gap 16 Estim Creat Clear Calc 92.0 Estimated GFR > 60 POC Glucose 197 H Random Glucose 136 H Lactic Acid 3.8 H* Lactic Acid F/U @ 2Hr Calcium 8.6 D Total Bilirubin 0.4 AST 54 H ALT 32 H Alkaline Phosphatase 158 H B-Natriuretic Peptide 422 H Total Protein 5.9 L Albumin 3.3 L COVID-19 ([facility]) Positive A COVID-19 Clin Com See Note 08/21/23 08/21/23 11:54 11:57 MCV MCH MCHC RDW Plt Count MPV Immature Gran % (Auto) Neut % (Auto) Lymph % (Auto) [place] % (Auto) Eos % (Auto) Baso % (Auto) Lymph # (Auto) [place] # (Auto) Eos # (Auto) Baso # (Auto) Abs Immat Gran (auto) Absolute Neuts (auto) Absolute Nucleated RBC Nucleated RBC % (auto) Smear Tech's Comments PT INR VBG pH 7.36 VBG pCO2 73 VBG pO2 58 VBG HCO3 42 H VBG O2 Saturation 83.0 VBG Base Excess 13.6 Anion Gap Estim Creat Clear Calc Estimated GFR POC Glucose Random Glucose Lactic Acid Lactic Acid F/U @ 2Hr 1.7 Calcium Total Bilirubin AST ALT Alkaline Phosphatase B-Natriuretic Peptide Total Protein Albumin COVID-19 ([facility]) COVID-19 Clin Com Imaging Radiologist's Impressions: Impressions Chest X-Ray 08/21/23 08:50 IMPRESSION: 1. Small bilateral pleural effusions with subjacent atelectasis. 2. Chronic emphysematous changes. 3. Interstitial prominence. Abdomen Ultrasound 08/21/23 12:52 IMPRESSION: Despite positive Vang sign no sonographic evidence to suggest cholecystitis Assessment and Plan (1) Pneumonia due to COVID-19 virus: Status: Acute (2) COPD (chronic obstructive pulmonary disease): Status: Acute Plan Patient is a 62 Y F, COPD c/b chronic mixed respiratory failure, on 2L NC, CHF, atrial fibrillation, on apixaban, resides at nursing facility, recent admission/discharge for COPD exacerbation, re-presenting p/w dyspnea, intubated by EMS, extubated by ED, though w/ continued dyspnea, on BiPAP, prompting ICU admission N: alert, oriented; no acute issues CV: hemodynamically stable; CHF, though unlikely in overt CHF exacerbation; diuresis w/ furosemide 40 mg IV daily; atrial fibrillation, to resume home medications as tolerated R: acute on chronic respiratory failure, usually on 2L NC, now on 5L NC; likey COPD exacerbation; duonebs, dexamethasone, ceftriaxone, azithromycin; COVID positive, dexamethasone GI: new transaminitis; though reassuring RUQ US : no acute issues; continue to monitor electrolytes in setting of diuresis H: leukocytosis, likely d/t COVID; follow-up procalcitonin ID: empiric ceftriaxone, azithromycin given c/f severe COPD exacerbation E: insulin sliding scale Time Spent With Patient Time: Total time managing care of this patient today ____ minutes.
[2023-08-21 15:52] LABS: VBG Base Excess 17.6 mmol/L; VBG HCO3 44 mmol/L (22-26); VBG pCO2 60 mmHg; VBG pH 7.46 (7.32-7.43); VBG pO2 46 mmHg
[2023-08-21] MEDS: dexAMETHasone sod phosphate 4 MG/ML VIAL 6 MG IVPUSH (15:59)
[2023-08-21 16:19] LABS: Alanine Aminotransferase 30 U/L (0-31); Albumin Level 3.2 g/dL (3.5-5.0); Alkaline Phosphatase 135 U/L (39-117); Anion Gap 15 (12-20); Aspartate Amino Transferase 39 U/L (5-31); Bilirubin Total 0.3 mg/dL (0.0-1.0); Blood Urea Nitrogen 15 mg/dL (9-16); Calcium 8.6 mg/dL (8.4-10.2); Carbon Dioxide 34 mmol/L (22-29); Chloride 96 mmol/L (96-108); Creatinine Clr Calc Pharmacy 95.7; Estimated Glomerular Filt Rate > 60; Glucose Random 99 mg/dL (60-115); Potassium 4.1 mmol/L (3.3-5.1); Sodium 141 mmol/L (135-145); Total Protein 5.5 g/dL (6.5-8.0)
[2023-08-21 16:39] LABS: Procalcitonin 2.37 ng/mL
[2023-08-21] MEDS: Azithromycin 500 MG in 0.9 % Sodium Chloride 250 ML 125 MG IV (17:03)
[2023-08-21] MEDS: Digoxin 0.25 MG TABLET PO (17:03)
--- NOTE | 2023-08-21 18:58 | HO.SKINPHOTO ---
Location: Category: Stage: Length: Width: Depth: cm Location: Category: Stage: Length: Width: Depth: cm Location: Category: Stage: Length: Width: Depth: cm Location: Category: Stage: Length: Width: Depth: cm Location: Category: Stage: Length: Width: Depth: cm Location: Category: Stage: Length: Width: Depth: cm
[2023-08-21] MEDS: cefTRIAXone sodium 1 GM in 0.9 % Sodium Chloride 50 ML IV (19:47)
[2023-08-21] MEDS: Metoprolol Succinate ER 50 MG TAB.ER.24H PO (20:47)
[2023-08-21] MEDS: Apixaban 5 MG TABLET PO (20:47)
[2023-08-22] VITALS (20 sets, daily range): BP systolic 127–167; BP diastolic 58–99; PULSE 61–120; RESP 17–30; TEMP 35.9–36.5; O2SAT 92–98; BMI 17.7
[2023-08-22 05:41] LABS: VBG Base Excess 15.8 mmol/L; VBG HCO3 39 mmol/L (22-26); VBG pCO2 45 mmHg; VBG pH 7.55 (7.32-7.43); VBG pO2 65 mmHg
[2023-08-22 05:51] LABS: Venous Blood Gas Refer to POC result
[2023-08-22] MEDS: Omeprazole 20 MG CAPSULE.DR PO (05:51)
[2023-08-22 05:52] LABS: Basophils Percent Auto 0.1 % (0-2); Hematocrit 32.8 % (37.0-47.0); Hemoglobin 10.5 g/dl (12.0-16.0); Imm Gran Abs Auto 0.28 X10*3/uL (0.00-0.03); Imm Gran Pct Auto 1.9 % (0.0-0.4); Lymphocytes Absolute Auto 0.6 X10*3/uL (1.2-4.9); Lymphocytes Percent Auto 3.7 % (20-40); MANUAL DIFF FLAG SCAN; Mean Corpuscular Hemoglobin 29.7 pg (27.0-33.0); Mean Corpuscular Volume 92.9 fL (80.0-98.0); Mean Platelet Volume 9.5 fL (9.4-12.3); Monocytes Absolute Auto 0.4 X10*3/uL (0.1-1.2); Monocytes Percent Auto 2.5 % (2-11); Neutrophils Absolute Auto 13.8 x10*3/uL (2.0-8.3); Neutrophils Percent Auto 91.8 % (45-73); Platelet Count 297 X10*3/uL (160-400); Red Blood Count 3.53 X10*6/uL (4.20-5.50); Red Cell Distribution Width 13.8 % (11.0-16.0); SCAN SMEAR FLAG 1
[2023-08-22 06:22] LABS: SLIDE REVIEW VERIFIED
--- NOTE | 2023-08-22 08:12 | PM.CCPN ---
Subjective Subjective Date of Service: 08/22/23 Interval History: no interval overnight events Critical Care Time (minutes): 60 Physical Exam Vital Signs: Vital Signs: Last Vital Signs Temp 97.7 F 08/22/23 08:00 Pulse 92 08/22/23 08:00 Resp 18 08/22/23 08:00 BP 157/69 H 08/22/23 08:00 Pulse Ox 98 08/22/23 08:00 O2 Del Method Nasal Cannula 08/22/23 08:00 O2 Flow Rate 3 08/22/23 08:00 FiO2 30 08/22/23 04:00 BMI result Body Mass Index 17.7 Const: General: cooperative, healthy appearing, comfortable, no acute distress, alert, awake and Physically active Orientation/consciousness: patient oriented x3 HEENT: Head: Yes normal to inspection, Yes normocephalic and Yes atraumatic Eyes: General: appearance normal, both eyes and all related structures Neck: Neck: Yes normal visual inspection and Yes supple Chest: Chest palpation & inspection: normal inspection of the chest Resp: Other: no rales, rhonchi, wheezing Effort & Inspection: normal respiratory effort and able to speak in complete sentences Cardio: Rate: regular rate Rhythm: regular rhythm GI: Inspection: Yes normal to inspection Skin: General skin exam: no rashes or lesions noted Neuro: General: patient oriented x3, moves all extremities and no focal motor deficits Extrem: General: Yes normal to inspection and Yes no clubbing, cyanosis or edema Psych: Appearance: grossly normal Objective Data Labs 08/22/23 05:36 08/21/23 15:42 Labs: Laboratory Results - last 24 hr 08/21/23 08/21/23 08/21/23 08:25 09:42 09:43 WBC 22.7 H RBC 3.64 L Hgb 10.9 L Hct 35.4 L MCV 97.3 MCH 29.9 MCHC 30.8 L RDW 13.9 Plt Count 365 MPV 9.4 Immature Gran % (Auto) 4.8 H Neut % (Auto) 90.6 H Lymph % (Auto) 3.1 L [place] % (Auto) 1.1 L Eos % (Auto) 0.0 Baso % (Auto) 0.4 Lymph # (Auto) 0.7 L [place] # (Auto) 0.2 Eos # (Auto) 0.0 Baso # (Auto) 0.1 Abs Immat Gran (auto) 1.09 H Absolute Neuts (auto) 20.5 H Absolute Nucleated RBC 0.020 H Nucleated RBC % (auto) 0.1 Smear Tech's Comments VERIFIED Hold Purple Top PT INR VBG pH VBG pCO2 VBG pO2 VBG HCO3 VBG O2 Saturation VBG Base Excess Sodium Potassium Chloride Carbon Dioxide Anion Gap BUN Creatinine Estim Creat Clear Calc Estimated GFR POC Glucose 197 H Random Glucose Lactic Acid 3.8 H* Lactic Acid F/U @ 2Hr Calcium Total Bilirubin AST ALT Alkaline Phosphatase Troponin I High Sens 11.9 B-Natriuretic Peptide Total Protein Albumin Procalcitonin COVID-19 ([facility]) Positive A [employer] See Note 08/21/23 08/21/23 08/21/23 10:53 11:54 11:57 WBC RBC Hgb Hct MCV MCH MCHC RDW Plt Count MPV Immature Gran % (Auto) Neut % (Auto) Lymph % (Auto) [place] % (Auto) Eos % (Auto) Baso % (Auto) Lymph # (Auto) [place] # (Auto) Eos # (Auto) Baso # (Auto) Abs Immat Gran (auto) Absolute Neuts (auto) Absolute Nucleated RBC Nucleated RBC % (auto) Smear Tech's Comments Hold Purple Top PT 17.8 H INR 1.5 H VBG pH 7.36 VBG pCO2 73 VBG pO2 58 VBG HCO3 42 H VBG O2 Saturation 83.0 VBG Base Excess 13.6 Sodium 138 Potassium 4.1 D Chloride 97 Carbon Dioxide 29 Anion Gap 16 BUN 12 Creatinine 0.51 Estim Creat Clear Calc 92.0 Estimated GFR > 60 POC Glucose Random Glucose 136 H Lactic Acid Lactic Acid F/U @ 2Hr 1.7 Calcium 8.6 D Total Bilirubin 0.4 AST 54 H ALT 32 H Alkaline Phosphatase 158 H Troponin I High Sens B-Natriuretic Peptide 422 H Total Protein 5.9 L Albumin 3.3 L Procalcitonin COVID-19 ([facility]) [email or web address] 08/21/23 08/21/23 08/21/23 15:42 15:45 15:46 WBC RBC Hgb Hct MCV MCH MCHC RDW Plt Count MPV Immature Gran % (Auto) Neut % (Auto) Lymph % (Auto) [place] % (Auto) Eos % (Auto) Baso % (Auto) Lymph # (Auto) [place] # (Auto) Eos # (Auto) Baso # (Auto) Abs Immat Gran (auto) Absolute Neuts (auto) Absolute Nucleated RBC Nucleated RBC % (auto) Smear Tech's Comments Hold Purple Top SEE NOTE PT INR VBG pH 7.46 H VBG pCO2 60 VBG pO2 46 VBG HCO3 44 H VBG O2 Saturation 75.0 VBG Base Excess 17.6 Sodium 141 Potassium 4.1 Chloride 96 Carbon Dioxide 34 H Anion Gap 15 BUN 15 Creatinine 0.49 L Estim Creat Clear Calc 95.7 Estimated GFR > 60 POC Glucose Random Glucose 99 Lactic Acid Lactic Acid F/U @ 2Hr Calcium 8.6 Total Bilirubin 0.3 AST 39 H ALT 30 Alkaline Phosphatase 135 H Troponin I High Sens B-Natriuretic Peptide Total Protein 5.5 L Albumin 3.2 L Procalcitonin 2.37 COVID-19 ([facility]) [employer] 08/22/23 08/22/23 05:35 05:36 WBC 15.0 H RBC 3.53 L Hgb 10.5 L Hct 32.8 L MCV 92.9 MCH 29.7 MCHC 32.0 RDW 13.8 Plt Count 297 MPV 9.5 Immature Gran % (Auto) 1.9 H Neut % (Auto) 91.8 H Lymph % (Auto) 3.7 L [place] % (Auto) 2.5 Eos % (Auto) 0.0 Baso % (Auto) 0.1 Lymph # (Auto) 0.6 L [place] # (Auto) 0.4 Eos # (Auto) 0.0 Baso # (Auto) 0.0 Abs Immat Gran (auto) 0.28 H Absolute Neuts (auto) 13.8 H Absolute Nucleated RBC 0.000 Nucleated RBC % (auto) 0.0 Smear Tech's Comments VERIFIED Hold Purple Top PT INR VBG pH 7.55 H VBG pCO2 45 VBG pO2 65 VBG HCO3 39 H VBG O2 Saturation 92.0 VBG Base Excess 15.8 Sodium Potassium Chloride Carbon Dioxide Anion Gap BUN Creatinine Estim Creat Clear Calc Estimated GFR POC Glucose Random Glucose Lactic Acid Lactic Acid F/U @ 2Hr Calcium Total Bilirubin AST ALT Alkaline Phosphatase Troponin I High Sens B-Natriuretic Peptide Total Protein Albumin Procalcitonin COVID-19 ([facility]) COVID-19 Clin Com Progress Note: A&P Assessment and plan (1) COPD (chronic obstructive pulmonary disease): Status: Acute (2) Congestive heart failure (CHF): Status: Acute (3) COVID-19: Status: Acute Plan Patient is a 62 Y F, COPD c/b chronic mixed respiratory failure, on 5L NC AM, CPAP PM, CHF, atrial fibrillation, on apixaban, resides at nursing facility, recent admission/discharge for COPD exacerbation, re-presenting p/w dyspnea, intubated by EMS, extubated by ED, though w/ continued dyspnea, on BiPAP, prompting ICU admission N: alert, oriented; no acute issues CV: hemodynamically stable; CHF, though unlikely in overt CHF exacerbation; diuresis w/ furosemide 40 mg IV daily; atrial fibrillation, to resume home medications as tolerated R: acute on chronic respiratory failure, at baseline 5L NC; likey COPD exacerbation; duonebs, dexamethasone, ceftriaxone, azithromycin; COVID positive, dexamethasone; of note, patient on CPAP PM GI: new transaminitis; though reassuring RUQ US, continue to monitor : no acute issues; continue to monitor electrolytes in setting of diuresis H: leukocytosis, likely d/t COVID; procalcitonin elevated, which may suggest bacterial superinfection; to continue ceftriaxone ID: empiric ceftriaxone, azithromycin given c/f severe COPD exacerbation E: insulin sliding scale Quality Stroke Does the patient have a stroke diagnosis?: No VTE Prior VTE?: No VTE Risk Level:: Medical - moderate - high VTE Device Contraindication: N/A - Device Ordered VTE Drug Contraindication: N/A - Med Ordered
[2023-08-22] MEDS: Metoprolol Succinate ER 50 MG TAB.ER.24H PO ×2 (08:51→20:59)
[2023-08-22] MEDS: Sertraline HCL 25 MG TABLET PO (08:51)
[2023-08-22] MEDS: Digoxin 0.25 MG TABLET PO (08:51)
[2023-08-22] MEDS: dexAMETHasone sod phosphate 4 MG/ML VIAL 6 MG IVPUSH (08:51)
[2023-08-22] MEDS: Atorvastatin Calcium 20 MG TABLET PO (08:51)
[2023-08-22] MEDS: Aspirin 81 MG TAB.CHEW PO (08:51)
[2023-08-22] MEDS: Furosemide 40 MG/4 ML VIAL IVPUSH (08:51)
[2023-08-22] MEDS: Apixaban 5 MG TABLET PO ×2 (08:51→20:59)
[2023-08-22] MEDS: dilTIAZem HCL CD 240 MG CAP.ER.DEG PO (10:11)
[2023-08-22 15:24] LABS: Alanine Aminotransferase 28 U/L (0-31); Alkaline Phosphatase 118 U/L (39-117); Anion Gap 18 (12-20); Aspartate Amino Transferase 27 U/L (5-31); Bilirubin Total 0.4 mg/dL (0.0-1.0); Blood Urea Nitrogen 16 mg/dL (9-16); Calcium 9.2 mg/dL (8.4-10.2); Carbon Dioxide 31 mmol/L (22-29); Chloride 96 mmol/L (96-108); Creatinine Clr Calc Pharmacy 103.7; Estimated Glomerular Filt Rate > 60; Glucose Random 102 mg/dL (60-115); Potassium 4.1 mmol/L (3.3-5.1); Sodium 141 mmol/L (135-145); Total Protein 5.5 g/dL (6.5-8.0)
--- NOTE | 2023-08-22 16:05 | MHC.CM.PN ---
IMM 08/22/23 delivered to HCP via phone. Left at bedside at HCP request. Information for this assessment was obtained from the HCP. Additional info gathered by review of the EMR. Patient is from [facility] (bed hold) DX Respiratory failure, Covid+. She requires assist + supervision with ADLs. She has a walker and WC. A HCP is on file. DP return to [facility] via BLS. Patient is planned for transfer from ICU to C.
[2023-08-22] MEDS: cefTRIAXone sodium 1 GM in 0.9 % Sodium Chloride 50 ML IV (18:02)
[2023-08-23] VITALS (7 sets, daily range): BP systolic 125–155; BP diastolic 67–78; PULSE 65–109; RESP 16–20; TEMP 36.1–37.2; O2SAT 95–98; BMI 21.4
--- NOTE | 2023-08-23 04:56 | PC.NURSE ---
pt refusing CPAP from RN and Respiratory therapist. pt eduated on need for CPAP and continued to refuse. pt is voiding post removal of Barnes catheter today. she is incontinet and a purewick is in place.
[2023-08-23] MEDS: Omeprazole 20 MG CAPSULE.DR PO (05:33)
[2023-08-23 07:21] LABS: VBG Base Excess 23.6 mmol/L; VBG HCO3 49 mmol/L (22-26); VBG pCO2 58 mmHg; VBG pH 7.53 (7.32-7.43); VBG pO2 76 mmHg
[2023-08-23 07:26] LABS: Venous Blood Gas Refer to POC result
[2023-08-23 07:27] LABS: Basophils Percent Auto 0.1 % (0-2); Eosinophils Percent Auto 0.1 % (0-4); Hematocrit 32.7 % (37.0-47.0); Hemoglobin 10.7 g/dl (12.0-16.0); Imm Gran Abs Auto 0.17 X10*3/uL (0.00-0.03); Lymphocytes Absolute Auto 0.7 X10*3/uL (1.2-4.9); Lymphocytes Percent Auto 3.7 % (20-40); MANUAL DIFF FLAG SCAN; Mean Corpuscular HGB Conc 32.7 g/dl (31.0-35.0); Mean Corpuscular Hemoglobin 29.6 pg (27.0-33.0); Mean Corpuscular Volume 90.6 fL (80.0-98.0); Mean Platelet Volume 9.5 fL (9.4-12.3); Monocytes Absolute Auto 0.7 X10*3/uL (0.1-1.2); Neutrophils Absolute Auto 15.9 x10*3/uL (2.0-8.3); Neutrophils Percent Auto 91.1 % (45-73); Platelet Count 315 X10*3/uL (160-400); Red Blood Count 3.61 X10*6/uL (4.20-5.50); Red Cell Distribution Width 13.7 % (11.0-16.0); SCAN SMEAR FLAG 1; White Blood Count 17.5 X10*3/uL (4.8-10.8)
[2023-08-23 07:45] LABS: SLIDE REVIEW VERIFIED
[2023-08-23] MEDS: Aspirin 81 MG TAB.CHEW PO (09:36)
[2023-08-23] MEDS: Apixaban 5 MG TABLET PO ×2 (09:36→20:44)
[2023-08-23] MEDS: Atorvastatin Calcium 20 MG TABLET PO (09:36)
[2023-08-23] MEDS: Digoxin 0.25 MG TABLET PO (09:36)
[2023-08-23] MEDS: Furosemide 40 MG TABLET PO (09:36)
[2023-08-23] MEDS: dilTIAZem HCL CD 240 MG CAP.ER.DEG PO (09:36)
[2023-08-23] MEDS: Metoprolol Succinate ER 50 MG TAB.ER.24H PO ×2 (09:37→20:44)
[2023-08-23] MEDS: Sertraline HCL 25 MG TABLET PO (09:37)
[2023-08-23] MEDS: dexAMETHasone sod phosphate 4 MG/ML VIAL 6 MG IVPUSH (09:37)
--- NOTE | 2023-08-23 11:45 | P.PNIM_ITS ---
Subjective Subjective Date of Service: 08/23/23 Review of Systems Follow up Resp failure still with some sob Physical Exam 2 Vital Signs: Vital Signs: Last Vital Signs Temp 97.9 F 08/23/23 11:07 Pulse 84 08/23/23 11:07 Resp 18 08/23/23 11:07 BP 155/67 H 08/23/23 11:07 Pulse Ox 97 08/23/23 11:07 O2 Del Method Nasal Cannula 08/23/23 11:07 O2 Flow Rate 2 08/23/23 11:07 FiO2 30 08/22/23 04:00 BMI result Body Mass Index 21.4 Appearing in no acute distress lung sounds are clear to auscultation heart regular rate rhythm, clear S1, S2 positive bowel sounds, abdomen is soft, nontender neuro patient is alert x3, no focal deficits Objective Data Active Medications Albuterol/Ipratropium (Albuterol/Iprat 2.5/0.5mg 3 Ml Ampul.Neb) 3 ml INHALE RQ4H WHILE AWAKE [facility] Last Admin: 08/23/23 10:53 Dose: Not Given Documented By: GEOVANNA Non-Admin Reason: Patient Refused Apixaban (Apixaban 5 Mg Tablet) 5 mg PO BID [facility] Last Admin: 08/23/23 09:36 Dose: 5 mg Documented By: HELLEN Aspirin (Aspirin 81 Mg Tab.Chew) 81 mg PO DAILY [facility] Last Admin: 08/23/23 09:36 Dose: 81 mg Documented By: HELLEN Atorvastatin Calcium (Atorvastatin Calcium 20 Mg Tablet) 20 mg PO DAILY [facility] Last Admin: 08/23/23 09:36 Dose: 20 mg Documented By: HELLEN Dexamethasone Sodium Phosphate (Dexamethasone Sod Phosphate 4 Mg/Ml Vial) 6 mg IVPUSH DAILY [facility] Last Admin: 08/23/23 09:37 Dose: 6 mg Documented By: HELLEN Digoxin (Digoxin 0.25 Mg Tablet) 0.25 mg PO DAILY [facility] Last Admin: 08/23/23 09:36 Dose: 0.25 mg Documented By: HELLEN Diltiazem HCl (Diltiazem Hcl Cd 240 Mg Cap.Er.Deg) 240 mg PO DAILY [facility]; Protocol Last Admin: 08/23/23 09:36 Dose: 240 mg Documented By: HELLEN Fluticasone/Vilanterol (Fluticasone/Vilanterol 100/25 Blst.W.Dev) 1 puff INHALE RDAILY [facility] Last Admin: 08/23/23 07:50 Dose: Not Given Documented By: GEOVANNA Non-Admin Reason: Med Not Available Furosemide (Furosemide 40 Mg Tablet) 40 mg PO DAILY [facility]; Protocol Last Admin: 08/23/23 09:36 Dose: 40 mg Documented By: HELLEN Hydroxyzine HCl (Hydroxyzine Hcl 25 Mg Tablet) 25 mg PO Q8H PRN PRN Reason: Anxiety Ceftriaxone Sodium 1 gm/ (Sodium Chloride) 50 mls @ 100 mls/hr IV Q24H [facility] Stop: 08/25/23 18:29 Last Infusion: 08/22/23 18:39 Dose: Infused Documented By: STEPHENIE Lorazepam (Lorazepam 0.5 Mg Tablet) 0.5 mg PO Q12H PRN PRN Reason: Anxiety Metoprolol Succinate (Metoprolol Succinate Er 50 Mg Tab.Er.24h) 50 mg PO BID [facility]; Protocol Last Admin: 08/23/23 09:37 Dose: 50 mg Documented By: HELLEN Omeprazole (Omeprazole 20 Mg Capsule.Dr) 20 mg PO DAILY@0630 [facility] Last Admin: 08/23/23 05:33 Dose: 20 mg Documented By: LUKE Sertraline HCl (Sertraline Hcl 25 Mg Tablet) 25 mg PO DAILY [facility] Last Admin: 08/23/23 09:37 Dose: 25 mg Documented By: HELLEN Labs 08/23/23 07:10 08/22/23 05:36 Labs: Laboratory Results - last 24 hr 08/22/23 08/23/23 08/23/23 05:36 07:10 07:17 MCV 90.6 MCH 29.6 MCHC 32.7 RDW 13.7 Plt Count 315 MPV 9.5 Immature Gran % (Auto) 1.0 H Neut % (Auto) 91.1 H Lymph % (Auto) 3.7 L [place] % (Auto) 4.0 Eos % (Auto) 0.1 Baso % (Auto) 0.1 Lymph # (Auto) 0.7 L [place] # (Auto) 0.7 Eos # (Auto) 0.0 Baso # (Auto) 0.0 Abs Immat Gran (auto) 0.17 H Absolute Neuts (auto) 15.9 H Absolute Nucleated RBC 0.000 Nucleated RBC % (auto) 0.0 Smear Tech's Comments VERIFIED VBG pH 7.53 H VBG pCO2 58 VBG pO2 76 VBG HCO3 49 H VBG O2 Saturation 95.0 VBG Base Excess 23.6 Anion Gap 18 Estim Creat Clear Calc 103.7 Estimated GFR > 60 Random Glucose 102 Calcium 9.2 D Total Bilirubin 0.4 AST 27 ALT 28 Alkaline Phosphatase 118 H Total Protein 5.5 L Albumin 3.0 L Microbiology Microbiology Results: Microbiology 08/21/23 09:46 Blood Culture - Preliminary Blood - Venous No growth after 24 hours. 08/21/23 09:42 Blood Culture - Preliminary Blood - Venous No growth after 24 hours. Assessment and Plan (1) COPD (chronic obstructive pulmonary disease): Status: Acute Plan 62 year old women tx from ICU with covid 19 acute on chronic resp failure. Initally intubated by EMS and subsequently extubated upon arrival to ER. Required Bipap in ICU, Acute hypoxic resp failure secondary to Covid 19 Continue decadron, duonebs, Rocephin, azithro. ID consult supplemental oxygen HFpEF no exacerbation continue home dose of lasix Afib/flutter continue diltiazem, digoxin and eliquis hx of COPD continue home inhalors Diabetes 2 ss, ada diet diabetic neuropathy Gabapentin Mental health continue home medications GRISELDA cpap DVT prophylaxis with Kristian Attending Dr. Owen Full code continue hospital stay for tx of Covid 19 hypoxia Time Spent With Patient Time: Total time managing care of this patient today ____ minutes. Quality Stroke Does the patient have a stroke diagnosis?: No VTE Prior VTE?: No VTE Risk Level:: Medical - moderate - high VTE Device Contraindication: N/A - Device Ordered VTE Drug Contraindication: N/A - Med Ordered
--- NOTE | 2023-08-23 12:40 | MHC.CM.PN ---
EMR reviewed and per MD rounds, pt is not medically cleared for D/C due to covid-19 infection, and hypoxia requiring supplemental O2. CM will continue to follow.
--- NOTE | 2023-08-23 14:35 | P.CDIM_ITS ---
PROVIDER RESPONSE TEXT: To clarify, the appropriate diagnosis supported by the clinical indicators: Pressure (decubitus) ulcer coccyx unstageable QUERY TEXT: PHYSICIAN'S DOCUMENTATION REQUEST Date of Query: 08/23/2023 12:18 PM EDT Patient Name: Chelsy Wells Admit Date: 08/21/2023 Dear Xiomara Sands, A review of the medical record indicates additional documentation may be needed. Please review below and update the documentation accordingly. Clinical Indicators: Wound care notes: Pressure injury/ulcer coccyx, unstageable Foam dressing Based on the above, could you please provide further information regarding the ulcer/wound: Pressure (decubitus) ulcer coccyx unstageable Other please specify Other (explain)Clinically unable to determine (explain)Thank you, Esthela Torres, CCS, CDIS Use of terms such as suspected, likely, concern for, or probable (associated with a specific diagnosi s that is being evaluated, monitored, or treated as if it exists) are acceptable and can be coded in the inpatient se tting, when documented at the time of discharge. Please use your independent medical judgment in providing your response. THIS QUERY IS PART OF THE PERMANENT MEDICAL RECORD
[2023-08-23] MEDS: Albuterol/Iprat 2.5/0.5MG 3 ML AMPUL.NEB INHALE (15:32)
--- NOTE | 2023-08-23 15:40 | HO.WOUND ---
Wound Consult: Initial 62yr old female admitted to [facility] [place] on 08/21/23 13:32 - See progress notes and H&P for detailed history. Pt recently admitted and discharged seen by inpatient wound care nurse last admission. Sacrum Etiology: Unstageable Pressure Injury - Present On Admission Measurements: 3.5cm x 2.5cm x 0.3cm with undermining circumstantially max depth at 12 o'clock 1.5cm Wound Bed: Moist pink tissue with adherent thick yellow necrotic tissue unable to appreciate wound bed at this time Drainage / Odor: No odor noted- - Moderate amount of yellow drainage Edges: ?Rolled and unattached Denis wound: ?Red hyperpigmented tissue remains blanchable throughout with evidence of MASD (Moisture Associated Skin Damage with Mirrored edges and [place]l dermatitis evidence of Satellite lesions advancing in periwound No induration no fluctuance and no s/s of infection at this time Pain: reports pain at time of assessment Goals of Treatment: ?Off Load Pressure and packing with Durafiber AG for moisture management, autoytic debridement with antimicrobial properties. Recommendations: 1. Sacrum - Cleanse with normal saline and pat dry. ?Apply Antifungal powder to denis-wound, lightly pack sacrum with Durafiber AG cover with sacral foam dressing. ?Change Daily. Follow provider orders for topical antifungal treatment. 2. Turn and Reposition every 2 hours and as needed for patient comfort. 3. Off Load all bony prominences with use of pillows. 4. Monitor for incontinence and moisture control - Purewick in place. 5. Provide adequate and supplemental nutrition - consider nutrition consult. 6. Order low air loss mattress. Reconsult wound care team for wound deterioration or wound changes.
[2023-08-23] MEDS: cefTRIAXone sodium 1 GM in 0.9 % Sodium Chloride 50 ML IV (17:14)
[2023-08-24] VITALS (7 sets, daily range): BP systolic 117–170; BP diastolic 59–80; PULSE 63–84; RESP 16–24; TEMP 36–37; O2SAT 93–98
--- NOTE | 2023-08-24 02:41 | PC.NURSE ---
pt refused cpap again tonight.
[2023-08-24] MEDS: Omeprazole 20 MG CAPSULE.DR PO (06:19)
[2023-08-24 08:34] LABS: Hematocrit 34.9 % (37.0-47.0); Hemoglobin 11.2 g/dl (12.0-16.0); Mean Corpuscular HGB Conc 32.1 g/dl (31.0-35.0); Mean Corpuscular Hemoglobin 29.2 pg (27.0-33.0); Mean Corpuscular Volume 91.1 fL (80.0-98.0); Mean Platelet Volume 9.7 fL (9.4-12.3); Platelet Count 322 X10*3/uL (160-400); Red Blood Count 3.83 X10*6/uL (4.20-5.50); Red Cell Distribution Width 13.7 % (11.0-16.0); White Blood Count 16.7 X10*3/uL (4.8-10.8)
[2023-08-24] MEDS: Metoprolol Succinate ER 50 MG TAB.ER.24H PO ×2 (09:15→19:58)
[2023-08-24] MEDS: Aspirin 81 MG TAB.CHEW PO (09:16)
[2023-08-24] MEDS: Digoxin 0.25 MG TABLET PO (09:16)
[2023-08-24] MEDS: Sertraline HCL 25 MG TABLET PO (09:16)
[2023-08-24] MEDS: dilTIAZem HCL CD 240 MG CAP.ER.DEG PO (09:16)
[2023-08-24] MEDS: Apixaban 5 MG TABLET PO ×2 (09:16→19:58)
[2023-08-24] MEDS: Atorvastatin Calcium 20 MG TABLET PO (09:16)
[2023-08-24] MEDS: Furosemide 40 MG TABLET PO (09:16)
[2023-08-24] MEDS: dexAMETHasone sod phosphate 4 MG/ML VIAL 6 MG IVPUSH (09:17)
[2023-08-24 09:30] LABS: Blood Urea Nitrogen 10 mg/dL (9-16); Estimated Glomerular Filt Rate > 60; Glucose Random 155 mg/dL (60-115)
[2023-08-24 09:44] LABS: Anion Gap 17 (12-20); Carbon Dioxide 38 mmol/L (22-29); Chloride 89 mmol/L (96-108); Potassium 5.6 mmol/L (3.3-5.1); Sodium 138 mmol/L (135-145)
--- NOTE | 2023-08-24 10:14 | HO.PM.IMPN ---
Subjective Subjective Date of Service: 08/24/23 Review of Systems Follow up Resp failure still with some sob, tachypnea Physical Exam Vital Signs: Vital Signs: Last Vital Signs Temp 98.6 F 08/24/23 07:27 Pulse 71 08/24/23 07:27 Resp 20 08/24/23 07:27 BP 151/76 H 08/24/23 07:27 Pulse Ox 95 08/24/23 07:27 O2 Del Method Nasal Cannula 08/24/23 07:27 O2 Flow Rate 2 08/24/23 07:27 FiO2 30 08/22/23 04:00 BMI result Body Mass Index 21.4 Appearing in no acute distress lung sounds are clear to auscultation heart regular rate rhythm, clear S1, S2 positive bowel sounds, abdomen is soft, nontender neuro patient is alert x3, no focal deficits Objective Data Active Medications Albuterol/Ipratropium (Albuterol/Iprat 2.5/0.5mg 3 Ml Ampul.Neb) 3 ml INHALE RQ4H WHILE AWAKE [facility] Last Admin: 08/24/23 07:58 Dose: Not Given Documented By: AGUILAR Non-Admin Reason: Patient Refused Apixaban (Apixaban 5 Mg Tablet) 5 mg PO BID [facility] Last Admin: 08/24/23 09:16 Dose: 5 mg Documented By: HELLEN Aspirin (Aspirin 81 Mg Tab.Chew) 81 mg PO DAILY [facility] Last Admin: 08/24/23 09:16 Dose: 81 mg Documented By: HELLEN Atorvastatin Calcium (Atorvastatin Calcium 20 Mg Tablet) 20 mg PO DAILY [facility] Last Admin: 08/24/23 09:16 Dose: 20 mg Documented By: HELLEN Dexamethasone Sodium Phosphate (Dexamethasone Sod Phosphate 4 Mg/Ml Vial) 6 mg IVPUSH DAILY [facility] Last Admin: 08/24/23 09:17 Dose: 6 mg Documented By: HELLEN Digoxin (Digoxin 0.25 Mg Tablet) 0.25 mg PO DAILY [facility] Last Admin: 08/24/23 09:16 Dose: 0.25 mg Documented By: HELLEN Diltiazem HCl (Diltiazem Hcl Cd 240 Mg Cap.Er.Deg) 240 mg PO DAILY [facility]; Protocol Last Admin: 08/24/23 09:16 Dose: 240 mg Documented By: HELLEN Fluticasone/Vilanterol (Fluticasone/Vilanterol 100/25 Blst.W.Dev) 1 puff INHALE RDAILY [facility] Last Admin: 08/24/23 07:58 Dose: Not Given Documented By: AGUILAR Non-Admin Reason: Patient Refused Furosemide (Furosemide 40 Mg Tablet) 40 mg PO DAILY [facility]; Protocol Last Admin: 08/24/23 09:16 Dose: 40 mg Documented By: HELLEN Hydroxyzine HCl (Hydroxyzine Hcl 25 Mg Tablet) 25 mg PO Q8H PRN PRN Reason: Anxiety Ceftriaxone Sodium 1 gm/ (Sodium Chloride) 50 mls @ 100 mls/hr IV Q24H [facility] Stop: 08/25/23 18:29 Last Infusion: 08/23/23 17:51 Dose: Infused Documented By: HELLEN Lorazepam (Lorazepam 0.5 Mg Tablet) 0.5 mg PO Q12H PRN PRN Reason: Anxiety Metoprolol Succinate (Metoprolol Succinate Er 50 Mg Tab.Er.24h) 50 mg PO BID [facility]; Protocol Last Admin: 08/24/23 09:15 Dose: 50 mg Documented By: HELLEN Omeprazole (Omeprazole 20 Mg Capsule.Dr) 20 mg PO DAILY@0630 [facility] Last Admin: 08/24/23 06:19 Dose: 20 mg Documented By: LUKE Sertraline HCl (Sertraline Hcl 25 Mg Tablet) 25 mg PO DAILY [facility] Last Admin: 08/24/23 09:16 Dose: 25 mg Documented By: HELLEN Labs 08/24/23 07:46 08/24/23 07:46 Labs: Laboratory Results - last 24 hr 08/24/23 07:46 MCV 91.1 MCH 29.2 MCHC 32.1 RDW 13.7 Plt Count 322 MPV 9.7 Absolute Nucleated RBC 0.000 Nucleated RBC % (auto) 0.0 Anion Gap 17 Estim Creat Clear Calc 80.0 Estimated GFR > 60 Random Glucose 155 H Calcium 10.0 D Microbiology Microbiology Results: Microbiology 08/21/23 09:46 Blood Culture - Preliminary Blood - Venous No growth after 48 hours. 08/21/23 09:42 Blood Culture - Preliminary Blood - Venous No growth after 48 hours. Assessment and Plan (1) COPD (chronic obstructive pulmonary disease): Status: Acute Plan 62 year old women tx from ICU with covid 19 acute on chronic resp failure. Initally intubated by EMS and subsequently extubated upon arrival to ER. Required Bipap in ICU, Metabolic alkalosis tachypnea 7.50/59/36/46 start diamox 250mg BID follow VBG Acute hypoxic resp failure secondary to Covid 19 Continue decadron, duonebs, Rocephin, azithro. ID consult pending supplemental oxygen, on 2 liters at this time no change in follow up cxr Hyperkalemia Lokelma HFpEF no exacerbation continue home dose of lasix Afib/flutter continue diltiazem, digoxin and eliquis hx of COPD continue home inhalors Diabetes 2 ss, ada diet diabetic neuropathy Gabapentin Mental health continue home medications GRISELDA cpap DVT prophylaxis with Kristian Attending Dr. Owen Full code continue hospital stay for tx of Covid 19 hypoxia Time Spent With Patient Time: Total time managing care of this patient today ____ minutes. Quality Stroke Does the patient have a stroke diagnosis?: No VTE Prior VTE?: No VTE Risk Level:: Medical - moderate - high VTE Device Contraindication: N/A - Device Ordered VTE Drug Contraindication: N/A - Med Ordered
[2023-08-24] MEDS: Sodium Zirconium Cyclosilicate 10 GM POWD.PACK PO (10:53)
[2023-08-24 11:24] LABS: VBG Base Excess 19.9 mmol/L; VBG HCO3 46 mmol/L (22-26); VBG pCO2 59 mmHg; VBG pO2 36 mmHg
[2023-08-24 11:25] LABS: Venous Blood Gas Refer to POC result
[2023-08-24] MEDS: Albuterol/Iprat 2.5/0.5MG 3 ML AMPUL.NEB INHALE (11:27)
[2023-08-24] MEDS: acetaZOLAMIDE 250 MG TABLET PO ×2 (12:35→19:58)
[2023-08-24] MEDS: cefTRIAXone sodium 1 GM in 0.9 % Sodium Chloride 50 ML IV (17:56)
[2023-08-24] MEDS: LORazepam 0.5 MG TABLET PO (18:23)
[2023-08-24] MEDS: Acetaminophen 325 MG TABLET 650 MG PO (22:29)
[2023-08-24] MEDS: Calcium Carbonate 750 MG TAB.CHEW PO (22:29)
[2023-08-25] VITALS (8 sets, daily range): BP systolic 122–164; BP diastolic 60–83; PULSE 55–82; RESP 16–19; TEMP 36.1–36.6; O2SAT 62–100
--- NOTE | 2023-08-25 | ECG_ITS ---
Test Reason : kennedy Blood Pressure : / mmHG Vent. Rate : 061 BPM Atrial Rate : 000 BPM P-R Int : 000 ms QRS Dur : 096 ms QT Int : 384 ms P-R-T Axes : 000 042 202 degrees QTc Int : 386 ms Atrial fibrillation Left ventricular hypertrophy with repolarization abnormality ( [place] product ) Abnormal ECG When compared with ECG of 21-AUG-2023 08:26, Atrial fibrillation has replaced Atrial flutter Vent. rate has decreased BY 32 BPM Referred By: Jh Welch Electronically Signed By:MUNIR PRATHER MD
[2023-08-25] MEDS: Omeprazole 20 MG CAPSULE.DR PO (06:10)
[2023-08-25 08:41] LABS: Anion Gap 15 (12-20); Blood Urea Nitrogen 12 mg/dL (9-16); Calcium 9.1 mg/dL (8.4-10.2); Carbon Dioxide 24 mmol/L (22-29); Chloride 94 mmol/L (96-108); Creatinine Clr Calc Pharmacy 97.2; Estimated Glomerular Filt Rate > 60; Glucose Random 121 mg/dL (60-115); Potassium 3.7 mmol/L (3.3-5.1); Sodium 129 mmol/L (135-145)
[2023-08-25] MEDS: dilTIAZem HCL CD 240 MG CAP.ER.DEG PO (10:11)
[2023-08-25] MEDS: dexAMETHasone sod phosphate 4 MG/ML VIAL 6 MG IVPUSH (10:11)
[2023-08-25] MEDS: Apixaban 5 MG TABLET PO ×2 (10:12→21:33)
[2023-08-25] MEDS: Sertraline HCL 25 MG TABLET PO (10:12)
[2023-08-25] MEDS: Digoxin 0.25 MG TABLET PO (10:12)
[2023-08-25] MEDS: Atorvastatin Calcium 20 MG TABLET PO (10:12)
[2023-08-25] MEDS: Metoprolol Succinate ER 50 MG TAB.ER.24H PO (10:12)
[2023-08-25] MEDS: Aspirin 81 MG TAB.CHEW PO (10:12)
[2023-08-25 10:18] LABS: VBG Base Excess 9.1 mmol/L; VBG HCO3 35 mmol/L (22-26); VBG pCO2 55 mmHg; VBG pH 7.41 (7.32-7.43); VBG pO2 42 mmHg
[2023-08-25 10:19] LABS: Venous Blood Gas Refer to POC result
[2023-08-25] MEDS: Acetaminophen 325 MG TABLET 650 MG PO ×2 (10:25→18:47)
--- NOTE | 2023-08-25 10:53 | HO.PM.IMPN ---
Subjective Subjective Date of Service: 08/25/23 Interval History: weakness, sob Physical Exam Vital Signs: Vital Signs: Last Vital Signs Temp 96.9 F 08/25/23 07:11 Pulse 57 08/25/23 07:11 Resp 16 08/25/23 07:11 BP 164/78 H 08/25/23 07:11 Pulse Ox 98 08/25/23 07:11 O2 Del Method Nasal Cannula 08/25/23 07:11 O2 Flow Rate 2 08/25/23 07:11 FiO2 99 08/25/23 03:07 BMI result Body Mass Index 21.4 frail, weak appearing, alert, oriented times 3, dimisnhihed breath sounds Objective Data Active Medications Acetaminophen (Acetaminophen 325 Mg Tablet) 650 mg PO Q4H PRN PRN Reason: Pain, Mild (Pain Scale 1-3) Last Admin: 08/25/23 10:25 Dose: 650 mg Documented By: CRUZ Acetazolamide (Acetazolamide 250 Mg Tablet) 250 mg PO BID [facility] Last Admin: 08/24/23 19:58 Dose: 250 mg Documented By: KRISTY Albuterol/Ipratropium (Albuterol/Iprat 2.5/0.5mg 3 Ml Ampul.Neb) 3 ml INHALE RQ4H WHILE AWAKE [facility] Last Admin: 08/25/23 08:14 Dose: Not Given Documented By: CLARE Non-Admin Reason: Patient Refused Albuterol/Ipratropium (Albuterol/Iprat 2.5/0.5mg 3 Ml Ampul.Neb) 3 ml INHALE Q4H PRN PRN Reason: Wheezing Apixaban (Apixaban 5 Mg Tablet) 5 mg PO BID [facility] Last Admin: 08/25/23 10:12 Dose: 5 mg Documented By: CRUZ Aspirin (Aspirin 81 Mg Tab.Chew) 81 mg PO DAILY [facility] Last Admin: 08/25/23 10:12 Dose: 81 mg Documented By: CRUZ Atorvastatin Calcium (Atorvastatin Calcium 20 Mg Tablet) 20 mg PO DAILY [facility] Last Admin: 08/25/23 10:12 Dose: 20 mg Documented By: CRUZ Calcium Carbonate (Calcium Carbonate 750 Mg Tab.Chew) 750 mg PO Q6H PRN PRN Reason: Heartburn Last Admin: 08/24/23 22:29 Dose: 750 mg Documented By: KRISTY Dexamethasone Sodium Phosphate (Dexamethasone Sod Phosphate 4 Mg/Ml Vial) 6 mg IVPUSH DAILY [facility] Last Admin: 08/25/23 10:11 Dose: 6 mg Documented By: CRUZ Digoxin (Digoxin 0.25 Mg Tablet) 0.25 mg PO DAILY [facility] Last Admin: 08/25/23 10:12 Dose: 0.25 mg Documented By: CRUZ Diltiazem HCl (Diltiazem Hcl Cd 240 Mg Cap.Er.Deg) 240 mg PO DAILY [facility]; Protocol Last Admin: 08/25/23 10:11 Dose: 240 mg Documented By: CRUZ Fluticasone/Vilanterol (Fluticasone/Vilanterol 100/25 Blst.W.Dev) 1 puff INHALE RDAILY [facility] Last Admin: 08/25/23 08:14 Dose: Not Given Documented By: CLARE Non-Admin Reason: Patient Refused Furosemide (Furosemide 40 Mg Tablet) 40 mg PO DAILY [facility]; Protocol Last Admin: 08/24/23 09:16 Dose: 40 mg Documented By: HELLEN Hydroxyzine HCl (Hydroxyzine Hcl 25 Mg Tablet) 25 mg PO Q8H PRN PRN Reason: Anxiety Ceftriaxone Sodium 1 gm/ (Sodium Chloride) 50 mls @ 100 mls/hr IV Q24H [facility] Stop: 08/25/23 18:29 Last Infusion: 08/24/23 18:33 Dose: Infused Documented By: HELLEN Lorazepam (Lorazepam 0.5 Mg Tablet) 0.5 mg PO Q12H PRN PRN Reason: Anxiety Last Admin: 08/24/23 18:23 Dose: 0.5 mg Documented By: HELLEN Metoprolol Succinate (Metoprolol Succinate Er 50 Mg Tab.Er.24h) 50 mg PO BID [facility]; Protocol Last Admin: 08/25/23 10:12 Dose: 50 mg Documented By: CRUZ Omeprazole (Omeprazole 20 Mg Capsule.Dr) 20 mg PO DAILY@0630 [facility] Last Admin: 08/25/23 06:10 Dose: 20 mg Documented By: KRISTY Sertraline HCl (Sertraline Hcl 25 Mg Tablet) 25 mg PO DAILY [facility] Last Admin: 08/25/23 10:12 Dose: 25 mg Documented By: CRUZ Labs 08/24/23 07:46 08/25/23 08:04 Labs: Laboratory Results - last 24 hr 08/24/23 08/25/23 08/25/23 11:19 08:04 10:13 Hold Purple Top SEE NOTE VBG pH 7.50 H 7.41 VBG pCO2 59 55 VBG pO2 36 42 VBG HCO3 46 H 35 H VBG O2 Saturation 52.0 61.0 VBG Base Excess 19.9 9.1 Anion Gap 15 Estim Creat Clear Calc 97.2 Estimated GFR > 60 Random Glucose 121 H Calcium 9.1 D Assessment and Plan (1) COPD (chronic obstructive pulmonary disease): Status: Acute Plan 62F PMH copd, chronic hypoxic and hypercapnic respiratory failure on 2 L home O2, unspecified atrial fibrillation on apixaban, hfpef, transfered from ICU with covid 19 acute on chronic resp failure. Initally intubated by EMS and subsequently extubated upon arrival to ER. Required Bipap in ICU, Acute hypoxic and hypercapneic resp failure secondary to copd with acute decompensation due to covid 19 Continue decadron, duonebs, Rocephin, azithro. ID eval supplemental oxygen, on 2 liters at this time Hyperkalemia Lokelma HFpEF no exacerbation will hold lasix for contraction alkalosis Afib/flutter unspecified continue diltiazem, digoxin and eliquis Diabetes 2 ss, ada diet diabetic neuropathy Gabapentin Mental health continue home medications GRISELDA cpap DVT prophylaxis with Eliquis Full code reason for continued hospitalization:ongoing sob, weakness Time Spent With Patient Time: Total time managing care of this patient today ____ minutes. Quality Stroke Does the patient have a stroke diagnosis?: No VTE Prior VTE?: No VTE Risk Level:: Medical - moderate - high VTE Device Contraindication: N/A - Device Ordered VTE Drug Contraindication: N/A - Med Ordered
--- NOTE | 2023-08-25 13:32 | MHC.CLN ---
F/U PT WITH INCREASED NUTRITION RISK R/T PRESSURE INJURY PO INTAKE 50-75% DIET RX: CARDIAC 1500ML FR-APPROPRIATE PT RECEIVING ENSURE MAX BID TO PROMOTE WOUND HEALING SUPP TO PROVIDE 300KCALS, 60G PROTEIN MONITOR PO INTAKE CLOSELY
[2023-08-25] MEDS: Albuterol/Iprat 2.5/0.5MG 3 ML AMPUL.NEB INHALE ×2 (14:03→19:47)
--- NOTE | 2023-08-25 14:52 | MHC.CM.PN ---
EMR reviewed and per MD rounds, pt is not medically cleared for D/C due to SOB and weakness due to covid-19 infection. Plan continues to be returning to [facility] when medically cleared. CM will continue to follow.
[2023-08-25] MEDS: cefTRIAXone sodium 1 GM in 0.9 % Sodium Chloride 50 ML IV (17:45)
[2023-08-25] MEDS: traMADoL HCL 50 MG TABLET 25 MG PO (21:33)
--- NOTE | 2023-08-26 | ECG_ITS ---
Test Reason : bradycardia Blood Pressure : / mmHG Vent. Rate : 087 BPM Atrial Rate : 000 BPM P-R Int : 000 ms QRS Dur : 102 ms QT Int : 318 ms P-R-T Axes : 000 059 213 degrees QTc Int : 382 ms Atrial fibrillation Left ventricular hypertrophy with repolarization abnormality ( [place] product ) Abnormal ECG No previous ECGs available Referred By: Jh Welch Electronically Signed By:MUNIR PRATHER MD
[2023-08-26 03:16] VITALS: BP 141/65; PULSE 55; RESP 14; TEMP 36.9; O2SAT 100
[2023-08-26] MEDS: Omeprazole 20 MG CAPSULE.DR PO (05:47)
[2023-08-26] MEDS: traMADoL HCL 50 MG TABLET 25 MG PO (05:52)
[2023-08-26 07:25] LABS: Hematocrit 34.4 % (37.0-47.0); Hemoglobin 11.4 g/dl (12.0-16.0); Mean Corpuscular HGB Conc 33.1 g/dl (31.0-35.0); Mean Corpuscular Hemoglobin 29.2 pg (27.0-33.0); Mean Platelet Volume 10.2 fL (9.4-12.3); Platelet Count 286 X10*3/uL (160-400); Red Blood Count 3.91 X10*6/uL (4.20-5.50); Red Cell Distribution Width 13.3 % (11.0-16.0); White Blood Count 13.8 X10*3/uL (4.8-10.8)
[2023-08-26 07:33] VITALS: BP 157/66; PULSE 66; RESP 16; TEMP 36.5; O2SAT 100
[2023-08-26 07:40] LABS: Anion Gap 15 (12-20); Blood Urea Nitrogen 14 mg/dL (9-16); Carbon Dioxide 26 mmol/L (22-29); Chloride 93 mmol/L (96-108); Estimated Glomerular Filt Rate > 60; Glucose Fasting 193 mg/dL (60-99); Potassium 3.1 mmol/L (3.3-5.1); Sodium 131 mmol/L (135-145)
[2023-08-26] MEDS: Potassium Chloride ER 20 MEQ TAB.ER.PRT 40 MEQ PO (08:22)
[2023-08-26] MEDS: Aspirin 81 MG TAB.CHEW PO (08:23)
[2023-08-26] MEDS: Sertraline HCL 25 MG TABLET PO (08:23)
[2023-08-26] MEDS: Apixaban 5 MG TABLET PO ×2 (08:23→22:09)
[2023-08-26] MEDS: Atorvastatin Calcium 20 MG TABLET PO (08:23)
[2023-08-26] MEDS: dexAMETHasone sod phosphate 4 MG/ML VIAL 6 MG IVPUSH (08:32)
[2023-08-26] MEDS: polyethylene glycoL 3350 17 GM POWD.PACK PO (09:51)
--- NOTE | 2023-08-26 10:32 | PM.CNCAR ---
History of Present Illness History of Present Illness Date of Service: 08/26/23 Requesting physician: Jh Welch Consult reason: atrial fibrillation Chief complaint: Bradycardia Narrative: I was consulted to see Pamula in cardiology consultation today for slow heart rate overnight. Patient has longstanding history of chronic atrial fibrillation on anticoagulation with Eliquis, valvular heart disease with moderate aortic regurgitation mitral regurgitation, chronic obstructive pulmonary disease, pulmonary hypertension by last echocardiogram preserved LV ejection fraction. Patient was admitted because of COVID pneumonia and hypoxic respiratory failure. Also was noted to have elevated BNP. Since then has been treated and has improved however complains of weakness. She says she feels very weak and tired. Overnight was noted to have slow heart rate, she is on triple rate control therapy with metoprolol, diltiazem and digoxin. All her medications have been withheld this morning. She is completely asymptomatic from this perspective. This morning her heart rate is in the 60s. No hemodynamic instability. She denies any other cardiac symptoms at this point in time Review of Systems Constitutional: Constitutional: Reports lethargy and Reports weakness Eyes: Eyes: Reports no additional eye complaints Cardiovascular: Cardiovascular: Reports no additional cardiovascular complaints Respiratory: Respiratory: Reports no additional respiratory complaints Gastrointestinal: Gastrointestinal: Reports no additional gastrointestinal complaints Musculoskeletal: Musculoskeletal: Reports no additional musculoskeletal complaints Neurologic: Reports weakness Psychiatric: Psychiatric: Reports no additional psychiatric complaints [facility] Past Medical History Medical History (Updated 08/26/23 @ 10:56 by Baron Olmos MD) Chronic a-fib Decubitus ulcer of back, stage 3 Oxygen dependent History of chronic carbon dioxide retention Compression fracture of thoracic vertebra Breast implant status CHF (congestive heart failure) Pressure ulcer COPD (chronic obstructive pulmonary disease) Osteoporosis Social History Social History Household Members: Other Household Members Other:: Sister Housing: House Do you presently have visiting nurse or other home services: No Patient Tobacco Use Status: Former Tobacco user Tobacco use type: Cigarette Smoked in Last 30 Days: No Use of substances other than those prescribed or required for medical reasons: No Currently Displaying Signs/Symptoms of Drug Intoxication Withdrawal: No Have you been hit, kicked, punched, or otherwise hurt by someone within the past year? If so, by whom?: No Do you feel safe in your current relationship?: No Current Relationship Is there a partner from a previous relationship who is making you feel unsafe now?: No Are you made to feel afraid or neglected: No Advance Directives: Yes Advance Directives on File: Yes Advance Directives Date on File: 08/18/23 Do you have thoughts of harming others: None Do you have a plan to hurt others: No Plan Recently lost weight without trying: No How much weight loss: Not applicable Eating poorly because of decreased appetite: No Nutrition screen score: 0 Nutrition Risks: No Nutritional Risk Patient : No : No Poor oral hygiene: No service: No Meds Allergies Allergy/AdvReac Type Severity Reaction Status Date / Time codeine Allergy Intermediate Anaphylaxis Verified 08/13/23 14:29 morphine Allergy Anaphylaxis Verified 08/13/23 14:21 Active Medications: Current Medications Acetaminophen (Acetaminophen 325 Mg Tablet) 650 mg PO Q4H PRN PRN Reason: Pain, Mild (Pain Scale 1-3) Last Admin: 08/25/23 18:47 Dose: 650 mg Acetazolamide (Acetazolamide 250 Mg Tablet) 250 mg PO BID [facility] Last Admin: 08/24/23 19:58 Dose: 250 mg Albuterol/Ipratropium (Albuterol/Iprat 2.5/0.5mg 3 Ml Ampul.Neb) 3 ml INHALE RQ4H WHILE AWAKE [facility] Last Admin: 08/26/23 08:17 Dose: Not Given Albuterol/Ipratropium (Albuterol/Iprat 2.5/0.5mg 3 Ml Ampul.Neb) 3 ml INHALE Q4H PRN PRN Reason: Wheezing Apixaban (Apixaban 5 Mg Tablet) 5 mg PO BID [facility] Last Admin: 08/26/23 08:23 Dose: 5 mg Aspirin (Aspirin 81 Mg Tab.Chew) 81 mg PO DAILY [facility] Last Admin: 08/26/23 08:23 Dose: 81 mg Atorvastatin Calcium (Atorvastatin Calcium 20 Mg Tablet) 20 mg PO DAILY [facility] Last Admin: 08/26/23 08:23 Dose: 20 mg Calcium Carbonate (Calcium Carbonate 750 Mg Tab.Chew) 750 mg PO Q6H PRN PRN Reason: Heartburn Last Admin: 08/24/23 22:29 Dose: 750 mg Dexamethasone Sodium Phosphate (Dexamethasone Sod Phosphate 4 Mg/Ml Vial) 6 mg IVPUSH DAILY [facility] Last Admin: 08/26/23 08:32 Dose: 6 mg Digoxin (Digoxin 0.25 Mg Tablet) 0.25 mg PO DAILY [facility] Last Admin: 08/25/23 10:12 Dose: 0.25 mg Diltiazem HCl (Diltiazem Hcl Cd 240 Mg Cap.Er.Deg) 240 mg PO DAILY [facility]; Protocol Last Admin: 08/25/23 10:11 Dose: 240 mg Fluticasone/Vilanterol (Fluticasone/Vilanterol 100/25 Blst.W.Dev) 1 puff INHALE RDAILY [facility] Last Admin: 08/26/23 08:17 Dose: Not Given Furosemide (Furosemide 40 Mg Tablet) 40 mg PO DAILY [facility]; Protocol Last Admin: 08/24/23 09:16 Dose: 40 mg Hydroxyzine HCl (Hydroxyzine Hcl 25 Mg Tablet) 25 mg PO Q8H PRN PRN Reason: Anxiety Lorazepam (Lorazepam 0.5 Mg Tablet) 0.5 mg PO Q12H PRN PRN Reason: Anxiety Last Admin: 08/24/23 18:23 Dose: 0.5 mg Metoprolol Succinate (Metoprolol Succinate Er 50 Mg Tab.Er.24h) 50 mg PO BID [facility]; Protocol Last Admin: 08/25/23 10:12 Dose: 50 mg Omeprazole (Omeprazole 20 Mg Capsule.Dr) 20 mg PO DAILY@0630 [facility] Last Admin: 08/26/23 05:47 Dose: 20 mg Sertraline HCl (Sertraline Hcl 25 Mg Tablet) 25 mg PO DAILY [facility] Last Admin: 08/26/23 08:23 Dose: 25 mg Tramadol HCl (Tramadol Hcl 50 Mg Tablet) 25 mg PO Q6H PRN PRN Reason: Pain, Moderate(Pain Scale 4-6) Last Admin: 08/26/23 05:52 Dose: 25 mg Home Medications Medication Instructions Recorded Confirmed Last Taken Type acetaminophen 325 mg tablet 650 mg PO Q6H PRN temp > 08/13/23 08/21/23 Unknown History 100/general discomfort albuterol sulfate 90 mcg/actuation 1 inh inhalation QID PRN Wheezing 08/13/23 08/21/23 Unknown History aerosol inhaler (Ventolin HFA) apixaban 5 mg tablet 5 mg PO BID 08/13/23 08/21/23 Unknown History aspirin 81 mg tablet,delayed 81 mg PO DAILY 08/13/23 08/21/23 Unknown History release atorvastatin 20 mg tablet 20 mg PO BEDTIME 08/13/23 08/21/23 Unknown History bisacodyl 10 mg rectal suppository 10 mg WI Q3D PRN Constipation 08/13/23 08/21/23 Unknown History (Dulcolax (bisacodyl)) cholecalciferol (vitamin D3) 25 25 mcg PO DAILY 08/13/23 08/21/23 Unknown History mcg (1,000 unit) tablet collagenase clostridium histo. 250 1 appl topical DAILY 08/13/23 08/21/23 Unknown History unit/gram topical ointment (Santyl) digoxin 250 mcg (0.25 mg) tablet 250 mcg PO DAILY 08/13/23 08/21/23 Unknown History diltiazem HCl 180 mg 180 mg PO DAILY 08/13/23 08/21/23 Unknown History tablet,extended release 24 hr (Cardizem LA) fluticasone 250 mcg-salmeterol 50 1 inh inhalation BID 08/13/23 08/21/23 Unknown History mcg/dose blistr powdr for inhalation (Advair Diskus) folic acid 1 mg tablet 1 mg PO DAILY 08/13/23 08/21/23 Unknown History furosemide 40 mg tablet 40 mg PO DAILY 08/13/23 08/21/23 Unknown History gabapentin 300 mg capsule 600 mg PO TID 08/13/23 08/21/23 Unknown History guaifenesin 100 mg/5 mL oral liquid 200 mg PO Q8H PRN Cough 08/13/23 08/21/23 Unknown History hydroxyzine HCl 10 mg tablet 30 mg PO TID PRN Anxiety 08/13/23 08/21/23 Unknown History ipratropium 0.5 mg-albuterol 3 mg 3 ml inhalation Q6H PRN SHORTNESS 08/13/23 08/21/23 Unknown History (2.5 mg base)/3 mL nebulization OF BREATH/WHEEZE soln lactulose 10 gram/15 mL oral 20 g PO Q12H PRN Constipation 08/13/23 08/21/23 Unknown History solution lorazepam 0.5 mg tablet 0.5 mg PO BID PRN Anxiety 08/13/23 08/21/23 Unknown History magnesium hydroxide 400 mg/5 mL 30 ml PO BEDTIME PRN Constipation 08/13/23 08/21/23 Unknown History oral suspension (Milk of Magnesia) melatonin 3 mg tablet 3 mg PO BEDTIME 08/13/23 08/21/23 Unknown History metoprolol succinate 50 mg 50 mg PO BID 08/13/23 08/21/23 Unknown History tablet,extended release 24 hr multivitamin 1 tab PO DAILY 08/13/23 08/21/23 Unknown History nicotine 21 mg/24 hr daily 1 patch transdermal DAILY 08/13/23 08/21/23 Unknown History transdermal patch oxycodone 5 mg tablet 2.5 mg PO Q6H PRN Pain 08/13/23 08/21/23 Unknown History pantoprazole 40 mg tablet,delayed 40 mg PO DAILY 08/13/23 08/21/23 Unknown History release (Protonix) sennosides 8.6 mg-docusate sodium 2 tab-cap PO BEDTIME 08/13/23 08/21/23 Unknown History 50 mg tablet (Senna Plus) sertraline 25 mg tablet 25 mg PO DAILY 08/13/23 08/21/23 Unknown History sodium phosphates 19 gram-7 118 ml WI DAILY PRN Constipation 08/13/23 08/21/23 Unknown History gram/118 mL enema (Fleet Enema) thiamine HCl (vitamin B1) 100 mg 100 mg PO DAILY 08/13/23 08/21/23 Unknown History tablet umeclidinium 62.5 mcg/actuation 1 inh inhalation DAILY 08/13/23 08/21/23 Unknown History blister powder for inhalation (Incruse Ellipta) Physical Exam Vital Signs: Vital Signs: Last Vital Signs Temp 97.7 F 08/26/23 07:33 Pulse 66 08/26/23 07:33 Resp 16 08/26/23 07:33 BP 157/66 H 08/26/23 07:33 Pulse Ox 100 08/26/23 07:33 O2 Del Method Nasal Cannula 08/26/23 07:33 O2 Flow Rate 3 08/26/23 07:33 FiO2 99 08/25/23 03:07 BMI result Body Mass Index 21.4 Const: General: cooperative, comfortable, no acute distress, alert, awake and ill appearing Nutritional Appearance: cachectic and malnourished Orientation/consciousness: patient oriented x3 HEENT: Head: Yes normocephalic and Yes atraumatic Neck: Neck: Yes trachea midline, Yes supple and Yes no JVD Resp: Effort & Inspection: decreased respiratory effort Auscultation: clear to auscultation bilaterally and diminished lung sounds Cardio: Rate: bradycardic Rhythm: abnormal rhythm irregularly irregular Heart sounds: S1 normal heart sound present and S2 normal heart sound present GI: Auscultation: normal bowel sounds Skin: General skin exam: no rashes or lesions noted and ecchymosis Neuro: General: patient oriented x3 and no focal motor deficits Extrem: General: Yes no clubbing, cyanosis or edema Objective Labs and Meds 08/26/23 07:03 08/26/23 07:03 Lab results: Laboratory Results - last 24 hr 08/26/23 07:03 WBC 13.8 H RBC 3.91 L Hgb 11.4 L Hct 34.4 L MCV 88.0 MCH 29.2 MCHC 33.1 RDW 13.3 Plt Count 286 MPV 10.2 Absolute Nucleated RBC 0.000 Nucleated RBC % (auto) 0.0 Sodium 131 L Potassium 3.1 L Chloride 93 L Carbon Dioxide 26 Anion Gap 15 BUN 14 Creatinine 0.51 Estim Creat Clear Calc 80.0 Estimated GFR > 60 Fasting Glucose 193 H Calcium 9.0 Assessment and Plan (1) Chronic a-fib: Status: Acute Chronic atrial fibrillation would over corrected rate with slow heart rate during sleep hours. Patient is on multiple medication for rate control. Agree with holding the medications today. Continue monitor full disclosure cardiac telemetry overnight. Most likely by tomorrow heart rate will improve and would resume 1st with metoprolol therapy for rate control and eventually at other therapy as need be. No indication for pacemaker therapy. Continue supportive care. Continue full oral anticoagulation Eliquis. Will sign of the case at this point time. Thank you for allowing me to partake in her care Time Spent With Patient Time: Total time managing care of this patient today ____ minutes. Procedures Date of Service Date of Service: 08/26/23
--- NOTE | 2023-08-26 11:39 | HO.PM.IMPN ---
Subjective Subjective Date of Service: 08/26/23 Interval History: weakness, sob Physical Exam Vital Signs: Vital Signs: Last Vital Signs Temp 97.7 F 08/26/23 07:33 Pulse 66 08/26/23 07:33 Resp 16 08/26/23 07:33 BP 157/66 H 08/26/23 07:33 Pulse Ox 100 08/26/23 07:33 O2 Del Method Nasal Cannula 08/26/23 07:33 O2 Flow Rate 3 08/26/23 07:33 FiO2 99 08/25/23 03:07 BMI result Body Mass Index 21.4 Const: General: cooperative, comfortable, no acute distress, alert, awake and ill appearing Nutritional Appearance: cachectic and malnourished Orientation/consciousness: patient oriented x3 HEENT: Head: Yes normocephalic and Yes atraumatic Neck: Neck: Yes trachea midline, Yes supple and Yes no JVD Resp: Effort & Inspection: decreased respiratory effort Auscultation: clear to auscultation bilaterally and diminished lung sounds Cardio: Rate: bradycardic Rhythm: abnormal rhythm irregularly irregular Heart sounds: S1 normal heart sound present and S2 normal heart sound present GI: Auscultation: normal bowel sounds Skin: General skin exam: no rashes or lesions noted and ecchymosis Neuro: General: patient oriented x3 and no focal motor deficits Extrem: General: Yes no clubbing, cyanosis or edema Objective Data Active Medications Acetaminophen (Acetaminophen 325 Mg Tablet) 650 mg PO Q4H PRN PRN Reason: Pain, Mild (Pain Scale 1-3) Last Admin: 08/25/23 18:47 Dose: 650 mg Documented By: FLORIDALMA Acetazolamide (Acetazolamide 250 Mg Tablet) 250 mg PO BID [facility] Last Admin: 08/24/23 19:58 Dose: 250 mg Documented By: KRISTY Albuterol/Ipratropium (Albuterol/Iprat 2.5/0.5mg 3 Ml Ampul.Neb) 3 ml INHALE RQ4H WHILE AWAKE [facility] Last Admin: 08/26/23 08:17 Dose: Not Given Documented By: AGUILAR Non-Admin Reason: Patient Refused Albuterol/Ipratropium (Albuterol/Iprat 2.5/0.5mg 3 Ml Ampul.Neb) 3 ml INHALE Q4H PRN PRN Reason: Wheezing Apixaban (Apixaban 5 Mg Tablet) 5 mg PO BID [facility] Last Admin: 08/26/23 08:23 Dose: 5 mg Documented By: CHANO Aspirin (Aspirin 81 Mg Tab.Chew) 81 mg PO DAILY [facility] Last Admin: 08/26/23 08:23 Dose: 81 mg Documented By: CHANO Atorvastatin Calcium (Atorvastatin Calcium 20 Mg Tablet) 20 mg PO DAILY [facility] Last Admin: 08/26/23 08:23 Dose: 20 mg Documented By: CHANO Calcium Carbonate (Calcium Carbonate 750 Mg Tab.Chew) 750 mg PO Q6H PRN PRN Reason: Heartburn Last Admin: 08/24/23 22:29 Dose: 750 mg Documented By: KRISTY Dexamethasone Sodium Phosphate (Dexamethasone Sod Phosphate 4 Mg/Ml Vial) 6 mg IVPUSH DAILY [facility] Last Admin: 08/26/23 08:32 Dose: 6 mg Documented By: CHANO Digoxin (Digoxin 0.25 Mg Tablet) 0.25 mg PO DAILY [facility] Last Admin: 08/25/23 10:12 Dose: 0.25 mg Documented By: CRUZ Diltiazem HCl (Diltiazem Hcl Cd 240 Mg Cap.Er.Deg) 240 mg PO DAILY [facility]; Protocol Last Admin: 08/25/23 10:11 Dose: 240 mg Documented By: CRUZ Fluticasone/Vilanterol (Fluticasone/Vilanterol 100/25 Blst.W.Dev) 1 puff INHALE RDAILY [facility] Last Admin: 08/26/23 08:17 Dose: Not Given Documented By: AGUILAR Non-Admin Reason: Patient Refused Furosemide (Furosemide 40 Mg Tablet) 40 mg PO DAILY [facility]; Protocol Last Admin: 08/24/23 09:16 Dose: 40 mg Documented By: HELLEN Hydroxyzine HCl (Hydroxyzine Hcl 25 Mg Tablet) 25 mg PO Q8H PRN PRN Reason: Anxiety Lorazepam (Lorazepam 0.5 Mg Tablet) 0.5 mg PO Q12H PRN PRN Reason: Anxiety Last Admin: 08/24/23 18:23 Dose: 0.5 mg Documented By: HELLEN Metoprolol Succinate (Metoprolol Succinate Er 50 Mg Tab.Er.24h) 50 mg PO BID [facility]; Protocol Last Admin: 08/25/23 10:12 Dose: 50 mg Documented By: CRUZ Omeprazole (Omeprazole 20 Mg Capsule.Dr) 20 mg PO DAILY@0630 [facility] Last Admin: 08/26/23 05:47 Dose: 20 mg Documented By: SALVADOR Sertraline HCl (Sertraline Hcl 25 Mg Tablet) 25 mg PO DAILY [facility] Last Admin: 08/26/23 08:23 Dose: 25 mg Documented By: CHANO Tramadol HCl (Tramadol Hcl 50 Mg Tablet) 25 mg PO Q6H PRN PRN Reason: Pain, Moderate(Pain Scale 4-6) Last Admin: 08/26/23 05:52 Dose: 25 mg Documented By: SALVADOR Labs 08/26/23 07:03 08/26/23 07:03 Labs: Laboratory Results - last 24 hr 08/26/23 07:03 MCV 88.0 MCH 29.2 MCHC 33.1 RDW 13.3 Plt Count 286 MPV 10.2 Absolute Nucleated RBC 0.000 Nucleated RBC % (auto) 0.0 Anion Gap 15 Estim Creat Clear Calc 80.0 Estimated GFR > 60 Fasting Glucose 193 H Calcium 9.0 Assessment and Plan (1) COPD (chronic obstructive pulmonary disease): Status: Acute Plan 62F PMH copd, chronic hypoxic and hypercapnic respiratory failure on 2 L home O2, unspecified atrial fibrillation on apixaban, hfpef, transfered from ICU with covid 19 acute on chronic resp failure. Initally intubated by EMS and subsequently extubated upon arrival to ER. Required Bipap in ICU, now downgraded, had episode of kennedy to 30s on 08/25/23 while sleeping, improved when awake to 60s Acute hypoxic and hypercapneic resp failure secondary to copd with acute decompensation due to covid 19 Continue decadron, duonebs, Rocephin, azithro. supplemental oxygen, on 2 liters at this time Hyperkalemia Lokelma HFpEF no exacerbation will hold lasix for contraction alkalosis Afib/flutter unspecified with bradycardia holding metoprolol, diltiazem, digoxin when heart rate goes up will restart metoprolol cardio appreciated eliquis Diabetes 2 ss, ada diet diabetic neuropathy Gabapentin Mental health continue home medications GRISELDA cpap DVT prophylaxis with Eliquis Full code reason for continued hospitalization:ongoing sob, weakness Time Spent With Patient Time: Total time managing care of this patient today ____ minutes. Quality Stroke Does the patient have a stroke diagnosis?: No VTE Prior VTE?: No VTE Risk Level:: Medical - moderate - high VTE Device Contraindication: N/A - Device Ordered VTE Drug Contraindication: N/A - Med Ordered
[2023-08-26 11:47] VITALS: BP 157/63; PULSE 69; RESP 18; TEMP 36.5; O2SAT 100
--- NOTE | 2023-08-26 13:10 | P.CDIM_ITS ---
PROVIDER RESPONSE TEXT: To clarify, the appropriate diagnosis supported by the clinical indicators: Other (explain): no mlanutrtion QUERY TEXT: PHYSICIAN'S DOCUMENTATION REQUEST Date of Query: 08/26/2023 12:57 PM EDT Patient Name: Chelsy Wells Admit Date: 08/21/2023 Dear Jh Welch, A review of the medical record indicates additional documentation may be needed. Please review below and update the documentation accordingly. Documentation includes the diagnosis of malnourished and cachectic: Clinical indicators: PN 08/26 - Nutritional appearance: cachectic and malnourished. Clinical nutrition notes 08/25 - patient with increased nutritional risk R/T pressure injury Receiving Ensure Max BID to promote wound healing Nursing notes Height and Weight 08/22 - Underweight with BMI 21 49.7kg To ensure the quality of the medical record, based on the above information and the recognized standa rd for (specify malnutrition severity), could you please verify which of the following diagnoses best reflects the pa vitaliy's nutritional status. Specify severity) malnutrition is/was present and is a clinical diagnosis (please include additional support in the medical record) Other please specify Other (explain)Clinically unable to determine (explain)Thank you, Esthela Torres, CCS, CDIS Use of terms such as suspected, likely, concern for, or probable (associated with a specific diagnosi s that is being evaluated, monitored, or treated as if it exists) are acceptable and can be coded in the inpatient se tting, when documented at the time of discharge. Please use your independent medical judgment in providing your response. THIS QUERY IS PART OF THE PERMANENT MEDICAL RECORD
[2023-08-26 15:08] VITALS: BP 109/60; PULSE 73; RESP 18; TEMP 37.2; O2SAT 97
[2023-08-26 19:03] VITALS: BP 144/79; PULSE 88; RESP 18; TEMP 36.5; O2SAT 99
[2023-08-26] MEDS: Albuterol Sulfate 90 MCG 8 GM INHALER 2 PUFF INHALE (22:19)
[2023-08-26 22:21] VITALS: PULSE 88; RESP 18; O2SAT 98
[2023-08-27] VITALS (11 sets, daily range): BP systolic 141–183; BP diastolic 64–93; PULSE 60–93; RESP 14–20; TEMP 36.1–37.1; O2SAT 96–99
[2023-08-27] MEDS: Omeprazole 20 MG CAPSULE.DR PO (05:35)
[2023-08-27 07:19] LABS: Hematocrit 34.8 % (37.0-47.0); Hemoglobin 11.7 g/dl (12.0-16.0); Mean Corpuscular HGB Conc 33.6 g/dl (31.0-35.0); Mean Corpuscular Hemoglobin 29.2 pg (27.0-33.0); Mean Corpuscular Volume 86.8 fL (80.0-98.0); Mean Platelet Volume 9.8 fL (9.4-12.3); Platelet Count 304 X10*3/uL (160-400); Red Blood Count 4.01 X10*6/uL (4.20-5.50); Red Cell Distribution Width 13.4 % (11.0-16.0)
[2023-08-27] MEDS: Fluticasone/Vilanterol 100/25 BLST.W.DEV 1 PUFF INHALE (07:36)
[2023-08-27 07:58] LABS: Anion Gap 13 (12-20); Blood Urea Nitrogen 14 mg/dL (9-16); Calcium 9.2 mg/dL (8.4-10.2); Carbon Dioxide 28 mmol/L (22-29); Chloride 97 mmol/L (96-108); Creatinine Clr Calc Pharmacy 90.7; Estimated Glomerular Filt Rate > 60; Glucose Fasting 137 mg/dL (60-99); Magnesium 1.7 mg/dL (1.6-2.6); Potassium 3.7 mmol/L (3.3-5.1); Sodium 134 mmol/L (135-145)
[2023-08-27] MEDS: Apixaban 5 MG TABLET PO ×2 (09:34→22:16)
[2023-08-27] MEDS: Aspirin 81 MG TAB.CHEW PO (09:34)
[2023-08-27] MEDS: Metoprolol Tartrate 25 MG TABLET PO ×4 (09:34→22:15)
[2023-08-27] MEDS: Atorvastatin Calcium 20 MG TABLET PO (09:34)
[2023-08-27] MEDS: dexAMETHasone sod phosphate 4 MG/ML VIAL 6 MG IVPUSH (09:34)
[2023-08-27] MEDS: Sertraline HCL 25 MG TABLET PO (09:34)
[2023-08-27] MEDS: traMADoL HCL 50 MG TABLET 25 MG PO ×3 (09:39→22:15)
--- NOTE | 2023-08-27 10:38 | MHC.CM.PN ---
EMR REVIEWED, PT W/COPD EXAC/COVID 19 REMAINS ON SUPPLEMENTAL O2 3L NC, IV DECADRON, PER HOSPITALIST ANTIC PT WILL REMAIN INPT THROU W/E, PLN CONT'S TO BE TO RETURN TO [facility] ONCE MEDICALLY CLEARED, CM WILL CONT TO FOLLOW D/C NEEDS.
--- NOTE | 2023-08-27 11:07 | MHC.CLN ---
F/U PT WITH INCREASED NUTRITION RISK R/T PRESSURE INJURY PO INTAKE REMAINS 50-75% DIET RX: CARDIAC 1500ML FR-APPROPRIATE PT RECEIVING ENSURE MAX BID TO PROMOTE WOUND HEALING SUPP PROVIDES 300KCALS, 60G PROTEIN NOTED PI NOW STAGE 2 CONTINUE TO MONITOR PO INTAKE CLOSELY
--- NOTE | 2023-08-27 11:14 | P.PNIM_ITS ---
Subjective Subjective Date of Service: 08/27/23 Interval History: weakness, sob Physical Exam 2 Vital Signs: Vital Signs: Last Vital Signs Temp 98.7 F 08/27/23 07:54 Pulse 93 08/27/23 07:54 Resp 20 08/27/23 07:54 BP 183/88 H 08/27/23 07:54 Pulse Ox 98 08/27/23 07:54 O2 Del Method Nasal Cannula 08/27/23 07:54 O2 Flow Rate 3 08/27/23 07:54 FiO2 99 08/25/23 03:07 BMI result Body Mass Index 21.4 Const: General: cooperative, comfortable, no acute distress, alert, awake and ill appearing Nutritional Appearance: cachectic and malnourished O rientation/consciousness: patient oriented x3 HEENT: Head: Yes normocephalic and Yes atraumatic Neck: Neck: Yes trachea midline, Yes supple and Yes no JVD Resp: Effort & Inspection: decreased respiratory effort Auscultation: clear to auscultation bilaterally and diminished lung sounds Cardio: Rate: bradycardic Rhythm: abnormal rhythm irregularly irregular Heart sounds: S1 normal heart sound present and S2 normal heart sound present GI: Auscultation: normal bowel sounds Skin: General skin exam: no rashes or lesions noted and ecchymosis Neuro: General: patient oriented x3 and no focal motor deficits Extrem: General: Yes no clubbing, cyanosis or edema Objective Data Active Medications Acetaminophen (Acetaminophen 325 Mg Tablet) 650 mg PO Q4H PRN PRN Reason: Pain, Mild (Pain Scale 1-3) Last Admin: 08/25/23 18:47 Dose: 650 mg Documented By: FLORIDALMA Acetazolamide (Acetazolamide 250 Mg Tablet) 250 mg PO BID ON LICENSE OF [facility] Last Admin: 08/24/23 19:58 Dose: 250 mg Documented By: KRISTY Albuterol Sulfate (Albuterol Sulfate 90 Mcg 8 Gm Inhaler) 2 puff INHALE RQ4H PRN PRN Reason: Wheezing Last Admin: 08/26/23 22:19 Dose: 2 puff Documented By: MER Albuterol/Ipratropium (Albuterol/Iprat 2.5/0.5mg 3 Ml Ampul.Neb) 3 ml INHALE RQ4H WHILE AWAKE ON LICENSE OF [facility] Last Admin: 08/27/23 07:39 Dose: Not Given Documented By: AGUILAR Non-Admin Reason: Patient Refused Albuterol/Ipratropium (Albuterol/Iprat 2.5/0.5mg 3 Ml Ampul.Neb) 3 ml INHALE Q4H PRN PRN Reason: Wheezing Apixaban (Apixaban 5 Mg Tablet) 5 mg PO BID ON LICENSE OF [facility] Last Admin: 08/27/23 09:34 Dose: 5 mg Documented By: STEPHENIE Aspirin (Aspirin 81 Mg Tab.Chew) 81 mg PO DAILY ON LICENSE OF [facility] Last Admin: 08/27/23 09:34 Dose: 81 mg Documented By: STEPHENIE Atorvastatin Calcium (Atorvastatin Calcium 20 Mg Tablet) 20 mg PO DAILY ON LICENSE OF [facility] Last Admin: 08/27/23 09:34 Dose: 20 mg Documented By: STEPHENIE Calcium Carbonate (Calcium Carbonate 750 Mg Tab.Chew) 750 mg PO Q6H PRN PRN Reason: Heartburn Last Admin: 08/24/23 22:29 Dose: 750 mg Documented By: KRISTY Dexamethasone Sodium Phosphate (Dexamethasone Sod Phosphate 4 Mg/Ml Vial) 6 mg IVPUSH DAILY ON LICENSE OF [facility] Last Admin: 08/27/23 09:34 Dose: 6 mg Documented By: STEPHENIE Digoxin (Digoxin 0.25 Mg Tablet) 0.25 mg PO DAILY ON LICENSE OF [facility] Last Admin: 08/25/23 10:12 Dose: 0.25 mg Documented By: CRUZ Diltiazem HCl (Diltiazem Hcl Cd 240 Mg Cap.Er.Deg) 240 mg PO DAILY ON LICENSE OF [facility]; Protocol Last Admin: 08/25/23 10:11 Dose: 240 mg Documented By: CRUZ Fluticasone/Vilanterol (Fluticasone/Vilanterol 100/25 Blst.W.Dev) 1 puff INHALE RDAILY ON LICENSE OF [facility] Last Admin: 08/27/23 07:36 Dose: 1 puff Documented By: AGUILAR Furosemide (Furosemide 40 Mg Tablet) 40 mg PO DAILY ON LICENSE OF [facility]; Protocol Last Admin: 08/24/23 09:16 Dose: 40 mg Documented By: HELLEN Hydroxyzine HCl (Hydroxyzine Hcl 25 Mg Tablet) 25 mg PO Q8H PRN PRN Reason: Anxiety Lorazepam (Lorazepam 0.5 Mg Tablet) 0.5 mg PO Q12H PRN PRN Reason: Anxiety Last Admin: 08/24/23 18:23 Dose: 0.5 mg Documented By: HELLEN Metoprolol Succinate (Metoprolol Succinate Er 50 Mg Tab.Er.24h) 50 mg PO BID ON LICENSE OF [facility]; Protocol Last Admin: 08/25/23 10:12 Dose: 50 mg Documented By: CRUZ Metoprolol Tartrate (Metoprolol Tartrate 25 Mg Tablet) 25 mg PO QID ON LICENSE OF [facility]; Protocol Last Admin: 08/27/23 09:34 Dose: 25 mg Documented By: STEPHENIE Omeprazole (Omeprazole 20 Mg Capsule.Dr) 20 mg PO DAILY@0630 ON LICENSE OF [facility] Last Admin: 08/27/23 05:35 Dose: 20 mg Documented By: JUVENAL Sertraline HCl (Sertraline Hcl 25 Mg Tablet) 25 mg PO DAILY ON LICENSE OF [facility] Last Admin: 08/27/23 09:34 Dose: 25 mg Documented By: STEPHENIE Tramadol HCl (Tramadol Hcl 50 Mg Tablet) 25 mg PO Q6H PRN PRN Reason: Pain, Moderate(Pain Scale 4-6) Last Admin: 08/27/23 09:39 Dose: 25 mg Documented By: STEPHENIE Labs 08/27/23 06:57 08/27/23 06:57 Labs: Laboratory Results - last 24 hr 08/27/23 06:57 MCV 86.8 MCH 29.2 MCHC 33.6 RDW 13.4 Plt Count 304 MPV 9.8 Absolute Nucleated RBC 0.000 Nucleated RBC % (auto) 0.0 Anion Gap 13 Estim Creat Clear Calc 90.7 Estimated GFR > 60 Fasting Glucose 137 H Calcium 9.2 Magnesium 1.7 Microbiology Microbiology Results: Microbiology 08/21/23 09:46 Blood Culture - Final Blood - Venous No growth after 5 days. 08/21/23 09:42 Blood Culture - Final Blood - Venous No growth after 5 days. Assessment and Plan (1) COPD (chronic obstructive pulmonary disease): Status: Acute Plan 62F PMH copd, chronic hypoxic and hypercapnic respiratory failure on 2 L home O2, unspecified atrial fibrillation on apixaban, hfpef, transfered from ICU with covid 19 acute on chronic resp failure. Initally intubated by EMS and subsequently extubated upon arrival to ER. Required Bipap in ICU, now downgraded, had episode of kennedy to 30s on 08/25/23 while sleeping, improved when awake to 60s Acute hypoxic and hypercapneic resp failure secondary to copd with acute decompensation due to covid 19 Continue decadron, duonebs, Rocephin, azithro. supplemental oxygen, on 2 liters at this time Hyperkalemia Lokelma HFpEF no exacerbation will hold lasix for contraction alkalosis Afib/flutter unspecified with bradycardia hoeld metoprolol, diltiazem, digoxin now restarting lopressor 25mg q6h cardio appreciated eliquis Diabetes 2 ss, ada diet diabetic neuropathy Gabapentin Mental health continue home medications GRISELDA cpap DVT prophylaxis with Eliquis Full code reason for continued hospitalization:heart rate control Time Spent With Patient Time: Total time managing care of this patient today ____ minutes. Quality Stroke Does the patient have a stroke diagnosis?: No VTE Prior VTE?: No VTE Risk Level:: Medical - moderate - high VTE Device Contraindication: N/A - Device Ordered VTE Drug Contraindication: N/A - Med Ordered
[2023-08-27] MEDS: Albuterol/Iprat 2.5/0.5MG 3 ML AMPUL.NEB INHALE ×2 (12:04→19:38)
[2023-08-27] MEDS: Nystatin Powder 15 GM BOTTLE 1 APPL TOPICAL ×2 (13:01→22:17)
[2023-08-27] MEDS: Acetaminophen 325 MG TABLET 650 MG PO (13:04)
--- NOTE | 2023-08-27 14:07 | PM.PNCARD ---
Subjective Subjective Date of Service: 08/27/23 Principal diagnosis: atrial fibrillation, Interval history: patient heart rate is improved as expected. No significant pauses overnight. Blood pressure is elevated. Review of Systems Review of Systems Yes all other systems are reviewed and are negative Physical Exam Vital Signs: Last Vital Signs Temp 98.1 F 08/27/23 11:16 Pulse 90 08/27/23 12:04 Resp 18 08/27/23 12:04 BP 162/81 H 08/27/23 11:16 Pulse Ox 99 08/27/23 11:16 O2 Del Method Nasal Cannula 08/27/23 11:16 O2 Flow Rate 3 08/27/23 11:16 FiO2 99 08/25/23 03:07 BMI result Body Mass Index 21.4 Const General: cooperative, comfortable, no acute distress, alert, awake and ill appearing Nutritional Appearance: cachectic and malnourished Orientation/consciousness: patient oriented x3 HEENT Head: Yes normocephalic and Yes atraumatic Neck Neck: Yes trachea midline, Yes supple and Yes no JVD Resp Effort & Inspection: decreased respiratory effort Auscultation: clear to auscultation bilaterally and diminished lung sounds Cardio Rate: bradycardic Rhythm: abnormal rhythm irregularly irregular Heart sounds: S1 normal heart sound present and S2 normal heart sound present GI Auscultation: normal bowel sounds Skin General skin exam: no rashes or lesions noted and ecchymosis Neuro General: patient oriented x3 and no focal motor deficits Extrem General: Yes no clubbing, cyanosis or edema Objective Labs and Meds 08/27/23 06:57 08/27/23 06:57 Lab results: Laboratory Results - last 24 hr 08/27/23 06:57 WBC 18.0 H RBC 4.01 L Hgb 11.7 L Hct 34.8 L MCV 86.8 MCH 29.2 MCHC 33.6 RDW 13.4 Plt Count 304 MPV 9.8 Absolute Nucleated RBC 0.000 Nucleated RBC % (auto) 0.0 Sodium 134 L Potassium 3.7 Chloride 97 Carbon Dioxide 28 Anion Gap 13 BUN 14 Creatinine 0.45 L Estim Creat Clear Calc 90.7 Estimated GFR > 60 Fasting Glucose 137 H Calcium 9.2 Magnesium 1.7 Progress Note: A&P Assessment and plan (1) Chronic a-fib: Status: Acute Assessment and Plan: Chronic atrial fibrillation with improved rate since withholding her medications. Can resume metoprolol as initial rate control strategy. Continue monitor. Rate can be further modulators outpatient. Continue full oral anticoagulation Kristian. Recommend follow-up with her patient intake coordinator in 2-4 weeks. Heart failure syndrome appears to be stable at this point time. Will sign of the case. Thank you for allowing me to partake in the care Time Spent With Patient Time: Total time managing care of this patient today ____ minutes. Progress Note: Quality Stroke Does the patient have a stroke diagnosis?: No Procedures Date of Service Date of Service: 08/27/23
[2023-08-28 03:48] VITALS: BP 149/66; PULSE 89; RESP 19; TEMP 36.6; O2SAT 96
[2023-08-28] MEDS: traMADoL HCL 50 MG TABLET 25 MG PO ×3 (05:49→18:04)
[2023-08-28] MEDS: Omeprazole 20 MG CAPSULE.DR PO (05:50)
[2023-08-28 07:05] LABS: Hematocrit 36.3 % (37.0-47.0); Hemoglobin 12.3 g/dl (12.0-16.0); Mean Corpuscular HGB Conc 33.9 g/dl (31.0-35.0); Mean Corpuscular Hemoglobin 29.9 pg (27.0-33.0); Mean Corpuscular Volume 88.3 fL (80.0-98.0); Mean Platelet Volume 10.1 fL (9.4-12.3); Platelet Count 304 X10*3/uL (160-400); Red Blood Count 4.11 X10*6/uL (4.20-5.50); Red Cell Distribution Width 13.6 % (11.0-16.0); White Blood Count 23.4 X10*3/uL (4.8-10.8)
[2023-08-28 07:24] LABS: Anion Gap 14 (12-20); Blood Urea Nitrogen 10 mg/dL (9-16); Calcium 8.9 mg/dL (8.4-10.2); Carbon Dioxide 27 mmol/L (22-29); Chloride 95 mmol/L (96-108); Creatinine Clr Calc Pharmacy 104.6; Estimated Glomerular Filt Rate > 60; Glucose Fasting 79 mg/dL (60-99); Magnesium 1.6 mg/dL (1.6-2.6); Potassium 3.4 mmol/L (3.3-5.1); Sodium 133 mmol/L (135-145)
[2023-08-28 07:31] VITALS: BP 131/77; PULSE 86; RESP 18; TEMP 36.4; O2SAT 97
[2023-08-28] MEDS: Fluticasone/Vilanterol 100/25 BLST.W.DEV 1 PUFF INHALE (07:57)
[2023-08-28 07:59] VITALS: PULSE 89; RESP 16; O2SAT 96
[2023-08-28] MEDS: dexAMETHasone sod phosphate 4 MG/ML VIAL 6 MG IVPUSH (08:31)
[2023-08-28] MEDS: Sertraline HCL 25 MG TABLET PO (08:32)
[2023-08-28] MEDS: Aspirin 81 MG TAB.CHEW PO (08:32)
[2023-08-28] MEDS: Metoprolol Tartrate 25 MG TABLET PO ×4 (08:32→22:39)
[2023-08-28] MEDS: Atorvastatin Calcium 20 MG TABLET PO (08:32)
[2023-08-28] MEDS: Apixaban 5 MG TABLET PO ×2 (08:32→22:39)
[2023-08-28] MEDS: Magnesium Sulfate/H2O 2 GM/50 ML PIGGYBACK IV (08:40)
[2023-08-28] MEDS: Nystatin Powder 15 GM BOTTLE 1 APPL TOPICAL ×2 (08:48→14:52)
[2023-08-28] MEDS: Acetaminophen 325 MG TABLET 650 MG PO ×2 (08:48→14:52)
--- NOTE | 2023-08-28 10:28 | P.PNIM_ITS ---
Subjective Subjective Date of Service: 08/28/23 Interval History: weakness, sob Physical Exam 2 Vital Signs: Vital Signs: Last Vital Signs Temp 97.5 F 08/28/23 07:31 Pulse 89 08/28/23 07:59 Resp 16 08/28/23 07:59 BP 131/77 08/28/23 07:31 Pulse Ox 97 08/28/23 07:31 O2 Del Method Nasal Cannula 08/28/23 07:31 O2 Flow Rate 2 08/28/23 07:31 FiO2 98 08/27/23 23:40 BMI result Body Mass Index 21.4 Objective Data Active Medications Acetaminophen (Acetaminophen 325 Mg Tablet) 650 mg PO Q4H PRN PRN Reason: Pain, Mild (Pain Scale 1-3) Last Admin: 08/28/23 08:48 Dose: 650 mg Documented By: BIENVENIDO Acetazolamide (Acetazolamide 250 Mg Tablet) 250 mg PO BID [facility] Last Admin: 08/24/23 19:58 Dose: 250 mg Documented By: KRISTY Albuterol Sulfate (Albuterol Sulfate 90 Mcg 8 Gm Inhaler) 2 puff INHALE RQ4H PRN PRN Reason: Wheezing Last Admin: 08/26/23 22:19 Dose: 2 puff Documented By: MER Albuterol/Ipratropium (Albuterol/Iprat 2.5/0.5mg 3 Ml Ampul.Neb) 3 ml INHALE RQ4H WHILE AWAKE [facility] Last Admin: 08/28/23 07:58 Dose: Not Given Documented By: PATO Non-Admin Reason: Patient Refused Albuterol/Ipratropium (Albuterol/Iprat 2.5/0.5mg 3 Ml Ampul.Neb) 3 ml INHALE Q4H PRN PRN Reason: Wheezing Apixaban (Apixaban 5 Mg Tablet) 5 mg PO BID [facility] Last Admin: 08/28/23 08:32 Dose: 5 mg Documented By: BIENVENIDO Aspirin (Aspirin 81 Mg Tab.Chew) 81 mg PO DAILY [facility] Last Admin: 08/28/23 08:32 Dose: 81 mg Documented By: BIENVENIDO Atorvastatin Calcium (Atorvastatin Calcium 20 Mg Tablet) 20 mg PO DAILY [facility] Last Admin: 08/28/23 08:32 Dose: 20 mg Documented By: BIENVENIDO Calcium Carbonate (Calcium Carbonate 750 Mg Tab.Chew) 750 mg PO Q6H PRN PRN Reason: Heartburn Last Admin: 08/24/23 22:29 Dose: 750 mg Documented By: KRISTY Dexamethasone Sodium Phosphate (Dexamethasone Sod Phosphate 4 Mg/Ml Vial) 6 mg IVPUSH DAILY [facility] Last Admin: 08/28/23 08:31 Dose: 6 mg Documented By: BIENVENIDO Digoxin (Digoxin 0.25 Mg Tablet) 0.25 mg PO DAILY [facility] Last Admin: 08/25/23 10:12 Dose: 0.25 mg Documented By: CRUZ Diltiazem HCl (Diltiazem Hcl Cd 240 Mg Cap.Er.Deg) 240 mg PO DAILY [facility]; Protocol Last Admin: 08/25/23 10:11 Dose: 240 mg Documented By: CRUZ Fluticasone/Vilanterol (Fluticasone/Vilanterol 100/25 Blst.W.Dev) 1 puff INHALE RDAILY [facility] Last Admin: 08/28/23 07:57 Dose: 1 puff Documented By: PATO Furosemide (Furosemide 40 Mg Tablet) 40 mg PO DAILY [facility]; Protocol Last Admin: 08/24/23 09:16 Dose: 40 mg Documented By: HELLEN Hydroxyzine HCl (Hydroxyzine Hcl 25 Mg Tablet) 25 mg PO Q8H PRN PRN Reason: Anxiety Metoprolol Succinate (Metoprolol Succinate Er 50 Mg Tab.Er.24h) 50 mg PO BID [facility]; Protocol Last Admin: 08/25/23 10:12 Dose: 50 mg Documented By: CRUZ Metoprolol Tartrate (Metoprolol Tartrate 25 Mg Tablet) 25 mg PO QID [facility]; Protocol Last Admin: 08/28/23 08:32 Dose: 25 mg Documented By: BIENVENIDO Nystatin (Nystatin Powder 15 Gm Bottle) 1 appl TOPICAL TID [facility]; Protocol Last Admin: 08/28/23 08:48 Dose: 1 appl Documented By: BIENVENIDO Omeprazole (Omeprazole 20 Mg Capsule.Dr) 20 mg PO DAILY@0630 [facility] Last Admin: 08/28/23 05:50 Dose: 20 mg Documented By: ANNEL Sertraline HCl (Sertraline Hcl 25 Mg Tablet) 25 mg PO DAILY [facility] Last Admin: 08/28/23 08:32 Dose: 25 mg Documented By: BIENVENIDO Tramadol HCl (Tramadol Hcl 50 Mg Tablet) 25 mg PO Q6H PRN PRN Reason: Pain, Moderate(Pain Scale 4-6) Last Admin: 08/28/23 05:49 Dose: 25 mg Documented By: ANNEL Labs 08/28/23 06:26 08/28/23 06:26 Labs: Laboratory Results - last 24 hr 08/28/23 06:26 MCV 88.3 MCH 29.9 MCHC 33.9 RDW 13.6 Plt Count 304 MPV 10.1 Absolute Nucleated RBC 0.000 Nucleated RBC % (auto) 0.0 Anion Gap 14 Estim Creat Clear Calc 104.6 Estimated GFR > 60 Fasting Glucose 79 Calcium 8.9 Magnesium 1.6 Assessment and Plan (1) COPD (chronic obstructive pulmonary disease): Status: Acute Plan 62F PMH copd, chronic hypoxic and hypercapnic respiratory failure on 2 L home O2, unspecified atrial fibrillation on apixaban, hfpef, transfered from ICU with covid 19 acute on chronic resp failure. Initally intubated by EMS and subsequently extubated upon arrival to ER. Required Bipap in ICU, now downgraded, had episode of kennedy to 30s on 08/25/23 while sleeping, improved when awake to 60s Acute hypoxic and hypercapneic resp failure secondary to copd with acute decompensation due to covid 19 Continue decadron, duonebs, Rocephin, azithro. supplemental oxygen, on 2 liters at this time Hyperkalemia Lokelma HFpEF no exacerbation will hold lasix for contraction alkalosis Afib/flutter unspecified with bradycardia hoeld metoprolol, diltiazem, digoxin restarted lopressor 25mg q6h cardio appreciated justin now better controlled Diabetes 2 ss, ada diet diabetic neuropathy Gabapentin Mental health continue home medications GRISELDA cpap DVT prophylaxis with Eliquis Full code reason for continued hospitalization:heart rate control Time Spent With Patient Time: Total time managing care of this patient today ____ minutes. Quality Stroke Does the patient have a stroke diagnosis?: No VTE Prior VTE?: No VTE Risk Level:: Medical - moderate - high VTE Device Contraindication: N/A - Device Ordered VTE Drug Contraindication: N/A - Med Ordered
--- NOTE | 2023-08-28 10:34 | P.DS_ITS ---
DS: Providers Provider Date of Service: 08/29/23 Date of admission: 08/21/23 13:32 Primary care physician: Joseph Goins MD Consults: 08/22/23 11:19 Consult to Wound Care Routine Consulting Provider: [facility] Wound Care Management Reason for consultation: pressure injury to coccyx Has provider been notified: Yes 08/25/23 17:50 Consult to Cardiology Routine Consulting Provider: [facility] Cardiovascular Services Reason for consultation: bradycardia 35 DS: Diagnosis Discharge Diagnosis (1) COPD (chronic obstructive pulmonary disease): Status: Acute DS: Summary Hospital Course Hospital Course: from initial hpi: 62 Y F, COPD c/b chronic mixed respiratory failure, on 2L NC, CHF, atrial fibrillation, on apixaban, resides at nursing facility, recent admission/discharge for COPD exacerbation, re-presenting w/ dyspnea, intubated by EMS, found to be alert, extubated by ED hospital course: Patient was admitted for acute hypoxic and hypercapnic respiratory failure 2nd to COPD with acute decompensation due to COVID-19. Initially intubated by EMS but then extubated in the ER and admitted to ICU for BiPAP. Was taken off BiPAP and downgraded to medical floor. Treated with Decadron, bronchodilators, Rocephin, azithromycin. Weaned down to 2 L oxygen. For hyperkalemia received low,. For chronic diastolic CHF Lasix had been held for contraction alkalosis, this will be restarted on discharge. For chronic atrial fibrillation course was complicated by episodes of bradycardia and tachycardia. Her diltiazem and digoxin have been held and she has continued to chest on metoprolol. She will continue on Eliquis. For diabetes was on insulin sliding scale. for regina uses cpap at night. patient feeling better will be discharged to snf for str. Time Spent with Patient Time attestation: Total time managing care of this patient today ____ minutes. Discharge coordination time: Greater than 30 minutes Quality: Safe Use of Opioids Does Pt have an Active Cancer Diagnosis on the Problem List?: No Quality: Stroke Does the patient have a stroke diagnosis?: No Physical Exam Vital Signs: Vital Signs: Last Vital Signs Temp 97.5 F 08/28/23 07:31 Pulse 89 08/28/23 07:59 Resp 16 08/28/23 07:59 BP 131/77 08/28/23 07:31 Pulse Ox 97 08/28/23 07:31 O2 Del Method Nasal Cannula 08/28/23 07:31 O2 Flow Rate 2 08/28/23 07:31 FiO2 98 08/27/23 23:40 BMI result Body Mass Index 21.4 Const: General: cooperative, comfortable, no acute distress, alert, awake and ill appearing Nutritional Appearance: cachectic and malnourished Orientat ion/consciousness: patient oriented x3 HEENT: Head: Yes normocephalic and Yes atraumatic Neck: Neck: Yes trachea midline, Yes supple and Yes no JVD Resp: Effort & Inspection: decreased respiratory effort Auscultation: clear to auscultation bilaterally and diminished lung sounds Cardio: Rate: bradycardic Rhythm: abnormal rhythm irregularly irregular Heart sounds: S1 normal heart sound present and S2 normal heart sound present GI: Auscultation: normal bowel sounds Skin: General skin exam: no rashes or lesions noted and ecchymosis Neuro: General: patient oriented x3 and no focal motor deficits Extrem: General: Yes no clubbing, cyanosis or edema DS: Data Data Completed and Pending Completed studies during hospitalization [Text1]: Procedures Assistance with Respiratory Ventilation, Less than 24 Consecutive Hours, Continuous Positive Airway Pressure (08/13/23) Labs on day of discharge: Laboratory Results - last 24 hr 08/28/23 06:26 WBC 23.4 H RBC 4.11 L Hgb 12.3 Hct 36.3 L MCV 88.3 MCH 29.9 MCHC 33.9 RDW 13.6 Plt Count 304 MPV 10.1 Absolute Nucleated RBC 0.000 Nucleated RBC % (auto) 0.0 Sodium 133 L Potassium 3.4 Chloride 95 L Carbon Dioxide 27 Anion Gap 14 BUN 10 Creatinine 0.39 L Estim Creat Clear Calc 104.6 Estimated GFR > 60 Fasting Glucose 79 Calcium 8.9 Magnesium 1.6 Discharge Plan Discharge Anticipated Discharge Date/Time: 08/28/23 10:29 Patient Disposition: Xfer SNF Discharge Diagnosis: afib, covid Referrals: [facility] [Outside] - 1 Week Joseph Goins MD [Primary Care Provider] - 1 Week Discharge Medications: Continued acetaminophen 325 mg Tablet 650 mg PO Q6H PRN (Reason: temp > 100/general discomfort) fluticasone propion-salmeterol [Advair Diskus] 250-50 mcg/dose Blister With Device 1 inh INHALATION BID apixaban 5 mg Tablet 5 mg PO BID aspirin 81 mg Tablet,Delayed Release (Dr/Ec) 81 mg PO DAILY atorvastatin 20 mg Tablet 20 mg PO BEDTIME cholecalciferol (vitamin D3) 25 mcg (1,000 unit) Tablet 25 mcg PO DAILY guaifenesin 100 mg/5 mL Liquid 200 mg PO Q8H PRN (Reason: Cough) bisacodyl [Dulcolax (bisacodyl)] 10 mg Suppository 10 mg MS Q3D PRN (Reason: Constipation) Patient Comments: IF NO BOWEL MOVEMENT AND MOM INEFFECTIVE lactulose 10 gram/15 mL Solution 20 g PO Q12H PRN (Reason: Constipation) Fleet Enema 19-7 gram/118 mL Enema 118 ml MS DAILY PRN (Reason: Constipation) folic acid 1 mg Tablet 1 mg PO DAILY furosemide 40 mg Tablet 40 mg PO DAILY gabapentin 300 mg Capsule 600 mg PO TID hydroxyzine HCl 10 mg Tablet 30 mg PO TID PRN (Reason: Anxiety) Rx Instructions: ORDERED FOR 14 DAYS, END DATE 08/24/23 Incruse Ellipta 62.5 mcg/actuation Blister With Device 1 inh INHALATION DAILY ipratropium-albuterol 0.5 mg-3 mg(2.5 mg base)/3 mL Solution For Nebulization 3 ml INHALATION Q6H PRN (Reason: SHORTNESS OF BREATH/WHEEZE) lorazepam 0.5 mg Tablet 0.5 mg PO BID PRN (Reason: Anxiety) melatonin 3 mg Tablet 3 mg PO BEDTIME metoprolol succinate 50 mg Tablet Extended Release 24 Hr 50 mg PO BID magnesium hydroxide [Milk of Magnesia] 400 mg/5 mL Suspension 30 ml PO BEDTIME PRN (Reason: Constipation) multivitamin Tablet 1 tab PO DAILY sennosides-docusate sodium [Senna Plus] 8.6-50 mg Tablet 2 tab-cap PO BEDTIME thiamine HCl (vitamin B1) 100 mg Tablet 100 mg PO DAILY pantoprazole [Protonix] 40 mg Tablet,Delayed Release (Dr/Ec) 40 mg PO DAILY nicotine 21 mg/24 hr Patch 24 Hour 1 patch TRANSDERMAL DAILY sertraline 25 mg Tablet 25 mg PO DAILY Santyl 250 unit/gram Ointment 1 appl TOPICAL DAILY Rx Instructions: APPLY TO COCCYX albuterol sulfate [Ventolin HFA] 90 mcg/actuation Hfa Aerosol Inhaler 1 inh INHALATION QID PRN (Reason: Wheezing) oxycodone 5 mg Tablet 2.5 mg PO Q6H PRN (Reason: Pain) prednisone 20 mg Tablet 20 mg PO DAILY Qty: 3 0RF Discontinued diltiazem HCl [Cardizem LA] 180 mg Tablet Extended Release 24 Hr 180 mg PO DAILY digoxin 250 mcg (0.25 mg) Tablet 250 mcg PO DAILY Discharge Orders: Discharge Order (Routine); Ordered 08/29/23 Ordered By: Jh Welch Diet: Advance to usual diet Activity on Discharge: As tolerated Stand Alone Forms: Patient Portal Discharge page Care Plan Goals: recovery Health Concerns: afib, covid Plan of Treatment: holding chrontorpic meds except metoprolol, rehab Assessment: see above
[2023-08-28 11:24] VITALS: BP 147/82; PULSE 82; RESP 18; TEMP 36.2; O2SAT 94
--- NOTE | 2023-08-28 11:45 | MHC.CM.PN ---
Addendum entered by Doris Watkins 08/28/23 12:37: Notification received from RN: KESHAV on hold today. Transport cancelled. [facility] has been notified . Original Note: IMM 08/28/23 Patient is discharged today. She will return to [facility]. HCP/Holly has been notified. 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 All discharge info has been sent to the facility via [facility].
[2023-08-28] MEDS: Lidocaine 4 % Patch ADH..PATCH 1 PATCH TRANSDERMA (13:22)
[2023-08-28 15:31] VITALS: BP 144/79; PULSE 78; RESP 18; TEMP 36.2; O2SAT 97
[2023-08-28 19:53] VITALS: BP 145/70; PULSE 80; RESP 17; TEMP 36.2; O2SAT 99
[2023-08-29] VITALS: BP 157/76; PULSE 80; TEMP 36.1; O2SAT 99
[2023-08-29] MEDS: Albuterol Sulfate 90 MCG 8 GM INHALER 2 PUFF INHALE (01:27)
[2023-08-29 03:07] VITALS: BP 137/66; PULSE 77; RESP 20; TEMP 36.2; O2SAT 99
[2023-08-29] MEDS: Omeprazole 20 MG CAPSULE.DR PO (06:23)
[2023-08-29 06:25] LABS: Hematocrit 35.6 % (37.0-47.0); Hemoglobin 12.1 g/dl (12.0-16.0); Mean Corpuscular Volume 85.4 fL (80.0-98.0); Platelet Count 359 X10*3/uL (160-400); Red Blood Count 4.17 X10*6/uL (4.20-5.50); Red Cell Distribution Width 13.6 % (11.0-16.0); White Blood Count 17.9 X10*3/uL (4.8-10.8)
[2023-08-29] MEDS: traMADoL HCL 50 MG TABLET 25 MG PO ×2 (06:43→13:02)
[2023-08-29 06:53] LABS: Anion Gap 14 (12-20); Blood Urea Nitrogen 13 mg/dL (9-16); Calcium 8.9 mg/dL (8.4-10.2); Carbon Dioxide 28 mmol/L (22-29); Chloride 95 mmol/L (96-108); Estimated Glomerular Filt Rate > 60; Glucose Fasting 117 mg/dL (60-99); Potassium 3.7 mmol/L (3.3-5.1); Sodium 133 mmol/L (135-145)
[2023-08-29 07:21] VITALS: BP 159/89; PULSE 88; RESP 20; TEMP 36.9; O2SAT 99
[2023-08-29] MEDS: Fluticasone/Vilanterol 100/25 BLST.W.DEV 1 PUFF INHALE (08:16)
[2023-08-29 08:18] VITALS: PULSE 88; RESP 16; O2SAT 98
[2023-08-29] MEDS: Aspirin 81 MG TAB.CHEW PO (08:31)
[2023-08-29] MEDS: Metoprolol Tartrate 25 MG TABLET PO ×2 (08:32→13:02)
[2023-08-29] MEDS: dexAMETHasone sod phosphate 4 MG/ML VIAL 6 MG IVPUSH (08:32)
[2023-08-29] MEDS: Atorvastatin Calcium 20 MG TABLET PO (08:32)
[2023-08-29] MEDS: Sertraline HCL 25 MG TABLET PO (08:32)
[2023-08-29] MEDS: Apixaban 5 MG TABLET PO (08:32)
[2023-08-29] MEDS: Nystatin Powder 15 GM BOTTLE 1 APPL TOPICAL (08:37)
[2023-08-29] MEDS: Acetaminophen 325 MG TABLET 650 MG PO (08:40)
--- NOTE | 2023-08-29 10:39 | MHC.CM.PN ---
MD order for D/C to SNF today. Rescheduled ambulance transport (from yesterday) to for today at 14:00, notified Center via [employer]scripts.
--- NOTE | 2023-08-29 10:48 | MHC.CM.PN ---
New ambulance form completed and handed to unit manager.
[2023-08-29 11:31] VITALS: BP 147/69; PULSE 89; RESP 20; TEMP 37.4; O2SAT 95
== END 2023-08-29 14:30 | disposition skilled nursing facility (03) | DRG 177 ==
LOC: HO.ED 08:34 → HO.EDOVER 13:43 → HO.ICU 14:58 → HO.IMC 08-22 15:57
PROVIDERS: Nurse Practitioner Acute Care; Admitting Provider Internal Medicine Critical Care Medicine; Emergency Provider Internal Medicine; PCP Family Medicine; Visit Provider Internal Medicine
DX: U07.1 COVID-19 (principal); J12.82 Pneumonia due to coronavirus disease 2019; J96.21 Acute and chronic respiratory failure with hypoxia; J96.22 Acute and chronic respiratory failure with hypercapnia; J44.1 Chronic obstructive pulmonary disease with (acute) exacerbation; I50.32 Chronic diastolic (congestive) heart failure; E87.3 Alkalosis; I48.20 Chronic atrial fibrillation, unspecified; J44.0 Chronic obstructive pulmonary disease with (acute) lower respiratory infection; E11.40 Type 2 diabetes mellitus with diabetic neuropathy, unspecified; G47.33 Obstructive sleep apnea (adult) (pediatric); E87.5 Hyperkalemia; I08.0 Rheumatic disorders of both mitral and aortic valves; R00.1 Bradycardia, unspecified; L89.150 Pressure ulcer of sacral region, unstageable; Z99.81 Dependence on supplemental oxygen; Z87.891 Personal history of nicotine dependence; Z23 Encounter for immunization; Z79.01 Long term (current) use of anticoagulants; Z79.51 Long term (current) use of inhaled steroids; Z79.52 Long term (current) use of systemic steroids; Z79.899 Other long term (current) drug therapy
CPT/HCPCS: 36415; 71045; 76705; 80048; 80053; 82803; 82947; 83605; 83735; 83880; 84145; 84484; 85025; 85027; 85610; 87040; 87635; 93005; 94640; 94660; 94799; 99285; C1758; J0456; J0696; J1100; J1940; J2543; J3475

== ENCOUNTER → 2023-08-21 13:32 | Outpatient (BNV) | payer MEDICARE, MEDICAID, SELFPAY | PROVIDERS: Admitting Provider Internal Medicine Critical Care Medicine; Emergency Provider Internal Medicine; PCP Family Medicine; Visit Provider Nurse Practitioner Acute Care | DX: J44.9 Chronic obstructive pulmonary disease, unspecified (principal) | CPT/HCPCS: 99232; 99233; 99239 ==

== ENCOUNTER → 2023-08-21 13:32 | Outpatient (BNV) | payer MEDICARE, MEDICAID, SELFPAY | PROVIDERS: Admitting Provider Internal Medicine Critical Care Medicine; Emergency Provider Internal Medicine; PCP Family Medicine; Visit Provider Internal Medicine Critical Care Medicine | DX: J44.1 Chronic obstructive pulmonary disease with (acute) exacerbation (principal); I50.9 Heart failure, unspecified; U07.1 COVID-19 | CPT/HCPCS: 99223; 99291 ==

== ENCOUNTER → 2023-08-21 13:32 | Outpatient (BNV) | payer MEDICARE, MEDICAID, SELFPAY | PROVIDERS: Admitting Provider Internal Medicine Critical Care Medicine; Emergency Provider Internal Medicine; PCP Family Medicine; Visit Provider Internal Medicine Cardiovascular Disease | DX: I48.20 Chronic atrial fibrillation, unspecified (principal) | CPT/HCPCS: 99222; 99233 ==

== ENCOUNTER 2023-09-02 22:22 | Inpatient (IN) | payer MEDICARE, MEDICAID, SELFPAY ==
--- NOTE | ~2023-09-02 | CT_ITS ---
EXAMINATION: CT CHEST WITHOUT CONTRAST CLINICAL INFORMATION: Pneumonia versus CHF COMPARISON: Previous chest x-ray most recent from yesterday and chest CT most recent 08/13/2023 TECHNIQUE: Multidetector volumetric CT imaging of the chest was done. Axial MIP volume rendering provided. Sagittal and coronal reformatted images were obtained. This CT examination was performed using dose optimization techniques as appropriate, variously including the following: *Automated exposure control *Adjustment of mA and/or kV according to patient size (this includes techniques or standardized protocols for targeted exams where dose is matched to indication/reason for exam; i.e. extremities or head) *Use of iterative reconstruction technique DLP: 283 mGy-cm FINDINGS: LUNGS: There are increased interstitial markings with interlobular septal thickening seen in the upper lobes. Appearances is questionable for interstitial pulmonary edema. This is new from 08/13/2023. There are several new small right upper lobe nodules, largest measuring 6 mm adjacent to the minor fissure axial image 300 series 5. There is new atelectasis or consolidation in the posterior left upper lobe adjacent to the pleural fissure. There are new small left upper lobe nodules largest measuring 3 mm axial image 148 series 5. There is a new 1.9 cm nodular density in the superior segment of the left lower lobe axial image 169 series 5. There is compressive atelectasis of the bilateral lower lobes from the pleural effusions, right greater than left. There is complete compressive atelectasis of the right lower lobe. MEDIASTINUM: There are small mediastinal lymph nodes. The heart is upper normal in size. There is mild coronary artery calcification. No pericardial effusion. Calcified but normal caliber thoracic aorta. CORONARY ARTERY CALCIFICATION: Mild PLEURA: There is a large right pleural effusion slightly increased from 08/13/2023 CT. There is a moderate left pleural effusion not appreciably changed AXILLA: Bilateral breast implants. No enlarged axillary lymph nodes or chest wall mass. UPPER ABDOMEN: Unremarkable. OSSEOUS STRUCTURES: Multiple thoracic and upper lumbar vertebral body compression fractures and osteopenia. Old right and healing left rib fractures. Healing left lateral sixth and seventh rib fractures. No appreciable change from previous exam. CT/CT chest wo IV con IMPRESSION: Bilateral pleural effusions, right greater than left. Right pleural effusion is large and increased from previous exam. Bilateral lower lobe compressive atelectasis, right greater than left. New interlobular septal thickening in the upper lungs from August 13 CT suggesting interstitial pulmonary edema/CHF. New bilateral nodules and nodular opacities in the upper lungs, greatest in the superior segment of the left lower lobe. A superimposed infectious process should be considered. Osteopenia and multiple thoracic and lumbar vertebral body compression fractures and bilateral rib fractures. Fleischner guidelines were followed.
--- NOTE | ~2023-09-02 | XR_ITS ---
EXAMINATION: XR CHEST CLINICAL INFORMATION: Shortness of breath COMPARISON: 09/03/2023 and selected images from priors TECHNIQUE: AP portable upright (2 images) view of the chest was obtained. FINDINGS: Bilateral right greater than left pleural effusions large on the right and moderate on the left. Dense right lower lobe consolidation and patchy left lower lobe consolidation. On CT and plain radiography disease has worsened over the last 3 weeks. Increased reticular lung markings. Favor pulmonary edema. Grossly stable heart and mediastinum. Coronary and atherosclerotic disease noted. A dominant 2.5 cm left lower lobe pulmonary nodule identified on recent CT likely reflects residual consolidation. Follow-up CT chest is advised in one-3 months time after resolution of acute clinical process. Nonobstructive gas pattern. Diffuse osteopenia. Calcified breast implants. XR/XR chest 1V IMPRESSION: 1. Right greater than left consolidation in the lower lobes and pleural effusions worsening over the last 3 weeks. 2. Interstitial pulmonary edema. 3. Pulmonary nodules. Follow-up chest CT indicated after resolution of acute clinical process.
--- NOTE | ~2023-09-02 | XR_ITS ---
EXAMINATION: XR CHEST CLINICAL INFORMATION: COVID about 2 weeks ago, cough. COMPARISON: Chest radiograph 08/24/2023. TECHNIQUE: Frontal view of the chest was obtained. FINDINGS: Low lung volumes with overlying calcified breast implants limiting evaluation of parenchymal details. However, accounting for these limitations, there is worsening pulmonary aeration in the right mid to lower lung with increased airspace opacities. Mildly increased right-sided pleural effusion. No pneumothorax. Stable cardiomediastinal silhouette. No acute osseous findings. XR/XR chest 1V IMPRESSION: Worsening pulmonary aeration in the right mid to lower lung with increased airspace opacities and increased right-sided pleural effusion. Findings are concerning for an infectious/inflammatory process such as aspiration/atypical pneumonia. Recommend short-term follow-up to ensure resolution after treatment.
--- NOTE | ~2023-09-02 | XR_ITS ---
EXAMINATION: XR CHEST CLINICAL INFORMATION: Shortness of breath COMPARISON: 09/04/2023 and priors TECHNIQUE: AP portable upright view of the chest was obtained. FINDINGS: Persistent moderate-sized right pleural effusion. Persistent small left pleural effusion. Increasing prominence of the central pulmonary vasculature with increased reticular lung markings suspicious for worsening interstitial edema. Nonspecific left greater than right lower lobe consolidation. Nonobstructive gas pattern. No acute osseous finding. Calcified implants. XR/XR chest 1V IMPRESSION: Worsening pulmonary edema. Persistent right greater than left moderate pleural effusion.
--- NOTE | ~2023-09-02 | XR_ITS ---
EXAMINATION: XR CHEST CLINICAL INFORMATION: Shortness of breath COMPARISON: 09/05/2023 TECHNIQUE: Frontal view of the chest was obtained. FINDINGS: Improving pulmonary vascularity. Persistent right mid to lower lung opacity consistent with fluid and/or adjacent atelectasis, infiltrate or edema. Limited evaluation from the calcified breast implants. The cardiac silhouette is comparable. XR/XR chest 1V IMPRESSION: Improved pulmonary vascularity. Persistent right mid to lower lung opacity.
[2023-09-02 22:39] VITALS: BP 105/56; BP 112/82; PULSE 172; PULSE 83; RESP 32; O2SAT 96; O2SAT 98; BMI 16.6
--- NOTE | 2023-09-02 22:41 | ED_ITS ---
HPI - SOB/Dyspnea General Chief Complaint: Upper Respiratory Symptoms Stated Complaint: SOB FROM SNF. 84% RA, 90% POST ALBUTEROL TREATMENT Time Seen by Provider: 09/02/23 22:36 Source: patient Mode of arrival: EMS Limitations: no limitations History of Present Illness HPI Narrative: 62-year-old female with a history of chronic atrial fibrillation, decubital ulcers, COPD oxygen dependent, congestive heart failure, osteoporosis, recently admitted on 08/13/2023 until 08/28/2023 for acute hypoxia and hypercarbic respiratory failure secondary to COPD initially intubated, then extubated in the ER and placed on BiPAP, her chronic atrial fibrillation was complicated by episodes of bradycardia and tachycardia and her diltiazem and digoxin was stopped for continued on metoprolol. The patient told me that 1 hour prior to coming to emergency department she had sudden onset of shortness of breath. EMS reports that the patient's O2 saturation was 80%, she was treated with albuterol in route him placed on 5 L of oxygen via nasal cannula with O2 saturation increasing to 96%. In the emergency department patient is tachycardic with a heart rate of 170, on 3 L her O2 saturation is 96%. she also states that she was COVID positive 2 weeks prior( COVID positive 08/21/2023 ). She states that she has a cough which is nonproductive, she denied fever, chills, chest pain. She has had nausea but no vomiting or diarrhea. She denied myalgias arthralgias. Related Data Home Medications Medication Instructions Recorded Confirmed acetaminophen 325 mg tablet 650 mg PO Q6H PRN temp > 08/13/23 08/21/23 100/general discomfort albuterol sulfate 90 mcg/actuation 1 inh inhalation QID PRN Wheezing 08/13/23 08/21/23 aerosol inhaler (Ventolin HFA) apixaban 5 mg tablet 5 mg PO BID 08/13/23 08/21/23 aspirin 81 mg tablet,delayed 81 mg PO DAILY 08/13/23 08/21/23 release atorvastatin 20 mg tablet 20 mg PO BEDTIME 08/13/23 08/21/23 bisacodyl 10 mg rectal suppository 10 mg OK Q3D PRN Constipation 08/13/23 08/21/23 (Dulcolax (bisacodyl)) cholecalciferol (vitamin D3) 25 25 mcg PO DAILY 08/13/23 08/21/23 mcg (1,000 unit) tablet collagenase clostridium histo. 250 1 appl topical DAILY 08/13/23 08/21/23 unit/gram topical ointment (Santyl) fluticasone 250 mcg-salmeterol 50 1 inh inhalation BID 08/13/23 08/21/23 mcg/dose blistr powdr for inhalation (Advair Diskus) folic acid 1 mg tablet 1 mg PO DAILY 08/13/23 08/21/23 furosemide 40 mg tablet 40 mg PO DAILY 08/13/23 08/21/23 gabapentin 300 mg capsule 600 mg PO TID 08/13/23 08/21/23 guaifenesin 100 mg/5 mL oral liquid 200 mg PO Q8H PRN Cough 08/13/23 08/21/23 hydroxyzine HCl 10 mg tablet 30 mg PO TID PRN Anxiety 08/13/23 08/21/23 ipratropium 0.5 mg-albuterol 3 mg 3 ml inhalation Q6H PRN SHORTNESS 08/13/23 08/21/23 (2.5 mg base)/3 mL nebulization OF BREATH/WHEEZE soln lactulose 10 gram/15 mL oral 20 g PO Q12H PRN Constipation 08/13/23 08/21/23 solution lorazepam 0.5 mg tablet 0.5 mg PO BID PRN Anxiety 08/13/23 08/21/23 magnesium hydroxide 400 mg/5 mL 30 ml PO BEDTIME PRN Constipation 08/13/23 08/21/23 oral suspension (Milk of Magnesia) melatonin 3 mg tablet 3 mg PO BEDTIME 08/13/23 08/21/23 metoprolol succinate 50 mg 50 mg PO BID 08/13/23 08/21/23 tablet,extended release 24 hr multivitamin 1 tab PO DAILY 08/13/23 08/21/23 nicotine 21 mg/24 hr daily 1 patch transdermal DAILY 08/13/23 08/21/23 transdermal patch oxycodone 5 mg tablet 2.5 mg PO Q6H PRN Pain 08/13/23 08/21/23 pantoprazole 40 mg tablet,delayed 40 mg PO DAILY 08/13/23 08/21/23 release (Protonix) sennosides 8.6 mg-docusate sodium 2 tab-cap PO BEDTIME 08/13/23 08/21/23 50 mg tablet (Senna Plus) sertraline 25 mg tablet 25 mg PO DAILY 08/13/23 08/21/23 sodium phosphates 19 gram-7 118 ml OK DAILY PRN Constipation 08/13/23 08/21/23 gram/118 mL enema (Fleet Enema) thiamine HCl (vitamin B1) 100 mg 100 mg PO DAILY 08/13/23 08/21/23 tablet umeclidinium 62.5 mcg/actuation 1 inh inhalation DAILY 08/13/23 08/21/23 blister powder for inhalation (Incruse Ellipta) Previous Rx's Medication Instructions Recorded prednisone 20 mg tablet 20 mg PO DAILY #3 tabs 08/17/23 Allergies Allergy/AdvReac Type Severity Reaction Status Date / Time codeine Allergy Intermediate Anaphylaxis Verified 09/02/23 22:36 morphine Allergy Anaphylaxis Verified 09/02/23 22:36 Review of Systems 2 Review of Systems: Yes all other systems are reviewed and are negative [facility] Past Medical History [facility] Narrative: social history: Patient states that she has been in an out of [facility] over the past several months and was sent to this facility after recent hospitalization here. She denies tobacco, alcohol and drug use. Medical History Chronic a-fib Decubitus ulcer of back, stage 3 Oxygen dependent History of chronic carbon dioxide retention Compression fracture of thoracic vertebra Breast implant status CHF (congestive heart failure) Pressure ulcer COPD (chronic obstructive pulmonary disease) Osteoporosis Social History Social History Household Members: Other Household Members Other:: Sister Housing: House Do you presently have visiting nurse or other home services: No Alcohol intake: former Patient Tobacco Use Status: Former Tobacco user Tobacco use type: Cigarette Smoked in Last 30 Days: No Advance Directives: Yes Advance Directives on File: Yes Advance Directives Date on File: 08/18/23 Patient : No service: No Physical Exam 2 Vital Signs: Vital Signs: Last Vital Signs Temp 98.8 F 09/02/23 22:53 Pulse 136 H 09/02/23 23:36 Resp 32 H 09/02/23 23:36 BP 118/70 09/02/23 23:36 Pulse Ox 99 09/02/23 23:36 O2 Del Method Nasal Cannula 09/02/23 23:36 O2 Flow Rate 4 09/02/23 23:36 Oxygen Flow Rate 3 09/02/23 22:52 BMI result Body Mass Index 16.6 Exam: General: Awake, patient appears tachypneic, diaphoretic Head: Normocephalic, atraumatic EENT: PERRL, Lids normal, sclera normal, conjunctiva normal, nose normal , ears normal, throat without erythema or exudates Neck: Supple, no adenopathy, no trachea midline or C-spine tenderness Lung: breath sounds symmetric, diffuse wheezing, no rales and no rhonchi Chest: symmetric movement, nontender Heart: tachycardia with an irregular irregular rhythm, normalS1, S2 no murmurs or rubs Abdomen: soft, non-tender, nondistended, normal bowel sounds Back: no vertebral tenderness, no CVAT skin: Decubital ulcer photo below Extremities: no deformities, moves all extremities symmetrically Neuro: Awake, alert, oriented, normal speech,, moves all extremities symmetrically Psych: Pleasant, cooperative Medications Administered Discontinued Medications Generic Name Dose Route Start Last Admin Trade Name Freq PRN Reason Stop Dose Admin Digoxin 0.25 mg 09/02/23 22:55 09/02/23 23:19 Digoxin 0.5 Mg/2 Ml Ampul IVPUSH 09/02/23 22:56 0.25 mg ONCE ONE Administration Digoxin 0.25 mg 09/02/23 23:44 09/02/23 23:54 Digoxin 0.5 Mg/2 Ml Ampul IVPUSH 09/02/23 23:45 0.25 mg ONCE ONE Administration Levalbuterol HCl 3.75 mg 09/02/23 22:58 09/02/23 23:07 Levalbuterol Hcl 1.25 Mg/3 Ml Vial.Neb INHALE 09/02/23 22:59 3.75 mg ONCE ONE Administration Medical Decision Making Medical Decision Making MDM Narrative: 62-year-old female with a history of chronic atrial fibrillation, decubital ulcers, COPD oxygen dependent, congestive heart failure, osteoporosis, recently admitted on 08/13/2023 until 08/28/2023 for acute hypoxia and hypercarbic respiratory failure secondary to COPD initially intubated, then extubated in the ER and placed on BiPAP, her chronic atrial fibrillation was complicated by episodes of bradycardia and tachycardia and her diltiazem and digoxin was stopped but she was continued on metoprolol. Patient tested positive for COVID-19 on 08/21/2023. Patient states that her shortness of breath began 1 hour prior to arrival. Paramedics report that her O2 saturation was 80% on 3 L, she was placed on 5 L and given albuterol treatment EN route. On presentation she is tachypneic, diaphoretic with a heart rate of 170. Patient's lung exam did reveal diffuse wheezing. I ordered the following evaluation: CBC, CMP, troponin, BNP, lactic acid, lipase, PT /INR, PTT, COVID, flu, RSV, urinalysis, blood cultures x2. bronchodilator protocol was ordered - respiratory therapist is going to give Xopenex nebulizer treatment. I also ordered digoxin 0.25 mg IV for her tachycardia. 00:58 my interpretation patient's laboratory evaluation as follows: Elevated WBC [id number] neutrophils with 2 bands. Elevated bicarb 30. Elevated glucose 164. Lactic acid elevated 2.7. COVID-19 is positive. Flu and RSV were negative. Chest x-ray is difficult to interpret secondary to breast implants however the radiologist the interpretation is consistent with right-sided infiltrates/possible pneumonia. Patient's COVID-19 test was positive and this could be a viral pneumonia however I am concerned that she may also have a bacterial process therefore she was given ceftriaxone 1 g IV and azithromycin 500 mg IV. patient has elevated lactic acid is most likely secondary to albuterol use, do not think that she has severe sepsis. Patient was ordered to get normal saline 150 mL/hr. 02:00 I did discuss the patient's presentation with the covering hospitalist Dr. Welch, the patient will be admitted for further treatment. Differential Diagnosis Differential Diagnoses: The differential diagnosis associated with the presentation includes 00:58 hours Differential diagnosis includes was not limited to COPD exacerbation, pneumonia, atrial fibrillation, myocardial ischemia, myocardial infarction Admission/Observation Consideration of admission/observation: Escalation of care including admission/observation considered Consult Healthcare Provider Management of the patient was discussed with: Hospitalist Lab Data [facility] Lab Attestation statement: I reviewed the patient's lab results. 09/02/23 23:17 09/02/23 23:17 Labs: Lab Results 11/02/23 Range/Units 23:17 WBC 25.8 H (4.8-10.8) X10*3/uL RBC 3.84 L (4.20-5.50) X10*6/uL Hgb 11.2 L (12.0-16.0) g/dl Hct 35.0 L (37.0-47.0) % MCV 91.1 (80.0-98.0) fL MCH 29.2 (27.0-33.0) pg MCHC 32.0 (31.0-35.0) g/dl RDW 14.6 (11.0-16.0) % Plt Count 414 H (160-400) X10*3/uL MPV 9.5 (9.4-12.3) fL Immature Gran % (Auto) Cancelled Neut % (Auto) Cancelled Lymph % (Auto) Cancelled Barton % (Auto) Cancelled Eos % (Auto) Cancelled Baso % (Auto) Cancelled Lymph # (Auto) Cancelled Barton # (Auto) Cancelled Eos # (Auto) Cancelled Baso # (Auto) Cancelled Abs Immat Gran (auto) Cancelled Absolute Neuts (auto) Cancelled Absolute Nucleated RBC 0.030 H (0.0-0.012) X10*3/uL Nucleated RBC % (auto) 0.1 (0.0-0.2) /100WBC Neutrophils % (Manual) 79 H (45-73) % Band Neutrophils % 2 L (3-5) % Lymphocytes % (Manual) 6 L (20-40) % Monocytes % (Manual) 9 (2-11) % Eosinophils % (Manual) 1 (0-4) % Metamyelocytes % 2 % Myelocytes % 1 % Abs Neuts (Manual) 20.9 H (2.0-8.3) X10*3/uL Lymphocytes # (Manual) 1.5 (1.2-4.9) X10*3/uL Monocytes # (Manual) 2.3 H (0.1-1.2) X10*3/uL Eosinophils # (Manual) 0.3 (0.0-0.4) X10*3/uL Metamyelocytes # 0.5 X10*3/uL Myelocytes # 0.3 X10*/uL Platelet Estimate NORMAL (NORMAL) Plt Morphology Comment NORMAL RBC Morphology NORMAL PT 13.6 H D (11.1-13.3) SEC INR 1.1 (0.9-1.1) APTT 24.1 L (26.0-36.4) SEC Sodium 136 (135-145) mmol/L Potassium 3.8 (3.3-5.1) mmol/L Chloride 95 L (96-108) mmol/L Carbon Dioxide 30 H (22-29) mmol/L Anion Gap 15 (12-20) BUN 17 H (9-16) mg/dL Creatinine 0.55 (0.5-1.4) mg/dL Estim Creat Clear Calc 78.6 Estimated GFR > 60 Random Glucose 164 H (60-115) mg/dL Lactic Acid 2.7 H* (0.5-2.0) mmol/L Calcium 8.7 (8.4-10.2) mg/dL Total Bilirubin 0.2 (0.0-1.0) mg/dL AST 26 (5-31) U/L ALT 19 (0-31) U/L Alkaline Phosphatase 108 (39-117) U/L Troponin I High Sens 12.8 (<3.5-17.0) ng/L B-Natriuretic Peptide 892 H (<100) pg/mL Total Protein 6.1 L (6.5-8.0) g/dL Albumin 3.3 L (3.5-5.0) g/dL Lipase 22 (8-78) U/L Influenza Type A (PCR) NEGATIVE (Negative) Influenza Type B (PCR) NEGATIVE (Negative) RSV RNA Qual (PCR) NEGATIVE (Negative) SARS-CoV-2 RNA (RT-PCR) POSITIVE A (Negative) Radiology Impression Discussion of test interpretation with radiology: I have reviewed the radiologist's reading. Radiologist Impression: XR chest 1V IMPRESSION: Worsening pulmonary aeration in the right mid to lower lung with increased airspace opacities and increased right-sided pleural effusion. Findings are concerning for an infectious/inflammatory process such as aspiration/atypical pneumonia. Recommend short-term follow-up to ensure resolution after treatment. Dictated By: Ethel Shen Critical Care Time Critical Care Time Critical Care Time: Yes Total Critical Care Time: 45 Attestation: Critical Care: The patient was critically ill with a high probability of imminent or life threatening deterioration. I spent greater than 30 minutes of discontinuous time evaluating the patient,delivering critical care at the bedside, discussing and evaluating pertinent data with consultants. Critical care time does not include time spent performing separately billable procedures or teaching. Total time spent performing critical care was 45 minutes. Discharge Plan Discharge Prescriptions: No Action acetaminophen 325 mg Tablet 650 mg PO Q6H PRN (Reason: temp > 100/general discomfort) fluticasone propion-salmeterol [Advair Diskus] 250-50 mcg/dose Blister With Device 1 inh INHALATION BID apixaban 5 mg Tablet 5 mg PO BID aspirin 81 mg Tablet,Delayed Release (Dr/Ec) 81 mg PO DAILY atorvastatin 20 mg Tablet 20 mg PO BEDTIME cholecalciferol (vitamin D3) 25 mcg (1,000 unit) Tablet 25 mcg PO DAILY guaifenesin 100 mg/5 mL Liquid 200 mg PO Q8H PRN (Reason: Cough) bisacodyl [Dulcolax (bisacodyl)] 10 mg Suppository 10 mg OK Q3D PRN (Reason: Constipation) Patient Comments: IF NO BOWEL MOVEMENT AND MOM INEFFECTIVE lactulose 10 gram/15 mL Solution 20 g PO Q12H PRN (Reason: Constipation) Fleet Enema 19-7 gram/118 mL Enema 118 ml OK DAILY PRN (Reason: Constipation) folic acid 1 mg Tablet 1 mg PO DAILY furosemide 40 mg Tablet 40 mg PO DAILY gabapentin 300 mg Capsule 600 mg PO TID hydroxyzine HCl 10 mg Tablet 30 mg PO TID PRN (Reason: Anxiety) Rx Instructions: ORDERED FOR 14 DAYS, END DATE 08/24/23 Incruse Ellipta 62.5 mcg/actuation Blister With Device 1 inh INHALATION DAILY ipratropium-albuterol 0.5 mg-3 mg(2.5 mg base)/3 mL Solution For Nebulization 3 ml INHALATION Q6H PRN (Reason: SHORTNESS OF BREATH/WHEEZE) lorazepam 0.5 mg Tablet 0.5 mg PO BID PRN (Reason: Anxiety) melatonin 3 mg Tablet 3 mg PO BEDTIME metoprolol succinate 50 mg Tablet Extended Release 24 Hr 50 mg PO BID magnesium hydroxide [Milk of Magnesia] 400 mg/5 mL Suspension 30 ml PO BEDTIME PRN (Reason: Constipation) multivitamin Tablet 1 tab PO DAILY sennosides-docusate sodium [Senna Plus] 8.6-50 mg Tablet 2 tab-cap PO BEDTIME thiamine HCl (vitamin B1) 100 mg Tablet 100 mg PO DAILY pantoprazole [Protonix] 40 mg Tablet,Delayed Release (Dr/Ec) 40 mg PO DAILY nicotine 21 mg/24 hr Patch 24 Hour 1 patch TRANSDERMAL DAILY sertraline 25 mg Tablet 25 mg PO DAILY Santyl 250 unit/gram Ointment 1 appl TOPICAL DAILY Rx Instructions: APPLY TO COCCYX albuterol sulfate [Ventolin HFA] 90 mcg/actuation Hfa Aerosol Inhaler 1 inh INHALATION QID PRN (Reason: Wheezing) oxycodone 5 mg Tablet 2.5 mg PO Q6H PRN (Reason: Pain) prednisone 20 mg Tablet 20 mg PO DAILY Qty: 3 0RF
--- NOTE | 2023-09-02 22:42 | ECG_ITS ---
Test Reason : TACHYCARDIA Blood Pressure : / mmHG Vent. Rate : 147 BPM Atrial Rate : 000 BPM P-R Int : 000 ms QRS Dur : 086 ms QT Int : 296 ms P-R-T Axes : 000 047 225 degrees QTc Int : 463 ms Atrial fibrillation with rapid ventricular response ST & T wave abnormality, consider inferolateral ischemia Abnormal ECG When compared with ECG of 26-AUG-2023 14:44, Vent. rate has increased BY 60 BPM Referred By: Alfonso Drummond Electronically Signed By:MUNIR PRATHER MD
[2023-09-02 22:52] VITALS: PULSE 152; O2SAT 99
[2023-09-02 22:53] VITALS: BP 105/56; PULSE 150; RESP 28; TEMP 37.1; O2SAT 3
[2023-09-02 23:07] VITALS: PULSE 157; RESP 21; O2SAT 98
[2023-09-02] MEDS: levalbuterol HCL 1.25 MG/3 ML VIAL.NEB 3.75 MG INHALE (23:07)
[2023-09-02] MEDS: Digoxin 0.5 MG/2 ML AMPUL 0.25 MG IVPUSH ×2 (23:19→23:54)
[2023-09-02 23:25] LABS: Hemoglobin 11.2 g/dl (12.0-16.0); Mean Corpuscular Hemoglobin 29.2 pg (27.0-33.0); Mean Corpuscular Volume 91.1 fL (80.0-98.0); Mean Platelet Volume 9.5 fL (9.4-12.3); NRBC Pct Auto 0.1 /100WBC (0.0-0.2); Platelet Count 414 X10*3/uL (160-400); Red Blood Count 3.84 X10*6/uL (4.20-5.50); Red Cell Distribution Width 14.6 % (11.0-16.0); White Blood Count 25.8 X10*3/uL (4.8-10.8)
[2023-09-02 23:36] VITALS: BP 118/70; PULSE 136; RESP 32; O2SAT 99
[2023-09-02 23:45] LABS: Band Neutrophils Percent 2 % (3-5); Eosinophils Absolute Manual 0.3 X10*3/uL (0.0-0.4); Eosinophils Percent Manual 1 % (0-4); Lymphocytes Absolute Manual 1.5 X10*3/uL (1.2-4.9); Lymphocytes Percent Manual 6 % (20-40); Metamyelocytes Absolute 0.5 X10*3/uL; Metamyelocytes Percent 2 %; Monocytes Absolute Manual 2.3 X10*3/uL (0.1-1.2); Monocytes Percent Manual 9 % (2-11); Myelocytes Absolute 0.3 X10*/uL; Myelocytes Percent 1 %; Neutrophils Absolute Manual 20.9 X10*3/uL (2.0-8.3); Neutrophils Percent Manual 79 % (45-73); Platelet Estimate NORMAL (NORMAL); Platelet Morphology Comment NORMAL; RBC Morphology NORMAL
[2023-09-02 23:48] LABS: B Type Natriuretic Peptide 892 pg/mL (<100)
[2023-09-02 23:49] LABS: INTERNATIONAL NORM RATIO 1.1 (0.9-1.1); Lactic Acid 2.7 mmol/L (0.5-2.0); Prothrombin Time 13.6 SEC (11.1-13.3)
[2023-09-02 23:51] LABS: Troponin-I High Sensitivity 12.8 ng/L (<3.5-17.0)
[2023-09-02 23:52] LABS: Partial Thromboplastin Time 24.1 SEC (26.0-36.4)
[2023-09-03] VITALS (10 sets, daily range): BP systolic 118–149; BP diastolic 60–103; PULSE 98–147; RESP 16–24; TEMP 36.2–36.7; O2SAT 2–99; BMI 20.8
[2023-09-03 00:01] LABS: Alanine Aminotransferase 19 U/L (0-31); Albumin Level 3.3 g/dL (3.5-5.0); Alkaline Phosphatase 108 U/L (39-117); Anion Gap 15 (12-20); Aspartate Amino Transferase 26 U/L (5-31); Bilirubin Total 0.2 mg/dL (0.0-1.0); Blood Urea Nitrogen 17 mg/dL (9-16); Calcium 8.7 mg/dL (8.4-10.2); Carbon Dioxide 30 mmol/L (22-29); Chloride 95 mmol/L (96-108); Creatinine Clr Calc Pharmacy 78.6; Estimated Glomerular Filt Rate > 60; Glucose Random 164 mg/dL (60-115); Lipase 22 U/L (8-78); Potassium 3.8 mmol/L (3.3-5.1); Sodium 136 mmol/L (135-145); Total Protein 6.1 g/dL (6.5-8.0)
[2023-09-03 00:02] LABS: Influenza A PCR NEGATIVE (Negative); Influenza B PCR NEGATIVE (Negative); Resp Syncy Virus RNA Qual PCR NEGATIVE (Negative); SARS COV2 PCR INHOUSE POSITIVE (Negative)
[2023-09-03 01:21] LABS: Reflex Lactate? Lactic Acid Added
[2023-09-03] MEDS: Azithromycin 500 MG in 0.9 % Sodium Chloride 250 ML 125 MG IV (02:16)
[2023-09-03] MEDS: cefTRIAXone sodium 1 GM in 0.9 % Sodium Chloride 50 ML IV ×2 (02:16→22:28)
--- NOTE | 2023-09-03 02:24 | PM.IMHP ---
History of Present Illness Date of Service: 09/03/23 Chief Complaint: sob 62F PMH copd, chronic hypoxic and hypercapnic respiratory failure on 2 L home O2, unspecified atrial fibrillation on apixaban, hfpef, pulm htn, presented with sob. patient was discharged 08/28/23 to SNF after hospitalization for copd/covid, afib. was feeling better after discharge. then night of presentation reports suddenly feeling more sob, increased cough. per EMS was 80%on 3L. in afib with rvr. in ED CXR with increased right sided opacities, increased wbc, tachypnea, lactate 2.7. Review of Systems Review of Systems: Yes all other systems are reviewed and are negative FOR[facility]LY [facility], [facility] Medical History Chronic a-fib Decubitus ulcer of back, stage 3 Oxygen dependent History of chronic carbon dioxide retention Compression fracture of thoracic vertebra Breast implant status CHF (congestive heart failure) Pressure ulcer COPD (chronic obstructive pulmonary disease) Osteoporosis Social History Household Members: Other Household Members Other:: Sister Housing: House Do you presently have visiting nurse or other home services: No Alcohol intake: former Patient Tobacco Use Status: Former Tobacco user Tobacco use type: Cigarette Smoked in Last 30 Days: No Advance Directives: Yes Advance Directives on File: Yes Advance Directives Date on File: 08/18/23 Patient : No service: No Meds Allergies Allergy/AdvReac Type Severity Reaction Status Date / Time codeine Allergy Intermediate Anaphylaxis Verified 09/02/23 22:36 morphine Allergy Anaphylaxis Verified 09/02/23 22:36 Active Medications: Current Medications Albuterol/Ipratropium (Albuterol/Iprat 2.5/0.5mg 3 Ml Ampul.Neb) 3 ml INHALE RQ4H WHILE AWAKE PRN PRN Reason: sob Azithromycin 500 mg/ Sodium (Chloride) 250 mls @ 125 mls/hr IV ONCE ONE Stop: 09/03/23 02:59 Last Admin: 09/03/23 02:16 Dose: 125 mls/hr Sodium Chloride (Ns) 1,000 mls @ 150 mls/hr IV .Q6H40M STA Stop: 09/03/23 08:43 Ceftriaxone Sodium 1 gm/ (Sodium Chloride) 50 mls @ 100 mls/hr IV Q24H [facility] Azithromycin 500 mg/ Sodium (Chloride) 250 mls @ 125 mls/hr IV Q24H [facility] Methylprednisolone Sodium Succinate (Methylprednisolone Sod Succ 40 Mg/Ml Vial) 40 mg IVPUSH Q12H [facility] Home Medications Medication Instructions Recorded Confirmed Last Taken Type acetaminophen 325 mg tablet 650 mg PO Q6H PRN temp > 08/13/23 08/21/23 Unknown History 100/general discomfort albuterol sulfate 90 mcg/actuation 1 inh inhalation QID PRN Wheezing 08/13/23 08/21/23 Unknown History aerosol inhaler (Ventolin HFA) apixaban 5 mg tablet 5 mg PO BID 08/13/23 08/21/23 Unknown History aspirin 81 mg tablet,delayed 81 mg PO DAILY 08/13/23 08/21/23 Unknown History release atorvastatin 20 mg tablet 20 mg PO BEDTIME 08/13/23 08/21/23 Unknown History bisacodyl 10 mg rectal suppository 10 mg [place] Q3D PRN Constipation 08/13/23 08/21/23 Unknown History (Dulcolax (bisacodyl)) cholecalciferol (vitamin D3) 25 25 mcg PO DAILY 08/13/23 08/21/23 Unknown History mcg (1,000 unit) tablet collagenase clostridium histo. 250 1 appl topical DAILY 08/13/23 08/21/23 Unknown History unit/gram topical ointment (Santyl) fluticasone 250 mcg-salmeterol 50 1 inh inhalation BID 08/13/23 08/21/23 Unknown History mcg/dose blistr powdr for inhalation (Advair Diskus) folic acid 1 mg tablet 1 mg PO DAILY 08/13/23 08/21/23 Unknown History furosemide 40 mg tablet 40 mg PO DAILY 08/13/23 08/21/23 Unknown History gabapentin 300 mg capsule 600 mg PO TID 08/13/23 08/21/23 Unknown History guaifenesin 100 mg/5 mL oral liquid 200 mg PO Q8H PRN Cough 08/13/23 08/21/23 Unknown History hydroxyzine HCl 10 mg tablet 30 mg PO TID PRN Anxiety 08/13/23 08/21/23 Unknown History ipratropium 0.5 mg-albuterol 3 mg 3 ml inhalation Q6H PRN SHORTNESS 08/13/23 08/21/23 Unknown History (2.5 mg base)/3 mL nebulization OF BREATH/WHEEZE soln lactulose 10 gram/15 mL oral 20 g PO Q12H PRN Constipation 08/13/23 08/21/23 Unknown History solution lorazepam 0.5 mg tablet 0.5 mg PO BID PRN Anxiety 08/13/23 08/21/23 Unknown History magnesium hydroxide 400 mg/5 mL 30 ml PO BEDTIME PRN Constipation 08/13/23 08/21/23 Unknown History oral suspension (Milk of Magnesia) melatonin 3 mg tablet 3 mg PO BEDTIME 08/13/23 08/21/23 Unknown History metoprolol succinate 50 mg 50 mg PO BID 08/13/23 08/21/23 Unknown History tablet,extended release 24 hr multivitamin 1 tab PO DAILY 08/13/23 08/21/23 Unknown History nicotine 21 mg/24 hr daily 1 patch transdermal DAILY 08/13/23 08/21/23 Unknown History transdermal patch oxycodone 5 mg tablet 2.5 mg PO Q6H PRN Pain 08/13/23 08/21/23 Unknown History pantoprazole 40 mg tablet,delayed 40 mg PO DAILY 08/13/23 08/21/23 Unknown History release (Protonix) sennosides 8.6 mg-docusate sodium 2 tab-cap PO BEDTIME 08/13/23 08/21/23 Unknown History 50 mg tablet (Senna Plus) sertraline 25 mg tablet 25 mg PO DAILY 08/13/23 08/21/23 Unknown History sodium phosphates 19 gram-7 118 ml [place] DAILY PRN Constipation 08/13/23 08/21/23 Unknown History gram/118 mL enema (Fleet Enema) thiamine HCl (vitamin B1) 100 mg 100 mg PO DAILY 08/13/23 08/21/23 Unknown History tablet umeclidinium 62.5 mcg/actuation 1 inh inhalation DAILY 08/13/23 08/21/23 Unknown History blister powder for inhalation (Incruse Ellipta) Physical Exam Vital Signs and Narrative: Vital Signs: Last Vital Signs Temp 98.8 F 09/02/23 22:53 Pulse 136 H 09/02/23 23:36 Resp 32 H 09/02/23 23:36 BP 118/70 09/02/23 23:36 Pulse Ox 99 09/02/23 23:36 O2 Del Method Nasal Cannula 09/02/23 23:36 O2 Flow Rate 4 09/02/23 23:36 Oxygen Flow Rate 3 09/02/23 22:52 BMI result Body Mass Index 16.6 General: AO X 3, frail, ill appearing, sob Resp: diminished bilateral, accessory muscles used CVS: S1,S2,Rapid irregular GI: soft, non tender, non distended Neuro: motor grossly intact, alert Psych: appropriate affect, appropriate insight Results Labs 09/02/23 23:17 09/02/23 23:17 Labs: Laboratory Results - last 24 hr 09/02/23 23:17 MCV 91.1 MCH 29.2 MCHC 32.0 RDW 14.6 Plt Count 414 H MPV 9.5 Immature Gran % (Auto) Cancelled Neut % (Auto) Cancelled Lymph % (Auto) Cancelled [place] % (Auto) Cancelled Eos % (Auto) Cancelled Baso % (Auto) Cancelled Lymph # (Auto) Cancelled [place] # (Auto) Cancelled Eos # (Auto) Cancelled Baso # (Auto) Cancelled Abs Immat Gran (auto) Cancelled Absolute Neuts (auto) Cancelled Absolute Nucleated RBC 0.030 H Nucleated RBC % (auto) 0.1 Neutrophils % (Manual) 79 H Band Neutrophils % 2 L Lymphocytes % (Manual) 6 L Monocytes % (Manual) 9 Eosinophils % (Manual) 1 Metamyelocytes % 2 Myelocytes % 1 Abs Neuts (Manual) 20.9 H Lymphocytes # (Manual) 1.5 Monocytes # (Manual) 2.3 H Eosinophils # (Manual) 0.3 Metamyelocytes # 0.5 Myelocytes # 0.3 Platelet Estimate NORMAL Plt Morphology Comment NORMAL RBC Morphology NORMAL PT 13.6 H D INR 1.1 APTT 24.1 L Anion Gap 15 Estim Creat Clear Calc 78.6 Estimated GFR > 60 Random Glucose 164 H Lactic Acid 2.7 H* Calcium 8.7 Total Bilirubin 0.2 AST 26 ALT 19 Alkaline Phosphatase 108 B-Natriuretic Peptide 892 H Total Protein 6.1 L Albumin 3.3 L Lipase 22 Influenza Type A (PCR) NEGATIVE Influenza Type B (PCR) NEGATIVE RSV RNA Qual (PCR) NEGATIVE SARS-CoV-2 RNA (RT-PCR) POSITIVE A Imaging Radiologist's Impressions: Impressions Chest X-Ray 09/02/23 22:56 IMPRESSION: Worsening pulmonary aeration in the right mid to lower lung with increased airspace opacities and increased right-sided pleural effusion. Findings are concerning for an infectious/inflammatory process such as aspiration/atypical pneumonia. Recommend short-term follow-up to ensure resolution after treatment. Assessment and Plan (1) Decubital ulcer: Status: Acute Plan copd, chronic hypoxic and hypercapnic respiratory failure on 2 L home O2, unspecified atrial fibrillation on apixaban, hfpef pulm htn, presented with sob severe sepsis and acute on chronic hypoxic respiratory failure due to copd with acute decompensation due to recent covid 19 infection complicated by superimposed bacterial pneumonia rocephin, azithro steroids, nebs follow up cultures wean o2 as tolerated persistent afib with rvr lopressor 25mg qid, eliquis monitor decubitus ulcer wound care consult chronic diastolic/ right sided chf, pulm htn given iv fluids for sepsis, will hold lasix for now, will likely need to restart maintenance once euvolemic moderate protein calorie malnutrition nutrition eval dvt prophylaxis - eliquis full code patinet with significant hypoxia and sob, due to age and fraility at risk for further decopmensation, therefore, expected to require atleast 2 midnights inpatient Quality Stroke Does the patient have a stroke diagnosis?: No VTE Prior VTE?: No VTE Risk Level:: Medical - moderate - high VTE Device Contraindication: Treatment Not Indicated VTE Drug Contraindication: N/A - Med Ordered
[2023-09-03] MEDS: oxyCODONE HCl Immed Release 5 MG TABLET PO ×3 (02:33→22:41)
[2023-09-03] MEDS: ondansetron HCL 4 MG/2 ML VIAL IVPUSH (02:33)
[2023-09-03] MEDS: dexAMETHasone sod phosphate 4 MG/ML VIAL 6 MG IVPUSH (02:33)
[2023-09-03] MEDS: 0.9 % Sodium Chloride Flush 3 ML SYRINGE IVFLUSH ×2 (02:34→20:00)
[2023-09-03] MEDS: 0.9 % Sodium Chloride 1,000 ML 150 ML IV (02:42)
[2023-09-03 03:12] LABS: ~Lactic Acid-LAB USE ONLY 1.2 mmol/L (0.5-2.0)
--- NOTE | 2023-09-03 07:11 | MHC.EDTECH ---
pt found to be low in the bed. pt repositioned and boosted in the bed, warm blanket given and call light placed within reach. morning vitals taken and documented. RN aware
--- NOTE | 2023-09-03 07:27 | PHA.MEDREC ---
Pharmacy Consult ? Medication Reconciliation Pharmacy has completed the medication reconciliation. Patient recently discharged 08/28; used discharge summary
[2023-09-03] MEDS: Albuterol/Iprat 2.5/0.5MG 3 ML AMPUL.NEB INHALE ×2 (08:09→19:33)
[2023-09-03] MEDS: Fluticasone/Vilanterol 100/25 BLST.W.DEV 1 PUFF INHALE (08:09)
--- NOTE | 2023-09-03 08:14 | MHC.EDTECH ---
pt repositioned and boosted in the bed following CT scan. Pillow placed under the ride side. call light placed within reach. RT in the room
[2023-09-03] MEDS: Folic Acid 1 MG TABLET PO (08:15)
[2023-09-03] MEDS: methylPREDNISolone Sod Succ 40 MG/ML VIAL IVPUSH ×2 (08:15→19:55)
[2023-09-03] MEDS: Gabapentin 300 MG CAPSULE 600 MG PO ×3 (08:15→19:59)
[2023-09-03] MEDS: Apixaban 5 MG TABLET PO ×2 (08:16→19:58)
[2023-09-03] MEDS: Omeprazole 20 MG CAPSULE.DR PO ×2 (08:16→16:41)
[2023-09-03] MEDS: Cholecalciferol (Vitamin D3) 25 MCG TABLET PO (08:16)
[2023-09-03] MEDS: Multivitamin TABLET 1 TAB PO (08:16)
[2023-09-03] MEDS: Metoprolol Tartrate 25 MG TABLET PO ×4 (08:17→19:59)
[2023-09-03] MEDS: Thiamine HCL 100 MG TABLET PO (08:17)
[2023-09-03] MEDS: Sertraline HCL 25 MG TABLET PO (08:17)
[2023-09-03] MEDS: Nicotine 21 MG PATCH.TD24 TRANSDERMA (08:18)
[2023-09-03 08:28] LABS: Procalcitonin < 0.02 ng/mL
[2023-09-03] MEDS: LORazepam 2 MG/ML VIAL 0.5 MG IVPUSH (08:28)
--- NOTE | 2023-09-03 09:03 | PC.NURSE ---
Addendum entered by Elizabeth Correa RN 09/03/23 09:45: pt has pressure ulcer to coccyx measuring about 3cm x 2cm. area around wound is red and blanchable. also noted are pink/red pinpoint dots outside the reddened area. pink foam placed over wound to coccyx. pt repositioned and given pillow under buttock on right side. Original Note: assumed care of pt at 0700. pt on 3L O2, sating 95-98%. 3L is pt's baseline at home. pt brought over to CT scan, was having difficulty breathing, called respiratory, brought back to room, given breathing treatment and medicated per dec. once breathing treatment complete, pt brought back to CT to complete scan. pt given 2 pillows during scan to aid in breathing. pt desated to 75%, put on 6L and brought back up to 98%. scan completed and pt put back on 3L sating 96%. pt stated she was incontinent, was cleaned up and given full bed change. pt to be placed on purewick on unit. pt given breakfast and currently resting quietly on stretcher.
--- NOTE | 2023-09-03 09:29 | PC.NURSE ---
attempted to decrease pt O2 down to 2L due to pt sating 98-99% on 3L and pt hx of COPD. Dr Fox aware. pt sating 92% and pt sts difficulty breathing. pt put back on 3L O2 and sating 96-98%.
--- NOTE | 2023-09-03 09:49 | PC.NURSE ---
pt asking for rescue inhaler, no order for one. Dr. Aiken in pt room, asking for another breathing treatment for pt. this rn called respiratory, was told they need order since treatments are Q4h and pt had one less than an hour ago. Dr. Aiken aware. pt in afib, HR 100s-150s. Dr. Aiken in room and aware. sts he does not want to give more metoprolol or any other med and to give it time . report given to TOBY Bhakta. awaiting pt transport.
[2023-09-03 10:24] LABS: VBG Base Excess 6.7 mmol/L; VBG HCO3 33 mmol/L (22-26); VBG pCO2 58 mmHg; VBG pH 7.36 (7.32-7.43); VBG pO2 79 mmHg
[2023-09-03 10:31] LABS: Venous Blood Gas Refer to POC result
[2023-09-03] MEDS: levalbuterol HCL 1.25 MG/3 ML VIAL.NEB 3.75 MG INHALE (10:43)
[2023-09-03] MEDS: Albumin Human 25 % 100 ML IV ×3 (10:56→23:01)
[2023-09-03] MEDS: Magnesium Sulfate/H2O 2 GM/50 ML PIGGYBACK IV (10:56)
[2023-09-03] MEDS: Furosemide 20 MG/2 ML VIAL IVPUSH ×2 (11:01→22:27)
--- NOTE | 2023-09-03 11:03 | PM.CNCAR ---
History of Present Illness History of Present Illness Date of Service: 09/03/23 Requesting physician: Ned Fox Chief complaint: PNA, AFib with RVR Narrative: [age] year female who recently was in the hospital COVID-19 infection and COPD was presenting with mid malave shortness of breath and pneumonia. She has permanent atrial fibrillation [facility] EKGs performed previously at our institution. She has been noticed to have AFib with RVR. She is quite distressed because her breathing is quite short of breath right now. She is getting nebulizers and antibiotics for pneumonia. Heart rates are not well controlled currently. She is getting metoprolol. She also got 2 doses of IV digoxin on admission. She is on apixaban 5 mg twice a day. [facility] Past Medical History Medical History Chronic a-fib Decubitus ulcer of back, stage 3 Oxygen dependent History of chronic carbon dioxide retention Compression fracture of thoracic vertebra Breast implant status CHF (congestive heart failure) Pressure ulcer COPD (chronic obstructive pulmonary disease) Osteoporosis Social History Social History Household Members: Other Household Members Other:: Sister Housing: House Do you presently have visiting nurse or other home services: No Alcohol intake: former Patient Tobacco Use Status: Former Tobacco user Tobacco use type: Cigarette Advance Directives Date on File: 08/18/23 service: No Meds Allergies Allergy/AdvReac Type Severity Reaction Status Date / Time codeine Allergy Intermediate Anaphylaxis Verified 09/02/23 22:36 morphine Allergy Anaphylaxis Verified 09/02/23 22:36 Active Medications: Current Medications Albuterol/Ipratropium (Albuterol/Iprat 2.5/0.5mg 3 Ml Ampul.Neb) 3 ml INHALE RQ4H WHILE AWAKE PRN PRN Reason: sob Last Admin: 09/03/23 08:09 Dose: 3 ml Apixaban (Apixaban 5 Mg Tablet) 5 mg PO BID [facility]GAN Last Admin: 09/03/23 08:16 Dose: 5 mg Atorvastatin Calcium (Atorvastatin Calcium 20 Mg Tablet) 20 mg PO BEDTIME [facility] Bisacodyl (Bisacodyl 10 Mg Supp.Rect) 10 mg UT Q3D PRN PRN Reason: Constipation Fluticasone/Vilanterol (Fluticasone/Vilanterol 100/25 Blst.W.Dev) 1 puff INHALE DAILY [facility] Last Admin: 09/03/23 08:09 Dose: 1 puff Folic Acid (Folic Acid 1 Mg Tablet) 1 mg PO DAILY [facility] Last Admin: 09/03/23 08:15 Dose: 1 mg Furosemide (Furosemide 20 Mg/2 Ml Vial) 20 mg IVPUSH Q12H [facility]; Protocol Last Admin: 09/03/23 11:01 Dose: 20 mg Gabapentin (Gabapentin 300 Mg Capsule) 600 mg PO TID [facility] Last Admin: 09/03/23 08:15 Dose: 600 mg Guaifenesin (Guaifenesin 100 Mg/5 Ml Liquid) 10 ml PO Q8H PRN PRN Reason: Cough Ceftriaxone Sodium 1 gm/ (Sodium Chloride) 50 mls @ 100 mls/hr IV Q24H [facility] Azithromycin 500 mg/ Sodium (Chloride) 250 mls @ 125 mls/hr IV Q24H [facility] Albumin Human (Kedbumin 25 %) 100 mls @ 100 mls/hr IV Q6H [facility] Stop: 09/04/23 04:59 Last Admin: 09/03/23 10:56 Dose: 100 mls/hr Melatonin (Melatonin 3 Mg Tablet) 3 mg PO BEDTIME [facility] Methylprednisolone Sodium Succinate (Methylprednisolone Sod Succ 40 Mg/Ml Vial) 40 mg IVPUSH Q12H [facility] Last Admin: 09/03/23 08:15 Dose: 40 mg Metoprolol Tartrate (Metoprolol Tartrate 25 Mg Tablet) 25 mg PO QID [facility]; Protocol Last Admin: 09/03/23 08:17 Dose: 25 mg Multivitamins/Vitamin C (Multivitamin Tablet) 1 tab PO DAILY [facility] Last Admin: 09/03/23 08:16 Dose: 1 tab Nicotine (Nicotine 21 Mg Patch.Td24) 21 mg TRANSDERMA DAILY [facility] Last Admin: 09/03/23 08:18 Dose: 21 mg Omeprazole (Omeprazole 20 Mg Capsule.Dr) 20 mg PO DAILY@0630 [facility] Last Admin: 09/03/23 08:16 Dose: 20 mg Senna/Docusate Sodium (Sennosides/Docusate Sodium Tablet) 2 tab PO BEDTIME [facility] Sertraline HCl (Sertraline Hcl 25 Mg Tablet) 25 mg PO DAILY [facility] Last Admin: 09/03/23 08:17 Dose: 25 mg Sodium Chloride (0.9 % Sodium Chloride Flush 3 Ml Syringe) 3 ml IVFLUSH QSHIFT [facility] Last Admin: 09/03/23 02:34 Dose: 3 ml Thiamine HCl (Thiamine Hcl 100 Mg Tablet) 100 mg PO DAILY [facility] Last Admin: 09/03/23 08:17 Dose: 100 mg Tiotropium [place] (Tiotropium [place] 2.5 Mcg Inhaler) 2 puff INHALE DAILY [facility] Last Admin: 09/03/23 08:09 Dose: 2 puff Vitamin D (Cholecalciferol (Vitamin D3) 25 Mcg Tablet) 25 mcg PO DAILY [facility] Last Admin: 09/03/23 08:16 Dose: 25 mcg Home Medications Medication Instructions Recorded Confirmed Last Taken Type acetaminophen 325 mg tablet 650 mg PO Q6H PRN temp > 08/13/23 09/03/23 Unknown History 100/general discomfort albuterol sulfate 90 mcg/actuation 1 inh inhalation QID PRN Wheezing 08/13/23 09/03/23 Unknown History aerosol inhaler (Ventolin HFA) apixaban 5 mg tablet 5 mg PO BID 08/13/23 09/03/23 Unknown History aspirin 81 mg tablet,delayed 81 mg PO DAILY 08/13/23 09/03/23 Unknown History release atorvastatin 20 mg tablet 20 mg PO BEDTIME 08/13/23 09/03/23 Unknown History bisacodyl 10 mg rectal suppository 10 mg UT Q3D PRN Constipation 08/13/23 09/03/23 Unknown History (Dulcolax (bisacodyl)) cholecalciferol (vitamin D3) 25 25 mcg PO DAILY 08/13/23 09/03/23 Unknown History mcg (1,000 unit) tablet collagenase clostridium histo. 250 1 appl topical DAILY 08/13/23 09/03/23 Unknown History unit/gram topical ointment (Santyl) fluticasone 250 mcg-salmeterol 50 1 inh inhalation BID 08/13/23 09/03/23 Unknown History mcg/dose blistr powdr for inhalation (Advair Diskus) folic acid 1 mg tablet 1 mg PO DAILY 08/13/23 09/03/23 Unknown History furosemide 40 mg tablet 40 mg PO DAILY 08/13/23 09/03/23 Unknown History gabapentin 300 mg capsule 600 mg PO TID 08/13/23 09/03/23 Unknown History guaifenesin 100 mg/5 mL oral liquid 200 mg PO Q8H PRN Cough 08/13/23 09/03/23 Unknown History ipratropium 0.5 mg-albuterol 3 mg 3 ml inhalation Q6H PRN SHORTNESS 08/13/23 09/03/23 Unknown History (2.5 mg base)/3 mL nebulization OF BREATH/WHEEZE soln lactulose 10 gram/15 mL oral 20 g PO Q12H PRN Constipation 08/13/23 09/03/23 Unknown History solution magnesium hydroxide 400 mg/5 mL 30 ml PO BEDTIME PRN Constipation 08/13/23 09/03/23 Unknown History oral suspension (Milk of Magnesia) melatonin 3 mg tablet 3 mg PO BEDTIME 08/13/23 09/03/23 Unknown History metoprolol succinate 50 mg 50 mg PO BID 08/13/23 09/03/23 Unknown History tablet,extended release 24 hr multivitamin 1 tab PO DAILY 08/13/23 09/03/23 Unknown History nicotine 21 mg/24 hr daily 1 patch transdermal DAILY 08/13/23 09/03/23 Unknown History transdermal patch oxycodone 5 mg tablet 2.5 mg PO Q6H PRN Pain 08/13/23 09/03/23 Unknown History pantoprazole 40 mg tablet,delayed 40 mg PO DAILY 08/13/23 09/03/23 Unknown History release (Protonix) sennosides 8.6 mg-docusate sodium 2 tab-cap PO BEDTIME 08/13/23 09/03/23 Unknown History 50 mg tablet (Senna Plus) sertraline 25 mg tablet 25 mg PO DAILY 08/13/23 09/03/23 Unknown History sodium phosphates 19 gram-7 118 ml [place] DAILY PRN Constipation 08/13/23 09/03/23 Unknown History gram/118 mL enema (Fleet Enema) thiamine HCl (vitamin B1) 100 mg 100 mg PO DAILY 08/13/23 09/03/23 Unknown History tablet umeclidinium 62.5 mcg/actuation 1 inh inhalation DAILY 08/13/23 09/03/23 Unknown History blister powder for inhalation (Incruse Ellipta) lorazepam 0.5 mg tablet 0.5 mg PO BID PRN anxiety 09/03/23 09/03/23 Unknown History Physical Exam Vital Signs: Vital Signs: Last Vital Signs Temp 98.0 F 09/03/23 08:00 Pulse 147 H 09/03/23 10:44 Resp 16 09/03/23 10:44 BP 133/81 09/03/23 08:00 Pulse Ox 95 09/03/23 08:00 O2 Del Method Nasal Cannula 09/03/23 07:39 O2 Flow Rate 3 09/03/23 07:39 Oxygen Flow Rate 3 09/02/23 22:52 BMI result Body Mass Index 16.6 GENERAL APPEARANCE: Distressed, short of breath, using accessory muscles. NECK: no jugular venous distention. SKIN: no suspicious lesions, warm and dry. HEART: no murmurs, irregular rate and rhythm. Tachycardic. LUNGS: clear to auscultation anteriorly. Prolonged expiratory phase. ABDOMEN: soft, nontender. EXTREMITIES: no edema. PERIPHERAL PULSES: equal. NEUROLOGIC: No gross deficits, AAO X 3 Objective Labs and Meds 09/02/23 23:17 09/02/23 23:17 Lab results: Laboratory Results - last 24 hr 09/02/23 09/03/23 09/03/23 23:17 02:35 10:18 WBC 25.8 H RBC 3.84 L Hgb 11.2 L Hct 35.0 L MCV 91.1 MCH 29.2 MCHC 32.0 RDW 14.6 Plt Count 414 H MPV 9.5 Immature Gran % (Auto) Cancelled Neut % (Auto) Cancelled Lymph % (Auto) Cancelled [place] % (Auto) Cancelled Eos % (Auto) Cancelled Baso % (Auto) Cancelled Lymph # (Auto) Cancelled [place] # (Auto) Cancelled Eos # (Auto) Cancelled Baso # (Auto) Cancelled Abs Immat Gran (auto) Cancelled Absolute Neuts (auto) Cancelled Absolute Nucleated RBC 0.030 H Nucleated RBC % (auto) 0.1 Neutrophils % (Manual) 79 H Band Neutrophils % 2 L Lymphocytes % (Manual) 6 L Monocytes % (Manual) 9 Eosinophils % (Manual) 1 Metamyelocytes % 2 Myelocytes % 1 Abs Neuts (Manual) 20.9 H Lymphocytes # (Manual) 1.5 Monocytes # (Manual) 2.3 H Eosinophils # (Manual) 0.3 Metamyelocytes # 0.5 Myelocytes # 0.3 Platelet Estimate NORMAL Plt Morphology Comment NORMAL RBC Morphology NORMAL PT 13.6 H D INR 1.1 APTT 24.1 L VBG pH 7.36 VBG pCO2 58 VBG pO2 79 VBG HCO3 33 H VBG O2 Saturation 97.0 VBG Base Excess 6.7 Sodium 136 Potassium 3.8 Chloride 95 L Carbon Dioxide 30 H Anion Gap 15 BUN 17 H Creatinine 0.55 Estim Creat Clear Calc 78.6 Estimated GFR > 60 Random Glucose 164 H Lactic Acid 2.7 H* Lactic Acid F/U @ 2Hr 1.2 Calcium 8.7 Total Bilirubin 0.2 AST 26 ALT 19 Alkaline Phosphatase 108 Troponin I High Sens 12.8 B-Natriuretic Peptide 892 H Total Protein 6.1 L Albumin 3.3 L Lipase 22 Procalcitonin < 0.02 Influenza Type A (PCR) NEGATIVE Influenza Type B (PCR) NEGATIVE RSV RNA Qual (PCR) NEGATIVE SARS-CoV-2 RNA (RT-PCR) POSITIVE A Imaging Radiologist's impression: Impressions Chest X-Ray 09/02/23 22:56 IMPRESSION: Worsening pulmonary aeration in the right mid to lower lung with increased airspace opacities and increased right-sided pleural effusion. Findings are concerning for an infectious/inflammatory process such as aspiration/atypical pneumonia. Recommend short-term follow-up to ensure resolution after treatment. Chest CT 09/03/23 08:45 IMPRESSION: Bilateral pleural effusions, right greater than left. Right pleural effusion is large and increased from previous exam. Bilateral lower lobe compressive atelectasis, right greater than left. New interlobular septal thickening in the upper lungs from August 13 CT suggesting interstitial pulmonary edema/CHF. New bilateral nodules and nodular opacities in the upper lungs, greatest in the superior segment of the left lower lobe. A superimposed infectious process should be considered. Osteopenia and multiple thoracic and lumbar vertebral body compression fractures and bilateral rib fractures. Fleischner guidelines were followed. Assessment and Plan (1) Atrial fibrillation with rapid ventricular response: Status: Acute Plan 62-year-old female with COPD who recently had COVID-19 infection and was discharged home and is now presenting with worsening shortness of breath due to super infection and pneumonia. She had permanent atrial fibrillation and it appears she has AFib with RVR at this stage. Atrial fibrillation with rapid ventricular response is I reaction to her doing pneumonia at this point. She is quite distress and is using accessory muscles. She is getting antibiotics. Would benefit from steroids and regular nebulizers. She can get another dose of 250 mcg digoxin. Continue same dose of metoprolol currently. It may be difficult to control atrial fibrillation till her underlying respiratory status improves. We will follow along with you. Procedures Date of Service Date of Service: 09/03/23
[2023-09-03] MEDS: Acetaminophen 325 MG TABLET 975 MG PO ×2 (14:11→19:56)
[2023-09-03] MEDS: Ketorolac Tromethamine 15 MG/ML VIAL IVPUSH (14:11)
[2023-09-03] MEDS: Lidocaine 4 % Patch ADH..PATCH 1 PATCH TRANSDERMA (14:11)
--- NOTE | 2023-09-03 14:26 | HO.WOUND ---
Wound Consult: Initial 62yr old female admitted to [facility] on 09/03/23 02:23 - See progress notes and H&P for detailed history. Pt recently admitted and discharged seen by inpatient wound care nurse last admission. Sacrum Etiology: Unstageable Pressure Injury - Present On Admission (Previously documented as stage 3 Pressure Injury ) Measurements: 3cm x 2cm x 0.4cm with undermining circumferential max depth at 2 o'clock 2cm Wound Bed: Moist pink tissue marbled with adherent thick yellow necrotic tissue Drainage / Odor: No odor noted- - Moderate amount of yellow patel drainage Edges: ?Rolled and unattached Denis wound: ?Red hyperpigmented tissue remains blanchable throughout with evidence of MASD (Moisture Associated Skin Damage with Mirrored edges and Fungal dermatitis evidence of Satellite lesions advancing in periwound No induration no fluctuance and no s/s of infection at this time Pain: reports mild pain at time of assessment Goals of Treatment: ?Off Load Pressure and packing with Durafiber AG for moisture management, autoytic debridement with antimicrobial properties. Recommendations: 1. Sacrum - Off Load Pressure - Cleanse with normal saline and pat dry. ?Apply Antifungal powder to denis-wound, lightly pack sacrum with Durafiber AG cover with sacral foam dressing. ?Change Daily. Follow provider orders for topical antifungal treatment. 2. Turn and Reposition every 2 hours and as needed for patient comfort consider uses of wedges and pillows. 3. Off Load all bony prominences with use of pillows and or heels protecting boots. 4. Monitor for incontinence and moisture control - Purewick in place with mesh underwear - do not use towel between legs as this traps moisture against the patients skin. 5. Provide adequate and supplemental nutrition - consider nutrition consult. 6. Order low air loss mattress. Reconsult wound care team for wound deterioration or wound changes.
--- NOTE | 2023-09-03 14:54 | MHC.CLN ---
NUTRITION CONSULT DIET=REGULAR. INCREASED NUTRITION NEEDS DUE TO UNSTAGEABLE PRESSURE INJURY TO SACRUM. ADDING ENSURE MAX PROTEIN TID TO PROMOTE WOUND HEALING. PROVIDES 450 KCALS, 90 G PROTEIN. FOLLOW FOR INTAKE AND WOUND HEALING. SEE CLINICAL NUTRITION ASSESSMENT 09/03/23.
--- NOTE | 2023-09-03 15:53 | MHC.CM.PN ---
CM SPOKE TO PTS DAUGHTER, LAZARUS NICOLE [phone] SHE REPORTS THE PT WAS LIVING ALONE HOWEVER HAS BEEN AT [facility] FOR STR SHE REPORTS THE PT HAS A WALKER, CANE AND WHEEL CHAIR AND IS CURRENTLY WORKING ON HER ABILITY TO STAND AND PIVOT SO SHE CAN RETURN HOME [facility] CONFIRMS PT IS A BED HOLD AND SHOULD NOT NEED A PT EVAL TO RETURN PTS ACTUALLY PCP IS JODI LOWRY, DR OSCAR IS THE SNF MD HCP AND MOLST ON FILE IMM DELIVERED DCP: RETURN TO [facility] TO COMPLETE STR VIA BLS
--- NOTE | 2023-09-03 16:10 | P.CONPL_ITS ---
History of Present Illness History of Present Illness Consult date: 09/03/23 Chief complaint: Pneumonia, pleural effusion, hypoxia Narrative: 62-year-old lady with underlying COPD with CO2 retention on supplemental oxygen at 2 L, AFib/Aflutter on Eliquis diastolic heart failure compression fracture of thoracic vertebra recent admission for congestive heart failure exacerbation, admitted on 09/02/2023 with dyspnea and hypoxia, also noted to have worsening bilateral pleural effusions right greater than left, and likely a bacterial superinfection of previous COVID-19 pneumonia. Patient has been started on community-acquired pneumonia coverage with diuresis with improvement in her symptoms. Review of Systems 2 Constitutional: Constitutional: Denies daytime sleepiness, Denies excessive sweating, Denies fatigue, Denies fever(s), Denies lethargy, Denies malaise, Denies night sweats, Denies snoring and Denies weight loss Eyes: Eyes: Denies blurry vision and Denies itchy eyes ENT: Denies nasal congestion, Denies post nasal drip, Denies sinus pain, Denies sinus pressure and Denies other ( Thrush) Cardiovascular: Cardiovascular: Denies chest pain, Reports pedal edema, Denies dyspnea, Reports dyspnea on exertion, Denies orthopnea and Denies paroxysmal nocturnal dyspnea Respiratory: Respiratory: Denies cough, Denies hemoptysis, Denies excessive phlegm production, Denies dyspnea, Reports dyspnea on exertion, Denies snoring and Denies wheezing Gastrointestinal: Gastrointestinal: Denies abdominal pain and Denies heartburn Musculoskeletal: Musculoskeletal: Denies myalgias, Denies arthralgias and Denies joint swelling Integumentary/Breasts: Skin/Breast: Denies rash Neurologic: Denies memory loss and Denies seizure-like activity Psychiatric: Psychiatric: Denies abnormal sleep pattern, Denies anxiety and Denies memory loss Endocrine: Endocrine: Denies excessive sweating, Denies fatigue and Denies heat intolerance Hematologic/Lymphatic: Hematologic/Lymphatic: Denies easy bruising Allergic/Immunologic: Allergic/Immunologic: Denies itchy eyes, Denies seasonal rhinorrhea and Denies wheezing PMFSH Past Medical History Medical History Chronic a-fib Decubitus ulcer of back, stage 3 Oxygen dependent History of chronic carbon dioxide retention Compression fracture of thoracic vertebra Breast implant status CHF (congestive heart failure) Pressure ulcer COPD (chronic obstructive pulmonary disease) Osteoporosis Social History Social History Household Members: Other Household Members Other:: lives with sister but has been in rehab last few weeks Housing: House Do you presently have visiting nurse or other home services: Yes Alcohol intake: former Patient Tobacco Use Status: Former Tobacco user Tobacco use type: Cigarette Advance Directives Date on File: 08/18/23 service: No Meds Allergies Allergy/AdvReac Type Severity Reaction Status Date / Time codeine Allergy Intermediate Anaphylaxis Verified 09/02/23 22:36 morphine Allergy Anaphylaxis Verified 09/02/23 22:36 Active Medications: Current Medications Acetaminophen (Acetaminophen 325 Mg Tablet) 975 mg PO Q6H PRN PRN Reason: Pain, Mild (Pain Scale 1-3) Last Admin: 09/03/23 14:11 Dose: 975 mg Albuterol/Ipratropium (Albuterol/Iprat 2.5/0.5mg 3 Ml Ampul.Neb) 3 ml INHALE RQ4H WHILE AWAKE PRN PRN Reason: sob Last Admin: 09/03/23 08:09 Dose: 3 ml Apixaban (Apixaban 5 Mg Tablet) 5 mg PO BID MEGAN Last Admin: 09/03/23 08:16 Dose: 5 mg Atorvastatin Calcium (Atorvastatin Calcium 20 Mg Tablet) 20 mg PO BEDTIME [facility] Bisacodyl (Bisacodyl 10 Mg Supp.Rect) 10 mg [place] Q3D PRN PRN Reason: Constipation Fluticasone/Vilanterol (Fluticasone/Vilanterol 100/25 Blst.W.Dev) 1 puff INHALE DAILY [facility] Last Admin: 09/03/23 08:09 Dose: 1 puff Folic Acid (Folic Acid 1 Mg Tablet) 1 mg PO DAILY EMGAN Last Admin: 09/03/23 08:15 Dose: 1 mg Furosemide (Furosemide 20 Mg/2 Ml Vial) 20 mg IVPUSH Q12H [facility]; Protocol Last Admin: 09/03/23 11:01 Dose: 20 mg Gabapentin (Gabapentin 300 Mg Capsule) 600 mg PO TID MEGAN Last Admin: 09/03/23 08:15 Dose: 600 mg Guaifenesin (Guaifenesin 100 Mg/5 Ml Liquid) 10 ml PO Q8H PRN PRN Reason: Cough Ceftriaxone Sodium 1 gm/ (Sodium Chloride) 50 mls @ 100 mls/hr IV Q24H [facility] Azithromycin 500 mg/ Sodium (Chloride) 250 mls @ 125 mls/hr IV Q24H [facility] Albumin Human (Kedbumin 25 %) 100 mls @ 100 mls/hr IV Q6H [facility] Stop: 09/04/23 04:59 Last Infusion: 09/03/23 12:10 Dose: Infused Ketorolac Tromethamine (Ketorolac Tromethamine 15 Mg/Ml Vial) 15 mg IVPUSH Q6H PRN PRN Reason: Pain, Mild (Pain Scale 1-3) Last Admin: 09/03/23 14:11 Dose: 15 mg Lidocaine (Lidocaine 4 % Patch Adh..Patch) 1 patch TRANSDERMA DAILY [facility]; Protocol Last Admin: 09/03/23 14:11 Dose: 1 patch Melatonin (Melatonin 3 Mg Tablet) 3 mg PO BEDTIME [facility] Methylprednisolone Sodium Succinate (Methylprednisolone Sod Succ 40 Mg/Ml Vial) 40 mg IVPUSH Q12H [facility] Last Admin: 09/03/23 08:15 Dose: 40 mg Metoprolol Tartrate (Metoprolol Tartrate 25 Mg Tablet) 25 mg PO QID [facility]; Protocol Last Admin: 09/03/23 13:08 Dose: 25 mg Multivitamins/Vitamin C (Multivitamin Tablet) 1 tab PO DAILY [facility] Last Admin: 09/03/23 08:16 Dose: 1 tab Nicotine (Nicotine 21 Mg Patch.Td24) 21 mg TRANSDERMA DAILY [facility] Last Admin: 09/03/23 08:18 Dose: 21 mg Omeprazole (Omeprazole 20 Mg Capsule.Dr) 20 mg PO BID@0630,1630 [facility] Senna/Docusate Sodium (Sennosides/Docusate Sodium Tablet) 2 tab PO BEDTIME [facility] Sertraline HCl (Sertraline Hcl 25 Mg Tablet) 25 mg PO DAILY [facility] Last Admin: 09/03/23 08:17 Dose: 25 mg Sodium Chloride (0.9 % Sodium Chloride Flush 3 Ml Syringe) 3 ml IVFLUSH QSHIFT [facility] Last Admin: 09/03/23 02:34 Dose: 3 ml Thiamine HCl (Thiamine Hcl 100 Mg Tablet) 100 mg PO DAILY [facility] Last Admin: 09/03/23 08:17 Dose: 100 mg Tiotropium [place] (Tiotropium [place] 2.5 Mcg Inhaler) 2 puff INHALE DAILY [facility] Last Admin: 09/03/23 08:09 Dose: 2 puff Vitamin D (Cholecalciferol (Vitamin D3) 25 Mcg Tablet) 25 mcg PO DAILY [facility] Last Admin: 09/03/23 08:16 Dose: 25 mcg Home Medications Medication Instructions Recorded Confirmed Last Taken Type acetaminophen 325 mg tablet 650 mg PO Q6H PRN temp > 08/13/23 09/03/23 Unknown History 100/general discomfort albuterol sulfate 90 mcg/actuation 1 inh inhalation QID PRN Wheezing 08/13/23 09/03/23 Unknown History aerosol inhaler (Ventolin HFA) apixaban 5 mg tablet 5 mg PO BID 08/13/23 09/03/23 Unknown History aspirin 81 mg tablet,delayed 81 mg PO DAILY 08/13/23 09/03/23 Unknown History release atorvastatin 20 mg tablet 20 mg PO BEDTIME 08/13/23 09/03/23 Unknown History bisacodyl 10 mg rectal suppository 10 mg [place] Q3D PRN Constipation 08/13/23 09/03/23 Unknown History (Dulcolax (bisacodyl)) cholecalciferol (vitamin D3) 25 25 mcg PO DAILY 08/13/23 09/03/23 Unknown History mcg (1,000 unit) tablet collagenase clostridium histo. 250 1 appl topical DAILY 08/13/23 09/03/23 Unknown History unit/gram topical ointment (Santyl) fluticasone 250 mcg-salmeterol 50 1 inh inhalation BID 08/13/23 09/03/23 Unknown History mcg/dose blistr powdr for inhalation (Advair Diskus) folic acid 1 mg tablet 1 mg PO DAILY 08/13/23 09/03/23 Unknown History furosemide 40 mg tablet 40 mg PO DAILY 08/13/23 09/03/23 Unknown History gabapentin 300 mg capsule 600 mg PO TID 08/13/23 09/03/23 Unknown History guaifenesin 100 mg/5 mL oral liquid 200 mg PO Q8H PRN Cough 08/13/23 09/03/23 Unknown History ipratropium 0.5 mg-albuterol 3 mg 3 ml inhalation Q6H PRN SHORTNESS 08/13/23 09/03/23 Unknown History (2.5 mg base)/3 mL nebulization OF BREATH/WHEEZE soln lactulose 10 gram/15 mL oral 20 g PO Q12H PRN Constipation 08/13/23 09/03/23 Unknown History solution magnesium hydroxide 400 mg/5 mL 30 ml PO BEDTIME PRN Constipation 08/13/23 09/03/23 Unknown History oral suspension (Milk of Magnesia) melatonin 3 mg tablet 3 mg PO BEDTIME 08/13/23 09/03/23 Unknown History metoprolol succinate 50 mg 50 mg PO BID 08/13/23 09/03/23 Unknown History tablet,extended release 24 hr multivitamin 1 tab PO DAILY 08/13/23 09/03/23 Unknown History nicotine 21 mg/24 hr daily 1 patch transdermal DAILY 08/13/23 09/03/23 Unknown History transdermal patch oxycodone 5 mg tablet 2.5 mg PO Q6H PRN Pain 08/13/23 09/03/23 Unknown History pantoprazole 40 mg tablet,delayed 40 mg PO DAILY 08/13/23 09/03/23 Unknown History release (Protonix) sennosides 8.6 mg-docusate sodium 2 tab-cap PO BEDTIME 08/13/23 09/03/23 Unknown History 50 mg tablet (Senna Plus) sertraline 25 mg tablet 25 mg PO DAILY 08/13/23 09/03/23 Unknown History sodium phosphates 19 gram-7 118 ml AK DAILY PRN Constipation 08/13/23 09/03/23 Unknown History gram/118 mL enema (Fleet Enema) thiamine HCl (vitamin B1) 100 mg 100 mg PO DAILY 08/13/23 09/03/23 Unknown History tablet umeclidinium 62.5 mcg/actuation 1 inh inhalation DAILY 08/13/23 09/03/23 Unknown History blister powder for inhalation (Incruse Ellipta) lorazepam 0.5 mg tablet 0.5 mg PO BID PRN anxiety 09/03/23 09/03/23 Unknown History Physical Exam 2 Vital Signs: Vital Signs: Last Vital Signs Temp 97.5 F 09/03/23 15:37 Pulse 104 H 09/03/23 15:37 Resp 16 09/03/23 15:37 BP 122/60 09/03/23 15:37 Pulse Ox 99 09/03/23 15:37 O2 Del Method Nasal Cannula 09/03/23 15:37 O2 Flow Rate 3 09/03/23 15:37 Oxygen Flow Rate 3 09/02/23 22:52 BMI result Body Mass Index 20.8 Const: General: no acute distress and alert Nutritional Appearance: not obese Orientation/consciousness: Other orientation findings ( oriented) HEENT: Head: Yes atraumatic Eyes: General: appearance normal, both eyes and all related structures S clerae: sclerae normal EOM: EOMs intact bilaterally Neck: Neck: Yes supple Lymphatic: no lymphadenopathy noted Resp: Effort & Inspection: normal respiratory effort and no use of accessory muscles Auscultation: crackles (Mild bilateral) Cardio: Rate: tachycardic Rhythm: regular rhythm Heart sounds: no gallops, no murmurs and no rubs Skin: General skin exam: other ( warm) Extrem: General: No clubbing, No cyanosis and Yes edema (Trace bilateral) Results Laboratory Findings 09/02/23 23:17 09/02/23 23:17 ABG, PT/INR, D-dimer: PT/INR, D-dimer PT 13.6 SEC (11.1-13.3) H D 09/02/23 23:17 INR 1.1 (0.9-1.1) 09/02/23 23:17 Abnormal lab findings: Abnormal Labs 09/02/23 09/03/23 23:17 10:18 WBC 25.8 H RBC 3.84 L Hgb 11.2 L Hct 35.0 L Plt Count 414 H Absolute Nucleated RBC 0.030 H Neutrophils % (Manual) 79 H Band Neutrophils % 2 L Lymphocytes % (Manual) 6 L Abs Neuts (Manual) 20.9 H Monocytes # (Manual) 2.3 H PT 13.6 H D APTT 24.1 L VBG HCO3 33 H Chloride 95 L Carbon Dioxide 30 H BUN 17 H Random Glucose 164 H Lactic Acid 2.7 H* B-Natriuretic Peptide 892 H Total Protein 6.1 L Albumin 3.3 L SARS-CoV-2 RNA (RT-PCR) POSITIVE A Assessment and Plan (1) Pneumonia: Qualifiers: Laterality: right Pneumonia type: due to unspecified organism Status: Acute (2) COPD (chronic obstructive pulmonary disease): Status: Acute (3) Bilateral pleural effusion: Status: Acute (4) Congestive heart failure (CHF): Status: Acute Plan Impression: 62-year-old lady with underlying COPD with CO2 retention and chronic supplemental oxygen dependent on 2 L, also AFib and diastolic heart failure admitted with worsening dyspnea secondary to combination of exacerbation of underlying congestive heart failure and likely bacterial superinfection of previous COVID pneumonia. Recommendations: Agree with current coverage for the community-acquired pneumonia. Agree with further diuresis. Would recommend again stepping pleural effusions at this time in proceed with diuresis, if not improving, then may consider tapping the right-side. Procedures Date of Service Date of Service: 09/03/23
--- NOTE | 2023-09-03 16:21 | P.PNIM_ITS ---
Subjective Subjective Date of Service: 09/03/23 Interval History: severe sepsis and acute on chronic hypoxic respiratory failure Review of Systems sob seems somewhat imporving no fevers Physical Exam 2 Vital Signs: Vital Signs: Last Vital Signs Temp 97.5 F 09/03/23 15:37 Pulse 104 H 09/03/23 15:37 Resp 16 09/03/23 15:37 BP 122/60 09/03/23 15:37 Pulse Ox 99 09/03/23 15:37 O2 Del Method Nasal Cannula 09/03/23 15:37 O2 Flow Rate 3 09/03/23 15:37 Oxygen Flow Rate 3 09/02/23 22:52 BMI result Body Mass Index 20.8 Appearance: Alert.? Oriented X3.? not in distress.? cvs: rrr, [id number] , no murmur res: air entry fair , few rhonchii abd: no rebound or guarding ,nt, bs present. ext pulses present , no cyanosis ,Gait well balanced well coordinated. neuro: axo3 , nonfocal. Objective Data Active Medications Acetaminophen (Acetaminophen 325 Mg Tablet) 975 mg PO Q6H PRN PRN Reason: Pain, Mild (Pain Scale 1-3) Last Admin: 09/03/23 14:11 Dose: 975 mg Documented By: JONAS Albuterol/Ipratropium (Albuterol/Iprat 2.5/0.5mg 3 Ml Ampul.Neb) 3 ml INHALE RQ4H WHILE AWAKE PRN PRN Reason: sob Last Admin: 09/03/23 08:09 Dose: 3 ml Documented By: CLARE Apixaban (Apixaban 5 Mg Tablet) 5 mg PO BID [facility] Last Admin: 09/03/23 08:16 Dose: 5 mg Documented By: TELMA Atorvastatin Calcium (Atorvastatin Calcium 20 Mg Tablet) 20 mg PO BEDTIME [facility] Bisacodyl (Bisacodyl 10 Mg Supp.Rect) 10 mg [place] Q3D PRN PRN Reason: Constipation Fluticasone/Vilanterol (Fluticasone/Vilanterol 100/25 Blst.W.Dev) 1 puff INHALE DAILY [facility] Last Admin: 09/03/23 08:09 Dose: 1 puff Documented By: CLARE Folic Acid (Folic Acid 1 Mg Tablet) 1 mg PO DAILY [facility] Last Admin: 09/03/23 08:15 Dose: 1 mg Documented By: TELMA Furosemide (Furosemide 20 Mg/2 Ml Vial) 20 mg IVPUSH Q12H [facility]; Protocol Last Admin: 09/03/23 11:01 Dose: 20 mg Documented By: JONAS Gabapentin (Gabapentin 300 Mg Capsule) 600 mg PO TID [facility] Last Admin: 09/03/23 08:15 Dose: 600 mg Documented By: TELMA Guaifenesin (Guaifenesin 100 Mg/5 Ml Liquid) 10 ml PO Q8H PRN PRN Reason: Cough Ceftriaxone Sodium 1 gm/ (Sodium Chloride) 50 mls @ 100 mls/hr IV Q24H [facility] Azithromycin 500 mg/ Sodium (Chloride) 250 mls @ 125 mls/hr IV Q24H [facility] Albumin Human (Kedbumin 25 %) 100 mls @ 100 mls/hr IV Q6H [facility] Stop: 09/04/23 04:59 Last Infusion: 09/03/23 12:10 Dose: Infused Documented By: JONAS Ketorolac Tromethamine (Ketorolac Tromethamine 15 Mg/Ml Vial) 15 mg IVPUSH Q6H PRN PRN Reason: Pain, Mild (Pain Scale 1-3) Last Admin: 09/03/23 14:11 Dose: 15 mg Documented By: JONAS Lidocaine (Lidocaine 4 % Patch Adh..Patch) 1 patch TRANSDERMA DAILY [facility]; Protocol Last Admin: 09/03/23 14:11 Dose: 1 patch Documented By: JONAS Melatonin (Melatonin 3 Mg Tablet) 3 mg PO BEDTIME [facility] Methylprednisolone Sodium Succinate (Methylprednisolone Sod Succ 40 Mg/Ml Vial) 40 mg IVPUSH Q12H [facility] Last Admin: 09/03/23 08:15 Dose: 40 mg Documented By: TELMA Metoprolol Tartrate (Metoprolol Tartrate 25 Mg Tablet) 25 mg PO QID [facility]; Protocol Last Admin: 09/03/23 13:08 Dose: 25 mg Documented By: JONAS Multivitamins/Vitamin C (Multivitamin Tablet) 1 tab PO DAILY [facility] Last Admin: 09/03/23 08:16 Dose: 1 tab Documented By: TELMA Nicotine (Nicotine 21 Mg Patch.Td24) 21 mg TRANSDERMA DAILY [facility] Last Admin: 09/03/23 08:18 Dose: 21 mg Documented By: TELMA Omeprazole (Omeprazole 20 Mg Capsule.Dr) 20 mg PO BID@0630,1630 [facility] Senna/Docusate Sodium (Sennosides/Docusate Sodium Tablet) 2 tab PO BEDTIME [facility] Sertraline HCl (Sertraline Hcl 25 Mg Tablet) 25 mg PO DAILY [facility] Last Admin: 09/03/23 08:17 Dose: 25 mg Documented By: TELMA Sodium Chloride (0.9 % Sodium Chloride Flush 3 Ml Syringe) 3 ml IVFLUSH QSHIFT [facility] Last Admin: 09/03/23 02:34 Dose: 3 ml Documented By: CITLALY Thiamine HCl (Thiamine Hcl 100 Mg Tablet) 100 mg PO DAILY [facility] Last Admin: 09/03/23 08:17 Dose: 100 mg Documented By: TELMA Tiotropium [place] (Tiotropium [place] 2.5 Mcg Inhaler) 2 puff INHALE DAILY [facility] Last Admin: 09/03/23 08:09 Dose: 2 puff Documented By: CLARE Vitamin D (Cholecalciferol (Vitamin D3) 25 Mcg Tablet) 25 mcg PO DAILY [facility] Last Admin: 09/03/23 08:16 Dose: 25 mcg Documented By: TELMA Labs 09/02/23 23:17 09/02/23 23:17 Labs: Laboratory Results - last 24 hr 09/02/23 09/03/23 09/03/23 23:17 02:35 10:18 MCV 91.1 MCH 29.2 MCHC 32.0 RDW 14.6 Plt Count 414 H MPV 9.5 Immature Gran % (Auto) Cancelled Neut % (Auto) Cancelled Lymph % (Auto) Cancelled [place] % (Auto) Cancelled Eos % (Auto) Cancelled Baso % (Auto) Cancelled Lymph # (Auto) Cancelled [place] # (Auto) Cancelled Eos # (Auto) Cancelled Baso # (Auto) Cancelled Abs Immat Gran (auto) Cancelled Absolute Neuts (auto) Cancelled Absolute Nucleated RBC 0.030 H Nucleated RBC % (auto) 0.1 Neutrophils % (Manual) 79 H Band Neutrophils % 2 L Lymphocytes % (Manual) 6 L Monocytes % (Manual) 9 Eosinophils % (Manual) 1 Metamyelocytes % 2 Myelocytes % 1 Abs Neuts (Manual) 20.9 H Lymphocytes # (Manual) 1.5 Monocytes # (Manual) 2.3 H Eosinophils # (Manual) 0.3 Metamyelocytes # 0.5 Myelocytes # 0.3 Platelet Estimate NORMAL Plt Morphology Comment NORMAL RBC Morphology NORMAL PT 13.6 H D INR 1.1 APTT 24.1 L VBG pH 7.36 VBG pCO2 58 VBG pO2 79 VBG HCO3 33 H VBG O2 Saturation 97.0 VBG Base Excess 6.7 Anion Gap 15 Estim Creat Clear Calc 78.6 Estimated GFR > 60 Random Glucose 164 H Lactic Acid 2.7 H* Lactic Acid F/U @ 2Hr 1.2 Calcium 8.7 Total Bilirubin 0.2 AST 26 ALT 19 Alkaline Phosphatase 108 B-Natriuretic Peptide 892 H Total Protein 6.1 L Albumin 3.3 L Lipase 22 Procalcitonin < 0.02 Influenza Type A (PCR) NEGATIVE Influenza Type B (PCR) NEGATIVE RSV RNA Qual (PCR) NEGATIVE SARS-CoV-2 RNA (RT-PCR) POSITIVE A Assessment and Plan (1) Atrial fibrillation with rapid ventricular response: Status: Acute (2) Decubital ulcer: Status: Acute (3) Acute exacerbation of chronic obstructive pulmonary disease: Status: Acute Plan copd, chronic hypoxic and hypercapnic respiratory failure on 2 L home O2, unspecified atrial fibrillation on apixaban, hfpef pulm htn, presented with sob severe sepsis and acute on chronic hypoxic respiratory failure due to copd with acute decompensation due to recent covid 19 infection complicated by superimposed bacterial pneumonia vbg noted ct chestadded still sob with minimal excersion rocephin, azithro steroids, nebs follow up cultures wean o2 as tolerated pulm eval. persistent afib with rvr hr slwoly improivng lopressor 25mg qid, eliquis monitor cardio eval noted -added digoxin/metoprolol. decubitus ulcer wound care consult-orders added,staff aware. chronic diastolic/ right sided chf excerebation, pulm htn given iv fluids for sepsis, started iv lasix moderate protein calorie malnutrition nutrition eval dvt prophylaxis - eliquis full code ongoing hospitlisation need:pneumonia /chf -need iv antibiotics and lasix , i/o ,weight ,bnp monitering - hypoxia and sob, due to age and fraility at risk for further decopmensation,expert consultation. Quality Stroke Does the patient have a stroke diagnosis?: No VTE Prior VTE?: No VTE Risk Level:: Medical - moderate - high VTE Device Contraindication: Treatment Not Indicated VTE Drug Contraindication: N/A - Med Ordered
[2023-09-03] MEDS: Digoxin 0.25 MG TABLET PO (16:51)
[2023-09-03] MEDS: hydrOXYzine HCL 25 MG TABLET PO (18:35)
[2023-09-03] MEDS: guaiFENesin 100 MG/5 ML LIQUID 10 ML PO (19:54)
[2023-09-03] MEDS: Sennosides/Docusate Sodium TABLET 2 TAB PO (19:55)
[2023-09-03] MEDS: Melatonin 3 MG TABLET PO (19:56)
[2023-09-03] MEDS: Atorvastatin Calcium 20 MG TABLET PO (19:58)
[2023-09-04] VITALS (11 sets, daily range): BP systolic 130–158; BP diastolic 71–86; PULSE 90–137; RESP 16–32; TEMP 36.1–37; O2SAT 88–100
[2023-09-04] MEDS: Albumin Human 25 % 100 ML IV (05:00)
[2023-09-04] MEDS: hydrOXYzine HCL 25 MG TABLET PO ×2 (05:13→20:11)
[2023-09-04] MEDS: oxyCODONE HCl Immed Release 5 MG TABLET PO (05:14)
[2023-09-04] MEDS: Omeprazole 20 MG CAPSULE.DR PO ×2 (05:16→17:24)
[2023-09-04] MEDS: guaiFENesin 100 MG/5 ML LIQUID 10 ML PO (05:30)
[2023-09-04 08:05] LABS: Hematocrit 28.5 % (37.0-47.0); Hemoglobin 9.1 g/dl (12.0-16.0); Mean Corpuscular HGB Conc 31.9 g/dl (31.0-35.0); Mean Corpuscular Hemoglobin 29.7 pg (27.0-33.0); Mean Corpuscular Volume 93.1 fL (80.0-98.0); Mean Platelet Volume 10.2 fL (9.4-12.3); NRBC Pct Auto 0.4 /100WBC (0.0-0.2); Platelet Count 334 X10*3/uL (160-400); Red Blood Count 3.06 X10*6/uL (4.20-5.50); White Blood Count 19.1 X10*3/uL (4.8-10.8)
[2023-09-04] MEDS: Fluticasone/Vilanterol 100/25 BLST.W.DEV 1 PUFF INHALE (08:06)
[2023-09-04 08:25] LABS: Anion Gap 14 (12-20); Blood Urea Nitrogen 17 mg/dL (9-16); Calcium 9.7 mg/dL (8.4-10.2); Carbon Dioxide 30 mmol/L (22-29); Chloride 96 mmol/L (96-108); Estimated Glomerular Filt Rate > 60; Glucose Fasting 168 mg/dL (60-99); Potassium 4.2 mmol/L (3.3-5.1); Sodium 136 mmol/L (135-145)
[2023-09-04] MEDS: Apixaban 5 MG TABLET PO ×2 (09:58→20:11)
[2023-09-04] MEDS: Cholecalciferol (Vitamin D3) 25 MCG TABLET PO (09:58)
[2023-09-04] MEDS: Multivitamin TABLET 1 TAB PO (09:58)
[2023-09-04] MEDS: Digoxin 0.25 MG TABLET PO (09:58)
[2023-09-04] MEDS: Sertraline HCL 25 MG TABLET PO (09:58)
[2023-09-04] MEDS: Metoprolol Tartrate 25 MG TABLET PO ×4 (09:58→20:18)
[2023-09-04] MEDS: Folic Acid 1 MG TABLET PO (09:58)
[2023-09-04] MEDS: Furosemide 20 MG/2 ML VIAL IVPUSH (09:59)
[2023-09-04] MEDS: Gabapentin 300 MG CAPSULE 600 MG PO ×2 (09:59→17:25)
[2023-09-04] MEDS: Nicotine 21 MG PATCH.TD24 TRANSDERMA (09:59)
[2023-09-04] MEDS: methylPREDNISolone Sod Succ 40 MG/ML VIAL IVPUSH ×2 (09:59→20:11)
[2023-09-04] MEDS: Thiamine HCL 100 MG TABLET PO (09:59)
[2023-09-04] MEDS: 0.9 % Sodium Chloride Flush 3 ML SYRINGE IVFLUSH ×2 (10:00→17:28)
[2023-09-04] MEDS: Albuterol Sulfate 5 MG, Albuterol/Iprat 2.5/0.5MG 3 ML 3 ML INHALE (10:01)
[2023-09-04] MEDS: Azithromycin 500 MG in 0.9 % Sodium Chloride 250 ML 125 MG IV (10:01)
[2023-09-04] MEDS: Magnesium Sulfate/D5W 1 GM/100 ML PIGGYBACK IV ×2 (11:35→17:54)
--- NOTE | 2023-09-04 13:52 | P.PNIM_ITS ---
Subjective Subjective Date of Service: 09/04/23 Interval History: severe sepsis and acute on chronic hypoxic respiratory failur Review of Systems sob seems improving denies any cough i/o? moniterin no fever or chills Physical Exam 2 Vital Signs: Vital Signs: Last Vital Signs Temp 97.9 F 09/04/23 12:00 Pulse 100 09/04/23 12:00 Resp 16 09/04/23 12:00 BP 132/72 09/04/23 12:00 Pulse Ox 92 09/04/23 12:00 O2 Del Method Nasal Cannula 09/04/23 12:00 O2 Flow Rate 2 09/04/23 12:00 Oxygen Flow Rate 3 09/02/23 22:52 BMI result Body Mass Index 20.8 Appearance: Alert.? Oriented X3.? not in distress.? cvs: rrr, [id number] , no murmur res: diminished bilateral, few wheezes abd: no rebound or guarding ,nt, bs present. ext pulses present , no cyanosis. neuro: axo3 , nonfocal. Objective Data Active Medications Acetaminophen (Acetaminophen 325 Mg Tablet) 975 mg PO Q6H PRN PRN Reason: Pain, Mild (Pain Scale 1-3) Last Admin: 09/03/23 19:56 Dose: 975 mg Documented By: JINA Albuterol/Ipratropium (Albuterol/Iprat 2.5/0.5mg 3 Ml Ampul.Neb) 3 ml INHALE RQ4H WHILE AWAKE PRN PRN Reason: sob Last Admin: 09/03/23 19:33 Dose: 3 ml Documented By: MER Apixaban (Apixaban 5 Mg Tablet) 5 mg PO BID [facility] Last Admin: 09/04/23 09:58 Dose: 5 mg Documented By: STEPHENIE Atorvastatin Calcium (Atorvastatin Calcium 20 Mg Tablet) 20 mg PO BEDTIME [facility] Last Admin: 09/03/23 19:58 Dose: 20 mg Documented By: JINA Bisacodyl (Bisacodyl 10 Mg Supp.Rect) 10 mg [place] Q3D PRN PRN Reason: Constipation Digoxin (Digoxin 0.25 Mg Tablet) 0.25 mg PO DAILY [facility] Last Admin: 09/04/23 09:58 Dose: 0.25 mg Documented By: STEPHENIE Fluticasone/Vilanterol (Fluticasone/Vilanterol 100/25 Blst.W.Dev) 1 puff INHALE DAILY [facility] Last Admin: 09/04/23 08:06 Dose: 1 puff Documented By: CLARE Folic Acid (Folic Acid 1 Mg Tablet) 1 mg PO DAILY [facility] Last Admin: 09/04/23 09:58 Dose: 1 mg Documented By: STEPHENIE Furosemide (Furosemide 20 Mg/2 Ml Vial) 20 mg IVPUSH Q12H [facility]; Protocol Last Admin: 09/04/23 09:59 Dose: 20 mg Documented By: STEPHENIE Gabapentin (Gabapentin 300 Mg Capsule) 600 mg PO TID [facility] Last Admin: 09/04/23 09:59 Dose: 600 mg Documented By: STEPHENIE Guaifenesin (Guaifenesin 100 Mg/5 Ml Liquid) 10 ml PO Q8H PRN PRN Reason: Cough Last Admin: 09/04/23 05:30 Dose: 10 ml Documented By: JINA Hydroxyzine HCl (Hydroxyzine Hcl 25 Mg Tablet) 25 mg PO Q6H PRN PRN Reason: anxiety/restlessness Last Admin: 09/04/23 05:13 Dose: 25 mg Documented By: JINA Ceftriaxone Sodium 1 gm/ (Sodium Chloride) 50 mls @ 100 mls/hr IV Q24H [facility] Last Infusion: 09/03/23 23:00 Dose: Infused Documented By: JINA Azithromycin 500 mg/ Sodium (Chloride) 250 mls @ 125 mls/hr IV Q24H [facility] Last Infusion: 09/04/23 13:08 Dose: Infused Documented By: STEPHENIE Lidocaine (Lidocaine 4 % Patch Adh..Patch) 1 patch TRANSDERMA DAILY [facility]; Protocol Last Admin: 09/04/23 10:27 Dose: Not Given Documented By: STEPHENIE Non-Admin Reason: Patient Refused Melatonin (Melatonin 3 Mg Tablet) 3 mg PO BEDTIME [facility] Last Admin: 09/03/23 19:56 Dose: 3 mg Documented By: JINA Methylprednisolone Sodium Succinate (Methylprednisolone Sod Succ 40 Mg/Ml Vial) 40 mg IVPUSH Q12H [facility] Last Admin: 09/04/23 09:59 Dose: 40 mg Documented By: STEPHENIE Metoprolol Tartrate (Metoprolol Tartrate 25 Mg Tablet) 25 mg PO QID [facility]; Protocol Last Admin: 09/04/23 09:58 Dose: 25 mg Documented By: STEPHENIE Multivitamins/Vitamin C (Multivitamin Tablet) 1 tab PO DAILY [facility] Last Admin: 09/04/23 09:58 Dose: 1 tab Documented By: STEPHENIE Nicotine (Nicotine 21 Mg Patch.Td24) 21 mg TRANSDERMA DAILY [facility] Last Admin: 09/04/23 09:59 Dose: 21 mg Documented By: STEPHENIE Omeprazole (Omeprazole 20 Mg Capsule.Dr) 20 mg PO BID@0630,1630 [facility] Last Admin: 09/04/23 05:16 Dose: 20 mg Documented By: JINA Oxycodone HCl (Oxycodone Hcl Immed Release 5 Mg Tablet) 5 mg PO Q4H PRN PRN Reason: Pain, Moderate(Pain Scale 4-6) Last Admin: 09/04/23 05:14 Dose: 5 mg Documented By: JINA Senna/Docusate Sodium (Sennosides/Docusate Sodium Tablet) 2 tab PO BEDTIME [facility] Last Admin: 09/03/23 19:55 Dose: 2 tab Documented By: JINA Sertraline HCl (Sertraline Hcl 25 Mg Tablet) 25 mg PO DAILY [facility] Last Admin: 09/04/23 09:58 Dose: 25 mg Documented By: STEPHENIE Sodium Chloride (0.9 % Sodium Chloride Flush 3 Ml Syringe) 3 ml IVFLUSH QSHIFT [facility] Last Admin: 09/04/23 10:00 Dose: 3 ml Documented By: STEPHENIE Thiamine HCl (Thiamine Hcl 100 Mg Tablet) 100 mg PO DAILY [facility] Last Admin: 09/04/23 09:59 Dose: 100 mg Documented By: STEPHENIE Tiotropium [place] (Tiotropium [place] 2.5 Mcg Inhaler) 2 puff INHALE DAILY [facility] Last Admin: 09/04/23 08:06 Dose: 2 puff Documented By: CLARE Vitamin D (Cholecalciferol (Vitamin D3) 25 Mcg Tablet) 25 mcg PO DAILY [facility] Last Admin: 09/04/23 09:58 Dose: 25 mcg Documented By: STEPHENIE Labs 09/04/23 07:10 09/04/23 07:10 Labs: Laboratory Results - last 24 hr 09/04/23 07:10 MCV 93.1 MCH 29.7 MCHC 31.9 RDW 15.0 Plt Count 334 MPV 10.2 Absolute Nucleated RBC 0.070 H Nucleated RBC % (auto) 0.4 H Anion Gap 14 Estim Creat Clear Calc 80.0 Estimated GFR > 60 Fasting Glucose 168 H Calcium 9.7 D Magnesium 2.0 Microbiology Microbiology Results: Microbiology 09/02/23 23:16 Blood Culture - Preliminary Blood - Venous No growth after 24 hours. 09/02/23 23:16 Blood Culture - Preliminary Blood - Venous No growth after 24 hours. Assessment and Plan (1) Bilateral pleural effusion: Status: Acute (2) Decubital ulcer: Status: Acute (3) Atrial fibrillation with rapid ventricular response: Status: Acute Plan copd, chronic hypoxic and hypercapnic respiratory failure on 2 L home O2, unspecified atrial fibrillation on apixaban, hfpef pulm htn, presented with sob severe sepsis and acute on chronic hypoxic respiratory failure due to copd with acute decompensation due to recent covid 19 infection complicated by superimposed bacterial pneumonia vbg noted ct chest: pneumonia vs chf still sob with minimal excersion blood culture neg@24hrs continue rocephin, azithro(09/03/23),steroids, nebs,wean o2 as tolerated pulm evalnoted -continue iv antibiotics persistent afib with rvr improivng tele monitor cardio eval noted -continue eliquis digoxin/metoprolol. chronic diastolic/ right sided chf excerebation, pulm htn sob somewhat improivng i/o rafa ramos for fluid maangement given iv fluids for sepsis, continue iv lasix moderate protein calorie malnutrition nutrition eval decubitus ulcer wound care seen pat: 1. Sacrum - Off Load Pressure - Cleanse with normal saline and pat dry. ?Apply Antifungal powder to denis-wound, lightly pack sacrum with Durafiber AG cover with sacral foam dressing. ?Change Daily. Follow provider orders for topical antifungal treatment. 2. Turn and Reposition every 2 hours and as needed for patient comfort consider uses of wedges and pillows. 3. Off Load all bony prominences with use of pillows and or heels protecting boots. 4. Monitor for incontinence and moisture control - Purewick in place with mesh underwear - do not use towel between legs as this traps moisture against the patients skin. 5. Provide adequate and supplemental nutrition - consider nutrition consult. 6. Order low air loss mattress. dvt prophylaxis - eliquis full code ongoing hospitlisation need:pneumonia /chf -need iv antibiotics and lasix , i/o ,weight ,bnp monitering - hypoxia and sob, due to age and fraility at risk for further decopmensation,expert consultation Quality Stroke Does the patient have a stroke diagnosis?: No VTE Prior VTE?: No VTE Risk Level:: Medical - moderate - high VTE Device Contraindication: Treatment Not Indicated VTE Drug Contraindication: N/A - Med Ordered
[2023-09-04 14:38] LABS: Procalcitonin 0.02 ng/mL
[2023-09-04 17:25] LABS: Venous Blood Gas Refer to POC result
[2023-09-04 17:25] LABS: VBG HCO3 38 mmol/L (22-26); VBG pCO2 50 mmHg; VBG pH 7.48 (7.32-7.43); VBG pO2 80 mmHg
[2023-09-04] MEDS: Furosemide 40 MG/4 ML VIAL IVPUSH (17:54)
[2023-09-04] MEDS: LORazepam 0.5 MG TABLET PO (17:54)
[2023-09-04] MEDS: levalbuterol HCL 1.25 MG/3 ML VIAL.NEB 5 MG INHALE (17:57)
[2023-09-04] MEDS: dilTIAZem HCL 50 MG/10 ML VIAL IVPUSH (18:06)
[2023-09-04] MEDS: Albuterol/Iprat 2.5/0.5MG 3 ML AMPUL.NEB INHALE (19:45)
[2023-09-04] MEDS: Sennosides/Docusate Sodium TABLET 2 TAB PO (20:11)
[2023-09-04] MEDS: Melatonin 3 MG TABLET PO (20:11)
[2023-09-04] MEDS: Atorvastatin Calcium 20 MG TABLET PO (20:11)
[2023-09-04] MEDS: cefTRIAXone sodium 1 GM in 0.9 % Sodium Chloride 50 ML IV (21:56)
[2023-09-05] VITALS (15 sets, daily range): BP systolic 140–170; BP diastolic 66–93; PULSE 90–148; RESP 16–32; TEMP 35.9–37.1; O2SAT 90–100
[2023-09-05] MEDS: 0.9 % Sodium Chloride Flush 3 ML SYRINGE IVFLUSH ×4 (00:14→20:12)
[2023-09-05] MEDS: Albuterol/Iprat 2.5/0.5MG 3 ML AMPUL.NEB INHALE (04:53)
[2023-09-05] MEDS: Furosemide 40 MG/4 ML VIAL IVPUSH (06:08)
[2023-09-05] MEDS: Omeprazole 20 MG CAPSULE.DR PO ×2 (06:09→16:00)
--- NOTE | 2023-09-05 06:26 | PC.NURSE ---
Patient requesting Gabapentin, on hold for unknown reason.
[2023-09-05] MEDS: Sertraline HCL 25 MG TABLET PO (08:52)
[2023-09-05] MEDS: Multivitamin TABLET 1 TAB PO (08:52)
[2023-09-05] MEDS: Thiamine HCL 100 MG TABLET PO (08:52)
[2023-09-05] MEDS: Nicotine 21 MG PATCH.TD24 TRANSDERMA (08:53)
[2023-09-05] MEDS: Digoxin 0.25 MG TABLET PO (08:53)
[2023-09-05] MEDS: Metoprolol Tartrate 25 MG TABLET PO ×4 (08:53→20:08)
[2023-09-05] MEDS: Cholecalciferol (Vitamin D3) 25 MCG TABLET PO (08:53)
[2023-09-05] MEDS: Apixaban 5 MG TABLET PO ×2 (08:53→20:08)
[2023-09-05] MEDS: Folic Acid 1 MG TABLET PO (08:53)
[2023-09-05] MEDS: Azithromycin 500 MG in 0.9 % Sodium Chloride 250 ML 125 MG IV (08:54)
[2023-09-05] MEDS: methylPREDNISolone Sod Succ 40 MG/ML VIAL IVPUSH ×2 (08:54→20:09)
[2023-09-05] MEDS: dilTIAZem HCL 50 MG/10 ML VIAL IVPUSH (08:54)
[2023-09-05] MEDS: Fluticasone/Vilanterol 100/25 BLST.W.DEV 1 PUFF INHALE (08:55)
[2023-09-05 09:28] LABS: Venous Blood Gas Refer to POC result
[2023-09-05 09:29] LABS: VBG Base Excess 18.1 mmol/L; VBG HCO3 46 mmol/L (22-26); VBG pCO2 69 mmHg; VBG pH 7.43 (7.32-7.43); VBG pO2 96 mmHg
[2023-09-05 09:59] LABS: Anion Gap 13 (12-20); Blood Urea Nitrogen 16 mg/dL (9-16); Calcium 9.9 mg/dL (8.4-10.2); Carbon Dioxide 37 mmol/L (22-29); Chloride 92 mmol/L (96-108); Creatinine Clr Calc Pharmacy 78.5; Estimated Glomerular Filt Rate > 60; Glucose Random 156 mg/dL (60-115); Potassium 3.6 mmol/L (3.3-5.1); Sodium 138 mmol/L (135-145)
--- NOTE | 2023-09-05 10:40 | PM.PNCARD ---
Subjective Subjective Date of Service: 09/05/23 Interval history: Seen and examined at bedside. COVID +. PNA. Significant work of breathing and using accessory muscles. Physical Exam Vital Signs: Last Vital Signs Temp 98.7 F 09/05/23 07:41 Pulse 120 H 09/05/23 09:02 Resp 18 09/05/23 09:02 BP 164/78 H 09/05/23 07:41 Pulse Ox 100 09/05/23 07:41 O2 Del Method Nasal Cannula 09/05/23 07:41 O2 Flow Rate 5 09/05/23 07:41 Oxygen Flow Rate 3 09/02/23 22:52 BMI result Body Mass Index 20.8 GENERAL APPEARANCE: Distressed, short of breath, using accessory muscles. NECK: + jugular venous distention. SKIN: no suspicious lesions, warm and dry. HEART: no murmurs, irregular rate and rhythm. Tachycardic. LUNGS: clear to auscultation anteriorly. Prolonged expiratory phase. ABDOMEN: soft, nontender. EXTREMITIES: no edema. PERIPHERAL PULSES: equal. NEUROLOGIC: No gross deficits, AAO X 3 Objective Labs and Meds 09/04/23 07:10 09/05/23 09:11 Lab results: Laboratory Results - last 24 hr 09/04/23 09/04/23 09/05/23 07:10 17:19 09:11 Hold Purple Top SEE NOTE VBG pH 7.48 H VBG pCO2 50 VBG pO2 80 VBG HCO3 38 H VBG O2 Saturation 97.0 VBG Base Excess 13.0 Sodium 138 Potassium 3.6 Chloride 92 L Carbon Dioxide 37 H Anion Gap 13 BUN 16 Creatinine 0.52 Estim Creat Clear Calc 78.5 Estimated GFR > 60 Random Glucose 156 H Calcium 9.9 Procalcitonin 0.02 09/05/23 09:23 Hold Purple Top VBG pH 7.43 VBG pCO2 69 VBG pO2 96 VBG HCO3 46 H VBG O2 Saturation 100.0 VBG Base Excess 18.1 Sodium Potassium Chloride Carbon Dioxide Anion Gap BUN Creatinine Estim Creat Clear Calc Estimated GFR Random Glucose Calcium Procalcitonin Imaging Radiologist's impression: Impressions Chest X-Ray 09/04/23 17:55 IMPRESSION: 1. Right greater than left consolidation in the lower lobes and pleural effusions worsening over the last 3 weeks. 2. Interstitial pulmonary edema. 3. Pulmonary nodules. Follow-up chest CT indicated after resolution of acute clinical process. Progress Note: A&P Assessment and plan (1) Bilateral pleural effusion: Status: Acute (2) Pneumonia: Status: Acute (3) Chronic a-fib: Status: Acute Plan 62 female with COPD, PNA, COVID and chronic Afib. Mild CHF. Agree with Iv Lasix 40 mg HR would be tough to control significant PNA, CHF and significant work of breathing. Time Spent With Patient Time: Total time managing care of this patient today ____ minutes. Progress Note: Quality Stroke Does the patient have a stroke diagnosis?: No Procedures Date of Service Date of Service: 09/05/23
[2023-09-05] MEDS: fentaNYL citrate/PF 100 MCG/2 ML VIAL 50 MCG IVPUSH (11:48)
[2023-09-05] MEDS: acetaZOLAMIDE sodium 500 MG VIAL 375 MG IVPUSH ×2 (11:48→20:18)
[2023-09-05] MEDS: levalbuterol HCL 1.25 MG/3 ML VIAL.NEB 5 MG INHALE (12:01)
--- NOTE | 2023-09-05 12:01 | PC.NURSE ---
Pt on 2 L NC, desatting to 78-80%. MD notified and patient placed on face mask 8 L. O2 sat improved to 90% and RT in room to administer breathing treatment. Per RT, pt O2 desatting to low 80s% on face mask 15 L. Pt appearing in respiratory distress, unable to speak, looking dazed. Hospitalist paged and at bedside with ICU provider. Pt placed on High flow oxygen 50 L at 35%. Pt administered 50 mcg fentanyl per provider. Pt administered Xopenenx treatment by RT. Pt now awake and alert with improved O2 sat of 90%.
--- NOTE | 2023-09-05 12:02 | PC.RT ---
found pt in resp distress, shallow breathing spo2 86% on oxymask of 15L, placed pt on NIV 10/5 40% to help with WOB RR38, breath sounds bilat crackles. Dr. Fox came to bed side to help assess pt status , requested to see if we can transition pt to HFNC. Dr. Armendariz disagreed with NIv and took pt off NIV and placed pt on oxymask 6L spo2 85%. I obtained the HFNC from the second floor near the ICU to place the pt on 50L 35%fio2, spo2 89-91% at this time, pt received 5mg of Xopenex through device
[2023-09-05 13:15] LABS: ABG Base Excess 14.5 mmol/L; ABG HCO3 42 mmol/L (22-26); ABG pCO2 69 mmHg (32-45); ABG pH 7.39 (7.35-7.45); ABG pO2 68 mmHg (83-108)
--- NOTE | 2023-09-05 13:15 | P.PNIM_ITS ---
Subjective Subjective Date of Service: 09/05/23 Interval History: acute hypoxemic respiratory failure ,afib rvr Review of Systems sob seems similar no fever talks in short sentences denies any chest pain Physical Exam 2 Vital Signs: Vital Signs: Last Vital Signs Temp 98.7 F 09/05/23 07:41 Pulse 123 H 09/05/23 12:17 Resp 32 H 09/05/23 12:17 BP 164/78 H 09/05/23 07:41 Pulse Ox 100 09/05/23 07:41 O2 Del Method Nasal Cannula 09/05/23 07:41 O2 Flow Rate 5 09/05/23 07:41 Oxygen Flow Rate 3 09/02/23 22:52 BMI result Body Mass Index 20.8 Appearance: Alert.? Oriented X3.? not in distress.? cvs: rrr, [id number] , no murmur res: diminished bilateral, few wheezes abd: no rebound or guarding ,nt, bs present. ext pulses present , no cyanosis. neuro: axo3 , nonfocal. Objective Data Active Medications Acetaminophen (Acetaminophen 325 Mg Tablet) 975 mg PO Q6H PRN PRN Reason: Pain, Mild (Pain Scale 1-3) Last Admin: 09/03/23 19:56 Dose: 975 mg Documented By: JINA Acetazolamide (Acetazolamide Sodium 500 Mg Vial) 375 mg IVPUSH BID [facility] Last Admin: 09/05/23 11:48 Dose: 375 mg Documented By: STEPHENIE Albuterol/Ipratropium (Albuterol/Iprat 2.5/0.5mg 3 Ml Ampul.Neb) 3 ml INHALE RQ4H WHILE AWAKE PRN PRN Reason: sob Last Admin: 09/05/23 04:53 Dose: 3 ml Documented By: MER Apixaban (Apixaban 5 Mg Tablet) 5 mg PO BID [facility] Last Admin: 09/05/23 08:53 Dose: 5 mg Documented By: STEPHENIE Atorvastatin Calcium (Atorvastatin Calcium 20 Mg Tablet) 20 mg PO BEDTIME [facility] Last Admin: 09/04/23 20:11 Dose: 20 mg Documented By: CORDELL Bisacodyl (Bisacodyl 10 Mg Supp.Rect) 10 mg [place] Q3D PRN PRN Reason: Constipation Diltiazem HCl (Diltiazem Hcl 30 Mg Tablet) 30 mg PO QID [facility]; Protocol Fluticasone/Vilanterol (Fluticasone/Vilanterol 100/25 Blst.W.Dev) 1 puff INHALE DAILY [facility] Last Admin: 09/05/23 08:55 Dose: 1 puff Documented By: ANIA Folic Acid (Folic Acid 1 Mg Tablet) 1 mg PO DAILY [facility] Last Admin: 09/05/23 08:53 Dose: 1 mg Documented By: STEPHENIE Furosemide (Furosemide 40 Mg/4 Ml Vial) 40 mg IVPUSH BID@0900,1800 [facility]; Protocol Gabapentin (Gabapentin 300 Mg Capsule) 600 mg PO TID [facility] Last Admin: 09/04/23 17:25 Dose: 600 mg Documented By: STEPHENIE Guaifenesin (Guaifenesin 100 Mg/5 Ml Liquid) 10 ml PO Q8H PRN PRN Reason: Cough Last Admin: 09/04/23 05:30 Dose: 10 ml Documented By: JINA Hydroxyzine HCl (Hydroxyzine Hcl 25 Mg Tablet) 25 mg PO Q6H PRN PRN Reason: anxiety/restlessness Last Admin: 09/04/23 20:11 Dose: 25 mg Documented By: CORDELL Ceftriaxone Sodium 1 gm/ (Sodium Chloride) 50 mls @ 100 mls/hr IV Q24H [facility] Last Infusion: 09/04/23 22:31 Dose: Infused Documented By: CORDELL Azithromycin 500 mg/ Sodium (Chloride) 250 mls @ 125 mls/hr IV Q24H [facility] Last Infusion: 09/05/23 12:01 Dose: Infused Documented By: STEPHENIE Lidocaine (Lidocaine 4 % Patch Adh..Patch) 1 patch TRANSDERMA DAILY [facility]; Protocol Last Admin: 09/05/23 09:14 Dose: Not Given Documented By: STEPHENIE Non-Admin Reason: Patient Refused Melatonin (Melatonin 3 Mg Tablet) 3 mg PO BEDTIME [facility] Last Admin: 09/04/23 20:11 Dose: 3 mg Documented By: CORDELL Methylprednisolone Sodium Succinate (Methylprednisolone Sod Succ 40 Mg/Ml Vial) 40 mg IVPUSH Q12H [facility] Last Admin: 09/05/23 08:54 Dose: 40 mg Documented By: STEPHENIE Metoprolol Tartrate (Metoprolol Tartrate 25 Mg Tablet) 25 mg PO QID [facility]; Protocol Last Admin: 09/05/23 08:53 Dose: 25 mg Documented By: STEPHENIE Multivitamins/Vitamin C (Multivitamin Tablet) 1 tab PO DAILY [facility] Last Admin: 09/05/23 08:52 Dose: 1 tab Documented By: STEPHENIE Nicotine (Nicotine 21 Mg Patch.Td24) 21 mg TRANSDERMA DAILY [facility] Last Admin: 09/05/23 08:53 Dose: 21 mg Documented By: STEPHENIE Omeprazole (Omeprazole 20 Mg Capsule.Dr) 20 mg PO BID@0630,1630 [facility] Last Admin: 09/05/23 06:09 Dose: 20 mg Documented By: LANI Senna/Docusate Sodium (Sennosides/Docusate Sodium Tablet) 2 tab PO BEDTIME [facility] Last Admin: 09/04/23 20:11 Dose: 2 tab Documented By: CORDELL Sertraline HCl (Sertraline Hcl 25 Mg Tablet) 25 mg PO DAILY [facility] Last Admin: 09/05/23 08:52 Dose: 25 mg Documented By: STEPHENIE Sodium Chloride (0.9 % Sodium Chloride Flush 3 Ml Syringe) 3 ml IVFLUSH QSHIFT [facility] Last Admin: 09/05/23 08:54 Dose: 3 ml Documented By: STEPHENIE Thiamine HCl (Thiamine Hcl 100 Mg Tablet) 100 mg PO DAILY [facility] Last Admin: 09/05/23 08:52 Dose: 100 mg Documented By: STEPHENIE Tiotropium [place] (Tiotropium [place] 2.5 Mcg Inhaler) 2 puff INHALE DAILY [facility] Last Admin: 09/05/23 08:55 Dose: 2 puff Documented By: ANIA Vitamin D (Cholecalciferol (Vitamin D3) 25 Mcg Tablet) 25 mcg PO DAILY [facility] Last Admin: 09/05/23 08:53 Dose: 25 mcg Documented By: STEPHENIE Labs 09/04/23 07:10 09/05/23 09:11 Labs: Laboratory Results - last 24 hr 09/04/23 09/04/23 09/05/23 07:10 17:19 09:11 Hold Purple Top SEE NOTE VBG pH 7.48 H VBG pCO2 50 VBG pO2 80 VBG HCO3 38 H VBG O2 Saturation 97.0 VBG Base Excess 13.0 Anion Gap 13 Estim Creat Clear Calc 78.5 Estimated GFR > 60 Random Glucose 156 H Calcium 9.9 Procalcitonin 0.02 09/05/23 09:23 Hold Purple Top VBG pH 7.43 VBG pCO2 69 VBG pO2 96 VBG HCO3 46 H VBG O2 Saturation 100.0 VBG Base Excess 18.1 Anion Gap Estim Creat Clear Calc Estimated GFR Random Glucose Calcium Procalcitonin Microbiology Microbiology Results: Microbiology 09/02/23 23:16 Blood Culture - Preliminary Blood - Venous No growth after 48 hours. 09/02/23 23:16 Blood Culture - Preliminary Blood - Venous No growth after 48 hours. Assessment and Plan (1) Bilateral pleural effusion: Status: Acute (2) Decubital ulcer: Status: Acute (3) Atrial fibrillation with rapid ventricular response: Status: Acute Plan 62 y/o f copd, chronic hypoxic and hypercapnic respiratory failure on 2 L home O2, unspecified atrial fibrillation on apixaban, hfpef pulm htn, presented with sob severe sepsis and acute on chronic hypoxic respiratory failure due to copd with acute decompensation due to recent covid 19 infection complicated by superimposed bacterial pneumonia,also HFpEf: patient sob seems similar to yesterday wbc improving, ct chest: pneumonia vs chf blood culture neg@24hrs abg noted -7.39// today , cxr -seems similar to yesterday-official reading pending in addition moniter i/o closely continue rocephin, azithro(09/03/23),steroids, nebs,given extra nebs, iv lasix , dimox also added ( due to elevated bicarb), also will try high flow ,given 1 dose of fentanyl 50 mcg for disconfort and anxiety. persistent afib with rvr: hr was 120-130,given iv cardizem 5 mg -hr is 100-110's range improivng tele monitor cardio eval noted -continue eliquis d/w cardiology -added po cardizem ,metoprolol,stopped digoxin. chronic diastolic/ right sided chf excerebation, pulm htn sob somewhat improivng i/o rafa ramos for fluid maangement given iv fluids for sepsis, continue iv lasix moderate protein calorie malnutrition nutrition eval decubitus ulcer wound care seen pat: 1. Sacrum - Off Load Pressure - Cleanse with normal saline and pat dry. ?Apply Antifungal powder to denis-wound, lightly pack sacrum with Durafiber AG cover with sacral foam dressing. ?Change Daily. Follow provider orders for topical antifungal treatment. 2. Turn and Reposition every 2 hours and as needed for patient comfort consider uses of wedges and pillows. 3. Off Load all bony prominences with use of pillows and or heels protecting boots. 4. Monitor for incontinence and moisture control - Purewick in place with mesh underwear - do not use towel between legs as this traps moisture against the patients skin. 5. Provide adequate and supplemental nutrition - consider nutrition consult. 6. Order low air loss mattress. dvt prophylaxis - eliquis full code ongoing hospitlisation need:pneumonia /chf -need iv antibiotics and lasix , i/o ,weight ,bnp monitering - hypoxia and sob, due to age and fraility at risk for further decopmensation,expert consultation Quality Stroke Does the patient have a stroke diagnosis?: No VTE Prior VTE?: No VTE Risk Level:: Medical - moderate - high VTE Device Contraindication: Treatment Not Indicated VTE Drug Contraindication: N/A - Med Ordered
[2023-09-05] MEDS: dilTIAZem HCL 30 MG TABLET PO ×3 (13:21→20:09)
--- NOTE | 2023-09-05 15:42 | P.PNPL_ITS ---
Subjective Subjective Date of Service: 09/05/23 Interval history: Slowly worsening hypoxia and grossly positive volume balance. Objective Data Labs 09/04/23 07:10 09/05/23 09:11 Labs: Laboratory Results - last 24 hr 09/04/23 09/05/23 09/05/23 17:19 09:11 09:23 Hold Purple Top SEE NOTE O2 Saturation ABG pH at Pt Temp ABG pCO2 at Pt Temp ABG pO2 at Pt Temp ABG HCO3 ABG Base Excess (Actual) VBG pH 7.48 H 7.43 VBG pCO2 50 69 VBG pO2 80 96 VBG HCO3 38 H 46 H VBG O2 Saturation 97.0 100.0 VBG Base Excess 13.0 18.1 Sodium 138 Potassium 3.6 Chloride 92 L Carbon Dioxide 37 H Anion Gap 13 BUN 16 Creatinine 0.52 Estim Creat Clear Calc 78.5 Estimated GFR > 60 Random Glucose 156 H Calcium 9.9 09/05/23 13:09 Hold Purple Top O2 Saturation 90.0 ABG pH at Pt Temp 7.39 ABG pCO2 at Pt Temp 69 H* ABG pO2 at Pt Temp 68 L ABG HCO3 42 H ABG Base Excess (Actual) 14.5 VBG pH VBG pCO2 VBG pO2 VBG HCO3 VBG O2 Saturation VBG Base Excess Sodium Potassium Chloride Carbon Dioxide Anion Gap BUN Creatinine Estim Creat Clear Calc Estimated GFR Random Glucose Calcium Microbiology Microbiology Results: Microbiology 09/02/23 23:16 Blood - Venous Blood Culture - Preliminary No growth after 48 hours. 09/02/23 23:16 Blood - Venous Blood Culture - Preliminary No growth after 48 hours. Review of Systems Cardiovascular: Denies chest pain and Reports dyspnea Respiratory: Denies cough, Denies excessive phlegm production and Reports dyspnea Physical Exam 2 Vital Signs: Vital Signs: Last Vital Signs Temp 98.0 F 09/05/23 15:26 Pulse 123 H 09/05/23 15:26 Resp 20 09/05/23 15:26 BP 151/85 H 09/05/23 15:26 Pulse Ox 91 L 09/05/23 15:26 O2 Del Method High Flow Nasal C annula 09/05/23 15:26 O2 Flow Rate 55 09/05/23 15:26 FiO2 35 09/05/23 15:26 Oxygen Flow Rate 3 09/02/23 22:52 BMI result Body Mass Index 20.8 Const: General: no acute distress, alert, awake and other (anxious) Eyes: Sclerae: sclerae normal EOM: EOMs intact bilaterally Neck: Neck: Yes no lymphadenopathy, Yes trachea midline and Yes supple Resp: Effort & Inspection: normal respiratory effort and no respiratory distress Auscultation: crackles bilateral Cardio: Rate: tachycardic Rhythm: regular rhythm Heart sounds: no gallops, no murmurs and no rubs GI: Palpation (GI): Soft to palpation and Other GI palpation findings present ( Nontender) Auscultation: normal bowel sounds Extrem: General: Yes no pedal edema, No clubbing and No cyanosis Procedures Date of Service Date of Service: 09/05/23 Assessment and Plan Assessment and plan (1) Chronic a-fib: Status: Acute (2) Acute respiratory failure with hypoxia: Status: Acute (3) COPD (chronic obstructive pulmonary disease): Status: Acute Plan Impression: 62 year old lady admitted with worsening dyspneainitially treated for COPD exacerbation / CAP, now with significant AFib/CHF component, grossly volume up since admission, with worsening hypoxemia requiring high flow nasal canula. Recommendations: Agree with bronchodilators. Taper systemic glucocorticoids. Rate control AFib to reduce oxygen demand. Diurese with goal of net negative 1- 2L/day Time Spent With Patient Time: Total time managing care of this patient today ____ minutes. Progress Note: Quality Stroke Does the patient have a stroke diagnosis?: No
[2023-09-05] MEDS: hydrOXYzine HCL 25 MG TABLET PO (16:00)
[2023-09-05] MEDS: Furosemide 200 MG in 0.9 % Sodium Chloride 80 ML IVCONT (17:10)
[2023-09-05] MEDS: LORazepam 0.5 MG TABLET PO (17:10)
[2023-09-05] MEDS: Sennosides/Docusate Sodium TABLET 2 TAB PO (20:08)
[2023-09-05] MEDS: Melatonin 3 MG TABLET PO (20:08)
[2023-09-05] MEDS: Atorvastatin Calcium 20 MG TABLET PO (20:09)
[2023-09-05] MEDS: cefTRIAXone sodium 1 GM in 0.9 % Sodium Chloride 50 ML IV (20:52)
[2023-09-05] MEDS: Furosemide 100 MG/10 ML VIAL 60 MG IVPUSH (20:52)
[2023-09-05 21:36] LABS: ABG Base Excess 17.8 mmol/L; ABG HCO3 45 mmol/L (22-26); ABG pCO2 67 mmHg (32-45); ABG pH 7.43 (7.35-7.45); ABG pO2 79 mmHg (83-108)
[2023-09-05 21:37] LABS: ABG Refer to POC result
[2023-09-06] VITALS (17 sets, daily range): BP systolic 132–199; BP diastolic 58–86; PULSE 72–104; RESP 16–96; TEMP 36–36.6; O2SAT 18–96; BMI 20.8
[2023-09-06 01:29] LABS: Appearance Urine Clear; Color Urine Yellow; Glucose Urine UA Negative (Negative); Leukocyte Esterase Urine Trace (Negative); Nitrite Urine Negative (Negative); UMIC TRIGGER UACC YES; Urine Blood Trace (Negative); Urine Ketones Negative (Negative); Urine Protein Negative (Neg-Trace)
[2023-09-06 01:34] LABS: Bacteria Urine None Seen (None Seen); Hyaline Casts Urine 0-2 /LPF (0-2); Squamous Epithelial Cell Urine 0-2 /HPF (0-2); WBC Urine 0-5 /HPF (0-5)
--- NOTE | 2023-09-06 04:54 | PC.NURSE ---
Care assumed 19:15 (09/05). Pt observed with increased WOB and use of accessory muscles on assuming care. Spo2 90-92% per report goal (hx of copd on 2L nc baseline per chart review). Lungs auscultated with course crackles and expiratory rhonchi. Pt with +weak non-productive cough. Attempted to boost patient (not flat) in bed with nursing aid to assist with pt's respiratory status. Pt desatted with boosting to 66% spo2 on HFNC 50L/40%. Respiratory therapy notified and to bedside as well as Covering Dr. Venegas. Pt recovered slowly but spontaneously to 92%. BLE cold to touch with weakly palpable pulses. Axillary temp 96.6 (rectal deferred due to respiratory activity intolerance). Bairhugger ordered and placed though pt frequently removes it from her upper body despite education. Repeat ABG ordered (critical results reported to MD), 1x 60mg IVP lasix ordered in addition to lasix gtt that has been infusing at 5mg/hr as ordered. F/c placed during day shift had 400ml cyu prior to IVP lasix and 525ml on reassessment shortly after IVP lasix (see I+Os). Pt also hypertensive with BP 170/66 on assuming care. HR ranging 80's to 190's though pt quite tremulous so accuracy unclear. Pt denies chest pain or palpitations. MD notified and pt given scheduled po metoprolol and po cardizem per written order with +effect HR down to 80-90's. 1X IV metoprolol later ordered with verbal instructions from MD to recheck BP roughly thirty minutes after IV lasix administration prior to giving; SBP 140's on reassess. MD notified with written order to hold IV metoprolol. Pt's breathing has improved since IVP lasix and is even and unlabored without distress. Pt denies sob. UOP adequate with lasix. Pt better tolerating repositioning for unstageable to sacrum though still remains resistant to it. Bed alarm on and high falls safety measures in place.
[2023-09-06] MEDS: Omeprazole 20 MG CAPSULE.DR PO ×2 (06:12→17:40)
--- NOTE | 2023-09-06 07:00 | CA_ITS ---
Transthoracic Echocardiogram Patient (Last, First, Middle): Chelsy Wells, Gender: Female Date of : 1960 Age: 62 Procedure Date: 09/06/2023 Procedure Type: Transthoracic Echocardiogram [place] [facility] [place]: 152.4 cm Weight: 48.08 kg BSA: 1.43 m2 Heart Rate: 96 bpm BP: 170 / 79 mmHg Senior Quality Assurance Specialist: DELBERT Steele MD: Ned Fox MD Astronautical Engineer: Baron Olmos MD Symptoms: Chf Study Quality: Adequate/w Contrast ECG Rhythm: Atrial Fibrillation Conclusions: - 1. Low normal LV ejection fraction 50-55% 2. Severely dilated left atrium 3. Normal size RV with moderately reduced RV systolic function 4. Mild aortic and moderate mitral regurgitation 5. Moderately elevated right ventricular systolic pressure mildly elevated right atrial pressures 6. No gross pericardial effusion Findings Procedure Information Contrast agent, definity, is being given per protocol without apparent complications. Left Ventricle Normal left ventricular cavity size. There is normal left ventricular wall thickness. The left ventricular systolic function is low normal. The visually estimated ejection fraction is between 50-55%. There is mild septal asymmetric hypertrophy. Right Ventricle Normal right ventricular cavity size. There is mild to moderately decreased right ventricular systolic function. Atria The left atrium is severely dilated. There is no evidence of interatrial shunt. The right atrium is moderately dilated. Aortic Valve The aortic valve was not well visualized. There is mild calcification of the aortic valve. There is no aortic valve stenosis. There is mild aortic valve regurgitation. Mitral Valve There is mild anterior and moderate posterior mitral leaflet thickening. There is moderate mitral annular calcification. There is moderate mitral valve regurgitation. There is no mitral valve stenosis. Pulmonic Valve The pulmonic valve is likely normal. There is trace to mild pulmonic valve regurgitation. Tricuspid Valve Normal tricuspid valve structure. There is mild tricuspid valve regurgitation. Mildly elevated right atrial pressure. Moderate pulmonary hypertension is present. Great Vessels All visible segments of the aorta are normal in size. The pulmonary artery was not well visualized. There is no dilatation of the ascending aorta. Venous The inferior vena cava is mildly dilated and collapses less than 50% with inspiration. Pericardium/Pleural There is no evidence of pericardial effusion. Prior Study Comparison Changes noted compared to prior study dated: 08/13/2023. LV systolic function is marginally reduced Measurements 2D Linear Measurements IVSd: 1.38 0.6-0.9/0.6-1.0 cm LVIDd: 4.37 3.9-5.3/4.2-5.9 cm LVIDd Index: 3.06 2.4-3.2/2.2-3.1 cm/m2 LVIDs: 3.58 2.0-3.6 cm LVPWd: 1.04 0.7-1.1 cm LA Diam: 4.60 2.7-3.8/3.0-4.0 cm LAIDs Index: 3.22 1.5-2.3 cm/m2 LV Mass: 238.78 67-162/88-224 g LV Mass Index: 166.98 43-95/49-115 g/m2 LVOT Diam: 1.90 3.0+(-)1.3 cm 2D Systolic Function EF 4C: 45.00 >55% EF 2C: 58.70 >55% EF BiP: 52.90 >55% Mitral Valve MV Pk E: 1.69 MV Decel Time: 176.00 E'Lateral: 8.27 E'Medial: 6.85 E/E' Med: 24.70 E/E' Lat: 20.40 PHT: 52.00 MVA PHT: 4.23 Decel [place]: 9.57 MR Vol - PW Dopp: 26.40 MR VTI: 1.76 MR ERO: 15.00 MR Alias Luis: 0.39 MR RAD: 0.60 Aortic Valve AoV Pk Luis: 1.56 AoV Mn Luis: 0.95 AoV VTI: 0.24 AoV Pk Grad: 10.00 Aov Mn Grad: 5.00 ELIZA Cont.VTI: 1.97 AI Pk Luis: 4.73 AI [place]: 3.00 LVOT LVOT Pk Luis: 1.00 LVOT Mn Luis: 0.59 LVOT VTI: 0.17 LVOT Pk Grad: 4.00 LVOT Mn Grad: 2.00 LVOT Diam: 1.90 LVOT Area: 2.84 Diastolic Function MV Pk E: 1.69 E'Medial: 6.85 E/E' Med: 24.70 E' Laterial: 8.27 E/E' Lat: 20.40 Right Ventricle TAPSE (mm): 14.30 TVS' Luis: 5.00 Tricuspid Valve TR Pk Luis: 3.23 TR Pk Grad: 50.00 RA Press: 8.00 RVSP: 58.00 Great Vessels Aorta Sinus of Valsalva: 3.10 2.0-3.5 cm Ao Asc: 2.80 2.1-3.4 cm Pulmonary Valve PV Pk Luis: 0.85 Peak PV Grad: 3.00 Updated in Other Vendor System with Status of Final Baron Olmos MD electronically signed on 09/06/2023 3:30:49 PM with status of Final
[2023-09-06] MEDS: Fluticasone/Vilanterol 100/25 BLST.W.DEV 1 PUFF INHALE (07:41)
[2023-09-06] MEDS: methylPREDNISolone Sod Succ 40 MG/ML VIAL IVPUSH ×2 (08:28→21:04)
[2023-09-06] MEDS: acetaZOLAMIDE sodium 500 MG VIAL 375 MG IVPUSH ×2 (08:28→21:04)
[2023-09-06] MEDS: Thiamine HCL 100 MG TABLET PO (08:29)
[2023-09-06] MEDS: Cholecalciferol (Vitamin D3) 25 MCG TABLET PO (08:29)
[2023-09-06] MEDS: Multivitamin TABLET 1 TAB PO (08:29)
[2023-09-06] MEDS: dilTIAZem HCL 30 MG TABLET PO ×4 (08:29→21:05)
[2023-09-06] MEDS: Apixaban 5 MG TABLET PO ×2 (08:29→21:05)
[2023-09-06] MEDS: Sertraline HCL 25 MG TABLET PO (08:30)
[2023-09-06] MEDS: Nicotine 21 MG PATCH.TD24 TRANSDERMA (08:30)
[2023-09-06] MEDS: 0.9 % Sodium Chloride Flush 3 ML SYRINGE IVFLUSH ×2 (08:30→14:41)
[2023-09-06] MEDS: Metoprolol Tartrate 25 MG TABLET PO (08:30)
[2023-09-06] MEDS: Azithromycin 500 MG in 0.9 % Sodium Chloride 250 ML 125 MG IV (08:30)
[2023-09-06] MEDS: Folic Acid 1 MG TABLET PO (08:30)
[2023-09-06 09:03] LABS: Venous Blood Gas Refer to POC result
[2023-09-06 09:04] LABS: VBG Base Excess 19.8 mmol/L; VBG HCO3 44 mmol/L (22-26); VBG pCO2 48 mmHg; VBG pH 7.57 (7.32-7.43); VBG pO2 109 mmHg
[2023-09-06 09:20] LABS: Anion Gap 15 (12-20); Blood Urea Nitrogen 17 mg/dL (9-16); Calcium 10.4 mg/dL (8.4-10.2); Carbon Dioxide 38 mmol/L (22-29); Chloride 90 mmol/L (96-108); Creatinine Clr Calc Pharmacy 74.2; Estimated Glomerular Filt Rate > 60; Glucose Random 171 mg/dL (60-115); Potassium 2.8 mmol/L (3.3-5.1); Sodium 140 mmol/L (135-145)
[2023-09-06 10:39] LABS: Magnesium 1.9 mg/dL (1.6-2.6)
[2023-09-06] MEDS: Potassium Chloride Packet 20 MEQ PACKET 40 MEQ PO ×2 (10:46→12:55)
--- NOTE | 2023-09-06 10:51 | PM.EVENT ---
Event Note Date of Service: 09/06/23 Event Note: ICU consulted for persistent, intermittent dyspnea; upon my evaluation, patient resting comfortably on HFNC, without signs of respiratory distress, able to speak in complete sentences; lung sounds equal bilaterally, without rales, rhonchi, or wheezing; agree with hospitalist plan to continue diuresis, and duonebs, steroids, and anitbiotics for CHF and COPD exacerbation; patient does not necessitate BiPAP nor ICU at this time
--- NOTE | 2023-09-06 10:52 | PM.PNCARD ---
Subjective Subjective Date of Service: 09/06/23 Principal diagnosis: Respiratory failure. Interval history: Patient overnight has been diuresed and has diuresed about 3.3 L on IV Lasix drip. Currently using high flow oxygen. Overall appears comfortable the patient says she still short of breath. Remains in atrial fibrillation with controlled ventricular response and had some overnight slow heart rates. Review of Systems Constitutional: Reports lethargy and Reports weakness Cardiovascular: Reports no additional cardiovascular complaints and Reports dyspnea Respiratory: Reports dyspnea and Reports wheezing Reports weakness Allergic/Immunologic: Reports wheezing Physical Exam Vital Signs: Last Vital Signs Temp 97.9 F 09/06/23 07:55 Pulse 104 H 09/06/23 07:55 Resp 22 H 09/06/23 07:55 BP 170/78 H 09/06/23 08:12 Pulse Ox 92 09/06/23 07:55 O2 Del Method High Flow Nasal Cannula 09/06/23 07:55 O2 Flow Rate 55 09/06/23 07:55 FiO2 35 09/06/23 07:55 Oxygen Flow Rate 3 09/02/23 22:52 BMI result Body Mass Index 20.8 Const General: cooperative, alert, awake, in distress mild and respiratory and ill appearing Nutritional Appearance: cachectic and malnourished Orientation/consciousness: patient oriented x3 Neck Neck: Yes trachea midline, Yes supple and Yes no JVD Resp Effort & Inspection: decreased respiratory effort Auscultation: breath sounds absent bilateral (bases) Cardio Rhythm: abnormal rhythm irregularly irregular Heart sounds: S1 normal heart sound present, S2 normal heart sound present, no click, no gallops and no murmurs GI Auscultation: normal bowel sounds Skin General skin exam: ecchymosis Neuro General: patient oriented x3 and no focal motor deficits Extrem General: Yes no clubbing, cyanosis or edema Objective Labs and Meds 09/04/23 07:10 09/06/23 08:53 Lab results: Laboratory Results - last 24 hr 09/05/23 09/05/23 09/06/23 13:09 21:29 00:50 O2 Saturation 90.0 95.0 ABG pH at Pt Temp 7.39 7.43 ABG pCO2 at Pt Temp 69 H* 67 H* ABG pO2 at Pt Temp 68 L 79 L ABG HCO3 42 H 45 H ABG Base Excess (Actual) 14.5 17.8 VBG pH VBG pCO2 VBG pO2 VBG HCO3 VBG O2 Saturation VBG Base Excess Sodium Potassium Chloride Carbon Dioxide Anion Gap BUN Creatinine Estim Creat Clear Calc Estimated GFR Random Glucose Calcium Magnesium Urine Color Yellow Urine Appearance Clear Urine pH 8.0 Ur Specific [place] 1.010 Urine Protein Negative Urine Glucose (UA) Negative Urine Ketones Negative Urine Blood Trace H Urine Nitrite Negative Ur Leukocyte Esterase Trace H Urine RBC 6-10 H Urine WBC 0-5 Ur Squamous Epith Cells 0-2 Urine Bacteria None Seen Hyaline Casts 0-2 09/06/23 09/06/23 08:53 08:57 O2 Saturation ABG pH at Pt Temp ABG pCO2 at Pt Temp ABG pO2 at Pt Temp ABG HCO3 ABG Base Excess (Actual) VBG pH 7.57 H VBG pCO2 48 VBG pO2 109 VBG HCO3 44 H VBG O2 Saturation 100.0 VBG Base Excess 19.8 Sodium 140 Potassium 2.8 L D Chloride 90 L Carbon Dioxide 38 H Anion Gap 15 BUN 17 H Creatinine 0.55 Estim Creat Clear Calc 74.2 Estimated GFR > 60 Random Glucose 171 H Calcium 10.4 H Magnesium 1.9 Urine Color Urine Appearance Urine pH Ur Specific [place] Urine Protein Urine Glucose (UA) Urine Ketones Urine Blood Urine Nitrite Ur Leukocyte Esterase Urine RBC Urine WBC Ur Squamous Epith Cells Urine Bacteria Hyaline Casts Imaging Radiologist's impression: Impressions Chest X-Ray 09/05/23 11:50 IMPRESSION: Worsening pulmonary edema. Persistent right greater than left moderate pleural effusion. Progress Note: A&P Assessment and plan (1) Acute respiratory failure with hypoxia: Status: Acute Assessment and Plan: Acute respiratory failure with marked cachexia and this middle-aged female admitted with pneumonia. She also has bilateral pleural effusion. She responded diuretic regimen with improved respiratory status has had good negative balance. However continues to have bronchospastic airway disease and reduce respiratory effort. Is possible that her hypoxemia in addition to her congestive heart failure although clinically she does appear to be in significant heart failure at this point time is related to poor respiratory effort and reduced pulmonary capacity given bilateral pleural effusion and reduce muscle effort as well as weakness and underlying COPD. Continue bronchodilators. Continue IV Lasix. Continue oxygen supplementation. Encourage increased respiratory effort with incentive spirometer out of bed to chair. Overall prognosis is guarded. Rate is adequately control and may be over corrected. Would consider reducing metoprolol to 12.5 mg q.6 hours. Continue Cardizem therapy, she has responded to that therapy well. Continue anticoagulation. Repeat limited echocardiogram. Will follow with you Time Spent With Patient Time: Total time managing care of this patient today ____ minutes. Progress Note: Quality Stroke Does the patient have a stroke diagnosis?: No Procedures Date of Service Date of Service: 09/06/23
[2023-09-06] MEDS: Magnesium Sulfate/D5W 1 GM/100 ML PIGGYBACK IV (12:55)
[2023-09-06] MEDS: Metoprolol Tartrate 12.5 MG HALFTAB PO ×2 (12:55→17:40)
[2023-09-06 13:09] LABS: B Type Natriuretic Peptide 2785 pg/mL (<100)
--- NOTE | 2023-09-06 13:16 | MHC.CLN ---
F/U DIET=REGULAR. INCREASED NUTRITION NEEDS DUE TO UNSTAGEABLE PRESSURE INJURY TO SACRUM. ENSURE MAX PROTEIN TID TO PROMOTE WOUND HEALING. PROVIDES 450 KCALS, 90 G PROTEIN. PO INTAKE POOR. WEIGHT CHANGE ANTICIPATED WITH IV DIURESIS. FOLLOW FOR INTAKE AND WOUND HEALING.
--- NOTE | 2023-09-06 13:49 | MHC.CM.PN ---
Pt not yet medically cleared for DC, plan is to return to [facility] for STR.
[2023-09-06] MEDS: Piperacillin Sodium/Tazobactam 3.375 GM in 0.9 % Sodium Chloride 50 ML IV ×2 (14:36→21:05)
--- NOTE | 2023-09-06 14:40 | P.PNIM_ITS ---
Subjective Subjective Date of Service: 09/06/23 Interval History: Acute hypoxemic respiratory failure Review of Systems Shortness of breath somewhat improving, seems slightly more comfortable Mild cough No fever or chills Physical Exam 2 Vital Signs: Vital Signs: Last Vital Signs Temp 97.8 F 09/06/23 10:56 Pulse 90 09/06/23 10:56 Resp 18 09/06/23 11:13 BP 147/67 H 09/06/23 10:56 Pulse Ox 93 09/06/23 10:56 O2 Del Method High Flow Nasal C annula 09/06/23 10:56 O2 Flow Rate 55 09/06/23 10:56 FiO2 35 09/06/23 10:56 Oxygen Flow Rate 3 09/02/23 22:52 BMI result Body Mass Index 20.8 Appearance: Alert.? Oriented X3.? not in distress.? cvs: rrr, [id number] , no murmur res: air entry diminished bilateral, minimum wheezin abd: no rebound or guarding ,nt, bs present. ext pulses present , no cyanosis. neuro: axo3 , nonfocal. Objective Data Active Medications Acetaminophen (Acetaminophen 325 Mg Tablet) 975 mg PO Q6H PRN PRN Reason: Pain, Mild (Pain Scale 1-3) Last Admin: 09/03/23 19:56 Dose: 975 mg Documented By: JINA Acetazolamide (Acetazolamide Sodium 500 Mg Vial) 375 mg IVPUSH BID [facility] Last Admin: 09/06/23 08:28 Dose: 375 mg Documented By: MERVIN Albuterol/Ipratropium (Albuterol/Iprat 2.5/0.5mg 3 Ml Ampul.Neb) 3 ml INHALE RQ4H WHILE AWAKE PRN PRN Reason: sob Last Admin: 09/05/23 04:53 Dose: 3 ml Documented By: MER Apixaban (Apixaban 5 Mg Tablet) 5 mg PO BID [facility] Last Admin: 09/06/23 08:29 Dose: 5 mg Documented By: MERVIN Atorvastatin Calcium (Atorvastatin Calcium 20 Mg Tablet) 20 mg PO BEDTIME [facility] Last Admin: 09/05/23 20:09 Dose: 20 mg Documented By: VIBHA Bisacodyl (Bisacodyl 10 Mg Supp.Rect) 10 mg HI Q3D PRN PRN Reason: Constipation Diltiazem HCl (Diltiazem Hcl 30 Mg Tablet) 30 mg PO QID [facility]; Protocol Last Admin: 09/06/23 12:55 Dose: 30 mg Documented By: MERVIN Fluticasone/Vilanterol (Fluticasone/Vilanterol 100/25 Blst.W.Dev) 1 puff INHALE DAILY [facility] Last Admin: 09/06/23 07:41 Dose: 1 puff Documented By: GEOVANNA Folic Acid (Folic Acid 1 Mg Tablet) 1 mg PO DAILY [facility] Last Admin: 09/06/23 08:30 Dose: 1 mg Documented By: MERVIN Gabapentin (Gabapentin 300 Mg Capsule) 600 mg PO TID [facility] Last Admin: 09/04/23 17:25 Dose: 600 mg Documented By: STEPHENIE Guaifenesin (Guaifenesin 100 Mg/5 Ml Liquid) 10 ml PO Q8H PRN PRN Reason: Cough Last Admin: 09/04/23 05:30 Dose: 10 ml Documented By: JINA Hydroxyzine HCl (Hydroxyzine Hcl 25 Mg Tablet) 25 mg PO Q6H PRN PRN Reason: anxiety/restlessness Last Admin: 09/05/23 16:00 Dose: 25 mg Documented By: STEPHNEIE Furosemide 200 mg/ Sodium (Chloride) 100 mls @ 2.5 mls/hr IVCONT .Q24H [facility] Last Admin: 09/05/23 17:10 Dose: 5 mg/hr, 2.5 mls/hr Documented By: STEPHENIE Doxycycline Hyclate 100 mg/ (Sodium Chloride) 250 mls @ 166.67 mls/hr IV BID [facility] Piperacillin Sod/Tazobactam (Sod 3.375 gm/ Sodium Chloride) 50 mls @ 100 mls/hr IV Q6H [facility] Lidocaine (Lidocaine 4 % Patch Adh..Patch) 1 patch TRANSDERMA DAILY [facility]; Protocol Last Admin: 09/06/23 08:47 Dose: Not Given Documented By: MERVIN Non-Admin Reason: Patient Refused Melatonin (Melatonin 3 Mg Tablet) 3 mg PO BEDTIME [facility] Last Admin: 09/05/23 20:08 Dose: 3 mg Documented By: VIBHA Methylprednisolone Sodium Succinate (Methylprednisolone Sod Succ 40 Mg/Ml Vial) 40 mg IVPUSH Q12H [facility] Last Admin: 09/06/23 08:28 Dose: 40 mg Documented By: MERVIN Metoprolol Tartrate (Metoprolol Tartrate 12.5 Mg Halftab) 12.5 mg PO Q6H [facility]; Protocol Last Admin: 09/06/23 12:55 Dose: 12.5 mg Documented By: MERVIN Multivitamins/Vitamin C (Multivitamin Tablet) 1 tab PO DAILY [facility] Last Admin: 09/06/23 08:29 Dose: 1 tab Documented By: MERVIN Nicotine (Nicotine 21 Mg Patch.Td24) 21 mg TRANSDERMA DAILY [facility] Last Admin: 09/06/23 08:30 Dose: 21 mg Documented By: MERVIN Omeprazole (Omeprazole 20 Mg Capsule.Dr) 20 mg PO BID@0630,1630 [facility] Last Admin: 09/06/23 06:12 Dose: 20 mg Documented By: VIBHA Senna/Docusate Sodium (Sennosides/Docusate Sodium Tablet) 2 tab PO BEDTIME [facility] Last Admin: 09/05/23 20:08 Dose: 2 tab Documented By: VIBHA Sertraline HCl (Sertraline Hcl 25 Mg Tablet) 25 mg PO DAILY [facility] Last Admin: 09/06/23 08:30 Dose: 25 mg Documented By: MERVIN Sodium Chloride (0.9 % Sodium Chloride Flush 3 Ml Syringe) 3 ml IVFLUSH QSHIFT [facility] Last Admin: 09/06/23 08:30 Dose: 3 ml Documented By: MERVIN Thiamine HCl (Thiamine Hcl 100 Mg Tablet) 100 mg PO DAILY [facility] Last Admin: 09/06/23 08:29 Dose: 100 mg Documented By: MERVIN Tiotropium Zo[place] (Tiotropium [place] 2.5 Mcg Inhaler) 2 puff INHALE DAILY [facility] Last Admin: 09/06/23 07:41 Dose: 2 puff Documented By: GEOVANNA Vitamin D (Cholecalciferol (Vitamin D3) 25 Mcg Tablet) 25 mcg PO DAILY [facility] Last Admin: 09/06/23 08:29 Dose: 25 mcg Documented By: MERVIN Labs 09/04/23 07:10 09/06/23 08:53 Labs: Laboratory Results - last 24 hr 09/05/23 09/06/23 09/06/23 21:29 00:50 08:53 O2 Saturation 95.0 ABG pH at Pt Temp 7.43 ABG pCO2 at Pt Temp 67 H* ABG pO2 at Pt Temp 79 L ABG HCO3 45 H ABG Base Excess (Actual) 17.8 VBG pH VBG pCO2 VBG pO2 VBG HCO3 VBG O2 Saturation VBG Base Excess Anion Gap 15 Estim Creat Clear Calc 74.2 Estimated GFR > 60 Random Glucose 171 H Calcium 10.4 H Magnesium 1.9 B-Natriuretic Peptide 2785 H Urine Color Yellow Urine Appearance Clear Urine pH 8.0 Ur Specific [place] 1.010 Urine Protein Negative Urine Glucose (UA) Negative Urine Ketones Negative Urine Blood Trace H Urine Nitrite Negative Ur Leukocyte Esterase Trace H Urine RBC 6-10 H Urine WBC 0-5 Ur Squamous Epith Cells 0-2 Urine Bacteria None Seen Hyaline Casts 0-2 09/06/23 08:57 O2 Saturation ABG pH at Pt Temp ABG pCO2 at Pt Temp ABG pO2 at Pt Temp ABG HCO3 ABG Base Excess (Actual) VBG pH 7.57 H VBG pCO2 48 VBG pO2 109 VBG HCO3 44 H VBG O2 Saturation 100.0 VBG Base Excess 19.8 Anion Gap Estim Creat Clear Calc Estimated GFR Random Glucose Calcium Magnesium B-Natriuretic Peptide Urine Color Urine Appearance Urine pH Ur Specific [place] Urine Protein Urine Glucose (UA) Urine Ketones Urine Blood Urine Nitrite Ur Leukocyte Esterase Urine RBC Urine WBC Ur Squamous Epith Cells Urine Bacteria Hyaline Casts Assessment and Plan (1) Bilateral pleural effusion: Status: Acute (2) Decubital ulcer: Status: Acute (3) Atrial fibrillation with rapid ventricular response: Status: Acute Plan 62 y/o f copd, chronic hypoxic and hypercapnic respiratory failure on 2 L home O2, unspecified atrial fibrillation on apixaban, hfpef pulm htn, presented with sob severe sepsis and acute on chronic hypoxic respiratory failure due to copd with acute decompensation due to recent covid 19 infection complicated by superimposed bacterial pneumonia,also HFpEf: patient sob seems similar to yesterday wbc improving, ct chest: pneumonia vs chf blood culture neg@24hrs vbg seems better cxr -seems worsening chf in addition moniter i/o closely: 1.5 liter neg continue foster coulter(09/03/23-09/06/23 ) seen by ID - switched antibiotics iv doxycycline/zosyn(09/06),steroids, nebs,given extra nebs, iv lasix drip , dimox also added ( due to elevated bicarb), also will try high flow . Icu saw patient -continue current management, monitor of BiPAP currently. persistent afib with rvr: hr improving intermittent kennedy continue po cardizem ,metoprolol adjusted to 12.5 mg q6hr, digoxin stopped. moderate protein calorie malnutrition nutrition eval decubitus ulcer wound care seen pat: 1. Sacrum - Off Load Pressure - Cleanse with normal saline and pat dry. ?Apply Antifungal powder to denis-wound, lightly pack sacrum with Durafiber AG cover with sacral foam dressing. ?Change Daily. Follow provider orders for topical antifungal treatment. 2. Turn and Reposition every 2 hours and as needed for patient comfort consider uses of wedges and pillows. 3. Off Load all bony prominences with use of pillows and or heels protecting boots. 4. Monitor for incontinence and moisture control - Purewick in place with mesh underwear - do not use towel between legs as this traps moisture against the patients skin. 5. Provide adequate and supplemental nutrition - consider nutrition consult. 6. Order low air loss mattress. dvt prophylaxis - eliquis full code ongoing hospitlisation need:pneumonia /chf -need iv antibiotics and lasix , i/o ,weight ,bnp monitering - hypoxia and sob, due to age and fraility at risk for further decopmensation,expert consultation Quality Stroke Does the patient have a stroke diagnosis?: No VTE Prior VTE?: No VTE Risk Level:: Medical - moderate - high VTE Device Contraindication: Treatment Not Indicated VTE Drug Contraindication: N/A - Med Ordered
[2023-09-06] MEDS: Doxycycline Hyclate 100 MG in 0.9 % Sodium Chloride 250 ML 166.67 MG IV ×2 (15:25→22:10)
[2023-09-06 16:03] LABS: MRSA Nasal PCR NEGATIVE (Negative); SA Nasal PCR NEGATIVE (Negative)
--- NOTE | 2023-09-06 16:36 | P.CNID_ITS ---
History of Present Illness Data of Consult Service Date: 09/06/23 Requesting physician: Ned Fox Primary Care Provider: Joseph Goins MD [facility] Reason for consult: lung infiltrates She presents on 09/02 with shortness of breath suddenly last hour. She was 84% on room air. She was hospitalized 08/13-08/28 with shortness of breath and COVID test positive on 08/21. She has no sputum production or fever now. Small right pleural effusion and left more than right lung densities bases. Review of Systems 2 Review of Systems: Yes all other systems are reviewed and are negative [facility] Past Medical History Medical History Chronic a-fib Decubitus ulcer of back, stage 3 Oxygen dependent History of chronic carbon dioxide retention Compression fracture of thoracic vertebra Breast implant status CHF (congestive heart failure) Pressure ulcer COPD (chronic obstructive pulmonary disease) Osteoporosis Family History Family history: reviewed and not pertinent Social History Social History Household Members: Other Household Members Other:: lives with sister but has been in rehab last few weeks Housing: House Do you presently have visiting nurse or other home services: Yes Alcohol intake: former Patient Tobacco Use Status: Former Tobacco user Tobacco use type: Cigarette Advance Directives Date on File: 08/18/23 service: No Meds Allergies Allergy/AdvReac Type Severity Reaction Status Date / Time codeine Allergy Intermediate Anaphylaxis Verified 09/02/23 22:36 morphine Allergy Anaphylaxis Verified 09/02/23 22:36 Active Medications: Current Medications Acetaminophen (Acetaminophen 325 Mg Tablet) 975 mg PO Q6H PRN PRN Reason: Pain, Mild (Pain Scale 1-3) Last Admin: 09/03/23 19:56 Dose: 975 mg Acetazolamide (Acetazolamide Sodium 500 Mg Vial) 375 mg IVPUSH BID [facility] Last Admin: 09/06/23 08:28 Dose: 375 mg Albuterol/Ipratropium (Albuterol/Iprat 2.5/0.5mg 3 Ml Ampul.Neb) 3 ml INHALE RQ4H WHILE AWAKE PRN PRN Reason: sob Last Admin: 09/05/23 04:53 Dose: 3 ml Apixaban (Apixaban 5 Mg Tablet) 5 mg PO BID [facility] Last Admin: 09/06/23 08:29 Dose: 5 mg Atorvastatin Calcium (Atorvastatin Calcium 20 Mg Tablet) 20 mg PO BEDTIME [facility] Last Admin: 09/05/23 20:09 Dose: 20 mg Bisacodyl (Bisacodyl 10 Mg Supp.Rect) 10 mg DC Q3D PRN PRN Reason: Constipation Diltiazem HCl (Diltiazem Hcl 30 Mg Tablet) 30 mg PO QID [facility]; Protocol Last Admin: 09/06/23 12:55 Dose: 30 mg Fluticasone/Vilanterol (Fluticasone/Vilanterol 100/25 Blst.W.Dev) 1 puff INHALE DAILY [facility] Last Admin: 09/06/23 07:41 Dose: 1 puff Folic Acid (Folic Acid 1 Mg Tablet) 1 mg PO DAILY [facility] Last Admin: 09/06/23 08:30 Dose: 1 mg Gabapentin (Gabapentin 300 Mg Capsule) 600 mg PO TID [facility] Last Admin: 09/04/23 17:25 Dose: 600 mg Guaifenesin (Guaifenesin 100 Mg/5 Ml Liquid) 10 ml PO Q8H PRN PRN Reason: Cough Last Admin: 09/04/23 05:30 Dose: 10 ml Hydroxyzine HCl (Hydroxyzine Hcl 25 Mg Tablet) 25 mg PO Q6H PRN PRN Reason: anxiety/restlessness Last Admin: 09/05/23 16:00 Dose: 25 mg Furosemide 200 mg/ Sodium (Chloride) 100 mls @ 2.5 mls/hr IVCONT .Q24H [facility] Last Admin: 09/05/23 17:10 Dose: 5 mg/hr, 2.5 mls/hr Doxycycline Hyclate 100 mg/ (Sodium Chloride) 250 mls @ 166.67 mls/hr IV BID [facility] Last Admin: 09/06/23 15:25 Dose: 166.67 mls/hr Piperacillin Sod/Tazobactam (Sod 3.375 gm/ Sodium Chloride) 50 mls @ 100 mls/hr IV Q6H [facility] Last Infusion: 09/06/23 15:34 Dose: Infused Lidocaine (Lidocaine 4 % Patch Adh..Patch) 1 patch TRANSDERMA DAILY [facility]; Protocol Last Admin: 09/06/23 08:47 Dose: Not Given Melatonin (Melatonin 3 Mg Tablet) 3 mg PO BEDTIME [facility] Last Admin: 09/05/23 20:08 Dose: 3 mg Methylprednisolone Sodium Succinate (Methylprednisolone Sod Succ 40 Mg/Ml Vial) 40 mg IVPUSH Q12H [facility] Last Admin: 09/06/23 08:28 Dose: 40 mg Metoprolol Tartrate (Metoprolol Tartrate 12.5 Mg Halftab) 12.5 mg PO Q6H [facility]; Protocol Last Admin: 09/06/23 12:55 Dose: 12.5 mg Multivitamins/Vitamin C (Multivitamin Tablet) 1 tab PO DAILY [facility] Last Admin: 09/06/23 08:29 Dose: 1 tab Nicotine (Nicotine 21 Mg Patch.Td24) 21 mg TRANSDERMA DAILY [facility] Last Admin: 09/06/23 08:30 Dose: 21 mg Omeprazole (Omeprazole 20 Mg Capsule.Dr) 20 mg PO BID@0630,1630 [facility] Last Admin: 09/06/23 06:12 Dose: 20 mg Senna/Docusate Sodium (Sennosides/Docusate Sodium Tablet) 2 tab PO BEDTIME [facility] Last Admin: 09/05/23 20:08 Dose: 2 tab Sertraline HCl (Sertraline Hcl 25 Mg Tablet) 25 mg PO DAILY [facility] Last Admin: 09/06/23 08:30 Dose: 25 mg Sodium Chloride (0.9 % Sodium Chloride Flush 3 Ml Syringe) 3 ml IVFLUSH QSHIFT [facility] Last Admin: 09/06/23 14:41 Dose: 3 ml Thiamine HCl (Thiamine Hcl 100 Mg Tablet) 100 mg PO DAILY [facility] Last Admin: 09/06/23 08:29 Dose: 100 mg Tiotropium [place] (Tiotropium [place] 2.5 Mcg Inhaler) 2 puff INHALE DAILY [facility] Last Admin: 09/06/23 07:41 Dose: 2 puff Vitamin D (Cholecalciferol (Vitamin D3) 25 Mcg Tablet) 25 mcg PO DAILY [facility] Last Admin: 09/06/23 08:29 Dose: 25 mcg Home Medications Medication Instructions Recorded Confirmed Last Taken Type acetaminophen 325 mg tablet 650 mg PO Q6H PRN temp > 08/13/23 09/03/23 Unknown History 100/general discomfort albuterol sulfate 90 mcg/actuation 1 inh inhalation QID PRN Wheezing 08/13/23 09/03/23 Unknown History aerosol inhaler (Ventolin HFA) apixaban 5 mg tablet 5 mg PO BID 08/13/23 09/03/23 Unknown History aspirin 81 mg tablet,delayed 81 mg PO DAILY 08/13/23 09/03/23 Unknown History release atorvastatin 20 mg tablet 20 mg PO BEDTIME 08/13/23 09/03/23 Unknown History bisacodyl 10 mg rectal suppository 10 mg DC Q3D PRN Constipation 08/13/23 09/03/23 Unknown History (Dulcolax (bisacodyl)) cholecalciferol (vitamin D3) 25 25 mcg PO DAILY 08/13/23 09/03/23 Unknown History mcg (1,000 unit) tablet collagenase clostridium histo. 250 1 appl topical DAILY 08/13/23 09/03/23 Unknown History unit/gram topical ointment (Santyl) fluticasone 250 mcg-salmeterol 50 1 inh inhalation BID 08/13/23 09/03/23 Unknown History mcg/dose blistr powdr for inhalation (Advair Diskus) folic acid 1 mg tablet 1 mg PO DAILY 08/13/23 09/03/23 Unknown History furosemide 40 mg tablet 40 mg PO DAILY 08/13/23 09/03/23 Unknown History gabapentin 300 mg capsule 600 mg PO TID 08/13/23 09/03/23 Unknown History guaifenesin 100 mg/5 mL oral liquid 200 mg PO Q8H PRN Cough 08/13/23 09/03/23 Unknown History ipratropium 0.5 mg-albuterol 3 mg 3 ml inhalation Q6H PRN SHORTNESS 08/13/23 09/03/23 Unknown History (2.5 mg base)/3 mL nebulization OF BREATH/WHEEZE soln lactulose 10 gram/15 mL oral 20 g PO Q12H PRN Constipation 08/13/23 09/03/23 Unknown History solution magnesium hydroxide 400 mg/5 mL 30 ml PO BEDTIME PRN Constipation 08/13/23 09/03/23 Unknown History oral suspension (Milk of Magnesia) melatonin 3 mg tablet 3 mg PO BEDTIME 08/13/23 09/03/23 Unknown History metoprolol succinate 50 mg 50 mg PO BID 08/13/23 09/03/23 Unknown History tablet,extended release 24 hr multivitamin 1 tab PO DAILY 08/13/23 09/03/23 Unknown History nicotine 21 mg/24 hr daily 1 patch transdermal DAILY 08/13/23 09/03/23 Unknown History transdermal patch oxycodone 5 mg tablet 2.5 mg PO Q6H PRN Pain 08/13/23 09/03/23 Unknown History pantoprazole 40 mg tablet,delayed 40 mg PO DAILY 08/13/23 09/03/23 Unknown History release (Protonix) sennosides 8.6 mg-docusate sodium 2 tab-cap PO BEDTIME 08/13/23 09/03/23 Unknown History 50 mg tablet (Senna Plus) sertraline 25 mg tablet 25 mg PO DAILY 08/13/23 09/03/23 Unknown History sodium phosphates 19 gram-7 118 ml DC DAILY PRN Constipation 08/13/23 09/03/23 Unknown History gram/118 mL enema (Fleet Enema) thiamine HCl (vitamin B1) 100 mg 100 mg PO DAILY 08/13/23 09/03/23 Unknown History tablet umeclidinium 62.5 mcg/actuation 1 inh inhalation DAILY 08/13/23 09/03/23 Unknown History blister powder for inhalation (Incruse Ellipta) lorazepam 0.5 mg tablet 0.5 mg PO BID PRN anxiety 09/03/23 09/03/23 Unknown History Physical Exam 2 Vital Signs: Vital Signs: Last Vital Signs Temp 96.8 F 09/06/23 15:26 Pulse 87 09/06/23 15:26 Resp 20 09/06/23 15:26 BP 132/75 09/06/23 15:26 Pulse Ox 91 L 09/06/23 15:26 O2 Del Method High Flow Nasal C annula 09/06/23 15:26 O2 Flow Rate 40 09/06/23 15:26 FiO2 31 09/06/23 15:26 Oxygen Flow Rate 3 09/02/23 22:52 BMI result Body Mass Index 20.8 Const: General: cooperative HEENT: Head: Yes normal to inspection Face and sinus: Yes normal facial exam Mouth: Normal oral and palatal mucosa present Teeth and gingiva: d entition normal Eyes: General: appearance normal, both eyes and all related structures P upils: Equal, round and reactive pupils present Resp: Other: decreased breath sounds bases Cardio: Rate: regular rate Rhythm: regular rhythm GI: Palpation (GI): Soft to palpation and nontender : General: Yes no CVA tenderness Back/Spine/Pelvis: Back: no CVA tenderness Skin: General skin exam: no rashes or lesions noted Neuro: General: moves all extremities Cranial nerves: Yes Equal, round and reactive pupils present Extrem: General: Yes normal to inspection Psych: Appearance: grossly normal Results Labs 09/04/23 07:10 09/06/23 08:53 Labs: BMP 09/06/23 08:53 Sodium 140 Potassium 2.8 L D Chloride 90 L Carbon Dioxide 38 H BUN 17 H Creatinine 0.55 Calcium 10.4 H Urine 09/06/23 Range/Units 00:50 Urine Color Yellow Urine Appearance Clear Urine pH 8.0 (5.0-9.0) Ur Specific [place] 1.010 (1.005-1.025) Urine Protein Negative (Neg-Trace) mg/dL Urine Glucose (UA) Negative (Negative) mg/dL Microbiology Microbiology Results: Microbiology 09/02/23 23:16 Blood - Venous Blood Culture - Preliminary No growth after 48 hours. 09/02/23 23:16 Blood - Venous Blood Culture - Preliminary No growth after 48 hours. Assessment and Plan (1) Bilateral pleural effusion: Status: Acute (2) Decubital ulcer: Status: Acute (3) Pneumonia: Qualifiers: Laterality: right Pneumonia type: due to unspecified organism Status: Acute There is probable health care associated pneumonia with Pseudomonas or other gram negative. She may have MRSA as well. She is out of range of contagion for COVID in not severely immunocompromised host Would change to Doxycycline and Piperacillin/tazobactam and stop Ceftriaxone and Vancomycin, possible 7-10 days Would remove isolation. No effusion enough to drain
--- NOTE | 2023-09-06 16:42 | PM.EVENT ---
Event Note Date of Service: 09/06/23 Event Note: should read stop Ceftriaxone and Zmax and start Zosyn and Doxycycline Time Spent With Patient Time: Total time managing care of this patient today ____ minutes.
[2023-09-06] MEDS: Furosemide 200 MG in 0.9 % Sodium Chloride 80 ML IVCONT (17:40)
[2023-09-06] MEDS: Atorvastatin Calcium 20 MG TABLET PO (21:04)
[2023-09-06] MEDS: Melatonin 3 MG TABLET PO (21:05)
[2023-09-06] MEDS: Sennosides/Docusate Sodium TABLET 2 TAB PO (21:05)
[2023-09-07] VITALS (12 sets, daily range): BP systolic 121–144; BP diastolic 60–75; PULSE 77–94; RESP 14–20; TEMP 36.1–37; O2SAT 94–99
[2023-09-07] MEDS: Piperacillin Sodium/Tazobactam 3.375 GM in 0.9 % Sodium Chloride 50 ML IV ×4 (01:21→16:50)
[2023-09-07] MEDS: Metoprolol Tartrate 12.5 MG HALFTAB PO ×4 (01:21→16:50)
[2023-09-07] MEDS: 0.9 % Sodium Chloride Flush 3 ML SYRINGE IVFLUSH ×4 (01:22→19:52)
[2023-09-07] MEDS: Fluticasone/Vilanterol 100/25 BLST.W.DEV 1 PUFF INHALE (08:00)
[2023-09-07] MEDS: Doxycycline Hyclate 100 MG in 0.9 % Sodium Chloride 250 ML 166.67 MG IV ×2 (08:19→19:52)
[2023-09-07] MEDS: methylPREDNISolone Sod Succ 40 MG/ML VIAL IVPUSH (08:19)
[2023-09-07] MEDS: Thiamine HCL 100 MG TABLET PO (08:19)
[2023-09-07] MEDS: acetaZOLAMIDE sodium 500 MG VIAL 375 MG IVPUSH ×2 (08:19→19:53)
[2023-09-07] MEDS: Nicotine 21 MG PATCH.TD24 TRANSDERMA (08:19)
[2023-09-07] MEDS: Sertraline HCL 25 MG TABLET PO (08:20)
[2023-09-07] MEDS: Apixaban 5 MG TABLET PO ×2 (08:20→19:53)
[2023-09-07] MEDS: dilTIAZem HCL 30 MG TABLET PO ×4 (08:20→19:52)
[2023-09-07] MEDS: Cholecalciferol (Vitamin D3) 25 MCG TABLET PO (08:20)
[2023-09-07] MEDS: Multivitamin TABLET 1 TAB PO (08:20)
[2023-09-07] MEDS: Folic Acid 1 MG TABLET PO (08:20)
[2023-09-07 08:54] LABS: Anion Gap 15 (12-20); Blood Urea Nitrogen 18 mg/dL (9-16); Calcium 10.1 mg/dL (8.4-10.2); Carbon Dioxide 37 mmol/L (22-29); Chloride 92 mmol/L (96-108); Creatinine Clr Calc Pharmacy 66.9; Estimated Glomerular Filt Rate > 60; Glucose Random 226 mg/dL (60-115); Sodium 141 mmol/L (135-145)
--- NOTE | 2023-09-07 10:52 | PM.PNCARD ---
Subjective Subjective Date of Service: 09/07/23 Principal diagnosis: Respiratory failure. Interval history: Respiratory status has improved. Requiring less oxygen. Patient is feeling better with shortness of breath. Overall has diuresed about 3 L. Echocardiogram yesterday showed persistent moderate to severe pulmonary hypertension with elevated right atrial filling pressures. LV function is within normal limits Review of Systems Constitutional: Reports fatigue, Reports lethargy and Reports weakness Eyes: Reports no additional eye complaints Cardiovascular: Denies chest pain, Denies leg edema, Denies lightheadedness, Denies palpitations and Reports dyspnea Respiratory: Reports cough and Reports dyspnea Gastrointestinal: Reports no additional gastrointestinal complaints Genitourinary: Reports no additional female genitourinary complaints Musculoskeletal: Reports no additional musculoskeletal complaints Reports system reviewed and no additional complaints, except as documented and Reports weakness Psychiatric: Reports no additional psychiatric complaints Endocrine: Reports fatigue and Denies palpitations Physical Exam Vital Signs: Last Vital Signs Temp 98.2 F 09/07/23 07:40 Pulse 94 09/07/23 07:40 Resp 16 09/07/23 08:02 BP 135/66 09/07/23 07:40 Pulse Ox 94 09/07/23 07:40 O2 Del Method High Flow Nasal Cannula 09/07/23 07:40 O2 Flow Rate 40 09/07/23 07:40 FiO2 31 09/07/23 07:40 Oxygen Flow Rate 3 09/02/23 22:52 BMI result Body Mass Index 20.8 Const General: cooperative, alert, awake, in distress mild and respiratory and ill appearing Nutritional Appearance: cachectic and malnourished Orientation/consciousness: patient oriented x3 Neck Neck: Yes trachea midline, Yes supple and Yes no JVD Resp Effort & Inspection: decreased respiratory effort Auscultation: breath sounds absent bilateral (bases) Cardio Rhythm: abnormal rhythm irregularly irregular Heart sounds: S1 normal heart sound present, S2 normal heart sound present, no click, no gallops and no murmurs GI Auscultation: normal bowel sounds Skin General skin exam: ecchymosis Neuro General: patient oriented x3 and no focal motor deficits Extrem General: Yes no clubbing, cyanosis or edema Objective Labs and Meds 09/04/23 07:10 09/07/23 08:35 Lab results: Laboratory Results - last 24 hr 09/06/23 09/06/23 09/07/23 08:53 14:26 08:35 Sodium 141 Potassium 3.0 L Chloride 92 L Carbon Dioxide 37 H Anion Gap 15 BUN 18 H Creatinine 0.61 Estim Creat Clear Calc 66.9 Estimated GFR > 60 Random Glucose 226 H Calcium 10.1 B-Natriuretic Peptide 2785 H Nasal Screen MRSA (PCR) NEGATIVE Nasal S. aureus Screen NEGATIVE Nasal MRSA/S.aureus Interp SEE NOTE Progress Note: A&P Assessment and plan (1) Acute respiratory failure with hypoxia: Status: Acute Assessment and Plan: Acute hypoxic respiratory failure which appears to be multifactorial. She has responded well to diuretic regimen although clinically does appear to be markedly fluid overloaded. However agree with current reduction diuretic regimen. Continue strict intake and output chart. Continue monitor renal function and replace electrolytes as needed. Also monitor BNP. Other factors that need to be consider is improving her pulmonary mechanics. Out of bed to chair incentive spirometry needs to be pursued. Continue treat her bronchospastic airway disease. Overall prognosis is guarded. (2) Atrial fibrillation with rapid ventricular response: Status: Acute Assessment and Plan: Atrial fibrillation with controlled ventricular response. Continue current rate control strategy. Continue oral anticoagulation. Will sign of the case at this point time. Thank you for allowing me to partake in her care Time Spent With Patient Time: Total time managing care of this patient today ____ minutes. Progress Note: Quality Stroke Does the patient have a stroke diagnosis?: No Procedures Date of Service Date of Service: 09/07/23
[2023-09-07 11:34] LABS: B Type Natriuretic Peptide 1263 pg/mL (<100)
[2023-09-07] MEDS: hydrOXYzine HCL 25 MG TABLET PO (12:36)
[2023-09-07] MEDS: Acetaminophen 325 MG TABLET 975 MG PO ×2 (12:36→19:52)
--- NOTE | 2023-09-07 15:09 | P.PNIM_ITS ---
Subjective Subjective Date of Service: 09/07/23 Interval History: Acute hypoxemic respiratory failure Review of Systems sob improivng but still short of breath with minimal exertion. Cough is improving. No fever chills. Physical Exam 2 Vital Signs: Vital Signs: Last Vital Signs Temp 98.6 F 09/07/23 11:17 Pulse 90 09/07/23 11:17 Resp 20 09/07/23 11:17 BP 121/75 09/07/23 11:17 Pulse Ox 95 09/07/23 11:17 O2 Del Method Oxymask 09/07/23 11:17 O2 Flow Rate 2 09/07/23 11:17 FiO2 31 09/07/23 07:40 Oxygen Flow Rate 3 09/02/23 22:52 BMI result Body Mass Index 20.8 Appearance: Alert.? Oriented X3.? not in distress.? cvs: rrr, [id number] , no murmur res: air entry diminished bilateral, minimum wheezin abd: no rebound or guarding ,nt, bs present. ext pulses present , no cyanosis. neuro: axo3 , nonfocal. Objective Data Active Medications Acetaminophen (Acetaminophen 325 Mg Tablet) 975 mg PO Q6H PRN PRN Reason: Pain, Mild (Pain Scale 1-3) Last Admin: 09/07/23 12:36 Dose: 975 mg Documented By: MERVIN Acetazolamide (Acetazolamide Sodium 500 Mg Vial) 375 mg IVPUSH BID [facility] Last Admin: 09/07/23 08:19 Dose: 375 mg Documented By: MERVIN Albuterol/Ipratropium (Albuterol/Iprat 2.5/0.5mg 3 Ml Ampul.Neb) 3 ml INHALE RQ4H WHILE AWAKE PRN PRN Reason: sob Last Admin: 09/05/23 04:53 Dose: 3 ml Documented By: MER Apixaban (Apixaban 5 Mg Tablet) 5 mg PO BID [facility] Last Admin: 09/07/23 08:20 Dose: 5 mg Documented By: MERVIN Atorvastatin Calcium (Atorvastatin Calcium 20 Mg Tablet) 20 mg PO BEDTIME [facility] Last Admin: 09/06/23 21:04 Dose: 20 mg Documented By: LUCY Bisacodyl (Bisacodyl 10 Mg Supp.Rect) 10 mg [place] Q3D PRN PRN Reason: Constipation Diltiazem HCl (Diltiazem Hcl 30 Mg Tablet) 30 mg PO QID [facility]; Protocol Last Admin: 09/07/23 12:36 Dose: 30 mg Documented By: MERVIN Fluticasone/Vilanterol (Fluticasone/Vilanterol 100/25 Blst.W.Dev) 1 puff INHALE DAILY [facility] Last Admin: 09/07/23 08:00 Dose: 1 puff Documented By: CLARE Folic Acid (Folic Acid 1 Mg Tablet) 1 mg PO DAILY [facility] Last Admin: 09/07/23 08:20 Dose: 1 mg Documented By: MERVIN Furosemide (Furosemide 40 Mg/4 Ml Vial) 40 mg IVPUSH BID@0900,1800 [facility]; Protocol Gabapentin (Gabapentin 300 Mg Capsule) 600 mg PO TID [facility] Last Admin: 09/04/23 17:25 Dose: 600 mg Documented By: STEPHENIE Guaifenesin (Guaifenesin 100 Mg/5 Ml Liquid) 10 ml PO Q8H PRN PRN Reason: Cough Last Admin: 09/04/23 05:30 Dose: 10 ml Documented By: JINA Hydroxyzine HCl (Hydroxyzine Hcl 25 Mg Tablet) 25 mg PO Q6H PRN PRN Reason: anxiety/restlessness Last Admin: 09/07/23 12:36 Dose: 25 mg Documented By: MERVIN Doxycycline Hyclate 100 mg/ (Sodium Chloride) 250 mls @ 166.67 mls/hr IV BID [facility] Last Infusion: 09/07/23 10:13 Dose: Infused Documented By: MERVIN Piperacillin Sod/Tazobactam (Sod 3.375 gm/ Sodium Chloride) 50 mls @ 100 mls/hr IV Q6H [facility] Last Infusion: 09/07/23 13:16 Dose: Infused Documented By: MERVIN Lidocaine (Lidocaine 4 % Patch Adh..Patch) 1 patch TRANSDERMA DAILY [facility]; Protocol Last Admin: 09/07/23 08:20 Dose: Not Given Documented By: MERVIN Non-Admin Reason: Patient Refused Melatonin (Melatonin 3 Mg Tablet) 3 mg PO BEDTIME [facility] Last Admin: 09/06/23 21:05 Dose: 3 mg Documented By: LUCY Methylprednisolone Sodium Succinate (Methylprednisolone Sod Succ 40 Mg/Ml Vial) 40 mg IVPUSH Q12H [facility] Last Admin: 09/07/23 08:19 Dose: 40 mg Documented By: MERVIN Metoprolol Tartrate (Metoprolol Tartrate 12.5 Mg Halftab) 12.5 mg PO Q6H [facility]; Protocol Last Admin: 09/07/23 12:36 Dose: 12.5 mg Documented By: MERVIN Multivitamins/Vitamin C (Multivitamin Tablet) 1 tab PO DAILY [facility] Last Admin: 09/07/23 08:20 Dose: 1 tab Documented By: MERVIN Nicotine (Nicotine 21 Mg Patch.Td24) 21 mg TRANSDERMA DAILY [facility] Last Admin: 09/07/23 08:19 Dose: 21 mg Documented By: MERVIN Omeprazole (Omeprazole 20 Mg Capsule.Dr) 20 mg PO BID@0630,1630 [facility] Last Admin: 09/07/23 05:53 Dose: Not Given Documented By: LUCY Non-Admin Reason: cannot crush Senna/Docusate Sodium (Sennosides/Docusate Sodium Tablet) 2 tab PO BEDTIME [facility] Last Admin: 09/06/23 21:05 Dose: 2 tab Documented By: LUCY Sertraline HCl (Sertraline Hcl 25 Mg Tablet) 25 mg PO DAILY [facility] Last Admin: 09/07/23 08:20 Dose: 25 mg Documented By: MERVIN Sodium Chloride (0.9 % Sodium Chloride Flush 3 Ml Syringe) 3 ml IVFLUSH QSHIFT [facility] Last Admin: 09/07/23 08:15 Dose: 3 ml Documented By: MERVIN Thiamine HCl (Thiamine Hcl 100 Mg Tablet) 100 mg PO DAILY [facility] Last Admin: 09/07/23 08:19 Dose: 100 mg Documented By: MERVIN Tiotropium [place] (Tiotropium [place] 2.5 Mcg Inhaler) 2 puff INHALE DAILY [facility] Last Admin: 09/07/23 08:00 Dose: 2 puff Documented By: CLARE Vitamin D (Cholecalciferol (Vitamin D3) 25 Mcg Tablet) 25 mcg PO DAILY [facility] Last Admin: 09/07/23 08:20 Dose: 25 mcg Documented By: MERVIN Labs 09/04/23 07:10 09/07/23 08:35 Labs: Laboratory Results - last 24 hr 09/06/23 09/07/23 09/07/23 14:26 08:35 10:28 Anion Gap 15 Estim Creat Clear Calc 66.9 Estimated GFR > 60 Random Glucose 226 H Calcium 10.1 B-Natriuretic Peptide 1263 H Nasal Screen MRSA (PCR) NEGATIVE Nasal S. aureus Screen NEGATIVE Nasal MRSA/S.aureus Interp SEE NOTE Assessment and Plan (1) Atrial fibrillation with rapid ventricular response: Status: Acute (2) Acute exacerbation of chronic obstructive pulmonary disease: Status: Acute (3) Congestive heart failure (CHF): Status: Acute (4) Hypokalemia: Status: Acute Plan 62 y/o f copd, chronic hypoxic and hypercapnic respiratory failure on 2 L home O2, unspecified atrial fibrillation on apixaban, hfpef pulm htn, presented with sob severe sepsis and acute on chronic hypoxic respiratory failure due to copd with acute decompensation due to recent covid 19 infection complicated by superimposed bacterial pneumonia,also HFpEf: patient sob seems improving wbc improving,sepsis improving ct chest: pneumonia vs chf blood culture neg@24hrs vbg seems better cxr -seems worsening chf bnp improving from [id number]. in addition moniter i/o closely: 3.6 liter neg continue rocephintanithro(09/03/23-09/06/23 ) seen by ID - switched antibiotics iv doxycycline/zosyn(09/06),steroids, nebs,iv lasix dripstopped -switched to iv lasix bid, dimox ,off high flow . persistent afib with rvr: hr improving continue po cardizem ,metoprolol adjusted to 12.5 mg q6hr, digoxin stopped. moderate protein calorie malnutrition nutrition eval decubitus ulcer wound care seen pat: 1. Sacrum - Off Load Pressure - Cleanse with normal saline and pat dry. ?Apply Antifungal powder to denis-wound, lightly pack sacrum with Durafiber AG cover with sacral foam dressing. ?Change Daily. Follow provider orders for topical antifungal treatment. 2. Turn and Reposition every 2 hours and as needed for patient comfort consider uses of wedges and pillows. 3. Off Load all bony prominences with use of pillows and or heels protecting boots. 4. Monitor for incontinence and moisture control - Purewick in place with mesh underwear - do not use towel between legs as this traps moisture against the patients skin. 5. Provide adequate and supplemental nutrition - consider nutrition consult. 6. Order low air loss mattress. dvt prophylaxis - eliquis full code ongoing hospitlisation need:pneumonia /chf -need iv antibiotics and lasix , i/o ,weight ,bnp monitering - hypoxia and sob, due to age and fraility at risk for further decopmensation. Quality Stroke Does the patient have a stroke diagnosis?: No VTE Prior VTE?: No VTE Risk Level:: Medical - moderate - high VTE Device Contraindication: Treatment Not Indicated VTE Drug Contraindication: N/A - Med Ordered
[2023-09-07] MEDS: Omeprazole 20 MG CAPSULE.DR PO (16:50)
[2023-09-07] MEDS: Magnesium Oxide 400 MG TABLET PO (16:50)
[2023-09-07] MEDS: Potassium Chloride Packet 20 MEQ PACKET 40 MEQ PO (16:50)
[2023-09-07] MEDS: Furosemide 40 MG/4 ML VIAL IVPUSH (16:50)
[2023-09-07] MEDS: Sennosides/Docusate Sodium TABLET 2 TAB PO (19:53)
[2023-09-07] MEDS: Atorvastatin Calcium 20 MG TABLET PO (19:53)
[2023-09-07] MEDS: Melatonin 3 MG TABLET PO (19:53)
[2023-09-07] MEDS: Milk of Magnesia 30 ML ORAL.SUSP PO (22:16)
[2023-09-07] MEDS: Albuterol/Iprat 2.5/0.5MG 3 ML AMPUL.NEB INHALE (22:27)
[2023-09-08] MEDS: Metoprolol Tartrate 12.5 MG HALFTAB PO ×4 (01:16→17:31)
[2023-09-08] MEDS: Piperacillin Sodium/Tazobactam 3.375 GM in 0.9 % Sodium Chloride 50 ML IV ×4 (01:16→19:32)
[2023-09-08 02:51] VITALS: BP 136/63; PULSE 84; RESP 19; TEMP 36.4; O2SAT 97
[2023-09-08] MEDS: 0.9 % Sodium Chloride Flush 3 ML SYRINGE IVFLUSH ×3 (07:29→19:33)
[2023-09-08] MEDS: Magnesium Oxide 400 MG TABLET PO ×2 (07:29→16:29)
[2023-09-08 07:39] VITALS: BP 157/78; PULSE 81; RESP 16; TEMP 36.3; O2SAT 99
[2023-09-08] MEDS: Fluticasone/Vilanterol 100/25 BLST.W.DEV 1 PUFF INHALE (08:10)
[2023-09-08 08:11] VITALS: PULSE 81; RESP 16; O2SAT 99
[2023-09-08 08:29] LABS: Anion Gap 12 (12-20); Blood Urea Nitrogen 25 mg/dL (9-16); Calcium 9.8 mg/dL (8.4-10.2); Carbon Dioxide 36 mmol/L (22-29); Chloride 96 mmol/L (96-108); Creatinine Clr Calc Pharmacy 78.5; Estimated Glomerular Filt Rate > 60; Glucose Random 162 mg/dL (60-115); Potassium 2.6 mmol/L (3.3-5.1); Sodium 141 mmol/L (135-145)
[2023-09-08 08:37] LABS: B Type Natriuretic Peptide 444 pg/mL (<100)
[2023-09-08] MEDS: acetaZOLAMIDE sodium 500 MG VIAL 375 MG IVPUSH ×2 (08:47→21:17)
[2023-09-08] MEDS: Nicotine 21 MG PATCH.TD24 TRANSDERMA (08:47)
[2023-09-08] MEDS: Cholecalciferol (Vitamin D3) 25 MCG TABLET PO (08:48)
[2023-09-08] MEDS: predniSONE 20 MG TABLET 40 MG PO (08:48)
[2023-09-08] MEDS: Folic Acid 1 MG TABLET PO (08:48)
[2023-09-08] MEDS: Acetaminophen 325 MG TABLET 975 MG PO ×2 (08:49→19:33)
[2023-09-08] MEDS: Thiamine HCL 100 MG TABLET PO (08:50)
[2023-09-08] MEDS: dilTIAZem HCL 30 MG TABLET PO (08:50)
[2023-09-08] MEDS: Apixaban 5 MG TABLET PO ×2 (08:50→21:15)
[2023-09-08] MEDS: Multivitamin TABLET 1 TAB PO (08:50)
[2023-09-08] MEDS: Sertraline HCL 25 MG TABLET PO (08:50)
[2023-09-08] MEDS: Furosemide 40 MG/4 ML VIAL IVPUSH ×2 (08:52→17:31)
[2023-09-08] MEDS: Doxycycline Hyclate 100 MG in 0.9 % Sodium Chloride 250 ML 166.7 MG IV (09:02)
[2023-09-08] MEDS: Potassium Chloride Packet 20 MEQ PACKET 40 MEQ PO (09:08)
[2023-09-08] MEDS: Potassium Chloride/H20 10 MEQ/100 ML PIGGYBACK 100 MEQ IV ×4 (09:17→13:48)
[2023-09-08 09:19] LABS: Magnesium 1.9 mg/dL (1.6-2.6)
[2023-09-08] MEDS: dilTIAZem HCL CD 120 MG CAP.ER.DEG PO ×2 (09:27→19:33)
[2023-09-08 11:39] VITALS: BP 131/66; PULSE 98; RESP 20; TEMP 36.9; O2SAT 92
[2023-09-08] MEDS: dilTIAZem HCL 50 MG/10 ML VIAL IVPUSH (13:15)
[2023-09-08] MEDS: Potassium Chloride ER 20 MEQ TAB.ER.PRT PO ×2 (13:15→13:16)
[2023-09-08] MEDS: LORazepam 0.5 MG TABLET PO (13:16)
--- NOTE | 2023-09-08 13:30 | MHC.CM.PN ---
Pt is not yet ready for DC. Plan is to return to [facility] where they are holding a bed for her. Updated progress notes have been sent to [facility]. They have accepted her back and said that they will not need a PT eval for her to return. CM to follow and assist with DC plan.
--- NOTE | 2023-09-08 13:34 | MHC.CLN ---
F/U PO INTAKE 25-50% DIET RX: REGULAR-APPROPRIATE PT RECEIVING ENSURE MAX TID TO PROMOTE WOUND HEALING SUPP PROVIDES 450KCALS, 90G PROTEIN CONTINUE TO MONITOR PO INTAKE AND SUPPLEMENT ACCEPTANCE
--- NOTE | 2023-09-08 14:14 | HO.PM.IMPN ---
Subjective Subjective Date of Service: 09/08/23 Interval History: chf ,afib with rvr Review of Systems sob seems improving,today she feels more comfortable No chest pain or nausea vomiting or cough or fever Physical Exam Vital Signs: Vital Signs: Last Vital Signs Temp 98.4 F 09/08/23 11:39 Pulse 98 09/08/23 11:39 Resp 20 09/08/23 11:39 BP 131/66 09/08/23 11:39 Pulse Ox 92 09/08/23 11:39 O2 Del Method Room Air 09/08/23 11:39 O2 Flow Rate 2 09/08/23 07:39 FiO2 31 09/07/23 07:40 Oxygen Flow Rate 3 09/02/23 22:52 BMI result Body Mass Index 20.8 Appearance: Alert.? Oriented X3.? not in distress.? cvs: rrr, [id number] , no murmur res: air entry diminished bilateral, minimum wheezin abd: no rebound or guarding ,nt, bs present. ext pulses present , no cyanosis. neuro: axo3 , nonfocal. Objective Data Active Medications Acetaminophen (Acetaminophen 325 Mg Tablet) 975 mg PO Q6H PRN PRN Reason: Pain, Mild (Pain Scale 1-3) Last Admin: 09/08/23 08:49 Dose: 975 mg Documented By: BIENVENIDO Acetazolamide (Acetazolamide Sodium 500 Mg Vial) 375 mg IVPUSH BID [facility] Last Admin: 09/08/23 08:47 Dose: 375 mg Documented By: BIENVENIDO Albuterol/Ipratropium (Albuterol/Iprat 2.5/0.5mg 3 Ml Ampul.Neb) 3 ml INHALE RQ4H WHILE AWAKE PRN PRN Reason: sob Last Admin: 09/07/23 22:27 Dose: 3 ml Documented By: JULIUS Apixaban (Apixaban 5 Mg Tablet) 5 mg PO BID [facility] Last Admin: 09/08/23 08:50 Dose: 5 mg Documented By: BIENVENIDO Atorvastatin Calcium (Atorvastatin Calcium 20 Mg Tablet) 20 mg PO BEDTIME [facility] Last Admin: 09/07/23 19:53 Dose: 20 mg Documented By: LUCY Bisacodyl (Bisacodyl 10 Mg Supp.Rect) 10 mg [place] Q3D PRN PRN Reason: Constipation Diltiazem HCl (Diltiazem Hcl Cd 120 Mg Cap.Er.Deg) 120 mg PO BID [facility]; Protocol Fluticasone/Vilanterol (Fluticasone/Vilanterol 100/25 Blst.W.Dev) 1 puff INHALE DAILY [facility] Last Admin: 09/08/23 08:10 Dose: 1 puff Documented By: CLARE Folic Acid (Folic Acid 1 Mg Tablet) 1 mg PO DAILY [facility] Last Admin: 09/08/23 08:48 Dose: 1 mg Documented By: BIENVENIDO Furosemide (Furosemide 40 Mg/4 Ml Vial) 40 mg IVPUSH BID@0900,1800 [facility]; Protocol Last Admin: 09/08/23 08:52 Dose: 40 mg Documented By: BIENVENIDO Gabapentin (Gabapentin 300 Mg Capsule) 600 mg PO TID [facility] Last Admin: 09/04/23 17:25 Dose: 600 mg Documented By: STEPHENIE Guaifenesin (Guaifenesin 100 Mg/5 Ml Liquid) 10 ml PO Q8H PRN PRN Reason: Cough Last Admin: 09/04/23 05:30 Dose: 10 ml Documented By: JINA Hydroxyzine HCl (Hydroxyzine Hcl 25 Mg Tablet) 25 mg PO Q6H PRN PRN Reason: anxiety/restlessness Last Admin: 09/07/23 12:36 Dose: 25 mg Documented By: MERVIN Doxycycline Hyclate 100 mg/ (Sodium Chloride) 250 mls @ 166.67 mls/hr IV BID [facility] Last Infusion: 09/08/23 11:07 Dose: Infused Documented By: BIENVENIDO Piperacillin Sod/Tazobactam (Sod 3.375 gm/ Sodium Chloride) 50 mls @ 100 mls/hr IV Q6H [facility] Last Infusion: 09/08/23 13:21 Dose: Infused Documented By: BIENVENIDO Lidocaine (Lidocaine 4 % Patch Adh..Patch) 1 patch TRANSDERMA DAILY [facility]; Protocol Last Admin: 09/08/23 09:19 Dose: Not Given Documented By: BIENVENIDO Non-Admin Reason: Patient Refused Magnesium Oxide (Magnesium Oxide 400 Mg Tablet) 400 mg PO BIDPC [facility] Last Admin: 09/08/23 07:29 Dose: 400 mg Documented By: BIENVENIDO Melatonin (Melatonin 3 Mg Tablet) 3 mg PO BEDTIME [facility] Last Admin: 09/07/23 19:53 Dose: 3 mg Documented By: LUCY Metoprolol Tartrate (Metoprolol Tartrate 12.5 Mg Halftab) 12.5 mg PO Q6H [facility]; Protocol Last Admin: 09/08/23 12:35 Dose: 12.5 mg Documented By: BIENVENIDO Multivitamins/Vitamin C (Multivitamin Tablet) 1 tab PO DAILY [facility] Last Admin: 09/08/23 08:50 Dose: 1 tab Documented By: BIENVENIDO Nicotine (Nicotine 21 Mg Patch.Td24) 21 mg TRANSDERMA DAILY [facility] Last Admin: 09/08/23 08:47 Dose: 21 mg Documented By: BIENVENIDO Omeprazole (Omeprazole 20 Mg Capsule.Dr) 20 mg PO BID@0630,1630 [facility] Last Admin: 09/08/23 05:40 Dose: Not Given Documented By: LUCY Non-Admin Reason: cannot crush Prednisone (Prednisone 20 Mg Tablet) 40 mg PO DAILY [facility] Last Admin: 09/08/23 08:48 Dose: 40 mg Documented By: BIENVENIDO Senna/Docusate Sodium (Sennosides/Docusate Sodium Tablet) 2 tab PO BEDTIME [facility] Last Admin: 09/07/23 19:53 Dose: 2 tab Documented By: LUCY Sertraline HCl (Sertraline Hcl 25 Mg Tablet) 25 mg PO DAILY [facility] Last Admin: 09/08/23 08:50 Dose: 25 mg Documented By: BIENVENIDO Sodium Chloride (0.9 % Sodium Chloride Flush 3 Ml Syringe) 3 ml IVFLUSH QSHIFT [facility] Last Admin: 09/08/23 07:29 Dose: 3 ml Documented By: BIENVENIDO Thiamine HCl (Thiamine Hcl 100 Mg Tablet) 100 mg PO DAILY [facility] Last Admin: 09/08/23 08:50 Dose: 100 mg Documented By: BIENVENIDO Tiotropium [place] (Tiotropium [place] 2.5 Mcg Inhaler) 2 puff INHALE DAILY [facility] Last Admin: 09/08/23 08:10 Dose: 2 puff Documented By: CLARE Vitamin D (Cholecalciferol (Vitamin D3) 25 Mcg Tablet) 25 mcg PO DAILY [facility] Last Admin: 09/08/23 08:48 Dose: 25 mcg Documented By: BIENVENIDO Labs 09/04/23 07:10 09/08/23 07:11 Labs: Laboratory Results - last 24 hr 09/08/23 07:11 Anion Gap 12 Estim Creat Clear Calc 78.5 Estimated GFR > 60 Random Glucose 162 H Calcium 9.8 Magnesium 1.9 B-Natriuretic Peptide 444 H Microbiology Microbiology Results: Microbiology 09/02/23 23:16 Blood Culture - Final Blood - Venous No growth after 5 days. 09/02/23 23:16 Blood Culture - Final Blood - Venous No growth after 5 days. Assessment and Plan (1) Atrial fibrillation with rapid ventricular response: Status: Acute (2) Acute exacerbation of chronic obstructive pulmonary disease: Status: Acute (3) COPD (chronic obstructive pulmonary disease): Status: Acute Plan 62 y/o f copd, chronic hypoxic and hypercapnic respiratory failure on 2 L home O2, unspecified atrial fibrillation on apixaban, hfpef pulm htn, presented with sob severe sepsis and acute on chronic hypoxic respiratory failure due to copd with acute decompensation due to recent covid 19 infection complicated by superimposed bacterial pneumonia,also HFpEf: patient sob seems improving wbc improving,sepsis improving ct chest: pneumonia vs chf blood culture neg vbg seems better cxr -seems worsening chf bnp improving from [id number]. in addition moniter i/o closely: 3.6 liter neg continue rocephin, azithro(09/03/23-09/06/23 ) seen by ID - switched antibiotics iv doxycycline/zosyn(09/06),steroids, nebs,iv lasix dripstopped -switched to iv lasix bid, dimox ,off high flow ,taper oxygen goat sats 90% . hypokalemia severe: Added multiple p.o. and IV replacements,moniter tele and potassium levels. persistent afib with rvr: hr improving-has intermittent hr elevation changed po cardizem 120mg bid ,metoprolol adjusted to 12.5 mg q6hr, digoxin stopped. moderate protein calorie malnutrition nutrition eval-added supplements. decubitus ulcer wound care seen pat: 1. Sacrum - Off Load Pressure - Cleanse with normal saline and pat dry. ?Apply Antifungal powder to denis-wound, lightly pack sacrum with Durafiber AG cover with sacral foam dressing. ?Change Daily. Follow provider orders for topical antifungal treatment. 2. Turn and Reposition every 2 hours and as needed for patient comfort consider uses of wedges and pillows. 3. Off Load all bony prominences with use of pillows and or heels protecting boots. 4. Monitor for incontinence and moisture control - Purewick in place with mesh underwear - do not use towel between legs as this traps moisture against the patients skin. 5. Provide adequate and supplemental nutrition - consider nutrition consult. 6. Order low air loss mattress. dvt prophylaxis - eliquis full code ongoing hospitlisation need:pneumonia /chf -need iv antibiotics and lasix , i/o ,weight ,bnp monitering - hypoxia and sob, due to age and fraility at risk for further decopmensation, also severe hypokalemia need tele monitoring, aggressive potassium replacement, in addition patient is still AFib in RVR-need tele monitoring, medication adjustment and cardio follow-up for CHF and AFib. Quality Stroke Does the patient have a stroke diagnosis?: No VTE Prior VTE?: No VTE Risk Level:: Medical - moderate - high VTE Device Contraindication: Treatment Not Indicated VTE Drug Contraindication: N/A - Med Ordered
[2023-09-08 14:51] LABS: Potassium 4.3 mmol/L (3.3-5.1)
[2023-09-08 15:06] VITALS: BP 123/68; PULSE 70; RESP 17; TEMP 36.6; O2SAT 94
[2023-09-08] MEDS: Omeprazole 20 MG CAPSULE.DR PO (16:29)
[2023-09-08 19:13] VITALS: BP 134/59; PULSE 88; RESP 18; TEMP 36.3; O2SAT 92
[2023-09-08] MEDS: Sennosides/Docusate Sodium TABLET 2 TAB PO (19:33)
[2023-09-08] MEDS: Atorvastatin Calcium 20 MG TABLET PO (19:33)
[2023-09-08] MEDS: Doxycycline Hyclate 100 MG in 0.9 % Sodium Chloride 250 ML 166.67 MG IV (21:15)
[2023-09-08] MEDS: Melatonin 3 MG TABLET PO (21:15)
[2023-09-09] VITALS (9 sets, daily range): BP systolic 117–151; BP diastolic 52–90; PULSE 65–114; RESP 16–20; TEMP 36.1–36.8; O2SAT 93–97
[2023-09-09] MEDS: Metoprolol Tartrate 12.5 MG HALFTAB PO ×3 (00:49→12:36)
[2023-09-09] MEDS: Piperacillin Sodium/Tazobactam 3.375 GM in 0.9 % Sodium Chloride 50 ML IV ×4 (00:49→18:42)
--- NOTE | 2023-09-09 02:15 | PC.NURSE ---
Pt has an episode of kennedy with HR of 35 for 1 second. Pt is asymptomatic. MD notified. Currently HR is 54.
[2023-09-09] MEDS: Omeprazole 20 MG CAPSULE.DR PO ×2 (05:43→15:41)
[2023-09-09 06:09] LABS: Anion Gap 12 (12-20); Blood Urea Nitrogen 18 mg/dL (9-16); Calcium 9.6 mg/dL (8.4-10.2); Carbon Dioxide 26 mmol/L (22-29); Chloride 101 mmol/L (96-108); Creatinine Clr Calc Pharmacy 78.5; Estimated Glomerular Filt Rate > 60; Glucose Random 103 mg/dL (60-115); Potassium 3.2 mmol/L (3.3-5.1); Sodium 136 mmol/L (135-145)
[2023-09-09 06:10] LABS: B Type Natriuretic Peptide 508 pg/mL (<100)
[2023-09-09 06:13] LABS: Hematocrit 34.7 % (37.0-47.0); Mean Corpuscular HGB Conc 31.7 g/dl (31.0-35.0); Mean Corpuscular Hemoglobin 28.6 pg (27.0-33.0); Mean Corpuscular Volume 90.4 fL (80.0-98.0); Mean Platelet Volume 9.8 fL (9.4-12.3); Platelet Count 334 X10*3/uL (160-400); Red Blood Count 3.84 X10*6/uL (4.20-5.50); Red Cell Distribution Width 14.7 % (11.0-16.0); White Blood Count 19.5 X10*3/uL (4.8-10.8)
--- NOTE | 2023-09-09 06:27 | PC.NURSE ---
Potassium level of 3.2 reported to the Provider.
[2023-09-09] MEDS: Potassium Chloride Packet 20 MEQ PACKET 40 MEQ PO ×2 (06:31→08:42)
[2023-09-09] MEDS: Fluticasone/Vilanterol 100/25 BLST.W.DEV 1 PUFF INHALE (08:08)
[2023-09-09 08:34] LABS: Magnesium 1.8 mg/dL (1.6-2.6)
[2023-09-09] MEDS: Nicotine 21 MG PATCH.TD24 TRANSDERMA (08:41)
[2023-09-09] MEDS: Cholecalciferol (Vitamin D3) 25 MCG TABLET PO (08:42)
[2023-09-09] MEDS: Thiamine HCL 100 MG TABLET PO (08:42)
[2023-09-09] MEDS: Apixaban 5 MG TABLET PO ×2 (08:42→21:53)
[2023-09-09] MEDS: Sertraline HCL 25 MG TABLET PO (08:42)
[2023-09-09] MEDS: predniSONE 20 MG TABLET 40 MG PO (08:42)
[2023-09-09] MEDS: Folic Acid 1 MG TABLET PO (08:42)
[2023-09-09] MEDS: dilTIAZem HCL CD 120 MG CAP.ER.DEG PO ×2 (08:43→21:53)
[2023-09-09] MEDS: Multivitamin TABLET 1 TAB PO (08:43)
[2023-09-09] MEDS: acetaZOLAMIDE sodium 500 MG VIAL 375 MG IVPUSH (08:43)
[2023-09-09] MEDS: Magnesium Oxide 400 MG TABLET PO ×2 (08:43→18:08)
[2023-09-09] MEDS: Doxycycline Hyclate 100 MG in 0.9 % Sodium Chloride 250 ML 166.67 MG IV ×2 (08:48→21:48)
[2023-09-09] MEDS: 0.9 % Sodium Chloride Flush 3 ML SYRINGE IVFLUSH ×2 (08:59→15:34)
--- NOTE | 2023-09-09 13:19 | P.PNIM_ITS ---
Subjective Subjective Date of Service: 09/09/23 Interval History: seen and examined this morning follow up for respiratory failrue awake, alert, still with some cough, breathing improving Review of Systems Review of Systems: Yes all other systems are reviewed and are negative Constitutional Constitutional: Denies chills and Denies fever(s) Cardiovascular Cardiovascular: Denies chest pain and Denies palpitations Respiratory Respiratory: Reports cough Endocrine Endocrine: Denies palpitations Physical Exam 2 Vital Signs: Vital Signs: Last Vital Signs Temp 97.2 F 09/09/23 11:44 Pulse 103 H 09/09/23 11:44 Resp 19 09/09/23 11:44 BP 131/64 09/09/23 11:44 Pulse Ox 97 09/09/23 11:44 O2 Del Method Nasal Cannula 09/09/23 11:44 O2 Flow Rate 2 09/09/23 11:44 FiO2 31 09/07/23 07:40 Oxygen Flow Rate 3 09/02/23 22:52 BMI result Body Mass Index 20.8 Const: General: cooperative, comfortable, no acute distress, alert and awake Nutritional Appearance: thin Resp: Other: expiratory rhonchi Effort & Inspection: normal respiratory effort, able to speak in complete sentences, no respiratory distress and no use of accessory muscles Cardio: Rate: regular rate GI: Inspection: No distended Palpation (GI): Soft to palpation and nontender Neuro: Other: grossly nonfocal Extrem: General: Yes no pedal edema Objective Data Active Medications Acetaminophen (Acetaminophen 325 Mg Tablet) 975 mg PO Q6H PRN PRN Reason: Pain, Mild (Pain Scale 1-3) Last Admin: 09/08/23 19:33 Dose: 975 mg Documented By: RAVINDER Albuterol/Ipratropium (Albuterol/Iprat 2.5/0.5mg 3 Ml Ampul.Neb) 3 ml INHALE RQ4H WHILE AWAKE PRN PRN Reason: sob Last Admin: 09/07/23 22:27 Dose: 3 ml Documented By: JULIUS Apixaban (Apixaban 5 Mg Tablet) 5 mg PO BID [facility] Last Admin: 09/09/23 08:42 Dose: 5 mg Documented By: HANNA Atorvastatin Calcium (Atorvastatin Calcium 20 Mg Tablet) 20 mg PO BEDTIME [facility] Last Admin: 09/08/23 19:33 Dose: 20 mg Documented By: RAVINDER Bisacodyl (Bisacodyl 10 Mg Supp.Rect) 10 mg [place] Q3D PRN PRN Reason: Constipation Diltiazem HCl (Diltiazem Hcl Cd 120 Mg Cap.Er.Deg) 120 mg PO BID [facility]; Protocol Last Admin: 09/09/23 08:43 Dose: 120 mg Documented By: HANNA Fluticasone/Vilanterol (Fluticasone/Vilanterol 100/25 Blst.W.Dev) 1 puff INHALE DAILY [facility] Last Admin: 09/09/23 08:08 Dose: 1 puff Documented By: PATO Folic Acid (Folic Acid 1 Mg Tablet) 1 mg PO DAILY [facility] Last Admin: 09/09/23 08:42 Dose: 1 mg Documented By: HANNA Furosemide (Furosemide 40 Mg Tablet) 40 mg PO BID@0900,1800 [facility]; Protocol Gabapentin (Gabapentin 300 Mg Capsule) 600 mg PO TID [facility] Last Admin: 09/04/23 17:25 Dose: 600 mg Documented By: STEPHENIE Guaifenesin (Guaifenesin 100 Mg/5 Ml Liquid) 10 ml PO Q8H PRN PRN Reason: Cough Last Admin: 09/04/23 05:30 Dose: 10 ml Documented By: JINA Hydroxyzine HCl (Hydroxyzine Hcl 25 Mg Tablet) 25 mg PO Q6H PRN PRN Reason: anxiety/restlessness Last Admin: 09/07/23 12:36 Dose: 25 mg Documented By: MERVIN Doxycycline Hyclate 100 mg/ (Sodium Chloride) 250 mls @ 166.67 mls/hr IV BID [facility] Last Infusion: 09/09/23 12:20 Dose: Infused Documented By: HANNA Piperacillin Sod/Tazobactam (Sod 3.375 gm/ Sodium Chloride) 50 mls @ 100 mls/hr IV Q6H [facility] Last Admin: 09/09/23 12:36 Dose: 100 mls/hr Documented By: HANNA Lidocaine (Lidocaine 4 % Patch Adh..Patch) 1 patch TRANSDERMA DAILY [facility]; Protocol Last Admin: 09/09/23 09:04 Dose: Not Given Documented By: HANNA Non-Admin Reason: Patient Refused Magnesium Oxide (Magnesium Oxide 400 Mg Tablet) 400 mg PO BIDPC [facility] Last Admin: 09/09/23 08:43 Dose: 400 mg Documented By: HANNA Melatonin (Melatonin 3 Mg Tablet) 3 mg PO BEDTIME [facility] Last Admin: 09/08/23 21:15 Dose: 3 mg Documented By: RAVINDER Metoprolol Tartrate (Metoprolol Tartrate 12.5 Mg Halftab) 12.5 mg PO Q6H [facility]; Protocol Last Admin: 09/09/23 12:36 Dose: 12.5 mg Documented By: HANNA Multivitamins/Vitamin C (Multivitamin Tablet) 1 tab PO DAILY [facility] Last Admin: 09/09/23 08:43 Dose: 1 tab Documented By: HANNA Nicotine (Nicotine 21 Mg Patch.Td24) 21 mg TRANSDERMA DAILY [facility] Last Admin: 09/09/23 08:41 Dose: 21 mg Documented By: HANNA Omeprazole (Omeprazole 20 Mg Capsule.Dr) 20 mg PO BID@0630,1630 [facility] Last Admin: 09/09/23 05:43 Dose: 20 mg Documented By: RAVINDER Prednisone (Prednisone 20 Mg Tablet) 40 mg PO DAILY [facility] Last Admin: 09/09/23 08:42 Dose: 40 mg Documented By: HANNA Senna/Docusate Sodium (Sennosides/Docusate Sodium Tablet) 2 tab PO BEDTIME [facility] Last Admin: 09/08/23 19:33 Dose: 2 tab Documented By: RAVINDER Sertraline HCl (Sertraline Hcl 25 Mg Tablet) 25 mg PO DAILY [facility] Last Admin: 09/09/23 08:42 Dose: 25 mg Documented By: HANNA Sodium Chloride (0.9 % Sodium Chloride Flush 3 Ml Syringe) 3 ml IVFLUSH QSHIFT [facility] Last Admin: 09/09/23 08:59 Dose: 3 ml Documented By: HANNA Thiamine HCl (Thiamine Hcl 100 Mg Tablet) 100 mg PO DAILY [facility] Last Admin: 09/09/23 08:42 Dose: 100 mg Documented By: HANNA Tiotropium [place] (Tiotropium [place] 2.5 Mcg Inhaler) 2 puff INHALE DAILY [facility] Last Admin: 09/09/23 08:08 Dose: 2 puff Documented By: PATO Vitamin D (Cholecalciferol (Vitamin D3) 25 Mcg Tablet) 25 mcg PO DAILY [facility] Last Admin: 09/09/23 08:42 Dose: 25 mcg Documented By: HANNA Labs 09/09/23 05:32 09/09/23 05:32 Labs: Laboratory Results - last 24 hr 09/09/23 05:32 MCV 90.4 MCH 28.6 MCHC 31.7 RDW 14.7 Plt Count 334 MPV 9.8 Absolute Nucleated RBC 0.000 Nucleated RBC % (auto) 0.0 Anion Gap 12 Estim Creat Clear Calc 78.5 Estimated GFR > 60 Random Glucose 103 Calcium 9.6 Magnesium 1.8 B-Natriuretic Peptide 508 H Assessment and Plan (1) Congestive heart failure (CHF): Status: Acute (2) Hypokalemia: Status: Acute (3) Bilateral pleural effusion: Status: Acute (4) Acute exacerbation of chronic obstructive pulmonary disease: Status: Acute (5) Pneumonia: Status: Acute Plan This is a 62 y/o female with history of copd, chronic hypoxic and hypercapnic respiratory failure on 2 L home O2, unspecified atrial fibrillation on apixaban, HFpEF, pulm htn, multiple recent hospitalizations for respiratory failure related to COPD and covid 19 (tested + 08/21) who initially returned to the ED with hypoxia and sob on 09/03 and was admitted for management of sepsis secondary to COPD, with decompesation due to recent covid 19 infection as well as superimprosed bacterial pneumonia; hospital course complicated by acute on chronic heart failure requiring IV diuresis and high flow oxygen severe sepsis and acute on chronic hypoxic respiratory failure multifactorial due to COPD with acute decompensation due to recent covid 19 infection complicated by superimposed bacterial pneumonia and acute on chronic HFpEF breathing and hypoxia improving off high flow, down to baseline oxygen 2L NC pneumonia initially treated with IV rocephin, azithro(09/03/23-09/06/23) seen by ID - switched antibiotics IV doxycycline/zosyn as likely healthcare associated pneumonia given recent hospitalizations plan 10 days of abx blood cultures negative to date legionella urine antigen pending acute COPD exacerbation initially treated with IV solu-medrol, transitioned to po prednisone 09/08 will likely need prednisone taper on discharge given recurrent admissions acute on chronic HFpEF echo 09/06 with severely dilated atrium, moderately reduced RV systolic function, moderate MR, EF 50-55%; moderate pulm HTN bnp improving from [id number]. initially on lasix drip, then IV push lasix BNP overall trending down and oxygen requirements improving; overall net negative almost 5L will transition to po lasix 40 bid (on 40 daily at baseline) d/c diamox as bicarb normalized will remove ramos - voiding trial persistent afib with rvr hr improving continue po cardizem 120mg bid will adjust lopressor from q6h to toprol xl25 bid, if tolerates can likely resume home dose of toprol xl 50 bid on discharge digoxin stopped. AC with Eliquis hypokalemia severe: likely due to diuresis k 3.2; mag 1.8 continue po k and mag replacement follow BMP COVID 19 tested + 08/21 treated with decadron on previous admission leukocytosis wbc still elevated, appears chronically elevated may be due to steroid use moderate protein calorie malnutrition nutrition eval- continue supplements decubitus ulcer present on admission wound care following: Sacrum - Off Load Pressure - Cleanse with normal saline and pat dry. ?Apply Antifungal powder to denis-wound, lightly pack sacrum with Durafiber AG cover with sacral foam dressing. ?Change Daily, frequent repositioning, see full note for details dvt prophylaxis - eliquis full code attending - Dr. Owen dispo: plan to return to [facility], possibly tomorrow ongoing hospitalization need: hypokalemia need tele monitoring, aggressive potassium replacement Quality Stroke Does the patient have a stroke diagnosis?: No VTE Prior VTE?: No VTE Risk Level:: Medical - moderate - high VTE Device Contraindication: Treatment Not Indicated VTE Drug Contraindication: N/A - Med Ordered
[2023-09-09] MEDS: hydrOXYzine HCL 25 MG TABLET PO (18:08)
[2023-09-09] MEDS: Acetaminophen 325 MG TABLET 975 MG PO (18:08)
[2023-09-09] MEDS: Furosemide 40 MG TABLET PO (18:09)
[2023-09-09] MEDS: Metoprolol Succinate ER 25 MG TAB.ER.24H PO (21:53)
[2023-09-09] MEDS: Sennosides/Docusate Sodium TABLET 2 TAB PO (21:53)
[2023-09-09] MEDS: Atorvastatin Calcium 20 MG TABLET PO (21:53)
[2023-09-09] MEDS: Melatonin 3 MG TABLET PO (21:53)
[2023-09-10] MEDS: Piperacillin Sodium/Tazobactam 3.375 GM in 0.9 % Sodium Chloride 50 ML IV ×2 (00:22→09:16)
[2023-09-10 04:00] VITALS: BP 134/70; PULSE 67; RESP 19; TEMP 36.4; O2SAT 96
[2023-09-10] MEDS: Omeprazole 20 MG CAPSULE.DR PO ×2 (06:00→17:18)
[2023-09-10 07:38] VITALS: BP 150/78; PULSE 91; RESP 18; TEMP 36.6; O2SAT 92
[2023-09-10 07:50] LABS: Anion Gap 10 (12-20); Blood Urea Nitrogen 14 mg/dL (9-16); Calcium 9.2 mg/dL (8.4-10.2); Carbon Dioxide 22 mmol/L (22-29); Chloride 104 mmol/L (96-108); Creatinine Clr Calc Pharmacy 86.8; Estimated Glomerular Filt Rate > 60; Glucose Random 93 mg/dL (60-115); Potassium 3.7 mmol/L (3.3-5.1); Sodium 132 mmol/L (135-145)
[2023-09-10] MEDS: Doxycycline Hyclate 100 MG in 0.9 % Sodium Chloride 250 ML 166.67 MG IV (09:15)
[2023-09-10] MEDS: Multivitamin TABLET 1 TAB PO (09:16)
[2023-09-10] MEDS: dilTIAZem HCL CD 120 MG CAP.ER.DEG PO ×2 (09:16→21:50)
[2023-09-10] MEDS: Nicotine 21 MG PATCH.TD24 TRANSDERMA (09:16)
[2023-09-10] MEDS: predniSONE 20 MG TABLET 40 MG PO (09:16)
[2023-09-10] MEDS: Cholecalciferol (Vitamin D3) 25 MCG TABLET PO (09:16)
[2023-09-10] MEDS: Metoprolol Succinate ER 25 MG TAB.ER.24H PO ×2 (09:16→21:49)
[2023-09-10] MEDS: Magnesium Oxide 400 MG TABLET PO ×2 (09:16→17:18)
[2023-09-10] MEDS: Sertraline HCL 25 MG TABLET PO (09:16)
[2023-09-10] MEDS: Apixaban 5 MG TABLET PO ×2 (09:16→21:50)
[2023-09-10] MEDS: Thiamine HCL 100 MG TABLET PO (09:16)
[2023-09-10] MEDS: Furosemide 40 MG TABLET PO ×2 (09:16→17:18)
[2023-09-10] MEDS: Folic Acid 1 MG TABLET PO (09:16)
--- NOTE | 2023-09-10 09:57 | PC.NURSE ---
Addendum entered by Joss Mathews RN 09/10/23 13:18: informed Md pt's HR on tele afib up to 140s and c/o 07/11 b/l LE pain Original Note: informed MD of pt's O2 sat in the low 90s. per MD O2 sat goal is 90% or greater. informed MD of pt's Na level this AM.
[2023-09-10 11:46] VITALS: BP 145/70; PULSE 89; RESP 18; TEMP 36.7; O2SAT 94
--- NOTE | 2023-09-10 12:08 | P.DS_ITS ---
DS: Providers Provider Date of Service: 09/12/23 Date of admission: 09/03/23 02:23 Primary care physician: Joseph Goins MD Consults: 09/03/23 02:19 Consult to Wound Care Routine Reason for consultation: decubitus 09/03/23 07:36 Consult to Cardiology Routine Consulting Provider[place] [facility] Reason for consultation: afib rvr -previously on multiple meds hr control(adjusted for kennedy) Has provider been notified: No 09/03/23 09:50 Consult to Pulmonology Routine Consulting Provider: [facility] Reason for consultation: acute hypoxemid respiratory failure sec to pneumonia 09/06/23 07:48 Consult to Critical Care Routine Consulting Provider: Imani Polanco Reason for consultation: level of care Has provider been notified: No 09/06/23 09:41 Consult to Infectious Diseases Routine Consulting Provider: [facility] Reason for consultation: Pneumonia / recent COVID infection Has provider been notified: No DS: Diagnosis Discharge Diagnosis (1) Congestive heart failure (CHF): Status: Acute (2) Hypokalemia: Status: Acute (3) Bilateral pleural effusion: Status: Acute (4) Acute exacerbation of chronic obstructive pulmonary disease: Status: Acute (5) Pneumonia: Status: Acute DS: Summary Hospital Course Hospital Course: from initial hpi: 62F PMH copd, chronic hypoxic and hypercapnic respiratory failure on 2 L home O2, unspecified atrial fibrillation on apixaban, hfpef, pulm htn, presented with sob. patient was discharged 08/28/23 to SNF after hospitalization for copd/covid, afib. was feeling better after discharge. then night of presentation reports suddenly feeling more sob, increased cough. per EMS was 80%on 3L. in afib with rvr. in ED CXR with increased right sided opacities, increased wbc, tachypnea, lactate 2.7. hospital course: Patient was admitted for severe sepsis and acute on chronic hypoxic respiratory failure due to COPD with acute decompensation due to recent COVID-19 infection complicated by superimposed bacterial pneumonia and acute on chronic diastolic CHF. She was shaved broad-spectrum IV antibiotics which was escalated to Zosyn and doxycycline she will be discharged on 5 more days of doxycycline, blood cultures are negative. She was able to be weaned down to room air. She was given IV steroids and will continue 5 more days of prednisone. She was given IV diuresis and diuresed well, discharge a Lasix maintenance will be increased to 40 b.i.d.. For persistent atrial fibrillation with rapid ventricular response she will continue Toprol 50 mg b.i.d. and Eliquis. For hypokalemia she received replacement. For moderate protein calorie malnutrition she was continue on supplements. For decubitus ulcer wound care recommended offloading cleaning with normal saline and pat dry and lightly pack sacrum with your fiber Ag cover with sacral foam dressing daily. Patient will return to [facility]. Time Attestation Discharge coordination time: Greater than 30 minutes Quality: Safe Use of Opioids Does Pt have an Active Cancer Diagnosis on the Problem List?: No Quality: Stroke Does the patient have a stroke diagnosis?: No Physical Exam Vital Signs: Vital Signs: Last Vital Signs Temp 98.0 F 09/10/23 11:46 Pulse 89 09/10/23 11:46 Resp 18 09/10/23 11:46 BP 145/70 H 09/10/23 11:46 Pulse Ox 94 09/10/23 11:46 O2 Del Method Room Air 09/10/23 11:46 O2 Flow Rate 2 09/09/23 11:44 FiO2 31 09/07/23 07:40 Oxygen Flow Rate 3 09/02/23 22:52 BMI result Body Mass Index 20.8 Const: General: cooperative, comfortable, no acute distress, alert and awake Nutritional Appearance: thin Resp: Other: expiratory rhonchi Effort & Inspection: normal respiratory effort, able to speak in complete sentences, no respiratory distress and no use of accessory muscles Cardio: Rate: regular rate GI: Inspection: No distended Palpation (GI): Soft to palpation and nontender Neuro: Other: grossly nonfocal Extrem: General: Yes no pedal edema DS: Data Data Completed and Pending Completed studies during hospitalization [Text1]: Procedures Assistance with Respiratory Ventilation, Less than 24 Consecutive Hours, Continuous Positive Airway Pressure (08/21/23) Labs on day of discharge: Laboratory Results - last 24 hr 09/10/23 09/10/23 07:21 07:25 Hold Purple Top SEE NOTE Sodium 132 L Potassium 3.7 Chloride 104 Carbon Dioxide 22 Anion Gap 10 L BUN 14 Creatinine 0.47 L Estim Creat Clear Calc 86.8 Estimated GFR > 60 Random Glucose 93 Calcium 9.2 Discharge Plan Discharge Anticipated Discharge Date/Time: 09/10/23 11:59 Patient Disposition: Xfer SNF Discharge Diagnosis: chf, pna Referrals: [facility] [Outside] - 1 Week Joseph Goins MD [Primary Care Provider] - 1 Week Discharge Medications: New doxycycline hyclate 100 mg capsule 100 mg PO BID Qty: 10 0RF furosemide 40 mg Tablet 40 mg PO BID@0900,1800 Qty: 60 0RF Protocol: Hold for SBP< HOLD for SBP < : 90 magnesium oxide 400 mg (241.3 mg magnesium) Tablet 400 mg PO BIDPC Qty: 60 0RF prednisone 20 mg Tablet 40 mg PO DAILY Qty: 10 0RF Continued acetaminophen 325 mg Tablet 650 mg PO Q6H PRN (Reason: temp > 100/general discomfort) fluticasone propion-salmeterol [Advair Diskus] 250-50 mcg/dose Blister With Device 1 inh INHALATION BID apixaban 5 mg Tablet 5 mg PO BID aspirin 81 mg Tablet,Delayed Release (Dr/Ec) 81 mg PO DAILY atorvastatin 20 mg Tablet 20 mg PO BEDTIME cholecalciferol (vitamin D3) 25 mcg (1,000 unit) Tablet 25 mcg PO DAILY guaifenesin 100 mg/5 mL Liquid 200 mg PO Q8H PRN (Reason: Cough) bisacodyl [Dulcolax (bisacodyl)] 10 mg Suppository 10 mg AZ Q3D PRN (Reason: Constipation) Patient Comments: IF NO BOWEL MOVEMENT AND MOM INEFFECTIVE lactulose 10 gram/15 mL Solution 20 g PO Q12H PRN (Reason: Constipation) Fleet Enema 19-7 gram/118 mL Enema 118 ml AZ DAILY PRN (Reason: Constipation) folic acid 1 mg Tablet 1 mg PO DAILY gabapentin 300 mg Capsule 600 mg PO TID Incruse Ellipta 62.5 mcg/actuation Blister With Device 1 inh INHALATION DAILY ipratropium-albuterol 0.5 mg-3 mg(2.5 mg base)/3 mL Solution For Nebulization 3 ml INHALATION Q6H PRN (Reason: SHORTNESS OF BREATH/WHEEZE) melatonin 3 mg Tablet 3 mg PO BEDTIME metoprolol succinate 50 mg Tablet Extended Release 24 Hr 50 mg PO BID magnesium hydroxide [Milk of Magnesia] 400 mg/5 mL Suspension 30 ml PO BEDTIME PRN (Reason: Constipation) multivitamin Tablet 1 tab PO DAILY sennosides-docusate sodium [Senna Plus] 8.6-50 mg Tablet 2 tab-cap PO BEDTIME thiamine HCl (vitamin B1) 100 mg Tablet 100 mg PO DAILY pantoprazole [Protonix] 40 mg Tablet,Delayed Release (Dr/Ec) 40 mg PO DAILY nicotine 21 mg/24 hr Patch 24 Hour 1 patch TRANSDERMAL DAILY sertraline 25 mg Tablet 25 mg PO DAILY Santyl 250 unit/gram Ointment 1 appl TOPICAL DAILY Rx Instructions: APPLY TO COCCYX albuterol sulfate [Ventolin HFA] 90 mcg/actuation Hfa Aerosol Inhaler 1 inh INHALATION QID PRN (Reason: Wheezing) oxycodone 5 mg Tablet 2.5 mg PO Q6H PRN (Reason: Pain) lorazepam 0.5 mg tablet 0.5 mg PO BID PRN (Reason: anxiety) Discontinued furosemide 40 mg Tablet 40 mg PO DAILY prednisone 20 mg Tablet 20 mg PO DAILY Qty: 3 0RF Discharge Orders: Discharge Order (Routine); Ordered 09/12/23 Ordered By: Jh Welch Diet: Advance to usual diet Activity on Discharge: As tolerated Stand Alone Forms: Patient Portal Discharge page Care Plan Goals: recovery Health Concerns: chf, pna Plan of Treatment: chf, post covid pna Assessment: see above
--- NOTE | 2023-09-10 12:47 | MHC.CM.PN ---
Pt was not able to get private transport, he will go home via [facility].
--- NOTE | 2023-09-10 13:00 | MHC.CM.PN ---
IMM 09/10/23 Pt has been medically cleared for DC, she is going to [facility] where they are holding a bed for her.
--- NOTE | 2023-09-10 13:20 | P.PNIM_ITS ---
Subjective Subjective Date of Service: 09/10/23 Interval History: le pain Physical Exam 2 Vital Signs: Vital Signs: Last Vital Signs Temp 98.0 F 09/10/23 11:46 Pulse 89 09/10/23 11:46 Resp 18 09/10/23 11:46 BP 145/70 H 09/10/23 11:46 Pulse Ox 94 09/10/23 11:46 O2 Del Method Room Air 09/10/23 11:46 O2 Flow Rate 2 09/09/23 11:44 FiO2 31 09/07/23 07:40 Oxygen Flow Rate 3 09/02/23 22:52 BMI result Body Mass Index 20.8 Const: General: cooperative, comfortable, no acute distress, alert and awake Nutritional Appearance: thin Resp: Other: expiratory rhonchi Effort & Inspection: normal respiratory effort, able to speak in complete sentences, no respiratory distress and no use of accessory muscles Cardio: Rate: regular rate GI: Inspection: No distended Palpation (GI): Soft to palpation and nontender Neuro: Other: grossly nonfocal Extrem: General: Yes no pedal edema Objective Data Active Medications Acetaminophen (Acetaminophen 325 Mg Tablet) 975 mg PO Q6H PRN PRN Reason: Pain, Mild (Pain Scale 1-3) Last Admin: 09/09/23 18:08 Dose: 975 mg Documented By: FLORIDALMA Albuterol/Ipratropium (Albuterol/Iprat 2.5/0.5mg 3 Ml Ampul.Neb) 3 ml INHALE RQ4H WHILE AWAKE PRN PRN Reason: sob Last Admin: 09/07/23 22:27 Dose: 3 ml Documented By: JULIUS Apixaban (Apixaban 5 Mg Tablet) 5 mg PO BID [facility] Last Admin: 09/10/23 09:16 Dose: 5 mg Documented By: SOCO Atorvastatin Calcium (Atorvastatin Calcium 20 Mg Tablet) 20 mg PO BEDTIME [facility] Last Admin: 09/09/23 21:53 Dose: 20 mg Documented By: FLORIDALMA Bisacodyl (Bisacodyl 10 Mg Supp.Rect) 10 mg PA Q3D PRN PRN Reason: Constipation Diltiazem HCl (Diltiazem Hcl Cd 120 Mg Cap.Er.Deg) 120 mg PO BID [facility]; Protocol Last Admin: 09/10/23 09:16 Dose: 120 mg Documented By: SOCO Fluticasone/Vilanterol (Fluticasone/Vilanterol 100/25 Blst.W.Dev) 1 puff INHALE DAILY [facility] Last Admin: 09/10/23 09:13 Dose: Not Given Documented By: RAJI Non-Admin Reason: Med Not Available Folic Acid (Folic Acid 1 Mg Tablet) 1 mg PO DAILY [facility] Last Admin: 09/10/23 09:16 Dose: 1 mg Documented By: SOCO Furosemide (Furosemide 40 Mg Tablet) 40 mg PO BID@0900,1800 [facility]; Protocol Last Admin: 09/10/23 09:16 Dose: 40 mg Documented By: SOCO Gabapentin (Gabapentin 300 Mg Capsule) 600 mg PO TID [facility] Last Admin: 09/04/23 17:25 Dose: 600 mg Documented By: STEPHENIE Guaifenesin (Guaifenesin 100 Mg/5 Ml Liquid) 10 ml PO Q8H PRN PRN Reason: Cough Last Admin: 09/04/23 05:30 Dose: 10 ml Documented By: JINA Hydroxyzine HCl (Hydroxyzine Hcl 25 Mg Tablet) 25 mg PO Q6H PRN PRN Reason: anxiety/restlessness Last Admin: 09/09/23 18:08 Dose: 25 mg Documented By: FLORIDALMA Doxycycline Hyclate 100 mg/ (Sodium Chloride) 250 mls @ 166.67 mls/hr IV BID [facility] Last Infusion: 09/10/23 10:51 Dose: Infused Documented By: SOCO Piperacillin Sod/Tazobactam (Sod 3.375 gm/ Sodium Chloride) 50 mls @ 100 mls/hr IV Q6H [facility] Lidocaine (Lidocaine 4 % Patch Adh..Patch) 1 patch TRANSDERMA DAILY [facility]; Protocol Last Admin: 09/10/23 09:17 Dose: Not Given Documented By: SOCO Non-Admin Reason: Patient Refused Magnesium Oxide (Magnesium Oxide 400 Mg Tablet) 400 mg PO BIDPC [facility] Last Admin: 09/10/23 09:16 Dose: 400 mg Documented By: SOCO Melatonin (Melatonin 3 Mg Tablet) 3 mg PO BEDTIME [facility] Last Admin: 09/09/23 21:53 Dose: 3 mg Documented By: FLORIDALMA Metoprolol Succinate (Metoprolol Succinate Er 25 Mg Tab.Er.24h) 25 mg PO BID [facility]; Protocol Last Admin: 09/10/23 09:16 Dose: 25 mg Documented By: SOCO Metoprolol Tartrate (Metoprolol Tartrate 25 Mg Tablet) 25 mg PO ONCE ONE; Protocol Stop: 09/10/23 13:19 Multivitamins/Vitamin C (Multivitamin Tablet) 1 tab PO DAILY [facility] Last Admin: 09/10/23 09:16 Dose: 1 tab Documented By: SOCO Nicotine (Nicotine 21 Mg Patch.Td24) 21 mg TRANSDERMA DAILY [facility] Last Admin: 09/10/23 09:16 Dose: 21 mg Documented By: SOCO Omeprazole (Omeprazole 20 Mg Capsule.Dr) 20 mg PO BID@0630,1630 [facility] Last Admin: 09/10/23 06:00 Dose: 20 mg Documented By: MARCO A Oxycodone HCl (Oxycodone Hcl Immed Release 5 Mg Tablet) 5 mg PO Q4H PRN PRN Reason: moderate pain Prednisone (Prednisone 20 Mg Tablet) 40 mg PO DAILY [facility] Last Admin: 09/10/23 09:16 Dose: 40 mg Documented By: SOCO Senna/Docusate Sodium (Sennosides/Docusate Sodium Tablet) 2 tab PO BEDTIME [facility] Last Admin: 09/09/23 21:53 Dose: 2 tab Documented By: FLORIDALMA Sertraline HCl (Sertraline Hcl 25 Mg Tablet) 25 mg PO DAILY [facility] Last Admin: 09/10/23 09:16 Dose: 25 mg Documented By: SOCO Sodium Chloride (0.9 % Sodium Chloride Flush 3 Ml Syringe) 3 ml IVFLUSH QSHIFT [facility] Last Admin: 09/10/23 07:03 Dose: Not Given Documented By: SOCO Non-Admin Reason: See Note Thiamine HCl (Thiamine Hcl 100 Mg Tablet) 100 mg PO DAILY [facility] Last Admin: 09/10/23 09:16 Dose: 100 mg Documented By: SOCO Tiotropium Albion (Tiotropium Albion 2.5 Mcg Inhaler) 2 puff INHALE DAILY [facility] Last Admin: 09/10/23 09:14 Dose: Not Given Documented By: RAJI Non-Admin Reason: Med Not Available Vitamin D (Cholecalciferol (Vitamin D3) 25 Mcg Tablet) 25 mcg PO DAILY [facility] Last Admin: 09/10/23 09:16 Dose: 25 mcg Documented By: SOCO Labs 09/09/23 05:32 09/10/23 07:21 Labs: Laboratory Results - last 24 hr 09/10/23 09/10/23 07:21 07:25 Hold Purple Top SEE NOTE Anion Gap 10 L Estim Creat Clear Calc 86.8 Estimated GFR > 60 Random Glucose 93 Calcium 9.2 Assessment and Plan (1) Congestive heart failure (CHF): Status: Acute (2) Hypokalemia: Status: Acute (3) Bilateral pleural effusion: Status: Acute (4) Acute exacerbation of chronic obstructive pulmonary disease: Status: Acute (5) Pneumonia: Status: Acute Plan This is a 62 y/o female with history of copd, chronic hypoxic and hypercapnic respiratory failure on 2 L home O2, unspecified atrial fibrillation on apixaban, HFpEF, pulm htn, multiple recent hospitalizations for respiratory failure related to COPD and covid 19 (tested + 08/21) who initially returned to the ED with hypoxia and sob on 09/03 and was admitted for management of sepsis secondary to COPD, with decompesation due to recent covid 19 infection as well as superimprosed bacterial pneumonia; hospital course complicated by acute on chronic heart failure requiring IV diuresis and high flow oxygen severe sepsis and acute on chronic hypoxic respiratory failure multifactorial due to COPD with acute decompensation due to recent covid 19 infection complicated by superimposed bacterial pneumonia and acute on chronic HFpEF breathing and hypoxia improving off high flow, down to baseline oxygen 2L NC pneumonia initially treated with IV rocephin, azithro(09/03/23-09/06/23) seen by ID - switched antibiotics IV doxycycline/zosyn as likely healthcare associated pneumonia given recent hospitalizations plan 10 days of abx blood cultures negative to date legionella urine antigen pending acute COPD exacerbation initially treated with IV solu-medrol, transitioned to po prednisone 09/08 will likely need prednisone taper on discharge given recurrent admissions acute on chronic HFpEF echo 09/06 with severely dilated atrium, moderately reduced RV systolic function, moderate MR, EF 50-55%; moderate pulm HTN bnp improving from [id number]. initially on lasix drip, then IV push lasix BNP overall trending down and oxygen requirements improving; overall net negative almost 5L will transition to po lasix 40 bid (on 40 daily at baseline) d/c diamox as bicarb normalized will remove ramos - voiding trial persistent afib with rvr now with rvr again continue po cardizem 120mg bid will adjust lopressor from q6h to toprol xl25 bid, if tolerates can likely resume home dose of toprol xl 50 bid on discharge digoxin stopped. AC with Eliquis hypokalemia severe: likely due to diuresis k 3.2; mag 1.8 continue po k and mag replacement follow BMP COVID 19 tested + 08/21 treated with decadron on previous admission leukocytosis wbc still elevated, appears chronically elevated may be due to steroid use moderate protein calorie malnutrition nutrition eval- continue supplements decubitus ulcer present on admission wound care following: Sacrum - Off Load Pressure - Cleanse with normal saline and pat dry. ?Apply Antifungal powder to denis-wound, lightly pack sacrum with Durafiber AG cover with sacral foam dressing. ?Change Daily, frequent repositioning, see full note for details dvt prophylaxis - justin full code attending - Dr. Owen dispo: plan to return to [facility], possibly tomorrow ongoing hospitalization need: rapid afib Quality Stroke Does the patient have a stroke diagnosis?: No VTE Prior VTE?: No VTE Risk Level:: Medical - moderate - high VTE Device Contraindication: Treatment Not Indicated VTE Drug Contraindication: N/A - Med Ordered
--- NOTE | 2023-09-10 13:26 | MHC.CM.PN ---
Pt DC is on hold per MD.
--- NOTE | 2023-09-10 13:36 | MHC.CLN ---
F/U PO INTAKE VARIABLE RANGING FROM 25-100% DIET RX: REGULAR-APPROPRIATE PT RECEIVING ENSURE MAX TID TO PROMOTE WOUND HEALING SUPP PROVIDES 450KCALS, 90G PROTEIN CONTINUE TO MONITOR PO INTAKE AND SUPPLEMENT ACCEPTANCE
[2023-09-10] MEDS: oxyCODONE HCl Immed Release 5 MG TABLET PO ×2 (13:50→21:49)
[2023-09-10] MEDS: Acetaminophen 325 MG TABLET 975 MG PO (13:50)
[2023-09-10] MEDS: Metoprolol Tartrate 25 MG TABLET PO (13:51)
[2023-09-10 15:46] VITALS: BP 137/88; PULSE 93; RESP 18; TEMP 36; O2SAT 92
--- NOTE | 2023-09-10 16:27 | P.PNID_ITS ---
Subjective Subjective Date of Service: 09/10/23 Critical Care Time (minutes): 15 Comment: she has some shortness of breath but is not on oxygen Objective Data Labs 09/09/23 05:32 09/10/23 07:21 Labs: Laboratory Results - last 24 hr 09/10/23 09/10/23 07:21 07:25 Hold Purple Top SEE NOTE Sodium 132 L Potassium 3.7 Chloride 104 Carbon Dioxide 22 Anion Gap 10 L BUN 14 Creatinine 0.47 L Estim Creat Clear Calc 86.8 Estimated GFR > 60 Random Glucose 93 Calcium 9.2 Microbiology Microbiology Results: Microbiology 09/02/23 23:16 Blood - Venous Blood Culture - Final No growth after 5 days. 09/02/23 23:16 Blood - Venous Blood Culture - Final No growth after 5 days. Physical Exam 2 Vital Signs: Vital Signs: Last Vital Signs Temp 96.8 F 09/10/23 15:46 Pulse 93 09/10/23 15:46 Resp 18 09/10/23 15:46 BP 137/88 09/10/23 15:46 Pulse Ox 92 09/10/23 15:46 O2 Del Method Room Air 09/10/23 15:46 O2 Flow Rate 2 09/09/23 11:44 FiO2 31 09/07/23 07:40 Oxygen Flow Rate 3 09/02/23 22:52 BMI result Body Mass Index 20.8 Const: General: cooperative Resp: Effort & Inspection: normal respiratory effort Cardio: Rate: regular rate Rhythm: regular rhythm GI: Inspection: Yes normal to inspection Assessment and Plan Assessment and plan (1) Bilateral pleural effusion: Status: Acute (2) Acute exacerbation of chronic obstructive pulmonary disease: Problem details: She has had five days of current antibiotics,Zosyn and Doxycycline That is enough as concern about side effects if more and just pleural effusion and no fever and this likely due to cardiac reason Leukocytosis due to steroids Would stop IV Zosyn and Doxycycline and po Doxycycline 5 days Status: Acute (3) Pneumonia: Status: Acute Time Spent With Patient Time: Total time managing care of this patient today ____ minutes.
[2023-09-10 19:12] VITALS: BP 136/87; PULSE 82; RESP 17; TEMP 36.2; O2SAT 95
[2023-09-10] MEDS: Atorvastatin Calcium 20 MG TABLET PO (21:50)
[2023-09-10] MEDS: Melatonin 3 MG TABLET PO (21:50)
[2023-09-10] MEDS: Doxycycline Monohydrate 100 MG CAPSULE PO (21:50)
[2023-09-10] MEDS: 0.9 % Sodium Chloride Flush 3 ML SYRINGE IVFLUSH (21:51)
[2023-09-10 23:34] VITALS: BP 141/74; PULSE 68; RESP 18; TEMP 36.6; O2SAT 95
[2023-09-11] VITALS (7 sets, daily range): BP systolic 115–151; BP diastolic 57–79; PULSE 57–96; RESP 18–20; TEMP 36.3–36.9; O2SAT 92–98; BMI 20.3
[2023-09-11] MEDS: Omeprazole 20 MG CAPSULE.DR PO ×2 (05:51→16:34)
[2023-09-11 07:40] LABS: Mean Corpuscular HGB Conc 32.5 g/dl (31.0-35.0); Mean Corpuscular Hemoglobin 28.6 pg (27.0-33.0); Mean Corpuscular Volume 87.9 fL (80.0-98.0); Platelet Count 402 X10*3/uL (160-400); Red Blood Count 4.55 X10*6/uL (4.20-5.50); Red Cell Distribution Width 14.6 % (11.0-16.0)
[2023-09-11 08:11] LABS: Anion Gap 13 (12-20); Blood Urea Nitrogen 16 mg/dL (9-16); Calcium 9.6 mg/dL (8.4-10.2); Carbon Dioxide 27 mmol/L (22-29); Chloride 100 mmol/L (96-108); Creatinine Clr Calc Pharmacy 88.7; Estimated Glomerular Filt Rate > 60; Glucose Fasting 82 mg/dL (60-99); Magnesium 1.8 mg/dL (1.6-2.6); Potassium 3.2 mmol/L (3.3-5.1); Sodium 137 mmol/L (135-145)
[2023-09-11] MEDS: Fluticasone/Vilanterol 100/25 BLST.W.DEV 1 PUFF INHALE (08:11)
[2023-09-11] MEDS: 0.9 % Sodium Chloride Flush 3 ML SYRINGE IVFLUSH ×3 (09:01→21:12)
[2023-09-11] MEDS: Nicotine 21 MG PATCH.TD24 TRANSDERMA (09:09)
[2023-09-11] MEDS: dilTIAZem HCL CD 120 MG CAP.ER.DEG PO ×2 (09:11→21:11)
[2023-09-11] MEDS: predniSONE 20 MG TABLET 40 MG PO (09:12)
[2023-09-11] MEDS: Thiamine HCL 100 MG TABLET PO (09:12)
[2023-09-11] MEDS: Sertraline HCL 25 MG TABLET PO (09:13)
[2023-09-11] MEDS: Metoprolol Succinate ER 25 MG TAB.ER.24H PO ×2 (09:13→21:12)
[2023-09-11] MEDS: Magnesium Oxide 400 MG TABLET PO ×2 (09:14→17:43)
[2023-09-11] MEDS: Folic Acid 1 MG TABLET PO (09:14)
[2023-09-11] MEDS: Multivitamin TABLET 1 TAB PO (09:14)
[2023-09-11] MEDS: oxyCODONE HCl Immed Release 5 MG TABLET PO ×3 (09:14→21:17)
[2023-09-11] MEDS: Apixaban 5 MG TABLET PO ×2 (09:15→21:12)
[2023-09-11] MEDS: Cholecalciferol (Vitamin D3) 25 MCG TABLET PO (09:15)
[2023-09-11] MEDS: Furosemide 40 MG TABLET PO ×2 (09:15→17:43)
[2023-09-11] MEDS: Doxycycline Monohydrate 100 MG CAPSULE PO ×2 (09:19→21:12)
--- NOTE | 2023-09-11 09:50 | P.PNIM_ITS ---
Subjective Subjective Date of Service: 09/11/23 Interval History: sob worse today Physical Exam 2 Vital Signs: Vital Signs: Last Vital Signs Temp 97.3 F 09/11/23 07:55 Pulse 91 09/11/23 08:12 Resp 20 09/11/23 08:12 BP 151/73 H 09/11/23 07:55 Pulse Ox 92 09/11/23 07:55 O2 Del Method Nasal Cannula 09/11/23 07:55 O2 Flow Rate 2 09/11/23 07:55 FiO2 31 09/07/23 07:40 Oxygen Flow Rate 3 09/02/23 22:52 BMI result Body Mass Index 20.3 Const: General: cooperative Resp: Effort & Inspection: normal respiratory effort Cardio: Rate: regular rate Rhythm: regular rhythm GI: Inspection: Yes normal to inspection Objective Data Active Medications Acetaminophen (Acetaminophen 325 Mg Tablet) 975 mg PO Q6H PRN PRN Reason: Pain, Mild (Pain Scale 1-3) Last Admin: 09/10/23 13:50 Dose: 975 mg Documented By: SOCO Albuterol/Ipratropium (Albuterol/Iprat 2.5/0.5mg 3 Ml Ampul.Neb) 3 ml INHALE RQ4H WHILE AWAKE PRN PRN Reason: sob Last Admin: 09/07/23 22:27 Dose: 3 ml Documented By: JULIUS Apixaban (Apixaban 5 Mg Tablet) 5 mg PO BID [facility] Last Admin: 09/11/23 09:15 Dose: 5 mg Documented By: BIENVENIDO Atorvastatin Calcium (Atorvastatin Calcium 20 Mg Tablet) 20 mg PO BEDTIME [facility] Last Admin: 09/10/23 21:50 Dose: 20 mg Documented By: LUKE Bisacodyl (Bisacodyl 10 Mg Supp.Rect) 10 mg WA Q3D PRN PRN Reason: Constipation Diltiazem HCl (Diltiazem Hcl Cd 120 Mg Cap.Er.Deg) 120 mg PO BID [facility]; Protocol Last Admin: 09/11/23 09:11 Dose: 120 mg Documented By: BIENVENIDO Doxycycline Monohydrate (Doxycycline Monohydrate 100 Mg Capsule) 100 mg PO Q12H [facility] Last Admin: 09/11/23 09:19 Dose: 100 mg Documented By: BIENVENIDO Fluticasone/Vilanterol (Fluticasone/Vilanterol 100/25 Blst.W.Dev) 1 puff INHALE DAILY [facility] Last Admin: 09/11/23 08:11 Dose: 1 puff Documented By: PATO Folic Acid (Folic Acid 1 Mg Tablet) 1 mg PO DAILY [facility] Last Admin: 09/11/23 09:14 Dose: 1 mg Documented By: BIENVENIDO Furosemide (Furosemide 40 Mg Tablet) 40 mg PO BID@0900,1800 [facility]; Protocol Last Admin: 09/11/23 09:15 Dose: 40 mg Documented By: BIENVENIDO Gabapentin (Gabapentin 300 Mg Capsule) 600 mg PO TID [facility] Last Admin: 09/04/23 17:25 Dose: 600 mg Documented By: STEPHENIE Guaifenesin (Guaifenesin 100 Mg/5 Ml Liquid) 10 ml PO Q8H PRN PRN Reason: Cough Last Admin: 09/04/23 05:30 Dose: 10 ml Documented By: JINA Hydroxyzine HCl (Hydroxyzine Hcl 25 Mg Tablet) 25 mg PO Q6H PRN PRN Reason: anxiety/restlessness Last Admin: 09/09/23 18:08 Dose: 25 mg Documented By: FLORIDALMA Lidocaine (Lidocaine 4 % Patch Adh..Patch) 1 patch TRANSDERMA DAILY [facility]; Protocol Last Admin: 09/11/23 09:15 Dose: Not Given Documented By: BIENVENIDO Non-Admin Reason: Patient Refused Magnesium Oxide (Magnesium Oxide 400 Mg Tablet) 400 mg PO BIDPC [facility] Last Admin: 09/11/23 09:14 Dose: 400 mg Documented By: BIENVENIDO Melatonin (Melatonin 3 Mg Tablet) 3 mg PO BEDTIME [facility] Last Admin: 09/10/23 21:50 Dose: 3 mg Documented By: LUKE Metoprolol Succinate (Metoprolol Succinate Er 25 Mg Tab.Er.24h) 25 mg PO BID [facility]; Protocol Last Admin: 09/11/23 09:13 Dose: 25 mg Documented By: BIENVENIDO Multivitamins/Vitamin C (Multivitamin Tablet) 1 tab PO DAILY [facility] Last Admin: 09/11/23 09:14 Dose: 1 tab Documented By: BIENVENIDO Nicotine (Nicotine 21 Mg Patch.Td24) 21 mg TRANSDERMA DAILY [facility] Last Admin: 09/11/23 09:09 Dose: 21 mg Documented By: BIENVENIDO Omeprazole (Omeprazole 20 Mg Capsule.) 20 mg PO BID@0630,8950 [facility] Last Admin: 09/11/23 05:51 Dose: 20 mg Documented By: LUKE Oxycodone HCl (Oxycodone Hcl Immed Release 5 Mg Tablet) 5 mg PO Q4H PRN PRN Reason: moderate pain Last Admin: 09/11/23 09:14 Dose: 5 mg Documented By: BIENVENIDO Prednisone (Prednisone 20 Mg Tablet) 40 mg PO DAILY [facility] Last Admin: 09/11/23 09:12 Dose: 40 mg Documented By: BIENVENIDO Senna/Docusate Sodium (Sennosides/Docusate Sodium Tablet) 2 tab PO BEDTIME [facility] Last Admin: 09/10/23 22:18 Dose: Not Given Documented By: LUKE Non-Admin Reason: Med Not Available Sertraline HCl (Sertraline Hcl 25 Mg Tablet) 25 mg PO DAILY [facility] Last Admin: 09/11/23 09:13 Dose: 25 mg Documented By: BIENVENIDO Sodium Chloride (0.9 % Sodium Chloride Flush 3 Ml Syringe) 3 ml IVFLUSH QSHIFT [facility] Last Admin: 09/11/23 09:01 Dose: 3 ml Documented By: BIENVENIDO Thiamine HCl (Thiamine Hcl 100 Mg Tablet) 100 mg PO DAILY [facility] Last Admin: 09/11/23 09:12 Dose: 100 mg Documented By: BIENVENIDO Tiotropium [place] (Tiotropium [place] 2.5 Mcg Inhaler) 2 puff INHALE DAILY [facility] Last Admin: 09/11/23 08:11 Dose: 2 puff Documented By: PATO Vitamin D (Cholecalciferol (Vitamin D3) 25 Mcg Tablet) 25 mcg PO DAILY [facility] Last Admin: 09/11/23 09:15 Dose: 25 mcg Documented By: BIENVENIDO Labs 09/11/23 07:05 09/11/23 07:05 Labs: Laboratory Results - last 24 hr 09/11/23 07:05 MCV 87.9 MCH 28.6 MCHC 32.5 RDW 14.6 Plt Count 402 H MPV 10.0 Absolute Nucleated RBC 0.000 Nucleated RBC % (auto) 0.0 Anion Gap 13 Estim Creat Clear Calc 88.7 Estimated GFR > 60 Fasting Glucose 82 Calcium 9.6 Magnesium 1.8 Assessment and Plan (1) Congestive heart failure (CHF): Status: Acute (2) Hypokalemia: Status: Acute (3) Bilateral pleural effusion: Status: Acute (4) Acute exacerbation of chronic obstructive pulmonary disease: Status: Acute (5) Pneumonia: Status: Acute Plan This is a 62 y/o female with history of copd, chronic hypoxic and hypercapnic respiratory failure on 2 L home O2, unspecified atrial fibrillation on apixaban, HFpEF, pulm htn, multiple recent hospitalizations for respiratory failure related to COPD and covid 19 (tested + 08/21) who initially returned to the ED with hypoxia and sob on 09/03 and was admitted for management of sepsis secondary to COPD, with decompesation due to recent covid 19 infection as well as superimprosed bacterial pneumonia; hospital course complicated by acute on chronic heart failure requiring IV diuresis and high flow oxygen severe sepsis and acute on chronic hypoxic respiratory failure multifactorial due to COPD with acute decompensation due to recent covid 19 infection complicated by superimposed bacterial pneumonia and acute on chronic HFpEF breathing and hypoxia improving off high flow, down to baseline oxygen 2L NC pneumonia initially treated with IV rocephin, azithro(09/03/23-09/06/23) seen by ID - switched antibiotics IV doxycycline/zosyn as likely healthcare associated pneumonia given recent hospitalizations 5 more days po doxy acute COPD exacerbation initially treated with IV solu-medrol, transitioned to po prednisone 09/08 will likely need prednisone taper on discharge given recurrent admissions acute on chronic HFpEF echo 09/06 with severely dilated atrium, moderately reduced RV systolic function, moderate MR, EF 50-55%; moderate pulm HTN bnp improving from [id number]. initially on lasix drip, then IV push lasix BNP overall trending down and oxygen requirements improving; overall net negative almost 5L will transition to po lasix 40 bid (on 40 daily at baseline) d/c diamox as bicarb normalized persistent afib with rvr now with rvr again continue po cardizem 120mg bid increase toprol digoxin stopped. AC with Eliquis hypokalemia severe: likely due to diuresis k 3.2; mag 1.8 continue po k and mag replacement follow BMP COVID 19 tested + 08/21 treated with decadron on previous admission leukocytosis wbc still elevated, appears chronically elevated may be due to steroid use moderate protein calorie malnutrition nutrition eval- continue supplements decubitus ulcer present on admission wound care following: Sacrum - Off Load Pressure - Cleanse with normal saline and pat dry. ?Apply Antifungal powder to denis-wound, lightly pack sacrum with Durafiber AG cover with sacral foam dressing. ?Change Daily, frequent repositioning, see full note for details dvt prophylaxis - eliquis full code ongoing hospitalization need: rapid afib Quality Stroke Does the patient have a stroke diagnosis?: No VTE Prior VTE?: No VTE Risk Level:: Medical - moderate - high VTE Device Contraindication: Treatment Not Indicated VTE Drug Contraindication: N/A - Med Ordered
[2023-09-11] MEDS: Potassium Chloride ER 20 MEQ TAB.ER.PRT 40 MEQ PO (10:04)
[2023-09-11] MEDS: Metoprolol Tartrate 25 MG TABLET PO (10:04)
[2023-09-11] MEDS: Sennosides/Docusate Sodium TABLET 2 TAB PO (21:11)
[2023-09-11] MEDS: Atorvastatin Calcium 20 MG TABLET PO (21:12)
[2023-09-11] MEDS: Melatonin 3 MG TABLET PO (21:12)
[2023-09-11] MEDS: guaiFENesin 100 MG/5 ML LIQUID 10 ML PO (21:34)
[2023-09-12 03:34] LABS: Legionella Ag Urine Not Detected (Not Detected)
[2023-09-12 03:58] VITALS: BP 125/64; PULSE 79; RESP 18; TEMP 36.6; O2SAT 96
[2023-09-12] MEDS: oxyCODONE HCl Immed Release 5 MG TABLET PO ×2 (04:25→13:59)
[2023-09-12] MEDS: Omeprazole 20 MG CAPSULE.DR PO (05:52)
[2023-09-12 06:00] VITALS: BMI 19.9
[2023-09-12] MEDS: Fluticasone/Vilanterol 100/25 BLST.W.DEV 1 PUFF INHALE (07:37)
[2023-09-12 08:00] VITALS: BP 117/57; PULSE 94; RESP 20; TEMP 36.3; O2SAT 97
[2023-09-12 08:06] LABS: Hematocrit 38.7 % (37.0-47.0); Hemoglobin 12.3 g/dl (12.0-16.0); Mean Corpuscular HGB Conc 31.8 g/dl (31.0-35.0); Mean Corpuscular Hemoglobin 29.1 pg (27.0-33.0); Mean Corpuscular Volume 91.5 fL (80.0-98.0); Mean Platelet Volume 10.1 fL (9.4-12.3); Platelet Count 365 X10*3/uL (160-400); Red Blood Count 4.23 X10*6/uL (4.20-5.50); Red Cell Distribution Width 15.3 % (11.0-16.0); White Blood Count 25.2 X10*3/uL (4.8-10.8)
[2023-09-12 08:20] LABS: Anion Gap 13 (12-20); Blood Urea Nitrogen 28 mg/dL (9-16); Calcium 9.6 mg/dL (8.4-10.2); Carbon Dioxide 29 mmol/L (22-29); Chloride 100 mmol/L (96-108); Creatinine Clr Calc Pharmacy 72.8; Estimated Glomerular Filt Rate > 60; Glucose Fasting 178 mg/dL (60-99); Magnesium 1.7 mg/dL (1.6-2.6); Potassium 3.9 mmol/L (3.3-5.1); Sodium 138 mmol/L (135-145)
[2023-09-12 08:21] LABS: B Type Natriuretic Peptide 205 pg/mL (<100)
[2023-09-12] MEDS: Metoprolol Succinate ER 25 MG TAB.ER.24H PO (09:17)
[2023-09-12] MEDS: 0.9 % Sodium Chloride Flush 3 ML SYRINGE IVFLUSH (09:17)
[2023-09-12] MEDS: Folic Acid 1 MG TABLET PO (09:18)
[2023-09-12] MEDS: dilTIAZem HCL CD 120 MG CAP.ER.DEG PO (09:18)
[2023-09-12] MEDS: Furosemide 40 MG TABLET PO (09:18)
[2023-09-12] MEDS: predniSONE 20 MG TABLET 40 MG PO (09:19)
[2023-09-12] MEDS: Doxycycline Monohydrate 100 MG CAPSULE PO (09:19)
[2023-09-12] MEDS: Thiamine HCL 100 MG TABLET PO (09:20)
[2023-09-12] MEDS: Apixaban 5 MG TABLET PO (09:20)
[2023-09-12] MEDS: Sertraline HCL 25 MG TABLET PO (09:20)
[2023-09-12] MEDS: Cholecalciferol (Vitamin D3) 25 MCG TABLET PO (09:20)
[2023-09-12] MEDS: Magnesium Oxide 400 MG TABLET PO (09:20)
[2023-09-12] MEDS: Multivitamin TABLET 1 TAB PO (09:21)
[2023-09-12] MEDS: Nicotine 21 MG PATCH.TD24 TRANSDERMA (09:25)
[2023-09-12] MEDS: hydrOXYzine HCL 25 MG TABLET PO (09:27)
--- NOTE | 2023-09-12 11:08 | MHC.CM.PN ---
MD order for D/C to SNF; transport set for 15:00 D/C return to [facility]. Updates sent. Facility in agreement.
[2023-09-12 11:25] VITALS: BP 180/81; PULSE 97; RESP 20; TEMP 36.2; O2SAT 95
[2023-09-12] MEDS: Metoprolol Tartrate 5 MG/5 ML VIAL IVPUSH (12:33)
== END 2023-09-12 15:38 | disposition skilled nursing facility (03) | DRG 871 ==
LOC: HO.ED 09-03 02:04 → HO.EDOVER 09-03 02:26 → HO.IMC 09-03 07:58
PROVIDERS: Internal Medicine; Physician Assistant Medical; Admitting Provider Internal Medicine; Emergency Provider Emergency Medicine Emergency Medical Services; PCP Family Medicine; Visit Provider Internal Medicine
DX: A41.9 Sepsis, unspecified organism (principal); I50.33 Acute on chronic diastolic (congestive) heart failure; J15.9 Unspecified bacterial pneumonia; U07.1 COVID-19; J44.0 Chronic obstructive pulmonary disease with (acute) lower respiratory infection; J44.1 Chronic obstructive pulmonary disease with (acute) exacerbation; I48.19 Other persistent atrial fibrillation; E44.0 Moderate protein-calorie malnutrition; Z68.1 Body mass index [BMI] 19.9 or less, adult; I27.29 Other secondary pulmonary hypertension; I50.813 Acute on chronic right heart failure; L89.150 Pressure ulcer of sacral region, unstageable; R65.20 Severe sepsis without septic shock; E87.6 Hypokalemia; Z99.81 Dependence on supplemental oxygen; Z87.891 Personal history of nicotine dependence; Z79.01 Long term (current) use of anticoagulants; Z79.51 Long term (current) use of inhaled steroids; Z79.899 Other long term (current) drug therapy
CPT/HCPCS: 0241U; 36415; 36600; 71045; 71250; 80048; 80053; 81001; 82803; 83605; 83690; 83735; 83880; 84132; 84145; 84484; 85007; 85027; 85610; 85730; 87040; 87449; 87640; 87641; 93005; 93306; 94640; 99285; C1758; J0456; J0696; J1100; J1160; J1885; J1940; J2060; J2405; J2543; J2920; J3010; J3475; P9047; Q9957

== ENCOUNTER 2023-09-03 02:23 | Outpatient (BNV) | payer MEDICARE, MEDICAID, SELFPAY | END 2023-09-06 07:00 | PROVIDERS: Admitting Provider Internal Medicine; Emergency Provider Emergency Medicine Emergency Medical Services; PCP Family Medicine; Visit Provider Internal Medicine Cardiovascular Disease | DX: I35.1 Nonrheumatic aortic (valve) insufficiency (principal); I34.0 Nonrheumatic mitral (valve) insufficiency | CPT/HCPCS: 93306 ==

== ENCOUNTER → 2023-09-03 02:23 | Outpatient (BNV) | payer MEDICARE, MEDICAID, SELFPAY | PROVIDERS: Admitting Provider Internal Medicine; Emergency Provider Emergency Medicine Emergency Medical Services; PCP Family Medicine; Visit Provider Internal Medicine Cardiovascular Disease | DX: J96.01 Acute respiratory failure with hypoxia (principal); I48.91 Unspecified atrial fibrillation | CPT/HCPCS: 99222; 99232; 99233 ==

== ENCOUNTER → 2023-09-03 02:23 | Outpatient (BNV) | payer MEDICARE, MEDICAID, SELFPAY | PROVIDERS: Admitting Provider Internal Medicine; Emergency Provider Emergency Medicine Emergency Medical Services; PCP Family Medicine; Visit Provider Internal Medicine Pulmonary Disease | DX: I48.20 Chronic atrial fibrillation, unspecified (principal); J96.01 Acute respiratory failure with hypoxia; J44.9 Chronic obstructive pulmonary disease, unspecified | CPT/HCPCS: 99222; 99232 ==

== ENCOUNTER → 2023-09-03 02:23 | Outpatient (BNV) | payer MEDICARE, MEDICAID, SELFPAY | PROVIDERS: Admitting Provider Internal Medicine; Emergency Provider Emergency Medicine Emergency Medical Services; PCP Family Medicine; Visit Provider Internal Medicine | DX: I50.9 Heart failure, unspecified (principal); E87.6 Hypokalemia; J90 Pleural effusion, not elsewhere classified; J44.1 Chronic obstructive pulmonary disease with (acute) exacerbation; J18.9 Pneumonia, unspecified organism | CPT/HCPCS: 99223; 99231; 99232; 99233; 99239; 99499 ==

== ENCOUNTER → 2023-09-03 02:23 | Outpatient (BNV) | payer MEDICARE, MEDICAID, SELFPAY | PROVIDERS: Admitting Provider Internal Medicine; Emergency Provider Emergency Medicine Emergency Medical Services; PCP Family Medicine; Visit Provider Internal Medicine | DX: J90 Pleural effusion, not elsewhere classified (principal); J44.1 Chronic obstructive pulmonary disease with (acute) exacerbation; J18.9 Pneumonia, unspecified organism | CPT/HCPCS: 99222; 99232; 99499 ==

== ENCOUNTER 2023-09-13 06:36 | Outpatient (REF) | payer MEDICARE, MEDICAID, SELFPAY ==
[2023-09-13 06:19] LABS: MANUAL DIFF FLAG NO
[2023-09-13 07:09] LABS: Basophils Absolute Auto 0.1 X10*3/uL (0.0-0.2); Basophils Percent Auto 0.3 % (0-2); Eosinophils Percent Auto 0.1 % (0-4); Hematocrit 33.7 % (37.0-47.0); Hemoglobin 10.9 g/dl (12.0-16.0); Imm Gran Abs Auto 0.55 X10*3/uL (0.00-0.03); Imm Gran Pct Auto 2.7 % (0.0-0.4); Lymphocytes Absolute Auto 0.6 X10*3/uL (1.2-4.9); Mean Corpuscular HGB Conc 32.3 g/dl (31.0-35.0); Mean Corpuscular Hemoglobin 28.7 pg (27.0-33.0); Mean Corpuscular Volume 88.7 fL (80.0-98.0); Mean Platelet Volume 10.4 fL (9.4-12.3); Monocytes Absolute Auto 1.1 X10*3/uL (0.1-1.2); Monocytes Percent Auto 5.3 % (2-11); Neutrophils Percent Auto 88.6 % (45-73); Platelet Count 348 X10*3/uL (160-400); Red Cell Distribution Width 14.9 % (11.0-16.0); White Blood Count 20.3 X10*3/uL (4.8-10.8)
[2023-09-13 07:22] LABS: Anion Gap 15 (12-20); Blood Urea Nitrogen 21 mg/dL (9-16); Calcium 9.3 mg/dL (8.4-10.2); Carbon Dioxide 30 mmol/L (22-29); Chloride 94 mmol/L (96-108); Estimated Glomerular Filt Rate > 60; Glucose Random 121 mg/dL (60-115); Potassium 3.4 mmol/L (3.3-5.1); Sodium 136 mmol/L (135-145)
== END 2023-09-13 06:37 | disposition home or self-care (01) ==
LOC: HO.MMNH1L 06:36
PROVIDERS: Visit Provider Family Medicine
DX: M62.59 Muscle wasting and atrophy, not elsewhere classified, multiple sites (principal); J96.21 Acute and chronic respiratory failure with hypoxia
CPT/HCPCS: 36415; 80048; 85025